=== PATIENT | female | born 1955 | race Caucasian/White ===

== ENCOUNTER 2018-02-11 04:23 | Emergency (ER) | payer OTHER ==
--- OUTSIDE RECORDS SUMMARY | 2018-02-11 04:25 | XMS REPORT ---
:1955 [facility] [address] [place] [address] Care Team Providers Name Role Phone Lopez Nicole Unavailable Unavailable Problems This patient has no known problems. Allergies, Adverse Reactions, Alerts This patient has no known allergies or adverse reactions. Medications This patient has no known medications. Results Test Description Test Time Test Comments Text Results Atomic Results Result Comments Reference Lab Testing 2018-01-10 14:16:00 Test Item Value Reference Range Comments Reference Lab Testing (test Negative Negative Performed at: [facility] code=HELIAG) [address] [id number] Director: Chu Jenkins MD, Phone: [phone] [id number] SURGICAL PATHOLOGY, LEVEL [id number] 13:33:[address] [address] Tel: Laboratory Printed : 01/10/18 1333 BKG DAEMPathology Page: 1 Patient: CORNELIO RUFFIN Birthdate: 1955 Age/Sex: 62/F Spec#: [id number]: Tyrell Patino MD Specimen Date: 01/07/18 Received Date: 01/07/18 Specimen: POLYP, COLON CLINICAL DIAGNOSIS anemia PATHOLOGIC DIAGNOSIS Cecal polyp, polypectomy: - Tubular adenoma. Comment:There is no high grade dysplasia or malignancy present. Pathologist:Crystal Brumfield MD Entered by:01/10/18 - 4856 TIMAGP PROCEDURES: [id number] GROSS DESCRIPTION A. POLYP,COLON CECUM The specimen is received in 10% formalin, and is labeled with the patient's name and "cecumcolon polyp." The specimen consists of two pink-pino soft tissue fragments measuring 1.2 x0.8 x 0.5 cm in aggregate. The largest fragment bisected. The specimen is entirelysubmitted in one cassette. Dictated by: Tina Kimball Entered by: 01/07/18 - 1318 YGP Patient: CORNELIO RUFFIN ReLoc: T4-A MR#: [id number] CONTINUED ON NEXT PAGE Dis: 01/08/18ta: DIS IN [address] [address] Laboratory Printed: 01/10/[address] [place] [address] DAEMPathology Page: 2 Patient : CORNELIO RUFFIN [id number] (Continued) GROSS DESCRIPTION (Continued) MICROSCOPIC DESCRIPTION A microscopic examination was performed to arrive at the diagnostic conclusion reported. Signed ( Electronically Signed) Crystal Brumfield MD 01/10/18 ------ ------ Patient: CORNELIO RUFFIN ReLoc: T4-A MR#: [id number] END OF REPORT Dis: 01/08/18ta: DIS FUPgwjlhedu1166-36-57 11:30:00 Test Item Value Reference Range Comments Chemistry (test 142 mmol/L 136-145 code=NA-T) Chemistry (test 3.6 mmol/L 3.5-5.1 code=K-T) Chemistry (test code=CL) 104 mmol/L 98-107 Chemistry (test 27 mmol/L 23-31 code=CO2) Chemistry (test 15 mmol/L 10-20 code=ANGP) Chemistry (test Less than 4 mg/dL 9.8-20.1 code=BUN) Chemistry (test 0.82 mg/dL 0.6-1.1 code=CREATT) Chemistry (test 71 Reference Range for code=EGFRMDRD) Estimated GFR: Greater than 90 mL/min/1.73 m2NOTE:The MDRD equation has not been validated for use with theelderly (over 70 years of age), women, patientswith serious comorbid condition or persons with extremes ofbody size, muscle mass, or nutritional status. Chemistry (test 143 mg/dL 80-115 code=GLU-T) Chemistry (test code=CA) 8.9 mg/dL 7.8-10.44 Iiertnnud1730-32-62 06:56:00 Test Item Value Reference Range Comments Chemistry (test code=MG) 1.8 mg/dL 1.6-2.6 Comment Add to AM labsComment Add to AM klokMiykzaits1786-07-00 06:56:00 Test Item Value Reference Range Comments Chemistry (test code=CHOL) 184 mg/dl < 200 Desired Chemistry (test code=TRIG) 126 mg/dL Less than 150 Chemistry (test code=HDL) 43 mg/dL >60 Neg Risk Adult HDL levels in terms of risk for Coronary Heart Disease > or Equal to 60 mg/dL Negative Risk < 40 mg/dL HIGH Risk Chemistry (test code=LDL) 116 mg/dL Levels in terms of risk for coronary heart disease: Desirable: Less than 130 mg/dL Borderline High Risk: 130 - 159 mg/dL High Risk: Greater than 160 mg/dL Chemistry (test code=CRISK) 4.3 Less than 4.5 Adult levels in terms of risk for Coronary Heart Disease: Dangerous level: Greater than 8.3 High: 5.6 - 8.3 Average: 3.7 - 5.6 Below average: 2.5 - 3.7 Protection probable: Less than 2.5 Comment Add to AM labsComment Add to AM [id number] 04:30:00 Test Item Value Reference Range Comments Hematology (test code=WBCT) 8.7 thou/uL 4.8-10.8 Hematology (test code=RBCT) 4.24 mill/uL 4.20-5.40 Hematology (test code=HGBT) 8.8 g/dL 12.0-16.0 Hematology (test code=HCTT) 29.4 % 36.0-47.0 Hematology (test code=MCV) 69.3 fl 81.0-99.0 Hematology (test code=MCH) 20.7 pg 27.0-31.0 Hematology (test code=MCHC) 29.8 g/dL 32.0-36.0 Hematology (test code=RDW) 22.6 % 11.5-14.5 Hematology (test code=PLTT) 323 thou/uL 130-400 Hematology (test code=MPV) 5.3 fL 7.4-10.4 Hematology (test code=%NEUT) 73.0 % 42.0-75.0 Hematology (test code=%LYMPH) 18.8 % 21.0-51.0 Hematology (test code=%MONO) 7.1 % 0.0-10.0 Hematology (test code=%EOS) 0.1 % 0.0-10.0 Hematology (test code=%BASO) 1.0 % 0.0-1.0 Hematology (test code=NEUT#) 6.3 thou/uL 1.40-6.50 Hematology (test code=LYMPH#) 1.6 thou/uL 1.20-3.40 Hematology (test code=MONO#) 0.6 thou/uL 0.11-0.59 Hematology (test code=EOS#) 0.0 thou/uL 0.0-0.7 Hematology (test code=BASO#) 0.1 thou/uL 0.0-0.2 [id number] 04:24:00 Test Item Value Reference Range Comments Chemistry (test PARAM.JRT@0424 Refer to Critical Value code=CCC) designated by an *L or *H Chemistry (test 142 mmol/L 136-145 code=NA-T) Chemistry (test 2.9 mmol/L 3.5-5.1 Critical Value! code=K-T) Chemistry (test code=CL) 104 mmol/L 98-107 Chemistry (test 28 mmol/L 23-31 code=CO2) Chemistry (test 13 mmol/L 10-20 code=ANGP) Chemistry (test Less than 4 mg/dL 9.8-20.1 code=BUN) Chemistry (test 0.74 mg/dL 0.6-1.1 code=CREATT) Chemistry (test 80 Reference Range for code=EGFRMDRD) Estimated GFR: Greater than 90 mL/min/1.73 m2NOTE:The MDRD equation has not been validated for use with theelderly (over 70 years of age), women, patientswith serious comorbid condition or persons with extremes ofbody size, muscle mass, or nutritional status. Chemistry (test 89 mg/dL 80-115 code=GLU-T) Chemistry (test code=CA) 8.9 mg/dL 7.8-10.44 Xfgbidlspc2967-78-66 15:26:00 Test Item Value Reference Range Comments Hematology (test code=HGBT) 8.8 g/dL 12.0-16.0 Hematology (test code=HCTT) 29.5 % 36.0-47.0 [id number] SURGICAL PATHOLOGY, LEVEL [id number] 14:22:00 [place] [address] Tel: Laboratory Printed : 01/07/18 1423 [facility] DAEMPathology Page: 1 Patient: CORNELIO RUFFIN Birthdate: 1955 Age/Sex: 62/F Spec#: [id number]: Tyrell Patino MD Specimen Date: 01/06/18 Received Date: 01/06/18 Specimen: GASTRIC BIOPSY CLINICAL DIAGNOSIS anemia PATHOLOGIC DIAGNOSIS A. Stomach, NOS, endoscopic biopsy: - Mild chronic inactive gastritis. - No Helicobacter pylori organisms identified. Comment: No Helicobacter pylori organisms are identified on Diff-Quik special stainperformed with adequate control. B. Esophagus, NOS, endoscopic biopsy: - Mild active esophagitis, consistent with gastroesophageal reflux. - No Fuchs's specialized columnar epithelium identified. - Unremarkable gastric mucosa. Comment: A PAS/Alcian Blue stain with adequate control is negative for fungal organisms andconfirms the absence of intestinal metaplasia. Pathologist: Mike Green MD Entered by:01/07/18 - 1117 LAB.YGP PROCEDURES: 81143/2,62029/2, [address]48[address] Patient: CORNELIO RUFFIN Re01/05/18Loc:T4-A MR#: [id number] CONTINUED ON NEXT PAGE Dis: Sta: ADM IN [address] [address] Tel: Laboratory [facility]ed: [facility]: 2 --------- --- Patient: AUGUSTINCORNELIO [id number] (Continued)------ ------ GROSS DESCRIPTION A. GASTRIC BIOPSY The specimen is received in 10% formalin, and is labeled with the patient's name and"gastric biopsy." The specimen consists of two pink-pino soft tissue fragments measuring 0.4cm in aggregate. The specimen is entirely submitted in cassette A. B. ESOPHAGEAL BIOPSY The specimen is received in 10 % formalin, and is labeled with the patient's name and"esophagus biopsy." The specimen consists oftwo pink-pino soft tissue fragments measuring0.6 cm in aggregate. The specimen is entirely submittedin cassette B. Dictated by: Tina Kimball Entered by: 01/06/18 - 4769 [facility].YGP MICROSCOPIC DESCRIPTION A microscopic examination was performed to arrive at the diagnostic conclusion reported. Signed (Electronically Signed) Mike Green MD 01/07/18 Patient : CORNELIO RUFFIN Re01/05/18Loc: T4- A MR#: [id number] END OF REPORT Dis: Sta: ADMINChemistry - Benji [id number] 13:00:00 Test Item Value Reference Range Comments Chemistry - Benji POSITIVE Negative Testing (test code=ANASC) Chemistry - Benji Negative Negative SYMPHONY SCREEN INCLUDES: Testing (test LONGO, SS-A/Ro, SS-B/La, code=ANASYM) U1RNP,RNP70, SCL-70, CENP, Chela-1 Chemistry - Benji 0.10 Ratio <0.7 Negative Testing (test code=ANASYMQUANT) Chemistry - Benji 120.0 IU/mL <10 Negative Testing (test code=DSDNAIGG) Chemistry - Benji dsDNA Less than Testing (test 10.0 IU/mL=Negative code=DSDNAINTERP) 10.0 - 15.0 IU/mL=Equivocal Greater than 15.0 IU/mL=POSITIVE Chemistry - Benji NEW METHOD Values obtained with Testing (test different assay methods code=ELIAANANEWMETH) CANNOT be usedINTERCHANGEABLY.If in the course of monitoring a patient, the assay methodused for determining levels is changed, a newbaseline/serial monitoring may need to be performed.SEE REFERENCE RANGES FOR NEW METHODOLOGY.Method: Enzyme Linked Fluorescent Immunoassay (Benji)References: [employer] Benji Package Inserts - Directions for, September,October 2016, [place]. Chemistry - Benji Fhukfkf4264-60-56 13:00:00 Test Item Value Reference Range Comments Chemistry - Benji Testing 0.6 U/mL <4 Negative (test code=M2T) Chemistry - Benji Testing Less than 4.0 (test qklr=WOPNJUH892) U/mL=Negative 4.0 - 6.0 U/mL=Equivocal Greater than 6.0 U/mL=POSITIVE Chemistry - Benji Testing NEW METHOD Values obtained with (test code=ELIAVASNEW) different assay methods CANNOT be usedINTERCHANGEABLY.If in the course of monitoring a patient, the assay methodused for determining levels is changed, a newbaseline/serial monitoring may need to be performed.SEE REFERENCE RANGES FOR NEW METHODOLOGY.Method: Enzyme Linked Fluorescent Immunoassay (Benji)References: [employer] Benji Package Inserts - Directions for, September,October 2016, [place]. Chemistry - Benji Testing 0.6 U/mL <4 Negative (test code=M2T) Chemistry - Benji Testing Less than 4.0 (test wncv=JIEYSMD511) U/mL=Negative 4.0 - 6.0 U/mL=Equivocal Greater than 6.0 U/mL=POSITIVE Chemistry - Benji Testing NEW METHOD Values obtained with (test code=ELIAVASNEW) different assay methods CANNOT be usedINTERCHANGEABLY.If in the course of monitoring a patient, the assay methodused for determining levels is changed, a newbaseline/serial monitoring may need to be performed.SEE REFERENCE RANGES FOR NEW METHODOLOGY.Method: Enzyme Linked Fluorescent Immunoassay (Benji)References: [employer] Benji Package Inserts - Directions forUse, September, October 2016, [place]. Chemistry - Benji [id number] 13:00:00 Test Item Value Reference Range Comments Chemistry - Benji Testing CENP, Chela-1, RNP70, (test code=ELIAANAINTERP) Scl-70, Longo, SSA/Ro, SSB/La IgGAntibodies: Less than 7.0 Benji U/mL=Negative 7.0 - 10.0 Benji U/mL=Equivocal Greater than 10.0 Benji U/mL=TIPEOXTUR9YDQ IgG: Less than 5.0 Benji U/mL=Negative 5.0 - 10.0 Benji U/mL=Equivocal Greater than 10.0 Benji U/mL=POSITIVE Chemistry - Benji [id number] 12:38:00 Test Item Value Reference Range Comments Chemistry - Benji Testing (test code=CELTTGIGA) 0.4 EliAU/mL <7 Negative Comment add onChemistry - Benji [id number] 12:38:00 Test Item Value Reference Range Comments Chemistry - Benji Testing (test code=CELTTGIGG) 0.6 EliAU/mL <7 Negative Comment add onChemistry - Benji [id number] 12:38:00 Test Item Value Reference Range Comments Chemistry - Benji Testing Less than (test zrkt=OANVDQQ934) 7.0 Benji U/mL=Negative 7.0 - 10.0 Benji U/mL=Equivocal Greater than 10.0 Benji U/mL=POSITIVE Comment add onChemistry - [id number] 12:33:00 Test Item Value Reference Range Comments Chemistry - Specials (test Non-Reactive NonReactive The panel screens for HIV-1 code=HIVT) p24 Antigen HIV-1/HIV-2Antibody. Vsjnltsxpz0664-28-55 10:27:00 Test Item Value Reference Range Comments Immunology (test code=SYPHABT) Nonreactive Nonreactive Kjmtfqggtw3523-09-15 10:25:00 Test Item Value Reference Range Comments Hematology (test code=WBCT) 8.1 thou/uL 4.8-10.8 Hematology (test code=RBCT) 4.12 mill/uL 4.20-5.40 Hematology (test code=HGBT) 8.5 g/dL 12.0-16.0 Hematology (test code=HCTT) 28.9 % 36.0-47.0 Hematology (test code=MCV) 70.1 fl 81.0-99.0 Hematology (test code=MCH) 20.6 pg 27.0-31.0 Hematology (test code=MCHC) 29.4 g/dL 32.0-36.0 Hematology (test code=RDW) 22.4 % 11.5-14.5 Hematology (test code=PLTT) 315 thou/uL 130-400 Hematology (test code=MPV) 5.7 fL 7.4-10.4 Hematology (test code=%NEUT) 66.6 % 42.0-75.0 Hematology (test code=%LYMPH) 24.7 % 21.0-51.0 Hematology (test code=%MONO) 8.1 % 0.0-10.0 Hematology (test code=%EOS) 0.4 % 0.0-10.0 Hematology (test code=%BASO) 0.2 % 0.0-1.0 Hematology (test code=NEUT#) 5.4 thou/uL 1.40-6.50 Hematology (test code=LYMPH#) 2.0 thou/uL 1.20-3.40 Hematology (test code=MONO#) 0.7 thou/uL 0.11-0.59 Hematology (test code=EOS#) 0.0 thou/uL 0.0-0.7 Hematology (test code=BASO#) 0.0 thou/uL 0.0-0.2 Hematology (test code=OH) MODERATE=15-30 cells (100X) 0-5/hpf Hematology (test code=HYPO) MODERATE=16-30 cells (100X) 0-5/hpf Hematology (test code=POLY) SLIGHT=2-3 cells (100X) 0-2/hpf Hematology (test code=OV) MODERATE=6-15 cells (100X) 0-1/hpf Hematology (test code=PCOMMENT) Appears Adequate Urhetgcxy0551-13-13 10:07:00 Test Item Value Reference Range Comments Chemistry (test code=NA-T) 141 mmol/L 136-145 Chemistry (test code=K-T) 3.2 mmol/L 3.5-5.1 Chemistry (test code=CL) 105 mmol/L 98-107 Chemistry (test code=CO2) 28 mmol/L 23-31 Chemistry (test code=ANGP) 11 mmol/L 10-20 Chemistry (test code=BUN) 4 mg/dL 9.8-20.1 Chemistry (test code=CREATT) 0.72 mg/dL 0.6-1.1 Chemistry (test 82 Reference Range for Estimated code=EGFRMDRD) GFR: Greater than 90 mL/min/1.73 m2NOTE:The MDRD equation has not been validated for use with theelderly (over 70 years of age), women, patientswith serious comorbid condition or persons with extremes ofbody size, muscle mass, or nutritional status. Chemistry (test code=GLU-T) 79 mg/dL 80-115 Chemistry (test code=CA) 8.6 mg/dL 7.8-10.44 Occult Blood, Stool SCREEN (3)2018-01-06 17:56:00 Test Item Value Reference Range Comments Occult Blood, Stool SCREEN (3) (test code=OCCSTS) IFOB Occult Blood, Stool SCREEN (3) (test code=OCCSTS1) N Comment [id number] 16:59:00 Test Item Value Reference Range Comments Hematology (test code=WBCT) 9.1 thou/uL 4.8-10.8 Hematology (test code=RBCT) 3.97 mill/uL 4.20-5.40 Hematology (test code=HGBT) 8.2 g/dL 12.0-16.0 Hematology (test code=HCTT) 27.7 % 36.0-47.0 Hematology (test code=MCV) 69.9 fl 81.0-99.0 Hematology (test code=MCH) 20.7 pg 27.0-31.0 Hematology (test code=MCHC) 29.6 g/dL 32.0-36.0 Hematology (test code=RDW) 22.3 % 11.5-14.5 Hematology (test code=PLTT) 311 thou/uL 130-400 Hematology (test code=MPV) 10.9 fL 7.4-10.4 Chemistry - Dnipabgb2483-72-60 13:59:00 Test Item Value Reference Range Comments Chemistry - Specials (test Non-Reactive NonReactive code=HBSABINT) Chemistry - Specials (test 0.37 mIU/mL REFERENCE RANGES for HBSAB code=HBSABCONC) (Hepatitis B Surface Antibody):Nonreactive: 0.0 - <8.0 Individual is considered NOT immune to HBV infectionIndeterminate: >=8.0 - <12.0 The immune status of the individual should be further assessed by follow-up testing.Reactive: >=12.0 Individual is considered immune to HBV infection. [id number] 12:26:00 Test Item Value Reference Range Comments Hematology (test code=WBCT) 8.4 thou/uL 4.8-10.8 Hematology (test code=RBCT) 4.03 mill/uL 4.20-5.40 Hematology (test code=HGBT) 8.3 g/dL 12.0-16.0 Hematology (test code=HCTT) 28.2 % 36.0-47.0 Hematology (test code=MCV) 70.0 fl 81.0-99.0 Hematology (test code=MCH) 20.7 pg 27.0-31.0 Hematology (test code=MCHC) 29.5 g/dL 32.0-36.0 Hematology (test code=RDW) 22.7 % 11.5-14.5 Hematology (test code=PLTT) 315 thou/uL 130-400 Hematology (test code=MPV) 5.3 fL 7.4-10.4 Type [id number] 11:29:00 Test Item Value Reference Range Comments Blood Type Rh (test code=BT) O POSITIVE Antibody Screen (test code=ABSC) NEGATIVE Received Blood Or Been w/in Past 90 Days? UNKNOWNReceived Blood Or Been w/in Past 90 Days? NOScheduled Surgery Date: NO SURGERYIs Surgery Date Greater than 7 days from now? NOPacked Cells - [id number] 11:29 :[id number] [facility] [id number] 05:27:00 Test Item Value Reference Range Comments Chemistry (test code=NA-T) 143 mmol/L 136-145 Chemistry (test code=K-T) 3.2 mmol/L 3.5-5.1 Chemistry (test code=CL) 107 mmol/L 98-107 Chemistry (test code=CO2) 30 mmol/L 23-31 Chemistry (test code=ANGP) 9 mmol/L 10-20 Chemistry (test code=BUN) 8 mg/dL 9.8-20.1 Chemistry (test code=CREATT) 0.76 mg/dL 0.6-1.1 Chemistry (test 77 Reference Range for Estimated code=EGFRMDRD) GFR: Greater than 90 mL/min/1.73 m2NOTE:The MDRD equation has not been validated for use with theelderly (over 70 years of age), women, patientswith serious comorbid condition or persons with extremes ofbody size, muscle mass, or nutritional status. Chemistry (test code=GLU-T) 91 mg/dL 80-115 Chemistry (test code=CA) 8.1 mg/dL 7.8-10.44 Chemistry (test code=TBILI) 1.0 mg/dL 0.2-1.2 Chemistry (test code=TP) 5.5 g/dL 6.0-8.3 Chemistry (test code=ALB) 3.2 g/dL 3.4-4.8 Chemistry (test code=GLOB) 2.3 g/dL 2.4-3.5 Chemistry (test code=AG) 1.4 g/dL 1.2-2.2 Chemistry (test code=ALP) 113 U/L 40-150 Chemistry (test code=AST) 144 U/L 5-34 Chemistry (test code=ALT) 149 U/L 8-55 Sdwekqnopc5147-97-67 05:18:00 Test Item Value Reference Range Comments Hematology (test code=WBCT) 7.5 thou/uL 4.8-10.8 Hematology (test code=RBCT) 3.33 mill/uL 4.20-5.40 Hematology (test code=HGBT) 6.4 g/dL 12.0-16.0 Hematology (test code=HCTT) 22.2 % 36.0-47.0 Hematology (test code=MCV) 66.5 fl 81.0-99.0 Hematology (test code=MCH) 19.1 pg 27.0-31.0 Hematology (test code=MCHC) 28.8 g/dL 32.0-36.0 Hematology (test code=RDW) 20.7 % 11.5-14.5 Hematology (test code=PLTT) 310 thou/uL 130-400 Hematology (test code=MPV) 10.7 fL 7.4-10.4 Hematology (test code=%NEUT) 61.4 % 42.0-75.0 Hematology (test code=%LYMPH) 31.4 % 21.0-51.0 Hematology (test code=%MONO) 7.0 % 0.0-10.0 Hematology (test code=%EOS) 0.2 % 0.0-10.0 Hematology (test code=%BASO) 0.1 % 0.0-1.0 Hematology (test code=NEUT#) 4.6 thou/uL 1.40-6.50 Hematology (test code=LYMPH#) 2.4 thou/uL 1.20-3.40 Hematology (test code=MONO#) 0.5 thou/uL 0.11-0.59 Hematology (test code=EOS#) 0.0 thou/uL 0.0-0.7 Hematology (test code=BASO#) 0.0 thou/uL 0.0-0.2 Chemistry - Wzfnmxno3544-34-00 00:59:00 Test Item Value Reference Range Comments Chemistry - Specials (test code=THEPAIGM) Non-Reactive NonReactive Chemistry - Specials (test code=THBSAG) Non-Reactive S/CO NonReactive Chemistry - Specials (test code=INTHBCM) Non-Reactive NonReactive Chemistry - Specials (test code=INTHEPC) Non-Reactive NonReactive Chemistry - BNP, HgbA1c, [id number] 19:45:00 Test Item Value Reference Range Comments Chemistry - BNP, HgbA1c, PTHi (test code=BNP) 100.4 pg/mL 0-100 Comment add wiVtruklnhk6538-67-08 19:38:00 Test Item Value Reference Range Comments Chemistry (test 1.5 ng/mL 0-6.6 code=CKMBM-T) Chemistry (test Less than 0.010 < 0.028 code=TROPI-T) ng/mL Reference Range 0.00 - 0.028 ng/mL Negative 0.029 - 0.29 ng/mL Indeterminate Greater or Equal to 0.3 ng/mL Strongly suggests OH Comment add onChemistry - Noyuidaj0226-77-92 18:21:00 Test Item Value Reference Range Comments Chemistry - Specials (test code=LINDSAY) 24.27 ng/mL 10-291 Qcezawmkex4589-87-47 18:14:00 Test Item Value Reference Range Comments Hematology (test code=WBCT) 7.0 thou/uL 4.8-10.8 Hematology (test code=RBCT) 3.73 mill/uL 4.20-5.40 Hematology (test code=HGBT) 7.1 g/dL 12.0-16.0 Hematology (test code=HCTT) 24.6 % 36.0-47.0 Hematology (test code=MCV) 66.1 fl 81.0-99.0 Hematology (test code=MCH) 19.1 pg 27.0-31.0 Hematology (test code=MCHC) 29.0 g/dL 32.0-36.0 Hematology (test code=RDW) 20.7 % 11.5-14.5 Hematology (test code=PLTT) 335 thou/uL 130-400 Hematology (test code=MPV) 5.0 fL 7.4-10.4 Hematology (test code=%NEUT) 72.6 % 42.0-75.0 Hematology (test code=%LYMPH) 20.6 % 21.0-51.0 Hematology (test code=%MONO) 6.2 % 0.0-10.0 Hematology (test code=%EOS) 0.2 % 0.0-10.0 Hematology (test code=%BASO) 0.4 % 0.0-1.0 Hematology (test code=NEUT#) 5.1 thou/uL 1.40-6.50 Hematology (test code=LYMPH#) 1.4 thou/uL 1.20-3.40 Hematology (test code=MONO#) 0.4 thou/uL 0.11-0.59 Hematology (test code=EOS#) 0.0 thou/uL 0.0-0.7 Hematology (test code=BASO#) 0.0 thou/uL 0.0-0.2 Hematology (test code=AN) MODERATE=16-30 cells (100X) 0-5/hpf Hematology (test code=PO) SLIGHT=6-15 cells (100X) 0-5/hpf Hematology (test code=OH) MODERATE=15-30 cells (100X) 0-5/hpf Hematology (test code=HYPO) SLIGHT=6-15 cells (100X) 0-5/hpf Hematology (test code=POLY) MODERATE=3-4 cells (100X) 0-2/hpf Hematology (test code=SC) SLIGHT=2-5 cells (100X) 0-1/hpf Hematology (test code=OV) SLIGHT=2-5 cells (100X) 0-1/hpf Hematology (test code=EL) SLIGHT=2-5 cells (100X) 0-1/hpf Hematology (test code=TE) SLIGHT=2-5 cells (100X) 0-1/hpf Hematology (test code=PCOMMENT) Appears Adequate Lcqpwqfrp0860-60-64 17:59:00 Test Item Value Reference Range Comments Chemistry (test code=NA-T) 142 mmol/L 136-145 Chemistry (test code=K-T) 4.1 mmol/L 3.5-5.1 Chemistry (test code=CL) 106 mmol/L 98-107 Chemistry (test code=CO2) 27 mmol/L 23-31 Chemistry (test code=ANGP) 13 mmol/L 10-20 Chemistry (test code=BUN) 13 mg/dL 9.8-20.1 Chemistry (test code=CREATT) 0.80 mg/dL 0.6-1.1 Chemistry (test 73 Reference Range for Estimated code=EGFRMDRD) GFR: Greater than 90 mL/min/1.73 m2NOTE:The MDRD equation has not been validated for use with theelderly (over 70 years of age), women, patientswith serious comorbid condition or persons with extremes ofbody size, muscle mass, or nutritional status. Chemistry (test code=GLU-T) 83 mg/dL 80-115 Chemistry (test code=CA) 8.6 mg/dL 7.8-10.44 Chemistry (test code=TBILI) 0.9 mg/dL 0.2-1.2 Chemistry (test code=TP) 6.4 g/dL 6.0-8.3 Chemistry (test code=ALB) 3.7 g/dL 3.4-4.8 Chemistry (test code=GLOB) 2.7 g/dL 2.4-3.5 Chemistry (test code=AG) 1.4 g/dL 1.2-2.2 Chemistry (test code=ALP) 132 U/L 40-150 Chemistry (test code=AST) 340 U/L 5-34 Chemistry (test code=ALT) 220 U/L 8-55 [id number] 17:59:00 Test Item Value Reference Range Comments Chemistry (test code=IRON) 15 ug/dL 50-170 [place]7577-58-65 17:59:00 Test Item Value Reference Range Comments Chemistry (test code=TIBC) 386 mcg/dL 265-497 Szajncxgjgy7996-94-01 17:50:00 Test Item Value Reference Range Comments Coagulation (test 13.3 SEC 12.0-14.7 code=PT-T) Coagulation (test 1.0 ATTENTION: READ code=INR) CAREFULLY -The recommended therapeutic ranges for oral anticoagulanttreatments are: Low Intensity: 1.5 - 2.0 Moderate Intensity: 2.0 - 3.0 High Intensity (1): 2.5 - 3.5 High Intensity (2): 3.0 - 4.0 CRITICAL: > 4.0 Anticoagulant? NONEMedical Necessity SUSPECT COAGULOPATHYAnticoagulant? NONEMedical Necessity: SUSP [id number] 17:50:00 Test Item Value Reference Range Comments Coagulation (test code=PTT) 23.4 SEC 22.9-36.1 Anticoagulant? NONEMedical Necessity SUSPECT COAGULOPATHYAnticoagulant? NONEMedical Necessity: SUSP COAG
[2018-02-11] MEDS ORDERED: DIAZEPAM 10 MG/2 ML INJ SYRINGE ONE (05:27)
--- NOTE | 2018-02-11 06:22 | ER ---
Nurse's Notes [facility] Name: Irma Cain Age: 63 yrs Sex: Female : 1955 Arrival Date: 02/11/2018 Time: 04:26 Bed 17 Private MD: Diagnosis: Acute Left Leg Pain Presentation: 02/11 04:25 Presenting complaint: EMS states: "Patient c/o left knee pain that radiates down her bs1 leg and hip, denies any trauma." Patients states pain started about an hour ago. 04:25 Transition of care: patient was not received from another setting of care. Onset of bs1 symptoms was February 11, 2018 at 03:00. Risk Assessment: Do you want to hurt yourself or someone else? Patient reports no desire to harm self or others. Initial Sepsis Screen: Does the patient meet any 2 criteria? No. Patient's initial sepsis screen is negative. Does the patient have a suspected source of infection? No. Patient's initial sepsis screen is negative. Care prior to arrival: None. 04:25 Method Of Arrival: EMS: [facility] bs1 04:25 Acuity: FELA 3 bs1 Historical: - Allergies: 04:41 Aspirin; bs1 04:41 Neosporin (tqk-ona-gzfpn); bs1 04:41 Talwin; bs1 04:41 Tylenol; bs1 04:41 NSAIDS; bs1 - Home Meds: 04:41 Adderall XR 20 mg Oral cp24 1 cap 2 times daily [Active]; Albuterol Inhl [Active]; bs1 alprazolam 1 mg Oral tab 1 tab 3 times per day [Active]; Breo Ellipta 100-25 mcg/dose inhalation dsdv [Active]; Daliresp 500 mcg Oral tab 1 tab once daily [Active]; Deplin (algal oil) Oral [Active]; Effexor XR 150 mg Oral cp24 2 cap once daily [Active]; omeprazole 40 mg Oral cpDR 1 cap once daily [Active]; prednisone 10 mg Oral tab 1 tab 2 times per day [Active]; Ventolin Rotahaler/Rotacaps Inhl [Active]; - PMHx: 04:41 Anemia; Asthma; Depression; Osteoporosis; bs1 05:06 basal cell carcinoma; bs1 - PSHx: 04:41 ; Cholecystectomy; Tubal ligation; bs1 05:06 rotator cuff sx x2 on right; basal cell carcinoma removed from left side of neck; bs1 - Immunization history:: Adult Immunizations up to date. - Social history:: Smoking status: Patient/guardian denies using tobacco. - Ebola Screening: : Patient negative for fever greater than or equal to 101.5 degrees Fahrenheit, and additional compatible Ebola Virus Disease symptoms Patient denies exposure to infectious person. - Family history:: not pertinent. - Hospitalizations: : No recent hospitalization is reported. Screenin:22 Abuse screen: Denies threats or abuse. Denies injuries from another. Nutritional bs1 screening: No deficits noted. Tuberculosis screening: No symptoms or risk factors identified. Fall Risk No fall in past 12 months (0 pts). No secondary diagnosis (0 pts). No IV (0 pts). Ambulatory Aid- None/Bed Rest/Nurse Assist (0 pts). Gait- Weak (10 pts.). Mental Status- Oriented to own ability (0 pts). Total Rogers Fall Scale indicates No Risk (0-24 pts). Assessment: 05:13 General: Appears uncomfortable, Behavior is cooperative, anxious. Pain: Complains of bs1 pain in left knee/leg Pain radiates to ankle/hip. Neuro: Level of Consciousness is awake, alert, obeys commands, Oriented to person, place, time, situation, Appropriate for age. Cardiovascular: Denies chest pain, shortness of breath, Heart tones S1 S2 present Capillary refill < 3 seconds Patient's skin is warm and dry. Respiratory: Airway is patent Trachea midline Respiratory effort is even, unlabored, Respiratory pattern is regular, symmetrical, Breath sounds are clear bilaterally. GI: No signs and/or symptoms were reported involving the gastrointestinal system. : No signs and/or symptoms were reported regarding the genitourinary system. EENT: No signs and/or symptoms were reported regarding the EENT system. Derm: Skin is intact. Musculoskeletal: Circulation, motion, and sensation intact. Capillary refill < 3 seconds, Range of motion: limited in left leg/knee Reports pain in left leg/knee. 06:20 Reassessment: Patient appears in no apparent distress at this time. Patient and/or bs1 family updated on plan of care and expected duration. Pain level reassessed. Patient is alert, oriented x 3, equal unlabored respirations, skin warm/dry/pink. Vital Signs: 04:25 BP 179 / 78; Pulse 86; Resp 16; Temp 97.8(O); Pulse Ox 97% on R/A; Weight 54.43 kg; bs1 Height 5 ft. 1 in. (154.94 cm); Pain 8/10; 05:25 BP 161 / 64; Pulse 78; Resp 16 S; Pulse Ox 95% on R/A; Pain 8/10; bs1 06:20 BP 139 / 56; Pulse 80; Resp 16 S; Pulse Ox 95% on R/A; bs1 04:25 Body Mass Index 22.67 (54.43 kg, 154.94 cm) bs1 ED Course: 04:26 Patient arrived in ED. 04:26 Chu Boucher MD is Attending Physician. africa 04:37 Leida Jasso, CANDACE is Primary Nurse. bs1 04:39 Triage completed. bs1 05:29 X-ray completed. Portable x-ray completed in exam room. Patient tolerated procedure kw well. 05:30 Patient has correct armband on for positive identification. Bed in low position. Call bs1 light in reach. Side rails up X 1. Pulse ox on. NIBP on. 05:30 Arm band placed on right wrist. bs1 06:23 Assist provider with bone marrow aspiration. Patient did not have IV access during this bs1 emergency room visit. 06:30 Knee Left 3 View XRAY In Process Unspecified. EDMS Administered Medications: 05:29 Drug: Valium 2 mg Route: IM; Site: left deltoid; bs1 06:23 Follow up: Response: No adverse reaction bs1 Outcome: 06:21 Discharge ordered by . hi 06:33 Patient left the ED. bs1 Signatures: Dispatcher [employer] EDMS Zoila Pelaez RN RN Coco Corona Chu Boucher MD MD wa Salazar, Brittany, CANDACE RN bs1
--- NOTE | 2018-02-11 06:22 | EDPHYS ---
Physician Documentation [facility] Name: Irma Cain Age: 63 yrs Sex: Female : 1955 Arrival Date: 02/11/2018 Time: 04:26 Bed 17 Private MD: ED Physician Chu Boucher HPI: 02/11 06:07 This 63 yrs old Female presents to ER via EMS with complaints of Leg Pain. wa 06:07 The patient presents with pain, that is acute. The complaints affect the left knee. wa Context: denies fall. . Onset: The symptoms/episode began/occurred today. Modifying factors: The symptoms are alleviated by nothing. the symptoms are aggravated by movement, bending knee. Associated signs and symptoms: The patient has no apparent associated signs or symptoms. Treatment prior to arrival includes: no previous treatment. Severity of symptoms: At their worst the symptoms were moderate, in the emergency department the symptoms are unchanged. The patient has not experienced similar symptoms in the past. The patient has not recently seen a physician. Historical: - Allergies: 04:41 Aspirin; bs1 04:41 Neosporin (dai-dkw-xalds); bs1 04:41 Talwin; bs1 04:41 Tylenol; bs1 04:41 NSAIDS; bs1 - Home Meds: 04:41 Adderall XR 20 mg Oral cp24 1 cap 2 times daily [Active]; Albuterol Inhl [Active]; bs1 alprazolam 1 mg Oral tab 1 tab 3 times per day [Active]; Breo Ellipta 100-25 mcg/dose inhalation dsdv [Active]; Daliresp 500 mcg Oral tab 1 tab once daily [Active]; Deplin (algal oil) Oral [Active]; Effexor XR 150 mg Oral cp24 2 cap once daily [Active]; omeprazole 40 mg Oral cpDR 1 cap once daily [Active]; prednisone 10 mg Oral tab 1 tab 2 times per day [Active]; Ventolin Rotahaler/Rotacaps Inhl [Active]; - PMHx: 04:41 Anemia; Asthma; Depression; Osteoporosis; bs1 05:06 basal cell carcinoma; bs1 - PSHx: 04:41 ; Cholecystectomy; Tubal ligation; bs1 05:06 rotator cuff sx x2 on right; basal cell carcinoma removed from left side of neck; bs1 - Immunization history:: Adult Immunizations up to date. - Social history:: Smoking status: Patient/guardian denies using tobacco. - Ebola Screening: : Patient negative for fever greater than or equal to 101.5 degrees Fahrenheit, and additional compatible Ebola Virus Disease symptoms Patient denies exposure to infectious person. - Family history:: not pertinent. - Hospitalizations: : No recent hospitalization is reported. ROS: 06:09 Constitutional: Negative for fever, chills, and weight loss, Eyes: Negative for injury, wa pain, redness, and discharge, ENT: Negative for injury, pain, and discharge, Neck: Negative for injury, pain, and swelling, Cardiovascular: Negative for chest pain, palpitations, and edema, Respiratory: Negative for shortness of breath, cough, wheezing, and pleuritic chest pain, Abdomen/GI: Negative for abdominal pain, nausea, vomiting, diarrhea, and constipation, Back: Negative for injury and pain, : Negative for injury, bleeding, discharge, and swelling, Skin: Negative for injury, rash, and discoloration, Neuro: Negative for headache, weakness, numbness, tingling, and seizure, Psych: Negative for depression, anxiety, suicide ideation, homicidal ideation, and hallucinations. 06:09 MS/extremity: Positive for pain, of the left leg. Exam: 06:10 Constitutional: This is a well developed, well nourished patient who is awake, alert, wa and in no acute distress. Head/Face: Normocephalic, atraumatic. Eyes: Pupils equal round and reactive to light, extra-ocular motions intact. Lids and lashes normal. Conjunctiva and sclera are non-icteric and not injected. Cornea within normal limits. Periorbital areas with no swelling, redness, or edema. ENT: Nares patent. No nasal discharge, no septal abnormalities noted. Tympanic membranes are normal and external auditory canals are clear. Oropharynx with no redness, swelling, or masses, exudates, or evidence of obstruction, uvula midline. Mucous membranes moist. Neck: Trachea midline, no thyromegaly or masses palpated, and no cervical lymphadenopathy. Supple, full range of motion without nuchal rigidity, or vertebral point tenderness. No Meningismus. Chest/axilla: Normal chest wall appearance and motion. Nontender with no deformity. No lesions are appreciated. Cardiovascular: Regular rate and rhythm with a normal S1 and S2. No gallops, murmurs, or rubs. Normal PMI, no JVD. No pulse deficits. Respiratory: Lungs have equal breath sounds bilaterally, clear to auscultation and percussion. No rales, rhonchi or wheezes noted. No increased work of breathing, no retractions or nasal flaring. Abdomen/GI: Soft, non-tender, with normal bowel sounds. No distension or tympany. No guarding or rebound. No evidence of tenderness throughout. Back: No spinal tenderness. No costovertebral tenderness. Full range of motion. Skin: Warm, dry with normal turgor. Normal color with no rashes, no lesions, and no evidence of cellulitis. Neuro: Awake and alert, GCS 15, oriented to person, place, time, and situation. Cranial nerves II-XII grossly intact. Motor strength 5/5 in all extremities. Sensory grossly intact. Cerebellar exam normal. Normal gait. Psych: Awake, alert, with orientation to person, place and time. Behavior, mood, and affect are within normal limits. 06:10 Musculoskeletal/extremity: Extremities: grossly normal except: noted in the left knee: pain, soft calf. non-tender. Vital Signs: 04:25 BP 179 / 78; Pulse 86; Resp 16; Temp 97.8(O); Pulse Ox 97% on R/A; Weight 54.43 kg; bs1 Height 5 ft. 1 in. (154.94 cm); Pain 8/10; 05:25 BP 161 / 64; Pulse 78; Resp 16 S; Pulse Ox 95% on R/A; Pain 8/10; bs1 06:20 BP 139 / 56; Pulse 80; Resp 16 S; Pulse Ox 95% on R/A; bs1 04:25 Body Mass Index 22.67 (54.43 kg, 154.94 cm) bs1 MDM: 04:26 Patient medically screened. pa 06:11 Differential diagnosis: spasm? will treat pain. reassess. Data reviewed: vital signs, pa nurses notes. 06:19 Response to treatment: the patient's symptoms have markedly improved after treatment. pa ED course: pain improved. states will follow up closely with her PMD. 02/11 05:09 Order name: Knee Left 3 View XRAY pa Administered Medications: 05:29 Drug: Valium 2 mg Route: IM; Site: left deltoid; bs1 06:23 Follow up: Response: No adverse reaction bs1 Disposition: 02/11/18 06:21 Discharged to Home. Impression: Acute Left Leg Pain. - Condition is Stable. - Discharge Instructions: Knee Pain, Rxlt-mh-Nfgk. - Medication Reconciliation Form, Thank You Letter, Antibiotic Education, Prescription Opioid Use form. - Follow up: Private Physician; When: 1 - 2 days; Reason: Re-evaluation by your physician. - Problem is new. - Symptoms have improved. - Notes: follow up with your doctor for further evaluation of your knee pain Signatures: Dispatcher [employer] EDMS Chu Boucher MD MD wa Salazar, Brittany RN RN bs1 Corrections: (The following items were deleted from the chart) 06:33 06:21 02/11/2018 06:21 Discharged to Home. Impression: Acute Left Leg Pain. Condition bs1 is Stable. Forms are Medication Reconciliation Form, Thank You Letter, Antibiotic Education, Prescription Opioid Use. Follow up: Private Physician; When: 1 - 2 days; Reason: Re-evaluation by your physician. Problem is new. Symptoms have improved. africa
[2018-02-11 06:37] VITALS: TEMP 97.8
[2018-02-11 06:38] VITALS: O2SAT 95
[2018-02-11 06:39] VITALS: BP 139/56
--- NOTE | 2018-02-11 09:39 | RAD REPORT ---
EXAM DESCRIPTION: RAD - Knee Left 3 View - 02/11/2018 6:30 am CLINICAL HISTORY: Left knee pain FINDINGS: No fracture or dislocation is seen. A small joint effusion is suspected. Mild joint space narrowing involves medial and lateral compartme nts. The bones are osteoporotic.
== END 2018-02-11 06:33 | disposition home or self-care (01) ==
LOC: ER 04:23
DX: M79.605 Pain in left leg (principal); J45.909 Unspecified asthma, uncomplicated; F32.9 Major depressive disorder, single episode, unspecified; Z85.828 Personal history of other malignant neoplasm of skin; Z88.6 Allergy status to analgesic agent; Z88.8 Allergy status to other drugs, medicaments and biological substances
CPT/HCPCS: 73562; 96372; 99284; J3360

== ENCOUNTER 2018-03-10 14:42 | Emergency (ER) | payer OTHER ==
--- OUTSIDE RECORDS SUMMARY | 2018-03-10 14:45 | XMS REPORT ---
:1955 Author Organization [facility] Address [address] [place] [address] [address] [place] [address] Care Team Providers Name Role Phone Lopez [...] Lab Testing (test Negative Negative Performed at: - [facility] code=HELIAG) [address] [id number] Director: Chu Jenkins MD, Phone: [phone] SURGICAL PATHOLOGY, LEVEL [id number] 13:33:[address] [address] Tel: Laboratory Printed : 01/10/18 1333 MAHAD DAEMPathology Page: 1 Patient: CORNELIO RUFFIN Birthdate: 1955 Age/Sex: 62/F Spec#: [id number]: Tyrell Patino MD Specimen Date: 01/07/18 Received Date: 01/07/18 Specimen: POLYP, COLON CLINICAL DIAGNOSIS anemia PATHOLOGIC DIAGNOSIS Cecal polyp, polypectomy: - Tubular adenoma. Comment:There is no high grade dysplasia or malignancy present. Pathologist:Crystal Brumfield MD Entered by:01/10/18 - 3566 LAB.YGP PROCEDURES: [id number] GROSS DESCRIPTION A. POLYP,COLON CECUM The specimen is received in 10% formalin, and is labeled with the patient's name and "cecumcolon polyp." The specimen consists of two pink-pino soft tissue fragments measuring 1.2 x0.8 x 0.5 cm in aggregate. The largest fragment bisected. The specimen is entirelysubmitted in one cassette. Dictated by: Tina Kimball Entered by: 01/07/18 - 1312 LAB.YGP Patient: CORNELIO RUFFIN ReLoc: T4-A MR#: [id number] CONTINUED ON NEXT PAGE Dis: 01/08/18ta: DIS IN [address] [address] Laboratory Printed: 01/10/18 [facility] DAEMPathology Page: 2 Patient : CORNELIO RUFFIN [id number] (Continued) GROSS DESCRIPTION (Continued) MICROSCOPIC DESCRIPTION A microscopic examination was performed to arrive at the diagnostic conclusion reported. Signed ( Electronically Signed) Crystal Brumfield MD 01/10/18 ------ ------ Patient: CORNELIO RUFFIN ReLoc: T4-A MR#: [id number] END OF REPORT Dis: 01/08/18ta: DIS [id number] 11:30:00 Test Item Value Reference Range Comments [...] code=GLU-T) Chemistry (test code=CA) 8.9 mg/dL 7.8-10.44 [id number] 06:56:00 Test Item Value Reference Range Comments Chemistry (test code=MG) 1.8 mg/dL 1.6-2.6 Comment Add to AM labsComment Add to AM [id number] 06:56:00 Test Item Value Reference Range Comments [...] Add to AM labsComment Add to AM [id number] 04:30:00 Test Item Value Reference Range Comments [...] 0.0-0.7 Hematology (test code=BASO#) 0.1 thou/uL 0.0-0.2 [id number] 04:24:00 Test Item Value Reference Range Comments [...] code=GLU-T) Chemistry (test code=CA) 8.9 mg/dL 7.8-10.44 [id number] 15:26:00 Test Item Value Reference Range Comments Hematology (test code=HGBT) 8.8 g/dL 12.0-16.0 Hematology (test code=HCTT) 29.5 % 36.0-47.0 [id number] SURGICAL PATHOLOGY, LEVEL [id number] 14:22:00 [place] [address] Tel: ( [phone] Laboratory Printed : 01/07/18 [facility] DAEMPathology Page: 1 Patient: CORNELIO RUFFIN Birthdate: 1955 Age/Sex: 62/F Spec#: [id number]: Tyrell Patino MD Specimen Date: [...] MD Entered by:01/07/18 - 1117 LAB.YGP PROCEDURES: 15338/2,72689/2, 09702 Patient: CORNELIO RUFFIN Re01/05/18Loc:T4-A MR#: [id number] CONTINUED ON NEXT PAGE Dis: Sta: ADM IN [address] [address] Tel: Laboratory Printed: [address] [place] [address] [facility] [place] Page: 2 --------- --- Patient: CORNELIO RUFFIN [id number] (Continued)------ ------ GROSS DESCRIPTION A. GASTRIC BIOPSY [...] by: Tina Kimball Entered by: 01/06/18 - 1639 [facility].YGP MICROSCOPIC DESCRIPTION A microscopic examination was performed to arrive at the diagnostic conclusion reported. Signed (Electronically Signed) Mike Green MD 01/07/18 Patient : CORNELIO RUFFIN Re01/05/18Loc: T4- A MR#: [id number] END OF REPORT Dis: Sta: ADMINChemistry - Benji [id number] 13:00:00 Test Item Value Reference Range Comments [...] NEW METHODOLOGY.Method: Enzyme Linked Fluorescent Immunoassay (Benji)References: [employer] Benji Package Inserts - Directions for, September,October 2016, [employer]. Chemistry - Benji [id number] 13:00:00 Test Item Value Reference Range Comments Chemistry - Benji Testing 0.6 U/mL <4 Negative (test code=M2T) Chemistry - Benji Testing Less than 4.0 (test rcuv=NYPQOYY401) U/mL=Negative 4.0 - 6.0 U/mL=Equivocal Greater than 6.0 U/mL=POSITIVE Chemistry - Benji Testing NEW METHOD Values obtained with (test code=ELIAVASNEW) different assay methods CANNOT be usedINTERCHANGEABLY.If in the course of monitoring a patient, the assay methodused for determining levels is changed, a newbaseline/serial monitoring may need to be performed.SEE REFERENCE RANGES FOR NEW METHODOLOGY.Method: Enzyme Linked Fluorescent Immunoassay (Benji)References: [employer] Benji Package Inserts - Directions forUse, September,October 2016, [employer]. Chemistry - Benji Testing 0.6 U/mL <4 Negative (test code=M2T) Chemistry - Benji Testing Less than 4.0 (test juqa=BKVKHBQ371) U/mL=Negative 4.0 - 6.0 U/mL=Equivocal Greater than 6.0 U/mL=POSITIVE Chemistry - Benji Testing NEW METHOD Values obtained with (test code=ELIAVASNEW) different assay methods CANNOT be usedINTERCHANGEABLY.If in the course of monitoring a patient, the assay methodused for determining levels is changed, a newbaseline/serial monitoring may need to be performed.SEE REFERENCE RANGES FOR NEW METHODOLOGY.Method: Enzyme Linked Fluorescent Immunoassay (Benji)References: [employer] Benji Package Inserts - Directions forUse, September,October 2016, [employer]. Chemistry - Benji [id number] 13:00:00 Test Item Value Reference Range Comments Chemistry - Benji Testing CENP, Chela-1, RNP70, (test code=ELIAANAINTERP) Scl-70, Longo, SSA/Ro, SSB/La IgGAntibodies: Less than 7.0 Benji U/mL=Negative 7.0 - 10.0 Benji U/mL=Equivocal Greater than 10.0 Benji U/mL=KKPNNOACF0GRV IgG: Less than 5.0 Benji U/mL=Negative 5.0 - 10.0 Benji U/mL=Equivocal Greater than 10.0 Benji U/mL=POSITIVE Chemistry - Benji [id number] 12:38:00 Test Item Value Reference Range Comments Chemistry - Benji Testing (test code=CELTTGIGA) 0.4 EliAU/mL <7 Negative Comment add onChemistry - Benji [id number] 12:38:00 Test Item Value Reference Range Comments Chemistry - Benji Testing (test code=CELTTGIGG) 0.6 EliAU/mL <7 Negative Comment add onChemistry - Benji [id number] 12:38:00 Test Item Value Reference Range Comments Chemistry - Benji Testing Less than (test ekyk=DBPXHRU928) 7.0 Benji U/mL=Negative 7.0 - 10.0 Benji U/mL=Equivocal Greater than 10.0 Benji U/mL=POSITIVE Comment add onChemistry - [id number] 12:33:00 Test Item Value Reference Range Comments Chemistry - Specials (test Non-Reactive NonReactive The panel screens for HIV-1 code=HIVT) p24 Antigen HIV-1/HIV-2Antibody. [id number] 10:27:00 Test Item Value Reference Range Comments Immunology (test code=SYPHABT) Nonreactive Nonreactive [id number] 10:25:00 Test Item Value Reference Range Comments [...] (test code=BASO#) 0.0 thou/uL 0.0-0.2 Hematology (test code=HI) MODERATE=15-30 cells (100X) 0-5/hpf Hematology (test code=HYPO) MODERATE=16-30 cells (100X) 0-5/hpf Hematology (test code=POLY) SLIGHT=2-3 cells (100X) 0-2/hpf Hematology (test code=OV) MODERATE=6-15 cells (100X) 0-1/hpf Hematology (test code=PCOMMENT) Appears Adequate [id number] 10:07:00 Test Item Value Reference Range Comments [...] Stool SCREEN (3) (test code=OCCSTS1) N Comment [id number] 16:59:00 Test Item Value Reference Range Comments [...] (test code=MPV) 10.9 fL 7.4-10.4 Chemistry - [id number] 13:59:00 Test Item Value Reference Range Comments [...] Individual is considered immune to HBV infection. [id number] 12:26:00 Test Item Value Reference Range Comments [...] Hematology (test code=MPV) 5.3 fL 7.4-10.4 Type [id number] 11:29:00 Test Item Value Reference Range Comments Blood Type Rh (test code=BT) O POSITIVE Antibody Screen (test code=ABSC) NEGATIVE Received Blood Or Been w/in Past 90 Days? UNKNOWNReceived Blood Or Been w/in Past 90 Days? NOScheduled Surgery Date: NO SURGERYIs Surgery Date Greater than 7 days from now? NOPacked Cells - [id number] 11:29 :[id number] OP LRPC TFUSE [id number] 05:27:00 Test Item Value Reference Range Comments [...] 5-34 Chemistry (test code=ALT) 149 U/L 8-55 [id number] 05:18:00 Test Item Value Reference Range Comments [...] (test code=BASO#) 0.0 thou/uL 0.0-0.2 Chemistry - [id number] 00:59:00 Test Item Value Reference Range Comments Chemistry - Specials (test code=THEPAIGM) Non-Reactive NonReactive Chemistry - Specials (test code=THBSAG) Non-Reactive S/CO NonReactive Chemistry - Specials (test code=INTHBCM) Non-Reactive NonReactive Chemistry - Specials (test code=INTHEPC) Non-Reactive NonReactive Chemistry - BNP, HgbA1c, [id number] 19:45:00 Test Item Value Reference Range Comments Chemistry - BNP, HgbA1c, PTHi (test code=BNP) 100.4 pg/mL 0-100 Comment add [id number] 19:38:00 Test Item Value Reference Range Comments Chemistry (test 1.5 ng/mL 0-6.6 code=CKMBM-T) Chemistry (test Less than 0.010 < 0.028 code=TROPI-T) ng/mL Reference Range 0.00 - 0.028 ng/mL Negative 0.029 - 0.29 ng/mL Indeterminate Greater or Equal to 0.3 ng/mL Strongly suggests HI Comment add onChemistry - [id number] 18:21:00 Test Item Value Reference Range Comments Chemistry - Specials (test code=LINDSAY) 24.27 ng/mL 10-291 [id number] 18:14:00 Test Item Value Reference Range Comments [...] code=PO) SLIGHT=6-15 cells (100X) 0-5/hpf Hematology (test code=HI) MODERATE=15-30 cells (100X) 0-5/hpf Hematology (test code=HYPO) SLIGHT=6-15 cells (100X) 0-5/hpf Hematology (test code=POLY) MODERATE=3-4 cells (100X) 0-2/hpf Hematology (test code=SC) SLIGHT=2-5 cells (100X) 0-1/hpf Hematology (test code=OV) SLIGHT=2-5 cells (100X) 0-1/hpf Hematology (test code=EL) SLIGHT=2-5 cells (100X) 0-1/hpf Hematology (test code=TE) SLIGHT=2-5 cells (100X) 0-1/hpf Hematology (test code=PCOMMENT) Appears Adequate [id number] 17:59:00 Test Item Value Reference Range Comments [...] 5-34 Chemistry (test code=ALT) 220 U/L 8-55 [id number] 17:59:00 Test Item Value Reference Range Comments Chemistry (test code=IRON) 15 ug/dL 50-170 [id number] 17:59:00 Test Item Value Reference Range Comments Chemistry (test code=TIBC) 386 mcg/dL 265-497 [id number] 17:50:00 Test Item Value Reference Range Comments Coagulation (test 13.3 SEC 12.0-14.7 code=PT-T) Coagulation (test 1.0 ATTENTION: READ code=INR) CAREFULLY -The recommended therapeutic ranges for oral anticoagulanttreatments are: Low Intensity: 1.5 - 2.0 Moderate Intensity: 2.0 - 3.0 High Intensity (1): 2.5 - 3.5 High Intensity (2): 3.0 - 4.0 CRITICAL: > 4.0 Anticoagulant? NONEMedical Necessity SUSPECT COAGULOPATHYAnticoagulant? NONEMedical Necessity: SUSP [id number] 17:50:00 Test Item Value Reference Range Comments Coagulation (test code=PTT) 23.4 SEC 22.9-36.1 Anticoagulant? NONEMedical Necessity SUSPECT COAGULOPATHYAnticoagulant? NONEMedical Necessity: SUSP COAG
[2018-03-10 16:18] LABS: Absolute Lymphocytes (CBC) 1.7 K/uL (0.7-4.9); Absolute Monocytes 0.3 K/uL (0.1-1.3); Basophils % 0.2 % (0-1.3); Eosinophils % 0.6 % (0-4.4); Hematocrit 29.6 % (36.0-45.0); Lymphocytes % 14.3 % (15.3-44.8); MCV 73.8 fL (80-100); MPV 8.1 fL (7.6-11.3); Monocytes % 2.6 % (3.3-12.3)
--- NOTE | 2018-03-10 16:21 | RAD REPORT ---
EXAM DESCRIPTION: RAD - Chest Single View - 03/10/2018 4:09 pm CLINICAL HISTORY: Weakness, fatigue, anemia, shortness of breath COMPARISON: July 30 TECHNIQUE: AP portable chest image was obtained 1558 hours . FINDINGS: Lungs are clear. Lung markings are similar to comparison. Heart and vasculature are normal . No measurable pleural effusion and no pneumothorax. No gross bony abnormality seen. No acute aortic finding. Moderate-size hiatal hernia is noted in stable. IMPRESSION: No acute cardiopulmonary process. No significant change from comparison.
[2018-03-10 16:22] LABS: Protime INR 0.98
[2018-03-10] MEDS ORDERED: PANTOPRAZOLE 40 MG INJ ONE (16:35)
[2018-03-10] MEDS ORDERED: NA CHLORIDE 0.9% 500 ML ONE (16:35)
[2018-03-10] MEDS ORDERED: ONDANSETRON 4 MG/2 ML VIAL ONE (16:35)
[2018-03-10 16:45] LABS: ALT/SGPT 15 U/L (12-78); AST/SGOT 13 U/L (15-37); Albumin 3.2 g/dL (3.4-5.0); Alkaline Phosphatase 82 U/L (45-117); BUN Blood Urea Nitrogen 18 mg/dL (7-18); Bicarbonate 26 mmol/L (21-32); Bilirubin Direct < 0.1 mg/dL (0-0.2); Bilirubin Total 0.6 mg/dL (0.2-1.0); CKMB Creatine Kinase MB 3.1 ng/mL (0.3-3.6); Creatine Phosphokinase 93 U/L (26-192); Glucose Level 104 mg/dL (74-106); Magnesium 2.4 mg/dL (1.8-2.4); NT PRO-BNP 276 pg/mL (<125); Potassium 3.8 mmol/L (3.5-5.1); Protein, Total 6.8 g/dL (6.4-8.2); Sodium Level 141 mmol/L (136-145)
--- NOTE | 2018-03-10 17:29 | RAD REPORT ---
EXAM DESCRIPTION: CT - Head Brain Wo Cont - 03/10/2018 5:19 pm CLINICAL HISTORY: Altered mental status, transient alteration of awareness, weakness, anemia COMPARISON: None. TECHNIQUE: Axial 5 mm thick images of the head were obtained without IV contrast. All CT scans are performed using dose optimization technique as appropriate and may include automated exposure control or mA/KV adjustment according to patient size. FINDINGS: No intracranial hemorrhage, mass, edema or shift of mid-line structures. No acute infarcti on changes seen. Mild atrophy and chronic ischemic changes are present. Ventricles are in proportion to any volume loss. Right-sided mastoid air cells are clear. Left side mastoid air cells are mostly opacified. Frontal si nuses and ethmoid air cells are mostly opacified. Circumferential wall thickening of the sphenoid sin us noted without mucosal thickening. Maxillary sinuses are only partially imaged. Both show wall thic kening changes of chronic sinusitis. Mucosal thickening noted on the right. Patient likely has polypo sis in the nasal passage which is only partially imaged. No acute bony findings. IMPRESSION: Mild atrophy and chronic ischemic change with no acute intracranial finding. Chronic sinusitis changes and possible acute or chronic left-sided mastoiditis. Paranasal sinuses are only partially imaged.
--- NOTE | 2018-03-10 18:02 | EDPHYS ---
Physician Documentation [facility] Name: Irma Cain Age: 63 yrs Sex: Female : 1955 Arrival Date: 03/10/2018 Time: 14:43 Bed 13 Private MD: CUBA CLEARY ED Physician Hong Clancy HPI: 03/10 15:30 This 63 yrs old Female presents to ER via Wheelchair with complaints of cp Anemia. 15:30 general fatigue, general weakness. Onset: The symptoms/episode began/occurred cp gradually. Severity of symptoms: in the emergency department the symptoms are unchanged despite home interventions. Patient reports history of anemia and receiving unknown number of units of blood about 3 weeks ago due to anemia. Patient reports she was referred to ED by office of DR Wan due to symptoms today and anemia is reportedly due to upper GI bleed. Patient reports taking Protonix daily. Historical: - Allergies: 14:54 Aspirin; tw2 14:54 Neosporin ([id number]); tw2 14:54 NSAIDS; tw2 14:54 Talwin; tw2 14:54 Tylenol; tw2 - PMHx: 14:54 Anemia; Asthma; basal cell carcinoma; Osteoporosis; Depression; tw2 - PSHx: 14:54 ; Cholecystectomy; Tubal ligation; rotator cuff sx x2 on right; basal cell tw2 carcinoma removed from left side of neck; - Immunization history:: Adult Immunizations up to date. - Social history:: Smoking status: Patient/guardian denies using tobacco. - Ebola Screening: : Patient denies travel to an Ebola-affected area in the 21 days before illness onset. ROS: 15:30 Eyes: Negative for injury, pain, redness, and discharge. cp 15:30 Constitutional: Positive for fatigue, malaise, Negative for body aches, chills, fever, poor PO intake, weight loss. 15:30 ENT: Negative for drainage from ear(s), ear pain, sore throat, difficulty swallowing, difficulty handling secretions. 15:30 Cardiovascular: Negative for chest pain, edema, palpitations. 15:30 Respiratory: Negative for cough, shortness of breath, wheezing. 15:30 Abdomen/GI: Negative for abdominal pain, nausea, vomiting, and diarrhea, constipation, black/tarry stool, rectal bleeding. 15:30 Back: Negative for pain at rest, pain with movement, radiated pain. 15:30 : Negative for urinary symptoms, vaginal bleeding, vaginal discharge. 15:30 Skin: Negative for cellulitis, rash. 15:30 Neuro: Positive for general weakness, Negative for altered mental status, dizziness, headache, syncope, near syncope. 15:30 All other systems are negative. Exam: 15:26 : Rectal exam: Rectal tone: normal, Stool: brown, Guaiac testing: results were cp positive for occult blood. 15:30 Constitutional: The patient appears in no acute distress, alert, awake, cp non-diaphoretic, non-toxic, well developed, well nourished. 15:30 Head/Face: Normocephalic, atraumatic. Eyes: Pupils equal round and reactive to light, cp extra-ocular motions intact. Lids and lashes normal. Conjunctiva and sclera are non-icteric and not injected. Cornea within normal limits. Periorbital areas with no swelling, redness, or edema. ENT: Nares patent. No nasal discharge, no septal abnormalities noted. Tympanic membranes are normal and external auditory canals are clear. Oropharynx with no redness, swelling, or masses, exudates, or evidence of obstruction, uvula midline. Mucous membranes moist. Chest/axilla: Normal chest wall appearance and motion. Nontender with no deformity. No lesions are appreciated. 15:30 Cardiovascular: Rate: tachycardic, Rhythm: regular, Pulses: Pulses are 2+ in right radial artery and left radial artery. Edema: is not appreciated, JVD: is not appreciated. 15:30 Respiratory: the patient does not display signs of respiratory distress, Respirations: normal, no use of accessory muscles, no retractions, no splinting, no tachypnea, Breath sounds: are clear throughout, no decreased breath sounds, no stridor, no wheezing. 15:30 Abdomen/GI: Inspection: abdomen appears normal, Bowel sounds: active, all quadrants, Palpation: abdomen is soft and non-tender, in all quadrants. 15:30 Skin: cellulitis, is not appreciated, no rash present. 15:30 Neuro: Orientation: to person, place \T\ time. Mentation: lucid, able to follow commands, Cerebellar function: is grossly normal, Motor: moves all fours, strength is normal, Sensation: no obvious gross deficits, Gait: is steady. 15:36 ECG was reviewed by the Attending Physician. Vital Signs: 14:53 BP 135 / 61; Pulse 104; Resp 17; Temp 97.2(TE); Pulse Ox 98% on R/A; Pain 4/10; tw2 16:20 BP 138 / 74; Pulse 96; Resp 16; Pulse Ox 95% on R/A; Pain 4/10; iw MDM: 15:02 Patient medically screened. cp 16:00 Differential Diagnosis anemia, GI bleed, electrolyte abnormality, cardiac arrythmia. cp 18:00 Data reviewed: vital signs, nurses notes, lab test result(s), EKG, radiologic studies, cp plain films. 18:00 Test interpretation: by ED physician or midlevel provider: ECG, plain radiologic cp studies. 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 Response to treatment: the patient's symptoms have mildly improved after treatment, VSS. H/H positive for anemia but stable. Will discharge to home for continued monitoring, and as a result, I will discharge patient. 03/10 15: Order name: Basic Metabolic Panel 03/10 15: Order name: CBC with Diff; Complete Time: 16:37 03/10 16:37 Interpretation: Normal except: WBC 12.1; HGB 9.2; HCT 29.6; MCV 73.8; MCH 23.0; MCHC cp 31.1; RDW 21.7; KAMRAN% 82.3; LYM% 14.3; MN% 2.6; NEUT A 10.0. 03/10 15: Order name: Ckmb 03/10 15: Order name: CPK; Complete Time: 17:01 03/10 15: Order name: LFT's; Complete Time: 17:01 03/10 17:01 Interpretation: Normal except: AST 13; ALB 3.2; GLOB 3.6; A/G 0.9. 03/10 15: Order name: Magnesium; Complete Time: 17:01 /16 15:17 Order name: NT PRO-BNP; Complete Time: 17:01 cp 16 17:02 Interpretation: Abnormal: NT PRO-BNP 276. /16 15:17 Order name: PT-INR; Complete Time: 16:37 cp 16 15:17 Order name: Ptt, Activated; Complete Time: 16:37 cp 16 15:17 Order name: Troponin (emerg Dept Use Only); Complete Time: 16:42 /16 16:43 Interpretation: TROPED < 0.02; Reviewed. 16 15:17 Order name: XRAY Chest (1 view); Complete Time: 16:37 /16 16:38 Interpretation: Report review. 03/10 15:17 Order name: Basic Metabolic Panel; Complete Time: 17:01 EDMS 08/16 17:03 Interpretation: Normal except: GFR 56. 16 15:17 Order name: CKMB Creatine Kinase MB; Complete Time: 17:01 EDMS 16 15:19 Order name: Type And Screen; Complete Time: 17:37 cp 16 15:17 Order name: EKG; Complete Time: 15:17 cp 08/16 15:17 Order name: Cardiac monitoring; Complete Time: 17:30 /16 15:17 Order name: EKG - Nurse/Tech; Complete Time: 17:30 /16 15:17 Order name: IV Saline Lock; Complete Time: 17:30 /16 15:17 Order name: Labs collected and sent; Complete Time: 17:30 16 15:17 Order name: O2 Per Protocol; Complete Time: 17:30 /16 15:17 Order name: O2 Sat Monitoring; Complete Time: 17:30 /16 17:02 Order name: CT Head Brain wo Cont; Complete Time: 17:37 08/16 17:38 Interpretation: Report reviewed. EC:36 Rate is 96 beats/min. Rhythm is regular. IL interval is normal. QRS interval is normal. cp QT interval is normal. T waves are Flattened in lead aVL. Interpreted by me. Reviewed by me. Administered Medications: 16:37 Drug: ProTONIX 40 mg Route: IVP; Site: left wrist; iw 17:00 Follow up: Response: No adverse reaction iw 16:37 Drug: Zofran 4 mg Route: IVP; Site: left wrist; iw 17:00 Follow up: Response: No adverse reaction iw 16:38 Drug: NS 0.9% 500 ml Route: IV; Rate: bolus; Site: left wrist; iw 17:15 Follow up: IV Status: Completed infusion iw Disposition: 03/10/18 18:01 Discharged to Home. Impression: Anemia in chronic diseases classified elsewhere, Malaise and fatigue. - Condition is Stable. - Discharge Instructions: Anemia, Nonspecific, Fatigue. - Medication Reconciliation Form, Thank You Letter, Antibiotic Education, Prescription Opioid Use form. - Follow up: Manuelito Wan MD; When: 1 - 2 days; Reason: Recheck today's complaints. Follow up: CUBA CLEARY; When: 1 - 2 days; Reason: Recheck today's complaints. - Problem is an ongoing problem. - Symptoms have improved. Addendum: 03/12/2018 15:38 Co-signature as Attending Physician, Hong Clancy MD. g s Signatures: Dispatcher [employer] Nellie Cutler RN RN Moi Rivera PA PA cp Frannie Dyer RN RN Rae Triana RN RN [facility] Hong Clancy MD MD Corrections: (The following items were deleted from the chart) 03/10 18:28 17:45 Ny ordered. cp 18:39 18:01 03/10/2018 18:01 Discharged to Home. Impression: Anemia in chronic diseases hb classified elsewhere; Malaise and fatigue. Condition is Stable. Forms are Medication Reconciliation Form, Thank You Letter, Antibiotic Education, Prescription Opioid Use. Follow up: Manuelito aWn; When: 1 - 2 days; Reason: Recheck today's complaints. Follow up: CUBA CLEARY; When: 1 - 2 days; Reason: Recheck today's complaints. Problem is an ongoing problem. Symptoms have improved. cp
--- NOTE | 2018-03-10 18:02 | ER ---
Nurse's Notes [facility] Name: Irma Cain Age: 63 yrs Sex: Female : 1955 Arrival Date: 03/10/2018 Time: 14:43 Bed 13 Private MD: CUBA CLEARY Diagnosis: Anemia in chronic diseases classified elsewhere;Malaise and fatigue Presentation: 03/10 14:52 Presenting complaint: Patient states: i feel real tired and fatigued, i have anemia, tw2 had blood transfusion 3 weeks ago. Transition of care: patient was not received from another setting of care. Onset of symptoms was March 10, 2018. Risk Assessment: Do you want to hurt yourself or someone else? Patient reports no desire to harm self or others. Initial Sepsis Screen: Does the patient meet any 2 criteria? No. Patient's initial sepsis screen is negative. Does the patient have a suspected source of infection? No. Patient's initial sepsis screen is negative. Care prior to arrival: None. 14:52 Method Of Arrival: Wheelchair tw2 14:52 Acuity: FELA 3 tw2 Historical: - Allergies: 14:54 Aspirin; tw2 14:54 Neosporin ([id number]); tw2 14:54 NSAIDS; tw2 14:54 Talwin; tw2 14:54 Tylenol; tw2 - PMHx: 14:54 Anemia; Asthma; basal cell carcinoma; Osteoporosis; Depression; tw2 - PSHx: 14:54 ; Cholecystectomy; Tubal ligation; rotator cuff sx x2 on right; basal cell tw2 carcinoma removed from left side of neck; - Immunization history:: Adult Immunizations up to date. - Social history:: Smoking status: Patient/guardian denies using tobacco. - Ebola Screening: : Patient denies travel to an Ebola-affected area in the 21 days before illness onset. Screenin:20 Abuse screen: Denies threats or abuse. Denies injuries from another. Nutritional iw screening: No deficits noted. Tuberculosis screening: No symptoms or risk factors identified. Fall Risk IV access (20 points). Assessment: 15:20 General: Appears in no apparent distress. Behavior is cooperative, anxious. General: iw Reports fatigue for 2-3 days. Pain:. Neuro: Level of Consciousness is awake, alert, obeys commands, Oriented to person, place, time, situation, Moves all extremities. Full function. Respiratory: Airway is patent Respiratory effort is even, unlabored, Respiratory pattern is regular, symmetrical. Derm: Skin is normal. Musculoskeletal: Range of motion: intact in all extremities. 15:50 Reassessment: Patient appears in no apparent distress at this time. Patient and/or iw family updated on plan of care and expected duration. Pain level reassessed. Patient is alert, oriented x 3, equal unlabored respirations, skin warm/dry/pink. warm blanket given, blood sent to lab. Vital Signs: 14:53 BP 135 / 61; Pulse 104; Resp 17; Temp 97.2(TE); Pulse Ox 98% on R/A; Pain 4/10; tw2 16:20 BP 138 / 74; Pulse 96; Resp 16; Pulse Ox 95% on R/A; Pain 4/10; iw ED Course: 14:43 Patient arrived in ED. sb2 14:44 CUBA CLEARY is Private Physician. sb2 14:53 Triage completed. tw2 14:53 Arm band placed on. tw2 14:59 Moi Rivera PA is PHCP. cp 14:59 Hong Clancy MD is Attending Physician. cp 15:35 EKG done, by electrical equipment technician. reviewed by Moi MORLEY. dt2 15:40 Patient has correct armband on for positive identification. iw 15:50 Initial lab(s) drawn, by sd, sent to lab. Inserted saline lock: 22 gauge in left wrist, iw using aseptic technique. Blood collected. 16:06 Nellie Tanner, RN is Primary Nurse. iw 16:09 XRAY Chest (1 view) In Process Unspecified. EDMS 17:[address] nj 17:19 CT Head Brain wo Cont In Process Unspecified. EDMS 17:59 Manuelito Wan MD is Referral Physician. cp 18:00 CUBA CLEARY is Referral Physician. cp 18:35 No provider procedures requiring assistance completed. iw 18:39 IV discontinued, intact, bleeding controlled, No redness/swelling at site. Pressure hb dressing applied. Administered Medications: 16:37 Drug: ProTONIX 40 mg Route: IVP; Site: left wrist; iw 17:00 Follow up: Response: No adverse reaction iw 16:37 Drug: Zofran 4 mg Route: IVP; Site: left wrist; iw 17:00 Follow up: Response: No adverse reaction iw 16:38 Drug: NS 0.9% 500 ml Route: IV; Rate: bolus; Site: left wrist; iw 17:15 Follow up: IV Status: Completed infusion iw Outcome: 18:01 Discharge ordered by . cp 18:38 Discharged to home ambulatory. hb 18:38 Condition: stable 18:38 Discharge instructions given to patient, Instructed on discharge instructions, follow up and referral plans. Demonstrated understanding of instructions, follow-up care. 18:39 Patient left the ED. hb Signatures: Dispatcher [employer] EDMS Nellie Tanner RN RN iw Moi Rivera PA PA cp Baxter, Heather, RN RN Rae Triana RN RN tw2 Calos Henry Sheri sb2 Shraddha De Oliveira dt2
--- NOTE | 2018-03-10 18:35 | EKG ---
Test Date: 2018-03-10 Test Time: 15:25:55 [employer]: [place] MEASUREMENT RESULTS: Intervals: Rate: 96 PA: 140 QRSD: 66 QT: 346 QTc: 437 Fowler: P: 63 PA: 140 QRS: 40 T: 50 INTERPRETIVE STATEMENTS: Normal sinus rhythm Normal ECG Compared to ECG 07/30/2017 21:12:24 Sinus tachycardia no longer present Electronically Signed On 03-10-18 18:35:05 CDT by Pravin Solis
[2018-03-10 18:51] VITALS: TEMP 97.2
[2018-03-10 18:53] VITALS: BP 138/74; O2SAT 95
== END 2018-03-10 18:39 | disposition home or self-care (01) ==
LOC: ER 14:42
DX: D63.8 Anemia in other chronic diseases classified elsewhere (principal); R53.81 Other malaise; R53.83 Other fatigue; Z85.828 Personal history of other malignant neoplasm of skin; Z88.6 Allergy status to analgesic agent; Z88.8 Allergy status to other drugs, medicaments and biological substances
CPT/HCPCS: 36415; 70450; 71045; 80048; 80076; 82550; 82553; 83735; 83880; 84484; 85025; 85610; 85730; 86850; 86900; 86901; 93005; C9113; J2405; 96361; 96374; 96375; 99284

== ENCOUNTER 2018-06-03 13:26 | Observation (INO) | payer OTHER ==
--- OUTSIDE RECORDS SUMMARY | 2018-06-03 13:30 | XMS REPORT ---
:1955 [facility] Address [address] [place] [address] Dr. Nichole [address] [place] [address] Care Team Providers Name Role Phone Lopez [...] Negative Negative Performed at: - [facility] code=HELIAG) [address] [id number] Director: Chu Jenkins MD, Phone: [phone] [id number] SURGICAL PATHOLOGY, LEVEL [id number] 13:33:[address] [address] Tel: Laboratory Printed : 01/10/18 1333 [facility] DAEMPathology Page: 1 Patient: CORNELIO RUFFIN Birthdate: 1955 Age/Sex: 62/F Spec#: [id number]: Tyrell Patino MD Specimen Date: 01/07/18 Received Date: 01/07/18 Specimen: POLYP, COLON CLINICAL DIAGNOSIS anemia PATHOLOGIC DIAGNOSIS Cecal polyp, polypectomy: - Tubular adenoma. Comment:There is no high grade dysplasia or malignancy present. Pathologist:Crystal Brumfield MD Entered by:01/10/18 - 1256 LAB.YGP PROCEDURES: 11673 GROSS DESCRIPTION A. POLYP,COLON CECUM The specimen is received in 10% formalin, and is labeled with the patient's name and "cecumcolon polyp." The specimen consists of two pink-pino soft tissue fragments measuring 1.2 x0.8 x 0.5 cm in aggregate. The largest fragment bisected. The specimen is entirelysubmitted in one cassette. Dictated by: Tina Kimball Entered by: 01/07/18 - 1311 LAB.YGP Patient: CORNELIO RUFFIN ReLoc: T4-A MR#: [id number] CONTINUED ON NEXT PAGE Dis: 01/08/18ta: DIS IN [address] [address] Laboratory Printed: 01/10/18 1330 [facility] DAEMPathology Page: 2 Patient : CORNELIO RUFFIN [id number] (Continued) GROSS DESCRIPTION (Continued) MICROSCOPIC DESCRIPTION A microscopic examination was performed to arrive at the diagnostic conclusion reported. Signed ( Electronically Signed) Crystal Brumfield MD 01/10/18 ------ ------ Patient: CORNLEIO RUFFIN ReLoc: T4-A MR#: [id number] END OF REPORT Dis: 01/08/18ta: DIS [id number] 11:30:00 Test Item Value Reference Range Comments [...] code=GLU-T) Chemistry (test code=CA) 8.9 mg/dL 7.8-10.44 [id number] 06:56:00 Test Item Value Reference Range Comments Chemistry (test code=MG) 1.8 mg/dL 1.6-2.6 Comment Add to AM labsComment Add to AM takzRfqtsbgxg8673-05-28 06:56:00 Test Item Value Reference Range Comments [...] Add to AM labsComment Add to AM gcbxNozbglboee6323-53-74 04:30:00 Test Item Value Reference Range Comments [...] 0.0-0.7 Hematology (test code=BASO#) 0.1 thou/uL 0.0-0.2 Rilshtdia2777-65-65 04:24:00 Test Item Value Reference Range Comments [...] code=GLU-T) Chemistry (test code=CA) 8.9 mg/dL 7.8-10.44 [id number] 15:26:00 Test Item Value Reference Range Comments Hematology (test code=HGBT) 8.8 g/dL 12.0-16.0 Hematology (test code=HCTT) 29.5 % 36.0-47.0 [id number] SURGICAL PATHOLOGY, LEVEL [id number] 14:22:00 [place] [address] Tel: Laboratory Printed : 01/07/18 1423 [facility] DAEMPathology Page: 1 Patient: CORNELIO RUFFIN Birthdate: 1955 Age/Sex: 62/F Spec#: [id number]: Tyrell Patino MD Specimen Date: [...] MD Entered by:01/07/18 - 1117 LAB.YGP PROCEDURES: 06242/2,50758/2, [address] Patient: CORNELIO RUFFIN Re01/05/18Loc:T4-A MR#: [id number] CONTINUED ON NEXT PAGE Dis: Sta: ADM IN [address] [address] Tel: Laboratory Printed: [address] [place] [address] DAEMPathology Page: 2 --------- --- Patient: CORNELIO RUFFIN [id number] (Continued)------ ------ GROSS DESCRIPTION A. GASTRIC BIOPSY [...] Tina Kimball Entered by: 01/06/18 - 1639 LAB.YGP MICROSCOPIC DESCRIPTION A microscopic examination was performed to arrive at the diagnostic conclusion reported. Signed (Electronically Signed) Mike Green MD 01/07/18 Patient : CORNELIO RUFFIN Re01/05/18Loc: T4- A MR#: [id number] END OF REPORT Dis: Sta: ADMINChemistry - Benji [id number] 13:00:00 Test Item Value Reference Range Comments [...] NEW METHODOLOGY.Method: Enzyme Linked Fluorescent Immunoassay (Benji)References: [employer] Benji Package Inserts - Directions for, September,October 2016, Zaelab. Chemistry - Benji [id number] 13:00:00 Test Item Value Reference Range Comments Chemistry - Benji Testing 0.6 U/mL <4 Negative (test code=M2T) Chemistry - Benji Testing Less than 4.0 (test cgwf=NJDXLQT000) U/mL=Negative 4.0 - 6.0 U/mL=Equivocal Greater than [...] [employer] Benji Package Inserts - Directions for, September,October 2016, Zaelab. Chemistry - Benji Testing 0.6 U/mL <4 Negative (test code=M2T) Chemistry - Benji Testing Less than 4.0 (test qxnu=ZQLEQXI217) U/mL=Negative 4.0 - 6.0 U/mL=Equivocal Greater than 6.0 U/mL=POSITIVE Chemistry - Benji Testing NEW METHOD Values obtained with (test code=ELIAVASNEW) different assay methods CANNOT be usedINTERCHANGEABLY.If in the course of monitoring a patient, the assay methodused for determining levels is changed, a newbaseline/serial monitoring may need to be performed.SEE REFERENCE RANGES FOR NEW METHODOLOGY.Method: Enzyme Linked Fluorescent Immunoassay (Benji)References: [employer] Benji Package Inserts - Directions forUse, September, October 2016, Zaelab. Chemistry - Benji [id number] 13:00:00 Test Item Value Reference Range Comments Chemistry - Benji Testing CENP, Chela-1, RNP70, (test code=ELIAANAINTERP) Scl-70, Longo, SSA/Ro, SSB/La IgGAntibodies: Less than 7.0 Benji U/mL=Negative 7.0 - 10.0 Benji U/mL=Equivocal Greater than 10.0 Benji U/mL=RNBAOTMSB4NTT IgG: Less than 5.0 Bneji U/mL=Negative 5.0 - 10.0 Benji U/mL=Equivocal Greater than 10.0 Benji U/mL=POSITIVE Chemistry - Benji Ghrbktf3563-35-31 12:38:00 Test Item Value Reference Range Comments Chemistry - Benji Testing (test code=CELTTGIGA) 0.4 EliAU/mL <7 Negative Comment add onChemistry - Benji [id number] 12:38:00 Test Item Value Reference Range Comments Chemistry - Benji Testing (test code=CELTTGIGG) 0.6 EliAU/mL <7 Negative Comment add onChemistry - Benji [id number] 12:38:00 Test Item Value Reference Range Comments Chemistry - Benji Testing Less than (test utls=NPRDRXD621) 7.0 Benji U/mL=Negative 7.0 - 10.0 Benji U/mL=Equivocal Greater than 10.0 Benji U/mL=POSITIVE Comment add onChemistry - [id number] 12:33:00 Test Item Value Reference Range Comments Chemistry - Specials (test Non-Reactive NonReactive The panel screens for HIV-1 code=HIVT) p24 Antigen HIV-1/HIV-2Antibody. [id number] 10:27:00 Test Item Value Reference Range Comments Immunology (test code=SYPHABT) Nonreactive Nonreactive Anufobiykv1643-12-90 10:25:00 Test Item Value Reference Range Comments [...] (test code=BASO#) 0.0 thou/uL 0.0-0.2 Hematology (test code=OR) MODERATE=15-30 cells (100X) 0-5/hpf Hematology (test code=HYPO) MODERATE=16-30 cells (100X) 0-5/hpf Hematology (test code=POLY) SLIGHT=2-3 cells (100X) 0-2/hpf Hematology (test code=OV) MODERATE=6-15 cells (100X) 0-1/hpf Hematology (test code=PCOMMENT) Appears Adequate [id number] 10:07:00 Test Item Value Reference Range Comments [...] Stool SCREEN (3) (test code=OCCSTS1) N Comment ylmliUivnqthldx3396-13-22 16:59:00 Test Item Value Reference Range Comments [...] (test code=MPV) 10.9 fL 7.4-10.4 Chemistry - [id number] 13:59:00 Test Item Value Reference Range Comments [...] Individual is considered immune to HBV infection. Irjjanxkls2803-47-16 12:26:00 Test Item Value Reference Range Comments [...] Hematology (test code=MPV) 5.3 fL 7.4-10.4 Type [id number] 11:29:00 Test Item Value Reference Range Comments Blood Type Rh (test code=BT) O POSITIVE Antibody Screen (test code=ABSC) NEGATIVE Received Blood Or Been w/in Past 90 Days? UNKNOWNReceived Blood Or Been w/in Past 90 Days? NOScheduled Surgery Date: NO SURGERYIs Surgery Date Greater than 7 days from now? NOPacked Cells - Cdhxabegmcrs7858-01-85 11:29 :[id number] OP [facility]PC TFUSE [id number] 05:27:00 Test Item Value Reference Range Comments [...] 5-34 Chemistry (test code=ALT) 149 U/L 8-55 Jscydhmylb3557-25-70 05:18:00 Test Item Value Reference Range Comments [...] (test code=BASO#) 0.0 thou/uL 0.0-0.2 Chemistry - Wwfrrdga2167-15-39 00:59:00 Test Item Value Reference Range Comments Chemistry - Specials (test code=THEPAIGM) Non-Reactive NonReactive Chemistry - Specials (test code=THBSAG) Non-Reactive S/CO NonReactive Chemistry - Specials (test code=INTHBCM) Non-Reactive NonReactive Chemistry - Specials (test code=INTHEPC) Non-Reactive NonReactive Chemistry - BNP, HgbA1c, [id number] 19:45:00 Test Item Value Reference Range Comments Chemistry - BNP, HgbA1c, PTHi (test code=BNP) 100.4 pg/mL 0-100 Comment add [id number] 19:38:00 Test Item Value Reference Range Comments Chemistry (test 1.5 ng/mL 0-6.6 code=CKMBM-T) Chemistry (test Less than 0.010 < 0.028 code=TROPI-T) ng/mL Reference Range 0.00 - 0.028 ng/mL Negative 0.029 - 0.29 ng/mL Indeterminate Greater or Equal to 0.3 ng/mL Strongly suggests OR Comment add onChemistry - [id number] 18:21:00 Test Item Value Reference Range Comments Chemistry - Specials (test code=LINDSAY) 24.27 ng/mL 10-291 Efnfgaxjmw8493-37-20 18:14:00 Test Item Value Reference Range Comments [...] code=PO) SLIGHT=6-15 cells (100X) 0-5/hpf Hematology (test code=OR) MODERATE=15-30 cells (100X) 0-5/hpf Hematology (test code=HYPO) SLIGHT=6-15 cells (100X) 0-5/hpf Hematology (test code=POLY) MODERATE=3-4 cells (100X) 0-2/hpf Hematology (test code=SC) SLIGHT=2-5 cells (100X) 0-1/hpf Hematology (test code=OV) SLIGHT=2-5 cells (100X) 0-1/hpf Hematology (test code=EL) SLIGHT=2-5 cells (100X) 0-1/hpf Hematology (test code=TE) SLIGHT=2-5 cells (100X) 0-1/hpf Hematology (test code=PCOMMENT) Appears Adequate [id number] 17:59:00 Test Item Value Reference Range Comments [...] 5-34 Chemistry (test code=ALT) 220 U/L 8-55 [id number] 17:59:00 Test Item Value Reference Range Comments Chemistry (test code=IRON) 15 ug/dL 50-170 [id number] 17:59:00 Test Item Value Reference Range Comments Chemistry (test code=TIBC) 386 mcg/dL 265-497 [id number] 17:50:00 Test Item Value Reference Range Comments Coagulation (test 13.3 SEC 12.0-14.7 code=PT-T) Coagulation (test 1.0 ATTENTION: READ code=INR) CAREFULLY -The recommended therapeutic ranges for oral anticoagulanttreatments are: Low Intensity: 1.5 - 2.0 Moderate Intensity: 2.0 - 3.0 High Intensity (1): 2.5 - 3.5 High Intensity (2): 3.0 - 4.0 CRITICAL: > 4.0 Anticoagulant? NONEMedical Necessity SUSPECT COAGULOPATHYAnticoagulant? NONEMedical Necessity: SUSP KZRLGdszoiqtjvc8087-26-11 17:50:00 Test Item Value Reference Range Comments Coagulation (test code=PTT) 23.4 SEC 22.9-36.1 Anticoagulant? NONEMedical Necessity SUSPECT COAGULOPATHYAnticoagulant? NONEMedical Necessity: SUSP COAG
[2018-06-03] MEDS ORDERED: IPRATROPIUM BROM 0.5MG/2.5ML ONE (14:25)
[2018-06-03] MEDS ORDERED: ALBUTEROL 2.5 MG/3 ML NEB SOL ONE ×2 (14:25→15:27)
--- NOTE | 2018-06-03 15:22 | ER ---
Nurse's Notes [facility] Name: Irma Cain Age: 63 yrs Sex: Female : 1955 Arrival Date: 06/03/2018 Time: 13:29 Bed 30 Private MD: CUBA CLEARY Diagnosis: Asthma;Fever, unspecified;Vomiting;Diarrhea, unspecified;Weakness;Congenital hiatus hernia;Elevated white blood cell count Presentation: 06/03 13:34 Presenting complaint: Patient states: Vomiting/Diarrhea since yesterday, with wheezing. aj Transition of care: patient was not received from another setting of care. Onset of symptoms was June 02, 2018. Risk Assessment: Do you want to hurt yourself or someone else? Patient reports no desire to harm self or others. Initial Sepsis Screen: Does the patient meet any 2 criteria? RR > 20 per min. HR > 90 bpm. Yes Does the patient have a suspected source of infection? No. Patient's initial sepsis screen is negative. 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 Triage Assessment: 13:38 General: Appears in no apparent distress. comfortable, Behavior is cooperative, aj anxious. Pain: Denies pain. Neuro: Level of Consciousness is awake, alert, obeys commands, Oriented to person, place, time, situation, Appropriate for age. Respiratory: Reports shortness of breath Airway is patent Respiratory effort is even, unlabored, Respiratory pattern is regular, symmetrical, Parent/caregiver reports the patient having wheezing. GI: Reports diarrhea, nausea, vomiting. Derm: Skin is intact, is healthy with good turgor, Skin is pink, warm \\T\\ dry. normal. Historical: - Allergies: 13:38 Aspirin; aj 13:38 Neosporin (bqw-gso-lurje); aj 13:38 NSAIDS; aj 13:38 Talwin; aj 13:38 Tylenol; aj 13:38 Benadryl; aj - Home Meds: 13:38 Albuterol Inhl [Active]; alprazolam 1 mg Oral tab 1 tab 3 times per day [Active]; Breo aj Ellipta 100-25 mcg/dose inhalation dsdv [Active]; Daliresp 500 mcg Oral tab 1 tab once daily [Active]; Deplin (algal oil) Oral [Active]; Effexor XR 150 mg Oral cp24 2 cap once daily [Active]; omeprazole 40 mg Oral cpDR 1 cap once daily [Active]; prednisone 10 mg Oral tab 1 tab 2 times per day [Active]; Ventolin Rotahaler/Rotacaps Inhl [Active]; - PMHx: 13:38 Anemia; Asthma; basal cell carcinoma; Depression; Osteoporosis; aj - PSHx: 13:38 ; Cholecystectomy; Tubal ligation; rotator cuff sx x2 on right; basal cell aj carcinoma removed from left side of neck; - Immunization history:: Adult Immunizations up to date. - Social history:: Smoking status: Patient/guardian denies using tobacco. - Ebola Screening: : Patient negative for fever greater than or equal to 101.5 degrees Fahrenheit, and additional compatible Ebola Virus Disease symptoms Patient denies exposure to infectious person Patient denies travel to an Ebola-affected area in the 21 days before illness onset No symptoms or risks identified at this time. - Family history:: not pertinent. Screenin:19 Abuse screen: Denies threats or abuse. Denies injuries from another. Nutritional tl3 screening: No deficits noted. Tuberculosis screening: No symptoms or risk factors identified. Fall Risk None identified. Assessment: 14:30 General: Appears in no apparent distress. uncomfortable, Behavior is calm, cooperative. tl3 14:30 Pain: Denies pain. Neuro: Level of Consciousness is awake, alert, obeys commands, tl3 Oriented to person, place, time, situation. Cardiovascular: Capillary refill < 3 seconds. Respiratory: Airway is patent Breath sounds with wheezes bilaterally. GI: Abdomen is flat. : No signs and/or symptoms were reported regarding the genitourinary system. EENT: No signs and/or symptoms were reported regarding the EENT system. Derm: Skin is intact. 15:45 Reassessment: Patient appears in no apparent distress at this time. Patient and/or rv family updated on plan of care and expected duration. Pain level reassessed. Patient is alert, oriented x 3, equal unlabored respirations, skin warm/dry/pink. 17:00 Reassessment: Patient appears in no apparent distress at this time. Patient and/or rv family updated on plan of care and expected duration. Pain level reassessed. Patient is alert, oriented x 3, equal unlabored respirations, skin warm/dry/pink. Vital Signs: 13:38 BP 139 / 74; Pulse 127; Resp 20; Temp 98.3; Pulse Ox 98% on R/A; Weight 55.34 kg; aj Height 5 ft. 1 in. (154.94 cm); 17:00 BP 160 / 57; Pulse 97 MON; Resp 21 S; Temp 99.1; Pulse Ox 97% on R/A; rv 13:38 Body Mass Index 23.05 (55.34 kg, 154.94 cm) aj ED Course: 13:29 Patient arrived in ED. mr 13:30 CUBA CLEARY is Private Physician. mr 13:36 Triage completed. aj 13:38 Arm band placed on right wrist. aj 13:40 Patient placed in waiting room, Patient notified of wait time. aj 14:22 Moi Berrios MD is Attending Physician. stefanie 15:00 Inserted saline lock: 20 gauge in left antecubital area, using aseptic technique. Blood tl3 collected. 15:20 Unruly Engel DO is Hospitalizing Provider. stefanie 15:27 XRAY Chest (1 view) In Process Unspecified. EDMS 16:19 Patient has correct armband on for positive identification. Bed in low position. Call tl3 light in reach. Side rails up X 1. personnel monitor on. Pulse ox on. NIBP on. 17:02 No provider procedures requiring assistance completed. Patient admitted, IV remains in rv place. intact. Administered Medications: 15:00 Drug: Albuterol - atroVENT (3:1) (2.5 mg - 0.5 mg) 3 ml Route: Nebulizer; tl3 16:46 Follow up: Response: No adverse reaction rv 15:30 Drug: Pepcid 20 mg Route: IVP; Site: left antecubital; tl3 16:45 Follow up: Response: No adverse reaction rv 15:30 Drug: NS 0.9% 1000 ml Route: IV; Rate: 125 ml/hr; Site: left antecubital; tl3 16:40 Follow up: IV Status: Completed infusion rv 15:30 Drug: Zofran 4 mg Route: IVP; Site: left antecubital; tl3 16:40 Follow up: Response: No adverse reaction rv 16:17 Drug: SOLU-Medrol 2 mg/kg Route: IVP; Site: left antecubital; tl3 16:46 Follow up: Response: No adverse reaction rv 16:30 Drug: levofloxacin 500 mg Volume: 100 ml; Route: IVPB; Infused Over: 60 mins; Site: rv left antecubital; 17:00 Follow up: IV Status: Infusion continued upon admission rv Outcome: 15:21 Decision to Hospitalize by Provider. stefanie 17:02 Admitted to Tele accompanied by tech, via wheelchair, room 428, with chart, Report rv called to momo null 17:02 Condition: stable 17:02 Instructed on the need for admit. 17:03 Patient left the ED. rv Signatures: Dispatcher [employer] EDAnna Junior RN RN Moi Le MD MD cha Rivera, Mary mr Mariel Ray RN RN tl3 Yoni Warner RN RN rv Corrections: (The following items were deleted from the chart) 13:37 13:34 Care prior to arrival: None. carlton vincent
--- NOTE | 2018-06-03 15:22 | EDPHYS ---
Physician Documentation [facility] Name: Irma Cain Age: 63 yrs Sex: Female : 1955 Arrival Date: 06/03/2018 Time: 13:29 Bed 30 Private MD: CUBA CLEARY ED Physician Moi Berrios HPI: 06/03 15:12 This 63 yrs old Female presents to ER via Ambulatory with complaints of stefanie Fever, Vomiting/Diarrhea, Asthma Exacerbation. 15:12 This 63 yrs old Female presents to ER via Ambulatory with complaints of stefanie Fever, Vomiting/Diarrhea, Asthma Exacerbation. 15:12 The patient reports fever. Onset: The symptoms/episode began/occurred 2 day(s) ago. stefanie Modifying factors: there are no obvious modifying factors. Associated signs and symptoms: Pertinent positives: cough, diarrhea, nausea, shortness of breath, vomiting. Severity of symptoms: At their worst the symptoms were moderate in the emergency department the symptoms are unchanged. The patient has experienced similar episodes in the past, several times. Historical: - Allergies: 13:38 Aspirin; aj 13:38 Neosporin ([id number]); aj 13:38 NSAIDS; aj 13:38 Talwin; aj 13:38 Tylenol; aj 13:38 Benadryl; aj - Home Meds: 13:38 Albuterol Inhl [Active]; alprazolam 1 mg Oral tab 1 tab 3 times per day [Active]; Breo aj Ellipta 100-25 mcg/dose inhalation dsdv [Active]; Daliresp 500 mcg Oral tab 1 tab once daily [Active]; Deplin (algal oil) Oral [Active]; Effexor XR 150 mg Oral cp24 2 cap once daily [Active]; omeprazole 40 mg Oral cpDR 1 cap once daily [Active]; prednisone 10 mg Oral tab 1 tab 2 times per day [Active]; Ventolin Rotahaler/Rotacaps Inhl [Active]; - PMHx: 13:38 Anemia; Asthma; basal cell carcinoma; Depression; Osteoporosis; aj - PSHx: 13:38 ; Cholecystectomy; Tubal ligation; rotator cuff sx x2 on right; basal cell aj carcinoma removed from left side of neck; - Immunization history:: Adult Immunizations up to date. - Social history:: Smoking status: Patient/guardian denies using tobacco. - Ebola Screening: : Patient negative for fever greater than or equal to 101.5 degrees Fahrenheit, and additional compatible Ebola Virus Disease symptoms Patient denies exposure to infectious person Patient denies travel to an Ebola-affected area in the 21 days before illness onset No symptoms or risks identified at this time. - Family history:: not pertinent. ROS: 15:12 Constitutional: Negative for fever, chills, and weight loss, Eyes: Negative for injury, stefanie pain, redness, and discharge, ENT: Negative for injury, pain, and discharge, Neck: Negative for injury, pain, and swelling, Cardiovascular: Negative for chest pain, palpitations, and edema, Back: Negative for injury and pain, : Negative for injury, bleeding, discharge, and swelling, MS/Extremity: Negative for injury and deformity, Skin: Negative for injury, rash, and discoloration, Neuro: Negative for headache, weakness, numbness, tingling, and seizure, Psych: Negative for depression, anxiety, suicide ideation, homicidal ideation, and hallucinations, Allergy/Immunology: Negative for hives, rash, and allergies, Endocrine: Negative for neck swelling, polydipsia, polyuria, polyphagia, and marked weight changes, Hematologic/Lymphatic: Negative for swollen nodes, abnormal bleeding, and unusual bruising. 15:12 Respiratory: Positive for cough, shortness of breath, wheezing, expiratory. 15:12 Abdomen/GI: Positive for nausea and vomiting, diarrhea. Exam: 15:12 Constitutional: This is a well developed, well nourished patient who is awake, alert, stefanie and in no acute distress. Head/Face: Normocephalic, atraumatic. Eyes: Pupils equal round and reactive to light, extra-ocular motions intact. Lids and lashes normal. Conjunctiva and sclera are non-icteric and not injected. Cornea within normal limits. Periorbital areas with no swelling, redness, or edema. ENT: Nares patent. No nasal discharge, no septal abnormalities noted. Tympanic membranes are normal and external auditory canals are clear. Oropharynx with no redness, swelling, or masses, exudates, or evidence of obstruction, uvula midline. Mucous membranes moist. Neck: Trachea midline, no thyromegaly or masses palpated, and no cervical lymphadenopathy. Supple, full range of motion without nuchal rigidity, or vertebral point tenderness. No Meningismus. Chest/axilla: Normal chest wall appearance and motion. Nontender with no deformity. No lesions are appreciated. Cardiovascular: Regular rate and rhythm with a normal S1 and S2. No gallops, murmurs, or rubs. Normal PMI, no JVD. No pulse deficits. Back: No spinal tenderness. No costovertebral tenderness. Full range of motion. Skin: Warm, dry with normal turgor. Normal color with no rashes, no lesions, and no evidence of cellulitis. MS/ Extremity: Pulses equal, no cyanosis. Neurovascular intact. Full, normal range of motion. Neuro: Awake and alert, GCS 15, oriented to person, place, time, and situation. Cranial nerves II-XII grossly intact. Motor strength 5/5 in all extremities. Sensory grossly intact. Cerebellar exam normal. Normal gait. Psych: Awake, alert, with orientation to person, place and time. Behavior, mood, and affect are within normal limits. 15:12 Respiratory: mild respiratory distress is noted, Respirations: labored breathing, that is mild, that is moderate, Breath sounds: decreased breath sounds, rhonchi, wheezing: inspiratory expiratory Respiratory rate: 22 Vital Signs: 13:38 BP 139 / 74; Pulse 127; Resp 20; Temp 98.3; Pulse Ox 98% on R/A; Weight 55.34 kg; aj Height 5 ft. 1 in. (154.94 cm); 17:00 BP 160 / 57; Pulse 97 MON; Resp 21 S; Temp 99.1; Pulse Ox 97% on R/A; rv 13:38 Body Mass Index 23.05 (55.34 kg, 154.94 cm) MDM: 14:22 Patient medically screened. [facility] 15:12 Data reviewed: vital signs, nurses notes, lab test result(s), EKG, radiologic studies, [facility] plain films. 06/03 15:11 Order name: Basic Metabolic Panel; Complete Time: 16:37 [facility] 06/03 15:11 Order name: CBC with Diff; Complete Time: 16:20 [facility] 06/03 15:11 Order name: LFT's; Complete Time: 16:37 [facility] 06/03 15:11 Order name: Magnesium; Complete Time: 16:37 [facility] 06/03 15:11 Order name: NT PRO-BNP; Complete Time: 16:37 [facility] 06/03 15:11 Order name: PT-INR; Complete Time: 16:20 [facility] 06/03 15:11 Order name: Troponin (emerg Dept Use Only); Complete Time: 16:37 [facility] 06/03 15:11 Order name: Blood Culture Adult (2) [facility] 06/03 15:11 Order name: Urine Culture [facility] 06/03 15:11 Order name: Lipase; Complete Time: 16:37 [facility] 06/03 15:11 Order name: Procalcitonin; Complete Time: 16:37 [facility] 06/03 15:11 Order name: Influenza Screen (a \T\ B); Complete Time: 16:37 [facility] 06/03 16:35 Order name: T4 Free; Complete Time: 16:37 [facility] 06/03 16:35 Order name: Thyroid Stimulating Hormone; Complete Time: 16:37 [facility] 06/03 15:11 Order name: XRAY Chest (1 view); Complete Time: 16:20 [facility] 06/03 15:11 Order name: EKG; Complete Time: 15:16 [facility] 06/03 15:11 Order name: Cardiac monitoring; Complete Time: 16:18 [facility] 06/03 15:11 Order name: EKG - Nurse/Tech; Complete Time: 16:18 [facility] 06/03 15:11 Order name: IV Saline Lock; Complete Time: 16:18 [facility] 06/03 15:11 Order name: Labs collected and sent; Complete Time: 16:18 [facility] 06/03 15:11 Order name: O2 Per Protocol; Complete Time: 16:18 [facility] 06/03 15:11 Order name: O2 Sat Monitoring; Complete Time: 16:18 [facility] 06/03 15:11 Order name: Urine Dipstick-Ancillary (obtain specimen) [facility] 06/03 15:28 Order name: CONS Physician Consult EDMS Administered Medications: 15:00 Drug: Albuterol - atroVENT (3:1) (2.5 mg - 0.5 mg) 3 ml Route: Nebulizer; tl3 16:46 Follow up: Response: No adverse reaction rv 15:30 Drug: Pepcid 20 mg Route: IVP; Site: left antecubital; tl3 16:45 Follow up: Response: No adverse reaction rv 15:30 Drug: NS 0.9% 1000 ml Route: IV; Rate: 125 ml/hr; Site: left antecubital; tl3 16:40 Follow up: IV Status: Completed infusion rv 15:30 Drug: Zofran 4 mg Route: IVP; Site: left antecubital; tl3 16:40 Follow up: Response: No adverse reaction rv 16:17 Drug: SOLU-Medrol 2 mg/kg Route: IVP; Site: left antecubital; tl3 16:46 Follow up: Response: No adverse reaction rv 16:30 Drug: levofloxacin 500 mg Volume: 100 ml; Route: IVPB; Infused Over: 60 mins; Site: rv left antecubital; 17:00 Follow up: IV Status: Infusion continued upon admission rv Disposition: 06/03/18 15:21 Hospitalization ordered by Unruly Engel for Observation. Preliminary diagnosis are Asthma, Fever, unspecified, Vomiting, Diarrhea, unspecified, Weakness, Congenital hiatus hernia, Elevated white blood cell count. - Bed requested for Telemetry/MedSurg (observation). - Status is Observation. rv - Condition is Fair. - Problem is new. - Symptoms have improved. UTI on Admission? No Signatures: Dispatcher [employer] Ana Maria Mcdonald RN Anna Rosario RN RN aj Anderson, Corey, MD MD cha Lowrey, Tammy, RN RN tl3 Yoni Warner RN RN rv Corrections: (The following items were deleted from the chart) 16:03 15:21 Hospitalization Ordered by Unruly Engel DO for Observation. Preliminary dw diagnosis is Asthma; Fever, unspecified; Vomiting; Diarrhea, unspecified; Weakness. Bed requested for Telemetry/MedSurg (observation). Status is Observation. Condition is Fair. Problem is new. Symptoms have improved. UTI on Admission? No. stefanie 16:21 16:03 06/03/2018 15:21 Hospitalization Ordered by Unruly Engel DO for Observation. stefanie Preliminary diagnosis is Asthma; Fever, unspecified; Vomiting; Diarrhea, unspecified; Weakness. Bed requested for Telemetry/MedSurg (observation). Status is Observation. Condition is Fair. Problem is new. Symptoms have improved. UTI on Admission? No. dw 17:02 16:21 06/03/2018 15:21 Hospitalization Ordered by Unruly Engel DO for Observation. rv Preliminary diagnosis is Asthma; Fever, unspecified; Vomiting; Diarrhea, unspecified; Weakness; Congenital hiatus hernia; Elevated white blood cell count. Bed requested for Telemetry/MedSurg (observation). Status is Observation. Condition is Fair. Problem is new. Symptoms have improved. UTI on Admission? No. stefanie
[2018-06-03] MEDS ORDERED: FAMOTIDINE 20 MG/2 ML VIAL IV ONE ×2 (15:27→15:29)
[2018-06-03] MEDS ORDERED: ONDANSETRON 4 MG/2 ML VIAL ONE (15:27)
[2018-06-03] MEDS ORDERED: NA CHLORIDE 0.9% 1,000 ML ONE (15:27)
[2018-06-03] MEDS ORDERED: METHYLPREDNISOLONE 125 MG INJ ONE (15:27)
[2018-06-03] MEDS ORDERED: IPRATROPIUM BROM 0.5MG/2.5ML NEB PRN (15:43)
[2018-06-03] MEDS ORDERED: ACETAMINOPHEN 500 MG TAB PO PRN (15:43)
[2018-06-03] MEDS ORDERED: ALBUTEROL 2.5 MG/3 ML NEB SOL NEB PRN (15:43)
[2018-06-03] MEDS ORDERED: ONDANSETRON 4 MG/2 ML VIAL IV PRN (15:43)
[2018-06-03] MEDS ORDERED: LOPERAMIDE HCL 2 MG CAPSULE PO PRN (15:43)
[2018-06-03 15:46] LABS: Absolute Lymphocytes (CBC) 1.3 K/uL (0.7-4.9); Absolute Monocytes 0.7 K/uL (0.1-1.3); Absolute Neutrophil 11.4 K/uL (1.8-8.0); Basophils % 0.2 % (0-1.3); Eosinophils % 0.1 % (0-4.4); Hematocrit 38.9 % (36.0-45.0); Lymphocytes % 9.5 % (15.3-44.8); MCH 24.7 pg (27.0-35.0); MCV 76.9 fL (80-100); MPV 8.1 fL (7.6-11.3); Monocytes % 4.9 % (3.3-12.3); RBC Red Blood Cell Count 5.06 M/uL (3.86-4.86)
[2018-06-03 15:48] LABS: Protime INR 0.99
--- NOTE | 2018-06-03 15:57 | RAD REPORT ---
EXAM DESCRIPTION: RAD - Chest Single View - 06/03/2018 3:24 pm CLINICAL HISTORY: Cough and congestion COMPARISON: March 10 TECHNIQUE: AP portable chest image was obtained 1521 hours . FINDINGS: Lungs are clear. Heart and vasculature are normal. No measurable pleural effusion and no p neumothorax. No acute bony abnormality seen. Lung markings are similar to comparison. Large hiatal he rnia present. IMPRESSION: No acute cardiopulmonary process. Above detailed findings are stable from the February.
[2018-06-03] MEDS ORDERED: NA CHLORIDE 0.9% 1,000 ML IV SCH (16:00)
--- NOTE | 2018-06-03 16:16 | P.HP ---
Certification for Inpatient Patient admitted to: Observation With expected LOS: <2 Midnights Patient will require the following post-hospital care: None Practitioner: I am a practitioner with admitting privileges, knowledge of patient current condition, hospital course, and medical plan of care. Services: Services provided to patient in accordance with Admission requirements found in Title 42 Section 412.3 of the Code of Federal Regulations Patient History Date of Service: 06/03/18 Primary Care Provider: Dr. Ledezma; Pulmonary-Dr. Li Reason for admission: Shortness of breath, fatigue History of Present Illness: 63-year-old female presented to emergency room with shortness of breath and fatigue. Patient reports increasing shortness of breath and fatigue over the last couple of days. Patient with history of asthma a steroid dependent, depression, anemia. Patient also reported some nausea and vomiting. Patient came to the ER for further evaluation. She denied any significant chest pain, cough, fever , diarrhea or constipation. In the ER patient evaluated. White count slightly elevated. BMP pending. Chest x-ray showed no significant pneumonia. It showed a large hiatal hernia. Patient evaluated in the emergency room. She was given several breathing treatments. Patient was admitted for observation When I saw the patient ER, she appeared comfortable. Patient still reported some fatigue. She does not smoke or drink alcohol Allergies aspirin Allergy (Intermediate, Verified 11/07/12 16:55) Anaphylaxis bacitracin [From Neosporin ([id number])] Allergy (Intermediate, Verified 16:55) aquino skin bacitracin zinc [From Neosporin ([id number])] Allergy (Intermediate, Verified 11/07/12 16:55) aquino skin neomycin sulfate [From Neosporin ([id number])] Allergy (Intermediate, Verified 11/07/12 16:55) aquino skin polymyxin B [From Neosporin ([id number])] Allergy (Intermediate, Verified 16:55) aquino skin diphenhydramine HCl [From Benadryl] Allergy (Unverified 06/25/15 08:50) Unknown No Allergy Information Available Allergy (Unverified 03/23/17 22:01) Unknown pentazocine lactate [From Talwin] Allergy (Unverified 03/10/18 18:43) Unknown Neosporin ([id number]) Allergy (Uncoded 07/05/14 00:21) Unknown No Allergy Allergy (Uncoded 02/02/16 11:33) Unknown NSAIDS Allergy (Uncoded 02/11/18 06:38) Unknown Home medications list reviewed: Yes Home Medications: ALPRAZolam [Xanax*] 1 mg PO DAILY PRN 02/20/14 Albuterol Sulfate [Albuterol Sulfate 0.083% Neb Soln] 2.5 mg NEB Q4HP PRN Fluticasone/Vilanterol [Breo Ellipta 100-25 Mcg INH] 1 inh IH DAILY 02/20/14 Albuterol Sulfate [Ventolin Hfa] 2 puff IH Q4HP PRN 04/15/18 Roflumilast [Daliresp] 250 mcg PO DAILY 04/15/18 predniSONE [Deltasone] 10 mg PO DAILY 04/15/18 - Past Medical/Surgical History Diabetic: No -: Asthma, steroid dependent -: Depression -: Osteoporosis -: GERD with hiatal hernia -: Obesity -: -: Tubal ligation -: cholecystectomy -: cataract surgery -: rt shoulder sx x2 -: sx on left knee Psychosocial/ Personal History: Patient is . She has 1 child. She is retired. - Family History Father -: Heart disease, Hypertension, Lung disease, Cancer, Other (see notes) Notes: asbestosis - Social History Smoking Status: Never smoker Alcohol use: No CD- Drugs: No Caffeine use: Yes Place of Residence: Home Review of Systems General: Weakness, As per HPI Eyes: Unremarkable ENT: Unremarkable Respiratory: Shortness of Breath, Wheezing, As per HPI Cardiovascular: Unremarkable Gastrointestinal: Nausea, Vomiting, As per HPI Genitourinary: Unremarkable Musculoskeletal: Unremarkable Integumentary: Unremarkable Neurological: Weakness, As per HPI Lymphatics: Unremarkable Physical Examination - Physical Exam General: Alert, In no apparent distress, Oriented x3, Cooperative HEENT: Atraumatic, Normocephalic, PERRLA, Mucous membr. moist/pink Neck: Supple, No Thyromegaly Respiratory: Expiratory wheezes (Bilateral) Cardiovascular: Normal pulses, Regular rate/rhythm Gastrointestinal: Normal bowel sounds, Soft and benign, Non-distended, No tenderness, No masses, No rebound, No guarding Musculoskeletal: No erythema, No tenderness, No warmth Integumentary: No tenderness/swelling, No erythema, No warmth, No cyanosis Neurological: Normal speech, Normal strength at 5/5 x4 extr, Normal tone, Normal affect - Studies Laboratory Data (last 24 hrs) 06/03/18 15:00: PT 11.7, INR 0.99 06/03/18 15:00: WBC 13.4 H, Hgb 12.5, Hct 38.9, Plt Count 358 Assessment and Plan - Plan Impression: Shortness of breath secondary to a mild asthma exacerbation, steroid dependent Nausea and vomiting with GERD and large hiatal hernia Depression with anxiety Mild dehydration Plan: Shortness of breath secondary to a mild asthma exacerbation, steroid dependent: Patient will be admitted for observation. Will increase steroid. Will continue with asthma medication. Pulmonology consulted to further assess. Will wean off oxygen. Anticipate discharge tomorrow. Nausea and vomiting with GERD and large hiatal hernia: Will start Protonix 40 mg daily. Will provide medication for nausea and vomiting. Patient will need follow up with GI as an outpatient to further address. Depression with anxiety: Will verify home medication. Will provide medication for anxiety. Mild dehydration: Will continue with IV fluids. Will monitor closely. Discharge Plan: Home Plan to discharge in: 24 Hours - Advance Directives Does patient have a Living Will: No Does patient have a Durable POA for Healthcare: No - Code Status/Comfort Care Code Status Assessed: Yes Time Spent Managing Pts Care (In Minutes): 55
[2018-06-03 16:25] LABS: ALT/SGPT 20 U/L (12-78); AST/SGOT 16 U/L (15-37); Albumin 3.7 g/dL (3.4-5.0); Alkaline Phosphatase 87 U/L (45-117); BUN Blood Urea Nitrogen 13 mg/dL (7-18); Bicarbonate 25 mmol/L (21-32); Bilirubin Direct 0.2 mg/dL (0-0.2); Bilirubin Total 0.9 mg/dL (0.2-1.0); Glucose Level 103 mg/dL (74-106); Lipase 220 U/L (73-393); Magnesium 2.5 mg/dL (1.8-2.4); NT PRO-BNP 854 pg/mL (<125); Protein, Total 7.3 g/dL (6.4-8.2); Sodium Level 142 mmol/L (136-145); Troponin (Emerg Dept Use Only) < 0.02 ng/mL (0.0-0.045)
[2018-06-03 16:28] LABS: Thyroid Stimulating Hormone 0.446 uIU/mL (0.360-3.740)
[2018-06-03] MEDS ORDERED: Levofloxacin500mg IV 500 MG/100 ML BAG IV ONE (16:36)
[2018-06-03] MEDS ORDERED: ENOXAPARIN 40 MG/0.4 ML SQ SCH (17:00)
[2018-06-03 17:09] VITALS: BMI 22.6
[2018-06-03] MEDS ORDERED: INFLUENZA VACCINE (for 3y+) 0.5 ML DOSE IMVAC ONE (18:00)
--- NOTE | 2018-06-03 18:46 | EKG ---
Test Date: 2018-06-03 Test Time: 15:25:01 Commutator Presser: BRANDON MEASUREMENT RESULTS: Intervals: Rate: 107 ME: 126 QRSD: 64 QT: 330 QTc: 440 Dolph: P: 69 ME: 126 QRS: 59 T: 43 INTERPRETIVE STATEMENTS: Sinus tachycardia Nonspecific T wave abnormality Abnormal ECG Compared to ECG 04/15/2018 10:30:02 T-wave abnormality now present Sinus rhythm no longer present ST (T wave) deviation no longer present Electronically Signed On 06-03-18 18:44:43 MANAGER OF [employer] by Francisco Francis
[2018-06-03] MEDS: ARFORMOTEROL TARTRATE 15 MCG/2 ML VIAL.NEB NEB SCH (20:37)
[2018-06-03] MEDS: FLUTICASONE 50MCG NASAL SPRAY NAS SCH (21:00)
[2018-06-03] MEDS: predniSONE 20 MG TAB PO SCH (21:01)
[2018-06-03] MEDS: ALPRAZOLAM 1 MG TABLET PO PRN (21:08)
[2018-06-03 23:03] LABS: Urine Appearance CLEAR; Urine Blood TRACE (NEG); Urine Color YELLOW; Urine Glucose TRACE (NEG); Urine Protein 1+ (NEG); Urine Specific Gravity 1.025 (1.005-1.030); Urine Urobilinogen 0.2 mg/dL (0.2-1.0); Urine pH 5.5 (5.0-7.0)
[2018-06-03 23:10] LABS: Urine Bilirubin NEGATIVE (NEG); Urine Microscopic Reflex ORDER UMIC
[2018-06-04] MEDS: VENLAFAXINE HCL XR 75 MG CAP PO SCH ×2 (01:19→08:23)
[2018-06-04 01:56] LABS: Urine Bacteria <20 /HPF (<20); Urine Culture Reflex Order NOT NEEDED; Urine Mucus HEAVY /HPF (NONE SEEN); Urine RBC <5 /HPF (NONE SEEN)
[2018-06-04] MEDS ORDERED: PANTOPRAZOLE 40MG TABLET PO SCH (06:30)
[2018-06-04 06:57] LABS: Absolute Lymphocytes (CBC) 1.2 K/uL (0.7-4.9); Absolute Monocytes 0.5 K/uL (0.1-1.3); Basophils % 0.1 % (0-1.3); Hematocrit 33.7 % (36.0-45.0); Lymphocytes % 13.9 % (15.3-44.8); MCH 24.7 pg (27.0-35.0); MCV 76.5 fL (80-100); MPV 7.9 fL (7.6-11.3); Monocytes % 5.8 % (3.3-12.3); RBC Red Blood Cell Count 4.41 M/uL (3.86-4.86)
[2018-06-04 07:12] LABS: Magnesium 2.6 mg/dL (1.8-2.4); Potassium 4.2 mmol/L (3.5-5.1)
[2018-06-04] MEDS: ARFORMOTEROL TARTRATE 15 MCG/2 ML VIAL.NEB NEB SCH (07:22)
[2018-06-04] MEDS: FLUTICASONE 50MCG NASAL SPRAY NAS SCH (08:23)
[2018-06-04] MEDS: predniSONE 20 MG TAB PO SCH (08:23)
[2018-06-04] MEDS: ALPRAZOLAM 1 MG TABLET PO PRN (08:38)
[2018-06-04] MEDS ORDERED: ALPRAZOLAM 1 MG TABLET PO PRN (10:18)
--- NOTE | 2018-06-04 10:26 | P.DS ---
Admission Date: 06/03/18 Discharge Date: 06/04/18 Primary Care Provider: Dr. Leedzma; Pulmonary-Dr. Li Disposition: ROUTINE DISCHARGE Discharge Condition: GOOD Reason for Admission: Shortness of breath, fatigue Consultations: None Procedures: Medical Problem list: Shortness of breath secondary to COPD exacerbation with history of steroid dependent Nausea and vomiting with GERD and large hiatal hernia Depression with anxiety Mild dehydration Anemia, mild Brief History of Present Illness: 63-year-old female presented to emergency room with shortness of breath and fatigue. Patient reports increasing shortness of breath and fatigue over the last couple of days. Patient with history of asthma a steroid dependent, depression, anemia. Patient also reported some nausea and vomiting. Patient came to the ER for further evaluation. She denied any significant chest pain, cough, fever , diarrhea or constipation. In the ER patient evaluated. White count slightly elevated. BMP pending. Chest x-ray showed no significant pneumonia. It showed a large hiatal hernia. Patient evaluated in the emergency room. She was given several breathing treatments. Patient was admitted for observation When I saw the patient ER, she appeared comfortable. Patient still reported some fatigue. She does not smoke or drink alcohol Hospital Course: Patient presented with shortness of breath. Patient found to have some wheezing. Chest x-ray unremarkable. Patient found to have COPD exacerbation. Patient is steroid dependent. Patient was admitted for treatment. Case discussed with her traveling passenger agent. At discharge patient without any significant shortness of breath. Oxygen saturations within normal range. At discharge she will continue with prednisone 20 mg daily for 5 days then she is to continue with her regular regimen of prednisone 10 mg daily. At discharge she will continue with Breo 1 puff daily, ProAir HFA 2 puffs 3 times a day as needed for shortness of breath and Daliresp 250 mcg daily. Recommendation is for the patient follow up with pulmonology within 1 week to follow up this hospitalization. Patient also had mild nausea and vomiting. Mild dehydration noted. Patient was given IV fluids with improvement. Nausea and vomiting resolved. Patient with history of GERD and large hiatal hernia. This was noted on x-ray. At discharge she will continue with Prilosec 40 mg daily. Patient is seen by GI as an outpatient. Recommendation is for the patient follow up with GI within 1- 2 weeks to follow up this hospitalization and continue her care. Patient has depression with anxiety. Patient will continue with her medication including Effexor XR 150 mg 1 pill twice daily and Xanax 1 mg daily as needed for anxiety. Patient has mild anemia. Recommendation to recheck lab-CBC in 1-2 weeks to monitor progress. This can be further addressed as an outpatient by GI. Vital Signs/Physical Exam: Temp Pulse Resp BP Pulse Ox 99.3 F 98 H 20 160/70 H 97 06/04/18 08:00 06/04/18 08:00 06/04/18 08:00 06/04/18 08:00 06/04/18 08:00 General: Alert, In no apparent distress, Oriented x3, Cooperative HEENT: Atraumatic Neck: Supple Respiratory: Clear to auscultation bilaterally, Normal air movement Cardiovascular: Normal pulses, Regular rate/rhythm Gastrointestinal: Normal bowel sounds, Soft and benign, Non-distended, No tenderness, No masses, No rebound, No guarding Musculoskeletal: No erythema, No tenderness, No warmth Integumentary: No tenderness/swelling, No erythema, No warmth, No cyanosis Neurological: Normal speech, Normal strength at 5/5 x4 extr, Normal tone, Normal affect Laboratory Data at Discharge: WBC 8.7 K/uL (4.3-10.9) D 06/04/18 06:41 Hgb 10.9 g/dL (12.0-15.0) L 06/04/18 06:41 Hct 33.7 % (36.0-45.0) L 06/04/18 06:41 Plt Count 316 K/uL (152-406) 06/04/18 06:41 PT 11.7 SECONDS (9.5-12.5) 06/03/18 15:00 INR 0.99 06/03/18 15:00 Sodium 142 mmol/L (136-145) 06/04/18 06:41 Potassium 4.2 mmol/L (3.5-5.1) 06/04/18 06:41 BUN 15 mg/dL (7-18) 06/04/18 06:41 Creatinine 1.00 mg/dL (0.55-1.3) 06/04/18 06:41 Glucose 112 mg/dL (74-106) H 06/04/18 06:41 Magnesium 2.6 mg/dL (1.8-2.4) H 06/04/18 06:41 Total Bilirubin 0.9 mg/dL (0.2-1.0) 06/03/18 15:50 AST 16 U/L (15-37) 06/03/18 15:50 ALT 20 U/L (12-78) 06/03/18 15:50 Alkaline Phosphatase 87 U/L (45-117) 06/03/18 15:50 Lipase 220 U/L (73-393) 06/03/18 15:50 Home Medications: ALPRAZolam [Xanax*] 1 mg PO DAILY PRN 02/20/14 Roflumilast [Daliresp] 250 mcg PO DAILY 04/15/18 Omeprazole [Prilosec] 40 mg PO DAILY 06/03/18 Venlafaxine HCl [Effexor XR] 150 mg PO BID 06/03/18 Albuterol Sulfate [Ventolin Hfa] 2 puff IH Q4HP PRN #1 hfa.aer.ad 06/04/18 Fluticasone/Vilanterol [Breo Ellipta 100-25 Mcg INH] 1 inh IH DAILY #1 blst.w.dev 06/04/18 predniSONE [Deltasone*] 10 mg PO DAILY #45 tab 06/04/18 New Medications: Albuterol Sulfate [Ventolin Hfa] 2 puff IH Q4HP PRN #1 hfa.aer.ad PRN Reason: Shortness Of Breath Fluticasone/Vilanterol [Breo Ellipta 100-25 Mcg INH] 1 inh IH DAILY #1 blst.w.dev predniSONE [Deltasone*] 10 mg PO DAILY #45 tab Patient Discharge Instructions: 1. Patient will need a follow up with her PCP in 1 week to follow up this hospitalization. 2. Patient presented with shortness of breath. Patient found to have some wheezing. Chest x-ray unremarkable. Patient found to have COPD exacerbation. Patient is steroid dependent. Patient was admitted for treatment. Case discussed with her traveling passenger agent. At discharge patient without any significant shortness of breath. Oxygen saturations within normal range. At discharge she will continue with prednisone 20 mg daily for 5 days then she is to continue with her regular regimen of prednisone 10 mg daily. At discharge she will continue with Breo 1 puff daily, ProAir HFA 2 puffs 3 times a day as needed for shortness of breath and Daliresp 250 mcg daily. Recommendation is for the patient follow up with pulmonology within 1 week to follow up this hospitalization. 3. Patient also had mild nausea and vomiting. Mild dehydration noted. Patient was given IV fluids with improvement. Nausea and vomiting resolved. Patient with history of GERD and large hiatal hernia. This was noted on x-ray. At discharge she will continue with Prilosec 40 mg daily. Patient is seen by GI as an outpatient. Recommendation is for the patient follow up with GI within 1-2 weeks to follow up this hospitalization and continue her care. 4. Patient has depression with anxiety. Patient will continue with her medication including Effexor XR 150 mg 1 pill twice daily and Xanax 1 mg daily as needed for anxiety. 5. Patient has mild anemia. Recommendation to recheck lab-CBC in 1-2 weeks to monitor progress. This can be further addressed as an outpatient by GI. Diet: AHA Activity: Ad ashia Time spent managing pt's care (in minutes): 55
[2018-06-04 12:48] VITALS: BP 152/64; TEMP 99.1
[2018-06-04 13:37] VITALS: O2SAT 96
[2018-06-04] MEDS ORDERED: HOME MED 1 EA UNK (Venlafaxine Hcl [Effexor Xr] 150 MG) PO SCH (21:00)
[2018-06-05] MEDS ORDERED: ROFLUMILAST 500 MCG TABLET PO SCH (09:00)
== END 2018-06-04 13:30 | disposition home or self-care (01) ==
LOC: ER 13:26 → ERHOLD 15:22 → 4TH 16:42
PROVIDERS: ADMIT Family Medicine; ATTEND Family Medicine
DX: J44.1 Chronic obstructive pulmonary disease with (acute) exacerbation (principal); F41.8 Other specified anxiety disorders; E86.0 Dehydration; D64.9 Anemia, unspecified; K21.9 Gastro-esophageal reflux disease without esophagitis; K44.9 Diaphragmatic hernia without obstruction or gangrene; J45.909 Unspecified asthma, uncomplicated; Z79.52 Long term (current) use of systemic steroids; Z88.6 Allergy status to analgesic agent; Z23 Encounter for immunization
CPT/HCPCS: 36415; 71045; 80048 ×2; 80076; 83690; 83735 ×2; 83880; 84145; 84439; 84443; 84484; 85025 ×2; 85610; 87040 ×2; 87804 ×2; 93005; 94640 ×2; 96361; 96365; 96375; 99285; G0008; G0378 ×2; J1650; J2405; J2930; J7030 ×2; J7605 ×2; Q2035; 81003; 81015; J7512

== ENCOUNTER 2018-07-02 23:57 | Emergency (ER) | payer OTHER ==
--- OUTSIDE RECORDS SUMMARY | 2018-07-03 00:01 | XMS REPORT ---
:1955 [facility] Address [address] [place] [address] Dr. [address]ole [address] [place] [address] Care Team Providers Name Role Phone Lopez [...] Negative Negative Performed at: - [facility] code=HELIAG) [address] [id number] Director: Chu Jenkins MD, Phone: [phone] [id number] SURGICAL PATHOLOGY, LEVEL [id number] 13:33:[address] [address] Tel: ( [phone] Laboratory Printed : 01/10/18 1333 [facility] DAEMPathology Page: 1 Patient: CORNELIO RUFFIN Birthdate: 1955 Age/Sex: 62/F Spec#: [id number]: Tyrell Patino MD Specimen Date: 01/07/18 Received Date: 01/07/18 Specimen: POLYP, COLON CLINICAL DIAGNOSIS anemia PATHOLOGIC DIAGNOSIS Cecal polyp, polypectomy: - Tubular adenoma. Comment:There is no high grade dysplasia or malignancy present. Pathologist:Crystal Brumfield MD Entered by:01/10/18 - 1256 LAB.YGP PROCEDURES: 13720 GROSS DESCRIPTION A. POLYP,COLON CECUM The specimen [...] LAB.YGP Patient: CORNELIO RUFFIN ReLoc: T4-A MR#: [id number] CONTINUED ON NEXT PAGE Dis: 01/08/18ta: DIS IN [address] [address] Laboratory Printed: 01/10/18 1334 [facility] DAEMPathology Page: 2 Patient : CORNELIO RUFFIN [id number] (Continued) GROSS DESCRIPTION (Continued) MICROSCOPIC DESCRIPTION A microscopic examination was performed to arrive at the diagnostic conclusion reported. Signed ( Electronically Signed) Crystal Brumfield MD 01/10/18 ------ ------ Patient: CORNELIO RUFFIN ReLoc: T4-A MR#: [id number] END OF REPORT Dis: 01/08/18ta: DIS [id number] 11:30:00 Test Item Value Reference Range Comments [...] code=GLU-T) Chemistry (test code=CA) 8.9 mg/dL 7.8-10.44 [id number] 06:56:00 Test Item Value Reference Range Comments Chemistry (test code=MG) 1.8 mg/dL 1.6-2.6 Comment Add to AM labsComment Add to AM [id number] 06:56:00 Test Item Value Reference Range Comments [...] Add to AM labsComment Add to AM jzfgIyawfxgran7395-77-17 04:30:00 Test Item Value Reference Range Comments [...] 0.0-0.7 Hematology (test code=BASO#) 0.1 thou/uL 0.0-0.2 Glqtgaakr1574-54-31 04:24:00 Test Item Value Reference Range Comments [...] code=GLU-T) Chemistry (test code=CA) 8.9 mg/dL 7.8-10.44 [id number] 15:26:00 Test Item Value Reference Range Comments Hematology (test code=HGBT) 8.8 g/dL 12.0-16.0 Hematology (test code=HCTT) 29.5 % 36.0-47.0 [id number] SURGICAL PATHOLOGY, LEVEL [id number] 14:22:00 [place] [address] Tel: ( [phone] Laboratory Printed : 01/07/18 1423 [facility] DAEMPathology Page: 1 Patient: CORNELIO RUFFIN Birthdate: 1955 Age/Sex: 62/F Spec#: [id number]: Tyrell Patino MD Specimen Date: [...] MD Entered by:01/07/18 - 1117 LAB.YGP PROCEDURES: 98868/2,05047/2, 69293 Patient: CORNELIO RUFFIN Re01/05/18Loc:T4-A MR#: [id number] CONTINUED ON NEXT PAGE Dis: Sta: ADM IN [address] [address] Tel: Laboratory Printed: [address] [place] [address] DAEMPathology Page: 2 --------- --- Patient: CORNELIO RUFFIN [id number] (Continued)------ ------ GROSS DESCRIPTION A. GASTRIC BIOPSY [...] : CORNELIO RUFFIN Re01/05/18Loc: T4- A MR#: [id number] END OF REPORT Dis: Sta: ADMINChemistry - Benji [id number] 13:00:00 Test Item Value Reference Range Comments [...] NEW METHODOLOGY.Method: Enzyme Linked Fluorescent Immunoassay (Benji)References: [employer] Benji Package Inserts - Directions for, September,October 2016, RealtimeBoard. Chemistry - Benji [id number] 13:00:00 Test Item Value Reference Range Comments Chemistry - Benji Testing 0.6 U/mL <4 Negative (test code=M2T) Chemistry - Benji Testing Less than 4.0 (test binj=WUINDQV662) U/mL=Negative 4.0 - 6.0 U/mL=Equivocal Greater than [...] Package Inserts - Directions for, September,October 2016, Realtime[employer]. Chemistry - Benji Testing 0.6 U/mL <4 Negative (test code=M2T) Chemistry - Benji Testing Less than 4.0 (test qxku=TIDRRPB850) U/mL=Negative 4.0 - 6.0 U/mL=Equivocal Greater than 6.0 U/mL=POSITIVE Chemistry - Benji Testing NEW METHOD Values obtained with (test code=ELIAVASNEW) different assay methods CANNOT be usedINTERCHANGEABLY.If in the course of monitoring a patient, the assay methodused for determining levels is changed, a newbaseline/serial monitoring may need to be performed.SEE REFERENCE RANGES FOR NEW METHODOLOGY.Method: Enzyme Linked Fluorescent Immunoassay (Benji)References: [employer] Benji Package Inserts - Directions forUse, September, October 2016, RealtimeBoard. Chemistry - Benji [id number] 13:00:00 Test Item Value Reference Range Comments Chemistry - Benji Testing CENP, Chela-1, RNP70, (test code=ELIAANAINTERP) Scl-70, Longo, SSA/Ro, SSB/La IgGAntibodies: Less than 7.0 Benji U/mL=Negative 7.0 - 10.0 Benji U/mL=Equivocal Greater than 10.0 Benji U/mL=VSDPLRMBD1PAZ IgG: Less than 5.0 Benji U/mL=Negative 5.0 - 10.0 Benji U/mL=Equivocal Greater than 10.0 Benji U/mL=POSITIVE Chemistry - Benji [id number] 12:38:00 Test Item Value Reference Range Comments Chemistry - Benji Testing (test code=CELTTGIGA) 0.4 EliAU/mL <7 Negative Comment add onChemistry - Benji [id number] 12:38:00 Test Item Value Reference Range Comments Chemistry - Benji Testing (test code=CELTTGIGG) 0.6 EliAU/mL <7 Negative Comment add onChemistry - Benji [id number] 12:38:00 Test Item Value Reference Range Comments Chemistry - Benij Testing Less than (test srhq=IPLAYTR152) 7.0 Benji U/mL=Negative 7.0 - 10.0 Benji U/mL=Equivocal Greater than 10.0 Benji U/mL=POSITIVE Comment add onChemistry - [id number] 12:33:00 Test Item Value Reference Range Comments Chemistry - Specials (test Non-Reactive NonReactive The panel screens for HIV-1 code=HIVT) p24 Antigen HIV-1/HIV-2Antibody. [id number] 10:27:00 Test Item Value Reference Range Comments Immunology (test code=SYPHABT) Nonreactive Nonreactive [id number] 10:25:00 Test Item Value Reference Range Comments [...] (test code=BASO#) 0.0 thou/uL 0.0-0.2 Hematology (test code=IN) MODERATE=15-30 cells (100X) 0-5/hpf Hematology (test code=HYPO) MODERATE=16-30 cells (100X) 0-5/hpf Hematology (test code=POLY) SLIGHT=2-3 cells (100X) 0-2/hpf Hematology (test code=OV) MODERATE=6-15 cells (100X) 0-1/hpf Hematology (test code=PCOMMENT) Appears Adequate [id number] 10:07:00 Test Item Value Reference Range Comments [...] Stool SCREEN (3) (test code=OCCSTS1) N Comment hovavVdowbhxeqo2007-60-94 16:59:00 Test Item Value Reference Range Comments [...] (test code=MPV) 10.9 fL 7.4-10.4 Chemistry - [id number] 13:59:00 Test Item Value Reference Range Comments [...] Individual is considered immune to HBV infection. [id number] 12:26:00 Test Item Value Reference Range Comments [...] Hematology (test code=MPV) 5.3 fL 7.4-10.4 Type [id number] 11:29:00 Test Item Value Reference Range Comments Blood Type Rh (test code=BT) O POSITIVE Antibody Screen (test code=ABSC) NEGATIVE Received Blood Or Been w/in Past 90 Days? UNKNOWNReceived Blood Or Been w/in Past 90 Days? NOScheduled Surgery Date: NO SURGERYIs Surgery Date Greater than 7 days from now? NOPacked Cells - Nkxlcmirqywm6714-35-68 11:29 :[id number] OP LRPC TFUSE [id number] 05:27:00 Test Item Value Reference Range Comments [...] 5-34 Chemistry (test code=ALT) 149 U/L 8-55 [id number] 05:18:00 Test Item Value Reference Range Comments [...] (test code=BASO#) 0.0 thou/uL 0.0-0.2 Chemistry - [id number] 00:59:00 Test Item Value Reference Range Comments Chemistry - Specials (test code=THEPAIGM) Non-Reactive NonReactive Chemistry - Specials (test code=THBSAG) Non-Reactive S/CO NonReactive Chemistry - Specials (test code=INTHBCM) Non-Reactive NonReactive Chemistry - Specials (test code=INTHEPC) Non-Reactive NonReactive Chemistry - BNP, HgbA1c, [id number] 19:45:00 Test Item Value Reference Range Comments Chemistry - BNP, HgbA1c, PTHi (test code=BNP) 100.4 pg/mL 0-100 Comment add [id number] 19:38:00 Test Item Value Reference Range Comments Chemistry (test 1.5 ng/mL 0-6.6 code=CKMBM-T) Chemistry (test Less than 0.010 < 0.028 code=TROPI-T) ng/mL Reference Range 0.00 - 0.028 ng/mL Negative 0.029 - 0.29 ng/mL Indeterminate Greater or Equal to 0.3 ng/mL Strongly suggests IN Comment add onChemistry - [id number] 18:21:00 Test Item Value Reference Range Comments Chemistry - Specials (test code=LINDSAY) 24.27 ng/mL 10-291 [id number] 18:14:00 Test Item Value Reference Range Comments [...] code=PO) SLIGHT=6-15 cells (100X) 0-5/hpf Hematology (test code=IN) MODERATE=15-30 cells (100X) 0-5/hpf Hematology (test code=HYPO) SLIGHT=6-15 cells (100X) 0-5/hpf Hematology (test code=POLY) MODERATE=3-4 cells (100X) 0-2/hpf Hematology (test code=SC) SLIGHT=2-5 cells (100X) 0-1/hpf Hematology (test code=OV) SLIGHT=2-5 cells (100X) 0-1/hpf Hematology (test code=EL) SLIGHT=2-5 cells (100X) 0-1/hpf Hematology (test code=TE) SLIGHT=2-5 cells (100X) 0-1/hpf Hematology (test code=PCOMMENT) Appears Adequate [id number] 17:59:00 Test Item Value Reference Range Comments [...] 5-34 Chemistry (test code=ALT) 220 U/L 8-55 [id number] 17:59:00 Test Item Value Reference Range Comments Chemistry (test code=IRON) 15 ug/dL 50-170 [id number] 17:59:00 Test Item Value Reference Range Comments Chemistry (test code=TIBC) 386 mcg/dL 265-497 [id number] 17:50:00 Test Item Value Reference Range Comments Coagulation (test 13.3 SEC 12.0-14.7 code=PT-T) Coagulation (test 1.0 ATTENTION: READ code=INR) CAREFULLY -The recommended therapeutic ranges for oral anticoagulanttreatments are: Low Intensity: 1.5 - 2.0 Moderate Intensity: 2.0 - 3.0 High Intensity (1): 2.5 - 3.5 High Intensity (2): 3.0 - 4.0 CRITICAL: > 4.0 Anticoagulant? NONEMedical Necessity SUSPECT COAGULOPATHYAnticoagulant? NONEMedical Necessity: SUSP [id number] 17:50:00 Test Item Value Reference Range Comments Coagulation (test code=PTT) 23.4 SEC 22.9-36.1 Anticoagulant? NONEMedical Necessity SUSPECT COAGULOPATHYAnticoagulant? NONEMedical Necessity: SUSP COAG
[2018-07-03] MEDS ORDERED: METHYLPREDNISOLONE 125 MG INJ ONE (01:01)
[2018-07-03] MEDS ORDERED: ONDANSETRON 4 MG/2 ML VIAL ONE (01:02)
[2018-07-03] MEDS ORDERED: NA CHLORIDE 0.9% 2,000 ML ONE (01:02)
[2018-07-03] MEDS ORDERED: MORPHINE 4 MG/ML SYR ONE (01:02)
[2018-07-03] MEDS ORDERED: ALBUTEROL 2.5 MG/3 ML NEB SOL ONE (01:32)
[2018-07-03] MEDS ORDERED: IPRATROPIUM BROM 0.5MG/2.5ML ONE (01:32)
[2018-07-03 01:48] LABS: MPV 7.8 fL (7.6-11.3)
[2018-07-03 02:00] LABS: ALT/SGPT 32 U/L (12-78); AST/SGOT 32 U/L (15-37); Albumin 3.3 g/dL (3.4-5.0); Alkaline Phosphatase 113 U/L (45-117); BUN Blood Urea Nitrogen 9 mg/dL (7-18); Bicarbonate 26 mmol/L (21-32); Bilirubin Direct < 0.1 mg/dL (0-0.2); Bilirubin Total 0.3 mg/dL (0.2-1.0); Creatine Phosphokinase 43 U/L (26-192); Glucose Level 85 mg/dL (74-106); Lipase 156 U/L (73-393); Potassium 3.7 mmol/L (3.5-5.1); Sodium Level 141 mmol/L (136-145); Troponin (Emerg Dept Use Only) < 0.02 ng/mL (0.0-0.045)
[2018-07-03 02:27] LABS: Protime INR 0.93
[2018-07-03] MEDS ORDERED: CLINDAMYCIN 600MG/D5W 600 MG/50 ML BAG IV ONE (02:33)
[2018-07-03 02:36] LABS: Hematocrit 31.9 % (36.0-45.0); MCV 77.6 fL (80-100); RBC Red Blood Cell Count 4.12 M/uL (3.86-4.86)
[2018-07-03 02:37] LABS: Absolute Lymphocytes (CBC) 3.3 K/uL (0.7-4.9); Absolute Monocytes 0.9 K/uL (0.1-1.3); Basophils % 0.3 % (0-1.3); Eosinophils % 0.9 % (0-4.4); Lymphocytes % 26.8 % (15.3-44.8)
--- NOTE | 2018-07-03 03:11 | ER ---
Nurse's Notes [facility] Name: Irma Cain Age: 63 yrs Sex: Female : 1955 Arrival Date: 07/02/2018 Time: 23:58 Bed 18 Private MD: Diagnosis: Acute frontal sinusitis;Acute pansinusitis Presentation: 07/03 00:09 Presenting complaint: Patient states: she thinks she has an infection of some sort aa1 because she is having severe pain to the R side of her face and she is beginning to swell under her R eye. States the pain is also causing her asthma to flare up. Transition of care: patient was not received from another setting of care. Onset of symptoms was July 02, 2018. Risk Assessment: Do you want to hurt yourself or someone else? Patient reports no desire to harm self or others. Initial Sepsis Screen: Does the patient meet any 2 criteria? HR > 90 bpm. Does the patient have a suspected source of infection? No. Patient's initial sepsis screen is negative. Care prior to arrival: None. 00:09 Method Of Arrival: Ambulatory aa1 00:09 Acuity: FELA 4 aa1 Triage Assessment: 00:18 General: Appears in no apparent distress. comfortable, Behavior is calm, cooperative, aa1 appropriate for age. Historical: - Allergies: 00:12 Aspirin; aa1 00:12 Neosporin (kyb-mof-mukrb); aa1 00:12 Talwin; aa1 - Home Meds: 00:18 alprazolam 1 mg Oral tab 1 tab four times a day [Active]; Daliresp 500 mcg Oral tab 1 aa1 tab once daily [Active]; Effexor XR 150 mg Oral cp24 2 cap once daily [Active]; omeprazole 40 mg Oral cpDR 1 cap once daily [Active]; prednisone 10 mg Oral tab 1 tab 2 times per day [Active]; Albuterol Inhl [Active]; - PMHx: 00:18 Anemia; Asthma; basal cell carcinoma; Depression; Osteoporosis; Anxiety; Hypertension; aa1 - PSHx: 00:18 ; Cholecystectomy; Tubal ligation; rotator cuff sx x2 on right; basal cell aa1 carcinoma removed from left side of neck; Knee surgery; - Immunization history:: Pneumococcal vaccine is up to date, Flu vaccine is up to date. - Social history:: Smoking status: Patient/guardian denies using tobacco, never smoked. - Ebola Screening: : No symptoms or risks identified at this time. Screenin:16 Abuse screen: Denies threats or abuse. Nutritional screening: No deficits noted. jd3 Tuberculosis screening: No symptoms or risk factors identified. Fall Risk Ambulatory Aid- None/Bed Rest/Nurse Assist (0 pts). Gait- Normal/Bed Rest/Wheelchair (0 pts) Mental Status- Oriented to own ability (0 pts). Total Rogers Fall Scale indicates No Risk (0-24 pts). Assessment: 00:11 General: Appears uncomfortable, Behavior is cooperative, appropriate for age, anxious, jd3 Reports knowing she has a sinus infection because of where the pain is. Pain: Complains of pain in head and face Quality of pain is described as aching, tender. Neuro: Level of Consciousness is awake, alert, obeys commands, Oriented to person, place, time, situation. Cardiovascular: Capillary refill < 3 seconds Patient's skin is warm and dry. Respiratory: Airway is patent Respiratory effort is even, unlabored, Respiratory pattern is regular, symmetrical, Breath sounds with wheezes bilaterally. GI: No signs and/or symptoms were reported involving the gastrointestinal system. : No signs and/or symptoms were reported regarding the genitourinary system. EENT: No signs and/or symptoms were reported regarding the EENT system. Derm: Skin is intact, Skin is dry, Skin is normal, Skin temperature is warm. Musculoskeletal: Circulation, motion, and sensation intact. Range of motion: intact in all extremities, Swelling present in right eye. 01:07 Reassessment: Patient appears in no apparent distress at this time. No changes from jd3 previously documented assessment. Patient and/or family updated on plan of care and expected duration. Pain level reassessed. Patient is alert, oriented x 3, equal unlabored respirations, skin warm/dry/pink. 02:11 Reassessment: Patient appears in no apparent distress at this time. Patient and/or jd3 family updated on plan of care and expected duration. Pain level reassessed. Patient is alert, oriented x 3, equal unlabored respirations, skin warm/dry/pink. Patient states feeling better. 03:11 Reassessment: Patient appears in no apparent distress at this time. Patient and/or jd3 family updated on plan of care and expected duration. Pain level reassessed. Patient is alert, oriented x 3, equal unlabored respirations, skin warm/dry/pink. Patient states feeling better. Vital Signs: 00:18 BP 195 / 94; Pulse 102; Resp 22; Temp 100.0; Pulse Ox 98% on R/A; Weight 54.43 kg; aa1 Height 5 ft. 1 in. (154.94 cm); Pain 8/10; 01:06 BP 176 / 93; Pulse 91; Resp 17 S; Pulse Ox 97% on R/A; jd3 02:11 BP 167 / 80; Pulse 93; Resp 15 S; Pulse Ox 97% on R/A; jd3 03:11 BP 178 / 80; Pulse 94; Resp 18 S; Pulse Ox 97% on R/A; jd3 00:18 Body Mass Index 22.67 (54.43 kg, 154.94 cm) aa1 ED Course: 07/02 23:58 Patient arrived in ED. ds1 07/03 00:10 Zach Prince, CANDACE is Primary Nurse. jd3 00:11 Triage completed. aa1 00:14 Roopa Pitts FNP is PHCP. nh 00:14 Titi Hahn MD is Attending Physician. nh 00:17 Patient has correct armband on for positive identification. Bed in low position. Call jd3 light in reach. Side rails up X 1. 00:17 Arm band placed on. jd3 01:07 X-ray completed. Portable x-ray completed in exam room. Patient tolerated procedure sg4 well. 01:07 Missed attempt(s): 22 gauge in left antecubital area. Bleeding controlled, band aid jd3 applied, catheter tip intact. 01:08 Chest Single View XRAY In Process Unspecified. EDMS 01:[address] via stretcher. kw1 01:41 CT Maxillofacial W/cont In Process Unspecified. EDMS 01:41 Inserted saline lock: 22 gauge in left antecubital area, using aseptic technique. Blood jd3 collected. placed by [employer]. 01:42 CT completed. Patient tolerated procedure well. Patient moved back from [place]. kw1 03:37 No provider procedures requiring assistance completed. IV discontinued, intact, jd3 bleeding controlled, No redness/swelling at site. Pressure dressing applied. 03:42 Urine Microscopic Only Sent. oe Administered Medications: 01:19 Drug: NS 0.9% (30 ml/kg) 30 ml/kg Route: IV; Rate: bolus; Site: left antecubital; jd3 03:30 Follow up: Response: No adverse reaction; IV Status: Completed infusion jd3 01:20 Drug: morphine 4 mg Route: IVP; Site: left antecubital; jd3 02:31 Follow up: Response: No adverse reaction jd3 01:20 Drug: Zofran 4 mg Route: IVP; Site: left antecubital; jd3 02:31 Follow up: Response: No adverse reaction jd3 01:21 Drug: SOLU-Medrol 125 mg Route: IVP; Site: left antecubital; jd3 02:31 Follow up: Response: No adverse reaction jd3 01:56 Drug: Albuterol - atroVENT (3:1) (2.5 mg - 0.5 mg) 3 ml Route: Nebulizer; jd3 02:31 Follow up: Response: No adverse reaction jd3 02:30 Drug: Clindamycin 300 mg Route: IVPB; Infused Over: 30 mins; Site: left antecubital; jd3 03:30 Follow up: Response: No adverse reaction; IV Status: Completed infusion jd3 Point of Care Testing: Blood Glucose: 01:06 Blood Glucose: 89 mg/dL; jd3 Ranges: Outcome: 03:10 Discharge ordered by . az 03:37 Discharged to home ambulatory, with family. jd3 03:37 Condition: stable 03:37 Discharge instructions given to patient, Instructed on discharge instructions, follow up and referral plans. medication usage, Demonstrated understanding of instructions, follow-up care, medications, Prescriptions given X 1. 03:48 Patient left the ED. jd3 Signatures: Dispatcher [employer] EDMS Nancy Jalloh RN RN aa1 Roopa Pitts, APPEALS OFFICER APPEALS OFFICER Anahi Stephenson ds1 Ramiro Grey Jonathon, RN RN jd3 Sunitha Montoya kw1 Pat Larios sg4
--- NOTE | 2018-07-03 03:11 | EDPHYS ---
Physician Documentation [facility] Name: Irma Cain Age: 63 yrs Sex: Female : 1955 Arrival Date: 07/02/2018 Time: 23:58 Bed 18 Private MD: ED Physician Titi Hahn HPI: 07/03 02:58 This 63 yrs old Female presents to ER via Ambulatory with complaints of nh Facial Swelling - Pain. 02:58 Onset: The symptoms/episode began/occurred 2 day(s) ago. Associated signs and symptoms: nh Pertinent positives: fever, headache. Modifying factors: The patient symptoms are alleviated by nothing, the patient symptoms are aggravated by nothing. The patient has not experienced similar symptoms in the past. The patient has not recently seen a physician. Patient reports right sided facial pain x 2 days. Worse today. Reports sinus pressure and pain to face. Denies vision changes. Historical: - Allergies: 00:12 Aspirin; aa1 00:12 Neosporin (zyx-mts-umzjm); aa1 00:12 Talwin; aa1 - Home Meds: 00:18 alprazolam 1 mg Oral tab 1 tab four times a day [Active]; Daliresp 500 mcg Oral tab 1 aa1 tab once daily [Active]; Effexor XR 150 mg Oral cp24 2 cap once daily [Active]; omeprazole 40 mg Oral cpDR 1 cap once daily [Active]; prednisone 10 mg Oral tab 1 tab 2 times per day [Active]; Albuterol Inhl [Active]; - PMHx: 00:18 Anemia; Asthma; basal cell carcinoma; Depression; Osteoporosis; Anxiety; Hypertension; aa1 - PSHx: 00:18 ; Cholecystectomy; Tubal ligation; rotator cuff sx x2 on right; basal cell aa1 carcinoma removed from left side of neck; Knee surgery; - Immunization history:: Pneumococcal vaccine is up to date, Flu vaccine is up to date. - Social history:: Smoking status: Patient/guardian denies using tobacco, never smoked. - Ebola Screening: : No symptoms or risks identified at this time. ROS: 02:58 Eyes: Negative for injury, pain, redness, and discharge, Neck: Negative for injury, nh pain, and swelling, Cardiovascular: Negative for chest pain, palpitations, and edema, Abdomen/GI: Negative for abdominal pain, nausea, vomiting, diarrhea, and constipation, Back: Negative for injury and pain, : Negative for injury, bleeding, discharge, and swelling, MS/Extremity: Negative for injury and deformity, Skin: Negative for injury, rash, and discoloration, Neuro: Negative for headache, weakness, numbness, tingling, and seizure, Psych: Negative for depression, anxiety, suicide ideation, homicidal ideation, and hallucinations, Allergy/Immunology: Negative for hives, rash, and allergies, Endocrine: Negative for neck swelling, polydipsia, polyuria, polyphagia, and marked weight changes, Hematologic/Lymphatic: Negative for swollen nodes, abnormal bleeding, and unusual bruising. 02:58 Constitutional: Positive for fever. 02:58 ENT: Positive for sinus congestion. 02:58 Respiratory: Positive for cough. Exam: 02:58 Constitutional: This is a well developed, well nourished patient who is awake, alert, nh and in no acute distress. Head/Face: Normocephalic, atraumatic. Eyes: Pupils equal round and reactive to light, extra-ocular motions intact. Lids and lashes normal. Conjunctiva and sclera are non-icteric and not injected. Cornea within normal limits. Periorbital areas with no swelling, redness, or edema. Neck: Trachea midline, no thyromegaly or masses palpated, and no cervical lymphadenopathy. Supple, full range of motion without nuchal rigidity, or vertebral point tenderness. No Meningismus. Chest/axilla: Normal chest wall appearance and motion. Nontender with no deformity. No lesions are appreciated. Cardiovascular: Regular rate and rhythm with a normal S1 and S2. No gallops, murmurs, or rubs. Normal PMI, no JVD. No pulse deficits. Abdomen/GI: Soft, non-tender, with normal bowel sounds. No distension or tympany. No guarding or rebound. No evidence of tenderness throughout. Back: No spinal tenderness. No costovertebral tenderness. Full range of motion. Skin: Warm, dry with normal turgor. Normal color with no rashes, no lesions, and no evidence of cellulitis. MS/ Extremity: Pulses equal, no cyanosis. Neurovascular intact. Full, normal range of motion. Neuro: Awake and alert, GCS 15, oriented to person, place, time, and situation. Cranial nerves II-XII grossly intact. Motor strength 5/5 in all extremities. Sensory grossly intact. Cerebellar exam normal. Normal gait. Psych: Awake, alert, with orientation to person, place and time. Behavior, mood, and affect are within normal limits. 02:58 ENT: External ear(s): are unremarkable, Ear canal(s): are normal, TM's: are normal, Nose: is normal, Mouth: is normal, Posterior pharynx: is normal, Dental exam: normal. 02:58 Respiratory: Breath sounds: wheezing: Vital Signs: 00:18 BP 195 / 94; Pulse 102; Resp 22; Temp 100.0; Pulse Ox 98% on R/A; Weight 54.43 kg; aa1 Height 5 ft. 1 in. (154.94 cm); Pain 8/10; 01:06 BP 176 / 93; Pulse 91; Resp 17 S; Pulse Ox 97% on R/A; jd3 02:11 BP 167 / 80; Pulse 93; Resp 15 S; Pulse Ox 97% on R/A; jd3 03:11 BP 178 / 80; Pulse 94; Resp 18 S; Pulse Ox 97% on R/A; jd3 00:18 Body Mass Index 22.67 (54.43 kg, 154.94 cm) aa1 MDM: 00:14 Patient medically screened. me 03:09 Data reviewed: vital signs, nurses notes, lab test result(s), radiologic studies, I nh have discussed the patient's presentation/case with the attending Emergency Department Physician; and as a result, I will discharge patient. Counseling: I had a detailed discussion with the patient and/or guardian regarding: the historical points, exam findings, and any diagnostic results supporting the discharge/admit diagnosis, lab results, radiology results, the need for outpatient follow up, to return to the emergency department if symptoms worsen or persist or if there are any questions or concerns that arise at home. 07/03 00:38 Order name: Basic Metabolic Panel me 07/03 00:38 Order name: Blood Culture Adult (2) me 07/03 00:38 Order name: CBC with Diff me 07/03 00:38 Order name: Ckmb me 07/03 00:38 Order name: CPK me 07/03 00:38 Order name: Lactate; Complete Time: 02:18 me 07/03 00:38 Order name: LFT's; Complete Time: 02:18 nh 07/03 00:38 Order name: Lipase; Complete Time: 02:18 me 07/03 00:38 Order name: Procalcitonin me 07/03 00:38 Order name: Protime (+inr); Complete Time: 02:57 me 07/03 00:38 Order name: Ptt, Activated; Complete Time: 02:57 me 07/03 00:38 Order name: Troponin (emerg Dept Use Only); Complete Time: 02:18 me 07/03 00:38 Order name: Urine Microscopic Only me 07/03 00:39 Order name: Basic Metabolic Panel; Complete Time: 02:18 EDMS 07/03 00:38 Order name: Chest Single View XRAY me 07/03 00:38 Order name: Accucheck; Complete Time: 01:06 me 07/03 00:38 Order name: CT Maxillofacial W/cont me 07/03 00:39 Order name: Blood Culture EDMS 07/03 00:39 Order name: CBC with Automated Diff EDMS 07/03 00:39 Order name: CKMB Creatine Kinase MB; Complete Time: 02:18 EDMS 07/03 00:39 Order name: Creatine Phosphokinase; Complete Time: 02:18 EDMS 07/03 00:50 Order name: EKG; Complete Time: 00:51 jd3 07/03 01:54 Order name: Manual Differential EDMS 07/03 03:42 Order name: Urine Dipstick--Ancillary (enter results) 07/03 00:38 Order name: Cardiac monitoring; Complete Time: 00:51 me 07/03 00:38 Order name: EKG - Nurse/Tech; Complete Time: 01:08 me 07/03 00:38 Order name: IV Saline Lock - Large Bore; Complete Time: 01:21 nh 07/03 00:38 Order name: Labs collected and sent; Complete Time: 01:02 me 07/03 00:38 Order name: O2 Per Protocol; Complete Time: 00:49 me 07/03 00:38 Order name: O2 Sat Monitoring; Complete Time: 00:50 me 07/03 00:38 Order name: Urine Dipstick-Ancillary (obtain specimen); Complete Time: 03:38 nh Administered Medications: 01:19 Drug: NS 0.9% (30 ml/kg) 30 ml/kg Route: IV; Rate: bolus; Site: left antecubital; jd3 03:30 Follow up: Response: No adverse reaction; IV Status: Completed infusion jd3 01:20 Drug: morphine 4 mg Route: IVP; Site: left antecubital; jd3 02:31 Follow up: Response: No adverse reaction jd3 01:20 Drug: Zofran 4 mg Route: IVP; Site: left antecubital; jd3 02:31 Follow up: Response: No adverse reaction jd3 01:21 Drug: SOLU-Medrol 125 mg Route: IVP; Site: left antecubital; jd3 02:31 Follow up: Response: No adverse reaction jd3 01:56 Drug: Albuterol - atroVENT (3:1) (2.5 mg - 0.5 mg) 3 ml Route: Nebulizer; jd3 02:31 Follow up: Response: No adverse reaction jd3 02:30 Drug: Clindamycin 300 mg Route: IVPB; Infused Over: 30 mins; Site: left antecubital; jd3 03:30 Follow up: Response: No adverse reaction; IV Status: Completed infusion jd3 Point of Care Testing: Blood Glucose: :06 Blood Glucose: 89 mg/dL; jd3 Ranges: Critical Glucose Levels:Adult <50 mg/dl or >400 mg/dl <40 mg/dl or >180 mg/dl Disposition: 07/03/18 03:10 Discharged to Home. Impression: Acute frontal sinusitis, Acute pansinusitis. - Condition is Stable. - Discharge Instructions: Sinusitis, Adult. - Prescriptions for Augmentin 875- 125 mg Oral Tablet - take 1 tablet by ORAL route every 12 hours for 10 days; 20 tablet. - Medication Reconciliation Form, Thank You Letter, Antibiotic Education, Prescription Opioid Use form. - Follow up: Private Physician; When: 5 - 6 days; Reason: Recheck today's complaints. - Problem is new. - Symptoms are unchanged. Addendum: 07/06/2018 21:53 Co-signature as Attending Physician, Titi Hahn MD Available for consultation at p s1 all times. . Signatures: Dispatcher Med[employer] Nancy Talley RN RN aa1 Roopa Pitts, LEAD QA ANALYST LEAD QA ANALYST Zach Cuevas RN RN jd3 Singer, Phillip, MD MD ps1 Corrections: (The following items were deleted from the chart) 07/03 03:48 03:10 07/03/2018 03:10 Discharged to Home. Impression: Acute frontal sinusitis; Acute jd3 pansinusitis. Condition is Stable. Forms are Medication Reconciliation Form, Thank You Letter, Antibiotic Education, Prescription Opioid Use. Follow up: Private Physician; When: 5 - 6 days; Reason: Recheck today's complaints. Problem is new. Symptoms are unchanged. nh
[2018-07-03 03:53] VITALS: TEMP 100
[2018-07-03 03:54] VITALS: O2SAT 97
[2018-07-03 03:57] VITALS: BP 178/80
[2018-07-03 04:49] LABS: Anisocytosis 1+; Blood Morphology Comment NOTED (NOT SEEN); Ovalocytes 2+; Platelet Estimate ADEQ
[2018-07-03 05:50] LABS: Urine Blood TRACE (NEG); Urine Glucose NEGATIVE (NEG); Urine Protein NEGATIVE (NEG); Urine pH 5.5 (5.0-7.0)
[2018-07-03 05:56] LABS: Urine Bacteria <20 /HPF (<20); Urine Culture Reflex Order NOT NEEDED; Urine RBC NONE SEEN /HPF (NONE SEEN)
--- NOTE | 2018-07-03 12:35 | RAD REPORT ---
EXAM DESCRIPTION: CT - FC CLINICAL HISTORY: FACIAL PAIN Pain and swelling. COMPARISON: [id number] dated 02/19/2014 TECHNIQUE: Axial 2 mm thick images of the face were obtained with sagittal and coronal reconstructio n images. All CT scans are performed using dose optimization technique as appropriate and may include automated exposure control or mA/KV adjustment according to patient size. FINDINGS: No acute facial bone fracture is seen.The mandible is intact. The globes and orbital contents are grossly unremarkable.No evidence of orbital cellulitis or presept al cellulitis. Mild soft tissue swelling is seen right intraorbital region. Multifocal sinusitis is present involving the frontal, ethmoid, maxillary sphenoid sinus. Fluid is al so seen in the left mastoid. IMPRESSION: Multifocal paranasal sinusitis is suspected.Mild fluid in the left mastoid. Mild infraorbital soft tissue swelling without abscess. No evidence of orbital cellulitis or presepta l cellulitis.
--- NOTE | 2018-07-03 12:37 | RAD REPORT ---
EXAM DESCRIPTION: RAD - Chest Single View - 07/03/2018 1:08 am CLINICAL HISTORY: SOB Chest pain. COMPARISON: Chest Single View dated 06/03/2018; Chest Single View dated 03/10/2018; Chest Single View dated 07/30/2017; CHEST SINGLE VIEW dated 07/05/2014 FINDINGS: Portable technique limits examination quality. The lungs are grossly clear. The heart is normal in size. No displaced fractures.Moderate axial hiata l hernia. IMPRESSION: No acute intrathoracic process suspected. Moderate axial hiatal hernia.
--- NOTE | 2018-07-04 07:13 | EKG ---
Test Date: 2018-07-03 Test Time: 01:12:19 Box Annealer: CARMENCITA MEASUREMENT RESULTS: Intervals: Rate: 99 MO: 140 QRSD: 66 QT: 324 QTc: 415 Ferris: P: 70 MO: 140 QRS: 59 T: 37 INTERPRETIVE STATEMENTS: Normal sinus rhythm Normal ECG Compared to ECG 06/03/2018 15:25:01 Sinus tachycardia no longer present T-wave abnormality no longer present Electronically Signed On 07-04-18 07:11:10 AIR CONDITIONING MANAGER by Francisco Francis
== END 2018-07-03 03:48 | disposition home or self-care (01) ==
LOC: ER 23:57
DX: J01.40 Acute pansinusitis, unspecified (principal); J01.10 Acute frontal sinusitis, unspecified; I10 Essential (primary) hypertension; F41.9 Anxiety disorder, unspecified; F32.9 Major depressive disorder, single episode, unspecified; J45.909 Unspecified asthma, uncomplicated; Z88.6 Allergy status to analgesic agent; Z88.8 Allergy status to other drugs, medicaments and biological substances; Z85.828 Personal history of other malignant neoplasm of skin
CPT/HCPCS: 36415; 70487; 71045; 80048; 80076; 82550; 82553; 82962; 83605; 83690; 84145; 84484; 85025; 85610; 85730; 87040 ×2; 93005; 94640; 96361; 96365; 96375; 99285; J2405; J2930; J7030; Q9967; 81003; 81015

== ENCOUNTER 2018-07-08 09:51 | Observation (INO) | payer OTHER ==
--- OUTSIDE RECORDS SUMMARY | 2018-07-08 09:59 | XMS REPORT ---
:1955 Author Organization [facility] Address [address] [place] [address] [address]. [address] [place] [address] Care Team Providers Name Role Phone Lopez [...] Negative Negative Performed at: - [facility] code=HELIAG) [address] [id number] Director: Chu Jenkins MD, Phone: [phone] [id number] SURGICAL PATHOLOGY, LEVEL [id number] 13:33:[address] [address] Tel: Laboratory Printed : 01/10/18 1333 MAHAD DAEMPathology Page: 1 Patient: CORNELIO RUFFIN Birthdate: 1955 Age/Sex: 62/F Spec#: [id number]: Tyrell Patino MD Specimen Date: 01/07/18 Received Date: 01/07/18 Specimen: POLYP, COLON CLINICAL DIAGNOSIS anemia PATHOLOGIC DIAGNOSIS Cecal polyp, polypectomy: - Tubular adenoma. Comment:There is no high grade dysplasia or malignancy present. Pathologist:Crystal Brumfield MD Entered by:01/10/18 - 1256 LAB.YGP PROCEDURES: 16297 GROSS DESCRIPTION A. POLYP,COLON CECUM The specimen is received in 10% formalin, and is labeled with the patient's name and "cecumcolon polyp." The specimen consists of two pink-pino soft tissue fragments measuring 1.2 x0.8 x 0.5 cm in aggregate. The largest fragment bisected. The specimen is entirelysubmitted in one cassette. Dictated by: Tina Kimball Entered by: 01/07/18 - 1311 LAB.YGP Patient: CRONELIO RFUFIN ReLoc: T4-A MR#: [id number] CONTINUED ON NEXT PAGE Dis: 01/08/18ta: DIS IN [address] [address] Laboratory Printed: 01/10/18 1339 [facility] DAEMPathology Page: 2 Patient : CORNELIO RUFFIN [id number] (Continued) GROSS DESCRIPTION (Continued) MICROSCOPIC DESCRIPTION A microscopic examination was performed to arrive at the diagnostic conclusion reported. Signed ( Electronically Signed) Crystal Brumfield MD 01/10/18 ------ ------ Patient: CORNELIO RUFFIN ReLoc: T4-A MR#: [id number] END OF REPORT Dis: 01/08/18ta: DIS [id number] 11:30:00 Test Item Value Reference Range Comments [...] code=GLU-T) Chemistry (test code=CA) 8.9 mg/dL 7.8-10.44 [id number] 06:56:00 Test Item Value Reference Range Comments Chemistry (test code=MG) 1.8 mg/dL 1.6-2.6 Comment Add to AM labsComment Add to AM [id number] 06:56:00 Test Item Value Reference Range Comments [...] Add to AM labsComment Add to AM [id number] 04:30:00 Test Item Value Reference Range Comments [...] 0.0-0.7 Hematology (test code=BASO#) 0.1 thou/uL 0.0-0.2 [id number] 04:24:00 Test Item Value Reference Range Comments [...] code=GLU-T) Chemistry (test code=CA) 8.9 mg/dL 7.8-10.44 [id number] 15:26:00 Test Item Value Reference Range Comments Hematology (test code=HGBT) 8.8 g/dL 12.0-16.0 Hematology (test code=HCTT) 29.5 % 36.0-47.0 [id number] SURGICAL PATHOLOGY, LEVEL [id number] 14:22:00 [place] [address] Tel: Laboratory Printed : 01/07/18 1423 [facility] DAEMPathology Page: 1 Patient: CORNELIO RUFFIN Birthdate: 1955 Age/Sex: 62/F Spec#: [id number]: Tyrell Patino MD Specimen Date: [...] MD Entered by:01/07/18 - 1117 LAB.YGP PROCEDURES: 37150/2,10559/2, 39086 Patient: CORNELIO RUFFIN Re01/05/18Loc:T4-A MR#: [id number] CONTINUED ON NEXT PAGE Dis: Sta: ADM IN [address] [address] Tel: Laboratory Printed: [address] [place] [address] DAEMPathology Page: 2 --------- --- Patient: CORNELIO RUFFIN [id number] (Continued)------ ------ GROSS DESCRIPTION A. GASTRIC BIOPSY [...] : CORNELIO RUFFIN Re01/05/18Loc: T4- A MR#: [id number] END OF REPORT Dis: Sta: ADMINChemistry - Benji [id number] 13:00:00 Test Item Value Reference Range Comments [...] NEW METHODOLOGY.Method: Enzyme Linked Fluorescent Immunoassay (Benji)References: [employer] Benji Package Inserts - Directions for, September,October 2016, [employer]. Chemistry - Benji [id number] 13:00:00 Test Item Value Reference Range Comments Chemistry - Benji Testing 0.6 U/mL <4 Negative (test code=M2T) Chemistry - Benji Testing Less than 4.0 (test prcn=EVFSIUG169) U/mL=Negative 4.0 - 6.0 U/mL=Equivocal Greater than [...] Package Inserts - Directions for, September,October 2016, [employer]. Chemistry - Benji Testing 0.6 U/mL <4 Negative (test code=M2T) Chemistry - Benji Testing Less than 4.0 (test jpnn=SNMARKV075) U/mL=Negative 4.0 - 6.0 U/mL=Equivocal Greater than 6.0 U/mL=POSITIVE Chemistry - Benji Testing NEW METHOD Values obtained with (test code=ELIAVASNEW) different assay methods CANNOT be usedINTERCHANGEABLY.If in the course of monitoring a patient, the assay methodused for determining levels is changed, a newbaseline/serial monitoring may need to be performed.SEE REFERENCE RANGES FOR NEW METHODOLOGY.Method: Enzyme Linked Fluorescent Immunoassay (Benji)References: [employer] Benji Package Inserts - Directions forUse, September, October 2016, [employer]. Chemistry - Benji [id number] 13:00:00 Test Item Value Reference Range Comments Chemistry - Benji Testing CENP, Chela-1, RNP70, (test code=ELIAANAINTERP) Scl-70, Longo, SSA/Ro, SSB/La IgGAntibodies: Less than 7.0 Benji U/mL=Negative 7.0 - 10.0 Benji U/mL=Equivocal Greater than 10.0 Benji U/mL=[id number] IgG: Less than 5.0 Benji U/mL=Negative 5.0 - 10.0 Benji U/mL=Equivocal Greater than 10.0 Benji U/mL=POSITIVE Chemistry - Benji [id number] 12:38:00 Test Item Value Reference Range Comments Chemistry - Benji Testing (test code=CELTTGIGA) 0.4 EliAU/mL <7 Negative Comment add onChemistry - Benji [id number] 12:38:00 Test Item Value Reference Range Comments Chemistry - Benji Testing (test code=CELTTGIGG) 0.6 EliAU/mL <7 Negative Comment add onChemistry - Benji [id number] 12:38:00 Test Item Value Reference Range Comments Chemistry - Benji Testing Less than (test hzqs=IPPEUWQ341) 7.0 Benji U/mL=Negative 7.0 - 10.0 Benji U/mL=Equivocal Greater than 10.0 Benji U/mL=POSITIVE Comment add onChemistry - [id number] 12:33:00 Test Item Value Reference Range Comments Chemistry - Specials (test Non-Reactive NonReactive The panel screens for HIV-1 code=HIVT) p24 Antigen HIV-1/HIV-2Antibody. [id number] 10:27:00 Test Item Value Reference Range Comments Immunology (test code=SYPHABT) Nonreactive Nonreactive [id number] 10:25:00 Test Item Value Reference Range Comments [...] (test code=BASO#) 0.0 thou/uL 0.0-0.2 Hematology (test code=AK) MODERATE=15-30 cells (100X) 0-5/hpf Hematology (test code=HYPO) MODERATE=16-30 cells (100X) 0-5/hpf Hematology (test code=POLY) SLIGHT=2-3 cells (100X) 0-2/hpf Hematology (test code=OV) MODERATE=6-15 cells (100X) 0-1/hpf Hematology (test code=PCOMMENT) Appears Adequate [id number] 10:07:00 Test Item Value Reference Range Comments [...] Stool SCREEN (3) (test code=OCCSTS1) N Comment [id number] 16:59:00 Test Item Value Reference Range Comments [...] (test code=MPV) 10.9 fL 7.4-10.4 Chemistry - [id number] 13:59:00 Test Item Value Reference Range Comments [...] Individual is considered immune to HBV infection. [id number] 12:26:00 Test Item Value Reference Range Comments [...] Hematology (test code=MPV) 5.3 fL 7.4-10.4 Type [id number] 11:29:00 Test Item Value Reference Range Comments Blood Type Rh (test code=BT) O POSITIVE Antibody Screen (test code=ABSC) NEGATIVE Received Blood Or Been w/in Past 90 Days? UNKNOWNReceived Blood Or Been w/in Past 90 Days? NOScheduled Surgery Date: NO SURGERYIs Surgery Date Greater than 7 days from now? NOPacked Cells - [id number] 11:29 :[id number] OP LRPC TFUSE [id number] 05:27:00 Test Item Value Reference Range Comments [...] 5-34 Chemistry (test code=ALT) 149 U/L 8-55 [id number] 05:18:00 Test Item Value Reference Range Comments [...] (test code=BASO#) 0.0 thou/uL 0.0-0.2 Chemistry - [id number] 00:59:00 Test Item Value Reference Range Comments Chemistry - Specials (test code=THEPAIGM) Non-Reactive NonReactive Chemistry - Specials (test code=THBSAG) Non-Reactive S/CO NonReactive Chemistry - Specials (test code=INTHBCM) Non-Reactive NonReactive Chemistry - Specials (test code=INTHEPC) Non-Reactive NonReactive Chemistry - BNP, HgbA1c, [id number] 19:45:00 Test Item Value Reference Range Comments Chemistry - BNP, HgbA1c, PTHi (test code=BNP) 100.4 pg/mL 0-100 Comment add [id number] 19:38:00 Test Item Value Reference Range Comments Chemistry (test 1.5 ng/mL 0-6.6 code=CKMBM-T) Chemistry (test Less than 0.010 < 0.028 code=TROPI-T) ng/mL Reference Range 0.00 - 0.028 ng/mL Negative 0.029 - 0.29 ng/mL Indeterminate Greater or Equal to 0.3 ng/mL Strongly suggests AK Comment add onChemistry - [id number] 18:21:00 Test Item Value Reference Range Comments Chemistry - Specials (test code=LINDSAY) 24.27 ng/mL 10-291 [id number] 18:14:00 Test Item Value Reference Range Comments [...] code=PO) SLIGHT=6-15 cells (100X) 0-5/hpf Hematology (test code=AK) MODERATE=15-30 cells (100X) 0-5/hpf Hematology (test code=HYPO) SLIGHT=6-15 cells (100X) 0-5/hpf Hematology (test code=POLY) MODERATE=3-4 cells (100X) 0-2/hpf Hematology (test code=SC) SLIGHT=2-5 cells (100X) 0-1/hpf Hematology (test code=OV) SLIGHT=2-5 cells (100X) 0-1/hpf Hematology (test code=EL) SLIGHT=2-5 cells (100X) 0-1/hpf Hematology (test code=TE) SLIGHT=2-5 cells (100X) 0-1/hpf Hematology (test code=PCOMMENT) Appears Adequate [id number] 17:59:00 Test Item Value Reference Range Comments [...] 5-34 Chemistry (test code=ALT) 220 U/L 8-55 [id number] 17:59:00 Test Item Value Reference Range Comments Chemistry (test code=IRON) 15 ug/dL 50-170 [id number] 17:59:00 Test Item Value Reference Range Comments Chemistry (test code=TIBC) 386 mcg/dL 265-497 [id number] 17:50:00 Test Item Value Reference Range Comments Coagulation (test 13.3 SEC 12.0-14.7 code=PT-T) Coagulation (test 1.0 ATTENTION: READ code=INR) CAREFULLY -The recommended therapeutic ranges for oral anticoagulanttreatments are: Low Intensity: 1.5 - 2.0 Moderate Intensity: 2.0 - 3.0 High Intensity (1): 2.5 - 3.5 High Intensity (2): 3.0 - 4.0 CRITICAL: > 4.0 Anticoagulant? NONEMedical Necessity SUSPECT COAGULOPATHYAnticoagulant? NONEMedical Necessity: SUSP [id number] 17:50:00 Test Item Value Reference Range Comments Coagulation (test code=PTT) 23.4 SEC 22.9-36.1 Anticoagulant? NONEMedical Necessity SUSPECT COAGULOPATHYAnticoagulant? NONEMedical Necessity: SUSP COAG
[2018-07-08] MEDS ORDERED: IPRATROPIUM BROM 0.5MG/2.5ML ONE (10:17)
[2018-07-08] MEDS ORDERED: LEVALBUTEROL 1.25 MG/3 ML NEB ONE (10:17)
[2018-07-08] MEDS ORDERED: METHYLPREDNISOLONE 125 MG INJ ONE (10:18)
[2018-07-08 10:22] LABS: Arterial Blood Carboxyhemoglob 1.3 % (0-1.5); Blood Gas Oxyhemoglobin 92.3 % (94-97)
[2018-07-08 10:39] LABS: Absolute Lymphocytes (CBC) 1.1 K/uL (0.7-4.9); Absolute Monocytes 0.5 K/uL (0.1-1.3); Absolute Neutrophil 17.1 K/uL (1.8-8.0); Basophils % 0.1 % (0-1.3); Eosinophils % 0.3 % (0-4.4); Hematocrit 35.6 % (36.0-45.0); Lymphocytes % 5.7 % (15.3-44.8); MCH 24.7 pg (27.0-35.0); MCV 77.4 fL (80-100); MPV 8.1 fL (7.6-11.3); Monocytes % 2.8 % (3.3-12.3)
[2018-07-08] MEDS ORDERED: FENTANYL CITR 100 MCG/2 ML ONE (10:41)
[2018-07-08] MEDS ORDERED: PANTOPRAZOLE 40 MG INJ ONE (10:41)
[2018-07-08] MEDS ORDERED: predniSONE 20 MG TAB ONE (10:41)
[2018-07-08] MEDS ORDERED: NA CHLORIDE 0.9% 1,000 ML ONE (10:42)
[2018-07-08] MEDS ORDERED: MAGNESIUM SULFATE 1 gm IVPB 1 GM/100 ML BAG IV ONE (10:42)
--- NOTE | 2018-07-08 10:51 | ER ---
Nurse's Notes [facility] Name: Irma Cain Age: 63 yrs Sex: Female : 1955 Arrival Date: 07/08/2018 Time: 09:52 Bed 20 Private MD: Diagnosis: Severe persistent asthma with (acute) exacerbation Presentation: 07/08 10:03 Presenting complaint: Patient states: Worsening SOB x 2 days. Transition of care: hb patient was not received from another setting of care. Onset of symptoms was July 07, 2018. Risk Assessment: Do you want to hurt yourself or someone else? Patient reports no desire to harm self or others. Care prior to arrival: None. 10:03 Method Of Arrival: Ambulatory hb 10:03 Acuity: FELA 2 hb 10:45 Initial Sepsis Screen: Does the patient meet any 2 criteria?. hb 12:19 Initial Sepsis Screen: Does the patient have a suspected source of infection? No. hb Patient's initial sepsis screen is negative. Triage Assessment: 10:07 General: Appears distressed, Behavior is cooperative, anxious. Pain: Pain currently is hb 4 out of 10 on a pain scale. EENT: No signs and/or symptoms were reported regarding the EENT system. Neuro: Level of Consciousness is awake, alert, obeys commands, Oriented to person, place, time, situation. Cardiovascular: Heart tones S1 S2 present Capillary refill < 3 seconds Patient's skin is warm and dry. Respiratory: Reports shortness of breath at rest Airway is patent Trachea midline Respiratory effort is labored, Respiratory pattern is tachypnea Breath sounds are coarse Onset: The symptoms/episode began/occurred yesterday, the patient has severe shortness of breath. GI: No signs and/or symptoms were reported involving the gastrointestinal system. : No signs and/or symptoms were reported regarding the genitourinary system. Derm: No signs and/or symptoms reported regarding the dermatologic system. Skin is intact, is healthy with good turgor. Musculoskeletal: No signs and/or symptoms reported regarding the musculoskeletal system. Historical: - Allergies: 10:06 Aspirin; hb 10:06 Benadryl; hb 10:06 Neosporin ([id number]); hb 10:06 NSAIDS; hb 10:06 Talwin; hb 10:06 Tylenol; hb - Home Meds: 10:06 Adderall XR 20 mg Oral cp24 1 cap 2 times daily [Active]; Albuterol Inhl [Active]; hb alprazolam 1 mg Oral tab 1 tab four times a day [Active]; Breo Ellipta 100-25 mcg/dose inhalation dsdv [Active]; Daliresp 500 mcg Oral tab 1 tab once daily [Active]; Deplin (algal oil) Oral [Active]; Effexor XR 150 mg Oral cp24 2 cap once daily [Active]; omeprazole 40 mg Oral cpDR 1 cap once daily [Active]; prednisone 10 mg Oral tab 1 tab 2 times per day [Active]; Ventolin Rotahaler/Rotacaps Inhl [Active]; - PMHx: 10:06 Osteoporosis; Depression; Anxiety; Asthma; Anemia; Hypertension; basal cell carcinoma; hb - PSHx: 10:06 Cholecystectomy; rotator cuff sx x2 on right; Tubal ligation; ; basal cell hb carcinoma removed from left side of neck; Knee surgery; - Immunization history:: Adult Immunizations up to date. - Social history:: Smoking status: Patient/guardian denies using tobacco. - Ebola Screening: : No symptoms or risks identified at this time. Screenin:07 Abuse screen: Denies threats or abuse. Denies injuries from another. Nutritional hb screening: No deficits noted. Tuberculosis screening: No symptoms or risk factors identified. Fall Risk None identified. Assessment: 10:08 General: see triage assessment. hb 11:07 Reassessment: HR 120s, respirations 20-24, mildly labored, improved from previous hb assessment, SpO2 >94% on RA. Awaiting lab and radiology results at this time. 12:02 Reassessment: Patient appears in no apparent distress at this time. Patient and/or hb family updated on plan of care and expected duration. Pain level reassessed. Patient is alert, oriented x 3, equal unlabored respirations, skin warm/dry/pink. 12:15 Cardiovascular: Rhythm is sinus tachycardia. hb Vital Signs: 10:04 BP 177 / 78; Pulse 128; Resp 32; Temp 98.4; Pulse Ox 93% on R/A; Pain 3/10; hb 10:52 BP 145 / 77; Pulse 129; Resp 24; Pulse Ox 94% on R/A; ca1 11:45 BP 146 / 78; Pulse 114; Resp 19; Pulse Ox 97% on R/A; Pain 4/10; hb ED Course: 09:52 Patient arrived in ED. as 10:03 Frannie Dyer, RN is Primary Nurse. hb 10:04 Triage completed. hb 10:04 Arm band placed on right wrist. hb 10:05 Patient has correct armband on for positive identification. Placed in gown. Bed in low hb position. Call light in reach. Side rails up X 1. bus driver/monitor on. Pulse ox on. NIBP on. 10:07 Laura Red FNP-C is PHCP. snw 10:08 oMi Berrios MD is Attending Physician. snw 10:20 Missed attempt(s): 24 gauge in left antecubital area. ca1 10:24 Inserted saline lock: 22 gauge in left forearm, using aseptic technique. Blood hb collected. 10:34 EKG done, by power tool repair technician. reviewed by Laura ELMORE. at1 10:45 Donald Vanegas MD is Hospitalizing Provider. snw 10:45 Chest Single View XRAY Sent. hb 10:55 X-ray completed. Portable x-ray completed in exam room. Patient tolerated procedure ls3 well. 11:03 Chest Single View XRAY In Process Unspecified. EDMS 11:32 Notified ED physician of a critical lab result(s). Lactate 2.2. ca1 12:18 No provider procedures requiring assistance completed. Patient admitted, IV remains in hb place. Administered Medications: 10:19 Drug: Xopenex (3) 1.25 mg Route: Inhalation; hb 10:44 Drug: Magnesium Sulfate 1 grams Route: IVPB; Infused Over: 1 hrs; Site: left forearm; hb 10:44 Drug: fentaNYL (PF) 25 mcg Route: IVP; Site: left forearm; hb 10:44 Drug: NS 0.9% 1000 ml Route: IV; Rate: 125 ml/hr; Site: left forearm; hb 10:44 Drug: predniSONE 60 mg Route: PO; hb 10:44 Drug: ProTONIX 40 mg Route: IVP; Site: left forearm; hb Outcome: 10:49 Decision to Hospitalize by Provider. snw 12:18 Admitted to Med/surg accompanied by tech, via wheelchair, room 213, Report called to Alfredo MARIA 12:18 Condition: stable 12:18 Instructed on the need for admit, Demonstrated understanding of instructions. 12:37 Patient left the ED. hb Signatures: Dispatcher [employer] EDMS Laura Red, TELEPHONE SOLICITOR-C TELEPHONE SOLICITOR-Csnw Mattie Bridges Amanda, display coordinator EKG Tat1 Frannie Dyer, CANDACE RN hb Alex Baxter ls3 Laura Burnett RN RN ca1 Corrections: (The following items were deleted from the chart) 10:10 10:03 Presenting complaint: Patient states: Worsening SOB x 2 days. Recently seen in ED hb for same s/s hb
--- NOTE | 2018-07-08 10:52 | EDPHYS ---
Physician Documentation [facility] Name: Irma Cain Age: 63 yrs Sex: Female : 1955 Arrival Date: 07/08/2018 Time: 09:52 Bed 20 Private MD: ED Physician Moi Berrios HPI: 07/08 10:18 This 63 yrs old Female presents to ER via Ambulatory with complaints of snw Breathing Difficulty. 10:18 The patient has shortness of breath at rest. Onset: The symptoms/episode began/occurred snw gradually, and became worse 2 day(s) ago. Duration: The symptoms are continuous. Associated signs and symptoms: Pertinent positives: This patient does not have any pertinent positive signs or symptoms associated with shortness of breath. Severity of symptoms: At their worst the symptoms were severe in the emergency department the symptoms are unchanged. The patient has experienced similar episodes in the past, chronically. The patient has been recently been admitted at [facility], was discharged last week. Historical: - Allergies: 10:06 Aspirin; hb 10:06 Benadryl; hb 10:06 Neosporin ([id number]); hb 10:06 NSAIDS; hb 10:06 Talwin; hb 10:06 Tylenol; hb - Home Meds: 10:06 Adderall XR 20 mg Oral cp24 1 cap 2 times daily [Active]; Albuterol Inhl [Active]; hb alprazolam 1 mg Oral tab 1 tab four times a day [Active]; Breo Ellipta 100-25 mcg/dose inhalation dsdv [Active]; Daliresp 500 mcg Oral tab 1 tab once daily [Active]; Deplin (algal oil) Oral [Active]; Effexor XR 150 mg Oral cp24 2 cap once daily [Active]; omeprazole 40 mg Oral cpDR 1 cap once daily [Active]; prednisone 10 mg Oral tab 1 tab 2 times per day [Active]; Ventolin Rotahaler/Rotacaps Inhl [Active]; - PMHx: 10:06 Osteoporosis; Depression; Anxiety; Asthma; Anemia; Hypertension; basal cell carcinoma; hb - PSHx: 10:06 Cholecystectomy; rotator cuff sx x2 on right; Tubal ligation; ; basal cell hb carcinoma removed from left side of neck; Knee surgery; - Immunization history:: Adult Immunizations up to date. - Social history:: Smoking status: Patient/guardian denies using tobacco. - Ebola Screening: : No symptoms or risks identified at this time. ROS: 10:16 Eyes: Negative for injury, pain, redness, and discharge, ENT: Negative for injury, snw pain, and discharge, Neck: Negative for injury, pain, and swelling, Cardiovascular: Negative for chest pain, palpitations, and edema, Abdomen/GI: Negative for abdominal pain, nausea, vomiting, diarrhea, and constipation, Back: Negative for injury and pain, : Negative for injury, bleeding, discharge, and swelling, MS/Extremity: Negative for injury and deformity, Skin: Negative for injury, rash, and discoloration, Neuro: Negative for headache, weakness, numbness, tingling, and seizure, Psych: Negative for depression, anxiety, suicide ideation, homicidal ideation, and hallucinations. 10:16 Constitutional: Positive for malaise. 10:16 Respiratory: Positive for cough, dyspnea on exertion, orthopnea, shortness of breath, wheezing. Exam: 10:15 Head/Face: Normocephalic, atraumatic. Eyes: Pupils equal round and reactive to light, snw extra-ocular motions intact. Lids and lashes normal. Conjunctiva and sclera are non-icteric and not injected. Cornea within normal limits. Periorbital areas with no swelling, redness, or edema. ENT: Nares patent. No nasal discharge, no septal abnormalities noted. Tympanic membranes are normal and external auditory canals are clear. Oropharynx with no redness, swelling, or masses, exudates, or evidence of obstruction, uvula midline. Mucous membranes moist. Neck: Trachea midline, no thyromegaly or masses palpated, and no cervical lymphadenopathy. Supple, full range of motion without nuchal rigidity, or vertebral point tenderness. No Meningismus. Chest/axilla: Normal chest wall appearance and motion. Nontender with no deformity. No lesions are appreciated. 10:15 Abdomen/GI: Soft, non-tender, with normal bowel sounds. No distension or tympany. No guarding or rebound. No evidence of tenderness throughout. Back: No spinal tenderness. No costovertebral tenderness. Full range of motion. Skin: Warm, dry with normal turgor. Normal color with no rashes, no lesions, and no evidence of cellulitis. MS/ Extremity: Pulses equal, no cyanosis. Neurovascular intact. Full, normal range of motion. Neuro: Awake and alert, GCS 15, oriented to person, place, time, and situation. Cranial nerves II-XII grossly intact. Motor strength 5/5 in all extremities. Sensory grossly intact. Cerebellar exam normal. Normal gait. 10:15 Constitutional: The patient appears alert, anxious, in obvious distress, mildly distressed, moderately distressed, restless, uncomfortable. 10:15 Cardiovascular: Rate: tachycardic, Heart sounds: normal, Edema: is not appreciated. 10:15 Respiratory: moderate respiratory distress is noted, Respirations: accessory muscle usage, intercostal retractions, shallow respirations, tachypnea, Breath sounds: wheezing: expiratory is heard diffusely. Vital Signs: 10:04 BP 177 / 78; Pulse 128; Resp 32; Temp 98.4; Pulse Ox 93% on R/A; Pain 3/10; hb 10:52 BP 145 / 77; Pulse 129; Resp 24; Pulse Ox 94% on R/A; ca1 11:45 BP 146 / 78; Pulse 114; Resp 19; Pulse Ox 97% on R/A; Pain 4/10; hb MDM: 10:08 Patient medically screened. snw 10:49 Data reviewed: vital signs, nurses notes. Data interpreted: Pulse oximetry: on room air snw is 93 %. Plan: will initiate a nebulizer treatment. Physician consultation: Donald Vanegas MD was called at 10:49, was contacted at 10:49, regarding admission, to the telemetry unit. 07/08 10:15 Order name: CBC with Diff; Complete Time: 11:16 snw 07/08 10:15 Order name: Chem 7; Complete Time: 11:16 snw 07/08 10:15 Order name: Blood Culture Adult (2) snw 07/08 10:15 Order name: Lactate; Complete Time: 11:27 snw 07/08 10:15 Order name: Procalcitonin; Complete Time: 11:20 snw 07/08 10:15 Order name: ABG snw 07/08 10:15 Order name: Chest Single View XRAY; Complete Time: 11:16 snw 07/08 10:15 Order name: TS; Complete Time: 11:27 snw 07/08 10:15 Order name: TSH; Complete Time: 11:16 snw 07/08 10:59 Order name: CBC Smear Scan; Complete Time: 11:16 EDMS Administered Medications: 10:19 Drug: Xopenex (3) 1.25 mg Route: Inhalation; hb 10:44 Drug: Magnesium Sulfate 1 grams Route: IVPB; Infused Over: 1 hrs; Site: left forearm; hb 10:44 Drug: fentaNYL (PF) 25 mcg Route: IVP; Site: left forearm; hb 10:44 Drug: NS 0.9% 1000 ml Route: IV; Rate: 125 ml/hr; Site: left forearm; hb 10:44 Drug: predniSONE 60 mg Route: PO; hb 10:44 Drug: ProTONIX 40 mg Route: IVP; Site: left forearm; hb Disposition: 16:14 Co-signature as Attending Physician, Moi Berrios MD I agree with the assessment and stefanie plan of care. Disposition: 07/08/18 10:49 Hospitalization ordered by Donald Vanegas for Observation. Preliminary diagnosis is Severe persistent asthma with (acute) exacerbation. - Bed requested for Telemetry/MedSurg (observation). - Status is Observation. hb - Condition is Stable. - Problem is an acute exacerbation. - Symptoms have worsened. UTI on Admission? No Signatures: Dispatcher [employer] EDMS Mary Sanchez Corey, MD MD cha Therrien, Shelly, TRANSCRIPTION SPECIALIST-C TRANSCRIPTION SPECIALIST-Csnw Frannie Dyer RN RN Corrections: (The following items were deleted from the chart) 11:48 10:49 Hospitalization Ordered by Donald Vanegas MD for Observation. Preliminary diagnosis bd is Severe persistent asthma with (acute) exacerbation. Bed requested for Telemetry/MedSurg (observation). Status is Observation. Condition is Stable. Problem is an acute exacerbation. Symptoms have worsened. UTI on Admission? No. snw 12:37 11:48 07/08/2018 10:49 Hospitalization Ordered by Donald Vanegas MD for Observation. hb Preliminary diagnosis is Severe persistent asthma with (acute) exacerbation. Bed requested for Telemetry/MedSurg (observation). Status is Observation. Condition is Stable. Problem is an acute exacerbation. Symptoms have worsened. UTI on Admission? No. bd
--- NOTE | 2018-07-08 11:05 | RAD REPORT ---
EXAM DESCRIPTION: RAD - Chest Single View - 07/08/2018 10:57 am CLINICAL HISTORY: Cough, shortness of breath COMPARISON: July 03, 2018 TECHNIQUE: AP portable chest image was obtained 1037 hours . FINDINGS: No mass, consolidation or failure findings in the lung parenchyma. Interstitial markings a re mildly prominent, similar to the comparison. Heart and vasculature are normal. No measurable pleur al effusion and no pneumothorax. No acute bony abnormality seen. No acute aortic finding. Slight full ness of the left hilum is unchanged. Patient has a moderately large hiatal hernia present also stable in size. IMPRESSION: No acute cardiopulmonary process. Above detailed chest findings are stable over the short interval back to July 03.
[2018-07-08 11:10] LABS: Urine White Blood Cell Casts OK
[2018-07-08 11:11] LABS: Anisocytosis 1+; Blood Morphology Comment NOTED (NOT SEEN); Elliptocytes 1+; Platelet Estimate ADEQ; Platelets, Giant FEW; Poikilocytosis 1+; Polychromasia 2+; Potassium 3.5 mmol/L (3.5-5.1); Teardrop Cell 1+; Thyroid Stimulating Hormone 0.458 uIU/mL (0.360-3.740)
[2018-07-08] MEDS ORDERED: ONDANSETRON 4 MG/2 ML VIAL IV PRN (12:06)
--- NOTE | 2018-07-08 12:48 | EKG ---
Test Date: 2018-07-08 Test Time: 10:10:15 Inspector Aligning: CATHLEEN MEASUREMENT RESULTS: Intervals: Rate: 122 ME: 116 QRSD: 64 QT: 326 QTc: 464 [place]: P: 80 ME: 116 QRS: 71 T: 39 INTERPRETIVE STATEMENTS: Sinus tachycardia Nonspecific ST and T wave abnormality Abnormal ECG Compared to ECG 07/03/2018 01:12:19 ST (T wave) deviation now present Sinus rhythm no longer present Electronically Signed On 07-08-18 12:47:48 JAIL OFFICER by Pravin Solis
[2018-07-08] MEDS: AZITHROMYCIN IV 500 MG in NA CHLORIDE 0.9% 250 ML IVPB SCH ×3 (13:00→14:18)
[2018-07-08] MEDS: IPRATROPIUM BROM 0.5MG/2.5ML NEB SCH ×2 (13:14→15:54)
[2018-07-08] MEDS: ALBUTEROL 2.5 MG/3 ML NEB SOL NEB SCH ×2 (13:14→15:54)
[2018-07-08 14:04] VITALS: BMI 23.0
[2018-07-08] MEDS: ACETAMINOPHEN 500 MG TAB PO PRN ×2 (14:20→19:27)
--- NOTE | 2018-07-08 16:37 | P.CNS ---
Date of Consult: 07/08/18 Reason for Consult: Asthma exacerbation Chief Complaint: Shortness of breath History of Present Illness: Patient is 63 years of age steroid-dependent asthmatic became worse over the last week became particularly over last night worsening shortness of breath patient I cannot afford to take any long-acting bronchodilators she does does take Dalresp patient did increase the prednisone to 30 mg recently uses nebulizers has frequent flare ups denies any fever chills cough sputum hemoptysis Allergies aspirin Allergy (Intermediate, Verified 11/07/12 16:55) Anaphylaxis bacitracin [From Neosporin ([id number])] Allergy (Intermediate, Verified 16:55) aquino skin bacitracin zinc [From Neosporin ([id number])] Allergy (Intermediate, Verified 11/07/12 16:55) aquino skin diphenhydramine HCl [From Benadryl] Allergy (Intermediate, Verified 06/03/18 18: 20) Hives neomycin sulfate [From Neosporin ([id number])] Allergy (Intermediate, Verified 11/07/12 16:55) aquino skin pentazocine lactate [From Talwin] Allergy (Intermediate, Verified 06/03/18 18:19 ) Itching polymyxin B [From Neosporin ([id number])] Allergy (Intermediate, Verified 16:55) aquino skin Neosporin ([id number]-prb-[id number]) Allergy (Uncoded 06/03/18 18:20) Itching NSAIDS Allergy (Uncoded 02/11/18 06:38) Unknown Home Medications: ALPRAZolam [Xanax*] 1 mg PO QID 02/20/14 Roflumilast [Daliresp] 500 mcg PO DAILY 04/15/18 Omeprazole [Prilosec] 40 mg PO DAILY 06/03/18 Venlafaxine HCl [Effexor XR] 150 mg PO BID 06/03/18 predniSONE [Deltasone*] 10 mg PO DAILY #45 tab 06/04/18 - Past Medical/Surgical History Diabetic: No -: Asthma, steroid dependent -: Depression -: Osteoporosis -: GERD with hiatal hernia -: Obesity -: -: Tubal ligation -: cholecystectomy -: cataract surgery -: rt shoulder sx x2 -: sx on left knee Psychosocial/ Personal History: Patient is . She has 1 child. She is retired. - Family History Mother Medical History: Heart disease, Hypertension, Diabetes Father Medical History: Heart disease, Hypertension, Lung disease, Cancer, Other (see notes) Notes: asbestosis - Social History Smoking Status: Never smoker Alcohol use: No CD- Drugs: No Caffeine use: Yes Place of Residence: Home Review of Systems General: Weakness Respiratory: Cough, Shortness of Breath Physical Examination Temp Pulse Resp BP Pulse Ox 98.7 F 120 H 18 185/58 H 96 07/08/18 12:00 07/08/18 12:00 07/08/18 12:00 07/08/18 12:00 07/08/18 12:00 General: Alert, In no apparent distress, Oriented x3 HEENT: Atraumatic Neck: Supple Respiratory: Expiratory wheezes Cardiovascular: No edema, Normal S1 S2 Laboratory Data (last 24 hrs) 07/08/18 10:25: Sodium 139, Potassium 3.5, BUN 7, Creatinine 0.80, Glucose 98 07/08/18 10:25: WBC 18.7 H D, Hgb 11.4 L, Hct 35.6 L, Plt Count 446 H - Problems (1) Asthma exacerbation Onset Date: 06/06/18 Current Visit: No Status: Acute Plan: Patient is 63 years of age admitted with asthma exacerbation she has a history of recurrent exacerbations steroid dependent non compliant cannot afford her long-acting bronchodilators Breo does help lower at this time I suggest changing over to a theophylline 200 mg once a day and will try another biological agents as an outpatient at low-dose Zithromax patient has osteoporosis I have advised her to take vitamin anti with calcium and Biphosphonate labs reviewed chest x-ray clear change to p.o. Zithromax possible discharge tomorrow I will bring her some samples of Breo
[2018-07-08] MEDS: ENOXAPARIN 40 MG/0.4 ML SQ SCH ×2 (17:00→17:31)
[2018-07-08] MEDS ORDERED: NA CHLORIDE 0.9% 1,000 ML IV ONE (17:12)
[2018-07-08] MEDS: METHYLPREDNISOLONE 40 MG INJ IV SCH (17:31)
[2018-07-08] MEDS: ALPRAZOLAM 0.5 MG TABLET PO SCH ×2 (17:31→20:28)
[2018-07-08] MEDS ORDERED: guaiFENesin 100 MG/5 ML UCUP PO PRN (17:38)
[2018-07-08 18:53] LABS: Urine Appearance CLEAR; Urine Bilirubin NEGATIVE (NEG); Urine Blood TRACE (NEG); Urine Color YELLOW; Urine Glucose 3+ (NEG); Urine Protein NEGATIVE (NEG); Urine Urobilinogen 0.2 mg/dL (0.2-1.0); Urine pH 5.5 (5.0-7.0)
[2018-07-08 19:03] LABS: Urine Microscopic Reflex ORDER UMIC
[2018-07-08 19:22] LABS: Urine Amorphous Sediment 1+ /HPF (NONE SEEN); Urine Bacteria <20 /HPF (<20); Urine Culture Reflex Order NOT NEEDED; Urine RBC <5 /HPF (NONE SEEN)
[2018-07-08] MEDS: PHENOL 1.4% ORAL SPRAY 180ML MM PRN (19:27)
[2018-07-08] MEDS: THEOPHYLLINE SR 100 MG TAB PO SCH (20:23)
[2018-07-08] MEDS: VENLAFAXINE HCL XR 75 MG CAP PO SCH (20:28)
[2018-07-09] MEDS: METHYLPREDNISOLONE 40 MG INJ IV SCH ×3 (00:15→17:10)
--- NOTE | 2018-07-09 03:03 | HP ---
Date of Admission: 07/08/2018 Code Status: Full. Chief Complaint: Shortness of breath. Primary Care Physician: Out of town. History Of Present Illness: The patient is a 63-year-old female with past medical history of asthma, osteoporosis, depression, GERD, obesity, comes in with significant shortness of breath. The patient does see pulmonology as an outpatient. She has been using her nebulizers more than usual; however, still continues to be significantly short of breath. Does report some chills. No fevers. The patie nt is chronically steroid dependent and has been compliant with her medications. The patient denies any tobacco use. No exposures. Denies any ill contacts. No nausea, vomiting, or chest pain. The p atient's symptoms are constant, moderate, progressively worsening. Therefore, she came into the ER f or further evaluation. Upon arrival, her vital signs showed a pulse rate of 128, respirations 32, bl ood pressure was elevated at 177/78. The patient was struggling for breath and was unable to complet e her sentences without becoming short of breath. She was given 1 g of magnesium in the ER. Her [place] [address], which may be related to her chronic steroid use, [place] rita is above her usual baseline of 12. ABG showed pH of 7.48, pCO2 was 36, PO2 was 74. She was hypo xemic, did have an elevated lactate level at 2.2. The patient was given breathing treatments and sup plemental oxygen, which improved her condition. Her chest x-ray did not show any acute infiltrates. The patient was then referred for admission. When seen in the ER, she was awake, alert, oriented x3 , in some moderate respiratory distress. Past Medical History: Asthma, steroid dependent, depression, osteoporosis, GERD with hiatal hernia, obesity. Past Surgical History: , tubal ligation, cholecystectomy, cataract surgery, right shoulder surgery x2, left knee surgery. Allergies: ASPIRIN, BACITRACIN, NEOMYCIN, POLYMYXIN B, DIPHENHYDRAMINE, PENTAZOCINE, NEOSPORIN, AND NSAIDS. Medications: List reviewed. Social History: The patient denies any tobacco use. No alcohol use or illicit drug use. Never smok ed in the past either. The patient lives at home and is independent in her activities of daily [facility]. Family History: Father has heart disease, hypertension, lung disease, cancer, specifically asbestosi s. Review of Systems: Ten point system reviewed, negative except as per HPI. Physical Examination: Vital Signs: Temperature 98.4, heart rate 128, blood pressure 177/78, respirations 32, O2 93% on shell m air. General: Awake, alert, oriented x3, in mild respiratory distress. Elderly female, ill-appearing. HEENT: Normocephalic, atraumatic. PERRLA. EOMI. Moist mucous membranes. Oropharynx is clear. No rmal dentition. Conjunctivae anicteric. Neck: Supple. No JVD. Trachea midline. CV: S1, S2. Sinus tachycardia. No murmurs. Peripheral pulses present bilaterally. Respiratory: Diminished breath sounds. Diffuse wheezing heard. The patient is tachypneic with use of accessory muscles. No stridor. Gastrointestinal: Abdomen is soft, nontender, nondistended. Positive bowel sounds. No guarding or rigidity. Extremities: No clubbing, cyanosis, or edema. No calf tenderness. Neuro: Cranial nerves 2 through 12 intact grossly. No focal neurological deficit. Speech is normal . Skin: No rashes. Normal skin turgor. Psych: Mood is slightly anxious. Affect is full. Insight and judgment are good. Laboratory Data: Sodium 139, potassium 3.5, chloride 104, CO2 27, BUN 7, creatinine 0.8, glucose 98, lactate 2.2, calcium 8.8. Procalcitonin, less than 0.05. TSH 0.45. ABG; pH 7.48, pCO2 36, PO2 74, bicarb 26. WBC 18.7, H and H 11.4 and 35.6, platelets 446, neutrophils 91%. Chest x-ray shows no a cute cardiopulmonary process, slight fullness of the left hilum, unchanged, moderately large hiatal h ernia present, stable in size. EKG; sinus tachycardia, rate of 122, nonspecific ST-T wave abnormalit ies. Assessment And Plan: A 63-year-old female with, 1.Acute asthma exacerbation. We will continue nebulizer treatments and add IV steroids, use supplem ental oxygen, continue Daliresp. We will consult the patient's pharmacology teacher, Dr. Li. Continu e to monitor pulse ox. 2.Major depressive disorder, in remission. Continue serotonin-norepinephrine reuptake Inhibitor. 3.Osteoporosis. 4.Gastroesophageal reflux disease with hiatal hernia. Continue proton pump inhibitor. 5.Gastrointestinal and deep venous thrombosis prophylaxis with proton pump inhibitor and Lovenox. 6.Metabolic acidosis. 7.Neutrophilic leukocytosis. Plan: Admit the patient to Med-Surg. Place in observation. We will add azithromycin for prophylaxi s due to possible underlying infection. Monitor closely. Obtain influenza screen. FRANC Voice ID: [id number]
[2018-07-09] MEDS: IPRATROPIUM BROM 0.5MG/2.5ML NEB SCH ×8 (03:05→23:32)
[2018-07-09] MEDS: ALBUTEROL 2.5 MG/3 ML NEB SOL NEB SCH ×4 (03:05→08:04)
[2018-07-09] MEDS: ALPRAZOLAM 0.5 MG TABLET PO SCH ×5 (04:14→20:43)
[2018-07-09] MEDS: PANTOPRAZOLE 40MG TABLET PO SCH (06:01)
[2018-07-09 07:08] LABS: Absolute Lymphocytes (CBC) 0.3 K/uL (0.7-4.9); Absolute Monocytes 0.2 K/uL (0.1-1.3); Absolute Neutrophil 8.7 K/uL (1.8-8.0); Basophils % 0.2 % (0-1.3); Hematocrit 47.8 % (36.0-45.0); Lymphocytes % 2.7 % (15.3-44.8); MCH 25.1 pg (27.0-35.0); MPV 8.2 fL (7.6-11.3); Monocytes % 2.5 % (3.3-12.3); RBC Red Blood Cell Count 6.12 M/uL (3.86-4.86)
[2018-07-09 07:30] LABS: Potassium 3.7 mmol/L (3.5-5.1)
[2018-07-09] MEDS: VENLAFAXINE HCL XR 75 MG CAP PO SCH ×2 (08:17→20:42)
[2018-07-09] MEDS: THEOPHYLLINE SR 100 MG TAB PO SCH ×2 (08:17→20:41)
[2018-07-09] MEDS: AZITHROMYCIN 250 MG TAB PO SCH (08:18)
[2018-07-09] MEDS ORDERED: POTASSIUM CL SA 10 MEQ TAB PO ONE (09:00)
[2018-07-09] MEDS ORDERED: ROFLUMILAST 500 MCG TABLET PO SCH (09:00)
--- NOTE | 2018-07-09 09:56 | P.PN ---
Subjective Date of Service: 07/09/18 Chief Complaint: Shortness of breath Subjective: Improving (Patient is doing somewhat better still has shortness of breath on mild exertion) Review of Systems Respiratory: Cough, Shortness of Breath Physical Examination - Vital Signs Temperature: 97.2 F Blood Pressure: 166/72 Pulse: 108 Respirations: 18 Pulse Ox (%): 95 - Physical Exam General: Alert, In no apparent distress, Oriented x3 Respiratory: Expiratory wheezes Cardiovascular: No edema, Normal S1 S2 - Studies Laboratory Data (last 24 hrs) 07/08/18 10:25: Sodium 139, Potassium 3.5, BUN 7, Creatinine 0.80, Glucose 98 07/08/18 10:25: WBC 18.7 H D, Hgb 11.4 L, Hct 35.6 L, Plt Count 446 H Assessment & Plan - Problems (Diagnosis) (1) Asthma exacerbation Onset Date: 06/06/18 Current Visit: No Status: Acute Plan: Patient is 63 years of age admitted with asthma exacerbation steadily improving possible discharge home tomorrow on Zithromax 250 mg daily for 7 days to take prednisone 10 mg twice a day, Sammy-Dur or 200 mg once a day for now I have faxed in a prescription. I have given her samples of Breo to take 1 puff daily Dc dial arrest follow up with me in 2 weeks oxygenation satisfactory
[2018-07-09] MEDS: LEVALBUTEROL 0.63 MG/3 ML NEB NEB SCH ×4 (11:22→23:32)
[2018-07-09] MEDS: ACETAMINOPHEN 500 MG TAB PO PRN (12:14)
[2018-07-09] MEDS: ENOXAPARIN 40 MG/0.4 ML SQ SCH (17:10)
--- NOTE | 2018-07-09 17:34 | PN ---
Date of Progress Note: 07/09/2018 History: The patient seen and examined. Chart reviewed and case discussed with RN and Dr. Li. The patient states she is doing better, however, still having some significant amount of wheezing. The heart rate elevated likely due to the albuterol treatments and as is her blood pressure. Medications: List reviewed. Physical Examination: Vital Signs: Temperature 97.2, heart rate 108, blood pressure 166/72, respirations 18, OS 95% on shell m air. General: Awake, alert, oriented x3. No acute distress. Ill-appearing female. CV: S1, S2. Sinus tachycardia. Peripheral pulses present. No murmurs. Respiratory: Diminished breath sounds. Wheezing heard throughout. The patient is slightly tachypne ic. No use of accessory muscles or stridor. Gastrointestinal: Abdomen is soft, nontender, nondistended. Positive bowel sounds. Extremities: No clubbing, cyanosis, or edema. Neurologic: Nonfocal. Laboratory Data: Sodium 142, potassium 3.7, chloride 108, CO2 25, BUN 15, creatinine 0.8, glucose 13 8, lactate 3.5, calcium 8.2. WBC 9.2, H and H 15.4 and 47.8, platelets 205, neutrophils 94%. Blood cultures no growth to date. Influenza screen is negative. Assessment And Plan: A 63-year-old female with: 1.Acute asthma exacerbation, moderate, persistent. The patient is unable to afford her long-acting inhalers. The patient is steroid dependent. We will continue nebulizer treatments. We will switch to Xopenex due to her tachycardia. Continue steroids. Appreciate Dr. Li's input. Her inhaler s have been adjusted. The patient now off supplemental oxygen. 2.Osteoporosis. The patient will need bisphosphonate as an outpatient. 3.Major depressive disorder, in remission. Continue serotonin-norepinephrine reuptake inhibitor. 4.Gastroesophageal reflux disease with hiatal hernia. Continue proton-pump inhibitor. 5.Neutrophilic leukocytosis, resolved, likely secondary to steroids or acute phase reactant. 6.Gastrointestinal and deep vein thrombosis prophylaxes with proton-pump inhibitor and Lovenox. Plan: Likely discharge home in a.m. as her condition continues to improve. SA/MODL Voice ID: [id number] Report ID: [id number]
[2018-07-09] MEDS: PHENOL 1.4% ORAL SPRAY 180ML MM PRN (17:58)
[2018-07-10] MEDS: METHYLPREDNISOLONE 40 MG INJ IV SCH ×2 (00:35→09:06)
[2018-07-10] MEDS: LEVALBUTEROL 0.63 MG/3 ML NEB NEB SCH ×3 (03:40→13:00)
[2018-07-10] MEDS: IPRATROPIUM BROM 0.5MG/2.5ML NEB SCH ×3 (03:40→12:00)
[2018-07-10] MEDS: PANTOPRAZOLE 40MG TABLET PO SCH (05:18)
[2018-07-10] MEDS: PHENOL 1.4% ORAL SPRAY 180ML MM PRN (05:20)
[2018-07-10 06:55] LABS: Absolute Lymphocytes (CBC) 0.7 K/uL (0.7-4.9); Absolute Monocytes 0.6 K/uL (0.1-1.3); Absolute Neutrophil 18.1 K/uL (1.8-8.0); Basophils % 0.1 % (0-1.3); Hematocrit 33.4 % (36.0-45.0); Lymphocytes % 3.8 % (15.3-44.8); MCH 24.7 pg (27.0-35.0); MCV 77.2 fL (80-100); MPV 8.3 fL (7.6-11.3); RBC Red Blood Cell Count 4.33 M/uL (3.86-4.86)
[2018-07-10 07:11] LABS: Potassium 3.7 mmol/L (3.5-5.1)
[2018-07-10 08:16] LABS: Anisocytosis 2+; Blood Morphology Comment NOTED (NOT SEEN); Platelet Estimate INCR; Urine White Blood Cell Casts OK
[2018-07-10 08:17] LABS: Ovalocytes 1+; Poikilocytosis 1+
[2018-07-10] MEDS ORDERED: POTASSIUM 25 MEQ EFFERV TAB PO ONE (09:00)
[2018-07-10] MEDS: VENLAFAXINE HCL XR 75 MG CAP PO SCH (09:06)
[2018-07-10] MEDS: THEOPHYLLINE SR 100 MG TAB PO SCH (09:07)
[2018-07-10] MEDS: AZITHROMYCIN 250 MG TAB PO SCH (09:07)
[2018-07-10] MEDS: ALPRAZOLAM 0.5 MG TABLET PO SCH ×2 (09:39→14:04)
[2018-07-10] MEDS ORDERED: POTASSIUM CL SA 10 MEQ TAB PO ONE (10:00)
[2018-07-10] MEDS ORDERED: LORazepam 2 MG/ML VIAL IV ONE (12:00)
[2018-07-10 14:26] VITALS: O2SAT 94
[2018-07-10 15:16] VITALS: BP 157/82; TEMP 98.4
[2018-07-10] MEDS ORDERED: METHYLPREDNISOLONE 40 MG INJ IV SCH (21:00)
--- NOTE | 2018-07-11 12:03 | DS ---
Date of Discharge: 07/10/2018 Consultants: Dr. Li with Pulmonology. Discharge Diagnoses: 1.Acute asthma exacerbation. 2.Major depressive disorder, in remission. 3.Osteoporosis. 4.Gastroesophageal reflux disease with hiatal hernia, on PPI. 5.Metabolic acidosis. 6.Neutrophilic leukocytosis likely steroid induced leukocytosis. Hospital Course: The patient is a 63-year-old female, who comes into the hospital for shortness of b reath. The patient has been unable to afford her nebulizers, however, has been using Daliresp. The patient comes in with elevated heart rate, tachypnea, elevated blood pressure, not able to complete h er sentences without getting short of breath. The patient was found to be in an acute asthma exacerb ation. Her ABGs did not show any acidosis, but she was hypoxemic and had an elevated lactate level. The patient was given breathing treatments. The albuterol did exacerbate her heart rate and she was switched over to Xopenex. The patient was also started on IV steroids and Dr. Li, patient's p ulmonologist was consulted. He adjusted her inhalers. He also added azithromycin. The patient did have improvement in her condition. She was able to be weaned off oxygen, did not have any further hy poxia. The patient was given samples of Breo Ellipta by Dr. Li and was added on to theophyllin e. The patient's lactate did improve and trended down. White count was elevated due to steroid gila soham leukocytosis initially had normalized. The patient was then switched to p.o. steroids. She was then cleared for discharge from a pulmonary standpoint and was doing well. She was able to ambulate without getting significantly short of breath. Her heart rate improved, however, was still slightly elevated due to breathing treatments. The patient denies any chest pain, did not appear septic, was somewhat jittery due to the steroids and breathing treatments. The patient was given anxiolytics. T he patient was stable for discharge and was sent home in a fair condition. Activity: No strenuous activity. Medications: As per medication reconciliation list. Finish off course of azithromycin for 7 days, w ill be added on Breo Ellipta and theophylline. The patient will be on a steroid higher steroid dose and then will resume her home dose of 10 mg daily. Followup: Follow up with primary care physician in 2 to 3 days. Follow up with real estate management specialist, Dr. Jamshid johnson in 2 weeks. Diet: Regular diet. Physical Examination: General: Awake, alert, oriented x3. Elderly female, somewhat anxious appearing. CV: S1, S2. Sinus tachycardia. No murmurs. Peripheral pulses present. Respiratory: Somewhat diminished breath sounds. Some minimal wheezing heard. No stridor. No tachy pnea. No use of accessory muscles. Gastrointestinal: Abdomen is soft, nontender, nondistended. Positive bowel sounds. Extremities: No clubbing, cyanosis, or edema. Neurologic: Nonfocal. SA/MODL Voice ID: [id number] Report ID: [id number]
== END 2018-07-10 14:10 | disposition home or self-care (01) ==
LOC: ER 09:51 → ERHOLD 11:15 → 2ND 12:07
PROVIDERS: ADMIT Family Medicine; ATTEND Family Medicine
DX: J45.901 Unspecified asthma with (acute) exacerbation (principal); F32.9 Major depressive disorder, single episode, unspecified; M81.0 Age-related osteoporosis without current pathological fracture; K21.9 Gastro-esophageal reflux disease without esophagitis; K44.9 Diaphragmatic hernia without obstruction or gangrene; E87.2 Acidosis; D72.828 Other elevated white blood cell count
CPT/HCPCS: 36415 ×2; 71045; 80048 ×3; 82805; 83605 ×5; 84145; 84443; 85025 ×3; 86850; 86900; 86901; 87040 ×2; 87804 ×2; 93005; 94010 ×5; 96374; 96375; 99285; C9113; G0378 ×2; J0456; J1650; J2920 ×6; J3010; J3475; J7030 ×2; 81003; 81015; J2930; J7512

== ENCOUNTER 2018-09-03 15:06 | Observation (INO) | payer OTHER ==
--- OUTSIDE RECORDS SUMMARY | 2018-09-03 15:09 | XMS REPORT ---
:1955 [facility] Address [address] [place] [address] Dr. Nichole [address] [place] [address] Care Team Providers Name Role Phone Lopez [...] Negative Negative Performed at: - [facility] code=HELIAG) [address] [id number] Director: Chu Jenkins MD, Phone: [phone] SURGICAL PATHOLOGY, LEVEL [id number] 13:33:[address] [address] Tel: Laboratory Printed : 01/10/18 1333 [facility] DAEMPathology Page: 1 Patient: CORNELIO RUFFIN Birthdate: 1955 Age/Sex: 62/F Spec#: [id number]: Tyrell Patino MD Specimen Date: 01/07/18 Received Date: 01/07/18 Specimen: POLYP, COLON CLINICAL DIAGNOSIS anemia PATHOLOGIC DIAGNOSIS Cecal polyp, polypectomy: - Tubular adenoma. Comment:There is no high grade dysplasia or malignancy present. Pathologist:Crystal Brumfield MD Entered by:01/10/18 - 1256 LAB.YGP PROCEDURES: [id number] GROSS DESCRIPTION A. POLYP,COLON CECUM The specimen [...] LAB.YGP Patient: CORNELIO RUFFIN ReLoc: T4-A MR#: [id number] CONTINUED ON NEXT PAGE Dis: 01/08/18ta: DIS IN [address] [address] Laboratory Printed: 01/10/18 1337 [facility] DAEMPathology Page: 2 Patient : CORNELIO RUFFIN [id number] (Continued) GROSS DESCRIPTION (Continued) MICROSCOPIC DESCRIPTION A microscopic examination was performed to arrive at the diagnostic conclusion reported. Signed ( Electronically Signed) Crystal Brumfield MD 01/10/18 ------ ------ Patient: CORNELIO RUFFIN ReLoc: T4-A MR#: [id number] END OF REPORT Dis: 01/08/18ta: DIS [id number] 11:30:00 Test Item Value Reference Range Comments [...] code=GLU-T) Chemistry (test code=CA) 8.9 mg/dL 7.8-10.44 [id number] 06:56:00 Test Item Value Reference Range Comments Chemistry (test code=MG) 1.8 mg/dL 1.6-2.6 Comment Add to AM labsComment Add to AM ouzsUctvklynq2561-71-48 06:56:00 Test Item Value Reference Range Comments [...] Add to AM labsComment Add to AM yxmaDialsqfjcj9421-56-56 04:30:00 Test Item Value Reference Range Comments [...] 0.0-0.7 Hematology (test code=BASO#) 0.1 thou/uL 0.0-0.2 [id number] 04:24:00 Test Item Value Reference Range Comments [...] code=GLU-T) Chemistry (test code=CA) 8.9 mg/dL 7.8-10.44 [id number] 15:26:00 Test Item Value Reference Range Comments Hematology (test code=HGBT) 8.8 g/dL 12.0-16.0 Hematology (test code=HCTT) 29.5 % 36.0-47.0 [id number] SURGICAL PATHOLOGY, LEVEL [id number] 14:22:00 [place] [address] Tel: Laboratory Printed : 01/07/18 1423 [facility] DAEMPathology Page: 1 Patient: CORNELIO RUFFIN Birthdate: 1955 Age/Sex: 62/F Spec#: [id number]: Tyrell Patino MD Specimen Date: [...] MD Entered by:01/07/18 - 1117 LAB.YGP PROCEDURES: 64930/2,89021/2, 94166 Patient: CORNELIO RUFFIN Re01/05/18Loc:T4-A MR#: [id number] CONTINUED ON NEXT PAGE Dis: Sta: ADM IN [address] [address] Tel: Laboratory Printed: [address] [place] [address] DAEMPathology Page: 2 --------- --- Patient: CORNELIO RUFFIN [id number] (Continued)------ ------ GROSS DESCRIPTION A. GASTRIC BIOPSY [...] : CORNELIO RUFFIN Re01/05/18Loc: T4- A MR#: [id number] END OF REPORT Dis: Sta: ADMINChemistry - Benji [id number] 13:00:00 Test Item Value Reference Range Comments [...] NEW METHODOLOGY.Method: Enzyme Linked Fluorescent Immunoassay (Benji)References: A-[employer] AB Benji Package Inserts - Directions for, September,October 2016, [employer]. Chemistry - Benji [id number] 13:00:00 Test Item Value Reference Range Comments Chemistry - Benji Testing 0.6 U/mL <4 Negative (test code=M2T) Chemistry - Benji Testing Less than 4.0 (test zfxr=UXZOWAH873) U/mL=Negative 4.0 - 6.0 U/mL=Equivocal Greater than [...] Package Inserts - Directions for, September,October 2016, [employer]. Chemistry - Benji Testing 0.6 U/mL <4 Negative (test code=M2T) Chemistry - Benji Testing Less than 4.0 (test iedg=DBOFHZU639) U/mL=Negative 4.0 - 6.0 U/mL=Equivocal Greater than 6.0 U/mL=POSITIVE Chemistry - Benji Testing NEW METHOD Values obtained with (test code=ELIAVASNEW) different assay methods CANNOT be usedINTERCHANGEABLY.If in the course of monitoring a patient, the assay methodused for determining levels is changed, a newbaseline/serial monitoring may need to be performed.SEE REFERENCE RANGES FOR NEW METHODOLOGY.Method: Enzyme Linked Fluorescent Immunoassay (Benji)References: [email or web address] AB Benji Package Inserts - Directions forUse, September, October 2016, [employer]. Chemistry - Benji [id number] 13:00:00 Test Item Value Reference Range Comments Chemistry - Benji Testing CENP, Chela-1, RNP70, (test code=ELIAANAINTERP) Scl-70, Longo, SSA/Ro, SSB/La IgGAntibodies: Less than 7.0 Benji U/mL=Negative 7.0 - 10.0 Benji U/mL=Equivocal Greater than 10.0 Benji U/mL=[id number] IgG: Less than 5.0 Benji U/mL=Negative 5.0 - 10.0 Benji U/mL=Equivocal Greater than 10.0 Benji U/mL=POSITIVE Chemistry - Benji [id number] 12:38:00 Test Item Value Reference Range Comments Chemistry - Benji Testing (test code=CELTTGIGA) 0.4 EliAU/mL <7 Negative Comment add onChemistry - Benji [id number] 12:38:00 Test Item Value Reference Range Comments Chemistry - Benji Testing (test code=CELTTGIGG) 0.6 EliAU/mL <7 Negative Comment add onChemistry - Benji [id number] 12:38:00 Test Item Value Reference Range Comments Chemistry - Benji Testing Less than (test lyaz=LPVKNCX225) 7.0 Benji U/mL=Negative 7.0 - 10.0 Benji U/mL=Equivocal Greater than 10.0 Benji U/mL=POSITIVE Comment add onChemistry - [id number] 12:33:00 Test Item Value Reference Range Comments Chemistry - Specials (test Non-Reactive NonReactive The panel screens for HIV-1 code=HIVT) p24 Antigen HIV-1/HIV-2Antibody. [id number] 10:27:00 Test Item Value Reference Range Comments Immunology (test code=SYPHABT) Nonreactive Nonreactive [id number] 10:25:00 Test Item Value Reference Range Comments [...] (test code=BASO#) 0.0 thou/uL 0.0-0.2 Hematology (test code=KY) MODERATE=15-30 cells (100X) 0-5/hpf Hematology (test code=HYPO) MODERATE=16-30 cells (100X) 0-5/hpf Hematology (test code=POLY) SLIGHT=2-3 cells (100X) 0-2/hpf Hematology (test code=OV) MODERATE=6-15 cells (100X) 0-1/hpf Hematology (test code=PCOMMENT) Appears Adequate [id number] 10:07:00 Test Item Value Reference Range Comments [...] Stool SCREEN (3) (test code=OCCSTS1) N Comment [id number] 16:59:00 Test Item Value Reference Range Comments [...] (test code=MPV) 10.9 fL 7.4-10.4 Chemistry - [id number] 13:59:00 Test Item Value Reference Range Comments [...] Individual is considered immune to HBV infection. [id number] 12:26:00 Test Item Value Reference Range Comments [...] Hematology (test code=MPV) 5.3 fL 7.4-10.4 Type [id number] 11:29:00 Test Item Value Reference Range Comments Blood Type Rh (test code=BT) O POSITIVE Antibody Screen (test code=ABSC) NEGATIVE Received Blood Or Been w/in Past 90 Days? UNKNOWNReceived Blood Or Been w/in Past 90 Days? NOScheduled Surgery Date: NO SURGERYIs Surgery Date Greater than 7 days from now? NOPacked Cells - Cprmvshanrpn6783-05-11 11:29 :[id number] OP LRPC TFUSE [id number] 05:27:00 Test Item Value Reference Range Comments [...] 5-34 Chemistry (test code=ALT) 149 U/L 8-55 Vbumhigpfj3835-07-78 05:18:00 Test Item Value Reference Range Comments [...] (test code=BASO#) 0.0 thou/uL 0.0-0.2 Chemistry - [id number] 00:59:00 Test Item Value Reference Range Comments Chemistry - Specials (test code=THEPAIGM) Non-Reactive NonReactive Chemistry - Specials (test code=THBSAG) Non-Reactive S/CO NonReactive Chemistry - Specials (test code=INTHBCM) Non-Reactive NonReactive Chemistry - Specials (test code=INTHEPC) Non-Reactive NonReactive Chemistry - BNP, HgbA1c, [id number] 19:45:00 Test Item Value Reference Range Comments Chemistry - BNP, HgbA1c, PTHi (test code=BNP) 100.4 pg/mL 0-100 Comment add [id number] 19:38:00 Test Item Value Reference Range Comments Chemistry (test 1.5 ng/mL 0-6.6 code=CKMBM-T) Chemistry (test Less than 0.010 < 0.028 code=TROPI-T) ng/mL Reference Range 0.00 - 0.028 ng/mL Negative 0.029 - 0.29 ng/mL Indeterminate Greater or Equal to 0.3 ng/mL Strongly suggests [place] Comment add onChemistry - [id number] 18:21:00 Test Item Value Reference Range Comments Chemistry - Specials (test code=LINDSAY) 24.27 ng/mL 10-291 [id number] 18:14:00 Test Item Value Reference Range Comments [...] code=PO) SLIGHT=6-15 cells (100X) 0-5/hpf Hematology (test code=KY) MODERATE=15-30 cells (100X) 0-5/hpf Hematology (test code=HYPO) SLIGHT=6-15 cells (100X) 0-5/hpf Hematology (test code=POLY) MODERATE=3-4 cells (100X) 0-2/hpf Hematology (test code=SC) SLIGHT=2-5 cells (100X) 0-1/hpf Hematology (test code=OV) SLIGHT=2-5 cells (100X) 0-1/hpf Hematology (test code=EL) SLIGHT=2-5 cells (100X) 0-1/hpf Hematology (test code=TE) SLIGHT=2-5 cells (100X) 0-1/hpf Hematology (test code=PCOMMENT) Appears Adequate [id number] 17:59:00 Test Item Value Reference Range Comments [...] 5-34 Chemistry (test code=ALT) 220 U/L 8-55 [id number] 17:59:00 Test Item Value Reference Range Comments Chemistry (test code=IRON) 15 ug/dL 50-170 [id number] 17:59:00 Test Item Value Reference Range Comments Chemistry (test code=TIBC) 386 mcg/dL 265-497 [id number] 17:50:00 Test Item Value Reference Range Comments Coagulation (test 13.3 SEC 12.0-14.7 code=PT-T) Coagulation (test 1.0 ATTENTION: READ code=INR) CAREFULLY -The recommended therapeutic ranges for oral anticoagulanttreatments are: Low Intensity: 1.5 - 2.0 Moderate Intensity: 2.0 - 3.0 High Intensity (1): 2.5 - 3.5 High Intensity (2): 3.0 - 4.0 CRITICAL: > 4.0 Anticoagulant? NONEMedical Necessity SUSPECT COAGULOPATHYAnticoagulant? NONEMedical Necessity: SUSP [id number] 17:50:00 Test Item Value Reference Range Comments Coagulation (test code=PTT) 23.4 SEC 22.9-36.1 Anticoagulant? NONEMedical Necessity SUSPECT COAGULOPATHYAnticoagulant? NONEMedical Necessity: SUSP COAG
[2018-09-03] MEDS ORDERED: NA CHLORIDE 0.9% 1,000 ML ONE (15:44)
[2018-09-03 15:56] LABS: Absolute Lymphocytes (CBC) 1.2 K/uL (0.7-4.9); Absolute Monocytes 0.5 K/uL (0.1-1.3); Absolute Neutrophil 11.4 K/uL (1.8-8.0); Basophils % 0.2 % (0-1.3); Hematocrit 31.4 % (36.0-45.0); MPV 8.1 fL (7.6-11.3); RBC Red Blood Cell Count 4.27 M/uL (3.86-4.86)
[2018-09-03 16:05] LABS: Potassium 3.8 mmol/L (3.5-5.1); Thyroid Stimulating Hormone 0.691 uIU/mL (0.360-3.740)
--- NOTE | 2018-09-03 16:19 | RAD REPORT ---
EXAM DESCRIPTION: CT - Head Brain Wo Cont - 09/03/2018 3:55 pm CLINICAL HISTORY: Alteration of awareness/confusion COMPARISON: February 2018 TECHNIQUE: Computed axial tomography of the head was obtained. IV contrast was not requested. All CT scans are performed using dose optimization technique as appropriate and may include automated exposure control or mA/KV adjustment according to patient size. FINDINGS: An intracranial bleed is not seen . The ventricles are normal in caliber. No extra-axial fluid collection is noted. Mild low-density areas within periventricular, deep and sub cortical white matter likely represent ischemic changes secondary to small vessel disease. Chronic opacification of the sinuses and left mastoid is noted IMPRESSION: No acute intracranial abnormality is seen. If patient's symptoms persist MRI of the bra in would be recommended.
[2018-09-03 17:05] LABS: Urine Blood NEGATIVE (NEG); Urine Glucose NEGATIVE (NEG); Urine Protein NEGATIVE (NEG); Urine pH 6.5 (5.0-7.0)
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
[2018-09-03 17:12] LABS: Urine Bacteria <20 /HPF (<20); Urine Culture Reflex Order NOT NEEDED; Urine RBC NONE SEEN /HPF (NONE SEEN)
[2018-09-03 17:27] LABS: Barbiturates NEGATIVE (NEGATIVE); Benzodiazepines POSITIVE (NEGATIVE); Cocaine NEGATIVE (NEGATIVE); METHAMPHETAM POSITIVE (NEGATIVE); Methadone NEGATIVE (NEGATIVE); Opiates NEGATIVE (NEGATIVE); Phencyclidine NEGATIVE (NEGATIVE); THC Cannibis NEGATIVE (NEGATIVE)
[2018-09-03 17:30] LABS: Anisocytosis 2+; Blood Morphology Comment NOTED (NOT SEEN); Platelet Estimate INCR; Urine White Blood Cell Casts OK
[2018-09-03 17:31] LABS: Hypochromasia 1+; Polychromasia SLIGHT
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
--- NOTE | 2018-09-03 17:41 | RAD REPORT ---
EXAM DESCRIPTION: Loc Single View09/03/2018 5:33 pm CLINICAL HISTORY: Chest pain COMPARISON: none FINDINGS: The lungs appear clear of acute infiltrate. The heart is normal size A moderate to large hiatal hernia IMPRESSION: No acute abnormalities displayed
[2018-09-03] MEDS ORDERED: NA CHLORIDE 0.9% 1,000 ML IV SCH (18:06)
[2018-09-03] MEDS ORDERED: HYDRALAZINE HCL 20 MG/ML VIAL IV PRN (18:06)
[2018-09-03] MEDS ORDERED: IPRATROPIUM BROM 0.5MG/2.5ML NEB PRN (18:06)
[2018-09-03] MEDS ORDERED: ALBUTEROL 2.5 MG/3 ML NEB SOL NEB PRN (18:06)
[2018-09-03] MEDS ORDERED: ACETAMINOPHEN 500 MG TAB PO PRN (18:06)
[2018-09-03] MEDS ORDERED: ONDANSETRON 4 MG/2 ML VIAL IV PRN (18:06)
[2018-09-03 18:53] LABS: Ferritin 8.4 ng/mL (8-388)
[2018-09-03] MEDS: ALPRAZOLAM 0.5 MG TABLET PO PRN (20:39)
[2018-09-03 20:44] LABS: CKMB Creatine Kinase MB 1.7 ng/mL (0.3-3.6); Troponin I 0.02 ng/mL (0.0-0.045)
[2018-09-03] MEDS ORDERED: ATORVASTATIN 40 MG TAB PO SCH (21:00)
[2018-09-03 22:54] VITALS: BMI 23.9
[2018-09-04 05:03] LABS: Absolute Monocytes 0.9 K/uL (0.1-1.3); Absolute Neutrophil 6.6 K/uL (1.8-8.0); Basophils % 0.3 % (0-1.3); Eosinophils % 1.4 % (0-4.4); Hematocrit 27.7 % (36.0-45.0); Lymphocytes % 28.1 % (15.3-44.8); MPV 8.3 fL (7.6-11.3); Monocytes % 8.4 % (3.3-12.3); RBC Red Blood Cell Count 3.78 M/uL (3.86-4.86)
[2018-09-04] MEDS: ALPRAZOLAM 0.5 MG TABLET PO PRN (07:57)
--- NOTE | 2018-09-04 07:57 | RAD REPORT ---
EXAM DESCRIPTION: US - CP - 09/03/2018 10:51 pm CLINICAL HISTORY: Syncope COMPARISON: None. TECHNIQUE: Real-time sonographic evaluation of both carotid systems was performed. Valderrama scale and Do ppler interrogation were performed with waveform tracing bilaterally. FINDINGS: Normal high resistance waveforms are noted in both external carotid arteries. The common c arotid arteries and internal carotid arteries show normal low resistance waveforms. No significant plaque formation is seen. Peak systolic and end diastolic velocity values and the ICA/ CCA ratios are in the non-hemodynamically significant range. The asymmetry in common carotid artery velocity does not have an abnormality on imaging to explain the differential. Differential is not lik deejay significant. Antegrade flow seen in both vertebral arteries. Velocity values and ratios were recorded and are retained in the patient's imaging records. IMPRESSION: No significant atherosclerotic changes noted. No evidence of a hemodynamically significant stenosis.
[2018-09-04] MEDS ORDERED: CYANOCOBALAMIN 1000MCG/ML INJ IM ONE (09:00)
[2018-09-04] MEDS ORDERED: VENLAFAXINE HCL PO SCH (09:00)
[2018-09-04] MEDS ORDERED: predniSONE 10 MG TAB PO SCH (09:00)
[2018-09-04] MEDS ORDERED: CYANOCOBALAMIN 1,000 MCG TAB PO SCH (09:00)
[2018-09-04] MEDS ORDERED: VENLAFAXINE HCL XR 75 MG CAP PO SCH (09:00)
[2018-09-04] MEDS ORDERED: PANTOPRAZOLE 40MG TABLET PO SCH (09:00)
[2018-09-04] MEDS ORDERED: ENOXAPARIN 40 MG/0.4 ML SQ SCH (09:00)
[2018-09-04] MEDS ORDERED: CARVEDILOL 3.125 MG TAB PO SCH (09:00)
[2018-09-04 09:20] LABS: Albumin 3.3 g/dL (3.4-5.0); Bilirubin Total 0.8 mg/dL (0.2-1.0); CKMB Creatine Kinase MB 1.9 ng/mL (0.3-3.6); Magnesium 2.5 mg/dL (1.8-2.4); Potassium 3.4 mmol/L (3.5-5.1); Protein, Total 6.4 g/dL (6.4-8.2); Troponin I 0.02 ng/mL (0.0-0.045)
[2018-09-04 09:23] LABS: Hematocrit 27.3 % (36.0-45.0)
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
--- NOTE | 2018-09-04 10:54 | EKG ---
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
[2018-09-04] MEDS ORDERED: SOD FERRIC GLUC COMPLX/SUCROSE 125 MG in NA CHLORIDE 0.9% 100 ML IV SCH (11:00)
[2018-09-04 13:01] VITALS: O2SAT 99
[2018-09-04 13:20] VITALS: BP 149/67; TEMP 97
== END 2018-09-04 13:48 | disposition home or self-care (01) ==
LOC: ER 15:06 → ERHOLD 17:32 → 2ND 18:04
PROVIDERS: ADMIT Family Medicine; ATTEND Family Medicine
DX: R41.0 Disorientation, unspecified (principal); R41.82 Altered mental status, unspecified; J45.909 Unspecified asthma, uncomplicated; I10 Essential (primary) hypertension; D64.9 Anemia, unspecified; N28.9 Disorder of kidney and ureter, unspecified; F98.8 Other specified behavioral and emotional disorders with onset usually occurring in childhood and adolescence; D51.9 Vitamin B12 deficiency anemia, unspecified; K21.9 Gastro-esophageal reflux disease without esophagitis; K44.9 Diaphragmatic hernia without obstruction or gangrene; Z88.6 Allergy status to analgesic agent; Z79.52 Long term (current) use of systemic steroids; F41.8 Other specified anxiety disorders
CPT/HCPCS: 36415; 70450; 71045; 80048; 80053; 80061; 80307 ×8; 82550 ×2; 82553 ×2; 82607; 82728; 82962; 83540; 83735; 84439; 84443; 84466; 84484 ×2; 85014; 85018; 85025 ×2; 86850; 86900; 86901; 93005; 93880; 94640; 96360; 99285; G0378 ×2; J0360; J1650; J2916; J3420; J7030 ×2; 81003; 81015; J7512

== ENCOUNTER 2019-01-15 17:32 | Emergency (ER) | payer OTHER ==
--- OUTSIDE RECORDS SUMMARY | 2019-01-15 17:36 | XMS REPORT ---
:1955 [facility] Address [address] [place] [address] Dr. Nichole [address] [place] [address] Care Team Providers Name Role Phone Lopez [...] Negative Negative Performed at: - [facility] code=HELIAG) [address] [id number] Director: Chu Jenkins MD, Phone: [phone] SURGICAL PATHOLOGY, LEVEL [id number] 13:33:[address] [address] Tel: Laboratory Printed : 01/10/18 1333 MAHAD DAEMPathology Page: 1 Patient: CORNELIO RUFFIN Birthdate: 1955 Age/Sex: 62/F Spec#: [id number]: Tyrell Patino MD Specimen Date: 01/07/18 Received Date: 01/07/18 Specimen: POLYP, COLON CLINICAL DIAGNOSIS anemia PATHOLOGIC DIAGNOSIS Cecal polyp, polypectomy: - Tubular adenoma. Comment:There is no high grade dysplasia or malignancy present. Pathologist:Crystal Brumfield MD Entered by:01/10/18 - 1256 LAB.YGP PROCEDURES: [id number] GROSS DESCRIPTION A. POLYP,COLON CECUM The specimen [...] LAB.YGP Patient: CORNELIO RUFFIN ReLoc: T4-A MR#: [id number] CONTINUED ON NEXT PAGE Dis: 01/08/18ta: DIS IN [address] [address] Laboratory Printed: 01/10/18 133 [facility] DAEMPathology Page: 2 Patient : CORNELIO RUFFIN [id number] (Continued) GROSS DESCRIPTION (Continued) MICROSCOPIC DESCRIPTION A microscopic examination was performed to arrive at the diagnostic conclusion reported. Signed ( Electronically Signed) Crystal Brumfield MD 01/10/18 ------ ------ Patient: CORNELIO RUFFIN ReLoc: T4-A MR#: [id number] END OF REPORT Dis: 01/08/18ta: DIS [id number] 11:30:00 Test Item Value Reference Range Comments [...] code=GLU-T) Chemistry (test code=CA) 8.9 mg/dL 7.8-10.44 [id number] 06:56:00 Test Item Value Reference Range Comments Chemistry (test code=MG) 1.8 mg/dL 1.6-2.6 Comment Add to AM labsComment Add to AM [id number] 06:56:00 Test Item Value Reference Range Comments [...] Add to AM labsComment Add to AM [id number] 04:30:00 Test Item Value Reference Range Comments [...] 0.0-0.7 Hematology (test code=BASO#) 0.1 thou/uL 0.0-0.2 [id number] 04:24:00 Test Item Value Reference Range Comments [...] code=GLU-T) Chemistry (test code=CA) 8.9 mg/dL 7.8-10.44 [id number] 15:26:00 Test Item Value Reference Range Comments Hematology (test code=HGBT) 8.8 g/dL 12.0-16.0 Hematology (test code=HCTT) 29.5 % 36.0-47.0 [id number] SURGICAL PATHOLOGY, LEVEL [id number] 14:22:00 [place] [address] Tel: Laboratory Printed : 01/07/18 1423 [facility] DAEMPathology Page: 1 Patient: CORNELIO RUFFIN Birthdate: 1955 Age/Sex: 62/F Spec#: [id number]: Tyrell Patino MD Specimen Date: [...] MD Entered by:01/07/18 - 1117 LAB.YGP PROCEDURES: 12427/2,17630/2, 23685 Patient: CORNELIO RUFFIN Re01/05/18Loc:T4-A MR#: [id number] CONTINUED ON NEXT PAGE Dis: Sta: ADM IN [address] [address] Tel: Laboratory Printed: [address] [place] [address] DAEMPathology Page: 2 --------- --- Patient: CORNELIO RUFFIN [id number] (Continued)------ ------ GROSS DESCRIPTION A. GASTRIC BIOPSY [...] : CORNELIO RUFFIN Re01/05/18Loc: T4- A MR#: [id number] END OF REPORT Dis: Sta: ADMINChemistry - Benji [id number] 13:00:00 Test Item Value Reference Range Comments [...] NEW METHODOLOGY.Method: Enzyme Linked Fluorescent Immunoassay (Benji)References: [employer] Benji Package Inserts - Directions for, September,October 2016, [place]. Chemistry - Benji [id number] 13:00:00 Test Item Value Reference Range Comments Chemistry - Benji Testing 0.6 U/mL <4 Negative (test code=M2T) Chemistry - Benji Testing Less than 4.0 (test fgns=OAHNETG383) U/mL=Negative 4.0 - 6.0 U/mL=Equivocal Greater than [...] Package Inserts - Directions for, September,October 2016, [place]. Chemistry - Benji Testing 0.6 U/mL <4 Negative (test code=M2T) Chemistry - Benji Testing Less than 4.0 (test yxdd=WTWQLNY447) U/mL=Negative 4.0 - 6.0 U/mL=Equivocal Greater than 6.0 U/mL=POSITIVE Chemistry - Benji Testing NEW METHOD Values obtained with (test code=ELIAVASNEW) different assay methods CANNOT be usedINTERCHANGEABLY.If in the course of monitoring a patient, the assay methodused for determining levels is changed, a newbaseline/serial monitoring may need to be performed.SEE REFERENCE RANGES FOR NEW METHODOLOGY.Method: Enzyme Linked Fluorescent Immunoassay (Benji)References: [employer] Benji Package Inserts - Directions forUse, September, October 2016, [place]. Chemistry - Benji [id number] 13:00:00 Test Item Value Reference Range Comments Chemistry - Benji Testing CENP, Chela-1, RNP70, (test code=ELIAANAINTERP) Scl-70, Longo, SSA/Ro, SSB/La IgGAntibodies: Less than 7.0 Benji U/mL=Negative 7.0 - 10.0 Benji U/mL=Equivocal Greater than 10.0 Benji U/mL=[id number] IgG: Less than 5.0 Benji U/mL=Negative 5.0 - 10.0 Benji U/mL=Equivocal Greater than 10.0 Benji U/mL=POSITIVE Chemistry - Benji [id number] 12:38:00 Test Item Value Reference Range Comments Chemistry - Benji Testing (test code=CELTTGIGA) 0.4 EliAU/mL <7 Negative Comment add onChemistry - Benji [id number] 12:38:00 Test Item Value Reference Range Comments Chemistry - Benji Testing (test code=CELTTGIGG) 0.6 EliAU/mL <7 Negative Comment add onChemistry - Benji [id number] 12:38:00 Test Item Value Reference Range Comments Chemistry - Benji Testing Less than (test jmye=DOLUDFZ258) 7.0 Benji U/mL=Negative 7.0 - 10.0 Benji U/mL=Equivocal Greater than 10.0 Benji U/mL=POSITIVE Comment add onChemistry - Fmkgnzvk1984-30-00 12:33:00 Test Item Value Reference Range Comments Chemistry - Specials (test Non-Reactive NonReactive The panel screens for HIV-1 code=HIVT) p24 Antigen HIV-1/HIV-2Antibody. Kxrozuokno0019-02-19 10:27:00 Test Item Value Reference Range Comments Immunology (test code=SYPHABT) Nonreactive Nonreactive [id number] 10:25:00 Test Item Value Reference Range Comments [...] (test code=BASO#) 0.0 thou/uL 0.0-0.2 Hematology (test code=NE) MODERATE=15-30 cells (100X) 0-5/hpf Hematology (test code=HYPO) MODERATE=16-30 cells (100X) 0-5/hpf Hematology (test code=POLY) SLIGHT=2-3 cells (100X) 0-2/hpf Hematology (test code=OV) MODERATE=6-15 cells (100X) 0-1/hpf Hematology (test code=PCOMMENT) Appears Adequate [id number] 10:07:00 Test Item Value Reference Range Comments [...] Stool SCREEN (3) (test code=OCCSTS1) N Comment [id number] 16:59:00 Test Item Value Reference Range Comments [...] (test code=MPV) 10.9 fL 7.4-10.4 Chemistry - [id number] 13:59:00 Test Item Value Reference Range Comments [...] Individual is considered immune to HBV infection. [id number] 12:26:00 Test Item Value Reference Range Comments [...] Hematology (test code=MPV) 5.3 fL 7.4-10.4 Type [id number] 11:29:00 Test Item Value Reference Range Comments Blood Type Rh (test code=BT) O POSITIVE Antibody Screen (test code=ABSC) NEGATIVE Received Blood Or Been w/in Past 90 Days? UNKNOWNReceived Blood Or Been w/in Past 90 Days? NOScheduled Surgery Date: NO SURGERYIs Surgery Date Greater than 7 days from now? NOPacked Cells - Knqsspypzizm4426-61-40 11:29 :[id number] OP LRPC TFUSE [id number] 05:27:00 Test Item Value Reference Range Comments [...] 5-34 Chemistry (test code=ALT) 149 U/L 8-55 [id number] 05:18:00 Test Item Value Reference Range Comments [...] (test code=BASO#) 0.0 thou/uL 0.0-0.2 Chemistry - [id number] 00:59:00 Test Item Value Reference Range Comments Chemistry - Specials (test code=THEPAIGM) Non-Reactive NonReactive Chemistry - Specials (test code=THBSAG) Non-Reactive S/CO NonReactive Chemistry - Specials (test code=INTHBCM) Non-Reactive NonReactive Chemistry - Specials (test code=INTHEPC) Non-Reactive NonReactive Chemistry - BNP, HgbA1c, [id number] 19:45:00 Test Item Value Reference Range Comments Chemistry - BNP, HgbA1c, PTHi (test code=BNP) 100.4 pg/mL 0-100 Comment add [id number] 19:38:00 Test Item Value Reference Range Comments Chemistry (test 1.5 ng/mL 0-6.6 code=CKMBM-T) Chemistry (test Less than 0.010 < 0.028 code=TROPI-T) ng/mL Reference Range 0.00 - 0.028 ng/mL Negative 0.029 - 0.29 ng/mL Indeterminate Greater or Equal to 0.3 ng/mL Strongly suggests NE Comment add onChemistry - [id number] 18:21:00 Test Item Value Reference Range Comments Chemistry - Specials (test code=LINDSAY) 24.27 ng/mL 10-291 [id number] 18:14:00 Test Item Value Reference Range Comments [...] code=PO) SLIGHT=6-15 cells (100X) 0-5/hpf Hematology (test code=NE) MODERATE=15-30 cells (100X) 0-5/hpf Hematology (test code=HYPO) SLIGHT=6-15 cells (100X) 0-5/hpf Hematology (test code=POLY) MODERATE=3-4 cells (100X) 0-2/hpf Hematology (test code=SC) SLIGHT=2-5 cells (100X) 0-1/hpf Hematology (test code=OV) SLIGHT=2-5 cells (100X) 0-1/hpf Hematology (test code=EL) SLIGHT=2-5 cells (100X) 0-1/hpf Hematology (test code=TE) SLIGHT=2-5 cells (100X) 0-1/hpf Hematology (test code=PCOMMENT) Appears Adequate [id number] 17:59:00 Test Item Value Reference Range Comments [...] 5-34 Chemistry (test code=ALT) 220 U/L 8-55 [id number] 17:59:00 Test Item Value Reference Range Comments Chemistry (test code=IRON) 15 ug/dL 50-170 [id number] 17:59:00 Test Item Value Reference Range Comments Chemistry (test code=TIBC) 386 mcg/dL 265-497 [id number] 17:50:00 Test Item Value Reference Range Comments Coagulation (test 13.3 SEC 12.0-14.7 code=PT-T) Coagulation (test 1.0 ATTENTION: READ code=INR) CAREFULLY -The recommended therapeutic ranges for oral anticoagulanttreatments are: Low Intensity: 1.5 - 2.0 Moderate Intensity: 2.0 - 3.0 High Intensity (1): 2.5 - 3.5 High Intensity (2): 3.0 - 4.0 CRITICAL: > 4.0 Anticoagulant? NONEMedical Necessity SUSPECT COAGULOPATHYAnticoagulant? NONEMedical Necessity: SUSP [id number] 17:50:00 Test Item Value Reference Range Comments Coagulation (test code=PTT) 23.4 SEC 22.9-36.1 Anticoagulant? NONEMedical Necessity SUSPECT COAGULOPATHYAnticoagulant? NONEMedical Necessity: SUSP COAG
[2019-01-15 19:33] LABS: Absolute Lymphocytes (CBC) 2.3 K/uL (0.7-4.9); Basophils % 0.8 % (0-1.3); Eosinophils % 0.1 % (0-4.4); Hematocrit 20.9 % (36.0-45.0); Lymphocytes % 18.7 % (15.3-44.8); MPV 8.5 fL (7.6-11.3); RBC Red Blood Cell Count 2.99 M/uL (3.86-4.86)
[2019-01-15 19:34] LABS: Protime INR 0.96
[2019-01-15] MEDS ORDERED: MAGNE/ALUM HYDROXD 30 ML UCUP ONE (19:34)
[2019-01-15] MEDS ORDERED: LIDOCAINE VISCOUS 2% SOLN 15 ML UDC ONE (19:34)
[2019-01-15 19:45] LABS: ALT/SGPT 19 U/L (12-78); AST/SGOT 25 U/L (15-37); Alkaline Phosphatase 75 U/L (45-117); BUN Blood Urea Nitrogen 20 mg/dL (7-18); Bicarbonate 24 mmol/L (21-32); Bilirubin Direct 0.1 mg/dL (0-0.2); Bilirubin Total 0.5 mg/dL (0.2-1.0); Glucose Level 85 mg/dL (74-106); Magnesium 2.5 mg/dL (1.8-2.4); NT PRO-BNP 447 pg/mL (<125); Protein, Total 6.3 g/dL (6.4-8.2); Troponin (Emerg Dept Use Only) < 0.02 ng/mL (0.0-0.045)
[2019-01-15 20:19] LABS: Potassium 4.1 mmol/L (3.5-5.1); Sodium Level 142 mmol/L (136-145)
[2019-01-15 20:29] LABS: Anisocytosis 1+; Blood Morphology Comment NOTED (NOT SEEN); Hypochromasia 2+; Ovalocytes 1+; Platelet Estimate ADEQ; Polychromasia 1+; Urine White Blood Cell Casts OK
[2019-01-15] MEDS ORDERED: PANTOPRAZOLE 40 MG INJ ONE ×2 (20:29→21:19)
[2019-01-15] MEDS ORDERED: IPRATROPIUM BROM 0.5MG/2.5ML ONE (21:01)
[2019-01-15] MEDS ORDERED: LEVALBUTEROL 1.25 MG/3 ML NEB ONE (21:01)
--- NOTE | 2019-01-15 21:04 | RAD REPORT ---
EXAM DESCRIPTION: RAD - Chest Single View - 01/15/2019 7:05 pm CLINICAL HISTORY: Palpitations, shortness of breath COMPARISON: August 2018 TECHNIQUE: AP portable chest image was obtained 1900 hours . FINDINGS: No focal lung parenchymal process. Lung markings are similar to comparison. Moderately lar ge hiatal hernia is present. Heart and vasculature are normal. No measurable pleural effusion and no pneumothorax. No acute bony abnormality seen. No acute aortic findings suspected. IMPRESSION: No acute cardiopulmonary process. No significant interval change.
[2019-01-15] MEDS ORDERED: NA CHLORIDE 0.9% 250 ML ONE (21:20)
[2019-01-15 23:24] LABS: Urine Bacteria <20 /HPF (<20); Urine Culture Reflex Order NOT NEEDED; Urine RBC <5 /HPF (NONE SEEN)
--- NOTE | 2019-01-16 00:44 | EDPHYS ---
Physician Documentation [facility] Name: Irma Cain Age: 63 yrs Sex: Female : 1955 Arrival Date: 01/15/2019 Time: 17:33 Bed 13 Private MD: ED Physician Moi Berrios HPI: 01/15 18:30 This 63 yrs old Female presents to ER via Wheelchair with complaints of cp Palpitations, Weakness. 18:30 The patient presents with a history of irregular heart beat, heart racing. cp 18:30 Context: The symptoms occur with light activity. Onset: The symptoms/episode cp began/occurred 3 week(s) ago. Duration: The patient or guardian reports multiple episodes, that wax and wane. Modifying factors: The symptoms are aggravated by light activity. Associated signs and symptoms: Pertinent positives: SOB, fatigue, Pertinent negatives: fever, vomiting. Severity of symptoms: in the emergency department the symptoms are unchanged despite home interventions. Historical: - Allergies: 17:37 Aspirin; la1 17:37 Talwin; la1 17:37 Benadryl; la1 17:37 Demerol; la1 17:37 Neosporin ([id number]); la1 17:37 NSAIDS; la1 17:37 Tylenol; la1 - Home Meds: 17:47 Adderall XR 20 mg Oral cp24 1 cap 2 times daily [Active]; Albuterol Inhl [Active]; hj alprazolam 1 mg Oral tab 1 tab four times a day [Active]; Breo Ellipta 100-25 mcg/dose inhalation dsdv [Active]; Daliresp 500 mcg Oral tab 1 tab once daily [Active]; Deplin (algal oil) Oral [Active]; Effexor XR 150 mg Oral cp24 2 cap once daily [Active]; omeprazole 40 mg Oral cpDR 1 cap once daily [Active]; prednisone 10 mg Oral tab 1 tab 2 times per day [Active]; Ventolin Rotahaler/Rotacaps Inhl [Active]; - PMHx: 17:37 Anemia; Anxiety; Asthma; basal cell carcinoma; Depression; Hypertension; Osteoporosis; la1 - Immunization history:: Adult Immunizations up to date. - Social history:: Smoking status: Patient/guardian denies using tobacco. - Ebola Screening: : No symptoms or risks identified at this time. ROS: 18:35 Constitutional: Positive for fatigue, Negative for body aches, chills, fever, poor PO cp intake. 18:35 Eyes: Negative for injury, pain, redness, and discharge. cp 18:35 Neck: Negative for pain with movement, pain at rest, stiffness, tenderness. cp 18:35 Cardiovascular: Positive for palpitations, chest tightness, Negative for edema. 18:35 Respiratory: Positive for shortness of breath, on exertion. Negative for cough, wheezing. 18:35 Abdomen/GI: Positive for black/tarry stool, Negative for abdominal pain, vomiting, cp diarrhea, constipation. 18:35 Back: Negative for pain at rest, pain with movement. 18:35 : Negative for urinary symptoms, vaginal bleeding, vaginal discharge. 18:35 Skin: Negative for rash. 18:35 Neuro: Positive for weakness, Negative for altered mental status, headache, syncope. 18:35 All other systems are negative. Exam: 17:55 ECG was reviewed by the Attending Physician. cp 18:40 Constitutional: The patient appears in no acute distress, alert, awake, cp non-diaphoretic, non-toxic, well developed, well nourished. 18:40 Head/Face: Normocephalic, atraumatic. Eyes: Pupils equal round and reactive to light, cp extra-ocular motions intact. Lids and lashes normal. Conjunctiva and sclera are non-icteric and not injected. Cornea within normal limits. Periorbital areas with no swelling, redness, or edema. ENT: Nares patent. No nasal discharge, no septal abnormalities noted. Tympanic membranes are normal and external auditory canals are clear. Oropharynx with no redness, swelling, or masses, exudates, or evidence of obstruction, uvula midline. Mucous membranes moist. Chest/axilla: Normal chest wall appearance and motion. Nontender with no deformity. No lesions are appreciated. 18:40 Cardiovascular: Rate: normal, Rhythm: regular, Pulses: Pulses are 2+ in right radial artery and left radial artery. Edema: is not appreciated, JVD: is not appreciated. 18:40 Respiratory: the patient does not display signs of respiratory distress, Respirations: normal, no use of accessory muscles, no retractions, no splinting, no tachypnea, labored breathing, is not present, Breath sounds: decreased breath sounds, are not appreciated, wheezing: that is mild, is heard diffusely. 18:40 Abdomen/GI: Inspection: abdomen appears normal, Bowel sounds: active, all quadrants, Palpation: abdomen is soft and non-tender, in all quadrants. 18:40 Back: pain, is absent, ROM is normal. 18:40 Skin: no rash present. 18:40 Neuro: Orientation: to person, place \T\ time. Mentation: is normal, Cerebellar function: is grossly normal, Motor: moves all fours, strength is normal, Sensation: is normal. 19:00 : Rectal exam: Stool: dark colored, Guaiac testing: results were positive for occult cp blood. Vital Signs: 17:37 BP 146 / 79; Pulse 110; Resp 16; Temp 97.2; Pulse Ox 98% on R/A; Weight 55.79 kg; la1 Height 5 ft. 1 in. (154.94 cm); 18:05 BP 137 / 53; Pulse 98; Resp 18; Pulse Ox 100% on R/A; hj 19:26 BP 136 / 52; Pulse 92; Resp 20; Temp 98.1; Pulse Ox 100% on R/A; ak1 21:00 BP 139 / 63; Pulse 96; Resp 20; Temp 98.2; Pulse Ox 100% on Nebulizer Mask; Pain 0/10; ak1 17:37 Body Mass Index 23.24 (55.79 kg, 154.94 cm) la1 MDM: 17:56 Patient medically screened. 21:25 Data reviewed: vital signs, nurses notes, lab test result(s), EKG, radiologic studies, cp plain films. 21:25 Data interpreted: monitoring specialist: rate is 96 beats/min, rhythm is normal sinus rhythm, cp Pulse oximetry: on room air is 100 %. Plan:. Test interpretation: by ED physician or midlevel provider: ECG. 21:35 Physician consultation: DR Lewis, ICU physician \T\[facility], will cp accept patient as transfer. 01/15 18:28 Order name: Basic Metabolic Panel cp 01/15 18:28 Order name: CBC with Diff cp 01/15 18:28 Order name: LFT's cp 01/15 18:28 Order name: Magnesium cp 01/15 18:28 Order name: NT PRO-BNP; Complete Time: 20:30 cp 01/15 18:28 Order name: PT-INR; Complete Time: 20:30 01/15 18:28 Order name: Troponin (emerg Dept Use Only); Complete Time: 20:30 01/15 18:28 Order name: Urine Microscopic Only 01/15 18:30 Order name: Basic Metabolic Panel; Complete Time: 20:30 EDMS 01/15 21:20 Interpretation: Normal except: BUN 20; GFR 71; CA 8.0; CL 108. cp 01/15 18:30 Order name: CBC with Automated Diff; Complete Time: 20:30 EDMS 01/15 21:18 Interpretation: Abnormal: WBC 12.5; RBC 2.99; HGB 5.9; HCT 20.9; MCV 69.9; MCH 19.7; cp MCHC 28.2; RDW 21.4; KAMRAN% 74.4. 01/15 18:30 Order name: Liver (Hepatic) Function; Complete Time: 20:30 EDMS 01/15 18:30 Order name: Magnesium; Complete Time: 20:30 EDMS 01/15 19:39 Order name: CBC Smear Scan; Complete Time: 20:30 EDMS 01/15 19:57 Order name: Type And Screen; Complete Time: 21:03 01/15 18:28 Order name: XRAY Chest (1 view); Complete Time: 21:15 01/15 18:28 Order name: EKG; Complete Time: 18:31 01/15 18:28 Order name: Cardiac monitoring; Complete Time: 18:56 01/15 18:28 Order name: EKG - Nurse/Tech; Complete Time: 18:56 01/15 18:28 Order name: IV Saline Lock; Complete Time: 20:39 01/15 18:28 Order name: Labs collected and sent; Complete Time: 18:59 01/15 18:28 Order name: O2 Per Protocol; Complete Time: 18:56 01/15 18:28 Order name: O2 Sat Monitoring; Complete Time: 18:56 01/15 18:28 Order name: Urine Dipstick-Ancillary (obtain specimen); Complete Time: 23:11 01/15 18:30 Order name: CT Head Brain wo Cont 01/15 23:10 Order name: Urine Dipstick--Ancillary (enter results) cm6 EC:55 Rate is 102 beats/min. Rhythm is regular. GA interval is normal. QRS interval is cp normal. QT interval is normal. Interpreted by me. Reviewed by me. Administered Medications: 19:25 Drug: GI Cocktail without - (Maalox Suspension 30 ml, Lidocaine Liquid 2 % 15 ak1 ml) Route: PO; 19:37 Follow up: Response: No adverse reaction ak1 21:00 Follow up: Response: No adverse reaction; Pain is decreased ak1 20:53 Drug: Xopenex (3) 1.25 mg Route: Inhalation; ak1 20:54 Drug: ProTONIX 40 mg Route: IVP; Site: left forearm; ak1 21:00 Follow up: Response: No adverse reaction ak1 21:13 Drug: ProTONIX 8 mg/hr Route: IV; Rate: 25 ml/hr; Site: left forearm; ak1 21:54 Follow up: IV Status: Infusion continued upon transfer ak1 Point of Care Testing: Guaiac: 19:53 Stool Guaiac: Positive; Stool Hemoccult Control: Pass; ak1 Disposition: 01/16 09:59 Co-signature as Attending Physician, Moi Berrios MD I agree with the assessment and stefanie plan of care. Disposition: 01/15/19 21:45 Transfer ordered to [facility]. Diagnosis are Anemia in other chronic diseases classified elsewhere, Gastrointestinal hemorrhage, unspecified. - Reason for transfer: Higher level of care. - Accepting physician is Dr. Constance Lewis. - Condition is Stable. - Problem is new. - Symptoms have improved. Signatures: Dispatcher [employer] EDSD Moi Berrios MD MD cha Attema, Lee RN RN la1 Belkis Michael RN RN ak1 Donal Sam RN RN hj Page, Corey, PA PA cp Corrections: (The following items were deleted from the chart) 01/15 21: 21:18 Normal except: BUN 20; GFR 71; CA 8.0. cp cp :29 01/14 18:35 Constitutional: Negative for body aches, chills, fever, poor PO intake, cp cp 01/15 21:29 01/14 18:35 Eyes: Negative for injury, pain, redness, and discharge, cp cp 01/15 21:01/14 18:35 ENT: Negative for drainage from ear(s), ear pain, sore throat, difficulty cp swallowing, difficulty handling secretions, cp 01/15 21:01/14 18:35 Respiratory: Positive for shortness of breath, on exertion. wheezing, cp Negative for cough, cp 01/15 21:01/14 18:35 Abdomen/GI: Negative for abdominal pain, nausea, vomiting, and diarrhea, cp cp 01/15 21:01/14 18:35 Cardiovascular: Positive for palpitations, chest tightness, Negative for cp edema, cp 01/15 21:01/14 18:35 Skin: Negative for rash, cp cp 01/15 21:01/14 18:35 Neuro: Negative for altered mental status, dizziness, headache, syncope, cp weakness, cp 01/15 21:01/14 18:35 All other systems are negative, cp cp 01/15 22:01/14 18:40 Constitutional: The patient appears in no acute distress, alert, awake, cp non-diaphoretic, non-toxic, well developed, well nourished, cp 01/15 22:01/14 18:40 Head/Face: Normocephalic, atraumatic. Eyes: Pupils equal round and reactive cp to light, extra-ocular motions intact. Lids and lashes normal. Conjunctiva and sclera are non-icteric and not injected. Cornea within normal limits. Periorbital areas with no swelling, redness, or edema. ENT: Nares patent. No nasal discharge, no septal abnormalities noted. Tympanic membranes are normal and external auditory canals are clear. Oropharynx with no redness, swelling, or masses, exudates, or evidence of obstruction, uvula midline. Mucous membranes moist. Chest/axilla: Normal chest wall appearance and motion. Nontender with no deformity. No lesions are appreciated. cp 01/15 22:01/14 18:40 Cardiovascular: Rate: normal, Rhythm: regular, Pulses: Pulses are 2+ in cp right radial artery and left radial artery. Heart sounds: murmur, not appreciated, Edema: is not appreciated, JVD: is not appreciated, cp 01/15 22:01/14 18:40 Respiratory: the patient does not display signs of respiratory distress, cp Respirations: normal, no use of accessory muscles, no retractions, no splinting, no tachypnea, labored breathing, is not present, Breath sounds: decreased breath sounds, are not appreciated, stridor, is not appreciated, wheezing: that is mild, is heard diffusely, cp 01/15 22:17 01/14 18:40 Abdomen/GI: Inspection: abdomen appears normal, Bowel sounds: active, all cp quadrants, Palpation: abdomen is soft and non-tender, in all quadrants, cp 01/15 22:01/14 18:40 Back: pain, is absent, ROM is normal, cp cp 01/15 22:01/14 18:40 Skin: no rash present. cp cp 01/15 22:01/14 18:40 Neuro: Orientation: to person, place \T\ time. Mentation: is normal, cp Cerebellar function: is grossly normal, Motor: moves all fours, strength is normal, Sensation: is normal, cp 01/15 23:12 21:45 01/15/2019 21:45 Transfer ordered to [facility]. Diagnosis is ak1 Anemia in other chronic diseases classified elsewhere; Gastrointestinal hemorrhage, unspecified. Reason for transfer: Higher level of care. Accepting physician is Dr. Constance Lewis. Condition is Stable. Problem is new. Symptoms have improved. cp
--- NOTE | 2019-01-16 00:44 | ER ---
Nurse's Notes [facility] Name: Irma Cain Age: 63 yrs Sex: Female : 1955 Arrival Date: 01/15/2019 Time: 17:33 Bed 13 Private MD: Diagnosis: Anemia in other chronic diseases classified elsewhere;Gastrointestinal hemorrhage, unspecified Presentation: 01/15 17:35 Presenting complaint: Patient states: I have been feeling weak and having palpitations la1 for the last 3 weeks and has been getting worse. I also have a dental infection and just finished my abx. (amoxicillin). Presenting complaint: Patient states: I have also noticed swelling in my ankles and SOB when I stand and walk too much. Transition of care: patient was not received from another setting of care. Onset of symptoms was January 15, 2019. Risk Assessment: Do you want to hurt yourself or someone else? Patient reports no desire to harm self or others. Initial Sepsis Screen: Does the patient meet any 2 criteria? No. Patient's initial sepsis screen is negative. Does the patient have a suspected source of infection? No. Patient's initial sepsis screen is negative. Care prior to arrival: None. 17:35 Method Of Arrival: Wheelchair la1 17:35 Acuity: FELA 3 la1 Triage Assessment: 17:42 General: Appears in no apparent distress. uncomfortable, Behavior is calm, cooperative, hj appropriate for age. Pain: Denies pain. Historical: - Allergies: 17:37 Aspirin; la1 17:37 Talwin; la1 17:37 Benadryl; la1 17:37 Demerol; la1 17:37 Neosporin ([id number]); la1 17:37 NSAIDS; la1 17:37 Tylenol; la1 - Home Meds: 17:47 Adderall XR 20 mg Oral cp24 1 cap 2 times daily [Active]; Albuterol Inhl [Active]; hj alprazolam 1 mg Oral tab 1 tab four times a day [Active]; Breo Ellipta 100-25 mcg/dose inhalation dsdv [Active]; Daliresp 500 mcg Oral tab 1 tab once daily [Active]; Deplin (algal oil) Oral [Active]; Effexor XR 150 mg Oral cp24 2 cap once daily [Active]; omeprazole 40 mg Oral cpDR 1 cap once daily [Active]; prednisone 10 mg Oral tab 1 tab 2 times per day [Active]; Ventolin Rotahaler/Rotacaps Inhl [Active]; - PMHx: 17:37 Anemia; Anxiety; Asthma; basal cell carcinoma; Depression; Hypertension; Osteoporosis; la1 - Immunization history:: Adult Immunizations up to date. - Social history:: Smoking status: Patient/guardian denies using tobacco. - Ebola Screening: : No symptoms or risks identified at this time. Screenin:41 Abuse screen: Denies threats or abuse. Denies injuries from another. Nutritional hj screening: No deficits noted. Tuberculosis screening: No symptoms or risk factors identified. Fall Risk None identified. Assessment: 17:47 General: Appears in no apparent distress. uncomfortable, Behavior is cooperative, hj appropriate for age, crying. Pain: Denies pain. Neuro: Level of Consciousness is awake, alert, obeys commands, Oriented to person, place, time, situation, Appropriate for age. Cardiovascular: Capillary refill < 3 seconds Patient's skin is warm and dry. Respiratory: Airway is patent Respiratory effort is even, unlabored, Respiratory pattern is regular, symmetrical. GI: No signs and/or symptoms were reported involving the gastrointestinal system. : No signs and/or symptoms were reported regarding the genitourinary system. EENT: No signs and/or symptoms were reported regarding the EENT system. Derm: No signs and/or symptoms reported regarding the dermatologic system. Musculoskeletal: No signs and/or symptoms reported regarding the musculoskeletal system. 19:07 Reassessment: lab contacted to re-collect. ak1 21:01 Reassessment: Patient appears in no apparent distress at this time. Patient and/or ak1 family updated on plan of care and expected duration. Pain level reassessed. Patient is alert, oriented x 3, equal unlabored respirations, skin warm/dry/pink. Patient denies pain at this time. GI: Abdomen is round non-distended, Bowel sounds present X 4 quads. Abd is soft and non tender X 4 quads. Reports bloody stool. 21:02 Reassessment: pt informed of need for transfer and transfusion. ak1 23:11 Reassessment: Patient appears in no apparent distress at this time. No changes from ak1 previously documented assessment. Patient and/or family updated on plan of care and expected duration. Pain level reassessed. Patient is alert, oriented x 3, equal unlabored respirations, skin warm/dry/pink. report give to Jonnie with [facility] Patient denies pain at this time. Vital Signs: 17:37 BP 146 / 79; Pulse 110; Resp 16; Temp 97.2; Pulse Ox 98% on R/A; Weight 55.79 kg; la1 Height 5 ft. 1 in. (154.94 cm); 18:05 BP 137 / 53; Pulse 98; Resp 18; Pulse Ox 100% on R/A; hj 19:26 BP 136 / 52; Pulse 92; Resp 20; Temp 98.1; Pulse Ox 100% on R/A; ak1 21:00 BP 139 / 63; Pulse 96; Resp 20; Temp 98.2; Pulse Ox 100% on Nebulizer Mask; Pain 0/10; ak1 17:37 Body Mass Index 23.24 (55.79 kg, 154.94 cm) la1 ED Course: 17:33 Patient arrived in ED. rg4 17:37 Triage completed. la1 17:37 Arm band placed on right wrist. la1 17:41 Donal Sam RN is Primary Nurse. hj 17:42 Moi Rivera PA is PHCP. cp 17:42 Moi Berrios MD is Attending Physician. cp 17:42 Patient has correct armband on for positive identification. Placed in gown. Bed in low hj position. Call light in reach. Side rails up X 1. 17:56 EKG done, by ED staff, reviewed by Moi MORLEY. jb1 19:06 XRAY Chest (1 view) In Process Unspecified. EDMS 19:06 CT completed. Patient tolerated procedure well. Patient moved back from CT. mw3 19:06 CT Head Brain wo Cont In Process Unspecified. 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 ak1 20:54 Inserted saline lock: 22 gauge in left forearm, using aseptic technique. ,using aseptic ak1 technique. placed by Anna Conner RN Blood collected. 21:58 Patient transferred, IV remains in place. ak1 Administered Medications: 19:25 Drug: GI Cocktail without - (Maalox Suspension 30 ml, Lidocaine Liquid 2 % 15 ak1 ml) Route: PO; 19:37 Follow up: Response: No adverse reaction ak1 21:00 Follow up: Response: No adverse reaction; Pain is decreased ak1 20:53 Drug: Xopenex (3) 1.25 mg Route: Inhalation; ak1 20:54 Drug: ProTONIX 40 mg Route: IVP; Site: left forearm; ak1 21:00 Follow up: Response: No adverse reaction ak1 21:13 Drug: ProTONIX 8 mg/hr Route: IV; Rate: 25 ml/hr; Site: left forearm; ak1 21:54 Follow up: IV Status: Infusion continued upon transfer ak1 Point of Care Testing: Guaiac: 19:53 Stool Guaiac: Positive; Stool Hemoccult Control: Pass; ak1 Outcome: 21:45 ER care complete, transfer ordered by . cp 21:55 Transferred by ground EMS to [facility], Transfer form completed. ak1 X-rays sent w/ patient. Note: Report given to Vero MARIA for Bed 10 in [facility] ICU [address] [address]. 21:55 Condition: stable 21:55 Instructed on the need for transfer, Demonstrated understanding of 23:12 Patient left the ED. ak1 Signatures: Dispatcher [employer] EDMS Duglas Austin jb1 Alek Esparza RN RN Belkis Espinoza RN RN ak1 Donal Sam RN RN hj Page, Corey, PA PA cp Garcia, Rubi rg4 Eugenia Thompson mw3
[2019-01-16 01:07] LABS: Urine Blood NEGATIVE (NEG); Urine Glucose NEGATIVE (NEG); Urine pH 5.5 (5.0-7.0)
[2019-01-16 01:08] LABS: Urine Protein NEGATIVE (NEG)
[2019-01-16 03:04] VITALS: O2SAT 100
[2019-01-16 03:09] VITALS: BP 139/63; TEMP 98.2
--- NOTE | 2019-01-16 07:53 | EKG ---
Test Date: 2019-01-15 Test Time: 17:48:48 Door Person: RODRIGO MEASUREMENT RESULTS: Intervals: Rate: 102 CO: 134 QRSD: 60 QT: 338 QTc: 440 Bend: P: 75 CO: 134 QRS: 62 T: 28 INTERPRETIVE STATEMENTS: Sinus tachycardia Otherwise normal ECG Compared to ECG 09/03/2018 15:19:35 T-wave abnormality no longer present Electronically Signed On 01-16-19 07:53:10 CDT by Pravin Solis
--- NOTE | 2019-01-16 11:28 | RAD REPORT ---
EXAM DESCRIPTION: CT - Head Brain Wo Cont - 01/15/2019 7:44 pm CLINICAL HISTORY: General weakness. COMPARISON: None. TECHNIQUE: CT scan of the brain without IV contrast. This exam was performed according to our depa rtmental dose-optimization program, which includes automated exposure control, adjustment of the mA a nd/or kV according to patient size and/or use of iterative reconstruction technique. FINDINGS: Diffuse involutional changes are present. There are scattered areas of hypoattenuation wit hin the periventricular white matter, which likely represent chronic microvascular ischemia. No evide nce of acute infarction, intracranial hemorrhage, extra-axial fluid collection, or midline shift. The re is sinus disease involving the right frontal, bilateral ethmoid, right sphenoid, and bilateral max illary sinuses. There is also opacification of multiple left-sided mastoid air cells. No depressed sk ull fracture. IMPRESSION: 1. No acute intracranial findings. 2. Sinus mucosal inflammatory disease. 3. Left-sided mastoiditis which may be chronic. Electronically signed by: Zac Valdivia MD 01/15/2019 7:23 PM CDT Due to temporary technical issues with the PACS/Fluency reporting system, reports are being signed by the in house radiologist as a courtesy to ensure prompt reporting. The interpreting radiologist is f ully responsible for the content of the report.
== END 2019-01-15 23:12 | disposition short-term general hospital (02) ==
LOC: ER 17:32
DX: D64.9 Anemia, unspecified (principal); K92.2 Gastrointestinal hemorrhage, unspecified; I10 Essential (primary) hypertension; F32.9 Major depressive disorder, single episode, unspecified; F41.9 Anxiety disorder, unspecified; J45.909 Unspecified asthma, uncomplicated; Z85.9 Personal history of malignant neoplasm, unspecified; Z88.3 Allergy status to other anti-infective agents; Z88.5 Allergy status to narcotic agent; Z88.6 Allergy status to analgesic agent; Z88.8 Allergy status to other drugs, medicaments and biological substances
CPT/HCPCS: 93005; 85025; 80048; 36415; 86900; 83735; 86850; 85610; 86901; 80076; 84484; 83880; 70450; 71045; C9113 ×2; 81003; 81015; 96365; 99285

== ENCOUNTER 2019-03-04 13:42 | Emergency (ER) | payer OTHER ==
--- OUTSIDE RECORDS SUMMARY | 2019-03-04 13:45 | XMS REPORT | Clinical Summary ---
:1955 Author Organization [facility] Address [address] [place] [address] Care Team Providers Name Role Phone Shannan Norwood MD Primary Care Provider Allergies Active Allergy Reactions Severity Noted Date Comments Aspirin Anaphylaxis High 01/16/2019 Diphenhydramine Hcl Anaphylaxis, Other (See High 01/16/2019 Comments) Ukdmyxht-Cunfnlcjic-Ycfxsmvqu Other (See Comments) 01/16/2019 Arshad skin Pentazocine-Aspirin Nausea And Vomiting 01/16/2019 Medications Medication Sig Dispensed Refills Start Date End Date Status venlafaxine Take 75 mg by 0 Active (EFFEXOR) 75 MG mouth 2 (two) tabletIndications: times daily. major depressive disorder ALPRAZolam (XANAX) Take 1 mg by 0 Active 1 MG tablet mouth 3 (three) times daily as needed for Anxiety. predniSONE Take 10 mg by 0 Active (DELTASONE) 10 MG mouth daily. tabletIndications: asthma roflumilast Take 500 mcg by 0 Active (DALIRESP) 500 mcg mouth daily. Tab tablet fluticasone Inhale 1 puff by 0 Active furoate-vilanterol mouth via inhaler (BREO ELLIPTA) daily. 100-25 mcg/dose DsDv albuterol HFA Inhale 1 puff by 0 Active (VENTOLIN HFA) 90 mouth via inhaler mcg/actuation every 6 (six) inhaler hours as needed for Wheezing. dextroamphetamine- Take 20 mg by 0 Active amphetamine mouth 2 (two) (ADDERALL) 20 mg times daily. Tab tablet pantoprazole Take 2 tablets 60 tablet 11 01/19/2019 Active (PROTONIX) 20 MG (40 mg total) by 0 tablet mouth daily. omeprazole Take 40 mg by 0 Discontinued (PRILOSEC) 40 MG mouth daily. 9 capsule sulfamethoxazole-t Take 1 tablet (80 30 tablet 1 01/20/2019 rimethoprim mg of 9 (BACTRIM,SEPTRA) trimethoprim 400-80 mg per total) by mouth 3 tablet (three) times a week for 10 days. Active Problems Problem Noted Date Acute GI bleeding 01/16/2019 Encounters Date Type Specialty Care Team Description 01/18/2019 Anesthesia Event Gastroenterology Jami Rebollar, [employer] EXECUTIVE 01/18/2019 Surgery Gastroenterology Criss Monroe MD COLONOSCOPY,POLYPEC TERESA 01/18/2019 Outside Orders Radiology Marcelle Geiger 01/16/2019 - Hospital Encounter Cardiology Debbie Norman, Acute GI bleeding; 01/19/2019 MD Cj Symptomatic anemia; Kole Huff Severe persistent chronic asthma without complication; MD Paula Acute blood loss anemia Leydi Perera MD 01/16/2019 Travel after 03/03/2018 Social History Tobacco Use Types Packs/Day Years Used Date Never Smoker Smokeless Tobacco: Never Used Alcohol Use Drinks/Week oz/Week Comments No Alcohol Habits Answer Date Recorded How often do you have a drink containing alcohol? Never 01/18/2019 How many drinks containing alcohol do you have on a typical Not asked day when you are drinking? How often do you have six or more drinks on one occasion? Not asked Sex Assigned at Date Recorded Not on file Job Start Date Occupation Industry Not on file Not on file Not on file Travel History Travel Start Travel End No recent travel history available. Last Filed Vital Signs Vital Sign Reading Time Taken Blood Pressure 141/65 01/19/2019 4:00 PM CDT Pulse 98 01/19/2019 4:00 PM CDT Temperature 36.4 C (97.6 F) 01/19/2019 4:00 PM CDT Respiratory Rate 20 01/19/2019 4:00 PM CDT Oxygen Saturation 97% 01/19/2019 4:00 PM CDT Inhaled Oxygen Concentration - - Weight 55.8 kg (123 lb) 01/19/2019 7:04 AM CDT Height 154.9 cm (5' 1") 01/16/2019 8:30 AM CDT Body Mass Index 23.24 01/19/2019 7:04 AM CDT Plan of Treatment Not on file Procedures Procedure Name Priority Date/Time Associated Comments Diagnosis RHYTHM STRIP - SCAN 02/14/2019 10:51 AM CDT REPORT OF PROCEDURE - 01/20/2019 11:03 ENDOSCOPY SCAN AM CDT RHYTHM STRIP - SCAN 01/20/2019 11:03 AM CDT FL UPPER GI Routine 01/19/2019 11:50 Results for this AM CDT procedure are in the results section. CBC (HEMOGRAM ONLY) Routine 01/19/2019 8:00 Results for this AM CDT procedure are in the results section. BASIC METABOLIC PANEL Routine 01/19/2019 8:00 Results for this (7) AM CDT procedure are in the results section. TRANSFUSION SERVICE 01/18/2019 5:51 REPORT - SCAN PM CDT REPORT OF PROCEDURE - 01/18/2019 2:59 ENDOSCOPY URL PM CDT REPORT OF PROCEDURE - 01/18/2019 9:40 ENDOSCOPY URL AM CDT TISSUE EXAM AP Routine 01/18/2019 9:30 Results for this AM CDT procedure are in the results section. UPPER ENDOSCOPY 01/18/2019 9:00 Other iron AM CDT deficiency anemia COLONOSCOPY,POLYPECTOM 01/18/2019 9:00 Other iron Y AM CDT deficiency anemia VITAMIN B12 AND FOLATE Routine 01/18/2019 4:26 Results for this AM CDT procedure are in the results section. IRON, TIBC, % SAT. Routine 01/18/2019 4:26 Results for this (WITHOUT FERRITIN) AM CDT procedure are in the results section. CBC (HEMOGRAM ONLY) Routine 01/18/2019 4:26 Results for this AM CDT procedure are in the results section. BASIC METABOLIC PANEL Routine 01/18/2019 4:26 Results for this (7) AM CDT procedure are in the results section. PREPARE LEUKO-REDUCED Routine 01/17/2019 11:54 Results for this RBC PM CDT procedure are in the results section. TRANSFUSION SERVICE 01/17/2019 5:50 REPORT - SCAN PM CDT CBC W/PLT COUNT & AUTO Routine 01/17/2019 4:39 Results for this DIFFERENTIAL AM CDT procedure are in the results section. CBC W/PLT COUNT & AUTO Routine 01/17/2019 4:39 Results for this DIFFERENTIAL AM CDT procedure are in the results section. BASIC METABOLIC PANEL Routine 01/17/2019 4:39 Results for this (7) AM CDT procedure are in the results section. CBC W/PLT COUNT & AUTO Routine 01/16/2019 10:11 Results for this DIFFERENTIAL PM CDT procedure are in the results section. CBC W/PLT COUNT & AUTO Routine 01/16/2019 10:11 Results for this DIFFERENTIAL PM CDT procedure are in the results section. CBC W/PLT COUNT & AUTO Routine 01/16/2019 12:06 Results for this DIFFERENTIAL PM CDT procedure are in the results section. CBC W/PLT COUNT & AUTO Routine 01/16/2019 12:06 Results for this DIFFERENTIAL PM CDT procedure are in the results section. PROTHROMBIN TIME/INR STAT 01/16/2019 8:48 Results for this AM CDT procedure are in the results section. TRANSFUSE Routine 01/16/2019 8:35 LEUKO-REDUCED RED AM CDT BLOOD CELLS CBC W/PLT COUNT & AUTO Routine 01/16/2019 6:17 Results for this DIFFERENTIAL AM CDT procedure are in the results section. COMPREHENSIVE Routine 01/16/2019 6:17 Results for this METABOLIC PANEL AM CDT procedure are in the results section. CBC W/PLT COUNT & AUTO Routine 01/16/2019 6:17 Results for this DIFFERENTIAL AM CDT procedure are in the results section. TRANSFUSE Routine 01/16/2019 5:41 LEUKO-REDUCED RED AM CDT BLOOD CELLS ABORH, MANUAL STAT 01/16/2019 2:14 Results for this AM CDT procedure are in the results section. CBC W/PLT COUNT & AUTO Routine 01/16/2019 1:25 Results for this DIFFERENTIAL AM CDT procedure are in the results section. TYPE AND SCREEN, Routine 01/16/2019 1:25 Results for this AUTOMATED AM CDT procedure are in the results section. BASIC METABOLIC PANEL Routine 01/16/2019 1:25 Results for this (7) AM CDT procedure are in the results section. CBC W/PLT COUNT & AUTO Routine 01/16/2019 1:25 Results for this DIFFERENTIAL AM CDT procedure are in the results section. after 03/03/2018 Results RHYTHM STRIP - SCAN (02/14/2019 10:51 AM CDT)Only the most recent of2 resultswithin the time period is included. Narrative Performed At EKG-SCANNED (01/20/2019 11:03 AM CDT) Narrative Performed At [place] upper GI (01/19/2019 11:50 AM CDT) Specimen Narrative Performed At FINAL REPORT [facility] Upper GI examination History: Suggestion of large hiatal hernia on EGD - better define anatomy and evaluate for paraesophageal hernia. Technique: Upper GI examination was performed using thin barium Findings: The esophageal motility and caliber appears normal. Surgical clips are noted in the distal esophagus. 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 No extravasation of contrast. There is a large sliding hiatal hernia containing at least 50% of the stomach. Mild gastroesophageal reflux is identified. Esophageal and gastric mucosa is not optimally evaluated on this exam. Total fluoroscopy time: One minute Total number of films: 10 Impression: Large sliding hiatal hernia. Signed: Gordon Orellana MD Report Verified Date/Time:01/19/2019 13:45:41 Reading Location: [address] Ortho Consult Reading Room Procedure Note Interface, External Ris In - 01/19/2019 1:47 PM CDT FINAL REPORT Upper GI examination History: Suggestion of large hiatal hernia on EGD - better define anatomy and evaluate for paraesophageal hernia. Technique: Upper GI examination was performed using thin barium Findings: The esophageal motility and caliber appears normal. Surgical clips are noted in the distal esophagus. 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 No extravasation of contrast. There is a large sliding hiatal hernia containing at least 50% of the stomach. Mild gastroesophageal reflux is identified. Esophageal and gastric mucosa is not optimally evaluated on this exam. Total fluoroscopy time: One minute Total number of films: 10 Impression: Large sliding hiatal hernia. Signed: Gordon Orellana MD Report Verified Date/Time: 01/19/2019 13:45:41 Reading Location: [facility] C0[facility] Ortho Consult Reading Room Performing Organization Address City/State/Zipcode Phone Number [facility] CBC (Hemogram only) (01/19/2019 8:00 AM CDT)Only the most recent of2 resultswithin the time period is included. WBC 6.9 3.5 - 10.5 K/L [facility] RBC 3.99 3.93 - 5.22 M/L [facility] Hemoglobin 9.5 (L) 11.2 - 15.7 GM/DL [facility] Hematocrit 33.3 (L) 34.1 - 44.9 % [facility] MCV 83.5 79.4 - 94.8 fL [facility] MCH 23.8 (L) 25.6 - 32.2 pg [facility] MCHC 28.5 (L) 32.2 - 35.5 GM/DL [facility] RDW 20.6 (H) 11.7 - 14.4 % [facility] Platelets 351 150 - 450 K/CU MM [facility] MPV 9.6 9.4 - 12.3 fL [facility] nRBC 0 0 - 0 /100 WBC [facility] Specimen Blood Performing Organization Address City/State/Zipcode Phone Number [facility] [address] [place] [address] [phone] CENTER Basic Metabolic Panel (01/19/2019 8:00 AM CDT)Only the most recent of4 resultswithin the time period is included. Sodium 142 136 - 145 meq/L [facility] Potassium 3.9 3.5 - 5.1 meq/L [facility] Chloride 110 (H) 98 - 107 meq/L [facility] CO2 27 22 - 29 meq/L [facility] BUN 5 (L) 7 - 21 mg/dL [facility] Creatinine 0.78 0.57 - 1.25 mg/dL [facility] Glucose 95 70 - 105 mg/dL [facility] Calcium 8.6 8.4 - 10.2 mg/dL [facility] EGFR 75Comment: ESTIMATED GFR IS mL/min/1.73 sq m [facility] NOT ACCURATE [facility] CLEARANCE IN PREDICTING GLOMERULAR FILTRATION RATE. ESTIMATED GFR IS NOT APPLICABLE FOR DIALYSIS PATIENTS. Specimen Blood Performing Organization Address City/State/Zipcode Phone Number [facility] [address] [place] [address] [phone] CENTER TRANSFUSION SERVICE REPORT - SCAN (01/18/2019 5:51 PM CDT)Only the most recent of2 resultswithin the time period is included. Narrative Performed At REPORT OF PROCEDURE - ENDOSCOPY URL (01/18/2019 2:59 PM CDT) Narrative Performed At REPORT OF PROCEDURE - ENDOSCOPY URL (01/18/2019 9:40 AM CDT) Narrative Performed At Tissue Exam (01/18/2019 9:30 AM CDT) Case Report Surgical Pathology Report Case: [id number] [facility] Authorizing Provider:Criss Monroe MDCollected: 01/18/2019 0930 [facility] Ordering Location: [address] Received: 01/18/2019 1359 Service Pathologist: Sola Kingston MD Specimen:Polyp, Colon - Sigmoid DIAGNOSIS COLON, SIGMOID POLYP, POLYPECTOMY [facility] - TUBULAR ADENOMA [facility] DYSPLASIA NOT SEEN Signing Pathologist Direct Phone Line: [phone] CPT Code(s) 41535 [facility] CLINICAL HISTORY [facility] Preoperative and postoperative diagnosis: Other iron deficiency anemia [facility] SPECIMEN SOURCE Received in one part. [facility] Polyp, colon-sigmoid [facility] GROSS DESCRIPTION Received in formalin labeled [facility] with the patient's name, [facility] accession number and "polyp, colon-sigmoid" is a 0.4-cm pino polyp which is submitted in toto in A1. CG/bc MICROSCOPIC DESCRIPTION Performed. [facility] Specimen Tissue - Polyp, Colon - Sigmoid Performing Organization Address City/State/Zipcode Phone Number [facility] [address] [address] CENTER Vitamin B12 and Folate (01/18/2019 4:26 AM CDT) Vitamin B12 323 213 - 816 pg/mL [facility] Folate 11.0 >=7.0 ng/mL [facility] Specimen Blood Performing Organization Address City/[facility] Phone Number [address] [address] [phone] CENTER Iron, TIBC, % sat. (without ferritin) (01/18/2019 4:26 AM CDT) Iron 19.0 (L) 40.0 - 160.0 ug/dL [facility] TIBC 329 250 - 450 ug/dL [facility] Iron % Saturation 6 (L) 20 - 55 % [facility] Specimen Blood Performing Organization Address [facility] Phone Number [address] [address] CENTER Prepare Leuko-Red RBC (01/17/2019 11:54 PM CDT) CROSSMATCH COMPATIBLE SAFETRACE TX Unit ABO O Pos SAFETRACE TX UNIT NUMBER [id number] SAFETRACE TX Status TX_TIMEINCHART SAFETRACE TX Blood Bank Product RED BLOOD CELLS SAFETRACE TX PRODUCT CODE [id number] SAFETRACE TX CROSSMATCH COMPATIBLE SAFETRACE TX Unit ABO O Pos SAFETRACE TX UNIT NUMBER [id number] SAFETRACE TX Status TX_TIMEINCHART SAFETRACE TX Blood Bank Product RED BLOOD CELLS SAFETRACE TX PRODUCT CODE [id number] SAFETRACE TX Specimen Other Performing Organization Address [facility] Phone Number [facility] [place] CBC with platelet count + automated diff (01/17/2019 4:39 AM CDT)Only the most recent of5 resultswithin the time period is included. WBC 8.1 3.5 - 10.5 K/L [facility] RBC 4.69 3.93 - 5.22 M/L [facility] Hemoglobin 11.1 (L) 11.2 - 15.7 GM/DL [facility] Hematocrit 38.7 34.1 - 44.9 % [facility] MCV 82.5 79.4 - 94.8 fL [facility] MCH 23.7 (L) 25.6 - 32.2 pg [facility] MCHC 28.7 (L) 32.2 - 35.5 GM/DL [facility] RDW 20.1 (H) 11.7 - 14.4 % [facility] Platelets 388 150 - 450 K/CU MM [facility] MPV 10.0 9.4 - 12.3 fL [facility] nRBC 0 0 - 0 /100 WBC [facility] % Neutros 65 % [facility] % Lymphs 25 % [facility] % Monos 7 % [facility] % Eos 2 % [facility] % Baso 0 % [facility] # Neutros 5.27 1.56 - 6.13 K/L [facility] # Lymphs 2.06 1.18 - 3.74 K/L [facility] # Monos 0.54 (H) 0.24 - 0.36 K/L [facility] # Eos 0.15 0.04 - 0.36 K/L [facility] # Baso 0.03 0.01 - 0.08 K/L [facility] Immature Granulocytes-Relative 1 0 - 1 % [facility] Specimen Blood Performing Organization Address City/State/Zipcode Phone Number [address] [address] CENTER Prothrombin time/INR (01/16/2019 8:48 AM CDT) Protime 13.5 11.9 - 14.2 seconds [facility] INR 1.1 <=5.9 [facility] Specimen Blood Narrative Performed At Effective 12/21/2018: PT Reference Range [facility] Change New: 11.9-14.2Previous: 11.7-14.7 RECOMMENDED COUMADIN/WARFARIN INR THERAPY RANGES STANDARD DOSE: 2.0-3.0Includes: PROPHYLAXIS for venous thrombosis, systemic embolization; TREATMENT for venous thrombosis and/or pulmonary embolus. HIGH RISK: Target INR is 2.5-3.5 for patients wiht mechanical heart valves. Performing Organization Address City/State/Zipcode Phone Number [address] [address] [place] Transfuse Leuko-Red RBC (01/16/2019 8:35 AM CDT)Only the most recent of2 resultswithin the time period is included.Comprehensive metabolic panel (2018 6:17 AM CDT) Protein, Total 5.2 (L) 6.0 - 8.3 gm/dL [facility] Albumin 3.1 (L) 3.5 - 5.0 g/dL [facility] Alkaline Phosphatase 62 40 - 150 U/L [facility] Total Bilirubin 0.8 0.2 - 1.2 mg/dL [facility] Sodium 142 136 - 145 meq/L [facility] Potassium 3.8 3.5 - 5.1 meq/L [facility] Chloride 111 (H) 98 - 107 meq/L [facility] CO2 26 22 - 29 meq/L [facility] BUN 15 7 - 21 mg/dL [facility] Creatinine 0.81 0.57 - 1.25 mg/dL [facility] Glucose 86 70 - 105 mg/dL [facility] Calcium 7.9 (L) 8.4 - 10.2 mg/dL [facility] AST 12 5 - 34 U/L [facility] ALT 9 6 - 55 U/L [facility] EGFR 72Comment: ESTIMATED GFR mL/min/1.73 sq m [facility] IS NOT ACCURATE [facility] CREATININE CLEARANCE IN PREDICTING GLOMERULAR FILTRATION RATE. ESTIMATED GFR IS NOT APPLICABLE FOR DIALYSIS PATIENTS. Specimen Blood Performing Organization Address City/[facility] Cent[facility]ode Phone Number [address] [address] CENTER ABORH, manual (01/16/2019 2:14 AM CDT) ABO Grouping O [facility] Rh Factor POS [facility] Specimen Blood Performing Organization Address [facility] Centercode Phone Number [address] [address] Type and screen, automated (01/16/2019 1:25 AM CDT) ABO/RH AUTOMATED (BEAKER) O POSITIVE [facility] Ab Scrn NEGATIVE [facility] Specimen Blood Performing Organization Address [facility] Cent[facility]ode Phone Number [address] [address] after 03/03/2018 Insurance Payer Benefit Plan / Group Subscriber ID Type Phone Address [employer] - MEDICARE MGD [employer] MEDICARE ADV xxxxxxxxx Maps Contracted CARE Advance Directives For more information, please contact:[facility] Cain[place]ises[place], [place] [phone] Code Status Date Activated Date Inactivated Comments Full Code 01/16/2019 4:03 AM 01/19/2019 7:41 PM This code status was determined by: Patient
--- OUTSIDE RECORDS SUMMARY | 2019-03-04 13:47 | XMS REPORT ---
:1955 [facility] Address [address] [place] [address] [address]. Nichole [address] [place] [address] Care Team Providers Name Role Phone ARISTEO DAVIDSON Unavailable Unavailable Lopez Nicole Unavailable Unavailable Problems This patient has no known problems. Allergies, Adverse Reactions, Alerts This patient has no known allergies or adverse reactions. Medications This patient has no known medications. Results Test Description Test Time Test Comments Text Results Atomic Results Result Comments TISSUE EXAM 2019-01-19 Surgical Pathology Report 15:28:00 Case: [id number] Authorizing Provider: Criss Monroe MD Collected: 01/18/2019 0930 Ordering Location: [address] Received: 01/18/2019 0549 Service Pathologist: Sola Kingston MD Specimen: Polyp, Colon - Sigmoid COLON, SIGMOID POLYP, POLYPECTOMY- TUBULAR ADENOMA- HIGH GRADE DYSPLASIA NOT SEEN Signing Pathologist Direct Phone Line: [phone] signed by Sola Kingston MD on 01/19/2019 at 3:28 [id number] and postoperative diagnosis: Other iron deficiency anemiaReceived in one part. Polyp, colon-sigmoidReceived in formalin labeled with the patient's name, accession number and "polyp, colon-sigmoid" is a 0.4-cm pino polyp which is submitted in toto in A1. CG/bc Performed. FL, UGI, 2019-01-19 Reason for FINAL REPORT PATIENT ID: WITHOUT KUB 13:45:00 exam:->Suggestion of [id number] Upper GI examination large hiatal hernia History: Suggestion of large on EGD - better hiatal hernia on EGD - better define anatomy and define anatomy and evaluate for evaluate for paraesophageal hernia. paraesophageal Technique: Upper GI examination hernia. was performed using thin barium Findings: The [...] Large sliding hiatal hernia. Signed: Gordon Orellana MDReport Verified Date/Time: 01/19/2019 13:45:41 Reading Location: [facility] [id number] Ortho Consult Reading Room C METABOLIC PANEL 2019-01-19 08:32:00 Test Item Value Reference Range Comments SODIUM (BEAKER) (test 142 meq/L 136-145 zjuc=684) POTASSIUM (BEAKER) (test 3.9 meq/L 3.5-5.1 szhj=080) CHLORIDE (BEAKER) (test 110 meq/L 98-107 hfge=061) CO2 (BEAKER) (test ezwl=056) 27 meq/L 22-29 BLOOD UREA NITROGEN (BEAKER) 5 mg/dL 7-21 (test fqhm=026) CREATININE (BEAKER) (test 0.78 mg/dL 0.57-1.25 axit=292) GLUCOSE RANDOM (BEAKER) 95 mg/dL 70-105 (test ywos=040) CALCIUM (BEAKER) (test 8.6 mg/dL 8.4-10.2 htck=453) EGFR (BEAKER) (test 75 mL/min/1.73 sq m ESTIMATED GFR IS NOT lzle=0651) ACCURATE CREATININE CLEARANCE IN PREDICTING GLOMERULAR FILTRATION RATE. ESTIMATED GFR IS NOT APPLICABLE FOR DIALYSIS PATIENTS. CBC (HEMOGRAM ONLY)2019-01-19 08:24:00 Test Item Value Reference Range Comments WHITE BLOOD CELL COUNT (BEAKER) (test gnai=163) 6.9 K/ L 3.5-10.5 RED BLOOD CELL COUNT (BEAKER) (test neof=295) 3.99 M/ L 3.93-5.22 HEMOGLOBIN (BEAKER) (test inzy=491) 9.5 GM/DL 11.2-15.7 HEMATOCRIT (BEAKER) (test iwvw=524) 33.3 % 34.1-44.9 MEAN CORPUSCULAR VOLUME (BEAKER) (test nkvw=480) 83.5 fL 79.4-94.8 MEAN CORPUSCULAR HEMOGLOBIN (BEAKER) (test 23.8 pg 25.6-32.2 zqmx=456) MEAN CORPUSCULAR HEMOGLOBIN CONC (BEAKER) (test 28.5 GM/DL 32.2-35.5 gopm=162) RED CELL DISTRIBUTION WIDTH (BEAKER) (test 20.6 % 11.7-14.4 ffqx=823) PLATELET COUNT (BEAKER) (test guxe=624) 351 K/CU MM 150-450 MEAN PLATELET VOLUME (BEAKER) (test elxh=782) 9.6 fL 9.4-12.3 NUCLEATED RED BLOOD CELLS (BEAKER) (test 0 /100 WBC 0-0 zosh=421) VITAMIN B12 AND [id number] 05:50:00 Test Item Value Reference Range Comments VITAMIN B12 (BEAKER) (test ikan=670) 323 pg/mL 213-816 FOLATE (BEAKER) (test llsq=954) 11.0 ng/mL >=7.0 BASIC METABOLIC [id number] 05:46:00 Test Item Value Reference Range Comments SODIUM (BEAKER) (test 142 meq/L 136-145 umsz=782) POTASSIUM (BEAKER) (test 3.8 meq/L 3.5-5.1 kfgx=631) CHLORIDE (BEAKER) (test 112 meq/L 98-107 xudv=729) CO2 (BEAKER) (test 22 meq/L 22-29 aihj=048) BLOOD UREA NITROGEN 3 mg/dL 7-21 (BEAKER) (test njhx=112) CREATININE (BEAKER) (test 0.77 mg/dL 0.57-1.25 xuye=700) GLUCOSE RANDOM (BEAKER) 85 mg/dL 70-105 (test xkpn=655) CALCIUM (BEAKER) (test 8.1 mg/dL 8.4-10.2 ibuq=115) EGFR (BEAKER) (test 76 mL/min/1.73 sq m ESTIMATED GFR IS NOT donb=9182) ACCURATE CREATININE CLEARANCE IN PREDICTING GLOMERULAR FILTRATION RATE. ESTIMATED GFR IS NOT APPLICABLE FOR DIALYSIS PATIENTS. IRON, TIBC, % SAT. (WITHOUT FERRITIN)2019-01-18 05:04:00 Test Item Value Reference Range Comments IRON (BEAKER) (test tvfd=620) 19.0 ug/dL 40.0-160.0 TOTAL IRON BINDING CAPACITY (BEAKER) (test 329 ug/dL 250-450 bxek=860) IRON % SATURATION (2) (BEAKER) (test psby=5417) 6 % 20-55 CBC (HEMOGRAM ONLY)2019-01-18 04:44:00 Test Item Value Reference Range Comments WHITE BLOOD CELL COUNT (BEAKER) (test pmsr=490) 6.1 K/ L 3.5-10.5 RED BLOOD CELL COUNT (BEAKER) (test zytj=185) 4.14 M/ L 3.93-5.22 HEMOGLOBIN (BEAKER) (test bscr=824) 10.1 GM/DL 11.2-15.7 HEMATOCRIT (BEAKER) (test utyt=836) 34.2 % 34.1-44.9 MEAN CORPUSCULAR VOLUME (BEAKER) (test opaj=429) 82.6 fL 79.4-94.8 MEAN CORPUSCULAR HEMOGLOBIN (BEAKER) (test 24.4 pg 25.6-32.2 cjhw=566) MEAN CORPUSCULAR HEMOGLOBIN CONC (BEAKER) (test 29.5 GM/DL 32.2-35.5 ipvt=270) RED CELL DISTRIBUTION WIDTH (BEAKER) (test 20.8 % 11.7-14.4 qmya=166) PLATELET COUNT (BEAKER) (test mkis=645) 342 K/CU MM 150-450 MEAN PLATELET VOLUME (BEAKER) (test ragj=365) 9.9 fL 9.4-12.3 NUCLEATED RED BLOOD CELLS (BEAKER) (test 0 /100 WBC 0-0 hgul=387) BASIC METABOLIC [id number] 06:19:00 Test Item Value Reference Range Comments SODIUM (BEAKER) (test 144 meq/L 136-145 qifg=096) POTASSIUM (BEAKER) (test 3.6 meq/L 3.5-5.1 dfbl=224) CHLORIDE (BEAKER) (test 108 meq/L 98-107 hboy=291) CO2 (BEAKER) (test 26 meq/L 22-29 eapt=276) BLOOD UREA NITROGEN 6 mg/dL 7-21 (BEAKER) (test uptu=572) CREATININE (BEAKER) (test 0.83 mg/dL 0.57-1.25 qgfk=930) GLUCOSE RANDOM (BEAKER) 71 mg/dL 70-105 (test qlot=592) CALCIUM (BEAKER) (test 9.3 mg/dL 8.4-10.2 ahad=208) EGFR (BEAKER) (test 70 mL/min/1.73 sq m ESTIMATED GFR IS NOT nofx=5671) ACCURATE CREATININE CLEARANCE IN PREDICTING GLOMERULAR FILTRATION RATE. ESTIMATED GFR IS NOT APPLICABLE FOR DIALYSIS PATIENTS. Specimen slightly ictericCBC W/PLT COUNT & AUTO [id number] 05:36 :00 Test Item Value Reference Range Comments WHITE BLOOD CELL COUNT (BEAKER) (test pcxp=219) 8.1 K/ L 3.5-10.5 RED BLOOD CELL COUNT (BEAKER) (test mxgv=476) 4.69 M/ L 3.93-5.22 HEMOGLOBIN (BEAKER) (test oubo=545) 11.1 GM/DL 11.2-15.7 HEMATOCRIT (BEAKER) (test jsef=447) 38.7 % 34.1-44.9 MEAN CORPUSCULAR VOLUME (BEAKER) (test prol=807) 82.5 fL 79.4-94.8 MEAN CORPUSCULAR HEMOGLOBIN (BEAKER) (test 23.7 pg 25.6-32.2 wkfi=831) MEAN CORPUSCULAR HEMOGLOBIN CONC (BEAKER) (test 28.7 GM/DL 32.2-35.5 sjts=934) RED CELL DISTRIBUTION WIDTH (BEAKER) (test 20.1 % 11.7-14.4 jtfw=262) PLATELET COUNT (BEAKER) (test hoxb=098) 388 K/CU MM 150-450 MEAN PLATELET VOLUME (BEAKER) (test pdsb=619) 10.0 fL 9.4-12.3 NUCLEATED RED BLOOD CELLS (BEAKER) (test 0 /100 WBC 0-0 kmtn=499) NEUTROPHILS RELATIVE PERCENT (BEAKER) (test 65 % zcpe=576) LYMPHOCYTES RELATIVE PERCENT (BEAKER) (test 25 % lfpz=171) MONOCYTES RELATIVE PERCENT (BEAKER) (test 7 % jblz=834) EOSINOPHILS RELATIVE PERCENT (BEAKER) (test 2 % ytua=331) BASOPHILS RELATIVE PERCENT (BEAKER) (test 0 % hmsn=560) NEUTROPHILS ABSOLUTE COUNT (BEAKER) (test 5.27 K/ L 1.56-6.13 jvco=985) LYMPHOCYTES ABSOLUTE COUNT (BEAKER) (test 2.06 K/ L 1.18-3.74 vaxq=599) MONOCYTES ABSOLUTE COUNT (BEAKER) (test 0.54 K/ L 0.24-0.36 jzwu=023) EOSINOPHILS ABSOLUTE COUNT (BEAKER) (test 0.15 K/ L 0.04-0.36 flld=856) BASOPHILS ABSOLUTE COUNT (BEAKER) (test 0.03 K/ L 0.01-0.08 oyqm=885) IMMATURE GRANULOCYTES-RELATIVE PERCENT (BEAKER) 1 % 0-1 (test fghh=8860) CBC W/PLT COUNT & AUTO [id number] 22:19:00 Test Item Value Reference Range Comments WHITE BLOOD CELL COUNT (BEAKER) (test xwdv=111) 8.8 K/ L 3.5-10.5 RED BLOOD CELL COUNT (BEAKER) (test trjm=669) 3.59 M/ L 3.93-5.22 HEMOGLOBIN (BEAKER) (test lact=090) 8.6 GM/DL 11.2-15.7 HEMATOCRIT (BEAKER) (test zuha=410) 28.7 % 34.1-44.9 MEAN CORPUSCULAR VOLUME (BEAKER) (test pbkc=975) 79.9 fL 79.4-94.8 MEAN CORPUSCULAR HEMOGLOBIN (BEAKER) (test 24.0 pg 25.6-32.2 vebr=528) MEAN CORPUSCULAR HEMOGLOBIN CONC (BEAKER) (test 30.0 GM/DL 32.2-35.5 dctg=169) RED CELL DISTRIBUTION WIDTH (BEAKER) (test 19.3 % 11.7-14.4 numq=106) PLATELET COUNT (BEAKER) (test epzc=144) 310 K/CU MM 150-450 MEAN PLATELET VOLUME (BEAKER) (test kspy=765) 10.2 fL 9.4-12.3 NUCLEATED RED BLOOD CELLS (BEAKER) (test 1 /100 WBC 0-0 glbk=556) NEUTROPHILS RELATIVE PERCENT (BEAKER) (test 73 % qcfh=630) LYMPHOCYTES RELATIVE PERCENT (BEAKER) (test 18 % kwij=653) MONOCYTES RELATIVE PERCENT (BEAKER) (test 8 % ajuk=523) EOSINOPHILS RELATIVE PERCENT (BEAKER) (test 1 % tpcj=428) BASOPHILS RELATIVE PERCENT (BEAKER) (test 0 % dufv=001) NEUTROPHILS ABSOLUTE COUNT (BEAKER) (test 6.46 K/ L 1.56-6.13 fxfa=022) LYMPHOCYTES ABSOLUTE COUNT (BEAKER) (test 1.60 K/ L 1.18-3.74 slls=996) MONOCYTES ABSOLUTE COUNT (BEAKER) (test 0.66 K/ L 0.24-0.36 bsfv=000) EOSINOPHILS ABSOLUTE COUNT (BEAKER) (test 0.04 K/ L 0.04-0.36 mnbj=679) BASOPHILS ABSOLUTE COUNT (BEAKER) (test 0.01 K/ L 0.01-0.08 rtod=664) IMMATURE GRANULOCYTES-RELATIVE PERCENT (BEAKER) 1 % 0-1 (test sdsm=2045) CBC W/PLT COUNT & AUTO [id number] 13:07:00 Test Item Value Reference Range Comments WHITE BLOOD CELL COUNT (BEAKER) (test kxqz=638) 11.5 K/ L 3.5-10.5 RED BLOOD CELL COUNT (BEAKER) (test dwoy=369) 4.05 M/ L 3.93-5.22 HEMOGLOBIN (BEAKER) (test fayx=768) 9.8 GM/DL 11.2-15.7 HEMATOCRIT (BEAKER) (test nylp=739) 33.1 % 34.1-44.9 MEAN CORPUSCULAR VOLUME (BEAKER) (test hkie=481) 81.7 fL 79.4-94.8 MEAN CORPUSCULAR HEMOGLOBIN (BEAKER) (test 24.2 pg 25.6-32.2 hgci=542) MEAN CORPUSCULAR HEMOGLOBIN CONC (BEAKER) (test 29.6 GM/DL 32.2-35.5 nlog=966) RED CELL DISTRIBUTION WIDTH (BEAKER) (test 19.3 % 11.7-14.4 qfqx=364) PLATELET COUNT (BEAKER) (test ibij=979) 354 K/CU MM 150-450 MEAN PLATELET VOLUME (BEAKER) (test imej=996) 10.3 fL 9.4-12.3 NUCLEATED RED BLOOD CELLS (BEAKER) (test 1 /100 WBC 0-0 fbar=215) NEUTROPHILS RELATIVE PERCENT (BEAKER) (test 86 % msog=505) LYMPHOCYTES RELATIVE PERCENT (BEAKER) (test 9 % wdip=413) MONOCYTES RELATIVE PERCENT (BEAKER) (test 3 % dibt=174) EOSINOPHILS RELATIVE PERCENT (BEAKER) (test 1 % itrm=327) BASOPHILS RELATIVE PERCENT (BEAKER) (test 0 % tieq=584) NEUTROPHILS ABSOLUTE COUNT (BEAKER) (test 9.84 K/ L 1.56-6.13 leej=841) LYMPHOCYTES ABSOLUTE COUNT (BEAKER) (test 1.00 K/ L 1.18-3.74 maqy=101) MONOCYTES ABSOLUTE COUNT (BEAKER) (test 0.37 K/ L 0.24-0.36 ivbh=316) EOSINOPHILS ABSOLUTE COUNT (BEAKER) (test 0.07 K/ L 0.04-0.36 cttn=053) BASOPHILS ABSOLUTE COUNT (BEAKER) (test 0.03 K/ L 0.01-0.08 qxas=020) IMMATURE GRANULOCYTES-RELATIVE PERCENT (BEAKER) 1 % 0-1 (test hikc=5799) PROTHROMBIN TIME/[id number] 09:14:00 Test Item Value Reference Range Comments PROTIME (BEAKER) (test wwzz=150) 13.5 seconds 11.9-14.2 INR (BEAKER) (test kvns=170) 1.1 <=5.9 Effective 12/21/2018: PT Reference Range ChangeNew: 11.9-14.2 Previous: 11.7- 14.7RECOMMENDED COUMADIN/WARFARIN INR THERAPY RANGESSTANDARD DOSE: 2.0-3.0 Includes: PROPHYLAXIS for venous thrombosis, systemic embolization; TREATMENT for venous thrombosis and/or pulmonary embolus.HIGH RISK: Target INR is2.5-3.5 for patients wiht mechanical heart valves.COMPREHENSIVE METABOLIC [id number] 07:17:00 Test Item Value Reference Range Comments TOTAL PROTEIN (BEAKER) 5.2 gm/dL 6.0-8.3 (test hipc=810) ALBUMIN (BEAKER) (test 3.1 g/dL 3.5-5.0 yhls=7515) ALKALINE PHOSPHATASE 62 U/L 40-150 (BEAKER) (test yfdm=089) BILIRUBIN TOTAL (BEAKER) 0.8 mg/dL 0.2-1.2 (test cmyg=277) SODIUM (BEAKER) (test 142 meq/L 136-145 rynt=834) POTASSIUM (BEAKER) (test 3.8 meq/L 3.5-5.1 xbvu=296) CHLORIDE (BEAKER) (test 111 meq/L 98-107 oazs=869) CO2 (BEAKER) (test 26 meq/L 22-29 pkji=222) BLOOD UREA NITROGEN 15 mg/dL 7-21 (BEAKER) (test zoop=934) CREATININE (BEAKER) (test 0.81 mg/dL 0.57-1.25 asua=526) GLUCOSE RANDOM (BEAKER) 86 mg/dL 70-105 (test mtnf=922) CALCIUM (BEAKER) (test 7.9 mg/dL 8.4-10.2 bvau=997) AST (SGOT) (BEAKER) (test 12 U/L 5-34 stug=144) ALT (SGPT) (BEAKER) (test 9 U/L 6-55 avqj=115) EGFR (BEAKER) (test 72 mL/min/1.73 sq m ESTIMATED GFR IS NOT wplq=3177) ACCURATE CREATININE CLEARANCE IN PREDICTING GLOMERULAR FILTRATION RATE. ESTIMATED GFR IS NOT APPLICABLE FOR DIALYSIS PATIENTS. CBC W/PLT COUNT & AUTO [id number] 07:07:00 Test Item Value Reference Range Comments WHITE BLOOD CELL COUNT (BEAKER) (test erwb=798) 9.1 K/ L 3.5-10.5 RED BLOOD CELL COUNT (BEAKER) (test trbt=173) 3.13 M/ L 3.93-5.22 HEMOGLOBIN (BEAKER) (test yjpi=633) 7.0 GM/DL 11.2-15.7 HEMATOCRIT (BEAKER) (test rkeg=333) 25.0 % 34.1-44.9 MEAN CORPUSCULAR VOLUME (BEAKER) (test amhf=273) 79.9 fL 79.4-94.8 MEAN CORPUSCULAR HEMOGLOBIN (BEAKER) (test 22.4 pg 25.6-32.2 gjpl=545) MEAN CORPUSCULAR HEMOGLOBIN CONC (BEAKER) (test 28.0 GM/DL 32.2-35.5 huul=190) RED CELL DISTRIBUTION WIDTH (BEAKER) (test 20.0 % 11.7-14.4 hknk=007) PLATELET COUNT (BEAKER) (test qbat=440) 343 K/CU MM 150-450 MEAN PLATELET VOLUME (BEAKER) (test olhe=274) 10.3 fL 9.4-12.3 NUCLEATED RED BLOOD CELLS (BEAKER) (test 1 /100 WBC 0-0 vbyu=192) NEUTROPHILS RELATIVE PERCENT (BEAKER) (test 63 % bfyq=880) LYMPHOCYTES RELATIVE PERCENT (BEAKER) (test 29 % wsxp=242) MONOCYTES RELATIVE PERCENT (BEAKER) (test 7 % kdbp=937) EOSINOPHILS RELATIVE PERCENT (BEAKER) (test 1 % cfwi=513) BASOPHILS RELATIVE PERCENT (BEAKER) (test 0 % yvqz=146) NEUTROPHILS ABSOLUTE COUNT (BEAKER) (test 5.75 K/ L 1.56-6.13 eqgi=628) LYMPHOCYTES ABSOLUTE COUNT (BEAKER) (test 2.61 K/ L 1.18-3.74 fxwy=652) MONOCYTES ABSOLUTE COUNT (BEAKER) (test 0.63 K/ L 0.24-0.36 vtfi=319) EOSINOPHILS ABSOLUTE COUNT (BEAKER) (test 0.07 K/ L 0.04-0.36 dqif=206) BASOPHILS ABSOLUTE COUNT (BEAKER) (test 0.01 K/ L 0.01-0.08 pdmb=602) IMMATURE GRANULOCYTES-RELATIVE PERCENT (BEAKER) 1 % 0-1 (test yoqd=9076) BASIC METABOLIC [id number] 01:47:00 Test Item Value Reference Range Comments SODIUM (BEAKER) (test 140 meq/L 136-145 goxc=786) POTASSIUM (BEAKER) (test 3.4 meq/L 3.5-5.1 qnbf=755) CHLORIDE (BEAKER) (test 108 meq/L 98-107 fydl=328) CO2 (BEAKER) (test 25 meq/L 22-29 wrmp=645) BLOOD UREA NITROGEN 17 mg/dL 7-21 (BEAKER) (test hcfr=588) CREATININE (BEAKER) (test 0.81 mg/dL 0.57-1.25 uabk=720) GLUCOSE RANDOM (BEAKER) 103 mg/dL 70-105 (test febn=191) CALCIUM (BEAKER) (test 7.9 mg/dL 8.4-10.2 zudm=719) EGFR (BEAKER) (test 72 mL/min/1.73 sq m ESTIMATED GFR IS NOT gljr=1321) ACCURATE CREATININE CLEARANCE IN PREDICTING GLOMERULAR FILTRATION RATE. ESTIMATED GFR IS NOT APPLICABLE FOR DIALYSIS PATIENTS. CBC W/PLT COUNT & AUTO [id number] 01:42:00 Test Item Value Reference Range Comments WHITE BLOOD CELL COUNT (BEAKER) (test pzfd=125) 11.3 K/ L 3.5-10.5 RED BLOOD CELL COUNT (BEAKER) (test qsrn=839) 2.34 M/ L 3.93-5.22 HEMOGLOBIN (BEAKER) (test hxgt=670) 4.7 GM/DL 11.2-15.7 HEMATOCRIT (BEAKER) (test ikaw=718) 17.5 % 34.1-44.9 MEAN CORPUSCULAR VOLUME (BEAKER) (test clnx=719) 74.8 fL 79.4-94.8 MEAN CORPUSCULAR HEMOGLOBIN (BEAKER) (test 20.1 pg 25.6-32.2 cyde=988) MEAN CORPUSCULAR HEMOGLOBIN CONC (BEAKER) (test 26.9 GM/DL 32.2-35.5 qrzq=996) RED CELL DISTRIBUTION WIDTH (BEAKER) (test 19.9 % 11.7-14.4 rcmp=034) PLATELET COUNT (BEAKER) (test kdjj=475) 374 K/CU MM 150-450 MEAN PLATELET VOLUME (BEAKER) (test gxvp=880) 10.4 fL 9.4-12.3 NUCLEATED RED BLOOD CELLS (BEAKER) (test 0 /100 WBC 0-0 giiw=741) NEUTROPHILS RELATIVE PERCENT (BEAKER) (test 70 % jqmk=877) LYMPHOCYTES RELATIVE PERCENT (BEAKER) (test 21 % ewnt=180) MONOCYTES RELATIVE PERCENT (BEAKER) (test 7 % pznu=739) EOSINOPHILS RELATIVE PERCENT (BEAKER) (test 0 % gwiw=426) BASOPHILS RELATIVE PERCENT (BEAKER) (test 0 % qnus=349) NEUTROPHILS ABSOLUTE COUNT (BEAKER) (test 7.91 K/ L 1.56-6.13 ddgv=637) LYMPHOCYTES ABSOLUTE COUNT (BEAKER) (test 2.39 K/ L 1.18-3.74 pigy=141) MONOCYTES ABSOLUTE COUNT (BEAKER) (test 0.83 K/ L 0.24-0.36 wugh=778) EOSINOPHILS ABSOLUTE COUNT (BEAKER) (test 0.03 K/ L 0.04-0.36 hkra=060) BASOPHILS ABSOLUTE COUNT (BEAKER) (test 0.01 K/ L 0.01-0.08 shin=845) IMMATURE GRANULOCYTES-RELATIVE PERCENT (BEAKER) 1 % 0-1 (test rmed=2413) Reference Lab [id number] 14:16:00 Test Item Value Reference Range Comments Reference Lab Testing (test Negative Negative Performed at: - [facility] code=HELIAG) [address] [id number] Director: Chu Jenkins MD, Phone: [phone] [id number] SURGICAL PATHOLOGY, LEVEL [id number] 13:33:[address] [address] Tel: Laboratory Printed : 01/10/18 1336 [facility] DAEMPathology Page: 1 Patient: CORNELIO RUFFIN Birthdate: 1955 Age/Sex: 62/F Spec#: [id number]: Tyrell Patino MD Specimen Date: 01/07/18 Received Date: 01/07/18 Specimen: POLYP, COLON CLINICAL DIAGNOSIS anemia PATHOLOGIC DIAGNOSIS Cecal polyp, polypectomy: - Tubular adenoma. Comment:There is no high grade dysplasia or malignancy present. Pathologist:Crystal Brumfield MD Entered by:01/10/18 - 1256 [email or web address].YGP PROCEDURES: [id number] GROSS DESCRIPTION A. POLYP,COLON CECUM The specimen is received in 10% formalin, and is labeled with the patient's name and "cecumcolon polyp." The specimen consists of two pink-pino soft tissue fragments measuring 1.2 x0.8 x 0.5 cm in aggregate. The largest fragment bisected. The specimen is entirelysubmitted in one cassette. Dictated by: Tina Kimball Entered by: 01/07/18 - 1311 [email or web address] Patient: CORNELIO RUFFIN ReLoc: T4-A MR#: [id number] CONTINUED ON NEXT PAGE Dis: 01/08/18ta: DIS IN [address] [address] Laboratory Printed: 01/10/[address] [place] [address] [facility] Patient : CORNELIO RUFFIN [id number] (Continued) GROSS DESCRIPTION (Continued) MICROSCOPIC DESCRIPTION A microscopic examination was performed to arrive at the diagnostic conclusion reported. Signed ( Electronically Signed) Crystal Brumfield MD 01/10/18 ------ ------ Patient: CORNELIO RUFFIN ReLoc: T4-A MR#: [id number] END OF REPORT Dis: 01/08/18ta: DIS [id number] 11:30:00 Test Item Value Reference Range Comments [...] code=GLU-T) Chemistry (test code=CA) 8.9 mg/dL 7.8-10.44 [id number] 06:56:00 Test Item Value Reference Range Comments Chemistry (test code=MG) 1.8 mg/dL 1.6-2.6 Comment Add to AM labsComment Add to AM [id number] 06:56:00 Test Item Value Reference Range Comments [...] Add to AM labsComment Add to AM [id number] 04:30:00 Test Item Value Reference Range Comments [...] 0.0-0.7 Hematology (test code=BASO#) 0.1 thou/uL 0.0-0.2 [id number] 04:24:00 Test Item Value Reference Range Comments [...] code=GLU-T) Chemistry (test code=CA) 8.9 mg/dL 7.8-10.44 [id number] 15:26:00 Test Item Value Reference Range Comments Hematology (test code=HGBT) 8.8 g/dL 12.0-16.0 Hematology (test code=HCTT) 29.5 % 36.0-47.0 [id number] SURGICAL PATHOLOGY, LEVEL [id number] 14:22:[address] [address] Tel: ( [phone] Laboratory Printed : 01/07/18 1423 [facility] [place] DAEMPathology Page: 1 Patient: CORNELIO RUFFIN Birthdate: 1955 Age/Sex: 62/F Spec#: [id number] [facility] [address]: Tyrell Patino MD Specimen Date: 01/06/18 [...] MD Entered by:01/07/18 - 1117 LAB.YGP PROCEDURES: 99515/2,52482/2, 08686 Patient: CORNELIO RUFFIN Re01/05/18Loc:T4-A MR#: [id number] CONTINUED ON NEXT PAGE Dis: Sta: ADM IN [address] [address] Tel: Laboratory Printed: 142[facility] Page: 2 --------- --- Patient: CORNELIO RUFFIN [id number] (Continued)------ ------ GROSS DESCRIPTION A. GASTRIC BIOPSY [...] by: Tina Kimball Entered by: 01/06/18 - 9019 [facility].YGP MICROSCOPIC DESCRIPTION A microscopic examination was performed to arrive at the diagnostic conclusion reported. Signed (Electronically Signed) Mike Green MD 01/07/18 Patient : CORNELIO RUFFIN Re01/05/18Loc: T4- A MR#: [id number] END OF REPORT Dis: Sta: ADMINChemistry - Benji [id number] 13:00:00 Test Item Value Reference Range Comments [...] NEW METHODOLOGY.Method: Enzyme Linked Fluorescent Immunoassay (Benji)References: [employer] Benji Package Inserts - Directions forSeptember,October 2016, Meet[email or web address]. Chemistry - Benji Tkcnzgu9224-89-56 13:00:00 Test Item Value Reference Range Comments Chemistry - Benji Testing 0.6 U/mL <4 Negative (test code=M2T) Chemistry - Benji Testing Less than 4.0 (test emzj=[id number]) U/mL=Negative 4.0 - 6.0 U/mL=Equivocal Greater than 6.0 U/mL=POSITIVE Chemistry - Benji Testing NEW METHOD Values obtained with (test code=ELIAVASNEW) different assay methods CANNOT be usedINTERCHANGEABLY.If in the course of monitoring a patient, the assay methodused for determining levels is changed, a newbaseline/serial monitoring may need to be performed.SEE REFERENCE RANGES FOR NEW METHODOLOGY.Method: Enzyme Linked Fluorescent Immunoassay (Benji)References: [employer] Benji Package Inserts - Directions , September,October 2016, [email or web address]. Chemistry - Benji Testing 0.6 U/mL <4 Negative (test code=M2T) Chemistry - Benji Testing Less than 4.0 (test rqgx=[id number]) U/mL=Negative 4.0 - 6.0 U/mL=Equivocal Greater than 6.0 U/mL=POSITIVE Chemistry - Benji Testing NEW METHOD Values obtained with (test code=ELIAVASNEW) different assay methods CANNOT be usedINTERCHANGEABLY.If in the course of monitoring a patient, the assay methodused for determining levels is changed, a newbaseline/serial monitoring may need to be performed.SEE REFERENCE RANGES FOR NEW METHODOLOGY.Method: Enzyme Linked Fluorescent Immunoassay (Benji)References: [employer] Benji Package Inserts - Directions september,October 2016, [employer]. Chemistry - Benji Ylzypqm5935-02-69 13:00:00 Test Item Value Reference Range Comments Chemistry - Benji Testing CENP, Chela-1, RNP70, (test code=ELIAANAINTERP) Scl-70, Longo, SSA/Ro, SSB/La IgGAntibodies: Less than 7.0 Benji U/mL=Negative 7.0 - 10.0 Benji U/mL=Equivocal Greater than 10.0 Benji U/mL=[id number] IgG: Less than 5.0 Benji U/mL=Negative 5.0 - 10.0 Benji U/mL=Equivocal Greater than 10.0 Benji U/mL=POSITIVE Chemistry - Benji [id number] 12:38:00 Test Item Value Reference Range Comments Chemistry - Benji Testing (test code=CELTTGIGA) 0.4 EliAU/mL <7 Negative Comment add onChemistry - Benji [id number] 12:38:00 Test Item Value Reference Range Comments Chemistry - Benji Testing (test code=CELTTGIGG) 0.6 EliAU/mL <7 Negative Comment add onChemistry - Benji [id number] 12:38:00 Test Item Value Reference Range Comments Chemistry - Benji Testing Less than (test aint=VLYWEFS469) 7.0 Benji U/mL=Negative 7.0 - 10.0 Benji U/mL=Equivocal Greater than 10.0 Benji U/mL=POSITIVE Comment add onChemistry - [id number] 12:33:00 Test Item Value Reference Range Comments Chemistry - Specials (test Non-Reactive NonReactive The panel screens for HIV-1 code=HIVT) p24 Antigen HIV-1/HIV-2Antibody. Tnltmfhyhh0348-63-71 10:27:00 Test Item Value Reference Range Comments Immunology (test code=SYPHABT) Nonreactive Nonreactive Mbrrcadbke6136-11-62 10:25:00 Test Item Value Reference Range Comments [...] (test code=BASO#) 0.0 thou/uL 0.0-0.2 Hematology (test code=UT) MODERATE=15-30 cells (100X) 0-5/hpf Hematology (test code=HYPO) MODERATE=16-30 cells (100X) 0-5/hpf Hematology (test code=POLY) SLIGHT=2-3 cells (100X) 0-2/hpf Hematology (test code=OV) MODERATE=6-15 cells (100X) 0-1/hpf Hematology (test code=PCOMMENT) Appears Adequate [id number] 10:07:00 Test Item Value Reference Range Comments [...] Stool SCREEN (3) (test code=OCCSTS1) N Comment wvbnrSiwczknuck0930-06-11 16:59:00 Test Item Value Reference Range Comments [...] (test code=MPV) 10.9 fL 7.4-10.4 Chemistry - Wnjvwscr6652-97-11 13:59:00 Test Item Value Reference Range Comments [...] Individual is considered immune to HBV infection. Ibyumzidnt8216-40-77 12:26:00 Test Item Value Reference Range Comments [...] Hematology (test code=MPV) 5.3 fL 7.4-10.4 Type Vjqvuf0453-50-83 11:29:00 Test Item Value Reference Range Comments Blood Type Rh (test code=BT) O POSITIVE Antibody Screen (test code=ABSC) NEGATIVE Received Blood Or Been w/in Past 90 Days? UNKNOWNReceived Blood Or Been w/in Past 90 Days? NOScheduled Surgery Date: NO SURGERYIs Surgery Date Greater than 7 days from now? NOPacked Cells - [id number] 11:29 :[id number] OP [facility] TFUSE [id number] 05:27:00 Test Item Value Reference Range Comments [...] 5-34 Chemistry (test code=ALT) 149 U/L 8-55 [id number] 05:18:00 Test Item Value Reference Range Comments [...] (test code=BASO#) 0.0 thou/uL 0.0-0.2 Chemistry - [id number] 00:59:00 Test Item Value Reference Range Comments Chemistry - Specials (test code=THEPAIGM) Non-Reactive NonReactive Chemistry - Specials (test code=THBSAG) Non-Reactive S/CO NonReactive Chemistry - Specials (test code=INTHBCM) Non-Reactive NonReactive Chemistry - Specials (test code=INTHEPC) Non-Reactive NonReactive Chemistry - BNP, HgbA1c, [id number] 19:45:00 Test Item Value Reference Range Comments Chemistry - BNP, HgbA1c, PTHi (test code=BNP) 100.4 pg/mL 0-100 Comment add [id number] 19:38:00 Test Item Value Reference Range Comments Chemistry (test 1.5 ng/mL 0-6.6 code=CKMBM-T) Chemistry (test Less than 0.010 < 0.028 code=TROPI-T) ng/mL Reference Range 0.00 - 0.028 ng/mL Negative 0.029 - 0.29 ng/mL Indeterminate Greater or Equal to 0.3 ng/mL Strongly suggests [place] Comment add onChemistry - [id number] 18:21:00 Test Item Value Reference Range Comments Chemistry - Specials (test code=LINDSAY) 24.27 ng/mL 10-291 [id number] 18:14:00 Test Item Value Reference Range Comments [...] code=PO) SLIGHT=6-15 cells (100X) 0-5/hpf Hematology (test code=UT) MODERATE=15-30 cells (100X) 0-5/hpf Hematology (test code=HYPO) SLIGHT=6-15 cells (100X) 0-5/hpf Hematology (test code=POLY) MODERATE=3-4 cells (100X) 0-2/hpf Hematology (test code=SC) SLIGHT=2-5 cells (100X) 0-1/hpf Hematology (test code=OV) SLIGHT=2-5 cells (100X) 0-1/hpf Hematology (test code=EL) SLIGHT=2-5 cells (100X) 0-1/hpf Hematology (test code=TE) SLIGHT=2-5 cells (100X) 0-1/hpf Hematology (test code=PCOMMENT) Appears Adequate [id number] 17:59:00 Test Item Value Reference Range Comments [...] 5-34 Chemistry (test code=ALT) 220 U/L 8-55 [id number] 17:59:00 Test Item Value Reference Range Comments Chemistry (test code=IRON) 15 ug/dL 50-170 [id number] 17:59:00 Test Item Value Reference Range Comments Chemistry (test code=TIBC) 386 mcg/dL 265-497 [id number] 17:50:00 Test Item Value Reference Range Comments Coagulation (test 13.3 SEC 12.0-14.7 code=PT-T) Coagulation (test 1.0 ATTENTION: READ code=INR) CAREFULLY -The recommended therapeutic ranges for oral anticoagulanttreatments are: Low Intensity: 1.5 - 2.0 Moderate Intensity: 2.0 - 3.0 High Intensity (1): 2.5 - 3.5 High Intensity (2): 3.0 - 4.0 CRITICAL: > 4.0 Anticoagulant? NONEMedical Necessity SUSPECT COAGULOPATHYAnticoagulant? NONEMedical Necessity: SUSP [id number] 17:50:00 Test Item Value Reference Range Comments Coagulation (test code=PTT) 23.4 SEC 22.9-36.1 Anticoagulant? NONEMedical Necessity SUSPECT COAGULOPATHYAnticoagulant? NONEMedical Necessity: SUSP COAG
[2019-03-04 14:40] LABS: Absolute Lymphocytes (CBC) 0.6 K/uL (0.7-4.9); Basophils % 0.2 % (0-1.3); Lymphocytes % 4.6 % (15.3-44.8); MPV 8.1 fL (7.6-11.3); RBC Red Blood Cell Count 3.43 M/uL (3.86-4.86)
[2019-03-04 15:04] LABS: ALT/SGPT 55 U/L (12-78); AST/SGOT 15 U/L (15-37); Albumin 3.5 g/dL (3.4-5.0); Alkaline Phosphatase 118 U/L (45-117); BUN Blood Urea Nitrogen 15 mg/dL (7-18); Bicarbonate 27 mmol/L (21-32); Bilirubin Direct 0.2 mg/dL (0-0.2); Bilirubin Total 0.8 mg/dL (0.2-1.0); Glucose Level 108 mg/dL (74-106); Magnesium 2.4 mg/dL (1.8-2.4); NT PRO-BNP 396 pg/mL (<125); Potassium 4.2 mmol/L (3.5-5.1); Protein, Total 6.9 g/dL (6.4-8.2); Sodium Level 139 mmol/L (136-145); Troponin (Emerg Dept Use Only) < 0.02 ng/mL (0.0-0.045)
--- NOTE | 2019-03-04 15:23 | RAD REPORT ---
EXAM DESCRIPTION: RAD - Chest Single View - 03/04/2019 2:50 pm CLINICAL HISTORY: weakness Chest pain. COMPARISON: <Comparisons> FINDINGS: Portable technique limits examination quality. The lungs are grossly clear. The heart is normal in size. No displaced fractures.Moderate hiatal dianna ia. IMPRESSION: No acute intrathoracic process suspected.
[2019-03-04 15:29] LABS: Protime INR 0.96
[2019-03-04 15:38] LABS: Platelet Estimate ADEQ; Urine White Blood Cell Casts OK
[2019-03-04 15:39] LABS: Anisocytosis 2+; Blood Morphology Comment NOTED (NOT SEEN)
[2019-03-04] MEDS ORDERED: NA CHLORIDE 0.9% 1,000 ML ONE (16:13)
[2019-03-04 16:31] LABS: RBC Red Blood Cell Count 3.22 M/uL (3.86-4.86)
[2019-03-04 16:51] LABS: Ferritin 4.8 ng/mL (8-388)
--- NOTE | 2019-03-04 17:06 | ER ---
Nurse's Notes [facility] Name: Irma Cain Age: 64 yrs Sex: Female : 1955 Arrival Date: 03/04/2019 Time: 13:43 Bed 6 Private MD: Diagnosis: Anemia;Tachycardia Presentation: 03/04 13:51 Presenting complaint: Patient states: I have been feeling progressively weaker over the la1 course of the last week. In the past I have been very anemic. Transition of care: patient was not received from another setting of care. Onset of symptoms was March 04, 2019. Risk Assessment: Do you want to hurt yourself or someone else? Patient reports no desire to harm self or others. Initial Sepsis Screen: Does the patient meet any 2 criteria? HR > 90 bpm. Does the patient have a suspected source of infection? No. Patient's initial sepsis screen is negative. Care prior to arrival: None. 13:51 Method Of Arrival: Wheelchair la1 13:51 Acuity: FELA 3 la1 Historical: - Allergies: 13:53 Aspirin; la1 13:53 Benadryl; la1 13:53 Neosporin (tmy-iaz-bsniq); la1 13:53 NSAIDS; la1 13:53 Talwin; la1 - PMHx: 13:53 Anemia; Anxiety; Asthma; basal cell carcinoma; Depression; Hypertension; Osteoporosis; la1 - Immunization history:: Adult Immunizations up to date. - Social history:: Smoking status: Patient/guardian denies using tobacco. - Ebola Screening: : No symptoms or risks identified at this time. Screenin:30 Abuse screen: Denies threats or abuse. Nutritional screening: No deficits noted. aa5 Tuberculosis screening: No symptoms or risk factors identified. Fall Risk IV access (20 points). Total Rogers Fall Scale indicates No Risk (0-24 pts). Assessment: 14:15 General: Appears comfortable, Behavior is calm, cooperative. Pain: Denies pain. 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 Speech is normal, Facial symmetry appears normal, Pupils are PERRLA, Reports generalized weakness x 1 week . Cardiovascular: Heart tones S1 S2 present Rhythm is regular. Respiratory: Reports shortness of breath on exertion Airway is patent Respiratory effort is even, unlabored, Respiratory pattern is regular, symmetrical, Breath sounds are clear bilaterally. GI: Abdomen is round non-distended, Bowel sounds present X 4 quads. Abd is soft and non tender X 4 quads. Patient currently denies abdominal pain, bloody stool, diarrhea, nausea, vomiting. : No signs and/or symptoms were reported regarding the genitourinary system. EENT: No signs and/or symptoms were reported regarding the EENT system. Derm: Skin is dry, Skin is pale, Skin temperature is warm. Musculoskeletal: Range of motion: intact in all extremities. 14:15 Reassessment: Pt states "I just had a bleeding ulcer about a month and a half ago and aa5 they cauterized it at [facility]". 15:00 Reassessment: Pt resting in bed with eyes closed, equal unlabored respirations. . aa5 16:20 Reassessment: Pt lying down in bed. Pt awakens easy to verbal stimuli, pt is A\\T\\O x 4, aa5 equal unlabored, skin is pale/warm/dry. Add-on blood drawn and sent to lab. . 16:55 Reassessment: Pt resting in bed with eyes closed, equal unlabored respirations. . aa5 18:05 Reassessment: Report given to [facility] . aa5 18:10 Reassessment: Pt assisted to restroom via wheelchair, pt voided once . aa5 18:10 Reassessment: Awaiting EMS for transfer, pt notified of wait time. . Neuro: Level of aa5 Consciousness is awake, alert, obeys commands, Oriented to person, place, time, situation. Respiratory: Airway is patent Respiratory effort is even, unlabored, Respiratory pattern is regular, symmetrical. Derm: Skin is dry, Skin is pale, Skin temperature is warm. 18:45 Neuro: Level of Consciousness is awake, alert, obeys commands, Oriented to person, aa5 place, time, situation. Respiratory: Airway is patent Respiratory effort is even, unlabored, Respiratory pattern is regular, symmetrical. Derm: Skin is dry, Skin is pale, Skin temperature is warm. 18:45 Cardiovascular: Rhythm is sinus tachycardia. aa5 Vital Signs: 13:51 BP 150 / 56; Pulse 113; Resp 16; Temp 97.4; Pulse Ox 98% on R/A; la1 14:20 Pulse 108; Resp 16 S; Pulse Ox 98% on R/A; aa5 15:00 BP 134 / 41; Pulse 105; Resp 16 S; Pulse Ox 99% ; aa5 16:20 BP 141 / 57; Pulse 108; Resp 16 S; Pulse Ox 99% on R/A; aa5 16:49 BP 135 / 52 Supine; Pulse 92; jb1 16:49 BP 134 / 51 Sitting; Pulse 102; jb1 16:49 BP 141 / 60 Standing; Pulse 101; jb1 17:15 BP 140 / 61; Pulse 105; Resp 18 S; Pulse Ox 98% on R/A; Pain 0/10; aa5 18:15 BP 140 / 64; Pulse 100; Resp 18 S; Temp 97.8(O); Pulse Ox 97% on R/A; Pain 0/10; aa5 ED Course: 13:43 Patient arrived in ED. as 13:51 Arm band placed on left wrist. la1 13:52 Triage completed. la1 13:55 Miroslava Augustin, RN is Primary Nurse. aa5 13:57 Mike Bautista PA is PHCP. jmm 13:57 Moi Berrios MD is Attending Physician. jmm 14:15 Patient has correct armband on for positive identification. Placed in gown. Bed in low aa5 position. Call light in reach. Side rails up X2. clinical laboratory medical director on. Pulse ox on. NIBP on. 14:22 Initial lab(s) drawn, by md, sent to lab. Inserted saline lock: 20 gauge in right aa5 forearm, using aseptic technique. Blood collected. 14:50 XRAY Chest (1 view) In Process Unspecified. EDMS 15:10 EKG done, by ED staff, reviewed by Mike MORLEY. jb1 16:11 Urine collected: clean catch specimen, clear, evita colored. jb1 18:45 No provider procedures requiring assistance completed. Patient transferred, IV remains aa5 in place. Administered Medications: 16:20 Drug: NS 0.9% 1000 ml Route: IV; Rate: 1 bolus; Site: right forearm; aa5 17:20 Follow up: IV Status: Completed infusion; IV Intake: 1000ml aa5 Intake: 17:20 IV: 1000ml; Total: 1000ml. aa5 Outcome: 17:04 ER care complete, transfer ordered by . valarie 18:45 Transferred by ground EMS to [facility], Transfer form completed. aa5 X-rays sent w/ patient. Note: Report given to [facility] 18:45 Condition: stable 18:45 Instructed on the need for transfer, Demonstrated understanding of instructions. 18:50 Patient left the ED. aa5 Signatures: Dispatcher [employer] EDMS Duglas Austin jb1 Mike Bautista PA PA Mattie Palmer Audri, RN RN aa5 Alek Esparza, RN RN la1 Corrections: (The following items were deleted from the chart) 17:00 14:15 Respiratory: Reports shortness of breath on exertion Airway is patent Respiratory aa5 effort is even, unlabored, Respiratory pattern is regular, symmetrical, aa5 19:13 18:58 Patient left the ED. aa5 aa5
--- NOTE | 2019-03-04 17:06 | EDPHYS ---
Physician Documentation [facility] [place], [place] Name: Irma Cain Age: 64 yrs Sex: Female : 1955 Arrival Date: 03/04/2019 Time: 13:43 Bed 6 Private MD: ED Physician Moi Berrios HPI: 03/04 14:05 This 64 yrs old Female presents to ER via Wheelchair with complaints of jmm General Weakness. 14:05 weakness. Onset: The symptoms/episode began/occurred gradually, 1 week(s) ago. The jmm patient has experienced similar episodes in the past. This is a 64 year old female with a history of anxiety, asthma, depression, that presents to the ED with complaints of generalized weakness for the past week. Patient has a history of bleeding ulcer and anemia but currently denies dark stools. Denies chest pain, denies shortness of breath. . Historical: - Allergies: 13:53 Aspirin; la1 13:53 Benadryl; la1 13:53 Neosporin (pav-rmr-mewkw); la1 13:53 NSAIDS; la1 13:53 Talwin; la1 - PMHx: 13:53 Anemia; Anxiety; Asthma; basal cell carcinoma; Depression; Hypertension; Osteoporosis; la1 - Immunization history:: Adult Immunizations up to date. - Social history:: Smoking status: Patient/guardian denies using tobacco. - Ebola Screening: : No symptoms or risks identified at this time. ROS: 14:05 Cardiovascular: Negative for chest pain, palpitations, and edema, Respiratory: Negative jm for shortness of breath, cough, wheezing, and pleuritic chest pain. 14:05 Constitutional: Positive for fatigue. 14:05 Neuro: Positive for weakness. 14:05 All other systems are negative. Exam: 14:05 Constitutional: This is a well developed, well nourished patient who is awake, alert, jmm and in no acute distress. Head/Face: atraumatic. Eyes: EOMI, no conjunctival erythema appreciated ENT: Moist Mucus Membranes Neck: Trachea midline, Supple Chest/axilla: Normal chest wall appearance and motion. 14:05 Respiratory: Normal respirations, no respiratory distress appreciated Abdomen/GI: Non distended, soft Back: Normal ROM Skin: General appearance color normal MS/ Extremity: Moves all extremities, no obvious deformities appreciated, no edema noted to the lower extremities Neuro: Awake and alert, normal gait Psych: Behavior is normal, Mood is normal, Patient is cooperative and pleasant 14:05 Cardiovascular: Rate: normal, Rhythm: regular, Pulses: no pulse deficits are appreciated. 14:53 ECG was reviewed by the Attending Physician. [facility] Vital Signs: 13:51 BP 150 / 56; Pulse 113; Resp 16; Temp 97.4; Pulse Ox 98% on R/A; la1 14:20 Pulse 108; Resp 16 S; Pulse Ox 98% on R/A; aa5 15:00 BP 134 / 41; Pulse 105; Resp 16 S; Pulse Ox 99% ; aa5 16:20 BP 141 / 57; Pulse 108; Resp 16 S; Pulse Ox 99% on R/A; aa5 16:49 BP 135 / 52 Supine; Pulse 92; jb1 16:49 BP 134 / 51 Sitting; Pulse 102; jb1 16:49 BP 141 / 60 Standing; Pulse 101; jb1 17:15 BP 140 / 61; Pulse 105; Resp 18 S; Pulse Ox 98% on R/A; Pain 0/10; aa5 18:15 BP 140 / 64; Pulse 100; Resp 18 S; Temp 97.8(O); Pulse Ox 97% on R/A; Pain 0/10; aa5 MDM: 14:05 Patient medically screened. [facility] 16:53 Data reviewed: vital signs, nurses notes. ED course: I discussed the patient with TONIE sheppard whom accepted. . 17:03 Counseling: I had a detailed discussion with the patient and/or guardian regarding: the [facility] historical points, exam findings, and any diagnostic results supporting the discharge/admit diagnosis, lab results, radiology results, the need to transfer to another facility. ED course: I discussed the patient with Dr. Denis whom accepted admission. . 03/04 14:08 Order name: Basic Metabolic Panel [facility] 03/04 14:08 Order name: CBC with Diff [facility] 03/04 14:08 Order name: LFT's [facility] 03/04 14:08 Order name: Magnesium [facility] 03/04 14:08 Order name: NT PRO-BNP; Complete Time: 15:17 [facility] 03/04 14:08 Order name: PT-INR; Complete Time: 15:32 [facility] 03/04 14:08 Order name: Troponin (emerg Dept Use Only); Complete Time: 15:17 jmm 03/04 14:08 Order name: Type And Screen; Complete Time: 15:35 jmm 03/04 14:11 Order name: Basic Metabolic Panel; Complete Time: 15:17 EDMS 03/04 14:11 Order name: CBC with Automated Diff; Complete Time: 15:51 EDMS 03/04 14:11 Order name: Liver (Hepatic) Function; Complete Time: 15:17 EDMS 03/04 14:11 Order name: Magnesium; Complete Time: 15:17 EDMS 03/04 14:29 Order name: Guiac em1 03/04 15:07 Order name: CBC Smear Scan; Complete Time: 15:51 EDMS 03/04 14:08 Order name: XRAY Chest (1 view); Complete Time: 15:25 jmm 03/04 14:08 Order name: EKG; Complete Time: 14:12 jmm 03/04 14:08 Order name: Cardiac monitoring; Complete Time: 14:30 jmm 03/04 14:08 Order name: EKG - Nurse/Tech; Complete Time: 14:45 jmm 03/04 14:08 Order name: IV Saline Lock; Complete Time: 14:30 jmm 03/04 14:08 Order name: Labs collected and sent; Complete Time: 14:30 jmm 03/04 14:08 Order name: O2 Per Protocol; Complete Time: 14:30 jmm 03/04 14:08 Order name: O2 Sat Monitoring; Complete Time: 14:30 jmm 03/04 14:08 Order name: Urine Dipstick-Ancillary (obtain specimen); Complete Time: 16:06 jmm 03/04 16:10 Order name: Retic Count; Complete Time: 16:50 jmm 03/04 16:10 Order name: TIBC; Complete Time: 16:56 jmm 03/04 16:10 Order name: Ferritin; Complete Time: 16:56 jmm 03/04 16:10 Order name: Urine Dipstick--Ancillary (enter results) em1 03/04 16:34 Order name: Orthostatics; Complete Time: 16:50 jmm EC:53 Rate is 101 beats/min. Rhythm is regular. QRS [place] is Normal. NV interval is normal. jmm QRS interval is normal. QT interval is normal. No Q waves. T waves are Normal. No ST changes noted. Reviewed by me. Administered Medications: 16:20 Drug: NS 0.9% 1000 ml Route: IV; Rate: 1 bolus; Site: right forearm; aa5 17:20 Follow up: IV Status: Completed infusion; IV Intake: 1000ml aa5 Disposition: 03/04/19 17:04 Transfer ordered to [facility]. Diagnosis are Anemia, Tachycardia. - Reason for transfer: Higher level of care. - Accepting physician is Adeel. - Condition is Stable. - Problem is new. - Symptoms are unchanged. Addendum: 03/06/2019 10:00 Co-signature as Attending Physician, Moi Berrios MD I agree with the assessment and c pemberton plan of care. Signatures: Dispatcher [employer] EDMoi Boggs MD MD cha Mickail, Joel, PA PA jmm Calderon, Audri, RN RN aa5 Alek Esparza RN RN la1 Corrections: (The following items were deleted from the chart) 03/04 18:58 17:04 03/04/2019 17:04 Transfer ordered to [facility]. Diagnosis is aa5 Anemia; Tachycardia. Reason for transfer: Higher level of care. Accepting physician is Adeel. Condition is Stable. Problem is new. Symptoms are unchanged. valarie
[2019-03-04 19:34] VITALS: BP 140/64; TEMP 97.8; O2SAT 97
[2019-03-04 20:27] LABS: Urine Blood NEGATIVE (NEG); Urine Glucose NEGATIVE (NEG); Urine Protein NEGATIVE (NEG)
--- NOTE | 2019-03-05 10:24 | EKG ---
Test Date: 2019-03-04 Test Time: 14:52:51 Steel Wheel Engraver: RODRIGO MEASUREMENT RESULTS: Intervals: Rate: 101 TN: 130 QRSD: 62 QT: 330 QTc: 427 [place]: P: 79 TN: 130 QRS: 68 T: 60 INTERPRETIVE STATEMENTS: Sinus tachycardia Otherwise normal ECG Compared to ECG 01/15/2019 17:48:48 No significant changes Electronically Signed On 03-05-19 10:23:07 CDT by Pravin Solis
== END 2019-03-04 18:58 | disposition short-term general hospital (02) ==
LOC: ER 13:42
DX: D64.9 Anemia, unspecified (principal); R00.0 Tachycardia, unspecified; F41.9 Anxiety disorder, unspecified; J45.909 Unspecified asthma, uncomplicated; F32.9 Major depressive disorder, single episode, unspecified; Z88.6 Allergy status to analgesic agent; Z88.8 Allergy status to other drugs, medicaments and biological substances
CPT/HCPCS: 93005; 85025; 80048; 36415; 86900; 83735; 86850; 85610; 85044; 86901; 80076; 81003; 84484; 82728; 83540; 83880; 84466; 71045; 96360; 99285; J7030

== ENCOUNTER 2019-05-04 05:02 | Emergency (ER) | payer OTHER ==
[2019-05-04] MEDS ORDERED: IPRATROPIUM BROM 0.5MG/2.5ML ONE (05:05)
[2019-05-04] MEDS ORDERED: LEVALBUTEROL 1.25 MG/3 ML NEB ONE (05:05)
[2019-05-04] MEDS ORDERED: METHYLPREDNISOLONE 125 MG INJ ONE (05:05)
[2019-05-04 05:51] LABS: Basophils % 0.3 % (0-1.3); Hematocrit 29.8 % (36.0-45.0); Lymphocytes % 32.2 % (15.3-44.8); MPV 7.9 fL (7.6-11.3); RBC Red Blood Cell Count 3.95 M/uL (3.86-4.86)
[2019-05-04 05:53] LABS: ALT/SGPT 17 U/L (12-78); AST/SGOT 17 U/L (15-37); Albumin 3.6 g/dL (3.4-5.0); Alkaline Phosphatase 87 U/L (45-117); BUN Blood Urea Nitrogen 13 mg/dL (7-18); Bicarbonate 27 mmol/L (21-32); Bilirubin Total 0.4 mg/dL (0.2-1.0); Glucose Level 103 mg/dL (74-106); NT PRO-BNP 601 pg/mL (<125); Potassium 3.1 mmol/L (3.5-5.1); Protein, Total 6.8 g/dL (6.4-8.2); Sodium Level 143 mmol/L (136-145); Troponin (Emerg Dept Use Only) < 0.02 ng/mL (0.0-0.045)
--- NOTE | 2019-05-04 06:08 | ER ---
Nurse's Notes [facility] Name: Irma Cain Age: 64 yrs Sex: Female : 1955 Arrival Date: 05/04/2019 Time: 05:03 Bed 7 Private MD: Diagnosis: Moderate persistent asthma with (acute) exacerbation Presentation: 05/04 05:06 Presenting complaint: Patient states: she ran out of her prednisone 2 days ago and aa1 began having an asthma flare up this evening. Upon EMS arrival pt RA O2 sat of 84"s with HR 130"s and RR 40's. After A\\T\\A tx x 1 pt reports significant improvement in symptoms. Transition of care: patient was not received from another setting of care. Onset of symptoms was May 04, 2019. Risk Assessment: Do you want to hurt yourself or someone else? Patient reports no desire to harm self or others. Initial Sepsis Screen: Does the patient meet any 2 criteria? RR > 20 per min. HR > 90 bpm. Yes Does the patient have a suspected source of infection? No. Patient's initial sepsis screen is negative. Care prior to arrival: Medication(s) given: Albuterol Neb x 1, Atrovent Neb x 1, Med neb given. Oxygen administered. via a nebulizer mask. 05:06 Method Of Arrival: EMS: [facility] aa1 05:06 Acuity: FELA 2 aa1 Triage Assessment: 05:09 General: Appears in no apparent distress. comfortable, Behavior is calm, cooperative, aa1 appropriate for age. Pain: Denies pain. Historical: - Allergies: 05:09 Aspirin; aa1 05:09 Benadryl; aa1 05:09 Neosporin (ouu-ogv-kkkwe); aa1 05:09 NSAIDS; aa1 05:09 Talwin; aa1 - Home Meds: 05:09 Adderall XR 20 mg Oral cp24 1 cap 2 times daily [Active]; Albuterol Inhl [Active]; aa1 alprazolam 1 mg Oral tab 1 tab four times a day [Active]; Breo Ellipta 100-25 mcg/dose inhalation dsdv [Active]; Daliresp 500 mcg Oral tab 1 tab once daily [Active]; Deplin (algal oil) Oral [Active]; Effexor XR 150 mg Oral cp24 2 cap once daily [Active]; omeprazole 40 mg Oral cpDR 1 cap once daily [Active]; prednisone 10 mg Oral tab 1 tab 2 times per day [Active]; Ventolin Rotahaler/Rotacaps Inhl [Active]; - PMHx: 05:09 Anemia; Anxiety; Asthma; basal cell carcinoma; Depression; Hypertension; Osteoporosis; aa1 - Immunization history:: Flu vaccine is up to date. - Social history:: Smoking status: Patient/guardian denies using tobacco. - Ebola Screening: : Patient denies exposure to infectious person Patient denies travel to an Ebola-affected area in the 21 days before illness onset. Screenin:19 Abuse screen: Denies threats or abuse. Denies injuries from another. Nutritional ak1 screening: No deficits noted. Tuberculosis screening: No symptoms or risk factors identified. Fall Risk None identified. Assessment: 05:17 General: Appears uncomfortable, Behavior is calm, cooperative. Pain: Denies pain. ak1 Neuro: Level of Consciousness is awake, alert, obeys commands, Oriented to person, place, time, situation, Moves all extremities. Gait is steady. Cardiovascular: No deficits noted. Respiratory: Airway is patent Respiratory effort is labored, with nasal flaring, using tripod position, Breath sounds with wheezes bilaterally. Onset: The symptoms/episode began/occurred just prior to arrival. GI: No signs and/or symptoms were reported involving the gastrointestinal system. : No signs and/or symptoms were reported regarding the genitourinary system. EENT: No signs and/or symptoms were reported regarding the EENT system. Derm: No signs and/or symptoms reported regarding the dermatologic system. Musculoskeletal: No signs and/or symptoms reported regarding the musculoskeletal system. 05:22 Reassessment: Patient appears in no apparent distress at this time. Patient and/or ak1 family updated on plan of care and expected duration. Pain level reassessed. pt given a fan as request for comfort. Patient states feeling better. Patient states symptoms have improved. 05:51 Reassessment: pt more comfortable at this time. pt resting. ak1 06:14 Reassessment: pt ride unavailable until 30. pt will remain in ER7 until ride comes, ak1 resting. 07:10 Reassessment: Pt ambulatory to restroom, pt tolerated well. . aa5 07:20 Reassessment: Patient is alert, oriented x 3, equal unlabored respirations, skin aa5 warm/dry/pink. Patient states feeling better. Vital Signs: 05:09 BP 199 / 77; Pulse 127; Resp 26; Temp 98.3; Pulse Ox 95% on R/A; Weight 53.52 kg; aa1 Height 5 ft. 0 in. (152.40 cm); Pain 0/10; 05:18 Pulse 97; Resp 21; Pulse Ox 100% on 100% Nebulizer Mask; ak1 05:22 BP 175 / 75; Pulse 93; Resp 17; Pulse Ox 100% on 100% Nebulizer Mask; ak1 06:01 BP 172 / 64; Pulse 94; Resp 15; Temp 98.2; Pulse Ox 97% on R/A; Pain 0/10; ak1 07:20 BP 170 / 71; Pulse 92; Resp 18 S; Temp 98.0(TE); Pulse Ox 97% on R/A; Pain 0/10; aa5 05:09 Body Mass Index 23.05 (53.52 kg, 152.40 cm) aa1 ED Course: 05:03 Patient arrived in ED. ds1 05:08 Triage completed. aa1 05:09 Arm band placed on right wrist. Patient placed in an exam room, on a stretcher. aa1 05:16 Belkis Michael, RN is Primary Nurse. ak1 05:16 Titi Hahn MD is Attending Physician. ps1 05:17 Inserted saline lock: 24 gauge in right hand, using aseptic technique. Blood collected. ak1 05:19 Patient has correct armband on for positive identification. Placed in gown. Bed in low ak1 position. Call light in reach. Side rails up X 1. monitoring tech on. Pulse ox on. NIBP on. 05:23 Initial lab(s) drawn, by me, sent to lab. ak1 05:38 CXR XRAY In Process Unspecified. EDMS 07:29 No provider procedures requiring assistance completed. IV discontinued, intact, aa5 bleeding controlled, No redness/swelling at site. Pressure dressing applied. Administered Medications: 05:16 Drug: Xopenex (3) 1.25 mg Route: Inhalation; ak1 05:52 Follow up: Response: No adverse reaction; Wheezing diminished jb4 05:16 Drug: AtroVENT Aerosol 0.5 mg Route: Inhalation; ak1 05:52 Follow up: Response: No adverse reaction; Wheezing diminished jb4 05:17 Drug: SOLU-Medrol 125 mg Route: IVP; Site: right hand; ak1 05:23 Follow up: Response: No adverse reaction ak1 Outcome: 06:07 Discharge ordered by . ps1 06:15 Condition: improved ak1 07:30 Discharged to home via wheelchair, with friend. aa5 07:30 Condition: improved 07:30 Discharge instructions given to patient, Instructed on discharge instructions, follow up and referral plans. Demonstrated understanding of instructions, follow-up care. 07:31 Patient left the ED. aa5 Signatures: Dispatcher [employer] EDMS Nancy Brito RN RN aa1 Anahi Arreola ds1 Miroslava Augustin RN RN aa5 Belkis Michael RN RN ak1 Nayan Bustillos RN RN jb4 Titi Hahn MD MD ps1
--- NOTE | 2019-05-04 06:08 | EDPHYS ---
Physician Documentation [facility] Name: Irma Cain Age: 64 yrs Sex: Female : 1955 Arrival Date: 05/04/2019 Time: 05:03 Bed 7 Private MD: ED Physician Titi Hahn HPI: 05/04 05:19 This 64 yrs old Female presents to ER via EMS with complaints of Asthma ps1 exacerbation. 05:19 Patient BIBEMS 2/2 respiratory distress. Patient has history of severe asthma. Out of ps1 prednisone for last 2 days. Has taken it for 20 years. Uses nebulizers at home. Worse since temperature change with weather. Additionally has a history of anemia requiring blood transfusions. Symptoms improved after treatment by EMS. . Historical: - Allergies: 05:09 Aspirin; aa1 05:09 Benadryl; aa1 05:09 Neosporin ([id number]); aa1 05:09 NSAIDS; aa1 05:09 Talwin; aa1 - Home Meds: 05:09 Adderall XR 20 mg Oral cp24 1 cap 2 times daily [Active]; Albuterol Inhl [Active]; aa1 alprazolam 1 mg Oral tab 1 tab four times a day [Active]; Breo Ellipta 100-25 mcg/dose inhalation dsdv [Active]; Daliresp 500 mcg Oral tab 1 tab once daily [Active]; Deplin (algal oil) Oral [Active]; Effexor XR 150 mg Oral cp24 2 cap once daily [Active]; omeprazole 40 mg Oral cpDR 1 cap once daily [Active]; prednisone 10 mg Oral tab 1 tab 2 times per day [Active]; Ventolin Rotahaler/Rotacaps Inhl [Active]; - PMHx: 05:09 Anemia; Anxiety; Asthma; basal cell carcinoma; Depression; Hypertension; Osteoporosis; aa1 - Immunization history:: Flu vaccine is up to date. - Social history:: Smoking status: Patient/guardian denies using tobacco. - Ebola Screening: : Patient denies exposure to infectious person Patient denies travel to an Ebola-affected area in the 21 days before illness onset. ROS: 05:19 Constitutional: Negative for fever, chills, and weight loss, Eyes: Negative for injury, ps1 pain, redness, and discharge, ENT: Negative for injury, pain, and discharge, Cardiovascular: Negative for chest pain, palpitations, and edema, Abdomen/GI: Negative for abdominal pain, nausea, vomiting, diarrhea, and constipation, MS/Extremity: Negative for injury and deformity, Skin: Negative for injury, rash, and discoloration, Neuro: Negative for headache, weakness, numbness, tingling, and seizure. 05:19 Respiratory: Positive for shortness of breath, wheezing, expiratory. Exam: 05:19 Constitutional: This is a well developed, well nourished patient who is awake, alert, ps1 and in no acute distress. Head/Face: Normocephalic, atraumatic. Eyes: Pupils equal round and reactive to light, extra-ocular motions intact. Lids and lashes normal. Conjunctiva and sclera are non-icteric and not injected. ENT: Nares patent. No nasal discharge, no septal abnormalities noted. Tympanic membranes are normal and external auditory canals are clear. Oropharynx with no redness, swelling, or masses, exudates, or evidence of obstruction, uvula midline. Mucous membranes moist. Abdomen/GI: Soft, non-tender, with normal bowel sounds. No distension or tympany. No guarding or rebound. No evidence of tenderness throughout. 05:19 Cardiovascular: Rate: tachycardic, Rhythm: regular, Pulses: no pulse deficits are appreciated. 05:19 Respiratory: mild respiratory distress is noted, Respirations: intercostal retractions, are absent, Breath sounds: decreased breath sounds, wheezing: Vital Signs: 05:09 BP 199 / 77; Pulse 127; Resp 26; Temp 98.3; Pulse Ox 95% on R/A; Weight 53.52 kg; aa1 Height 5 ft. 0 in. (152.40 cm); Pain 0/10; 05:18 Pulse 97; Resp 21; Pulse Ox 100% on 100% Nebulizer Mask; ak1 05:22 BP 175 / 75; Pulse 93; Resp 17; Pulse Ox 100% on 100% Nebulizer Mask; ak1 06:01 BP 172 / 64; Pulse 94; Resp 15; Temp 98.2; Pulse Ox 97% on R/A; Pain 0/10; ak1 07:20 BP 170 / 71; Pulse 92; Resp 18 S; Temp 98.0(TE); Pulse Ox 97% on R/A; Pain 0/10; aa5 05:09 Body Mass Index 23.05 (53.52 kg, 152.40 cm) aa1 MDM: 05:32 Patient medically screened. ps1 06:03 Data reviewed: vital signs, nurses notes, lab test result(s), radiologic studies, and ps1 as a result, I will discharge patient. Counseling: I had a detailed discussion with the patient and/or guardian regarding: the historical points, exam findings, and any diagnostic results supporting the discharge/admit diagnosis, lab results, radiology results, the need for outpatient follow up, to return to the emergency department if symptoms worsen or persist or if there are any questions or concerns that arise at home. ED course: patient is markedly improved. No wheezing. Sleeping in bed. At baseline. Good air movement. Stable for discharge and vitals improving. . 05/04 05:18 Order name: CBC with Diff ps1 05/04 05:18 Order name: CMP; Complete Time: 05:54 ps1 05/04 05:18 Order name: CXR XRAY ps1 05/04 05:18 Order name: Troponin (emerg Dept Use Only); Complete Time: 05:54 ps1 05/04 05:18 Order name: BNP; Complete Time: 05:54 ps1 Administered Medications: 05:16 Drug: Xopenex (3) 1.25 mg Route: Inhalation; ak1 05:52 Follow up: Response: No adverse reaction; Wheezing diminished jb4 05:16 Drug: AtroVENT Aerosol 0.5 mg Route: Inhalation; ak1 05:52 Follow up: Response: No adverse reaction; Wheezing diminished jb4 05:17 Drug: SOLU-Medrol 125 mg Route: IVP; Site: right hand; ak1 05:23 Follow up: Response: No adverse reaction ak1 Disposition: 05/04/19 06:07 Discharged to Home. Impression: Moderate persistent asthma with (acute) exacerbation. - Condition is Stable. - Discharge Instructions: Asthma, Acute Bronchospasm. - Medication Reconciliation Form, Thank You Letter, Antibiotic Education, Prescription Opioid Use form. - Follow up: Emergency Department; When: As needed; Reason: Fever > 102 F, Trouble breathing, Worsening of condition. Follow up: Private Physician; When: Tomorrow; Reason: Further diagnostic work-up, Recheck today's complaints, Continuance of care, Re-evaluation by your physician. - Problem is an acute exacerbation. - Symptoms are resolved. Signatures: Dispatcher [employer] EDMS Nancy Brito RN RN aa1 Miroslava Augustin RN RN aa5 Belkis Michael RN RN ak1 Titi Hahn MD MD ps1 Nayan Bustillos RN jb4 Corrections: (The following items were deleted from the chart) 07:31 06:07 05/04/2019 06:07 Discharged to Home. Impression: Moderate persistent asthma with aa5 (acute) exacerbation. Condition is Stable. Forms are Medication Reconciliation Form, Thank You Letter, Antibiotic Education, Prescription Opioid Use. Follow up: Emergency Department; When: As needed; Reason: Fever > 102 F, Trouble breathing, Worsening of condition. Follow up: Private Physician; When: Tomorrow; Reason: Further diagnostic work-up, Recheck today's complaints, Continuance of care, Re-evaluation by your physician. Problem is an acute exacerbation. Symptoms are resolved. ps1
[2019-05-04 07:49] VITALS: O2SAT 97
[2019-05-04 07:50] VITALS: BP 170/71; TEMP 98
--- NOTE | 2019-05-04 08:25 | RAD REPORT ---
EXAM DESCRIPTION: RAD - Chest Single View - 05/04/2019 5:38 am CLINICAL HISTORY: COUGH Chest pain. COMPARISON: Chest Single View dated 03/04/2019; Chest Single View dated 01/15/2019; Chest Single View dated 09/03/2018; Chest Single View dated 07/08/2018 FINDINGS: Portable technique limits examination quality. The lungs are grossly clear. The heart is normal in size. No displaced fractures.Moderate axial hiata l hernia. IMPRESSION: Moderate axial hiatal hernia.
[2019-05-04 11:47] LABS: Anisocytosis 1+; Blood Morphology Comment NOTED (NOT SEEN); Platelet Estimate ADEQ; Urine White Blood Cell Casts OK
[2019-05-04 11:48] LABS: Hypochromasia 1+; Ovalocytes 1+; Poikilocytosis 1+; Stomatocytes 1+
== END 2019-05-04 07:31 | disposition home or self-care (01) ==
LOC: ER 05:02
DX: J45.41 Moderate persistent asthma with (acute) exacerbation (principal); I10 Essential (primary) hypertension; F32.9 Major depressive disorder, single episode, unspecified; F41.9 Anxiety disorder, unspecified; Z88.3 Allergy status to other anti-infective agents; Z88.6 Allergy status to analgesic agent; Z88.8 Allergy status to other drugs, medicaments and biological substances
CPT/HCPCS: 85025; 36415; 84484; 80053; 83880; 71045; 96374; 99285; J2930

== ENCOUNTER 2020-08-26 03:32 | Emergency (ER) | payer OTHER ==
--- OUTSIDE RECORDS SUMMARY | 2020-08-26 03:35 | XMS REPORT | Clinical Summary ---
:1955 Author Organization [facility] Address [address] [place] [address] Care Team Providers Name Role Phone Jamshid Norwood MD Primary Care Provider Unavailable Allergies Active Allergy Reactions Severity Noted Date Comments Aspirin Anaphylaxis High 01/16/2019 Diphenhydramine Hcl Anaphylaxis, Other (See High 01/16/2019 Comments) Suzwvooy-Rnwxmfimoc-Oqgoqqqst Other (See Comments) Arshad skin Pentazocine-Aspirin Nausea And Vomiting 01/16/2019 Medications Medication Sig Dispensed Refills Start Date End Date Status venlafaxine (EFFEXOR) Take 75 mg by 0 Active 75 MG mouth 2 (two) tabletIndications: times daily. major depressive disorder ALPRAZolam (XANAX) 1 Take 1 mg by 0 Active MG tablet mouth 3 (three) times daily as needed for Anxiety. predniSONE Take 10 mg by 0 Activ e (DELTASONE) 10 MG mouth daily. tabletIndications: asthma roflumilast Take 500 mcg by 0 Ac tive (DALIRESP) 500 mcg mouth daily. Tab tablet albuterol HFA Inhale 1 puff 0 Ac tive (VENTOLIN HFA) 90 by mouth via mcg/actuation inhaler inhaler every 6 (six) hours as needed for Wheezing. dextroamphetamine-amp Take 20 mg by 0 Active hetamine (ADDERALL) mouth 2 (two) 20 mg Tab tablet times daily. pantoprazole Take 1 tablet 180 tablet 3 03/06/2019 03/05/2020 (PROTONIX) 40 MG (40 mg total) tablet by mouth 2 (two) times daily. Active Problems Problem Noted Date Acute GI bleeding 01/16/2019 Social History Tobacco Use Types Packs/Day Years [...] six or more drinks on one occasion? No t asked Sex Assigned at Date Recorded Not on file Last Filed Vital Signs Not on file Plan of Treatment Health Maintenance Due Date Last Done Comments BREAST CANCER SCREENING 1955 CERVICAL CANCER SCREENING PAP ONLY (Age 21-65) 02/08/1977 LIPID PANEL 02/08/2001 MEDICARE ANNUAL WELLNESS (YEAR 2 or FIRST YEAR if no 07/27/2019 IPPE) INFLUENZA VACCINE (#1) 2020 COLON CANCER SCREENING COLONOSCOPY 01/18/2029 01/18/2019 Results Not on fileafter 08/26/2019 Insurance Payer Benefit Plan / Subscriber ID Effective Phone Address T ype Group Dates HUMANA - HUMANA [id number] 2018-[employer] Contracted [place] [id number] Advance Directives For more information, please contact: [phone] Code Status Date Activated Date Inactivated Comments Full Code 01/16/2019 4:03 AM 01/19/2019 7:41 PM This code status was determined by: Patient
--- OUTSIDE RECORDS SUMMARY | 2020-08-26 03:36 | XMS REPORT | Continuity of Care Document ---
:1955 Author Organization [facility] t Address [address] [place] [address] Care Team Providers Name Role Phone Enma SOLIS, A Primary Care Physician Unavailable Phillip Bhatia Attending Clinician Wero MARIA, A Attending Clinician Unavailable Singer AU Attending Clinician Tavo SOLIS Attending Clinician Enma SOLIS, Jamshid Attending Clinician MARIANA RANGEL Attending Clinician Unavailable JORGE LUIS OCASIO Attending Clinician Unavailable Jamshid Nicole Attending Clinician Unavailable Tavo SOLIS Admitting Clinician MARIANA RANGEL Admitting Clinician Unavailable JORGE LUIS OCASIO Admitting Clinician Unavailable Jamshid Nicole Admitting Clinician Unavailable Problems Condition Condition Condition Status Onset Resolution Last Treating Co mments Source Name Details Category Date Date Treatment Clinician Date Acute GI Acute GI Disease [facility] Allergies, Adverse Reactions, Alerts Allergy Allergy Status Severity Reaction(s) Onset Inactive Treating Comm ents Source Name Type Date Date Clinician Aspirin Drug Active Anaphylaxis 2018- [facility] 00 [place] Diphenhy Drug Active Anaphylaxis, [facility] dramine Allergy Other (See 01-16 [facility] - Hcl Comments) 00:00: Medical 00 Center Neomycin Drug Active Other (See Arshad [facility] -Bacitra Intolera Comments) 6-24 skin Dg es - kane-Poly nce 00:00: Medical myxin 00 Center Pentazoc Drug Active Nausea And [facility] in[facility]-Aspi Intolera Vomiting 6-24 [facility] - rin nce 00:00: Medical 00 Center Social History Social Habit Start Date Stop Date Quantity Comments Source History [facility] Alcohol Std Drinks Medica l Center History [facility] - Alcohol Binge Medical Radha ter Sex Assigned At [facility] [place] Tobacco use and 2019-03-06 2019-03-06 Never used [facility] - exposure 00:00:00 00:00:00 [facility] Alcohol intake 2019-03-06 2019-03-[address] [facility] - 00:00:00 00:00:00 non-drinker of Medical Ce nter alcohol (finding) History SDOH 2019-01-18 2019-01-[address] [facility] - Alcohol Frequency 00:00:00 00:00:00 [facility] Smoking Status Start Date Stop Date Source Never smoker [facility] Medications Ordered Filled Start Stop Current Ordering Indication Dosage Frequency Signature Comments Components Source Medication Medication Date Date Medication? Clinician (SIG) Name Name venlafaxine Yes major 75mg Q.5D Take [address] (EFFEXOR) 8-12 depressive by mouth 2 [facility] - 75 MG 14:49: disorder (two) Medical tablet 19 times Center daily. ALPRAZolam Yes 1mg Take [address] (XANAX) 1 8-12 by mouth 3 [facility] - MG tablet 14:49: (three) Medic al 19 times Center daily as needed for Anxiety. predniSONE Yes asthma 10mg QD Take [address] (DELTASONE) 8-12 by mouth [facility] - 10 MG 14:49: daily. Medical tablet 19 Center roflumilast Yes 500ug QD Take [address] (DALIRESP) 8-12 mcg by [facility] - 500 mcg Tab 14:49: mouth Medic al tablet 19 daily. [place] albuterol Yes 1{puff} Inhale [address] HFA 8-12 puff by [facility] - (VENTOLIN 14:49: mouth via Med ical HFA) 90 19 inhaler Center mcg/actuati every 6 on inhaler (six) hours as needed for Wheezing. dextroamphe Yes 20mg Q.5D Take [address] tamine-amph 8-12 by mouth 2 [facility]ka kes - etamine 14:49: (two) Medical (ADDERALL) 19 times Center 20 mg Tab daily. tablet pantoprazol 2019- No 40mg Q.5D Take [address] e 8-12 08-11 tablet (40 [facility] - (PROTONIX) 00:00: 23:59 mg total) M edical 40 MG 00 :00 by mouth 2 Center tablet (two) times daily. Procedures This patient has no known procedures. Plan of Care Planned Activity Planned Date Details Comments Source Future Scheduled 2029-01-[address] [facility] - Test 00:00:00 malignant neoplasm Medical C enter of colon (procedure) [code = 541899973] Future Scheduled 2020-03-[address] [facility] - Test 00:00:00 (#1) [code = [facility] INFLUENZA VACCINE (#1)] Future Scheduled 2019-07-[address] [facility] - Test 00:00:00 WELLNESS (YEAR 2 or Medical Center FIRST YEAR if no IPPE) [code = MEDICARE ANNUAL WELLNESS (YEAR 2 or FIRST YEAR if no IPPE)] Future Scheduled 2001-02-[address] [facility] - Test 00:00:00 (procedure) [code = [facility] 36591750] Future Scheduled 1977-02-[address] [facility] - Test 00:00:00 malignant neoplasm Medical C enter of cervix (procedure) [code = 801932013] Future Scheduled [address] [facility] - Test 00:00:00 malignant neoplasm Medical C enter of breast (procedure) [code = 266904015] Encounters Start End Encounter Admission Attending Care Care Encounter Source Date/Time Date/Time Type Type Clinicians Facility Department ID 2020-03-28 2020-03-29 Emergency [facility] [id number] 20:48:00 00:17:00 Maribell Pena [id number] [place] [id number] [place] [id number] 2020-02-23 2020-02-23 Transition Abelino Conteh [id number] 00:00:00 00:00:00 of Care Demetrio Galeas [id number] Stephen [id number] 2020-02-21 2020-02-22 Emergency Titi Hahn [facility] [id number] 09:30:54 20:01:00 TavoPrashanth Jean [id number] [place] [id number] [place] [id number] 2020-02-21 2020-02-21 Telemedici Enma [facility] [id number] 07:44:24 10:48:34 ne Visit Shannan Pena [id number] [place] [id number] [facility] [id number] nal 044 Building Results Test Description Test Time Test Comments Results Result [facility] e Comments TISSUE EXAM 2019-03-07 Surgical Pathology Report 19:32:00 Case: [id number] Authorizing Provider: Leanna Perez MD Collected: 03/06/2019 0850 Ordering Location: [address] Received: 03/06/2019 1421 Service Pathologist: Radha Fuentes MD Specimens: A) - Duodenum, random bx B) - Stomach, random bx A. DUODENUM, ENDOSCOPIC BIOPSY:- DUODENAL MUCOSA WITH NO PATHOLOGIC ALTERATION- NO FEATURES OF PEPTIC DUODENITIS OR CELIAC DISEASE SEEN- NO GRANULOMAS, DYSPLASIA OR MALIGNANCY NOTEDB. STOMACH, RANDOM, ENDOSCOPIC BIOPSY:- ANTRAL TYPE GASTRIC MUCOSA WITH MILD REACTIVE CHANGES- NO HELICOBACTER PYLORI-LIKE ORGANISMS SEEN ON WARTHIN-STARRY STAIN- NO INTESTINAL METAPLASIA,DYSPLASIA OR MALIGNANCY NOTED Signing Pathologist Direct Phone Line: [phone] y signed by Radha Fuentes MD on 03/07/2019 at 7:32 [id number] 2; [id number] and postop diagnosis: anemia A. Duodenum random biopsy; B. Stomach random biopsyA. Received in formalin labeled with the patient's name, accession number and "duodenum" are three irregular pino soft tissue fragments ranging 0.3-0.5 cm which are submitted in toto in A1. B. Received in formalin labeled with the patient's name, accession number and "stomach" are two irregular pino soft tissue fragments measuring 0.5 cm and 0.3 cm which are submitted in toto in B1. CG/pl PERFORMEDThe interpretation of this case included the use of immunohistochemistry or special stains.WARTHIN-STARSteven rol Slides Examined: In-house known positive controls were evaluated along with the test tissue. These control slides run alongside of the patients sample show appropriate staining. Internal positive and negative controls when available are evaluated Immunohistochemistry technical testing was performed at [facility], Pathology Laboratory where it was developed and its performance characteristics were determined. It has not been cleared or approved by the U.S. Food and Drug Administration. The FDA has determined that such clearance or approval is not necessary. The test is used for clinical purposes. It should not be regarded as investigational or for research. This laboratory is certified under the Clinical Laboratory Improvement Amendments of 1988 (CLIA-88) as qualified to perform high complexity clinical laboratory testing. COMPREHENSIVE METABOLIC PANEL 2019-03-06 07:33:00 Test Item Value Reference Range Interpretation Comme nts TOTAL PROTEIN (BEAKER) 6.3 gm/dL 6.0-8.3 (test code = 770) ALBUMIN (BEAKER) (test code 3.7 g/dL 3.5-5.0 = 1145) ALKALINE PHOSPHATASE 99 U/L 40-150 (BEAKER) (test code = 346) BILIRUBIN TOTAL (BEAKER) 1.1 mg/dL 0.2-1.2 (test code = 377) SODIUM (BEAKER) (test code 143 meq/L 136-145 = 381) POTASSIUM (BEAKER) (test 3.7 meq/L 3.5-5.1 code = 379) CHLORIDE (BEAKER) (test 110 meq/L 98-107 H code = 382) CO2 (BEAKER) (test code = 26 meq/L 22-29 355) BLOOD UREA NITROGEN 13 mg/dL 7-21 (BEAKER) (test code = 354) CREATININE (BEAKER) (test 0.85 mg/dL 0.57-1.25 code = 358) GLUCOSE RANDOM (BEAKER) 85 mg/dL 70-105 (test code = 652) CALCIUM (BEAKER) (test code 8.8 mg/dL 8.4-10.2 = 697) AST (SGOT) (BEAKER) (test 15 U/L 5-34 code = 353) ALT (SGPT) (BEAKER) (test 29 U/L 6-55 code = 347) EGFR (BEAKER) (test code = 68 mL/min/1.73 sq m ESTIMATED GFR IS NOT 1092) ACCURATE CRE ATININE CLEARANCE IN WI EDICTING GLOMERULAR FILT RATION RATE. ESTIMATED GFR IS NOT APPLICABLE FOR DIALYSIS PATIENTS. PROTHROMBIN TIME/[id number] 07:23:00 Test Item Value Reference Range Interpretation Comments PROTIME (BEAKER) (test code = 12.7 seconds 11.9-14.2 759) INR (BEAKER) (test code = 370) 1.0 <=5.9 Effective 12/21/2018: PT Reference Range ChangeNew: 11.9-14.2 Previous: 11.7- 14.7RECOMMENDED COUMADIN/WARFARIN INR THERAPY RANGESSTANDARD DOSE: 2.0-3.0 Includes: PROPHYLAXIS for venous thrombosis, systemic embolization; TREATMENT for venous thrombosis and/or pulmonary embolus.HIGH RISK: Target INR is2.5-3.5 for patients wiht mechanical heart valves.CBC W/PLT COUNT & AUTO [id number] 07:16:00 Test Item Value Reference Range Interpretation Comments WHITE BLOOD CELL COUNT (BEAKER) 8.9 K/ L 3.5-10.5 (test code = 775) RED BLOOD CELL COUNT (BEAKER) 3.85 M/ L 3.93-5.22 L (test code = 761) HEMOGLOBIN (BEAKER) (test code = 8.5 GM/DL 11.2-15.7 L 410) HEMATOCRIT (BEAKER) (test code = 30.0 % 34.1-44.9 L 411) MEAN CORPUSCULAR VOLUME (BEAKER) 77.9 fL 79.4-94.8 L (test code = 753) MEAN CORPUSCULAR HEMOGLOBIN 22.1 pg 25.6-32.2 L (BEAKER) (test code = 751) MEAN CORPUSCULAR HEMOGLOBIN CONC 28.3 GM/DL 32.2-35.5 L (BEAKER) (test code = 752) RED CELL DISTRIBUTION WIDTH 19.0 % 11.7-14.4 H (BEAKER) (test code = 412) PLATELET COUNT (BEAKER) (test 373 K/CU MM 150-450 code = 756) MEAN PLATELET VOLUME (BEAKER) 9.9 fL 9.4-12.3 (test code = 754) NUCLEATED RED BLOOD CELLS 1 /100 WBC 0-0 H (BEAKER) (test code = 413) NEUTROPHILS RELATIVE PERCENT 58 % (BEAKER) (test code = 429) LYMPHOCYTES RELATIVE PERCENT 31 % (BEAKER) (test code = 430) MONOCYTES RELATIVE PERCENT 8 % (BEAKER) (test code = 431) EOSINOPHILS RELATIVE PERCENT 2 % (BEAKER) (test code = 432) BASOPHILS RELATIVE PERCENT 0 % (BEAKER) (test code = 437) NEUTROPHILS ABSOLUTE COUNT 5.14 K/ L 1.56-6.13 (BEAKER) (test code = 670) LYMPHOCYTES ABSOLUTE COUNT 2.73 K/ L 1.18-3.74 (BEAKER) (test code = 414) MONOCYTES ABSOLUTE COUNT (BEAKER) 0.75 K/ L 0.24-0.36 H (test code = 415) EOSINOPHILS ABSOLUTE COUNT 0.14 K/ L 0.04-0.36 (BEAKER) (test code = 416) BASOPHILS ABSOLUTE COUNT (BEAKER) 0.02 K/ L 0.01-0.08 (test code = 417) IMMATURE GRANULOCYTES-RELATIVE 2 % 0-1 H PERCENT (BEAKER) (test code = 2801) HEMOGLOBIN AND [id number] 22:37:00 Test Item Value Reference Range Interpretation Comments HEMOGLOBIN (BEAKER) (test code = 7.5 GM/DL 11.2-15.7 L 410) HEMATOCRIT (BEAKER) (test code = 26.8 % 34.1-44.9 L 411) HEMOGLOBIN AND [id number] 10:01:00 Test Item Value Reference Range Interpretation Comments HEMOGLOBIN (BEAKER) (test code = 8.1 GM/DL 11.2-15.7 L 410) HEMATOCRIT (BEAKER) (test code = 28.9 % 34.1-44.9 L 411) VITAMIN D, [id number] 09:22:00 Test Item Value Reference Range Interpretation Comments VITAMIN D 25-OH (BEAKER) (test code 5.7 ng/mL 6.6-49.9 L = 2764) Effective 05/05/2017: Reference Range ChangeNew: 6.6-49.9 ng/mL Previous: 13.0-47.8 ng/mLRecommended Vitamin D Target Range: 30.0-40.0 ng/mLCOMPREHENSIVE METABOLIC [id number] 08:49:00 Test Item Value Reference Range Interpretation Comments TOTAL PROTEIN 6.0 gm/dL 6.0-8.3 (BEAKER) (test code = 770) ALBUMIN (BEAKER) 3.6 g/dL 3.5-5.0 (test code = 1145) ALKALINE PHOSPHATASE 95 U/L 40-150 (BEAKER) (test code = 346) BILIRUBIN TOTAL 1.0 mg/dL 0.2-1.2 (BEAKER) (test code = 377) SODIUM (BEAKER) (test 142 meq/L 136-145 code = 381) POTASSIUM (BEAKER) 3.6 meq/L 3.5-5.1 (test code = 379) CHLORIDE (BEAKER) 108 meq/L 98-107 H (test code = 382) CO2 (BEAKER) (test 26 meq/L 22-29 code = 355) BLOOD UREA NITROGEN 13 mg/dL 7-21 (BEAKER) (test code = 354) CREATININE (BEAKER) 0.88 mg/dL 0.57-1.25 (test code = 358) GLUCOSE RANDOM 82 mg/dL 70-105 (BEAKER) (test code = 652) CALCIUM (BEAKER) 8.7 mg/dL 8.4-10.2 (test code = 697) AST (SGOT) (BEAKER) 16 U/L 5-34 (test code = 353) ALT (SGPT) (BEAKER) 34 U/L 6-55 (test code = 347) EGFR (BEAKER) (test 65 mL/min/1.73 ESTIMA REMIGIO GFR IS code = 1092) sq m NOT ACCURATE CREATININE CLEARANCE IN PREDICTING GLOMERULAR FILTRATION RATE . ESTIMATED GFR I S NOT APPLICABLE FOR DIALYSIS PATIEN TS. IRON, TIBC, % SAT. (WITHOUT FERRITIN)2019-03-05 08:05:00 Test Item Value Reference Range Interpretation Comments IRON (BEAKER) (test code = 547) 13.0 ug/dL 40.0-160.0 L TOTAL IRON BINDING CAPACITY 351 ug/dL 250-450 (BEAKER) (test code = 769) IRON % SATURATION (2) (BEAKER) 4 % 20-55 L (test code = 2590) TSH/FREE T4 IF [id number] 06:46:00 Test Item Value Reference Range Interpretation Comments THYROID STIMULATING HORMONE 0.90 uIU/mL 0.35-4.94 (BEAKER) (test code = 772) VITAMIN B12 AND [id number] 06:46:00 Test Item Value Reference Range Interpretation Comments VITAMIN B12 (BEAKER) (test code = 317 pg/mL 213-816 774) FOLATE (BEAKER) (test code = 362) 9.5 ng/mL >=7.0 CBC (HEMOGRAM ONLY)2019-03-05 06:20:00 Test Item Value Reference Range Interpretation Comments WHITE BLOOD CELL COUNT (BEAKER) 9.0 K/ L 3.5-10.5 (test code = 775) RED BLOOD CELL COUNT (BEAKER) 3.53 M/ L 3.93-5.22 L (test code = 761) HEMOGLOBIN (BEAKER) (test code = 7.8 GM/DL 11.2-15.7 L 410) HEMATOCRIT (BEAKER) (test code = 27.3 % 34.1-44.9 L 411) MEAN CORPUSCULAR VOLUME (BEAKER) 77.3 fL 79.4-94.8 L (test code = 753) MEAN CORPUSCULAR HEMOGLOBIN 22.1 pg 25.6-32.2 L (BEAKER) (test code = 751) MEAN CORPUSCULAR HEMOGLOBIN CONC 28.6 GM/DL 32.2-35.5 L (BEAKER) (test code = 752) RED CELL DISTRIBUTION WIDTH 18.4 % 11.7-14.4 H (BEAKER) (test code = 412) PLATELET COUNT (BEAKER) (test 410 K/CU MM 150-450 code = 756) MEAN PLATELET VOLUME (BEAKER) 9.9 fL 9.4-12.3 (test code = 754) NUCLEATED RED BLOOD CELLS 0 /100 WBC 0-0 (BEAKER) (test code = 413) HEMOGLOBIN AND [id number] 23:36:00 Test Item Value Reference Range Interpretation Comments HEMOGLOBIN (BEAKER) (test code = 6.0 GM/DL 11.2-15.7 LL 410) HEMATOCRIT (LILLY) (test code = 22.6 % 34.1-44.9 L 411) TISSUE [id number] 15:28:00Surgical Pathology Report Case: [id number] Authorizing Provider: Criss Monroe MD Collected: 01/18/2019 0930 Ordering Location: [address] Received: 01/18/2019 1359 Service Pathologist: Sola Kingston MD Specimen: Polyp, Colon - Sigmoid COLON, SIGMOID POLYP, POLYPECTOMY- TUBULAR ADENOMA- HIGH GRADE DYSPLASIA NOT SEEN Signing Pathologist Direct Phone Line: [phone] signed by Sola Kingston MD on 01/19/2019 at 3:28 [id number] and postoperative diagnosis: Other iron deficiency anemiaReceived in one part. Polyp, colon-sigmoidReceived in formalin labeled with the patient's name, accession number and "polyp, colon-sigmoid" is a 0.4-cm pino polyp which is submitted in toto in A1. CG/bc Performed.FL, UGI, WITHOUT [id number] 13:45:00Reason for exam:->Suggestion of large hiatal hernia on EGD - better define anatomy and evaluate for paraesophageal hernia.FINAL REPORT Upper GI examination History: Suggestion of large hiatal hernia on EGD - better define anatomy and evaluate for paraesophageal hernia. Technique: Upper GI examination was performed using thin barium Findings: The esophageal motility and caliber appears normal. Surgical clips are noted in the distal esophagus. 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 No extravasation of co ntrast. There is a large sliding hiatal hernia containing at least 50% of the stomach. Mild gastroesophageal reflux is identified. Esophageal and gastric mucosa is not optimally evaluated on this exam. Total fluoroscopy time: One minute Total number of films: 10 Impression: Large sliding hiatal hernia. Signed: Gordon Orellanaort Verified Date/Time: 01/19/2019 13:45:41 Reading Location: [address] Consult Reading Room [facility] METABOLIC [id number] 08:32:00 Test Item Value Reference Range Interpretation Comments SODIUM (BEAKER) 142 meq/L 136-145 (test code = 381) POTASSIUM (BEAKER) 3.9 meq/L 3.5-5.1 (test code = 379) CHLORIDE (BEAKER) 110 meq/L 98-107 H (test code = 382) CO2 (BEAKER) (test 27 meq/L 22-29 code = 355) BLOOD UREA NITROGEN 5 mg/dL 7-21 L (BEAKER) (test code = 354) CREATININE (BEAKER) 0.78 mg/dL 0.57-1.25 (test code = 358) GLUCOSE RANDOM 95 mg/dL 70-105 (BEAKER) (test code = 652) CALCIUM (BEAKER) 8.6 mg/dL 8.4-10.2 (test code = 697) EGFR (BEAKER) (test 75 mL/min/1.73 ESTIMA REMIGIO GFR IS code = 1092) sq m NOT ACCURATE CREATININE CLEARANCE IN PREDICTING GLOMERULAR FILTRATION RATE . ESTIMATED GFR I S NOT APPLICABLE FOR DIALYSIS PATIEN TS. CBC (HEMOGRAM ONLY)2019-01-19 08:24:00 Test Item Value Reference Range Interpretation Comments WHITE BLOOD CELL COUNT (BEAKER) 6.9 K/ L 3.5-10.5 (test code = 775) RED BLOOD CELL COUNT (BEAKER) 3.99 M/ L 3.93-5.22 (test code = 761) HEMOGLOBIN (BEAKER) (test code = 9.5 GM/DL 11.2-15.7 L 410) HEMATOCRIT (BEAKER) (test code = 33.3 % 34.1-44.9 L 411) MEAN CORPUSCULAR VOLUME (BEAKER) 83.5 fL 79.4-94.8 (test code = 753) MEAN CORPUSCULAR HEMOGLOBIN 23.8 pg 25.6-32.2 L (BEAKER) (test code = 751) MEAN CORPUSCULAR HEMOGLOBIN CONC 28.5 GM/DL 32.2-35.5 L (BEAKER) (test code = 752) RED CELL DISTRIBUTION WIDTH 20.6 % 11.7-14.4 H (BEAKER) (test code = 412) PLATELET COUNT (BEAKER) (test 351 K/CU MM 150-450 code = 756) MEAN PLATELET VOLUME (BEAKER) 9.6 fL 9.4-12.3 (test code = 754) NUCLEATED RED BLOOD CELLS 0 /100 WBC 0-0 (BEAKER) (test code = 413) VITAMIN B12 AND [id number] 05:50:00 Test Item Value Reference Range Interpretation Comments VITAMIN B12 (BEAKER) (test code = 323 pg/mL 213-816 774) FOLATE (BEAKER) (test code = 362) 11.0 ng/mL >=7.0 BASIC METABOLIC [id number] 05:46:00 Test Item Value Reference Range Interpretation Comments SODIUM (BEAKER) 142 meq/L 136-145 (test code = 381) POTASSIUM (BEAKER) 3.8 meq/L 3.5-5.1 (test code = 379) CHLORIDE (BEAKER) 112 meq/L 98-107 H (test code = 382) CO2 (BEAKER) (test 22 meq/L 22-29 code = 355) BLOOD UREA NITROGEN 3 mg/dL 7-21 L (BEAKER) (test code = 354) CREATININE (BEAKER) 0.77 mg/dL 0.57-1.25 (test code = 358) GLUCOSE RANDOM 85 mg/dL 70-105 (BEAKER) (test code = 652) CALCIUM (BEAKER) 8.1 mg/dL 8.4-10.2 L (test code = 697) EGFR (BEAKER) (test 76 mL/min/1.73 ESTIMA REMIGIO GFR IS code = 1092) sq m NOT ACCURATE CREATININE CLEARANCE IN PREDICTING GLOMERULAR FILTRATION RATE . ESTIMATED GFR I S NOT APPLICABLE FOR DIALYSIS PATIEN TS. IRON, TIBC, % SAT. (WITHOUT FERRITIN)2019-01-18 05:04:00 Test Item Value Reference Range Interpretation Comments IRON (BEAKER) (test code = 547) 19.0 ug/dL 40.0-160.0 L TOTAL IRON BINDING CAPACITY 329 ug/dL 250-450 (BEAKER) (test code = 769) IRON % SATURATION (2) (BEAKER) 6 % 20-55 L (test code = 2590) CBC (HEMOGRAM ONLY)2019-01-18 04:44:00 Test Item Value Reference Range Interpretation Comments WHITE BLOOD CELL COUNT (BEAKER) 6.1 K/ L 3.5-10.5 (test code = 775) RED BLOOD CELL COUNT (BEAKER) 4.14 M/ L 3.93-5.22 (test code = 761) HEMOGLOBIN (BEAKER) (test code = 10.1 GM/DL 11.2-15.7 L 410) HEMATOCRIT (BEAKER) (test code = 34.2 % 34.1-44.9 411) MEAN CORPUSCULAR VOLUME (BEAKER) 82.6 fL 79.4-94.8 (test code = 753) MEAN CORPUSCULAR HEMOGLOBIN 24.4 pg 25.6-32.2 L (BEAKER) (test code = 751) MEAN CORPUSCULAR HEMOGLOBIN CONC 29.5 GM/DL 32.2-35.5 L (BEAKER) (test code = 752) RED CELL DISTRIBUTION WIDTH 20.8 % 11.7-14.4 H (BEAKER) (test code = 412) PLATELET COUNT (BEAKER) (test 342 K/CU MM 150-450 code = 756) MEAN PLATELET VOLUME (BEAKER) 9.9 fL 9.4-12.3 (test code = 754) NUCLEATED RED BLOOD CELLS 0 /100 WBC 0-0 (BEAKER) (test code = 413) BASIC METABOLIC [id number] 06:19:00 Test Item Value Reference Range Interpretation Comments SODIUM (BEAKER) 144 meq/L 136-145 (test code = 381) POTASSIUM (BEAKER) 3.6 meq/L 3.5-5.1 (test code = 379) CHLORIDE (BEAKER) 108 meq/L 98-107 H (test code = 382) CO2 (BEAKER) (test 26 meq/L 22-29 code = 355) BLOOD UREA NITROGEN 6 mg/dL 7-21 L (BEAKER) (test code = 354) CREATININE (BEAKER) 0.83 mg/dL 0.57-1.25 (test code = 358) GLUCOSE RANDOM 71 mg/dL 70-105 (BEAKER) (test code = 652) CALCIUM (BEAKER) 9.3 mg/dL 8.4-10.2 (test code = 697) EGFR (BEAKER) (test 70 mL/min/1.73 ESTIMA REMIGIO GFR IS code = 1092) sq m NOT ACCURATE CREATININE CLEARANCE IN PREDICTING GLOMERULAR FILTRATION RATE . ESTIMATED GFR I S NOT APPLICABLE FOR DIALYSIS PATIEN TS. Specimen slightly ictericCBC W/PLT COUNT & AUTO [id number] 05:36:00 Test Item Value Reference Range Interpretation Comments WHITE BLOOD CELL COUNT (BEAKER) 8.1 K/ L 3.5-10.5 (test code = 775) RED BLOOD CELL COUNT (BEAKER) 4.69 M/ L 3.93-5.22 (test code = 761) HEMOGLOBIN (BEAKER) (test code = 11.1 GM/DL 11.2-15.7 L 410) HEMATOCRIT (BEAKER) (test code = 38.7 % 34.1-44.9 411) MEAN CORPUSCULAR VOLUME (BEAKER) 82.5 fL 79.4-94.8 (test code = 753) MEAN CORPUSCULAR HEMOGLOBIN 23.7 pg 25.6-32.2 L (BEAKER) (test code = 751) MEAN CORPUSCULAR HEMOGLOBIN CONC 28.7 GM/DL 32.2-35.5 L (BEAKER) (test code = 752) RED CELL DISTRIBUTION WIDTH 20.1 % 11.7-14.4 H (BEAKER) (test code = 412) PLATELET COUNT (BEAKER) (test 388 K/CU MM 150-450 code = 756) MEAN PLATELET VOLUME (BEAKER) 10.0 fL 9.4-12.3 (test code = 754) NUCLEATED RED BLOOD CELLS 0 /100 WBC 0-0 (BEAKER) (test code = 413) NEUTROPHILS RELATIVE PERCENT 65 % (BEAKER) (test code = 429) LYMPHOCYTES RELATIVE PERCENT 25 % (BEAKER) (test code = 430) MONOCYTES RELATIVE PERCENT 7 % (BEAKER) (test code = 431) EOSINOPHILS RELATIVE PERCENT 2 % (BEAKER) (test code = 432) BASOPHILS RELATIVE PERCENT 0 % (BEAKER) (test code = 437) NEUTROPHILS ABSOLUTE COUNT 5.27 K/ L 1.56-6.13 (BEAKER) (test code = 670) LYMPHOCYTES ABSOLUTE COUNT 2.06 K/ L 1.18-3.74 (BEAKER) (test code = 414) MONOCYTES ABSOLUTE COUNT (BEAKER) 0.54 K/ L 0.24-0.36 H (test code = 415) EOSINOPHILS ABSOLUTE COUNT 0.15 K/ L 0.04-0.36 (BEAKER) (test code = 416) BASOPHILS ABSOLUTE COUNT (BEAKER) 0.03 K/ L 0.01-0.08 (test code = 417) IMMATURE GRANULOCYTES-RELATIVE 1 % 0-1 PERCENT (BEAKER) (test code = 2801) CBC W/PLT COUNT & AUTO [id number] 22:19:00 Test Item Value Reference Range Interpretation Comments WHITE BLOOD CELL COUNT (BEAKER) 8.8 K/ L 3.5-10.5 (test code = 775) RED BLOOD CELL COUNT (BEAKER) 3.59 M/ L 3.93-5.22 L (test code = 761) HEMOGLOBIN (BEAKER) (test code = 8.6 GM/DL 11.2-15.7 L 410) HEMATOCRIT (BEAKER) (test code = 28.7 % 34.1-44.9 L 411) MEAN CORPUSCULAR VOLUME (BEAKER) 79.9 fL 79.4-94.8 (test code = 753) MEAN CORPUSCULAR HEMOGLOBIN 24.0 pg 25.6-32.2 L (BEAKER) (test code = 751) MEAN CORPUSCULAR HEMOGLOBIN CONC 30.0 GM/DL 32.2-35.5 L (BEAKER) (test code = 752) RED CELL DISTRIBUTION WIDTH 19.3 % 11.7-14.4 H (BEAKER) (test code = 412) PLATELET COUNT (BEAKER) (test 310 K/CU MM 150-450 code = 756) MEAN PLATELET VOLUME (BEAKER) 10.2 fL 9.4-12.3 (test code = 754) NUCLEATED RED BLOOD CELLS 1 /100 WBC 0-0 H (BEAKER) (test code = 413) NEUTROPHILS RELATIVE PERCENT 73 % (BEAKER) (test code = 429) LYMPHOCYTES RELATIVE PERCENT 18 % (BEAKER) (test code = 430) MONOCYTES RELATIVE PERCENT 8 % (BEAKER) (test code = 431) EOSINOPHILS RELATIVE PERCENT 1 % (BEAKER) (test code = 432) BASOPHILS RELATIVE PERCENT 0 % (BEAKER) (test code = 437) NEUTROPHILS ABSOLUTE COUNT 6.46 K/ L 1.56-6.13 H (BEAKER) (test code = 670) LYMPHOCYTES ABSOLUTE COUNT 1.60 K/ L 1.18-3.74 (BEAKER) (test code = 414) MONOCYTES ABSOLUTE COUNT (BEAKER) 0.66 K/ L 0.24-0.36 H (test code = 415) EOSINOPHILS ABSOLUTE COUNT 0.04 K/ L 0.04-0.36 (BEAKER) (test code = 416) BASOPHILS ABSOLUTE COUNT (BEAKER) 0.01 K/ L 0.01-0.08 (test code = 417) IMMATURE GRANULOCYTES-RELATIVE 1 % 0-1 PERCENT (BEAKER) (test code = 2801) CBC W/PLT COUNT & AUTO [id number] 13:07:00 Test Item Value Reference Range Interpretation Comments WHITE BLOOD CELL COUNT (BEAKER) 11.5 K/ L 3.5-10.5 H (test code = 775) RED BLOOD CELL COUNT (BEAKER) 4.05 M/ L 3.93-5.22 (test code = 761) HEMOGLOBIN (BEAKER) (test code = 9.8 GM/DL 11.2-15.7 L 410) HEMATOCRIT (BEAKER) (test code = 33.1 % 34.1-44.9 L 411) MEAN CORPUSCULAR VOLUME (BEAKER) 81.7 fL 79.4-94.8 (test code = 753) MEAN CORPUSCULAR HEMOGLOBIN 24.2 pg 25.6-32.2 L (BEAKER) (test code = 751) MEAN CORPUSCULAR HEMOGLOBIN CONC 29.6 GM/DL 32.2-35.5 L (BEAKER) (test code = 752) RED CELL DISTRIBUTION WIDTH 19.3 % 11.7-14.4 H (BEAKER) (test code = 412) PLATELET COUNT (BEAKER) (test 354 K/CU MM 150-450 code = 756) MEAN PLATELET VOLUME (BEAKER) 10.3 fL 9.4-12.3 (test code = 754) NUCLEATED RED BLOOD CELLS 1 /100 WBC 0-0 H (BEAKER) (test code = 413) NEUTROPHILS RELATIVE PERCENT 86 % (BEAKER) (test code = 429) LYMPHOCYTES RELATIVE PERCENT 9 % (BEAKER) (test code = 430) MONOCYTES RELATIVE PERCENT 3 % (BEAKER) (test code = 431) EOSINOPHILS RELATIVE PERCENT 1 % (BEAKER) (test code = 432) BASOPHILS RELATIVE PERCENT 0 % (BEAKER) (test code = 437) NEUTROPHILS ABSOLUTE COUNT 9.84 K/ L 1.56-6.13 H (BEAKER) (test code = 670) LYMPHOCYTES ABSOLUTE COUNT 1.00 K/ L 1.18-3.74 L (BEAKER) (test code = 414) MONOCYTES ABSOLUTE COUNT (BEAKER) 0.37 K/ L 0.24-0.36 H (test code = 415) EOSINOPHILS ABSOLUTE COUNT 0.07 K/ L 0.04-0.36 (BEAKER) (test code = 416) BASOPHILS ABSOLUTE COUNT (BEAKER) 0.03 K/ L 0.01-0.08 (test code = 417) IMMATURE GRANULOCYTES-RELATIVE 1 % 0-1 PERCENT (BEAKER) (test code = 2801) PROTHROMBIN TIME/[id number] 09:14:00 Test Item Value Reference Range Interpretation Comments PROTIME (BEAKER) (test code = 13.5 seconds 11.9-14.2 759) INR (BEAKER) (test code = 370) 1.1 <=5.9 Effective 12/21/2018: PT Reference Range ChangeNew: 11.9-14.2 Previous: 11.7- 14.7RECOMMENDED COUMADIN/WARFARIN INR THERAPY RANGESSTANDARD DOSE: 2.0-3.0 Includes: PROPHYLAXIS for venous thrombosis, systemic embolization; TREATMENT for venous thrombosis and/or pulmonary embolus.HIGH RISK: Target INR is2.5-3.5 for patients wiht mechanical heart valves.COMPREHENSIVE METABOLIC PANEL 2019-01-16 07:17:00 Test Item Value Reference Range Interpretation Comments TOTAL PROTEIN 5.2 gm/dL 6.0-8.3 L (BEAKER) (test code = 770) ALBUMIN (BEAKER) 3.1 g/dL 3.5-5.0 L (test code = 1145) ALKALINE PHOSPHATASE 62 U/L 40-150 (BEAKER) (test code = 346) BILIRUBIN TOTAL 0.8 mg/dL 0.2-1.2 (BEAKER) (test code = 377) SODIUM (BEAKER) (test 142 meq/L 136-145 code = 381) POTASSIUM (BEAKER) 3.8 meq/L 3.5-5.1 (test code = 379) CHLORIDE (BEAKER) 111 meq/L 98-107 H (test code = 382) CO2 (BEAKER) (test 26 meq/L 22-29 code = 355) BLOOD UREA NITROGEN 15 mg/dL 7-21 (BEAKER) (test code = 354) CREATININE (BEAKER) 0.81 mg/dL 0.57-1.25 (test code = 358) GLUCOSE RANDOM 86 mg/dL 70-105 (BEAKER) (test code = 652) CALCIUM (BEAKER) 7.9 mg/dL 8.4-10.2 L (test code = 697) AST (SGOT) (BEAKER) 12 U/L 5-34 (test code = 353) ALT (SGPT) (BEAKER) 9 U/L 6-55 (test code = 347) EGFR (BEAKER) (test 72 mL/min/1.73 ESTIMA REMIGIO GFR IS code = 1092) sq m NOT ACCURATE CREATININE CLEARANCE IN PREDICTING GLOMERULAR FILTRATION RATE . ESTIMATED GFR I S NOT APPLICABLE FOR DIALYSIS PATIEN TS. CBC W/PLT COUNT & AUTO [id number] 07:07:00 Test Item Value Reference Range Interpretation Comments WHITE BLOOD CELL COUNT (BEAKER) 9.1 K/ L 3.5-10.5 (test code = 775) RED BLOOD CELL COUNT (BEAKER) 3.13 M/ L 3.93-5.22 L (test code = 761) HEMOGLOBIN (BEAKER) (test code = 7.0 GM/DL 11.2-15.7 L 410) HEMATOCRIT (BEAKER) (test code = 25.0 % 34.1-44.9 L 411) MEAN CORPUSCULAR VOLUME (BEAKER) 79.9 fL 79.4-94.8 (test code = 753) MEAN CORPUSCULAR HEMOGLOBIN 22.4 pg 25.6-32.2 L (BEAKER) (test code = 751) MEAN CORPUSCULAR HEMOGLOBIN CONC 28.0 GM/DL 32.2-35.5 L (BEAKER) (test code = 752) RED CELL DISTRIBUTION WIDTH 20.0 % 11.7-14.4 H (BEAKER) (test code = 412) PLATELET COUNT (BEAKER) (test 343 K/CU MM 150-450 code = 756) MEAN PLATELET VOLUME (BEAKER) 10.3 fL 9.4-12.3 (test code = 754) NUCLEATED RED BLOOD CELLS 1 /100 WBC 0-0 H (BEAKER) (test code = 413) NEUTROPHILS RELATIVE PERCENT 63 % (BEAKER) (test code = 429) LYMPHOCYTES RELATIVE PERCENT 29 % (BEAKER) (test code = 430) MONOCYTES RELATIVE PERCENT 7 % (BEAKER) (test code = 431) EOSINOPHILS RELATIVE PERCENT 1 % (BEAKER) (test code = 432) BASOPHILS RELATIVE PERCENT 0 % (BEAKER) (test code = 437) NEUTROPHILS ABSOLUTE COUNT 5.75 K/ L 1.56-6.13 (BEAKER) (test code = 670) LYMPHOCYTES ABSOLUTE COUNT 2.61 K/ L 1.18-3.74 (BEAKER) (test code = 414) MONOCYTES ABSOLUTE COUNT (BEAKER) 0.63 K/ L 0.24-0.36 H (test code = 415) EOSINOPHILS ABSOLUTE COUNT 0.07 K/ L 0.04-0.36 (BEAKER) (test code = 416) BASOPHILS ABSOLUTE COUNT (BEAKER) 0.01 K/ L 0.01-0.08 (test code = 417) IMMATURE GRANULOCYTES-RELATIVE 1 % 0-1 PERCENT (BEAKER) (test code = 2801) BASIC METABOLIC [id number] 01:47:00 Test Item Value Reference Range Interpretation Comments SODIUM (BEAKER) 140 meq/L 136-145 (test code = 381) POTASSIUM (BEAKER) 3.4 meq/L 3.5-5.1 L (test code = 379) CHLORIDE (BEAKER) 108 meq/L 98-107 H (test code = 382) CO2 (BEAKER) (test 25 meq/L 22-29 code = 355) BLOOD UREA NITROGEN 17 mg/dL 7-21 (BEAKER) (test code = 354) CREATININE (BEAKER) 0.81 mg/dL 0.57-1.25 (test code = 358) GLUCOSE RANDOM 103 mg/dL 70-105 (BEAKER) (test code = 652) CALCIUM (BEAKER) 7.9 mg/dL 8.4-10.2 L (test code = 697) EGFR (BEAKER) (test 72 mL/min/1.73 ESTIMA REMIGIO GFR IS code = 1092) sq m NOT ACCURATE CREATININE CLEARANCE IN PREDICTING GLOMERULAR FILTRATION RATE . ESTIMATED GFR I S NOT APPLICABLE FOR DIALYSIS PATIEN TS. CBC W/PLT COUNT & AUTO [id number] 01:42:00 Test Item Value Reference Range Interpretation Comments WHITE BLOOD CELL COUNT (BEAKER) 11.3 K/ L 3.5-10.5 H (test code = 775) RED BLOOD CELL COUNT (BEAKER) 2.34 M/ L 3.93-5.22 L (test code = 761) HEMOGLOBIN (BEAKER) (test code = 4.7 GM/DL 11.2-15.7 LL 410) HEMATOCRIT (BEAKER) (test code = 17.5 % 34.1-44.9 L 411) MEAN CORPUSCULAR VOLUME (BEAKER) 74.8 fL 79.4-94.8 L (test code = 753) MEAN CORPUSCULAR HEMOGLOBIN 20.1 pg 25.6-32.2 L (BEAKER) (test code = 751) MEAN CORPUSCULAR HEMOGLOBIN CONC 26.9 GM/DL 32.2-35.5 L (BEAKER) (test code = 752) RED CELL DISTRIBUTION WIDTH 19.9 % 11.7-14.4 H (BEAKER) (test code = 412) PLATELET COUNT (BEAKER) (test 374 K/CU MM 150-450 code = 756) MEAN PLATELET VOLUME (BEAKER) 10.4 fL 9.4-12.3 (test code = 754) NUCLEATED RED BLOOD CELLS 0 /100 WBC 0-0 (BEAKER) (test code = 413) NEUTROPHILS RELATIVE PERCENT 70 % (BEAKER) (test code = 429) LYMPHOCYTES RELATIVE PERCENT 21 % (BEAKER) (test code = 430) MONOCYTES RELATIVE PERCENT 7 % (BEAKER) (test code = 431) EOSINOPHILS RELATIVE PERCENT 0 % (BEAKER) (test code = 432) BASOPHILS RELATIVE PERCENT 0 % (BEAKER) (test code = 437) NEUTROPHILS ABSOLUTE COUNT 7.91 K/ L 1.56-6.13 H (BEAKER) (test code = 670) LYMPHOCYTES ABSOLUTE COUNT 2.39 K/ L 1.18-3.74 (BEAKER) (test code = 414) MONOCYTES ABSOLUTE COUNT (BEAKER) 0.83 K/ L 0.24-0.36 H (test code = 415) EOSINOPHILS ABSOLUTE COUNT 0.03 K/ L 0.04-0.36 L (BEAKER) (test code = 416) BASOPHILS ABSOLUTE COUNT (BEAKER) 0.01 K/ L 0.01-0.08 (test code = 417) IMMATURE GRANULOCYTES-RELATIVE 1 % 0-1 PERCENT (BEAKER) (test code = 2801) Reference Lab [id number] 14:16:00 Test Item Value Reference Range Interpretation Comments Reference Lab Testing Negative Negative Perfor med at: BN - (test code = HELIAG) [facility] [address] [place], [place] [id number] b Director: Dioni Jenkins MD, Radha ne: [phone] [id number] SURGICAL PATHOLOGY, LEVEL [id number] 13:33:[address] [address] Laboratory Printed: 01/10/18 1333 [facility] DAEMPathology Page: 1 Patient: CORNELIO RUFFIN Birthdate: 1955 Age/Sex: 62/F Spec#: [id number]: Tyrell Patino MD Specimen Date: 01/07/18 Received Date: 01/07/18 Specimen: POLYP, COLON CLINICAL DIAGNOSIS anemia PATHOLOGIC DIAGNOSIS Cecal polyp, polypectomy: - Tubular adenoma. Comment:There is no high grade dysplasia or malignancy present. Pathologist:Crystal Brumfield MD Entered by:01/10/18 - 1256 LAB.YGP PROCEDURES: [id number] GROSS DESCRIPTION A. POLYP,COLON CECUM The specimen is received in 10% formalin, and is labeled with the patient's name and "cecumcolon polyp." The specimen consists of two pink-pino soft tissue fragments measuring 1.2 x0.8 x 0.5 cm in aggregate. The largest fragment bisected. The specimen is entirelysubmitted in one cassette. Dictated by: Tina Kimball Entered by: 01/07/18 - 1311 LAB.YGP Patient: CORNELIO RUFFIN Re01/05/18Loc: T4-A MR#: [id number] CONTINUED ON NEXT PAGE Dis: 01/08/18ta: DIS IN --- --------- [place] [address] Laboratory Printed: 01/10/[address] [place] [address] [facility] Page: 2 Patient: CORNELIO RUFFIN [id number] (Continued) GROSS DESCRIPTION (Continued) MICROSCOPIC DESCRIPTION A microscopic examination was performed to arrive at the diagnostic conclusion reported. Signed (Electronically Signed) Crystal Brumfield MD 01/10/18 --------- --- Patient: CORNELIO RUFFIN Re01/05/18Loc: T4-A MR#: [id number] END OF REPORT Dis: 01/08/18ta: DIS [id number] 11:30:00 Test Item Value Reference Range Interpretation Comments Chemistry (test 142 mmol/L 136-145 N code = NA-T) Chemistry (test 3.6 mmol/L 3.5-5.1 N code = K-T) Chemistry (test 104 mmol/L 98-107 N code = CL) Chemistry (test 27 mmol/L 23-31 N code = CO2) Chemistry (test 15 mmol/L 10-20 N code = ANGP) Chemistry (test Less than 4 9.8-20.1 L code = BUN) mg/dL Chemistry (test 0.82 mg/dL 0.6-1.1 N code = CREATT) Chemistry (test 71 Reference Ra nge for code = EGFRMDRD) Estimated G FR: Gre ater than 90 mL/min/ 1.73 m2NOTE:The MDRD equation has no t been validated for use with theeld erly (over 70 years of age), women, patients with serious comorbi d condition or pe rsons with extremes o fbody size, muscle ma ss, or nutritional status. Chemistry (test 143 mg/dL 80-115 H code = GLU-T) Chemistry (test 8.9 mg/dL 7.8-10.44 N code = CA) [id number] 06:56:00 Test Item Value Reference Range Interpretation Comments Chemistry (test code = MG) 1.8 mg/dL 1.6-2.6 N Comment Add to AM labsComment Add to AM [id number] 06:56:00 Test Item Value Reference Range Interpretation Comments Chemistry (test code = 184 mg/dl < 200 Desired CHOL) Chemistry (test code = 126 mg/dL Less than 150 TRIG) Chemistry (test code = 43 mg/dL >60 Neg Risk Adult HDL levels in HDL) terms of risk f or Coronary Heart Disease > or Equal to 60 mg/dL N egative Risk < 40 mg/dL HIGH Risk Chemistry (test code = 116 mg/dL Level s in terms of LDL) risk for chen ry heart disease: Desirable: Less than 130 m g/dL Borderline H igh Risk: 130 - 15 9 mg/dL High Risk : Greater t denney 160 mg/dL Chemistry (test code = 4.3 Less than 4.5 Adul t levels in terms CRISK) of risk for Cor onary Heart Disease: Dangerous level : Greater than 8. 3 High: 5.6 - 8.3 Average: 3.7 - 5.6 Below average: 2.5 - 3.7 Prot ection probable: Less than 2.5 Comment Add to AM labsComment Add to AM [id number] 04:30:00 Test Item Value Reference Range Interpretation Comments Hematology (test code = WBCT) 8.7 thou/uL 4.8-10.8 N Hematology (test code = RBCT) 4.24 mill/uL 4.20-5.40 N Hematology (test code = HGBT) 8.8 g/dL 12.0-16.0 L Hematology (test code = HCTT) 29.4 % 36.0-47.0 L Hematology (test code = MCV) 69.3 fl 81.0-99.0 L Hematology (test code = MCH) 20.7 pg 27.0-31.0 L Hematology (test code = MCHC) 29.8 g/dL 32.0-36.0 L Hematology (test code = RDW) 22.6 % 11.5-14.5 H Hematology (test code = PLTT) 323 thou/uL 130-400 N Hematology (test code = MPV) 5.3 fL 7.4-10.4 L Hematology (test code = %NEUT) 73.0 % 42.0-75.0 N Hematology (test code = %LYMPH) 18.8 % 21.0-51.0 L Hematology (test code = %MONO) 7.1 % 0.0-10.0 N Hematology (test code = %EOS) 0.1 % 0.0-10.0 N Hematology (test code = %BASO) 1.0 % 0.0-1.0 N Hematology (test code = NEUT#) 6.3 thou/uL 1.40-6.50 N Hematology (test code = LYMPH#) 1.6 thou/uL 1.20-3.40 N Hematology (test code = MONO#) 0.6 thou/uL 0.11-0.59 H Hematology (test code = EOS#) 0.0 thou/uL 0.0-0.7 N Hematology (test code = BASO#) 0.1 thou/uL 0.0-0.2 N [id number] 04:24:00 Test Item Value Reference Range Interpretation Comments Chemistry (test PARAM.JRT@0424 Refer to Cri tical code = CCC) Value designate d by an *L or *H Chemistry (test 142 mmol/L 136-145 N code = NA-T) Chemistry (test 2.9 mmol/L 3.5-5.1 LL Critical Zoe ue! code = K-T) Chemistry (test 104 mmol/L 98-107 N code = CL) Chemistry (test 28 mmol/L 23-31 N code = CO2) Chemistry (test 13 mmol/L 10-20 N code = ANGP) Chemistry (test Less than 4 9.8-20.1 L code = BUN) mg/dL Chemistry (test 0.74 mg/dL 0.6-1.1 N code = CREATT) Chemistry (test 80 Reference Ra nge for code = EGFRMDRD) Estimated G FR: Gre ater than 90 mL/min/ 1.73 m2NOTE:The MDRD equation has no t been validated for use with theeld erly (over 70 years of age), women, patients with serious comorbi d condition or pe rsons with extremes o fbody size, muscle ma ss, or nutritional status. Chemistry (test 89 mg/dL 80-115 N code = GLU-T) Chemistry (test 8.9 mg/dL 7.8-10.44 N code = CA) [id number] 15:26:00 Test Item Value Reference Range Interpretation Comments Hematology (test code = HGBT) 8.8 g/dL 12.0-16.0 L Hematology (test code = HCTT) 29.5 % 36.0-47.0 L [id number] SURGICAL PATHOLOGY, LEVEL [id number] 14:22:[address] [address] Laboratory Printed: 01/07/[address] [place] [address] DAEMPathology Page: 1 Patient: CORNELIO RUFFIN Birthdate: 1955 Age/Sex: 62/F Spec#: [id number]: Tyrell Patino MD Specimen Date: [...] esophagitis, consistent with gastroesophageal reflux. - No Bar rett's specialized columnar epithelium identified. - Unremarkable gastric mucosa. Comment: A PAS/Alcian Blue stain with adequate control is negative for fungal organisms andconfirms the absence of intestinal metaplasia. Pathologist:Mike Green MD Entered by:01/07/18 - 1117 LAB.YGP PROCEDURES: [id number]/2,33546/2, 88488 Patient: CORNELIO RUFFIN Re01/05/18Loc:T4-A MR#: [id number] CONTINUED ON NEXT PAGE Dis: Sta: ADM IN - [address] [address] Laboratory Printed: 01/07/[address] [place] [address] [facility] Page: 2 Patient: CORNELIO RUFFIN [id number] (Continued) GROSS DESCRIPTION A. GASTRIC BIOPSY The specimen is received in 10% formalin, and is labeled with the patient's name and"gastric biopsy." The specimen consists of two pink-pino soft tissue fragments measuring 0.4cm in aggregate. The specimen is entirely submitted in cassette A. B. ESOPHAGEAL BIOPSY The specimen is received in 10% formalin, and is labeled with the patient's name and"esophagus biopsy." The specimen consists oftwo pink-pino soft tissue fragments measuring0.6 cm in aggregate. The specimen is entirely submittedin cassette B. Dictated by: Tina Kimball Entered by: 01/06/18 - 2489 [facility].YGP MICROSCOPIC DESCRIPTION A microscopic examination was performed to arrive at the diagnostic conclusion reported. Signed (Electronically Signed) Mike Green MD 01/07/18 Patient: CORNELIO RUFFIN Re01/05/18Loc: T4-A MR#: [id number] END OF REPORT Dis: Sta: ADMINChemistry - Benji [id number] 13:00:00 Test Item Value Reference Range Interpretation Comments Chemistry - Benji POSITIVE Negative A Testing (test code = ANASC) Chemistry - Benji Negative Negative SYMPHONY SC REEN Testing (test code INCLUDES: PRAVEEN, = ANASYM) SS-A/Ro, SS-B/L a, U1RNP,RNP70, SCL-70, CENP, J o-1 Chemistry - Benji 0.10 Ratio <0.7 Negative Testing (test code = ANASYMQUANT) Chemistry - Benji 120.0 IU/mL <10 Negative H Testing (test code = DSDNAIGG) Chemistry - Benji dsDNA Less Testing (test code than 10.0 IU/mL = = DSDNAINTERP) Negative 10.0 - 15.0 IU /mL = Equivocal Greater than 15.0 IU/mL = POSITIV E Chemistry - Benji NEW METHOD Values o btained Testing (test code with diff erent = ELIAANANEWMETH) assay meth ods CANNOT be usedINTERCHANGE ABLY .If in the cour se of monitoring a patient, the as say methodused for determining lev els is changed, a newbaseline/ser ial monitoring may need to be performed .SEE REFERENCE RANGE S FOR NEW METHODOLOGY.Met hod: Enzyme Linked Fluorescent Immunoassay (Benji)Reference s: [employer] Benji Package Inserts - Directions [facility] centerSeptember,November 12, Ratify ic. Chemistry - Benji [id number] 13:00:00 Test Item Value Reference Range Interpretation Comments Chemistry - Benji 0.6 U/mL <4 Negative Testing (test code = M2T) Chemistry - Benji Less Testing (test code than 4.0 U/mL = = [id number]) Negative 4.0 - 6.0 U/mL = Equivocal Greater than 6. 0 U/mL = POSITIVE Chemistry - Benji NEW METHOD Values o btained with Testing (test code different assay = ELIAVASNEW) methods CANNOT be usedINTERCHANGE ABLY. If in the cours e of monitoring a patient, the as say methodused for determining lev els is changed, a newbaseline/ser ial monitoring may need to be performed .SEE REFERENCE RANGE S FOR NEW METHODOLOGY.Met hod: Enzyme Linked Fluorescent Immunoassay (Benji)Reference s: [employer] Benji Package Inserts - Directions september,November 12, Ratify ic. Chemistry - Benji 0.6 U/mL <4 Negative Testing (test code = M2T) Chemistry - Benji Less Testing (test code than 4.0 U/mL = = [id number]) Negative 4.0 - 6.0 U/mL = Equivocal Greater than 6. 0 U/mL = POSITIVE Chemistry - Benji NEW METHOD Values o btained with Testing (test code different assay = ELIAVASNEW) methods CANNOT be usedINTERCHANGE ABLY. If in the cours e of monitoring a patient, the as say methodused for determining lev els is changed, a newbaseline/ser ial monitoring may need to be performed .SEE REFERENCE RANGE S FOR NEW METHODOLOGY.Met hod: Enzyme Linked Fluorescent Immunoassay (Benji)Reference s: [employer] Benji Package Inserts - Directions Maru negron, September,November 12, [employer]. Chemistry - Benji [id number] 13:00:00 Test Item Value Reference Range Interpretation Comments Chemistry - Benji CENP, Chela -1, RNP70, Testing (test code = Scl-70, [place]o, ELIAANAINTERP) SSA/Ro, SSB/L a IgGAntibodies: Less t denney 7.0 Benji U/mL = Negative 7.0 - 10.0 Benji U/mL = Equivoca l Greate r than 10.0 Benji U/mL = [id number] IgG: Less t denney 5.0 Benji U/mL = Negative 5.0 - 10.0 Benji U/mL = Equivoca l Greater than 10.0 Benji U/mL = POSITIVE Chemistry - Benji [id number] 12:38:00 Test Item Value Reference Range Interpretation Comments Chemistry - Benji Testing (test 0.4 EliAU/mL <7 Negative code = CELTTGIGA) Comment add onChemistry - Benji [id number] 12:38:00 Test Item Value Reference Range Interpretation Comments Chemistry - Benji Testing (test 0.6 EliAU/mL <7 Negative code = CELTTGIGG) Comment add onChemistry - Benji [id number] 12:38:00 Test Item Value Reference Range Interpretation Comments Chemistry - Benji Less Testing (test code = than 7. 0 Benji U/mL [id number]) = Negative 7.0 - 10.0 E Jeannette U/mL = Equivoca l Greater than 10.0 Benji U/mL = POSITIVE Comment add onChemistry - [id number] 12:33:00 Test Item Value Reference Range Interpretation Comments Chemistry - Specials Non-Reactive NonReactive The ames el screens (test code = HIVT) for HIV-1 p24 Antigen HIV-1/HIV-2Anti body. [id number] 10:27:00 Test Item Value Reference Range Interpretation Comments Immunology (test code = SYPHABT) Nonreactive Nonreactive [id number] 10:25:00 Test Item Value Reference Range Interpretation Comments Hematology (test code = 8.1 thou/uL 4.8-10.8 N WBCT) Hematology (test code = 4.12 mill/uL 4.20-5.40 L RBCT) Hematology (test code = 8.5 g/dL 12.0-16.0 L HGBT) Hematology (test code = 28.9 % 36.0-47.0 L HCTT) Hematology (test code = 70.1 fl 81.0-99.0 L MCV) Hematology (test code = 20.6 pg 27.0-31.0 L MCH) Hematology (test code = 29.4 g/dL 32.0-36.0 L MCHC) Hematology (test code = 22.4 % 11.5-14.5 H RDW) Hematology (test code = 315 thou/uL 130-400 N PLTT) Hematology (test code = 5.7 fL 7.4-10.4 L MPV) Hematology (test code = 66.6 % 42.0-75.0 N %NEUT) Hematology (test code = 24.7 % 21.0-51.0 N %LYMPH) Hematology (test code = 8.1 % 0.0-10.0 N %MONO) Hematology (test code = 0.4 % 0.0-10.0 N %EOS) Hematology (test code = 0.2 % 0.0-1.0 N %BASO) Hematology (test code = 5.4 thou/uL 1.40-6.50 N NEUT#) Hematology (test code = 2.0 thou/uL 1.20-3.40 N LYMPH#) Hematology (test code = 0.7 thou/uL 0.11-0.59 H MONO#) Hematology (test code = 0.0 thou/uL 0.0-0.7 N EOS#) Hematology (test code = 0.0 thou/uL 0.0-0.2 N BASO#) Hematology (test code = MODERATE=15-30 cells 0-5/hpf SC) (100X) Hematology (test code = MODERATE=16-30 cells 0-5/hpf HYPO) (100X) Hematology (test code = SLIGHT = 2-3 cells 0-2/hpf POLY) (100X) Hematology (test code = MODERATE= 6-15 cells 0-1/hpf OV) (100X) Hematology (test code = Appears Adequate PCOMMENT) [id number] 10:07:00 Test Item Value Reference Range Interpretation Comments Chemistry (test code 141 mmol/L 136-145 N = NA-T) Chemistry (test code 3.2 mmol/L 3.5-5.1 L = K-T) Chemistry (test code 105 mmol/L 98-107 N = CL) Chemistry (test code 28 mmol/L 23-31 N = CO2) Chemistry (test code 11 mmol/L 10-20 N = ANGP) Chemistry (test code 4 mg/dL 9.8-20.1 L = BUN) Chemistry (test code 0.72 mg/dL 0.6-1.1 N = CREATT) Chemistry (test code 82 Referen ce Range for = EGFRMDRD) Estimated GFR: Great er than 90 mL/min/1.73 m2NOTE:The MDRD equation has no t been validated for u se with theelderly (ove r 70 years of age), women, patientswith se rious comorbid condit ion or persons with ex tremes ofbody size, mu scle mass, or nutrit ional status. Chemistry (test code 79 mg/dL 80-115 L = GLU-T) Chemistry (test code 8.6 mg/dL 7.8-10.44 N = CA) Occult Blood, Stool SCREEN (3)2018-01-06 17:56:00 Test Item Value Reference Range Interpretation Comments Occult Blood, Stool SCREEN (3) (test IFOB code = OCCSTS) Occult Blood, Stool SCREEN (3) (test N code = OCCSTS1) Comment [id number] 16:59:00 Test Item Value Reference Range Interpretation Comments Hematology (test code = WBCT) 9.1 thou/uL 4.8-10.8 N Hematology (test code = RBCT) 3.97 mill/uL 4.20-5.40 L Hematology (test code = HGBT) 8.2 g/dL 12.0-16.0 L Hematology (test code = HCTT) 27.7 % 36.0-47.0 L Hematology (test code = MCV) 69.9 fl 81.0-99.0 L Hematology (test code = MCH) 20.7 pg 27.0-31.0 L Hematology (test code = MCHC) 29.6 g/dL 32.0-36.0 L Hematology (test code = RDW) 22.3 % 11.5-14.5 H Hematology (test code = PLTT) 311 thou/uL 130-400 N Hematology (test code = MPV) 10.9 fL 7.4-10.4 H Chemistry - [id number] 13:59:00 Test Item Value Reference Range Interpretation Comments Chemistry - Specials Non-Reactive NonReactive (test code = HBSABINT) Chemistry - Specials 0.37 mIU/mL REFEREN CE RANGES for (test code = HBSAB (Hepatiti s B HBSABCONC) Surface Antibody):Nonre active : 0.0 - <8.0 Individual is considered NOT immune to HBV infectionIndete rminat e: >= 8.0 - <12.0 The immu ne status of the individual should be further assess ed by fol low-up testing.Reactiv e: >= 12.0 Individual is considered immune to HBV infection. [id number] 12:26:00 Test Item Value Reference Range Interpretation Comments Hematology (test code = WBCT) 8.4 thou/uL 4.8-10.8 N Hematology (test code = RBCT) 4.03 mill/uL 4.20-5.40 L Hematology (test code = HGBT) 8.3 g/dL 12.0-16.0 L Hematology (test code = HCTT) 28.2 % 36.0-47.0 L Hematology (test code = MCV) 70.0 fl 81.0-99.0 L Hematology (test code = MCH) 20.7 pg 27.0-31.0 L Hematology (test code = MCHC) 29.5 g/dL 32.0-36.0 L Hematology (test code = RDW) 22.7 % 11.5-14.5 H Hematology (test code = PLTT) 315 thou/uL 130-400 N Hematology (test code = MPV) 5.3 fL 7.4-10.4 L Type [id number] 11:29:00 Test Item Value Reference Range Interpretation Comments Blood Type Rh (test code = BT) O POSITIVE Antibody Screen (test code = ABSC) NEGATIVE Received Blood Or Been w/in Past 90 Days? UNKNOWNReceived Blood Or Been w/in Past 90 Days? NOScheduled Surgery Date: NO SURGERYIs Surgery Date Greater than 7 days from now? NOPacked Cells - [id number] 11:29:00 [id number] OP LRPC TFUSE 01/06/18 [id number] 05:27:00 Test Item Value Reference Range Interpretation Comments Chemistry (test code 143 mmol/L 136-145 N = NA-T) Chemistry (test code 3.2 mmol/L 3.5-5.1 L = K-T) Chemistry (test code 107 mmol/L 98-107 N = CL) Chemistry (test code 30 mmol/L 23-31 N = CO2) Chemistry (test code 9 mmol/L 10-20 L = ANGP) Chemistry (test code 8 mg/dL 9.8-20.1 L = BUN) Chemistry (test code 0.76 mg/dL 0.6-1.1 N = CREATT) Chemistry (test code 77 Referen ce Range for = EGFRMDRD) Estimated GFR: Great er than 90 mL/min/1.73 m2NOTE:The MDRD equation has no t been validated for u se with theelderly (ove r 70 years of age), women, patientswith se rious comorbid condit ion or persons with ex tremes ofbody size, mu scle mass, or nutrit ional status. Chemistry (test code 91 mg/dL 80-115 N = GLU-T) Chemistry (test code 8.1 mg/dL 7.8-10.44 N = CA) Chemistry (test code 1.0 mg/dL 0.2-1.2 N = TBILI) Chemistry (test code 5.5 g/dL 6.0-8.3 L = TP) Chemistry (test code 3.2 g/dL 3.4-4.8 L = ALB) Chemistry (test code 2.3 g/dL 2.4-3.5 L = GLOB) Chemistry (test code 1.4 g/dL 1.2-2.2 N = AG) Chemistry (test code 113 U/L 40-150 N = ALP) Chemistry (test code 144 U/L 5-34 H = AST) Chemistry (test code 149 U/L 8-55 H = ALT) [id number] 05:18:00 Test Item Value Reference Range Interpretation Comments Hematology (test code = WBCT) 7.5 thou/uL 4.8-10.8 N Hematology (test code = RBCT) 3.33 mill/uL 4.20-5.40 L Hematology (test code = HGBT) 6.4 g/dL 12.0-16.0 L Hematology (test code = HCTT) 22.2 % 36.0-47.0 L Hematology (test code = MCV) 66.5 fl 81.0-99.0 L Hematology (test code = MCH) 19.1 pg 27.0-31.0 L Hematology (test code = MCHC) 28.8 g/dL 32.0-36.0 L Hematology (test code = RDW) 20.7 % 11.5-14.5 H Hematology (test code = PLTT) 310 thou/uL 130-400 N Hematology (test code = MPV) 10.7 fL 7.4-10.4 H Hematology (test code = %NEUT) 61.4 % 42.0-75.0 N Hematology (test code = %LYMPH) 31.4 % 21.0-51.0 N Hematology (test code = %MONO) 7.0 % 0.0-10.0 N Hematology (test code = %EOS) 0.2 % 0.0-10.0 N Hematology (test code = %BASO) 0.1 % 0.0-1.0 N Hematology (test code = NEUT#) 4.6 thou/uL 1.40-6.50 N Hematology (test code = LYMPH#) 2.4 thou/uL 1.20-3.40 N Hematology (test code = MONO#) 0.5 thou/uL 0.11-0.59 N Hematology (test code = EOS#) 0.0 thou/uL 0.0-0.7 N Hematology (test code = BASO#) 0.0 thou/uL 0.0-0.2 N Chemistry - [id number] 00:59:00 Test Item Value Reference Range Interpretation Comments Chemistry - Specials (test Non-Reactive NonReactive code = THEPAIGM) Chemistry - Specials (test Non-Reactive S/CO NonReactive code = THBSAG) Chemistry - Specials (test Non-Reactive NonReactive code = INTHBCM) Chemistry - Specials (test Non-Reactive NonReactive code = INTHEPC) Chemistry - BNP, HgbA1c, [id number] 19:45:00 Test Item Value Reference Range Interpretation Comments Chemistry - BNP, HgbA1c, PTHi 100.4 pg/mL 0-100 H (test code = BNP) Comment add [id number] 19:38:00 Test Item Value Reference Range Interpretation Comments Chemistry (test 1.5 ng/mL 0-6.6 N code = CKMBM-T) Chemistry (test Less than < 0.028 code = TROPI-T) 0.010 ng/mL Reference Ra nge 0. 00 - 0.028 ng/mL Negative 0.029 - 0.29 n g/mL Indeterminate Greater or Equa l to 0.3 ng/mL St rongly suggests SC Comment add onChemistry - [id number] 18:21:00 Test Item Value Reference Range Interpretation Comments Chemistry - Specials (test code = 24.27 ng/mL 10-291 N LINDSAY) [id number] 18:14:00 Test Item Value Reference Range Interpretation Comments Hematology (test code = 7.0 thou/uL 4.8-10.8 N WBCT) Hematology (test code = 3.73 mill/uL 4.20-5.40 L RBCT) Hematology (test code = 7.1 g/dL 12.0-16.0 L HGBT) Hematology (test code = 24.6 % 36.0-47.0 L HCTT) Hematology (test code = 66.1 fl 81.0-99.0 L MCV) Hematology (test code = 19.1 pg 27.0-31.0 L MCH) Hematology (test code = 29.0 g/dL 32.0-36.0 L MCHC) Hematology (test code = 20.7 % 11.5-14.5 H RDW) Hematology (test code = 335 thou/uL 130-400 N PLTT) Hematology (test code = 5.0 fL 7.4-10.4 L MPV) Hematology (test code = 72.6 % 42.0-75.0 N %NEUT) Hematology (test code = 20.6 % 21.0-51.0 L %LYMPH) Hematology (test code = 6.2 % 0.0-10.0 N %MONO) Hematology (test code = 0.2 % 0.0-10.0 N %EOS) Hematology (test code = 0.4 % 0.0-1.0 N %BASO) Hematology (test code = 5.1 thou/uL 1.40-6.50 N NEUT#) Hematology (test code = 1.4 thou/uL 1.20-3.40 N LYMPH#) Hematology (test code = 0.4 thou/uL 0.11-0.59 N MONO#) Hematology (test code = 0.0 thou/uL 0.0-0.7 N EOS#) Hematology (test code = 0.0 thou/uL 0.0-0.2 N BASO#) Hematology (test code = MODERATE=16-30 cells 0-5/hpf AN) (100X) Hematology (test code = SLIGHT = 6-15 cells 0-5/hpf PO) (100X) Hematology (test code = MODERATE=15-30 cells 0-5/hpf SC) (100X) Hematology (test code = SLIGHT = 6-15 cells 0-5/hpf HYPO) (100X) Hematology (test code = MODERATE = 3-4 cells 0-2/hpf POLY) (100X) Hematology (test code = SLIGHT = 2-5 cells 0-1/hpf SC) (100X) Hematology (test code = SLIGHT = 2-5 cells 0-1/hpf OV) (100X) Hematology (test code = SLIGHT = 2-5 cells 0-1/hpf EL) (100X) Hematology (test code = SLIGHT = 2-5 cells 0-1/hpf TE) (100X) Hematology (test code = Appears Adequate PCOMMENT) [id number] 17:59:00 Test Item Value Reference Range Interpretation Comments Chemistry (test code 142 mmol/L 136-145 N = NA-T) Chemistry (test code 4.1 mmol/L 3.5-5.1 N = K-T) Chemistry (test code 106 mmol/L 98-107 N = CL) Chemistry (test code 27 mmol/L 23-31 N = CO2) Chemistry (test code 13 mmol/L 10-20 N = ANGP) Chemistry (test code 13 mg/dL 9.8-20.1 N = BUN) Chemistry (test code 0.80 mg/dL 0.6-1.1 N = CREATT) Chemistry (test code 73 Referen ce Range for = EGFRMDRD) Estimated GFR: Great er than 90 mL/min/1.73 m2NOTE:The MDRD equation has no t been validated for u se with theelderly (ove r 70 years of age), women, patientswith se rious comorbid condit ion or persons with ex tremes ofbody size, mu scle mass, or nutrit ional status. Chemistry (test code 83 mg/dL 80-115 N = GLU-T) Chemistry (test code 8.6 mg/dL 7.8-10.44 N = CA) Chemistry (test code 0.9 mg/dL 0.2-1.2 N = TBILI) Chemistry (test code 6.4 g/dL 6.0-8.3 N = TP) Chemistry (test code 3.7 g/dL 3.4-4.8 N = ALB) Chemistry (test code 2.7 g/dL 2.4-3.5 N = GLOB) Chemistry (test code 1.4 g/dL 1.2-2.2 N = AG) Chemistry (test code 132 U/L 40-150 N = ALP) Chemistry (test code 340 U/L 5-34 H = AST) Chemistry (test code 220 U/L 8-55 H = ALT) [id number] 17:59:00 Test Item Value Reference Range Interpretation Comments Chemistry (test code = IRON) 15 ug/dL 50-170 L [id number] 17:59:00 Test Item Value Reference Range Interpretation Comments Chemistry (test code = TIBC) 386 mcg/dL 265-497 N [id number] 17:50:00 Test Item Value Reference Range Interpretation Comments Coagulation (test 13.3 SEC 12.0-14.7 N code = PT-T) Coagulation (test 1.0 ATTENTION: code = INR) READ CAREFULLY-- The recommended the rapeutic ranges for oral anticoagulanttr eatments are: ------ Low Intensity: 1.5 - 2.0 Moderate In tensity: 2.0 - 3.0 High Intensity (1): 2.5 - 3.5 High In tensity (2): 3.0 - 4. 0 CRITICAL: > 4.0 Anticoagulant? NONEMedical Necessity SUSPECT COAGULOPATHYAnticoagulant? NONEMedical Necessity: SUSP [id number] 17:50:00 Test Item Value Reference Range Interpretation Comments Coagulation (test code = PTT) 23.4 SEC 22.9-36.1 N Anticoagulant? NONEMedical Necessity SUSPECT COAGULOPATHYAnticoagulant? NONEMedical Necessity: SUSP COAG
[2020-08-26] MEDS ORDERED: IPRATROPIUM BROM 0.5MG/2.5ML ONE (04:07)
[2020-08-26] MEDS ORDERED: METHYLPREDNISOLONE 125 MG INJ ONE (04:07)
[2020-08-26] MEDS ORDERED: ALBUTEROL 2.5 MG/3 ML NEB SOL ONE (04:07)
[2020-08-26 04:23] LABS: Absolute Lymphocytes (CBC) 3.6 K/uL (0.7-4.9); Basophils % 0.4 % (0-1.3); Lymphocytes % 33.1 % (15.3-44.8); MPV 8.1 fL (7.6-11.3); RBC Red Blood Cell Count 4.91 M/uL (3.86-4.86)
[2020-08-26 04:25] LABS: Protime INR 0.86
[2020-08-26 04:35] LABS: ALT/SGPT 25 U/L (12-78); AST/SGOT 21 U/L (15-37); Albumin 3.4 g/dL (3.4-5.0); Alkaline Phosphatase 101 U/L (45-117); BUN Blood Urea Nitrogen 15 mg/dL (7-18); Bicarbonate 30 mmol/L (21-32); Bilirubin Direct 0.2 mg/dL (0-0.2); Bilirubin Total 0.6 mg/dL (0.2-1.0); Glucose Level 77 mg/dL (74-106); Magnesium 2.4 mg/dL (1.8-2.4); NT PRO-BNP 1207 pg/mL (<125); Potassium 3.3 mmol/L (3.5-5.1); Sodium Level 143 mmol/L (136-145); Troponin (Emerg Dept Use Only) < 0.02 ng/mL (0.0-0.045)
--- NOTE | 2020-08-26 05:30 | EDPHYS ---
Physician Documentation [facility] Name: Irma Cain Age: 65 yrs Sex: Female : 1955 Arrival Date: 08/26/2020 Time: 03:34 Bed 7 Private MD: ED Physician Marco Castellanos HPI: 08/26 03:46 This 65 yrs old Female presents to ER via EMS with complaints of Shortness Of mh7 Breath. 03:46 The patient has shortness of breath at rest. mh7 03:46 Onset: The symptoms/episode began/occurred last night. Duration: The symptoms are mh7 continuous, but are markedly better than the original presentation. The patient's shortness of breath is aggravated by nothing, is alleviated by nothing. Associated signs and symptoms: Pertinent negatives: chest pain, non-productive cough, productive cough, diaphoresis, dizziness, fever, hemoptysis, loss of consciousness, nausea, numbness in extremities, visual changes, vomiting. Severity of symptoms: At their worst the symptoms were moderate today, in the emergency department the symptoms have improved markedly. Historical: - Allergies: 03:39 Aspirin; em 03:39 Benadryl; em 03:39 Neosporin ([id number]-rih-lkkyu); em 03:39 NSAIDS; em 03:39 Talwin; em - PMHx: 03:39 Anemia; Anxiety; Asthma; basal cell carcinoma; Depression; Hypertension; Osteoporosis; em - Immunization history:: Adult Immunizations up to date. - Social history:: Smoking status: Patient denies any tobacco usage or history of. ROS: 03:46 Constitutional: Negative for fever, chills, and weight loss, Eyes: Negative for injury, mh7 pain, redness, and discharge, ENT: Negative for injury, pain, and discharge, Neck: Negative for injury, pain, and swelling, Cardiovascular: Negative for chest pain, palpitations, and edema, Abdomen/GI: Negative for abdominal pain, nausea, vomiting, diarrhea, and constipation, Back: Negative for injury and pain, : Negative for injury, bleeding, discharge, and swelling, MS/Extremity: Negative for injury and deformity, Skin: Negative for injury, rash, and discoloration, Neuro: Negative for headache, weakness, numbness, tingling, and seizure, Psych: Negative for depression, anxiety, suicide ideation, homicidal ideation, and hallucinations, Allergy/Immunology: Negative for hives, rash, and allergies, Endocrine: Negative for neck swelling, polydipsia, polyuria, polyphagia, and marked weight changes, Hematologic/Lymphatic: Negative for swollen nodes, abnormal bleeding, and unusual bruising. Exam: 03:46 Constitutional: This is a well developed, well nourished patient who is awake, alert, mh7 and in no acute distress. Head/Face: Normocephalic, atraumatic. Eyes: Pupils equal round and reactive to light, extra-ocular motions intact. Lids and lashes normal. Conjunctiva and sclera are non-icteric and not injected. Cornea within normal limits. Periorbital areas with no swelling, redness, or edema. Neck: Trachea midline, no thyromegaly or masses palpated, and no cervical lymphadenopathy. Supple, full range of motion without nuchal rigidity, or vertebral point tenderness. No Meningismus. Chest/axilla: Normal chest wall appearance and motion. Nontender with no deformity. No lesions are appreciated. Cardiovascular: Regular rate and rhythm with a normal S1 and S2. No gallops, murmurs, or rubs. Normal PMI, no JVD. No pulse deficits. 03:46 Abdomen/GI: Soft, non-tender, with normal bowel sounds. No distension or tympany. No guarding or rebound. No evidence of tenderness throughout. Back: No spinal tenderness. No costovertebral tenderness. Full range of motion. Skin: Warm, dry with normal turgor. Normal color with no rashes, no lesions, and no evidence of cellulitis. MS/ Extremity: Pulses equal, no cyanosis. Neurovascular intact. Full, normal range of motion. Neuro: Awake and alert, GCS 15, oriented to person, place, time, and situation. Cranial nerves II-XII grossly intact. Motor strength 5/5 in all extremities. Sensory grossly intact. Cerebellar exam normal. Normal gait. Psych: Awake, alert, with orientation to person, place and time. Behavior, mood, and affect are within normal limits. 03:46 Respiratory: the patient does not display signs of respiratory distress, Respirations: prolonged exhalation, that is mild, Breath sounds: wheezing: expiratory that is mild, is heard diffusely, Respiratory rate: 22 Vital Signs: 03:34 BP 187 / 82; Pulse 91; Resp 22; Temp 98.0(O); Pulse Ox 98% on R/A; Weight 52.16 kg; em Height 5 ft. 0 in. (152.40 cm); Pain 0/10; 05:41 BP 154 / 58; Pulse 88; Resp 20; Temp 98; Pulse Ox 100% ; ea 03:34 Body Mass Index 22.46 (52.16 kg, 152.40 cm) em MDM: 05:28 Differential diagnosis: Anemia Anxiety Reaction asthma, Bronchitis CHF exacerbation, mh7 Chronic Obstructive Pulmonary Disease Myocardial Infarction pneumonia, Pneumothorax Psychogenic pulmonary edema, reactive airway disease. Data reviewed: vital signs, nurses notes, old medical records, lab test result(s), cardiac enzymes, CBC, electrolytes, urinalysis, EKG, radiologic studies, plain films. Data interpreted: Pulse oximetry: on room air is 98 %. Interpretation: normal. Counseling: I had a detailed discussion with the patient and/or guardian regarding: the historical points, exam findings, and any diagnostic results supporting the discharge/admit diagnosis, the presence of at least one elevated blood pressure reading (>120/80) during this emergency department visit, lab results, radiology results, the need for outpatient follow up, to return to the emergency department if symptoms worsen or persist or if there are any questions or concerns that arise at home. Response to treatment: the patient's symptoms have resolved after treatment, the patient's blood pressure is in an acceptable range, mental status has returned to baseline, the patient no longer shows bradycardia, the patient is not short of breath, the patient is not tachycardic, the patient's pain is gone, the patient's temperature has normalized. 05:30 Patient medically screened. 08/26 03:46 Order name: Basic Metabolic Panel; Complete Time: 04:56 08/26 03:46 Order name: CBC with Diff; Complete Time: 04:56 08/26 03:46 Order name: LFT's; Complete Time: 04:56 08/26 03:46 Order name: Magnesium; Complete Time: 04:56 08/26 03:46 Order name: NT PRO-BNP; Complete Time: 04:56 08/26 03:46 Order name: PT-INR; Complete Time: 04:56 08/26 03:46 Order name: Troponin (emerg Dept Use Only); Complete Time: 04:56 [facility] 08/26 03:46 Order name: XRAY Chest (1 view) [facility] 08/26 03:46 Order name: EKG; Complete Time: 03:47 [facility] 08/26 03:46 Order name: Cardiac monitoring; Complete Time: 04:04 [facility] 08/26 03:46 Order name: EKG - Nurse/Tech; Complete Time: 04:04 [facility] 08/26 03:46 Order name: IV Saline Lock; Complete Time: 04:04 [facility] 08/26 03:46 Order name: Labs collected and sent; Complete Time: 04:04 [facility] 08/26 03:46 Order name: O2 Per Protocol; Complete Time: 04:04 [facility] 08/26 03:46 Order name: O2 Sat Monitoring; Complete Time: 04:04 [facility] Administered Medications: 04:04 Drug: SOLU-Medrol 125 mg Route: IVP; Site: right antecubital; ea 05:42 Follow up: Response: No adverse reaction ea 04:09 Drug: Albuterol - atroVENT (3:1) (2.5 mg - 0.5 mg) 3 ml Route: Nebulizer; ea 05:42 Follow up: Response: No adverse reaction ea Disposition: 08/26/20 05:30 Discharged to Home. Impression: Asthma Exacerbation. - Condition is Stable. - Discharge Instructions: Asthma, Adult, [id number]. - Prescriptions for Albuterol Sulfate 2.5 mg /3 mL (0.083 %) Inhalation Solution for Nebulization - inhale 1 unit by NEBULIZATION route every 8 hours As needed; 1 box. Prednisone 20 mg Oral Tablet - take 2 tablet by ORAL route once daily for 5 days; 10 tablet. - Medication Reconciliation Form, Thank You Letter, Antibiotic Education, Prescription Opioid Use form. - Follow up: Private Physician; When: 1 - 2 days; Reason: Worsening of condition, Recheck today's complaints, Continuance of care, Re-evaluation by your physician. - Problem is an acute exacerbation. - Symptoms have improved. Signatures: Dispatcher [employer] Miguel Kelly RN RN em Antunez, Elena, RN RN ea Holmes, Maurice, MD MD 7 Corrections: (The following items were deleted from the chart) 05:42 05:30 08/26/2020 05:30 Discharged to Home. Impression: Asthma Exacerbation. Condition ea is Stable. Forms are Medication Reconciliation Form, Thank You Letter, Antibiotic Education, Prescription Opioid Use. Follow up: Private Physician; When: 1 - 2 days; Reason: Worsening of condition, Recheck today's complaints, Continuance of care, Re-evaluation by your physician. Problem is an acute exacerbation. Symptoms have improved. mh7
--- NOTE | 2020-08-26 05:30 | ER ---
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 Coronavirus screen: shortness of breath, Client presents with at least one sign or symptom that may indicate coronavirus-19. Standard/surgical mask placed on the client. Provider contacted for isolation considerations. Ebola Screen: Patient negative for fever greater than or equal to 101.5 degrees Fahrenheit, and additional compatible Ebola Virus Disease symptoms Patient denies exposure to infectious person. Initial Sepsis Screen: Does the patient meet any 2 criteria? HR > 90 bpm. No. Patient's initial sepsis screen is negative. Does the patient have a suspected source of infection? No. Patient's initial sepsis screen is negative. Risk Assessment: Do you want to hurt yourself or someone else? Patient reports no desire to harm self or others. Onset of symptoms was August 26, 2020. 03:34 Method Of Arrival: EMS: [facility] em 03:34 Acuity: FELA 3 em Historical: - Allergies: 03:39 Aspirin; em 03:39 Benadryl; em 03:39 Neosporin (ybh-oap-lomkb); em 03:39 NSAIDS; em 03:39 Talwin; em - PMHx: 03:39 Anemia; Anxiety; Asthma; basal cell carcinoma; Depression; Hypertension; Osteoporosis; em - Immunization history:: Adult Immunizations up to date. - Social history:: Smoking status: Patient denies any tobacco usage or history of. Screenin:40 Abuse screen: Denies threats or abuse. Nutritional screening: No deficits noted. ea Tuberculosis screening: No symptoms or risk factors identified. 03:40 Fall Risk IV access (20 points). ea Assessment: 03:40 General: Appears uncomfortable, Behavior is appropriate for age. Pain: Denies pain. ea Neuro: Level of Consciousness is awake, alert, obeys commands, Oriented to person, place, time, situation. Cardiovascular: Patient's skin is warm and dry. Respiratory: Airway is patent Respiratory effort is labored, Respiratory pattern is tachypnea Breath sounds with wheezes. Derm: Skin is pink, warm \T\ dry. 05:40 Reassessment: Patient and/or family updated on plan of care and expected duration. Pain ea level reassessed. Patient is alert, oriented x 3, equal unlabored respirations, skin warm/dry/pink. Discharge instruction given to patient verbalized the understanding of instruction. Pt left ED ambulatory tolerating well. Pt left ED ambulatory tolerating well. Vital Signs: 03:34 BP 187 / 82; Pulse 91; Resp 22; Temp 98.0(O); Pulse Ox 98% on R/A; Weight 52.16 kg; em Height 5 ft. 0 in. (152.40 cm); Pain 0/10; 05:41 BP 154 / 58; Pulse 88; Resp 20; Temp 98; Pulse Ox 100% ; ea 03:34 Body Mass Index 22.46 (52.16 kg, 152.40 cm) em ED Course: 03:34 Patient arrived in ED. em 03:37 Triage completed. em 03:38 Marco Castellanos MD is Attending Physician. [facility] 03:39 Arm band placed on. em 03:40 Patient has correct armband on for positive identification. Bed in low position. Call ea light in reach. Side rails up X 1. 03:40 Inserted saline lock: 22 gauge in right antecubital area, using aseptic technique. ea Blood collected. 03:47 Kenyatta Schuster, CANDACE is Primary Nurse. ea 04:28 XRAY Chest (1 view) In Process Unspecified. EDMS 05:41 No provider procedures requiring assistance completed. IV discontinued, intact, ea bleeding controlled, No redness/swelling at site. Pressure dressing applied. Administered Medications: 04:04 Drug: SOLU-Medrol 125 mg Route: IVP; Site: right antecubital; ea 05:42 Follow up: Response: No adverse reaction ea 04:09 Drug: Albuterol - atroVENT (3:1) (2.5 mg - 0.5 mg) 3 ml Route: Nebulizer; ea 05:42 Follow up: Response: No adverse reaction ea Outcome: 05:30 Discharge ordered by . 7 05:41 Discharged to home ambulatory, with family. ea 05:41 Condition: stable 05:41 Discharge instructions given to patient, Instructed on discharge instructions, follow up and referral plans. medication usage, Demonstrated understanding of instructions, follow-up care, medications, Prescriptions given X 2. 05:42 Patient left the ED. ea Signatures: Dispatcher [employer] EDMiguel Perez RN RN em Antunez, Elena, RN RN ea Holmes, Maurice, MD MD mh7
[2020-08-26 05:48] VITALS: BP 154/58; TEMP 98; O2SAT 100
--- NOTE | 2020-08-26 08:18 | EKG ---
Test Date: 2020-08-26 Test Time: 03:55:52 Cad Draftsman: HIRAM MEASUREMENT RESULTS: Intervals: Rate: 87 NM: 146 QRSD: 64 QT: 404 QTc: 486 Chauvin: P: 75 NM: 146 QRS: 69 T: 57 INTERPRETIVE STATEMENTS: Normal sinus rhythm ST & T wave abnormality, consider lateral ischemia Prolonged QT Abnormal ECG Compared to ECG 03/04/2019 14:52:51 ST (T wave) deviation now present Possible ischemia now present Prolonged QT interval now present Sinus tachycardia no longer present Electronically Signed On 08-26-20 08:17:32 REGULATORY COMPLIANCE DIRECTOR by Francisco Francis
--- NOTE | 2020-08-26 11:37 | RAD REPORT ---
EXAM DESCRIPTION: RAD - Chest Single View - 08/26/2020 4:29 am CLINICAL HISTORY: SOB TECHNIQUE: Single frontal view of the chest is submitted. COMPARISON: None available for comparison FINDINGS: Lungs: No focal consolidation. Pleura: No appreciable effusion. No pneumothorax. Heart: The cardiothoracic silhouette is within normal limits. Mediastinum: Unremarkable Bones: Intact Upper abdomen: Unremarkable IMPRESSION: No acute disease. Electronically signed by: Javier Richardson MD 08/26/2020 4:34 AM INSURANCE EXAMINING CLERK Due to temporary technical issues with the PACS/Fluency reporting system, reports are being signed by the in house radiologist without review as a courtesy to ensure prompt reporting. The interpreting r adiologist is fully responsible for the content of the report.
== END 2020-08-26 05:42 | disposition home or self-care (01) ==
LOC: ER 03:32
DX: J45.901 Unspecified asthma with (acute) exacerbation (principal); Z88.6 Allergy status to analgesic agent
CPT/HCPCS: 93005; 85025; 80048; 36415; 83735; 85610; 80076; 84484; 83880; 71045; 96374; 99284; J2930

== ENCOUNTER 2020-11-14 09:08 | Emergency (ER) | payer OTHER ==
--- OUTSIDE RECORDS SUMMARY | 2020-11-14 09:13 | XMS REPORT | Continuity of Care Document ---
:1955 Author Organization [facility] t Address [address] [place] [address] Care Team Providers Name Role Phone Enma [...] Allergy 01-16 [facility] Diphenhy Drug Active Anaphylaxis, CH I St [...] Date Stop Date Quantity Comments Source History [facility] Std Drinks Medica l Center History [facility] - Alcohol Binge Medical Radha ter Sex Assigned At [facility] - Medical [place] Tobacco use and 2019-03-06 2019-03-06 Never used [facility] exposure 00:00:00 00:00:00 [facility] Alcohol intake 2019-03-06 2019-03-[address] - 00:00:00 00:00:00 non-drinker of Medical Ce nter alcohol (finding) History SDOH 2019-01-18 2019-01-[address] [facility] - Alcohol Frequency 00:00:00 00:00:00 [facility] Smoking Status Start Date Stop Date Source Never smoker [facility] edical [facility] Medications [...] 14:49: mouth Medic al tablet 19 daily. [place] albuterol Yes 1{puff} Inhale 1 C HI [...] C enter of colon (procedure) [code = 560178787] Future Scheduled 2020-03-[address] [facility] Test 00:00:00 (#1) [code = [facility] INFLUENZA VACCINE (#1)] Future Scheduled 2019-07-[address] [facility] - Test 00:00:00 WELLNESS (YEAR 2 or Medical Center FIRST YEAR if no IPPE) [code = MEDICARE ANNUAL WELLNESS (YEAR 2 or FIRST YEAR if no IPPE)] Future Scheduled 2001-02-[address] [facility] Test 00:00:00 (procedure) [code = [facility] 46020839] Future Scheduled 1977-02-[address] [facility] - Test 00:00:00 malignant neoplasm Medical C enter of cervix (procedure) [code = 467432978] Future Scheduled [address] [facility] - Test 00:00:00 malignant neoplasm Medical C enter of breast (procedure) [code = 823603697] Encounters Start End Encounter Admission Attending Care Care Encounter Source Date/Time Date/Time Type Type Clinicians Facility Department ID 2020-03-28 2020-03-[address] [facility] [id number] 20:48:00 00:17:00 Maribell Pena [id number] [place] 4.2.7.2.686 [place] [id number] 2020-02-23 2020-02-23 Transition Abelino Conteh [id number] 00:00:00 00:00:00 of Care Demetrio Galeas 350.1.13.10 [place] 4.2.7.2.686 [id number] 2020-02-21 2020-02-22 Emergency Titi Hahn [facility] [id number] 09:30:54 20:01:00 TavoPrashanth Jean 350.1.13.10 [place] 4.2.7.2.686 [place] [id number] 2020-02-21 2020-02-21 Telemedici Enma [facility] 1.2.840.114 [id number] 07:44:24 10:48:34 ne Visit Shannan Pena 350.1.13.10 [place] 4.2.7.2.686 [id number] [facility]44 Building Results Test Description Test Time Test Comments Results Result [facility] e Comments TISSUE EXAM 2019-03-07 Surgical Pathology Report 19:32:00 Case: [id number] Authorizing Provider: Leanna Perez MD Collected: 03/06/2019 0850 Ordering Location: [address] Received: 03/06/2019 1421 Service Pathologist: Radha [...] MALIGNANCY NOTED Signing Pathologist Direct Phone Line: [phone] y signed by Radha Fuentes MD on 03/07/2019 at 7:32 [id number] X 2; [id number] and postop diagnosis: anemia A. Duodenum random [...] evaluated Immunohistochemistry technical testing was performed at [facility], Pathology Laboratory where it was developed [...] IS NOT APPLICABLE FOR DIALYSIS PATIENTS. PROTHROMBIN TIME/[id number] 07:23:00 Test Item Value Reference Range Interpretation [...] mechanical heart valves.CBC W/PLT COUNT & AUTO [id number] 07:16:00 Test Item Value Reference Range Interpretation [...] (BEAKER) (test code = 2801) HEMOGLOBIN AND [id number] 22:37:00 Test Item Value Reference Range Interpretation Comments HEMOGLOBIN (BEAKER) (test code = 7.5 GM/DL 11.2-15.7 L 410) HEMATOCRIT (BEAKER) (test code = 26.8 % 34.1-44.9 L 411) HEMOGLOBIN AND [id number] 10:01:00 Test Item Value Reference Range Interpretation Comments HEMOGLOBIN (BEAKER) (test code = 8.1 GM/DL 11.2-15.7 L 410) HEMATOCRIT (BEAKER) (test code = 28.9 % 34.1-44.9 L 411) VITAMIN D, 22-[id number] 09:22:00 Test Item Value Reference Range Interpretation Comments VITAMIN D 25-OH (BEAKER) (test code 5.7 ng/mL 6.6-49.9 L = 2764) Effective 05/05/2017: Reference Range ChangeNew: 6.6-49.9 ng/mL Previous: 13.0-47.8 ng/mLRecommended Vitamin D Target Range: 30.0-40.0 ng/mLCOMPREHENSIVE METABOLIC [id number] 08:49:00 Test Item Value Reference Range Interpretation [...] (test code = 2590) TSH/FREE T4 IF [id number] 06:46:00 Test Item Value Reference Range Interpretation Comments THYROID STIMULATING HORMONE 0.90 uIU/mL 0.35-4.94 (BEAKER) (test code = 772) VITAMIN B12 AND [id number] 06:46:00 Test Item Value Reference Range Interpretation [...] (BEAKER) (test code = 413) HEMOGLOBIN AND [id number] 23:36:00 Test Item Value Reference Range Interpretation Comments HEMOGLOBIN (BEAKER) (test code = 6.0 GM/DL 11.2-15.7 LL 410) HEMATOCRIT (LILLY) (test code = 22.6 % 34.1-44.9 L 411) TISSUE [id number] 15:28:00Surgical Pathology Report Case: [id number] Authorizing Provider: Criss Monroe MD Collected: 01/18/2019 0930 Ordering Location: [address] Received: 01/18/2019 1359 Service Pathologist: Sola Kingston MD Specimen: Polyp, Colon - Sigmoid COLON, SIGMOID POLYP, POLYPECTOMY- TUBULAR ADENOMA- HIGH GRADE DYSPLASIA NOT SEEN Signing Pathologist Direct Phone Line: [phone] signed by Sola Kingston MD on 01/19/2019 at 3:28 [id number] and postoperative diagnosis: Other iron deficiency anemiaReceived in one part. Polyp, colon-sigmoidReceived in formalin labeled with the patient's name, accession number and "polyp, colon-sigmoid" is a 0.4-cm pino polyp which is submitted in toto in A1. CG/bc Performed.FL, UGI, WITHOUT [id number] 13:45:00Reason for exam:->Suggestion of large hiatal hernia [...] Orellanaort Verified Date/Time: 01/19/2019 13:45:41 Reading Location: [address] Consult Reading Room [facility] METABOLIC [id number] 08:32:00 Test Item Value Reference Range Interpretation [...] (test code = 413) VITAMIN B12 AND [id number] 05:50:00 Test Item Value Reference Range Interpretation Comments VITAMIN B12 (BEAKER) (test code = 323 pg/mL 213-816 774) FOLATE (BEAKER) (test code = 362) 11.0 ng/mL >=7.0 BASIC METABOLIC [id number] 05:46:00 Test Item Value Reference Range Interpretation [...] (BEAKER) (test code = 413) BASIC METABOLIC [id number] 06:19:00 Test Item Value Reference Range Interpretation [...] Specimen slightly ictericCBC W/PLT COUNT & AUTO [id number] 05:36:00 Test Item Value Reference Range Interpretation [...] = 2801) CBC W/PLT COUNT & AUTO [id number] 22:19:00 Test Item Value Reference Range Interpretation [...] = 2801) CBC W/PLT COUNT & AUTO [id number] 13:07:00 Test Item Value Reference Range Interpretation [...] PERCENT (BEAKER) (test code = 2801) PROTHROMBIN TIME/[id number] 09:14:00 Test Item Value Reference Range Interpretation [...] PATIEN TS. CBC W/PLT COUNT & AUTO [id number] 07:07:00 Test Item Value Reference Range Interpretation [...] (BEAKER) (test code = 2801) BASIC METABOLIC [id number] 01:47:00 Test Item Value Reference Range Interpretation [...] PATIEN TS. CBC W/PLT COUNT & AUTO [id number] 01:42:00 Test Item Value Reference Range Interpretation [...] (BEAKER) (test code = 2801) Reference Lab [id number] 14:16:00 Test Item Value Reference Range Interpretation Comments Reference Lab Testing Negative Negative Perfor med at: BN - (test code = HELIAG) [facility] [address] [place], [place] [address]Pn b Director: Dioni Jenkins MD, Radha ne: [phone] SURGICAL PATHOLOGY, LEVEL [id number] 13:33:[address] [address] Laboratory Printed: 01/10/18 1333 [facility] DAEMPathology Page: 1 Patient: CORNELIO RUFFIN Birthdate: 1955 Age/Sex: 62/F Spec#: [id number]: Tyrell Patino MD Specimen Date: 01/07/18 Received Date: 01/07/18 Specimen: POLYP, COLON CLINICAL DIAGNOSIS anemia PATHOLOGIC DIAGNOSIS Cecal polyp, polypectomy: - Tubular adenoma. Comment:There is no high grade dysplasia or malignancy present. Pathologist:Crystal Brumfield MD Entered by:01/10/18 - 1256 LAB.YGP PROCEDURES: 88268 GROSS DESCRIPTION A. POLYP,COLON CECUM The specimen [...] LAB.YGP Patient: CORNELIO RUFFIN Re01/05/18Loc: T4-A MR#: [id number] CONTINUED ON NEXT PAGE Dis: 01/08/18ta: DIS IN --- --------- [place] [address] Laboratory Printed: 01/10/[address] [place] [address] [facility] Page: 2 Patient: CORNELIO RUFFIN [id number] (Continued) GROSS DESCRIPTION (Continued) MICROSCOPIC DESCRIPTION A microscopic examination was performed to arrive at the diagnostic conclusion reported. Signed (Electronically Signed) Crystal Brumfield MD 01/10/18 --------- --- Patient: CORNELIO RUFFIN Re01/05/18Loc: T4-A MR#: [id number] END OF REPORT Dis: 01/08/18ta: DIS [id number] 11:30:00 Test Item Value Reference Range Interpretation [...] 8.9 mg/dL 7.8-10.44 N code = CA) [id number] 06:56:00 Test Item Value Reference Range Interpretation Comments Chemistry (test code = MG) 1.8 mg/dL 1.6-2.6 N Comment Add to AM labsComment Add to AM [id number] 06:56:00 Test Item Value Reference Range Interpretation [...] s in terms of LDL) risk for hcen ry heart disease: Desirable: Less than 130 [...] Add to AM labsComment Add to AM [id number] 04:30:00 Test Item Value Reference Range Interpretation [...] code = BASO#) 0.1 thou/uL 0.0-0.2 N [id number] 04:24:00 Test Item Value Reference Range Interpretation [...] 8.9 mg/dL 7.8-10.44 N code = CA) [id number] 15:26:00 Test Item Value Reference Range Interpretation Comments Hematology (test code = HGBT) 8.8 g/dL 12.0-16.0 L Hematology (test code = HCTT) 29.5 % 36.0-47.0 L [address] SURGICAL PATHOLOGY, LEVEL [id number] 14:22:[address] [address] Laboratory Printed: 01/07/[address] [place] [address] DAEMPathology Page: 1 Patient: CORNELIO RUFFIN Birthdate: 1955 Age/Sex: 62/F Spec#: [id number]: Tyrell Patino MD Specimen Date: [...] MD Entered by:01/07/18 - 1117 LAB.YGP PROCEDURES: 85833/2,95005/2, 79628 Patient: CORNELIO RUFFIN Re01/05/18Loc:T4-A MR#: [id number] CONTINUED ON NEXT PAGE Dis: Sta: ADM IN - [address] [address] Laboratory Printed: 01/07/[address] [place] [address] [facility] Page: 2 Patient: CORNELIO RUFFIN [id number] (Continued) GROSS DESCRIPTION A. GASTRIC BIOPSY The [...] by: Tina Kimball Entered by: 01/06/18 - 8369 [facility].YGP MICROSCOPIC DESCRIPTION A microscopic examination was performed to arrive at the diagnostic conclusion reported. Signed (Electronically Signed) Mike Green MD 01/07/18 Patient: CORNELIO RUFFIN Re01/05/18Loc: T4-A MR#: [id number] END OF REPORT Dis: Sta: ADMINChemistry - Benji [id number] 13:00:00 Test Item Value Reference Range Interpretation [...] [employer] Benji Package Inserts - Directions [facility]November 12, [employer] ic. Chemistry - Benji [id number] 13:00:00 Test Item Value Reference Range Interpretation Comments Chemistry - Benji 0.6 U/mL <4 Negative Testing (test code = M2T) Chemistry - Benji Less Testing (test code than 4.0 U/mL = = SESUNGF030) Negative 4.0 - 6.0 U/mL = Equivocal [...] Benji Package Inserts - Directions september,November 12, [employer] ic. Chemistry - Benji 0.6 U/mL <4 Negative Testing (test code = M2T) Chemistry - Benji Less Testing (test code than 4.0 U/mL = = NRJNVBR978) Negative 4.0 - 6.0 U/mL = Equivocal [...] Inserts - Directions Maru negron, September,November 12, [employer] ic. Chemistry - Benji [id number] 13:00:00 Test Item Value Reference Range Interpretation Comments Chemistry - Benji CENP, Chela -1, RNP70, Testing (test code = Scl-70, Longo, ELIAANAINTERP) SSA/Ro, SSB/L a IgGAntibodies: Less t denney 7.0 Benji U/mL = Negative 7.0 - 10.0 Benji U/mL = Equivoca l Greate r than 10.0 Benji U/mL = OBRWMVQZU8NDI IgG: Less t denney 5.0 Benji U/mL = Negative 5.0 - 10.0 Benji U/mL = Equivoca l Greater than 10.0 Benji U/mL = POSITIVE Chemistry - Benji [id number] 12:38:00 Test Item Value Reference Range Interpretation Comments Chemistry - Benji Testing (test 0.4 EliAU/mL <7 Negative code = CELTTGIGA) Comment add onChemistry - Benji [id number] 12:38:00 Test Item Value Reference Range Interpretation Comments Chemistry - Benji Testing (test 0.6 EliAU/mL <7 Negative code = CELTTGIGG) Comment add onChemistry - Benji [id number] 12:38:00 Test Item Value Reference Range Interpretation Comments Chemistry - Benji Less Testing (test code = than 7. 0 Benji U/mL HVRFHDP436) = Negative 7.0 - 10.0 E Jeannette U/mL = Equivoca l Greater than 10.0 Benji U/mL = POSITIVE Comment add onChemistry - [id number] 12:33:00 Test Item Value Reference Range Interpretation Comments Chemistry - Specials Non-Reactive NonReactive The ames el screens (test code = HIVT) for HIV-1 p24 Antigen HIV-1/HIV-2Anti body. [id number] 10:27:00 Test Item Value Reference Range Interpretation Comments Immunology (test code = SYPHABT) Nonreactive Nonreactive [id number] 10:25:00 Test Item Value Reference Range Interpretation [...] Hematology (test code = MODERATE=15-30 cells 0-5/hpf RI) (100X) Hematology (test code = MODERATE=16-30 cells 0-5/hpf HYPO) (100X) Hematology (test code = SLIGHT = 2-3 cells 0-2/hpf POLY) (100X) Hematology (test code = MODERATE= 6-15 cells 0-1/hpf OV) (100X) Hematology (test code = Appears Adequate PCOMMENT) [id number] 10:07:00 Test Item Value Reference Range Interpretation [...] (3) (test N code = OCCSTS1) Comment ukaiwKqegtvdadp1047-17-79 16:59:00 Test Item Value Reference Range Interpretation [...] MPV) 10.9 fL 7.4-10.4 H Chemistry - [id number] 13:59:00 Test Item Value Reference Range Interpretation [...] Individual is considered immune to HBV infection. [id number] 12:26:00 Test Item Value Reference Range Interpretation [...] = MPV) 5.3 fL 7.4-10.4 L Type [id number] 11:29:00 Test Item Value Reference Range Interpretation Comments Blood Type Rh (test code = BT) O POSITIVE Antibody Screen (test code = ABSC) NEGATIVE Received Blood Or Been w/in Past 90 Days? UNKNOWNReceived Blood Or Been w/in Past 90 Days? NOScheduled Surgery Date: NO SURGERYIs Surgery Date Greater than 7 days from now? NOPacked Cells - [id number] 11:29:00 [id number] OP LRPC TFUSE 01/06/18 [id number] 05:27:00 Test Item Value Reference Range Interpretation [...] code 149 U/L 8-55 H = ALT) [id number] 05:18:00 Test Item Value Reference Range Interpretation [...] BASO#) 0.0 thou/uL 0.0-0.2 N Chemistry - Tzypcqnf9999-25-28 00:59:00 Test Item Value Reference Range Interpretation Comments Chemistry - Specials (test Non-Reactive NonReactive code = THEPAIGM) Chemistry - Specials (test Non-Reactive S/CO NonReactive code = THBSAG) Chemistry - Specials (test Non-Reactive NonReactive code = INTHBCM) Chemistry - Specials (test Non-Reactive NonReactive code = INTHEPC) Chemistry - BNP, HgbA1c, [id number] 19:45:00 Test Item Value Reference Range Interpretation Comments Chemistry - BNP, HgbA1c, PTHi 100.4 pg/mL 0-100 H (test code = BNP) Comment add [id number] 19:38:00 Test Item Value Reference Range Interpretation Comments Chemistry (test 1.5 ng/mL 0-6.6 N code = CKMBM-T) Chemistry (test Less than < 0.028 code = TROPI-T) 0.010 ng/mL Reference Ra nge 0. 00 - 0.028 ng/mL Negative 0.029 - 0.29 n g/mL Indeterminate Greater or Equa l to 0.3 ng/mL St rongly suggests RI Comment add onChemistry - [id number] 18:21:00 Test Item Value Reference Range Interpretation Comments Chemistry - Specials (test code = 24.27 ng/mL 10-291 N LINDSAY) [id number] 18:14:00 Test Item Value Reference Range Interpretation [...] Hematology (test code = MODERATE=15-30 cells 0-5/hpf RI) (100X) Hematology (test code = SLIGHT = [...] Hematology (test code = Appears Adequate PCOMMENT) [id number] 17:59:00 Test Item Value Reference Range Interpretation [...] code 220 U/L 8-55 H = ALT) [id number] 17:59:00 Test Item Value Reference Range Interpretation Comments Chemistry (test code = IRON) 15 ug/dL 50-170 L [id number] 17:59:00 Test Item Value Reference Range Interpretation Comments Chemistry (test code = TIBC) 386 mcg/dL 265-497 N [id number] 17:50:00 Test Item Value Reference Range Interpretation [...] NONEMedical Necessity SUSPECT COAGULOPATHYAnticoagulant? NONEMedical Necessity: SUSP [id number] 17:50:00 Test Item Value Reference Range Interpretation Comments Coagulation (test code = PTT) 23.4 SEC 22.9-36.1 N Anticoagulant? NONEMedical Necessity SUSPECT COAGULOPATHYAnticoagulant? NONEMedical Necessity: SUSP COAG
--- NOTE | 2020-11-14 10:13 | RAD REPORT ---
EXAM DESCRIPTION: RAD - Chest Single View - 11/14/2020 9:45 am CLINICAL HISTORY: hypertension COMPARISON: August 26, 2020 TECHNIQUE: AP portable chest image was obtained 11/14/2020 9:45 am . FINDINGS: No focal lung parenchymal process. Interstitial pattern matches comparison. Hilar regions are unchanged. Left hemidiaphragm elevation noted. Heart and vasculature are normal. No measurable pl eural effusion and no pneumothorax. No acute bony abnormality seen. No acute aortic findings suspecte d. IMPRESSION: No acute cardiopulmonary process. No significant change from comparison study.
[2020-11-14 10:41] LABS: Absolute Lymphocytes (CBC) 2.8 K/uL (0.7-4.9); Basophils % 0.4 % (0-1.3); Hematocrit 42.3 % (36.0-45.0); Lymphocytes % 24.6 % (15.3-44.8); MPV 8.4 fL (7.6-11.3); RBC Red Blood Cell Count 4.72 M/uL (3.86-4.86)
[2020-11-14 10:55] LABS: BUN Blood Urea Nitrogen 12 mg/dL (7-18); Bicarbonate 28 mmol/L (21-32); Glucose Level 97 mg/dL (74-106); Potassium 4.3 mmol/L (3.5-5.1); Sodium Level 140 mmol/L (136-145); Troponin (Emerg Dept Use Only) < 0.02 ng/mL (0.0-0.045)
--- NOTE | 2020-11-14 11:35 | RAD REPORT ---
EXAM DESCRIPTION: CT - Angio Aorta For Dissection - 11/14/2020 11:11 am CLINICAL HISTORY: HTN, left flank pain x 3 days COMPARISON: None. TECHNIQUE: Dynamically enhanced 3 mm thick images of the chest, abdomen, and upper pelvis were obtai slick during administration of approximately 150mL Isovue 370 IV contrast. Sagittal and coronal reconst ruction images were generated using MIP and reviewed. Exam utilizes a protocol to evaluate entire cou rse of the aorta. All CT scans are performed using dose optimization technique as appropriate and may include automated exposure control or mA/KV adjustment according to patient size. FINDINGS: Aorta is normal in diameter with no dissection or other aneurysm. Infrarenal abdominal aor ta shows irregular mural plaquing resulting in approximately 20-25% luminal narrowing. Inferior mesen teric artery is patent. Reconstruction images show no significant findings. Pulmonary arteries are normal as well. No cardiomegaly, pericardial thickening or pericardial effusio n. No dense mass or consolidation identified. Minimal reticulonodular opacification present in the later al aspect of the right lower lobe. Scarring changes are seen in the lateral gutter. A 7 millimeter pu lmonary nodule abuts the diaphragmatic pleura on the right. This is unchanged from 2018. No pleural t hickening, pleural effusion or pneumothorax. No abnormal mediastinal or hilar mass or lymphadenopathy seen. No chest wall mass or abnormal axillar y lymphadenopathy. Celiac, SMA and renal arteries show no suspicious findings. Solid abdominal viscera and bowel show no emergent findings. Moderate stool volume is present in the colon with distention of the rectum. Dive rticulosis is present. Atrophic uterus and ovaries show no suspicious findings. No free air, free flu id or inflammatory stranding. No urinary bladder abnormality. There has been repair of a large hiata l hernia since the 2018 CT imaging. There is only minimal remnant hiatal hernia present. Disc and bone degenerative changes are present. No acute or destructive bone process seen. IMPRESSION: Negative CT scan of the aorta for aneurysm, dissection or acute finding. Irregular ather osclerotic plaquing changes in the infrarenal abdominal aorta results in 20-25% luminal narrowing. Very minimal reticulonodular opacification lateral right lower lobe could be a very minimal focus of pneumonitis. The remainder the examination, as detailed above, is without significant or emergent finding. No other significant findings on chest, abdomen and upper pelvis examination.
--- NOTE | 2020-11-14 11:51 | EDPHYS ---
Physician Documentation [facility] Name: Irma Cain Age: 65 yrs Sex: Female : 1955 Arrival Date: 11/14/2020 Time: 09:10 Bed 24 Private MD: ED Physician Oswaldo Hansen HPI: 11/14 10:39 This 65 yrs old Female presents to ER via Ambulatory with complaints of High rn Blood Pressure. 10:39 The patient has elevated blood pressure and discovered this at a physician's office. rn Onset: The symptoms/episode began/occurred at an unknown time. Modifying factors:. Associated signs and symptoms: Pertinent positives: anxiety, Pertinent negatives: chest pain, dizziness, dyspnea, headache, visual changes, vomiting, weakness. Severity of symptoms: At its worst the blood pressure was moderate, in the emergency department the blood pressure is unchanged. The patient has not experienced similar symptoms in the past. The patient has been recently seen by a physician:. Sent from Psychiatry office, was there for anxiety, reports daily anxiety, BP was 200/90, sent here for eval. Otherwise feels fine. No chest pain/sob/abd pain/vomiting/diarrhea. . Historical: - Immunization history:: Client reports receiving the 1st dose of the Covid vaccine, Flu vaccine is up to date. - Social history:: Smoking status: Patient denies any tobacco usage or history of. Patient/guardian denies using tobacco products. - Family history:: not pertinent. - Hospitalizations: : No recent hospitalization is reported. ROS: 10:39 Constitutional: Negative for fever, chills, and weight loss, Eyes: Negative for injury, rn pain, redness, and discharge, Neck: Negative for injury, pain, and swelling, Cardiovascular: Negative for chest pain, palpitations, and edema, Respiratory: Negative for shortness of breath, cough, wheezing, and pleuritic chest pain, Abdomen/GI: Negative for abdominal pain, nausea, vomiting, diarrhea, and constipation, Back: Negative for injury and pain, : Negative for injury, bleeding, discharge, and swelling, MS/Extremity: Negative for injury and deformity, Skin: Negative for injury, rash, and discoloration, Neuro: Negative for headache, weakness, numbness, tingling, and seizure. Exam: 10:39 Constitutional: This is a well developed, well nourished patient who is awake, alert, rn and in no acute distress. Seems anxious. Head/Face: Normocephalic, atraumatic. Eyes: Pupils equal round and reactive to light, extra-ocular motions intact. Lids and lashes normal. Conjunctiva and sclera are non-icteric and not injected. Cornea within normal limits. Periorbital areas with no swelling, redness, or edema. Cardiovascular: Regular rate and rhythm. No pulse deficits. Respiratory: Mild tachypnea, clear bilateral breath sounds, no wheezing, no retractions, able to calm down with coaching, states "always this way when anxious". Abdomen/GI: Soft, non-tender, with normal bowel sounds. No distension or tympany. No guarding or rebound. No evidence of tenderness throughout. Skin: Warm, dry with normal turgor. Normal color with no rashes, no lesions, and no evidence of cellulitis. MS/ Extremity: Pulses equal, no cyanosis. Neurovascular intact. Full, normal range of motion. Equal circumference. Neuro: Awake and alert, GCS 15, oriented to person, place, time, and situation. Cranial nerves II-XII grossly intact. Motor strength 5/5 in all extremities. Sensory grossly intact. Cerebellar exam normal. Normal gait. Vital Signs: 09:38 BP 218 / 92; Pulse 84; Resp 22; Temp 97.7; Pulse Ox 100% on R/A; Pain 0/10; kg 10:15 BP 164 / 65; Pulse 76; Resp 20; Pulse Ox 96% on R/A; kg 12:00 BP 180 / 87; Pulse 95; Resp 20; Pulse Ox 97% on R/A; Pain 0/10; kg Jorge Coma Score: 10:34 Eye Response: spontaneous(4). Verbal Response: oriented(5). Motor Response: obeys kg commands(6). Total: 15. MDM: 09:19 Patient medically screened. rn 11:48 Differential diagnosis: Malignant HTN, asymptomatic HTN. Data reviewed: vital signs, rn nurses notes, lab test result(s), EKG, radiologic studies, CT scan, plain films, and as a result, I will discharge patient. Counseling: I had a detailed discussion with the patient and/or guardian regarding: the historical points, exam findings, and any diagnostic results supporting the discharge/admit diagnosis, lab results, radiology results, the need for outpatient follow up, to return to the emergency department if symptoms worsen or persist or if there are any questions or concerns that arise at home. Response to treatment: the patient's symptoms have mildly improved after treatment, and as a result, I will discharge patient. Special discussion: I discussed with the patient/guardian in detail that at this point there is no indication for admission to the hospital. It is understood, however, that if the symptoms persist or worsen the patient needs to return immediately for re-evaluation. Based on the history and exam findings, there is no indication for further emergent testing or inpatient evaluation. I discussed with the patient/guardian the need to see the primary care provider for further evaluation of the symptoms. ED course: Labs unremarkable, CT aorta no acute findings, normal neuro exam, will dc home with pcp f/u for BP management, BP has improved without intervention, and states normal BPs in 150s.Currently 164/65. . 11:51 Counseling: I had a detailed discussion with the patient and/or guardian regarding: the rn presence of at least one elevated blood pressure reading (>120/80) during this emergency department visit. Special discussion: I have referred the patient to see his PCP for further evaluation of high blood pressure. 11/14 09:28 Order name: Basic Metabolic Panel; Complete Time: 10:58 rn 11/14 09:28 Order name: CBC with Diff; Complete Time: :58 11/14:28 Order name: Troponin (emerg Dept Use Only); Complete Time: :58 11/14 09:28 Order name: XRAY Chest (1 view); Complete Time: 10:38 11/14 09:28 Order name: EKG; Complete Time: :28 11/14 09:28 Order name: CT Aorta for Dissection; Complete Time: 11:44 11/14 09:28 Order name: Cardiac monitoring; Complete Time: 09:57 11/14 09:28 Order name: EKG - Nurse/Tech; Complete Time: 10:30 11/14 09:28 Order name: IV Saline Lock; Complete Time: 10:30 11/14 09:28 Order name: Labs collected and sent; Complete Time: 10:30 11/14 09:28 Order name: O2 Per Protocol; Complete Time: 09:58 11/14 09:28 Order name: O2 Sat Monitoring; Complete Time: 09:58 rn Administered Medications: No medications were administered Disposition: 11/14/20 11:51 Discharged to Home. Impression: Hypertension, Anxiety disorder, unspecified. - Condition is Stable. - Discharge Instructions: Hypertension, Generalized Anxiety Disorder. - Medication Reconciliation Form, Thank You Letter, Antibiotic Education, Prescription Opioid Use form. - Follow up: Private Physician; When: As needed; Reason: Recheck today's complaints, Re-evaluation by your physician. - Problem is new. - Symptoms have improved. Signatures: Dispatcher [employer] EDMS Oswaldo Hansen MD MD rn Kalpana Tyson kg Corrections: (The following items were deleted from the chart) 11:51 11:51 11/14/2020 11:51 Discharged to Home. Impression: Hypertension. Condition is rn Stable. Forms are Medication Reconciliation Form, Thank You Letter, Antibiotic Education, Prescription Opioid Use. Follow up: Private Physician; When: As needed; Reason: Recheck today's complaints, Re-evaluation by your physician. Problem is new. Symptoms have improved. rn 12:36 11:51 11/14/2020 11:51 Discharged to Home. Impression: Hypertension; Anxiety disorder, kg unspecified. Condition is Stable. Forms are Medication Reconciliation Form, Thank You Letter, Antibiotic Education, Prescription Opioid Use. Follow up: Private Physician; When: As needed; Reason: Recheck today's complaints, Re-evaluation by your physician. Problem is new. Symptoms have improved. rn
--- NOTE | 2020-11-14 11:51 | ER ---
Nurse's Notes [facility] Name: Irma Cain Age: 65 yrs Sex: Female : 1955 Arrival Date: 11/14/2020 Time: 09:10 Bed 24 Private MD: Diagnosis: Hypertension;Anxiety disorder, unspecified Presentation: 11/14 09:38 Chief complaint: Patient states: Pt presents to ER via POV sent to ER per her kg psychiatrist Dr. Hughes. She stated that her B/P was 220/94 at office. Coronavirus screen: Client denies travel out of the [place] in the last 14 days. At this time, the client does not indicate any symptoms associated with coronavirus-19. Pt stated she has received her first COVID vaccine. Ebola Screen: Patient negative for fever greater than or equal to 101.5 degrees Fahrenheit, and additional compatible Ebola Virus Disease symptoms. 09:38 Method Of Arrival: Ambulatory kg 09:40 Acuity: FELA 3 kg 09:40 Initial Sepsis Screen: Does the patient meet any 2 criteria? No. Patient's initial kg sepsis screen is negative. Risk Assessment: Do you want to hurt yourself or someone else? Patient reports no desire to harm self or others. Onset of symptoms was November 14, 2020 at 08:30. 09:40 Initial Sepsis Screen: Does the patient meet any 2 criteria? Does the patient have a kg suspected source of infection? No. Patient's initial sepsis screen is negative. Triage Assessment: 09:40 Pain: Denies pain. EENT: No deficits noted. Neuro: No deficits noted. Cardiovascular: kg No deficits noted. Heart tones S1 S2 Capillary refill < 3 seconds. Respiratory: No deficits noted. Breath sounds are clear. GI: No deficits noted. : No deficits noted. Derm: No deficits noted. Musculoskeletal: No deficits noted. Historical: - Immunization history:: Client reports receiving the 1st dose of the Covid vaccine, Flu vaccine is up to date. - Social history:: Smoking status: Patient denies any tobacco usage or history of. Patient/guardian denies using tobacco products. - Family history:: not pertinent. - Hospitalizations: : No recent hospitalization is reported. Screenin:34 Abuse screen: Denies threats or abuse. Nutritional screening: No deficits noted. kg Tuberculosis screening: No symptoms or risk factors identified. Fall Risk None identified. Assessment: 09:40 Musculoskeletal: No deficits noted. kg 10:31 General: Appears in no apparent distress. Behavior is anxious. Pain: Denies pain. kg Neuro: No deficits noted. Level of Consciousness is awake, alert, obeys commands, Oriented to person, place, time, situation. Cardiovascular: No deficits noted. Heart tones S1 S2 present Capillary refill < 3 seconds Rhythm is regular. Respiratory: Airway is patent Breath sounds are clear bilaterally. GI: No deficits noted. : No deficits noted. EENT: No deficits noted. Derm: No deficits noted. Musculoskeletal: No deficits noted. Vital Signs: 09:38 BP 218 / 92; Pulse 84; Resp 22; Temp 97.7; Pulse Ox 100% on R/A; Pain 0/10; kg 10:15 BP 164 / 65; Pulse 76; Resp 20; Pulse Ox 96% on R/A; kg 12:00 BP 180 / 87; Pulse 95; Resp 20; Pulse Ox 97% on R/A; Pain 0/10; kg Vitals: 10:15 Cardiac Rhythm Assessment Regular. kg Jorge Coma Score: 10:34 Eye Response: spontaneous(4). Verbal Response: oriented(5). Motor Response: obeys kg commands(6). Total: 15. ED Course: 09:10 Patient arrived in ED. am2 09:19 Oswaldo Hansen MD is Attending Physician. rn 09:38 Kalpana Tyson is Primary Nurse. kg 09:45 XRAY Chest (1 view) In Process Unspecified. EDMS 10:20 Inserted saline lock: 20 gauge in left antecubital area, using aseptic technique. kg 10:29 Basic Metabolic Panel Sent. kg 10:29 CBC with Diff Sent. kg 10:29 Troponin (emerg Dept Use Only) Sent. kg 10:34 Patient has correct armband on for positive identification. Allergy band placed. Bed in kg low position. Call light in reach. Side rails up X2. 10:37 Triage completed. kg 10:37 Arm band placed on right wrist. Patient placed in the treatment room. kg 11:11 CT Aorta for Dissection In Process Unspecified. EDMS 12:35 No provider procedures requiring assistance completed. IV discontinued, intact, kg bleeding controlled, No redness/swelling at site. Administered Medications: No medications were administered Outcome: 11:51 Discharge ordered by . chaka 12:35 Discharged to home ambulatory. kg 12:35 Condition: improved 12:35 Discharge instructions given to patient, Demonstrated understanding of instructions, follow-up care. 12:36 Patient left the ED. kg Signatures: Dispatcher [employer] Oswaldo Borrego MD MD rn Moreno, Amanda am2 Graham, Kristen kg
[2020-11-14 12:42] VITALS: TEMP 97.7
[2020-11-14 12:45] VITALS: BP 180/87; O2SAT 97
--- NOTE | 2020-11-16 08:01 | EKG ---
Test Date: 2020-11-14 Test Time: 10:05:43 [employer] Assistant: GERRY Fisher MEASUREMENT RESULTS: Intervals: Rate: 79 DC: 142 QRSD: 64 QT: 372 QTc: 426 [place]: P: 52 DC: 142 QRS: 26 T: 48 INTERPRETIVE STATEMENTS: Sinus rhythm with occasional premature ventricular complexes Possible Left atrial enlargement Nonspecific T wave abnormality Abnormal ECG Compared to ECG 08/26/2020 03:55:52 Ventricular premature complex(es) now present T-wave abnormality now present ST (T wave) deviation no longer present Possible ischemia no longer present Prolonged QT interval no longer present Electronically Signed On 11-16-20 07:58:27 CDT by Francisco Francis
== END 2020-11-14 12:36 | disposition home or self-care (01) ==
LOC: ER 09:08
DX: I10 Essential (primary) hypertension (principal)
CPT/HCPCS: 93005; 85025; 80048; 36415; 84484; 71275; 74175; 71045; 99283; Q9967

== ENCOUNTER 2022-06-30 12:02 | Emergency (ER) | payer OTHER ==
--- OUTSIDE RECORDS SUMMARY | 2022-06-30 12:16 | XMS REPORT | Continuity of Care Document ---
:1955 Author Organization [facility] t Address [address] [place] [address] Care Team Providers Name Role Phone CUBA GARDINER Primary Care Physician Unavailable BOBBY SIMS Attending Clinician Unavailable CANDIDA BURGESS Attending Clinician Unavailable CUBA GARDINER Attending Clinician Unavailable Doctor Unassigned, [place] Attending Clinician Unavailable Sharla Ashraf Attending Clinician SHARLA TYLER Attending Clinician Unavailable Cuba Gardiner MD Attending Clinician Maribell Bhatia Attending Clinician Demetrio Conteh RN Attending Clinician Unavailable Titi Hahn DO Attending Clinician Prashanth Vo MD Attending Clinician Rachelle Rodriguez Attending Clinician Provider, [facility] Attending Clinician Unavailable 2, [facility] Attending Clinician Unavailable Zo Easley RN Attending Clinician Unavailable Pob[facility], [facility] Attending Clinician Unavailable Lor Kelly Attending Clinician SB CANELA Attending Clinician Unavailable Sb Canela MD Attending Clinician Bobby Sims MD Attending Clinician Only, [facility] Test Attending Clinician Unavailable Kalyn Hernandez Attending Clinician Ping Harrison MD Attending Clinician Lab, Adc Fam Pob I Attending Clinician Unavailable ROYCE RANGEL Attending Clinician Unavailable ARISTEO DAVIDSON Attending Clinician Unavailable Lopez Nicole Attending Clinician Unavailable BOBBY SIMS Admitting Clinician Unavailable Prashanth Vo MD Admitting Clinician SB CANELA Admitting Clinician Unavailable Bobby Sims MD Admitting Clinician ROYCE RANGEL Admitting Clinician Unavailable ARISTEO DAVIDSON Admitting Clinician Unavailable Lopez Nicole Admitting Clinician Unavailable Payers Payer Name Policy Type Policy Number Effective Date Expiration Date S supa HUMA[employer] CHOICE [id number] 2014 00:00:00 Problems Condition Condition Condition Status Onset Resolution Last Treating Co mments Source Name Details Category Date Date Treatment Clinician Date Troponin I Troponin I Disease Active 2020-0 U nivers above above 7-30 [place] range 00 [place] Fatigue Fatigue Disease Active 2020-0 Univers 7-30 ity of 00:00: [place] 00 Medical Branch Diarrhea Diarrhea Disease Active 2020-0 Unive rs 7-30 ity of 00:00: [place] 00 Medical Branch Near Near Disease Active 2020-0 Univers syncope syncope 7-29 ity of 00:00: [place] 00 Medical Branch Elevated Elevated Disease Active 2020-0 Unive rs pancreatic pancreatic 7-22 it y of enzyme enzyme 00:00: [place] 00 Medical Branch Dehydratio Dehydratio Disease Active 2020-0 U nivers n n 5-14 ity of 00:00: [place] 00 Medical Branch Hiatal Hiatal Disease Active 2020-0 Univers hernia hernia 5-12 ity of with GERD with GERD 00[place]00: [place] and 00 Medical esophagiti esophagiti Br anch s s Gastroesop Gastroesop Disease Active 2020-0 Overview : Univers hageal hageal 4-28 Added ity of reflux reflux 00:00: automatic [place] disease, disease, 00 ally from Med ica esophagiti esophagiti request B lali s presence s presence for not not surgery specified specified [id number] Hiatal Hiatal Disease Active 2020-0 Overview: Univer s hernia hernia 3-02 Added ity of 00:00: automatic [place] 00 ally from Medical request Branch for surgery [id number] Anxiety Anxiety Disease Active Univers 8-22 ity of 00:00: [place] 00 Medical Branch Acute GI Acute [facility] Disease [facility] 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 7-20 ity of 00:00: [place] 00 Medical Branch Essential Essential Disease Active Uni vers hypertensi hypertensi 7-20 it y of on on 00:00: [place] 00 Medical Branch History of History of Disease Active 2015-07 U nivers staphyloco staphyloco 0-04 it y of ccal ccal 00:00: [place] infection infection 00 [facility] ER RACHEL RACHEL Disease Active 2015-07 Univers (obstructi (obstructi 0-04 it y of ve sleep ve sleep 00:00: [place] apnea) apnea) 00 Medical Branch GERD GERD Disease Active 2015-07 Univers (gastroeso (gastroeso 0-04 it y of phageal phageal 00:00: [place] reflux reflux 00 Medical disease) disease) Branch Severe Severe Disease Active 2015-07 Univers asthma asthma 0-04 ity of 00:00: [place] 00 Medical Branch Osteoporos Osteoporos Disease Active 2015-07 U jocelyners is is 0-04 ity of 00:00: [place] 00 Medical Branch Depression Depression Disease Active 2015-07 U nivers 0-04 ity of 00:00: [place] 00 Medical Branch PTSD PTSD Disease Active 2015-07 Univers (post-trau (post-trau 0-04 it y of matic matic 00:00: [place] stress stress 00 Medical disorder) disorder) Bran ch OCD OCD Disease Active 2015-07 Univers (obsessive (obsessive 0-04 it y of compulsive 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) 00 [facility] ER Iron Iron Disease Active 2015-07 Univers deficiency deficiency 0-04 it y of anemia anemia 00:00: [place] 00 Medical Branch Changing Changing Disease Active 2015-07 Unive rs skin skin 0-04 ity of lesion lesion 00:00: [place] 00 Medical Branch Ankle Ankle Disease Active Univers pain, left pain, left 4-06 it y of 00:00: [place] 00 Medical Branch Allergies, Adverse Reactions, Alerts Allergy Allergy Status Severity Reaction(s) Onset Inactive Treating Comm ents Source Name Type Date Date Clinician Neomycin Propensi Active Other - See 2019-0 Aquino U nivers -Bacitra ty to comments 6-24 skin ity of kane-Poly adverse 00:00: [place] myxin reaction 00 Medical s Branch DIPHENHY DRUG Active High Anaphylaxis 2019-0 Uni vers DRAMINE INGREDI 6-24 ity of HCL 00:00: [place] 00 Medical [place] NEOMYCIN DRUG Active Other-Cmnt 2019-0 Univ ers -BACITRA 6-24 ity of KANE-POLY 00:00: [place] MYXIN 00 Medical [place] PENTAZOC DRUG Active N/V 2019-0 Univers INE-ASPI 6-24 ity of RIN 00:00: [place] 00 Medical Branch Diphenhy Propensi Active Anaphylaxis 2019-0 U nivers dramine ty to 6-24 ity of Hcl adverse 00:00: [place] reaction 00 Medical s [place] Neomycin Propensi Active Other - See 2019-0 Aquino U nivers -Bacitra ty to comments 6-24 skin ity of kane-Poly adverse 00:00: [place] myxin reaction 00 [facility] Branch Pentazoc Propensi Active Nausea 2019-0 Univer s ine-Aspi ty to and/or 6-24 ity of rin adverse Vomiting 00:00: [place] reaction 00 [facility] Branch Aspirin Drug Active Anaphylaxis 2019-[address] [facility] All[facility] 6[facility] Center Diphenhy Drug Active Anaphylaxis, 2019-[address] dramine Allergy Other (See 6-24 [facility] s Hcl Comments) 00:00: Medical 00 Center Neomycin Drug Active Other (See 2019-[address] -Bacitra Intolera Comments) 6-24 skin Dg es kane-Poly nce 00:00: Medical myxin 00 Center Pentazoc Drug Active Nausea And 2019-[address] ine-Aspi Intolera Vomiting 6-24 Luke s rin nce 00:00: Medical 00 Center ACETAMIN DRUG Active Unknown-Cmnt 2018-0 Un bogdan OPHEN INGREDI 7-20 ity of 00:00: [place] 00 Medical Branch Acetamin Propensi Active Unknown - 2018-0 Uni vers ophen ty to See comments 7-20 ity of adverse 00:00: [place] reaction 00 Medical s Branch ASPIRIN DRUG Active Anaphylaxis 2016-0 Univ ers INGREDI 4-06 ity of 00:00: [place] 00 Medical Branch BENZALKO DRUG Active Other-Cmnt Univ ers NIUM INGREDI -06 ity of CHLORIDE 00:00: [place] 00 Medical Branch TALWIN DRUG Active Dizziness Univers COMPOUND 10-29 ity of 00:00: [place] 00 Medical Branch Aspirin Propensi Active Anaphylaxis Un bogdan ty to 10-29 ity of adverse 00:00: [place] reaction 00 Medical s Branch Benzalko Propensi Active Other - See blisters Univers nium ty to comments 10-29 ity of Chloride adverse 00:00: [place] reaction 00 Medical s Branch Talwin Propensi Active Dizziness vomitting Un bogdan Compound ty to 10-29 ity of adverse 00:00: [place] reaction 00 Medical s Branch Social History Social Habit Start Date Stop Date Quantity Comments Source History SDOH [facility] Alcohol Std [facility] Drinks History SDOH [facility] Alcohol Binge Medical Radha ter History SDOH [facility] Alcohol Comment Medical C enter Exposure to Not sure [facility] SARS-CoV-2 [place] Medical (event) Branch Alcohol intake 2019-03-06 2019-03-[address] [facility] [facility] es 00:00:00 00:00:00 non-drinker of Medical Ce nter alcohol (finding) History SDOH 2019-01-18 2019-01-[address] [facility] Alcohol Frequency 00:00:00 00:00:00 [facility] Tobacco use and 2019-01-16 2019-01-[address] [facility] [address] [facility] k[facility] exposure 00:00:00 00:00:00 [facility] Sex Assigned At [address] 00:00:00 00:[facility]:00 [facility] Center Smoking Status Start Date Stop Date Source Never smoker [facility] Medical Branch Medications Ordered Filled Start Stop Current Ordering Indication Dosage Frequency Signature Comments Components Source Medication Medication Date Date Medication? Clinician (SIG) Name Name albuterol Yes 2{puff} Inhale 2 U nivers (VENTOLIN) 4-28 Puffs ity of 90 16:30: every 6 [place] mcg/actuati 55 (six) Medical on inhaler hours as Branc h needed for Wheezing or Shortness of Breath. albuterol Yes 2{puff} Inhale 2 U nivers (VENTOLIN) 4-28 Puffs ity of 90 16:30: every 6 [place] mcg/actuati 55 (six) Medical on inhaler hours as Branc h needed for Wheezing or Shortness of Breath. albuterol Yes 2{puff} Inhale 2 U nivers (VENTOLIN) 4-28 Puffs ity of 90 16:30: every 6 [place] mcg/actuati 55 (six) Medical on inhaler hours as Branc h needed for Wheezing or Shortness of Breath. albuterol Yes 2{puff} Inhale 2 U nivers (VENTOLIN) 4-28 Puffs ity of 90 16:30: every 6 [place] mcg/actuati 55 (six) Medical on inhaler hours as Branc h needed for Wheezing or Shortness of Breath. losartan 50 Yes [id number] 50mg Take 1 Univers mg tablet 4-28 tablet by ity o f 00:00: mouth [place] 00 daily. Medical Branch losartan 50 0 Yes [id number] 50mg Take 1 Univers mg tablet 4-28 tablet by ity o f 00:00: mouth [place] 00 daily. Medical Branch losartan 50 0 Yes [id number] 50mg Take 1 Univers mg tablet 4-28 tablet by ity o f 00:00: mouth [place] 00 daily. Medical Branch losartan 50 0 Yes [id number] 50mg Take 1 Univers mg tablet 4-28 tablet by ity o f 00:00: mouth [place] 00 daily. Medical Branch ALPRAZolam 0 2020- No Univer s 2 mg tablet 11-15 ity of 00:00: 00:00 [place] 00 :00 Medical Branch ALPRAZolam 2020-0 2020- No Univer s 2 mg tablet 11-1528 ity of 00:00: 00:00 [place] 00 :00 Medical Branch venlafaxine 2020-0 Yes 75mg Take 75 mg Univers XR 75 mg 24 4-14 by mouth 2 it y of hr capsule 00:00: (two) [place] 00 times Medical daily. Branch venlafaxine 2020-0 Yes 75mg Take 75 mg Univers XR 75 mg 24 4-14 by mouth 2 it y of hr capsule 00:00: (two) [place] 00 times Medical daily. Branch venlafaxine 2020-0 Yes 75mg Take 75 mg Univers XR 75 mg 24 4-14 by mouth 2 it y of hr capsule 00:00: (two) [place] 00 times Medical daily. Branch venlafaxine 2020-0 Yes 75mg Take 75 mg Univers XR 75 mg 24 4-14 by mouth 2 it y of hr capsule 00:00: (two) [place] 00 times Medical daily. Branch zolpidem 10 2020-0 Yes 10mg Take 10 mg Univers mg tablet 4-08 by mouth ity of 00:00: at [place] bedtime. Medical Branch zolpidem 10 2020-0 Yes 10mg Take 10 mg Univers mg tablet 4-08 by mouth ity of 00:00: at [place] bedtime. Medical Branch zolpidem 10 2020-0 Yes 10mg Take 10 mg Univers mg tablet 4-08 by mouth ity of 00:00: at [place] [address] bedtime. Medical Branch zolpidem 10 2020-0 Yes 10mg Take 10 mg Univers mg tablet 4-08 by mouth ity of 00:00: at [place] [address] bedtime. Medical Branch ALPRAZolam 2020-0 2021- No .5mg Take 0.5 Un bogdan 0.5 mg 4-08 04-28 mg by ity of tablet 00:00: 00:00 mouth 2 [place] 00 :00 (two) Medical [facility] daily. ALPRAZolam 2020-0 2021- No .5mg Take 0.5 Un bogdan 0.5 mg 4-08 04-28 mg by ity of tablet 00:00: 00:00 mouth 2 [place] 00 :00 (two) Medical times [place] daily. atomoxetine 2020-0 Yes 40mg Take 40 mg Univers 40 mg 3-25 by mouth 2 ity of capsule 00:00: (two) [place] times Medical daily. Branch temazepam 2020-0 Yes 30mg Take 30 mg Un bogdan 30 mg 3-25 by mouth ity of capsule 00:00: at [place] [address] bedtime. Medical Branch atomoxetine 1-0 Yes 40mg Take 40 mg Univers 40 mg 3-25 by mouth 2 ity of capsule 00:00: (two) [place] times Medical daily. Branch temazepam 1-0 Yes 30mg Take 30 mg Un bogdan 30 mg 3-25 by mouth ity of capsule 00:00: at [place] [address] bedtime. Medical Branch atomoxetine Yes 40mg Take 40 mg Univers 40 mg 3-25 by mouth 2 ity of capsule 00:00: (two) [place] 00 times Medical daily. Branch temazepam Yes 30mg Take 30 mg Un bogdan 30 mg 3-25 by mouth ity of capsule 00:00: at [place] [address] bedtime. Medical Branch atomoxetine Yes 40mg Take 40 mg Univers 40 mg 3-25 by mouth 2 ity of capsule 00:00: (two) [place] 00 times Medical daily. Branch temazepam Yes 30mg Take 30 mg Un bogdan 30 mg 3-25 by mouth ity of capsule 00:00: at [place] [address] bedtime. Medical Branch ARIPiprazol Yes TAKE 1 TO U nivers e 2 mg 3-11 2 TABLETS ity of tablet 00:00: BY MOUTH [place] EVERY Medical NIGHT AT [facility] ARIPiprazol Yes TAKE 1 TO U nivers e 2 mg 3-11 2 TABLETS ity of tablet 00:00: BY MOUTH [place] [address] EVERY Medical NIGHT AT [facility] ARIPiprazol 2020-0 Yes TAKE 1 TO U nivers e 2 mg 3-11 2 TABLETS ity of tablet 00:00: BY MOUTH [place] [address] EVERY Medical NIGHT AT [facility] ARIPiprazol 2020-0 Yes TAKE 1 TO U nivers e 2 mg 3-11 2 TABLETS ity of tablet 00:00: BY MOUTH [place] [address] EVERY Medical NIGHT AT [facility] DALIRESP 2020-0 202- No 1{tbl} Take 1 Univ ers 250 mcg Tab 3-11 -28 tablet by it y of 00:00: 00:00 mouth [place] 00 :00 daily. Medical Branch DALIRESP 2020-0 2020- No 1{tbl} Take 1 Univ ers 250 mcg Tab 3-11 04-28 tablet by it y of 00:00: 00:00 mouth [place] 00 :00 daily. Medical Branch SERTraline 0 Yes 100mg Take 100 Un bogdan 100 mg 2-04 mg by ity of tablet 00:00: mouth at [place] [address] bedtime. Medical Branch SERTraline 2020-0 Yes 100mg Take 100 Un bogdan 100 mg 2-04 mg by ity of tablet 00:00: mouth at [place] 00 bedtime. Medical Branch SERTraline 2020-0 Yes 100mg Take 100 Un bogdan 100 mg 2-04 mg by ity of tablet 00:00: mouth at [place] 00 bedtime. Medical Branch SERTraline 2020-0 Yes 100mg Take 100 Un bogdan 100 mg 2-04 mg by ity of tablet 00:00: mouth at [place] 00 bedtime. Medical Branch ergocalcife 2020-0 2020- No [id number] Take [facility], 02-28 50,000 ity of vitamin d2, 00:00: 04:59 Units by [place] 2,500 unit 00 :00 mouth Medical Cap weekly for Branch 6 doses. ergocalcife 2020-0 2020- No [id number] Take Univers rol, 02-28 50,000 ity of vitamin d2, 00:00: 04:59 Units by [place] 2,500 unit 00 :00 mouth Medical Cap weekly for Branch 6 doses. ergocalcife 2019-0 2020- No [id number] Take [facility], 02-28 50,000 ity of vitamin d2, 00:00: 04:59 Units by [place] 2,500 unit 00 :00 mouth Medical Cap weekly for Branch 6 doses. albuterol 2020-0 Yes 2{puff} Inhale 2 U nivers (VENTOLIN) 7-31 Puffs ity of 90 01:02: every 6 [place] mcg/actuati 13 (six) Medical on inhaler hours as Branc h needed for Wheezing or Shortness of Breath. omeprazole 2020-0 Yes 40mg Take 40 mg U nivers 40 mg 7-31 by mouth ity of capsule 01:02: daily. [place] [address] Medical Branch fluticasone 2020-0 Yes Inhale. Uni vers /umeclidin/ 7-31 ity of vilanter 01:02: [place] ([facility] 13 Medical [facility] Branch INHALE) albuterol 2020-0 Yes 2{puff} Inhale 2 U nivers (VENTOLIN) 7-31 Puffs ity of 90 01:02: every 6 [place] mcg/actuati 13 (six) Medical on inhaler hours as Branc h needed for Wheezing or Shortness of Breath. omeprazole 2020-0 Yes 40mg Take 40 mg U nivers 40 mg 7-31 by mouth ity of capsule 01:02: daily. [place] [address] Medical Branch fluticasone 2020-0 Yes Inhale. Uni vers /umeclidin/ 7-31 ity of vilanter 01:02: [place] ([place] [address] Medical ELLIPTA Branch INHALE) albuterol 2020-0 Yes 2{puff} Inhale 2 U nivers (VENTOLIN) 7-31 Puffs ity of 90 01:02: every 6 [place] mcg/actuati 13 (six) Medical on inhaler hours as Branc h needed for Wheezing or Shortness of Breath. omeprazole 2020-0 Yes 40mg Take 40 mg U nivers 40 mg 7-31 by mouth ity of capsule 01:02: daily. [address] Branch fluticasone 2020-0 Yes Inhale. Uni vers /umeclidin/ 7-31 ity of vilanter 01:02: [place] ([address] ELLIPTA Branch INHALE) albuterol 2020-0 Yes 2{puff} Inhale 2 U nivers (VENTOLIN) 7-31 Puffs ity of 90 01:02: every 6 [place] mcg/actuati (six) Medical on inhaler hours as Branc h needed for Wheezing or Shortness of Breath. omeprazole 2020-0 Yes 40mg Take 40 mg U nivers 40 mg 7-31 by mouth ity of capsule 01:02: daily. [address] Branch fluticasone 2020-0 Yes Inhale. Uni vers /umeclidin/ 7-31 ity of vilanter 01:02: [place] ([address]) omeprazole 2020-0 Yes 40mg Take 40 mg U nivers 40 mg 7-31 by mouth ity of capsule 01:02: daily. [address] Branch fluticasone 2020-0 Yes Inhale. Uni vers /umeclidin/ 7-31 ity of vilanter 01:02: [place] ([address] INH[address]) omeprazole 2020-0 Yes 40mg Take 40 mg U nivers 40 mg 7-31 by mouth ity of capsule 01:02: daily. [address] Branch fluticasone 2020-0 Yes Inhale. Uni vers /umeclidin/ 7-31 ity of vilanter 01:02: [place] ([address] INH[address]) omeprazole 2020-0 Yes 40mg Take 40 mg U nivers 40 mg 7-31 by mouth ity of capsule 01:02: daily. [address] Branch fluticasone 2020-0 Yes Inhale. Uni vers /umeclidin/ 7- ity of vilanter 01:02: [place] ([address] Branch INHALE) omeprazole 2020-0 Yes 40mg Take 40 mg U nivers 40 mg 7-31 by mouth ity of capsule 01:02: daily. [address] fluticasone 2020-0 Yes Inhale. Uni vers /umeclidin/ - ity of vilanter 01:02: [place] ([address] INH[address]) carvediloL 2020-0 2020- No [id number] 12.5mg Take 1 Univers 12.5 mg 7- 08-31 tablet by ity of tablet 00:00: 04:59 mouth 2 [place] 00 :00 (two) Medical times [place] daily with meals for 30 days. carvediloL 2020-0 2020- No [id number] 12.5mg Take 1 Univers 12.5 mg - 08- tablet by ity of tablet 00:00: 04:59 mouth 2 [place] 00 :00 (two) Medical times [place] daily with meals for 30 days. predniSONE 2020-0 Yes 10mg 10 mg, Unive rs (DELTASONE) 7-30 Oral, ity of tablet 10 22:45: DAILY, [place] mg 00 First dose Medical on [facility] Branch 02/22/20 at 1745, Until Discontinu ed, Routine ipratropium 2020-0 Yes 3mL 3 mL, Unive rs -albuterol 7-30 Inhalation ity of (DUONEB) 21:00: , QID, [place] 0.5 mg-3 00 First dose Medic al mg(2.5 mg on [facility] Branch base)/3 mL 02/22/20 at nebulizer 1600, solution 3 Until mL Discontinu ed, Routine ergocalcife 2020-0 Yes [id number] 50,000 Un bogdan rol 7-30 Units, ity of (vitamin 19:30: Oral, [place] d2) 00 QWEEKLY, Medical (CALCIFEROL First dose Br anch ) capsule on Maranda 50,000 02/22/20 at Units 1430, Until Discontinu ed, Routine loperamide 2020-0 Yes 2mg 2 mg, Univer s (IMODIUM 7- Oral, ity of A-D) 19:04: Q4HPRN, [place] capsule 2 12 Starting Medica l mg [facility] Branch 02/22/20 at 1404, Until Discontinu ed, Routine, Diarrhea venlafaxine 2020-0 Yes 75mg 75 mg, Univ ers XR (EFFEXOR 7-30 Oral, BID, it y of XR) 24 hr 13:00: First dose [place] capsule 75 00 on [place] Medical mg 02/22/20 at Branch 0800, Until Discontinu ed, Routine pantoprazol 2019-0 Yes 40mg 40 mg, IV U nivers e 02-21 Piggyback, ity of (PROTONIX) 13:00: Q12H, [place] 40 mg in 00 First dose Medic al NaCl 0.9% on [facility] Branch (NS) 100 mL 02/22/20 at MINI-BAG 0800, Until Discontinu ed, 100 mL carvediloL 2020-0 Yes 12.5mg 12.5 mg, U nivers (COREG) 02-21 Oral, BID ity of tablet 12.5 04:15: MEALS, [place] mg 00 First dose Medical on Wed Branch 02/21/20 at 2315, Until Discontinu ed, Routine fluticasone 2020-0 Yes 1{puff} 1 Puff, Univers propion-sean 02-21 Inhalation it y of meterol 04:15: , Q12H, [place] (ADVAIR) 00 First dose Medic al 250-50 on Wed Branch mcg/dose 02/21/20 at inhalation 2315, disk 1 Puff Until Discontinu ed, Routine
Use approved by (Faculty and pager): ADC PROVIDER ALPRAZolam 2020-0 Yes .5mg 0.5 mg, Univ ers (XANAX) 02-21 Oral, ity of tablet 0.5 04:00: BIDPRN, [place] mg 00 Starting Medical [facility] 02/21/20 at 2300, Until Discontinu ed, Routine, anxiety venlafaxine 2019-0 2020- No 75mg 75 mg, Uni vers XR (EFFEXOR 7-30 07-30 Oral, TID, i ty of XR) 24 hr 03:45: 03:54 First dose [place] capsule 75 00 :51 on Wed Medical mg 02/21/20 at Branch 2245, Until Discontinu ed, Routine ipratropium 2019-2019- No 3mL 3 mL, Univ ers -albuterol 02-2130 Inhalation it y of (DUONEB) 01:37: 20:38 , QIDPRN, [place] as 0.5 mg-3 11 :04 Starting Medical mg(2.5 mg Wed Branch base)/3 mL 02/21/20 at nebulizer 2036, solution 3 Until Maranda mL 02/22/20 at 1538, Routine, Wheezing, Shortness of Breath dextroamphe 2019- 2020- No 30mg Take 30 mg Univers tamine/amph 02-21 by mouth 2 i ty of etamine 00:41: 00:00 (two) [place] (ADDERALL 50 :00 times Medical ORAL) daily. Branch Being prescribed by Psychiatry but the patient has been counseled not to take it due the cardiovasc ular risks ALPRAZolam 2019- No 1mg 1 mg, Unive rs (XANAX) 02-21 Oral, ity of tablet 1 mg 00:38: 03:54 TIDPRN, [place] 33 :27 Starting Medical [facility] Branch 02/21/20 at 1938, Until 02/21/20 at 2254, Routine, anxiety loperamide 2019- 2020- No [id number] 2mg Take 1 Univers 2 mg - 08-10 capsule by ity of capsule 00:00: 04:59 mouth [place] 00 :00 every 4 Medical (four) Branch hours as needed for Diarrhea for up to 10 days. loperamide 2019-0 2020- No [id number] 2mg Take 1 Univers 2 mg - 08-10 capsule by ity of capsule 00:00: 04:59 mouth [place] 00 :00 every 4 Medical (four) Branch hours as needed for Diarrhea for up to 10 days. ALPRAZolam 2020-0 2020- No [id number] .5mg Take 1 Univers 0.5 mg 02-21 08-05 tablet by ity of tablet 00:00: 04:59 mouth 3 [place] 00 :00 (three) Medical times [place] daily as needed (anxiety) for up to 5 days. ALPRAZolam 2020-0 2020- No [id number] .5mg Take 1 Univers 0.5 mg 02-21 0805 tablet by ity of tablet 00:00: 04:59 mouth 3 [place] 00 :00 (three) Medical times Branch daily as needed (anxiety) for up to 5 days. ondansetron 2019- Yes 4mg 4 mg, Slow Univers (ZOFRAN 02-20 IV Push, ity of (PF)) 23:23: Q6HPRN, [place] injection 4 08 Starting Medi feliciano mg Wed Branch 02/21/20 at 1823, Until Discontinu ed, Routine, Nausea and Vomiting (N/V) HYDROcodone 2019- No 1{tbl} 1 tablet, Univers -acetaminop 02-20 Oral, ity of hen (NORCO 23:23: 23:22 Q6HPRN, [place] as 5) 5-325 mg 00 :00 Starting Medi feliciano tablet 1 Wed Branch tablet 02/21/20 at 1823, Until Wed02/23/20 at 1822, Routine, Pain (scale 4-6) acetaminoph 2019- Yes 650mg 650 mg, Un bogdan en 02-20 Oral, ity of (TYLENOL) 23:22: Q6HPRN, [place] tablet 650 56 Starting Medic al mg Wed Branch 02/21/20 at 1822, Until Discontinu ed, Routine, Pain (scale 1-3) cefTRIAXone 2019- No 1000mg 1,000 mg, Univers (ROCEPHIN) 02-20 IV ity of 1,000 mg in 16:00: 03:51 Piggyback, [place] NaCl 0.9% 00 :59 Q12H ABX, Medic al (NS) 50 mL First dose [facility] MINI-BAG on Wed02/21/20 at 1100, Until Discontinu ed, 50 mL
R dee for Anti-Infec tive: Empiric Therapy for Suspected Infection< br>Empiric Therapy Site: Respirator y
Durat ion of therapy: 72 hours NaCl 0.9% 2020- No 1000mL at 999 Uni vers (NS) bolus 02-20 mL/hr, ity of infusion 16:00: 16:00 1,000 mL, [place] as 1,000 mL 00 :00 [facility] dose, 02/21/20 at 1100, STAT doxycycline 2020-0 2020- No 100mg 100 mg, U nivers hyclate 02-14 Oral, ity of (Vibramycin 01:45: 00:41 ONCE, 1 [place] capsule 00 :00 dose, Wed Medic al 100 mg 02/14/20 at [place] 204, SHANE
Re ason for Anti-Infec tive: Documented Infection< br>Documen leann Infection Site: Respirator y
Durat ion of Therapy: 7 days ondansetron 2019-0 2020- No 4mg 4 mg, Slow Univers (ZOFRAN 02-14 IV Push, ity of (PF)) 00:45: 23:43 ONCE, 1 [place] injection 4 00 :00 dose, Wed Med ical mg 02/14/20 at [place] 1945, SHANE acetaminoph 2019- 2020- No 650mg 650 mg, U nivers en 02-14 Oral, ity of (TYLENOL) 00:45: 23:43 ONCE, 1 [place] tablet 650 00 :00 dose, Wed Medi feliciano mg 02/14/20 at Branch 194, SHANE contrast 2019-0 2020- No Intravenou Un bogdan previously 02-14 s, ONCE, 1 it y of administere 00:00: 23:30 dose, Wed [place] d 0 mL 00 :00 02/14/[address] [facility] 1900, [place] Routine iohexol 2019-0 2020- No 120mL 120 mL, Unive rs (OMNIPAQUE 02-13 Intravenou it y of 350 23:45: 23:30 s, ONCE, 1 [place] BULK-150 00 :00 dose, Wed Medica l mL) 02/14/20 at [place] injection 1845, 120 mL Routine NaCl 0.9% 2020-0 2020- No 500mL at 999 Univ ers (NS) bolus 02-13- mL/hr, 500 it y of infusion 23:15: 23:22 mL, IV [place] 500 mL 00 :00 Infusion, Medical ONCE, 1 Branch dose, 02/14/20 at 1815, STAT NaCl 0.9% 2020-0 2020- No 500mL at 999 Univ ers (NS) bolus 7-22 07-22 mL/hr, 500 it y of infusion 22:15: 21:44 mL, IV [place] 500 mL 00 :00 Infusion, Medical ONCE, 1 Branch dose, Wed02/14/20 at 1715, STAT omeprazole 2020-0 Yes 40mg Take 40 mg U nivers 40 mg 7-22 by mouth ity of capsule 19:27: daily. [place] [address] Medical Branch fluticasone 2020-0 Yes Inhale. Uni vers /umeclidin/ 02-13 ity of vilanter 19:27: [place] ([place] [address] Medical ELLIPTA Branch INHALE) omeprazole 2020-0 Yes 40mg Take 40 mg U nivers 40 mg -22 by mouth ity of capsule 19:27: daily. [address] Branch fluticasone 2020-0 Yes Inhale. Uni vers /umeclidin/ 02-13 ity of vilanter 19:27: [place] ([place] [address] Medical ELLIPTA Branch INHALE) omeprazole 2020-0 Yes 40mg Take 40 mg U nivers 40 mg 7-22 by mouth ity of capsule 19:27: daily. [address] Branch fluticasone 2020-0 Yes Inhale. Uni vers /umeclidin/ 02-13 ity of vilanter 19:27: [place] ([place] [address] Medical ELLIPTA Branch INHALE) omeprazole 2020-0 Yes 40mg Take 40 mg U nivers 40 mg 7-22 by mouth ity of capsule 19:27: daily. [address] Branch fluticasone 2020-0 Yes Inhale. Uni vers /umeclidin/ 02-13 ity of vilanter 19:27: [place] ([address] ELLIPTA Branch INHALE) omeprazole 2020-0 Yes 40mg Take 40 mg U nivers 40 mg 7-22 by mouth ity of capsule 19:27: daily. [address] Branch fluticasone 2020-0 Yes Inhale. Uni vers /umeclidin/ 02-13 ity of vilanter 19:27: [place] ([place] [address] Medical ELLIPTA Branch INHALE) omeprazole 2020-0 Yes 40mg Take 40 mg U nivers 40 mg 7-22 by mouth ity of capsule 19:27: daily. [address] Branch fluticasone 2020-0 Yes Inhale. Uni vers /umeclidin/ 02-13 ity of vilanter 19:27: [place] ([address] INHALE) omeprazole 2020-0 Yes 40mg Take 40 mg U nivers 40 mg 02-13 by mouth ity of capsule 19:27: daily. [address] fluticasone 2020-0 Yes Inhale. Uni vers /umeclidin/ 02-13 ity of vilanter 19:27: [place] ([address] INHALE) doxycycline 2019-0 2020- No [id number] 100mg Take 1 Univers hyclate 100 02-13 07-30 capsule by i ty of mg capsule 00:00: 04:59 mouth 2 [place] as 00 :00 (two) Medical times Branch daily for 7 days. doxycycline 2020-0 2020- No [id number] 100mg Take 1 Univers hyclate 100 - 07-30 capsule by i ty of mg capsule 00:00: 04:59 mouth 2 [place] as 00 :00 (two) Medical times Branch daily for 7 days. doxycycline 2020-0 2020- No [id number] 100mg Take 1 [facility] hyclate 100 - 07-30 capsule by i ty of mg capsule 00:00: 04:59 mouth 2 [place] as 00 :00 (two) Medical times Branch daily for 7 days. doxycycline 2020-0 2020- No [id number] 100mg Take 1 Univers hyclate 100 - 07-30 capsule by i ty of mg capsule 00:00: 04:59 mouth 2 [place] as 00 :00 (two) Medical times Branch daily for 7 days. doxycycline 2020-0 2020- No [id number] 100mg Take 1 Univers hyclate 100 02-13 07-29 capsule by i ty of mg capsule 00:00: 00:00 mouth 2 [place] as 00 :00 (two) Medical times Branch daily for 7 days. morpHINE 2019- 2020- No 4mg 4 mg, Slow Un bogdan injection 4 01-02-10 IV Push, ity of mg 20:45: 19:33 ONCE, 1 [place] 00 :00 dose, Wed Medical 01/03/20 at Branch 1545, STAT ondansetron 2019- 2020- No 4mg 4 mg, Slow Univers (ZOFRAN 01-02-10 IV Push, ity of (PF)) 20:45: 19:33 ONCE, 1 [place] injection 4 00 :00 dose, Wed Med ical mg 01/03/20 at Branch 1545, SHANE iohexol 2020-0 2020- No 100mL 100 mL, Unive rs (OMNIPAQUE 601-02 Intravenou it y of 350 19:00: 18:55 s, ONCE, 1 [place] BULK-100 00 :00 dose, Wed Medica l mL) 01/03/20 at Branch injection 1400, 100 mL Routine morpHINE 2020-0 2020- No 4mg 4 mg, Slow Un bogdan injection 4 01-02 IV Push, ity of mg 18:15: 18:11 ONCE, 1 [place] 00 :00 dose, Wed Medical 01/03/20 at Branch 1315, STAT ondansetron 2020-0 2020- No 4mg 4 mg, Slow Univers (ZOFRAN 01-02 IV Push, ity of (PF)) 18:15: 18:06 ONCE, 1 [place] injection 4 00 :00 dose, Wed Med ical mg 01/03/20 at Branch 1315, SHANE ondansetron 2020-0 Yes [id number] 4mg Take 1 Univers 4 mg 6-10 tablet by ity of disintegrat 00:00: mouth [place] ing tablet 00 every 4 Medica l (four) Branch hours as needed for Nausea and Vomiting (N/V). ondansetron 2020-0 Yes [id number] 4mg Take 1 Univers 4 mg 6-10 tablet by ity of disintegrat 00:00: mouth [place] ing tablet 00 every 4 Medica l (four) Branch hours as needed for Nausea and Vomiting (N/V). ondansetron 2020-0 Yes [id number] 4mg Take 1 Univers 4 mg 6-10 tablet by ity of disintegrat 00:00: mouth [place] ing tablet 00 every 4 Medica l (four) Branch hours as needed for Nausea and Vomiting (N/V). ondansetron 2020-0 Yes [id number] 4mg Take 1 Univers 4 mg 6-10 tablet by ity of disintegrat 00:00: mouth [place] ing tablet 00 every 4 Medica l (four) Branch hours as needed for Nausea and Vomiting (N/V). ondansetron 2020-0 Yes [id number] 4mg Take 1 Univers 4 mg 6-10 tablet by ity of disintegrat 00:00: mouth [place] ing tablet 00 every 4 Medica l (four) Branch hours as needed for Nausea and Vomiting (N/V). ondansetron 2020-0 Yes [id number] 4mg Take 1 Univers 4 mg 6-10 tablet by ity of disintegrat 00:00: mouth [place] ing tablet 00 every 4 Medica l (four) Branch hours as needed for Nausea and Vomiting (N/V). ondansetron 2020-0 Yes [id number] 4mg Take 1 Univers 4 mg 6-10 tablet by ity of disintegrat 00:00: mouth [place] ing tablet 00 every 4 Medica l (four) Branch hours as needed for Nausea and Vomiting (N/V). ondansetron 2020-0 Yes [id number] 4mg Take 1 Univers 4 mg 6-10 tablet by ity of disintegrat 00:00: mouth [place] ing tablet 00 every 4 Medica l (four) Branch hours as needed for Nausea and Vomiting (N/V). ondansetron 2020-0 Yes [id number] 4mg Take 1 Univers 4 mg 6-10 tablet by ity of disintegrat 00:00: mouth [place] ing tablet 00 every 4 Medica l (four) Branch hours as needed for Nausea and Vomiting (N/V). ondansetron 2020-0 Yes [id number] 4mg Take 1 Univers 4 mg 6-10 tablet by ity of disintegrat 00:00: mouth [place] ing tablet 00 every 4 Medica l (four) Branch hours as needed for Nausea and Vomiting (N/V). ondansetron 2020-0 Yes [id number] 4mg Take 1 Univers 4 mg 6-10 tablet by ity of disintegrat 00:00: mouth [place] ing tablet 00 every 4 Medica l (four) Branch hours as needed for Nausea and Vomiting (N/V). ondansetron 2020-0 Yes [id number] 4mg Take 1 Univers 4 mg 6-10 tablet by ity of disintegrat 00:00: mouth [place] ing tablet 00 every 4 Medica l (four) Branch hours as needed for Nausea and Vomiting (N/V). ondansetron 2020-0 Yes [id number] 4mg Take 1 Univers 4 mg 6-10 tablet by ity of disintegrat 00:00: mouth [place] ing tablet 00 every 4 Medica l (four) Branch hours as needed for Nausea and Vomiting (N/V). ondansetron 2020-0 Yes [id number] 4mg Take 1 Univers 4 mg 6-10 tablet by ity of disintegrat 00:00: mouth [place] ing tablet 00 every 4 Medica l (four) Branch hours as needed for Nausea and Vomiting (N/V). ondansetron 2020-0 Yes [id number] 4mg Take 1 Univers 4 mg 6-10 tablet by ity of disintegrat 00:00: mouth [place] ing tablet 00 every 4 Medica l (four) Branch hours as needed for Nausea and Vomiting (N/V). ondansetron 2020-0 Yes [id number] 4mg Take 1 Univers 4 mg 6-10 tablet by ity of disintegrat 00:00: mouth [place] ing tablet 00 every 4 Medica l (four) Branch hours as needed for Nausea and Vomiting (N/V). ondansetron 2020-0 Yes [id number] 4mg Take 1 Univers 4 mg 6-10 tablet by ity of disintegrat 00:00: mouth [place] ing tablet 00 every 4 Medica l (four) Branch hours as needed for Nausea and Vomiting (N/V). ondansetron 2020-0 Yes [id number] 4mg Take 1 Univers 4 mg 6-10 tablet by ity of disintegrat 00:00: mouth [place] ing tablet 00 every 4 Medica l (four) Branch hours as needed for Nausea and Vomiting (N/V). ondansetron 2020-0 Yes [id number] 4mg Take 1 Univers 4 mg 6-10 tablet by ity of disintegrat 00:00: mouth [place] ing tablet 00 every 4 Medica l (four) Branch hours as needed for Nausea and Vomiting (N/V). albuterol 2020-0 Yes 2{puff} Inhale 2 U nivers (VENTOLIN) 5-15 Puffs ity of 90 20:24: every 6 [place] mcg/actuati 14 (six) Medical on inhaler hours as Branc h needed for Wheezing or Shortness of Breath. dextroamphe 2020-0 Yes 30mg Take 30 mg Univers tamine/amph 5-15 by mouth 2 it y of etamine 20:24: (two) [place] (ADDERALL 14 times Medical ORAL) daily. Branch Being prescribed by Psychiatry but the patient has been counseled not to take it due the cardiovasc ular risks albuterol 2020-0 Yes 2{puff} Inhale 2 U nivers (VENTOLIN) 5-15 Puffs ity of 90 20:24: every 6 [place] mcg/actuati 14 (six) Medical on inhaler hours as Branc h needed for Wheezing or Shortness of Breath. dextroamphe 2020-0 Yes 30mg Take 30 mg Univers tamine/amph 5-15 by mouth 2 it y of etamine 20:24: (two) [place] (ADDERALL 14 times Medical ORAL) daily. Branch Being prescribed by Psychiatry but the patient has been counseled not to take it due the cardiovasc ular risks omeprazole 2020-0 Yes 40mg Take 40 mg U nivers 40 mg 5-15 by mouth ity of capsule 20:24: daily. [address] fluticasone 2020-0 Yes Inhale. Uni vers /umeclidin/ 5-15 ity of vilanter 20:24: [place] ([address] ELLIPTA Branch INHALE) albuterol 2020-0 Yes 2{puff} Inhale 2 U nivers (VENTOLIN) 5-15 Puffs ity of 90 20:24: every 6 [place] mcg/actuati 14 (six) Medical on inhaler hours as Branc h needed for Wheezing or Shortness of Breath. dextroamphe 2020-0 Yes 30mg Take 30 mg Univers tamine/amph 5-15 by mouth 2 it y of etamine 20:24: (two) [place] (ADDERALL 14 times Medical ORAL) daily. Branch Being prescribed by Psychiatry but the patient has been counseled not to take it due the cardiovasc ular risks omeprazole 2020-0 Yes 40mg Take 40 mg U nivers 40 mg 5-15 by mouth ity of capsule 20:24: daily. [address] fluticasone 2020-0 Yes Inhale. Uni vers /umeclidin/ 5-15 ity of vilanter 20:24: [place] ([facility] 14 [facility] ELLIPTA Branch INHALE) albuterol 2020-0 Yes 2{puff} Inhale 2 U nivers (VENTOLIN) 5-15 Puffs ity of 90 20:24: every 6 [place] mcg/actuati 14 (six) Medical on inhaler hours as Branc h needed for Wheezing or Shortness of Breath. dextroamphe 2020-0 Yes 30mg Take 30 mg Univers tamine/amph 5-15 by mouth 2 it y of etamine 20:24: (two) [place] (ADDERALL 14 times Medical ORAL) daily. Branch Being prescribed by Psychiatry but the patient has been counseled not to take it due the cardiovasc ular risks omeprazole 2020-0 Yes 40mg Take 40 mg U nivers 40 mg 5-15 by mouth ity of capsule 20:24: daily. [address] fluticasone 2020-0 Yes Inhale. Uni vers /umeclidin/ 5-15 ity of vilanter 20:24: [place] ([address] ELLIPTA Branch INHALE) albuterol 2020-0 Yes 2{puff} Inhale 2 U nivers (VENTOLIN) 5-15 Puffs ity of 90 20:24: every 6 [place] mcg/actuati 14 (six) Medical on inhaler hours as Branc h needed for Wheezing or Shortness of Breath. dextroamphe 2020-0 Yes 30mg Take 30 mg Univers tamine/amph 5-15 by mouth 2 it y of etamine 20:24: (two) [place] (ADDERALL 14 times Medical ORAL) daily. Branch Being prescribed by Psychiatry but the patient has been counseled not to take it due the cardiovasc ular risks omeprazole 2020-0 Yes 40mg Take 40 mg U nivers 40 mg 5-15 by mouth ity of capsule 20:24: daily. [address] fluticasone 2020-0 Yes Inhale. Uni vers /umeclidin/ 5-15 ity of vilanter 20:24: [place] ([address]) albuterol 2020-0 Yes 2{puff} Inhale 2 U nivers (VENTOLIN) 5-15 Puffs ity of 90 20:24: every 6 [place] mcg/actuati 14 (six) Medical on inhaler hours as Branc h needed for Wheezing or Shortness of Breath. dextroamphe 2020-0 Yes 30mg Take 30 mg Univers tamine/amph 5-15 by mouth 2 it y of etamine 20:24: (two) [place] (ADDERALL 14 times Medical ORAL) daily. Branch Being prescribed by Psychiatry but the patient has been counseled not to take it due the cardiovasc ular risks omeprazole 2020-0 Yes 40mg Take 40 mg U nivers 40 mg 5-15 by mouth ity of capsule 20:24: daily. [address] Branch fluticasone 2020-0 Yes Inhale. Uni vers /umeclidin/ 5-15 ity of vilanter 20:24: [place] ([address] ELLIPTA Branch INHALE) albuterol 2020-0 Yes 2{puff} Inhale 2 U nivers (VENTOLIN) 5-15 Puffs ity of 90 20:24: every 6 [place] mcg/actuati 14 (six) Medical on inhaler hours as Branc h needed for Wheezing or Shortness of Breath. dextroamphe 2020-0 Yes 30mg Take 30 mg Univers tamine/amph 5-15 by mouth 2 it y of etamine 20:24: (two) [place] (ADDERALL 14 times Medical ORAL) daily. Branch Being prescribed by Psychiatry but the patient has been counseled not to take it due the cardiovasc ular risks omeprazole 2020-0 Yes 40mg Take 40 mg U nivers 40 mg 5-15 by mouth ity of capsule 20:24: daily. [address] fluticasone 2020-0 Yes Inhale. Uni vers /umeclidin/ 5-15 ity of vilanter 20:24: [place] ([address]) albuterol 2020-0 Yes 2{puff} Inhale 2 U nivers (VENTOLIN) 5-15 Puffs ity of 90 20:24: every 6 [place] mcg/actuati 14 (six) Medical on inhaler hours as Branc h needed for Wheezing or Shortness of Breath. dextroamphe 2020-0 Yes 30mg Take 30 mg Univers tamine/amph 5-15 by mouth 2 it y of etamine 20:24: (two) [place] (ADDERALL 14 times Medical ORAL) daily. Branch Being prescribed by Psychiatry but the patient has been counseled not to take it due the cardiovasc ular risks omeprazole 2020-0 Yes 40mg Take 40 mg U nivers 40 mg 5-15 by mouth ity of capsule 20:24: daily. [address] fluticasone 2020-0 Yes Inhale. Uni vers /umeclidin/ 5-15 ity of vilanter 20:24: [place] ([address] ELLIPTA Branch INHALE) albuterol 2020-0 Yes 2{puff} Inhale 2 U nivers (VENTOLIN) 5-15 Puffs ity of 90 20:24: every 6 [place] mcg/actuati 14 (six) Medical on inhaler hours as Branc h needed for Wheezing or Shortness of Breath. dextroamphe 2020-0 Yes 30mg Take 30 mg Univers tamine/amph 5-15 by mouth 2 it y of etamine 20:24: (two) [place] (ADDERALL 14 times Medical ORAL) daily. Branch Being prescribed by Psychiatry but the patient has been counseled not to take it due the cardiovasc ular risks omeprazole 2020-0 Yes 40mg Take 40 mg U nivers 40 mg 5-15 by mouth ity of capsule 20:24: daily. [address] fluticasone 2020-0 Yes Inhale. Uni vers /umeclidin/ 5-15 ity of vilanter 20:24: [place] ([address] Branch INHALE) albuterol 2020-0 Yes 2{puff} Inhale 2 U nivers (VENTOLIN) 5-15 Puffs ity of 90 20:24: every 6 [place] mcg/actuati 14 (six) Medical on inhaler hours as Branc h needed for Wheezing or Shortness of Breath. dextroamphe 2020-0 Yes 30mg Take 30 mg Univers tamine/amph 5-15 by mouth 2 it y of etamine 20:24: (two) [place] (ADDERALL 14 times Medical ORAL) daily. Branch Being prescribed by Psychiatry but the patient has been counseled not to take it due the cardiovasc ular risks omeprazole 2020-0 Yes 40mg Take 40 mg U nivers 40 mg 5-15 by mouth ity of capsule 20:24: daily. [address] fluticasone 2020-0 Yes Inhale. Uni vers /umeclidin/ 5-15 ity of vilanter 20:24: [place] ([facility] [address] [facility] ELLIPTA Branch INHALE) albuterol 2020-0 Yes 2{puff} Inhale 2 U nivers (VENTOLIN) 5-15 Puffs ity of 90 20:24: every 6 [place] mcg/actuati 14 (six) Medical on inhaler hours as Branc h needed for Wheezing or Shortness of Breath. dextroamphe 2020-0 Yes 30mg Take 30 mg Univers tamine/amph 5-15 by mouth 2 it y of etamine 20:24: (two) [place] (ADDERALL 14 times Medical ORAL) daily. Branch Being prescribed by Psychiatry but the patient has been counseled not to take it due the cardiovasc ular risks omeprazole 2020-0 Yes 40mg Take 40 mg U nivers 40 mg 5-15 by mouth ity of capsule 20:24: daily. [place] 14 Medical Branch fluticasone 2020-0 Yes Inhale. Uni vers /umeclidin/ 5-15 ity of vilanter 20:24: [place] ([facility] 14 Medical ELLIPTA Branch INHALE) albuterol 2020-0 Yes 2{puff} Inhale 2 U nivers (VENTOLIN) 5-15 Puffs ity of 90 20:24: every 6 [place] mcg/actuati 14 (six) Medical on inhaler hours as Branc h needed for Wheezing or Shortness of Breath. dextroamphe 2020-0 Yes 30mg Take 30 mg Univers tamine/amph 5-15 by mouth 2 it y of etamine 20:24: (two) [place] (ADDERALL 14 times Medical ORAL) daily. Branch Being prescribed by Psychiatry but the patient has been counseled not to take it due the cardiovasc ular risks albuterol 2020-0 Yes 2{puff} Inhale 2 U nivers (VENTOLIN) 5-15 Puffs ity of 90 20:24: every 6 [place] mcg/actuati 14 (six) Medical on inhaler hours as Branc h needed for Wheezing or Shortness of Breath. dextroamphe 2020-0 Yes 30mg Take 30 mg Univers tamine/amph 5-15 by mouth 2 it y of etamine 20:24: (two) [place] (ADDERALL 14 times Medical ORAL) daily. Branch Being prescribed by Psychiatry but the patient has been counseled not to take it due the cardiovasc ular risks albuterol 2020-0 Yes 2{puff} Inhale 2 U nivers (VENTOLIN) 5-15 Puffs ity of 90 20:24: every 6 [place] mcg/actuati 14 (six) Medical on inhaler hours as Branc h needed for Wheezing or Shortness of Breath. dextroamphe 2020-0 Yes 30mg Take 30 mg Univers tamine/amph 5-15 by mouth 2 it y of etamine 20:24: (two) [place] (ADDERALL 14 times Medical ORAL) daily. Branch Being prescribed by Psychiatry but the patient has been counseled not to take it due the cardiovasc ular risks albuterol 2020-0 Yes 2{puff} Inhale 2 U nivers (VENTOLIN) 5-15 Puffs ity of 90 20:24: every 6 [place] mcg/actuati 14 (six) Medical on inhaler hours as Branc h needed for Wheezing or Shortness of Breath. dextroamphe 2020-0 Yes 30mg Take 30 mg Univers tamine/amph 5-15 by mouth 2 it y of etamine 20:24: (two) [place] (ADDERALL 14 times Medical ORAL) daily. Branch Being prescribed by Psychiatry but the patient has been counseled not to take it due the cardiovasc ular risks albuterol 2020-0 Yes 2{puff} Inhale 2 U nivers (VENTOLIN) 5-15 Puffs ity of 90 20:24: every 6 [place] mcg/actuati 14 (six) Medical on inhaler hours as Branc h needed for Wheezing or Shortness of Breath. dextroamphe 2020-0 Yes 30mg Take 30 mg Univers tamine/amph 5-15 by mouth 2 it y of etamine 20:24: (two) [place] (ADDERALL 14 times Medical ORAL) daily. Branch Being prescribed by Psychiatry but the patient has been counseled not to take it due the cardiovasc ular risks albuterol 2020-0 Yes 2{puff} Inhale 2 U nivers (VENTOLIN) 5-15 Puffs ity of 90 20:24: every 6 [place] mcg/actuati 14 (six) Medical on inhaler hours as Branc h needed for Wheezing or Shortness of Breath. dextroamphe 2020-0 Yes 30mg Take 30 mg Univers tamine/amph 5-15 by mouth 2 it y of etamine 20:24: (two) [place] (ADDERALL 14 times Medical ORAL) daily. Branch Being prescribed by Psychiatry but the patient has been counseled not to take it due the cardiovasc ular risks dexamethaso 2020-0 2020- No 10mg 10 mg, IV Univers ne 5-15 05-15 Piggyback, ity of (DECADRON) 12:36: 14:26 ONCE, 1 [place] as 10 mg in 00 :00 dose, Fri Medica l NaCl 0.9% 12/08/19 at Bran ch (NS) 0745, 50 piggyback mL HYDROcodone 2020-0 Yes [id number] 7.5mg Take 15 mL Univers -acetaminop 5-15 by mouth ity of hen 7.5-325 00:00: every 4 [place] as mg/15 mL 00 (four) Medical solution hours as Branch needed for Pain (scale 4-6) or Pain (scale 7-10). proMETHazin 2020-0 Yes [id number] 12.5mg Take 1 Univers e 12.5 mg 5-15 tablet by ity o f tablet 00:00: mouth [place] 00 every 6 Medical (six) Branch hours as needed for Nausea and Vomiting (N/V) or N/V alternatin g with Ondansetro n. simethicone 2020-0 Yes [id number] 80mg Take 1 Univers 80 mg 5-15 tablet by ity of chewable 00:00: mouth [place] tablet 00 after Medical meals and Branch at bedtime. HYDROcodone 2020-0 Yes [id number] 7.5mg Take 15 mL Univers -acetaminop 5-15 by mouth ity of hen 7.5-325 00:00: every 4 [place] as mg/15 mL 00 (four) Medical solution hours as Branch needed for Pain (scale 4-6) or Pain (scale 7-10). proMETHazin 2020-0 Yes [id number] 12.5mg Take 1 Univers e 12.5 mg 5-15 tablet by ity o f tablet 00:00: mouth [place] 00 every 6 Medical (six) Branch hours as needed for Nausea and Vomiting (N/V) or N/V alternatin g with Ondansetro n. simethicone 2020-0 Yes [id number] 80mg Take 1 Univers 80 mg 5-15 tablet by ity of chewable 00:00: mouth [place] tablet 00 after Medical meals and Branch at bedtime. HYDROcodone 2020-0 Yes [id number] 7.5mg Take 15 mL Univers -acetaminop 5-15 by mouth ity of hen 7.5-325 00:00: every 4 [place] as mg/15 mL 00 (four) Medical solution hours as Branch needed for Pain (scale 4-6) or Pain (scale 7-10). proMETHazin 2020-0 Yes [id number] 12.5mg Take 1 Univers e 12.5 mg 5-15 tablet by ity o f tablet 00:00: mouth [place] 00 every 6 Medical (six) Branch hours as needed for Nausea and Vomiting (N/V) or N/V alternatin g with Ondansetro n. simethicone 2020-0 Yes [id number] 80mg Take 1 Univers 80 mg 5-15 tablet by ity of chewable 00:00: mouth [place] tablet 00 after Medical meals and Branch at bedtime. HYDROcodone 2020-0 Yes [id number] 7.5mg Take 15 mL Univers -acetaminop 5-15 by mouth ity of hen 7.5-325 00:00: every 4 [place] as mg/15 mL 00 (four) Medical solution hours as Branch needed for Pain (scale 4-6) or Pain (scale 7-10). proMETHazin 2020-0 Yes [id number] 12.5mg Take 1 Univers e 12.5 mg 5-15 tablet by ity o f tablet 00:00: mouth [place] 00 every 6 Medical (six) Branch hours as needed for Nausea and Vomiting (N/V) or N/V alternatin g with Ondansetro n. simethicone 2020-0 Yes [id number] 80mg Take 1 Univers 80 mg 5-15 tablet by ity of chewable 00:00: mouth [place] tablet 00 after Medical meals and Branch at bedtime. HYDROcodone 2020-0 Yes [id number] 7.5mg Take 15 mL Univers -acetaminop 5-15 by mouth ity of hen 7.5-325 00:00: every 4 [place] as mg/15 mL 00 (four) Medical solution hours as Branch needed for Pain (scale 4-6) or Pain (scale 7-10). proMETHazin 2020-0 Yes [id number] 12.5mg Take 1 Univers e 12.5 mg 5-15 tablet by ity o f tablet 00:00: mouth [place] 00 every 6 Medical (six) Branch hours as needed for Nausea and Vomiting (N/V) or N/V alternatin g with Ondansetro n. simethicone 2020-0 Yes [id number] 80mg Take 1 Univers 80 mg 5-15 tablet by ity of chewable 00:00: mouth [place] tablet 00 after Medical meals and Branch at bedtime. HYDROcodone 2020-0 Yes [id number] 7.5mg Take 15 mL Univers -acetaminop 5-15 by mouth ity of hen 7.5-325 00:00: every 4 [place] [facility] mg/15 mL 00 (four) Medical solution hours as Branch needed for Pain (scale 4-6) or Pain (scale 7-10). proMETHazin 2020-0 Yes [id number] 12.5mg Take 1 Univers e 12.5 mg 5-15 tablet by ity o f tablet 00:00: mouth [place] 00 every 6 Medical (six) Branch hours as needed for Nausea and Vomiting (N/V) or N/V alternatin g with Ondansetro n. simethicone 2020-0 Yes [id number] 80mg Take 1 Univers 80 mg 5-15 tablet by ity of chewable 00:00: mouth [place] tablet 00 after Medical meals and Branch at bedtime. HYDROcodone 2020-0 Yes [id number] 7.5mg Take 15 mL Univers -acetaminop 5-15 by mouth ity of hen 7.5-325 00:00: every 4 [place] as mg/15 mL 00 (four) Medical solution hours as Branch needed for Pain (scale 4-6) or Pain (scale 7-10). proMETHazin 2020-0 Yes [id number] 12.5mg Take 1 Univers e 12.5 mg 5-15 tablet by ity o f tablet 00:00: mouth [place] 00 every 6 Medical (six) Branch hours as needed for Nausea and Vomiting (N/V) or N/V alternatin g with Ondansetro n. simethicone 2020-0 Yes [id number] 80mg Take 1 [facility] 80 mg 5-15 tablet by ity of chewable 00:00: mouth [place] tablet 00 after Medical meals and Branch at bedtime. HYDROcodone 2020-0 Yes [id number] 7.5mg Take 15 mL Univers -acetaminop 5-15 by mouth ity of hen 7.5-325 00:00: every 4 [place] mg/15 mL 00 (four) Medical solution hours as Branch needed for Pain (scale 4-6) or Pain (scale 7-10). proMETHazin 2020-0 Yes [id number] 12.5mg Take 1 Univers e 12.5 mg 5-15 tablet by ity o f tablet 00:00: mouth [place] 00 every 6 Medical (six) Branch hours as needed for Nausea and Vomiting (N/V) or N/V alternatin g with Ondansetro n. simethicone 2020-0 Yes [id number] 80mg Take 1 Univers 80 mg 5-15 tablet by ity of chewable 00:00: mouth [place] tablet 00 after Medical meals and Branch at bedtime. HYDROcodone 2020-0 Yes [id number] 7.5mg Take 15 mL [facility] -acetaminop 5-15 by mouth ity of hen 7.5-325 00:00: every 4 [place] as mg/15 mL 00 (four) Medical solution hours as Branch needed for Pain (scale 4-6) or Pain (scale 7-10). proMETHazin 2020-0 Yes [id number] 12.5mg Take 1 [facility] e 12.5 mg 5-15 tablet by ity o f tablet 00:00: mouth [place] 00 every 6 Medical (six) Branch hours as needed for Nausea and Vomiting (N/V) or N/V alternatin g with Ondansetro n. simethicone 2020-0 Yes [id number] 80mg Take 1 [facility] 80 mg 5-15 tablet by ity of chewable 00:00: mouth [place] tablet 00 after Medical meals and Branch at bedtime. HYDROcodone 2020-0 Yes [id number] 7.5mg Take 15 mL [facility] -acetaminop 5-15 by mouth ity of hen 7.5-325 00:00: every 4 [place] mg/15 mL 00 (four) Medical solution hours as Branch needed for Pain (scale 4-6) or Pain (scale 7-10). proMETHazin 2020-0 Yes [id number] 12.5mg Take 1 [facility] e 12.5 mg 5-15 tablet by ity o f tablet 00:00: mouth [place] 00 every 6 Medical (six) Branch hours as needed for Nausea and Vomiting (N/V) or N/V alternatin g with Ondansetro n. simethicone 2020-0 Yes [id number] 80mg Take 1 [facility] 80 mg 5-15 tablet by ity of chewable 00:00: mouth [place] tablet 00 after Medical meals and Branch at bedtime. HYDROcodone 2020-0 Yes [id number] 7.5mg Take 15 mL [facility] -acetaminop 5-15 by mouth ity of hen 7.5-325 00:00: every 4 [place] mg/15 mL 00 (four) Medical solution hours as Branch needed for Pain (scale 4-6) or Pain (scale 7-10). proMETHazin 2020-0 Yes [id number] 12.5mg Take 1 [facility] e 12.5 mg 5-15 tablet by ity o f tablet 00:00: mouth [place] 00 every 6 Medical (six) Branch hours as needed for Nausea and Vomiting (N/V) or N/V alternatin g with Ondansetro n. simethicone 2020-0 Yes [id number] 80mg Take 1 [facility] 80 mg 5-15 tablet by ity of chewable 00:00: mouth [place] tablet 00 after Medical meals and Branch at bedtime. HYDROcodone 2020-0 Yes [id number] 7.5mg Take 15 mL [facility] -acetaminop 5-15 by mouth ity of hen 7.5-325 00:00: every 4 [place] mg/15 mL 00 (four) Medical solution hours as Branch needed for Pain (scale 4-6) or Pain (scale 7-10). proMETHazin 2020-0 Yes [id number] 12.5mg Take 1 [facility] e 12.5 mg 5-15 tablet by ity o f tablet 00:00: mouth [place] 00 every 6 Medical (six) Branch hours as needed for Nausea and Vomiting (N/V) or N/V alternatin g with Ondansetro n. simethicone 2020-0 Yes [id number] 80mg Take 1 [facility] 80 mg 5-15 tablet by ity of chewable 00:00: mouth [place] tablet 00 after Medical meals and Branch at bedtime. HYDROcodone 2020-0 Yes [id number] 7.5mg Take 15 mL [facility] -acetaminop 5-15 by mouth ity of hen 7.5-325 00:00: every 4 [place] mg/15 mL 00 (four) Medical solution hours as Branch needed for Pain (scale 4-6) or Pain (scale 7-10). proMETHazin 2020-0 Yes [id number] 12.5mg Take 1 [facility] e 12.5 mg 5-15 tablet by ity o f tablet 00:00: mouth [place] 00 every 6 Medical (six) Branch hours as needed for Nausea and Vomiting (N/V) or N/V alternatin g with Ondansetro n. simethicone 2020-0 Yes [id number] 80mg Take 1 [facility] 80 mg 5-15 tablet by ity of chewable 00:00: mouth [place] tablet 00 after Medical meals and Branch at bedtime. HYDROcodone 2020-0 Yes [id number] 7.5mg Take 15 mL [facility] -acetaminop 5-15 by mouth ity of hen 7.5-325 00:00: every 4 [place] mg/15 mL 00 (four) Medical solution hours as Branch needed for Pain (scale 4-6) or Pain (scale 7-10). proMETHazin 2020-0 Yes [id number] 12.5mg Take 1 [facility] e 12.5 mg 5-15 tablet by ity o f tablet 00:00: mouth [place] 00 every 6 Medical (six) Branch hours as needed for Nausea and Vomiting (N/V) or N/V alternatin g with Ondansetro n. simethicone 2020-0 Yes [id number] 80mg Take 1 [facility] 80 mg 5-15 tablet by ity of chewable 00:00: mouth [place] tablet 00 after Medical meals and Branch at bedtime. HYDROcodone 2020-0 Yes [id number] 7.5mg Take 15 mL [facility] -acetaminop 5-15 by mouth ity of hen 7.5-325 00:00: every 4 [place] mg/15 mL 00 (four) Medical solution hours as Branch needed for Pain (scale 4-6) or Pain (scale 7-10). proMETHazin 2020-0 Yes [id number] 12.5mg Take 1 [facility] e 12.5 mg 5-15 tablet by ity o f tablet 00:00: mouth [place] 00 every 6 Medical (six) Branch hours as needed for Nausea and Vomiting (N/V) or N/V alternatin g with Ondansetro n. simethicone 2020-0 Yes [id number] 80mg Take 1 [facility] 80 mg 5-15 tablet by ity of chewable 00:00: mouth [place] tablet 00 after Medical meals and Branch at bedtime. HYDROcodone 2020-0 Yes [id number] 7.5mg Take 15 mL [facility] -acetaminop 5-15 by mouth ity of hen 7.5-325 00:00: every 4 [place] mg/15 mL 00 (four) Medical solution hours as Branch needed for Pain (scale 4-6) or Pain (scale 7-10). proMETHazin 2020-0 Yes [id number] 12.5mg Take 1 [facility] e 12.5 mg 5-15 tablet by ity o f tablet 00:00: mouth [place] 00 every 6 Medical (six) Branch hours as needed for Nausea and Vomiting (N/V) or N/V alternatin g with Ondansetro n. simethicone 2020-0 Yes [id number] 80mg Take 1 [facility] 80 mg 5-15 tablet by ity of chewable 00:00: mouth [place] tablet 00 after Medical meals and Branch at bedtime. HYDROcodone 2020-0 Yes [id number] 7.5mg Take 15 mL [facility] -acetaminop 5-15 by mouth ity of hen 7.5-325 00:00: every 4 [place] mg/15 mL 00 (four) Medical solution hours as Branch needed for Pain (scale 4-6) or Pain (scale 7-10). proMETHazin 2020-0 Yes [id number] 12.5mg Take 1 [facility] e 12.5 mg 5-15 tablet by ity o f tablet 00:00: mouth [place] 00 every 6 Medical (six) Branch hours as needed for Nausea and Vomiting (N/V) or N/V alternatin g with Ondansetro n. simethicone 2020-0 Yes [id number] 80mg Take 1 [facility] 80 mg 5-15 tablet by ity of chewable 00:00: mouth [place] tablet 00 after Medical meals and Branch at bedtime. HYDROcodone 2020-0 Yes [id number] 7.5mg Take 15 mL [facility] -acetaminop 5-15 by mouth ity of hen 7.5-325 00:00: every 4 [place] mg/15 mL 00 (four) Medical solution hours as Branch needed for Pain (scale 4-6) or Pain (scale 7-10). proMETHazin 2020-0 Yes [id number] 12.5mg Take 1 [facility] e 12.5 mg 5-15 tablet by ity o f tablet 00:00: mouth [place] 00 every 6 Medical (six) Branch hours as needed for Nausea and Vomiting (N/V) or N/V alternatin g with Ondansetro n. simethicone 2020-0 Yes [id number] 80mg Take 1 [facility] 80 mg 5-15 tablet by ity of chewable 00:00: mouth [place] tablet 00 after Medical meals and Branch at bedtime. HYDROcodone 2020-0 Yes [id number] 7.5mg Take 15 mL [facility] -acetaminop 5-15 by mouth ity of hen 7.5-325 00:00: every 4 [place] as mg/15 mL 00 (four) Medical solution hours as Branch needed for Pain (scale 4-6) or Pain (scale 7-10). proMETHazin 2020-0 Yes [id number] 12.5mg Take 1 [facility] e 12.5 mg 5-15 tablet by ity o f tablet 00:00: mouth [place] 00 every 6 Medical (six) Branch hours as needed for Nausea and Vomiting (N/V) or N/V alternatin g with Ondansetro n. simethicone 2020-0 Yes [id number] 80mg Take 1 [facility] 80 mg 5-15 tablet by ity of chewable 00:00: mouth [place] tablet 00 after Medical meals and Branch at bedtime. HYDROcodone 2020-0 Yes [id number] 7.5mg Take 15 mL [facility] -acetaminop 5-15 by mouth ity of hen 7.5-325 00:00: every 4 [place] mg/15 mL 00 (four) Medical solution hours as Branch needed for Pain (scale 4-6) or Pain (scale 7-10). proMETHazin 2020-0 Yes [id number] 12.5mg Take 1 [facility] e 12.5 mg 5-15 tablet by ity o f tablet 00:00: mouth [place] 00 every 6 Medical (six) Branch hours as needed for Nausea and Vomiting (N/V) or N/V alternatin g with Ondansetro n. simethicone 2020-0 Yes [id number] 80mg Take 1 [facility] 80 mg 5-15 tablet by ity of chewable 00:00: mouth [place] tablet 00 after Medical meals and Branch at bedtime. HYDROcodone 2020-0 Yes [id number] 7.5mg Take 15 mL [facility] -acetaminop 5-15 by mouth ity of hen 7.5-325 00:00: every 4 [place] as mg/15 mL 00 (four) Medical solution hours as Branch needed for Pain (scale 4-6) or Pain (scale 7-10). proMETHazin 2020-0 Yes [id number] 12.5mg Take 1 [facility] e 12.5 mg 5-15 tablet by ity o f tablet 00:00: mouth [place] 00 every 6 Medical (six) Branch hours as needed for Nausea and Vomiting (N/V) or N/V alternatin g with Ondansetro n. simethicone 2020-0 Yes [id number] 80mg Take 1 [facility] 80 mg 5-15 tablet by ity of chewable 00:00: mouth [place] tablet 00 after Medical meals and Branch at bedtime. HYDROcodone 2020-0 Yes [id number] 7.5mg Take 15 mL [facility] -acetaminop 5-15 by mouth ity of hen 7.5-325 00:00: every 4 [place] as mg/15 mL 00 (four) Medical solution hours as Branch needed for Pain (scale 4-6) or Pain (scale 7-10). proMETHazin 2020-0 Yes [id number] 12.5mg Take 1 [facility] e 12.5 mg 5-15 tablet by ity o f tablet 00:00: mouth [place] 00 every 6 Medical (six) Branch hours as needed for Nausea and Vomiting (N/V) or N/V alternatin g with Ondansetro n. simethicone 2020-0 Yes [id number] 80mg Take 1 [facility] 80 mg 5-15 tablet by ity of chewable 00:00: mouth [place] tablet 00 after Medical meals and Branch at bedtime. HYDROcodone 2020-0 Yes [id number] 7.5mg Take 15 mL [facility] -acetaminop 5-15 by mouth ity of hen 7.5-325 00:00: every 4 [place] as mg/15 mL 00 (four) Medical solution hours as Branch needed for Pain (scale 4-6) or Pain (scale 7-10). proMETHazin 2020-0 Yes [id number] 12.5mg Take 1 [facility] e 12.5 mg 5-15 tablet by ity o f tablet 00:00: mouth [place] 00 every 6 Medical (six) Branch hours as needed for Nausea and Vomiting (N/V) or N/V alternatin g with Ondansetro n. simethicone 2020-0 Yes [id number] 80mg Take 1 [facility] 80 mg 5-15 tablet by ity of chewable 00:00: mouth [place] tablet 00 after Medical meals and Branch at bedtime. HYDROcodone 2020-0 Yes [id number] 7.5mg Take 15 mL [facility] -acetaminop 5-15 by mouth ity of hen 7.5-325 00:00: every 4 [place] as mg/15 mL 00 (four) Medical solution hours as Branch needed for Pain (scale 4-6) or Pain (scale 7-10). proMETHazin 2020-0 Yes [id number] 12.5mg Take 1 [facility] e 12.5 mg 5-15 tablet by ity o f tablet 00:00: mouth [place] 00 every 6 Medical (six) Branch hours as needed for Nausea and Vomiting (N/V) or N/V alternatin g with Ondansetro n. simethicone 2020-0 Yes [id number] 80mg Take 1 [facility] 80 mg 5-15 tablet by ity of chewable 00:00: mouth [place] tablet 00 after Medical meals and Branch at bedtime. HYDROcodone 2020-0 Yes [id number] 7.5mg Take 15 mL [facility] -acetaminop 5-15 by mouth ity of hen 7.5-325 00:00: every 4 [place] as mg/15 mL 00 (four) Medical solution hours as Branch needed for Pain (scale 4-6) or Pain (scale 7-10). proMETHazin 2020-0 Yes [id number] 12.5mg Take 1 [facility] e 12.5 mg 5-15 tablet by ity o f tablet 00:00: mouth [place] 00 every 6 Medical (six) Branch hours as needed for Nausea and Vomiting (N/V) or N/V alternatin g with Ondansetro n. simethicone 2020-0 Yes [id number] 80mg Take 1 [facility] 80 mg 5-15 tablet by ity of chewable 00:00: mouth [place] tablet 00 after Medical meals and Branch at bedtime. ipratropium 2020-0 Yes .5mg 0.5 mg, Uni vers (ATROVENT) 5-14 Inhalation ity of 0.02 % 15:10: , Q4HPRN, [place] nebulizer 00 Starting Medica l solution Maranda Branch 0.5 mg 5/14/20 at 1010, Until Discontinu ed, Routine, Wheezing, Shortness of Breath proMETHazin 2020-0 Yes 12.5mg 12.5 mg, [facility] e 14 Oral, ity of (PHENERGAN) 12:44: Q4HPRN, [place] as tablet 12.5 01 Starting Medi feliciano mg [facility] 12/07/19 at 0744, Until Discontinu ed, Routine, Nausea and Vomiting (N/V), N/V alternatin g with Ondansetro n albuterol 2020-0 Yes 2.5mg 2.5 mg, [facility] ers (PROVENTIL) 12-05 Inhalation it y of 2.5 mg /3 22:45: , Q4HPRN, [place] as mL (0.083 00 Starting Medica l %) [facility] nebulizer 12/06/19 at solution 1745, 2.5 mg Until Discontinu ed, Routine, Shortness of Breath, Wheezing ALPRAZolam 2019-0 Yes .5mg 0.5 mg, [facility] ers (XANAX) 12-05 Oral, ity of tablet 0.5 19:33: BIDPRN, [place] mg 05 Starting Medical [facility] 12/06/19 at 1433, Until Discontinu ed, Routine, anxiety acetaminoph 2020-0 Yes 650mg 650 mg, Un bogdan en 12-05 Oral, ity of (TYLENOL) 19:25: Q4HPRN, [place] 160 mg/5 mL 38 Starting Medi feliciano liquid 650 [facility] 12/06/19 at 1425, Until Discontinu ed, Routine, Pain (scale 1-3) venlafaxine 2019-0 Yes 75mg 75 mg, [facility] ers (EFFEXOR) 12-05 Oral, TID, ity of tablet 75 01:00: First dose [place] mg 00 on Wed Medical 12/05/19 at Branch 1999, Until Discontinu ed famotidine 2019-0 2020- No 20mg 20 mg, [facility] ers (PEPCID 12-05 05-15 Slow IV ity of (PF)) 01:00: 13:22 Push, [place] injection 00 :00 Q12H, 6 Medical 20 mg doses, Branch First dose on Wed12/05/19 at 2000, Last dose on Wed12/08/19 at 0800, Routine
Indicatio n for use: None of the above simethicone 2020-0 Yes 80mg 80 mg, Univ ers (GAS RELIEF 5-12 Oral, ity of (SIMETHICON 23:00: PC+HS, [place] E)) 00 First dose Medical chewable on Tue Branch tablet 80 12/05/19 at mg 1800, Until Discontinu ed, Routine dexamethaso 2019-0 2020- No 10mg 10 mg, IV Univers ne 12-04 Piggyback, ity of (DECADRON) 22:30: 08:10 ONCE, 1 [place] as 10 mg in 00 :00 dose, Tue Medica l NaCl 0.9% 12/05/19 at Bran ch (NS) 1730, 50 piggyback mL albuterol 2019-0 2020- No 2.5mg 2.5 mg, Uni vers (PROVENTIL) 12-04 Inhalation i ty of 2.5 mg /3 21:46: 22:34 , Q6HPRN, [place] mL (0.083 30 :18 Starting Medica l %) Tue Branch nebulizer 12/05/19 at solution 1646, 2.5 mg Until 12/06/19 at 1734, Routine, Shortness of Breath, Wheezing morpHINE 2020-0 Yes 4mg 4 mg, Slow Uni vers injection 4 5-12 IV Push, ity of mg 21:29: Q4HPRN, [place] 52 Starting Medical Tue Branch 12/05/19 at 1629, Until Discontinu ed, Routine, pain not covered by PO meds HYDROcodone 2020-0 Yes 15mg 15 mg, Univ ers -acetaminop 5-12 Oral, ity of hen (HYCET) 21:28: Q4HPRN, [place] as 7.5-325 49 Starting Medical mg/15 mL Tue Branch solution 15 12/05/19 at mg 1628, Until Discontinu ed, Routine, Pain (scale 7-10) HYDROcodone 2020-0 Yes 7.5mg 7.5 mg, Un bogdan -acetaminop 5-12 Oral, ity of hen (HYCET) 21:28: Q4HPRN, [place] as 7.5-325 32 Starting Medical mg/15 mL Tue Branch solution 12/05/19 at 7.5 mg 1628, Until Discontinu ed, Routine, Pain (scale 4-6) phenol 2020-0 Yes 1{spray 1 [place], Univ ers (SORE -12 } Oral, PRN, ity of THROAT 21:07: Starting [place] (PHENOL)) 21 Tue Medical 1.4 % spray 12/05/19 at Br anch bottle 1 1607, [place] Until Discontinu ed, Routine, Sore throat barium 2020-0 2020- No 700mg 700 mg, Univer s sulfate 12-04 Oral, ity of (E-Z DISK) 20:00: 19:17 ONCE, 1 [place] as tablet 700 00 :00 dose, Tue Medi feliciano mg 12/05/19 at Branch 1500, Routine iohexol 2020-0 2020- No 30mL 30 mL, Univers (OMNIPAQUE 12-04 Oral, ity of 300-50 mL)) 19:30: 19:20 ONCE, 1 [place] injection 00 :00 dose, Tue Medic al 30 mL 12/05/19 at Branch 1430, Routine heparin 2019-0 Yes 5000U 5,000 Univers (porcine) 12-04 Units, ity of injection 19:00: Subcutaneo [place] 5,000 Units 00 us, Q8H, Medi feliciano First dose Branch on Wed12/05/19 at 1400, Until Discontinu ed, Routine hydralAZINE 2020-0 Yes 10mg 10 mg, Univ ers (APRESOLINE -12 Intravenou it y of ) injection 17:06: s, Q4HPRN, [place] 10 mg 16 Starting Medical Tue Branch 12/05/19 at 1206, Until Discontinu ed, Routine, SBP >160 acetaminoph 2019-0 2020- No 1000mg 1,000 mg, Univers en ADULT 12-04 IV ity of (OFIRMEV) 17:00: 16:59 Infusion, [place] injection 00 :00 Administer Medi feliciano 1,000 mg over 15 Branch Minutes, Q6H, 4 doses, First dose on Wed12/05/19 at 1200, Last dose on Wed12/06/19 at 0600, Routine
Indicatio n: Non-periop erative Patient
Approved by: Per Policy (NPO Status) hydralAZINE 2020-0 2020- No 5mg 5 mg, Univ ers (APRESOLINE 12-04 Intravenou i ty of ) injection 15:15: 16:25 s, PRN, [place] 5 mg 28 :41 Starting Medical [facility] Branch 12/05/19 at 1015, Until e 12/05/19 at 1125, Routine, Hypertensi on, prn once for systolic bp >185, PACU D5W 0.45% 2020-0 Yes IV Univers NaCl 5-12 Infusion, ity of (1/2NS) 1 L 15:15: at 100 [place] + KCL 20 00 mL/hr, Medical mEq CONTINUOUS Branch , Starting Wed12/05/19 at 1015, Until Discontinu ed, Routine HYDROmorpho 2020-0 2020- No .2mg 0.2 mg, Un bogdan ne 12-04-12 Slow IV ity of (DILAUDID) 15:10: 16:25 Push, [place] injection 21 :41 Q5MIN PRN, Medi feliciano 0.2 mg 10 doses, Branch Starting [facility] 12/05/19 at 1010, Until Wed12/05/19 at 1125, Routine, Pain (scale 7-10), PACU
Us e approved by (Faculty): PACU USE -ANESTHESI A SERVICE-HY DROMORPHON E INJECTIONS FENTanyl PF 2019-0 2020- No 25ug 25 mcg, Un bogdan (SUBLIMAZE 12-04- Slow IV ity o f (PF)) 15:10: 16:25 Push, [place] injection 21 :41 Q5MIN PRN, Medi feliciano 25 mcg 4 doses, Branch Starting [facility] 12/05/19 at 1010, Until Wed12/05/19 at 1125, Routine, Pain (scale 4-6), PACU morpHINE 2020-0 2020- No 4mg 4 mg, Slow Un bogdan injection 4 12-04 05-12 IV Push, ity of mg 14:59: 21:30 Q4HPRN, [place] 25 :16 Starting Medical [facility] Branch 12/05/19 at 0959, Until e 12/05/19 at 1630, Routine, Pain (scale 7-10) ondansetron 2020-0 Yes 4mg 4 mg, Slow Univers (ZOFRAN 512 IV Push, ity of (PF)) 14:55: Q6HPRN, [place] injection 4 50 Starting Medi feliciano mg Tue Branch 12/05/19 at 0955, Until Discontinu ed, Routine, Nausea and Vomiting (N/V) dextroamphe 2020-0 Yes 30mg Take 30 mg [facility] tamine/amph 5-11 by mouth 2 it y of etamine 17:34: (two) [place] (ADDERALL 50 times Medical ORAL) daily. Branch Being prescribed by Psychiatry but the patient has been counseled not to take it due the cardiovasc ular risks omeprazole 2020-0 Yes 40mg Take 40 mg U nivers 40 mg 4-28 by mouth ity of capsule 20:55: daily. [address] omeprazole 2020-0 Yes 40mg Take 40 mg U nivers 40 mg 4-28 by mouth ity of capsule 20:55: daily. [address] omeprazole 2020-0 Yes 40mg Take 40 mg U nivers 40 mg 4-28 by mouth ity of capsule 20:55: daily. [address] omeprazole 2020-0 Yes 40mg Take 40 mg U nivers 40 mg 4-28 by mouth ity of capsule 20:55: daily. [address] cefdinir 2020-0 2020- No 300mg Take 300 Uni vers 300 mg 4-28 04-28 mg by ity of capsule 20:52: 00:00 mouth [place] 58 :00 every 24 Medical (twenty-fo Branch ur) hours. carvedilol 2020-0 Yes 3.125mg Take 3.125 Univers 3.125 mg 3-04 mg by ity of tablet 18:12: mouth 2 [place] [id number] (two) Medical times [place] daily with meals. dextroamphe 2020-0 Yes 30mg Take 30 mg Univers tamine/amph 3-04 by mouth 2 it y of etamine 18:12: (two) [place] (ADDERALL 47 times Medical ORAL) daily. Branch Being prescribed by Psychiatry but the patient has been counseled not to take it due the cardiovasc ular risks cefdinir 2020-0 Yes 300mg Take 300 Univ ers 300 mg 3-04 mg by ity of capsule 18:12: mouth [place] 47 every 24 Medical (twenty-fo Branch ur) hours. carvedilol 2020-0 Yes 3.125mg Take 3.125 Univers 3.125 mg 3-04 mg by ity of tablet 18:12: mouth 2 [place] 47 (two) Medical times Branch daily with meals. dextroamphe 2020-0 Yes 30mg Take 30 mg [facility] tamine/amph 3-04 by mouth 2 it y of etamine 18:12: (two) [place] (ADDERALL 47 times Medical ORAL) daily. Branch Being prescribed by Psychiatry but the patient has been counseled not to take it due the cardiovasc ular risks cefdinir 2020-0 Yes 300mg Take 300 Univ ers 300 mg 3-04 mg by ity of capsule 18:12: mouth [place] 47 every 24 Medical (twenty-fo Branch ur) hours. carvedilol 2020-0 Yes 3.125mg Take 3.125 Univers 3.125 mg 3-04 mg by ity of tablet 18:12: mouth 2 [place] 47 (two) Medical times Branch daily with meals. dextroamphe 2020-0 Yes 30mg Take 30 mg [facility] tamine/amph 3-04 by mouth 2 it y of etamine 18:12: (two) [place] (ADDERALL 47 times Medical ORAL) daily. Branch Being prescribed by Psychiatry but the patient has been counseled not to take it due the cardiovasc ular risks cefdinir 2020-0 Yes 300mg Take 300 Univ ers 300 mg 3-04 mg by ity of capsule 18:12: mouth [place] 47 every 24 Medical (twenty-fo Branch ur) hours. carvedilol 2020-0 Yes 3.125mg Take 3.125 Univers 3.125 mg 3-04 mg by ity of tablet 18:12: mouth 2 [place] 47 (two) Medical times Branch daily with meals. dextroamphe 2020-0 Yes 30mg Take 30 mg [facility] tamine/amph 3-04 by mouth 2 it y of etamine 18:12: (two) [place] (ADDERALL 47 times Medical ORAL) daily. Branch Being prescribed by Psychiatry but the patient has been counseled not to take it due the cardiovasc ular risks cefdinir 2020-0 Yes 300mg Take 300 Univ ers 300 mg 3-04 mg by ity of capsule 18:12: mouth [place] 47 every 24 Medical (twenty-fo Branch ur) hours. dextroamphe 2020-0 Yes 30mg Take 30 mg [facility] tamine/amph 3-04 by mouth 2 it y of etamine 18:12: (two) [place] (ADDERALL 47 times Medical ORAL) daily. Branch Being prescribed by Psychiatry but the patient has been counseled not to take it due the cardiovasc ular risks dextroamphe 2020-0 Yes 30mg Take 30 mg [facility] tamine/amph 3-04 by mouth 2 it y of etamine 18:12: (two) [place] (ADDERALL 47 times Medical ORAL) daily. Branch Being prescribed by Psychiatry but the patient has been counseled not to take it due the cardiovasc ular risks dextroamphe 2020-0 Yes 30mg Take 30 mg Univers tamine/amph 3-04 by mouth 2 it y of etamine 18:12: (two) [place] (ADDERALL 47 times Medical ORAL) daily. Branch Being prescribed by Psychiatry but the patient has been counseled not to take it due the cardiovasc ular risks albuterol 2020-0 Yes 2{puff} Inhale 2 U nivers (VENTOLIN) 2-26 Puffs ity of 90 20:33: every 6 [place] mcg/actuati 11 (six) Medical on inhaler hours as Branc h needed for Wheezing or Shortness of Breath. fluticasone 2020-0 Yes Inhale. Uni vers /umeclidin/ 2-26 ity of vilanter 20:33: [place] (TRELEGY 11 Medical ELLIPTA Branch INHALE) cefdinir 2020-0 Yes 300mg Take 300 Univ ers 300 mg 2-26 mg by ity of capsule 20:33: mouth [place] 11 every 24 Medical (twenty-fo Branch ur) hours. albuterol 2020-0 Yes 2{puff} Inhale 2 U nivers (VENTOLIN) 2-26 Puffs ity of 90 20:33: every 6 [place] mcg/actuati 11 (six) Medical on inhaler hours as Branc h needed for Wheezing or Shortness of Breath. fluticasone 2020-0 Yes Inhale. Uni vers /umeclidin/ 2-26 ity of vilanter 20:33: [place] (TRELEGY 11 Medical ELLIPTA Branch INHALE) cefdinir 2020-0 Yes 300mg Take 300 Univ ers 300 mg 2-26 mg by ity of capsule 20:33: mouth [place] 11 every 24 Medical (twenty-fo Branch ur) hours. albuterol 2020-0 Yes 2{puff} Inhale 2 U nivers (VENTOLIN) 2-26 Puffs ity of 90 20:33: every 6 [place] mcg/actuati 11 (six) Medical on inhaler hours as Branc h needed for Wheezing or Shortness of Breath. fluticasone 2020-0 Yes Inhale. Uni vers /umeclidin/ 2-26 ity of vilanter 20:33: [place] (TRELEGY 11 Medical ELLIPTA Branch INHALE) cefdinir 2020-0 Yes 300mg Take 300 Univ ers 300 mg 2-26 mg by ity of capsule 20:33: mouth [place] 11 every 24 Medical (twenty-fo Branch ur) hours. albuterol 2020-0 Yes 2{puff} Inhale 2 U nivers (VENTOLIN) 2-26 Puffs ity of 90 20:33: every 6 [place] mcg/actuati 11 (six) Medical on inhaler hours as Branc h needed for Wheezing or Shortness of Breath. fluticasone 2020-0 Yes Inhale. Uni vers /umeclidin/ 2-26 ity of vilanter 20:33: [place] ([place] [address] Medical ELLIPTA Branch INHALE) albuterol 2020-0 Yes 2{puff} Inhale 2 U nivers (VENTOLIN) 2-26 Puffs ity of 90 20:33: every 6 [place] mcg/actuati 11 (six) Medical on inhaler hours as Branc h needed for Wheezing or Shortness of Breath. fluticasone 2020-0 Yes Inhale. Uni vers /umeclidin/ 2-26 ity of vilanter 20:33: [place] ([place] [address] Medical ELLIPTA Branch INHALE) albuterol 2020-0 Yes 2{puff} Inhale 2 U nivers (VENTOLIN) 2-26 Puffs ity of 90 20:33: every 6 [place] mcg/actuati 11 (six) Medical on inhaler hours as Branc h needed for Wheezing or Shortness of Breath. fluticasone 2020-0 Yes Inhale. Uni vers /umeclidin/ 2-26 ity of vilanter 20:33: [place] [facility] Medical ELLIPTA Branch INHALE) albuterol 2020-0 Yes 2{puff} Inhale 2 U nivers (VENTOLIN) 2-26 Puffs ity of 90 20:33: every 6 [place] mcg/actuati 11 (six) Medical on inhaler hours as Branc h needed for Wheezing or Shortness of Breath. fluticasone 2020-0 Yes Inhale. Uni vers /umeclidin/ 2-26 ity of vilanter 20:33: [place] [facility] ELLIPTA Branch INHALE) albuterol 2020-0 Yes 2{puff} Inhale 2 U nivers (VENTOLIN) 2-26 Puffs ity of 90 20:33: every 6 [place] mcg/actuati 11 (six) Medical on inhaler hours as Branc h needed for Wheezing or Shortness of Breath. fluticasone 2020-0 Yes Inhale. Uni vers /umeclidin/ 2-26 ity of vilanter 20:33: [place] ([facility] 11 Medical ELLIPTA Branch INHALE) albuterol 2020-0 Yes 2{puff} Inhale 2 U nivers (VENTOLIN) 2-26 Puffs ity of 90 20:33: every 6 [place] mcg/actuati 11 (six) Medical on inhaler hours as Branc h needed for Wheezing or Shortness of Breath. fluticasone 2020-0 Yes Inhale. Uni vers /umeclidin/ 2-26 ity of vilanter 20:33: [place] ([place] [address] Medical ELLIPTA Branch INHALE) albuterol 2020-0 Yes 2{puff} Inhale 2 U nivers (VENTOLIN) 2-26 Puffs ity of 90 20:33: every 6 [place] mcg/actuati 11 (six) Medical on inhaler hours as Branc h needed for Wheezing or Shortness of Breath. fluticasone 2020-0 Yes Inhale. Uni vers /umeclidin/ 2-26 ity of vilanter 20:33: [place] ([place] [address] Medical ELLIPTA Branch INHALE) albuterol 2020-0 Yes 2{puff} Inhale 2 U nivers (VENTOLIN) 2-26 Puffs ity of 90 20:33: every 6 [place] mcg/actuati 11 (six) Medical on inhaler hours as Branc h needed for Wheezing or Shortness of Breath. fluticasone 2020-0 Yes Inhale. Uni vers /umeclidin/ 2-26 ity of vilanter 20:33: [place] ([facility] Medical ELLIPTA Branch INHALE) albuterol 2020-0 Yes 2{puff} Inhale 2 U nivers (VENTOLIN) 2-26 Puffs ity of 90 20:33: every 6 [place] mcg/actuati 11 (six) Medical on inhaler hours as Branc h needed for Wheezing or Shortness of Breath. fluticasone 2020-0 Yes Inhale. Uni vers /umeclidin/ 2- ity of vilanter 20:33: [place] ([facility] 11 Medical ELLIPTA Branch INHALE) fluticasone 2020-0 Yes Inhale. Uni vers /umeclidin/ 07-27 ity of vilanter 19:44: [place] ([facility] 39 Medical ELLIPTA Branch INHALE) fluticasone 2020-0 Yes Inhale. Uni vers /umeclidin/ 07-27 ity of vilanter 19:44: [place] ([facility] 39 Medical ELLIPTA Branch INHALE) fluticasone 2020-0 Yes Inhale. Uni vers /umeclidin/ 07-27 ity of vilanter 19:44: [place] ([facility] 39 Medical ELLIPTA Branch INHALE) fluticasone 2020-0 Yes Inhale. Uni vers /umeclidin/ 07-27 ity of vilanter 19:44: [place] ([facility] 39 Medical ELLIPTA Branch INHALE) fluticasone 2020-0 Yes Inhale. Uni vers /umeclidin/ 07-27 ity of vilanter 19:44: [place] ([facility] 39 Medical ELLIPTA Branch INHALE) predniSONE 2018-07 Yes [id number] 10mg Take 1 Univers 10 mg 0-11 tablet by ity of tablet 00:00: mouth [place] 00 daily. Medical Take with Branch food. predniSONE 2018-07 Yes [id number] 10mg Take 1 Univers 10 mg 0-11 tablet by ity of tablet 00:00: mouth [place] 00 daily. Medical Take with Branch food. predniSONE 2018-07 Yes [id number] 10mg Take 1 Univers 10 mg 0-11 tablet by ity of tablet 00:00: mouth [place] 00 daily. Medical Take with Branch food. predniSONE 2018-07 Yes [id number] 10mg Take 1 [facility] 10 mg 0-11 tablet by ity of tablet 00:00: mouth [place] 00 daily. Medical Take with Branch food. predniSONE 2018-07 Yes [id number] 10mg Take 1 [facility] 10 mg 0-11 tablet by ity of tablet 00:00: mouth [place] 00 daily. Medical Take with Branch food. predniSONE 2018- Yes [id number] 10mg Take 1 [facility] 10 mg 0-11 tablet by ity of tablet 00:00: mouth [place] 00 daily. Medical Take with Branch food. predniSONE 2018- Yes [id number] 10mg Take 1 [facility] 10 mg 0-11 tablet by ity of tablet 00:00: mouth [place] 00 daily. Medical Take with Branch food. predniSONE 2018- Yes [id number] 10mg Take 1 [facility] 10 mg 0-11 tablet by ity of tablet 00:00: mouth [place] 00 daily. Medical Take with Branch food. predniSONE 2018- Yes [id number] 10mg Take 1 [facility] 10 mg 0-11 tablet by ity of tablet 00:00: mouth [place] 00 daily. Medical Take with Branch food. predniSONE 2018- Yes [id number] 10mg Take 1 Univers 10 mg 0-11 tablet by ity of tablet 00:00: mouth [place] 00 daily. Medical Take with Branch food. predniSONE 2018- Yes [id number] 10mg Take 1 Univers 10 mg 0-11 tablet by ity of tablet 00:00: mouth [place] 00 daily. Medical Take with Branch food. predniSONE 2018-07 Yes [id number] 10mg Take 1 Univers 10 mg 0-11 tablet by ity of tablet 00:00: mouth [place] 00 daily. Medical Take with Branch food. predniSONE 2018- Yes [id number] 10mg Take 1 Univers 10 mg 0-11 tablet by ity of tablet 00:00: mouth [place] 00 daily. Medical Take with Branch food. predniSONE 2018- Yes [id number] 10mg Take 1 [facility] 10 mg 0-11 tablet by ity of tablet 00:00: mouth [place] 00 daily. Medical Take with Branch food. predniSONE 2018- Yes [id number] 10mg Take 1 [facility] 10 mg 0-11 tablet by ity of tablet 00:00: mouth [place] 00 daily. Medical Take with Branch food. predniSONE 2019- Yes [id number] 10mg Take 1 [facility] 10 mg 0-11 tablet by ity of tablet 00:00: mouth [place] 00 daily. Medical Take with Branch food. predniSONE 2018- Yes [id number] 10mg Take 1 [facility] 10 mg 0-11 tablet by ity of tablet 00:00: mouth [place] 00 daily. Medical Take with Branch food. predniSONE 2018- Yes [id number] 10mg Take 1 [facility] 10 mg 0-11 tablet by ity of tablet 00:00: mouth [place] 00 daily. Medical Take with Branch food. predniSONE 2018- Yes [id number] 10mg Take 1 Univers 10 mg 0-11 tablet by ity of tablet 00:00: mouth [place] 00 daily. Medical Take with Branch food. predniSONE 2018- Yes [id number] 10mg Take 1 Univers 10 mg 0-11 tablet by ity of tablet 00:00: mouth [place] 00 daily. Medical Take with Branch food. predniSONE 2018- Yes [id number] 10mg Take 1 Univers 10 mg 0-11 tablet by ity of tablet 00:00: mouth [place] 00 daily. Medical Take with Branch food. predniSONE 2018- Yes [id number] 10mg Take 1 Univers 10 mg 0-11 tablet by ity of tablet 00:00: mouth [place] 00 daily. Medical Take with Branch food. predniSONE 2018- Yes [id number] 10mg Take 1 Univers 10 mg 0-11 tablet by ity of tablet 00:00: mouth [place] 00 daily. Medical Take with Branch food. predniSONE 2018- Yes [id number] 10mg Take 1 Univers 10 mg 0-11 tablet by ity of tablet 00:00: mouth [place] 00 daily. Medical Take with Branch food. predniSONE 2018- Yes [id number] 10mg Take 1 Univers 10 mg 0-11 tablet by ity of tablet 00:00: mouth [place] 00 daily. Medical Take with Branch food. predniSONE 2018- Yes [id number] 10mg Take 1 Univers 10 mg 0-11 tablet by ity of tablet 00:00: mouth [place] 00 daily. Medical Take with Branch food. predniSONE 2018- Yes [id number] 10mg Take 1 [facility] 10 mg 0-11 tablet by ity of tablet 00:00: mouth [place] 00 daily. Medical Take with Branch food. predniSONE 2019- Yes [id number] 10mg Take 1 Univers 10 mg 0-11 tablet by ity of tablet 00:00: mouth [place] 00 daily. Medical Take with Branch food. predniSONE 2018- Yes [id number] 10mg Take 1 Univers 10 mg 0-11 tablet by ity of tablet 00:00: mouth [place] 00 daily. Medical Take with Branch food. predniSONE 2018- Yes [id number] 10mg Take 1 Univers 10 mg 0-11 tablet by ity of tablet 00:00: mouth [place] 00 daily. Medical Take with Branch food. predniSONE 2018- Yes [id number] 10mg Take 1 Univers 10 mg 0-11 tablet by ity of tablet 00:00: mouth [place] 00 daily. Medical Take with Branch food. predniSONE 2018- Yes [id number] 10mg Take 1 [facility] 10 mg 0-11 tablet by ity of tablet 00:00: mouth [place] 00 daily. Medical Take with Branch food. predniSONE 2018- Yes [id number] 10mg Take 1 [facility] 10 mg 0-11 tablet by ity of tablet 00:00: mouth [place] 00 daily. Medical Take with Branch food. predniSONE 2018- Yes [id number] 10mg Take 1 [facility] 10 mg 0-11 tablet by ity of tablet 00:00: mouth [place] 00 daily. Medical Take with Branch food. predniSONE 2018- Yes [id number] 10mg Take 1 [facility] 10 mg 0-11 tablet by ity of tablet 00:00: mouth [place] 00 daily. Medical Take with Branch food. predniSONE 2018- Yes [id number] 10mg Take 1 Univers 10 mg 0-11 tablet by ity of tablet 00:00: mouth [place] 00 daily. Medical Take with Branch food. predniSONE 2018-07 Yes [id number] 10mg Take 1 Univers 10 mg 0-11 tablet by ity of tablet 00:00: mouth [place] 00 daily. Medical Take with Branch food. predniSONE 2018- Yes [id number] 10mg Take 1 Univers 10 mg 0-11 tablet by ity of tablet 00:00: mouth [place] 00 daily. Medical Take with Branch food. predniSONE 2018- Yes [id number] 10mg Take 1 [facility] 10 mg 0-11 tablet by ity of tablet 00:00: mouth [place] 00 daily. Medical Take with Branch food. predniSONE 2018- Yes [id number] 10mg Take 1 [facility] 10 mg 0-11 tablet by ity of tablet 00:00: mouth [place] 00 daily. Medical Take with Branch food. predniSONE 2019- Yes [id number] 10mg Take 1 Univers 10 mg 0-11 tablet by ity of tablet 00:00: mouth [place] 00 daily. Medical Take with Branch food. predniSONE 2018- Yes [id number] 10mg Take 1 Univers 10 mg 0-11 tablet by ity of tablet 00:00: mouth [place] 00 daily. Medical Take with Branch food. predniSONE 2018- Yes [id number] 10mg Take 1 Univers 10 mg 0-11 tablet by ity of tablet 00:00: mouth daily. Medical Take with Branch food. predniSONE 2019- Yes [id number] 10mg Take 1 Univers 10 mg 0-11 tablet by ity of tablet 00:00: mouth daily. Medical Take with Branch food. predniSONE 2018- Yes [id number] 10mg Take 1 Univers 10 mg 0-11 tablet by ity of tablet 00:00: mouth daily. Medical Take with Branch food. omeprazole 2019-0 Yes 40mg Take 40 mg U nivers 40 mg 8-22 by mouth ity of capsule 21:10: daily. [facility] omeprazole 2018-0 Yes 40mg Take 40 mg U nivers 40 mg 8-22 by mouth ity of capsule 21:10: daily. [facility] omeprazole 2019-0 Yes 40mg Take 40 mg U nivers 40 mg 8-22 by mouth ity of capsule 21:10: daily. [facility] omeprazole 2018-0 Yes 40mg Take 40 mg U nivers 40 mg 8-22 by mouth ity of capsule 21:10: daily. [facility] omeprazole 2019-0 Yes 40mg Take 40 mg U nivers 40 mg 8-22 by mouth ity of capsule 21:10: daily. [facility] omeprazole 2019-0 Yes 40mg Take 40 mg U nivers 40 mg 8-22 by mouth ity of capsule 21:10: daily. [facility] omeprazole 2019-0 Yes 40mg Take 40 mg U nivers 40 mg 8-22 by mouth ity of capsule 21:10: daily. [facility] omeprazole 2019-0 Yes 40mg Take 40 mg U nivers 40 mg 8-22 by mouth ity of capsule 21:10: daily. [facility] omeprazole 2019-0 Yes 40mg Take 40 mg U nivers 40 mg 8-22 by mouth ity of capsule 21:10: daily. [facility] omeprazole 2019-0 Yes 40mg Take 40 mg U nivers 40 mg 8-22 by mouth ity of capsule 21:10: daily. [facility] omeprazole 2019-0 Yes 40mg Take 40 mg U nivers 40 mg 8-22 by mouth ity of capsule 21:10: daily. [facility] omeprazole 2019-0 Yes 40mg Take 40 mg U nivers 40 mg 8-22 by mouth ity of capsule 21:10: daily. [address] omeprazole 2019-0 Yes 40mg Take 40 mg U nivers 40 mg 8-22 by mouth ity of capsule 21:10: daily. [address] omeprazole 2019-0 Yes 40mg Take 40 mg U nivers 40 mg 8-22 by mouth ity of capsule 21:10: daily. [address] omeprazole 2018-0 Yes 40mg Take 40 mg U nivers 40 mg 8-22 by mouth ity of capsule 21:10: daily. [address] omeprazole 0 Yes 40mg Take 40 mg U nivers 40 mg 8-22 by mouth ity of capsule 21:10: daily. [address] omeprazole 0 Yes 40mg Take 40 mg U nivers 40 mg 8-22 by mouth ity of capsule 21:10: daily. [address] omeprazole 2018-0 Yes 40mg Take 40 mg U nivers 40 mg 8-22 by mouth ity of capsule 21:10: daily. [address] omeprazole 0 Yes 40mg Take 40 mg U nivers 40 mg 8-22 by mouth ity of capsule 21:10: daily. [address] omeprazole 2018-0 Yes 40mg Take 40 mg U nivers 40 mg 8-22 by mouth ity of capsule 21:10: daily. [address] omeprazole 2018-0 Yes 40mg Take 40 mg U nivers 40 mg 8-22 by mouth ity of capsule 21:10: daily. [address] omeprazole 2019-0 Yes 40mg Take 40 mg U nivers 40 mg 8-22 by mouth ity of capsule 21:10: daily. [address] omeprazole 2019-0 Yes 40mg Take 40 mg U nivers 40 mg 8-22 by mouth ity of capsule 21:10: daily. [address] omeprazole 2019-0 Yes 40mg Take 40 mg U nivers 40 mg 8-22 by mouth ity of capsule 21:10: daily. [address] omeprazole 2018-0 Yes 40mg Take 40 mg U nivers 40 mg 8-22 by mouth ity of capsule 21:10: daily. [address] omeprazole 2018-0 Yes 40mg Take 40 mg U nivers 40 mg 8-22 by mouth ity of capsule 21:10: daily. [place] [facility] omeprazole Yes 40mg Take 40 mg U nivers 40 mg 8-22 by mouth ity of capsule 21:10: daily. [place] [address] Medical Branch omeprazole Yes 40mg Take 40 mg U nivers 40 mg 8-22 by mouth ity of capsule 21:10: daily. [place] [address] Medical Branch venlafaxine Yes major 75mg Q.5D Take [address] [facility] (EFFEXOR) 8-12 depressive by mouth [facility] MG 14:49: disorder (two) Medical tablet 19 times Center daily. ALPRAZolam Yes 1mg Take [address] [facility] (XANAX) 1 8-12 by mouth [facility] tablet 14:49: (three) Medic al 19 times Center daily as needed for Anxiety. predniSONE Yes asthma 10mg QD Take [address] [facility] (DELTASONE) 8-12 by mouth [facility] 10 MG 14:49: daily. Medical tablet 19 Center roflumilast Yes 500ug QD Take [address] (DALIRESP) 8-12 mcg by [facility] 500 [facility]cg Tab 14:49: mouth Medic al tablet 19 daily. Center albuterol Yes 1{puff} Inhale [address] HFA 8-12 puff by [facility] (VENTOLIN 14:49: mouth via Med ical HFA) 90 19 inhaler Center mcg/actuati every 6 on inhaler (six) hours as needed for Wheezing. dextroamphe Yes 20mg Q.5D Take [address] [facility] tamine-amph 8-12 by mouth 2 Niurka kes etamine 14:49: (two) Medical (ADDERALL) 19 times Center 20 mg Tab daily. tablet pantoprazol 2019- No 40mg Take 40 mg Univers e 40 mg EC 03-06 0812 by mouth. ity of tablet 00:00: 04:59 [place] 00 : Medical Branch pantoprazol 2020- No 40mg Take 40 mg Univers e 40 mg EC 812 0812 by mouth. ity of tablet 00:00: 04:59 [place] 00 : Medical Branch pantoprazol 2020- No 40mg Take 40 mg Univers e 40 mg EC 8-12 08-12 by mouth. ity of tablet 00:00: 04:59 [place] 00 :00 Medical Branch pantoprazol 2019-0 2020- No 40mg Take 40 mg Univers e 40 mg EC 03-06 08-12 by mouth. ity of tablet 00:00: 04:59 [place] 00 :00 Medical Branch pantoprazol 2019-0 2020- No 40mg Take 40 mg Univers e 40 mg EC 03-06 08-12 by mouth. ity of tablet 00:00: 04:59 [place] 00 :00 Medical Branch pantoprazol 2019-0 2020- No 40mg Take 40 mg Univers e 40 mg EC 8 08-12 by mouth. ity of tablet 00:00: 04:59 [place] 00 :00 Medical Branch pantoprazol 2019-0 2020- No 40mg Take 40 mg Univers e 40 mg EC 03-06 08-12 by mouth. ity of tablet 00:00: 04:59 [place] 00 :00 Medical Branch pantoprazol 2019-0 2020- No 40mg Take 40 mg Univers e 40 mg EC 03-06 08-12 by mouth. ity of tablet 00:00: 04:59 [place] 00 :00 Medical Branch pantoprazol 2019-0 2020- No 40mg Take 40 mg Univers e 40 mg EC 8 08-12 by mouth. ity of tablet 00:00: 04:59 [place] 00 :00 Medical Branch pantoprazol 2019-0 2020- No 40mg Take 40 mg Univers e 40 mg EC 03-06 08-12 by mouth. ity of tablet 00:00: 04:59 [place] 00 :00 Medical Branch pantoprazol 2019-0 2020- No 40mg Take 40 mg Univers e 40 mg EC 03-06 08-12 by mouth. ity of tablet 00:00: 04:59 [place] 00 :00 Medical Branch pantoprazol 2019-0 2020- No 40mg Take 40 mg Univers e 40 mg EC 03-06 08-12 by mouth. ity of tablet 00:00: 04:59 [place] 00 :00 Medical Branch pantoprazol 2019-0 2020- No 40mg Take 40 mg Univers e 40 mg EC 03-06 08-12 by mouth. ity of tablet 00:00: 04:59 [place] 00 :00 Medical Branch pantoprazol 2019-0 2020- No 40mg Take 40 mg Univers e 40 mg EC 8-12 08-12 by mouth. ity of tablet 00:00: 04:59 [place] 00 :00 Medical Branch pantoprazol 2019-0 2020- No 40mg Take 40 mg Univers e 40 mg EC 03-06 by mouth. ity of tablet 00:00: 04:59 [place] 00 :00 Medical Branch pantoprazol 2019-0 2020- No 40mg Take 40 mg Univers e 40 mg EC 03-06 by mouth. ity of tablet 00:00: 04:59 [place] 00 :00 Medical Branch pantoprazol 2019-0 2020- No 40mg Take 40 mg Univers e 40 mg EC 03-06 by mouth. ity of tablet 00:00: 04:59 [place] 00 :00 Medical Branch pantoprazol 2019-0 2020- No 40mg Take 40 mg Univers e 40 mg EC 03-06 by mouth. ity of tablet 00:00: 04:59 [place] 00 :00 Medical Branch pantoprazol 2019-0 2020- No 40mg Take 40 mg Univers e 40 mg EC 03-06 by mouth. ity of tablet 00:00: 04:59 [place] 00 :00 Medical Branch pantoprazol 2019-0 2020- No 40mg Take 40 mg Univers e 40 mg EC 03-06 by mouth. ity of tablet 00:00: 04:59 [place] 00 :00 Medical Branch pantoprazol 2019-0 2020- No 40mg Take 40 mg Univers e 40 mg EC 03-06 by mouth. ity of tablet 00:00: 04:59 [place] 00 :00 Medical Branch dextroamphe 2019-0 Yes Take by Uni vers tamine/amph 3-11 mouth. ity of etamine 00:05: Being [place] (ADDERALL 21 prescribed Medi feliciano ORAL) by Branch Psychiatry but the patient has been counseled not to take it due the cardiovasc ular risks dextroamphe 2019-0 Yes Take by Uni vers tamine/amph 3-11 mouth. ity of etamine 00:05: Being [place] (ADDERALL 21 prescribed Medi feliciano ORAL) by Branch Psychiatry but the patient has been counseled not to take it due the cardiovasc ular risks dextroamphe 2019-0 Yes Take by Uni vers tamine/amph 3-11 mouth. ity of etamine 00:05: Being [place] (ADDERALL 21 prescribed Medi feliciano ORAL) by [facility] but the patient has been counseled not to take it due the cardiovasc ular risks dextroamphe 2019-0 Yes Take by Uni vers tamine/amph 3-11 mouth. ity of etamine 00:05: Being [place] (ADDERALL 21 prescribed Medi feliciano ORAL) by [facility] but the patient has been counseled not to take it due the cardiovasc ular risks dextroamphe 2019-0 Yes Take by Uni vers tamine/amph 3-11 mouth. ity of etamine 00:05: Being [place] (ADDERALL 21 prescribed Medi feliciano ORAL) by [facility] but the patient has been counseled not to take it due the cardiovasc ular risks dextroamphe 2019-0 Yes Take by Uni vers tamine/amph 3-11 mouth. ity of etamine 00:05: Being [place] (ADDERALL 21 prescribed Medi feliciano ORAL) by [facility] but the patient has been counseled not to take it due the cardiovasc ular risks dextroamphe 2019-0 Yes Take by Uni vers tamine/amph 3-11 mouth. ity of etamine 00:05: Being [place] (ADDERALL 21 prescribed Medi feliciano ORAL) by [facility] but the patient has been counseled not to take it due the cardiovasc ular risks dextroamphe 2019-0 Yes Take by Uni vers tamine/amph 3-11 mouth. ity of etamine 00:05: Being [place] (ADDERALL 21 prescribed Medi feliciano ORAL) by [facility] but the patient has been counseled not to take it due the cardiovasc ular risks dextroamphe 2019-0 Yes Take by Uni vers tamine/amph 3-11 mouth. ity of etamine 00:05: Being [place] (ADDERALL 21 prescribed Medi feliciano ORAL) by [facility] but the patient has been counseled not to take it due the cardiovasc ular risks dextroamphe 2019-0 Yes Take by Uni vers tamine/amph 3-11 mouth. ity of etamine 00:05: Being [place] (ADDERALL 21 prescribed Medi feliciano ORAL) by [facility] but the patient has been counseled not to take it due the cardiovasc ular risks dextroamphe 2019-0 Yes Take by Uni vers tamine/amph 3-11 mouth. ity of etamine 00:05: Being [place] (ADDERALL 21 prescribed Medi feliciano ORAL) by Branch Psychiatry but the patient has been counseled not to take it due the cardiovasc ular risks dextroamphe 2019-0 Yes Take by Uni vers tamine/amph 3-11 mouth. ity of etamine 00:05: Being [place] (ADDERALL 21 prescribed Medi feliciano ORAL) by Branch Psychiatry but the patient has been counseled not to take it due the cardiovasc ular risks dextroamphe 2019-0 Yes Take by Uni vers tamine/amph 3-11 mouth. ity of etamine 00:05: Being [place] (ADDERALL 21 prescribed Medi feliciano ORAL) by Branch Psychiatry but the patient has been counseled not to take it due the cardiovasc ular risks dextroamphe 2019-0 Yes Take by Uni vers tamine/amph 3-11 mouth. ity of etamine 00:05: Being [place] (ADDERALL 21 prescribed Medi feliciano ORAL) by Branch Psychiatry but the patient has been counseled not to take it due the cardiovasc ular risks dextroamphe 2019-0 Yes Take by Uni vers tamine/amph 3-11 mouth. ity of etamine 00:05: Being [place] (ADDERALL 21 prescribed Medi feliciano ORAL) by Branch Psychiatry but the patient has been counseled not to take it due the cardiovasc ular risks dextroamphe 2019-0 Yes Take by Uni vers tamine/amph 3-11 mouth. ity of etamine 00:05: Being [place] (ADDERALL 21 prescribed Medi feliciano ORAL) by Branch Psychiatry but the patient has been counseled not to take it due the cardiovasc ular risks dextroamphe 2019-0 Yes Take by Uni vers tamine/amph 3-11 mouth. ity of etamine 00:05: Being [place] (ADDERALL 21 prescribed Medi feliciano ORAL) by Branch Psychiatry but the patient has been counseled not to take it due the cardiovasc ular risks dextroamphe 2019-0 Yes Take by Uni vers tamine/amph 3-11 mouth. ity of etamine 00:05: Being [place] (ADDERALL 21 prescribed Medi feliciano ORAL) by Branch Psychiatry but the patient has been counseled not to take it due the cardiovasc ular risks dextroamphe 2019-0 Yes Take by Uni vers tamine/amph 3-11 mouth. ity of etamine 00:05: Being [place] (ADDERALL 21 prescribed Medi feliciano ORAL) by Branch Psychiatry but the patient has been counseled not to take it due the cardiovasc ular risks dextroamphe 2019-0 Yes Take by Uni vers tamine/amph 3-11 mouth. ity of etamine 00:05: Being [place] (ADDERALL 21 prescribed Medi feliciano ORAL) by Branch Psychiatry but the patient has been counseled not to take it due the cardiovasc ular risks dextroamphe 2019-0 Yes Take by Uni vers tamine/amph 3-11 mouth. ity of etamine 00:05: Being [place] (ADDERALL 21 prescribed Medi feliciano ORAL) by Branch Psychiatry but the patient has been counseled not to take it due the cardiovasc ular risks dextroamphe 2019-0 Yes Take by Uni vers tamine/amph 3-11 mouth. ity of etamine 00:05: Being [place] (ADDERALL 21 prescribed Medi feliciano ORAL) by Branch Psychiatry but the patient has been counseled not to take it due the cardiovasc ular risks dextroamphe 2019-0 Yes Take by Uni vers tamine/amph 3-11 mouth. ity of etamine 00:05: Being [place] (ADDERALL 21 prescribed Medi feliciano ORAL) by Branch Psychiatry but the patient has been counseled not to take it due the cardiovasc ular risks dextroamphe 2019-0 Yes Take by Uni vers tamine/amph 3-11 mouth. ity of etamine 00:05: Being [place] (ADDERALL 21 prescribed Medi feliciano ORAL) by Branch Psychiatry but the patient has been counseled not to take it due the cardiovasc ular risks dextroamphe 2019-0 Yes Take by Un bogdan tamine/amph 3-11 mouth. ity of etamine 00:05: Being [place] (ADDERALL 21 prescribed Medi feliciano ORAL) by Branch Psychiatry but the patient has been counseled not to take it due the cardiovasc ular risks dextroamphe 2019-0 Yes Take by Uni vers tamine/amph 3-11 mouth. ity of etamine 00:05: Being [place] (ADDERALL 21 prescribed Medi feliciano ORAL) by Branch Psychiatry but the patient has been counseled not to take it due the cardiovasc ular risks dextroamphe 2019- Yes Take by Uni vers tamine/amph 3-11 mouth. ity of etamine 00:05: Being [place] (ADDERALL 21 prescribed Medi feliciano ORAL) by Branch Psychiatry but the patient has been counseled not to take it due the cardiovasc ular risks carvedilol 2018- Yes 3.125mg Take 3.125 Univers 3.125 mg 3-07 mg by ity of tablet 20:27: mouth 2 [place] [id number] (two) Medical times Branch daily with meals. carvedilol 2018- Yes 3.125mg Take 3.125 Univers 3.125 mg 3-07 mg by ity of tablet 20:27: mouth 2 [place] [id number] (two) Medical times Branch daily with meals. carvedilol 2018- Yes 3.125mg Take 3.125 Univers 3.125 mg 3-07 mg by ity of tablet 20:27: mouth 2 [place] [id number] (two) Medical times Branch daily with meals. carvedilol 2018- Yes 3.125mg Take 3.125 Univers 3.125 mg 3-07 mg by ity of tablet 20:27: mouth 2 [place] [id number] (two) Medical times Branch daily with meals. carvedilol 2018- Yes 3.125mg Take 3.125 Univers 3.125 mg 3-07 mg by ity of tablet 20:27: mouth 2 [place] [id number] (two) Medical times Branch daily with meals. carvedilol 2018- Yes 3.125mg Take 3.125 Univers 3.125 mg 3-07 mg by ity of tablet 20:27: mouth 2 [place] [id number] (two) Medical times Branch daily with meals. carvedilol 2018-0 Yes 3.125mg Take 3.125 Univers 3.125 mg 3-07 mg by ity of tablet 20:27: mouth 2 [place] [id number] (two) Medical times Branch daily with meals. carvedilol 2018-0 Yes 3.125mg Take 3.125 Univers 3.125 mg 3-07 mg by ity of tablet 20:27: mouth 2 [place] [id number] (two) Medical times Branch daily with meals. carvedilol 2018-0 Yes 3.125mg Take 3.125 Univers 3.125 mg 3-07 mg by ity of tablet 20:27: mouth 2 [place] [id number] (two) Medical times Branch daily with meals. carvedilol 2019-0 Yes 3.125mg Take 3.125 [facility] 3.125 mg 3-07 mg by ity of tablet 20:27: mouth 2 [place] [address] (two) Medical times Branch daily with meals. carvedilol 2019-0 Yes 3.125mg Take 3.125 [facility] 3.125 mg 3-07 mg by ity of tablet 20:27: mouth 2 [place] 22 (two) Medical times Branch daily with meals. carvedilol 2019-0 Yes 3.125mg Take 3.125 [facility] 3.125 mg 3-07 mg by ity of tablet 20:27: mouth 2 [place] [address] (two) Medical times Branch daily with meals. carvedilol 2019-0 Yes 3.125mg Take 3.125 [facility] 3.125 mg 3-07 mg by ity of tablet 20:27: mouth 2 [place] [address] (two) Medical times Branch daily with meals. carvedilol 2018-0 Yes 3.125mg Take 3.125 [facility] 3.125 mg 3-07 mg by ity of tablet 20:27: mouth 2 [place] [address] (two) Medical times Branch daily with meals. carvedilol 2018-0 Yes 3.125mg Take 3.125 [facility] 3.125 mg 3-07 mg by ity of tablet 20:27: mouth 2 [place] [address] (two) Medical times Branch daily with meals. carvedilol 2018-0 Yes 3.125mg Take 3.125 [facility] 3.125 mg 3-07 mg by ity of tablet 20:27: mouth 2 [place] [address] (two) Medical times Branch daily with meals. carvedilol 2018-0 Yes 3.125mg Take 3.125 [facility] 3.125 mg 3-07 mg by ity of tablet 20:27: mouth 2 [place] [address] (two) Medical times Branch daily with meals. carvedilol 2019-0 Yes 3.125mg Take 3.125 [facility] 3.125 mg 3-07 mg by ity of tablet 20:27: mouth 2 [place] [address] (two) Medical times Branch daily with meals. carvedilol 2019-0 Yes 3.125mg Take 3.125 [facility] 3.125 mg 3-07 mg by ity of tablet 20:27: mouth 2 [place] [address] (two) Medical times Branch daily with meals. carvedilol 2019-0 Yes 3.125mg Take 3.125 [facility] 3.125 mg 3-07 mg by ity of tablet 20:27: mouth 2 [place] [address] (two) Medical times Branch daily with meals. carvedilol 2019-0 Yes 3.125mg Take 3.125 [facility] 3.125 mg 3-07 mg by ity of tablet 20:27: mouth 2 [place] [address] (two) Medical times Branch daily with meals. carvedilol 2019-0 Yes 3.125mg Take 3.125 [facility] 3.125 mg 3-07 mg by ity of tablet 20:27: mouth 2 [place] [address] (two) Medical times Branch daily with meals. carvedilol 2019-0 Yes 3.125mg Take 3.125 [facility] 3.125 mg 3-07 mg by ity of tablet 20:27: mouth 2 [place] [address] (two) Medical times Branch daily with meals. carvedilol 2019-0 Yes 3.125mg Take 3.125 [facility] 3.125 mg 3-07 mg by ity of tablet 20:27: mouth 2 [place] [address] (two) Medical times Branch daily with meals. carvedilol 2019-0 Yes 3.125mg Take 3.125 [facility] 3.125 mg 3-07 mg by ity of tablet 20:27: mouth 2 [place] [address] (two) Medical times Branch daily with meals. carvedilol 2019-0 Yes 3.125mg Take 3.125 [facility] 3.125 mg 3-07 mg by ity of tablet 20:27: mouth 2 [place] [address] (two) Medical times Branch daily with meals. carvedilol 2019-0 Yes 3.125mg Take 3.125 [facility] 3.125 mg 3-07 mg by ity of tablet 20:27: mouth 2 [place] [address] (two) Medical times Branch daily with meals. Venlafaxine 2019-0 Yes [id number] 75mg Take 1 [facility] 75 mg 3-07 tablet by ity of tablet 00:00: mouth [address] [place] [address] (two) Medical times Branch daily. Additional refills per psychiatry Venlafaxine 2019-0 Yes [id number] 75mg Take 1 [facility] 75 mg 3-07 tablet by ity of tablet 00:00: mouth [address] [place] [address] (two) Medical times Branch daily. Additional refills per psychiatry Venlafaxine 2019-0 Yes [id number] 75mg Take 1 [facility] 75 mg 3-07 tablet by ity of tablet 00:00: mouth 2 [place] (two) Medical times Branch daily. Additional refills per psychiatry Venlafaxine 2019-0 Yes [id number] 75mg Take 1 [facility] 75 mg 3-07 tablet by ity of tablet 00:00: mouth (two) Medical times Branch daily. Additional refills per psychiatry Venlafaxine 2019-0 Yes [id number] 75mg Take 1 [facility] 75 mg 3-07 tablet by ity of tablet 00:00: mouth 2 (two) Medical times Branch daily. Additional refills per psychiatry Venlafaxine 2019-0 Yes [id number] 75mg Take 1 [facility] 75 mg 3-07 tablet by ity of tablet 00:00: mouth (two) Medical times Branch daily. Additional refills per psychiatry Venlafaxine 2019-0 Yes [id number] 75mg Take 1 [facility] 75 mg 3-07 tablet by ity of tablet 00:00: mouth (two) Medical times Branch daily. Additional refills per psychiatry Venlafaxine 2018-0 Yes [id number] 75mg Take 1 [facility] 75 mg 3-07 tablet by it[facility] of tablet 00:00: mouth (two) Medical times Branch daily. Additional refills per psychiatry Venlafaxine 2018-0 Yes [id number] 75mg Take 1 [facility] 75 mg 3-07 tablet by ity of tablet 00:00: mouth (two) Medical times Branch daily. Additional refills per psychiatry Venlafaxine 2018-0 Yes [id number] 75mg Take 1 [facility] 75 mg 3-07 tablet by ity of tablet 00:00: mouth (two) Medical times Branch daily. Additional refills per psychiatry Venlafaxine 2018-0 Yes [id number] 75mg Take 1 [facility] 75 mg 3-07 tablet by ity of tablet 00:00: mouth (two) Medical times Branch daily. Additional refills per psychiatry Venlafaxine 2019-0 Yes [id number] 75mg Take 1 [facility] 75 mg 3-07 tablet by ity of tablet 00:00: mouth (two) Medical times Branch daily. Additional refills per psychiatry Venlafaxine 2019-0 Yes [id number] 75mg Take 1 [facility] 75 mg 3-07 tablet by ity of tablet 00:00: mouth 2 (two) Medical times Branch daily. Additional refills per psychiatry Venlafaxine 2019-0 Yes [id number] 75mg Take 1 [facility] 75 mg 3-07 tablet by ity of tablet 00:00: mouth 2 (two) Medical times Branch daily. Additional refills per psychiatry Venlafaxine 2019-0 Yes [id number] 75mg Take 1 [facility] 75 mg 3-07 tablet by ity of tablet 00:00: mouth (two) Medical times Branch daily. Additional refills per psychiatry Venlafaxine 2019-0 Yes [id number] 75mg Take 1 [facility] 75 mg 3-07 tablet by ity of tablet 00:00: mouth (two) Medical times Branch daily. Additional refills per psychiatry Venlafaxine 2018-0 Yes [id number] 75mg Take 1 [facility] 75 mg 3-07 tablet by ity of tablet 00:00: mouth (two) Medical times Branch daily. Additional refills per psychiatry Venlafaxine 2018-0 Yes [id number] 75mg Take 1 [facility] 75 mg 3-07 tablet by it[facility] of tablet 00:00: mouth (two) Medical times Branch daily. Additional refills per psychiatry Venlafaxine 2018-0 Yes [id number] 75mg Take 1 [facility] 75 mg 3-07 tablet by ity of tablet 00:00: mouth (two) Medical times Branch daily. Additional refills per psychiatry Venlafaxine 2018-0 Yes [id number] 75mg Take 1 [facility] 75 mg 3-07 tablet by ity of tablet 00:00: mouth (two) Medical times Branch daily. Additional refills per psychiatry Venlafaxine 2018-0 Yes [id number] 75mg Take 1 [facility] 75 mg 3-07 tablet by ity of tablet 00:00: mouth (two) Medical times Branch daily. Additional refills per psychiatry Venlafaxine 2018-0 Yes [id number] 75mg Take 1 [facility] 75 mg 3-07 tablet by ity of tablet 00:00: mouth (two) Medical times Branch daily. Additional refills per psychiatry Venlafaxine 2019-0 Yes [id number] 75mg Take 1 [facility] 75 mg 3-07 tablet by ity of tablet 00:00: mouth 2 (two) Medical times Branch daily. Additional refills per psychiatry Venlafaxine 2018-0 Yes [id number] 75mg Take 1 [facility] 75 mg 3-07 tablet by it[facility] of tablet 00:00: mouth (two) Medical times Branch daily. Additional refills per psychiatry Venlafaxine 2019-0 Yes [id number] 75mg Take 1 [facility] 75 mg 3-07 tablet by ity of tablet 00:00: mouth (two) Medical times Branch daily. Additional refills per psychiatry Venlafaxine 2019-0 Yes [id number] 75mg Take 1 [facility] 75 mg 3-07 tablet by ity of tablet 00:00: mouth (two) Medical times Branch daily. Additional refills per psychiatry Venlafaxine 2019-0 Yes [id number] 75mg Take 1 [facility] 75 mg 3-07 tablet by ity of tablet 00:00: mouth (two) Medical times Branch daily. Additional refills per psychiatry Venlafaxine 2019-0 Yes [id number] 75mg Take 1 [facility] 75 mg 3-07 tablet by ity of tablet 00:00: mouth (two) Medical times Branch daily. Additional refills per psychiatry Venlafaxine 2019-0 Yes [id number] 75mg Take 1 [facility] 75 mg 3-07 tablet by ity of tablet 00:00: mouth (two) Medical times Branch daily. Additional refills per psychiatry Venlafaxine 2019-0 Yes [id number] 75mg Take 1 [facility] 75 mg 3-07 tablet by it[facility] of tablet 00:00: mouth (two) Medical times Branch daily. Additional refills per psychiatry Venlafaxine 2019-0 Yes [id number] 75mg Take 1 [facility] 75 mg 3-07 tablet by it[facility] of tablet 00:00: mouth (two) Medical times Branch daily. Additional refills per psychiatry Venlafaxine 2019-0 Yes [id number] 75mg Take 1 [facility] 75 mg 3-07 tablet by [facility] of tablet 00:00: mouth (two) Medical times Branch daily. Additional refills per psychiatry Venlafaxine 2019-0 Yes [id number] 75mg Take 1 [facility] 75 mg 3-07 tablet by [facility] of tablet 00:00: mouth (two) Medical times Branch daily. Additional refills per psychiatry Venlafaxine 2019-0 Yes [id number] 75mg Take 1 [facility] 75 mg 3-07 tablet by it[facility] of tablet 00:00: mouth (two) Medical times Branch daily. Additional refills per psychiatry Venlafaxine 2019-0 Yes [id number] 75mg Take 1 [facility] 75 mg 3-07 tablet by ity of tablet 00:00: mouth 2 (two) Medical times Branch daily. Additional refills per psychiatry Venlafaxine 2018-0 Yes [id number] 75mg Take 1 [facility] 75 mg 3-07 tablet by ity of tablet 00:00: mouth 2 (two) Medical times Branch daily. Additional refills per psychiatry Venlafaxine 2018-0 Yes [id number] 75mg Take 1 [facility] 75 mg 3-07 tablet by ity of tablet 00:00: mouth 2 (two) Medical times Branch daily. Additional refills per psychiatry Venlafaxine 2018-0 Yes [id number] 75mg Take 1 [facility] 75 mg 3-07 tablet by ity of tablet 00:00: mouth (two) Medical times Branch daily. Additional refills per psychiatry Venlafaxine 2018-0 Yes [id number] 75mg Take 1 [facility] 75 mg 3-07 tablet by ity of tablet 00:00: mouth (two) Medical times Branch daily. Additional refills per psychiatry Venlafaxine 2018-0 Yes [id number] 75mg Take 1 [facility] 75 mg 3-07 tablet by ity of tablet 00:00: mouth (two) Medical times Branch daily. Additional refills per psychiatry Venlafaxine 2018-0 Yes [id number] 75mg Take 1 [facility] 75 mg 3-07 tablet by ity of tablet 00:00: mouth (two) Medical times Branch daily. Additional refills per psychiatry Venlafaxine 2018-0 Yes [id number] 75mg Take 1 [facility] 75 mg 3-07 tablet by it[facility] of tablet 00:00: mouth (two) Medical times Branch daily. Additional refills per psychiatry Venlafaxine 2018-0 Yes [id number] 75mg Take 1 [facility] 75 mg 3-07 tablet by ity of tablet 00:00: mouth 2 (two) Medical times Branch daily. Additional refills per psychiatry Venlafaxine 2019-0 Yes [id number] 75mg Take 1 [facility] 75 mg 3-07 tablet by ity of tablet 00:00: mouth 2 (two) Medical times Branch daily. Additional refills per psychiatry Venlafaxine 2018-0 Yes [id number] 75mg Take 1 [facility] 75 mg 3-07 tablet by ity of tablet 00:00: mouth 2 [place] 00 (two) Medical times Branch daily. Additional refills per psychiatry Venlafaxine 2019-0 Yes [id number] 75mg Take 1 [facility] 75 mg 3-07 tablet by ity of tablet 00:00: mouth (two) Medical times Branch daily. Additional refills per psychiatry Venlafaxine 2019-0 Yes [id number] 75mg Take 1 [facility] 75 mg 3-07 tablet by ity of tablet 00:00: mouth (two) Medical times Branch daily. Additional refills per psychiatry Venlafaxine 2019-0 Yes [id number] 75mg Take 1 [facility] 75 mg 3-07 tablet by ity of tablet 00:00: mouth (two) Medical times Branch daily. Additional refills per psychiatry Venlafaxine 2019-0 Yes [id number] 75mg Take 1 [facility] 75 mg 3-07 tablet by ity of tablet 00:00: mouth (two) Medical times Branch daily. Additional refills per psychiatry Venlafaxine 2018-0 Yes [id number] 75mg Take 1 [facility] 75 mg 3-07 tablet by ity of tablet 00:00: mouth (two) Medical times Branch daily. Additional refills per psychiatry Venlafaxine 2018-0 Yes [id number] 75mg Take 1 [facility] 75 mg 3-07 tablet by ity of tablet 00:00: mouth () Medical times Branch daily. Additional refills per psychiatry Venlafaxine 2018-0 Yes [id number] 75mg Take 1 [facility] 75 mg 3-07 tablet by ity of tablet 00:00: mouth (two) Medical times Branch daily. Additional refills per psychiatry Venlafaxine 2019-0 Yes [id number] 75mg Take 1 [facility] 75 mg 3-07 tablet by ity of tablet 00:00: mouth (two) Medical times Branch daily. Additional refills per psychiatry Venlafaxine 2019-0 Yes [id number] 75mg Take 1 [facility] 75 mg 3-07 tablet by ity of tablet 00:00: mouth (two) Medical times Branch daily. Additional refills per psychiatry Venlafaxine 2019-0 Yes [id number] 75mg Take 1 [facility] 75 mg 3-07 tablet by ity of tablet 00:00: mouth (two) Medical times Branch daily. Additional refills per psychiatry Venlafaxine 2019- Yes [id number] 75mg Take 1 [facility] 75 mg 3-07 tablet by ity of tablet 00:00: mouth 2 [place] 00 (two) Medical times Branch daily. Additional refills per psychiatry Venlafaxine Yes [id number] 75mg Take 1 [facility] 75 mg 3-07 tablet by ity of tablet 00:00: mouth 2 [place] 00 (two) Medical times Branch daily. Additional refills per psychiatry Venlafaxine Yes [id number] 75mg Take 1 [facility] 75 mg 3-07 tablet by ity of tablet 00:00: mouth 2 [place] 00 (two) Medical times Branch daily. Additional refills per psychiatry Venlafaxine Yes [id number] 75mg Take 1 [facility] 75 mg 3-07 tablet by ity of tablet 00:00: mouth 2 [place] 00 (two) Medical times Branch daily. Additional refills per psychiatry Venlafaxine Yes [id number] 75mg Take 1 [facility] 75 mg 3-07 tablet by ity of tablet 00:00: mouth 2 [place] 00 (two) Medical times Branch daily. Additional refills per psychiatry albuterol Yes 2{puff} Inhale 2 [facility] (VENTOLIN) 7-20 Puffs ity of 90 19:40: every 6 [place] mcg/actuati 58 (six) Medical on inhaler hours as Branc h needed for Wheezing or Shortness of Breath. albuterol Yes 2{puff} Inhale 2 [facility] (VENTOLIN) 7-20 Puffs ity of 90 19:40: every 6 [place] mcg/actuati 58 (six) Medical on inhaler hours as Branc h needed for Wheezing or Shortness of Breath. albuterol Yes 2{puff} Inhale 2 [facility] (VENTOLIN) 7-20 Puffs ity of 90 19:40: every 6 [place] mcg/actuati 58 (six) Medical on inhaler hours as Branc h needed for Wheezing or Shortness of Breath. albuterol Yes 2{puff} Inhale 2 [facility] (VENTOLIN) 7-20 Puffs ity of 90 19:40: every 6 [place] mcg/actuati 58 (six) Medical on inhaler hours as Branc h needed for Wheezing or Shortness of Breath. albuterol 2018-0 Yes 2{puff} Inhale 2 [facility] (VENTOLIN) 7-20 Puffs ity of 90 19:40: every 6 [place] mcg/actuati 58 (six) Medical on inhaler hours as Branc h needed for Wheezing or Shortness of Breath. albuterol 2018-0 Yes 2{puff} Inhale 2 [facility] (VENTOLIN) 7-20 Puffs ity of 90 19:40: every 6 [place] mcg/actuati 58 (six) Medical on inhaler hours as Branc h needed for Wheezing or Shortness of Breath. albuterol 2018-0 Yes 2{puff} Inhale 2 [facility] (VENTOLIN) 7-20 Puffs ity of 90 19:40: every 6 [place] mcg/actuati 58 (six) Medical on inhaler hours as Branc h needed for Wheezing or Shortness of Breath. albuterol 2018-0 Yes 2{puff} Inhale 2 [facility] (VENTOLIN) 7-20 Puffs ity of 90 19:40: every 6 [place] mcg/actuati 58 (six) Medical on inhaler hours as Branc h needed for Wheezing or Shortness of Breath. albuterol 2018-0 Yes 2{puff} Inhale 2 [facility] (VENTOLIN) 7-20 Puffs ity of 90 19:40: every 6 [place] mcg/actuati 58 (six) Medical on inhaler hours as Branc h needed for Wheezing or Shortness of Breath. albuterol 2018-0 Yes 2{puff} Inhale 2 [facility] (VENTOLIN) 7-20 Puffs ity of 90 19:40: every 6 [place] mcg/actuati 58 (six) Medical on inhaler hours as Branc h needed for Wheezing or Shortness of Breath. albuterol 2018-0 Yes 2{puff} Inhale 2 [facility] (VENTOLIN) 7-20 Puffs ity of 90 19:40: every 6 [place] mcg/actuati 58 (six) Medical on inhaler hours as Branc h needed for Wheezing or Shortness of Breath. albuterol 2018-0 Yes 2{puff} Inhale 2 [facility] (VENTOLIN) 7-20 Puffs ity of 90 19:40: every 6 [place] mcg/actuati 58 (six) Medical on inhaler hours as Branc h needed for Wheezing or Shortness of Breath. albuterol 2018-0 Yes 2{puff} Inhale 2 [facility] (VENTOLIN) 7-20 Puffs ity of 90 19:40: every 6 [place] mcg/actuati 58 (six) Medical on inhaler hours as Branc h needed for Wheezing or Shortness of Breath. albuterol 2018-0 Yes 2{puff} Inhale 2 [facility] (VENTOLIN) 7-20 Puffs ity of 90 19:40: every 6 [place] mcg/actuati 58 (six) Medical on inhaler hours as Branc h needed for Wheezing or Shortness of Breath. albuterol 2018-0 Yes 2{puff} Inhale 2 [facility] (VENTOLIN) 7-20 Puffs ity of 90 19:40: every 6 [place] mcg/actuati 58 (six) Medical on inhaler hours as Branc h needed for Wheezing or Shortness of Breath. albuterol 2018-0 Yes 2{puff} Inhale 2 [facility] (VENTOLIN) 7-20 Puffs ity of 90 19:40: every 6 [place] mcg/actuati 58 (six) Medical on inhaler hours as Branc h needed for Wheezing or Shortness of Breath. albuterol 2018-0 Yes 2{puff} Inhale 2 [facility] (VENTOLIN) 7-20 Puffs ity of 90 19:40: every 6 [place] mcg/actuati 58 (six) Medical on inhaler hours as Branc h needed for Wheezing or Shortness of Breath. albuterol 2018-0 Yes 2{puff} Inhale 2 [facility] (VENTOLIN) 7-20 Puffs ity of 90 19:40: every 6 [place] mcg/actuati 58 (six) Medical on inhaler hours as Branc h needed for Wheezing or Shortness of Breath. albuterol 2018-0 Yes 2{puff} Inhale 2 [facility] (VENTOLIN) 7-20 Puffs ity of 90 19:40: every 6 [place] mcg/actuati 58 (six) Medical on inhaler hours as Branc h needed for Wheezing or Shortness of Breath. albuterol 2018-0 Yes 2{puff} Inhale 2 [facility] (VENTOLIN) 7-20 Puffs ity of 90 19:40: every 6 [place] mcg/actuati 58 (six) Medical on inhaler hours as Branc h needed for Wheezing or Shortness of Breath. albuterol 2017-0 Yes 2{puff} Inhale 2 [facility] (VENTOLIN) 7-20 Puffs ity of 90 19:40: every 6 [place] mcg/actuati 58 (six) Medical on inhaler hours as Branc h needed for Wheezing or Shortness of Breath. albuterol 2017-0 Yes 2{puff} Inhale 2 [facility] (VENTOLIN) 7-20 Puffs ity of 90 19:40: every 6 [place] mcg/actuati 58 (six) Medical on inhaler hours as Branc h needed for Wheezing or Shortness of Breath. albuterol 2017-0 Yes 2{puff} Inhale 2 [facility] (VENTOLIN) 7-20 Puffs ity of 90 19:40: every 6 [place] mcg/actuati 58 (six) Medical on inhaler hours as Branc h needed for Wheezing or Shortness of Breath. ALPRAZolam 2016-0 Yes 1mg Take 1 mg [facility] (XANAX) 1 4-05 by mouth 3 ity of mg tablet 00:00: (three) [place] 00 times Medical daily. Branch ALPRAZolam 2015-0 Yes 1mg Take 1 mg [facility] (XANAX) 1 4-05 by mouth 4 ity of mg tablet 00:00: (four) [place] 00 times Medical daily. Branch ALPRAZolam 2015-0 Yes 1mg Take 1 mg [facility] (XANAX) 1 4-05 by mouth 4 ity of mg tablet 00:00: (four) [place] 00 times Medical daily. Branch ALPRAZolam 2016-0 Yes 1mg Take 1 mg [facility] (XANAX) 1 4-05 by mouth 4 ity of mg tablet 00:00: (four) [place] 00 times Medical daily. Branch ALPRAZolam 2016-0 Yes 1mg Take 1 mg [facility] (XANAX) 1 4-05 by mouth 4 ity of mg tablet 00:00: (four) [place] 00 times Medical daily. Branch ALPRAZolam 2016-0 Yes 1mg Take 1 mg [facility] (XANAX) 1 4-05 by mouth 4 ity of mg tablet 00:00: (four) [place] 00 times Medical daily. Branch ALPRAZolam 2016-0 Yes 1mg Take 1 mg [facility] (XANAX) 1 4-05 by mouth 4 ity of mg tablet 00:00: (four) [place] 00 times Medical daily. Branch ALPRAZolam 2016-0 Yes 1mg Take 1 mg [facility] (XANAX) 1 4-05 by mouth 4 ity of mg tablet 00:00: (four) [place] 00 times Medical daily. Branch ALPRAZolam 2016-0 Yes 1mg Take 1 mg [facility] (XANAX) 1 4-05 by mouth 4 ity of mg tablet 00:00: (four) [place] 00 times Medical daily. Branch ALPRAZolam 2016-0 Yes 1mg Take 1 mg [facility] (XANAX) 1 4-05 by mouth 4 ity of mg tablet 00:00: (four) [place] 00 times Medical daily. Branch ALPRAZolam 2016-0 Yes 1mg Take 1 mg [facility] (XANAX) 1 4-05 by mouth 4 ity of mg tablet 00:00: (four) [place] 00 times Medical daily. Branch ALPRAZolam 2016-0 Yes 1mg Take 1 mg [facility] (XANAX) 1 4-05 by mouth 4 ity of mg tablet 00:00: (four) [place] 00 times Medical daily. Branch ALPRAZolam 2016-0 Yes 1mg Take 1 mg [facility] (XANAX) 1 4-05 by mouth 4 ity of mg tablet 00:00: (four) [place] 00 times Medical daily. Branch ALPRAZolam 2016-0 Yes 1mg Take 1 mg [facility] (XANAX) 1 4-05 by mouth 4 ity of mg tablet 00:00: (four) [place] 00 times Medical daily. Branch ALPRAZolam 2016-0 Yes 1mg Take 1 mg [facility] (XANAX) 1 4-05 by mouth 4 ity of mg tablet 00:00: (four) [place] 00 times Medical daily. Branch ALPRAZolam 2016-0 Yes 1mg Take 1 mg [facility] (XANAX) 1 4-05 by mouth 4 ity of mg tablet 00:00: (four) [place] 00 times Medical daily. Branch ALPRAZolam 2016-0 Yes 1mg Take 1 mg [facility] (XANAX) 1 4-05 by mouth 4 ity of mg tablet 00:00: (four) [place] 00 times Medical daily. Branch ALPRAZolam 2016-0 Yes 1mg Take 1 mg [facility] (XANAX) 1 4-05 by mouth 4 ity of mg tablet 00:00: (four) [place] 00 times Medical daily. Branch ALPRAZolam 2016-0 Yes 1mg Take 1 mg [facility] (XANAX) 1 4-05 by mouth 4 ity of mg tablet 00:00: (four) [place] 00 times Medical daily. Branch ALPRAZolam 2016-0 Yes 1mg Take 1 mg [facility] (XANAX) 1 4-05 by mouth 4 ity of mg tablet 00:00: (four) [place] 00 times Medical daily. Branch ALPRAZolam 2016-0 Yes 1mg Take 1 mg [facility] (XANAX) 1 4-05 by mouth 4 ity of mg tablet 00:00: (four) [place] 00 times Medical daily. Branch ALPRAZolam 2016-0 Yes 1mg Take 1 mg [facility] (XANAX) 1 4-05 by mouth 4 ity of mg tablet 00:00: (four) [place] 00 times Medical daily. Branch ALPRAZolam 2016-0 Yes 1mg Take 1 mg [facility] (XANAX) 1 4-05 by mouth 4 ity of mg tablet 00:00: (four) [place] 00 times Medical daily. Branch ALPRAZolam 2016-0 Yes 1mg Take 1 mg [facility] (XANAX) 1 4-05 by mouth 4 ity of mg tablet 00:00: (four) [place] 00 times Medical daily. Branch ALPRAZolam 2016-0 Yes 1mg Take 1 mg [facility] (XANAX) 1 4-05 by mouth 3 ity of mg tablet 00:00: (three) [place] 00 times Medical daily. Branch ALPRAZolam 2016-0 Yes 1mg Take 1 mg [facility] (XANAX) 1 4-05 by mouth 3 ity of mg tablet 00:00: (three) [place] 00 times Medical daily. Branch ALPRAZolam 2016-0 Yes 1mg Take 1 mg [facility] (XANAX) 1 4-05 by mouth 3 ity of mg tablet 00:00: (three) [place] 00 times Medical daily. Branch ALPRAZolam 2016-0 Yes 1mg Take 1 mg [facility] (XANAX) 1 4-05 by mouth 3 ity of mg tablet 00:00: (three) [place] 00 times Medical daily. Branch ALPRAZolam 2016-0 Yes 1mg Take 1 mg [facility] (XANAX) 1 4-05 by mouth 4 ity of mg tablet 00:00: (four) [place] 00 times Medical daily. Branch ALPRAZolam 2016-0 Yes 1mg Take 1 mg [facility] (XANAX) 1 4-05 by mouth 3 ity of mg tablet 00:00: (three) [place] 00 times Medical daily. Branch ALPRAZolam 2016-0 Yes 1mg Take 1 mg [facility] (XANAX) 1 4-05 by mouth 3 ity of mg tablet 00:00: (three) [place] 00 times Medical daily. Branch ALPRAZolam 2016-0 Yes 1mg Take 1 mg [facility] (XANAX) 1 4-05 by mouth 3 ity of mg tablet 00:00: (three) [place] 00 times Medical daily. Branch ALPRAZolam 2016-0 Yes 1mg Take 1 mg [facility] (XANAX) 1 4-05 by mouth 3 ity of mg tablet 00:00: (three) [place] 00 times Medical daily. Branch ALPRAZolam 2016-0 Yes 1mg Take 1 mg [facility] (XANAX) 1 4-05 by mouth 3 ity of mg tablet 00:00: (three) [place] 00 times Medical daily. Branch ALPRAZolam 2016-0 Yes 1mg Take 1 mg [facility] (XANAX) 1 4-05 by mouth 3 ity of mg tablet 00:00: (three) [place] 00 times Medical daily. Branch ALPRAZolam 2016-0 Yes 1mg Take 1 mg [facility] (XANAX) 1 4-05 by mouth 3 ity of mg tablet 00:00: (three) [place] 00 times Medical daily. Branch ALPRAZolam 2016-0 Yes 1mg Take 1 mg [facility] (XANAX) 1 4-05 by mouth 3 ity of mg tablet 00:00: (three) [place] 00 times Medical daily. Branch ALPRAZolam 2016-0 Yes 1mg Take 1 mg [facility] (XANAX) 1 4-05 by mouth 3 ity of mg tablet 00:00: (three) [place] 00 times Medical daily. Branch ALPRAZolam 2016-0 Yes 1mg Take 1 mg [facility] (XANAX) 1 4-05 by mouth 3 ity of mg tablet 00:00: (three) [place] 00 times Medical daily. Branch ALPRAZolam 2016-0 Yes 1mg Take 1 mg [facility] (XANAX) 1 4-05 by mouth 4 ity of mg tablet 00:00: (four) [place] 00 times Medical daily. Branch ALPRAZolam 2016-0 Yes 1mg Take 1 mg [facility] (XANAX) 1 4-05 by mouth 3 ity of mg tablet 00:00: (three) [place] 00 times Medical daily. Branch ALPRAZolam 2016-0 Yes 1mg Take 1 mg [facility] (XANAX) 1 4-05 by mouth 3 ity of mg tablet 00:00: (three) [place] 00 times Medical daily. Branch ALPRAZolam 2016-0 Yes 1mg Take 1 mg [facility] (XANAX) 1 4-05 by mouth 3 ity of mg tablet 00:00: (three) [place] 00 times Medical daily. Branch ALPRAZolam 2016-0 Yes 1mg Take 1 mg [facility] (XANAX) 1 4-05 by mouth 3 ity of mg tablet 00:00: (three) [place] 00 times Medical daily. Branch ALPRAZolam 2016-0 Yes 1mg Take 1 mg [facility] (XANAX) 1 4-05 by mouth 4 ity of mg tablet 00:00: (four) [place] 00 times Medical daily. Branch ALPRAZolam 2016-0 Yes 1mg Take 1 mg [facility] (XANAX) 1 4-05 by mouth 3 ity of mg tablet 00:00: (three) [place] 00 times Medical daily. Branch ALPRAZolam 2016-0 Yes 1mg Take 1 mg [facility] (XANAX) 1 4-05 by mouth 3 ity of mg tablet 00:00: (three) [place] 00 times Medical daily. Branch ALPRAZolam 2016-0 Yes 1mg Take 1 mg [facility] (XANAX) 1 4-05 by mouth 3 ity of mg tablet 00:00: (three) [place] 00 times Medical daily. Branch ALPRAZolam 2016-0 Yes 1mg Take 1 mg [facility] (XANAX) 1 4-05 by mouth 4 ity of mg tablet 00:00: (four) [place] 00 times Medical daily. Branch ALPRAZolam 2016-0 Yes 1mg Take 1 mg [facility] (XANAX) 1 4-05 by mouth 3 ity of mg tablet 00:00: (three) [place] 00 times Medical daily. Branch ALPRAZolam 2016-0 Yes 1mg Take 1 mg [facility] (XANAX) 1 4-05 by mouth 3 ity of mg tablet 00:00: (three) [place] 00 times Medical daily. Branch ALPRAZolam 2016-0 Yes 1mg Take 1 mg [facility] (XANAX) 1 4-05 by mouth 3 ity of mg tablet 00:00: (three) [place] 00 times Medical daily. Branch ALPRAZolam 2016-0 2020- No 1mg Take 1 mg [facility] (XANAX) 1 4-05 07-30 by mouth 3 ity [facility] mg tablet 00:00: [place]three[place] daily. [place] predniSONE 2016-0 Yes 10mg Take 10 mg [facility] (DELTASONE) 3-22 by mouth ity of 10 mg 00:00: daily. [place] tablet 00 [facility] predniSONE 2016-0 Yes 10mg Take 10 mg [facility] (DELTASONE) 3-22 by mouth ity of 10 mg 00:00: daily. [place] tablet 00 [facility] predniSONE 2016-0 Yes 10mg Take 10 mg [facility] (DELTASONE) 3-22 by mouth ity of 10 mg 00:00: daily. [place] tablet 00 [facility] predniSONE 2016-0 Yes 10mg Take 10 mg [facility] (DELTASONE) 3-22 by mouth ity of 10 mg 00:00: daily. [place] tablet 00 [facility] predniSONE 2016-0 Yes 10mg Take 10 mg [facility] (DELTASONE) 3-22 by mouth ity of 10 mg 00:00: daily. [place] tablet 00 [facility] predniSONE 2016-0 Yes 10mg Take 10 mg [facility] (DELTASONE) 3-22 by mouth ity of 10 mg 00:00: daily. [place] tablet 00 [facility] predniSONE 2016-0 Yes 10mg Take 10 mg [facility] (DELTASONE) 3-22 by mouth ity of 10 mg 00:00: daily. [place] tablet 00 [facility] predniSONE 2016-0 Yes 10mg Take 10 mg [facility] (DELTASONE) 3-22 by mouth ity of 10 mg 00:00: daily. [place] tablet 00 [facility] predniSONE 2016-0 Yes 10mg Take 10 mg [facility] (DELTASONE) 3-22 by mouth ity of 10 mg 00:00: daily. [place] tablet 00 [facility] predniSONE 2016-0 Yes 10mg Take 10 mg [facility] (DELTASONE) 3-22 by mouth ity of 10 mg 00:00: daily. [place] tablet 00 [facility] predniSONE 2016-0 Yes 10mg Take 10 mg [facility] (DELTASONE) 3-22 by mouth ity of 10 mg 00:00: daily. [place] tablet 00 [facility] predniSONE 0 Yes 10mg Take 10 mg [facility] (DELTASONE) 3-22 by mouth ity of 10 mg 00:00: daily. [place] tablet 00 [facility] predniSONE Yes 10mg Take 10 mg [facility] (DELTASONE) 3-22 by mouth ity of 10 mg 00:00: daily. [place] tablet 00 [facility] predniSONE 2016-0 Yes 10mg Take 10 mg [facility] (DELTASONE) 3-22 by mouth ity of 10 mg 00:00: daily. [place] tablet 00 [facility] predniSONE 2015-0 Yes 10mg Take 10 mg [facility] (DELTASONE) 3-22 by mouth ity of 10 mg 00:00: daily. [place] tablet 00 [facility] omeprazole Yes 40mg Take 40 mg U nivers (PRILOSEC) 3-08 by mouth ity o f 40 mg 00:00: daily. [place] capsule 00 [facility] omeprazole 2019- No 40mg Take 40 mg Univers (PRILOSEC) 3-08 08-22 by mouth ity of 40 mg 00:00: 00:00 daily. [place] capsule 00 :00 [facility] omeprazole 2019- No 40mg Take 40 mg [facility] (PRILOSEC) 3-08 08-22 by mouth ity of 40 mg 00:00: 00:00 daily. [place] capsule 00 :00 [facility] DALIRESP Yes 250ug Take 250 Univ ers 500 mcg 3-07 mcg by ity of tablet 00:00: mouth [place] 00 daily. Medical [place] DALIRESP Yes 250ug Take 250 Univ ers 500 mcg 3-07 mcg by ity of tablet 00:00: mouth [place] 00 daily. [facility] 2015-0 Yes 1{tbl} Take 1 Unive rs 500 mcg 3-07 tablet by ity of tablet 00:00: mouth [place] 00 daily. [facility] 2016-0 Yes 250ug Take 250 Univ ers 500 mcg 3-07 mcg by ity of tablet 00:00: mouth [place] 00 daily. [facility] 2015-0 Yes 250ug Take 250 Univ ers 500 mcg 3-07 mcg by ity of tablet 00:00: mouth [place] 00 daily. [facility] 2015-0 Yes 250ug Take 250 Univ ers 500 mcg 3-07 mcg by ity of tablet 00:00: mouth [place] 00 daily. [facility] 0 Yes 1{tbl} Take 1 Unive rs 500 mcg 3-07 tablet by ity of tablet 00:00: mouth [place] 00 daily. [facility] 0 Yes 250ug Take 250 Univ ers 500 mcg 3-07 mcg by ity of tablet 00:00: mouth [place] 00 daily. [facility] 0 Yes 250ug Take 250 Univ ers 500 mcg 3-07 mcg by ity of tablet 00:00: mouth [place] 00 daily. [facility] 0 Yes 250ug Take 250 Univ ers 500 mcg 3-07 mcg by ity of tablet 00:00: mouth [place] 00 daily. [facility] 0 Yes 250ug Take 250 Univ ers 500 mcg 3-07 mcg by ity of tablet 00:00: mouth [place] 00 daily. [facility] 2015-0 Yes 1{tbl} Take 1 Unive rs 500 mcg 3-07 tablet by ity of tablet 00:00: mouth [place] 00 daily. [facility] 0 Yes 1{tbl} Take 1 Unive rs 500 mcg 3-07 tablet by ity of tablet 00:00: mouth [place] 00 daily. [facility] 2015-0 Yes 1{tbl} Take 1 Unive rs 500 mcg 3-07 tablet by ity of tablet 00:00: mouth [place] 00 daily. [facility] 2015-0 Yes 1{tbl} Take 1 Unive rs 500 mcg 3-07 tablet by ity of tablet 00:00: mouth [place] 00 daily. [facility] 2016-0 Yes 1{tbl} Take 1 Unive rs 500 mcg 3-07 tablet by ity of tablet 00:00: mouth [place] 00 daily. [facility] Yes 1{tbl} Take 1 Unive rs 500 mcg 3-07 tablet by ity of tablet 00:00: mouth [place] 00 daily. [facility] Yes 1{tbl} Take 1 Unive rs 500 mcg 3-07 tablet by ity of tablet 00:00: mouth [place] 00 daily. [facility] Yes 1{tbl} Take 1 Unive rs 500 mcg 3-07 tablet by ity of tablet 00:00: mouth [place] 00 daily. [facility] Yes 1{tbl} Take 1 Unive rs 500 mcg 3-07 tablet by ity of tablet 00:00: mouth [place] 00 daily. [facility] Yes 1{tbl} Take 1 Unive rs 500 mcg 3-07 tablet by ity of tablet 00:00: mouth [place] 00 daily. [facility] Yes 1{tbl} Take 1 Unive rs 500 mcg 3-07 tablet by ity of tablet 00:00: mouth [place] 00 daily. [facility] Yes 1{tbl} Take 1 Un[facility] rs 500 mcg 3-07 tablet by ity of tablet 00:00: mouth [place] 00 daily. [facility] 0 Yes 1{tbl} Take 1 Unive rs 500 mcg 3-07 tablet by ity of tablet 00:00: mouth [place] 00 daily. [facility] Yes 1{tbl} Take 1 Unive rs 500 mcg 3-07 tablet by ity of tablet 00:00: mouth [place] 00 daily. [facility] Yes 1{tbl} Take 1 Unive rs 500 mcg 3-07 tablet by ity of tablet 00:00: mouth [place] 00 daily. [facility] 0 Yes 1{tbl} Take 1 Unive rs 500 mcg 3-07 tablet by ity of tablet 00:00: mouth [place] 00 daily. [facility] Yes 1{tbl} Take 1 Unive rs 500 mcg 3-07 tablet by ity of tablet 00:00: mouth [place] 00 daily. [facility] 2016-0 Yes 1{tbl} Take 1 Unive rs 500 mcg 3-07 tablet by ity of tablet 00:00: mouth [place] 00 daily. [facility] 2015-0 Yes 1{tbl} Take 1 Un[facility] rs 500 mcg 3-07 tablet by ity of tablet 00:00: mouth [place] 00 daily. [facility] 2015-0 Yes 1{tbl} Take 1 Unive rs 500 mcg 3-07 tablet by ity of tablet 00:00: mouth [place] 00 daily. [facility] 2015-0 Yes 1{tbl} Take 1 Un[facility] rs 500 mcg 3-07 tablet by ity of tablet 00:00: mouth [place] 00 daily. [facility] 2015-0 Yes 250ug Take 250 Univ ers 500 mcg 3-07 mcg by ity of tablet 00:00: mouth [place] 00 daily. [facility] 0 Yes 250ug Take 250 Univ ers 500 mcg 3-07 mcg by ity of tablet 00:00: mouth [place] 00 daily. [facility] 0 Yes 250ug Take 250 Univ ers 500 mcg 3-07 mcg by ity of tablet 00:00: mouth [place] 00 daily. [facility] 0 Yes 250ug Take 250 Univ ers 500 mcg 3-07 mcg by ity of tablet 00:00: mouth [place] 00 daily. [facility] 0 Yes 250ug Take 250 Univ ers 500 mcg 3-07 mcg by ity of tablet 00:00: mouth [place] 00 daily. [facility] 2015-0 Yes 250ug Take 250 Univ ers 500 mcg 3-07 mcg by ity of tablet 00:00: mouth [place] 00 daily. [facility] 2015-0 Yes 1{tbl} Take 1 Unive rs 500 mcg 3-07 tablet by ity of tablet 00:00: mouth [place] 00 daily. [facility] 2015-0 Yes 250ug Take 250 Univ ers 500 mcg 3-07 mcg by ity of tablet 00:00: mouth [place] 00 daily. [facility] 2015-0 Yes 250ug Take 250 Univ ers 500 mcg 3-07 mcg by ity of tablet 00:00: mouth [place] 00 daily. [facility] 2015-0 Yes 250ug Take 250 Univ ers 500 mcg 3-07 mcg by ity of tablet 00:00: mouth [place] 00 daily. [facility] 2016-0 Yes 250ug Take 250 Univ ers 500 mcg 3-07 mcg by ity of tablet 00:00: mouth [place] 00 daily. [facility] 2016-0 Yes 250ug Take 250 Univ ers 500 mcg 3-07 mcg by ity of tablet 00:00: mouth [place] 00 daily. [facility] 2015-0 Yes 250ug Take 250 Univ ers 500 mcg 3-07 mcg by ity of tablet 00:00: mouth [place] 00 daily. [facility] 2015-0 Yes 250ug Take 250 Univ ers 500 mcg 3-07 mcg by ity of tablet 00:00: mouth [place] 00 daily. [facility] 2015-0 Yes 250ug Take 250 Univ ers 500 mcg 3-07 mcg by ity of tablet 00:00: mouth [place] 00 daily. [facility] 2015-0 Yes 250ug Take 250 Univ ers 500 mcg 3-07 mcg by ity of tablet 00:00: mouth [place] 00 daily. [facility] 2015-0 Yes 1{tbl} Take 1 Unive rs 500 mcg 3-07 tablet by ity of tablet 00:00: mouth [place] 00 daily. [facility] 2015-0 Yes 250ug Take 250 Univ ers 500 mcg 3-07 mcg by ity of tablet 00:00: mouth [place] 00 daily. [facility] 2015-0 Yes 250ug Take 250 Univ ers 500 mcg 3-07 mcg by ity of tablet 00:00: mouth [place] 00 daily. [facility] 2015-0 Yes 250ug Take 250 Univ ers 500 mcg 3-07 mcg by ity of tablet 00:00: mouth [place] 00 daily. [facility] 2015-0 Yes 250ug Take 250 Univ ers 500 mcg 3-07 mcg by ity of tablet 00:00: mouth [place] 00 daily. [facility] 2016-0 Yes 1{tbl} Take 1 Unive rs 500 mcg 3-07 tablet by ity of tablet 00:00: mouth [place] 00 daily. [facility] 2015-0 Yes 250ug Take 250 Univ ers 500 mcg 3-07 mcg by ity of tablet 00:00: mouth [place] 00 daily. [facility] 2015-0 Yes 250ug Take 250 Univ ers 500 mcg 3-07 mcg by ity of tablet 00:00: mouth [place] 00 daily. [facility] Yes 250ug Take 250 Univ ers 500 mcg 3-07 mcg by ity of tablet 00:00: mouth [place] 00 daily. [facility] Yes 1{tbl} Take 1 Unive rs 500 mcg 3-07 tablet by ity of tablet 00:00: mouth [place] 00 daily. [facility] 2015-0 Yes 250ug Take 250 Univ ers 500 mcg 3-07 mcg by ity of tablet 00:00: mouth [place] 00 daily. [facility] Yes 250ug Take 250 Univ ers 500 mcg 3-07 mcg by ity of tablet 00:00: mouth [place] 00 daily. [facility] Yes 1{puff} Inhale 1 Univer s ELLIPTA 2-02 Puff ity of 100-25 00:00: daily. [place] mcg/dose 00 [facility] Yes 1{puff} Inhale 1 Univer s ELLIPTA 2-02 Puff ity of 100-25 00:00: daily. [place] mcg/dose 00 [facility] Yes 1{puff} Inhale 1 Univer s ELLIPTA 2-02 Puff ity of 100-25 00:00: daily. [place] mcg/dose 00 [facility] Yes 1{puff} Inhale 1 Univer s ELLIPTA 2-02 Puff ity of 100-25 00:00: daily. [place] mcg/dose 00 [facility] Yes 1{puff} Inhale 1 Univer s ELLIPTA 2-02 Puff ity of 100-25 00:00: daily. [place] mcg/dose 00 [facility] Yes 1{puff} Inhale 1 Univer s ELLIPTA 2-02 Puff ity of 100-25 00:00: daily. [place] mcg/dose 00 [facility] Yes 1{puff} Inhale 1 Univer s ELLIPTA 2-02 Puff ity of 100-25 00:00: daily. [place] mcg/dose 00 [facility] Yes 1{puff} Inhale 1 Univer s ELLIPTA 2-02 Puff ity of 100-25 00:00: daily. [place] mcg/dose 00 [facility] BREO Yes 1{puff} Inhale 1 Univer s ELLIPTA 2-02 Puff ity of 100-25 00:00: daily. [place] mcg/dose 00 [facility] DsD[facility] BREO Yes 1{puff} Inhale 1 Univer s ELLIPTA 2-02 Puff ity of 100-25 00:00: daily. [place] mcg/dose 00 [facility] BREO Yes 1{puff} Inhale 1 Univer s ELLIPTA 2-02 Puff ity of 100-25 00:00: daily. [place] mcg/dose 00 [facility] BREO Yes 1{puff} Inhale 1 Univer s ELLIPTA 2-02 Puff ity of 100-25 00:00: daily. [place] mcg/dose 00 [facility] BREO Yes 1{puff} Inhale 1 Univer s ELLIPTA 2-02 Puff ity of 100-25 00:00: daily. [place] mcg/dose 00 [facility] BREO Yes 1{puff} Inhale 1 Univer s ELLIPTA 2-02 Puff ity of 100-25 00:00: daily. [place] mcg/dose 00 [facility] BREO Yes 1{puff} Inhale 1 Univer s ELLIPTA 2-02 Puff ity of 100-25 00:00: daily. [place] mcg/dose 00 [facility] albuterol Yes [facility] (PROVENTIL) 2-01 ity of 2.5 mg /3 00:00: [place] mL (0.083 00 Medical %) Branch nebulizer solution albuterol Yes [facility] (PROVENTIL) 2-01 ity of 2.5 mg /3 00:00: [place] mL (0.083 00 Medical %) Branch nebulizer solution albuterol Yes [facility] (PROVENTIL) 2-01 ity of 2.5 mg /3 00:00: [place] mL (0.083 00 Medical %) Branch nebulizer solution albuterol Yes [facility] (PROVENTIL) 2-01 ity of 2.5 mg /3 00:00: [place] mL (0.083 00 Medical %) Branch nebulizer solution albuterol 2016-0 Yes [facility] (PROVENTIL) 2-01 ity of 2.5 mg /3 00:00: [place] mL (0.083 00 Medical %) Branch nebulizer solution albuterol 2015-0 Yes [facility] (PROVENTIL) 2-01 ity of 2.5 mg /3 00:00: [place] mL (0.083 00 Medical %) Branch nebulizer solution albuterol 0 Yes [facility] (PROVENTIL) 2- ity of 2.5 mg /3 00:00: [place] mL (0.083 00 Medical %) Branch nebulizer solution albuterol 0 Yes [facility] (PROVENTIL) 2- ity of 2.5 mg /3 00:00: [place] mL (0.083 00 Medical %) Branch nebulizer solution albuterol 2015-0 Yes [facility] (PROVENTIL) 2- ity of 2.5 mg /3 00:00: [place] mL (0.083 00 Medical %) Branch nebulizer solution albuterol 0 Yes [facility] (PROVENTIL) 2- ity of 2.5 mg /3 00:00: [place] mL (0.083 00 Medical %) Branch nebulizer solution albuterol 0 Yes [facility] (PROVENTIL) 2- ity of 2.5 mg /3 00:00: [place] mL (0.083 00 Medical %) Branch nebulizer solution albuterol 0 Yes [facility] (PROVENTIL) 2- ity of 2.5 mg /3 00:00: [place] mL (0.083 00 Medical %) Branch nebulizer solution albuterol 0 Yes [facility] (PROVENTIL) 2- ity of 2.5 mg /3 00:00: [place] mL (0.083 00 Medical %) Branch nebulizer solution albuterol 2015-0 Yes [facility] (PROVENTIL) 2- ity of 2.5 mg /3 00:00: [place] mL (0.083 00 Medical %) Branch nebulizer solution albuterol 2015-0 Yes [facility] (PROVENTIL) 2- ity of 2.5 mg /3 00:00: [place] mL (0.083 00 Medical %) Branch nebulizer solution albuterol 2015-0 Yes [facility] (PROVENTIL) 2- ity of 2.5 mg /3 00:00: [place] mL (0.083 00 Medical %) Branch nebulizer solution albuterol Yes [facility] (PROVENTIL) 2-01 ity of 2.5 mg /3 00:00: [place] mL (0.083 00 Medical %) Branch nebulizer solution albuterol 0 Yes [facility] (PROVENTIL) 2-01 ity of 2.5 mg /3 00:00: [place] mL (0.083 00 Medical %) Branch nebulizer solution albuterol Yes [facility] (PROVENTIL) 2- ity of 2.5 mg /3 00:00: [place] mL (0.083 00 Medical %) Branch nebulizer solution albuterol 0 Yes [facility] (PROVENTIL) 2- ity of 2.5 mg /3 00:00: [place] mL (0.083 00 Medical %) Branch nebulizer solution albuterol Yes [facility] (PROVENTIL) 2- ity of 2.5 mg /3 00:00: [place] mL (0.083 00 Medical %) Branch nebulizer solution albuterol Yes [facility] (PROVENTIL) 2- ity of 2.5 mg /3 00:00: [place] mL (0.083 00 Medical %) Branch nebulizer solution albuterol 0 Yes [facility] (PROVENTIL) 2- ity of 2.5 mg /3 00:00: [place] mL (0.083 00 Medical %) Branch nebulizer solution albuterol 0 Yes [facility] (PROVENTIL) 2- ity of 2.5 mg /3 00:00: [place] mL (0.083 00 Medical %) Branch nebulizer solution albuterol 0 Yes [facility] (PROVENTIL) 2- ity of 2.5 mg /3 00:00: [place] mL (0.083 00 Medical %) Branch nebulizer solution albuterol 0 Yes [facility] (PROVENTIL) 2- ity of 2.5 mg /3 00:00: [place] mL (0.083 00 Medical %) Branch nebulizer solution albuterol 0 Yes [facility] (PROVENTIL) 2- ity of 2.5 mg /3 00:00: [place] mL (0.083 00 Medical %) Branch nebulizer solution albuterol 0 Yes [facility] (PROVENTIL) 2-01 ity of 2.5 mg /3 00:00: [place] mL (0.083 00 Medical %) Branch nebulizer solution albuterol 2015-0 Yes [facility] (PROVENTIL) 2-01 ity of 2.5 mg /3 00:00: [place] mL (0.083 00 Medical %) Branch nebulizer solution albuterol Yes [facility] (PROVENTIL) 2-01 ity of 2.5 mg /3 00:00: [place] mL (0.083 00 Medical %) Branch nebulizer solution albuterol 0 Yes [facility] (PROVENTIL) 2-01 ity of 2.5 mg /3 00:00: [place] mL (0.083 00 Medical %) Branch nebulizer solution albuterol 0 Yes [facility] (PROVENTIL) 2- ity of 2.5 mg /3 00:00: [place] mL (0.083 00 Medical %) Branch nebulizer solution albuterol Yes [facility] (PROVENTIL) 2- ity of 2.5 mg /3 00:00: [place] mL (0.083 00 Medical %) Branch nebulizer solution albuterol Yes [facility] (PROVENTIL) 2-01 ity of 2.5 mg /3 00:00: [place] mL (0.083 00 Medical %) Branch nebulizer solution albuterol 0 Yes [facility] (PROVENTIL) 2-01 ity of 2.5 mg /3 00:00: [place] mL (0.083 00 Medical %) Branch nebulizer solution albuterol Yes [facility] (PROVENTIL) 2-01 ity of 2.5 mg /3 00:00: [place] mL (0.083 00 Medical %) Branch nebulizer solution albuterol 0 Yes [facility] (PROVENTIL) 2-01 ity of 2.5 mg /3 00:00: [place] mL (0.083 00 Medical %) Branch nebulizer solution albuterol 2015-0 Yes [facility] (PROVENTIL) 2-01 ity of 2.5 mg /3 00:00: [place] mL (0.083 00 Medical %) Branch nebulizer solution albuterol Yes [facility] (PROVENTIL) 2- ity of 2.5 mg /3 00:00: [place] mL (0.083 00 Medical %) Branch nebulizer solution albuterol Yes [facility] (PROVENTIL) 2-01 ity of 2.5 mg /3 00:00: [place] mL (0.083 00 Medical %) Branch nebulizer solution albuterol 0 Yes [facility] (PROVENTIL) 2-01 ity of 2.5 mg /3 00:00: [place] mL (0.083 00 Medical %) Branch nebulizer solution albuterol 0 Yes [facility] (PROVENTIL) 2-01 ity of 2.5 mg /3 00:00: [place] mL (0.083 00 Medical %) Branch nebulizer solution albuterol 0 Yes [facility] (PROVENTIL) 2- ity of 2.5 mg /3 00:00: [place] mL (0.083 00 Medical %) Branch nebulizer solution albuterol 0 Yes [facility] (PROVENTIL) 2- ity of 2.5 mg /3 00:00: [place] mL (0.083 00 Medical %) Branch nebulizer solution albuterol Yes [facility] (PROVENTIL) 2- ity of 2.5 mg /3 00:00: [place] mL (0.083 00 Medical %) Branch nebulizer solution albuterol Yes [facility] (PROVENTIL) 2- ity of 2.5 mg /3 00:00: [place] mL (0.083 00 Medical %) Branch nebulizer solution albuterol 0 Yes [facility] (PROVENTIL) 2- ity of 2.5 mg /3 00:00: [place] mL (0.083 00 Medical %) Branch nebulizer solution albuterol 0 Yes [facility] (PROVENTIL) 2-01 ity of 2.5 mg /3 00:00: [place] mL (0.083 00 Medical %) Branch nebulizer solution albuterol 0 Yes [facility] (PROVENTIL) 2-01 ity of 2.5 mg /3 00:00: [place] mL (0.083 00 Medical %) Branch nebulizer solution albuterol 0 Yes [facility] (PROVENTIL) 2-01 ity of 2.5 mg /3 00:00: [place] mL (0.083 00 Medical %) Branch nebulizer solution albuterol 0 Yes [facility] (PROVENTIL) 2-01 ity of 2.5 mg /3 00:00: [place] mL (0.083 00 Medical %) Branch nebulizer solution albuterol Yes [facility] (PROVENTIL) 2-01 ity of 2.5 mg /3 00:00: [place] mL (0.083 00 Medical %) Branch nebulizer solution albuterol 0 Yes [facility] (PROVENTIL) 2-01 ity of 2.5 mg /3 00:00: [place] mL (0.083 00 Medical %) Branch nebulizer solution albuterol Yes [facility] (PROVENTIL) 2-01 ity of 2.5 mg /3 00:00: [place] mL (0.083 00 Medical %) Branch nebulizer solution albuterol Yes [facility] (PROVENTIL) 2-01 ity of 2.5 mg /3 00:00: [place] mL (0.083 00 Medical %) Branch nebulizer solution albuterol Yes [facility] (PROVENTIL) 2-01 ity of 2.5 mg /3 00:00: [place] mL (0.083 00 Medical %) Branch nebulizer solution albuterol Yes [facility] (PROVENTIL) 2-01 ity of 2.5 mg /3 00:00: [place] mL (0.083 00 Medical %) Branch nebulizer solution albuterol 0 Yes [facility] (PROVENTIL) 2-01 ity of 2.5 mg /3 00:00: [place] mL (0.083 00 Medical %) Branch nebulizer solution albuterol 0 Yes [facility] (PROVENTIL) 2-01 ity of 2.5 mg /3 00:00: [place] mL (0.083 00 Medical %) Branch nebulizer solution albuterol 0 Yes [facility] (PROVENTIL) 2-01 ity of 2.5 mg /3 00:00: [place] mL (0.083 00 Medical %) Branch nebulizer solution Immunizations Ordered Filled Immunization Date Status Comments [facility] e Immunization Name Name Influenza Virus 2019-04-07 Completed [facility] of Vaccine 00:00:00 [facility] Influenza Virus 2019-04-07 Completed [facility] y of Vaccine 00:00:00 [facility] Influenza Virus 2019-04-07 Completed [facility] y of Vaccine 00:00:00 [facility] Influenza Virus 2019-04-07 Completed [facility] y of Vaccine 00:00:00 [facility] Influenza Virus 2019-04-07 Completed [facility] y of Vaccine 00:00:00 [facility] Influenza Virus 2019-04-07 Completed [facility] y of Vaccine 00:00:00 [facility] Influenza Virus 2019-04-07 Completed [facility] y of Vaccine 00:00:00 [facility] Influenza Virus 2019-04-07 Completed [facility] y of Vaccine 00:00:00 [facility] Influenza Virus 2019-04-07 Completed [facility] y of Vaccine 00:00:00 [facility] Influenza Virus 2019-04-07 Completed [facility] y of Vaccine 00:00:00 [facility] Influenza Virus 2019-04-07 Completed [facility] y of Vaccine 00:00:00 [facility] Influenza Virus 2019-04-07 Completed [facility] y of Vaccine 00:00:00 [facility] Influenza Virus 2019-04-07 Completed [facility] y of Vaccine 00:00:00 [facility] Influenza Virus 2019-04-07 Completed [facility] y of Vaccine 00:00:00 [facility] Influenza Virus 2019-04-07 Completed [facility] y of Vaccine 00:00:00 [facility] Influenza Virus 2019-04-07 Completed [facility] y of Vaccine 00:00:00 [facility] Influenza Virus 2019-04-07 Completed [facility] y of Vaccine 00:00:00 [facility] Influenza Virus 2019-04-07 Completed [facility] y of Vaccine 00:00:00 [facility] Influenza Virus 2019-04-07 Completed [facility] y of Vaccine 00:00:00 [facility] Influenza Virus 2019-04-07 Completed [facility] y of Vaccine 00:00:00 [facility] Influenza Virus 2019-04-07 Completed [facility] y of Vaccine 00:00:00 [facility] Influenza Virus 2019-04-07 Completed [facility] y of Vaccine 00:00:00 [facility] Influenza Virus 2019-04-07 Completed [facility] y of Vaccine 00:00:00 [facility] Influenza Virus 2019-04-07 Completed [facility] y of Vaccine 00:00:00 [facility] Influenza Virus 2019-04-07 Completed [facility] y of Vaccine 00:00:00 [facility] Influenza Virus 2019-04-07 Completed [facility] y of Vaccine 00:00:00 [facility] Influenza Virus 2019-04-07 Completed [facility] y of Vaccine 00:00:00 [facility] Influenza Virus 2019-04-07 Completed [facility] y of Vaccine 00:00:00 [facility] Influenza Virus 2019-04-07 Completed [facility] y of Vaccine 00:00:00 [facility] Influenza Virus 2019-04-07 Completed Universit y of Vaccine 00:00:00 [facility] Influenza Virus 2019-04-07 Completed Universit y of Vaccine 00:00:00 [facility] Influenza Virus 2019-04-07 Completed Universit y of Vaccine 00:00:00 [facility] Influenza Virus 2019-04-07 Completed Universit y of Vaccine 00:00:00 [facility] Influenza Virus 2019-04-07 Completed Universit y of Vaccine 00:00:00 [facility] Influenza Virus 2019-04-07 Completed Universit y of Vaccine 00:00:00 [facility] Influenza Virus 2019-04-07 Completed Universit y of Vaccine 00:00:00 [facility] Influenza Virus 2019-04-07 Completed Universit y of Vaccine 00:00:00 [facility] Influenza Virus 2019-04-07 Completed Universit y of Vaccine 00:00:00 [facility] Influenza Virus 2019-04-07 Completed Universit y of Vaccine 00:00:00 [facility] Influenza Virus 2019-04-07 Completed Universit y of Vaccine 00:00:00 [facility] Influenza Virus 2019-04-07 Completed Universit y of Vaccine 00:00:00 [facility] Influenza Virus 2019-04-07 Completed Universit y of Vaccine 00:00:00 [facility] Influenza Virus 2019-04-07 Completed Universit y of Vaccine 00:00:00 [facility] Influenza Virus 2019-04-07 Completed Universit y of Vaccine 00:00:00 [facility] Influenza Virus 2019-04-07 Completed Universit y of Vaccine 00:00:00 [facility] Vital Signs Vital Name Observation Time Observation Value Comments Source Systolic blood 2020-11-20 16:07:00 143 mm[Hg] Univer sity of pressure [facility] Diastolic blood 2020-11-20 16:07:00 77 mm[Hg] Unive rsity of pressure [facility] Heart rate 2020-11-20 16:07:00 114 /min General acute hospital Body temperature 2020-11-20 16:07:00 36.39 Geovanna Univ ersity of [facility] Body height 2020-11-20 16:07:00 152.4 cm General acute hospital Body weight 2020-11-20 16:07:00 52.844 kg [facility] BMI 2020-11-20 16:07:00 22.75 kg/m2 [facility] Oxygen saturation in 2020-11-20 16:07:00 96 /min University of Arterial blood by [facility] feliciano Pulse oximetry Branch Systolic blood 2020-03-29 05:00:00 165 mm[Hg] Univer sity of pressure [facility] Diastolic blood 2020-03-29 05:00:00 88 mm[Hg] Unive rsity of [facility] Heart rate 2020-03-29 05:00:00 82 /min [facility] Respiratory rate 2020-03-29 05:00:00 20 /min [facility] Oxygen saturation in 2020-03-29 05:00:00 96 /min [facility] of Arterial blood by [facility] feliciano Pulse oximetry Branch Body temperature 2020-03-29 01:46:00 37.56 Geovanna [facility] Body weight 2020-03-29 01:46:00 51.71 kg [facility] BMI 2020-03-29 01:46:00 22.26 kg/m2 [facility] Systolic blood 2020-03-29 05:00:00 165 mm[Hg] Univer sity of [facility] Diastolic blood 2020-03-29 05:00:00 88 mm[Hg] Unive rsity of [facility] Heart rate 2020-03-29 05:00:00 82 /min [facility] Respiratory rate 2020-03-29 05:00:00 20 /min [facility] Oxygen saturation in 2020-03-29 05:00:00 96 /min [facility] of Arterial blood by [facility] feliciano Pulse oximetry Branch Body temperature 2020-03-29 01:46:00 37.56 Geovanna [facility] Body weight 2020-03-29 01:46:00 51.71 kg [facility] BMI 2020-03-29 01:46:00 22.26 kg/m2 [facility] Systolic blood 2020-02-23 00:25:00 99 mm[Hg] Univer sity of [facility] Diastolic blood 2020-02-23 00:25:00 50 mm[Hg] Unive rsity of [facility] Heart rate 2020-02-23 00:25:00 77 /min [facility] Body temperature 2020-02-23 00:25:00 36.61 Geovanna [facility] Respiratory rate 2020-02-23 00:25:00 18 /min [facility] Oxygen saturation in 2020-02-23 00:25:00 96 /min [facility] [place] [facility] fel[place] Pulse oxim[facility] Branch Body weight 2020-02-22 08:18:00 53.479 kg [facility] BMI 2020-02-22 08:18:00 23.03 kg/m2 [facility] Systolic blood 2020-02-23 00:25:00 99 mm[Hg] [facility]iver [facility]ity [facility] Diastolic blood 2020-02-23 00:25:00 50 mm[Hg] Unive rsity of [facility] Heart rate 2020-02-23 00:25:00 77 /min [facility] Body temperature 2020-02-23 00:25:00 36.61 Geovanna [facility] Respiratory rate 2020-02-23 00:25:00 18 /min [facility] Oxygen saturation in 2020-02-23 00:25:00 96 /min [facility] Arterial blood by [facility] Pulse oximetry Branch Body weight 2020-02-22 08:18:00 53.479 kg [facility] BMI 2020-02-22 08:18:00 23.03 kg/m2 [facility] Systolic blood 2020-02-15 00:00:00 153 mm[Hg] Univer sity of [facility] Diastolic blood 2020-02-15 00:00:00 69 mm[Hg] Unive rsity of [facility] Heart rate 2020-02-15 00:00:00 96 /min [facility] Respiratory rate 2020-02-15 00:00:00 14 /min [facility] Oxygen saturation in 2020-02-15 00:00:00 95 /min [facility] by [place] [facility] [place] Pulse oxim[facility] Body temperature 2020-02-14 20:13:00 37.39 Geovanna [facility] Body weight 2020-02-14 20:13:00 52.164 kg [facility] BMI 2020-02-14 20:13:00 22.46 kg/m2 [facility] Systolic blood 2020-02-14 19:24:00 153 mm[Hg] Univer [facility]ity of [facility] Diastolic blood 2020-02-14 19:24:00 90 mm[Hg] Unive rsity of [facility] Heart rate 2020-02-14 19:24:00 120 /min [facility] Body temperature 2020-02-14 19:22:00 36.83 Geovanna [facility] Respiratory rate 2020-02-14 19:22:00 21 /min [facility] Body height 2020-02-14 19:22:00 152.4 cm [facility] Body weight 2020-02-14 19:22:00 52.164 kg [facility] BMI 2020-02-14 19:22:00 22.46 kg/m2 [facility] Oxygen saturation in 2020-02-14 19:22:00 95 /min [facility] blood by [place] [facility] Pulse oxim[facility] Branch Systolic blood 2020-01-29 16:22:00 171 mm[Hg] Univer sity of [facility] Diastolic blood 2020-01-29 16:22:00 79 mm[Hg] Unive rsity of [facility] Heart rate 2020-01-29 16:21:00 100 /min [facility] Body temperature 2020-01-29 16:21:00 36.5 Geovanna [facility] Respiratory rate 2020-01-29 16:21:00 16 /min [facility] Body height 2020-01-29 16:21:00 152.4 cm [facility] Body weight 2020-01-29 16:21:00 53.071 kg [facility] BMI 2020-01-29 16:21:00 22.85 kg/m2 [facility] Oxygen saturation in 2020-01-29 16:21:00 100 /min University of Arterial blood by [employer] feliciano Pulse oximetry Branch Systolic blood 2020-01-03 21:00:00 166 mm[Hg] Univer sity of [facility] Diastolic blood 2020-01-03 21:00:00 76 mm[Hg] Unive rsity of pressure [facility] Heart rate 2020-01-03 21:00:00 100 /min [facility] Respiratory rate 2020-01-03 21:00:00 17 /min [facility] Oxygen saturation in 2020-01-03 21:00:00 94 /min [facility] Arterial blood by [facility] feliciano Pulse oximetry Branch Body temperature 2020-01-03 16:45:00 36.72 Geovanna [facility] Body weight 2020-01-03 16:45:00 53.071 kg [facility] BMI 2020-01-03 16:45:00 22.11 kg/m2 [facility] Heart rate 2019-12-08 13:35:00 111 /min [facility] Respiratory rate 2019-12-08 13:35:00 20 /min [facility] Oxygen saturation in 2019-12-08 13:35:00 94 /min [facility] Arterial blood by [facility] Pulse oximetry Branch Systolic blood 2019-12-08 12:42:00 169 mm[Hg] Univer sity of [facility] Diastolic blood 2019-12-08 12:42:00 76 mm[Hg] Unive rsity of pressure [facility] Body temperature 2019-12-08 12:42:00 36.78 Geovanna [facility] Body height 2019-12-05 16:38:00 154.9 cm [facility] Body weight 2019-12-05 16:38:00 54.885 kg [facility] BMI 2019-12-05 16:38:00 22.86 kg/m2 [facility] Systolic blood 2019-09-20 20:34:00 164 mm[Hg] Univer [facility]ity of [facility] Diastolic blood 2019-09-20 20:34:00 76 mm[Hg] Unive rsity of [facility] Heart rate 2019-09-20 20:34:00 80 /min [facility] Body temperature 2019-09-20 20:29:00 36.67 Geovanna [facility] Respiratory rate 2019-09-20 20:29:00 20 /min [facility] [place] [facility] [place] Body height 2019-09-20 20:29:00 157.5 cm [facility] Body weight 2019-09-20 20:29:00 52.345 kg [facility] BMI 2019-09-20 20:29:00 21.11 kg/m2 Universi ty of [facility] Oxygen saturation in 2019-09-20 20:29:00 98 /min [facility] of Arterial blood by [facility] Pulse oximetry Branch Systolic blood 2019-08-31 22:02:00 159 mm[Hg] Univer [facility]ity of [facility] [place] Diastolic blood 2019-08-31 22:02:00 79 mm[Hg] Unive rsity of pressure [facility] Heart rate 2019-08-31 22:02:00 101 /min Universi ty of [facility] Body temperature 2019-08-31 22:02:00 36.56 Geovanna Univ ersity of [facility] Body height 2019-08-31 22:02:00 153.7 cm [facility] [place] Body weight 2019-08-31 22:02:00 52.617 kg [facility] BMI 2019-08-31 22:02:00 22.28 kg/m2 [facility] Systolic blood 2019-03-29 19:16:00 157 mm[Hg] Univer [facility]ity of [facility] Diastolic blood 2019-03-29 19:16:00 71 mm[Hg] Unive rsity of pressure [facility] Heart rate 2019-03-29 19:16:00 114 /min Universi ty of [facility] Body temperature 2019-03-29 19:16:00 36.17 Geovanna Univ ersity of [facility] Respiratory rate 2019-03-29 19:16:00 22 /min Univ ersity of [facility] Body weight 2019-03-29 19:16:00 52.98 kg [facility] BMI 2019-03-29 19:16:00 18.85 kg/m2 Universi ty of [facility] Systolic blood 2019-03-23 19:02:00 141 mm[Hg] Univer sity of pressure [facility] Diastolic blood 2019-03-23 19:02:00 69 mm[Hg] Unive rsity of pressure [facility] Heart rate 2019-03-23 19:02:00 80 /min Universi ty of [facility] Body temperature 2019-03-23 19:02:00 36.83 Geovanna [facility] ersity of [facility] Respiratory rate 2019-03-23 19:02:00 18 /min [facility] ersity of [facility] Body height 2019-03-23 19:02:00 167.6 cm Universi ty of [facility] Body weight 2019-03-23 19:02:00 52.527 kg Universi ty of [facility] BMI 2019-03-23 19:02:00 18.69 kg/m2 Universi ty of [facility] Systolic blood 2019-03-16 21:40:00 141 mm[Hg] Univer sity of pressure [facility] Diastolic blood 2019-03-16 21:40:00 70 mm[Hg] Unive rsity of pressure [facility] Heart rate 2019-03-16 21:40:00 110 /min Universi ty of [facility] Body temperature 2019-03-16 20:57:00 37.22 Geovanna [facility] ersity of [facility] Body height 2019-03-16 20:57:00 154.9 cm [facility] [place] Body weight 2019-03-16 20:57:00 54.432 kg Universi ty of [facility] BMI 2019-03-16 20:57:00 22.67 kg/m2 Universi ty of [facility] Procedures Procedure Date / Time Performing Source Performed Clinician EXTERNAL PROVIDER RECORDS 2020-12-05 Doctor Marian westfall of 05:01:00 Unassigned, No [facility] AUTHORIZATION TO RELEASE PHI TO 2020-11-20 Doctor [facility] 05:01:00 Unassigned, No [facility] URINALYSIS 2020-03-29 Maribell Foster [place] of 03:09:00 [facility] THYROID STIMULATING HORMONE 2020-03-29 Maribell Foster Univ ersity of 03:04:00 [facility] COMP. METABOLIC PANEL ([id number]) 2020-03-29 Maribell Foster iversity of 03:04:00 [facility] CBC WITH DIFF 2020-03-29 Maribell Foster [place] of 03:04:00 [facility] GLYCOSYLATED HEMOGLOBIN (A1C) 2020-03-29 Maribell Foster Un iversity of 03:04:00 [facility] ECHO ROUTINE W/DOPPLER COLOR 2020-02-22 Pepe [facility] versity of 20:06:52 [facility] TROPONIN I 2020-02-22 Pepe [facility] of 12:39:00 [facility] TROPONIN I 2020-02-22 Pepe [facility] of 05:09:00 [facility] IRON PANEL 2020-02-22 Pepe [facility] of 05:09:00 [facility] GLYCOSYLATED HEMOGLOBIN (A1C) 2020-02-22 Pepe [facility] iversity of 05:09:00 [facility] TROPONIN I 2020-02-22 Pepe, [facility] of 05:08:00 [facility] BASIC METABOLIC PANEL (NA, K, CL, 2020-02-22 Pepe [facility] of CO2, GLUCOSE, BUN, CREATININE, CA) 05:08:00 [facility] LIPID PANEL ([id number])(TOTAL 2020-02-22 [facility] sity of CHOLESTEROL, TRIGLYCERIDES, HDL) 05:08:00 [facility] CBC WITH DIFF 2020-02-22 Pepe [facility] of 05:08:00 [facility] VITAMIN B12, LEVEL 2020-02-22 [facility] of 05:05:00 [facility] VITAMIN D, 25-OH 2020-02-22 [facility] of 05:05:00 [facility] PROCALCITONIN 2020-02-22 [facility] of 05:05:00 [facility] FECAL LEUKOCYTES 2020-02-22 Jessie [facility] of 04:46:00 [facility] URINALYSIS 2020-02-22 Pepe [facility] of 04:34:00 [facility] LEGIONELLA URINARY ANTIGEN TST 2020-02-22 Pepe [facility] U niversity of 04:34:00 [facility] PNEUMOCOCCAL ANTIGEN 2020-02-22 Pepe [facility] of 04:33:00 [facility] CLOSTRIDIUM DIFFICILE TOXIN 2020-02-22 Pepe [facility] ersity of 03:15:00 [facility] XR ABDOMEN 2 VW 2020-02-22 Pepe [facility] of 01:50:00 [facility] EKG-12 LEAD 2020-02-21 Doctor University of 18:10:08 Unassigned, No [facility] EKG-12 LEAD 2020-02-21 Singer [facility] of 18:02:02 [facility] LACTIC ACID WHOLE BLOOD 2020-02-21 [facility] 17:01:00 [facility] PHOSPHORUS 2020-02-21 Jessie [facility] of 17:00:00 [facility] LIPASE 2020-02-21 Singer [facility] of 17:00:00 [facility] MAGNESIUM 2020-02-21 Jessie [facility] of 17:00:00 [facility] FERRITIN SERUM 2020-02-21 Pepe [facility] of 17:00:00 [facility] TROPONIN I 2020-02-21 Singer [facility] of 17:00:00 [facility] COMP. METABOLIC PANEL ([id number]) 2020-02-21 Titi Hahn iversity of 17:00:00 [facility] LIPID PANEL ([id number])(TOTAL 2020-02-21 Rebecca Cantu [facility] sity of CHOLESTEROL, TRIGLYCERIDES, HDL) 17:00:00 [facility] XR CHEST 1 VW 2020-02-21 Singer [facility] of 15:31:44 [facility] COVID-19 (ID NOW RAPID TESTING) 2020-02-21 Singer [facility] of 15:23:00 [facility] CBC WITH DIFF 2020-02-21 Hahn, [facility] of 15:19:00 [facility] CONSENT/REFUSAL FOR DIAGNOSIS AND 2020-02-21 [facility] of TREATMENT 14:24:00 Unassigned, No [facility] XR CHEST 1 VW 2020-02-14 Rachelle Ramos [place] of 22:30:31 [facility] LACTIC ACID WHOLE BLOOD 2020-02-14 Rachelle Ramos [facility] ty of 22:23:00 [facility] URINALYSIS 2020-02-14 Rachelle Ramos of 21:49:00 [facility] UNILATERAL VENOUS DUPLEX LOWER 2020-02-14 Rachelle Ramos niversity of EXTREMITY BY VASCULAR LAB 21:23:18 [facility] LIPASE 2020-02-14 Titi Hahn [place] of 20:45:00 [facility] TROPONIN I 2020-02-14 Singer [facility] of 20:45:00 [facility] THYROID STIMULATING HORMONE 2020-02-14 [facility] ersity of 20:45:00 [facility] COMP. METABOLIC PANEL ([id number]) 2020-02-14 Titi Hahn Un iversity of 20:45:00 [facility] CBC WITH DIFF 2020-02-14 [facility] 20:45:00 [facility] PROTHROMBIN TIME / INR 2020-02-14 [facility] 20:45:00 [facility] D-DIMER 2020-02-14 [facility] of 20:45:00 [facility] ACTIVATED PARTIAL THRMPLAS NAVDEEP 2020-02-14 Titi Hahn U niversity of 20:45:00 [facility] EKG-12 LEAD 2020-02-14 Hahn, [facility] of 20:43:52 [facility] EKG-12 LEAD 2020-02-14 Hahn, [facility] of 20:13:40 [facility] CT ABDOMEN PELVIS W CONTRAST 2020-01-03 Sb Canela Uni versity of 18:56:39 [facility] LIPASE 2020-01-03 Sb Can[place] of 17:28:00 [facility] HEPATIC FUNCTION PANEL ([id number]) 2020-01-03 Sb Canela niversity of (ALB,T.PRO,BILI 17:28:00 [facility],BU/BC,ALT,AST,ALK PHOS) Branch BASIC METABOLIC PANEL (NA, K, CL, 2020-01-03 Merritt Canela [place] of CO2, GLUCOSE, BUN, CREATININE, CA) 17:28:00 [facility] CBC WITH DIFFERENTIAL 2020-01-03 Sb Can[place] of 17:28:00 [facility] PROTHROMBIN TIME / INR 2020-01-03 Sb Canela y of 17:28:00 [facility] ACTIVATED PARTIAL THRMPLAS NAVDEEP 2020-01-03 Sb Canela niversity of 17:28:00 [facility] URINALYSIS 2020-01-03 Sb Canela of 17:28:00 [facility] LACTIC ACID WHOLE BLOOD 2020-01-03 Sb Canela ty of 17:28:00 [facility] NOTICE OF PRIVACY PRACTICES 2020-01-03 [facility] ersity of 16:34:44 Unassigned, No [facility] Branch CONSENT/REFUSAL FOR DIAGNOSIS AND 2020-01-03 [facility] 16:34:21 Unassigned, No [facility] BASIC METABOLIC PANEL (NA, K, CL, 2019-12-06 Navid De Los Santos [facility] CO2, GLUCOSE, BUN, CREATININE, CA) 07:28:00 [facility] CBC WITH DIFFERENTIAL 2019-12-06 [facility] of 07:28:00 [facility] FL BARIUM SWALLOW ESOPHAGUS 2019-12-05 [facility] ersity of 20:07:00 [facility] PHOSPHORUS 2019-12-05 [facility] of 15:42:00 [facility] MAGNESIUM 2019-12-05 [facility] 15:42:00 [facility] BASIC METABOLIC PANEL (NA, K, CL, 2019-12-05 Navid De Los Santos [facility] CO2, GLUCOSE, BUN, CREATININE, CA) 15:42:00 [facility] CBC WITH DIFFERENTIAL 2019-12-05 [facility] of 15:42:00 [facility] LAPAROSCOPIC GLORY FUNDOPLICATION 2019-12-05 Jerald Sims [facility] 11:50:00 [facility] ESOPHAGOGASTRODUODENOSCOPY 2019-12-05 Bobby Sims [facility] 11:50:00 [facility] CONSENT/REFUSAL FOR DIAGNOSIS AND 2019-12-05 [facility] 10:43:31 Unassigned, No [facility] ASSIGNMENT OF BENEFITS 2019-12-05 [facility] of 10:42:54 Unassigned, No [facility] HOME HEALTH - OTHER 2019-09-01 [facility] o f 06:01:00 Unassigned, No [facility] HOME HEALTH - OTHER 2019-08-24 [facility] o f 06:01:00 Unassigned, No [facility] HOME HEALTH - OTHER 2019-08-11 [facility] o f 06:01:00 Unassigned, No [facility] HOME HEALTH - OTHER 2019-08-03 [facility] o f 06:01:00 Unassigned, No [facility] HOME HEALTH - OTHER 2019-07-18 [facility] o f 06:01:00 Unassigned, No [facility] HOME HEALTH 485 2019-07-12 [facility] of 06:01:00 Unassigned, No [facility] Branch HOME HEALTH - OTHER 2019-07-03 [facility] o f 06:01:00 Unassigned, No [facility] EXTERNAL PROVIDER RECORDS 2019-04-02 Doctor Marian herediay of 05:01:00 Unassigned, No [facility] ASSIGNMENT OF BENEFITS 2019-03-16 Doctor Universit y of 20:47:08 Unassigned, No [facility] INSURANCE CORRESPONDENCE 2019-03-08 Doctor James ity of 05:01:00 Unassigned, No [facility] Encounters Start End Encounter Admission Attending Care Care Encounter Source Date/Time Date/Time Type Type Clinicians Facility Department ID 2021-05-23 Emergency [facility] [id number] Univers 15:52:43 ity of [facility] 2021-05-23 Emergency [facility] [id number] Univers 09:29:50 ity of [facility] 2021-05-23 Emergency [facility] [id number] Univers 08:14:23 ity of [facility] 2021-05-22 [facility] [id number] Univers 13:04:05 BOBBY ity [facility] 2022-06-09 2022-06-09 Outpatient R ADITYA [facility] [id number] Univers 15:00:00 15:00:00 CANDIDA ity [facility] 2020-12-30 2020-12-30 [facility] [id number] Univers 15:45:00 15:45:00 WONDIFUL ity o f [facility] 2020-12-05 2020-12-05 Orders Doctor YIP 1.2.840.114 [id number] Univers 00:00:00 00:00:00 Only Unassigned, MICHA 350.1.13.10 ity of [place] [facility] 4.2.7.2.686 Varinder as [phone] [address] 2020-11-20 2020-11-20 Office [facility] 1.2.840.114 [id number] Univers 10:48:51 11:42:30 Visit Sharla Pena 350.1.13.10 it[place] of [place] [phone] Dc dical nal 044 [address] Building 2020-11-20 2020-11-20 Outpatient R FAITH [facility] [id number] Univers 10:30:00 10:30:00 SHARLA ity o f [facility] 2020-11-20 2020-11-20 Orders Doctor PHI 1.2.840.114 [id number] Univers 00:00:00 00:00:00 Only Unassigned, MICHA 350.1.13.10 ity of [place] [facility] 4.2.7.2.686 Varinder as [phone] [facility] 009 Branch 2020-11-19 2020-11-19 Telephone [facility] 1.2.840.114 [id number] Univers 00:00:00 00:00:00 Wondiful A [facility] 350.1.13.10 ity of [place] 4.2.7.2.686 Varinder as Jennifer [phone] [address] Office Building One 2020-05-30 2020-05-30 Outpatient [facility] [id number] Univers 14:00:00 14:00:00 WONDIFUL ity o f [facility] 2020-04-26 2020-04-26 Out[facility] [id number] Univers 11:00:00 11:00:00 WONDIFUL ity o f [facility] 2020-03-28 2020-03-[address] [facility] 1.2.015.514 [id number] 20:48:00 00:17:00 Maribell Fisher [place] 350.1.13.10 [place] 4.2.7.2.686 [place] [phone] [facility] 2020-03-28 2020-03-[address] [facility] 1.2.442.982 [id number] Univers 20:48:00 00:17:00 Maribell Fisher [place] 350.1.13.10 i ty of [place] 4.2.7.2.686 [facility] [phone] [place] 634504 Branch 2020-02-23 2020-02-23 Transition Abelino Conteh 1.2.840.114 [id number] 00:00:00 00:00:00 of Care Demetrio Galeas 350.1.13.10 [place] 4.2.7.2.686 [id number] [id number] 2020-02-23 2020-02-23 Transition Abelino Conteh 1.2.840.114 [id number] Univers 00:00:00 00:00:00 of Care Demetrio Maiery 350.1.13.10 it[place] of [place] [phone] [facility] [address] 2020-02-21 2020-02-22 Emergency Titi Hahn [facility] 1.2.840. 114 [id number] 09:30:54 20:01:00 Prashanth Vo 350.1.13.10 [place] 4.2.7.2.686 [place] [phone] [facility] 2020-02-21 2020-02-22 Emergency Hahn Titi [facility] 1.2.840. 114 [id number] [facility] 09:30:54 20:01:00 Prashanth Vo 350.1.13.10 ity of [place] [phone] [facility] [address] 2020-02-21 2020-02-21 Telemedicmya Gardiner [facility] 1.2.840.114 [id number] [facility] 07:44:24 10:48:34 ne Visit Wonmalu Pena 350.1.13.10 [place] [phone] Dc dical [address] 2020-02-21 2020-02-21 Telemedici Zuleyka [facility] 1.2.840.114 [id number] 07:44:24 10:48:34 ne Visit Wonnoriful Jamshid Pena 350.1.13.10 [place] 4.2.7.2.686 Professio [phone] [address] 2020-02-21 2020-02-21 Outpatient R ZULEYKA [facility] [id number] [facility] 08:00:00 08:00:00 WONDIFUL ity o f [facility] 2020-02-14 2020-02-14 [facility] Richard [facility] 1.2.607.122 [id number] [facility] 15:20:24 19:50:00 Rachelle Pena 350.1.13.10 i ty of [place] [phone] [facility] [address] 2020-02-14 2020-02-14 Urgent Provider, Ar Urgent Care [facility] 1.2.840.114 [id number] Univers 14:13:11 15:38:31 Care [facility] 350.1.13.1 0 ity of [place] 4.2.7.2.686 Varinder as Professio [phone] Dc dical nal [address] One 2020-02-14 2020-02-14 Glass Technician/Installer 2, Adc Lab [facility] 1.2.840.114 [id number] Univers 13:39:57 13:54:57 Visit [place] Gardiner 350.1.13. 10 [place] [phone] Dc dical nal 353 [facility] 2020-02-14 2020-02-14 Outpatient R [facility] [id number] Univers 13:30:00 13:30:00 ity of [facility] 2020-02-14 2020-02-14 Case [facility] 1.2.840.114 [id number] Univers 00:00:00 00:00:00 Management [place] Pena 350.1.13.10 [place] [phone] Dc dical nal 044 [facility] 2020-02-08 2020-02-08 Telemedici [facility] 1.2.840.114 [id number] Univers 08:02:08 10:54:58 ne Visit [place] Pena 350.1.13.10 ity of [place] [phone] Dc dical nal 044 [facility] 2020-02-08 2020-02-08 Outpatient [facility] [id number] Univers 10:15:00 10:15:00 WONDIFUL ity o f [facility] 2020-02-04 2020-02-04 Telephone Zo Easley 1.2.840.114 [id number] Univers 00:00:00 00:00:00 MICHA 350.1.13.10 it y of HOSPITAL 4.2.7.2.686 Varinder as [phone] [facility] 019 Branch 2020-01-30 2020-01-30 Outpatient [facility] [id number] Univers 16:15:00 16:15:00 WONDIFUL ity o f [facility] 2020-01-29 2020-01-29 Urgent Pob1, Acute Care Clinic [facility] 1. 2.840.114 [id number] Univers 11:01:47 11:21:47 Care [facility] 350.1.13.10 ity of [place] 4.2.7.2.686 Varinder as Professio [phone] [facility] [address] Office Building One 2020-01-29 2020-01-29 Outpatient R [facility] [id number] Univers 11:20:00 11:20:00 ity of [facility] 2020-01-03 2020-01-03 Emergency X [facility] ERT [id number] Univers 11:46:19 16:35:00 SB ity of [facility] 2020-01-03 2020-01-03 Emergency [facility] 1.2.726.212 [id number] Univers 11:46:19 16:35:00 Sb [place] 350.1.13.10 i ty [place] [phone] [facility] 084 Branch 2020-01-03 2020-01-03 Orders Doctor PHI 1.2.840.114 [id number] Univers 00:00:00 00:00:00 Only Unassigned, MICHA 350.1.13.10 ity of [place] [facility] 4.2.7.2.686 Varinder as [phone] [facility] 009 Branch 2019-12-25 2019-12-25 Outpatient [facility] [id number] Univers 13:00:00 13:00:00 WONDIFUL ity o f [facility] 2019-12-22 2019-12-22 Outpatient [facility] [id number] Univers 13:45:00 13:45:00 BOBBY ity of [facility] 2019-12-14 2019-12-14 Telephone Zuleyka [facility] 1.2.840.114 [id number] Univers 00:00:00 00:00:00 Wondiful A Health 350.1.13.10 ity of [place] 4.2.7.2.686 Varinder as Professio [phone] [facility] [address] Office Building One 2019-12-12 2019-12-12 Telephone Zuleyka [facility] 1.2.840.114 [id number] Univers 00:00:00 00:00:00 Wondiful A [place] 350.1.13.10 ity of [place] [phone] [facility] 044 [facility] 2019-12-11 2019-12-11 Transition Abelino Conteh 1.2.840.114 [id number] Univers 00:00:00 00:00:00 of Care Demetrio A Galeas 350.1.13.10 ity of [place] [phone] [facility] [address] 2019-12-05 2019-12-08 Inpatient R BETHANY [facility] [id number] Univers 05:41:49 15:24:00 BOBBY ity [facility] 2019-12-05 2019-12-08 [facility] Britta Sims 1.2.483.991 [id number] Univers 05:41:49 15:24:00 Encounter Bobby Rodarte Micha 350.1.13.10 ity of [facility] 4.2.7.2.686 Varinder as [phone] [facility] [address] 2019-12-04 2019-12-04 Laboratory Only, Adc Test [facility] 1.2.840. 114 [id number] Univers 13:54:20 14:00:22 Only Bobby Sims [place] 350.1.13.10 it[place] of [place] [phone] [facility] 353 [facility] 2019-12-04 2019-12-04 Outpatient R BETHANY [facility] [id number] Univers 13:45:00 13:45:00 BOBBY ity of [facility] 2019-11-27 2019-11-27 Telephone [facility] 1.2.840.114 [id number] Univers 00:00:00 00:00:00 Wondiful A Health 350.1.13.10 ity of [place] 4.2.7.2.686 Varinder as Professio [phone] [address] Office [facility] 2019-11-21 2019-11-21 Prep For Hung, [facility]ERS[facility] 1.2.840.114 [id number] Univers 00:00:00 00:00:00 Surgery Kalyn Y HEALTH 350.1.13.10 i ty of [place] [phone] [address] 2019-11-21 2019-11-21 Case Hung, [facility] 1.2.840.114 [id number] Univers 00:00:00 00:00:00 Management Kalyn Y HEALTH 350.1.13.10 ity of CL[place] [phone] [address] 2019-11-21 2019-11-21 Case Hung, [facility] 1.2.840.114 [id number] Univers 00:00:00 00:00:00 Management Kalyn Y HEALTH 350.1.13.10 ity of CL[place] [phone] [address] 2019-11-13 2019-11-13 Telephone [facility] 1.2.840.114 [id number] Univers 00:00:00 00:00:00 Wondiful A Health 350.1.13.10 ity of [place] 4.2.7.2.686 Varinder as Professio [phone] [address] 2019-10-05 2019-10-05 Telephone JAMES PersaudIT 1.2.840.114 [id number] Univers 00:00:00 00:00:00 Kalyn Y HEALTH 350.1.13.10 i ty of CL[place] [phone] [address] 2019-09-27 2019-09-27 Case Hung [facility] 1.2.840.114 [id number] Univers 00:00:00 00:00:00 Management Kalyn Y HEALTH 350.1.13.10 ity of [place] [phone] [address] 2019-09-22 2019-09-22 Prep For JAMES PersaudIT 1.2.840.114 [id number] Univers 00:00:00 00:00:00 Surgery Kalyn Y HEALTH 350.1.13.10 i ty of CL[place] [phone] [address] 2019-09-20 2019-09-20 Office Bethany [facility] 1.2.840.114 [id number] Univers 14:19:19 14:46:30 Visit Bobby Pena 350.1.13.10 ity of [place] [phone] Dc flor [facility] 185 [facility] 2019-09-20 2019-09-20 Outpatient R BETHANY [facility] [id number] Univers 14:15:00 14:15:00 BOBBY ity of [facility] 2019-09-01 2019-09-01 Orders Doctor YIP 1.2.840.114 [id number] Univers 00:00:00 00:00:00 Only Unassigned, MICHA 350.1.13.10 ity of [place] [facility] 4.2.7.2.686 Varinder as [phone] [address] 2019-08-31 2019-08-31 Office Zuleyka [facility] 1.2.840.114 [id number] Univers 15:53:30 16:20:15 Visit Wonnoriful A Health 350.1.13.10 ity of [place] 4.2.7.2.686 Varinder as Professio [phone] Dc flor erwin [address] One 2019-08-24 2019-08-24 Orders Doctor YIP 1.2.840.114 [id number] Univers 00:00:00 00:00:00 Only Unassigned, MICHA 350.1.13.10 ity of [place] [facility] 4.2.7.2.686 Varinder as [phone] [address] 2019-08-11 2019-08-11 Orders Doctor PHI 1.2.840.114 [id number] Univers 00:00:00 00:00:00 Only Unassigned, MICHA 350.1.13.10 ity of [place] [facility] 4.2.7.2.686 Varinder as [phone] [address] 2019-08-03 2019-08-03 Orders Doctor PHI 1.2.840.114 [id number] Univers 00:00:00 00:00:00 Only Unassigned, MICHA 350.1.13.10 ity of [place] [facility] 4.2.7.2.686 Varinder as [phone] [address] 2019-07-18 2019-07-18 Orders Doctor PHI 1.2.840.114 [id number] Univers 00:00:00 00:00:00 Only Unassigned, MICHA 350.1.13.10 ity of [place] [facility] 4.2.7.2.686 Varinder as [phone] [address] 2019-07-14 2019-07-14 Outpatient R ZULEYKA [facility] [id number] Univers 15:23:29 19:14:00 WONDIFUL ity o f [facility] 2019-07-12 2019-07-12 Orders Doctor PHI 1.2.840.114 [id number] Univers 00:00:00 00:00:00 Only Unassigned, MICHA 350.1.13.10 ity of [place] [facility] 4.2.7.2.686 Varinder as [phone] [address] 2019-07-03 2019-07-03 Orders Doctor YIP 1.2.840.114 [id number] Univers 00:00:00 00:00:00 Only Unassigned, MICHA 350.1.13.10 ity of [place] [facility] 4.2.7.2.686 Varinder as [phone] [address] 2019-04-03 2019-04-03 Telephone Zuleyka [facility] 1.2.840.114 [id number] Univers 00:00:00 00:00:00 Wondiful A Health 350.1.13.10 ity of [place] 4.2.7.2.686 Varinder as Professio [phone] [facility] 044 [facility] 2019-04-02 2019-04-02 Orders Doctor PHI 1.2.840.114 [id number] Univers 00:00:00 00:00:00 Only Unassigned, MICHA 350.1.13.10 ity of [place] [facility] 4.2.7.2.686 Varinder as [phone] [facility] [address] 2019-03-29 2019-03-29 Office Bethany [facility] 1.2.840.114 [id number] Univers 14:03:52 14:50:17 Visit Bobby Pena 350.1.13.10 ity of [place] [phone] [facility] 185 [facility] 2019-03-24 2019-03-24 Telephone Zuleyka [facility] 1.2.840.114 [id number] Univers 00:00:00 00:00:00 Jeffrynoriful A Health 350.1.13.10 ity of [place] 4.2.7.2.686 Varinder as Professio [phone] [facility] 044 [facility] 2019-03-23 2019-03-23 Office Hunter [facility] 1.2.211.211 [id number] Univers 13:49:44 15:19:34 Visit Ping Jean 350.1.13.10 i ty of [place] [phone] [facility] 377 [facility] 2019-03-23 2019-03-23 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 840.114 [id number] Univers 13:25:06 13:41:58 Visit [place] [facility] 350.1.13.1 0 ity of [place] 4.2.7.2.686 Varinder as Professio [phone] [facility] 044 [facility] 2019-03-16 2019-03-16 Office Zuleyka [facility] 1.2.840.114 [id number] Univers 15:47:43 16:37:58 Visit Phuongful Jamshid [facility] 350.1.13.10 ity of [place] 4.2.7.2.686 Varinder as Professio [phone] [address] Office Building One 2019-03-16 2019-03-16 Orders Doctor PHI 1.2.840.114 [id number] Univers 00:00:00 00:00:00 Only Unassigned, MICHA 350.1.13.10 ity of [place] [facility] 4.2.7.2.686 Varinder as [phone] [address] 2019-03-15 2019-03-15 Telephone [facility] 1.2.840.114 [id number] Univers 00:00:00 00:00:00 Wonnoriful Jamsh[facility] 350.1.13.10 ity of [place] 4.2.7.2.686 Varinder as Professio [phone] [address] [facility] One 2019-03-08 2019-03-08 Orders Doctor PHI 1.2.840.114 [id number] Univers 00:00:00 00:00:00 Only Unassigned, MICHA 350.1.13.10 ity of [place] [facility] 4.2.7.2.686 Varinder as [phone] [address] Results Test Description Test Time Test Comments Results Result Comments Source GLYCOSYLATED HEMOGLOBIN (A1C) 2020-03-29 04:32:00 Test Item Value Reference Range Interpretation Comme nts HGB A1C (test code = 4548-4) 5.4 % 4-6 KIM (test code = KIM) %A1C (NGSP) Interpretation (ADA)4.8-5.6 ? ? Normal or (Non-Diabetic Range)5.7-6.4 ? ? Increased Risk (Pre-Diabetic)>6.5 ?Diabetes Indicated Lab Interpretation (test code = Normal 20006-2) [facility] [id number] 04:04:00 Test Item Value Reference Range Interpretation Comments TSH (test code = See_Comment [Automated message] 5385658705) The system [employer] generated this result transmitted ref erence range: 0.45 - 4 .70 mIU/L. The refe rence range was not u sed to interpret this result as normal/abnor mal. Lab Interpretation (test Normal code = 06599-6) [facility] 03:38:00 Test Item Value Reference Range Interpretation Comments APPEARANCE (test code = Clear Clear 1482465450) COLOR (test code = Yellow Yellow 5549241044) PH (test code = 4.8-8.0 0642976754) SP GRAVITY (test code = 1.003-1.030 0370256274) GLU U QUAL (test code = 50 mg/dL Normal A 6472701512) BLOOD (test code = 1+ Negative A 5809628948) KETONES (test code = Negative Negative 8186680641) PROTEIN (test code = Negative Negative 2887-8) UROBILIN (test code = Normal Normal 0146339081) BILIRUBIN (test code = Negative Negative 0822735264) NITRITE (test code = Negative Negative 0965424061) LEUK NASRIN (test code = Negative Negative 7205897844) RBC/HPF (test code = See_Comment [Autom ated message] 6605243119) The system [employer] generated this result transmitted ref erence range: 0 - 3 HP F. The reference range was not used to int erpret this result as normal/abnormal . WBC/HPF (test code = See_Comment [Autom ated message] 0925240662) The system [employer] generated this result transmitted ref erence range: 0 - 5 HP F. The reference range was not used to int erpret this result as normal/abnormal . BACTERIA (test code = Few Negative A 5939868775) MUCOUS (test code = Slight Negative LPF A 5716922180) SQ EPITH (test code = HPF 8225414322) HYAL CAST (test code = See_Comment H [Aut omated message] 5907885174) The system [employer] generated this result transmitted ref erence range: <=2 LPF. The reference range was not used to int erpret this result as normal/abnormal . Lab Interpretation (test Abnormal code = 51591-3) [facility] PAN[facility] (28311)2020-03-29 03:34:00 Test Item Value Reference Range Interpretation Comments NA (test code = 141 mmol/L 135-145 0755781769) K (test code = 3.9 mmol/L 3.5-5 2744569303) CL (test code = 111 mmol/L 98-108 H 8394097538) CO2 TOTAL (test code = 21 mmol/L 23-31 L 5654822134) AGAP (test code = 2-16 2021141718) BUN (test code = 18 mg/dL 7-23 9978615581) GLUCOSE (test code = 209 mg/dL 70-110 H 1021366529) CREATININE (test code = 1.03 mg/dL 0.5-1.04 4034734900) TOTAL BILI (test code = 0.7 mg/dL 0.1-1.8 1021958708) CALCIUM (test code = 9.1 mg/dL 8.6-10.6 6328712049) T PROTEIN (test code = 6.6 g/dL 6.3-8.2 8316358598) ALBUMIN (test code = 4.0 g/dL 3.5-5 5617641137) ALK PHOS (test code = 111 U/L 34-122 2577291750) ALTv (test code = 15 U/L 5-35 1742-6) AST(SGOT) (test code = 27 U/L 13-40 1619120255) eGFR Calculation mL/min/1.73m2 (Non-) (test code = 4914856337) eGFR Calculation mL/min/1.73m2 () (test code = 9132567151) KIM (test code = KIM) Association of Glomerular Filtration Rate (GFR) and Staging of Kidney Disease* + --+ --+ ------+| GFR (mL/min/1.73 m2) ?| With Kidney Damage ?| ?Without Kidney Damage+ --------+ --------+ +| ?>90 ?| ?Stage one ?| ? Normal ?+ ---+ ---+ -------+| ?60-89 ?| ?Stage two ?| ? Decreased GFR ? + --+ --+ ------+| ?30-59 ?| ?Stage three ?| ? Stage three ? + --+ --+ ------+| ?15-29 ?| ?Stage four ? | ? Stage four ?+ ---+ ---+ -------+| ?<15 (or dialysis) ? ?| ?Stage five ? | ? Stage five ?+ ---+ ---+ -------+ *Each stage assumes the associated GFR level has been in effect for at least three months. ?Stages 1 to 5, with or without kidney disease, indicate chronic kidney disease. Notes: Determination of stages one and two (with eGFR >59mL/min/1.73 m2) requires estimation of kidney damage for at least three months as defined by structural or functional abnormalities of the kidney, manifested by either:Pathological abnormalities or Markers of kidney damage (including abnormalities in the composition of the blood or urine or abnormalities in imaging tests). Lab Interpretation Abnormal (test code = 00579-6) [facility] WITH [id number] 03:19:00 Test Item Value Reference Range Interpretation Comments WBC (test code = See_Comment H [Automated 1226-2) message] The sy stem which generated this result transmitted reference range : 4.30 - 11.10 10*3/?L. The reference range was not used to interpret this result as normal/abnormal . RBC (test code = See_Comment [Automated 080-8) message] The sy stem which generated this result transmitted reference range : 3.93 - 5.25 10*6/?L. The reference range was not used to interpret this result as normal/abnormal . HGB (test code = 14.7 g/dL 11.6-15 718-7) HCT (test code = 44.3 % 35.7-45.2 4544-3) MCV (test code = 93.3 fL 80.6-95.5 787-2) MCH (test code = 30.9 pg 25.9-32.8 785-6) MCHC (test code = 33.2 g/dL 31.6-35.1 786-4) RDW-SD (test code = 45.0 fL 39-49.9 10443-4) RDW-CV (test code = 13.1 % 12-15.5 788-0) PLT (test code = See_Comment [Automated 777-3) message] The sy stem which generated this result transmitted reference range : 166 - 358 10*3/ ?L. The reference r lucas was not used to interpret this result as normal/abnormal . MPV (test code = 10.0 fL 9.5-12.9 18926-0) NRBC/100 WBC (test See_Comment [Automat ed code = 6188202257) message] The system which generated this result transmitted reference range : 0.0 - 10.0 /100 WBCs. The refer ence range was not u sed to interpret th is result as normal/abnormal . NRBC x10^3 (test code <0.01 See_Comment [Auto mated = [id number]) message] The s ystem which generated this result transmitted reference range : 10*3/?L. The reference range was not used to interpret this result as normal/abnormal . GRAN MAT (NEUT) % 80.1 % (test code = 770-8) IMM GRAN % (test code 0.40 % = [id number]) LYMPH % (test code = 13.8 % 736-9) MONO % (test code = 5.2 % 5905-5) EOS % (test code = 0.2 % 713-8) BASO % (test code = 0.3 % 706-2) GRAN MAT x10^3(ANC) 9.51 10*3/uL 1.88-7.09 H (test code = [id number]) IMM GRAN x10^3 (test 0.05 10*3/uL 0-0.06 code = [id number]) LYMPH x10^3 (test code 1.64 10*3/uL 1.32-3.29 = 731-0) MONO x10^3 (test code 0.62 10*3/uL 0.33-0.92 = 742-7) EOS x10^3 (test code = <0.03 0.03-0.39 L 711-2) BASO x10^3 (test code 0.04 10*3/uL 0.01-0.07 = 704-7) Lab Interpretation Abnormal (test code = 62985-7) [id number] 18:02:00 Test Item Value Reference Range Interpretation Comments S. pneumoniae antigen (test code = Negative Negative 8240954020) Lab Interpretation (test code = Normal 07352-2) [facility]:00 Test Item Value Reference Range Interpretation Comments Procalcitonin (test 0.04 ng/mL <0.07 code = 2195995338) KIM (test code = KIM) INTERPRETATION OF PROCALCITONIN RESULTS IN ADULTS >= 18 YEARS OF AGE Initiation and discontinuation of antibiotics on patients with suspected or confirmed Lower Respiratory Tract Infection in Adults >= 18 years of age. + +-------- --------+ + -----+|Procalcitonin |Interpretation ?|Antibiotic ? ? |Considerations ? |ng/mL ? | ?|recommendation | ? + +-------- --------+ + -----+| <0.1 ? | Bacterial ? ? ?| Strongly ? ? ?| ? | ?| infection very | discouraged ? | Overruling: ? | ?| unlikely ? ? ? | ? | ? Clinically unstable ? ? ? + +-------- --------+ + ? High risk for adverse ? ? | <0.25 ?| Bacterial ? ? ?| Discouraged ? | ? outcome ? | ?| infection ? ? ?| ? | ? SEE IMPORTANT NOTE ?| ?| unlikely ? ? ? | ? | ? + +-------- --------+ + -----+| >=0.25 ? ? ? | Bacterial ? ? ?| Encouraged ? ?| ? | ?| infection ? ? ?| ? | ? | ?| likely ? | ? | Consider treatment failure ?+ +------- ---------+ -+ if levels does not decrease | >0.5 ? | Bacterial ? ? ?| Strongly ? ? ?| appropriately ? | ?| infection very | encouraged ? ?| ? | ?| likely ? | ? | ? + +-------- --------+ + -----+ Discontinuation of antibiotics in high-acuity patients with suspected or confirmed sepsis in Adults >= 18 years of age. + +-------- --------+ + -----+|Procalcitonin |Interpretation ?|Antibiotic ? ? |Considerations ? |ng/mL ? | ?|recommendation | ? + +-------- --------+ + -----+| <0.25 ?| Bacterial ? ? ?| Strongly ? ? ?| ? | ?| infection very | discouraged ? | Overruling: ? | ?| unlikely ? ? ? | ? | ? Clinically unstable ? ? ? + +-------- --------+ + ? High risk for adverse ? ? | <0.5 or drop | Bacterial ? ? ?| Discouraged ? | ? outcome ? | >80% from ? ?| infection ? ? ?| ? | ? SEE IMPORTANT NOTE ?| highest PCT ?| unlikely ? ? ? | ? | ? | level ?| ?| ? | ? + +-------- --------+ + -----+| >=0.5 ?| Bacterial ? ? ?| Encouraged ? ?| ? | ?| infection ? ? ?| ? | ? | ?| likely ? | ? | Consider treatment failure ?+ +------- ---------+ -+ if levels does not decrease | >1.0 ? | Bacterial ? ? ?| Strongly ? ? ?| appropriately ? | ?| infection very | encouraged ? ?| ? | ?| likely ? | ? | ? + +-------- --------+ + -----+ Percentage of drop of Procalcitonin calculation for Discontinuation of antibiotics in high-acuity patients with suspected or confirmed sepsis in Adults >= 18 years of age. ? Procalcitonin highest{}-Procalcitonin current{}Delta Procalcitonin = x100% ? Procalcitonin current {} IMPORTANT NOTE: Procalcitonin may be elevated without bacterial infection by physiologic stress related to trauma, aquino, chronic dialysis, metastatic cancer, surgery in the past seven days, malaria, some fungal infections, and some forms of vasculitis. The interpretation algorithm may not apply to patients with immunosuppression (equivalent of >10 mg of prednisone daily), HIV with CD4 cell count < 350 cells/mm3, active malignancy on systemic chemotherapy, solid organ transplant or hematopoietic stem cell transplantation, or hospital acquired pneumonia. Additionally, some clinical trials of procalcitonin have excluded patients with shock requiring vasopressor use, acute respiratory failure requiring mechanical ventilation, or those with known lung abscess/empyema. For further information please refer to:[email or web address] Lab Interpretation Normal (test code = 55558-2) [facility] HospitalFECAL [id number] 16:39:00 Test Item Value Reference Range Interpretation Comments Fecal Leukocytes (test code = Negative Negative 5976588716) Lab Interpretation (test code = Normal 44183-3) [facility] HospitalVITAMIN B12, [id number] 16:37:00 Test Item Value Reference Range Interpretation Comments VIT B12 (test code = 247 pg/mL 240-930 9218370905) KIM (test code = KIM) Biotin has been reported to cause a positive bias, interpret results relative to patient's use of biotin. Lab Interpretation (test Normal code = 11105-5) [facility] HospitalVIT[facility]IN D, [id number] 16:15:00 Test Item Value Reference Range Interpretation Comments VIT D 25OH (test code = <13 25-80 L 24678-5) KIM (test code = KIM) Deficiency: <20 ng/mLInsufficiency: 20-24 ng/mLOptimal: 25-80 ng/mL Lab Interpretation (test Abnormal code = 36103-5) [facility] HospitalLEGIONELLA URINARY ANTIGEN [id number] 15:57:00 Test Item Value Reference Range Interpretation Comments Legionella Urinary Negative Negative Antigen (test code = 4730517224) KIM (test code = KIM) Negative for L. pneumophilia serogroup I antigen in urine suggesting no recent or current infection. Infection due to Legionella cannot be ruled out since other serogroups and species may cause disease. Furthermore, antigens may not be present in urine during early stage of infection, or the level of antigen present in urine may be below the detection limit of the test. Lab Interpretation (test Normal code = 72943-8) [facility] HospitalTroponin [id number] 14:53:00 Test Item Value Reference Range Interpretation Comments TROPONIN I (test 0.029 ng/mL See_Comment [Automated code = 1202232183) message] The system which generated this result transmitted reference range : <=0.034. The reference range was not used to interpret this result as normal/abnormal . KIM (test code = Equal or Less than KIM) 0.034 ng/ml---Normal ?Note: Cardiac troponin begins to rise 3-4 hours after the onset of ischemia. Repeat in 4-6 hours if the sample was drawn within 3-4 hours of the onset of the symptom and found normal. Between 0.035 and 0.120 ng/mL--- Borderline. Questionable myocardial injury or necrosis ? ?Note: Serial measurement may be necessary to confirm or exclude the diagnosis of myocardial injury or necrosis; Clinical correlation (symptoms, EKGs, imaging studies, and others) required; Repeat in 4-6 hours if clinically indicated. ? Equal or Higher than 0.121 ng/mL---Abnormal. Myocardial Injury or Necrosis Likely ? Biotin has been reported to cause a negative bias, interpret results relative to patient's use of biotin. ? Lab Interpretation Normal (test code = 41842-3) [facility] HospitalXR ABDOMEN 2 [id number] 12:54:39HISTORY: Abdominal pain. FINDINGS: AP supine and upright views of the abdomen showed unremarkableintestinal gas pattern. Small amount of air and fecal material notedthroughout the large bowel. Cholecystectomy clips are seen in the rightupper abdomen. Upright view showed no free air.A short radiopaque catheter type device noted projected over the lateralleft mid abdomen. No organomegaly. No aggressivebone lesions. CONCLUSIONS: No acute findings.. [facility], Radiant Results Inft User - 02/22/2020 7:55 AM CDTHISTORY: Abdominal pain.FINDINGS: AP supine and upright views of the abdomen showed unremarkableintestinal gas pattern. Small amount of air and fecal material notedthroughout the large bowel. Cholecystectomy clips are seen in the rightupper abdomen. Upright view showed no free air.A short radiopaquecatheter type device noted projected over the lateralleft mid abdomen. No organomegaly. No aggressive bone lesions.CONCLUSIONS: No acute findings..[facility] Glycosylated Hemoglobin (A1C)2020-02-22 07:44:00 Test Item Value Reference Range Interpretation Comments HGB A1C (test code = 5.4 % 4-6 4548-4) KIM (test code = KIM) %A1C (NGSP) Interpretation (ADA)4.8-5.6 ? ? Normal or (Non-Diabetic Range)5.7-6.4 ? ? Increased Risk (Pre-Diabetic)>6.5 ?Diabetes Indicated Lab Interpretation Normal (test code = 67493-7) [facility] HospitalLIPID PANEL (37482)(TOTAL CHOLESTEROL, TRIGLYCERIDES, HDL)2020-02-22 07:39:00 Test Item Value Reference Range Interpretation Comments CHOL (test code = 196 mg/dL 120-200 0427691876) HDL (test code = 49 mg/dL >50 L 3372270188) HDLC RATIO (test code = See_Comment [Au tomated message] 2279037405) The system Amerist[employer] generated this result transmit leann reference range : <=4.5. The refe rence range was not u sed to interpret th is result as normal/abnormal . TRIG (test code = 121 mg/dL 30-170 1156648971) LDL CHOL (test code = 123 mg/dL See_Comment [Auto mated message] 68761-7) The system [employer] generated this result transmit leann reference range : <=160. The refe rence range was not u sed to interpret th is result as normal/abnormal . VLDL (test code = 24 mg/dL 5-60 6525158528) Lab Interpretation (test Abnormal code = 10959-7) [facility] HospitalIRON [id number] 07:37:00 Test Item Value Reference Range Interpretation Comments IRON (test code = 0644197447) 50 ug/dL 50-160 TIBC (test code = 4222479564) 243 ug/dL 250-410 L % FE SAT (test code = 5070659126) 21 % 20-50 Lab Interpretation (test code = Abnormal 08432-6) [facility] HospitalCLOSTRIDIUM DIFFICILE [id number] 06:39:00 Test Item Value Reference Range Interpretation Comments Clostridioides (Clostridium) Negative Negative difficile (test code = 21820-0) Lab Interpretation (test code = Normal 01088-3) [facility] HospitalBasi Metabolic Panel (NA, K, CL, CO2, GLUCOSE, BUN, CREATININE, CA)2020-02-22 06:26:00 Test Item Value Reference Range Interpretation Comments NA (test code = 135 mmol/L 135-145 0878596832) K (test code = 4.4 mmol/L 3.5-5 7267349410) CL (test code = 106 mmol/L 98-108 9404006231) CO2 TOTAL (test code = 24 mmol/L 23-31 8413391840) AGAP (test code = 2-16 0924946013) BUN (test code = 23 mg/dL 7-23 2321714387) GLUCOSE (test code = 119 mg/dL 70-110 H 3943289071) CREATININE (test code = 0.90 mg/dL 0.5-1.04 3110941572) CALCIUM (test code = 8.7 mg/dL 8.6-10.6 8057982169) eGFR Calculation mL/min/1.73m2 (Non-) (test code = 0916318738) eGFR Calculation mL/min/1.73m2 () (test code = 0496253375) KIM (test code = KIM) Association of Glomerular Filtration Rate (GFR) and Staging of Kidney Disease* + --+ --+ ------+| GFR (mL/min/1.73 m2) ?| With Kidney Damage ?| ?Without Kidney Damage+ --------+ --------+ +| ?>90 ?| ?Stage one ?| ? Normal ?+ ---+ ---+ -------+| ?60-89 ?| ?Stage two ?| ? Decreased GFR ? + --+ --+ ------+| ?30-59 ?| ?Stage three ?| ? Stage three ? + --+ --+ ------+| ?15-29 ?| ?Stage four ? | ? Stage four ?+ ---+ ---+ -------+| ?<15 (or dialysis) ? ?| ?Stage five ? | ? Stage five ?+ ---+ ---+ -------+ *Each stage assumes the associated GFR level has been in effect for at least three months. ?Stages 1 to 5, with or without kidney disease, indicate chronic kidney disease. Notes: Determination of stages one and two (with eGFR >59mL/min/1.73 m2) requires estimation of kidney damage for at least three months as defined by structural or functional abnormalities of the kidney, manifested by either:Pathological abnormalities or Markers of kidney damage (including abnormalities in the composition of the blood or urine or abnormalities in imaging tests). Lab Interpretation Abnormal (test code = 69467-1) [facility] [id number] 06:24:00 Test Item Value Reference Range Interpretation Comments TROPONIN I (test 0.033 ng/mL See_Comment [Automated code = 9235713517) message] The system which generated this result transmitted reference range : <=0.034. The reference range was not used to interpret this result as normal/abnormal . KIM (test code = Equal or Less than KIM) 0.034 ng/ml---Normal ?Note: Cardiac troponin begins to rise 3-4 hours after the onset of ischemia. Repeat in 4-6 hours if the sample was drawn within 3-4 hours of the onset of the symptom and found normal. Between 0.035 and 0.120 ng/mL--- Borderline. Questionable myocardial injury or necrosis ? ?Note: Serial measurement may be necessary to confirm or exclude the diagnosis of myocardial injury or necrosis; Clinical correlation (symptoms, EKGs, imaging studies, and others) required; Repeat in 4-6 hours if clinically indicated. ? Equal or Higher than 0.121 ng/mL---Abnormal. Myocardial Injury or Necrosis Likely ? Biotin has been reported to cause a negative bias, interpret results relative to patient's use of biotin. ? Lab Interpretation Normal (test code = 03307-2) [facility] [id number] 06:23:00 Test Item Value Reference Range Interpretation Comments TROPONIN I (test 0.032 ng/mL See_Comment [Automated code = 5750491072) message] The system which generated this result transmitted reference range : <=0.034. The reference range was not used to interpret this result as normal/abnormal . KIM (test code = Equal or Less than KIM) 0.034 ng/ml---Normal ?Note: Cardiac troponin begins to rise 3-4 hours after the onset of ischemia. Repeat in 4-6 hours if the sample was drawn within 3-4 hours of the onset of the symptom and found normal. Between 0.035 and 0.120 ng/mL--- Borderline. Questionable myocardial injury or necrosis ? ?Note: Serial measurement may be necessary to confirm or exclude the diagnosis of myocardial injury or necrosis; Clinical correlation (symptoms, EKGs, imaging studies, and others) required; Repeat in 4-6 hours if clinically indicated. ? Equal or Higher than 0.121 ng/mL---Abnormal. Myocardial Injury or Necrosis Likely ? Biotin has been reported to cause a negative bias, interpret results relative to patient's use of biotin. ? Lab Interpretation Normal (test code = 64580-1) [facility]URINALYSIS2020-07-30 05:49:00 Test Item Value Reference Range Interpretation Comments APPEARANCE (test code = Clear Clear 6921454395) COLOR (test code = Straw Yellow A 4008153315) PH (test code = 4.8-8.0 2904152229) SP GRAVITY (test code = 1.003-1.030 6271195200) GLU U QUAL (test code = Normal Normal 5237402859) BLOOD (test code = 1+ Negative A 8985862039) KETONES (test code = Negative Negative 3123320373) PROTEIN (test code = Negative Negative 2887-8) UROBILIN (test code = Normal Normal 7747001759) BILIRUBIN (test code = Negative Negative 2007092460) NITRITE (test code = Negative Negative 2079519116) LEUK NASRIN (test code = Negative Negative 1088189765) RBC/HPF (test code = See_Comment [Autom ated message] 5555651791) The system [employer] generated this result transmitted ref erence range: 0 - 3 HP F. The reference range was not used to int erpret this result as normal/abnormal . WBC/HPF (test code = <1 See_Comment [Autom ated message] 0445691855) The system [employer] generated this result transmitted ref erence range: 0 - 5 HP F. The reference range was not used to int erpret this result as normal/abnormal . BACTERIA (test code = Negative Negative 8333580456) MUCOUS (test code = Slight Negative LPF A 6395697196) SQ EPITH (test code = <1 HPF 8031853511) Lab Interpretation (test Abnormal code = 20025-7) [facility] with [id number] 05:33:00 Test Item Value Reference Range Interpretation Comments WBC (test code = See_Comment H [Automated 6690-2) message] The sy stem which generated this result transmitted reference range : 4.30 - 11.10 10*3/?L. The reference range was not used to interpret this result as normal/abnormal . RBC (test code = See_Comment [Automated 789-8) message] The sy stem which generated this result transmitted reference range : 3.93 - 5.25 10*6/?L. The reference range was not used to interpret this result as normal/abnormal . HGB (test code = 12.9 g/dL 11.6-15 718-7) HCT (test code = 40.6 % 35.7-45.2 4544-3) MCV (test code = 95.5 fL 80.6-95.5 787-2) MCH (test code = 30.4 pg 25.9-32.8 785-6) MCHC (test code = 31.8 g/dL 31.6-35.1 786-4) RDW-SD (test code = 48.6 fL 39-49.9 20222-3) RDW-CV (test code = 13.9 % 12-15.5 788-0) PLT (test code = See_Comment [Automated 777-3) message] The sy stem which generated this result transmitted reference range : 166 - 358 10*3/ ?L. The reference r lucas was not used to interpret this result as normal/abnormal . MPV (test code = 10.2 fL 9.5-12.9 63553-6) NRBC/100 WBC (test See_Comment [Automat ed code = 8418661941) message] The system which generated this result transmitted reference range : 0.0 - 10.0 /100 WBCs. The refer ence range was not u sed to interpret th is result as normal/abnormal . NRBC x10^3 (test code <0.01 See_Comment [Auto mated = 0528333349) message] The s ystem which generated this result transmitted reference range : 10*3/?L. The reference range was not used to interpret this result as normal/abnormal . GRAN MAT (NEUT) % 58.2 % (test code = 770-8) IMM GRAN % (test code 0.70 % = 4880262648) LYMPH % (test code = 32.2 % 736-9) MONO % (test code = 7.3 % 5905-5) EOS % (test code = 1.2 % 713-8) BASO % (test code = 0.4 % 706-2) GRAN MAT x10^3(ANC) 6.62 10*3/uL 1.88-7.09 (test code = 4808337612) IMM GRAN x10^3 (test 0.08 10*3/uL 0-0.06 H code = 3145695963) LYMPH x10^3 (test code 3.66 10*3/uL 1.32-3.29 H = 731-0) MONO x10^3 (test code 0.83 10*3/uL 0.33-0.92 = 742-7) EOS x10^3 (test code = 0.14 10*3/uL 0.03-0.39 711-2) BASO x10^3 (test code 0.04 10*3/uL 0.01-0.07 = 704-7) Lab Interpretation Abnormal (test code = 82794-9) [facility] Test Item Value Reference Range Interpretation Comments MAGNESIUM (test code = 2305182018) 2.1 mg/dL 1.7-2.4 Lab Interpretation (test code = Normal 17822-1) [facility]PHOSPHORUS2020-07-30 04:08:00 Test Item Value Reference Range Interpretation Comments PHOSPHORUS (test code = 2329873781) 3.6 mg/dL 2.5-5 Lab Interpretation (test code = Normal 57928-6) [facility] HospitalFERRITIN [id number] 01:37:00 Test Item Value Reference Range Interpretation Comments FERRITIN (test code = 36.4 ng/mL 11-264 2184668182) KIM (test code = KIM) Biotin has been reported to cause a negative bias, interpret results relative to patient's use of biotin. Lab Interpretation (test Normal code = 44730-3) [facility] HospitalLipid Panel (Total Cholesterol, Triglycerides, HDL)2020-02-21 23:53:00 Test Item Value Reference Range Interpretation Comments CHOL (test code = 200 mg/dL 120-200 9312341609) HDL (test code = 48 mg/dL >50 L 5348669292) HDLC RATIO (test code = See_Comment [Au tomated message] 7646049450) The system [employer] generated this result transmit leann reference range : <=4.5. The refe rence range was not u sed to interpret th is result as normal/abnormal . TRIG (test code = 101 mg/dL 30-170 5368966045) LDL CHOL (test code = 132 mg/dL See_Comment [Auto mated message] 95470-6) The system [employer] generated this result transmit leann reference range : <=160. The refe rence range was not u sed to interpret th is result as normal/abnormal . VLDL (test code = 20 mg/dL 5-60 9378456944) Lab Interpretation (test Abnormal code = 36336-1) [facility] HospitalTROPONIN [id number] 17:31:00 Test Item Value Reference Range Interpretation Comments TROPONIN I (test 0.035 ng/mL See_Comment H [Automated code = 3696568390) message] The system which generated this result transmitted reference range : <=0.034. The reference range was not used to interpret this result as normal/abnormal . KIM (test code = Equal or Less than KIM) 0.034 ng/ml---Normal ?Note: Cardiac troponin begins to rise 3-4 hours after the onset of ischemia. Repeat in 4-6 hours if the sample was drawn within 3-4 hours of the onset of the symptom and found normal. Between 0.035 and 0.120 ng/mL--- Borderline. Questionable myocardial injury or necrosis ? ?Note: Serial measurement may be necessary to confirm or exclude the diagnosis of myocardial injury or necrosis; Clinical correlation (symptoms, EKGs, imaging studies, and others) required; Repeat in 4-6 hours if clinically indicated. ? Equal or Higher than 0.121 ng/mL---Abnormal. Myocardial Injury or Necrosis Likely ? Biotin has been reported to cause a negative bias, interpret results relative to patient's use of biotin. ? Lab Interpretation Abnormal (test code = 09845-3) [facility] HospitalCOMP. METABOLIC PANEL (35568)2020-02-21 17:21:00 Test Item Value Reference Range Interpretation Comments NA (test code = 137 mmol/L 135-145 6024289246) K (test code = 4.6 mmol/L 3.5-5 3510081429) CL (test code = 111 mmol/L 98-108 H 0936908273) CO2 TOTAL (test code = 22 mmol/L 23-31 L 2190447023) AGAP (test code = 2-16 4187039907) BUN (test code = 25 mg/dL 7-23 H 9967104589) GLUCOSE (test code = 124 mg/dL 70-110 H 8853625589) CREATININE (test code = 0.86 mg/dL 0.5-1.04 9933118024) TOTAL BILI (test code = 0.6 mg/dL 0.1-1.8 6851277473) CALCIUM (test code = 8.1 mg/dL 8.6-10.6 L 6268691397) T PROTEIN (test code = 5.8 g/dL 6.3-8.2 L 6425991548) ALBUMIN (test code = 3.2 g/dL 3.5-5 L 3402810682) ALK PHOS (test code = 103 U/L 34-122 5804099997) ALTv (test code = 33 U/L 5-35 1742-6) AST(SGOT) (test code = 27 U/L 13-40 6717234759) eGFR Calculation mL/min/1.73m2 (Non-) (test code = 6358674121) eGFR Calculation mL/min/1.73m2 () (test code = 8856623994) KIM (test code = KIM) Association of Glomerular Filtration Rate (GFR) and Staging of Kidney Disease* + --+ --+ ------+| GFR (mL/min/1.73 m2) ?| With Kidney Damage ?| ?Without Kidney Damage+ --------+ --------+ +| ?>90 ?| ?Stage one ?| ? Normal ?+ ---+ ---+ -------+| ?60-89 ?| ?Stage two ?| ? Decreased GFR ? + --+ --+ ------+| ?30-59 ?| ?Stage three ?| ? Stage three ? + --+ --+ ------+| ?15-29 ?| ?Stage four ? | ? Stage four ?+ ---+ ---+ -------+| ?<15 (or dialysis) ? ?| ?Stage five ? | ? Stage five ?+ ---+ ---+ -------+ *Each stage assumes the associated GFR level has been in effect for at least three months. ?Stages 1 to 5, with or without kidney disease, indicate chronic kidney disease. Notes: Determination of stages one and two (with eGFR >59mL/min/1.73 m2) requires estimation of kidney damage for at least three months as defined by structural or functional abnormalities of the kidney, manifested by either:Pathological abnormalities or Markers of kidney damage (including abnormalities in the composition of the blood or urine or abnormalities in imaging tests). Lab Interpretation Abnormal (test code = 18911-0) [facility] [id number] 17:20:00 Test Item Value Reference Range Interpretation Comments LIPASE (test code = 8395347992) 190 U/L 0-220 Lab Interpretation (test code = Normal 28340-8) [facility] HospitalLactic Acid Whole [id number] 17:06:00 Test Item Value Reference Range Interpretation Comments LACTIC ACID (test code = 1.18 mmol/L 0.3-2.6 8423358168) Lab Interpretation (test code = Normal 40583-1) [facility] HospitalCOVID-19 (ID NOW RAPID TESTING)2020-02-21 16:01:00 Test Item Value Reference Range Interpretation Comments SARS-CoV-2 Rapid ID NOW Not Detected Not Detected (test code = 43899-2) KIM (test code = KIM) ID NOW COVID-19 Assay is an isothermal nucleic acid amplification test intended for the qualitative detection of nucleic acid from SARS-CoV-2 viral RNA in nasopharyngeal (DIRECTOR OF [employer]OCATIONAL TRAINING) specimens. It is used under Emergency Use Authorization (EUA) by FDA. The limit of detection (LOD) of the assay is 125 Genome Equivalents/mL. A positive result is indicative of the presence of SARS-CoV-2 RNA. ?Clinical correlation with patient history and other diagnostic information is necessary to determine patient infection status. A negative (Not Detected) result does not preclude SARS-CoV-2 infection. In patients with clinical symptoms and other tests that are consistent with SARS-CoV-2 infection, negative results should be treated as presumptive negative and a new specimen should be tested with alternative PCR molecular test. Invalid: Please collect a new specimen for repeat patient testing if clinically indicated. Lab Interpretation Normal (test code = 29706-1) [facility] HospitalXR CHEST 1 [id number] 15:51:41HISTORY: Shortness of breath. TECHNIQUE: Portable AP erect view of the chest is obtained. Comparisonmadewith 02/14/2020 study. FINDINGS: No acute pneumonia. No pneumothorax or pleural effusion orpulmonary congestion detected. Cardiac size is within normal limits. Mildthoracolumbar scoliosis is noted. Possible metallic titanium anchors in theleft upper abdomen and cholecystectomy clips in the right upper abdomen. CONCLUSIONS: No signs of acute cardiopulmonary disease.[facility], Radiant Results Inft User -02/21/2020 11:01 AM CDTHISTORY: Shortness of breath.TECHNIQUE: Portable AP erect view of the chest is obtained. Comparison madewith 02/14/2020 study.FINDINGS: No acute pneumonia. No pneumothorax or pleur al effusion orpulmonary congestion detected. Cardiac size is within normal limits. Mildthoracolumbarscoliosis is noted. Possible metallic titanium anchors in theleft upper abdomen and cholecystectomy clips in the right upper abdomen.CONCLUSIONS: No signs of acute cardiopulmonary disease.[facility] WITH [id number] 15:41:00 Test Item Value Reference Range Interpretation Comments WBC (test code = See_Comment H [Automated 6690-2) message] The sy stem which generated this result transmitted reference range : 4.30 - 11.10 10*3/?L. The reference range was not used to interpret this result as normal/abnormal . RBC (test code = See_Comment [Automated 789-8) message] The sy stem which generated this result transmitted reference range : 3.93 - 5.25 10*6/?L. The reference range was not used to interpret this result as normal/abnormal . HGB (test code = 15.5 g/dL 11.6-15 H 718-7) HCT (test code = 47.7 % 35.7-45.2 H 4544-3) MCV (test code = 93.3 fL 80.6-95.5 787-2) MCH (test code = 30.3 pg 25.9-32.8 785-6) MCHC (test code = 32.5 g/dL 31.6-35.1 786-4) RDW-SD (test code = 47.2 fL 39-49.9 31814-1) RDW-CV (test code = 14.1 % 12-15.5 788-0) PLT (test code = See_Comment [Automated 777-3) message] The sy stem which generated this result transmitted reference range : 166 - 358 10*3/ ?L. The reference r lucas was not used to interpret this result as normal/abnormal . MPV (test code = 10.7 fL 9.5-12.9 36437-9) NRBC/100 WBC (test See_Comment [Automat ed code = 0224652584) message] The system which generated this result transmitted reference range : 0.0 - 10.0 /100 WBCs. The refer ence range was not u sed to interpret th is result as normal/abnormal . NRBC x10^3 (test code <0.01 See_Comment [Auto mated = 6974745850) message] The s ystem which generated this result transmitted reference range : 10*3/?L. The reference range was not used to interpret this result as normal/abnormal . GRAN MAT (NEUT) % 65.3 % (test code = 770-8) IMM GRAN % (test code 1.20 % = 8290449900) LYMPH % (test code = 23.9 % 736-9) MONO % (test code = 7.3 % 5905-5) EOS % (test code = 1.8 % 713-8) BASO % (test code = 0.5 % 706-2) GRAN MAT x10^3(ANC) 7.63 10*3/uL 1.88-7.09 H (test code = 8582055603) IMM GRAN x10^3 (test 0.14 10*3/uL 0-0.06 H code = 9005080562) LYMPH x10^3 (test code 2.79 10*3/uL 1.32-3.29 = 731-0) MONO x10^3 (test code 0.85 10*3/uL 0.33-0.92 = 742-7) EOS x10^3 (test code = 0.21 10*3/uL 0.03-0.39 711-2) BASO x10^3 (test code 0.06 10*3/uL 0.01-0.07 = 704-7) Lab Interpretation Abnormal (test code = 23285-2) [facility]THY[facility]ULATING [id number] 23:07:00 Test Item Value Reference Range Interpretation Comments TSH (test code = See_Comment [Automated message] 4008936767) The system [employer] generated this result transmitted ref erence range: 0.45 - 4 .70 mIU/L. The refe rence range was not u sed to interpret this result as normal/abnor mal. Lab Interpretation (test Normal code = 50537-7) [facility] HospitalXR CHEST 1 [id number] 22:32:37CHEST ONE VIEW HISTORY: ?Chest pain TECHNIQUE: ?AP view of the chest is obtained. COMPARISON: 07/14/2019 FINDINGS: Elevation of the left hemidiaphragm is seen. The lungs are clear. No focal consolidation is seen. Heart size is normal. No pleural effusion or pneumothorax is identified. A hiatal hernia is noted. Scoliosis of the thoracic spine is seen with convexity to the right. CONCLUSIONS: No acute c ardiopulmonary disease. [facility], Radiant Results Inft User - 02/14/2020 5:33 PM CDTCHEST ONE VIEWHISTORY: Chest painTECHNIQUE: AP view of the chest is obtained.COMPARISON: 07/14/2019FINDINGS:Elevation of the left hemidiaphragm is seen.The lungs are clear. No focal consolidation is seen.Heart size is normal. No pleural effusion or pneumothorax is identified.A hiatal hernia is noted.Scoliosis of the thoracic spine is seen with convexity to the right.CONCLUSIONS: No acute cardiopulmonary disease.[facility] HospitalLactic Acid Whole [id number] 22:30:00 Test Item Value Reference Range Interpretation Comments LACTIC ACID (test code = 1.38 mmol/L 7799412797) [facility] HospitalURINALYSIS2020-07-22 22:04:00 Test Item Value Reference Range Interpretation Comments APPEARANCE (test code = Clear Clear 0064047366) COLOR (test code = Yellow Yellow 1715707449) PH (test code = 4.8-8.0 4064081866) SP GRAVITY (test code = 1.003-1.030 7532134754) GLU U QUAL (test code = Normal Normal 9669440223) BLOOD (test code = 1+ Negative A 0962617971) KETONES (test code = 5 mg/dL Negative A 6859447565) PROTEIN (test code = Negative Negative 2887-8) UROBILIN (test code = Normal Normal 5747461773) BILIRUBIN (test code = Negative Negative 8418165534) NITRITE (test code = Negative Negative 3787200212) LEUK NASRIN (test code = Negative Negative 1966676058) RBC/HPF (test code = See_Comment [Autom ated message] 5939014345) The system [employer] generated this result transmitted ref erence range: 0 - 3 HP F. The reference range was not used to int erpret this result as normal/abnormal . WBC/HPF (test code = <1 See_Comment [Autom ated message] 7158283472) The system [employer] generated this result transmitted ref erence range: 0 - 5 HP F. The reference range was not used to int erpret this result as normal/abnormal . BACTERIA (test code = Negative Negative 6526482325) MUCOUS (test code = Slight Negative LPF A 9016948512) SQ EPITH (test code = HPF 3453601264) HYAL CAST (test code = See_Comment H [Aut omated message] 0033063797) The system [employer] generated this result transmitted ref erence range: <=2 LPF. The reference range was not used to int erpret this result as normal/abnormal . Lab Interpretation (test Abnormal code = 68562-7) [facility] HospitalD-[id number] 21:43:00 Test Item Value Reference Interpretation Comments Range D-DIMER (test code = See_Comment H [Autom ated 2817496525) message] The system which generated this result transmitted reference range : <0.41 ?g/mL (FEU). The reference range was not used to interpret this result as normal/abnormal . KIM (test code = This test may be KIM) used in conjunction with a clinical pretest probability (PTP) assessment model to exclude venous thromboembolism (VTE) in patients suspected of deep venous thrombosis (DVT) and pulmonary embolism (PE) A D-Dimer value less than 0.50 ?g/ml (FEU) has a negative predicative value of 96 to 100% (95% CI)and 97 to 100% (95% CI) as an aid in the diagnosis of deep vein thrombosis (DVT) and pulmonary embolism when there is low or moderate pretest probability of PE or DVT. D-Dimer values are expressed in initial fibrinogen equivalent units (FEU)" The assay results should be used with other information, including the clinical context, in forming a diagnosis. Lab Interpretation Abnormal (test code = 51632-3) [facility] HospitalTROPONIN [id number] 21:31:00 Test Item Value Reference Range Interpretation Comments TROPONIN I (test 0.034 ng/mL See_Comment [Automated code = 7029951518) message] The system which generated this result transmitted reference range : <=0.034. The reference range was not used to interpret this result as normal/abnormal . KIM (test code = Equal or Less than KIM) 0.034 ng/ml---Normal ?Note: Cardiac troponin begins to rise 3-4 hours after the onset of ischemia. Repeat in 4-6 hours if the sample was drawn within 3-4 hours of the onset of the symptom and found normal. Between 0.035 and 0.120 ng/mL--- Borderline. Questionable myocardial injury or necrosis ? ?Note: Serial measurement may be necessary to confirm or exclude the diagnosis of myocardial injury or necrosis; Clinical correlation (symptoms, EKGs, imaging studies, and others) required; Repeat in 4-6 hours if clinically indicated. ? Equal or Higher than 0.121 ng/mL---Abnormal. Myocardial Injury or Necrosis Likely ? Biotin has been reported to cause a negative bias, interpret results relative to patient's use of biotin. ? Lab Interpretation Normal (test code = 80748-6) [facility]. METABOLIC PANEL (70743)2020-02-14 21:19:00 Test Item Value Reference Range Interpretation Comments NA (test code = 138 mmol/L 135-145 7206989279) K (test code = 4.8 mmol/L 3.5-5 6335367365) CL (test code = 105 mmol/L 98-108 0693770094) CO2 TOTAL (test code = 22 mmol/L 23-31 L 0953680373) AGAP (test code = 2-16 1567644979) BUN (test code = 25 mg/dL 7-23 H 9084310049) GLUCOSE (test code = 125 mg/dL 70-110 H 0147225939) CREATININE (test code = 0.90 mg/dL 0.5-1.04 0189366630) TOTAL BILI (test code = 0.9 mg/dL 0.1-1.5 7784102640) CALCIUM (test code = 9.9 mg/dL 8.6-10.6 9084691885) T PROTEIN (test code = 8.0 g/dL 6.3-8.2 7158173907) ALBUMIN (test code = 4.5 g/dL 3.5-5 9506722897) ALK PHOS (test code = 109 U/L 34-122 0374356357) ALTv (test code = 37 U/L 5-35 H 1742-6) AST(SGOT) (test code = 40 U/L 13 3226111706) eGFR Calculation mL/min/1.73m2 (Non-) (test code = 4680442430) eGFR Calculation mL/min/1.73m2 () (test code = 1787797270) KIM (test code = KIM) Association of Glomerular Filtration Rate (GFR) and Staging of Kidney Disease* + --+ --+ ------+| GFR (mL/min/1.73 m2) ?| With Kidney Damage ?| ?Without Kidney Damage+ --------+ --------+ +| ?>90 ?| ?Stage one ?| ? Normal ?+ ---+ ---+ -------+| ?60-89 ?| ?Stage two ?| ? Decreased GFR ? + --+ --+ ------+| ?30-59 ?| ?Stage three ?| ? Stage three ? + --+ --+ ------+| ?15-29 ?| ?Stage four ? | ? Stage four ?+ ---+ ---+ -------+| ?<15 (or dialysis) ? ?| ?Stage five ? | ? Stage five ?+ ---+ ---+ -------+ *Each stage assumes the associated GFR level has been in effect for at least three months. ?Stages 1 to 5, with or without kidney disease, indicate chronic kidney disease. Notes: Determination of stages one and two (with eGFR >59mL/min/1.73 m2) requires estimation of kidney damage for at least three months as defined by structural or functional abnormalities of the kidney, manifested by either:Pathological abnormalities or Markers of kidney damage (including abnormalities in the composition of the blood or urine or abnormalities in imaging tests). Lab Interpretation Abnormal (test code = 68172-8) [facility] HospitalLIPASE, [id number] 21:19:00 Test Item Value Reference Range Interpretation Comments LIPASE (test code = 3832400068) 269 U/L 0-220 H Lab Interpretation (test code = Abnormal 72527-5) [facility] HospitalaPTT2020-07-22 21:15:00 Test Item Value Reference Range Interpretation Comments APTT Patient (test See_Comment L [Automat ed code = 3173-2) message] The system which generated this result transmitted reference range : 23 - 38 Seconds . The reference range was not used to interpr et this result as normal/abnormal . KIM (test code = KIM) The [facility] patient population mean normal value for aPTT is 30 seconds. Lab Interpretation Abnormal (test code = 94575-5) [facility] HospitalPROTHROMBIN TIME / [id number] 21:13:00 Test Item Value Reference Range Interpretation Comments PROTIME PATIENT (test See_Comment L [Auto mated message] code = 5964-2) The system wh ich generated this result transmitted ref erence range: 12.0 - 1 4.7 Seconds. The reference range was not used to int erpret this result as normal/abnormal . INR (test code = 6301-6) Nor mal INR <1.1; Warfarin Therap eutic range 2.0 to 3. 0 or 2.5 to 3.5, dep ending upon the indica tions. Lab Interpretation (test Abnormal code = 01348-9) [facility] HospitalCBC WITH [id number] 21:11:00 Test Item Value Reference Range Interpretation Comments WBC (test code = See_Comment H [Automated 6690-2) message] The system which generated this result transmit leann reference range : 4.30 - 11.10 10*3/?L. The reference range was not used to interpret this result as normal/abnormal . RBC (test code = See_Comment H [Automated 789-8) message] The system which generated this result transmit leann reference range : 3.93 - 5.25 10*6/?L. The reference range was not used to interpret this result as normal/abnormal . HGB (test code = 16.3 g/dL 11.6-15 H 718-7) HCT (test code = 49.2 % 35.7-45.2 H 4544-3) MCV (test code = 91.8 fL 80.6-95.5 787-2) MCH (test code = 30.4 pg 25.9-32.8 785-6) MCHC (test code = 33.1 g/dL 31.6-35.1 786-4) RDW-SD (test code = 45.9 fL 39-49.9 40503-1) RDW-CV (test code = 13.6 % 12-15.5 788-0) PLT (test code = See_Comment [Automated 777-3) message] The system which generated this result transmit leann reference range : 166 - 358 10*3/ ?L. The reference range was not u sed to interpret th is result as normal/abnormal . MPV (test code = 10.1 fL 9.5-12.9 16375-0) NRBC/100 WBC (test See_Comment [Automat ed code = 0979707558) message] The system which generated this result transmit leann reference range : 0.0 - 10.0 /100 WBCs. The reference range was not used to interpret this result as normal/abnormal . NRBC x10^3 (test code <0.01 See_Comment [Auto mated = 2627242439) message] The system which generated this result transmit leann reference range : 10*3/?L. The reference range was not used to interpret this result as normal/abnormal . GRAN MAT (NEUT) % 85.0 % (test code = 770-8) IMM GRAN % (test code 1.40 % = 2064096697) LYMPH % (test code = 10.1 % 736-9) MONO % (test code = 2.9 % 5905-5) EOS % (test code = 0.3 % 713-8) BASO % (test code = 0.3 % 706-2) GRAN MAT x10^3(ANC) 14.85 10*3/uL 1.88-7.09 H (test code = 3957589743) IMM GRAN x10^3 (test 0.24 10*3/uL 0-0.06 H code = 7159710330) LYMPH x10^3 (test code 1.77 10*3/uL 1.32-3.29 = 731-0) MONO x10^3 (test code 0.51 10*3/uL 0.33-0.92 = 742-7) EOS x10^3 (test code = 0.06 10*3/uL 0.03-0.39 711-2) BASO x10^3 (test code 0.06 10*3/uL 0.01-0.07 = 704-7) Lab Interpretation Abnormal (test code = 96885-7) [facility] HospitalCT ABDOMEN PELVIS W [id number] 20:16:21Impression: 1. ?Findings concerning for cystitis. 2. ?Diverticulosis with no evidence of diverticulitis. Prominentintrahepatic and extra hepatic bile ducts, likely secondary tocholecystectomy. 3. ?Two sites of scarring seen in the anterior abdominal wall, likely fromprior laparoscopic surgery. Postsurgical changes are seen at the GEjunction. Exam: CT ABDOMEN PELVIS W CONTRAST Clinical History: Abd infection (incl peritonitis) Comparison: None Findings: The visualized lung bases show minimal linear atelectasis. There is noevidence of pleural or pericardial effusion. No focal lesions are seen in the liver. Prominent intrahepatic and extrahepatic biliary ductal dilatation, likely secondary to priorcholecystectomy. Spleen is normal in size and shows a hypodensity measuringapproximately 0.9 cm (2:20),likely a cyst. The pancreas, adrenals, and thekidneys appear normal. No evidence of free fluid, air,or lymphadenopathy is seen in the abdomenand pelvis. No evidence of dilated bowel loops. Sigmoid diverticulosis with no evidenceof diverticulitis. A normal appendix is seen in the right lower quadrant.Postsurgical changes are seen at the GE junction. Minimal mural thickening of the urinary bladder. Nofocal lesions are seenin the uterus. No evidence of adnexal masses. A mural prominence seenbilaterally involving the lower ureters is concerning for infection.(2:102). Scattered atherosclerotic calcifications and noncalcified plaques are seenin the abdominal aorta and its branches. No suspicious bone lesions are seen. 2 sites of nonspecific fat strandingare seen in the anterior abdominal wall likely from a prior laparoscopicsurgery (2:52 and 66). [facility], Radiant Results Inft User - 01/03/2020 3:17 PM CDTExam: CT ABDOMEN PELVIS W CONTRASTClinical History: Abd infection (incl peritonitis) Comparison: NoneFindings: The visualized lung bases show minimal linear atelectasis. There is noevidence of pleural or pericardial effusion.No focal lesions are seen in the liver. Prominent intrahepatic and extrahepatic biliary ductal dilatation, likely secondary to priorcholecystectomy. Spleen is normal in size and shows a hypodensity measuringapproximately 0.9 cm (2:20), likely a cyst. The pancreas, adrenals, and thekidneys appear normal.No evidence of free fluid, air, or lymphadenopathy is seen in the abdomenand pelvis.No evidence of dilated bowel loops. Sigmoid diverticulosis with no evidenceof diverticulitis. A normal appendix is seen in the right lower quadrant.Postsurgical changes are seen at the GE junction. Minimal mural thickening of the urinary bladder. No focal lesions are seenin the uterus. No evidence of adnexal masses. A mural prominence seenbilaterally involving the lower ureters is concerningfor infection.(2:102).Scattered atherosclerotic calcifications and noncalcified plaques are seenin the abdominal aorta and its branches. No suspicious bone lesions are seen. 2 sites of nonspecific fat strandingare seen in the anterior abdominal wall likely from a prior laparoscopicsurgery (2:52 and 66).IMPRESSIONImpression: 1. Findings concerning for cystitis.2. Diverticulosis with no evidence of diverticulitis. Prominentintrahepatic and extra hepatic bile ducts, likely secondary tocholecystectomy.3. Two sites of scarring seen in the anterior abdominal wall, likely fromprior laparoscopic surgery. Postsurgical changes are seen at the GEjunction.[facility] HospitalUrinalysis2020-06-10 18:27:00 Test Item Value Reference Range Interpretation Comments APPEARANCE (test code = Clear Clear 6870493076) COLOR (test code = Belkis Yellow A 1585393869) PH (test code = 4.8-8.0 5914450282) SP GRAVITY (test code = 1.003-1.030 8723005732) GLU U QUAL (test code = Normal Normal 8034157644) BLOOD (test code = 1+ Negative A 0047592984) KETONES (test code = Negative Negative 0642278023) PROTEIN (test code = Negative Negative 2887-8) UROBILIN (test code = Normal Normal 6383196630) BILIRUBIN (test code = Negative Negative 5484383837) NITRITE (test code = Negative Negative 9959600165) LEUK NASRIN (test code = Negative Negative 8912924183) RBC/HPF (test code = See_Comment [Autom ated message] 6484000537) The system [employer] generated this result transmitted ref erence range: 0 - 3 HP F. The reference range was not used to int erpret this result as normal/abnormal . WBC/HPF (test code = <1 See_Comment [Autom ated message] 0327228225) The system [employer] generated this result transmitted ref erence range: 0 - 5 HP F. The reference range was not used to int erpret this result as normal/abnormal . BACTERIA (test code = Few Negative A 1546705591) MUCOUS (test code = Moderate Negative LPF A 1019300354) SQ EPITH (test code = HPF 2401733557) HYAL CAST (test code = See_Comment H [Aut omated message] 2390698640) The system FST21 h generated this result transmitted ref erence range: <=2 LPF. The reference range was not used to int erpret this result as normal/abnormal . Lab Interpretation (test Abnormal code = 22720-6) [facility] HospitalProthrombin Time (PT) / [id number] 18:21:00 Test Item Value Reference Range Interpretation Comments PROTIME PATIENT (test See_Comment [Auto mated message] code = 5964-2) The system ich generated this result transmitted ref erence range: 12.0 - 1 4.7 Seconds. The re ference range was not u sed to interpret this result as normal/abnor mal. INR (test code = 6301-6) Nor mal INR <1.1; Warfarin Therap eutic range 2.0 to 3. 0 or 2.5 to 3.5, dep ending upon the indica tions. Lab Interpretation (test Normal code = 05793-3) [facility] HospitalaPTT2020-06-10 18:20:00 Test Item Value Reference Range Interpretation Comments APTT Patient (test See_Comment L [Automat ed code = 3173-2) message] The system which generated this result transmitted reference range : 23 - 38 Seconds . The reference range was not used to interpr et this result as normal/abnormal . KIM (test code = KIM) The [facility] patient population mean normal value for aPTT is 30 seconds. Lab Interpretation Abnormal (test code = 18091-1) [facility] HospitalBasi Metabolic Panel (NA, K, CL, CO2, GLUCOSE, BUN, CREATININE, CA)2020-01-03 18:17:00 Test Item Value Reference Range Interpretation Comments NA (test code = 138 mmol/L 135-145 2109221217) K (test code = 3.9 mmol/L 3.5-5 3867046165) CL (test code = 110 mmol/L 98-108 H 2143779771) CO2 TOTAL (test code = 24 mmol/L 23-31 8165805997) AGAP (test code = 2-16 4008377159) BUN (test code = 12 mg/dL 7-23 0566080362) GLUCOSE (test code = 111 mg/dL 70-110 H 5936977979) CREATININE (test code = 0.72 mg/dL 0.5-1.04 3700934527) CALCIUM (test code = 8.9 mg/dL 8.6-10.6 2854435105) eGFR Calculation mL/min/1.73m2 (Non-) (test code = 0980401114) eGFR Calculation mL/min/1.73m2 () (test code = 4967520777) KIM (test code = KIM) Association of Glomerular Filtration Rate (GFR) and Staging of Kidney Disease* + --+ --+ ------+| GFR (mL/min/1.73 m2) ?| With Kidney Damage ?| ?Without Kidney Damage+ --------+ --------+ +| ?>90 ?| ?Stage one ?| ? Normal ?+ ---+ ---+ -------+| ?60-89 ?| ?Stage two ?| ? Decreased GFR ? + --+ --+ ------+| ?30-59 ?| ?Stage three ?| ? Stage three ? + --+ --+ ------+| ?15-29 ?| ?Stage four ? | ? Stage four ?+ ---+ ---+ -------+| ?<15 (or dialysis) ? ?| ?Stage five ? | ? Stage five ?+ ---+ ---+ -------+ *Each stage assumes the associated GFR level has been in effect for at least three months. ?Stages 1 to 5, with or without kidney disease, indicate chronic kidney disease. Notes: Determination of stages one and two (with eGFR >59mL/min/1.73 m2) requires estimation of kidney damage for at least three months as defined by structural or functional abnormalities of the kidney, manifested by either:Pathological abnormalities or Markers of kidney damage (including abnormalities in the composition of the blood or urine or abnormalities in imaging tests). Lab Interpretation Abnormal (test code = 82343-8) [facility] HospitalHepatic Function Panel (ALB, T.PRO, BILI T, BU/BC, ALT, AST, ALK PHOS)2020-01-03 18:17:00 Test Item Value Reference Range Interpretation Comments TOTAL BILI (test code = 0368861981) 1.1 mg/dL 0.1-1.1 BILI UNCON (test code = 5464057895) 1.2 mg/dL 0.1-1.1 H BILI CONJ (test code = 2125691447) 0.0 mg/dL 0-0.3 T PROTEIN (test code = 7026990587) 6.7 g/dL 6.3-8.2 ALBUMIN (test code = 1449652478) 3.9 g/dL 3.5-5 ALK PHOS (test code = 6870757477) 88 U/L 34-122 ALTv (test code = 1742-6) 26 U/L 5-35 AST(SGOT) (test code = 0176798684) 28 U/L 13-40 Lab Interpretation (test code = Abnormal 36262-1) [facility] HospitalLipase [id number] 18:17:00 Test Item Value Reference Range Interpretation Comments LIPASE (test code = 9029780636) 166 U/L 0-220 Lab Interpretation (test code = Normal 71537-5) [facility] HospitalCBC WITH [id number] 18:07:00 Test Item Value Reference Range Interpretation Comments WBC (test code = See_Comment H [Automated 2748-2) message] The sy stem which generated this result transmitted reference range : 4.30 - 11.10 10*3/?L. The reference range was not used to interpret this result as normal/abnormal . RBC (test code = See_Comment [Automated 340-8) message] The sy stem which generated this result transmitted reference range : 3.93 - 5.25 10*6/?L. The reference range was not used to interpret this result as normal/abnormal . HGB (test code = 13.5 g/dL 11.6-15 718-7) HCT (test code = 41.2 % 35.7-45.2 4544-3) MCV (test code = 91.8 fL 80.6-95.5 787-2) MCH (test code = 30.1 pg 25.9-32.8 785-6) MCHC (test code = 32.8 g/dL 31.6-35.1 786-4) RDW-SD (test code = 46.4 fL 39-49.9 60928-2) RDW-CV (test code = 13.7 % 12-15.5 788-0) PLT (test code = See_Comment [Automated 777-3) message] The sy stem which generated this result transmitted reference range : 166 - 358 10*3/ ?L. The reference r lucas was not used to interpret this result as normal/abnormal . MPV (test code = 9.9 fL 9.5-12.9 61601-7) NRBC/100 WBC (test See_Comment [Automat ed code = 5654974562) message] The system which generated this result transmitted reference range : 0.0 - 10.0 /100 WBCs. The refer ence range was not u sed to interpret th is result as normal/abnormal . NRBC x10^3 (test code <0.01 See_Comment [Auto mated = 9301045169) message] The s ystem which generated this result transmitted reference range : 10*3/?L. The reference range was not used to interpret this result as normal/abnormal . GRAN MAT (NEUT) % 83.1 % (test code = 770-8) IMM GRAN % (test code 0.70 % = 7526947324) LYMPH % (test code = 11.2 % 736-9) MONO % (test code = 3.6 % 5905-5) EOS % (test code = 1.1 % 713-8) BASO % (test code = 0.3 % 706-2) GRAN MAT x10^3(ANC) 9.43 10*3/uL 1.88-7.09 H (test code = 6024503755) IMM GRAN x10^3 (test 0.08 10*3/uL 0-0.06 H code = 0872279923) LYMPH x10^3 (test code 1.27 10*3/uL 1.32-3.29 L = 731-0) MONO x10^3 (test code 0.41 10*3/uL 0.33-0.92 = 742-7) EOS x10^3 (test code = 0.12 10*3/uL 0.03-0.39 711-2) BASO x10^3 (test code 0.03 10*3/uL 0.01-0.07 = 704-7) Lab Interpretation Abnormal (test code = 74345-5) [facility] [id number] 17:34:00 Test Item Value Reference Range Interpretation Comments LACTIC ACID (test code = 1.77 mmol/L 0.3-2.6 0200493571) Lab Interpretation (test code = Normal 39812-1) [facility] (NA, K, CL, CO2, GLUCOSE, BUN, CREATININE, CA)2019-12-06 08:20:00 Test Item Value Reference Range Interpretation Comments NA (test code = 132 mmol/L 135-145 L 1515484748) K (test code = 4.1 mmol/L 3.5-5 8365468412) CL (test code = 102 mmol/L 98-108 1117983291) CO2 TOTAL (test code = 25 mmol/L 23-31 8913787060) AGAP (test code = 2-16 9261580454) BUN (test code = 15 mg/dL 7-23 2377527476) GLUCOSE (test code = 85 mg/dL 70-110 2917339491) CREATININE (test code = 0.84 mg/dL 0.5-1.04 6009383496) CALCIUM (test code = 8.6 mg/dL 8.6-10.6 0689676736) eGFR Calculation mL/min/1.73m2 (Non-) (test code = 9549135051) eGFR Calculation mL/min/1.73m2 () (test code = 4186311945) KIM (test code = KIM) Association of Glomerular Filtration Rate (GFR) and Staging of Kidney Disease* + --+ --+ ------+| GFR (mL/min/1.73 m2) ?| With Kidney Damage ?| ?Without Kidney Damage+ --------+ --------+ +| ?>90 ?| ?Stage one ?| ? Normal ?+ ---+ ---+ -------+| ?60-89 ?| ?Stage two ?| ? Decreased GFR ? + --+ --+ ------+| ?30-59 ?| ?Stage three ?| ? Stage three ? + --+ --+ ------+| ?15-29 ?| ?Stage four ? | ? Stage four ?+ ---+ ---+ -------+| ?<15 (or dialysis) ? ?| ?Stage five ? | ? Stage five ?+ ---+ ---+ -------+ *Each stage assumes the associated GFR level has been in effect for at least three months. ?Stages 1 to 5, with or without kidney disease, indicate chronic kidney disease. Notes: Determination of stages one and two (with eGFR >59mL/min/1.73 m2) requires estimation of kidney damage for at least three months as defined by structural or functional abnormalities of the kidney, manifested by either:Pathological abnormalities or Markers of kidney damage (including abnormalities in the composition of the blood or urine or abnormalities in imaging tests). Lab Interpretation Abnormal (test code = 91661-6) [facility] WITH [id number] 07:56:00 Test Item Value Reference Range Interpretation Comments WBC (test code = See_Comment H [Automated 7782-2) message] The system which generated this result transmit leann reference range : 4.30 - 11.10 10*3/?L. The reference range was not used to interpret this result as normal/abnormal . RBC (test code = See_Comment [Automated 266-8) message] The system which generated this result transmit leann reference range : 3.93 - 5.25 10*6/?L. The reference range was not used to interpret this result as normal/abnormal . HGB (test code = 13.0 g/dL 11.6-15 718-7) HCT (test code = 41.3 % 35.7-45.2 4544-3) MCV (test code = 94.5 fL 80.6-95.5 787-2) MCH (test code = 29.7 pg 25.9-32.8 785-6) MCHC (test code = 31.5 g/dL 31.6-35.1 L 786-4) RDW-SD (test code = 47.1 fL 39-49.9 64164-2) RDW-CV (test code = 13.5 % 12-15.5 788-0) PLT (test code = See_Comment [Automated 777-3) message] The system which generated this result transmit leann reference range : 166 - 358 10*3/ ?L. The reference range was not u sed to interpret th is result as normal/abnormal . MPV (test code = 9.8 fL 9.5-12.9 79012-9) NRBC/100 WBC (test See_Comment [Automat ed code = 4515733511) message] The system which generated this result transmit leann reference range : 0.0 - 10.0 /100 WBCs. The reference range was not used to interpret this result as normal/abnormal . NRBC x10^3 (test code <0.01 See_Comment [Auto mated = 3378286433) message] The system which generated this result transmit leann reference range : 10*3/?L. The reference range was not used to interpret this result as normal/abnormal . GRAN MAT (NEUT) % 77.4 % (test code = 770-8) IMM GRAN % (test code 0.60 % = 2514373889) LYMPH % (test code = 15.0 % 736-9) MONO % (test code = 6.7 % 5905-5) EOS % (test code = 0.2 % 713-8) BASO % (test code = 0.1 % 706-2) GRAN MAT x10^3(ANC) 12.65 10*3/uL 1.88-7.09 H (test code = 8565098930) IMM GRAN x10^3 (test 0.10 10*3/uL 0-0.06 H code = 9589795055) LYMPH x10^3 (test code 2.45 10*3/uL 1.32-3.29 = 731-0) MONO x10^3 (test code 1.10 10*3/uL 0.33-0.92 H = 742-7) EOS x10^3 (test code = 0.04 10*3/uL 0.03-0.39 711-2) BASO x10^3 (test code <0.03 0.01-0.07 = 704-7) Lab Interpretation Abnormal (test code = 17642-0) [facility] Barium Swallow [id number] 23:38:49 Postsurgical changes status post hiatal hernia repair. Distal esophagus at the GE junction opens up to 6 mm in greatest dimensionwith small amount of oral contrast pooling in the distal esophagus. Oralcontrast material slowly clears from distal esophagus into the stomach withtime. However, the 12.5 mm barium pill did not pass into the stomach. Thesemay be related to postoperative edema. Consider repeating the study in afew days to further evaluate. No evidence of extraluminal oral contrast extravasation. Preliminary Report Dictated by Resident: Aristeo Valencia MD., have reviewed this study and agree with theabove report.BARIUM SWALLOW HISTORY: 64-year-old female status post hiatal hernia repair for evaluationof epigastric stricture or contrast leakage TECHNIQUE AND FINDINGS: Limited evaluation because of patient's inability to stand. Hair Blender images demonstrate surgical changesstatus post hiatal hernia repair. The patient was given 30 mL Omnipaque 350 by mouth. ?Fluoroscopy and filmsof the esophagus, and stomach in the AP view and left anterior oblique viewdemonstrate propagation of contrast material through the esophagus withsubsequent pooling of the contrast in the distalesophagus. Contrast in distal esophagus slowly clears over time. Gastroesophagealjunction measures 6mm in greatest diameter. Thin barium was then given to the patient with a similar result aswater-soluble contrast. The 12.5 mm barium tablet was finally administeredto the patient but did not pass intothe stomach despite multiple sips ofwater. No evidence of contrast material extravasation. [facility], Radiant Results Inft User - 12/05/2019 6:39 PM CDTBARIUM SWALLOW HISTORY: 64-year-old female status post hiatal hernia repair for evaluationof epigastric stricture or contrast leakage TECHNIQUE AND FINDINGS: Limited evaluation because of patient's inability to stand.Hair Blender images demonstrate surgical changes status post hiatal hernia repair. The patient was given 30 mL Omnipaque 350 by mouth. Fluoroscopy and filmsof the esophagus, and stomach in the AP view and left anterior oblique viewdemonstrate propagation of contrast material through the esophagus withsubsequent pooling of the contrast in the distal esophagus. Contrast in distal esophagus slowly clears over time. Gastroesophagealjunction measures6 mm in greatest diameter. Thin barium was then given to the patient with a similar result aswater-soluble contrast. The 12.5 mm barium tablet was finally administeredto the patient but did not pass into the stomach despite multiple sips ofwater. No evidence of contrast material extravasation.IMPRESSIO NPostsurgical changes status post hiatal hernia repair. Distal esophagus at the GE junction opens upto 6 mm in greatest dimensionwith small amount of oral contrast pooling in the distal esophagus. Oralcontrast material slowly clears from distal esophagus into the stomach withtime. However, the 12.5 mm barium pill did not pass into the stomach. Thesemay be related to postoperative edema. Consider repeating the study in afew days to further evaluate.No evidence of extraluminal oral contrast extravasation.Preliminary Report Dictated by Resident: Aristeo Ruth MD., have reviewed this study and agree with theabove report.[facility] WITH [id number] 17:22:00 Test Item Value Reference Range Interpretation Comments WBC (test code = See_Comment H [Automated 1790-2) message] The system which generated this result transmit leann reference range : 4.30 - 11.10 10*3/?L. The reference range was not used to interpret this result as normal/abnormal . RBC (test code = See_Comment [Automated 419-8) message] The system which generated this result transmit leann reference range : 3.93 - 5.25 10*6/?L. The reference range was not used to interpret this result as normal/abnormal . HGB (test code = 13.3 g/dL 11.6-15 718-7) HCT (test code = 41.4 % 35.7-45.2 4544-3) MCV (test code = 93.0 fL 80.6-95.5 787-2) MCH (test code = 29.9 pg 25.9-32.8 785-6) MCHC (test code = 32.1 g/dL 31.6-35.1 786-4) RDW-SD (test code = 44.9 fL 39-49.9 13410-1) RDW-CV (test code = 13.2 % 12-15.5 788-0) PLT (test code = See_Comment [Automated 777-3) message] The system which generated this result transmit leann reference range : 166 - 358 10*3/ ?L. The reference range was not u sed to interpret th is result as normal/abnormal . MPV (test code = 9.7 fL 9.5-12.9 71986-4) NRBC/100 WBC (test See_Comment [Automat ed code = 8128499297) message] The system which generated this result transmit leann reference range : 0.0 - 10.0 /100 WBCs. The reference range was not used to interpret this result as normal/abnormal . NRBC x10^3 (test code <0.01 See_Comment [Auto mated = 9580612319) message] The system which generated this result transmit leann reference range : 10*3/?L. The reference range was not used to interpret this result as normal/abnormal . GRAN MAT (NEUT) % 93.0 % (test code = 770-8) IMM GRAN % (test code 1.30 % = 8018913019) LYMPH % (test code = 3.2 % 736-9) MONO % (test code = 2.4 % 5905-5) EOS % (test code = 0.0 % 713-8) BASO % (test code = 0.1 % 706-2) GRAN MAT x10^3(ANC) 19.11 10*3/uL 1.88-7.09 H (test code = 6706435784) IMM GRAN x10^3 (test 0.27 10*3/uL 0-0.06 H code = 2744433642) LYMPH x10^3 (test code 0.65 10*3/uL 1.32-3.29 L = 731-0) MONO x10^3 (test code 0.49 10*3/uL 0.33-0.92 = 742-7) EOS x10^3 (test code = <0.03 0.03-0.39 L 711-2) BASO x10^3 (test code 0.03 10*3/uL 0.01-0.07 = 704-7) Lab Interpretation Abnormal (test code = 88424-9) [facility] Metabolic Panel (NA, K, CL, CO2, GLUCOSE, BUN, CREATININE, CA)2019-12-05 16:11:00 Test Item Value Reference Range Interpretation Comments NA (test code = 135 mmol/L 135-145 2428051319) K (test code = 5.3 mmol/L 3.5-5 H 6616294797) CL (test code = 105 mmol/L 98-108 5904533868) CO2 TOTAL (test code = 24 mmol/L 23-31 3325068464) AGAP (test code = 2-16 0599643745) BUN (test code = 23 mg/dL 7-23 7087154954) GLUCOSE (test code = 204 mg/dL 70-110 H 0697467921) CREATININE (test code = 0.74 mg/dL 0.5-1.04 0125291739) CALCIUM (test code = 8.5 mg/dL 8.6-10.6 L 8374039537) eGFR Calculation mL/min/1.73m2 (Non-) (test code = 6102636812) eGFR Calculation mL/min/1.73m2 () (test code = 3372812125) KIM (test code = KIM) Association of Glomerular Filtration Rate (GFR) and Staging of Kidney Disease* + --+ --+ ------+| GFR (mL/min/1.73 m2) ?| With Kidney Damage ?| ?Without Kidney Damage+ --------+ --------+ +| ?>90 ?| ?Stage one ?| ? Normal ?+ ---+ ---+ -------+| ?60-89 ?| ?Stage two ?| ? Decreased GFR ? + --+ --+ ------+| ?30-59 ?| ?Stage three ?| ? Stage three ? + --+ --+ ------+| ?15-29 ?| ?Stage four ? | ? Stage four ?+ ---+ ---+ -------+| ?<15 (or dialysis) ? ?| ?Stage five ? | ? Stage five ?+ ---+ ---+ -------+ *Each stage assumes the associated GFR level has been in effect for at least three months. ?Stages 1 to 5, with or without kidney disease, indicate chronic kidney disease. Notes: Determination of stages one and two (with eGFR >59mL/min/1.73 m2) requires estimation of kidney damage for at least three months as defined by structural or functional abnormalities of the kidney, manifested by either:Pathological abnormalities or Markers of kidney damage (including abnormalities in the composition of the blood or urine or abnormalities in imaging tests). Lab Interpretation Abnormal (test code = 23483-5) [facility] 16:11:00 Test Item Value Reference Range Interpretation Comments MAGNESIUM (test code = 1353208578) 2.0 mg/dL 1.7-2.4 Lab Interpretation (test code = Normal 94819-1) [facility]osph[facility]2020-05-12 16:11:00 Test Item Value Reference Range Interpretation Comments PHOSPHORUS (test code = 3771516992) 3.2 mg/dL 2.5-5 Lab Interpretation (test code = Normal 69779-9) [facility] HospitalTISSUE [id number] 19:32:00Surgical Pathology Report Case: [id number] Authorizing Provider: Leanna Perez MD Collected: 03/06/2019 0850 Ordering Location: [address] Received: 03/06/2019 1421 Service Pathologist: Radha Fuentes MD Specimens: A) - Duodenum, random bx B) - Stomach, random bx A. DUODENUM, ENDOSCOPIC BIOPSY:- DUODENAL MUCOSA WITH NO PATHOLOGIC ALTERATION- NO FEATURES OF PEPTIC DUODENITIS OR CELIAC DISEASE SEEN- NO GRANULOMAS, DYSPLASIA OR MALIGNANCY NOTEDB. STOMACH, RANDOM, ENDOSCOPIC BIOPSY:- ANTRAL TYPE GASTRIC MUCOSA WITH MILD REACTIVE CHANGES- NO HELICOBACTER PYLORI-LIKE ORGANISMS SEEN ON WARTHIN- STARRY STAIN- NO INTESTINAL METAPLASIA,DYSPLASIA OR MALIGNANCY NOTED Signing Pathologist Direct Phone Line: [phone] signed by Radha Fuentes MD on 03/07/2019 at 7:32 [id number] X 2; [id number] and postop diagnosis: anemia A. Duodenum random biopsy; B. Stomachrandom biopsyA. Received in formalin labeled with the patient's name, accession number and "duodenum" are three irregular pino soft tissue fragments ranging 0.3-0.5 cm which are submitted in toto in A1.B. Received in formalin labeled with the patient's name, accession number and "stomach" are two irregular pino soft tissue fragments measuring 0.5 cm and 0.3 cm which are submitted in toto in B1. CG/pl PERFORMEDThe interpretation of this case included the use of immunohistochemistry or special stains.WARTHIN-STARRYControl Slides Examined: In-house known positive controls were evaluated along with the test tissue. These control slides run alongside of the patients sample show appropriate staining. Internal positive and negative controls when available are evaluated Immunohistochemistry technical testing was performed at [facility], Pathology Laboratory where it was developed and its performance characteristics were determined. It has not been cleared or approved by the U.S. Food and Drug Administration. The FDA has determined that such clearance or approval is not necessary. The test is used for clinical purposes. It should not be regarded as investigational or for research.This laboratory is certified under the Clinical Laboratory Improvement Amendments of 1988 (CLIA-88) as qualified to perform high complexity clinical laboratory testing.COMPREHENSIVE METABOLIC [id number] 07:33:00 Test Item Value Reference Range Interpretation Comments TOTAL PROTEIN 6.3 gm/dL 6.0-8.3 (BEAKER) (test code = 770) ALBUMIN (BEAKER) 3.7 g/dL 3.5-5.0 (test code = 1145) ALKALINE PHOSPHATASE 99 U/L 40-150 (BEAKER) (test code = 346) BILIRUBIN TOTAL 1.1 mg/dL 0.2-1.2 (BEAKER) (test code = 377) SODIUM (BEAKER) (test 143 meq/L 136-145 code = 381) POTASSIUM (BEAKER) 3.7 meq/L 3.5-5.1 (test code = 379) CHLORIDE (BEAKER) 110 meq/L 98-107 H (test code = 382) CO2 (BEAKER) (test 26 meq/L 22-29 code = 355) BLOOD UREA NITROGEN 13 mg/dL 7-21 (BEAKER) (test code = 354) CREATININE (BEAKER) 0.85 mg/dL 0.57-1.25 (test code = 358) GLUCOSE RANDOM 85 mg/dL 70-105 (BEAKER) (test code = 652) CALCIUM (BEAKER) 8.8 mg/dL 8.4-10.2 (test code = 697) AST (SGOT) (BEAKER) 15 U/L 5-34 (test code = 353) ALT (SGPT) (BEAKER) 29 U/L 6-55 (test code = 347) EGFR (BEAKER) (test 68 mL/min/1.73 ESTIMA LEANN GFR IS code = 1092) sq m NOT ACCURATE CREATININE CLEARANCE IN PREDICTING GLOMERULAR FILTRATION RATE . ESTIMATED GFR I S NOT APPLICABLE FOR DIALYSIS PATIEN TS. PROTHROMBIN [id number] 07:23:00 Test Item Value Reference Range Interpretation Comments PROTIME (BEAKER) (test code = 12.7 seconds 11.9-14.2 759) INR (BEAKER) (test code = 370) 1.0 <=5.9 Effective 12/21/2018: PT Reference Range ChangeNew: 11.9-14.2 Previous: 11.7- 14.7RECOMMENDED COUMADIN/WARFARIN INR THERAPY RANGESSTANDARD DOSE: 2.0-3.0 Includes: PROPHYLAXIS for venous thrombosis, systemic embolization; TREATMENT for venous thrombosis and/or pulmonary embolus.HIGH RISK: Target INR is 2.5-3.5 for patients wiht mechanical heart valves.CBC W/PLT COUNT & AUTO [id number] 07:16:00 Test Item Value Reference Range Interpretation [...] (BEAKER) (test code = 2801) HEMOGLOBIN AND [id number] 22:37:00 Test Item Value Reference Range Interpretation Comments HEMOGLOBIN (BEAKER) (test code = 7.5 GM/DL 11.2-15.7 L 410) HEMATOCRIT (BEAKER) (test code = 26.8 % 34.1-44.9 L 411) HEMOGLOBIN AND [id number] 10:01:00 Test Item Value Reference Range Interpretation Comments HEMOGLOBIN (BEAKER) (test code = 8.1 GM/DL 11.2-15.7 L 410) HEMATOCRIT (BEAKER) (test code = 28.9 % 34.1-44.9 L 411) VITAMIN D, [id number] 09:22:00 Test Item Value Reference Range Interpretation Comments VITAMIN D 25-OH (BEAKER) (test code 5.7 ng/mL 6.6-49.9 L = 2764) Effective 05/05/2017: Reference Range ChangeNew: 6.6-49.9 ng/mL Previous: 13.0- 47.8 ng/mLRecommendedVitamin D Target Range: 30.0-40.0 ng/mLCOMPREHENSIVE METABOLIC [id number] 08:49:00 Test Item Value Reference Range Interpretation [...] 347) EGFR (BEAKER) (test 65 mL/min/1.73 ESTIMA LEANN GFR IS code = 1092) sq m [...] 4 % 20-55 L (test code = 8920) TSH/FREE T4 IF [id number] 06:46:00 Test Item Value Reference Range Interpretation Comments THYROID STIMULATING HORMONE 0.90 uIU/mL 0.35-4.94 (BEAKER) (test code = 772) VITAMIN B12 AND [id number] 06:46:00 Test Item Value Reference Range Interpretation [...] (BEAKER) (test code = 413) HEMOGLOBIN AND [id number] 23:36:00 Test Item Value Reference Range Interpretation Comments HEMOGLOBIN (BEAKER) (test code = 6.0 GM/DL 11.2-15.7 LL 410) HEMATOCRIT (BEAKER) (test code = 22.6 % 34.1-44.9 L 411) TISSUE [id number] 15:28:00Surgical Pathology Report Case: [id number] Authorizing Provider: Criss Monroe MD Collected: 01/18/2019 0930 Ordering Location: [address] Received: 01/18/2019 1359 Service Pathologist: Sola Kingston MD Specimen: Polyp, Colon - Sigmoid COLON, SIGMOID POLYP, POLYPECTOMY- TUBULAR ADENOMA-HIGH GRADE DYSPLASIA NOT SEEN Signing Pathologist Direct Phone Line: [phone] signed by Sola Kingston MD on 01/19/2019 at 3:28 [id number] and postoperative diagnosis: Other iron deficiency anemiaReceived in one part. Polyp, colon-sigmoidReceived in formalin labeled with the patient's name, accession number and "polyp, colon-sigmoid" is a 0.4-cm pino polyp which is submitted in toto in A1. CG/bc Performed.FL, UGI, WITHOUT [id number] 13:45:00Reason for exam:->Suggestion of large hiatal hernia on EGD - better define anatomy and evaluate for paraesophageal hernia. FINAL REPORT Upper GI examination History: Suggestion of large hiatal hernia onEGD - better define anatomy and evaluate for [...] Large sliding hiatal hernia. Signed: Gordon Orellana Verified Date/Time: 01/19/2019 13:45:41 Reading Location: [facility] C0X OrthoConsult Reading Room [facility] METABOLIC [id number] 08:32:00 Test Item Value Reference Range Interpretation [...] 697) EGFR (BEAKER) (test 75 mL/min/1.73 ESTIMA LEANN GFR IS code = 1092) sq m [...] (test code = 413) VITAMIN B12 AND [id number] 05:50:00 Test Item Value Reference Range Interpretation Comments VITAMIN B12 (BEAKER) (test code = 323 pg/mL 213-816 774) FOLATE (BEAKER) (test code = 362) 11.0 ng/mL >=7.0 BASIC METABOLIC [id number] 05:46:00 Test Item Value Reference Range Interpretation [...] 697) EGFR (BEAKER) (test 76 mL/min/1.73 ESTIMA LEANN GFR IS code = 1092) sq m [...] (BEAKER) (test code = 413) BASIC METABOLIC [id number] 06:19:00 Test Item Value Reference Range Interpretation [...] 697) EGFR (BEAKER) (test 70 mL/min/1.73 ESTIMA LEANN GFR IS code = 1092) sq m NOT ACCURATE CREATININE CLEARANCE IN PREDICTING GLOMERULAR FILTRATION RATE . ESTIMATED GFR I S NOT APPLICABLE FOR DIALYSIS PATIEN TS. Specimen slightly ictericCBC W/PLT COUNT & AUTO [id number] 05:36:00 Test Item Value Reference Range Interpretation [...] = 2801) CBC W/PLT COUNT & AUTO [id number] 22:19:00 Test Item Value Reference Range Interpretation [...] = 2801) CBC W/PLT COUNT & AUTO [id number] 13:07:00 Test Item Value Reference Range Interpretation [...] PERCENT (BEAKER) (test code = 2801) PROTHROMBIN TIME/[id number] 09:14:00 Test Item Value Reference Range Interpretation Comments PROTIME (BEAKER) (test code = 13.5 seconds 11.9-14.2 759) INR (BEAKER) (test code = 370) 1.1 <=5.9 Effective 12/21/2018: PT Reference Range ChangeNew: 11.9-14.2 Previous: 11.7- 14.7RECOMMENDED COUMADIN/WARFARIN INR THERAPY RANGESSTANDARD DOSE: 2.0-3.0 Includes: PROPHYLAXIS for venous thrombosis, systemic embolization; TREATMENT for venous thrombosis and/or pulmonary embolus.HIGH RISK: Target INR is 2.5-3.5 for patients wiht mechanical heart valves.COMPREHENSIVE METABOLIC [...] 347) EGFR (BEAKER) (test 72 mL/min/1.73 ESTIMA LEANN GFR IS code = 1092) sq m NOT ACCURATE CREATININE CLEARANCE IN PREDICTING GLOMERULAR FILTRATION RATE . ESTIMATED GFR I S NOT APPLICABLE FOR DIALYSIS PATIEN TS. CBC W/PLT COUNT & AUTO [id number] 07:07:00 Test Item Value Reference Range Interpretation [...] (BEAKER) (test code = 2801) BASIC METABOLIC [id number] 01:47:00 Test Item Value Reference Range Interpretation [...] 697) EGFR (BEAKER) (test 72 mL/min/1.73 ESTIMA LEANN GFR IS code = 1092) sq m NOT ACCURATE CREATININE CLEARANCE IN PREDICTING GLOMERULAR FILTRATION RATE . ESTIMATED GFR I S NOT APPLICABLE FOR DIALYSIS PATIEN TS. CBC W/PLT COUNT & AUTO [id number] 01:42:00 Test Item Value Reference Range Interpretation [...] (BEAKER) (test code = 2801) Reference Lab [id number] 14:16:00 Test Item Value Reference Range Interpretation Comments Reference Lab Testing Negative Negative Perfor med at: BN - (test code = HELIAG) [facility] [address], [place], [place] [address] b Director: Dioni Jenkins MD, [facility] ne: [phone] SURGICAL PATHOLOGY, LEVEL [id number] 13:33:[address] [address] Laboratory Printed: 01/10/18 8210 [facility] DAEMPathology Page: 1 Patient: CORNELIO RUFFIN Birthdate: 1955 Age/Sex: 62/F Spec#: [id number]: Tyrell Patino MD Specimen Date: 01/07/18 Received Date: 01/07/18 Specimen: POLYP, COLON CLINICAL DIAGNOSIS anemia PATHOLOGIC DIAGNOSIS Cecal polyp, polypectomy: - Tubular adenoma. Comment: There is no high grade dysplasia or malignancy present. Pathologist:Crystal Brumfield MD Entered by:01/10/18 - 1256 LAB.YGP PROCEDURES: [id number] GROSS DESCRIPTION A. POLYP, COLON CECUM The specimen is received in 10% formalin, and is labeled with the patient's nameand "cecumcolon polyp." The specimen consists of two pink-pino soft tissue fragments measuring 1.2 x0.8 x 0.5 cm in aggregate. The largest fragment bisected. The specimen is entirelysubmitted in one cassette. Dictated by: Tina Kimball Entered by: 01/07/18 - 1311 YGP Patient: CORNELIO RUFFIN Re01/05/18Loc: T4-A MR#: [id number] CONTINUED ON NEXT PAGE Dis: 01/08/18ta: DISIN [address] [address] Laboratory Printed: 01/10/[address] [place] [address] DAEMPathology Page: 2 Patient: CORNELIO RUFFIN [id number] (Continued) GROSS DESCRIPTION (Continued) MICROSCOPIC DESCRIPTION A microscopic examination was performed to arrive at the diagnostic conclusion reported. Signed (Electronically Signed) Crystal Brumfield MD 01/10/18 Patient: CORNELIO RUFFIN Re01/05/18Loc: T4-A MR#: [id number] END OF REPORT Dis: 01/08/18ta: DIS [id number] 11:30:00 Test Item Value Reference Range Interpretation [...] for code = EGFRMDRD) Estimated G FR: Greater than 90 mL/min/1.73 m2NOTE:The MDRD equation has no t been validated for u se with theelderly (over 70 years of age ), women, patientswith se rious comorbid condit ion or persons with ex tremes ofbody size, mu scle mass, or nutrit ional status. Chemistry (test 143 mg/dL 80-115 H code = GLU-T) Chemistry (test 8.9 mg/dL 7.8-10.44 N code = CA) [id number] 06:56:00 Test Item Value Reference Range Interpretation Comments Chemistry (test code = MG) 1.8 mg/dL 1.6-2.6 N Comment Add to AM labsComment Add to AM [id number] 06:56:00 Test Item Value Reference Range Interpretation Comments Chemistry (test code = 184 mg/dl < 200 Desired CHOL) Chemistry (test code = 126 mg/dL Less than 150 TRIG) Chemistry (test code = 43 mg/dL >60 Neg Risk Adult HDL levels in HDL) terms of risk f or Coronary Heart Disease > or Equal to 60 mg/dL Negative Risk < 40 mg/dL HIGH R isk Chemistry (test code = 116 mg/dL Level s in terms of LDL) risk for chen ry heart disease: Desirable: Less than 130 mg/dL Borde rline High Risk: 130 - 159 mg/dL High Risk : Greater than 16 0 mg/dL Chemistry (test code = 4.3 Less than 4.5 Adul t levels in terms CRISK) of risk for Cor onary Heart Disease: Dangerous level : Greater than 8. 3 High: 5.6 - 8.3 [place] ge: 3.7 - 5.[address] rage: 2.5 - 3.7 Prote ction probable: Less than 2.5 Comment Add to AM labsComment Add to AM [id number] 04:30:00 Test Item Value Reference Range Interpretation [...] code = BASO#) 0.1 thou/uL 0.0-0.2 N [id number] 04:24:00 Test Item Value Reference Range Interpretation [...] for code = EGFRMDRD) Estimated G FR: Greater than 90 mL/min/1.73 m2NOTE:The MDRD equation has no t been validated for u se with theelderly (over 70 years of age ), women, patientswith se rious comorbid condit ion or persons with ex tremes ofbody size, mu scle mass, or nutrit ional status. Chemistry (test 89 mg/dL 80-115 N code = GLU-T) Chemistry (test 8.9 mg/dL 7.8-10.44 N code = CA) [id number] 15:26:00 Test Item Value Reference Range Interpretation Comments Hematology (test code = HGBT) 8.8 g/dL 12.0-16.0 L Hematology (test code = HCTT) 29.5 % 36.0-47.0 L [address] SURGICAL PATHOLOGY, LEVEL [id number] 14:22:[address] [address] Laboratory Printed: 01/07/18 1423 [facility] DAEMPathology Page: 1 Patient: CORNELIO RUFFIN Birthdate: 1955 Age/Sex: 62/F Spec#: [id number]: Tyrell Patino MD Specimen Date: 01/06/18 Received Date: 01/06/18 Specimen: GASTRIC BIOPSY CLINICAL DIAGNOSIS anemia PATHOLOGIC DIAGNOSISA. Stomach, NOS, endoscopic biopsy: - Mild chronic inactive gastritis. - No Helicobacter pylori organisms identified. Comment: No Helicobacter pylori organisms are identified on Diff- Quik special stainperformed with adequate control. B. Esophagus, NOS, endoscopic biopsy: - Mild active esophagitis, consistent with gastroesophageal reflux. - No Fuchs's specialized columnar epithelium identified. - Unremarkable gastric mucosa. Comment: A PAS/Alcian Blue stain with adequate control is negative for fungal organisms andconfirms the absence of intestinal metaplasia. Pathologist:Mike Green MD Entered by:01/07/18 - 1117 LAB.YGP PROCEDURES: 64461/2, 11468/2, 58390 Patient: CORNELIO RUFFIN Re01/05/18Loc: T4-A MR#: [id number] CONTINUED ON NEXT PAGE Dis: Sta: ADM IN [address] [address] Laboratory Printed: 01/07/[address] [place] [address] [facility] Page: 2 Patient: CORNELIO RUFFIN [id number] (Continued) GROSS DESCRIPTION A.GASTRIC BIOPSY The specimen is received in 10% formalin, and is labeled with the patient's name and"gastric biopsy." The specimen consists of two pink-pino soft tissue fragments measuring 0.4cm in aggregate. The specimen is entirely submitted in cassette A. B. ESOPHAGEAL BIOPSY The specimen is received in 10% formalin, and is labeled with the patient's name and"esophagus biopsy." The specimen consistsof two pink-pino soft tissue fragments measuring0.6 cm in aggregate. The specimen is entirely submitted in cassette B. Dictated by: Tina Kimball Entered by: 01/06/18 - 1639 LAB.YGP MICROSCOPIC DESCRIPTION A microscopic examination was performed to arrive at the diagnostic conclusion reported. Signed (Electronically Signed) Mike Green MD 01/07/18 Patient: CORNELIO RUFFIN Re01/05/18Loc:T4-A MR#: [id number] END OF REPORT Dis: Sta: ADM INChemistry - Benji [id number] 13:00:00 Test Item Value Reference Range Interpretation [...] = DSDNAIGG) Chemistry - Benji dsDNA Less than Testing (test code 10.0 IU/m L = = DSDNAINTERP) Negative 10.0 - 15.0 IU/mL = Equivocal Great er than 15.0 IU/mL = POSITIVE Chemistry - Benji NEW METHOD [...] hod: Enzyme Linked Fluorescent Immunoassay (Benji)Reference s: [employer] Benji Package Inserts - Directions september,November 12, [employer]. Chemistry - Benji [id number] 13:00:00 Test Item Value Reference Range Interpretation Comments Chemistry - Benji 0.6 U/mL <4 Negative Testing (test code = M2T) Chemistry - Benji Less th an 4.0 U/mL Testing (test code = Negativ e 4.0 - 6.0 = [id number]) U/mL = Equivoc al Greater than 6. 0 U/mL = POSITIVE [...] hod: Enzyme Linked Fluorescent Immunoassay (Benji)Reference s: [employer] Benji Package Inserts - Directions september,November 12, [employer]. Chemistry - Benji 0.6 U/mL <4 Negative Testing (test code = M2T) Chemistry - Benji Less th an 4.0 U/mL Testing (test code = Negativ e 4.0 - 6.0 = [id number]) U/mL = Equivoc al Greater than 6. 0 U/mL = POSITIVE [...] [employer] Benji Package Inserts - Directions forU se, September,November 12, [employer]. Chemistry - Benji [id number] 13:00:00 Test Item Value Reference Range Interpretation Comments Chemistry - Benji CENP, Chela -1, RNP70, Testing (test code = Scl-70, Longo, ELIAANAINTERP) SSA/Ro, SSB/L a IgGAntibodies: Less than 7.0 Benji U /mL = Negative 7.0 - 10.0 Benji U/mL = Equivocal Great er than 10.0 Benji U/mL = [id number] IgG: Less than 5.0 Benji U/mL = Negative 5.0 - 10.0 Benji U/mL = Equivocal Great er than 10.0 Benji U/mL = POSITIVE Chemistry - Benji [id number] 12:38:00 Test Item Value Reference Range Interpretation Comments Chemistry - Benji Testing (test 0.4 EliAU/mL <7 Negative code = CELTTGIGA) Comment add onChemistry - Benji [id number] 12:38:00 Test Item Value Reference Range Interpretation Comments Chemistry - Benji Testing (test 0.6 EliAU/mL <7 Negative code = CELTTGIGG) Comment add onChemistry - Benji [id number] 12:38:00 Test Item Value Reference Range Interpretation Comments Chemistry - Benji Less th an 7.0 Benji Testing (test code = U/mL = Negative 7.0 [id number]) - 10.0 Benji U/m L = Equivocal Great er than 10.0 Benji U/mL = POSITIVE Comment add onChemistry - [id number] 12:33:00 Test Item Value Reference Range Interpretation Comments Chemistry - Specials Non-Reactive NonReactive The ames el screens (test code = HIVT) for HIV-1 p24 Antigen HIV-1/HIV-2Anti body. [id number] 10:27:00 Test Item Value Reference Range Interpretation Comments Immunology (test code = SYPHABT) Nonreactive Nonreactive [id number] 10:25:00 Test Item Value Reference Range Interpretation [...] Hematology (test code = MODERATE=15-30 cells 0-5/hpf AR) (100X) Hematology (test code = MODERATE=16-30 cells 0-5/hpf HYPO) (100X) Hematology (test code = SLIGHT = 2-3 cells 0-2/hpf POLY) (100X) Hematology (test code = MODERATE= 6-15 cells 0-1/hpf OV) (100X) Hematology (test code = Appears Adequate PCOMMENT) [id number] 10:07:00 Test Item Value Reference Range Interpretation [...] ce Range for = EGFRMDRD) Estimated GFR: Greater than 90 mL/min/ 1.73 m2NOTE:The MDRD equation has no t been validated for u se with theelderly (ove r 70 years of age), women, patients with serious comorbi d condition or pe rsons with extremes o fbody size, muscle ma ss, or nutritional sta tus. Chemistry (test code 79 mg/dL 80-115 L = GLU-T) Chemistry (test code 8.6 mg/dL 7.8-10.44 N = CA) Occult Blood, Stool SCREEN (3)2018-01-06 17:56:00 Test Item Value Reference Range Interpretation Comments Occult Blood, Stool SCREEN (3) (test IFOB code = OCCSTS) Occult Blood, Stool SCREEN (3) (test N code = OCCSTS1) Comment [id number] 16:59:00 Test Item Value Reference Range Interpretation [...] MPV) 10.9 fL 7.4-10.4 H Chemistry - [id number] 13:59:00 Test Item Value Reference Range Interpretation Comments Chemistry - Specials Non-Reactive NonReactive (test code = HBSABINT) Chemistry - Specials 0.37 mIU/mL REFEREN CE RANGES for (test code = HBSAB (Hepatiti s B HBSABCONC) Surface Antibody):Nonre active : 0.0 - <8.0 Individual is considered NOT immune to HBV infectionIndete rminat e: >= 8.0 - <12 .0 The immune status o f the individual shou ld be further assesse d by follow-up testing.Reactiv e: >= 12.0 Individual is considered immu ne to HBV infection. [id number] 12:26:00 Test Item Value Reference Range Interpretation [...] = MPV) 5.3 fL 7.4-10.4 L Type [id number] 11:29:00 Test Item Value Reference Range Interpretation Comments Blood Type Rh (test code = BT) O POSITIVE Antibody Screen (test code = ABSC) NEGATIVE Received Blood Or Been w/in Past 90 Days? UNKNOWNReceived Blood Or Been w/in Past 90 Days? NOScheduled Surgery Date: NO SURGERYIs Surgery Date Greater than 7 days from now? NOPacked Cells - [id number] 11:29:00 [id number] OP LRPC TFUSE 01/06/18 [id number] 05:27:00 Test Item Value Reference Range Interpretation [...] ce Range for = EGFRMDRD) Estimated GFR: Greater than 90 mL/min/ 1.73 m2NOTE:The MDRD equation has no t been validated for u se with theporter medical centererly (ove r 70 years of age), women, patients with serious comorbi d condition or pe rsons with extremes o fbody size, muscle ma ss, or nutritional sta tus. Chemistry (test code 91 mg/dL 80-115 N [...] code 149 U/L 8-55 H = ALT) [id number] 05:18:00 Test Item Value Reference Range Interpretation [...] BASO#) 0.0 thou/uL 0.0-0.2 N Chemistry - [id number] 00:59:00 Test Item Value Reference Range Interpretation Comments Chemistry - Specials (test Non-Reactive NonReactive code = THEPAIGM) Chemistry - Specials (test Non-Reactive S/CO NonReactive code = THBSAG) Chemistry - Specials (test Non-Reactive NonReactive code = INTHBCM) Chemistry - Specials (test Non-Reactive NonReactive code = INTHEPC) Chemistry - BNP, HgbA1c, [id number] 19:45:00 Test Item Value Reference Range Interpretation Comments Chemistry - BNP, HgbA1c, PTHi 100.4 pg/mL 0-100 H (test code = BNP) Comment add [id number] 19:38:00 Test Item Value Reference Range Interpretation Comments Chemistry (test 1.5 ng/mL 0-6.6 N code = CKMBM-T) Chemistry (test Less than < 0.028 code = TROPI-T) 0.010 ng/mL Reference Ra nge 0.00 - 0.028 ng /mL Negative 0.029 - 0.29 ng/mL Indetermi willie Greater or Equa l to 0.3 ng/mL Stron gly suggests AR Comment add onChemistry - [id number] 18:21:00 Test Item Value Reference Range Interpretation Comments Chemistry - Specials (test code = 24.27 ng/mL 10-291 N LINDSAY) [id number] 18:14:00 Test Item Value Reference Range Interpretation [...] Hematology (test code = MODERATE=15-30 cells 0-5/hpf AR) (100X) Hematology (test code = SLIGHT = [...] Hematology (test code = Appears Adequate PCOMMENT) [id number] 17:59:00 Test Item Value Reference Range Interpretation [...] ce Range for = EGFRMDRD) Estimated GFR: Greater than 90 mL/min/ 1.73 m2NOTE:The MDRD equation has no t been validated for u se with theelderly (ove r 70 years of age), women, patients with serious comorbi d condition or pe rsons with extremes o fbody size, muscle ma ss, or nutritional sta tus. Chemistry (test code 83 mg/dL 80-115 N [...] code 220 U/L 8-55 H = ALT) [id number] 17:59:00 Test Item Value Reference Range Interpretation Comments Chemistry (test code = IRON) 15 ug/dL 50-170 L [id number] 17:59:00 Test Item Value Reference Range Interpretation Comments Chemistry (test code = TIBC) 386 mcg/dL 265-497 N [id number] 17:50:00 Test Item Value Reference Range Interpretation Comments Coagulation (test 13.3 SEC 12.0-14.7 N code = PT-T) Coagulation (test 1.0 ATTE NTION: READ code = INR) CAREFULLY-- The recommended the rapeutic ranges for oral anticoagulanttr eatments are: ------ Low Inte nsity: 1.5 - 2.0 Moderate In tensity: 2.0 - 3.0 High Inte nsity (1): 2.5 - 3.5 High Inte nsity (2): 3.0 - 4.0 CRITICAL: > 4.0 Anticoagulant? NONEMedical Necessity SUSPECT COAGULOPATHYAnticoagulant? NONEMedical Necessity: SUSP [id number] 17:50:00 Test Item Value Reference Range Interpretation Comments Coagulation (test code = PTT) 23.4 SEC 22.9-36.1 N Anticoagulant? NONEMedical Necessity SUSPECT COAGULOPATHYAnticoagulant? NONEMedical Necessity: SUSP COAG
[2022-06-30] MEDS ORDERED: lisinopriL 20 MG TAB ONE (12:55)
[2022-06-30] MEDS ORDERED: ALPRAZOLAM 1 MG TABLET ONE (12:55)
[2022-06-30 13:03] LABS: Absolute Lymphocytes (CBC) 1.4 K/uL (0.7-4.9); Hematocrit 44.5 % (36.0-45.0); Lymphocytes % 10.5 % (15.3-44.8); MCV 92.3 fL (80-100); MPV 8.1 fL (7.6-11.3); RBC Red Blood Cell Count 4.82 M/uL (3.86-4.86)
[2022-06-30 13:21] LABS: Troponin High Sensitivity 22.6 pg/mL (<58.9)
--- NOTE | 2022-06-30 14:18 | RAD REPORT ---
EXAM DESCRIPTION: Loc Single View06/30/2022 1:48 pm CLINICAL HISTORY: Chest pain COMPARISON: 2020 FINDINGS: The lungs appear clear of acute infiltrate. The heart is normal size IMPRESSION: No acute abnormalities displayed
--- NOTE | 2022-06-30 14:41 | ER ---
Nurse's Notes [facility] Name: Irma Cain Age: 67 yrs Sex: Female : 1955 Arrival Date: 06/30/2022 Time: 12:05 Bed 7 Private MD: Diagnosis: Hypertensive heart disease without heart failure Presentation: 06/30 12:20 Chief complaint: Patient states: high blood pressure lately and very many falls. jh5 Several within the last month. denies having chest pain or sob prior to these falls. just off balance. Coronavirus screen: Vaccine status: Patient reports receiving the 2nd dose of the covid vaccine. Client denies travel out of the [place] in the last 14 days. Ebola Screen: Patient negative for fever greater than or equal to 101.5 degrees Fahrenheit, and additional compatible Ebola Virus Disease symptoms Patient denies exposure to infectious person. Patient denies travel to an Ebola-affected area in the 21 days before illness onset. Initial Sepsis Screen: Does the patient meet any 2 criteria? No. Patient's initial sepsis screen is negative. Does the patient have a suspected source of infection? No. Patient's initial sepsis screen is negative. Risk Assessment: Do you want to hurt yourself or someone else? Patient reports no desire to harm self or others. 12:20 Method Of Arrival: Ambulatory [facility] 12:20 Acuity: FELA 3 5 12:53 Onset of symptoms is unknown. ap3 Triage Assessment: 12:23 General: Appears in no apparent distress. uncomfortable, slender, well groomed, well jh5 developed, Behavior is calm, cooperative, appropriate for age. Pain: Denies pain. Historical: - Allergies: 12:23 Aspirin; 5 12:23 Talwin; 5 12:23 Neosporin (mwe-lil-xpcnm); 5 12:23 NSAIDS; [facility] - PMHx: 12:23 Asthma; Hypertensive disorder; UNMEDICATED; 5 - Immunization history:: Adult Immunizations up to date. - Social history:: Smoking status: Patient denies any tobacco usage or history of. Screenin:53 Abuse screen: Denies threats or abuse. Nutritional screening: No deficits noted. ap3 Tuberculosis screening: No symptoms or risk factors identified. Fall Risk Fall in past 12 months (25 points). Secondary diagnosis (15 points) impaired mobility, IV access (20 points). Ambulatory Aid- None/Bed Rest/Nurse Assist (0 pts). Gait- Normal/Bed Rest/Wheelchair (0 pts) Mental Status- Oriented to own ability (0 pts). Total Rogers Fall Scale indicates High Risk Score (45 or more points). Fall prevention measures have been instituted. Side Rails Up X 2 Placed Close to Nursing Station Frequent Obs/Assessments Occuring As available patient and family educated on Fall Prevention Program and Strategies. Assessment: 12:52 General: Appears uncomfortable, Behavior is cooperative, anxious. Neuro: Level of ap3 Consciousness is awake, alert, obeys commands, Oriented to person, place, time, situation, Speech is normal. Cardiovascular: Patient's skin is warm and dry. Respiratory: Airway is patent Respiratory effort is even, unlabored, Respiratory pattern is regular, symmetrical. 13:40 Reassessment: Patient and/or family updated on plan of care and expected duration. Pain ap3 level reassessed. Patient is alert, oriented x 3, equal unlabored respirations, skin warm/dry/pink. Vital Signs: 12:20 BP 186 / 103; Pulse 119; Resp 26; Temp 98.8; Pulse Ox 96% on R/A; Weight 49.9 kg; [facility] Height 5 ft. 0 in. (152.40 cm); Pain 0/10; 13:39 BP 151 / 84; Pulse 95; Pulse Ox 95% on R/A; ap3 14:11 BP 150 / 86; Pulse 89; Pulse Ox 95% on R/A; ap3 12:20 Body Mass Index 21.48 (49.90 kg, 152.40 cm) [facility] ED Course: 12:05 Patient arrived in ED. as 12:08 Adelso Jay MD is Attending Physician. kdr 12:20 Anna Pedroza, CANDACE is Primary Nurse. ap3 12:23 Triage completed. 5 12:23 Arm band placed on right wrist. 5 12:52 Inserted saline lock: 22 gauge in left wrist, using aseptic technique. Blood collected. ap3 12:53 Patient has correct armband on for positive identification. Bed in low position. Call ap3 light in reach. Side rails up X2. hospital monitor on. Pulse ox on. NIBP on. Door closed. Noise minimized. 13:50 XRAY Chest (1 view) In Process Unspecified. EDMS 14:51 No provider procedures requiring assistance completed. IV discontinued, intact, bp bleeding controlled, No redness/swelling at site. Pressure dressing applied. Administered Medications: 13:09 Drug: XANax (alprazolam) Tablet 1 mg Route: PO; ap3 14:43 Follow up: Response: No adverse reaction bp 13:09 Drug: Lisinopril 10 mg Route: PO; ap3 14:43 Follow up: Response: No adverse reaction bp Medication: 12:54 VIS not applicable for this client. ap3 Outcome: 14:41 Discharge ordered by . kdr 14:51 Discharged to home ambulatory. bp 14:51 Condition: stable 14:51 Discharge instructions given to patient, Instructed on discharge instructions, follow up and referral plans. medication usage, Demonstrated understanding of instructions, follow-up care, medications, Prescriptions given X 1. 15:04 Patient left the ED. ap3 Signatures: Dispatcher [employer] EDMS Adelso Jay MD MD kdr Mattie Bridges Brian, RN RN bp Anna Pedroza RN RN ap3 Terrie Burgess RN RN jh5
--- NOTE | 2022-06-30 14:41 | EDPHYS ---
Physician Documentation [facility] Name: Irma Cain Age: 67 yrs Sex: Female : 1955 Arrival Date: 06/30/2022 Time: 12:05 Bed 7 Private MD: ED Physician Adelso Jay HPI: 06/30 17:23 This 67 yrs old Female presents to ER via Ambulatory with complaints of High Blood kdr Pressure, repeated falls. 17:23 Patient states that she has not been taking her blood pressure medicine for many months kdr if not years. Recently she is felt that her blood pressure was elevated and has felt off balance and has had some falls. She is also has some mild shortness of breath. Patient presents today not in any acute distress but feeling that her blood pressure is elevated. She has not had chest pain, shortness of breath. She is also just been off balance and falling but denies any injury or other issue with the falls.. Onset: The symptoms/episode began/occurred at an unknown time. Severity of symptoms: At their worst the symptoms were mild in the emergency department the symptoms are unchanged. The patient has experienced similar episodes in the past, chronically. The patient has not recently seen a physician. Historical: - Allergies: 12:23 Aspirin; 5 12:23 Talwin; [facility] 12:23 Neosporin ([id number]); [facility] 12:23 NSAIDS; 5 - PMHx: 12:23 Asthma; Hypertensive disorder; UNMEDICATED; jh5 - Immunization history:: Adult Immunizations up to date. - Social history:: Smoking status: Patient denies any tobacco usage or history of. ROS: 17:23 Constitutional: Negative for fever, chills, and weight loss, Eyes: Negative for injury, kdr pain, redness, and discharge, ENT: Negative for injury, pain, and discharge, Neck: Negative for injury, pain, and swelling, Cardiovascular: Negative for chest pain, palpitations, and edema, Respiratory: Negative for shortness of breath, cough, wheezing, and pleuritic chest pain, Abdomen/GI: Negative for abdominal pain, nausea, vomiting, diarrhea, and constipation, Back: Negative for injury and pain, : Negative for injury, bleeding, discharge, and swelling, MS/Extremity: Negative for injury and deformity, Skin: Negative for injury, rash, and discoloration, Psych: Negative for depression, anxiety, suicide ideation, homicidal ideation, and hallucinations, Allergy/Immunology: Negative for hives, rash, and allergies, Endocrine: Negative for neck swelling, polydipsia, polyuria, polyphagia, and marked weight changes, Hematologic/Lymphatic: Negative for swollen nodes, abnormal bleeding, and unusual bruising. 17:23 Neuro: Positive for dizziness, weakness. Exam: 17:23 Constitutional: This is a well developed, well nourished patient who is awake, alert, kdr and in no acute distress. Head/Face: Normocephalic, atraumatic. Eyes: Pupils equal round and reactive to light, extra-ocular motions intact. Lids and lashes normal. Conjunctiva and sclera are non-icteric and not injected. Cornea within normal limits. Periorbital areas with no swelling, redness, or edema. Neck: Trachea midline, no thyromegaly or masses palpated, and no cervical lymphadenopathy. Supple, full range of motion without nuchal rigidity, or vertebral point tenderness. No Meningismus. Chest/axilla: Normal chest wall appearance and motion. Nontender with no deformity. No lesions are appreciated. Cardiovascular: Regular rate and rhythm with a normal S1 and S2. No gallops, murmurs, or rubs. Normal PMI, no JVD. No pulse deficits. Respiratory: Lungs have equal breath sounds bilaterally, clear to auscultation and percussion. No rales, rhonchi or wheezes noted. No increased work of breathing, no retractions or nasal flaring. Abdomen/GI: Soft, non-tender, with normal bowel sounds. No distension or tympany. No guarding or rebound. No evidence of tenderness throughout. Back: No spinal tenderness. No costovertebral tenderness. Full range of motion. Skin: Warm, dry with normal turgor. Normal color with no rashes, no lesions, and no evidence of cellulitis. MS/ Extremity: Pulses equal, no cyanosis. Neurovascular intact. Full, normal range of motion. Neuro: Awake and alert, GCS 15, oriented to person, place, time, and situation. Cranial nerves II-XII grossly intact. Motor strength 5/5 in all extremities. Sensory grossly intact. Cerebellar exam normal. Normal gait. Psych: Awake, alert, with orientation to person, place and time. Behavior, mood, and affect are within normal limits. Vital Signs: 12:20 BP 186 / 103; Pulse 119; Resp 26; Temp 98.8; Pulse Ox 96% on R/A; Weight 49.9 kg; 5 Height 5 ft. 0 in. (152.40 cm); Pain 0/10; 13:39 BP 151 / 84; Pulse 95; Pulse Ox 95% on R/A; ap3 14:11 BP 150 / 86; Pulse 89; Pulse Ox 95% on R/A; ap3 12:20 Body Mass Index 21.48 (49.90 kg, 152.40 cm) [facility] MDM: 14:41 Patient medically screened. kdr 17:23 Data reviewed: vital signs, nurses notes, lab test result(s), radiologic studies. kdr Counseling: I had a detailed discussion with the patient and/or guardian regarding: the historical points, exam findings, and any diagnostic results supporting the discharge/admit diagnosis, lab results, radiology results, the need for outpatient follow up. 12 12:51 Order name: Basic Metabolic Panel; Complete Time: 13:55 kdr 06/30 12:51 Order name: CBC with Diff; Complete Time: 13:55 kdr 06/30 12:51 Order name: NT PRO-BNP; Complete Time: 13:55 kdr 06/30 12:51 Order name: Troponin HS; Complete Time: 13:55 kdr 06/30 12:51 Order name: XRAY Chest (1 view); Complete Time: 14:36 kdr 06/30 12:51 Order name: EKG; Complete Time: 12:53 kdr 06/30 12:51 Order name: Cardiac monitoring; Complete Time: 13:05 kdr 06/30 12:51 Order name: EKG - Nurse/Tech; Complete Time: 13:05 kdr 06/30 12:51 Order name: IV Saline Lock; Complete Time: 12:52 kdr 06/30 12:51 Order name: Labs collected and sent; Complete Time: 13:05 kdr 06/30 12:51 Order name: O2 Per Protocol; Complete Time: 12:52 kdr 06/30 12:51 Order name: O2 Sat Monitoring; Complete Time: 12:52 kdr Administered Medications: 13:09 Drug: XANax (alprazolam) Tablet 1 mg Route: PO; ap3 14:43 Follow up: Response: No adverse reaction bp 13:09 Drug: Lisinopril 10 mg Route: PO; ap3 14:43 Follow up: Response: No adverse reaction bp Disposition Summary: 06/30/22 14:41 Discharge Ordered Location: Home kdr Problem: new kdr Symptoms: have improved kdr Condition: Stable kdr Diagnosis - Hypertensive heart disease without heart failure kdr Followup: kdr - With: Private Physician - When: 2 - 3 days - Reason: If symptoms return, Further diagnostic work-up, Recheck today's complaints, Continuance of care, Re-evaluation by your physician Discharge Instructions: - Discharge Summary Sheet kdr - Hypertension, Adult, [id number] kdr Forms: - Medication Reconciliation Form kdr - Thank You Letter kdr Prescriptions: - Lisinopril 20 mg Oral Tablet - take 1 tablet by ORAL route once daily; 30 tablet; Refills: 0, Product kdr Selection Permitted Signatures: Dispatcher [employer] Adelso Mcmahan MD MD kdr Anna Pedroza RN RN ap3 Terrie Burgess RN RN jh5 Walt Gabriel RN bp
[2022-06-30 17:10] VITALS: TEMP 98.8
[2022-06-30 17:15] VITALS: O2SAT 95
[2022-06-30 17:16] VITALS: BP 150/86
== END 2022-06-30 15:04 | disposition home or self-care (01) ==
LOC: ER 12:02
DX: I11.9 Hypertensive heart disease without heart failure (principal); I10 Essential (primary) hypertension; Z88.3 Allergy status to other anti-infective agents; Z88.6 Allergy status to analgesic agent; Z88.8 Allergy status to other drugs, medicaments and biological substances
CPT/HCPCS: 36415; 71045; 80048; 83880; 84484; 85025; 93005; 99284

== ENCOUNTER 2022-07-16 19:45 | Observation (INO) | payer OTHER ==
--- OUTSIDE RECORDS SUMMARY | 2022-07-16 20:00 | XMS REPORT | Continuity of Care Document ---
:1955 Author Organization [facility] t Address [address] [place] [address] Care Team Providers Name Role Phone Cuba Gardiner MD Primary Care Physician Unavailable BOBBY SIMS Attending Clinician Unavailable CANDIDA BURGESS Attending Clinician Unavailable CUBA GARDINER Attending Clinician Unavailable Doctor Unassigned, Turner Attending Clinician Unavailable Sharla Ashraf Attending Clinician [...] Date Expiration Date S supa HUMANA CHOICE [id number] 2014 00:00:00 Problems Condition Condition Condition Status [...] presence for not not surgery specified specified [id number] Hiatal Hiatal Disease Active 2020-0 Overview: Univer s hernia hernia 3-02 Added ity of 00:00: automatic [place] 00 ally from Medical request Branch for surgery [id number] Anxiety Anxiety Disease Active Univers 8-22 ity [...] 00:00: [place] infection infection 00 [facility] RACHEL RACHEL Disease Active 2015-07 Univers (obstructi [...] [place] disorder) disorder) 00 [facility] Iron Iron Disease Active 2015-07 Univers deficiency [...] Date Date Clinician Aspirin Drug Active Anaphylaxis 2019-[address] [facility] [...] s rin nce 00:00: Medical 00 Center Neomycin Propensi Active Other - See 2019-0 Aquino U nivers -Bacitra ty to comments 6-24 skin ity of kane-Poly adverse 00:00: [place] myxin reaction 00 Medical s Branch DIPHENHY DRUG Active High Anaphylaxis 2019-0 Uni vers DRAMINE INGREDI 6-24 ity of HCL 00:00: [place] 00 Medical Branch NEOMYCIN DRUG Active Other-Cmnt 2019-0 Univ ers -BACITRA 6-24 ity of KANE-POLY 00:00: [place] MYXIN 00 Medical Branch PENTAZOC DRUG Active N/V 2019-0 Univers INE-ASPI 6-24 ity of RIN 00:00: [place] 00 Medical Branch Diphenhy Propensi Active Anaphylaxis 2019-0 U nivers dramine ty to 6-24 ity of Hcl adverse 00:00: [place] reaction 00 Medical s Branch Neomycin Propensi Active Other - See 2019-0 Aquino U nivers -Bacitra ty to comments 6-24 skin ity of kane-Poly adverse 00:00: [place] myxin reaction 00 Medical s Branch Pentazoc Propensi Active Nausea 2019-0 Univer s ine-Aspi ty to and/or 6-24 ity of rin adverse Vomiting 00:00: [place] reaction 00 Medical s Branch ACETAMIN DRUG Active Unknown-Cmnt 2018-0 Un bogdan [...] Branch TALWIN DRUG Active Dizziness Univers COMPOUND -06 ity of 00:00: [place] 00 Medical Branch [...] Start Date Stop Date Quantity Comments Source Exposure to Not sure [facility]-CoV-2 [place] Medical (event) Branch History SDOH [facility] Std Medical Cent[facility] r Drinks History SDOH [facility] Alcohol Binge Medical Radha ter History SDOH [facility] Alcohol Comment Medical C enter Alcohol intake 2019-03-06 2019-03-[address] 00:00:00 non-drinker of Medical Ce nter alcohol (finding) History SDOH 2019-01-18 2019-01-[address] [facility] Alcohol Frequency 00:00:00 00:00:00 [facility] Tobacco use and 2019-01-16 2019-01-[address] [facility] exposure 00:00:00 00:00:00 [facility] Sex Assigned At [address] [facility] 00:00:00 00:[facility]:00 [facility] Smoking Status Start Date Stop Date Source Never smoker [facility] Medical Branch Medications Ordered Filled [...] or Shortness of Breath. losartan 50 Yes [id number] 50mg Take 1 Univers mg tablet 4-28 tablet by ity o f 00:00: mouth [place] 00 daily. Medical Branch losartan 50 0 Yes [id number] 50mg Take 1 Univers mg tablet 4-28 tablet by ity o f 00:00: mouth [place] 00 daily. Medical Branch losartan 50 0 Yes [id number] 50mg Take 1 Univers mg tablet 4-28 tablet by ity o f 00:00: mouth [place] 00 daily. Medical Branch losartan 50 0 Yes [id number] 50mg Take 1 Univers mg tablet 4-28 tablet by ity o f 00:00: mouth [place] 00 daily. Medical Branch ALPRAZolam 2020- No Univer s 2 mg tablet 11-15 ity of 00:00: 00:00 [place] 00 :00 Medical Branch ALPRAZolam 2020-0 2020- No Univer s 2 mg tablet 11-15-28 ity of 00:00: 00:00 [place] 00 :00 [...] [place] 00 times Medical daily. Branch venlafaxine 2021-0 Yes 75mg Take 75 mg Univers XR 75 mg 24 4-14 by mouth 2 it y of hr capsule 00:00: (two) 00 times Medical daily. Branch venlafaxine 2020-0 Yes 75mg Take 75 mg Univers XR 75 mg 24 4-14 by mouth 2 it y of hr capsule 00:00: (two) [place] 00 times Medical daily. Branch zolpidem 10 2020-0 Yes 10mg Take 10 mg Univers mg tablet 4-08 by mouth ity of 00:00: at [place] bedtime. Medical Branch zolpidem 10 2020-0 Yes 10mg Take 10 mg Univers mg tablet 4-08 by mouth ity of 00:00: at [place] bedtime. Medical Branch zolpidem 10 2020-0 Yes 10mg Take 10 mg Univers mg tablet 4-08 by mouth ity of 00:00: at [place] [address] bedtime. Medical Branch zolpidem 10 2020-0 Yes 10mg Take 10 mg Univers mg tablet 4-08 by mouth ity of 00:00: at [place] [address] bedtime. Medical Branch ALPRAZolam 2020-0 2021- No .5mg Take 0.5 Un bogdan 0.5 mg 4-08 04-28 mg by ity of tablet 00:00: 00:00 mouth 2 [place] 00 :00 (two) Medical times [place] daily. ALPRAZolam 2020-0 2021- No .5mg Take 0.5 Un bogdan 0.5 mg 4-08 04-28 mg by ity of tablet 00:00: 00:00 mouth 2 [place] 00 :00 (two) Medical times [place] daily. atomoxetine 2020-0 Yes 40mg Take 40 mg Univers 40 mg 3-25 by mouth 2 ity of capsule 00:00: (two) [place] times Medical daily. Branch temazepam 2020-0 Yes 30mg Take 30 mg Un bogdan 30 mg 3-25 by mouth ity of capsule 00:00: at [place] [address] bedtime. Medical Branch atomoxetine 1-0 Yes 40mg Take 40 mg Univers 40 mg 3-25 by mouth 2 ity of capsule 00:00: (two) [place] times Medical daily. Branch temazepam 2020-0 Yes 30mg Take 30 mg Un bogdan 30 mg 3-25 by mouth ity of capsule 00:00: at [place] [address] bedtime. Medical Branch atomoxetine Yes 40mg Take 40 mg Univers 40 mg 3-25 by mouth 2 ity of capsule 00:00: (two) [place] 00 times Medical daily. Branch temazepam Yes 30mg Take 30 mg Un bogdan 30 mg 3-25 by mouth ity of capsule 00:00: at [place] [address] bedtime. Medical Branch atomoxetine Yes 40mg Take 40 mg Univers 40 mg 3-25 by mouth 2 ity of capsule 00:00: (two) [place] 00 times Medical daily. Branch temazepam Yes 30mg Take 30 mg Un bogdan 30 mg 3-25 by mouth ity of capsule 00:00: at [place] [address] bedtime. Medical Branch ARIPiprazol Yes TAKE 1 TO U nivers e 2 mg 3-11 2 TABLETS ity of tablet 00:00: BY MOUTH [place] EVERY Medical NIGHT AT [facility] ARIPiprazol 2020- Yes TAKE 1 TO U nivers e 2 mg 3-11 2 TABLETS ity of tablet 00:00: BY MOUTH [place] EVERY Medical NIGHT AT [facility] ARIPiprazol 2020-0 Yes TAKE 1 TO U nivers e 2 mg 3-11 2 TABLETS ity of tablet 00:00: BY MOUTH [place] [address] EVERY Medical NIGHT AT [facility] ARIPiprazol 2020-0 Yes TAKE 1 TO U nivers e 2 mg 3-11 2 TABLETS ity of tablet 00:00: BY [place] [address] EVERY Medical NIGHT AT [facility] DALIRESP 2020-0 2021- No 1{tbl} Take 1 Univ ers 250 mcg Tab 3-11 04-28 tablet by it y of 00:00: 00:00 mouth [place] 00 :00 daily. Medical Branch DALIRESP 2020-0 2020- No 1{tbl} Take 1 Univ ers 250 mcg Tab 3-11 04-28 tablet by it y of 00:00: 00:00 mouth [place] 00 :00 daily. Medical Branch SERTraline 0 Yes 100mg Take 100 Un bogdan 100 mg 2-04 mg by ity of tablet 00:00: mouth at [place] [address] bedtime. Medical Branch SERTraline 2020-0 Yes 100mg Take 100 Un bogdan 100 mg 2-04 mg by ity of tablet 00:00: mouth at [place] 00 bedtime. Medical Branch SERTraline 2020-0 Yes 100mg Take 100 Un bogdan 100 mg 2-04 mg by ity of tablet 00:00: mouth at [place] 00 bedtime. Medical Branch SERTraline 2020-0 Yes 100mg Take 100 Un bogdan 100 mg 2-04 mg by ity of tablet 00:00: mouth at [place] 00 bedtime. Medical Branch ergocalcife 2020-0 2020- No [id number] Take Univers rol, 02-28 50,000 ity of vitamin d2, 00:00: 04:59 Units by [place] 2,500 unit 00 :00 mouth Medical Cap weekly for Branch 6 doses. ergocalcife 2020-0 2020- No [id number] Take Univers rol, 02-28 50,000 ity of vitamin d2, 00:00: 04:59 Units by [place] 2,500 unit 00 :00 mouth Medical Cap weekly for Branch 6 doses. ergocalcife 2019-0 2020- No [id number] Take [facility], 02-28 50,000 ity of vitamin [...] by mouth ity of capsule 01:02: daily. [place] [address] Medical Branch fluticasone 2020-0 Yes Inhale. Uni vers /umeclidin/ 7-31 ity of vilanter 01:02: [place] ([facility] 13 Medical [facility] Branch INHALE) albuterol 2020-0 Yes 2{puff} Inhale 2 U nivers (VENTOLIN) 7-31 Puffs ity of 90 01:02: every 6 [place] mcg/actuati 13 (six) Medical on inhaler hours as Branc h needed for Wheezing or Shortness of Breath. omeprazole 2020-0 Yes 40mg Take 40 mg U nivers 40 mg 7-31 by mouth ity of capsule 01:02: daily. [address] Branch fluticasone 2020-0 Yes Inhale. Uni vers /umeclidin/ 7-31 ity of vilanter 01:02: [place] ([place] [address] Medical ELLIPTA Branch INHALE) albuterol 2020-0 Yes 2{puff} Inhale 2 U nivers (VENTOLIN) 7-31 Puffs ity of 90 01:02: every 6 [place] mcg/actuati 13 (six) Medical on inhaler hours as Branc h needed for Wheezing or Shortness of Breath. omeprazole 2020-0 Yes 40mg Take 40 mg U nivers 40 mg 7-31 by mouth ity of capsule 01:02: daily. [address] Branch fluticasone 2020-0 Yes Inhale. Uni vers /umeclidin/ 7-31 ity of vilanter 01:02: [place] ([address]) albuterol 2020-0 Yes 2{puff} Inhale 2 U nivers (VENTOLIN) 7-31 Puffs ity of 90 01:02: every 6 [place] mcg/actuati (six) Medical on inhaler hours as Branc h needed for Wheezing or Shortness of Breath. omeprazole 2020-0 Yes 40mg Take 40 mg U nivers 40 mg 7-31 by mouth ity of capsule 01:02: daily. [address] Branch fluticasone 2020-0 Yes Inhale. Uni vers /umeclidin/ 7-31 ity of vilanter 01:02: [place] ([address]) omeprazole 2020-0 Yes 40mg Take 40 mg U nivers 40 mg 7-31 by mouth ity of capsule 01:02: daily. [address] Branch fluticasone 2020-0 Yes Inhale. Uni vers /umeclidin/ 7-31 ity of vilanter 01:02: [place] ([address]) omeprazole 2020-0 Yes 40mg Take 40 mg U nivers 40 mg 7-31 by mouth ity of capsule 01:02: daily. [address] Branch fluticasone 2020-0 Yes Inhale. Uni vers /umeclidin/ 7-31 ity of vilanter 01:02: [place] ([address]) omeprazole 2020-0 Yes 40mg Take 40 mg U nivers 40 mg 7-31 by mouth ity of capsule 01:02: daily. [address] fluticasone 2020-0 Yes Inhale. Uni vers /umeclidin/ 7- ity of vilanter 01:02: [place] ([address] Branch INHALE) omeprazole 2020-0 Yes 40mg Take 40 mg U nivers 40 mg 7-31 by mouth ity of capsule 01:02: daily. [address] fluticasone 2020-0 Yes Inhale. Uni vers /umeclidin/ - ity of vilanter 01:02: [place] ([address]) carvediloL 2020-0 2020- No [id number] 12.5mg Take 1 Univers 12.5 mg 7- 08-31 tablet by ity of tablet 00:00: 04:59 mouth 2 [place] 00 :00 (two) [facility] times [place] daily with meals for 30 days. carvediloL 2020-0 2020- No [id number] 12.5mg Take 1 Univers 12.5 mg 7- 08-31 tablet by ity of tablet 00:00: 04:59 mouth 2 [place] 00 :00 (two) Medical times [place] daily with meals for 30 days. predniSONE 2020-0 Yes 10mg 10 mg, Unive rs (DELTASONE) 7-30 Oral, ity of tablet 10 22:45: DAILY, [place] mg 00 First dose Medical on [facility] Branch 02/22/20 at 1745, Until Discontinu ed, Routine ipratropium 2020-0 Yes 3mL 3 mL, Unive rs -albuterol 7-30 Inhalation ity of (DUONEB) 21:00: , QID, [place] 0.5 mg-3 00 First dose Medic al mg(2.5 mg on [facility])/3 mL 02/22/20 at nebulizer 1600, solution 3 Until mL Discontinu ed, Routine ergocalcife 2020-0 Yes [id number] 50,000 Un bogdan rol 7-30 Units, ity of (vitamin 19:30: Oral, [place] d2) 00 QWEEKLY, Medical (CALCIFEROL First dose Br anch ) capsule on Maranda 50,000 02/22/20 at Units 1430, Until Discontinu ed, Routine loperamide 2020-0 Yes 2mg 2 mg, Univer s (IMODIUM 7-30 Oral, ity of A-D) 19:04: Q4HPRN, [place] capsule 2 12 Starting Medica l mg [facility] Branch 02/22/20 at 1404, Until Discontinu ed, [...] First dose Medic al NaCl 0.9% on [facility] Branch (NS) 100 mL 02/22/20 at MINI-BAG 0800, Until Discontinu ed, 100 mL carvediloL 2019-0 Yes 12.5mg 12.5 mg, U nivers (COREG) 02-21 Oral, BID ity of tablet 12.5 04:15: MEALS, [place] mg 00 First dose Medical on Wed Branch 02/21/20 at 2315, Until Discontinu ed, Routine fluticasone 2020-0 Yes 1{puff} 1 Puff, Univers propion-sean 02-21 Inhalation it y of meterol 04:15: , Q12H, [place] (ADVAIR) 00 First dose Medic al 250-50 on Wed Branch mcg/dose 02/21/20 at inhalation 2315, disk 1 Puff Until Discontinu ed, Routine
Use approved by (Faculty and pager): ADC PROVIDER ALPRAZolam 2020-0 Yes .5mg 0.5 mg, Univ ers (XANAX) 02-21 Oral, ity of tablet 0.5 04:00: BIDPRN, [place] mg 00 Starting Medical [employer] Branch 02/21/20 at 2300, Until Discontinu ed, Routine, anxiety venlafaxine 2019-0 2020- No 75mg 75 mg, Uni vers XR (EFFEXOR 7-30 07-30 Oral, TID, i ty of XR) 24 hr 03:45: 03:54 First dose [place] capsule 75 00 :51 on Wed Medical mg 02/21/20 at Branch 2245, Until Discontinu ed, Routine ipratropium 2019- No 3mL 3 mL, Univ ers -albuterol [...] TIDPRN, [place] 33 :27 Starting Medical [employer] Branch 02/21/20 at 1938, Until Wed02/21/20 at 2254, Routine, anxiety loperamide 2019- 2020- No [id number] 2mg Take 1 Univers 2 mg - 08-10 capsule by ity of capsule 00:00: 04:59 mouth [place] 00 :00 every 4 Medical (four) Branch hours as needed for Diarrhea for up to 10 days. loperamide 2019-0 2020- No [id number] 2mg Take 1 Univers 2 mg -30 08-10 capsule by ity of capsule 00:00: 04:59 mouth [place] 00 :00 every 4 Medical (four) Branch hours as needed for Diarrhea for up to 10 days. ALPRAZolam 2019-0 2020- No [id number] .5mg Take 1 Univers 0.5 mg - 08-05 tablet by ity of tablet 00:00: 04:59 mouth 3 [place] 00 :00 (three) Medical times Branch daily as needed (anxiety) for up to 5 days. ALPRAZolam 2020- No [id number] .5mg Take 1 Univers 0.5 mg 02-21 0805 tablet by ity of tablet 00:00: 04:59 mouth 3 [place] 00 :00 (three) Medical times [place] daily as needed (anxiety) for up to 5 days. ondansetron 2019- Yes 4mg 4 mg, Slow Univers (ZOFRAN 02-20 IV Push, ity of (PF)) 23:23: Q6HPRN, [place] injection 4 08 Starting Medi feliciano mg Wed Branch 02/21/20 at 1823, Until Discontinu ed, Routine, Nausea and Vomiting (N/V) HYDROcodone 2019- No 1{tbl} 1 tablet, Univers -acetaminop 02-20 Oral, ity of hen (NORCO 23:23: 23:22 Q6HPRN, [place] as 5) 5-325 mg 00 :00 Starting Medi feliciano tablet 1 Wed tablet 02/21/20 at 1823, Until Wed02/23/20 at 1822, Routine, Pain (scale 4-6) acetaminoph 2019- Yes 650mg 650 mg, Un bogdan en 02-20 Oral, ity of (TYLENOL) 23:22: Q6HPRN, [place] tablet 650 56 Starting Medic al mg Wed02/21/20 at 1822, Until Discontinu ed, Routine, Pain (scale 1-3) cefTRIAXone 2019- No 1000mg 1,000 mg, Univers (ROCEPHIN) 02-20 IV ity of 1,000 mg in 16:00: 03:51 [place], [place] NaCl 0.9% 00 :59 Q12H ABX, Medic al (NS) 50 mL [facility] dose [facility] MINI-BAG on Wed02/21/20 at 1100, Until Discontinu ed, 50 mL
R dee for Anti-Infec tive: Empiric Therapy for Suspected Infection< br>Empiric Therapy Site: Respirator y
Durat ion of therapy: 72 hours NaCl 0.9% 2020- No 1000mL at 999 Uni vers (NS) bolus 02-20 mL/hr, ity of infusion 16:00: 16:00 1,000 mL, [place] 1,000 mL 00 :00 IV Medical Piggyback, [place] ONCE, 1 dose, 02/21/20 at 1100, STAT doxycycline 2020-0 2020- No 100mg 100 mg, U nivers hyclate 02-14 Oral, ity of (Vibramycin 01:45: 00:41 ONCE, 1 [place] ) capsule 00 :00 dose, Wed Medic al 100 mg 02/14/20 at [place] 204, SHANE
Re ason for Anti-Infec tive: Documented Infection< br>Documen leann Infection Site: Respirator y
Durat ion of Therapy: 7 days ondansetron 2019-0 2020- No 4mg 4 mg, Slow Univers (ZOFRAN 02-14 IV Push, ity of (PF)) 00:45: 23:43 ONCE, 1 [place] injection 4 00 :00 dose, Wed Med ical mg 02/14/20 at [place] 194, SHANE acetaminoph 2019- 2020- No 650mg 650 [...] d 0 mL 00 :00 02/14/20 at [facility] 1900, [place] Routine iohexol 2019-0 2020- No 120mL 120 mL, Unive rs (OMNIPAQUE 02-13 Intravenou it y of 350 23:45: 23:30 s, ONCE, 1 [place] BULK-150 00 :00 dose, Wed Medica l mL) 02/14/20 at [place] injection 1845, 120 mL Routine NaCl 0.9% 2020-0 2020- No 500mL at 999 Univ ers (NS) bolus 02-13- mL/hr, 500 it y of infusion 23:15: 23:22 mL, IV [place] 500 mL 00 :00 Infusion, Medical ONCE, 1 Branch dose, 02/14/20 at 1815, STAT NaCl 0.9% 2020-0 2020- No 500mL at 999 Univ ers (NS) bolus 02-13 07-22 mL/hr, 500 it y of infusion 22:15: 21:44 mL, IV [place] 500 mL 00 :00 Infusion, Medical ONCE, 1 Branch dose, Wed02/14/20 at 1715, STAT omeprazole 2020-0 Yes 40mg Take 40 mg U nivers 40 mg 7-22 by mouth ity of capsule 19:27: daily. [place] [address] Medical Branch fluticasone 2020-0 Yes Inhale. Uni vers /umeclidin/ 02-13 ity of vilanter 19:27: [place] ([place] [address] Medical ELLIPTA Branch INHALE) omeprazole 2020-0 Yes 40mg Take 40 mg U nivers 40 mg 7-22 by mouth ity of capsule 19:27: daily. [address] Branch fluticasone 2020-0 Yes Inhale. Uni vers /umeclidin/ 02-13 ity of vilanter 19:27: [place] ([place] [address] Medical ELLIPTA Branch INHALE) omeprazole 2020-0 Yes 40mg Take 40 mg U nivers 40 mg 7-22 by mouth ity of capsule 19:27: daily. [address] Branch fluticasone 2020-0 Yes Inhale. Uni vers /umeclidin/ 02-13 ity of vilanter 19:27: [place] ([place] [address] Medical ELLIPTA Branch INHALE) omeprazole 2020-0 Yes 40mg Take 40 mg U nivers 40 mg 7-22 by mouth ity of capsule 19:27: daily. [address] Branch fluticasone 2020-0 Yes Inhale. Uni vers /umeclidin/ 02-13 ity of vilanter 19:27: [place] ([place] [address] Medical ELLIPTA Branch INHALE) omeprazole 2020-0 Yes 40mg Take 40 mg U nivers 40 mg 7-22 by mouth ity of capsule 19:27: daily. [address] Branch fluticasone 2020-0 Yes Inhale. Uni vers /umeclidin/ 02-13 ity of vilanter 19:27: [place] ([place] [address] Medical ELLIPTA Branch INHALE) omeprazole 2020-0 Yes 40mg Take 40 mg U nivers 40 mg 7-22 by mouth ity of capsule 19:27: daily. [address] Branch fluticasone 2020-0 Yes Inhale. Uni vers /umeclidin/ 7-22 ity of vilanter 19:27: [place] ([address] INHALE) omeprazole 2020-0 Yes 40mg Take 40 mg U nivers 40 mg - by mouth ity of capsule 19:27: daily. [address] fluticasone 2020-0 Yes Inhale. Uni vers /umeclidin/ 02-13 ity of vilanter 19:27: [place] ([address] INHALE) doxycycline 2019-0 2020- No [id number] 100mg Take 1 Univers hyclate 100 7- 07-30 capsule by i ty of mg capsule 00:00: 04:59 mouth 2 [place] 00 :00 (two) Medical times Branch daily for 7 days. doxycycline 2020-0 2020- No [id number] 100mg Take 1 Univers hyclate 100 7- 07-30 capsule by i ty of mg capsule 00:00: 04:59 mouth 2 [place] 00 :00 (two) Medical times Branch daily for 7 days. doxycycline 2020-0 2020- No [id number] 100mg Take 1 Univers hyclate 100 - 07-30 capsule by i ty of mg capsule 00:00: 04:59 mouth 2 [place] 00 :00 (two) Medical times Branch daily for 7 days. doxycycline 2020-0 2020- No [id number] 100mg Take 1 Univers hyclate 100 - 07-30 capsule by i ty of mg capsule 00:00: 04:59 mouth 2 [place] 00 :00 (two) Medical times Branch daily for 7 days. doxycycline 2020-0 2020- No [id number] 100mg Take 1 Univers hyclate 100 02-13 07-29 capsule by i ty of mg capsule 00:00: 00:00 mouth 2 [place] 00 :00 (two) Medical times Branch daily for 7 days. morpHINE 2019-0 2020- No 4mg 4 mg, Slow Un bogdan injection 4 01-02-10 IV Push, ity of mg 20:45: 19:33 ONCE, 1 [place] 00 :00 dose, Wed Medical 01/03/20 at Branch 1545, STAT ondansetron 2019- 2020- No 4mg 4 mg, Slow Univers (ZOFRAN 01-02-10 IV Push, ity of (PF)) 20:45: 19:33 ONCE, 1 [place] injection 4 00 :00 dose, Wed Med ical mg 01/03/20 at Branch 1545, SHANE iohexol 2020-0 2020- No 100mL 100 mL, Unive rs (OMNIPAQUE 01-02 Intravenou it y of 350 19:00: 18:55 [...] at Branch 1315, SHANE ondansetron 2020-0 Yes [id number] 4mg Take 1 Univers 4 mg 6-10 tablet by ity of disintegrat 00:00: mouth [place] ing tablet 00 every 4 Medica l (four) Branch hours as needed for Nausea and Vomiting (N/V). ondansetron 2020-0 Yes [id number] 4mg Take 1 Univers 4 mg 6-10 tablet by ity of disintegrat 00:00: mouth [place] ing tablet 00 every 4 Medica l (four) Branch hours as needed for Nausea and Vomiting (N/V). ondansetron 2020-0 Yes [id number] 4mg Take 1 Univers 4 mg 6-10 tablet by ity of disintegrat 00:00: mouth [place] ing tablet 00 every 4 Medica l (four) Branch hours as needed for Nausea and Vomiting (N/V). ondansetron 2020-0 Yes [id number] 4mg Take 1 Univers 4 mg 6-10 tablet by ity of disintegrat 00:00: mouth [place] ing tablet 00 every 4 Medica l (four) Branch hours as needed for Nausea and Vomiting (N/V). ondansetron 2020-0 Yes [id number] 4mg Take 1 Univers 4 mg 6-10 tablet by ity of disintegrat 00:00: mouth [place] ing tablet 00 every 4 Medica l (four) Branch hours as needed for Nausea and Vomiting (N/V). ondansetron 2020-0 Yes [id number] 4mg Take 1 Univers 4 mg 6-10 tablet by ity of disintegrat 00:00: mouth [place] ing tablet 00 every 4 Medica l (four) Branch hours as needed for Nausea and Vomiting (N/V). ondansetron 2020-0 Yes [id number] 4mg Take 1 Univers 4 mg 6-10 tablet by ity of disintegrat 00:00: mouth [place] ing tablet 00 every 4 Medica l (four) Branch hours as needed for Nausea and Vomiting (N/V). ondansetron 2020-0 Yes [id number] 4mg Take 1 Univers 4 mg 6-10 tablet by ity of disintegrat 00:00: mouth [place] ing tablet 00 every 4 Medica l (four) Branch hours as needed for Nausea and Vomiting (N/V). ondansetron 2020-0 Yes [id number] 4mg Take 1 Univers 4 mg 6-10 tablet by ity of disintegrat 00:00: mouth [place] ing tablet 00 every 4 Medica l (four) Branch hours as needed for Nausea and Vomiting (N/V). ondansetron 2020-0 Yes [id number] 4mg Take 1 Univers 4 mg 6-10 tablet by ity of disintegrat 00:00: mouth [place] ing tablet 00 every 4 Medica l (four) Branch hours as needed for Nausea and Vomiting (N/V). ondansetron 2020-0 Yes [id number] 4mg Take 1 Univers 4 mg 6-10 tablet by ity of disintegrat 00:00: mouth [place] ing tablet 00 every 4 Medica l (four) Branch hours as needed for Nausea and Vomiting (N/V). ondansetron 2020-0 Yes [id number] 4mg Take 1 Univers 4 mg 6-10 tablet by ity of disintegrat 00:00: mouth [place] ing tablet 00 every 4 Medica l (four) Branch hours as needed for Nausea and Vomiting (N/V). ondansetron 2020-0 Yes [id number] 4mg Take 1 Univers 4 mg 6-10 tablet by ity of disintegrat 00:00: mouth [place] ing tablet 00 every 4 Medica l (four) Branch hours as needed for Nausea and Vomiting (N/V). ondansetron 2020-0 Yes [id number] 4mg Take 1 Univers 4 mg 6-10 tablet by ity of disintegrat 00:00: mouth [place] ing tablet 00 every 4 Medica l (four) Branch hours as needed for Nausea and Vomiting (N/V). ondansetron 2020-0 Yes [id number] 4mg Take 1 Univers 4 mg 6-10 tablet by ity of disintegrat 00:00: mouth [place] ing tablet 00 every 4 Medica l (four) Branch hours as needed for Nausea and Vomiting (N/V). ondansetron 2020-0 Yes [id number] 4mg Take 1 Univers 4 mg 6-10 tablet by ity of disintegrat 00:00: mouth [place] ing tablet 00 every 4 Medica l (four) Branch hours as needed for Nausea and Vomiting (N/V). ondansetron 2020-0 Yes [id number] 4mg Take 1 Univers 4 mg 6-10 tablet by ity of disintegrat 00:00: mouth [place] ing tablet 00 every 4 Medica l (four) Branch hours as needed for Nausea and Vomiting (N/V). ondansetron 2020-0 Yes [id number] 4mg Take 1 Univers 4 mg 6-10 tablet by ity of disintegrat 00:00: mouth [place] ing tablet 00 every 4 Medica l (four) Branch hours as needed for Nausea and Vomiting (N/V). ondansetron 2020-0 Yes [id number] 4mg Take 1 Univers 4 mg 6-10 [...] by mouth ity of capsule 20:24: daily. [address] fluticasone 2020-0 Yes Inhale. Uni vers /umeclidin/ 5-15 ity of vilanter 20:24: [place] ([address] ELLIPTA Branch INHALE) albuterol 2020-0 Yes [...] by mouth ity of capsule 20:24: daily. [address] fluticasone 2020-0 Yes Inhale. Uni vers /umeclidin/ 5-15 ity of vilanter 20:24: [place] ([facility] ELLIPTA Branch INHALE) albuterol 2020-0 Yes 2{puff} [...] by mouth ity of capsule 20:24: daily. [address] fluticasone 2020-0 Yes Inhale. Uni vers /umeclidin/ 5-15 ity of vilanter 20:24: [place] ([address] ELLIPTA Branch INHALE) albuterol 2020-0 Yes [...] by mouth ity of capsule 20:24: daily. [address] fluticasone 2020-0 Yes Inhale. Uni vers /umeclidin/ 5-15 ity of vilanter 20:24: [place] ([address]ALE) albuterol 2020-0 Yes 2{puff} [...] by mouth ity of capsule 20:24: daily. [address] Branch fluticasone 2020-0 Yes Inhale. Uni vers /umeclidin/ 5-15 ity of vilanter 20:24: [place] ([facility] 14 Medical ELLIPTA Branch INHALE) albuterol 2020-0 [...] by mouth ity of capsule 20:24: daily. [address] fluticasone 2020-0 Yes Inhale. Uni vers /umeclidin/ 5-15 ity of vilanter 20:24: [place] ([address]) albuterol 2020-0 Yes 2{puff} [...] by mouth ity of capsule 20:24: daily. [address] fluticasone 2020-0 Yes Inhale. Uni vers /umeclidin/ 5-15 ity of vilanter 20:24: [place] ([address] ELLIPTA Branch INHALE) albuterol 2020-0 Yes [...] by mouth ity of capsule 20:24: daily. [address] fluticasone 2020-0 Yes Inhale. Uni vers /umeclidin/ 5-15 ity of vilanter 20:24: [place] ([address] Branch INHALE) albuterol 2020-0 Yes 2{puff} [...] by mouth ity of capsule 20:24: daily. [address] fluticasone 2020-0 Yes Inhale. Uni vers /umeclidin/ 5-15 ity of vilanter 20:24: [place] ([address] Branch INHALE) albuterol 2020-0 Yes 2{puff} [...] by mouth ity of capsule 20:24: daily. [place] 14 Medical Branch fluticasone 2020-0 Yes Inhale. Uni vers /umeclidin/ 5-15 ity of vilanter 20:24: [place] ([facility] 14 Medical ELLIPTA Branch INHALE) albuterol [...] Bran ch (NS) 0745, 50 piggyback mL simethicone 2020-0 Yes [id number] 80mg Take 1 Univers 80 mg 5-15 tablet by ity of chewable 00:00: mouth [place] tablet 00 after Medical meals and Branch at bedtime. HYDROcodone 2020-0 Yes [id number] 7.5mg Take 15 mL Univers -acetaminop 5-15 by mouth ity of hen 7.5-325 00:00: every 4 [place] mg/15 mL 00 (four) Medical solution hours as Branch needed for Pain (scale 4-6) or Pain (scale 7-10). proMETHazin 2020-0 Yes [id number] 12.5mg Take 1 Univers e 12.5 mg 5-15 tablet by ity o f tablet 00:00: mouth [place] 00 every 6 Medical (six) Branch hours as needed for Nausea and Vomiting (N/V) or N/V alternatin g with Ondansetro n. simethicone 2020-0 Yes [id number] 80mg Take 1 Univers 80 mg 5-15 tablet by ity of chewable 00:00: mouth [place] tablet 00 after Medical meals and Branch at bedtime. HYDROcodone 2020-0 Yes [id number] 7.5mg Take 15 mL Univers -acetaminop 5-15 by mouth ity of hen 7.5-325 00:00: every 4 [place] mg/15 mL 00 (four) Medical solution hours as Branch needed for Pain (scale 4-6) or Pain (scale 7-10). proMETHazin 2020-0 Yes [id number] 12.5mg Take 1 Univers e 12.5 mg 5-15 tablet by ity o f tablet 00:00: mouth [place] 00 every 6 Medical (six) Branch hours as needed for Nausea and Vomiting (N/V) or N/V alternatin g with Ondansetro n. simethicone 2020-0 Yes [id number] 80mg Take 1 Univers 80 mg 5-15 tablet by ity of chewable 00:00: mouth [place] tablet 00 after Medical meals and Branch at bedtime. HYDROcodone 2020-0 Yes [id number] 7.5mg Take 15 mL Univers -acetaminop 5-15 by mouth ity of hen 7.5-325 00:00: every 4 [place] mg/15 mL 00 (four) Medical solution hours as Branch needed for Pain (scale 4-6) or Pain (scale 7-10). proMETHazin 2020-0 Yes [id number] 12.5mg Take 1 Univers e 12.5 mg 5-15 tablet by ity o f tablet 00:00: mouth [place] 00 every 6 Medical (six) Branch hours as needed for Nausea and Vomiting (N/V) or N/V alternatin g with Ondansetro n. simethicone 2020-0 Yes [id number] 80mg Take 1 Univers 80 mg 5-15 tablet by ity of chewable 00:00: mouth [place] tablet 00 after Medical meals and Branch at bedtime. HYDROcodone 2020-0 Yes [id number] 7.5mg Take 15 mL Univers -acetaminop 5-15 by mouth ity of hen 7.5-325 00:00: every 4 [place] mg/15 mL 00 (four) Medical solution hours as Branch needed for Pain (scale 4-6) or Pain (scale 7-10). proMETHazin 2020-0 Yes [id number] 12.5mg Take 1 Univers e 12.5 mg 5-15 tablet by ity o f tablet 00:00: mouth [place] 00 every 6 Medical (six) Branch hours as needed for Nausea and Vomiting (N/V) or N/V alternatin g with Ondansetro n. simethicone 2020-0 Yes [id number] 80mg Take 1 Univers 80 mg 5-15 tablet by ity of chewable 00:00: mouth [place] tablet 00 after Medical meals and Branch at bedtime. HYDROcodone 2020-0 Yes [id number] 7.5mg Take 15 mL Univers -acetaminop 5-15 by mouth ity of hen 7.5-325 00:00: every 4 [place] mg/15 mL 00 (four) Medical solution hours as Branch needed for Pain (scale 4-6) or Pain (scale 7-10). proMETHazin 2020-0 Yes [id number] 12.5mg Take 1 Univers e 12.5 mg 5-15 tablet by ity o f tablet 00:00: mouth [place] 00 every 6 Medical (six) Branch hours as needed for Nausea and Vomiting (N/V) or N/V alternatin g with Ondansetro n. simethicone 2020-0 Yes [id number] 80mg Take 1 Univers 80 mg 5-15 tablet by ity of chewable 00:00: mouth [place] tablet 00 after Medical meals and Branch at bedtime. HYDROcodone 2020-0 Yes [id number] 7.5mg Take 15 mL Univers -acetaminop 5-15 by mouth ity of hen 7.5-325 00:00: every 4 [place] mg/15 mL 00 (four) Medical solution hours as Branch needed for Pain (scale 4-6) or Pain (scale 7-10). proMETHazin 2020-0 Yes [id number] 12.5mg Take 1 Univers e 12.5 mg 5-15 tablet by ity o f tablet 00:00: mouth [place] 00 every 6 Medical (six) Branch hours as needed for Nausea and Vomiting (N/V) or N/V alternatin g with Ondansetro n. simethicone 2020-0 Yes [id number] 80mg Take 1 Univers 80 mg 5-15 tablet by ity of chewable 00:00: mouth [place] tablet 00 after Medical meals and Branch at bedtime. HYDROcodone 2020-0 Yes [id number] 7.5mg Take 15 mL Univers -acetaminop 5-15 by mouth ity of hen 7.5-325 00:00: every 4 [place] mg/15 mL 00 (four) Medical solution hours as Branch needed for Pain (scale 4-6) or Pain (scale 7-10). proMETHazin 2020-0 Yes [id number] 12.5mg Take 1 Univers e 12.5 mg 5-15 tablet by ity o f tablet 00:00: mouth [place] 00 every 6 Medical (six) Branch hours as needed for Nausea and Vomiting (N/V) or N/V alternatin g with Ondansetro n. simethicone 2020-0 Yes [id number] 80mg Take 1 Univers 80 mg 5-15 tablet by ity of chewable 00:00: mouth [place] tablet 00 after Medical meals and Branch at bedtime. HYDROcodone 2020-0 Yes [id number] 7.5mg Take 15 mL Univers -acetaminop 5-15 by mouth ity of hen 7.5-325 00:00: every 4 [place] mg/15 mL 00 (four) Medical solution hours as Branch needed for Pain (scale 4-6) or Pain (scale 7-10). proMETHazin 2020-0 Yes [id number] 12.5mg Take 1 Univers e 12.5 mg 5-15 tablet by ity o f tablet 00:00: mouth [place] 00 every 6 Medical (six) Branch hours as needed for Nausea and Vomiting (N/V) or N/V alternatin g with Ondansetro n. simethicone 2020-0 Yes [id number] 80mg Take 1 Univers 80 mg 5-15 tablet by ity of chewable 00:00: mouth [place] tablet 00 after Medical meals and Branch at bedtime. HYDROcodone 2020-0 Yes [id number] 7.5mg Take 15 mL Univers -acetaminop 5-15 by mouth ity of hen 7.5-325 00:00: every 4 [place] mg/15 mL 00 (four) Medical solution hours as Branch needed for Pain (scale 4-6) or Pain (scale 7-10). proMETHazin 2020-0 Yes [id number] 12.5mg Take 1 Univers e 12.5 mg 5-15 tablet by ity o f tablet 00:00: mouth [place] 00 every 6 Medical (six) Branch hours as needed for Nausea and Vomiting (N/V) or N/V alternatin g with Ondansetro n. simethicone 2020-0 Yes [id number] 80mg Take 1 Univers 80 mg 5-15 tablet by ity of chewable 00:00: mouth [place] tablet 00 after Medical meals and Branch at bedtime. HYDROcodone 2020-0 Yes [id number] 7.5mg Take 15 mL Univers -acetaminop 5-15 by mouth ity of hen 7.5-325 00:00: every 4 [place] mg/15 mL 00 (four) Medical solution hours as Branch needed for Pain (scale 4-6) or Pain (scale 7-10). proMETHazin 2020-0 Yes [id number] 12.5mg Take 1 Univers e 12.5 mg 5-15 tablet by ity o f tablet 00:00: mouth [place] 00 every 6 Medical (six) Branch hours as needed for Nausea and Vomiting (N/V) or N/V alternatin g with Ondansetro n. simethicone 2020-0 Yes [id number] 80mg Take 1 Univers 80 mg 5-15 tablet by ity of chewable 00:00: mouth [place] tablet 00 after Medical meals and Branch at bedtime. HYDROcodone 2020-0 Yes [id number] 7.5mg Take 15 mL Univers -acetaminop 5-15 by mouth ity of hen 7.5-325 00:00: every 4 [place] mg/15 mL 00 (four) Medical solution hours as Branch needed for Pain (scale 4-6) or Pain (scale 7-10). proMETHazin 2020-0 Yes [id number] 12.5mg Take 1 Univers e 12.5 mg 5-15 tablet by ity o f tablet 00:00: mouth [place] 00 every 6 Medical (six) Branch hours as needed for Nausea and Vomiting (N/V) or N/V alternatin g with Ondansetro n. simethicone 2020-0 Yes [id number] 80mg Take 1 Univers 80 mg 5-15 tablet by ity of chewable 00:00: mouth [place] tablet 00 after Medical meals and Branch at bedtime. HYDROcodone 2020-0 Yes [id number] 7.5mg Take 15 mL Univers -acetaminop 5-15 by mouth ity of hen 7.5-325 00:00: every 4 [place] mg/15 mL 00 (four) Medical solution hours as Branch needed for Pain (scale 4-6) or Pain (scale 7-10). proMETHazin 2020-0 Yes [id number] 12.5mg Take 1 Univers e 12.5 mg 5-15 tablet by ity o f tablet 00:00: mouth [place] 00 every 6 Medical (six) Branch hours as needed for Nausea and Vomiting (N/V) or N/V alternatin g with Ondansetro n. simethicone 2020-0 Yes [id number] 80mg Take 1 Univers 80 mg 5-15 tablet by ity of chewable 00:00: mouth [place] tablet 00 after Medical meals and Branch at bedtime. HYDROcodone 2020-0 Yes [id number] 7.5mg Take 15 mL Univers -acetaminop 5-15 by mouth ity of hen 7.5-325 00:00: every 4 [place] as mg/15 mL 00 (four) Medical solution hours as Branch needed for Pain (scale 4-6) or Pain (scale 7-10). proMETHazin 2020-0 Yes [id number] 12.5mg Take 1 Univers e 12.5 mg 5-15 tablet by ity o f tablet 00:00: mouth [place] 00 every 6 Medical (six) Branch hours as needed for Nausea and Vomiting (N/V) or N/V alternatin g with Ondansetro n. simethicone 2020-0 Yes [id number] 80mg Take 1 Univers 80 mg 5-15 tablet by ity of chewable 00:00: mouth [place] tablet 00 after Medical meals and Branch at bedtime. HYDROcodone 2020-0 Yes [id number] 7.5mg Take 15 mL Univers -acetaminop 5-15 by mouth ity of hen 7.5-325 00:00: every 4 [place] mg/15 mL 00 (four) Medical solution hours as Branch needed for Pain (scale 4-6) or Pain (scale 7-10). proMETHazin 2020-0 Yes [id number] 12.5mg Take 1 Univers e 12.5 mg 5-15 tablet by ity o f tablet 00:00: mouth [place] 00 every 6 Medical (six) Branch hours as needed for Nausea and Vomiting (N/V) or N/V alternatin g with Ondansetro n. simethicone 2020-0 Yes [id number] 80mg Take 1 Univers 80 mg 5-15 tablet by ity of chewable 00:00: mouth [place] tablet 00 after Medical meals and Branch at bedtime. HYDROcodone 2020-0 Yes [id number] 7.5mg Take 15 mL Univers -acetaminop 5-15 by mouth ity of hen 7.5-325 00:00: every 4 [place] as mg/15 mL 00 (four) Medical solution hours as Branch needed for Pain (scale 4-6) or Pain (scale 7-10). proMETHazin 2020-0 Yes [id number] 12.5mg Take 1 Univers e 12.5 mg 5-15 tablet by ity o f tablet 00:00: mouth [place] 00 every 6 Medical (six) Branch hours as needed for Nausea and Vomiting (N/V) or N/V alternatin g with Ondansetro n. simethicone 2020-0 Yes [id number] 80mg Take 1 Univers 80 mg 5-15 tablet by ity of chewable 00:00: mouth [place] tablet 00 after Medical meals and Branch at bedtime. HYDROcodone 2020-0 Yes [id number] 7.5mg Take 15 mL Univers -acetaminop 5-15 by mouth ity of hen 7.5-325 00:00: every 4 [place] mg/15 mL 00 (four) Medical solution hours as Branch needed for Pain (scale 4-6) or Pain (scale 7-10). proMETHazin 2020-0 Yes [id number] 12.5mg Take 1 Univers e 12.5 mg 5-15 tablet by ity o f tablet 00:00: mouth [place] 00 every 6 Medical (six) Branch hours as needed for Nausea and Vomiting (N/V) or N/V alternatin g with Ondansetro n. simethicone 2020-0 Yes [id number] 80mg Take 1 Univers 80 mg 5-15 tablet by ity of chewable 00:00: mouth [place] tablet 00 after Medical meals and Branch at bedtime. HYDROcodone 2020-0 Yes [id number] 7.5mg Take 15 mL Univers -acetaminop 5-15 by mouth ity of hen 7.5-325 00:00: every 4 [place] as mg/15 mL 00 (four) Medical solution hours as Branch needed for Pain (scale 4-6) or Pain (scale 7-10). proMETHazin 2020-0 Yes [id number] 12.5mg Take 1 Univers e 12.5 mg 5-15 tablet by ity o f tablet 00:00: mouth [place] 00 every 6 Medical (six) Branch hours as needed for Nausea and Vomiting (N/V) or N/V alternatin g with Ondansetro n. simethicone 2020-0 Yes [id number] 80mg Take 1 Univers 80 mg 5-15 tablet by ity of chewable 00:00: mouth [place] tablet 00 after Medical meals and Branch at bedtime. HYDROcodone 2020-0 Yes [id number] 7.5mg Take 15 mL Univers -acetaminop 5-15 by mouth ity of hen 7.5-325 00:00: every 4 [place] mg/15 mL 00 (four) Medical solution hours as Branch needed for Pain (scale 4-6) or Pain (scale 7-10). proMETHazin 2020-0 Yes [id number] 12.5mg Take 1 Univers e 12.5 mg 5-15 tablet by ity o f tablet 00:00: mouth [place] 00 every 6 Medical (six) Branch hours as needed for Nausea and Vomiting (N/V) or N/V alternatin g with Ondansetro n. simethicone 2020-0 Yes [id number] 80mg Take 1 Univers 80 mg 5-15 tablet by ity of chewable 00:00: mouth [place] tablet 00 after Medical meals and Branch at bedtime. HYDROcodone 2020-0 Yes [id number] 7.5mg Take 15 mL Univers -acetaminop 5-15 by mouth ity of hen 7.5-325 00:00: every 4 [place] as mg/15 mL 00 (four) Medical solution hours as Branch needed for Pain (scale 4-6) or Pain (scale 7-10). proMETHazin 2020-0 Yes [id number] 12.5mg Take 1 Univers e 12.5 mg 5-15 tablet by ity o f tablet 00:00: mouth [place] 00 every 6 Medical (six) Branch hours as needed for Nausea and Vomiting (N/V) or N/V alternatin g with Ondansetro n. simethicone 2020-0 Yes [id number] 80mg Take 1 Univers 80 mg 5-15 tablet by ity of chewable 00:00: mouth [place] tablet 00 after Medical meals and Branch at bedtime. HYDROcodone 2020-0 Yes [id number] 7.5mg Take 15 mL Univers -acetaminop 5-15 by mouth ity of hen 7.5-325 00:00: every 4 [place] as mg/15 mL 00 (four) Medical solution hours as Branch needed for Pain (scale 4-6) or Pain (scale 7-10). proMETHazin 2020-0 Yes [id number] 12.5mg Take 1 Univers e 12.5 mg 5-15 tablet by ity o f tablet 00:00: mouth [place] 00 every 6 Medical (six) Branch hours as needed for Nausea and Vomiting (N/V) or N/V alternatin g with Ondansetro n. simethicone 2020-0 Yes [id number] 80mg Take 1 Univers 80 mg 5-15 tablet by ity of chewable 00:00: mouth [place] tablet 00 after Medical meals and Branch at bedtime. HYDROcodone 2020-0 Yes [id number] 7.5mg Take 15 mL Univers -acetaminop 5-15 by mouth ity of hen 7.5-325 00:00: every 4 [place] as mg/15 mL 00 (four) Medical solution hours as Branch needed for Pain (scale 4-6) or Pain (scale 7-10). proMETHazin 2020-0 Yes [id number] 12.5mg Take 1 Univers e 12.5 mg 5-15 tablet by ity o f tablet 00:00: mouth [place] 00 every 6 Medical (six) Branch hours as needed for Nausea and Vomiting (N/V) or N/V alternatin g with Ondansetro n. simethicone 2020-0 Yes [id number] 80mg Take 1 Univers 80 mg 5-15 tablet by ity of chewable 00:00: mouth [place] tablet 00 after Medical meals and Branch at bedtime. HYDROcodone 2020-0 Yes [id number] 7.5mg Take 15 mL Univers -acetaminop 5-15 by mouth ity of hen 7.5-325 00:00: every 4 [place] as mg/15 mL 00 (four) Medical solution hours as Branch needed for Pain (scale 4-6) or Pain (scale 7-10). proMETHazin 2020-0 Yes [id number] 12.5mg Take 1 Univers e 12.5 mg 5-15 tablet by ity o f tablet 00:00: mouth [place] 00 every 6 Medical (six) Branch hours as needed for Nausea and Vomiting (N/V) or N/V alternatin g with Ondansetro n. simethicone 2020-0 Yes [id number] 80mg Take 1 Univers 80 mg 5-15 tablet by ity of chewable 00:00: mouth [place] tablet 00 after Medical meals and Branch at bedtime. HYDROcodone 2020-0 Yes [id number] 7.5mg Take 15 mL Univers -acetaminop 5-15 by mouth ity of hen 7.5-325 00:00: every 4 [place] as mg/15 mL 00 (four) Medical solution hours as Branch needed for Pain (scale 4-6) or Pain (scale 7-10). proMETHazin 2020-0 Yes [id number] 12.5mg Take 1 Univers e 12.5 mg 5-15 tablet by ity o f tablet 00:00: mouth [place] 00 every 6 Medical (six) Branch hours as needed for Nausea and Vomiting (N/V) or N/V alternatin g with Ondansetro n. simethicone 2020-0 Yes [id number] 80mg Take 1 Univers 80 mg 5-15 tablet by ity of chewable 00:00: mouth [place] tablet 00 after Medical meals and Branch at bedtime. HYDROcodone 2020-0 Yes [id number] 7.5mg Take 15 mL Univers -acetaminop 5-15 by mouth ity of hen 7.5-325 00:00: every 4 [place] as mg/15 mL 00 (four) Medical solution hours as Branch needed for Pain (scale 4-6) or Pain (scale 7-10). proMETHazin 2020-0 Yes [id number] 12.5mg Take 1 Univers e 12.5 mg 5-15 tablet by ity o f tablet 00:00: mouth [place] 00 every 6 Medical (six) Branch hours as needed for Nausea and Vomiting (N/V) or N/V alternatin g with Ondansetro n. simethicone 2020-0 Yes [id number] 80mg Take 1 Univers 80 mg 5-15 tablet by ity of chewable 00:00: mouth [place] tablet 00 after Medical meals and Branch at bedtime. HYDROcodone 2020-0 Yes [id number] 7.5mg Take 15 mL Univers -acetaminop 5-15 by mouth ity of hen 7.5-325 00:00: every 4 [place] as mg/15 mL 00 (four) Medical solution hours as Branch needed for Pain (scale 4-6) or Pain (scale 7-10). proMETHazin 2020-0 Yes [id number] 12.5mg Take 1 Univers e 12.5 mg 5-15 tablet by ity o f tablet 00:00: mouth [place] 00 every 6 Medical (six) Branch hours as needed for Nausea and Vomiting (N/V) or N/V alternatin g with Ondansetro n. ipratropium 2020-0 Yes .5mg 0.5 mg, Uni vers (ATROVENT) 5-14 Inhalation ity of 0.02 % 15:10: , Q4HPRN, [place] nebulizer 00 Starting Medica l solution [place] Branch 0.5 mg 5/14/20 at 1010, Until Discontinu ed, Routine, Wheezing, Shortness of Breath proMETHazin 2020-0 Yes 12.5mg 12.5 mg, [facility] e 12-06 Oral, ity of (PHENERGAN) 12:44: Q4HPRN, [place] as tablet 12.5 01 Starting Medi feliciano mg [facility] [place] 12/07/19 at 0744, Until Discontinu ed, Routine, Nausea and Vomiting (N/V), N/V alternatin g with Ondansetro n albuterol 2020-0 Yes 2.5mg 2.5 mg, Univ ers (PROVENTIL) 12-05 Inhalation it y of 2.5 mg /3 22:45: , Q4HPRN, [place] as mL (0.083 00 Starting Medica l %) [facility] nebulizer 12/06/19 at solution 1745, 2.5 mg Until Discontinu ed, Routine, Shortness of Breath, Wheezing ALPRAZolam 2019-0 Yes .5mg 0.5 mg, [facility] ers (XANAX) 12-05 Oral, ity of tablet 0.5 19:33: BIDPRN, [place] mg [address] [facility] 12/06/19 at 1433, Until Discontinu ed, Routine, anxiety acetaminoph 2019-0 Yes 650mg 650 mg, Un bogdan en 12-05 Oral, ity of (TYLENOL) 19:25: Q4HPRN, [place] 160 mg/5 mL 38 Starting Medi feliciano liquid 650 [facility] 12/06/19 at 1425, Until Discontinu ed, Routine, Pain (scale 1-3) venlafaxine 2019-0 Yes 75mg 75 mg, Univ ers (EFFEXOR) 12-05 Oral, TID, ity of tablet 75 01:00: First dose [place] mg 00 on Wed Medical 12/05/19 at Branch 1999, Until Discontinu ed famotidine 2019-0 2020- No 20mg 20 mg, Univ ers (PEPCID 12-05 05-15 Slow IV ity [...] 5-12 IV Push, ity of mg 21:29: [place], [place] 52 Starting Medical Tue Branch 12/05/19 at [...] (scale 4-6) phenol 2020-0 Yes 1{spray 1 [place], Univ ers (SORE -12 } Oral, PRN, ity of THROAT 21:07: Starting [place] (PHENOL)) 21 Tue Medical 1.4 % spray 12/05/19 at Br anch bottle 1 1607, [place] Until Discontinu ed, Routine, Sore throat barium [...] mL 12/05/19 at Branch 1430, Routine heparin 2020-0 Yes 5000U 5,000 Univers (porcine) 12-04 Units, ity of injection 19:00: Subcutaneo [place] 5,000 Units 00 us, Q8H, Medi feliciano First dose Branch on Wed12/05/19 at 1400, Until Discontinu ed, Routine hydralAZINE 2020-0 Yes 10mg 10 mg, Univ ers (APRESOLINE 12 Intravenou it y of ) injection 17:06: [...] No 5mg 5 mg, Univ ers (APRESOLINE 5-12 05-12 Intravenou i ty of ) injection 15:15: 16:25 s, PRN, [place] 5 mg 28 :41 Starting Medical Tue Branch 12/05/19 at 1015, Until e 12/05/19 at 1125, Routine, Hypertensi on, prn once for systolic bp >185, PACU D5W 0.45% 2020-0 Yes IV Univers NaCl 5-12 Infusion, ity of (1/2NS) 1 L 15:15: at 100 [place] + KCL 20 00 mL/hr, Medical mEq CONTINUOUS Branch , Starting Wed12/05/19 at 1015, Until Discontinu ed, Routine HYDROmorpho 2019-0 2020- No .2mg 0.2 mg, Un bogdan ne 12-04 05-12 Slow IV ity of (DILAUDID) 15:10: 16:25 Push, [place] injection 21 :41 Q5MIN PRN, Medi feliciano 0.2 mg 10 doses, Branch Starting [facility] 12/05/19 at 1010, Until Wed12/05/19 at 1125, Routine, Pain (scale 7-10), PACU
Us e approved by (Faculty): PACU USE -ANESTHESI A SERVICE-HY DROMORPHON E INJECTIONS FENTanyl PF 2019-0 2020- No 25ug 25 mcg, Un bogdan (SUBLIMAZE 12-04-12 Slow IV ity o f (PF)) 15:10: 16:25 Push, [place] injection 21 :41 Q5MIN PRN, Medi feliciano 25 mcg 4 doses, Branch Starting [facility] 12/05/19 at 1010, Until Wed12/05/19 at 1125, Routine, Pain (scale 4-6), PACU morpHINE 2019-0 2020- No 4mg 4 mg, Slow Un bogdan injection 4 12-04 05-12 IV Push, ity of mg 14:59: 21:30 Q4HPRN, [place] 25 :16 Starting Medical e Branch 12/05/19 at 0959, Until e 12/05/19 at 1630, Routine, Pain (scale 7-10) ondansetron 2019-0 Yes 4mg 4 mg, Slow Univers (ZOFRAN [...] by mouth ity of capsule 20:55: daily. [address] omeprazole 2020-0 Yes 40mg Take 40 mg U nivers 40 mg 4-28 by mouth ity of capsule 20:55: daily. [address] omeprazole 2020-0 Yes 40mg Take 40 mg U nivers 40 mg 4-28 by mouth ity of capsule 20:55: daily. [address] omeprazole 2020-0 Yes 40mg Take 40 mg U nivers 40 mg 4-28 by mouth ity of capsule 20:55: daily. [address] cefdinir 2020-0 2020- No 300mg Take 300 Uni vers 300 mg 4-28 04-28 mg by ity of capsule 20:52: 00:00 mouth [place] 58 :00 every 24 Medical (twenty-fo Branch ur) hours. carvedilol 2020-0 Yes 3.125mg Take 3.125 Univers 3.125 mg 3-04 mg by ity of tablet 18:12: mouth 2 [place] [id number] ([facility]) Medical times [place] daily with meals. dextroamphe 2020-0 Yes 30mg [...] mg by ity of capsule 18:12: mouth [place] 47 every 24 Medical (twenty-fo Branch ur) hours. carvedilol 2020-0 Yes 3.125mg Take 3.125 Univers 3.125 mg 3-04 mg by ity of tablet 18:12: mouth 2 [place] 47 (two) Medical times Branch daily with [...] by ity of tablet 18:12: mouth 2 [place] 47 (two) Medical times Branch daily with [...] by ity of tablet 18:12: mouth 2 [place] 47 (two) Medical times Branch daily with [...] /umeclidin/ 2-26 ity of vilanter 20:33: [place] [facility] ELLIP[facility] Branch INHALE) cefdinir 2020-0 [...] vers /umeclidin/ 2-26 ity of vilanter 20:33: [place] [facility] ELLIPTA Branch INHALE) cefdinir 2020-0 [...] vers /umeclidin/ 2-26 ity of vilanter 20:33: [place] ([place] [address] Medical ELLIPTA Branch INHALE) albuterol 2020-0 Yes 2{puff} Inhale 2 U nivers (VENTOLIN) 2-26 Puffs ity of 90 20:33: every 6 [place] mcg/actuati 11 (six) Medical on inhaler hours as Branc h needed for Wheezing or Shortness of Breath. fluticasone 2020-0 Yes Inhale. Uni vers /umeclidin/ 2-26 ity of vilanter 20:33: [place] ([place] [address] Medical ELLIPTA Branch INHALE) albuterol 2020-0 Yes 2{puff} Inhale 2 U nivers (VENTOLIN) 2-26 Puffs ity of 90 20:33: every 6 [place] mcg/actuati 11 (six) Medical on inhaler hours as Branc h needed for Wheezing or Shortness of Breath. fluticasone 2020-0 Yes Inhale. Uni vers /umeclidin/ 2-26 ity of vilanter 20:33: [place] ([place] [address] Medical ELLIPTA Branch INHALE) albuterol 2020-0 Yes 2{puff} Inhale 2 U nivers (VENTOLIN) 2-26 Puffs ity of 90 20:33: every 6 [place] mcg/actuati 11 (six) Medical on inhaler hours as Branc h needed for Wheezing or Shortness of Breath. fluticasone 2020-0 Yes Inhale. Uni vers /umeclidin/ 2-26 ity of vilanter 20:33: [place] [facility] ELLIPTA Branch INHALE) albuterol 2020-0 Yes 2{puff} Inhale 2 U nivers (VENTOLIN) 2-26 Puffs ity of 90 20:33: every 6 [place] mcg/actuati 11 (six) Medical on inhaler hours as Branc h needed for Wheezing or Shortness of Breath. fluticasone 2020-0 Yes Inhale. Uni vers /umeclidin/ 2-26 ity of vilanter 20:33: [place] ([facility] 11 Medical ELLIP[facility] Branch INHALE) albuterol 2020-0 Yes 2{puff} Inhale 2 U nivers (VENTOLIN) 2-26 Puffs ity of 90 20:33: every 6 [place] mcg/actuati 11 (six) Medical on inhaler hours as Branc h needed for Wheezing or Shortness of Breath. fluticasone 2020-0 Yes Inhale. Uni vers /umeclidin/ 2-26 ity of vilanter 20:33: [place] ([place] [id number] Medical E[place]IP[place] Branch INHALE) albuterol 2020-0 Yes 2{puff} Inhale 2 U nivers (VENTOLIN) 2-26 Puffs ity of 90 20:33: every 6 [place] mcg/actuati 11 (six) Medical on inhaler hours as Branc h needed for Wheezing or Shortness of Breath. fluticasone 2020-0 Yes Inhale. Uni vers /umeclidin/ 2-26 ity of vilanter 20:33: [place] ([facility] 11 Medical ELLIPTA Branch INHALE) albuterol 2020-0 Yes 2{puff} Inhale 2 U nivers (VENTOLIN) 2-26 Puffs ity of 90 20:33: every 6 [place] mcg/actuati 11 (six) Medical on inhaler hours as Branc h needed for Wheezing or Shortness of Breath. fluticasone 2020-0 Yes Inhale. Uni vers /umeclidin/ 2-26 ity of vilanter 20:33: [place] ([facility] INH[facility]) albuterol 2020-0 Yes 2{puff} Inhale 2 U nivers (VENTOLIN) 2-26 Puffs ity of 90 20:33: every 6 [place] mcg/actuati 11 (six) Medical on inhaler hours as Branc h needed for Wheezing or Shortness of Breath. fluticasone 2020-0 Yes Inhale. Uni vers /umeclidin/ 2- ity of vilanter 20:33: [place] ([facility] 11 Medical E[facility] Branch INHALE) fluticasone 2020-0 Yes Inhale. Uni vers /umeclidin/ 07-27 ity of vilanter 19:44: [place] ([facility] 39 Medical E[facility] Branch INHALE) fluticasone 2020-0 Yes Inhale. Uni vers /umeclidin/ 07-27 ity of vilanter 19:44: [place] ([facility] 39 Medical E[facility] Branch INHALE) fluticasone 2020-0 Yes Inhale. Uni vers /umeclidin/ 07-27 ity of vilanter 19:44: [place] ([facility] 39 Medical E[facility] Branch INHALE) fluticasone 2020-0 Yes Inhale. Uni vers /umeclidin/ 07-27 ity of vilanter 19:44: [place] ([facility] 39 Medical E[facility] Branch INHALE) fluticasone 2020-0 Yes Inhale. Uni vers /umeclidin/ 07-27 ity of vilanter 19:44: [place] ([facility] 39 Medical ELLIP[facility] Branch INHALE) predniSONE 2018-07 Yes [id number] 10mg Take 1 Univers 10 mg 0-11 tablet by ity of tablet 00:00: mouth [place] 00 daily. Medical Take with Branch food. predniSONE 2018-07 Yes [id number] 10mg Take 1 Univers 10 mg 0-11 tablet by ity of tablet 00:00: mouth [place] 00 daily. Medical Take with Branch food. predniSONE 2018-07 Yes [id number] 10mg Take 1 [facility] 10 mg 0-11 tablet by ity of tablet 00:00: mouth [place] 00 daily. Medical Take with Branch food. predniSONE 2018-07 Yes [id number] 10mg Take 1 [facility] 10 mg 0-11 tablet by ity of tablet 00:00: mouth [place] 00 daily. Medical Take with Branch food. predniSONE 2018-07 Yes [id number] 10mg Take 1 [facility] 10 mg 0-11 tablet by ity of tablet 00:00: mouth [place] 00 daily. Medical Take with Branch food. predniSONE 2018- Yes [id number] 10mg Take 1 [facility] 10 mg 0-11 tablet by ity of tablet 00:00: mouth [place] 00 daily. Medical Take with Branch food. predniSONE 2018- Yes [id number] 10mg Take 1 [facility] 10 mg 0-11 tablet by ity of tablet 00:00: mouth [place] 00 daily. Medical Take with Branch food. predniSONE 2018- Yes [id number] 10mg Take 1 [facility] 10 mg 0-11 tablet by ity of tablet 00:00: mouth [place] 00 daily. Medical Take with Branch food. predniSONE 2018- Yes [id number] 10mg Take 1 [facility] 10 mg 0-11 tablet by ity of tablet 00:00: mouth [place] 00 daily. Medical Take with Branch food. predniSONE 2018- Yes [id number] 10mg Take 1 [facility] 10 mg 0-11 tablet by ity of tablet 00:00: mouth [place] 00 daily. Medical Take with Branch food. predniSONE 2018- Yes [id number] 10mg Take 1 Univers 10 mg 0-11 tablet by ity of tablet 00:00: mouth [place] 00 daily. Medical Take with Branch food. predniSONE 2018- Yes [id number] 10mg Take 1 [facility] 10 mg 0-11 tablet by ity of tablet 00:00: mouth [place] 00 daily. Medical Take with Branch food. predniSONE 2018- Yes [id number] 10mg Take 1 [facility] 10 mg 0-11 tablet by ity of tablet 00:00: mouth [place] 00 daily. Medical Take with Branch food. predniSONE 2018- Yes [id number] 10mg Take 1 [facility] 10 mg 0-11 tablet by ity of tablet 00:00: mouth [place] 00 daily. Medical Take with Branch food. predniSONE 2018- Yes [id number] 10mg Take 1 [facility] 10 mg 0-11 tablet by ity of tablet 00:00: mouth [place] 00 daily. Medical Take with Branch food. predniSONE 2018- Yes [id number] 10mg Take 1 [facility] 10 mg 0-11 tablet by ity of tablet 00:00: mouth [place] 00 daily. Medical Take with Branch food. predniSONE 2018- Yes [id number] 10mg Take 1 [facility] 10 mg 0-11 tablet by ity of tablet 00:00: mouth [place] 00 daily. Medical Take with Branch food. predniSONE 2018- Yes [id number] 10mg Take 1 [facility] 10 mg 0-11 tablet by ity of tablet 00:00: mouth [place] 00 daily. Medical Take with Branch food. predniSONE 2018- Yes [id number] 10mg Take 1 [facility] 10 mg 0-11 tablet by ity of tablet 00:00: mouth [place] 00 daily. Medical Take with Branch food. predniSONE 2018- Yes [id number] 10mg Take 1 [facility] 10 mg 0-11 tablet by ity of tablet 00:00: mouth [place] 00 daily. Medical Take with Branch food. predniSONE 2018- Yes [id number] 10mg Take 1 [facility] 10 mg 0-11 tablet by ity of tablet 00:00: mouth [place] 00 daily. Medical Take with Branch food. predniSONE 2018- Yes [id number] 10mg Take 1 [facility] 10 mg 0-11 tablet by ity of tablet 00:00: mouth [place] 00 daily. Medical Take with Branch food. predniSONE 2018- Yes [id number] 10mg Take 1 [facility] 10 mg 0-11 tablet by ity of tablet 00:00: mouth [place] 00 daily. Medical Take with Branch food. predniSONE 2018- Yes [id number] 10mg Take 1 [facility] 10 mg 0-11 tablet by ity of tablet 00:00: mouth [place] 00 daily. Medical Take with Branch food. predniSONE 2018- Yes [id number] 10mg Take 1 [facility] 10 mg 0-11 tablet by ity of tablet 00:00: mouth [place] 00 daily. Medical Take with Branch food. predniSONE 2018- Yes [id number] 10mg Take 1 [facility] 10 mg 0-11 tablet by ity of tablet 00:00: mouth [place] 00 daily. Medical Take with Branch food. predniSONE 2018- Yes [id number] 10mg Take 1 [facility] 10 mg 0-11 tablet by ity of tablet 00:00: mouth [place] 00 daily. Medical Take with Branch food. predniSONE 2019- Yes [id number] 10mg Take 1 [facility] 10 mg 0-11 tablet by ity of tablet 00:00: mouth [place] 00 daily. Medical Take with Branch food. predniSONE 2018- Yes [id number] 10mg Take 1 [facility] 10 mg 0-11 tablet by ity of tablet 00:00: mouth [place] 00 daily. Medical Take with Branch food. predniSONE 2018- Yes [id number] 10mg Take 1 [facility] 10 mg 0-11 tablet by ity of tablet 00:00: mouth [place] 00 daily. Medical Take with Branch food. predniSONE 2018- Yes [id number] 10mg Take 1 [facility] 10 mg 0-11 tablet by ity of tablet 00:00: mouth [place] 00 daily. Medical Take with Branch food. predniSONE 2018- Yes [id number] 10mg Take 1 [facility] 10 mg 0-11 tablet by ity of tablet 00:00: mouth [place] 00 daily. Medical Take with Branch food. predniSONE 2018- Yes [id number] 10mg Take 1 [facility] 10 mg 0-11 tablet by ity of tablet 00:00: mouth [place] 00 daily. Medical Take with Branch food. predniSONE 2018- Yes [id number] 10mg Take 1 [facility] 10 mg 0-11 tablet by ity of tablet 00:00: mouth [place] 00 daily. Medical Take with Branch food. predniSONE 2018- Yes [id number] 10mg Take 1 [facility] 10 mg 0-11 tablet by ity of tablet 00:00: mouth [place] 00 daily. Medical Take with Branch food. predniSONE 2018- Yes [id number] 10mg Take 1 [facility] 10 mg 0-11 tablet by ity of tablet 00:00: mouth [place] 00 daily. Medical Take with Branch food. predniSONE 2018- Yes [id number] 10mg Take 1 [facility] 10 mg 0-11 tablet by ity of tablet 00:00: mouth [place] 00 daily. Medical Take with Branch food. predniSONE 2018- Yes [id number] 10mg Take 1 [facility] 10 mg 0-11 tablet by ity of tablet 00:00: mouth [place] 00 daily. Medical Take with Branch food. predniSONE 2018- Yes [id number] 10mg Take 1 [facility] 10 mg 0-11 tablet by ity of tablet 00:00: mouth [place] 00 daily. Medical Take with Branch food. predniSONE 2018- Yes [id number] 10mg Take 1 [facility] 10 mg 0-11 tablet by ity of tablet 00:00: mouth [place] 00 daily. Medical Take with Branch food. predniSONE 2018- Yes [id number] 10mg Take 1 [facility] 10 mg 0-11 tablet by ity of tablet 00:00: mouth [place] 00 daily. Medical Take with Branch food. predniSONE 2018- Yes [id number] 10mg Take 1 [facility] 10 mg 0-11 tablet by ity of tablet 00:00: mouth [place] 00 daily. Medical Take with Branch food. predniSONE 2018- Yes [id number] 10mg Take 1 [facility] 10 mg 0-11 tablet by ity of tablet 00:00: mouth daily. Medical Take with Branch food. predniSONE 2019- Yes [id number] 10mg Take 1 [facility] 10 mg 0-11 tablet by ity of tablet 00:00: mouth daily. Medical Take with Branch food. predniSONE 2018- Yes [id number] 10mg Take 1 [facility] 10 mg 0-11 tablet by ity of tablet 00:00: mouth daily. Medical Take with Branch food. omeprazole 2019-0 Yes 40mg Take 40 mg U nivers 40 mg 8-22 by mouth ity [facility] capsule 21:10: [facility]0 Yes 40mg Take 40 mg U nivers 40 mg 8-22 by mouth ity of capsule 21:10: daily. [facility]ole 2019-0 Yes 40mg Take 40 mg U nivers 40 mg 8-22 by mouth ity of capsule 21:10: daily. [facility] omeprazole 2019-0 Yes 40mg Take 40 mg U nivers 40 mg 8-22 by mouth ity of capsule 21:10: daily. [facility] omeprazole 2019-0 Yes 40mg Take 40 mg U nivers 40 mg 8-22 by mouth ity of capsule 21:10: daily. [facility] omeprazole 2019-0 Yes 40mg Take 40 mg U nivers 40 mg 8-22 by mouth ity of capsule 21:10: daily. [facility] omeprazole 2019-0 Yes 40mg Take 40 mg U nivers 40 mg 8-22 by mouth ity of capsule 21:10: daily. [facility] omeprazole 2019-0 Yes 40mg Take 40 mg U nivers 40 mg 8-22 by mouth ity of capsule 21:10: daily. [facility] omeprazole 2019-0 Yes 40mg Take 40 mg U nivers 40 mg 8-22 by mouth ity of capsule 21:10: daily. [facility] omeprazole 2019-0 Yes 40mg Take 40 mg U nivers 40 mg 8-22 by mouth ity of capsule 21:10: daily. [facility] omeprazole 2019-0 Yes 40mg Take 40 mg U nivers 40 mg 8-22 by mouth ity of capsule 21:10: daily. [facility] omeprazole 2019-0 Yes 40mg Take 40 mg U nivers 40 mg 8-22 by mouth ity of capsule 21:10: daily. [place] [facility] omeprazole 2019-0 Yes 40mg Take 40 mg U nivers 40 mg 8-22 by mouth ity of capsule 21:10: daily. [facility] omeprazole 2019-0 Yes 40mg Take 40 mg U nivers 40 mg 8-22 by mouth ity of capsule 21:10: daily. [address] omeprazole 2019-0 Yes 40mg Take 40 mg U nivers 40 mg 8-22 by mouth ity of capsule 21:10: daily. [place] [facility] omeprazole 2019-0 Yes 40mg Take 40 mg U nivers 40 mg 8-22 by mouth ity of capsule 21:10: daily. [address] omeprazole 2019-0 Yes 40mg Take 40 mg U nivers 40 mg 8-22 by mouth ity of capsule 21:10: daily. [address] omeprazole 2019-0 Yes 40mg Take 40 mg U nivers 40 mg 8-22 by mouth ity of capsule 21:10: daily. [address] omeprazole 2019-0 Yes 40mg Take 40 mg U nivers 40 mg 8-22 by mouth ity of capsule 21:10: daily. [address] omeprazole 2019-0 Yes 40mg Take 40 mg U nivers 40 mg 8-22 by mouth ity of capsule 21:10: daily. [address] omeprazole 2019-0 Yes 40mg Take 40 mg U nivers 40 mg 8-22 by mouth ity of capsule 21:10: daily. [address] omeprazole 2019-0 Yes 40mg Take 40 mg U nivers 40 mg 8-22 by mouth ity of capsule 21:10: daily. [address] omeprazole 2019-0 Yes 40mg Take 40 mg U nivers 40 mg 8-22 by mouth ity of capsule 21:10: daily. [address] omeprazole 2019-0 Yes 40mg Take 40 mg U nivers 40 mg 8-22 by mouth ity of capsule 21:10: daily. [address] omeprazole 2019-0 Yes 40mg Take 40 mg U nivers 40 mg 8-22 by mouth ity of capsule 21:10: daily. [address] omeprazole 2019-0 Yes 40mg Take 40 mg U nivers 40 mg 8-22 by mouth ity of capsule 21:10: daily. [address] Branch omeprazole 2019- Yes 40mg Take 40 mg U nivers 40 mg 8-22 by mouth ity of capsule 21:10: daily. [address] Branch omeprazole 2019-0 Yes 40mg Take 40 mg U nivers 40 mg 8-22 by mouth ity of capsule 21:10: daily. [address] Branch venlafaxine Yes major 75mg Q.5D Take [...] times Center 20 mg Tab daily. tablet venlafaxine Yes major 75mg Q.5D Take [address] [facility] (EFFEXOR) 8-12 depressive by mouth [facility] 75 MG 14:49: disorder (two) Medical tablet 19 times Center daily. ALPRAZolam Yes 1mg Take [address] [facility] (XANAX[facility] 1 8-12 by mouth [facility] tablet 14:49: (three) Medic al 19 times Center daily as needed for Anxiety. predniSONE 2019-0 Yes asthma 10mg QD Take 10 mg [...] Center 20 mg Tab daily. tablet pantoprazol 2020- No 40mg Take 40 mg [facility] e 40 mg EC 03-06 0812 by mouth. ity of tablet 00:00: 04:59 [place] 00 :00 [facility] pantop[facility]ol 2018-0 2020- No 40mg Take 40 mg Univers e 40 mg EC 03-06 0812 by mouth. ity of tablet 00:00: 04:59 [place] 00 :00 [facility] pantoprazol 2019-0 2020- No 40mg Take 40 mg Univers e 40 mg EC 03-06 08-12 by mouth. ity of tablet 00:00: 04:59 [place] 00 :00 [facility] pantoprazol 2019-0 2020- No 40mg Take 40 mg Univers e 40 mg EC 03-06 0812 by mouth. ity of tablet 00:00: 04:59 [place] 00 :00 [facility] pantoprazol 2019-0 2020- No 40mg Take 40 mg Univers e 40 mg EC 03-06 08-12 by mouth. ity of tablet 00:00: 04:59 [place] 00 :00 [facility] pantoprazol 2019-0 2020- No 40mg Take 40 mg Univers e 40 mg EC 03-06 08-12 by mouth. ity of tablet 00:00: 04:59 [place] 00 :00 [facility] pantoprazol 2019-0 2020- No 40mg Take 40 mg Univers e 40 mg EC 03-0612 by mouth. ity of tablet 00:00: 04:59 [place] 00 :00 Medical Branch pantoprazol 2019-0 2020- No 40mg Take 40 mg Univers e 40 mg EC 03-06 0812 by mouth. ity of tablet 00:00: 04:59 [place] 00 :00 Medical Branch pantoprazol 2019-0 2020- No 40mg Take 40 mg Univers e 40 mg EC 03-06 0812 by mouth. ity of tablet 00:00: 04:59 [place] 00 :00 Medical Branch pantoprazol 2019-0 2020- No 40mg Take 40 mg Univers e 40 mg EC 03-06 0812 by mouth. ity of tablet 00:00: 04:59 [place] 00 :00 Medical Branch pantoprazol 2019-0 2020- No 40mg Take 40 mg Univers e 40 mg EC 03-06 0812 by mouth. ity of tablet 00:00: 04:59 [place] 00 :00 Medical Branch pantoprazol 2019-0 2020- No 40mg Take 40 mg [facility] e 40 mg EC 03-06 08-12 by mouth. ity of tablet 00:00: 04:59 [place] 00 :00 [facility] pantoprazol 2019-0 2020- No 40mg Take 40 mg [facility] e 40 mg EC 03-06 0812 by mouth. ity of tablet 00:00: 04:59 [place] 00 :00 Medical Branch pantoprazol 2019-0 2020- No 40mg Take 40 mg [facility] e 40 mg EC 03-06 08-12 by mouth. ity of tablet 00:00: 04:59 [place] 00 :00 Medical Branch pantoprazol 2019-0 2020- No 40mg Take 40 mg [facility] e 40 mg EC 03-06 0812 by mouth. ity of tablet 00:00: 04:59 [place] 00 :00 Medical [facility] pantoprazol 2019-0 2020- No 40mg Take 40 mg [facility] e 40 mg EC 03-06 08-12 by mouth. ity of tablet 00:00: 04:59 [place] 00 :00 Medical Branch pantoprazol 2019-0 2020- No 40mg Take 40 mg [facility] e 40 mg EC 8 08-12 by mouth. ity of tablet 00:00: 04:59 [place] 00 :00 Medical Branch pantoprazol 2019-0 2020- No 40mg Take 40 mg [facility] e 40 mg EC 03-06 08-12 by mouth. ity of tablet 00:00: 04:59 [place] 00 :00 Medical Branch pantoprazol 2019-0 2020- No 40mg Take 40 mg [facility] e 40 mg EC 03-06 by mouth. ity of tablet 00:00: 04:59 [place] 00 :00 [facility] pantop[facility]ol 2019-0 2020- No 40mg Take 40 mg Univers e 40 mg EC 03-06 by mouth. ity of tablet 00:00: 04:59 [place] 00 :00 [facility] pantoprazol 2019-0 2020- No 40mg Take 40 mg Univers e 40 mg EC 03-06 by mouth. ity of tablet 00:00: 04:59 [place] 00 :00 [facility] dextroamphe 2019-0 Yes Take by Uni vers tamine/amph 3-11 mouth. ity of etamine 00:05: Being [place] (ADDERALL 21 prescribed Medi feliciano ORAL) by [facility] but the patient has been counseled not to take it due the cardiovasc ular risks dextroamphe 2019-0 Yes Take by Uni vers tamine/amph 3-11 mouth. ity of etamine 00:05: Being [place] (ADDERALL 21 prescribed Medi feliciano ORAL) by [facility] but the patient has been counseled not to take it due the cardiovasc ular risks dextroamphe 2019-0 Yes Take by Uni vers tamine/amph 3-11 mouth. ity of etamine 00:05: Being [place] (ADDERALL 21 prescribed Medi feliciano ORAL) by [facility] but the patient has been counseled not to take it due the cardiovasc ular risks dextroamphe 2019-0 Yes Take by Uni vers tamine/amph 3-11 mouth. ity of etamine 00:05: Being [place] (ADDERALL 21 prescribed Medi feliciano ORAL) by [facility] but the patient has been counseled not to take it due the cardiovasc ular risks dextroamphe 2019-0 Yes Take by Uni vers tamine/amph 3-11 mouth. ity of etamine 00:05: Being [place] (ADDERALL 21 prescribed Medi feliciano ORAL) by [facility] but the patient has been counseled not to take it due the cardiovasc ular risks dextroamphe 2019-0 Yes Take by Uni vers tamine/amph 3-11 mouth. ity of etamine 00:05: Being [place] (ADDERALL 21 prescribed Medi feliciano ORAL) by [facility] but the patient has been counseled not to take it due the cardiovasc ular risks dextroamphe 2019-0 Yes Take by Uni vers tamine/amph 3-11 mouth. ity of etamine 00:05: Being [place] (ADDERALL 21 prescribed Medi feliciano ORAL) by [facility] but the patient has been counseled not to take it due the cardiovasc ular risks dextroamphe 2019-0 Yes Take by Uni vers tamine/amph 3-11 mouth. ity of etamine 00:05: Being [place] (ADDERALL 21 prescribed Medi feliciano ORAL) by [facility] but the patient has been counseled not to take it due the cardiovasc ular risks dextroamphe 2019-0 Yes Take by Uni vers tamine/amph 3-11 mouth. ity of etamine 00:05: Being [place] (ADDERALL 21 prescribed Medi feliciano ORAL) by [facility] but the patient has been counseled not to take it due the cardiovasc ular risks dextroamphe 2019-0 Yes Take by Uni vers tamine/amph 3-11 mouth. ity of etamine 00:05: Being [place] (ADDERALL 21 prescribed Medi feliciano ORAL) by [facility] but the patient has been counseled not to take it due the cardiovasc ular risks dextroamphe 2019-0 Yes Take by Uni vers tamine/amph 3-11 mouth. ity of etamine 00:05: Being [place] (ADDERALL 21 prescribed Medi feliciano ORAL) by [facility] but the patient has been counseled not to take it due the cardiovasc ular risks dextroamphe 2019-0 Yes Take by Uni vers tamine/amph 3-11 mouth. ity of etamine 00:05: Being [place] (ADDERALL 21 prescribed Medi feliciano ORAL) by [facility] but the patient has been counseled not to take it due the cardiovasc ular risks dextroamphe 2019-0 Yes Take by Uni vers tamine/amph 3-11 mouth. ity of etamine 00:05: Being [place] (ADDERALL 21 prescribed Medi feliciano ORAL) by [facility] but the patient has been counseled [...] (ADDERALL 21 prescribed Medi feliciano ORAL) by [facility] but the patient has been counseled not to take it due the cardiovasc ular risks dextroamphe 2019-0 Yes Take by Uni vers tamine/amph 3-11 mouth. ity of etamine 00:05: Being [place] (ADDERALL 21 prescribed Medi feliciano ORAL) by [facility] but the patient has been counseled not to take it due the cardiovasc ular risks dextroamphe 2019-0 Yes Take by Uni vers tamine/amph 3-11 mouth. ity of etamine 00:05: Being [place] (ADDERALL 21 prescribed Medi feliciano ORAL) by [facility] but the patient has been counseled not to take it due the cardiovasc ular risks dextroamphe 2019-0 Yes Take by Uni vers tamine/amph 3-11 mouth. ity of etamine 00:05: Being [place] (ADDERALL 21 prescribed Medi feliciano ORAL) by [facility] but the patient has been counseled not to take it due the cardiovasc ular risks dextroamphe 2019-0 Yes Take by Uni vers tamine/amph 3-11 mouth. ity of etamine 00:05: Being [place] (ADDERALL 21 prescribed Medi feliciano ORAL) by [facility] but the patient has been counseled not to take it due the cardiovasc ular risks dextroamphe 2019-0 Yes Take by Uni vers tamine/amph 3-11 mouth. ity of etamine 00:05: Being [place] (ADDERALL 21 prescribed Medi feliciano ORAL) by [facility] but the patient has been counseled not to take it due the cardiovasc ular risks carvedilol 2019-0 Yes 3.125mg Take 3.125 Univers 3.125 mg 3-07 mg by ity of tablet 20:27: mouth [address] [place] [address] (two) Medical times [place] daily with meals. carvedilol 2019-0 Yes 3.125mg Take 3.125 Univers 3.125 mg 3-07 mg by ity of tablet 20:27: mouth 2 [place] [address] (two) Medical times [place] daily with meals. carvedilol 2019-0 Yes 3.125mg Take 3.125 Univers 3.125 mg 3-07 mg by ity of tablet 20:27: mouth 2 [place] 22 (two) Medical times Branch daily with meals. carvedilol 2019-0 Yes 3.125mg Take 3.125 Univers 3.125 mg 3-07 mg by ity of tablet 20:27: mouth 2 [place] 22 (two) Medical times Branch daily with meals. carvedilol 2019-0 Yes 3.125mg Take 3.125 Univers 3.125 mg 3-07 mg by ity of tablet 20:27: mouth 2 [place] 22 (two) Medical times Branch daily with meals. carvedilol 2019-0 Yes 3.125mg Take 3.125 Univers 3.125 mg 3-07 mg by ity of tablet 20:27: mouth 2 [place] 22 (two) Medical times Branch daily with meals. carvedilol 2019-0 Yes 3.125mg Take 3.125 Univers 3.125 mg 3-07 mg by ity of tablet 20:27: mouth 2 [place] [address] (two) Medical times Branch daily with meals. carvedilol 2019-0 Yes 3.125mg Take 3.125 Univers 3.125 mg 3-07 mg by ity of tablet 20:27: mouth 2 [place] [address] (two) Medical times Branch daily with meals. carvedilol 2019-0 Yes 3.125mg Take 3.125 Univers 3.125 mg 3-07 mg by ity of tablet 20:27: mouth 2 [place] [address] (two) Medical times Branch daily with meals. carvedilol 2019-0 Yes 3.125mg Take 3.125 Univers 3.125 mg 3-07 mg by ity of tablet 20:27: mouth 2 [place] [address] (two) Medical times Branch daily with meals. carvedilol 2019-0 Yes 3.125mg Take 3.125 Univers 3.125 mg 3-07 mg by ity of tablet 20:27: mouth 2 [place] 22 (two) Medical times Branch daily with meals. carvedilol 2019-0 Yes 3.125mg Take 3.125 Univers 3.125 mg 3-07 mg by ity of tablet 20:27: mouth 2 [place] 22 (two) Medical times Branch daily with meals. carvedilol 2019-0 Yes 3.125mg Take 3.125 Univers 3.125 mg 3-07 mg by ity of tablet 20:27: mouth 2 [place] 22 (two) Medical times Branch daily with meals. carvedilol 2019-0 Yes 3.125mg Take 3.125 Univers 3.125 mg 3-07 mg by ity of tablet 20:27: mouth 2 [place] [address] (two) Medical times Branch daily with meals. carvedilol 2019-0 Yes 3.125mg Take 3.125 Univers 3.125 mg 3-07 mg by ity of tablet 20:27: mouth 2 [place] 22 (two) Medical times Branch daily with meals. carvedilol 2019-0 Yes 3.125mg Take 3.125 Univers 3.125 mg 3-07 mg by ity of tablet 20:27: mouth 2 [place] [address] (two) Medical times Branch daily with meals. carvedilol 2019-0 Yes 3.125mg Take 3.125 Univers 3.125 mg 3-07 mg by ity of tablet 20:27: mouth 2 [place] [address] (two) Medical times Branch daily with meals. carvedilol 2019-0 Yes 3.125mg Take 3.125 Univers 3.125 mg 3-07 mg by ity of tablet 20:27: mouth 2 [place] [address] (two) Medical times Branch daily with meals. carvedilol 2019-0 Yes 3.125mg Take 3.125 Univers 3.125 mg 3-07 mg by ity of tablet 20:27: mouth 2 [place] [address] (two) Medical times Branch daily with meals. carvedilol 2019-0 Yes 3.125mg Take 3.125 Univers 3.125 mg 3-07 mg by ity of tablet 20:27: mouth 2 [place] [address] (two) Medical times Branch daily with meals. carvedilol 2019-0 Yes 3.125mg Take 3.125 Univers 3.125 mg 3-07 mg by ity of tablet 20:27: mouth 2 [place] [address] (two) Medical times Branch daily with meals. carvedilol 2019-0 Yes 3.125mg Take 3.125 Univers 3.125 mg 3-07 mg by ity of tablet 20:27: mouth 2 [place] 22 (two) Medical times Branch daily with meals. carvedilol 2019-0 Yes 3.125mg Take 3.125 Univers 3.125 mg 3-07 mg by ity of tablet 20:27: mouth 2 [place] [address] (two) Medical times Branch daily with meals. carvedilol 2019-0 Yes 3.125mg Take 3.125 Univers 3.125 mg 3-07 mg by ity of tablet 20:27: mouth 2 [place] (two) Medical times Branch daily with meals. carvedilol 2019-0 Yes 3.125mg Take 3.125 [facility] 3.125 mg 3-07 mg by ity of tablet 20:27: mouth 2 [place] (two) Medical times Branch daily with meals. carvedilol 2019-0 Yes 3.125mg Take 3.125 [facility] 3.125 mg 3-07 mg by ity of tablet 20:27: mouth 2 [place] (two) Medical times Branch daily with meals. carvedilol 2019-0 Yes 3.125mg Take 3.125 [facility] 3.125 mg 3-07 mg by ity of tablet 20:27: mouth 2 [place] (two) Medical times Branch daily with meals. Venlafaxine 2019-0 Yes [id number] 75mg Take 1 [facility] 75 mg 3-07 tablet by ity of tablet 00:00: mouth [place] (two) Medical times Branch daily. Additional refills per psychiatry Venlafaxine 2019-0 Yes [id number] 75mg Take 1 [facility] 75 mg 3-07 tablet by ity of tablet 00:00: mouth [place] ([facility]) Medical times Branch daily. Additional refills per psychiatry Venlafaxine 2019-0 Yes [id number] 75mg Take 1 [facility] 75 mg 3-07 tablet by ity of tablet 00:00: mouth [place] ([facility]) Medical times Branch daily. Additional refills per psychiatry Venlafaxine 2019-0 Yes [id number] 75mg Take 1 [facility] 75 mg 3-07 tablet by ity of tablet 00:00: mouth [place] ([facility]) Medical times Branch daily. Additional refills per psychiatry Venlafaxine 2019-0 Yes [id number] 75mg Take 1 [facility] 75 mg 3-07 tablet by ity of tablet 00:00: mouth [place] (two) Medical times Branch daily. Additional refills per psychiatry Venlafaxine 2019-0 Yes [id number] 75mg Take 1 [facility] 75 mg 3-07 tablet by ity of tablet 00:00: mouth 2 [place] (two) Medical times Branch daily. Additional refills per psychiatry Venlafaxine 2019-0 Yes [id number] 75mg Take 1 [facility] 75 mg 3-07 tablet by ity of tablet 00:00: mouth 2 [place] (two) Medical times Branch daily. Additional refills per psychiatry Venlafaxine 2019-0 Yes [id number] 75mg Take 1 [facility] 75 mg 3-07 tablet by ity of tablet 00:00: mouth (two) Medical times Branch daily. Additional refills per psychiatry Venlafaxine 2019-0 Yes [id number] 75mg Take 1 [facility] 75 mg 3-07 tablet by ity of tablet 00:00: mouth 2 (two) Medical times Branch daily. Additional refills per psychiatry Venlafaxine 2018-0 Yes [id number] 75mg Take 1 [facility] 75 mg 3-07 tablet by ity of tablet 00:00: mouth (two) Medical times Branch daily. Additional refills per psychiatry Venlafaxine 2018-0 Yes [id number] 75mg Take 1 [facility] 75 mg 3-07 tablet by ity of tablet 00:00: mouth (two) Medical times Branch daily. Additional refills per psychiatry Venlafaxine 2018-0 Yes [id number] 75mg Take 1 [facility] 75 mg 3-07 tablet by ity of tablet 00:00: mouth (two) Medical times Branch daily. Additional refills per psychiatry Venlafaxine 2018-0 Yes [id number] 75mg Take 1 [facility] 75 mg 3-07 tablet by ity of tablet 00:00: mouth (two) Medical times Branch daily. Additional refills per psychiatry Venlafaxine 2018-0 Yes [id number] 75mg Take 1 [facility] 75 mg 3-07 tablet by ity of tablet 00:00: mouth (two) Medical times Branch daily. Additional refills per psychiatry Venlafaxine 2018-0 Yes [id number] 75mg Take 1 [facility] 75 mg 3-07 tablet by ity of tablet 00:00: mouth (two) Medical times Branch daily. Additional refills per psychiatry Venlafaxine 2018-0 Yes [id number] 75mg Take 1 [facility] 75 mg 3-07 tablet by ity of tablet 00:00: mouth (two) Medical times Branch daily. Additional refills per psychiatry Venlafaxine 2019-0 Yes [id number] 75mg Take 1 [facility] 75 mg 3-07 tablet by ity of tablet 00:00: mouth 2 (two) Medical times Branch daily. Additional refills per psychiatry Venlafaxine 2018-0 Yes [id number] 75mg Take 1 [facility] 75 mg 3-07 tablet by ity of tablet 00:00: mouth (two) Medical times Branch daily. Additional refills per psychiatry Venlafaxine 2019-0 Yes [id number] 75mg Take 1 [facility] 75 mg 3-07 tablet by ity of tablet 00:00: mouth (two) Medical times Branch daily. Additional refills per psychiatry Venlafaxine 2019-0 Yes [id number] 75mg Take 1 [facility] 75 mg 3-07 tablet by ity of tablet 00:00: mouth (two) Medical times Branch daily. Additional refills per psychiatry Venlafaxine 2018-0 Yes [id number] 75mg Take 1 [facility] 75 mg 3-07 tablet by ity of tablet 00:00: mouth (two) Medical times Branch daily. Additional refills per psychiatry Venlafaxine 2018-0 Yes [id number] 75mg Take 1 [facility] 75 mg 3-07 tablet by ity of tablet 00:00: mouth (two) Medical times Branch daily. Additional refills per psychiatry Venlafaxine 2018-0 Yes [id number] 75mg Take 1 [facility] 75 mg 3-07 tablet by ity of tablet 00:00: mouth (two) Medical times Branch daily. Additional refills per psychiatry Venlafaxine 2018-0 Yes [id number] 75mg Take 1 [facility] 75 mg 3-07 tablet by ity of tablet 00:00: mouth (two) Medical times Branch daily. Additional refills per psychiatry Venlafaxine 2018-0 Yes [id number] 75mg Take 1 [facility] 75 mg 3-07 tablet by ity of tablet 00:00: mouth (two) Medical times Branch daily. Additional refills per psychiatry Venlafaxine 2018-0 Yes [id number] 75mg Take 1 [facility] 75 mg 3-07 tablet by ity of tablet 00:00: mouth (two) Medical times Branch daily. Additional refills per psychiatry Venlafaxine 2019-0 Yes [id number] 75mg Take 1 [facility] 75 mg 3-07 tablet by ity of tablet 00:00: mouth 2 (two) Medical times Branch daily. Additional refills per psychiatry Venlafaxine 2019-0 Yes [id number] 75mg Take 1 [facility] 75 mg 3-07 tablet by ity of tablet 00:00: mouth (two) Medical times Branch daily. Additional refills per psychiatry Venlafaxine 2019-0 Yes [id number] 75mg Take 1 [facility] 75 mg 3-07 tablet by ity of tablet 00:00: mouth (two) Medical times Branch daily. Additional refills per psychiatry Venlafaxine 2019-0 Yes [id number] 75mg Take 1 [facility] 75 mg 3-07 tablet by ity of tablet 00:00: mouth (two) Medical times Branch daily. Additional refills per psychiatry Venlafaxine 2019-0 Yes [id number] 75mg Take 1 [facility] 75 mg 3-07 tablet by ity of tablet 00:00: mouth (two) Medical times Branch daily. Additional refills per psychiatry Venlafaxine 2019-0 Yes [id number] 75mg Take 1 [facility] 75 mg 3-07 tablet by ity of tablet 00:00: mouth (two) Medical times Branch daily. Additional refills per psychiatry Venlafaxine 2018-0 Yes [id number] 75mg Take 1 [facility] 75 mg 3-07 tablet by ity of tablet 00:00: mouth (two) Medical times Branch daily. Additional refills per psychiatry Venlafaxine 2018-0 Yes [id number] 75mg Take 1 [facility] 75 mg 3-07 tablet by ity of tablet 00:00: mouth (two) Medical times Branch daily. Additional refills per psychiatry Venlafaxine 2019-0 Yes [id number] 75mg Take 1 [facility] 75 mg 3-07 tablet by ity of tablet 00:00: mouth (two) Medical times Branch daily. Additional refills per psychiatry Venlafaxine 2019-0 Yes [id number] 75mg Take 1 [facility] 75 mg 3-07 tablet by ity of tablet 00:00: mouth (two) Medical times Branch daily. Additional refills per psychiatry Venlafaxine 2019-0 Yes [id number] 75mg Take 1 [facility] 75 mg 3-07 tablet by ity of tablet 00:00: mouth (two) Medical times Branch daily. Additional refills per psychiatry Venlafaxine 2019-0 Yes [id number] 75mg Take 1 [facility] 75 mg 3-07 tablet by ity of tablet 00:00: mouth 2 (two) Medical times Branch daily. Additional refills per psychiatry Venlafaxine 2019-0 Yes [id number] 75mg Take 1 [facility] 75 mg 3-07 tablet by ity of tablet 00:00: mouth (two) Medical times Branch daily. Additional refills per psychiatry Venlafaxine 2019-0 Yes [id number] 75mg Take 1 [facility] 75 mg 3-07 tablet by ity of tablet 00:00: mouth (two) Medical times Branch daily. Additional refills per psychiatry Venlafaxine 2019-0 Yes [id number] 75mg Take 1 [facility] 75 mg 3-07 tablet by ity of tablet 00:00: mouth (two) Medical times Branch daily. Additional refills per psychiatry Venlafaxine 2019-0 Yes [id number] 75mg Take 1 [facility] 75 mg 3-07 tablet by ity of tablet 00:00: mouth (two) Medical times Branch daily. Additional refills per psychiatry Venlafaxine 2018-0 Yes [id number] 75mg Take 1 [facility] 75 mg 3-07 tablet by ity of tablet 00:00: mouth (two) Medical times Branch daily. Additional refills per psychiatry Venlafaxine 2018-0 Yes [id number] 75mg Take 1 [facility] 75 mg 3-07 tablet by ity of tablet 00:00: mouth (two) Medical times Branch daily. Additional refills per psychiatry Venlafaxine 2018-0 Yes [id number] 75mg Take 1 [facility] 75 mg 3-07 tablet by ity of tablet 00:00: mouth (two) Medical times Branch daily. Additional refills per psychiatry Venlafaxine 2019-0 Yes [id number] 75mg Take 1 [facility] 75 mg 3-07 tablet by ity of tablet 00:00: mouth (two) Medical times Branch daily. Additional refills per psychiatry Venlafaxine 2018-0 Yes [id number] 75mg Take 1 [facility] 75 mg 3-07 tablet by ity of tablet 00:00: mouth (two) Medical times Branch daily. Additional refills per psychiatry Venlafaxine 2019-0 Yes [id number] 75mg Take 1 [facility] 75 mg 3-07 tablet by ity of tablet 00:00: mouth 2 (two) Medical times Branch daily. Additional refills per psychiatry Venlafaxine 2019-0 Yes [id number] 75mg Take 1 [facility] 75 mg 3-07 tablet by ity of tablet 00:00: mouth 2 (two) Medical times Branch daily. Additional refills per psychiatry Venlafaxine 2019-0 Yes [id number] 75mg Take 1 [facility] 75 mg 3-07 tablet by ity of tablet 00:00: mouth (two) Medical times Branch daily. Additional refills per psychiatry Venlafaxine 2019-0 Yes [id number] 75mg Take 1 [facility] 75 mg 3-07 tablet by ity of tablet 00:00: mouth (two) Medical times Branch daily. Additional refills per psychiatry Venlafaxine 2019-0 Yes [id number] 75mg Take 1 [facility] 75 mg 3-07 tablet by ity of tablet 00:00: mouth (two) Medical times Branch daily. Additional refills per psychiatry Venlafaxine 2019-0 Yes [id number] 75mg Take 1 [facility] 75 mg 3-07 tablet by ity of tablet 00:00: mouth (two) Medical times Branch daily. Additional refills per psychiatry Venlafaxine 2018-0 Yes [id number] 75mg Take 1 [facility] 75 mg 3-07 tablet by ity of tablet 00:00: mouth (two) Medical times Branch daily. Additional refills per psychiatry Venlafaxine 2018-0 Yes [id number] 75mg Take 1 [facility] 75 mg 3-07 tablet by ity of tablet 00:00: mouth (two) Medical times Branch daily. Additional refills per psychiatry Venlafaxine 2019-0 Yes [id number] 75mg Take 1 [facility] 75 mg 3-07 tablet by ity of tablet 00:00: mouth (two) Medical times Branch daily. Additional refills per psychiatry Venlafaxine 2019-0 Yes [id number] 75mg Take 1 [facility] 75 mg 3-07 tablet by ity of tablet 00:00: mouth (two) Medical times Branch daily. Additional refills per psychiatry Venlafaxine 2019-0 Yes [id number] 75mg Take 1 [facility] 75 mg 3-07 tablet by ity of tablet 00:00: mouth (two) Medical times Branch daily. Additional refills per psychiatry Venlafaxine 2019-0 Yes [id number] 75mg Take 1 [facility] 75 mg 3-07 tablet by ity of tablet 00:00: mouth (two) Medical times Branch daily. Additional refills per psychiatry Venlafaxine 2019-0 Yes [id number] 75mg Take 1 [facility] 75 mg 3-07 [...] for Wheezing or Shortness of Breath. albuterol 0 Yes 2{puff} Inhale 2 [facility] (VENTOLIN) [...] [place] [facility] daily. [facility] predniSONE 2016-0 Yes 10mg Take 10 mg U nivers (DELTASONE) 3-22 by mouth ity of 10 mg 00:00: daily. [place] tablet [facility]E 2016-0 Yes 10mg Take 10 mg U nivers (DELTASONE) 3-22 by mouth ity of 10 mg 00:00: daily. [place] tablet 00 [facility] predniSONE 2016-0 Yes 10mg Take 10 mg U nivers (DELTASONE) 3-22 by mouth ity of 10 mg 00:00: daily. [place] tablet 00 [facility] predniSONE 2016-0 Yes 10mg Take 10 mg U nivers (DELTASONE) 3-22 by mouth ity of 10 mg 00:00: daily. [place] tablet 00 [facility] predniSONE 2016-0 Yes 10mg Take 10 mg U nivers (DELTASONE) 3-22 by mouth ity of 10 mg 00:00: daily. [place] tablet 00 [facility] predniSONE 2016-0 Yes 10mg Take 10 mg U nivers (DELTASONE) 3-22 by mouth ity of 10 mg 00:00: daily. [place] tablet 00 [facility] predniSONE 2016-0 Yes 10mg Take 10 mg U nivers (DELTASONE) 3-22 by mouth ity of 10 mg 00:00: daily. [place] tablet 00 [facility] predniSONE 2016-0 Yes 10mg Take 10 mg U nivers (DELTASONE) 3-22 by mouth ity of 10 mg 00:00: daily. [place] tablet 00 [facility] predniSONE 2016-0 Yes 10mg Take 10 mg U nivers (DELTASONE) 3-22 by mouth ity of 10 mg 00:00: daily. [place] tablet 00 [facility] predniSONE 2016-0 Yes 10mg Take 10 mg U nivers (DELTASONE) 3-22 by mouth ity of 10 mg 00:00: daily. [place] tablet 00 [facility] predniSONE 2016-0 Yes 10mg Take 10 mg U nivers (DELTASONE) 3-22 by mouth ity of 10 mg 00:00: daily. [place] tablet 00 [facility] predniSONE 2016-0 Yes 10mg Take 10 mg U nivers (DELTASONE) 3-22 by mouth ity of 10 mg 00:00: daily. [place] tablet 00 [facility] predniSONE 2016-0 Yes 10mg Take 10 mg U nivers (DELTASONE) 3-22 by mouth ity of 10 mg 00:00: daily. [place] tablet 00 [facility] predniSONE Yes 10mg Take 10 mg U nivers (DELTASONE) 3-22 by mouth ity of 10 mg 00:00: daily. [place] tablet 00 [facility] predniSONE Yes 10mg Take 10 mg U nivers (DELTASONE) 3-22 by mouth ity of 10 mg 00:00: daily. [place] tablet 00 [facility] omeprazole Yes 40mg Take 40 mg U nivers (PRILOSEC) 3-08 by mouth ity o f 40 mg 00:00: daily. [place] capsule 00 [facility] omeprazole 2019- No 40mg Take 40 mg [facility] (PRILOSEC) 09-30- by mouth ity of 40 mg 00:00: 00:00 daily. [place] capsule 00 :00 [facility] omep[facility]ole 2019- No 40mg Take 40 mg [facility] (PRILOSEC) 09-30- by mouth ity of 40 mg 00:00: 00:00 daily. [place] capsule 00 :00 [facility] Yes 250ug Take 250 Univ ers 500 mcg 3-07 mcg by ity of tablet 00:00: mouth 00 daily. [facility] Yes 250ug Take 250 Univ ers 500 mcg 3-07 mcg by ity of tablet 00:00: mouth [place] 00 daily. [facility] Yes 1{tbl} Take 1 Unive rs 500 mcg 3-07 tablet by ity of tablet 00:00: mouth [place] 00 daily. [facility] Yes 250ug Take 250 Univ ers 500 mcg 3-07 mcg by ity of tablet 00:00: mouth [place] 00 daily. [facility] Yes 250ug Take 250 Univ ers 500 mcg 3-07 mcg by ity of tablet 00:00: mouth [place] 00 daily. [facility] Yes 250ug Take 250 Univ ers 500 mcg 3-07 mcg by ity of tablet 00:00: mouth [place] 00 daily. [facility] Yes 1{tbl} Take 1 Unive rs 500 mcg 3-07 tablet by ity of tablet 00:00: mouth [place] 00 daily. [facility] Yes 250ug Take 250 Univ ers 500 mcg 3-07 mcg by ity of tablet 00:00: mouth [place] 00 daily. [facility] Yes 250ug Take 250 Univ ers 500 mcg 3-07 mcg by ity of tablet 00:00: mouth [place] 00 daily. [facility] Yes 250ug Take 250 Univ ers 500 mcg 3-07 mcg by ity of tablet 00:00: mouth [place] 00 daily. [facility] Yes 250ug Take 250 Univ ers 500 mcg 3-07 mcg by ity of tablet 00:00: mouth [place] 00 daily. [facility] Yes 1{tbl} Take 1 Unive rs 500 mcg 3-07 tablet by ity of tablet 00:00: mouth [place] 00 daily. [facility] Yes 1{tbl} Take 1 Unive rs 500 mcg 3-07 tablet by ity of tablet 00:00: mouth [place] 00 daily. [facility] Yes 1{tbl} Take 1 Unive rs 500 mcg 3-07 tablet by ity of tablet 00:00: mouth [place] 00 daily. [facility] Yes 1{tbl} Take 1 Unive rs 500 mcg 3-07 tablet by ity of tablet 00:00: mouth [place] 00 daily. [facility] 0 Yes 1{tbl} Take 1 Unive rs 500 mcg 3-07 tablet by ity of tablet 00:00: mouth [place] 00 daily. [facility] 0 Yes 1{tbl} Take 1 Unive rs 500 mcg 3-07 tablet by ity of tablet 00:00: mouth [place] 00 daily. [facility] Yes 1{tbl} Take 1 Unive rs 500 mcg 3-07 tablet by ity of tablet 00:00: mouth [place] 00 daily. [facility] 0 Yes 1{tbl} Take 1 Unive rs 500 mcg 3-07 tablet by ity of tablet 00:00: mouth [place] 00 daily. [facility] Yes 1{tbl} Take 1 Unive rs 500 mcg 3-07 tablet by ity of tablet 00:00: mouth [place] 00 daily. [facility] 0 Yes 1{tbl} Take 1 Unive rs 500 mcg 3-07 tablet by ity of tablet 00:00: mouth [place] 00 daily. [facility] Yes 1{tbl} Take 1 Unive rs 500 mcg 3-07 tablet by ity of tablet 00:00: mouth [place] 00 daily. [facility] 0 Yes 1{tbl} Take 1 Unive rs 500 mcg 3-07 tablet by ity of tablet 00:00: mouth [place] 00 daily. [facility] Yes 1{tbl} Take 1 Unive rs 500 mcg 3-07 tablet by ity of tablet 00:00: mouth [place] 00 daily. [facility] Yes 1{tbl} Take 1 Unive rs 500 mcg 3-07 tablet by ity of tablet 00:00: mouth [place] 00 daily. [facility] Yes 1{tbl} Take 1 Unive rs 500 mcg 3-07 tablet by ity of tablet 00:00: mouth [place] 00 daily. [facility] Yes 1{tbl} Take 1 Unive rs 500 mcg 3-07 tablet by ity of tablet 00:00: mouth [place] 00 daily. [facility] Yes 1{tbl} Take 1 Unive rs 500 mcg 3-07 tablet by ity of tablet 00:00: mouth [place] 00 daily. [facility] 0 Yes 1{tbl} Take 1 Unive rs 500 mcg 3-07 tablet by ity of tablet 00:00: mouth [place] 00 daily. [facility] 0 Yes 1{tbl} Take 1 Unive rs 500 mcg 3-07 tablet by ity of tablet 00:00: mouth [place] 00 daily. [facility] 0 Yes 1{tbl} Take 1 Unive rs 500 mcg 3-07 tablet by ity of tablet 00:00: mouth [place] 00 daily. [facility] 0 Yes 1{tbl} Take 1 Unive rs 500 mcg 3-07 tablet by ity of tablet 00:00: mouth [place] 00 daily. [facility] Yes 250ug Take 250 Univ ers 500 mcg 3-07 mcg by ity of tablet 00:00: mouth [place] 00 daily. [facility] 0 Yes 250ug Take 250 Univ ers 500 mcg 3-07 mcg by ity of tablet 00:00: mouth [place] 00 daily. [facility] 2015-0 Yes 250ug Take 250 Univ ers 500 mcg 3-07 mcg by ity of tablet 00:00: mouth [place] 00 daily. [facility] 2015-0 Yes 250ug Take 250 Univ ers 500 mcg 3-07 mcg by ity of tablet 00:00: mouth [place] 00 daily. [facility] 2015-0 Yes 250ug Take 250 Univ ers 500 mcg 3-07 mcg by ity of tablet 00:00: mouth [place] 00 daily. [facility] 0 Yes 250ug Take 250 Univ ers 500 mcg 3-07 mcg by ity of tablet 00:00: mouth [place] 00 daily. [facility] 2015-0 Yes 1{tbl} Take 1 Unive rs 500 mcg 3-07 tablet by ity of tablet 00:00: mouth [place] 00 daily. [facility] 2015-0 Yes 250ug Take 250 Univ ers 500 mcg 3-07 mcg by ity of tablet 00:00: mouth [place] 00 daily. [facility] 0 Yes 250ug Take 250 Univ ers 500 mcg 3-07 mcg by ity of tablet 00:00: mouth [place] 00 daily. [facility] 2015-0 Yes 250ug Take 250 Univ ers 500 mcg 3-07 mcg by ity of tablet 00:00: mouth [place] 00 daily. [facility] 2015-0 Yes 250ug Take 250 Univ ers 500 mcg 3-07 mcg by ity of tablet 00:00: mouth [place] 00 daily. [facility] 2015-0 Yes 250ug Take 250 Univ ers 500 mcg 3-07 mcg by ity of tablet 00:00: mouth [place] 00 daily. [facility] 2015-0 Yes 250ug Take 250 Univ ers 500 mcg 3-07 mcg by ity of tablet 00:00: mouth [place] 00 daily. [facility] 2015-0 Yes 250ug Take 250 Univ ers 500 mcg 3-07 mcg by ity of tablet 00:00: mouth [place] 00 daily. [facility] 2015-0 Yes 250ug Take 250 Univ ers 500 mcg 3-07 mcg by ity of tablet 00:00: mouth [place] 00 daily. [facility] 2015-0 Yes 250ug Take 250 Univ ers 500 mcg 3-07 mcg by ity of tablet 00:00: mouth [place] 00 daily. [facility] 2016-0 Yes 1{tbl} Take 1 Unive rs 500 mcg 3-07 tablet by ity of tablet 00:00: mouth [place] 00 daily. [facility] 2016-0 Yes 250ug Take 250 Univ ers 500 mcg 3-07 mcg by ity of tablet 00:00: mouth [place] 00 daily. [facility] 2015-0 Yes 250ug Take 250 Univ ers 500 mcg 3-07 mcg by ity of tablet 00:00: mouth [place] 00 daily. [facility] 2015-0 Yes 250ug Take 250 Univ ers 500 mcg 3-07 mcg by ity of tablet 00:00: mouth [place] 00 daily. [facility] 2015-0 Yes 250ug Take 250 Univ ers 500 mcg 3-07 mcg by ity of tablet 00:00: mouth [place] 00 daily. [facility] 2015-0 Yes 1{tbl} Take 1 Unive rs 500 mcg 3-07 tablet by ity of tablet 00:00: mouth [place] 00 daily. [facility] 2015-0 Yes 250ug Take 250 Univ ers 500 mcg 3-07 mcg by ity of tablet 00:00: mouth [place] 00 daily. [facility] 2015-0 Yes 250ug Take 250 Univ ers 500 mcg 3-07 mcg by ity of tablet 00:00: mouth [place] 00 daily. [facility] 2015-0 Yes 250ug Take 250 Univ ers 500 mcg 3-07 mcg by ity of tablet 00:00: mouth [place] 00 daily. [facility] 2015-0 Yes 1{tbl} Take 1 Unive rs 500 mcg 3-07 tablet by ity of tablet 00:00: mouth [place] 00 daily. [facility] 2015-0 Yes 250ug Take 250 Univ ers 500 mcg 3-07 mcg by ity of tablet 00:00: mouth [place] 00 daily. [facility] 2015-0 Yes 250ug Take 250 Univ ers 500 mcg 3-07 mcg by ity of tablet 00:00: mouth [place] 00 daily. [facility] 2015-0 Yes 1{puff} Inhale 1 Univer s ELLIPTA 2-02 Puff ity of 100-25 00:00: daily. [place] mcg/dose 00 Medical [facility] 2016-0 Yes 1{puff} Inhale 1 Univer s ELLIPTA 2-02 Puff ity of 100-25 00:00: daily. [place] mcg/dose 00 Medical [facility] Yes 1{puff} Inhale 1 Univer s ELLIPTA 2-02 Puff ity of 100-25 00:00: daily. [place] mcg/dose 00 Medical [facility] Yes 1{puff} Inhale 1 Univer s ELLIPTA 2-02 Puff ity of 100-25 00:00: daily. [place] mcg/dose 00 Medical [facility] Yes 1{puff} Inhale 1 Univer s ELLIPTA 2-02 Puff ity of 100-25 00:00: daily. [place] mcg/dose 00 Medical [facility] Yes 1{puff} Inhale 1 Univer s ELLIPTA 2-02 Puff ity of 100-25 00:00: daily. [place] mcg/dose 00 Medical [facility] Yes 1{puff} Inhale 1 Univer s ELLIPTA 2-02 Puff ity of 100-25 00:00: daily. [place] mcg/dose 00 Medical [facility] Yes 1{puff} Inhale 1 Univer s ELLIPTA 2-02 Puff ity of 100-25 00:00: daily. [place] mcg/dose 00 Medical [facility] Yes 1{puff} Inhale 1 Univer s ELLIPTA 2-02 Puff ity of 100-25 00:00: daily. [place] mcg/dose 00 Medical [facility] Yes 1{puff} Inhale 1 Univer s ELLIPTA 2-02 Puff ity of 100-25 00:00: daily. [place] mcg/dose 00 Medical [facility] Yes 1{puff} Inhale 1 Univer s ELLIPTA 2-02 Puff ity of 100-25 00:00: daily. [place] mcg/dose 00 Medical [facility] Yes 1{puff} Inhale 1 Univer s ELLIPTA 2-02 Puff ity of 100-25 00:00: daily. [place] mcg/dose 00 Medical [facility] Yes 1{puff} Inhale 1 Univer s ELLIPTA 2-02 Puff ity of 100-25 00:00: daily. [place] mcg/dose 00 [facility] 2015-0 Yes 1{puff} Inhale 1 Univer s ELLIPTA 2-02 Puff ity of 100-25 00:00: daily. [place] mcg/dose 00 [facility] 2015-0 Yes 1{puff} Inhale 1 Univer s ELLIPTA [...] Immunizations Ordered Filled Immunization Date Status Comments [facility] e Immunization Name Name Influenza Virus 2019-04-07 Completed [facility] Vaccine 00:00:00 [facility] Influenza Virus 2019-04-07 Completed [facility] y of Vaccine 00:00:00 [facility] Influenza Virus 2019-04-07 Completed [facility] y of Vaccine 00:00:00 [facility] Influenza Virus 2019-04-07 Completed [facility] y of Vaccine 00:00:00 [facility] Influenza Virus 2019-04-07 Completed [facility] y of Vaccine 00:00:00 [facility] Influenza Virus 2019-04-07 Completed [facility] y of Vaccine 00:00:00 [facility] Influenza Virus 2019-04-07 Completed [facility] y of Vaccine 00:00:00 [facility] Influenza Virus 2019-04-07 Completed [facility] y of Vaccine 00:00:00 [facility] Influenza Virus 2019-04-07 Completed [facility] y of Vaccine 00:00:00 [facility] Influenza Virus 2019-04-07 Completed [facility] y of Vaccine 00:00:00 [facility] Influenza Virus 2019-04-07 Completed [facility] y of Vaccine 00:00:00 [facility] Influenza Virus 2019-04-07 Completed [facility] y of Vaccine 00:00:00 [facility] Influenza Virus 2019-04-07 Completed Universit y of Vaccine 00:00:00 [facility] Influenza Virus 2019-04-07 Completed Universit y of Vaccine 00:00:00 [facility] Influenza Virus 2019-04-07 Completed Universit y of Vaccine 00:00:00 [facility] Influenza Virus 2019-04-07 Completed Universit y of Vaccine 00:00:00 [facility] Influenza Virus 2019-04-07 Completed Universit y of Vaccine 00:00:00 [facility] Influenza Virus 2019-04-07 Completed Universit y of Vaccine 00:00:00 [facility] Influenza Virus 2019-04-07 Completed Universit y of Vaccine 00:00:00 [facility] Influenza Virus 2019-04-07 Completed Universit y of Vaccine 00:00:00 [facility] Influenza Virus 2019-04-07 Completed Universit y of Vaccine 00:00:00 [facility] Influenza Virus 2019-04-07 Completed Universit y of Vaccine 00:00:00 [facility] Influenza Virus 2019-04-07 Completed Universit y of Vaccine 00:00:00 [facility] Influenza Virus 2019-04-07 Completed Universit y of Vaccine 00:00:00 [facility] Influenza Virus 2019-04-07 Completed Universit y of Vaccine 00:00:00 [facility] Influenza Virus 2019-04-07 Completed Universit y of Vaccine 00:00:00 [facility] Influenza Virus 2019-04-07 Completed Universit y of Vaccine 00:00:00 [facility] Influenza Virus 2019-04-07 Completed Universit y of Vaccine 00:00:00 [facility] Influenza Virus 2019-04-07 Completed Universit y of Vaccine 00:00:00 [facility] Influenza Virus 2019-04-07 Completed Universit y of Vaccine 00:00:00 [facility] Influenza Virus 2019-04-07 Completed Universit y of Vaccine 00:00:00 [facility] Influenza Virus 2019-04-07 Completed Universit y of Vaccine 00:00:00 [facility] Influenza Virus 2019-04-07 Completed Universit y of Vaccine 00:00:00 [facility] Influenza Virus 2019-04-07 Completed Universit y of Vaccine 00:00:00 [facility] Influenza Virus 2019-04-07 Completed Universit y of Vaccine 00:00:00 [facility] Influenza Virus 2019-04-07 Completed Universit y of Vaccine 00:00:00 [facility] Influenza Virus 2019-04-07 Completed Universit y of Vaccine 00:00:00 [facility] Influenza Virus 2019-04-07 Completed Universit y of Vaccine 00:00:00 [facility] Influenza Virus 2019-04-07 Completed Universit y of Vaccine 00:00:00 [facility] Influenza Virus 2019-04-07 Completed [facility]it y of Vaccine 00:00:00 [facility] Influenza Virus 2019-04-07 Completed Universit y of Vaccine 00:00:00 [facility] Influenza Virus 2019-04-07 Completed Universit y of Vaccine 00:00:00 [facility] Influenza Virus 2019-04-07 Completed Universit y of Vaccine 00:00:00 [facility] Influenza Virus 2019-04-07 Completed Universit y of Vaccine 00:00:00 [facility] Influenza Virus 2019-04-07 Completed Universit y of Vaccine 00:00:00 [facility] Vital Signs Vital Name Observation Time Observation Value Comments Source Systolic blood 2020-11-20 16:07:00 143 mm[Hg] Univer sity of pressure [facility] Diastolic blood 2020-11-20 16:07:00 77 mm[Hg] Unive rsity of [facility] Heart rate 2020-11-20 16:07:00 114 /min [facility] Body temperature 2020-11-20 16:07:00 [facility].39 [facility] 2020-11-20 16:07:00 152.4 cm [facility] Body weight 2020-11-20 16:07:00 52.844 kg [facility] BMI 2020-11-20 16:07:00 22.75 kg/m2 [facility] Oxygen saturation in 2020-11-20 16:07:00 96 /min University of Arterial blood by [facility] Pulse oximetry Branch Systolic blood 2020-03-29 05:00:00 165 mm[Hg] Univer sity of pressure [facility] Diastolic blood 2020-03-29 05:00:00 88 mm[Hg] Unive rsity of pressure [facility] Heart rate 2020-03-29 05:00:00 82 /min Universi ty [facility] Respiratory rate 2020-03-29 05:00:00 20 [facility] in 2020-03-29 05:00:00 96 /min University of Arterial blood by [facility] Pulse oximetry Branch Body temperature 2020-03-29 01:46:00 37.56 Geovanna Univ ersity of [facility] Body weight 2020-03-29 01:46:00 51.71 kg [facility] BMI 2020-03-29 01:46:00 22.26 kg/m2 [facility] Systolic blood 2020-03-29 05:00:00 165 mm[Hg] Univer sity of pressure [facility] Diastolic blood 2020-03-29 05:00:00 88 mm[Hg] Unive rsity of pressure [facility] Heart rate 2020-03-29 05:00:00 82 /min [facility] Respiratory rate 2020-03-29 05:00:00 20 /min Univ ersity of [facility] Oxygen saturation in 2020-03-29 05:00:00 96 /min University of Arterial blood by [facility] Pulse oxim[facility] Branch Body temperature 2020-03-29 01:46:00 37.56 Geovanna Univ ersity of [facility] Body weight 2020-03-29 01:46:00 51.71 kg [facility] BMI 2020-03-29 01:46:00 22.26 kg/m2 [facility] Systolic blood 2020-02-23 00:25:00 99 mm[Hg] Univer sity of pressure [facility] Diastolic blood 2020-02-23 00:25:00 50 mm[Hg] Unive rsity of pressure [facility] Heart rate 2020-02-23 00:25:00 77 /min [facility] Body temperature 2020-02-23 00:25:00 36.61 Geovanna Univ ers[facility] Respiratory rate 2020-02-23 00:25:00 18 /min Univ ersity of [facility] Oxygen saturation in 2020-02-23 00:25:00 96 /min [facility] of Arterial blood by [facility] P[facility] oxim[facility] Branch Body weight 2020-02-22 08:18:00 53.479 kg [facility] BMI 2020-02-22 08:18:00 23.03 kg/m2 [facility] Systolic blood 2020-02-23 00:25:00 99 mm[Hg] Univer sity of pressure [facility] Diastolic blood 2020-02-23 00:25:00 50 mm[Hg] Unive rsity of pressure [facility] Heart rate 2020-02-23 00:25:00 77 /min [facility] Body temperature 2020-02-23 00:25:00 36.61 Geovanna Univ ersity of [facility] Respiratory rate 2020-02-23 00:25:00 18 /min Univ ersity of [facility] Oxygen saturation in 2020-02-23 00:25:00 96 /min [facility] blood by [place] [employer] [facility] P[facility] Body weight 2020-02-22 08:18:00 53.479 kg [facility] BMI 2020-02-22 08:18:00 23.03 kg/m2 [facility] Systolic blood 2020-02-15 00:00:00 153 mm[Hg] Univer sity of pressure [facility] Diastolic blood 2020-02-15 00:00:00 69 mm[Hg] Unive rsity of pressure [facility] Heart rate 2020-02-15 00:00:00 96 /min [facility] Respiratory rate 2020-02-15 00:00:00 14 /min Univ ersity of [facility] Oxygen saturation in 2020-02-15 00:00:00 95 /min [facility] blood by [place] [employer] [facility] Body temperature 2020-02-14 20:13:00 37.39 Geovanna Univ ers[facility] Body weight 2020-02-14 20:13:00 52.164 kg [facility] BMI 2020-02-14 20:13:00 22.46 kg/m2 [facility] Systolic blood 2020-02-14 19:24:00 153 mm[Hg] Univer sity of pressure [facility] Diastolic blood 2020-02-14 19:24:00 90 mm[Hg] Unive rsity of pressure [facility] Heart rate 2020-02-14 19:24:00 120 /min [facility] Body temperature 2020-02-14 19:22:00 36.83 Geovanna Univ ers[facility] Respiratory rate 2020-02-14 19:22:00 21 /min Univ ersity [facility] Body height 2020-02-14 19:22:00 152.4 cm [facility] Body weight 2020-02-14 19:22:00 52.164 kg [facility] BMI 2020-02-14 19:22:00 22.46 kg/m2 [facility] Oxygen saturation in 2020-02-14 19:22:00 95 /min [facility] Arterial blood by [facility] Pulse oximetry Branch Systolic blood 2020-01-29 16:22:00 171 mm[Hg] Univer sity of pressure [facility] Diastolic blood 2020-01-29 16:22:00 79 mm[Hg] Unive rsity of pressure [facility] Heart rate 2020-01-29 16:21:00 100 /min [facility] Body temperature 2020-01-29 16:21:00 36.5 Geovanna Univ ers[facility] Respiratory rate 2020-01-29 16:21:00 16 /min Univ ersity [facility] Body height 2020-01-29 16:21:00 152.4 cm [facility] Body weight 2020-01-29 16:21:00 53.071 kg [facility] BMI 2020-01-29 16:21:00 22.85 kg/m2 [facility] Oxygen saturation in 2020-01-29 16:21:00 100 /min [facility] Arterial blood by [facility] Pulse oximetry Branch Systolic blood 2020-01-03 21:00:00 166 mm[Hg] Univer sity of pressure [facility] Diastolic blood 2020-01-03 21:00:00 76 mm[Hg] Unive rsity of pressure [facility] Heart rate 2020-01-03 21:00:00 100 /min [facility] Respiratory rate 2020-01-03 21:00:00 17 /min Univ ersity of [facility] Oxygen saturation in 2020-01-03 21:00:00 94 /min [facility] Arterial blood by [facility] Pulse oximetry Branch Body temperature 2020-01-03 16:45:00 36.72 Geovanna Univ ersity [facility] Body weight 2020-01-03 16:45:00 53.071 kg [facility] BMI 2020-01-03 16:45:00 22.11 kg/m2 [facility] Heart rate 2019-12-08 13:35:00 111 /min [facility] Respiratory rate 2019-12-08 13:35:00 20 /min Univ ersity of [facility] Oxygen saturation in 2019-12-08 13:35:00 94 /min [facility] Arterial blood by [facility] Pulse oximetry Branch Systolic blood 2019-12-08 12:42:00 169 mm[Hg] Univer sity of pressure [facility] Diastolic blood 2019-12-08 12:42:00 76 mm[Hg] Unive rsity of pressure [facility] Body temperature 2019-12-08 12:42:00 36.78 Geovanna Univ ersity [facility] Body height 2019-12-05 16:38:00 154.9 cm [facility] Body weight 2019-12-05 16:38:00 54.885 kg [facility] BMI 2019-12-05 16:38:00 22.86 kg/m2 [facility] Systolic blood 2019-09-20 20:34:00 164 mm[Hg] Univer sity of pressure [facility] Diastolic blood 2019-09-20 20:34:00 76 mm[Hg] Unive rsity of pressure [facility] Heart rate 2019-09-20 20:34:00 80 /min [facility] Body temperature 2019-09-20 20:29:00 36.67 Geovanna Univ ers[facility] Respiratory rate 2019-09-20 20:29:00 20 /min Univ ersity [facility] Body height 2019-09-20 20:29:00 157.5 cm [facility] Body weight 2019-09-20 20:29:00 52.345 kg [facility] BMI 2019-09-20 20:29:00 21.11 kg/m2 [facility] Oxygen saturation in 2019-09-20 20:29:00 98 /min [facility] Arterial blood by [facility] Pulse oximetry Branch Systolic blood 2019-08-31 22:02:00 159 mm[Hg] Univer sity of pressure [facility] Diastolic blood 2019-08-31 22:02:00 79 mm[Hg] Unive rsity of pressure [facility] Heart rate 2019-08-31 22:02:00 101 /min [facility] Body temperature 2019-08-31 22:02:00 36.56 Geovanna Univ [facility] Body height 2019-08-31 22:02:00 153.7 cm [facility] Body weight 2019-08-31 22:02:00 52.617 kg [facility] BMI 2019-08-31 22:02:00 22.28 kg/m2 [facility] Systolic blood 2019-03-29 19:16:00 157 mm[Hg] Univer sity of pressure [facility] Diastolic blood 2019-03-29 19:16:00 71 mm[Hg] Unive rsity of pressure [facility] Heart rate 2019-03-29 19:16:00 114 /min [facility] Body temperature 2019-03-29 19:16:00 36.17 Geovanna Univ ersity [facility] Respiratory rate 2019-03-29 19:16:00 22 /min Univ ersity [facility] Body weight 2019-03-29 19:16:00 52.98 kg [facility] BMI 2019-03-29 19:16:00 18.85 kg/m2 [facility] Systolic blood 2019-03-23 19:02:00 141 mm[Hg] Univer sity of pressure [facility] Diastolic blood 2019-03-23 19:02:00 69 mm[Hg] Unive rsity of pressure [facility] Heart rate 2019-03-23 19:02:00 80 /min [facility] Body temperature 2019-03-23 19:02:00 36.83 Geovanna Univ ers[facility] Respiratory rate 2019-03-23 19:02:00 18 /min Univ ersity [facility] Body height 2019-03-23 19:02:00 167.6 cm [facility] ty [facility] Body weight 2019-03-23 19:02:00 52.527 kg [facility] BMI 2019-03-23 19:02:00 18.69 kg/m2 [facility] Systolic blood 2019-03-16 21:40:00 141 mm[Hg] Univer sity of pressure [facility] Diastolic blood 2019-03-16 21:40:00 70 mm[Hg] Unive rsity of pressure [facility] Heart rate 2019-03-16 21:40:00 110 /min [facility] Body temperature 2019-03-16 20:57:00 37.22 Geovanna Univ ersity [facility] Body height 2019-03-16 20:57:00 154.9 cm [facility] Body weight 2019-03-16 20:57:00 54.432 kg [facility] BMI 2019-03-16 20:57:00 22.67 kg/m2 [facility] Procedures Procedure Date / Time Performing Source Performed Clinician EXTERNAL PROVIDER RECORDS 2020-12-05 [facility] sity of 05:01:00 Unassigned, No [facility] AUTHORIZATION TO RELEASE PHI TO 2020-11-20 [facility] 05:01:00 Unassigned, No [facility] URINALYSIS 2020-03-29 Maribell Foster [place] of 03:09:00 [facility] THYROID STIMULATING HORMONE 2020-03-29 Maribell Foster [facility] ersity of 03:04:00 [facility] COMP. METABOLIC PANEL (70067) 2020-03-29 Maribell Foster iversity of 03:04:00 [facility] CBC WITH DIFF 2020-03-29 Maribell Foster [place] of 03:04:00 [facility] GLYCOSYLATED HEMOGLOBIN (A1C) 2020-03-29 Maribell Foster iversity of 03:04:00 [facility] ECHO ROUTINE W/DOPPLER COLOR 2020-02-22 Rebecca Cantu [facility] versity of 20:06:52 [facility] TROPONIN I 2020-02-22 Rebecca Cantu [place] of 12:39:00 [facility] TROPONIN I 2020-02-22 [facility] 05:09[facility] IRON PANEL 2020-02-22 [facility] 05:09:00 [facility] GLYCOSYLATED HEMOGLOBIN (A1C) 2020-02-22 Rebecca Cantu Un iversity of 05:09:00 [facility] TROPONIN I 2020-02-22 Pepe [facility] of 05:08:00 [facility] BASIC METABOLIC PANEL (NA, K, CL, 2020-02-22 Rebecca Cantu of CO2, GLUCOSE, BUN, CREATININE, CA) 05:08:00 [facility] LIPID PANEL (40311)(TOTAL 2020-02-22 [facility] sity of CHOLESTEROL, TRIGLYCERIDES, HDL) 05:08:00 [facility] CBC WITH DIFF 2020-02-22 Pepe [facility] of 05:08:00 [facility] VITAMIN B12, LEVEL 2020-02-22 [facility] of 05:05:00 [facility] VITAMIN D, 25-OH 2020-02-22 [facility], [facility] of 05:05:00 [facility] PROCALCITONIN 2020-02-22 [facility], [facility] of 05:05:00 [facility] FECAL LEUKOCYTES 2020-02-22 [facility], [facility] of 04:46:00 [facility] URINALYSIS 2020-02-22 Pepe [facility] of 04:34:00 [facility] LEGIONELLA URINARY ANTIGEN TST 2020-02-22 Pepe [facility] niversity of 04:34:00 [facility] PNEUMOCOCCAL ANTIGEN 2020-02-22 Pepe [facility] of 04:33:00 [facility] CLOSTRIDIUM DIFFICILE TOXIN 2020-02-22 Pepe [facility] ersity of 03:15:00 [facility] XR ABDOMEN 2 VW 2020-02-22 Pepe [facility] of 01:50:00 [facility] EKG-12 LEAD 2020-02-21 [facility] of 18:10:08 Unassigned, No [facility] EKG-12 LEAD 2020-02-21 Titi Hahn of 18:02:02 [facility] LACTIC ACID WHOLE BLOOD 2020-02-21 Titi Hahn [facility] ty of 17:01:00 [facility]OS[facility]ORUS 2020-02-21 [facility] LIPASE 2020-02-21 Titi Hahn [place] of 17:00:00 [facility] MAGNESIUM 2020-02-21 Jessie [facility] of 17:00:00 [facility] FERRITIN SERUM 2020-02-21 Pepe [facility] of 17:00:00 [facility] TROPONIN I 2020-02-21 Titi Hahn of 17:00:00 [facility] COMP. METABOLIC PANEL (77926) 2020-02-21 Titi Hahn iversity of 17:00:00 [facility] LIPID PANEL (70123)(TOTAL 2020-02-21 Rebecca Cantu [employer] of CHOLESTEROL, TRIGLYCERIDES, HDL) 17:00:00 Thania [facility] XR CHEST 1 VW 2020-02-21 Titi Hahn of 15:31:44 [facility] COVID-19 (ID NOW RAPID TESTING) 2020-02-21 Titi Hahn [place] of 15:23:00 [facility] CBC WITH DIFF 2020-02-21 [facility] 15:19:00 [facility] CONSENT/REFUSAL FOR DIAGNOSIS AND 2020-02-21 [facility] 14:24:00 Unassigned, No [facility] XR CHEST 1 VW 2020-02-14 Rcihard Rachelle [place] of 22:30:31 [facility] LACTIC ACID WHOLE BLOOD 2020-02-14 Richard Rachelle [facility] ty of 22:23:00 [facility] URINALYSIS 2020-02-14 Richard [facility] of 21:49:00 [facility] UNILATERAL VENOUS DUPLEX LOWER 2020-02-14 Rachelle Ramos niversity of EXTREMITY BY VASCULAR LAB 21:23:18 [facility] LIPASE 2020-02-14 Titi Hahn [place] of 20:45:00 [facility] TROPONIN I 2020-02-14 Titi Hahn [place] of 20:45:00 [facility] THYROID STIMULATING HORMONE 2020-02-14 Richard [facility] ersity of 20:45:00 [facility] COMP. METABOLIC PANEL (87913) 2020-02-14 Titi Hahn iversity of 20:45:00 [facility] CBC WITH DIFF 2020-02-14 Titi Hahn [place] of 20:45:00 [facility] PROTHROMBIN TIME / INR 2020-02-14 Titi Hahnit y of 20:45:00 [facility] D-DIMER 2020-02-14 Richard [facility] of 20:45:00 [facility] ACTIVATED PARTIAL THRMPLAS NAVDEEP 2020-02-14 Titi Hahn niversity of 20:45:00 [facility] EKG-12 LEAD 2020-02-14 Singer [facility] of 20:43:52 [facility] EKG-12 LEAD 2020-02-14 Singer [facility] of 20:13:40 [facility] CT ABDOMEN PELVIS W CONTRAST 2020-01-03 Sb Canela Uni versity of 18:56:39 [facility] LIPASE 2020-01-03 Sb Canela [place] of 17:28:00 [facility] HEPATIC FUNCTION PANEL (15820) 2020-01-03 Sb Canela niversity of (ALB,T.PRO,BILI 17:28:00 [facility],BU/BC,ALT,AST,ALK PHOS) [place] BASIC METABOLIC PANEL (NA, K, CL, 2020-01-03 Merritt Canela [place] of CO2, GLUCOSE, BUN, CREATININE, CA) 17:28:00 [facility] CBC WITH DIFFERENTIAL 2020-01-03 Sb Canela of 17:28:00 [facility] PROTHROMBIN TIME / INR 2020-01-03 Sb Canela y of 17:28: [facility] ACTIVATED PARTIAL THRMPLAS NAVDEEP 2020-01-03 Sb Canela niversity of 17:28:00 [facility] URINALYSIS 2020-01-03 Sb Canela of 17:28:00 [facility] LACTIC ACID WHOLE BLOOD 2020-01-03 Sb Canela [facility] ty of 17:28:00 [facility] NOTICE OF PRIVACY PRACTICES 2020-01-03 [facility] ersity of 16:34:44 Unassigned, No [facility] CONSENT/REFUSAL FOR DIAGNOSIS AND 2020-01-03 [facility] of TREATMENT 16:34:21 Unassigned, No [facility] BASIC METABOLIC PANEL (NA, K, CL, 2019-12-06 Navid De Los Santos [place] of CO2, GLUCOSE, BUN, CREATININE, CA) 07:28:00 [facility] CBC WITH DIFFERENTIAL 2019-12-06 Emily De Los Santos [place] of 07:28:00 [facility] FL BARIUM SWALLOW ESOPHAGUS 2019-12-05 Emily De Los Santos [facility] ersity of 20:07:00 [facility] PHOSPHORUS 2019-12-05 Emily De Los Santos [place] of 15:42:00 [facility] MAGNESIUM 2019-12-05 [facility] of 15:42:00 [facility] BASIC METABOLIC PANEL (NA, K, CL, 2019-12-05 Navid De Los Santos [place] of CO2, GLUCOSE, BUN, CREATININE, CA) 15:42:00 [facility] CBC WITH DIFFERENTIAL 2019-12-05 Magali, Emily University of 15:42:00 [facility] LAPAROSCOPIC GLORY FUNDOPLICATION 2019-12-05 Jerald Sims [place] of 11:50:00 [facility] ESOPHAGOGASTRODUODENOSCOPY 2019-12-05 Bobby Sims [facility] of 11:50:00 [facility] CONSENT/REFUSAL FOR DIAGNOSIS AND 2019-12-05 Doctor [place] of TREATMENT 10:43:31 Unassigned, No [facility] ASSIGNMENT OF BENEFITS 2019-12-05 Doctor Universit y of 10:42:54 Unassigned, No [facility] HOME HEALTH - OTHER 2019-09-01 [facility] o f 06:01:00 Unassigned, No [facility] HOME HEALTH - OTHER 2019-08-24 [facility] o f 06:01:00 Unassigned, No [facility] - OTHER 2019-08-11 [facility] o f 06:01:00 Unassigned, No [facility] HOME HEALTH - OTHER 2019-08-03 [facility] o f 06:01:00 Unassigned, No [facility] HOME HEALTH - OTHER 2019-07-18 [facility] o f 06:01:00 Unassigned, No [facility] HOME HEALTH 485 2019-07-12 [facility] of 06:01:00 Unassigned, No [facility] HOME HEALTH - OTHER 2019-07-03 [facility] o f 06:01:00 Unassigned, No [facility] EXTERNAL PROVIDER RECORDS 2019-04-02 Doctor Marian sity of 05:01:00 Unassigned, No [facility] ASSIGNMENT OF BENEFITS 2019-03-16 Doctor Universit y of 20:47:08 Unassigned, No [facility] INSURANCE CORRESPONDENCE 2019-03-08 Doctor [facility] ity of 05:01:00 Unassigned, No [facility] Encounters Start End Encounter Admission Attending Care Care Encounter Source Date/Time Date/Time Type Type Clinicians Facility Department ID 2021-05-23 Emergency [facility] [id number] Univers 15:52:43 it[facility] of [facility] 2021-05-23 Emergency [facility] [id number] Univers 09:29:50 [facility] 2021-05-23 Emergency [facility] [id number] Univers 08:14:23 ity of [facility] 2021-05-22 Inpatient R BETAHNY [facility] AYLIN [id number] Univers 13:04:05 BOBBY ity of [facility] 2022-06-09 2022-06-09 Outpatient R ADITYA [facility] [id number] Univers 15:00:00 15:00:00 CANDIDA ity of [facility] 2020-12-30 2020-12-30 Outpatient R ZULEYKA [facility] [id number] Univers 15:45:00 15:45:00 WONDIFUL ity o f [facility] 2020-12-05 2020-12-05 Orders Doctor PHI 1.2.840.114 [id number] Univers 00:00:00 00:00:00 Only Unassigned, EVELYNE 350.1.13.10 ity of [facility] 4.2.7.2.686 Varinder as [phone] [address] 2020-11-20 2020-11-20 [facility] 1.2.840.114 [id number] [facility] Univers 10:48:51 11:42:30 Visit Sharla Pena 350.1.13.10 [place] [phone] Ct [address] Building 2020-11-20 2020-11-20 Outpatient R FAITH [facility] [id number] Univers 10:30:00 10:30:00 SHARLA ity o f [facility] 2020-11-20 2020-11-20 Orders Doctor YIP 1.2.840.114 [id number] Univers 00:00:00 00:00:00 Only Unassigned, EVELYNE 350.1.13.10 ity of [facility] 4.2.7.2.686 Varinder as [phone] [address] 2020-11-19 2020-11-19 Telephone [facility] 1.2.840.114 [id number] Univers 00:00:00 00:00:00 Wondiful A Health 350.1.13.10 ity of [place] 4.2.7.2.686 Varinder as Professio [phone] Ct dical nal 044 [place] Office Building One 2020-05-30 2020-05-30 Outpatient Phillip GARDINER [facility] [id number] Univers 14:00:00 14:00:00 WONDIFUL ity o f [facility] 2020-04-26 2020-04-26 Outpatient Phillip GARDINER [facility] [id number] Univers 11:00:00 11:00:00 WONDIFUL ity o f [facility] 2020-03-28 2020-03-29 Emergency [facility] 1.2.324.825 [id number] 20:48:00 00:17:00 Maribell Fisher [place] 350.1.13.10 [place] 4.2.7.2.686 [place] [phone] [facility] 2020-03-28 2020-03-29 Emergency [facility] 1.2.891.972 [id number] Univers 20:48:00 00:17:00 Maribell Garciaton 350.1.13.10 i [place] [phone] [place] 088744 [place] 2020-02-23 2020-02-23 Transition Wero, Shearn 1.2.840.114 [id number] 00:00:00 00:00:00 of Care Demetrio Breen [place] 350.1.13.10 [place] 4.2.7.2.686 [phone] [facility] 2020-02-23 2020-02-23 Transition Wero, Shearn 1.2.840.114 [id number] [facility] 00:00:00 00:00:00 of Care Demetrio Maiery 350.1.13.10 it[place] [phone] [address] 2020-02-21 2020-02-22 Emergency Titi Hahn [facility] 1.2.840. 114 [id number] 09:30:54 20:01:00 Prashanth Vo 350.1.13.10 [place] 4.2.7.2.686 [place] [phone] [facility] 2020-02-21 2020-02-22 Emergency Titi Hahn [facility] 1.2.840. 114 [id number] [facility] 09:30:54 20:01:00 VoPrashanth Jean 350.1.13.10 [place] [phone] [address] 2020-02-21 2020-02-21 [facility]medici [facility] [facility] 1.2.840.114 [id number] Univers 07:44:24 10:48:34 ne Visit [place] Breen Jean 350.1.13.10 [place] [phone] Ct dicmt nal [address] [place] [address] 2020-02-21 2020-02-21 Telemedici [facility] 1.2.840.114 [id number] 07:44:24 10:48:34 ne Visit [place] Breen [place] 350.1.13.10 [place] 4.2.7.2.686 Professio [phone] [address] 2020-02-21 2020-02-21 Outpatient R ZULEYKA [facility] [id number] Univers 08:00:00 08:00:00 WONDIFUL ity o f [facility] 2020-02-14 2020-02-14 Emergency Richard, [facility] 1.2.353.755 [id number] [facility] 15:20:24 19:50:00 Rachelle Jean 350.1.13.10 i [place] [phone] [address] 2020-02-14 2020-02-14 Urgent Provider, [facility] 1.2.840.114 [id number] Univers 14:13:11 15:38:31 Care [place], [place] [facility] 350.1.13.1 0 ity of [place] 4.2.7.2.686 Varinder as Professio [phone] Ct dicmt nal [address] [place] [address] Office Building One 2020-02-14 2020-02-14 Director [employer] 2, Adc Lab [facility] 1.2.840.114 [id number] Univers 13:39:57 13:54:57 Visit [place] Gardiner 350.1.13. 10 [place] [phone] Ct dical nal 353 [facility] 2020-02-14 2020-02-14 Outpatient R [facility] [id number] Univers 13:30:00 13:30:00 ity of [facility] 2020-02-14 2020-02-14 Case Zuleyka [facility] 1.2.840.114 [id number] Univers 00:00:00 00:00:00 Management Wondiful A [place] 350.1.13.10 [place] [phone] [facility] 044 [facility] 2020-02-08 2020-02-08 Telemedici Zuleyka [facility] 1.2.840.114 [id number] Univers 08:02:08 10:54:58 ne Visit Wondiful A [place] 350.1.13.10 [place] [phone] [facility] 044 [facility] 2020-02-08 2020-02-08 [facility] [id number] Univers 10:15:00 10:15:00 WONDIFUL ity o f [facility] 2020-02-04 2020-02-04 Telephone Zo Easley 1.2.840.114 [id number] Univers 00:00:00 00:00:00 EVELYNE 350.1.13.10 it y of HOSPITAL 4.2.7.2.686 Var[place] as [phone] [address] 2020-01-30 2020-01-30 Outpatient [facility] [id number] Univers 16:15:00 16:15:00 WONDIFUL ity o f [facility] 2020-01-29 2020-01-29 Urgent Pob1, Acute Care Clinic [facility] 1. 2.840.114 [id number] Univers 11:01:47 11:21:47 Care [facility] 350.1.13.10 ity of [place] 4.2.7.2.686 Varinder as Professio [phone] [facility] 044 [facility] Building One 2020-01-29 2020-01-29 Outpatient R [facility] [id number] Univers 11:20:00 11:20:00 ity of [facility] 2020-01-03 2020-01-03 Emergency X HILTON [facility] ERT [id number] Univers 11:46:19 16:35:00 SB ity of [facility] 2020-01-03 2020-01-03 Emergency [facility] 1.2.375.032 [id number] Univers 11:46:19 16:35:00 Sb [place] 350.1.13.10 i [place] [phone] [facility] 084 [place] 2020-01-03 2020-01-03 Orders Doctor PHI 1.2.840.114 [id number] Univers 00:00:00 00:00:00 Only Unassigned, EVELYNE 350.1.13.[address] [facility] 4.2.7.2.686 Varinder as [phone] [facility] 009 Branch 2019-12-25 2019-12-25 Outpatient [facility] [id number] Univers 13:00:00 13:00:00 WONDIFUL ity o f [facility] 2019-12-22 2019-12-22 Outpatient R BETHANY [facility] [id number] Univers 13:45:00 13:45:00 BOBBY ity of [facility] 2019-12-14 2019-12-14 Telephone [facility] 1.2.840.114 [id number] Univers 00:00:00 00:00:00 Wondiful A Health 350.1.13.10 ity of [place] 4.2.7.2.686 Varinder as Professio [phone] Ct dical nal 044 [place] Office Building One 2019-12-12 2019-12-12 Telephone [facility] 1.2.840.114 [id number] Univers 00:00:00 00:00:00 Wondiful A [place] 350.1.13.10 [place] [phone] Ct dical nal 044 Branch Building 2019-12-11 2019-12-11 Transition Abelino Conteh 1.2.840.114 [id number] Univers 00:00:00 00:00:00 of Care Demetrio Breen [place] 350.1.13.10 ity of [place] [phone] [facility] 403 Branch 2019-12-05 2019-12-08 Inpatient R BETHANY [facility] SCT [id number] Univers 05:41:49 15:24:00 BOBBY ity [facility] 2019-12-05 2019-12-08 Hospital Britta Sims 1.2.281.015 [id number] Univers 05:41:49 15:24:00 Encounter Bobby Rodarte [place] 350.1.13.10 ity of [facility] 4.2.7.2.686 Varinder as [phone] [facility] 091 Branch 2019-12-04 2019-12-04 Laboratory Only, Adc Test [facility] 1.2.840. 114 [id number] Univers 13:54:20 14:00:22 Only Bobby Sims [place] 350.1.13.10 [place] [phone] Ct dical nal 353 Branch Building 2019-12-04 2019-12-04 Outpatient R BETHANY [facility] [id number] Univers 13:45:00 13:45:00 BOBBY ity [facility] 2019-11-27 2019-11-27 Telephone [facility] 1.2.840.114 [id number] Univers 00:00:00 00:00:00 Wondiful A Health 350.1.13.10 ity of [place] 4.2.7.2.686 Varinder as Professio [phone] Ct dical nal 044 Branch Office Building One 2019-11-21 2019-11-21 Prep For LUIS A Persaud[facility] 1.2.840.114 [id number] Univers 00:00:00 00:00:00 Surgery Kalyn Y HEALTH 350.1.13.10 i ty of [place] [phone] [facility] 185 Branch 2019-11-21 2019-11-21 Case LUIS A Pers[facility] 1.2.840.114 [id number] Univers 00:00:00 00:00:00 Management Kalyn Y HEALTH 350.1.13.10 [place] [phone] [address] 2019-11-21 2019-11-21 Case Hung, [facility]ERS[facility] 1.2.840.114 [id number] Univers 00:00:00 00:00:00 Management Kalyn Y HEALTH 350.1.13.10 ity of [place] [phone] [address] 2019-11-13 2019-11-13 Telephone Zuleyka [facility] 1.2.840.114 [id number] Univers 00:00:00 00:00:00 Wondiful A Health 350.1.13.10 ity of [place] 4.2.7.2.686 Varinder as Professio [phone] Ct dical nal 044 [place] Office [facility] One 2019-10-05 2019-10-05 Telephone Hung, LUIS AIT 1.2.840.114 [id number] Univers 00:00:00 00:00:00 Kalyn Y HEALTH 350.1.13.10 i ty of [place] [phone] [address] 2019-09-27 2019-09-27 Case Hung, [facility] 1.2.840.114 [id number] Univers 00:00:00 00:00:00 Management Kalyn Y HEALTH 350.1.13.10 it[place] of [place] [phone] [address] 2019-09-22 2019-09-22 Prep For Hung, UNIVERSIT 1.2.840.114 [id number] Univers 00:00:00 00:00:00 Surgery Kalyn Y HEALTH 350.1.13.10 i ty of [place] [phone] [address] 2019-09-20 2019-09-20 Office Bethany [facility] 1.2.840.114 [id number] Univers 14:19:19 14:46:30 Visit Bobbyjessica Pena 350.1.13.10 it[place] of [place] [phone] [facility] 185 [address] Building 2019-09-20 2019-09-20 Outpatient R BETHANY [facility] [id number] Univers 14:15:00 14:15:00 BOBBY ity of [facility] 2019-09-01 2019-09-01 Orders Doctor YIP 1.2.840.114 [id number] Univers 00:00:00 00:00:00 Only Unassigned, EVELYNE 350.1.13.10 ity of [facility] 4.2.7.2.686 Varinder as [phone] [address] 2019-08-31 2019-08-31 Office Zuleyka [facility] 1.2.840.114 [id number] Univers 15:53:30 16:20:15 Visit [place] Breen [employer] 350.1.13.10 ity of [place] 4.2.7.2.686 Varinder as Professio [phone] [facility] 044 [place] Office Building One 2019-08-24 2019-08-24 Orders Doctor YIP 1.2.840.114 [id number] Univers 00:00:00 00:00:00 Only Unassigned, EVELYNE 350.1.13.10 it[facility] of [facility] 4.2.7.2.686 Varinder as [phone] [address] 2019-08-11 2019-08-11 Orders Doctor YIP 1.2.840.114 [id number] Univers 00:00:00 00:00:00 Only Unassigned, EVELYNE 350.1.13.10 ity of [facility] 4.2.7.2.686 Varinder as [phone] [address] 2019-08-03 2019-08-03 Orders Doctor PHI Deluna.2.840.114 [id number] Univers 00:00:00 00:00:00 Only Unassigned, EVELYNE 350.1.13.10 ity of [facility] 4.2.7.2.686 Varinder as [phone] [address] 2019-07-18 2019-07-18 Orders Doctor PHI 1.2.840.114 [id number] Univers 00:00:00 00:00:00 Only Unassigned, EVELYNE 350.1.13.10 ity of [facility] 4.2.7.2.686 Varinder as [phone] [address] 2019-07-14 2019-07-14 Outpatient R ZULEYKA [facility] [id number] Univers 15:23:29 19:14:00 WONDIFUL ity o f [facility] 2019-07-12 2019-07-12 Orders Doctor PHI 1.2.840.114 [id number] Univers 00:00:00 00:00:00 Only Unassigned, EVELYNE 350.1.13.10 [facility] of [facility] 4.2.7.2.686 Varinder as [phone] [address] 2019-07-03 2019-07-03 Orders Doctor YIP 1.2.840.114 [id number] Univers 00:00:00 00:00:00 Only Unassigned, EVELYNE 350.1.13.10 [facility] of [facility] 4.2.7.2.686 Varinder as [phone] [address] 2019-04-03 2019-04-03 Telephone [facility] 1.2.840.114 [id number] Univers 00:00:00 00:00:00 Wondiful A Health 350.1.13.10 ity of [place] 4.2.7.2.686 Varinder as Professio [phone] [address] Office [facility] One 2019-04-02 2019-04-02 Orders Doctor YIP 1.2.840.114 [id number] Univers 00:00:00 00:00:00 Only Unassigned, EVELYNE 350.1.13.10 it[facility] of [facility] 4.2.7.2.686 Varinder as [phone] [address] 2019-03-29 2019-03-29 Office Bethany [facility] 1.2.840.114 [id number] Univers 14:03:52 14:50:17 Visit Bobby Rodarte [place] 350.1.13.10 [place] of [place] [phone] Ct flor erwin 185 [facility] 2019-03-24 2019-03-24 Telephone Zuleyka [facility] 1.2.840.114 [id number] Univers 00:00:00 00:00:00 Wondiful A Health 350.1.13.10 ity of [place] 4.2.7.2.686 Varinder as Professio [phone] [facility] 044 [facility] 2019-03-23 2019-03-23 Office Hunter [facility] 1.2.567.966 [id number] Univers 13:49:44 15:19:34 Visit Ping Pena 350.1.13.10 i ty of [place] [phone] [facility] 377 [facility] 2019-03-23 2019-03-23 Director [employer] Lab, Adc Fam Pob I [facility] 1.2. 840.114 [id number] Univers 13:25:06 13:41:58 Visit Cuba Gardiner [facility] 350.1.13.1 0 ity of [place] 4.2.7.2.686 Varinder as Professio [phone] [facility] 044 [facility] 2019-03-16 2019-03-16 Office Zuleyka [facility] 1.2.840.114 [id number] Univers 15:47:43 16:37:58 Visit Wondiful A Health 350.1.13.10 ity of [place] 4.2.7.2.686 Varinder as Professio [phone] [address] 2019-03-16 2019-03-16 Orders Doctor PHI 1.2.840.114 [id number] Univers 00:00:00 00:00:00 Only Unassigned, EVELYNE 350.1.13.10 [facility] of [facility] 4.2.7.2.686 Varinder as [phone] [facility] 009 [place] 2019-03-15 2019-03-15 Telephone Zuleyka [facility] 1.2.840.114 [id number] Univers 00:00:00 00:00:00 Wondiful A Health 350.1.13.10 ity of [place] 4.2.7.2.686 Varinder as Jennifer [phone] Ct dical nal 044 Branch Office Building One 2019-03-08 2019-03-08 Orders Doctor PHI 1.2.840.114 [id number] 00:00:00 00:00:00 Only Unassigned, EVELYNE 350.1.13.10 it[facility] of [facility] 4.2.7.2.686 Varinder as [phone] [facility] 009 [place] Results Test Description Test Time Test Comments Results Result Comments Source GLYCOSYLATED HEMOGLOBIN (A1C) 2020-03-29 04:32:00 Test Item Value Reference Range Interpretation Comme nts HGB A1C (test code = 4548-4) 5.4 % 4-6 KIM (test code = KIM) %A1C (NGSP) Interpretation (ADA)4.8-5.6 ? ? Normal or (Non-Diabetic Range)5.7-6.4 ? ? Increased Risk (Pre-Diabetic)>6.5 ?Diabetes Indicated Lab Interpretation (test code = Normal 25660-2) [facility] [id number] 04:04:00 Test Item Value Reference Range Interpretation Comments TSH (test code = See_Comment [Automated message] 7373089853) The system [employer] generated this result transmitted ref erence range: 0.45 - 4 .70 mIU/L. The refe rence range was not u sed to interpret this result as normal/abnor mal. Lab Interpretation (test Normal code = 11680-6) [facility]2020-09-04 03:38:00 Test Item Value Reference Range Interpretation Comments APPEARANCE (test code = Clear Clear 2819116561) COLOR (test code = Yellow Yellow 5729524612) PH (test code = 4.8-8.0 7764275365) SP GRAVITY (test code = 1.003-1.030 2983733896) GLU U QUAL (test code = 50 mg/dL Normal A 0338584431) BLOOD (test code = 1+ Negative A 2672145108) KETONES (test code = Negative Negative 6158374159) PROTEIN (test code = Negative Negative 2887-8) UROBILIN (test code = Normal Normal 1369129377) BILIRUBIN (test code = Negative Negative 0874913785) NITRITE (test code = Negative Negative 5796269469) LEUK NASRIN (test code = Negative Negative 1568334834) RBC/HPF (test code = See_Comment [Autom ated message] 8649214754) The system [employer] generated this result transmitted ref erence range: 0 - 3 HP F. The reference range was not used to int erpret this result as normal/abnormal . WBC/HPF (test code = See_Comment [Autom ated message] 2357041286) The system [employer] generated this result transmitted ref erence range: 0 - 5 HP F. The reference range was not used to int erpret this result as normal/abnormal . BACTERIA (test code = Few Negative A 0437494512) MUCOUS (test code = Slight Negative LPF A 4383697324) SQ EPITH (test code = HPF 3549242984) HYAL CAST (test code = See_Comment H [Aut omated message] 7333845529) The system [employer] generated this result transmitted ref erence range: <=2 LPF. The reference range was not used to int erpret this result as normal/abnormal . Lab Interpretation (test Abnormal code = 68570-9) [facility]. METABOLIC PANEL (18227)2020-03-29 03:34:00 Test Item Value Reference Range Interpretation Comments NA (test code = 141 mmol/L 135-145 0751694398) K (test code = 3.9 mmol/L 3.5-5 2670219115) CL (test code = 111 mmol/L 98-108 H 6541102392) CO2 TOTAL (test code = 21 mmol/L 23-31 L 4896622467) AGAP (test code = 2-16 2578823858) BUN (test code = 18 mg/dL 7-23 8815613954) GLUCOSE (test code = 209 mg/dL 70-110 H 4185320952) CREATININE (test code = 1.03 mg/dL 0.5-1.04 7649995992) TOTAL BILI (test code = 0.7 mg/dL 0.1-1.0 5520475049) CALCIUM (test code = 9.1 mg/dL 8.6-10.6 7989242341) T PROTEIN (test code = 6.6 g/dL 6.3-8.2 7677262289) ALBUMIN (test code = 4.0 g/dL 3.5-5 2045055999) ALK PHOS (test code = 111 U/L 34-122 9195030738) ALTv (test code = 15 U/L 5-35 1742-6) AST(SGOT) (test code = 27 U/L 13-40 1662921944) eGFR Calculation mL/min/1.73m2 (Non-) (test code = 5565646449) eGFR Calculation mL/min/1.73m2 () (test code = 8333188666) KIM (test code = KIM) Association of [...] tests). Lab Interpretation Abnormal (test code = 51339-2) [facility] WITH [id number] 03:19:00 Test Item Value Reference Range Interpretation [...] RDW-SD (test code = 45.0 fL 39-49.9 92360-6) RDW-CV (test code = 13.1 % 12-15.5 788-0) PLT (test code = See_Comment [Automated 777-3) message] The sy stem which generated this result transmitted reference range : 166 - 358 10*3/ ?L. The reference r lucas was not used to interpret this result as normal/abnormal . MPV (test code = 10.0 fL 9.5-12.9 04508-7) NRBC/100 WBC (test See_Comment [Automat ed code = 2495210092) message] The system which generated this result transmitted reference range : 0.0 - 10.0 /100 WBCs. The refer ence range was not u sed to interpret th is result as normal/abnormal . NRBC x10^3 (test code <0.01 See_Comment [Auto mated = 3204760546) message] The s ystem which generated this result transmitted reference range : 10*3/?L. The reference range was not used to interpret this result as normal/abnormal . GRAN MAT (NEUT) % 80.1 % (test code = 770-8) IMM GRAN % (test code 0.40 % = 7236834250) LYMPH % (test code = 13.8 % 736-9) MONO % (test code = 5.2 % 5905-5) EOS % (test code = 0.2 % 713-8) BASO % (test code = 0.3 % 706-2) GRAN MAT x10^3(ANC) 9.51 10*3/uL 1.88-7.09 H (test code = 5967863836) IMM GRAN x10^3 (test 0.05 10*3/uL 0-0.06 code = 3934521628) LYMPH x10^3 (test code 1.64 10*3/uL 1.32-3.29 = 731-0) MONO x10^3 (test code 0.62 10*3/uL 0.33-0.92 = 742-7) EOS x10^3 (test code = <0.03 0.03-0.39 L 711-2) BASO x10^3 (test code 0.04 10*3/uL 0.01-0.07 = 704-7) Lab Interpretation Abnormal (test code = 65301-9) [facility]PNEUMOCOCCAL [id number] 18:02:00 Test Item Value Reference Range Interpretation Comments S. pneumoniae antigen (test code = Negative Negative 8031033480) Lab Interpretation (test code = Normal 97024-9) [facility]ress[facility]calcitonin2020-07-30 17:00:00 Test Item Value Reference Range Interpretation Comments Procalcitonin (test 0.04 ng/mL <0.07 code = 1257261186) KIM (test code = KIM) INTERPRETATION OF [...] lung abscess/empyema. For further information please refer to:[email or web address] Lab Interpretation Normal (test code = 75738-1) [facility] CypressFECAL [id number] 16:39:00 Test Item Value Reference Range Interpretation Comments Fecal Leukocytes (test code = Negative Negative [id number]) Lab Interpretation (test code = Normal 93595-3) [facility]12, [id number] 16:37:00 Test Item Value Reference Range Interpretation Comments VIT B12 (test code = 247 pg/mL 240-930 [id number]) KIM (test code = KIM) Biotin has been reported to cause a positive bias, interpret results relative to patient's use of biotin. Lab Interpretation (test Normal code = 08959-0) [facility], [id number] 16:15:00 Test Item Value Reference Range Interpretation Comments VIT D 25OH (test code = <13 25-80 L 68540-6) KIM (test code = KIM) Deficiency: <20 ng/mLInsufficiency: 20-24 ng/mLOptimal: 25-80 ng/mL Lab Interpretation (test Abnormal code = 52033-6) [facility]ION[facility] URINARY ANTIGEN [id number] 15:57:00 Test Item Value Reference Range Interpretation Comments Legionella Urinary Negative Negative Antigen (test code = 6906348802) KIM (test code = KIM) Negative for [...] test. Lab Interpretation (test Normal code = 33035-3) [facility]ressTroponin [id number] 14:53:00 Test Item Value Reference Range Interpretation Comments TROPONIN I (test 0.029 ng/mL See_Comment [Automated code = 6835726216) message] The system which generated this result [...] ? Lab Interpretation Normal (test code = 92659-8) [facility]XR ABDOMEN 2 [id number] 12:54:39HISTORY: Abdominal pain. FINDINGS: AP supine and [...] No acute findings.. [facility], Radiant Results Inft 02/22/2020 7:55 AM CDTHISTORY: Abdominal pain.FINDINGS: AP supine and upright views of the abdomen showed unremarkableintestinal gas pattern. Small amount of air and fecal material notedthroughout the large bowel. Cholecystectomy clips are seen in the rightupper abdomen. Upright view showed no free air.A short radiopaquecatheter type device noted projected over the lateralleft mid abdomen. No organomegaly. No aggressive bone lesions.CONCLUSIONS: No acute findings..[facility] Glycosylated Hemoglobin (A1C)2020-02-22 07:44:00 Test Item Value Reference Range Interpretation Comments HGB A1C (test code = 5.4 % 4-6 4548-4) KIM (test code = KIM) %A1C (NGSP) Interpretation (ADA)4.8-5.6 ? ? Normal or (Non-Diabetic Range)5.7-6.4 ? ? Increased Risk (Pre-Diabetic)>6.5 ?Diabetes Indicated Lab Interpretation Normal (test code = 79489-4) [facility]ressLIPID PANEL (07942)(TOTAL CHOLESTEROL, TRIGLYCERIDES, HDL)2020-02-22 07:39:00 Test Item Value Reference Range Interpretation Comments CHOL (test code = 196 mg/dL 120-200 7118922691) HDL (test code = 49 mg/dL >50 L 6100656089) HDLC RATIO (test code = See_Comment [Au tomated message] 0362674711) The system [employer] generated this result transmit leann reference range : <=4.5. The refe rence range was not u sed to interpret th is result as normal/abnormal . TRIG (test code = 121 mg/dL 30-170 5331542255) LDL CHOL (test code = 123 mg/dL See_Comment [Auto mated message] 66797-4) The system [employer] generated this result transmit leann reference range : <=160. The refe rence range was not u sed to interpret th is result as normal/abnormal . VLDL (test code = 24 mg/dL 5-60 0366846399) Lab Interpretation (test Abnormal code = 46509-8) [facility]ressIRON [id number] 07:37:00 Test Item Value Reference Range Interpretation Comments IRON (test code = 9187239892) 50 ug/dL 50-160 TIBC (test code = 7245681501) 243 ug/dL 250-410 L % FE SAT (test code = 1733369599) 21 % 20-50 Lab Interpretation (test code = Abnormal 20578-6) [facility]ressCLOSTRIDIUM DIFFICILE [id number] 06:39:00 Test Item Value Reference Range Interpretation Comments Clostridioides (Clostridium) Negative Negative difficile (test code = 12918-1) Lab Interpretation (test code = Normal 12530-0) [facility]ressBasic Metabolic Panel (NA, K, CL, CO2, GLUCOSE, BUN, CREATININE, CA)2020-02-22 06:26:00 Test Item Value Reference Range Interpretation Comments NA (test code = 135 mmol/L 135-145 1807289555) K (test code = 4.4 mmol/L 3.5-5 5247627935) CL (test code = 106 mmol/L 98-108 3497465328) CO2 TOTAL (test code = 24 mmol/L 23-31 4889010070) AGAP (test code = 2-16 0020138312) BUN (test code = 23 mg/dL 7-23 9100055074) GLUCOSE (test code = 119 mg/dL 70-110 H 4535150082) CREATININE (test code = 0.90 mg/dL 0.5-1.04 8476361278) CALCIUM (test code = 8.7 mg/dL 8.6-10.6 4421435493) eGFR Calculation mL/min/1.73m2 (Non-) (test code = 4309493849) eGFR Calculation mL/min/1.73m2 () (test code = 9001402786) KIM (test code = KIM) Association of [...] tests). Lab Interpretation Abnormal (test code = 65087-1) [facility]ressElisha [id number] 06:24:00 Test Item Value Reference Range Interpretation Comments TROPONIN I (test 0.033 ng/mL See_Comment [Automated code = 8445948620) message] The system which generated this result [...] ? Lab Interpretation Normal (test code = 97236-4) [facility] CypressWillphilip [id number] 06:23:00 Test Item Value Reference Range Interpretation Comments TROPONIN I (test 0.032 ng/mL See_Comment [Automated code = 7905079009) message] The system which generated this result [...] ? Lab Interpretation Normal (test code = 49080-9) [facility]ressURINALYSIS2020-07-30 05:49:00 Test Item Value Reference Range Interpretation Comments APPEARANCE (test code = Clear Clear 4816939335) COLOR (test code = Straw Yellow A 0894396354) PH (test code = 4.8-8.0 9526574889) SP GRAVITY (test code = 1.003-1.030 5662731952) GLU U QUAL (test code = Normal Normal 9323298363) BLOOD (test code = 1+ Negative A 0153450403) KETONES (test code = Negative Negative 8366175735) PROTEIN (test code = Negative Negative 2887-8) UROBILIN (test code = Normal Normal 4445935273) BILIRUBIN (test code = Negative Negative 3927419014) NITRITE (test code = Negative Negative 7640987827) LEUK NASRIN (test code = Negative Negative 0419338302) RBC/HPF (test code = See_Comment [Autom ated message] 3362515843) The system [employer] generated this result transmitted ref erence range: 0 - 3 HP F. The reference range was not used to int erpret this result as normal/abnormal . WBC/HPF (test code = <1 See_Comment [Autom ated message] 5539526309) The system [employer] generated this result transmitted ref erence range: 0 - 5 HP F. The reference range was not used to int erpret this result as normal/abnormal . BACTERIA (test code = Negative Negative 8188109124) MUCOUS (test code = Slight Negative LPF A 3840130946) SQ EPITH (test code = <1 HPF 7233368745) Lab Interpretation (test Abnormal code = 45435-8) [facility]ressCB with [id number] 05:33:00 Test Item Value Reference Range Interpretation [...] RDW-SD (test code = 48.6 fL 39-49.9 60222-1) RDW-CV (test code = 13.9 % 12-15.5 788-0) PLT (test code = See_Comment [Automated 777-3) message] The sy stem which generated this result transmitted reference range : 166 - 358 10*3/ ?L. The reference r lucas was not used to interpret this result as normal/abnormal . MPV (test code = 10.2 fL 9.5-12.9 87622-9) NRBC/100 WBC (test See_Comment [Automat ed code = 5643518077) message] The system which generated this result transmitted reference range : 0.0 - 10.0 /100 WBCs. The refer ence range was not u sed to interpret th is result as normal/abnormal . NRBC x10^3 (test code <0.01 See_Comment [Auto mated = 3219432534) message] The s ystem which generated this result transmitted reference range : 10*3/?L. The reference range was not used to interpret this result as normal/abnormal . GRAN MAT (NEUT) % 58.2 % (test code = 770-8) IMM GRAN % (test code 0.70 % = 0425420234) LYMPH % (test code = 32.2 % 736-9) MONO % (test code = 7.3 % 5905-5) EOS % (test code = 1.2 % 713-8) BASO % (test code = 0.4 % 706-2) GRAN MAT x10^3(ANC) 6.62 10*3/uL 1.88-7.09 (test code = 4040379153) IMM GRAN x10^3 (test 0.08 10*3/uL 0-0.06 H code = 2452643281) LYMPH x10^3 (test code 3.66 10*3/uL 1.32-3.29 H = 731-0) MONO x10^3 (test code 0.83 10*3/uL 0.33-0.92 = 742-7) EOS x10^3 (test code = 0.14 10*3/uL 0.03-0.39 711-2) BASO x10^3 (test code 0.04 10*3/uL 0.01-0.07 = 704-7) Lab Interpretation Abnormal (test code = 69597-2) [facility]ressMAGNESIUM2020-07-30 04:09:00 Test Item Value Reference Range Interpretation Comments MAGNESIUM (test code = 2971417162) 2.1 mg/dL 1.7-2.4 Lab Interpretation (test code = Normal 65785-2) [facility] CypressPHOSPHORUS2020-07-30 04:08:00 Test Item Value Reference Range Interpretation Comments PHOSPHORUS (test code = 3987734601) 3.6 mg/dL 2.5-5 Lab Interpretation (test code = Normal 67768-6) [facility] CypressFERRITIN [id number] 01:37:00 Test Item Value Reference Range Interpretation Comments FERRITIN (test code = 36.4 ng/mL 11-264 0176072817) KIM (test code = KIM) Biotin has been reported to cause a negative bias, interpret results relative to patient's use of biotin. Lab Interpretation (test Normal code = 01875-3) [facility] CypressLipid Panel (Total Cholesterol, Triglycerides, HDL)2020-02-21 23:53:00 Test Item Value Reference Range Interpretation Comments CHOL (test code = 200 mg/dL 120-200 5594770524) HDL (test code = 48 mg/dL >50 L 9559014395) HDLC RATIO (test code = See_Comment [Au tomated message] 3253100169) The system [employer] generated this result transmit leann reference range : <=4.5. The refe rence range was not u sed to interpret th is result as normal/abnormal . TRIG (test code = 101 mg/dL 30-170 4135791883) LDL CHOL (test code = 132 mg/dL See_Comment [Auto mated message] 03754-4) The system [employer] generated this result transmit leann reference range : <=160. The refe rence range was not u sed to interpret th is result as normal/abnormal . VLDL (test code = 20 mg/dL 5-60 3828135477) Lab Interpretation (test Abnormal code = 16229-5) [id number] 17:31:00 Test Item Value Reference Range Interpretation Comments TROPONIN I (test 0.035 ng/mL See_Comment H [Automated code = 9198959409) message] The system which generated this result [...] ? Lab Interpretation Abnormal (test code = 33222-9) [facility]ressCOM. METABOLIC PANEL (13985)2020-02-21 17:21:00 Test Item Value Reference Range Interpretation Comments NA (test code = 137 mmol/L 135-145 3618728291) K (test code = 4.6 mmol/L 3.5-5 2531872494) CL (test code = 111 mmol/L 98-108 H 4470935198) CO2 TOTAL (test code = 22 mmol/L 23-31 L 0488632561) AGAP (test code = 2-16 7637904073) BUN (test code = 25 mg/dL 7-23 H 5299948379) GLUCOSE (test code = 124 mg/dL 70-110 H 9840482853) CREATININE (test code = 0.86 mg/dL 0.5-1.04 9455466688) TOTAL BILI (test code = 0.6 mg/dL 0.1-1.0 2285018582) CALCIUM (test code = 8.1 mg/dL 8.6-10.6 L 5348946586) T PROTEIN (test code = 5.8 g/dL 6.3-8.2 L 0709278160) ALBUMIN (test code = 3.2 g/dL 3.5-5 L 5389399848) ALK PHOS (test code = 103 U/L 34-122 3955688219) ALTv (test code = 33 U/L 5-35 1742-6) AST(SGOT) (test code = 27 U/L 13-40 2961172470) eGFR Calculation mL/min/1.73m2 (Non-) (test code = 5962633440) eGFR Calculation mL/min/1.73m2 () (test code = 5739539967) KIM (test code = KIM) Association of [...] tests). Lab Interpretation Abnormal (test code = 47921-7) [facility]ressLIPASE2020-07-29 17:20:00 Test Item Value Reference Range Interpretation Comments LIPASE (test code = 8456109991) 190 U/L 0-220 Lab Interpretation (test code = Normal 07369-5) [facility] CypressLactic Acid Whole [id number] 17:06:00 Test Item Value Reference Range Interpretation Comments LACTIC ACID (test code = 1.18 mmol/L 0.3-2.6 9431108022) Lab Interpretation (test code = Normal 72986-2) [facility]ressCOVID-19 (ID NOW RAPID TESTING)2020-02-21 16:01:00 Test Item Value Reference Range Interpretation Comments SARS-CoV-2 Rapid ID NOW Not Detected Not Detected (test code = 50740-0) KIM (test code = KIM) ID NOW COVID-19 Assay is an isothermal nucleic acid amplification test intended for the qualitative detection of nucleic acid from SARS-CoV-2 viral RNA in nasopharyngeal ([employer]) specimens. It is used under Emergency Use [...] indicated. Lab Interpretation Normal (test code = 14223-7) [facility]ressXR CHEST 1 [id number] 15:51:41HISTORY: Shortness of breath. TECHNIQUE: Portable AP [...] upper abdomen.CONCLUSIONS: No signs of acute cardiopulmonary disease.[facility] CypressCBC WITH [id number] 15:41:00 Test Item Value Reference Range Interpretation Comments WBC (test code = See_Comment H [Automated 5190-2) message] The sy stem which generated this result transmitted reference range : 4.30 - 11.10 10*3/?L. The reference range was not used to interpret this result as normal/abnormal . RBC (test code = See_Comment [Automated 919-8) message] The sy stem which generated this [...] RDW-SD (test code = 47.2 fL 39-49.9 67441-9) RDW-CV (test code = 14.1 % 12-15.5 788-0) PLT (test code = See_Comment [Automated 777-3) message] The sy stem which generated this result transmitted reference range : 166 - 358 10*3/ ?L. The reference r lucas was not used to interpret this result as normal/abnormal . MPV (test code = 10.7 fL 9.5-12.9 27100-3) NRBC/100 WBC (test See_Comment [Automat ed code = 3244936817) message] The system which generated this result transmitted reference range : 0.0 - 10.0 /100 WBCs. The refer ence range was not u sed to interpret th is result as normal/abnormal . NRBC x10^3 (test code <0.01 See_Comment [Auto mated = 9932243065) message] The s ystem which generated this result transmitted reference range : 10*3/?L. The reference range was not used to interpret this result as normal/abnormal . GRAN MAT (NEUT) % 65.3 % (test code = 770-8) IMM GRAN % (test code 1.20 % = 2467105114) LYMPH % (test code = 23.9 % 736-9) MONO % (test code = 7.3 % 5905-5) EOS % (test code = 1.8 % 713-8) BASO % (test code = 0.5 % 706-2) GRAN MAT x10^3(ANC) 7.63 10*3/uL 1.88-7.09 H (test code = 9171622078) IMM GRAN x10^3 (test 0.14 10*3/uL 0-0.06 H code = 0674213425) LYMPH x10^3 (test code 2.79 10*3/uL 1.32-3.29 = 731-0) MONO x10^3 (test code 0.85 10*3/uL 0.33-0.92 = 742-7) EOS x10^3 (test code = 0.21 10*3/uL 0.03-0.39 711-2) BASO x10^3 (test code 0.06 10*3/uL 0.01-0.07 = 704-7) Lab Interpretation Abnormal (test code = 64513-4) [facility] CypressTHYROID STIMULATING [id number] 23:07:00 Test Item Value Reference Range Interpretation Comments TSH (test code = See_Comment [Automated message] 4164253776) The system [employer] generated this result transmitted ref erence range: 0.45 - 4 .70 mIU/L. The refe rence range was not u sed to interpret this result as normal/abnor mal. Lab Interpretation (test Normal code = 72465-2) [facility]XR CHEST 1 [id number] 22:32:37CHEST ONE VIEW HISTORY: ?Chest pain TECHNIQUE: [...] right. CONCLUSIONS: No acute c ardiopulmonary disease. [facility], Radiant Results Inft User - 02/14/2020 5:33 PM CDTCHEST ONE VIEWHISTORY: Chest painTECHNIQUE: AP view of the chest is obtained.COMPARISON: 07/14/2019FINDINGS:Elevation of the left hemidiaphragm is seen.The lungs are clear. No focal consolidation is seen.Heart size is normal. No pleural effusion or pneumothorax is identified.A hiatal hernia is noted.Scoliosis of the thoracic spine is seen with convexity to the right.CONCLUSIONS: No acute cardiopulmonary disease.[facility] CypressLactic Acid Whole [id number] 22:30:00 Test Item Value Reference Range Interpretation Comments LACTIC ACID (test code = 1.38 mmol/L 1605465831) [facility] CypressURINALYSIS2020-07-22 22:04:00 Test Item Value Reference Range Interpretation Comments APPEARANCE (test code = Clear Clear 8640078515) COLOR (test code = Yellow Yellow 0289790129) PH (test code = 4.8-8.0 0201525135) SP GRAVITY (test code = 1.003-1.030 3361322824) GLU U QUAL (test code = Normal Normal 5201312374) BLOOD (test code = 1+ Negative A 3839871970) KETONES (test code = 5 mg/dL Negative A 8579623249) PROTEIN (test code = Negative Negative 2887-8) UROBILIN (test code = Normal Normal 5957562448) BILIRUBIN (test code = Negative Negative 0099041083) NITRITE (test code = Negative Negative 1421488754) LEUK NASRIN (test code = Negative Negative 3140754468) RBC/HPF (test code = See_Comment [Autom ated message] 7276111603) The system [employer] generated this result transmitted ref erence range: 0 - 3 HP F. The reference range was not used to int erpret this result as normal/abnormal . WBC/HPF (test code = <1 See_Comment [Autom ated message] 2395803216) The system [employer] generated this result transmitted ref erence range: 0 - 5 HP F. The reference range was not used to int erpret this result as normal/abnormal . BACTERIA (test code = Negative Negative 3046688022) MUCOUS (test code = Slight Negative LPF A 0702038474) SQ EPITH (test code = HPF 1537443407) HYAL CAST (test code = See_Comment H [Aut omated message] 4645515211) The system [employer] generated this result transmitted ref erence range: <=2 LPF. The reference range was not used to int erpret this result as normal/abnormal . Lab Interpretation (test Abnormal code = 05221-9) [facility] CypressD-[id number] 21:43:00 Test Item Value Reference Interpretation Comments Range D-DIMER (test code = See_Comment H [Autom ated 6090480262) message] The system which generated this result [...] diagnosis. Lab Interpretation Abnormal (test code = 14437-7) [facility] CypressELISHA [id number] 21:31:00 Test Item Value Reference Range Interpretation Comments TROPONIN I (test 0.034 ng/mL See_Comment [Automated code = 9437127346) message] The system which generated this result [...] ? Lab Interpretation Normal (test code = 10496-4) [facility] CypressCOM. METABOLIC PANEL (80529)2020-02-14 21:19:00 Test Item Value Reference Range Interpretation Comments NA (test code = 138 mmol/L 135-145 0205176182) K (test code = 4.8 mmol/L 3.5-5 1178108446) CL (test code = 105 mmol/L 98-108 7244032975) CO2 TOTAL (test code = 22 mmol/L 23-31 L 7445252633) AGAP (test code = 2-16 4827301837) BUN (test code = 25 mg/dL 7-23 H 5370402435) GLUCOSE (test code = 125 mg/dL 70-110 H 6855420225) CREATININE (test code = 0.90 mg/dL 0.5-1.04 7623934013) TOTAL BILI (test code = 0.9 mg/dL 0.1-1.2 0948658443) CALCIUM (test code = 9.9 mg/dL 8.6-10.6 3014891144) T PROTEIN (test code = 8.0 g/dL 6.3-8.2 1647933684) ALBUMIN (test code = 4.5 g/dL 3.5-5 2742761526) ALK PHOS (test code = 109 U/L 34-122 7353565694) ALTv (test code = 37 U/L 5-35 H 1742-6) AST(SGOT) (test code = 40 U/L 13-40 1615607404) eGFR Calculation mL/min/1.73m2 (Non-) (test code = 3078252889) eGFR Calculation mL/min/1.73m2 () (test code = 6658095771) KIM (test code = KIM) Association of [...] tests). Lab Interpretation Abnormal (test code = 78610-8) [facility] CypressLIPASE, [id number] 21:19:00 Test Item Value Reference Range Interpretation Comments LIPASE (test code = 9683841314) 269 U/L 0-220 H Lab Interpretation (test code = Abnormal 19321-9) [facility] CypressaPTT2020-07-22 21:15:00 Test Item Value Reference Range Interpretation Comments APTT Patient (test See_Comment L [Automat ed code = 3173-2) message] The system which generated this result transmitted reference range : 23 - 38 Seconds . The reference range was not used to interpr et this result as normal/abnormal . KIM (test code = KIM) The [facility] patient population mean normal value for aPTT is 30 seconds. Lab Interpretation Abnormal (test code = 99796-0) [facility] CypressPROTHROMBIN TIME / [id number] 21:13:00 Test Item Value Reference Range Interpretation [...] tions. Lab Interpretation (test Abnormal code = 65810-0) [facility] WITH [id number] 21:11:00 Test Item Value Reference Range Interpretation [...] RDW-SD (test code = 45.9 fL 39-49.9 74709-8) RDW-CV (test code = 13.6 % 12-15.5 788-0) PLT (test code = See_Comment [Automated 777-3) message] The system which generated this result transmit leann reference range : 166 - 358 10*3/ ?L. The reference range was not u sed to interpret th is result as normal/abnormal . MPV (test code = 10.1 fL 9.5-12.9 68689-0) NRBC/100 WBC (test See_Comment [Automat ed code = 3371566183) message] The system which generated this result transmit leann reference range : 0.0 - 10.0 /100 WBCs. The reference range was not used to interpret this result as normal/abnormal . NRBC x10^3 (test code <0.01 See_Comment [Auto mated = 9715697069) message] The system which generated this result transmit leann reference range : 10*3/?L. The reference range was not used to interpret this result as normal/abnormal . GRAN MAT (NEUT) % 85.0 % (test code = 770-8) IMM GRAN % (test code 1.40 % = 8324832502) LYMPH % (test code = 10.1 % 736-9) MONO % (test code = 2.9 % 5905-5) EOS % (test code = 0.3 % 713-8) BASO % (test code = 0.3 % 706-2) GRAN MAT x10^3(ANC) 14.85 10*3/uL 1.88-7.09 H (test code = 9693341716) IMM GRAN x10^3 (test 0.24 10*3/uL 0-0.06 H code = 7310796248) LYMPH x10^3 (test code 1.77 10*3/uL 1.32-3.29 = 731-0) MONO x10^3 (test code 0.51 10*3/uL 0.33-0.92 = 742-7) EOS x10^3 (test code = 0.06 10*3/uL 0.03-0.39 711-2) BASO x10^3 (test code 0.06 10*3/uL 0.01-0.07 = 704-7) Lab Interpretation Abnormal (test code = 03825-4) [facility] CypressCT ABDOMEN PELVIS W [id number] 20:16:21Impression: 1. ?Findings concerning for cystitis. 2. [...] from a prior laparoscopicsurgery (2:52 and 66). [facility], Radiant Results Inft User - 01/03/2020 3:17 [...] surgery. Postsurgical changes are seen at the GEjunction.[facility] CypressUrinalysis2020-06-10 18:27:00 Test Item Value Reference Range Interpretation Comments APPEARANCE (test code = Clear Clear 9840944434) COLOR (test code = Belkis Yellow A 1328916728) PH (test code = 4.8-8.0 1671253950) SP GRAVITY (test code = 1.003-1.030 6074688991) GLU U QUAL (test code = Normal Normal 3362979812) BLOOD (test code = 1+ Negative A 3290034155) KETONES (test code = Negative Negative 9243948333) PROTEIN (test code = Negative Negative 2887-8) UROBILIN (test code = Normal Normal 5316394326) BILIRUBIN (test code = Negative Negative 1547015001) NITRITE (test code = Negative Negative 2085798026) LEUK NASRIN (test code = Negative Negative 7296174361) RBC/HPF (test code = See_Comment [Autom ated message] 0066296149) The system [employer] generated this result transmitted ref erence range: 0 - 3 HP F. The reference range was not used to int erpret this result as normal/abnormal . WBC/HPF (test code = <1 See_Comment [Autom ated message] 8500663931) The system [employer] generated this result transmitted ref erence range: 0 - 5 HP F. The reference range was not used to int erpret this result as normal/abnormal . BACTERIA (test code = Few Negative A 5708377059) MUCOUS (test code = Moderate Negative LPF A 7140691416) SQ EPITH (test code = HPF 2824372892) HYAL CAST (test code = See_Comment H [Aut omated message] 0981729174) The system [employer] generated this result transmitted ref erence range: <=2 LPF. The reference range was not used to int erpret this result as normal/abnormal . Lab Interpretation (test Abnormal code = 29146-9) [facility] CypressProthrombin Time (PT) / [id number] 18:21:00 Test Item Value Reference Range Interpretation [...] tions. Lab Interpretation (test Normal code = 91137-0) [facility] CypressaPTT2020-06-10 18:20:00 Test Item Value Reference Range Interpretation Comments APTT Patient (test See_Comment L [Automat ed code = 3173-2) message] The system which generated this result transmitted reference range : 23 - 38 Seconds . The reference range was not used to interpr et this result as normal/abnormal . KIM (test code = KIM) The [facility] patient population mean normal value for aPTT is 30 seconds. Lab Interpretation Abnormal (test code = 87141-3) [facility] CypressBasi Metabolic Panel (NA, K, CL, CO2, GLUCOSE, BUN, CREATININE, CA)2020-01-03 18:17:00 Test Item Value Reference Range Interpretation Comments NA (test code = 138 mmol/L 135-145 1718672333) K (test code = 3.9 mmol/L 3.5-5 9631773685) CL (test code = 110 mmol/L 98-108 H 7931972060) CO2 TOTAL (test code = 24 mmol/L 23-31 0820139621) AGAP (test code = 2-16 9246360847) BUN (test code = 12 mg/dL 7-23 7292800157) GLUCOSE (test code = 111 mg/dL 70-110 H 4091937035) CREATININE (test code = 0.72 mg/dL 0.5-1.04 1028382212) CALCIUM (test code = 8.9 mg/dL 8.6-10.6 9101465836) eGFR Calculation mL/min/1.73m2 (Non-) (test code = 0695808425) eGFR Calculation mL/min/1.73m2 () (test code = 9932433409) KIM (test code = KIM) Association of [...] tests). Lab Interpretation Abnormal (test code = 75325-9) [facility] CypressHepatic Function Panel (ALB, T.PRO, BILI T, BU/BC, ALT, AST, ALK PHOS)2020-01-03 18:17:00 Test Item Value Reference Range Interpretation Comments TOTAL BILI (test code = 1439051486) 1.1 mg/dL 0.1-1.1 BILI UNCON (test code = 8495121447) 1.2 mg/dL 0.1-1.1 H BILI CONJ (test code = 6171211609) 0.0 mg/dL 0-0.3 T PROTEIN (test code = 4200785857) 6.7 g/dL 6.3-8.2 ALBUMIN (test code = 2522331749) 3.9 g/dL 3.5-5 ALK PHOS (test code = 4424453139) 88 U/L 34-122 ALTv (test code = 1742-6) 26 U/L 5-35 AST(SGOT) (test code = 6619091231) 28 U/L 13-40 Lab Interpretation (test code = Abnormal 95069-3) [facility] Eyeou0911-74-59 18:17:00 Test Item Value Reference Range Interpretation Comments LIPASE (test code = 0877030930) 166 U/L 0-220 Lab Interpretation (test code = Normal 10509-4) [facility]ressCBC WITH [id number] 18:07:00 Test Item Value Reference Range Interpretation Comments WBC (test code = See_Comment H [Automated 0490-2) message] The sy stem which generated this [...] RDW-SD (test code = 46.4 fL 39-49.9 46022-0) RDW-CV (test code = 13.7 % 12-15.5 788-0) PLT (test code = See_Comment [Automated 777-3) message] The sy stem which generated this result transmitted reference range : 166 - 358 10*3/ ?L. The reference r lucas was not used to interpret this result as normal/abnormal . MPV (test code = 9.9 fL 9.5-12.9 76513-3) NRBC/100 WBC (test See_Comment [Automat ed code = 2828373353) message] The system which generated this result transmitted reference range : 0.0 - 10.0 /100 WBCs. The refer ence range was not u sed to interpret th is result as normal/abnormal . NRBC x10^3 (test code <0.01 See_Comment [Auto mated = 9621623361) message] The s ystem which generated this result transmitted reference range : 10*3/?L. The reference range was not used to interpret this result as normal/abnormal . GRAN MAT (NEUT) % 83.1 % (test code = 770-8) IMM GRAN % (test code 0.70 % = 9560013864) LYMPH % (test code = 11.2 % 736-9) MONO % (test code = 3.6 % 5905-5) EOS % (test code = 1.1 % 713-8) BASO % (test code = 0.3 % 706-2) GRAN MAT x10^3(ANC) 9.43 10*3/uL 1.88-7.09 H (test code = 9025149064) IMM GRAN x10^3 (test 0.08 10*3/uL 0-0.06 H code = 3772421316) LYMPH x10^3 (test code 1.27 10*3/uL 1.32-3.29 L = 731-0) MONO x10^3 (test code 0.41 10*3/uL 0.33-0.92 = 742-7) EOS x10^3 (test code = 0.12 10*3/uL 0.03-0.39 711-2) BASO x10^3 (test code 0.03 10*3/uL 0.01-0.07 = 704-7) Lab Interpretation Abnormal (test code = 81716-1) [facility]ressLactic Acid Whole Hdcdy8906-03-15 17:34:00 Test Item Value Reference Range Interpretation Comments LACTIC ACID (test code = 1.77 mmol/L 0.3-2.6 2029021524) Lab Interpretation (test code = Normal 78088-6) [facility] Metabolic Panel (NA, K, CL, CO2, GLUCOSE, BUN, CREATININE, CA)2019-12-06 08:20:00 Test Item Value Reference Range Interpretation Comments NA (test code = 132 mmol/L 135-145 L 1808288760) K (test code = 4.1 mmol/L 3.5-5 1202307003) CL (test code = 102 mmol/L 98-108 6307361355) CO2 TOTAL (test code = 25 mmol/L 23-31 5241138309) AGAP (test code = 2-16 9260539706) BUN (test code = 15 mg/dL 7-23 3707417222) GLUCOSE (test code = 85 mg/dL 70-110 4921807216) CREATININE (test code = 0.84 mg/dL 0.5-1.04 3975243712) CALCIUM (test code = 8.6 mg/dL 8.6-10.6 6448096922) eGFR Calculation mL/min/1.73m2 (Non-) (test code = 6220957049) eGFR Calculation mL/min/1.73m2 () (test code = 5053223265) KIM (test code = KIM) Association of [...] tests). Lab Interpretation Abnormal (test code = 40987-2) [facility] WITH YEPJWESLOBBF8522-97-58 07:56:00 Test Item Value Reference Range Interpretation Comments WBC (test code = See_Comment H [Automated 6690-2) message] The system which generated this result transmit leann reference range : 4.30 - 11.10 10*3/?L. The reference range was not used to interpret this result as normal/abnormal . RBC (test code = See_Comment [Automated 789-8) message] The system which generated [...] RDW-SD (test code = 47.1 fL 39-49.9 75174-2) RDW-CV (test code = 13.5 % 12-15.5 788-0) PLT (test code = See_Comment [Automated 777-3) message] The system which generated this result transmit leann reference range : 166 - 358 10*3/ ?L. The reference range was not u sed to interpret th is result as normal/abnormal . MPV (test code = 9.8 fL 9.5-12.9 69612-1) NRBC/100 WBC (test See_Comment [Automat ed code = 1344956129) message] The system which generated this result transmit leann reference range : 0.0 - 10.0 /100 WBCs. The reference range was not used to interpret this result as normal/abnormal . NRBC x10^3 (test code <0.01 See_Comment [Auto mated = 1492596069) message] The system which generated this result transmit leann reference range : 10*3/?L. The reference range was not used to interpret this result as normal/abnormal . GRAN MAT (NEUT) % 77.4 % (test code = 770-8) IMM GRAN % (test code 0.60 % = 6903089299) LYMPH % (test code = 15.0 % 736-9) MONO % (test code = 6.7 % 5905-5) EOS % (test code = 0.2 % 713-8) BASO % (test code = 0.1 % 706-2) GRAN MAT x10^3(ANC) 12.65 10*3/uL 1.88-7.09 H (test code = 5290889467) IMM GRAN x10^3 (test 0.10 10*3/uL 0-0.06 H code = 9851581001) LYMPH x10^3 (test code 2.45 10*3/uL 1.32-3.29 = 731-0) MONO x10^3 (test code 1.10 10*3/uL 0.33-0.92 H = 742-7) EOS x10^3 (test code = 0.04 10*3/uL 0.03-0.39 711-2) BASO x10^3 (test code <0.03 0.01-0.07 = 704-7) Lab Interpretation Abnormal (test code = 03298-4) [facility] Barium Swallow Pkvzgqizy9912-65-36 23:38:49 Postsurgical changes status post hiatal hernia [...] Dictated by Resident: Aristeo Valencia MD., have reviewedthis study and agree with theabove report.BARIUM SWALLOW HISTORY: 64-year-old female status post hiatal hernia repair for evaluationof epigastric stricture or contrast leakage TECHNIQUE AND FINDINGS: Limited evaluation because of patient's inability to stand. Bench Mover images demonstrate surgical changes status post hiatal hernia repair. The patient was given 30 mL Omnipaque 350 by mouth. ?Fluoroscopy and filmsof the esophagus, and stomach in the AP view and left anterior oblique viewdemonstrate propagation of contrast material through the esophagus withsubsequent pooling of the contrast in the distal esophagus. Contrast in distal esophagus slowly clears over time. Gastroesophagealjunction measures 6 mm in greatest diameter. Thin barium was then given to the patient with a similar result aswater-soluble contrast. The 12.5 mm barium tablet was finally administeredto the patient but did not pass into the stomach despite multiple sips ofwater. No evidence of contrast material extravasation. [facility], Radiant Results Inft User - 12/05/2019 6:39 PM CDTBARIUM SWALLOW HISTORY: 64-year-old female status post hiatal hernia repair for evaluationof epigastric stricture or contrast leakage TECHNIQUE AND FINDINGS: Limited evaluation because of patient's inability to stand.Bench Mover images demonstrate surgical changes status post hiatal [...] sips ofwater. No evidence of contrast material extravasation.IMPRESSIONP ostsurgical changes status post hiatal hernia repair. Distal [...] oral contrast extravasation.Preliminary Report Dictated by Resident: Sushil Lopes, Aristeo Fortune MD., have reviewed this study and agree with theabove report.[facility] WITH TORVMQTRUMCX9755-70-35 17:22:00 Test Item Value Reference Range Interpretation Comments WBC (test code = See_Comment H [Automated 6690-2) message] The system which generated this result transmit leann reference range : 4.30 - 11.10 10*3/?L. The reference range was not used to interpret this result as normal/abnormal . RBC (test code = See_Comment [Automated 789-8) message] The system which generated [...] RDW-SD (test code = 44.9 fL 39-49.9 70220-3) RDW-CV (test code = 13.2 % 12-15.5 788-0) PLT (test code = See_Comment [Automated 777-3) message] The system which generated this result transmit leann reference range : 166 - 358 10*3/ ?L. The reference range was not u sed to interpret th is result as normal/abnormal . MPV (test code = 9.7 fL 9.5-12.9 58317-6) NRBC/100 WBC (test See_Comment [Automat ed code = 1554566172) message] The system which generated this result transmit leann reference range : 0.0 - 10.0 /100 WBCs. The reference range was not used to interpret this result as normal/abnormal . NRBC x10^3 (test code <0.01 See_Comment [Auto mated = 1209112321) message] The system which generated this result transmit leann reference range : 10*3/?L. The reference range was not used to interpret this result as normal/abnormal . GRAN MAT (NEUT) % 93.0 % (test code = 770-8) IMM GRAN % (test code 1.30 % = 1109641955) LYMPH % (test code = 3.2 % 736-9) MONO % (test code = 2.4 % 5905-5) EOS % (test code = 0.0 % 713-8) BASO % (test code = 0.1 % 706-2) GRAN MAT x10^3(ANC) 19.11 10*3/uL 1.88-7.09 H (test code = 2147232547) IMM GRAN x10^3 (test 0.27 10*3/uL 0-0.06 H code = 5849300816) LYMPH x10^3 (test code 0.65 10*3/uL 1.32-3.29 L = 731-0) MONO x10^3 (test code 0.49 10*3/uL 0.33-0.92 = 742-7) EOS x10^3 (test code = <0.03 0.03-0.39 L 711-2) BASO x10^3 (test code 0.03 10*3/uL 0.01-0.07 = 704-7) Lab Interpretation Abnormal (test code = 32239-9) [facility] Metabolic Panel (NA, K, CL, CO2, GLUCOSE, BUN, CREATININE, CA)2019-12-05 16:11:00 Test Item Value Reference Range Interpretation Comments NA (test code = 135 mmol/L 135-145 8781377312) K (test code = 5.3 mmol/L 3.5-5 H 2846448416) CL (test code = 105 mmol/L 98-108 5563557241) CO2 TOTAL (test code = 24 mmol/L 23-31 1994309967) AGAP (test code = 2-16 0521065938) BUN (test code = 23 mg/dL 7-23 5958211997) GLUCOSE (test code = 204 mg/dL 70-110 H 6623952992) CREATININE (test code = 0.74 mg/dL 0.5-1.04 3226012683) CALCIUM (test code = 8.5 mg/dL 8.6-10.6 L 3120049325) eGFR Calculation mL/min/1.73m2 (Non-) (test code = 3158584595) eGFR Calculation mL/min/1.73m2 () (test code = 4384763625) KIM (test code = KIM) Association of [...] tests). Lab Interpretation Abnormal (test code = 89016-9) [facility]2020-05-[facility] 16:11:00 Test Item Value Reference Range Interpretation Comments MAGNESIUM (test code = 0179334357) 2.0 mg/dL 1.7-2.4 Lab Interpretation (test code = Normal 36879-3) [facility]osphorus2020-05-12 16:11:00 Test Item Value Reference Range Interpretation Comments PHOSPHORUS (test code = 6637982304) 3.2 mg/dL 2.5-5 Lab Interpretation (test code = Normal 21159-2) [facility] SRVK8831-68-67 19:32:00Surgical Pathology Report Case: [id number] Authorizing Provider: Leanna Perez MD Collected: 03/06/2019 0850 Ordering Location: [address] Received: 03/06/2019 1421 Service Pathologist: Radha [...] MALIGNANCY NOTED Signing Pathologist Direct Phone Line: [phone] signed by Radha Fuentes MD on 03/07/2019 at 7:32 [id number] X 2; [id number] and postop diagnosis: anemia A. Duodenum random [...] included the use of immunohistochemistry or special stains.WARTHIN- STARRYControl Slides Examined: In-house known positive controls were evaluated along with the test tissue. These control slides run alongside of the patients sample show appropriate staining. Internal positive and negative controls when available are evaluated Immunohistochemistry technical testing was performed at [facility], Pathology Laboratory where it was developed an d its performance characteristics were determined. It has not been cleared or approved by the U.S. Food and Drug Administration. The FDA has determined that such clearance or approval is not necessary.The test is used for clinical purposes. It should not be regarded as investigational or for research. This laboratory is certified under the Clinical Laboratory Improvement Amendments of 1988 (CLIA-88)as qualified to perform high complexity clinical laboratory testing.COMPREHENSIVE METABOLIC EQIZQ8244-11-01 07:33:00 Test Item Value Reference Range Interpretation [...] NOT APPLICABLE FOR DIALYSIS PATIEN TS. PROTHROMBIN TIME/EKQ1734-12-33 07:23:00 Test Item Value Reference Range Interpretation [...] mechanical heart valves.CBC W/PLT COUNT & AUTO IWWAWMXNTWEV3432-76-24 07:16:00 Test Item Value Reference Range Interpretation [...] (BEAKER) (test code = 2801) HEMOGLOBIN AND ZXRJRLKUBP7920-48-72 22:37:00 Test Item Value Reference Range Interpretation Comments HEMOGLOBIN (BEAKER) (test code = 7.5 GM/DL 11.2-15.7 L 410) HEMATOCRIT (BEAKER) (test code = 26.8 % 34.1-44.9 L 411) HEMOGLOBIN AND [id number] 10:01:00 Test Item Value Reference Range Interpretation Comments HEMOGLOBIN (BEAKER) (test code = 8.1 GM/DL 11.2-15.7 L 410) HEMATOCRIT (BEAKER) (test code = 28.9 % 34.1-44.9 L 411) VITAMIN D, 33-NHDVTNJ9223-31-11 09:22:00 Test Item Value Reference Range Interpretation Comments VITAMIN D 25-OH (BEAKER) (test code 5.7 ng/mL 6.6-49.9 L = 2764) Effective 05/05/2017: Reference Range ChangeNew: 6.6-49.9 ng/mL Previous: 13.0- 47.8 ng/mLRecommendedVitamin D Target Range: 30.0-40.0 ng/mLCOMPREHENSIVE METABOLIC [id number] 08:49:00 Test Item Value Reference Range Interpretation [...] (test code = 2590) TSH/FREE T4 IF [id number] 06:46:00 Test Item Value Reference Range Interpretation Comments THYROID STIMULATING HORMONE 0.90 uIU/mL 0.35-4.94 (BEAKER) (test code = 772) VITAMIN B12 AND [id number] 06:46:00 Test Item Value Reference Range Interpretation [...] (BEAKER) (test code = 413) HEMOGLOBIN AND [id number] 23:36:00 Test Item Value Reference Range Interpretation Comments HEMOGLOBIN (BEAKER) (test code = 6.0 GM/DL 11.2-15.7 LL 410) HEMATOCRIT (BEAKER) (test code = 22.6 % 34.1-44.9 L 411) TISSUE [id number] 15:28:00Surgical Pathology Report Case: [id number] Authorizing Provider: Criss Monroe MD Collected: 01/18/2019 0930 Ordering Location: [address] Received: 01/18/2019 1359 Service Pathologist: Sola Kingston MD Specimen: Polyp, Colon - Sigmoid COLON, SIGMOID POLYP, POLYPECTOMY- 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 Polyp, colon-sigmoidReceived in formalin labeled with the patient's name, accession number and "polyp, colon-sigmoid" is a 0.4-cm pino polyp which is submitted in toto in A1. CG/bc Performed.FL, UGI, WITHOUT [id number] 13:45:00Reason for exam:->Suggestion of large hiatal hernia [...] MDReport Verified Date/Time: 01/19/2019 13:45:41 Reading Location: [address] OrthoConsult Reading [facility] METABOLIC [id number] 08:32:00 Test Item Value Reference Range Interpretation [...] (test code = 413) VITAMIN B12 AND [id number] 05:50:00 Test Item Value Reference Range Interpretation Comments VITAMIN B12 (BEAKER) (test code = 323 pg/mL 213-816 774) FOLATE (BEAKER) (test code = 362) 11.0 ng/mL >=7.0 BASIC METABOLIC [id number] 05:46:00 Test Item Value Reference Range Interpretation [...] (BEAKER) (test code = 413) BASIC METABOLIC [id number] 06:19:00 Test Item Value Reference Range Interpretation [...] Specimen slightly ictericCBC W/PLT COUNT & AUTO [id number] 05:36:00 Test Item Value Reference Range Interpretation [...] = 2801) CBC W/PLT COUNT & AUTO [id number] 22:19:00 Test Item Value Reference Range Interpretation [...] = 2801) CBC W/PLT COUNT & AUTO IFVONKTTYUME9741-51-56 13:07:00 Test Item Value Reference Range Interpretation [...] PERCENT (BEAKER) (test code = 2801) PROTHROMBIN TIME/[id number] 09:14:00 Test Item Value Reference Range Interpretation [...] PATIEN TS. CBC W/PLT COUNT & AUTO [id number] 07:07:00 Test Item Value Reference Range Interpretation [...] (BEAKER) (test code = 2801) BASIC METABOLIC [id number] 01:47:00 Test Item Value Reference Range Interpretation [...] PATIEN TS. CBC W/PLT COUNT & AUTO [id number] 01:42:00 Test Item Value Reference Range Interpretation [...] (BEAKER) (test code = 2801) Reference Lab Tkmkear1219-12-03 14:16:00 Test Item Value Reference Range Interpretation Comments Reference Lab Testing Negative Negative Perfor med at: BN - (test code = HELIAG) [facility] [address] [place], [place] [id number] Director: Dioni Jenkins MD, [facility] ne: [phone] SURGICAL PATHOLOGY, LEVEL [id number] 13:33:[address] [address] Laboratory Printed: 01/10/[address] [place] [address] DAEMPathology Page: 1 Patient: CORNELIO RUFFIN Birthdate: 1955 Age/Sex: 62/F Spec#: [id number]: Tyrell Patino MD Specimen Date: 01/07/18 Received Date: 01/07/18 Specimen: POLYP, COLON CLINICAL DIAGNOSIS anemia PATHOLOGIC DIAGNOSIS Cecal polyp, polypectomy: - Tubular adenoma. Comment: There is no high grade dysplasia or malignancy present. Pathologist:Crystal Brumfield MD Entered by:01/10/18 - 1256 LAB.YGP PROCEDURES: 50317 GROSS DESCRIPTION A. POLYP, COLON CECUM The [...] LAB.YGP Patient: CORNELIO RUFFIN Re01/05/18Loc: T4-A MR#: [id number] CONTINUED ON NEXT PAGE Dis: 01/08/18ta: DIS IN [address] [address] Laboratory Printed: 01/10/18 1333 [facility] Page: 2 Patient: CORNELIO RUFFIN [id number] ( Continued) GROSS DESCRIPTION (Continued) MICROSCOPIC DESCRIPTION A microscopic examination was performed to arrive at the diagnostic conclusion reported. Signed (Electronically Signed) Crystal Brumfield MD 01/10/18 Patient: CORNELIO RUFFIN Re01/05/18Loc: T4-A MR#: [id number] END OF REPORT Dis: 01/08/18ta: DIS VADyvstlahs5149-02-60 11:30:00 Test Item Value Reference Range Interpretation [...] 8.9 mg/dL 7.8-10.44 N code = CA) Pgvqocwzx5637-30-77 06:56:00 Test Item Value Reference Range Interpretation Comments Chemistry (test code = MG) 1.8 mg/dL 1.6-2.6 N Comment Add to AM labsComment Add to AM uncrVwtmxpbks3731-04-44 06:56:00 Test Item Value Reference Range Interpretation Comments Chemistry (test code = 184 mg/dl < 200 Desired CHOL) Chemistry (test code = 126 mg/dL Less than 150 TRIG) Chemistry (test code = 43 mg/dL >60 Neg Risk Adult HDL levels in HDL) terms of risk f or Coronary Heart Disease > or Equal to 6 0 mg/dL Negative Risk < 40 mg/dL HIGH [...] than 8. 3 High: 5.6 - 8.3 Garber ge: 3.7 - 5.6 Below average: 2.5 - 3.7 Protection prob able: Less than 2.5 Comment Add to AM labsComment Add to AM gocjSmhwsxfkgs9093-94-72 04:30:00 Test Item Value Reference Range Interpretation [...] code = BASO#) 0.1 thou/uL 0.0-0.2 N Kqblyjfnr4488-48-56 04:24:00 Test Item Value Reference Range Interpretation [...] 8.9 mg/dL 7.8-10.44 N code = CA) Anhrdacpuh5315-67-90 15:26:00 Test Item Value Reference Range Interpretation Comments Hematology (test code = HGBT) 8.8 g/dL 12.0-16.0 L Hematology (test code = HCTT) 29.5 % 36.0-47.0 L [address] SURGICAL PATHOLOGY, LEVEL [id number] 14:22:[address] [address] Laboratory Printed: 01/07/[address] [place] [address] DAEMPathology Page: 1 Patient: CORNELIO RUFFIN Birthdate: 1955 Age/Sex: 62/F Spec#: [id number] [facility] [address]: Tyrell Patino MD Specimen Date: 01/06/18 [...] absence of intestinal metaplasia. Pathologist:Mike Green MD Enteredby:01/07/18 - 1117 LAB.YGP PROCEDURES: 34104/2, 94475/2, 67058 Patient: CORNELIO RUFFIN Re01/05/18Loc: T4-AAcct#: [id number] MR#: [id number] CONTINUED ON NEXT PAGE Dis: Sta: ADM IN [address] [address] Laboratory Printed: 01/07/18 1423 [facility] DAEMPathology Page: 2 Patient: CORNELIO RUFFIN [id number] (Continued) GROSS DESCRIPTION A. GASTRIC BIOPSY The [...] patient's name and"esophagus biopsy." The specimen consists of two pink-pino soft tissue fragments measuring0.6 cm in aggregate. The specimen is entirely submitted in cassette B. Dictated by: Tina Kimball Entered by: 01/06/18 - 2902 [facility].YGP MICROSCOPIC DESCRIPTION A microscopic examination was performed to arrive at the diagnostic conclusion reported. Signed (Electronically Signed) Mike Green MD 01/07/18 Patient: CORNELIO RUFFIN Re01/05/18Loc:T4-A MR#: [id number] END OF REPORT Dis: Sta: ADM INChemistry - Benji Wahwyfe9528-42-55 13:00:00 Test Item Value Reference Range Interpretation Comments Chemistry - Benji POSITIVE Negative A Testing (test code = ANASC) Chemistry - Benji Negative Negative SYMPHONY SC REEN Testing (test code INCLUDES: LONGO, = ANASYM) SS-A/Ro, SS-B/L a, U1RNP,RNP70, SCL-70, [...] Package Inserts - Directions forU se, September,November 12 17, [employer] ic. Chemistry - Benji Ddvecpv4367-51-74 13:00:00 Test Item Value Reference Range Interpretation Comments Chemistry - Benji 0.6 U/mL <4 Negative Testing (test code = M2T) Chemistry - Benji Less th an 4.0 U/mL Testing (test code = Negativ e 4.0 - 6.0 = XONUVCV174) U/mL = Equivoc al Greater than 6. [...] Phadia AB Benji Package Inserts - Directions [facility], September,November 12, [employer] ic. Chemistry - Benji 0.6 U/mL <4 Negative Testing (test code = M2T) Chemistry - Benji Less th an 4.0 U/mL Testing (test code = Negativ e 4.0 - 6.0 = PALQKJZ201) U/mL = Equivoc al Greater than 6. [...] [employer] Benji Package Inserts - [facility] [employer] ic. Chemistry - Benji Jfllpmi9673-84-47 13:00:00 Test Item Value Reference Range Interpretation Comments Chemistry - Benji CENP, Chela -1, RNP70, Testing (test code = Scl-70, SHUBHAM Longo) SSA/Ro, SSB/L a IgGAntibodies: Less than 7.0 Benji U /mL = Negative 7.0 - 10.0 Benji U/mL = Equivocal Grea ter than 10.0 Benji U/mL = ZDSERDTAU5XWJ IgG: Less than 5.0 Benji U/mL = Negative 5.0 - 10.0 Benji U/mL = Equivocal Great er than 10.0 Benji U/mL = POSITIVE Chemistry - Benji Zudsqxw1573-94-33 12:38:00 Test Item Value Reference Range Interpretation Comments Chemistry - Benji Testing (test 0.4 EliAU/mL <7 Negative code = CELTTGIGA) Comment add onChemistry - Benji Wcyijsp0505-73-79 12:38:00 Test Item Value Reference Range Interpretation Comments Chemistry - Benji Testing (test 0.6 EliAU/mL <7 Negative code = CELTTGIGG) Comment add onChemistry - Benji Zcbnhqb3706-92-84 12:38:00 Test Item Value Reference Range Interpretation Comments Chemistry - Benji Less th an 7.0 Benji Testing (test code = U/mL = Negative 7.0 GKGMPCS934) - 10.0 Benji U/m L = Equivocal Great er than 10.0 Benji U/mL = POSITIVE Comment add onChemistry - Aysskojx9996-02-26 12:33:00 Test Item Value Reference Range Interpretation Comments Chemistry - Specials Non-Reactive NonReactive The ames el screens (test code = HIVT) for HIV-1 p24 Antigen HIV-1/HIV-2Anti body. Ohvcgtwwem0804-10-07 10:27:00 Test Item Value Reference Range Interpretation Comments Immunology (test code = SYPHABT) Nonreactive Nonreactive Sayqlfdkzj3779-33-98 10:25:00 Test Item Value Reference Range Interpretation [...] Hematology (test code = MODERATE=15-30 cells 0-5/hpf UT) (100X) Hematology (test code = MODERATE=16-30 cells 0-5/hpf HYPO) (100X) Hematology (test code = SLIGHT = 2-3 cells 0-2/hpf POLY) (100X) Hematology (test code = MODERATE= 6-15 cells 0-1/hpf OV) (100X) Hematology (test code = Appears Adequate PCOMMENT) Zxpjcpyby6936-65-52 10:07:00 Test Item Value Reference Range Interpretation [...] (3) (test N code = OCCSTS1) Comment fpocdFokxwvflqc6846-55-26 16:59:00 Test Item Value Reference Range Interpretation [...] MPV) 10.9 fL 7.4-10.4 H Chemistry - Lwqjjcez3718-05-34 13:59:00 Test Item Value Reference Range Interpretation [...] is considered immu ne to HBV infection. Bljgfuwjzv4935-01-43 12:26:00 Test Item Value Reference Range Interpretation [...] = MPV) 5.3 fL 7.4-10.4 L Type Cphdvb2941-10-51 11:29:00 Test Item Value Reference Range Interpretation Comments Blood Type Rh (test code = BT) O POSITIVE Antibody Screen (test code = ABSC) NEGATIVE Received Blood Or Been w/in Past 90 Days? UNKNOWNReceived Blood Or Been w/in Past 90 Days? NOScheduled Surgery Date: NO SURGERYIs Surgery Date Greater than 7 days from now? NOPacked Cells - Sqvithmjibzu1020-75-06 11:29:[id number] [facility] TFUSE 01/06/18 [id number] 05:27:00 Test Item Value Reference Range Interpretation [...] code 149 U/L 8-55 H = ALT) [id number] 05:18:00 Test Item Value Reference Range Interpretation [...] BASO#) 0.0 thou/uL 0.0-0.2 N Chemistry - [id number] 00:59:00 Test Item Value Reference Range Interpretation Comments Chemistry - Specials (test Non-Reactive NonReactive code = THEPAIGM) Chemistry - Specials (test Non-Reactive S/CO NonReactive code = THBSAG) Chemistry - Specials (test Non-Reactive NonReactive code = INTHBCM) Chemistry - Specials (test Non-Reactive NonReactive code = INTHEPC) Chemistry - BNP, HgbA1c, [id number] 19:45:00 Test Item Value Reference Range Interpretation Comments Chemistry - BNP, HgbA1c, PTHi 100.4 pg/mL 0-100 H (test code = BNP) Comment add [id number] 19:38:00 Test Item Value Reference Range Interpretation Comments Chemistry (test 1.5 ng/mL 0-6.6 N code = CKMBM-T) Chemistry (test Less than < 0.028 code = TROPI-T) 0.010 ng/mL Reference Ra nge 0.00 - 0.028 ng /mL Negative 0.029 - 0.29 ng/mL Indetermi willie Greater or Equa l to 0.3 ng/mL Stron gly suggests [place] Comment add onChemistry - [id number] 18:21:00 Test Item Value Reference Range Interpretation Comments Chemistry - Specials (test code = 24.27 ng/mL 10-291 N LINDSAY) [id number] 18:14:00 Test Item Value Reference Range Interpretation [...] Hematology (test code = MODERATE=15-30 cells 0-5/hpf UT) (100X) Hematology (test code = SLIGHT = [...] Hematology (test code = Appears Adequate PCOMMENT) [id number] 17:59:00 Test Item Value Reference Range Interpretation [...] code 220 U/L 8-55 H = ALT) [id number] 17:59:00 Test Item Value Reference Range Interpretation Comments Chemistry (test code = IRON) 15 ug/dL 50-170 L [id number] 17:59:00 Test Item Value Reference Range Interpretation Comments Chemistry (test code = TIBC) 386 mcg/dL 265-497 N [id number] 17:50:00 Test Item Value Reference Range Interpretation Comments Coagulation (test 13.3 SEC 12.0-14.7 N code = PT-T) Coagulation (test 1.0 ATTE NTION: READ code = INR) CAREFULLY-- The recommended the rapeutic ranges for oral anticoagulanttr eatments are: ------ Low Int ensity: 1.5 - 2.0 Moderate In tensity: 2.0 - 3.0 High Intens ity (1): 2.5 - 3.5 High Intens ity (2): 3.0 - 4.0 CRITICAL: > 4.0 Anticoagulant? NONEMedical Necessity SUSPECT COAGULOPATHYAnticoagulant? NONEMedical Necessity: SUSP [id number] 17:50:00 Test Item Value Reference Range Interpretation Comments Coagulation (test code = PTT) 23.4 SEC 22.9-36.1 N Anticoagulant? NONEMedical Necessity SUSPECT COAGULOPATHYAnticoagulant? NONEMedical Necessity: SUSP COAG
[2022-07-16] MEDS ORDERED: ONDANSETRON 4 MG/2 ML VIAL ONE (20:59)
[2022-07-16] MEDS ORDERED: MORPHINE 2 MG/ML SYR ONE ×2 (20:59→23:34)
[2022-07-16] MEDS ORDERED: NA CHLORIDE 0.9% 500 ML ONE ×3 (20:59→23:34)
[2022-07-16 21:37] LABS: Absolute Lymphocytes (CBC) 1.9 K/uL (0.7-4.9); Hematocrit 40.7 % (36.0-45.0); MCV 93.5 fL (80-100); MPV 7.4 fL (7.6-11.3); RBC Red Blood Cell Count 4.35 M/uL (3.86-4.86)
[2022-07-16 21:48] LABS: Protime INR 1.08
[2022-07-16 22:01] LABS: Potassium 4.3 mmol/L (3.5-5.1)
--- NOTE | 2022-07-16 22:26 | RAD REPORT ---
EXAM DESCRIPTION: CT - CTHCSPWOC - 07/16/2022 10:18 pm CLINICAL HISTORY: Trauma, head and neck injury. fall down stairs COMPARISON: Head Brain Wo Cont dated 01/15/2019 TECHNIQUE: Axial 5 mm thick images of the head were obtained. Axial 2 mm thick images of the cervical spine were obtained with sagittal and coronal reconstruction images generated and reviewed. All CT scans are performed using dose optimization technique as appropriate and may include automated exposure control or mA/KV adjustment according to patient size. FINDINGS: CT HEAD WITHOUT CONTRAST: No acute hemorrhage, hydrocephalus or extra-axial collection is identified.No areas of brain edema or midline shift. Mild chronic small vessel ischemic changes Mucoperiosteal thickening within the maxillary sinuses and ethmoid air cells which are opacified. The sphenoid sinuses are shrunken and opacified as are the frontal sinuses.Left mastoid fluid.The calvar ium is intact. CT CERVICAL SPINE WITHOUT CONTRAST: No fracture or subluxation.No prevertebral soft tissues swelling is identified. Sclerotic focus at C2 is likely a bone island. No other lesions identified. IMPRESSION: No acute intracranial or cervical spine findings. Chronic sinusitis with or without sinonasal polyposis.
--- NOTE | 2022-07-16 22:27 | RAD REPORT ---
EXAM DESCRIPTION: CT - CTFB CLINICAL HISTORY: fall down stairs COMPARISON: Head C Spine Mpr Wo Con dated 07/16/2022 TECHNIQUE: Axial 2 mm thick images of the face were obtained with sagittal and coronal reconstructio n images. All CT scans are performed using dose optimization technique as appropriate and may include automated exposure control or mA/KV adjustment according to patient size. FINDINGS: No acute facial bone fracture is seen.The mandible is intact. The globes and orbital contents are grossly unremarkable.Chronic mucoperiosteal thickening within the maxillary sinuses, sphenoid sinuses, and ethmoid air cells. Frontal sinus opacification. Polypoid th ickening within the nasal passages. Left mastoid effusion. IMPRESSION: Negative for facial bone fracture. 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
[2022-07-16] MEDS ORDERED: ACETAMINOPHEN 325 MG TABLET ONE (23:33)
[2022-07-17 00:12] LABS: SARS-COV-2 RT PCR NEGATIVE (NEGATIVE)
--- NOTE | 2022-07-17 00:51 | EDPHYS ---
Physician Documentation [facility] Name: Irma Cain Age: 67 yrs Sex: Female : 1955 Arrival Date: 07/16/2022 Time: 19:46 Bed 16 Private MD: ED Physician Danette Guillen HPI: 07/16 20:05 This 67 yrs old Female presents to ER via Ambulatory with complaints of Fall Injury. cp 20:05 The patient or guardian reports injury, a laceration, clean, swelling, tenderness. cp 20:05 The complaints affect the left cheek. Context of injury: resulted from a fall, down 2 [address] stairs. Onset: The symptoms/episode began/occurred just prior to arrival. Associated signs and symptoms: Loss of consciousness: This patient did not experience any loss of consciousness. Pertinent positives: neck pain, Pertinent negatives: incontinence, seizure, vomiting. Historical: - Allergies: 19:58 Aspirin; hb 19:58 Neosporin (evu-[id number]); hb 19:58 NSAIDS; hb 19:58 Talwin; hb - PMHx: 19:58 Asthma; Hypertensive disorder; UNMEDICATED; hb - Immunization history:: Adult Immunizations up to date. - Social history:: Smoking status: Patient denies any tobacco usage or history of. - Immunization history: Last tetanus immunization: unknown. ROS: 20:10 Constitutional: Negative for fever, poor PO intake. cp 20:10 Eyes: Negative for injury, pain, redness, and discharge. cp 20:10 ENT: Negative for drainage from ear(s), ear pain, difficulty swallowing, difficulty handling secretions. 20:10 Neck: Positive for bony tenderness. 20:10 Cardiovascular: Negative for chest pain, edema, palpitations. 20:10 Respiratory: Positive for cough. 20:10 Abdomen/GI: Negative for abdominal pain, nausea, vomiting, and diarrhea. 20:10 Back: Positive for pain at rest. 20:10 MS/extremity: Positive for pain, tenderness, of the left upper leg, Negative for decreased range of motion, deformity. 20:10 Skin: Negative for cellulitis, rash. 20:10 Neuro: Negative for altered mental status, loss of consciousness, syncope, weakness. 20:10 All other systems are negative. Exam: 20:15 Constitutional: The patient appears in no acute distress, alert, awake, cp non-diaphoretic, non-toxic, well developed, well nourished. 20:15 Head/face: Noted is ecchymosis, that is mild, of the left cheek, a laceration(s), that cp is superficial, of the left cheek, swelling, that is moderate, of the left cheek. 20:15 Eyes: Pupils: equal, round, and reactive to light and accomodation, Extraocular movements: intact throughout, Conjunctiva: normal, no exudate, no injection, Sclera: no appreciated abnormality, Lids and lashes: appear normal, bilaterally. 20:15 ENT: External ear(s): are unremarkable, Nose: is normal, Mouth: Lips: moist, Oral mucosa: pink and intact, moist, Posterior pharynx: Airway: no evidence of obstruction, patent, swelling, is not appreciated, erythema, is not appreciated, exudate, is not appreciated. 20:15 Neck: C-spine: C-collar placed in ED, vertebral tenderness, that is mild, appreciated at C6 and C7, crepitus, is not appreciated. 20:15 Chest/axilla: Inspection: normal, Palpation: crepitus, is not appreciated, tenderness, that is mild, of the left lateral posterior chest and left lateral anterior chest. 20:15 Cardiovascular: Rate: tachycardic, Rhythm: regular, Edema: is not appreciated, JVD: is not appreciated. 20:15 Respiratory: the patient does not display signs of respiratory distress, Respirations: normal, no use of accessory muscles, no retractions, labored breathing, is not present, Breath sounds: are clear throughout, no decreased breath sounds, no stridor, no wheezing. 20:15 Abdomen/GI: Inspection: abdomen appears normal, Bowel sounds: active, all quadrants, Palpation: abdomen is soft and non-tender, in all quadrants. 20:15 Back: pain, that is mild, of the low back area and mid back area. 20:15 Musculoskeletal/extremity: Extremities: noted in the left upper leg: pain, tenderness, There is no evidence of decreased ROM, deformity. 20:15 Neuro: Orientation: to person, place \T\ time. Mentation: is normal, Motor: moves all fours, strength is normal, Sensation: is normal. 07/17 00:17 ECG was reviewed by the Attending Physician. cp Vital Signs: 07/16 19:55 BP 183 / 80; Pulse 103; Resp 16; Temp 98.6(O); Pulse Ox 96% on R/A; Weight 49.9 kg; hb Height 5 ft. (152.40 cm); Pain 6/10; 21:00 BP 148 / 68; Pulse 103; Resp 20; Pulse Ox 96% on R/A; Pain 6/10; pf1 22:00 BP 138 / 72; Pulse 98; Resp 20; Pulse Ox 94% on R/A; Pain 5/10; pf1 23:12 BP 143 / 64; Pulse 111; Resp 20; Temp 101.7(O); Pulse Ox 95% ; Pain 6/10; pf1 07/17 00:00 BP 141 / 68; Pulse 108; Resp 22; Temp 99.7; Pulse Ox 94% on R/A; Pain 5/10; pf1 01:00 BP 137 / 69; Pulse 99; Resp 19; Temp 99.7; Pulse Ox 96% on R/A; Pain 5/10; pf1 07/16 19:55 Body Mass Index 21.48 (49.90 kg, 152.40 cm) hb [place] Coma Score: 07/16 19:58 Eye Response: spontaneous(4). Verbal Response: oriented(5). Motor Response: obeys hb commands(6). Total: 15. 20:05 Eye Response: spontaneous(4). Verbal Response: oriented(5). Motor Response: obeys cp commands(6). Total: 15. 07/17 00:50 Eye Response: spontaneous(4). Verbal Response: oriented(5). Motor Response: obeys cp commands(6). Total: 15. Trauma Score (Adult): 07/16 19:58 Eye Response: spontaneous(1); Verbal Response: oriented(1); Motor Response: obeys hb commands(2); Systolic BP: > 89 mm Hg(4); Respiratory Rate: 10 to 29 per min(4); Jorge Score: 15; Trauma Score: 12 MDM: 19:57 Patient medically screened. 07/17 00:50 Data reviewed: vital signs, nurses notes, lab test result(s), EKG, radiologic studies, cp CT scan. 00:50 Test interpretation: by ED physician or midlevel provider: ECG. Physician consultation: suki Gaston Isaias RAMÍREZ was contacted at 00:48, regarding admission, to the telemetry unit. patient's condition, and will see patient in ED, shortly. 07/16 20:29 Order name: Basic Metabolic Panel; Complete Time: 22:37 07/16 22:37 Interpretation: Normal except: CRE 1.10; GFR 55. 07/16 20:29 Order name: CBC with Diff; Complete Time: 21:49 07/16 21:49 Interpretation: Normal except: WBC 20.90; MPV 7.4; KAMRAN% 82.2; LYM% 9.0; NEUT A 17.2. 07/16 20:29 Order name: Type And Screen; Complete Time: 00:36 07/17 00:43 Interpretation: Reviewed. 07/16 20:29 Order name: PT-INR; Complete Time: 21:49 07/17 00:43 Interpretation: Reviewed. 07/16 20:29 Order name: Ptt, Activated; Complete Time: 21:49 07/16 21:50 Order name: Urine Microscopic Only; Complete Time: 01:36 07/16 23:14 Order name: COVID-19/FLU A+B; Complete Time: 00:36 07/16 23:18 Order name: Lactate w/ 2H reflex if indic.; Complete Time: 01:36 07/17 05:02 Interpretation: Reviewed. 07/16 23:18 Order name: Procalcitonin; Complete Time: 05:01 07/17 05:01 Interpretation: Reviewed. 07/16 23:18 Order name: Blood Culture Adult (2) 07/17 00:18 Order name: CREATININE WHOLE BLOOD; Complete Time: 00:36 EDND 07/17 00:44 Interpretation: Within normal limits. 07/17 01:34 Order name: Urine Dipstick-Ancillary; Complete Time: 05:01 EDND 07/17 05:02 Interpretation: Normal except: UKET Trace; UBLD Trace-intact. 07/17 04:50 Order name: CBC with Automated Diff; Complete Time: 05:01 EDND 07/17 05:50 Order name: Comprehensive Metabolic Panel EDND 07/16 20:36 Order name: CT Facial Bones W/O Con; Complete Time: 22:37 07/17 00:47 Interpretation: Report reviewed. cp 07/16 22:18 Order name: Chest Abdomen Pelvis W Cont EDMS 07/16 22:19 Order name: Head C Spine Mpr Wo Con; Complete Time: 22:37 EDMS 07/17 01:14 Order name: XRAY Femur LEFT cp 07/17 05:50 Order name: T4 Free EDMS 07/17 05:50 Order name: Thyroid Stimulating Hormone EDMS 07/16 20:29 Order name: Labs collected and sent; Complete Time: 01:29 cp 07/16 21:50 Order name: Urine Dipstick-Ancillary (obtain specimen); Complete Time: 04:13 cp 07/16 23:18 Order name: EKG; Complete Time: 23:19 cp 07/16 23:18 Order name: EKG - Nurse/Tech; Complete Time: 00:33 cp EC:17 Rate is 104 beats/min. Rhythm is regular. [place] interval is normal. QRS interval is cp normal. QT interval is normal. T waves are Inverted in lead aVR. Interpreted by me. Reviewed by me. Administered Medications: 00:51 Discontinued: NS 0.9% 500 ml IV at 100 ml/hr continuous cp 07/16 21:25 Drug: NS 0.9% 500 ml Route: IV; Rate: bolus; Site: right antecubital; pf1 22:00 Follow up: IV Status: Completed infusion; IV Intake: 500ml pf1 :25 Drug: morphine 2 mg Route: IVP; Infused Over: 4 mins; Site: right antecubital; pf1 07/17 04:36 Follow up: Response: No adverse reaction as6 07/16 21:25 Drug: Zofran (Ondansetron) 4 mg Route: IVP; Site: right antecubital; pf1 22:25 Follow up: Response: Nausea is decreased pf1 22:35 Drug: NS 0.9% 500 ml Route: IV; Rate: bolus; Site: left antecubital; pf1 07/17 04:36 Follow up: Response: No adverse reaction; IV Status: Completed infusion; IV Intake: as6 500ml 07/16 23:00 Drug: morphine 2 mg Route: IVP; Infused Over: 4 mins; Site: left wrist; pf1 07/17 00:00 Follow up: Response: No adverse reaction; Marked relief of symptoms; Pain is decreased; pf1 RASS: Alert and Calm (0) 07/16 23:50 Drug: NS 0.9% 500 ml Route: IV; Rate: 100 ml/hr; Site: left antecubital; pf1 07/17 00:55 Follow up: IV Status: Order to discontinue infusion; IV Intake: 100ml pf1 07/16 23:59 Drug: Tylenol 650 mg Route: PO; pf1 07/17 04:36 Follow up: Response: No adverse reaction as6 00:55 Drug: NS 0.9% 500 ml Route: IV; Rate: bolus; Site: right wrist; pf1 01:30 Follow up: IV Status: Completed infusion; IV Intake: 500ml pf1 01:00 Drug: NS 0.9% 500 ml Route: IV; Rate: 100 ml/hr; Site: right wrist; pf1 01:30 Follow up: IV Status: Completed infusion; IV Intake: 500ml pf1 01:30 Drug: NS 0.9% 1000 ml Route: IV; Rate: 100 ml/hr; Site: right wrist; pf1 03:00 Follow up: IV Status: Completed infusion; IV Intake: 200ml pf1 04:37 Follow up: Response: No adverse reaction; IV Status: Infusion continued upon admission; as6 IV Intake: 300ml 01:32 Drug: Xopenex (levalbuterol) (3) 1.25 mg Route: Inhalation; pf1 04:37 Follow up: Response: No adverse reaction as6 01:32 Drug: AtroVENT (ipratropium) Aerosol 0.5 mg Route: Inhalation; pf1 02:14 Follow up: Response: Marked relief of symptoms pf1 01:45 Drug: Rocephin - (cefTRIAXone) 1 grams Route: IVPB; Infused Over: 30 mins; Site: left pf1 wrist; 02:15 Follow up: IV Status: Completed infusion; IV Intake: 50ml pf1 01:45 Drug: Zithromax (azithromycin) 500 mg Route: IVPB; Infused Over: 1 hrs; Site: right pf1 wrist; 02:45 Follow up: Response: No adverse reaction pf1 04:36 Follow up: Response: No adverse reaction; IV Status: Completed infusion; IV Intake: as6 250ml 04:14 Not Given (Duplicate Order): morphine 2 mg IVP once over 4 mins as6 Disposition Summary: 07/17/22 00:50 Hospitalization Ordered Hospitalization Status: Inpatient Admission cp Provider: Lopez Ribera cp Condition: Stable cp Problem: new cp Symptoms: have improved cp Bed/Room Type: Standard cp Location: Telemetry/MedSurg (Inpatient)(07/17/22 07:12) ja1 Room Assignment: 216(07/17/22 07:12) [facility] Diagnosis - Pneumonia in diseases classified elsewhere cp - Chronic sinusitis, unspecified cp - Fall (on) (from) other stairs and steps cp - Contusion of unspecified part of head, initial encounter cp Forms: - Medication Reconciliation Form cp - SBAR form cp Addendum: 07/18/2022 19:03 STAFF ATTESTATION STATEMENT: I was immediately available onsite in the emergency s d2 department for consultation in the care of this patient. I did not see or examine this patient. Danette Guillen MD. Signatures: Dispatcher [employer] EDND Alek Esparza, WARPING MILL OPERATOR-C WARPING MILL OPERATOR-Cla1 Moi Rivera PA PA cp Cass Larios, RN RN cg Frannie Dyer, RN RN Shaka Madrid RN RN ja1 Danette Guillen MD MD sd2 Marlen perez RN RN pf1 Carlos Olguin RN as6 Corrections: (The following items were deleted from the chart) 07/16 22:19 20:40 Head C Spine CAP W Con+CT.RAD.BRZ ordered. EDND EDND 07/17 01:40 00:50 Telemetry/MedSurg (Inpatient) cp cg 01:40 00:50 cp cg 07:12 01:40 [facility] ER HOLD cg ja1 07:12 01:40 ERHOLD- cg ja1
--- NOTE | 2022-07-17 00:51 | ER ---
Nurse's Notes [facility] Name: Irma Cain Age: 67 yrs Sex: Female : 1955 Arrival Date: 07/16/2022 Time: 19:46 Bed 16 Private MD: Diagnosis: Pneumonia in diseases classified elsewhere;Chronic sinusitis, unspecified;Fall (on) (from) other stairs and steps;Contusion of unspecified part of head, initial encounter Presentation: 07/16 19:55 Chief complaint: Left cheek laceration after mechanical fall from standing approx 2 hb hours ago. Pt reports fall from second step and landed on left side on concrete. Negative LOC, not on blood thinner. Coronavirus screen: At this time, the client does not indicate any symptoms associated with coronavirus-19. Ebola Screen: No symptoms or risks identified at this time. Initial Sepsis Screen: Does the patient meet any 2 criteria? No. Patient's initial sepsis screen is negative. Does the patient have a suspected source of infection? No. Patient's initial sepsis screen is negative. Risk Assessment: Do you want to hurt yourself or someone else? Patient reports no desire to harm self or others. Onset of symptoms was July 16, 2022. 19:55 Method Of Arrival: Ambulatory hb 19:55 Acuity: FELA 3 hb 19:57 Care prior to arrival: None. Mechanism of Injury: Fall down 2 steps. Trauma event hb details: Injury occurred in the [facility], Injury occurred: at home. Injury occurred: July 16, 2022. Trauma Activation: Not Applicable Physician: ED Physician; Name: ; Notified At: ; Arrived At: Physician: General Surgeon; Name: ; Notified At: ; Arrived At: Physician: Radiology; Name: ; Notified At: ; Arrived At: Physician: Respiratory; Name: ; Notified At: ; Arrived At: Physician: Lab; Name: ; Notified At: ; Arrived At: Historical: - Allergies: 19:58 Aspirin; hb 19:58 Neosporin ([id number]); hb 19:58 NSAIDS; hb 19:58 Talwin; hb - PMHx: 19:58 Asthma; Hypertensive disorder; UNMEDICATED; hb - Immunization history:: Adult Immunizations up to date. - Social history:: Smoking status: Patient denies any tobacco usage or history of. - Immunization history: Last tetanus immunization: unknown. Screenin:58 Abuse screen: Denies threats or abuse. Denies injuries from another. Tuberculosis hb screening: No symptoms or risk factors identified. 20:15 [facility] ED Fall Risk Assessment (Adult) History of falling in the last 3 months, hb including since admission Yes- single mechanical fall (1 pt) Confusion or Disorientation No (0 pts) Intoxicated or Sedated No (0 pts) Impaired Gait No (0 pts) Mobility Assist Device Used No (0 pt) Altered Elimination No (0 pt) Score/Fall Risk Level 0 - 2 = Low Risk Oriented to surroundings, Maintained a safe environment. Nutritional screening: No deficits noted. Primary Survey: 19:57 NO uncontrolled hemorrhage observed. A: The client is awake and alert. The airway is hb patent. Breathing/Chest: Spontaneous respiratory effort, equal unlabored respirations, breath sounds clear bilaterally, regular pattern, symmetrical chest rise and fall. Circulation: No external hemorrhage present. Regular and strong central pulse, skin warm/dry/normal color. Disability Pupils are equal, round, reactive to light and accommodation. Client is alert. Exposure/Environment: All clothing and personal items were removed. Forensic evidence collection is not deemed to be indicated at this time. Items placed in patient belonging bag. There is no evidence of uncontrolled external bleeding. Obvious injury(ies) are noted at this time: laceration noted to left cheek, bleeding controlled A warming method has been applied: A warm blanket has been provided to the patient. 07/17 00:00 Reassessment Alertness and Airway: Awake and alert. The airway is patent. Airway Patent pf1 Breathing: Spontaneous respiratory effort, equal unlabored respirations, breath sounds clear bilaterally, regular pattern with symmetrical chest rise and fall. Respiratory effort Spontaneous Unlabored. Secondary Survey: 07/16 19:58 HEENT: Face Other laceration noted to left cheek. Gastrointestinal: No deficits noted. hb : No deficits noted. No signs and/or symptoms were reported regarding the genitourinary system. Musculoskeletal: Reports pain "all over". Assessment: 20:05 General: Appears in no apparent distress. Behavior is calm, cooperative. Pain: Pain hb currently is 6 out of 10 on a pain scale. Neuro: Level of Consciousness is awake, alert, obeys commands, Oriented to person, place, time, situation. EENT: No deficits noted. No signs and/or symptoms were reported regarding the EENT system. Cardiovascular: Patient's skin is warm and dry. Respiratory: Respiratory effort is even, unlabored, Respiratory pattern is regular, symmetrical. GI: No deficits noted. No signs and/or symptoms were reported involving the gastrointestinal system. : No deficits noted. No signs and/or symptoms were reported regarding the genitourinary system. Derm: Skin is pink, warm \\T\\ dry. Musculoskeletal: Reports pain all over, left sided facial pain. Injury Description: Laceration sustained to left cheek is clean, 2.6 to 7.5 cm long, not bleeding, was sustained 2-4 hours ago. 21:00 Reassessment: Patient appears in no apparent distress at this time. Patient is alert, pf1 oriented x 3, equal unlabored respirations, skin warm/dry/pink. 21:00 General: Appears in no apparent distress. comfortable, well groomed, well developed, pf1 Behavior is calm, cooperative, appropriate for age, quiet. Pain: Complains of pain in face and left cheek Pain currently is 6 out of 10 on a pain scale. Quality of pain is described as aching. Neuro: Level of Consciousness is awake, alert, obeys commands, Oriented to person, place, time, situation. Cardiovascular: No deficits noted. Heart tones S1 S2 Capillary refill < 3 seconds. Respiratory: Airway is patent Respiratory effort is even, unlabored, Respiratory pattern is regular, symmetrical, Breath sounds with wheezes bilaterally. GI: No deficits noted. No signs and/or symptoms were reported involving the gastrointestinal system. Abdomen is round non-distended, Bowel sounds present X 4 quads. Abd is soft and non tender X 4 quads. : No deficits noted. No signs and/or symptoms were reported regarding the genitourinary system. EENT: No deficits noted. No signs and/or symptoms were reported regarding the EENT system. Derm: Skin is pink, warm \\T\\ dry. Wound noted 3 cm superificial laceration to left cheek and abrasion with contusion to right knee. Musculoskeletal: Reports pain in left upper leg pain of 6. Injury Description: Abrasion Laceration sustained to left cheek and right knee is 2.6 to 7.5 cm long, was sustained 2-4 hours ago. 21:45 General: [facility] pf1 22:00 Reassessment: Patient appears in no apparent distress at this time. Patient is alert, pf1 oriented x 3, equal unlabored respirations, skin warm/dry/pink. Patient states symptoms have improved. 23:00 Reassessment: Patient appears in no apparent distress at this time. Patient is alert, pf1 oriented x 3, equal unlabored respirations, skin warm/dry/pink. Patient states symptoms have improved. Cleansed patient left cheek and right knee and applied steri-strips to left cheek. 23:35 General: Patient taken to [facility] again. pf1 07/17 00:00 Reassessment: Patient appears in no apparent distress at this time. Patient is alert, pf1 oriented x 3, equal unlabored respirations, skin warm/dry/pink. Patient states symptoms have improved. Vital Signs: 07/16 19:55 BP 183 / 80; Pulse 103; Resp 16; Temp 98.6(O); Pulse Ox 96% on R/A; Weight 49.9 kg; hb Height 5 ft. (152.40 cm); Pain 6/10; 21:00 BP 148 / 68; Pulse 103; Resp 20; Pulse Ox 96% on R/A; Pain 6/10; pf1 22:00 BP 138 / 72; Pulse 98; Resp 20; Pulse Ox 94% on R/A; Pain 5/10; pf1 23:12 BP 143 / 64; Pulse 111; Resp 20; Temp 101.7(O); Pulse Ox 95% ; Pain 6/10; pf1 07/17 00:00 BP 141 / 68; Pulse 108; Resp 22; Temp 99.7; Pulse Ox 94% on R/A; Pain 5/10; pf1 01:00 BP 137 / 69; Pulse 99; Resp 19; Temp 99.7; Pulse Ox 96% on R/A; Pain 5/10; pf1 07/16 19:55 Body Mass Index 21.48 (49.90 kg, 152.40 cm) hb Jorge Coma Score: 07/16 19:58 Eye Response: spontaneous(4). Verbal Response: oriented(5). Motor Response: obeys hb commands(6). Total: 15. 20:05 Eye Response: spontaneous(4). Verbal Response: oriented(5). Motor Response: obeys cp commands(6). Total: 15. 07/17 00:50 Eye Response: spontaneous(4). Verbal Response: oriented(5). Motor Response: obeys cp commands(6). Total: 15. Trauma Score (Adult): 07/16 19:58 Eye Response: spontaneous(1); Verbal Response: oriented(1); Motor Response: obeys hb commands(2); Systolic BP: > 89 mm Hg(4); Respiratory Rate: 10 to 29 per min(4); Jorge Score: 15; Trauma Score: 12 ED Course: 19:46 Patient arrived in ED. [id number] 19:53 Moi Rivera PA is PHCP. cp 19:53 Danette Guillen MD is Attending Physician. cp 19:57 Triage completed. hb 19:58 Patient has correct armband on for positive identification. hb 19:58 Patient maintains SpO2 saturation greater than 95% on room air. hb 19:59 Arm band placed on right wrist. hb 20:02 Thermoregulation: warm blanket given to patient. hb 20:19 Marlen perez, RN is Primary Nurse. pf1 20:30 Missed attempt(s): 20 gauge in left antecubital area. pf1 21:20 Initial lab(s) drawn, by me, sent to lab. Inserted saline lock: 20 gauge in right bb antecubital area, using aseptic technique. Blood collected. 22:19 CT Facial Bones W/O Con In Process Unspecified. EDMS 22:19 Head C Spine Mpr Wo Con In Process Unspecified. EDMS 23:05 Inserted saline lock: 20 gauge in left antecubital area, using aseptic technique. bb 23:41 COVID-19/FLU A+B Sent. pf1 23:45 Chest Abdomen Pelvis W Cont In Process Unspecified. EDMS 07/17 00:40 Inserted saline lock: 22 gauge in right wrist, using aseptic technique. Blood collected.pf1 00:47 Lopez Ribera MD is Hospitalizing Provider. cp 00:48 Procalcitonin Sent. pf1 00:49 Lactate w/ 2H reflex if indic. Sent. pf1 00:50 Patient admitted, IV remains in place. pf1 01:40 Inserted saline lock: 22 gauge in left wrist, using aseptic technique. Blood collected. pf1 01:43 No provider procedures requiring assistance completed. pf1 Administered Medications: 00:51 Discontinued: NS 0.9% 500 ml IV at 100 ml/hr continuous cp 07/16 21:25 Drug: NS 0.9% 500 ml Route: IV; Rate: bolus; Site: right antecubital; pf1 22:00 Follow up: IV Status: Completed infusion; IV Intake: 500ml pf1 21:25 Drug: morphine 2 mg Route: IVP; Infused Over: 4 mins; Site: right antecubital; pf1 07/17 04:36 Follow up: Response: No adverse reaction as6 07/16 21:25 Drug: Zofran (Ondansetron) 4 mg Route: IVP; Site: right antecubital; pf1 22:25 Follow up: Response: Nausea is decreased pf1 22:35 Drug: NS 0.9% 500 ml Route: IV; Rate: bolus; Site: left antecubital; pf1 07/17 04:36 Follow up: Response: No adverse reaction; IV Status: Completed infusion; IV Intake: as6 500ml 07/16 23:00 Drug: morphine 2 mg Route: IVP; Infused Over: 4 mins; Site: left wrist; pf1 07/17 00:00 Follow up: Response: No adverse reaction; Marked relief of symptoms; Pain is decreased; pf1 RASS: Alert and Calm (0) 07/16 23:50 Drug: NS 0.9% 500 ml Route: IV; Rate: 100 ml/hr; Site: left antecubital; pf1 07/17 00:55 Follow up: IV Status: Order to discontinue infusion; IV Intake: 100ml pf1 07/16 23:59 Drug: Tylenol 650 mg Route: PO; pf1 07/17 04:36 Follow up: Response: No adverse reaction as6 00:55 Drug: NS 0.9% 500 ml Route: IV; Rate: bolus; Site: right wrist; pf1 01:30 Follow up: IV Status: Completed infusion; IV Intake: 500ml pf1 01:00 Drug: NS 0.9% 500 ml Route: IV; Rate: 100 ml/hr; Site: right wrist; pf1 01:30 Follow up: IV Status: Completed infusion; IV Intake: 500ml pf1 01:30 Drug: NS 0.9% 1000 ml Route: IV; Rate: 100 ml/hr; Site: right wrist; pf1 03:00 Follow up: IV Status: Completed infusion; IV Intake: 200ml pf1 04:37 Follow up: Response: No adverse reaction; IV Status: Infusion continued upon admission; as6 IV Intake: 300ml 01:32 Drug: Xopenex (levalbuterol) (3) 1.25 mg Route: Inhalation; pf1 04:37 Follow up: Response: No adverse reaction as6 01:32 Drug: AtroVENT (ipratropium) Aerosol 0.5 mg Route: Inhalation; pf1 02:14 Follow up: Response: Marked relief of symptoms pf1 01:45 Drug: Rocephin - (cefTRIAXone) 1 grams Route: IVPB; Infused Over: 30 mins; Site: left pf1 wrist; 02:15 Follow up: IV Status: Completed infusion; IV Intake: 50ml pf1 01:45 Drug: Zithromax (azithromycin) 500 mg Route: IVPB; Infused Over: 1 hrs; Site: right pf1 wrist; 02:45 Follow up: Response: No adverse reaction pf1 04:36 Follow up: Response: No adverse reaction; IV Status: Completed infusion; IV Intake: as6 250ml 04:14 Not Given (Duplicate Order): morphine 2 mg IVP once over 4 mins as6 Medication: 00:50 VIS not applicable for this client. pf1 Intake: 07/16 22:00 IV: 500ml; Total: 500ml. pf1 07/17 00:00 PO: 360ml (Water); IV: 1550ml (IV Fluid); Total: 2410ml. pf1 00:55 IV: 100ml; Total: 2510ml. pf1 01:30 IV: 500ml; Total: 3010ml. pf1 01:30 IV: 500ml; Total: 3510ml. pf1 02:15 IV: 50ml; Total: 3560ml. pf1 03:00 IV: 200ml; Total: 3760ml. pf1 04:36 IV: 500ml; Total: 4260ml. as6 04:36 IV: 250ml; Total: 4510ml. as6 04:37 IV: 300ml; Total: 4810ml. as6 Output: 00:00 Urine: 1ml; Total: 1ml. pf1 Outcome: 07/16 00:00 Patient's length of stay in the Emergency Department was greater than 2 hours. Patient pf1 being being admitted for pneumoniaPatient's length of stay extended due to 07/17 00:50 Decision to Hospitalize by Provider. cp 00:50 Admitted to ER Hold. Please see [facility] for further documentation. pf1 00:50 Condition: stable pf1 00:50 Instructed on the need for admit, Demonstrated understanding of instructions. 07:44 Patient left the ED. db Signatures: Dispatcher [employer] EDSmiley Green, RN RN bb Moi Rivera PA PA cp Frannie Dyer, CANDACE RN Anyi Santamaria [id number] Carlos Olguin RN RN as6 Shraddha Laureano RN RN db Marlen perez RN RN pf1 Corrections: (The following items were deleted from the chart) 07/16 19:59 19:59 VIS not applicable for this client. hb hb 21:44 21:44 Missed attempt(s): 20 gauge in left antecubital area. pf1 pf1 07/17 04:17 04:10 General: Appears in no apparent distress. pf1 pf1
[2022-07-17] MEDS ORDERED: CEFTRIAXONE 1000 MG/VIAL ONE (01:17)
[2022-07-17 01:18] LABS: Urine Bacteria None Seen /HPF (<20); Urine RBC <5 /HPF (None Seen)
[2022-07-17] MEDS ORDERED: AZITHROMYCIN 500 MG INJ IVPB ONE (01:18)
[2022-07-17] MEDS ORDERED: IPRATROPIUM BROM 0.5MG/2.5ML ONE (01:18)
[2022-07-17] MEDS ORDERED: LEVALBUTEROL 1.25 MG/3 ML NEB ONE (01:18)
[2022-07-17] MEDS ORDERED: NA CHLORIDE 0.9% 50 ML IV ONE (01:19)
[2022-07-17] MEDS ORDERED: NA CHLORIDE 0.9% 0 ML ONE (01:19)
[2022-07-17 01:34] LABS: Urine Blood Trace-intact (Negative); Urine Glucose Negative (Negative); Urine Protein Negative (Negative); Urine Specific Gravity 1.015 (1.005-1.030)
[2022-07-17] MEDS ORDERED: NA CHLORIDE 0.9% 1,000 ML ONE (01:56)
--- NOTE | 2022-07-17 02:09 | P.HP ---
Certification for Inpatient Patient admitted to: Inpatient With expected LOS: >2 Midnights Patient will require the following post-hospital care: None Practitioner: I am a practitioner with admitting privileges, knowledge of patient current condition, hospital course, and medical plan of care. Services: Services provided to patient in accordance with Admission requirements found in Title 42 Section 412.3 of the Code of Federal Regulations <Alek Esparza - Last Filed: 07/17/22 02:04> Patient History Date of Service: 07/17/22 Reason for admission: Sepsis, pneumonia, fall History of Present Illness: 67-year-old female with history of asthma, hypertension presents the emergency department for mechanical fall. 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 Cough is nonproductive. She was evaluated here in the emergency department her labs were significant for leukocytosis white blood cell count of 20.9 negative for flu/COVID head/C-spine CT negative for acute intracranial or cervical spine findings. Chronic sinusitis with or without sinonasal polyposis, CT facial bones negative for facial bone fracture, probable sinonasal polyposis. CT chest abdomen pelvis revealed focal area of consolidation lateral aspect right middle lobe, findings correspond to infection/inflammation or pneumonia, diffuse nodular tree-in-bud distribution within the right apical segment upper lobe, lateral segment right lower lobe, lateral aspect posterior segment left lower lobe, findings are suspicious for infectious or inflammatory process. SIRS criteria were met including leukocytosis, tachycardia, fever. Lactate less than 2 no hypotension noted or endorgan damage. Will admit for further valuation and management of sepsis secondary to bilateral pneumonia. - Past Medical/Surgical History Diabetic: No -: Asthma -: Depression -: Osteoporosis -: GERD with hiatal hernia -: Obesity -: Hypertension -: -: Tubal ligation -: cholecystectomy -: cataract surgery -: rt shoulder sx x2 -: sx on left knee Psychosocial/ Personal History: Patient is . She has 1 child. She is retired. - Family History Mother -: Heart disease, Hypertension, Diabetes Father -: Heart disease, Hypertension, Lung disease, Cancer, Other (see notes) Notes: asbestosis - Social History Smoking Status: Never smoker Alcohol use: No CD- Drugs: No Caffeine use: Yes Place of Residence: Home <Alek Esparza - Last Filed: 07/17/22 02:04> Date of Service: 07/17/22 <Lopez Ribera - Last Filed: 07/17/22 16:15> Allergies aspirin Allergy (Intermediate, Verified 11/07/12 16:55) Anaphylaxis bacitracin [From Neosporin ([id number])] Allergy (Intermediate, Verified 11/07/12 16:55) aquino skin bacitracin zinc [From Neosporin ([id number])] Allergy (Intermediate, Verified 11/07/12 16:55) aquino skin diphenhydramine HCl [From Benadryl] Allergy (Intermediate, Verified 06/03/18 18:20) Hives neomycin sulfate [From Neosporin ([id number])] Allergy (Intermediate, Verified 11/07/12 16:55) aquino skin pentazocine lactate [From Talwin] Allergy (Intermediate, Verified 06/03/18 18:19) Itching polymyxin B [From Neosporin ([id number])] Allergy (Intermediate, Verified 11/07/12 16:55) aquino skin Neosporin ([id number]) Allergy (Uncoded 06/03/18 18:20) Itching NSAIDS Allergy (Uncoded 02/11/18 06:38) Unknown Home Medications: RX: Albuterol Inhaler [Ventolin Inhaler*] 2 puff IN Q4H PRN 09/03/18 RX: Albuterol Sulfate [Ventolin Hfa] 2 puff IN Q4H PRN 09/03/18 RX: Venlafaxine HCl [Effexor XR] 1 tab PO DAILY 09/03/18 RX: predniSONE [Deltasone*] 1 tab PO DAILY 09/03/18 RX: Pantoprazole [Protonix Tab*] 40 mg PO ACB #30 tab 09/04/18 Alprazolam [Xanax] 2 mg PO DAILY 07/17/22 Dextroamphetamine/Amphetamine [Adderall 10 mg Tablet] 1 tab PO DAILY 07/17/22 Fluticasone/Umeclidin/Vilanter [Trelegy Ellipta 100-62.5-25] 1 puff PO BEDTIME 07/17/22 Lisinopril [Zestril] 20 mg PO DAILY 07/17/22 Venlafaxine HCl [Effexor XR] 1 tab PO DAILY 07/17/22 Review of Systems 10-point ROS is otherwise unremarkable General: Fever, Chills, Malaise Respiratory: Cough, Shortness of Breath, Wheezing <Alek Esparza - Last Filed: 07/17/22 02:04> Physical Examination - Physical Exam General: Alert, In no apparent distress, Oriented x3 HEENT: Atraumatic, PERRLA, Mucous membr. moist/pink, EOMI, Sclerae nonicteric Neck: Supple, 2+ carotid pulse no bruit, No LAD, Without JVD or thyroid abnormality Respiratory: Diminished, Expiratory wheezes Cardiovascular: Regular rate/rhythm, Normal S1 S2 Capillary refill: <2 Seconds Gastrointestinal: Normal bowel sounds, No tenderness Musculoskeletal: No tenderness Integumentary: No rashes Neurological: Normal speech, Normal strength at 5/5 x4 extr, Normal tone, Normal affect - Studies Laboratory Data (last 24 hrs) 07/16/22 21:20: PT 11.9, INR 1.08, APTT 25.5 07/16/22 21:20: WBC 20.90 H*, Hgb 13.2, Hct 40.7, Plt Count 270 07/16/22 21:20: Sodium 137, Potassium 4.3, BUN 18, Creatinine 1.10 H, Glucose 104 <Alek Esparza - Last Filed: 07/17/22 02:04> - Studies Laboratory Data (last 24 hrs) 07/16/22 21:20: PT 11.9, INR 1.08, APTT 25.5 07/16/22 21:20: WBC 20.90 H*, Hgb 13.2, Hct 40.7, Plt Count 270 07/16/22 21:20: Sodium 137, Potassium 4.3, BUN 18, Creatinine 1.10 H, Glucose 104 <Lopez Ribera - Last Filed: 07/17/22 16:15> Assessment and Plan - Plan Assessment: Sepsis secondary to bilateral community-acquired pneumonia Asthma with exacerbationon chronic steroids Depression/anxiety Mechanical fall Plan: Sepsis secondary to bilateral community-acquired pneumonia: Blood cultures obtai slick in ED, lactate less than 2, no endorgan damage. Continue antibiotics Rocephin/Zithromax. Pulmonology consult in place. Asthma with exacerbationon chronic steroids: Patient takes prednisone 10 mg daily will increase to 20 mg twice daily for the time being, pulmonology consult in place. Patient currently saturating well on room air. Depression/anxiety: Continue home medications Mechanical fall: Patient mechanical fall going down the stairs, PT consult in place. DVT PPX: Lovenox Code status: Full Discharge Plan: Home Plan to discharge in: 72 Hours - Advance Directives Does patient have a Living Will: No Does patient have a Durable POA for Healthcare: No - Code Status/Comfort Care Code Status Assessed: Yes (Full code) Critical Care: No Time Spent Managing Pts Care (In Minutes): 55 <Alek Esparza - Last Filed: 07/17/22 02:04> Physician Review: Patient Assessed, Agree with Above Assessment and Plan <Lopez Ribera - Last Filed: 07/17/22 16:15>
[2022-07-17] MEDS ORDERED: ONDANSETRON 4 MG/2 ML VIAL IV PRN (03:13)
[2022-07-17] MEDS ORDERED: Ringers Lactate 1,000 ML IV SCH (03:13)
[2022-07-17] MEDS ORDERED: IPRATROPIUM BROM 0.5MG/2.5ML NEB PRN (03:13)
[2022-07-17] MEDS ORDERED: ALBUTEROL 2.5 MG/3 ML NEB SOL NEB PRN (03:13)
[2022-07-17] MEDS ORDERED: ACETAMINOPHEN 500 MG TAB PO PRN (03:13)
[2022-07-17] MEDS ORDERED: Ringers Lactate 1,000 ML IV ONE (03:54)
[2022-07-17 04:50] LABS: Absolute Lymphocytes (CBC) 2.1 K/uL (0.7-4.9); Lymphocytes % 12.7 % (15.3-44.8); MCV 93.6 fL (80-100); MPV 7.7 fL (7.6-11.3); RBC Red Blood Cell Count 3.63 M/uL (3.86-4.86)
[2022-07-17 05:45] LABS: Albumin 2.2 g/dL (3.4-5.0); Bilirubin Total 1.1 mg/dL (0.2-1.0); Protein, Total 5.7 g/dL (6.4-8.2); Thyroid Stimulating Hormone 1.12 uIU/mL (0.358-3.740)
[2022-07-17 05:50] LABS: Potassium 4.2 mmol/L (3.5-5.1)
[2022-07-17] MEDS ORDERED: AZITHROMYCIN IV 500 MG in NA CHLORIDE 0.9% 250 ML IVPB SCH (09:00)
--- NOTE | 2022-07-17 09:50 | RAD REPORT ---
EXAM DESCRIPTION: RAD - Femur Left - 07/17/2022 1:40 am CLINICAL HISTORY: 67 years, Female, fall COMPARISON: None. FINDINGS: 2 X-ray views of the left femur (Frontal, lateral and oblique views) were performed. No acute bony injuries were demonstrated. There are no gross intraosseous lesions. No periosteal re action were seen. There are vascular ossifications of the femoral vessels. Incidentally is noted pr esence of contrast within the urinary bladder related to previous iodine study. There are very minima l degenerative changes left knee joint. IMPRESSION: No acute bony injuries were demonstrated. Electronically signed by: Duglas Potts MD 07/17/2022 1:50 AM GREENHOUSE WORKER Due to temporary technical issues with the PACS/Fluency reporting system, reports are being signed by the in house radiologists without review as a courtesy to insure prompt reporting. The interpreting radiologist is fully responsible for the content of the report.
[2022-07-17] MEDS: predniSONE 20 MG TAB PO SCH ×2 (10:46→16:48)
[2022-07-17] MEDS: CEFTRIAXONE 1,000 MG in NA CHLORIDE 0.9% 50 ML IVPB SCH ×3 (10:47→11:18)
[2022-07-17] MEDS: ENOXAPARIN 40 MG/0.4 ML SQ SCH (10:48)
--- NOTE | 2022-07-17 11:30 | RAD REPORT ---
EXAM DESCRIPTION: CT - Chest Abdomen Pelvis W Cont - 07/17/2022 6:32 am CLINICAL HISTORY: 67 years, Female, FALL DOWN STAIRS COMPARISON: 11/14/2020 TECHNIQUE: Contrast-enhanced images of the chest, abdomen and pelvis were performed utilizing 5 mm s lice thickness at 5 mm interval reconstruction from the lung apices to the ischial tuberosities after the administration of IV contrast. In addition multiplanar reformats in the coronal and sagittal plane were obtained and reviewed. This exam was performed according to our departmental dose-optimization protocol, which includes auto mated exposure control, adjustment of the mA and/or kV according to patient size and/or use of iterat collin reconstruction technique. FINDINGS: Chest: The lungs parenchyma demonstrate presence of nodular tree-in-bud distribution along the right apical segment upper lobe on image 11-16, also generated by nodularities identified within the lateral segment right lower lobe on axial image 27/79, lateral aspect posterior segment left low er lobe on axial image 24-30. Focal area of consolidation lateral aspect right middle lobe, findings correspond to infection/information/or pneumonia.. masses and/or nodules are identified. The trachea mainstem bronchus demonstrate to be normal. There is no significant pleural and/or perica rdial effusions. The thoracic aorta demonstrate to be within normal limits. The heart is not enlarged. There are no si gnificant coronary artery calcifications. The central pulmonary arteries demonstrate to be normal wit h no significant major filling defects that will suggest pulmonary embolus. There is no significant mediastinal and/or hilar lymphadenopathy. The axillary regions demonstrate to be clear. The bone windows demonstrate mild bony osteopenia. Visualized portions of the clavicle, scapula demon strate to be within normal limits with no evidence for acute bony injuries. Degenerative changes righ t glenohumeral joint. The thoracic spine demonstrate mild diffuse bony osteopenia. No significant com pression deformities. Spinous processes demonstrate to be unremarkable. Bilateral ribs demonstrate to unremarkable. No evidence for significant displace fractures. The sternum is normal. There is a status post metallic spring coils within the hiatal region suggesting most likely hernia r epair. Minimal residual aneurysm is demonstrated Abdomen and pelvis: The liver demonstrate decreased attenuation corresponding to fatty infiltration. There is status post cholecystectomy. The pancreas, spleen and adrenal glands demonstrate to be unrem arkable, no focal lesions are noted. There is no evidence for solid organ injury. The kidneys demonstrate normal uptake and excretion of contrast media. No evidence for nephrolithiasi s and/or hydronephrosis. There are upper mid lower pole bilateral simple renal cysts. No follow-up is recommended There is no evidence for extravasation of contrast. Grossly the unopacified stomach, small bowel and large bowel demonstrate to be within normal limits. There is no evidence for bowel dilatation/or free air. Minimal fluid-filled right site colon could correspond to a prominent area.. The appendix was not visualized. The urinary bladder demonstrate normal accumulation of contrast media. The uterus is unremarkable. There are no adnexal masses. The aorta demonstrate minimal atherosclerotic disease extending into t he aortic bifurcation. There is no retroperitoneal lymphadenopathy. There is no evidence for ascite s/or retroperitoneal hemorrhage. The lumbar spine demonstrate no evidence for compression deformities of the vertebral bodies. The tra nsverse processes, spinous processes, sacrum, sacroiliac joint demonstrate to be within normal limits . The superior and inferior pubic rami demonstrate to be intact. Bilateral hip joints and proximal po rtions of the femurs demonstrate to be unremarkable. IMPRESSION: Focal area of consolidation lateral aspect right middle lobe, findings correspond to inf ection/information/or pneumonia. Diffuse nodular tree-in-bud distribution within the right apical segment upper lobe, lateral segment right lower lobe, lateral aspect posterior segment left lower lobe, findings are suspicious for an in fectious or inflammatory process. Status post metallic spring coils within the hiatal region suggesting most likely hernia repair. Mini mal residual aneurysm is demonstrated. Fatty infiltration of the liver. Status post cholecystectomy. Bilateral simple renal cysts. No evidence for acute traumatic injury to the chest, abdomen, or pelvis. Electronically signed by: Duglas Potts MD 07/17/2022 12:14 AM PATENT CHEMIST Due to temporary technical issues with the PACS/Fluency reporting system, reports are being signed by the in house radiologists without review as a courtesy to insure prompt reporting. The interpreting radiologist is fully responsible for the content of the report.
--- NOTE | 2022-07-17 11:58 | P.CNS ---
Date of Consult: 07/17/22 Reason for Consult: Pneumonia Chief Complaint: Pneumonia fall and swelling of the right arm History of Present Illness: Patient is 67 years of age with asthma hypertension depression and she felt she had a bruise over the left also complaining of cough fever and chills for the past 4 days patient is compliant with her medication at home you have significant depression started complaining of swelling of her right arm Admitted with bilateral pneumonia Allergies aspirin Allergy (Intermediate, Verified 11/07/12 16:55) Anaphylaxis bacitracin [From Neosporin ([id number])] Allergy (Intermediate, Verified 11/07/12 16:55) aquino skin bacitracin zinc [From Neosporin ([id number])] Allergy (Intermediate, Verified 11/07/12 16:55) aquino skin diphenhydramine HCl [From Benadryl] Allergy (Intermediate, Verified 06/03/18 18:20) Hives neomycin sulfate [From Neosporin ([id number])] Allergy (Intermediate, Verified 11/07/12 16:55) aquino skin pentazocine lactate [From Talwin] Allergy (Intermediate, Verified 06/03/18 18:19) Itching polymyxin B [From Neosporin ([id number])] Allergy (Intermediate, Verified 11/07/12 16:55) aquino skin Neosporin ([id number]) Allergy (Uncoded 06/03/18 18:20) Itching NSAIDS Allergy (Uncoded 02/11/18 06:38) Unknown Home Medications: Albuterol Inhaler [Ventolin Inhaler*] 2 puff IN Q4H PRN 09/03/18 Albuterol Sulfate [Ventolin Hfa] 2 puff IN Q4H PRN 09/03/18 Venlafaxine HCl [Effexor XR] 1 tab PO DAILY 09/03/18 predniSONE [Deltasone*] 1 tab PO DAILY 09/03/18 Pantoprazole [Protonix Tab*] 40 mg PO ACB #30 tab 09/04/18 Alprazolam [Xanax] 2 mg PO DAILY 07/17/22 Dextroamphetamine/Amphetamine [Adderall 10 mg Tablet] 1 tab PO DAILY 07/17/22 Fluticasone/Umeclidin/Vilanter [Trelegy Ellipta 100-62.5-25] 1 puff PO BEDTIME 07/17/22 Lisinopril [Zestril] 20 mg PO DAILY 07/17/22 Venlafaxine HCl [Effexor XR] 1 tab PO DAILY 07/17/22 - Past Medical/Surgical History Diabetic: No -: Asthma -: Depression -: Osteoporosis -: GERD with hiatal hernia -: Obesity -: Hypertension -: ADHD -: -: Tubal ligation -: cholecystectomy -: cataract surgery -: rt shoulder sx x2 -: sx on left knee Psychosocial/ Personal History: Patient is . She has 1 child. She is retired. - Family History Mother Medical History: Heart disease, Hypertension, Diabetes Father Medical History: Heart disease, Hypertension, Lung disease, Cancer, Other (see notes) Notes: asbestosis - Social History Smoking Status: Never smoker Alcohol use: No CD- Drugs: No Caffeine use: Yes Place of Residence: Home Review of Systems General: Weakness Respiratory: Cough, Shortness of Breath Musculoskeletal: Other (Acute swelling of her right) Physical Examination Temp Pulse Resp BP Pulse Ox 100.5 F 102 H 18 125/58 L 94 07/17/22 08:00 07/17/22 08:00 07/17/22 08:00 07/17/22 08:00 07/17/22 08:00 General: Alert, In no apparent distress, Oriented x3 HEENT: Atraumatic Neck: Supple Respiratory: Clear to auscultation bilaterally, Diminished, Friction rub Cardiovascular: Normal pulses, Normal S1 S2 Gastrointestinal: Normal bowel sounds, Soft and benign Musculoskeletal: Other (Right arm is swollen) Integumentary: No breakdown, No significant lesion Neurological: Normal speech, Normal strength at 5/5 x4 extr Laboratory Data (last 24 hrs) 07/16/22 21:20: PT 11.9, INR 1.08, APTT 25.5 07/16/22 21:20: WBC 20.90 H*, Hgb 13.2, Hct 40.7, Plt Count 270 07/16/22 21:20: Sodium 137, Potassium 4.3, BUN 18, Creatinine 1.10 H, Glucose 104 - Problems (1) Pneumonia Current Visit: Yes Status: Acute Plan: Patient is 67 years of age with a history of asthma depression admitted with pneumonia is have a right middle lobe consolidation with some changes on the left side elevated white count hemodynamically stable also given some fever elevated white 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
[2022-07-17 12:35] LABS: Urine Bacteria None Seen /HPF (<20); Urine Bilirubin NEGATIVE (Negative); Urine Blood Trace (Negative); Urine Clarity Clear (Clear); Urine Color Light-Yellow (Yellow); Urine Glucose NEGATIVE (Negative); Urine Protein TRACE (Negative); Urine RBC <5 /HPF (None Seen); Urine Urobilinogen 1+ (Normal)
[2022-07-17] MEDS: levoFLOXacin 750 MG TAB PO SCH (12:55)
[2022-07-17] MEDS: VENLAFAXINE HCL XR 75 MG CAP PO SCH (13:38)
[2022-07-17] MEDS: ALPRAZOLAM 1 MG TABLET PO SCH (13:39)
[2022-07-17] MEDS: VENLAFAXINE HCL XR 37.5MG CAP PO SCH (13:39)
--- NOTE | 2022-07-17 13:51 | RAD REPORT ---
EXAM DESCRIPTION: US - UPPER EXTREMITY VENOUS UNILATE - 07/17/2022 1:29 pm CLINICAL HISTORY: Right arm pain and swelling COMPARISON: None. TECHNIQUE: Real-time sonographic evaluation of the right upper extremity deep venous systems was per formed. FINDINGS: Normal compressibility, flow augmentation, phasic flow and spontaneous flow are identified in the right upper extremity deep venous system. No intraluminal filling defects seen. Internal jugu lar and subclavian veins are normal as well. IMPRESSION: No DVT in the right upper extremity.
[2022-07-17] MEDS: Fluticasone/Umeclidin/Vilanter [Trelegy Ellipta 100-62.5-25] Blst.W.Dev PO SCH (21:00)
[2022-07-17] MEDS: HYDROCODONE/APAP 5/325 MG TAB PO PRN (22:14)
[2022-07-18 04:28] LABS: Hematocrit 35.3 % (36.0-45.0); Lymphocytes % 6.7 % (15.3-44.8); MCV 93.2 fL (80-100); MPV 7.8 fL (7.6-11.3); RBC Red Blood Cell Count 3.79 M/uL (3.86-4.86)
[2022-07-18 04:49] LABS: Albumin 2.3 g/dL (3.4-5.0); Bilirubin Total 0.5 mg/dL (0.2-1.0); Potassium 4.7 mmol/L (3.5-5.1); Protein, Total 6.4 g/dL (6.4-8.2)
[2022-07-18] MEDS: VENLAFAXINE HCL XR 75 MG CAP PO SCH (08:42)
[2022-07-18] MEDS: PANTOPRAZOLE 40MG TABLET PO SCH (08:42)
[2022-07-18] MEDS: predniSONE 20 MG TAB PO SCH ×2 (08:42→16:34)
[2022-07-18] MEDS: levoFLOXacin 750 MG TAB PO SCH (08:42)
[2022-07-18] MEDS: ALPRAZOLAM 1 MG TABLET PO SCH (08:43)
[2022-07-18] MEDS: ENOXAPARIN 40 MG/0.4 ML SQ SCH (08:43)
[2022-07-18] MEDS: VENLAFAXINE HCL XR 37.5MG CAP PO SCH (08:44)
[2022-07-18] MEDS ORDERED: AMPHETAMINE PO SCH (09:00)
[2022-07-18] MEDS ORDERED: DEXTROAMPHETAMINE PO SCH (09:00)
--- NOTE | 2022-07-18 11:03 | P.PN ---
Subjective Date of Service: 07/18/22 Chief Complaint: Pneumonia fall and swelling of the right arm Subjective: Improving (Patient is improving feeling weak shortness of breath has improved) Review of Systems General: Weakness Respiratory: Cough, Shortness of Breath Physical Examination - Vital Signs Temperature: 97.2 F Blood Pressure: 145/64 Pulse: 87 Respirations: 16 Pulse Ox (%): 96 - Physical Exam General: Alert, In no apparent distress, Oriented x3 Respiratory: Clear to auscultation bilaterally, Diminished Cardiovascular: No edema, Regular rate/rhythm Assessment And Plan - Current Problems (Diagnosis) (1) Pneumonia Current Visit: Yes Status: Acute Plan: Patient admitted with admitted with pneumonia is improving labs chemistries reviewed white count declining evidence of DVT in the right arm patient feeling weak ambulate does not take any long-acting bronchodilators at home trilogy bothers her throat we will try some breast rehab and provided with a sample oxygenation satisfactory ambulate possible discharge Qualifiers: Pneumonia type: due to unspecified organism Laterality: bilateral (2) Swelling of right upper extremity Current Visit: Yes Status: Acute Plan: Acute onset of swelling in the right arm with pitting edema rule out DVT Physician Review: Patient Assessed, Agree with Above Assessment and Plan
--- NOTE | 2022-07-18 14:22 | P.PN ---
Subjective Date of Service: 07/18/22 Chief Complaint: Pneumonia fall and swelling of the right arm No acute events overnight. She did well with PT. She reports shortness of breath is persistent, but improving. She denies any chest pain, palpitations, or orthopnea. Review of Systems 10-point ROS is otherwise unremarkable Respiratory: Cough, Shortness of Breath Physical Examination - Vital Signs Temperature: 97.7 F Blood Pressure: 118/58 Pulse: 87 Respirations: 16 Pulse Ox (%): 95 - Physical Exam General: Alert, In no apparent distress, Oriented x3 HEENT: Atraumatic, Mucous membr. moist/pink, EOMI, Sclerae nonicteric Neck: JVD not distended Respiratory: Diminished, Rhonchi/gurgles (scattered) Cardiovascular: No edema, Regular rate/rhythm, Normal S1 S2, No gallops, No rubs, No murmurs Gastrointestinal: Normal bowel sounds, Soft and benign, Non-distended, No tenderness, No rebound, No guarding Musculoskeletal: No clubbing Integumentary: No rashes Neurological: Normal speech, Cranial nerves 3-12 intact, Normal affect Assessment And Plan - Plan # Sepsis likely secondary to Multifocal Pneumonia She met sepsis criteria based on temperature > 100.9 F, HR > 90 bpm, RR > 20 breaths/min, and WBC > 12,000, and the suspected source is pneumonia. - Sepsis order set was initiated - Initial Lactate was 1.0 - Blood cultures drawn before antibiotics were given - Broad spectrum antibiotics started: Ceftriaxone + Azithromycin -> Levofloxacin - In regards to fluids: - 30 mL/kg of IV fluids was not administered given SBP > 90, MAP > 65, lactic acid < 4 # Acute Asthma Exacerbation - Pulmonary Medicine consulted and spoke with Dr. Li - recommendations appreciated - Steroids and bronchodilators per Pulm - Consulted Respiratory Therapy - Supplemental oxygen to maintain SpO2 > 92% - Assess inhaler technique one improved from asthma exacerbation # Traumatic Mechanical Ground-Level Fall complicated by Facial Contusion # Osteoporosis She states that she fell down the stairs when she missed a step walking out of the [place]. - CT head/cervical spine = "no acute intracranial or cervical spine findings." - CT chest/abdomen/pelvis = "focal area of consolidation lateral aspect right middle lobe, findings correspond to infection/information/or pneumonia. Diffuse nodular tree-in-bud distribution within the right apical segment upper lobe, lateral segment right lower lobe, lateral aspect posterior segment left lower lobe, findings are suspicious for an infectious or inflammatory process. Status post metallic spring coils within the hiatal region suggesting most likely hernia repair. Minimal residual aneurysm is demonstrated. Fatty infiltration of the liver. Status post cholecystectomy. Bilateral simple renal cysts. No evidence for acute traumatic injury to the chest, abdomen, or pelvis." - CT maxillofacial = "negative for facial bone fracture." - Consult PT - recommendations appreciated - Pain control # Hiatal Hernia complicated by Gastroesophageal Reflux Disease - Continue home pantoprazole # Anxiety # ADHD # Depression - Continue home venlafaxine, alprazolam, and dextroamphetamine # Hypertension - Home meds on hold given concern for sepsis # Fatty Liver # Bilateral Simple Renal Cysts - Noted on imaging, follow-up with PCP Lopez Ribera M.D.
[2022-07-18 14:34] VITALS: BMI 21.2
--- NOTE | 2022-07-18 17:26 | EKG ---
Test Date: 2022-07-17 Test Time: 00:10:41 Viticulture Teacher: YEHUDA MEASUREMENT RESULTS: Intervals: Rate: 104 NV: 140 QRSD: 68 QT: 336 QTc: 441 [place]: P: 76 NV: 140 QRS: 67 T: 37 INTERPRETIVE STATEMENTS: Sinus tachycardia Possible Left atrial enlargement Nonspecific T wave abnormality Abnormal ECG Compared to ECG 11/14/2020 10:05:43 Sinus rhythm no longer present Ventricular premature complex(es) no longer present T-wave abnormality still present Electronically Signed On 07-18-22 17:24:26 NETWORK SECURITY OFFICER by Khang Caldwell
[2022-07-18] MEDS: Fluticasone/Umeclidin/Vilanter [Trelegy Ellipta 100-62.5-25] Blst.W.Dev PO SCH (21:00)
[2022-07-18] MEDS: HYDROCODONE/APAP 5/325 MG TAB PO PRN (21:19)
[2022-07-18] MEDS: BENZONATATE 100 MG CAP PO PRN (21:19)
[2022-07-18] MEDS ORDERED: ALPRAZOLAM 1 MG TABLET PO ONE (21:21)
[2022-07-18] MEDS ORDERED: MELATONIN 5 MG TABLET PO PRN (23:43)
[2022-07-19] MEDS: BENZONATATE 100 MG CAP PO PRN (03:06)
[2022-07-19] MEDS: HYDROCODONE/APAP 5/325 MG TAB PO PRN (03:06)
[2022-07-19 04:27] LABS: Absolute Lymphocytes (CBC) 1.5 K/uL (0.7-4.9); Hematocrit 32.9 % (36.0-45.0); Lymphocytes % 10.6 % (15.3-44.8); MCV 93.3 fL (80-100); MPV 8.1 fL (7.6-11.3); RBC Red Blood Cell Count 3.53 M/uL (3.86-4.86)
[2022-07-19 04:45] LABS: Albumin 2.2 g/dL (3.4-5.0); Bilirubin Total 0.3 mg/dL (0.2-1.0); Potassium 4.4 mmol/L (3.5-5.1)
[2022-07-19] MEDS: predniSONE 20 MG TAB PO SCH (08:48)
[2022-07-19] MEDS: ALPRAZOLAM 1 MG TABLET PO SCH (08:48)
[2022-07-19] MEDS: PANTOPRAZOLE 40MG TABLET PO SCH (08:48)
[2022-07-19] MEDS: ENOXAPARIN 40 MG/0.4 ML SQ SCH (08:48)
[2022-07-19] MEDS: levoFLOXacin 750 MG TAB PO SCH (08:48)
[2022-07-19] MEDS: VENLAFAXINE HCL XR 75 MG CAP PO SCH (08:49)
[2022-07-19] MEDS ORDERED: VENLAFAXINE HCL XR 37.5MG CAP PO SCH (09:00)
--- NOTE | 2022-07-19 09:45 | P.PN ---
Subjective Date of Service: 07/19/22 Chief Complaint: COPD exacerbation Subjective: Improving (Patient is improving doing well feeling a little weak pain and swelling is decreased in the right) Review of Systems General: Weakness Respiratory: Shortness of Breath Physical Examination - Vital Signs Temperature: 97.7 F Blood Pressure: 134/61 Pulse: 82 Respirations: 16 Pulse Ox (%): 92 - Physical Exam General: Alert, Oriented x3 Respiratory: Clear to auscultation bilaterally, Diminished Cardiovascular: No edema, Regular rate/rhythm Assessment And Plan - Current Problems (Diagnosis) (1) Pneumonia Current Visit: Yes Status: Acute Plan: Doing better improving White count declining Qualifiers: Pneumonia type: due to unspecified organism Laterality: bilateral (2) Swelling of right upper extremity Current Visit: Yes Status: Acute Plan: Venous Doppler of upper arm negative for DVT (3) Asthma exacerbation Onset Date: 06/06/18 Current Visit: No Status: Acute Plan: Asthma exacerbation patient is improving I left her a sample of Breztri 2 puffs twice a day he is on prednisone 20 mg twice a day plan for discharge tomorrow on prednisone 10 mg twice a day in addition to Breztri vital signs are stable Qualifiers: Asthma severity: moderate Physician Review: Patient Assessed, Agree with Above Assessment and Plan
[2022-07-19 10:59] VITALS: O2SAT 95
[2022-07-19 11:41] VITALS: BP 146/66; TEMP 97.5
--- NOTE | 2022-07-19 12:02 | P.PN ---
Subjective Date of Service: 07/19/22 Chief Complaint: COPD exacerbation Physical Examination - Vital Signs Temperature: 97.5 F Blood Pressure: 146/66 Pulse: 81 Respirations: 16 Pulse Ox (%): 93
--- NOTE | 2022-07-19 12:41 | P.DS ---
Admission Date: 07/17/22 Discharge Date: 07/19/22 Discharge Condition: GOOD Reason for Admission: COPD exacerbation Consultations: 1. Pulmonary Medicine Hospital Course: DIAGNOSES: # Sepsis likely secondary to Multifocal Pneumonia # Acute Asthma Exacerbation # Traumatic Mechanical Ground-Level Fall complicated by Facial Contusion # Osteoporosis # Hiatal Hernia complicated by Gastroesophageal Reflux Disease # Anxiety # ADHD # Depression # Hypertension # Fatty Liver # Bilateral Simple Renal Cysts HOSPITAL COURSE: Ms. Irma Cain is a 67 year old female with a past medical history significant for asthma, anxiety, depression, hypertension, ADHD, and gastroesophageal reflux disease who was admitted to the [facility] on 07/17/2022 for shortness of breath and a mechanical ground-level fall. She was admitted to the Medicine service. Upon further evaluation, she was found to have sepsis secondary to multifocal pneumonia as well as an acute asthma exacerbation. She was started on IV antibiotics, prednisone, and bronchodilators. Pulmonary Medicine was consulted and she was evaluated by Dr. Li, who weaned her to PO medications. Over the course of her hospitalization, her symptoms improved significantly. Dr. Li has cleared her for discharge home with levofloxacin, prednisone, and outpatient follow-up. She was advised to have a repeat chest x-ray in 3-4 weeks to ensure resolution of her pneumonia. On 07/19/2022, she was seen on morning rounds and deemed medically stable for discharge. She was discharged with instructions to schedule follow-up appointments with her PCP (Dr. Norwood) and with Pulmonology (Dr. Li). She was provided prescriptions for levofloxacin, benzonatate, and prednisone. She was given the opportunity to ask questions and reported no further questions. Furthermore, all questions were answered to the best of my ability. A copy of this discharge summary will be sent to the above providers to facili lance continuity of care. Today, I personally spent 25 minutes on her case, of which greater than 50% of the time was spent in patient education, counseling, and coordination of care as described above. - Physical Exam General: Alert, In no apparent distress, Oriented x3 HEENT: Atraumatic, Sclerae nonicteric Neck: JVD not distended Respiratory: Diminished with faint rhonchi, No wheezes, No rales Cardiovascular: No edema, Regular rate/rhythm, Normal S1 S2, No gallops, No rubs, No murmurs Gastrointestinal: Normal bowel sounds, Soft and benign, Non-distended, No tenderness, No rebound, No guarding Musculoskeletal: No clubbing Integumentary: No rashes Neurological: Normal speech, Normal affect Vital Signs/Physical Exam: Temp Pulse Resp BP Pulse Ox 97.5 F 81 16 146/66 H 93 07/19/22 12:06 07/19/22 12:06 07/19/22 12:06 07/19/22 12:06 07/19/22 12:06 Laboratory Data at Discharge: WBC 13.70 K/uL (4.3-10.9) H 07/19/22 04:01 Hgb 10.9 g/dL (12.0-15.0) L 07/19/22 04:01 Hct 32.9 % (36.0-45.0) L 07/19/22 04:01 Plt Count 270 K/uL (152-406) 07/19/22 04:01 PT 11.9 SECONDS (9.5-12.5) 07/16/22 21:20 INR 1.08 07/16/22 21:20 APTT 25.5 SECONDS (24.3-36.9) 07/16/22 21:20 Sodium 140 mmol/L (136-145) 07/19/22 04:01 Potassium 4.4 mmol/L (3.5-5.1) 07/19/22 04:01 BUN 20 mg/dL (7-18) H 07/19/22 04:01 Creatinine 1.05 mg/dL (0.55-1.02) H 07/19/22 04:01 Glucose 122 mg/dL (74-106) H 07/19/22 04:01 Total Bilirubin 0.3 mg/dL (0.2-1.0) 07/19/22 04:01 AST 19 U/L (15-37) 07/19/22 04:01 ALT 51 U/L (13-56) 07/19/22 04:01 Alkaline Phosphatase 135 U/L (45-117) H 07/19/22 04:01 Home Medications: Albuterol Inhaler [Ventolin Inhaler*] 2 puff IN Q4H PRN 09/03/18 Albuterol Sulfate [Ventolin Hfa] 2 puff IN Q4H PRN 09/03/18 Venlafaxine HCl [Effexor XR] 1 tab PO DAILY 09/03/18 Pantoprazole [Protonix Tab*] 40 mg PO ACB #30 tab 09/04/18 Alprazolam [Xanax] 2 mg PO DAILY 07/17/22 Dextroamphetamine/Amphetamine [Adderall 10 mg Tablet] 1 tab PO DAILY 07/17/22 Fluticasone/Umeclidin/Vilanter [Trelegy Ellipta 100-62.5-25] 1 puff PO BEDTIME 07/17/22 Lisinopril [Zestril] 20 mg PO DAILY 07/17/22 Venlafaxine HCl [Effexor XR] 1 tab PO DAILY 07/17/22 Benzonatate [Tessalon Perle*] 100 mg PO TID PRN 7 Days #20 cap 07/19/22 levoFLOXacin [Levaquin*] 750 mg PO DAILY 7 Days #7 tab 07/19/22 predniSONE [Deltasone*] 10 mg PO BIDWM 10 Days #20 tab 07/19/22 New Medications: predniSONE [Deltasone*] 10 mg PO BIDWM 10 Days #20 tab levoFLOXacin [Levaquin*] 750 mg PO DAILY 7 Days #7 tab Benzonatate [Tessalon Perle*] 100 mg PO TID PRN 7 Days #20 cap PRN Reason: Cough Physician Discharge Instructions: 1. Please call and schedule a follow-up appointment with your PCP (Dr. Norwood) in 3-5 days - Please discuss the cyst noted on your kidneys to see if any additional tests are needed 2. Please call and schedule a follow-up appointment with your [facility] Molder (Dr. Li) in 3-5 days - Please schedule a follow-up chest x-ray in 3-4 weeks to make sure your pneumonia has fully healed Diet: Regular Activity: Ad ashia Followup: Quinten Li MD [ACTIVE - CAN ADMIT] - Shannan Norwood MD [OUTSIDE PHYSICIAN] - Time spent managing pt's care (in minutes): 25
[2022-07-19] MEDS ORDERED: predniSONE 10 MG TAB PO SCH (17:00)
== END 2022-07-19 13:32 | disposition home health service (06) ==
LOC: ER 19:45 → ERHOLD 07-17 01:30 → INTOOBSV 07-17 01:30 → ERHOLD 07-17 02:04 → 2ND 07-17 07:37 → 4TH 07-18 19:58
PROVIDERS: ADMIT Internal Medicine; ATTEND Internal Medicine
DX: A41.9 Sepsis, unspecified organism (principal); J18.9 Pneumonia, unspecified organism; J45.901 Unspecified asthma with (acute) exacerbation; S00.93XA Contusion of unspecified part of head, initial encounter; W10.9XXA Fall (on) (from) unspecified stairs and steps, initial encounter; Y93.9 Activity, unspecified; Y92.009 Unspecified place in unspecified non-institutional (private) residence as the place of occurrence of the external cause; M81.0 Age-related osteoporosis without current pathological fracture; K44.9 Diaphragmatic hernia without obstruction or gangrene; F41.9 Anxiety disorder, unspecified; F32.A Depression, unspecified; K76.0 Fatty (change of) liver, not elsewhere classified; F90.9 Attention-deficit hyperactivity disorder, unspecified type; N28.1 Cyst of kidney, acquired; R22.31 Localized swelling, mass and lump, right upper limb; Z20.822 Contact with and (suspected) exposure to COVID-19
CPT/HCPCS: 93005; 87040 ×2; 85025 ×4; 81001; 80048; 36415 ×2; 86900; 86850; 85610; 82565; 86901; 83605; 85730; 84443; 84439; 80053 ×3; 84145; 0240U; 70450; 72125; 71260; 70486; 76377; 74177; 73552; 93971; 97161; 99285; Q9967; J7614; J7512 ×5; J7644; J0456; J1650 ×3; J2270 ×2; J7120; J7050; J7040 ×3; J7030; J2405; G0378 ×4; 81003; 81015

== ENCOUNTER 2022-07-21 20:54 | Emergency (ER) | payer OTHER ==
--- OUTSIDE RECORDS SUMMARY | 2022-07-21 21:09 | XMS REPORT | Continuity of Care Document ---
:1955 Author Organization [facility] t Address [address] [place] [address] Care Team Providers Name Role Phone Cuba Gardiner MD Primary Care Physician Unavailable BOBBY SIMS Attending Clinician Unavailable CANDIDA BURGESS Attending Clinician Unavailable CUBA GARDINER Attending Clinician Unavailable Doctor Unassigned, [place] Attending Clinician Unavailable Sharla Asrhaf Attending Clinician SHARLA TYLER Attending Clinician Unavailable [...] Date Expiration Date S supa HUMANA CHOICE [id number] 2014 00:00:00 Problems Condition Condition Condition Status [...] presence for not not surgery specified specified [id number] Hiatal Hiatal Disease Active 2020-0 Overview: Univer s hernia hernia 3-02 Added ity of 00:00: automatic [place] 00 ally from Medical request Branch for surgery [id number] Anxiety Anxiety Disease Active Univers 8-22 ity [...] ccal ccal 00:00: [place] infection infection [address] 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 Iron Iron Disease Active 2015-07 Univers [...] Branch TALWIN DRUG Active Dizziness Univers COMPOUND - ity of 00:00: [place] 00 Medical Branch [...] Medical C enter Exposure to Not sure [facility] SARS-CoV-2 [place] Medical (event) Branch Alcohol intake 2019-03-06 2019-03-[address] [facility]:00:00 non-drinker of Medical Ce nter alcohol (finding) History SDOH 2019-01-18 2019-01-[address] [facility] Alcohol Frequency 00:00:00 00:00:00 [facility] Tobacco use and 2019-01-16 2019-01-[address] [facility] exposure 00:00:00 00:00:00 [facility] Sex Assigned At [address] [facility] 00:00:00 00:[facility]:00 [facility] Smoking Status Start Date Stop Date Source Never smoker [facility] Medical Branch Medications Ordered Filled Start Stop [...] or Shortness of Breath. losartan 50 Yes [id number] 50mg Take 1 Univers mg tablet 4-28 tablet by ity o f 00:00: mouth [place] 00 daily. Medical Branch losartan 50 0 Yes [id number] 50mg Take 1 Univers mg tablet 4-28 tablet by ity o f 00:00: mouth [place] 00 daily. Medical Branch losartan 50 0 Yes [id number] 50mg Take 1 Univers mg tablet 4-28 tablet by ity o f 00:00: mouth [place] 00 daily. Medical Branch losartan 50 0 Yes [id number] 50mg Take 1 Univers mg tablet 4-28 [...] it y of hr capsule 00:00: (two) [place] 00 times Medical daily. Branch zolpidem 10 2020-0 Yes 10mg Take 10 mg Univers mg tablet 4-08 by mouth ity of 00:00: at [place] bedtime. Medical Branch zolpidem 10 2020-0 Yes 10mg Take 10 mg Univers mg tablet 4-08 by mouth ity of 00:00: at [place] bedtime. Medical Branch zolpidem 10 2020-0 Yes 10mg Take 10 mg Univers mg tablet 4-08 by mouth ity of 00:00: at [place] [address] bedtime. Medical Branch zolpidem 10 2020-0 Yes 10mg Take 10 mg Univers mg tablet 4-08 by mouth ity of 00:00: at [place] [address] bedtime. Medical Branch ALPRAZolam 2020-0 2021- No .5mg Take 0.5 Un bogdan 0.5 mg 4-08 04-28 mg by ity of tablet 00:00: 00:00 mouth 2 [place] 00 :00 (two) Medical times [place] daily. ALPRAZolam 2020-0 2021- No .5mg Take 0.5 Un bogdan 0.5 mg 4-08 04-28 mg by ity of tablet 00:00: 00:00 mouth 2 [place] 00 :00 (two) Medical times [place] daily. atomoxetine 2020-0 Yes 40mg Take 40 mg Univers 40 mg 3-25 by mouth 2 ity of capsule 00:00: (two) [place] times Medical daily. Branch temazepam 2020-0 Yes 30mg Take 30 mg Un bogdan 30 mg 3-25 by mouth ity of capsule 00:00: at [place] [address] bedtime. Medical Branch atomoxetine 1-0 Yes 40mg Take 40 mg Univers 40 mg 3-25 by mouth 2 ity of capsule 00:00: (two) [place] times Medical daily. Branch temazepam 2020-0 Yes 30mg Take 30 mg Un bogdan 30 mg 3-25 by mouth ity of capsule 00:00: at [place] [address] bedtime. Medical Branch atomoxetine Yes 40mg Take 40 mg Univers 40 mg 3-25 by mouth 2 ity of capsule 00:00: (two) [place] 00 times Medical daily. Branch temazepam Yes 30mg Take 30 mg Un bogdan 30 mg 3-25 by mouth ity of capsule 00:00: at [place] [address] bedtime. Medical Branch atomoxetine Yes 40mg Take 40 mg Univers 40 mg 3-25 by mouth 2 ity of capsule 00:00: (two) [place] 00 times Medical daily. Branch temazepam Yes 30mg Take 30 mg Un bogdan 30 mg 3-25 by mouth ity of capsule 00:00: at [place] [address] bedtime. Medical Branch ARIPiprazol Yes TAKE 1 TO U nivers e 2 mg 3-11 2 TABLETS ity of tablet 00:00: BY MOUTH [place] EVERY Medical NIGHT AT [facility] ARIPiprazol 2020- Yes TAKE 1 TO U nivers e 2 mg 3-11 2 TABLETS ity of tablet 00:00: BY MOUTH [place] EVERY Medical NIGHT AT [facility] ARIPiprazol 2020-0 Yes TAKE 1 TO U nivers e 2 mg 3-11 2 TABLETS ity of tablet 00:00: BY MOUTH [place] [address] EVERY Medical NIGHT AT [facility] ARIPiprazol 2020-0 Yes TAKE 1 TO U nivers e 2 mg 3-11 2 TABLETS ity of tablet 00:00: BY [place] [id number] EVERY Medical NIGHT AT [facility] DALIRESP 2020-0 2021- No 1{tbl} Take 1 Univ ers 250 mcg Tab 3-11 04-28 tablet by it y of 00:00: 00:00 mouth [place] 00 :00 daily. Medical Branch DALIRESP 2020-0 2020- No 1{tbl} Take 1 Univ ers 250 mcg Tab 3-11 04-28 tablet by it y of 00:00: 00:00 mouth [place] 00 :00 daily. Medical Branch SERTraline 0 Yes 100mg Take 100 Un bogdan 100 mg 2-04 mg by ity of tablet 00:00: mouth at [place] [address] bedtime. Medical Branch SERTraline 2020-0 Yes 100mg Take 100 Un bogdan 100 mg 2-04 mg by ity of tablet 00:00: mouth at [place] 00 bedtime. Medical Branch SERTraline 2020-0 Yes 100mg Take 100 Un bogdan 100 mg 2-04 mg by ity of tablet 00:00: mouth at [place] 00 bedtime. Medical Branch SERTraline 2020-0 Yes 100mg Take 100 Un bogdan 100 mg 2-04 mg by ity of tablet 00:00: mouth at [place] 00 bedtime. Medical Branch ergocalcife 2020-0 2020- No [id number] Take Univers rol, 02-28 50,000 ity of vitamin d2, 00:00: 04:59 Units by [place] 2,500 unit 00 :00 mouth Medical Cap weekly for Branch 6 doses. ergocalcife 2020-0 2020- No [id number] Take Univers rol, 02-28 50,000 ity of vitamin d2, 00:00: 04:59 Units by [place] 2,500 unit 00 :00 mouth Medical Cap weekly for Branch 6 doses. ergocalcife 2019-0 2020- No [id number] Take [facility], 02-28 50,000 ity of vitamin [...] by mouth ity of capsule 01:02: daily. [place] [address] Medical Branch fluticasone 2020-0 Yes Inhale. Uni vers /umeclidin/ 7-31 ity of vilanter 01:02: [place] ([facility] Medical [facility] Branch INHALE) albuterol 2020-0 Yes 2{puff} Inhale 2 U nivers (VENTOLIN) 7-31 Puffs ity of 90 01:02: every 6 [place] mcg/actuati 13 (six) Medical on inhaler hours as Branc h needed for Wheezing or Shortness of Breath. omeprazole 2020-0 Yes 40mg Take 40 mg U nivers 40 mg 7-31 by mouth ity of capsule 01:02: daily. [address] Branch fluticasone 2020-0 Yes Inhale. Uni vers /umeclidin/ 7-31 ity of vilanter 01:02: [place] ([place] [address] Medical ELLIPTA Branch INHALE) albuterol 2020-0 Yes 2{puff} Inhale 2 U nivers (VENTOLIN) 7-31 Puffs ity of 90 01:02: every 6 [place] mcg/actuati 13 (six) Medical on inhaler hours as Branc h needed for Wheezing or Shortness of Breath. omeprazole 2020-0 Yes 40mg Take 40 mg U nivers 40 mg 7-31 by mouth ity of capsule 01:02: daily. [address] Branch fluticasone 2020-0 Yes Inhale. Uni vers /umeclidin/ 7-31 ity of vilanter 01:02: [place] ([address] Branch [address]) albuterol 2020-0 Yes 2{puff} Inhale 2 U nivers (VENTOLIN) 7-31 Puffs ity of 90 01:02: every 6 [place] mcg/actuati (six) Medical on inhaler hours as Branc h needed for Wheezing or Shortness of Breath. omeprazole 2020-0 Yes 40mg Take 40 mg U nivers 40 mg 7-31 by mouth ity of capsule 01:02: daily. [address] Branch fluticasone 2020-0 Yes Inhale. Uni vers /umeclidin/ 7-31 ity of vilanter 01:02: [place] ([address] Branch [address]) omeprazole 2020-0 Yes 40mg Take 40 mg U nivers 40 mg 7-31 by mouth ity of capsule 01:02: daily. [address] Branch fluticasone 2020-0 Yes Inhale. Uni vers /umeclidin/ 7-31 ity of vilanter 01:02: [place] ([address] Branch INH[address]) omeprazole 2020-0 Yes 40mg Take 40 mg U nivers 40 mg 7-31 by mouth ity of capsule 01:02: daily. [address] Branch fluticasone 2020-0 Yes Inhale. Uni vers /umeclidin/ 7-31 ity of vilanter 01:02: [place] ([address] Branch INH[address]) omeprazole 2020-0 Yes 40mg Take 40 mg U nivers 40 mg 7-31 by mouth ity of capsule 01:02: daily. [address] fluticasone 2020-0 Yes Inhale. Uni vers /umeclidin/ 7- ity of vilanter 01:02: [place] ([address] Branch INHALE) omeprazole 2020-0 Yes 40mg Take 40 mg U nivers 40 mg 7-31 by mouth ity of capsule 01:02: daily. [address] fluticasone 2020-0 Yes Inhale. Uni vers /umeclidin/ - ity of vilanter 01:02: [place] ([address] Branch INH[address]) carvediloL 2020-0 2020- No [id number] 12.5mg Take 1 Univers 12.5 mg 7- 08-31 tablet by ity of tablet 00:00: 04:59 mouth 2 [place] 00 :00 (two) [facility] times [place] daily with meals for 30 days. carvediloL 2020-0 2020- No [id number] 12.5mg Take 1 Univers 12.5 mg 7- 08-31 tablet by ity of tablet 00:00: 04:59 mouth 2 [place] 00 :00 (two) Medical times [place] daily with meals for 30 days. predniSONE 2020-0 Yes 10mg 10 mg, Unive rs (DELTASONE) 7-30 Oral, ity of tablet 10 22:45: DAILY, [place] mg 00 First dose Medical on [facility] Branch 02/22/20 at 1745, Until Discontinu ed, Routine ipratropium 2020-0 Yes 3mL 3 mL, Unive rs -albuterol 7-30 Inhalation ity of (DUONEB) 21:00: , QID, [place] 0.5 mg-3 00 First dose Medic al mg(2.5 mg on [facility] base)/3 mL 02/22/20 at nebulizer 1600, solution 3 Until mL Discontinu ed, Routine ergocalcife 2020-0 Yes [id number] 50,000 Un bogdan rol 7-30 Units, ity of (vitamin 19:30: Oral, [place] d2) 00 QWEEKLY, Medical (CALCIFEROL First dose Br anch ) capsule on Maranda 50,000 02/22/20 at Units 1430, Until Discontinu ed, Routine loperamide 2020-0 Yes 2mg 2 mg, Univer s (IMODIUM 7-30 Oral, ity of A-D) 19:04: Q4HPRN, [place] capsule 2 12 Starting Medica l mg [facility] Branch 02/22/20 at 1404, Until Discontinu [...] First dose Medic al NaCl 0.9% on [facility] Branch (NS) 100 mL 02/22/20 at [...] it y of meterol 04:15: , Q12H, [place] (ADVAIR) 00 First dose Medic al 250-50 on Wed Branch mcg/dose 02/21/20 at inhalation 2315, disk 1 Puff Until Discontinu ed, Routine
Use approved by (Faculty and pager): ADC PROVIDER ALPRAZolam 2020-0 Yes .5mg 0.5 mg, Univ ers (XANAX) 02-21 Oral, ity of tablet 0.5 04:00: BIDPRN, [place] mg 00 Starting Medical [facility] Branch 02/21/20 at 2300, Until Discontinu ed, [...] TIDPRN, [place] 33 :27 Starting Medical [facility] Branch 02/21/20 at 1938, Until Wed02/21/20 at 2254, Routine, anxiety loperamide 2019- 2020- No [id number] 2mg Take 1 Univers 2 mg - 08-10 capsule by ity of capsule 00:00: 04:59 mouth [place] 00 :00 every 4 Medical (four) Branch hours as needed for Diarrhea for up to 10 days. loperamide 2019-0 2020- No [id number] 2mg Take 1 Univers 2 mg -30 08-10 capsule by ity of capsule 00:00: 04:59 mouth [place] 00 :00 every 4 Medical (four) Branch hours as needed for Diarrhea for up to 10 days. ALPRAZolam 2019-0 2020- No [id number] .5mg Take 1 Univers 0.5 mg - 08-05 tablet by ity of tablet 00:00: 04:59 mouth 3 [place] 00 :00 (three) Medical times Branch daily as needed (anxiety) for up to 5 days. ALPRAZolam 2020- No [id number] .5mg Take 1 Univers 0.5 mg 02-21 0805 tablet by ity of tablet 00:00: 04:59 mouth 3 [place] 00 :00 (three) Medical times [place] daily as needed (anxiety) for up to 5 days. ondansetron 2019- Yes 4mg 4 mg, Slow Univers (ZOFRAN 02-20 IV Push, ity of (PF)) 23:23: Q6HPRN, [place] injection 4 08 Starting Medi feliciano mg [...] 02-20 Oral, ity of (TYLENOL) 23:22: Q6HPRN, [place] tablet 650 56 Starting Medic al mg Wed02/21/20 at 1822, Until Discontinu ed, Routine, Pain (scale 1-3) cefTRIAXone 2019- No 1000mg 1,000 mg, Univers (ROCEPHIN) 02-20 IV ity of 1,000 mg in 16:00: 03:51 [place], [place] NaCl 0.9% 00 :59 Q12H ABX, Medic al (NS) 50 mL First dose Bra [facility] MINI-BAG on Wed02/21/20 at 1100, Until Discontinu ed, 50 mL
R dee for Anti-Infec tive: Empiric Therapy for Suspected Infection< br>Empiric Therapy Site: Respirator y
Durat ion of therapy: 72 hours NaCl 0.9% 2020- No 1000mL at 999 Uni vers (NS) bolus 02-20 mL/hr, ity of infusion 16:00: 16:00 1,000 mL, [place] 1,000 mL 00 :00 IV Medical Piggyback, [place] ONCE, 1 dose, 02/21/20 at 1100, STAT doxycycline 2020-0 2020- No 100mg 100 mg, U nivers hyclate 02-14 Oral, ity of (Vibramycin 01:45: 00:41 ONCE, 1 [place] ) capsule 00 :00 dose, Wed Medic al 100 mg 02/14/20 at [place] 204, SHANE
Re ason for Anti-Infec tive: Documented Infection< br>Documen leann Infection Site: Respirator y
Durat ion of Therapy: 7 days ondansetron 2019-0 2020- No 4mg 4 mg, Slow Univers (ZOFRAN 02-14 IV Push, ity of (PF)) 00:45: 23:43 ONCE, 1 [place] injection 4 00 :00 dose, Wed Med ical mg 02/14/20 at [place] 194, SHANE acetaminoph 2019- 2020- No 650mg [...] d 0 mL 00 :00 02/14/20 at [facility] 1900, [place] Routine iohexol 2019-0 2020- No 120mL 120 mL, Unive rs (OMNIPAQUE 02-13 Intravenou it y of 350 23:45: 23:30 s, ONCE, 1 [place] BULK-150 00 :00 dose, Wed Medica l mL) 02/14/20 at [place] injection 1845, 120 mL Routine NaCl 0.9% [...] by mouth ity of capsule 19:27: daily. [place] [address] Medical Branch fluticasone 2020-0 Yes Inhale. Uni vers /umeclidin/ 02-13 ity of vilanter 19:27: [place] ([place] [address] Medical ELLIPTA Branch INHALE) omeprazole 2020-0 Yes 40mg Take 40 mg U nivers 40 mg 7-22 by mouth ity of capsule 19:27: daily. [address] Branch fluticasone 2020-0 Yes Inhale. Uni vers /umeclidin/ 02-13 ity of vilanter 19:27: [place] ([place] [address] Medical ELLIPTA Branch INHALE) omeprazole 2020-0 Yes 40mg Take 40 mg U nivers 40 mg 7-22 by mouth ity of capsule 19:27: daily. [address] Branch fluticasone 2020-0 Yes Inhale. Uni vers /umeclidin/ 02-13 ity of vilanter 19:27: [place] ([place] [address] Medical ELLIPTA Branch INHALE) omeprazole 2020-0 Yes 40mg Take 40 mg U nivers 40 mg 7-22 by mouth ity of capsule 19:27: daily. [address] Branch fluticasone 2020-0 Yes Inhale. Uni vers /umeclidin/ 02-13 ity of vilanter 19:27: [place] ([place] [address] Medical ELLIPTA Branch INHALE) omeprazole 2020-0 Yes 40mg Take 40 mg U nivers 40 mg 7-22 by mouth ity of capsule 19:27: daily. [address] Branch fluticasone 2020-0 Yes Inhale. Uni vers /umeclidin/ 02-13 ity of vilanter 19:27: [place] ([place] [address] Medical ELLIPTA Branch INHALE) omeprazole 2020-0 Yes 40mg Take 40 mg U nivers 40 mg 7-22 by mouth ity of capsule 19:27: daily. [address] Branch fluticasone 2020-0 Yes Inhale. Uni vers /umeclidin/ 7-22 ity of vilanter 19:27: [place] ([address] INHALE) omeprazole 2020-0 Yes 40mg Take 40 mg U nivers 40 mg - by mouth ity of capsule 19:27: daily. [address] fluticasone 2020-0 Yes Inhale. Uni vers /umeclidin/ 02-13 ity of vilanter 19:27: [place] ([address] INHALE) doxycycline 2019-0 2020- No [id number] 100mg Take 1 Univers hyclate 100 7- 07-30 capsule by i ty of mg capsule 00:00: 04:59 mouth 2 [place] 00 :00 (two) Medical times Branch daily for 7 days. doxycycline 2020-0 2020- No [id number] 100mg Take 1 Univers hyclate 100 7- 07-30 capsule by i ty of mg capsule 00:00: 04:59 mouth 2 [place] 00 :00 (two) Medical times Branch daily for 7 days. doxycycline 2020-0 2020- No [id number] 100mg Take 1 Univers hyclate 100 - 07-30 capsule by i ty of mg capsule 00:00: 04:59 mouth 2 [place] 00 :00 (two) Medical times Branch daily for 7 days. doxycycline 2020-0 2020- No [id number] 100mg Take 1 Univers hyclate 100 - 07-30 capsule by i ty of mg capsule 00:00: 04:59 mouth 2 [place] 00 :00 (two) Medical times Branch daily for 7 days. doxycycline 2020-0 2020- No [id number] 100mg Take 1 Univers hyclate 100 02-13 07-29 capsule by i ty of mg capsule 00:00: 00:00 mouth 2 [place] 00 :00 (two) Medical times Branch daily for 7 days. morpHINE 2019-0 2020- No 4mg 4 mg, Slow Un bogdan injection 4 01-02-10 IV Push, ity of mg 20:45: 19:33 ONCE, 1 [place] 00 :00 dose, Wed Medical 01/03/20 at [...] at Branch 1315, SHANE ondansetron 2020-0 Yes [id number] 4mg Take 1 Univers 4 mg 6-10 tablet by ity of disintegrat 00:00: mouth [place] ing tablet 00 every 4 Medica l (four) Branch hours as needed for Nausea and Vomiting (N/V). ondansetron 2020-0 Yes [id number] 4mg Take 1 Univers 4 mg 6-10 tablet by ity of disintegrat 00:00: mouth [place] ing tablet 00 every 4 Medica l (four) Branch hours as needed for Nausea and Vomiting (N/V). ondansetron 2020-0 Yes [id number] 4mg Take 1 Univers 4 mg 6-10 tablet by ity of disintegrat 00:00: mouth [place] ing tablet 00 every 4 Medica l (four) Branch hours as needed for Nausea and Vomiting (N/V). ondansetron 2020-0 Yes [id number] 4mg Take 1 Univers 4 mg 6-10 tablet by ity of disintegrat 00:00: mouth [place] ing tablet 00 every 4 Medica l (four) Branch hours as needed for Nausea and Vomiting (N/V). ondansetron 2020-0 Yes [id number] 4mg Take 1 Univers 4 mg 6-10 tablet by ity of disintegrat 00:00: mouth [place] ing tablet 00 every 4 Medica l (four) Branch hours as needed for Nausea and Vomiting (N/V). ondansetron 2020-0 Yes [id number] 4mg Take 1 Univers 4 mg 6-10 tablet by ity of disintegrat 00:00: mouth [place] ing tablet 00 every 4 Medica l (four) Branch hours as needed for Nausea and Vomiting (N/V). ondansetron 2020-0 Yes [id number] 4mg Take 1 Univers 4 mg 6-10 tablet by ity of disintegrat 00:00: mouth [place] ing tablet 00 every 4 Medica l (four) Branch hours as needed for Nausea and Vomiting (N/V). ondansetron 2020-0 Yes [id number] 4mg Take 1 Univers 4 mg 6-10 tablet by ity of disintegrat 00:00: mouth [place] ing tablet 00 every 4 Medica l (four) Branch hours as needed for Nausea and Vomiting (N/V). ondansetron 2020-0 Yes [id number] 4mg Take 1 Univers 4 mg 6-10 tablet by ity of disintegrat 00:00: mouth [place] ing tablet 00 every 4 Medica l (four) Branch hours as needed for Nausea and Vomiting (N/V). ondansetron 2020-0 Yes [id number] 4mg Take 1 Univers 4 mg 6-10 tablet by ity of disintegrat 00:00: mouth [place] ing tablet 00 every 4 Medica l (four) Branch hours as needed for Nausea and Vomiting (N/V). ondansetron 2020-0 Yes [id number] 4mg Take 1 Univers 4 mg 6-10 tablet by ity of disintegrat 00:00: mouth [place] ing tablet 00 every 4 Medica l (four) Branch hours as needed for Nausea and Vomiting (N/V). ondansetron 2020-0 Yes [id number] 4mg Take 1 Univers 4 mg 6-10 tablet by ity of disintegrat 00:00: mouth [place] ing tablet 00 every 4 Medica l (four) Branch hours as needed for Nausea and Vomiting (N/V). ondansetron 2020-0 Yes [id number] 4mg Take 1 Univers 4 mg 6-10 tablet by ity of disintegrat 00:00: mouth [place] ing tablet 00 every 4 Medica l (four) Branch hours as needed for Nausea and Vomiting (N/V). ondansetron 2020-0 Yes [id number] 4mg Take 1 Univers 4 mg 6-10 tablet by ity of disintegrat 00:00: mouth [place] ing tablet 00 every 4 Medica l (four) Branch hours as needed for Nausea and Vomiting (N/V). ondansetron 2020-0 Yes [id number] 4mg Take 1 Univers 4 mg 6-10 tablet by ity of disintegrat 00:00: mouth [place] ing tablet 00 every 4 Medica l (four) Branch hours as needed for Nausea and Vomiting (N/V). ondansetron 2020-0 Yes [id number] 4mg Take 1 Univers 4 mg 6-10 tablet by ity of disintegrat 00:00: mouth [place] ing tablet 00 every 4 Medica l (four) Branch hours as needed for Nausea and Vomiting (N/V). ondansetron 2020-0 Yes [id number] 4mg Take 1 Univers 4 mg 6-10 tablet by ity of disintegrat 00:00: mouth [place] ing tablet 00 every 4 Medica l (four) Branch hours as needed for Nausea and Vomiting (N/V). ondansetron 2020-0 Yes [id number] 4mg Take 1 Univers 4 mg 6-10 tablet by ity of disintegrat 00:00: mouth [place] ing tablet 00 every 4 Medica l (four) Branch hours as needed for Nausea and Vomiting (N/V). ondansetron 2020-0 Yes [id number] 4mg Take 1 Univers 4 mg 6-10 [...] by mouth ity of capsule 20:24: daily. [address] fluticasone 2020-0 Yes Inhale. Uni vers /umeclidin/ 5-15 ity of vilanter 20:24: [place] ([address] ELLIPTA Branch INHALE) albuterol 2020-0 Yes [...] by mouth ity of capsule 20:24: daily. [address] fluticasone 2020-0 Yes Inhale. Uni vers /umeclidin/ 5-15 ity of vilanter 20:24: [place] ([facility] 14 [facility] ELLIPTA Branch INHALE) albuterol 2020-0 Yes 2{puff} [...] by mouth ity of capsule 20:24: daily. [address] fluticasone 2020-0 Yes Inhale. Uni vers /umeclidin/ 5-15 ity of vilanter 20:24: [place] ([address] ELLIPTA Branch INHALE) albuterol 2020-0 Yes [...] by mouth ity of capsule 20:24: daily. [address] fluticasone 2020-0 Yes Inhale. Uni vers /umeclidin/ 5-15 ity of vilanter 20:24: [place] ([address] Branch INHALE) albuterol 2020-0 Yes 2{puff} [...] mouth ity of capsule 20:24: daily. [address] Branch fluticasone 2020-0 Yes Inhale. Uni vers /umeclidin/ 5-15 ity of vilanter 20:24: [place] ([facility] 14 Medical ELLIPTA Branch INHALE) albuterol 2020-0 [...] by mouth ity of capsule 20:24: daily. [address] fluticasone 2020-0 Yes Inhale. Uni vers /umeclidin/ 5-15 ity of vilanter 20:24: [place] ([address] Branch INHALE) albuterol 2020-0 Yes 2{puff} [...] by mouth ity of capsule 20:24: daily. [address] fluticasone 2020-0 Yes Inhale. Uni vers /umeclidin/ 5-15 ity of vilanter 20:24: [place] ([address] ELLIPTA Branch INHALE) albuterol 2020-0 Yes [...] by mouth ity of capsule 20:24: daily. [address] fluticasone 2020-0 Yes Inhale. Uni vers /umeclidin/ 5-15 ity of vilanter 20:24: [place] ([address] Branch INHALE) albuterol 2020-0 Yes 2{puff} [...] by mouth ity of capsule 20:24: daily. [address] fluticasone 2020-0 Yes Inhale. Uni vers /umeclidin/ 5-15 ity of vilanter 20:24: [place] ([address] Branch INHALE) albuterol 2020-0 Yes 2{puff} [...] by mouth ity of capsule 20:24: daily. [place] 14 Medical Branch fluticasone 2020-0 Yes Inhale. Uni vers /umeclidin/ 5-15 ity of vilanter 20:24: [place] (TRELE[address] 14 Medical ELLIPTA Branch INHALE) albuterol [...] 0745, 50 piggyback mL simethicone 2020-0 Yes [id number] 80mg Take 1 Univers 80 mg 5-15 tablet by ity of chewable 00:00: mouth [place] tablet 00 after Medical meals and Branch at bedtime. HYDROcodone 2020-0 Yes [id number] 7.5mg Take 15 mL Univers -acetaminop 5-15 by mouth ity of hen 7.5-325 00:00: every 4 [place] mg/15 mL 00 (four) Medical solution hours as Branch needed for Pain (scale 4-6) or Pain (scale 7-10). proMETHazin 2020-0 Yes [id number] 12.5mg Take 1 Univers e 12.5 mg 5-15 tablet by ity o f tablet 00:00: mouth [place] 00 every 6 Medical (six) Branch hours as needed for Nausea and Vomiting (N/V) or N/V alternatin g with Ondansetro n. simethicone 2020-0 Yes [id number] 80mg Take 1 Univers 80 mg 5-15 tablet by ity of chewable 00:00: mouth [place] tablet 00 after Medical meals and Branch at bedtime. HYDROcodone 2020-0 Yes [id number] 7.5mg Take 15 mL Univers -acetaminop 5-15 by mouth ity of hen 7.5-325 00:00: every 4 [place] mg/15 mL 00 (four) Medical solution hours as Branch needed for Pain (scale 4-6) or Pain (scale 7-10). proMETHazin 2020-0 Yes [id number] 12.5mg Take 1 Univers e 12.5 mg 5-15 tablet by ity o f tablet 00:00: mouth [place] 00 every 6 Medical (six) Branch hours as needed for Nausea and Vomiting (N/V) or N/V alternatin g with Ondansetro n. simethicone 2020-0 Yes [id number] 80mg Take 1 Univers 80 mg 5-15 tablet by ity of chewable 00:00: mouth [place] tablet 00 after Medical meals and Branch at bedtime. HYDROcodone 2020-0 Yes [id number] 7.5mg Take 15 mL Univers -acetaminop 5-15 by mouth ity of hen 7.5-325 00:00: every 4 [place] as mg/15 mL 00 (four) Medical solution hours as Branch needed for Pain (scale 4-6) or Pain (scale 7-10). proMETHazin 2020-0 Yes [id number] 12.5mg Take 1 [facility] e 12.5 mg 5-15 tablet by ity o f tablet 00:00: mouth [place] 00 every 6 Medical (six) Branch hours as needed for Nausea and Vomiting (N/V) or N/V alternatin g with Ondansetro n. simethicone 2020-0 Yes [id number] 80mg Take 1 [facility] 80 mg 5-15 tablet by ity of chewable 00:00: mouth [place] tablet 00 after Medical meals and Branch at bedtime. HYDROcodone 2020-0 Yes [id number] 7.5mg Take 15 mL [facility] -acetaminop 5-15 by mouth ity of hen 7.5-325 00:00: every 4 [place] as mg/15 mL 00 (four) Medical solution hours as Branch needed for Pain (scale 4-6) or Pain (scale 7-10). proMETHazin 2020-0 Yes [id number] 12.5mg Take 1 [facility] e 12.5 mg 5-15 tablet by ity o f tablet 00:00: mouth [place] 00 every 6 Medical (six) Branch hours as needed for Nausea and Vomiting (N/V) or N/V alternatin g with Ondansetro n. simethicone 2020-0 Yes [id number] 80mg Take 1 [facility] 80 mg 5-15 tablet by ity of chewable 00:00: mouth [place] tablet 00 after Medical meals and Branch at bedtime. HYDROcodone 2020-0 Yes [id number] 7.5mg Take 15 mL [facility] -acetaminop 5-15 by mouth ity of hen 7.5-325 00:00: every 4 [place] as mg/15 mL 00 (four) Medical solution hours as Branch needed for Pain (scale 4-6) or Pain (scale 7-10). proMETHazin 2020-0 Yes [id number] 12.5mg Take 1 [facility] e 12.5 mg 5-15 tablet by ity o f tablet 00:00: mouth [place] 00 every 6 Medical (six) Branch hours as needed for Nausea and Vomiting (N/V) or N/V alternatin g with Ondansetro n. simethicone 2020-0 Yes [id number] 80mg Take 1 [facility] 80 mg 5-15 tablet by ity of chewable 00:00: mouth [place] tablet 00 after Medical meals and Branch at bedtime. HYDROcodone 2020-0 Yes [id number] 7.5mg Take 15 mL [facility] -acetaminop 5-15 by mouth ity of hen 7.5-325 00:00: every 4 [place] as mg/15 mL 00 (four) Medical solution hours as Branch needed for Pain (scale 4-6) or Pain (scale 7-10). proMETHazin 2020-0 Yes [id number] 12.5mg Take 1 [facility] e 12.5 mg 5-15 tablet by ity o f tablet 00:00: mouth [place] 00 every 6 Medical (six) Branch hours as needed for Nausea and Vomiting (N/V) or N/V alternatin g with Ondansetro n. simethicone 2020-0 Yes [id number] 80mg Take 1 [facility] 80 mg 5-15 tablet by ity of chewable 00:00: mouth [place] tablet 00 after Medical meals and Branch at bedtime. HYDROcodone 2020-0 Yes [id number] 7.5mg Take 15 mL [facility] -acetaminop 5-15 by mouth ity of hen 7.5-325 00:00: every 4 [place] as mg/15 mL 00 (four) Medical solution hours as Branch needed for Pain (scale 4-6) or Pain (scale 7-10). proMETHazin 2020-0 Yes [id number] 12.5mg Take 1 [facility] e 12.5 mg 5-15 tablet by ity o f tablet 00:00: mouth [place] 00 every 6 Medical (six) Branch hours as needed for Nausea and Vomiting (N/V) or N/V alternatin g with Ondansetro n. simethicone 2020-0 Yes [id number] 80mg Take 1 [facility] 80 mg 5-15 tablet by ity of chewable 00:00: mouth [place] tablet 00 after Medical meals and Branch at bedtime. HYDROcodone 2020-0 Yes [id number] 7.5mg Take 15 mL [facility] -acetaminop 5-15 by mouth ity of hen 7.5-325 00:00: every 4 [place] as mg/15 mL 00 (four) Medical solution hours as Branch needed for Pain (scale 4-6) or Pain (scale 7-10). proMETHazin 2020-0 Yes [id number] 12.5mg Take 1 [facility] e 12.5 mg 5-15 tablet by ity o f tablet 00:00: mouth [place] 00 every 6 Medical (six) Branch hours as needed for Nausea and Vomiting (N/V) or N/V alternatin g with Ondansetro n. simethicone 2020-0 Yes [id number] 80mg Take 1 [facility] 80 mg 5-15 tablet by ity of chewable 00:00: mouth [place] tablet 00 after Medical meals and Branch at bedtime. HYDROcodone 2020-0 Yes [id number] 7.5mg Take 15 mL [facility] -acetaminop 5-15 by mouth ity of hen 7.5-325 00:00: every 4 [place] as mg/15 mL 00 (four) Medical solution hours as Branch needed for Pain (scale 4-6) or Pain (scale 7-10). proMETHazin 2020-0 Yes [id number] 12.5mg Take 1 [facility] e 12.5 mg 5-15 tablet by ity o f tablet 00:00: mouth [place] 00 every 6 Medical (six) Branch hours as needed for Nausea and Vomiting (N/V) or N/V alternatin g with Ondansetro n. simethicone 2020-0 Yes [id number] 80mg Take 1 [facility] 80 mg 5-15 tablet by ity of chewable 00:00: mouth [place] tablet 00 after Medical meals and Branch at bedtime. HYDROcodone 2020-0 Yes [id number] 7.5mg Take 15 mL [facility] -acetaminop 5-15 by mouth ity of hen 7.5-325 00:00: every 4 [place] [facility] mg/15 mL 00 (four) Medical solution hours as Branch needed for Pain (scale 4-6) or Pain (scale 7-10). proMETHazin 2020-0 Yes [id number] 12.5mg Take 1 [facility] e 12.5 mg 5-15 tablet by ity o f tablet 00:00: mouth [place] 00 every 6 Medical (six) Branch hours as needed for Nausea and Vomiting (N/V) or N/V alternatin g with Ondansetro n. simethicone 2020-0 Yes [id number] 80mg Take 1 [facility] 80 mg 5-15 tablet by ity of chewable 00:00: mouth [place] tablet 00 after Medical meals and Branch at bedtime. HYDROcodone 2020-0 Yes [id number] 7.5mg Take 15 mL [facility] -acetaminop 5-15 by mouth ity of hen 7.5-325 00:00: every 4 [place] as mg/15 mL 00 (four) Medical solution hours as Branch needed for Pain (scale 4-6) or Pain (scale 7-10). proMETHazin 2020-0 Yes [id number] 12.5mg Take 1 [facility] e 12.5 mg 5-15 tablet by ity o f tablet 00:00: mouth [place] 00 every 6 Medical (six) Branch hours as needed for Nausea and Vomiting (N/V) or N/V alternatin g with Ondansetro n. simethicone 2020-0 Yes [id number] 80mg Take 1 [facility] 80 mg 5-15 tablet by ity of chewable 00:00: mouth [place] tablet 00 after Medical meals and Branch at bedtime. HYDROcodone 2020-0 Yes [id number] 7.5mg Take 15 mL [facility] -acetaminop 5-15 by mouth ity of hen 7.5-325 00:00: every 4 [place] as mg/15 mL 00 (four) Medical solution hours as Branch needed for Pain (scale 4-6) or Pain (scale 7-10). proMETHazin 2020-0 Yes [id number] 12.5mg Take 1 [facility] e 12.5 mg 5-15 tablet by ity o f tablet 00:00: mouth [place] 00 every 6 Medical (six) Branch hours as needed for Nausea and Vomiting (N/V) or N/V alternatin g with Ondansetro n. simethicone 2020-0 Yes [id number] 80mg Take 1 [facility] 80 mg 5-15 tablet by ity of chewable 00:00: mouth [place] tablet 00 after Medical meals and Branch at bedtime. HYDROcodone 2020-0 Yes [id number] 7.5mg Take 15 mL [facility] -acetaminop 5-15 by mouth ity of hen 7.5-325 00:00: every 4 [place] as mg/15 mL 00 (four) Medical solution hours as Branch needed for Pain (scale 4-6) or Pain (scale 7-10). proMETHazin 2020-0 Yes [id number] 12.5mg Take 1 [facility] e 12.5 mg 5-15 tablet by ity o f tablet 00:00: mouth [place] 00 every 6 Medical (six) Branch hours as needed for Nausea and Vomiting (N/V) or N/V alternatin g with Ondansetro n. simethicone 2020-0 Yes [id number] 80mg Take 1 [facility] 80 mg 5-15 tablet by ity of chewable 00:00: mouth [place] tablet 00 after Medical meals and Branch at bedtime. HYDROcodone 2020-0 Yes [id number] 7.5mg Take 15 mL [facility] -acetaminop 5-15 by mouth ity of hen 7.5-325 00:00: every 4 [place] as mg/15 mL 00 (four) Medical solution hours as Branch needed for Pain (scale 4-6) or Pain (scale 7-10). proMETHazin 2020-0 Yes [id number] 12.5mg Take 1 [facility] e 12.5 mg 5-15 tablet by ity o f tablet 00:00: mouth [place] 00 every 6 Medical (six) Branch hours as needed for Nausea and Vomiting (N/V) or N/V alternatin g with Ondansetro n. simethicone 2020-0 Yes [id number] 80mg Take 1 [facility] 80 mg 5-15 tablet by ity of chewable 00:00: mouth [place] tablet 00 after Medical meals and Branch at bedtime. HYDROcodone 2020-0 Yes [id number] 7.5mg Take 15 mL [facility] -acetaminop 5-15 by mouth ity of hen 7.5-325 00:00: every 4 [place] as mg/15 mL 00 (four) Medical solution hours as Branch needed for Pain (scale 4-6) or Pain (scale 7-10). proMETHazin 2020-0 Yes [id number] 12.5mg Take 1 [facility] e 12.5 mg 5-15 tablet by ity o f tablet 00:00: mouth [place] 00 every 6 Medical (six) Branch hours as needed for Nausea and Vomiting (N/V) or N/V alternatin g with Ondansetro n. simethicone 2020-0 Yes [id number] 80mg Take 1 [facility] 80 mg 5-15 tablet by ity of chewable 00:00: mouth [place] tablet 00 after Medical meals and Branch at bedtime. HYDROcodone 2020-0 Yes [id number] 7.5mg Take 15 mL [facility] -acetaminop 5-15 by mouth ity of hen 7.5-325 00:00: every 4 [place] as mg/15 mL 00 (four) Medical solution hours as Branch needed for Pain (scale 4-6) or Pain (scale 7-10). proMETHazin 2020-0 Yes [id number] 12.5mg Take 1 [facility] e 12.5 mg 5-15 tablet by ity o f tablet 00:00: mouth [place] 00 every 6 Medical (six) Branch hours as needed for Nausea and Vomiting (N/V) or N/V alternatin g with Ondansetro n. simethicone 2020-0 Yes [id number] 80mg Take 1 [facility] 80 mg 5-15 tablet by ity of chewable 00:00: mouth [place] tablet 00 after Medical meals and Branch at bedtime. HYDROcodone 2020-0 Yes [id number] 7.5mg Take 15 mL [facility] -acetaminop 5-15 by mouth ity of hen 7.5-325 00:00: every 4 [place] as mg/15 mL 00 (four) Medical solution hours as Branch needed for Pain (scale 4-6) or Pain (scale 7-10). proMETHazin 2020-0 Yes [id number] 12.5mg Take 1 [facility] e 12.5 mg 5-15 tablet by ity o f tablet 00:00: mouth [place] 00 every 6 Medical (six) Branch hours as needed for Nausea and Vomiting (N/V) or N/V alternatin g with Ondansetro n. simethicone 2020-0 Yes [id number] 80mg Take 1 [facility] 80 mg 5-15 tablet by ity of chewable 00:00: mouth [place] tablet 00 after Medical meals and Branch at bedtime. HYDROcodone 2020-0 Yes [id number] 7.5mg Take 15 mL [facility] -acetaminop 5-15 by mouth ity of hen 7.5-325 00:00: every 4 [place] as mg/15 mL 00 (four) Medical solution hours as Branch needed for Pain (scale 4-6) or Pain (scale 7-10). proMETHazin 2020-0 Yes [id number] 12.5mg Take 1 [facility] e 12.5 mg 5-15 tablet by ity o f tablet 00:00: mouth [place] 00 every 6 Medical (six) Branch hours as needed for Nausea and Vomiting (N/V) or N/V alternatin g with Ondansetro n. simethicone 2020-0 Yes [id number] 80mg Take 1 [facility] 80 mg 5-15 tablet by ity of chewable 00:00: mouth [place] tablet 00 after Medical meals and Branch at bedtime. HYDROcodone 2020-0 Yes [id number] 7.5mg Take 15 mL [facility] -acetaminop 5-15 by mouth ity of hen 7.5-325 00:00: every 4 [place] as mg/15 mL 00 (four) Medical solution hours as Branch needed for Pain (scale 4-6) or Pain (scale 7-10). proMETHazin 2020-0 Yes [id number] 12.5mg Take 1 [facility] e 12.5 mg 5-15 tablet by ity o f tablet 00:00: mouth [place] 00 every 6 Medical (six) Branch hours as needed for Nausea and Vomiting (N/V) or N/V alternatin g with Ondansetro n. simethicone 2020-0 Yes [id number] 80mg Take 1 [facility] 80 mg 5-15 tablet by ity of chewable 00:00: mouth [place] tablet 00 after Medical meals and Branch at bedtime. HYDROcodone 2020-0 Yes [id number] 7.5mg Take 15 mL [facility] -acetaminop 5-15 by mouth ity of hen 7.5-325 00:00: every 4 [place] as mg/15 mL 00 (four) Medical solution hours as Branch needed for Pain (scale 4-6) or Pain (scale 7-10). proMETHazin 2020-0 Yes [id number] 12.5mg Take 1 [facility] e 12.5 mg 5-15 tablet by ity o f tablet 00:00: mouth [place] 00 every 6 Medical (six) Branch hours as needed for Nausea and Vomiting (N/V) or N/V alternatin g with Ondansetro n. simethicone 2020-0 Yes [id number] 80mg Take 1 [facility] 80 mg 5-15 tablet by ity of chewable 00:00: mouth [place] tablet 00 after Medical meals and Branch at bedtime. HYDROcodone 2020-0 Yes [id number] 7.5mg Take 15 mL [facility] -acetaminop 5-15 by mouth ity of hen 7.5-325 00:00: every 4 [place] as mg/15 mL 00 (four) Medical solution hours as Branch needed for Pain (scale 4-6) or Pain (scale 7-10). proMETHazin 2020-0 Yes [id number] 12.5mg Take 1 [facility] e 12.5 mg 5-15 tablet by ity o f tablet 00:00: mouth [place] 00 every 6 Medical (six) Branch hours as needed for Nausea and Vomiting (N/V) or N/V alternatin g with Ondansetro n. simethicone 2020-0 Yes [id number] 80mg Take 1 [facility] 80 mg 5-15 tablet by ity of chewable 00:00: mouth [place] tablet 00 after Medical meals and Branch at bedtime. HYDROcodone 2020-0 Yes [id number] 7.5mg Take 15 mL [facility] -acetaminop 5-15 by mouth ity of hen 7.5-325 00:00: every 4 [place] as mg/15 mL 00 (four) Medical solution hours as Branch needed for Pain (scale 4-6) or Pain (scale 7-10). proMETHazin 2020-0 Yes [id number] 12.5mg Take 1 [facility] e 12.5 mg 5-15 tablet by ity o f tablet 00:00: mouth [place] 00 every 6 Medical (six) Branch hours as needed for Nausea and Vomiting (N/V) or N/V alternatin g with Ondansetro n. simethicone 2020-0 Yes [id number] 80mg Take 1 [facility] 80 mg 5-15 tablet by ity of chewable 00:00: mouth [place] tablet 00 after Medical meals and Branch at bedtime. HYDROcodone 2020-0 Yes [id number] 7.5mg Take 15 mL [facility] -acetaminop 5-15 by mouth ity of hen 7.5-325 00:00: every 4 [place] as mg/15 mL 00 (four) Medical solution hours as Branch needed for Pain (scale 4-6) or Pain (scale 7-10). proMETHazin 2020-0 Yes [id number] 12.5mg Take 1 [facility] e 12.5 mg 5-15 tablet by ity o f tablet 00:00: mouth [place] 00 every 6 Medical (six) Branch hours as needed for Nausea and Vomiting (N/V) or N/V alternatin g with Ondansetro n. simethicone 2020-0 Yes [id number] 80mg Take 1 [facility] 80 mg 5-15 tablet by ity of chewable 00:00: mouth [place] tablet 00 after Medical meals and Branch at bedtime. HYDROcodone 2020-0 Yes [id number] 7.5mg Take 15 mL [facility] -acetaminop 5-15 by mouth ity of hen 7.5-325 00:00: every 4 [place] as mg/15 mL 00 (four) Medical solution hours as Branch needed for Pain (scale 4-6) or Pain (scale 7-10). proMETHazin 2020-0 Yes [id number] 12.5mg Take 1 [facility] e 12.5 mg 5-15 tablet by ity o f tablet 00:00: mouth [place] 00 every 6 Medical (six) Branch hours as needed for Nausea and Vomiting (N/V) or N/V alternatin g with Ondansetro n. simethicone 2020-0 Yes [id number] 80mg Take 1 [facility] 80 mg 5-15 tablet by ity of chewable 00:00: mouth [place] tablet 00 after Medical meals and Branch at bedtime. HYDROcodone 2020-0 Yes [id number] 7.5mg Take 15 mL [facility] -acetaminop 5-15 by mouth ity of hen 7.5-325 00:00: every 4 [place] as mg/15 mL 00 (four) Medical solution hours as Branch needed for Pain (scale 4-6) or Pain (scale 7-10). proMETHazin 2020-0 Yes [id number] 12.5mg Take 1 [facility] e 12.5 mg [...] Breath proMETHazin 2020-0 Yes 12.5mg 12.5 mg, [facility] e 12-06 Oral, ity of (PHENERGAN) 12:44: Q4HPRN, [place] as tablet 12.5 01 Starting Medi feliciano mg [facility] 12/07/19 at 0744, Until Discontinu ed, Routine, Nausea and Vomiting (N/V), N/V alternatin g with Ondansetro n albuterol 2020-0 Yes 2.5mg 2.5 mg, Univ ers (PROVENTIL) 12-05 Inhalation it y of 2.5 mg /3 22:45: , Q4HPRN, [place] as mL (0.083 00 Starting Medica l %) [facility] nebulizer 12/06/19 at solution 1745, 2.5 mg Until Discontinu ed, Routine, Shortness of Breath, Wheezing ALPRAZolam 2019-0 Yes .5mg 0.5 mg, [facility] ers (XANAX) 12-05 Oral, ity of tablet 0.5 19:33: BIDPRN, [place] mg 05 Starting Medical [facility] 12/06/19 at 1433, Until Discontinu ed, Routine, anxiety acetaminoph 2019-0 Yes 650mg 650 mg, Un bogdan en 12-05 Oral, ity of (TYLENOL) 19:25: Q4HPRN, [place] 160 mg/5 mL 38 Starting Medi feliciano liquid 650 [facility] 12/06/19 at 1425, Until Discontinu ed, Routine, [...] 5-12 IV Push, ity of mg 21:29: Q4HPRNClimax, [place] 52 Starting Medical Tue Branch 12/05/19 [...] (scale 4-6) phenol 2020-0 Yes 1{spray 1 [place], Univ ers (SORE -12 } Oral, PRN, ity of THROAT 21:07: Starting [place] (PHENOL)) 21 Tue Medical 1.4 % spray 12/05/19 at Br anch bottle 1 1607, [place] Until Discontinu ed, Routine, Sore throat barium [...] 2019-0 2020- No .2mg 0.2 mg, Un bodgan ne 12-04 05-12 Slow IV ity of (DILAUDID) 15:10: 16:25 Push, [place] injection 21 :41 Q5MIN PRN, Medi feliciano 0.2 mg 10 doses, Branch Starting [facility] 12/05/19 at 1010, Until Wed12/05/19 at 1125, Routine, Pain (scale 7-10), PACU
Us e approved by (Faculty): PACU USE -ANESTHESI A SERVICE-HY DROMORPHON E INJECTIONS FENTanyl PF 2019-0 2020- No 25ug 25 mcg, Un bogdan (SUBLIMAZE 12-04-12 Slow IV ity o f (PF)) 15:10: 16:25 Push, [place] injection 21 :41 Q5MIN PRN, Medi feliciano 25 mcg 4 doses, Branch Starting [facility] 12/05/19 at 1010, Until Wed12/05/19 at 1125, [...] by mouth ity of capsule 20:55: daily. [address] omeprazole 2020-0 Yes 40mg Take 40 mg U nivers 40 mg 4-28 by mouth ity of capsule 20:55: daily. [address] omeprazole 2020-0 Yes 40mg Take 40 mg U nivers 40 mg 4-28 by mouth ity of capsule 20:55: daily. [address] omeprazole 2020-0 Yes 40mg Take 40 mg U nivers 40 mg 4-28 by mouth ity of capsule 20:55: daily. [address] cefdinir 2020-0 2020- No 300mg Take 300 Uni vers 300 mg 4-28 04-28 mg by ity of capsule 20:52: 00:00 mouth [place] 58 :00 every 24 Medical (twenty-fo Branch ur) hours. carvedilol 2020-0 Yes 3.125mg Take 3.125 Univers 3.125 mg 3-04 mg by ity of tablet 18:12: mouth 2 [place] [address] ([facility]) Medical times [place] daily with meals. dextroamphe 2020-0 Yes 30mg [...] mg by ity of capsule 18:12: mouth [place] 47 every 24 Medical (twenty-fo Branch ur) hours. carvedilol 2020-0 Yes 3.125mg Take 3.125 Univers 3.125 mg 3-04 mg by ity of tablet 18:12: mouth 2 [place] 47 (two) Medical times Branch daily with [...] by ity of tablet 18:12: mouth 2 [place] 47 (two) Medical times Branch daily with [...] by ity of tablet 18:12: mouth 2 [place] 47 (two) Medical times Branch daily with [...] /umeclidin/ 2-26 ity of vilanter 20:33: [place] [facility] ELLIPTA Branch INHALE) [...] vers /umeclidin/ 2-26 ity of vilanter 20:33: [place] ([facility] Medical ELLIPTA Branch INHALE) [...] vers /umeclidin/ 2-26 ity of vilanter 20:33: [place] ([place] [address] Medical ELLIPTA Branch INHALE) albuterol 2020-0 Yes 2{puff} Inhale 2 U nivers (VENTOLIN) 2-26 Puffs ity of 90 20:33: every 6 [place] mcg/actuati 11 (six) Medical on inhaler hours as Branc h needed for Wheezing or Shortness of Breath. fluticasone 2020-0 Yes Inhale. Uni vers /umeclidin/ 2-26 ity of vilanter 20:33: [place] ([place] [address] Medical ELLIPTA Branch INHALE) albuterol 2020-0 Yes 2{puff} Inhale 2 U nivers (VENTOLIN) 2-26 Puffs ity of 90 20:33: every 6 [place] mcg/actuati 11 (six) Medical on inhaler hours as Branc h needed for Wheezing or Shortness of Breath. fluticasone 2020-0 Yes Inhale. Uni vers /umeclidin/ 2-26 ity of vilanter 20:33: [place] ([place] [address] Medical ELLIPTA Branch INHALE) albuterol 2020-0 Yes 2{puff} Inhale 2 U nivers (VENTOLIN) 2-26 Puffs ity of 90 20:33: every 6 [place] mcg/actuati 11 (six) Medical on inhaler hours as Branc h needed for Wheezing or Shortness of Breath. fluticasone 2020-0 Yes Inhale. Uni vers /umeclidin/ 2-26 ity of vilanter 20:33: [place] ([facility] Medical ELLIPTA Branch INHALE) albuterol 2020-0 Yes 2{puff} Inhale 2 U nivers (VENTOLIN) 2-26 Puffs ity of 90 20:33: every 6 [place] mcg/actuati 11 (six) Medical on inhaler hours as Branc h needed for Wheezing or Shortness of Breath. fluticasone 2020-0 Yes Inhale. Uni vers /umeclidin/ 2-26 ity of vilanter 20:33: [place] [facility] albuterol 2020-0 Yes 2{puff} Inhale 2 U nivers (VENTOLIN) 2-26 Puffs ity of 90 20:33: every 6 [place] mcg/actuati 11 (six) Medical on inhaler hours as Branc h needed for Wheezing or Shortness of Breath. fluticasone 2020-0 Yes Inhale. Uni vers /umeclidin/ 2-26 ity of vilanter 20:33: [place] ([place] [address] Medical ELLIPTA Branch INHALE) albuterol 2020-0 Yes 2{puff} Inhale 2 U nivers (VENTOLIN) 2-26 Puffs ity of 90 20:33: every 6 [place] mcg/actuati 11 (six) Medical on inhaler hours as Branc h needed for Wheezing or Shortness of Breath. fluticasone 2020-0 Yes Inhale. Uni vers /umeclidin/ 2-26 ity of vilanter 20:33: [place] ([facility] 11 Medical ELLIPTA Branch INHALE) albuterol 2020-0 Yes 2{puff} Inhale 2 U nivers (VENTOLIN) 2-26 Puffs ity of 90 20:33: every 6 [place] mcg/actuati 11 (six) Medical on inhaler hours as Branc h needed for Wheezing or Shortness of Breath. fluticasone 2020-0 Yes Inhale. Uni vers /umeclidin/ 2-26 ity of vilanter 20:33: [place] ([facility] Medical ELLIPTA Branch INHALE) albuterol 2020-0 Yes 2{puff} Inhale 2 U nivers (VENTOLIN) 2-26 Puffs ity of 90 20:33: every 6 [place] mcg/actuati 11 (six) Medical on inhaler hours as Branc h needed for Wheezing or Shortness of Breath. fluticasone 2020-0 Yes Inhale. Uni vers /umeclidin/ 2- ity of vilanter 20:33: [place] ([facility] 11 Medical ELLIPTA Branch INHALE) fluticasone 2020-0 Yes Inhale. Uni vers /umeclidin/ 07-27 ity of vilanter 19:44: [place] ([facility] 39 Medical ELLIPTA Branch INHALE) fluticasone 2020-0 Yes Inhale. Uni vers /umeclidin/ 07-27 ity of vilanter 19:44: [place] ([facility] 39 Medical ELLIPTA Branch INHALE) fluticasone 2020-0 Yes Inhale. Uni vers /umeclidin/ 07-27 ity of vilanter 19:44: [place] ([facility] 39 Medical ELLIPTA Branch INHALE) fluticasone 2020-0 Yes Inhale. Uni vers /umeclidin/ 07-27 ity of vilanter 19:44: [place] ([facility] 39 Medical ELLIPTA Branch INHALE) fluticasone 2020-0 Yes Inhale. Uni vers /umeclidin/ 07-27 ity of vilanter 19:44: [place] ([facility] 39 Medical ELLIPTA Branch INHALE) predniSONE 2018-07 Yes [id number] 10mg Take 1 Univers 10 mg 0-11 tablet by ity of tablet 00:00: mouth [place] 00 daily. Medical Take with Branch food. predniSONE 2018-07 Yes [id number] 10mg Take 1 Univers 10 mg 0-11 tablet by ity of tablet 00:00: mouth [place] 00 daily. Medical Take with Branch food. predniSONE 2018-07 Yes [id number] 10mg Take 1 Univers 10 mg 0-11 tablet by ity of tablet 00:00: mouth [place] 00 daily. Medical Take with Branch food. predniSONE 2018-07 Yes [id number] 10mg Take 1 Univers 10 mg 0-11 tablet by ity of tablet 00:00: mouth [place] 00 daily. Medical Take with Branch food. predniSONE 2018-07 Yes [id number] 10mg Take 1 Univers 10 mg 0-11 tablet by ity of tablet 00:00: mouth [place] 00 daily. Medical Take with Branch food. predniSONE 2018- Yes [id number] 10mg Take 1 [facility] 10 mg 0-11 tablet by ity of tablet 00:00: mouth [place] 00 daily. Medical Take with Branch food. predniSONE 2018- Yes [id number] 10mg Take 1 Univers 10 mg 0-11 tablet by ity of tablet 00:00: mouth [place] 00 daily. Medical Take with Branch food. predniSONE 2018- Yes [id number] 10mg Take 1 [facility] 10 mg 0-11 tablet by ity of tablet 00:00: mouth [place] 00 daily. Medical Take with Branch food. predniSONE 2018- Yes [id number] 10mg Take 1 [facility] 10 mg 0-11 tablet by ity of tablet 00:00: mouth [place] 00 daily. Medical Take with Branch food. predniSONE 2018- Yes [id number] 10mg Take 1 [facility] 10 mg 0-11 tablet by ity of tablet 00:00: mouth [place] 00 daily. Medical Take with Branch food. predniSONE 2018- Yes [id number] 10mg Take 1 [facility] 10 mg 0-11 tablet by ity of tablet 00:00: mouth [place] 00 daily. Medical Take with Branch food. predniSONE 2018- Yes [id number] 10mg Take 1 [facility] 10 mg 0-11 tablet by ity of tablet 00:00: mouth [place] 00 daily. Medical Take with Branch food. predniSONE 2018- Yes [id number] 10mg Take 1 [facility] 10 mg 0-11 tablet by ity of tablet 00:00: mouth [place] 00 daily. Medical Take with Branch food. predniSONE 2018- Yes [id number] 10mg Take 1 [facility] 10 mg 0-11 tablet by ity of tablet 00:00: mouth [place] 00 daily. Medical Take with Branch food. predniSONE 2018- Yes [id number] 10mg Take 1 [facility] 10 mg 0-11 tablet by ity of tablet 00:00: mouth [place] 00 daily. Medical Take with Branch food. predniSONE 2018- Yes [id number] 10mg Take 1 [facility] 10 mg 0-11 tablet by ity of tablet 00:00: mouth [place] 00 daily. Medical Take with Branch food. predniSONE 2018- Yes [id number] 10mg Take 1 [facility] 10 mg 0-11 tablet by ity of tablet 00:00: mouth [place] 00 daily. Medical Take with Branch food. predniSONE 2018- Yes [id number] 10mg Take 1 [facility] 10 mg 0-11 tablet by ity of tablet 00:00: mouth [place] 00 daily. Medical Take with Branch food. predniSONE 2018- Yes [id number] 10mg Take 1 [facility] 10 mg 0-11 tablet by ity of tablet 00:00: mouth [place] 00 daily. Medical Take with Branch food. predniSONE 2018- Yes [id number] 10mg Take 1 Univers 10 mg 0-11 tablet by ity of tablet 00:00: mouth [place] 00 daily. Medical Take with Branch food. predniSONE 2018- Yes [id number] 10mg Take 1 [facility] 10 [facility]-11 tablet by ity of tablet 00:00: mouth [place] 00 daily. Medical Take with Branch food. predniSONE 2018- Yes [id number] 10mg Take 1 [facility] 10 mg 0-11 tablet by ity of tablet 00:00: mouth [place] 00 daily. Medical Take with Branch food. predniSONE 2018- Yes [id number] 10mg Take 1 [facility] 10 mg 0-11 tablet by ity of tablet 00:00: mouth [place] 00 daily. Medical Take with Branch food. predniSONE 2018- Yes [id number] 10mg Take 1 [facility] 10 mg 0-11 tablet by ity of tablet 00:00: mouth [place] 00 daily. Medical Take with Branch food. predniSONE 2018- Yes [id number] 10mg Take 1 [facility] 10 mg 0-11 tablet by ity of tablet 00:00: mouth [place] 00 daily. Medical Take with Branch food. predniSONE 2018- Yes [id number] 10mg Take 1 [facility] 10 mg 0-11 tablet by ity of tablet 00:00: mouth [place] 00 daily. Medical Take with Branch food. predniSONE 2018- Yes [id number] 10mg Take 1 [facility] 10 mg 0-11 tablet by ity of tablet 00:00: mouth [place] 00 daily. Medical Take with Branch food. predniSONE 2019- Yes [id number] 10mg Take 1 [facility] 10 mg 0-11 tablet by ity of tablet 00:00: mouth [place] 00 daily. Medical Take with Branch food. predniSONE 2018- Yes [id number] 10mg Take 1 [facility] 10 mg 0-11 tablet by ity of tablet 00:00: mouth [place] 00 daily. Medical Take with Branch food. predniSONE 2018- Yes [id number] 10mg Take 1 [facility] 10 mg 0-11 tablet by ity of tablet 00:00: mouth [place] 00 daily. Medical Take with Branch food. predniSONE 2018- Yes [id number] 10mg Take 1 [facility] 10 mg 0-11 tablet by ity of tablet 00:00: mouth [place] 00 daily. Medical Take with Branch food. predniSONE 2018- Yes [id number] 10mg Take 1 [facility] 10 mg 0-11 tablet by ity of tablet 00:00: mouth [place] 00 daily. Medical Take with Branch food. predniSONE 2018- Yes [id number] 10mg Take 1 [facility] 10 mg 0-11 tablet by ity of tablet 00:00: mouth [place] 00 daily. Medical Take with Branch food. predniSONE 2018- Yes [id number] 10mg Take 1 [facility] 10 mg 0-11 tablet by ity of tablet 00:00: mouth [place] 00 daily. Medical Take with Branch food. predniSONE 2018- Yes [id number] 10mg Take 1 [facility] 10 mg 0-11 tablet by ity of tablet 00:00: mouth [place] 00 daily. Medical Take with Branch food. predniSONE 2018- Yes [id number] 10mg Take 1 [facility] 10 mg 0-11 tablet by ity of tablet 00:00: mouth [place] 00 daily. Medical Take with Branch food. predniSONE 2018- Yes [id number] 10mg Take 1 [facility] 10 mg 0-11 tablet by ity of tablet 00:00: mouth [place] 00 daily. Medical Take with Branch food. predniSONE 2018- Yes [id number] 10mg Take 1 [facility] 10 mg 0-11 tablet by ity of tablet 00:00: mouth [place] 00 daily. Medical Take with Branch food. predniSONE 2018- Yes [id number] 10mg Take 1 [facility] 10 mg 0-11 tablet by ity of tablet 00:00: mouth [place] 00 daily. Medical Take with Branch food. predniSONE 2018- Yes [id number] 10mg Take 1 [facility] 10 mg 0-11 tablet by ity of tablet 00:00: mouth [place] 00 daily. Medical Take with Branch food. predniSONE 2018- Yes [id number] 10mg Take 1 [facility] 10 mg 0-11 tablet by ity of tablet 00:00: mouth [place] 00 daily. Medical Take with Branch food. predniSONE 2018- Yes [id number] 10mg Take 1 [facility] 10 mg 0-11 tablet by ity of tablet 00:00: mouth [place] 00 daily. Medical Take with Branch food. predniSONE 2018- Yes [id number] 10mg Take 1 [facility] 10 mg 0-11 tablet by ity of tablet 00:00: mouth daily. Medical Take with Branch food. predniSONE 2019- Yes [id number] 10mg Take 1 [facility] 10 mg 0-11 tablet by ity of tablet 00:00: mouth daily. Medical Take with Branch food. predniSONE 2018- Yes [id number] 10mg Take 1 [facility] 10 mg 0-11 tablet by ity of tablet 00:00: mouth daily. Medical Take with Branch food. omeprazole 2019-0 Yes 40mg Take 40 mg [facility] 40 mg 8-22 by mouth ity of capsule 21:10: daily. [facility] omeprazole 2019-0 Yes 40mg Take 40 mg [facility] n[facility] 40 mg 8-22 by mouth ity of capsule 21:10: daily. [facility] omeprazole 2019-0 Yes 40mg Take 40 mg [facility] 40 mg 8-22 by mouth ity of capsule 21:10: daily. [facility] omeprazole 2019-0 Yes 40mg Take 40 mg [facility] 40 mg 8-22 by mouth ity of capsule 21:10: daily. [facility] omeprazole 2019-0 Yes 40mg Take 40 mg U n[facility] 40 mg 8-22 by mouth ity of capsule 21:10: daily. [facility] omeprazole 2019-0 Yes 40mg Take 40 mg U nivers 40 mg 8-22 by mouth ity of capsule 21:10: daily. [facility] omeprazole 2019-0 Yes 40mg Take 40 mg U n[facility] 40 mg 8-22 by mouth ity of capsule 21:10: daily. [facility] omeprazole 2019-0 Yes 40mg Take 40 mg [facility] 40 mg 8-22 by mouth ity of capsule 21:10: daily. [facility] omeprazole 2019-0 Yes 40mg Take 40 mg [facility] 40 mg 8-22 by mouth ity of capsule 21:10: daily. [facility] omeprazole 2019-0 Yes 40mg Take 40 mg U nivers 40 mg 8-22 by mouth ity of capsule 21:10: daily. [facility] omeprazole 2019-0 Yes 40mg Take 40 mg U [facility] 40 mg 8-22 by mouth ity of capsule 21:10: daily. [facility] omeprazole 2019-0 Yes 40mg Take 40 mg U nivers 40 mg 8-22 by mouth ity of capsule 21:10: daily. [place] [facility] omeprazole 2019-0 Yes 40mg Take 40 mg U nivers 40 mg 8-22 by mouth ity of capsule 21:10: daily. [facility] omeprazole 2019-0 Yes 40mg Take 40 mg U nivers 40 mg 8-22 by mouth ity of capsule 21:10: daily. [address] omeprazole 2019-0 Yes 40mg Take 40 mg [facility] 40 mg 8-22 by mouth ity of capsule 21:10: daily. [place] [facility] omeprazole 2019-0 Yes 40mg Take 40 mg U nivers 40 mg 8-22 by mouth ity of capsule 21:10: daily. [address] omeprazole 2019-0 Yes 40mg Take 40 mg [facility] 40 mg 8-22 by mouth ity of capsule 21:10: daily. [address] omeprazole 2019-0 Yes 40mg Take 40 mg [facility] 40 mg 8-22 by mouth ity of capsule 21:10: daily. [address] omeprazole 2019-0 Yes 40mg Take 40 mg [facility] 40 mg 8-22 by mouth ity of capsule 21:10: daily. [address] omeprazole 2019-0 Yes 40mg Take 40 mg [facility] 40 mg 8-22 by mouth ity of capsule 21:10: daily. [address] omeprazole 2019-0 Yes 40mg Take 40 mg [facility] 40 mg 8-22 by mouth ity of capsule 21:10: daily. [address] omeprazole 2019-0 Yes 40mg Take 40 mg [facility] 40 mg 8-22 by mouth ity of capsule 21:10: daily. [address] omeprazole 2019-0 Yes 40mg Take 40 mg [facility] 40 mg 8-22 by mouth ity of capsule 21:10: daily. [address] omeprazole 2019-0 Yes 40mg Take 40 mg [facility] 40 mg 8-22 by mouth ity of capsule 21:10: daily. [address] omeprazole 2019-0 Yes 40mg Take 40 mg [facility] 40 mg 8-22 by mouth ity of capsule 21:10: daily. [address] omeprazole 2019-0 Yes 40mg Take 40 mg [facility] nivers 40 mg 8-22 by mouth ity of capsule 21:10: daily. [address] Branch omeprazole 2019- Yes 40mg Take 40 mg U nivers 40 mg 8-22 by mouth ity of capsule 21:10: daily. [address] Branch omeprazole 2019-0 Yes 40mg Take 40 mg U nivers 40 mg 8-22 by mouth ity of capsule 21:10: daily. [address] Branch venlafaxine Yes major 75mg Q.5D [...] 10 MG 14:49: daily. Medical tablet 19 [place] roflumilast 0 Yes 500ug QD Take [address] (DALIRESP) 8-12 [facility]cg [facility] Tab 14:49: mouth Medic al tablet 19 daily. Center albuterol 0 Yes 1{puff} Inhale [address] HFA 8-12 puff [facility] (VENTOLIN 14:49: mouth via Med ical HFA) 90 19 inhaler Center mcg/actuati every 6 on inhaler (six) hours as needed for Wheezing. dextroamphe 0 Yes 20mg Q.5D Take 20 mg [facility] [...] 14:49: daily. Medical tablet 19 [facility] roflumilast 0 Yes 500ug QD Take [address] (DALIRESP) 8-12 [facility]cg [facility] mcg Tab 14:49: mouth Medic al tablet 19 daily. Center albuterol 0 Yes 1{puff} Inhale [address] HFA 8-12 puff [facility] (VENTOLIN 14:49: mouth via Med ical HFA) 90 19 inhaler Center mcg/actuati every 6 on inhaler (six) hours as needed for Wheezing. dextroamphe 0 Yes 20mg Q.5D Take [address] [facility] tamine-amph 8-12 by mouth 2 Niurka kes etamine 14:49: (two) Medical (ADDERALL) 19 times Center 20 mg Tab daily. tablet pantoprazol 2018-0 2020- No 40mg Take 40 mg [facility] 40 mg EC 8 08-12 by mouth. ity of tablet 00:00: 04:59 [place] 00 :00 Medical Branch pantoprazol 2019-0 2020- No 40mg Take 40 mg [facility] e 40 mg EC 03-06 08-12 by mouth. ity of tablet 00:00: 04:59 [place] 00 :00 Medical Branch pantoprazol 2019-0 2020- No 40mg Take 40 mg [facility] e 40 mg EC 03-06 08-12 by mouth. ity of tablet 00:00: 04:59 [place] 00 :00 Medical Branch pantoprazol 2019-0 2020- No 40mg Take 40 mg [facility] e 40 mg EC 03-06 08-12 by mouth. ity of tablet 00:00: 04:59 [place] 00 :00 Medical Branch pantoprazol 2019-0 2020- No 40mg Take 40 mg [facility] e 40 mg EC 8 08-12 by mouth. ity of tablet 00:00: 04:59 [place] 00 :00 Medical Branch pantoprazol 2019-0 2020- No 40mg Take 40 mg [facility] e 40 mg EC 8 08-12 by mouth. ity of tablet 00:00: 04:59 [place] 00 :00 Medical Branch pantoprazol 2019-0 2020- No 40mg Take 40 mg [facility] e 40 mg EC 8 08-12 by mouth. ity of tablet 00:00: 04:59 [place] 00 :00 Medical Branch pantoprazol 2019-0 2020- No 40mg Take 40 mg [facility] e 40 mg EC 8 08-12 by mouth. ity of tablet 00:00: 04:59 [place] 00 :00 Medical Branch pantoprazol 2019-0 2020- No 40mg Take 40 mg [facility] e 40 mg EC 03-06 08-12 by mouth. ity of tablet 00:00: 04:59 [place] 00 :00 Medical Branch pantoprazol 2019-0 2020- No 40mg Take 40 mg [facility] e 40 mg EC 03-06 08-12 by mouth. ity of tablet 00:00: 04:59 [place] 00 :00 Medical Branch pantoprazol 2019-0 2020- No 40mg Take 40 mg [facility] e 40 mg EC 03-06 08-12 by mouth. ity of tablet 00:00: 04:59 [place] 00 :00 Medical Branch pantoprazol 2019-0 2020- No 40mg Take 40 mg [facility] e 40 mg EC 03-0612 by mouth. ity of tablet 00:00: 04:59 [place] 00 :00 Medical Branch pantoprazol 2019-0 2020- No 40mg Take 40 mg [facility] e 40 mg EC 03-06 by mouth. ity of tablet 00:00: 04:59 [place] 00 :00 Medical Branch pantoprazol 2019-0 2020- No 40mg Take 40 mg [facility] e 40 mg EC 03-06 by mouth. ity of tablet 00:00: 04:59 [place] 00 :00 Medical Branch pantoprazol 2019-0 2020- No 40mg Take 40 mg [facility] e 40 mg EC 03-06 by mouth. ity of tablet 00:00: 04:59 [place] 00 :00 [facility] pantoprazol 2019-0 2020- No 40mg Take 40 mg [facility] e 40 mg EC 03-06 by mouth. ity of tablet 00:00: 04:59 [place] 00 :00 [facility] pantoprazol 2019-0 2020- No 40mg Take 40 mg [facility] e 40 mg EC 03-06 by mouth. ity of tablet 00:00: 04:59 [place] 00 :00 [facility] pantoprazol 2019-0 2020- No 40mg Take 40 mg [facility] e 40 mg EC 03-06 by mouth. ity of tablet 00:00: 04:59 [place] 00 :00 [facility] pantoprazol 2019-0 2020- No 40mg Take 40 mg [facility] e 40 mg EC 03-0612 by mouth. ity of tablet 00:00: 04:59 [place] 00 :00 Medical Branch pantoprazol 2019-0 2020- No 40mg Take 40 mg [facility] e 40 mg EC 03-0612 by mouth. ity of tablet 00:00: 04:59 [place] 00 :00 Medical Branch pantoprazol 2019-0 2020- No 40mg Take 40 mg [facility] e 40 mg EC 03-06 by mouth. ity of tablet 00:00: 04:59 [place] 00 :00 [facility] Branch dextroamphe 2019-0 Yes Take by Uni [...] (ADDERALL 21 prescribed Medi feliciano ORAL) by [facility] but the patient has been counseled [...] (ADDERALL 21 prescribed Medi feliciano ORAL) by [facility] but the patient has been counseled [...] (ADDERALL 21 prescribed Medi feliciano ORAL) by [facility] but the patient has been counseled [...] (ADDERALL 21 prescribed Medi feliciano ORAL) by [facility] but the patient has been counseled not to take it due the cardiovasc ular risks dextroamphe 2019-0 Yes Take by Uni vers tamine/amph 3-11 mouth. ity of etamine 00:05: Being [place] (ADDERALL 21 prescribed Medi feliciano ORAL) by [facility] but the patient has been counseled not to take it due the cardiovasc ular risks dextroamphe 2019-0 Yes Take by Uni vers tamine/amph 3-11 mouth. ity of etamine 00:05: Being [place] (ADDERALL 21 prescribed Medi feliciano ORAL) by [facility] but the patient has been counseled not to take it due the cardiovasc ular risks dextroamphe 2019-0 Yes Take by Uni vers tamine/amph 3-11 mouth. ity of etamine 00:05: Being [place] (ADDERALL 21 prescribed Medi feliciano ORAL) by [facility] but the patient has been counseled not to take it due the cardiovasc ular risks dextroamphe 2019-0 Yes Take by Uni vers tamine/amph 3-11 mouth. ity of etamine 00:05: Being [place] (ADDERALL 21 prescribed Medi feliciano ORAL) by [facility] but the patient has been counseled not to take it due the cardiovasc ular risks dextroamphe 2019-0 Yes Take by Uni vers tamine/amph 3-11 mouth. ity of etamine 00:05: Being [place] (ADDERALL 21 prescribed Medi feliciano ORAL) by [facility] but the patient has been counseled not to take it due the cardiovasc ular risks dextroamphe 2019-0 Yes Take by Uni vers tamine/amph 3-11 mouth. ity of etamine 00:05: Being [place] (ADDERALL 21 prescribed Medi feliciano ORAL) by [facility] but the patient has been counseled not to take it due the cardiovasc ular risks dextroamphe 2019-0 Yes Take by Uni vers tamine/amph 3-11 mouth. ity of etamine 00:05: Being [place] (ADDERALL 21 prescribed Medi feliciano ORAL) by [facility] but the patient has been counseled not to take it due the cardiovasc ular risks dextroamphe 2019-0 Yes Take by Uni vers tamine/amph 3-11 mouth. ity of etamine 00:05: Being [place] (ADDERALL 21 prescribed Medi feliciano ORAL) by [facility] but the patient has been counseled not to take it due the cardiovasc ular risks dextroamphe 2019-0 Yes Take by Uni vers tamine/amph 3-11 mouth. ity of etamine 00:05: Being [place] (ADDERALL 21 prescribed Medi feliciano ORAL) by [facility] but the patient has been counseled not to take it due the cardiovasc ular risks dextroamphe 2019-0 Yes Take by Uni vers tamine/amph 3-11 mouth. ity of etamine 00:05: Being [place] (ADDERALL 21 prescribed Medi feliciano ORAL) by [facility] but the patient has been counseled [...] (ADDERALL 21 prescribed Medi feliciano ORAL) by [facility] but the patient has been counseled [...] (ADDERALL 21 prescribed Medi feliciano ORAL) by [facility] but the patient has been counseled [...] (ADDERALL 21 prescribed Medi feliciano ORAL) by [facility] but the patient has been counseled not to take it due the cardiovasc ular risks dextroamphe 2019-0 Yes Take by Uni vers tamine/amph 3-11 mouth. ity of etamine 00:05: Being [place] (ADDERALL 21 prescribed Medi feliciano ORAL) by [facility] but the patient has been counseled not to take it due the cardiovasc ular risks dextroamphe 2019-0 Yes Take by Uni vers tamine/amph 3-11 mouth. ity of etamine 00:05: Being [place] (ADDERALL 21 prescribed Medi feliciano ORAL) by [facility] but the patient has been counseled not to take it due the cardiovasc ular risks dextroamphe 2019-0 Yes Take by Uni vers tamine/amph 3-11 mouth. ity of etamine 00:05: Being [place] (ADDERALL 21 prescribed Medi feliciano ORAL) by [facility] but the patient has been counseled not to take it due the cardiovasc ular risks carvedilol 2019-0 Yes 3.125mg Take 3.125 [facility] 3.125 mg 3-07 mg by ity of tablet 20:27: mouth 2 [place] [address] (two) Medical times Branch daily with meals. carvedilol 2019-0 Yes 3.125mg Take 3.125 [facility] 3.125 mg 3-07 mg by ity of tablet 20:27: mouth 2 [place] [address] (two) Medical times Branch daily with meals. carvedilol 2019-0 Yes 3.125mg Take 3.125 [facility] 3.125 mg 3-07 mg by ity of tablet 20:27: mouth 2 [place] [address] (two) Medical times Branch daily with meals. carvedilol 2019-0 Yes 3.125mg Take 3.125 [facility] 3.125 mg 3-07 mg by ity of tablet 20:27: mouth 2 [place] [address] (two) Medical times Branch daily with meals. carvedilol 2019-0 Yes 3.125mg Take 3.125 [facility] 3.125 mg 3-07 mg by ity of tablet 20:27: mouth 2 [place] [address] (two) Medical times Branch daily with meals. carvedilol 2019-0 Yes 3.125mg Take 3.125 [facility] 3.125 mg 3-07 mg by ity of tablet 20:27: mouth 2 [place] [address] (two) Medical times Branch daily with meals. carvedilol 2019-0 Yes 3.125mg Take 3.125 [facility] 3.125 mg 3-07 mg by ity of tablet 20:27: mouth 2 [place] 22 (two) Medical times Branch daily with meals. carvedilol 2019-0 Yes 3.125mg Take 3.125 [facility] 3.125 mg 3-07 mg by ity of tablet 20:27: mouth 2 [place] 22 (two) Medical times Branch daily with meals. carvedilol 2019-0 Yes 3.125mg Take 3.125 [facility] 3.125 mg 3-07 mg by ity of tablet 20:27: mouth 2 [place] 22 (two) Medical times Branch daily with meals. carvedilol 2019-0 Yes 3.125mg Take 3.125 [facility] 3.125 mg 3-07 mg by ity of tablet 20:27: mouth 2 [place] [address] (two) Medical times Branch daily with meals. carvedilol 2019-0 Yes 3.125mg Take 3.125 [facility] 3.125 mg 3-07 mg by ity of tablet 20:27: mouth 2 [place] [address] (two) Medical times Branch daily with meals. carvedilol 2019-0 Yes 3.125mg Take 3.125 [facility] 3.125 mg 3-07 mg by ity of tablet 20:27: mouth 2 [place] [address] (two) Medical times Branch daily with meals. carvedilol 2019-0 Yes 3.125mg Take 3.125 [facility] 3.125 mg 3-07 mg by ity of tablet 20:27: mouth 2 [place] [address] (two) Medical times Branch daily with meals. carvedilol 2019-0 Yes 3.125mg Take 3.125 [facility] 3.125 mg 3-07 mg by ity of tablet 20:27: mouth 2 [place] [address] (two) Medical times Branch daily with meals. carvedilol 2019-0 Yes 3.125mg Take 3.125 [facility] 3.125 mg 3-07 mg by ity of tablet 20:27: mouth 2 [place] [address] (two) Medical times Branch daily with meals. carvedilol 2019-0 Yes 3.125mg Take 3.125 [facility] 3.125 mg 3-07 mg by ity of tablet 20:27: mouth 2 [place] 22 (two) Medical times Branch daily with meals. carvedilol 2019-0 Yes 3.125mg Take 3.125 [facility] 3.125 mg 3-07 mg by ity of tablet 20:27: mouth 2 [place] [address] (two) Medical times Branch daily with meals. carvedilol 2019-0 Yes 3.125mg Take 3.125 [facility] 3.125 mg 3-07 mg by ity of tablet 20:27: mouth 2 [place] [address] (two) Medical times Branch daily with meals. carvedilol 2019-0 Yes 3.125mg Take 3.125 [facility] 3.125 mg 3-07 mg by ity of tablet 20:27: mouth 2 [place] 22 (two) Medical times Branch daily with meals. carvedilol 2019-0 Yes 3.125mg Take 3.125 [facility] 3.125 mg 3-07 mg by ity of tablet 20:27: mouth 2 [place] [address] (two) Medical times Branch daily with meals. carvedilol 2019-0 Yes 3.125mg Take 3.125 [facility] 3.125 mg 3-07 mg by ity of tablet 20:27: mouth 2 [place] [address] (two) Medical times Branch daily with meals. carvedilol 2019-0 Yes 3.125mg Take 3.125 [facility] 3.125 mg 3-07 mg by ity of tablet 20:27: mouth 2 [place] [address] (two) Medical times Branch daily with meals. carvedilol 2019-0 Yes 3.125mg Take 3.125 [facility] 3.125 mg 3-07 mg by ity of tablet 20:27: mouth 2 [place] [address] (two) Medical times Branch daily with meals. carvedilol 2019-0 Yes 3.125mg Take 3.125 [facility] 3.125 mg 3-07 mg by ity of tablet 20:27: mouth 2 [place] [address] (two) Medical times Branch daily with meals. carvedilol 2019-0 Yes 3.125mg Take 3.125 [facility] 3.125 mg 3-07 mg by ity of tablet 20:27: mouth 2 [place] [address] (two) Medical times Branch daily with meals. carvedilol 2019-0 Yes 3.125mg Take 3.125 [facility] 3.125 mg 3-07 mg by ity of tablet 20:27: mouth 2 [place] [address] (two) Medical times Branch daily with meals. carvedilol 2019-0 Yes 3.125mg Take 3.125 [facility] 3.125 mg 3-07 mg by ity of tablet 20:27: mouth 2 [place] 22 (two) Medical times Branch daily with meals. Venlafaxine 2019-0 Yes [id number] 75mg Take 1 [facility] 75 mg 3-07 tablet by ity of tablet 00:00: mouth 2 [place] 00 (two) Medical times Branch daily. Additional refills per psychiatry Venlafaxine 2019-0 Yes [id number] 75mg Take 1 [facility] 75 mg 3-07 tablet by ity of tablet 00:00: mouth (two) Medical times Branch daily. Additional refills per psychiatry Venlafaxine 2019-0 Yes [id number] 75mg Take 1 [facility] 75 mg 3-07 tablet by ity of tablet 00:00: mouth (two) Medical times Branch daily. Additional refills per psychiatry Venlafaxine 2019-0 Yes [id number] 75mg Take 1 [facility] 75 mg 3-07 tablet by ity of tablet 00:00: mouth (two) Medical times Branch daily. Additional refills per psychiatry Venlafaxine 2019-0 Yes [id number] 75mg Take 1 [facility] 75 mg 3-07 tablet by ity of tablet 00:00: mouth (two) Medical times Branch daily. Additional refills per psychiatry Venlafaxine 2019-0 Yes [id number] 75mg Take 1 [facility] 75 mg 3-07 tablet by ity of tablet 00:00: mouth (two) Medical times Branch daily. Additional refills per psychiatry Venlafaxine 2019-0 Yes [id number] 75mg Take 1 [facility] 75 mg 3-07 tablet by ity of tablet 00:00: mouth () Medical times Branch daily. Additional refills per psychiatry Venlafaxine 2019-0 Yes [id number] 75mg Take 1 [facility] 75 mg 3-07 tablet by ity of tablet 00:00: mouth (two) Medical times Branch daily. Additional refills per psychiatry Venlafaxine 2019-0 Yes [id number] 75mg Take 1 [facility] 75 mg 3-07 tablet by ity of tablet 00:00: mouth (two) Medical times Branch daily. Additional refills per psychiatry Venlafaxine 2019-0 Yes [id number] 75mg Take 1 [facility] 75 mg 3-07 tablet by ity of tablet 00:00: mouth (two) Medical times Branch daily. Additional refills per psychiatry Venlafaxine 2019-0 Yes [id number] 75mg Take 1 [facility] 75 mg 3-07 tablet by ity of tablet 00:00: mouth (two) Medical times Branch daily. Additional refills per psychiatry Venlafaxine 2019-0 Yes [id number] 75mg Take 1 [facility] 75 mg 3-07 tablet by ity of tablet 00:00: mouth (two) Medical times Branch daily. Additional refills per psychiatry Venlafaxine 2018-0 Yes [id number] 75mg Take 1 [facility] 75 mg 3-07 tablet by ity of tablet 00:00: mouth 2 (two) Medical times Branch daily. Additional refills per psychiatry Venlafaxine 2018-0 Yes [id number] 75mg Take 1 [facility] 75 mg 3-07 tablet by ity of tablet 00:00: mouth 2 (two) Medical times Branch daily. Additional refills per psychiatry Venlafaxine 2018-0 Yes [id number] 75mg Take 1 [facility] 75 mg 3-07 tablet by ity of tablet 00:00: mouth (two) Medical times Branch daily. Additional refills per psychiatry Venlafaxine 2018-0 Yes [id number] 75mg Take 1 [facility] 75 mg 3-07 tablet by ity of tablet 00:00: mouth (two) Medical times Branch daily. Additional refills per psychiatry Venlafaxine 2018-0 Yes [id number] 75mg Take 1 [facility] 75 mg 3-07 tablet by ity of tablet 00:00: mouth (two) Medical times Branch daily. Additional refills per psychiatry Venlafaxine 2018-0 Yes [id number] 75mg Take 1 [facility] 75 mg 3-07 tablet by ity of tablet 00:00: mouth (two) Medical times Branch daily. Additional refills per psychiatry Venlafaxine 2018-0 Yes [id number] 75mg Take 1 [facility] 75 mg 3-07 tablet by ity of tablet 00:00: mouth (two) Medical times Branch daily. Additional refills per psychiatry Venlafaxine 2018-0 Yes [id number] 75mg Take 1 [facility] 75 mg 3-07 tablet by ity of tablet 00:00: mouth (two) Medical times Branch daily. Additional refills per psychiatry Venlafaxine 2019-0 Yes [id number] 75mg Take 1 [facility] 75 mg 3-07 tablet by ity of tablet 00:00: mouth 2 (two) Medical times Branch daily. Additional refills per psychiatry Venlafaxine 2018-0 Yes [id number] 75mg Take 1 [facility] 75 mg 3-07 tablet by ity of tablet 00:00: mouth (two) Medical times Branch daily. Additional refills per psychiatry Venlafaxine 2019-0 Yes [id number] 75mg Take 1 [facility] 75 mg 3-07 tablet by ity of tablet 00:00: mouth (two) Medical times Branch daily. Additional refills per psychiatry Venlafaxine 2019-0 Yes [id number] 75mg Take 1 [facility] 75 mg 3-07 tablet by ity of tablet 00:00: mouth (two) Medical times Branch daily. Additional refills per psychiatry Venlafaxine 2019-0 Yes [id number] 75mg Take 1 [facility] 75 mg 3-07 tablet by ity of tablet 00:00: mouth (two) Medical times Branch daily. Additional refills per psychiatry Venlafaxine 2019-0 Yes [id number] 75mg Take 1 [facility] 75 mg 3-07 tablet by ity of tablet 00:00: mouth (two) Medical times Branch daily. Additional refills per psychiatry Venlafaxine 2018-0 Yes [id number] 75mg Take 1 [facility] 75 mg 3-07 tablet by ity of tablet 00:00: mouth (two) Medical times Branch daily. Additional refills per psychiatry Venlafaxine 2018-0 Yes [id number] 75mg Take 1 [facility] 75 mg 3-07 tablet by ity of tablet 00:00: mouth (two) Medical times Branch daily. Additional refills per psychiatry Venlafaxine 2019-0 Yes [id number] 75mg Take 1 [facility] 75 mg 3-07 tablet by ity of tablet 00:00: mouth (two) Medical times Branch daily. Additional refills per psychiatry Venlafaxine 2019-0 Yes [id number] 75mg Take 1 [facility] 75 mg 3-07 tablet by ity of tablet 00:00: mouth (two) Medical times Branch daily. Additional refills per psychiatry Venlafaxine 2019-0 Yes [id number] 75mg Take 1 [facility] 75 mg 3-07 tablet by ity of tablet 00:00: mouth (two) Medical times Branch daily. Additional refills per psychiatry Venlafaxine 2019-0 Yes [id number] 75mg Take 1 [facility] 75 mg 3-07 tablet by ity of tablet 00:00: mouth (two) Medical times Branch daily. Additional refills per psychiatry Venlafaxine 2019-0 Yes [id number] 75mg Take 1 [facility] 75 mg 3-07 tablet by ity of tablet 00:00: mouth (two) Medical times Branch daily. Additional refills per psychiatry Venlafaxine 2019-0 Yes [id number] 75mg Take 1 [facility] 75 mg 3-07 tablet by ity of tablet 00:00: mouth 2 (two) Medical times Branch daily. Additional refills per psychiatry Venlafaxine 2019-0 Yes [id number] 75mg Take 1 [facility] 75 mg 3-07 tablet by ity of tablet 00:00: mouth (two) Medical times Branch daily. Additional refills per psychiatry Venlafaxine 2019-0 Yes [id number] 75mg Take 1 [facility] 75 mg 3-07 tablet by ity of tablet 00:00: mouth (two) Medical times Branch daily. Additional refills per psychiatry Venlafaxine 2019-0 Yes [id number] 75mg Take 1 [facility] 75 mg 3-07 tablet by ity of tablet 00:00: mouth (two) Medical times Branch daily. Additional refills per psychiatry Venlafaxine 2018-0 Yes [id number] 75mg Take 1 [facility] 75 mg 3-07 tablet by ity of tablet 00:00: mouth (two) Medical times Branch daily. Additional refills per psychiatry Venlafaxine 2019-0 Yes [id number] 75mg Take 1 [facility] 75 mg 3-07 tablet by ity of tablet 00:00: mouth (two) Medical times Branch daily. Additional refills per psychiatry Venlafaxine 2019-0 Yes [id number] 75mg Take 1 [facility] 75 mg 3-07 tablet by ity of tablet 00:00: mouth (two) Medical times Branch daily. Additional refills per psychiatry Venlafaxine 2019-0 Yes [id number] 75mg Take 1 [facility] 75 mg 3-07 tablet by ity of tablet 00:00: mouth (two) Medical times Branch daily. Additional refills per psychiatry Venlafaxine 2019-0 Yes [id number] 75mg Take 1 [facility] 75 mg 3-07 tablet by ity of tablet 00:00: mouth 2 (two) Medical times Branch daily. Additional refills per psychiatry Venlafaxine 2019-0 Yes [id number] 75mg Take 1 [facility] 75 mg 3-07 tablet by ity of tablet 00:00: mouth (two) Medical times Branch daily. Additional refills per psychiatry Venlafaxine 2019-0 Yes [id number] 75mg Take 1 [facility] 75 mg 3-07 tablet by ity of tablet 00:00: mouth 2 (two) Medical times Branch daily. Additional refills per psychiatry Venlafaxine 2019-0 Yes [id number] 75mg Take 1 [facility] 75 mg 3-07 tablet by ity of tablet 00:00: mouth (two) Medical times Branch daily. Additional refills per psychiatry Venlafaxine 2019-0 Yes [id number] 75mg Take 1 [facility] 75 mg 3-07 tablet by ity of tablet 00:00: mouth (two) Medical times Branch daily. Additional refills per psychiatry Venlafaxine 2018-0 Yes [id number] 75mg Take 1 [facility] 75 mg 3-07 tablet by ity of tablet 00:00: mouth (two) Medical times Branch daily. Additional refills per psychiatry Venlafaxine 2018-0 Yes [id number] 75mg Take 1 [facility] 75 mg 3-07 tablet by ity of tablet 00:00: mouth (two) Medical times Branch daily. Additional refills per psychiatry Venlafaxine 2018-0 Yes [id number] 75mg Take 1 [facility] 75 mg 3-07 tablet by ity of tablet 00:00: mouth (two) Medical times Branch daily. Additional refills per psychiatry Venlafaxine 2019-0 Yes [id number] 75mg Take 1 [facility] 75 mg 3-07 tablet by ity of tablet 00:00: mouth (two) Medical times Branch daily. Additional refills per psychiatry Venlafaxine 2018-0 Yes [id number] 75mg Take 1 [facility] 75 mg 3-07 tablet by ity of tablet 00:00: mouth (two) Medical times Branch daily. Additional refills per psychiatry Venlafaxine 2019-0 Yes [id number] 75mg Take 1 [facility] 75 mg 3-07 tablet by ity of tablet 00:00: mouth 2 (two) Medical times Branch daily. Additional refills per psychiatry Venlafaxine 2019-0 Yes [id number] 75mg Take 1 [facility] 75 mg 3-07 tablet by ity of tablet 00:00: mouth (two) Medical times Branch daily. Additional refills per psychiatry Venlafaxine 2019-0 Yes [id number] 75mg Take 1 [facility] 75 mg 3-07 tablet by ity of tablet 00:00: mouth 2 (two) Medical times Branch daily. Additional refills per psychiatry Venlafaxine 2018-0 Yes [id number] 75mg Take 1 [facility] 75 mg 3-07 tablet by ity of tablet 00:00: mouth 2 (two) Medical times Branch daily. Additional refills per psychiatry Venlafaxine 2019-0 Yes [id number] 75mg Take 1 [facility] 75 mg 3-07 tablet by ity of tablet 00:00: mouth 2 (two) Medical times Branch daily. Additional refills per psychiatry Venlafaxine 2018-0 Yes [id number] 75mg Take 1 [facility] 75 mg 3-07 tablet by ity of tablet 00:00: mouth 2 (two) Medical times Branch daily. Additional refills per psychiatry Venlafaxine 2018-0 Yes [id number] 75mg Take 1 [facility] 75 mg 3-07 tablet by ity of tablet 00:00: mouth (two) Medical times Branch daily. Additional refills per psychiatry Venlafaxine 2018- Yes [id number] 75mg Take 1 [facility] 75 mg 3-07 tablet by ity of tablet 00:00: mouth 2 (two) Medical times Branch daily. Additional refills per psychiatry Venlafaxine 2018-0 Yes [id number] 75mg Take 1 [facility] 75 mg 3-07 [...] for Wheezing or Shortness of Breath. ALPRAZolam Yes 1mg Take 1 mg Un bogdan (XANAX) 1 4-05 by mouth 3 ity of mg tablet 00:00: (three) [place] 00 times Medical daily. Branch ALPRAZolam 0 Yes 1mg Take 1 mg Un bogdan (XANAX) 1 4-05 by mouth 4 ity of mg tablet 00:00: (four) [place] 00 times Medical daily. Branch ALPRAZolam 2016-0 Yes 1mg Take 1 mg Un bogdan (XANAX) 1 4-05 by mouth 4 ity of mg tablet 00:00: (four) [place] 00 times Medical daily. Branch ALPRAZolam 0 Yes 1mg Take 1 mg [place] [...] [place] [facility] daily. [place] predniSONE 2016-0 Yes 10mg Take 10 mg U nivers (DELTASONE) 3-22 by mouth ity of 10 mg 00:00: daily. [place] tablet 00 [facility] predniSONE 2016-0 Yes 10mg Take 10 mg U nivers (DELTASONE) 3-22 by mouth ity of 10 mg 00:00: daily. [place] tablet 00 [facility] predniSONE 2016-0 Yes 10mg Take 10 mg U nivers (DELTASONE) 3-22 by mouth ity of 10 mg 00:00: daily. [place] tablet 00 [facility] predniSONE 2016-0 Yes 10mg Take 10 mg U nivers (DELTASONE) 3-22 by mouth ity of 10 mg 00:00: daily. [place] tablet 00 [facility] predniSONE 2016-0 Yes 10mg Take 10 mg U nivers (DELTASONE) 3-22 by mouth ity of 10 mg 00:00: daily. [place] tablet 00 Medical [facility] predniSONE 2016-0 Yes 10mg Take 10 mg U nivers (DELTASONE) 3-22 by mouth ity of 10 mg 00:00: daily. [place] tablet 00 Medical Branch predniSONE 2016-0 Yes 10mg Take 10 mg U nivers (DELTASONE) 3-22 by mouth ity of 10 mg 00:00: daily. [place] tablet 00 Medical Branch predniSONE 2016-0 Yes 10mg Take 10 mg U nivers (DELTASONE) 3-22 by mouth ity of 10 mg 00:00: daily. [place] tablet 00 Medical Branch predniSONE 2016-0 Yes 10mg Take 10 mg U nivers (DELTASONE) 3-22 by mouth ity of 10 mg 00:00: daily. [place] tablet 00 Medical [place] predniSONE 2016-0 Yes 10mg Take 10 mg U nivers (DELTASONE) 3-22 by mouth ity of 10 mg 00:00: daily. [place] tablet 00 Medical [place] predniSONE 2016-0 Yes 10mg Take 10 mg U nivers (DELTASONE) 3-22 by mouth ity of 10 mg 00:00: daily. [place] tablet 00 Medical Branch predniSONE 2016-0 Yes 10mg Take 10 mg U nivers (DELTASONE) 3-22 by mouth ity of 10 mg 00:00: daily. [place] tablet 00 Medical Branch predniSONE 2016-0 Yes 10mg Take 10 mg U nivers (DELTASONE) 3-22 by mouth ity of 10 mg 00:00: daily. [place] tablet 00 Medical [place] predniSONE 2016-0 Yes 10mg Take 10 mg U nivers (DELTASONE) 3-22 by mouth ity of 10 mg 00:00: daily. [place] tablet 00 Medical [place] predniSONE 2016-0 Yes 10mg Take 10 mg U nivers (DELTASONE) 3-22 by mouth ity of 10 mg 00:00: daily. [place] tablet 00 [facility] omeprazole 2016-0 Yes 40mg Take 40 mg U nivers (PRILOSEC) 3-08 by mouth ity o f 40 mg 00:00: daily. [place] capsule 00 [facility] omeprazole 2016-0 2019- No 40mg Take 40 mg Univers (PRILOSEC) 3-08 08-22 by mouth ity of 40 mg 00:00: 00:00 daily. [place] capsule 00 :00 [facility] omeprazole 2016-0 2019- No 40mg Take 40 mg Univers (PRILOSEC) 3 08-22 by mouth ity of 40 mg 00:00: 00:00 daily. [place] capsule 00 :00 [facility] 2015-0 Yes 250ug Take 250 Univ ers 500 mcg 3-07 mcg by ity of tablet 00:00: mouth [place] 00 daily. [facility] 2015-0 Yes 250ug Take 250 Univ ers 500 mcg 3-07 mcg by ity of tablet 00:00: mouth [place] 00 daily. [facility] 2015-0 Yes 1{tbl} Take 1 Unive rs 500 mcg 3-07 tablet by ity of tablet 00:00: mouth 00 daily. [facility] 2015-0 Yes 250ug Take 250 Univ ers 500 mcg 3-07 mcg by ity of tablet 00:00: mouth 00 daily. [facility] 2015- Yes 250ug Take 250 Univ ers 500 mcg 3-07 mcg by ity of tablet 00:00: mouth 00 daily. [facility] 2015- Yes 250ug Take 250 Univ ers 500 mcg 3-07 mcg by ity of tablet 00:00: mouth [place] 00 daily. [facility] 2015-0 Yes 1{tbl} Take 1 Unive rs 500 mcg 3-07 tablet by ity of tablet 00:00: mouth 00 daily. [facility] 2015-0 Yes 250ug Take 250 Univ ers 500 mcg 3-07 mcg by ity of tablet 00:00: mouth [place] 00 daily. [facility] 2015-0 Yes 250ug Take 250 Univ ers 500 mcg 3-07 mcg by ity of tablet 00:00: mouth [place] 00 daily. [facility] 2015-0 Yes 250ug Take 250 Univ ers 500 mcg 3-07 mcg by ity of tablet 00:00: mouth [place] 00 daily. [facility] 2015-0 Yes 250ug Take 250 Univ ers 500 mcg 3-07 mcg by ity of tablet 00:00: mouth [place] 00 daily. [facility] 2015-0 Yes 1{tbl} Take 1 Unive rs 500 mcg 3-07 tablet by ity of tablet 00:00: mouth [place] 00 daily. [facility] 2015-0 Yes 1{tbl} Take 1 Unive rs 500 mcg 3-07 tablet by ity of tablet 00:00: mouth [place] 00 daily. [facility] 0 Yes 1{tbl} Take 1 Unive rs 500 mcg 3-07 tablet by ity of tablet 00:00: mouth [place] 00 daily. [facility] 0 Yes 1{tbl} Take 1 Unive rs 500 mcg 3-07 tablet by ity of tablet 00:00: mouth [place] 00 daily. [facility] 0 Yes 1{tbl} Take 1 Unive rs 500 mcg 3-07 tablet by ity of tablet 00:00: mouth [place] 00 daily. [facility] 0 Yes 1{tbl} Take 1 Unive rs 500 mcg 3-07 tablet by ity of tablet 00:00: mouth [place] 00 daily. [facility] 0 Yes 1{tbl} Take 1 Unive rs 500 mcg 3-07 tablet by ity of tablet 00:00: mouth [place] 00 daily. [facility] 0 Yes 1{tbl} Take 1 Unive rs 500 mcg 3-07 tablet by ity of tablet 00:00: mouth [place] 00 daily. [facility] Yes 1{tbl} Take 1 Unive rs 500 mcg 3-07 tablet by ity of tablet 00:00: mouth [place] 00 daily. [facility] 0 Yes 1{tbl} Take 1 Unive rs 500 mcg 3-07 tablet by ity of tablet 00:00: mouth [place] 00 daily. [facility] 0 Yes 1{tbl} Take 1 Unive rs 500 mcg 3-07 tablet by ity of tablet 00:00: mouth [place] 00 daily. [facility] 0 Yes 1{tbl} Take 1 Unive rs 500 mcg 3-07 tablet by ity of tablet 00:00: mouth [place] 00 daily. [facility] 0 Yes 1{tbl} Take 1 Unive rs 500 mcg 3-07 tablet by ity of tablet 00:00: mouth [place] 00 daily. [facility] 0 Yes 1{tbl} Take 1 Unive rs 500 mcg 3-07 tablet by ity of tablet 00:00: mouth [place] 00 daily. [facility] 0 Yes 1{tbl} Take 1 Unive rs 500 mcg 3-07 tablet by ity of tablet 00:00: mouth [place] 00 daily. [facility] 2016-0 Yes 1{tbl} Take 1 Unive rs 500 mcg 3-07 tablet by ity of tablet 00:00: mouth [place] 00 daily. [facility] 2016-0 Yes 1{tbl} Take 1 Unive rs 500 mcg 3-07 tablet by ity of tablet 00:00: mouth [place] 00 daily. [facility] 2015-0 Yes 1{tbl} Take 1 Unive rs 500 mcg 3-07 tablet by ity of tablet 00:00: mouth [place] 00 daily. [facility] 2015-0 Yes 1{tbl} Take 1 Unive rs 500 mcg 3-07 tablet by ity of tablet 00:00: mouth [place] 00 daily. [facility] 2015-0 Yes 1{tbl} Take 1 Unive rs 500 mcg 3-07 tablet by ity of tablet 00:00: mouth [place] 00 daily. [facility] 2015-0 Yes 1{tbl} Take 1 Unive rs 500 mcg 3-07 tablet by ity of tablet 00:00: mouth [place] 00 daily. [facility] 2015-0 Yes 250ug Take 250 Univ ers 500 mcg 3-07 mcg by ity of tablet 00:00: mouth [place] 00 daily. [facility] 2015-0 Yes 250ug Take 250 Univ ers 500 mcg 3-07 mcg by ity of tablet 00:00: mouth [place] 00 daily. [facility] 2015-0 Yes 250ug Take 250 Univ ers 500 mcg 3-07 mcg by ity of tablet 00:00: mouth [place] 00 daily. [facility] 2015-0 Yes 250ug Take 250 Univ ers 500 mcg 3-07 mcg by ity of tablet 00:00: mouth [place] 00 daily. [facility] 2015-0 Yes 250ug Take 250 Univ ers 500 mcg 3-07 mcg by ity of tablet 00:00: mouth [place] 00 daily. [facility] 2015-0 Yes 250ug Take 250 Univ ers 500 mcg 3-07 mcg by ity of tablet 00:00: mouth [place] 00 daily. [facility] 2015-0 Yes 1{tbl} Take 1 Unive rs 500 mcg 3-07 tablet by ity of tablet 00:00: mouth [place] 00 daily. [facility] 2016-0 Yes 250ug Take 250 Univ ers 500 mcg 3-07 mcg by ity of tablet 00:00: mouth [place] 00 daily. [facility] 2016-0 Yes 250ug Take 250 Univ ers 500 mcg 3-07 mcg by ity of tablet 00:00: mouth [place] 00 daily. [facility] 2016-0 Yes 250ug Take 250 Univ ers 500 mcg 3-07 mcg by ity of tablet 00:00: mouth [place] 00 daily. [facility] 2016-0 Yes 250ug Take 250 Univ ers 500 mcg 3-07 mcg by ity of tablet 00:00: mouth [place] 00 daily. [facility] 2016-0 Yes 250ug Take 250 Univ ers 500 mcg 3-07 mcg by ity of tablet 00:00: mouth [place] 00 daily. [facility] 2015-0 Yes 250ug Take 250 Univ ers 500 mcg 3-07 mcg by ity of tablet 00:00: mouth [place] 00 daily. [facility] 2016-0 Yes 250ug Take 250 Univ ers 500 mcg 3-07 mcg by ity of tablet 00:00: mouth [place] 00 daily. [facility] 2015-0 Yes 250ug Take 250 Univ ers 500 mcg 3-07 mcg by ity of tablet 00:00: mouth [place] 00 daily. [facility] 2016-0 Yes 250ug Take 250 Univ ers 500 mcg 3-07 mcg by ity of tablet 00:00: mouth [place] 00 daily. [facility] 2016-0 Yes 1{tbl} Take 1 Unive rs 500 mcg 3-07 tablet by ity of tablet 00:00: mouth [place] 00 daily. [facility] 2016-0 Yes 250ug Take 250 Univ ers 500 mcg 3-07 mcg by ity of tablet 00:00: mouth [place] 00 daily. [facility] 2016-0 Yes 250ug Take 250 Univ ers 500 mcg 3-07 mcg by ity of tablet 00:00: mouth [place] 00 daily. [facility] 2016-0 Yes 250ug Take 250 Univ ers 500 mcg 3-07 mcg by ity of tablet 00:00: mouth [place] 00 daily. [facility] 2016-0 Yes 250ug Take 250 Univ ers 500 mcg 3-07 mcg by ity of tablet 00:00: mouth [place] 00 daily. [facility] Yes 1{tbl} Take 1 Unive rs 500 mcg 3-07 tablet by ity of tablet 00:00: mouth [place] 00 daily. [facility] 0 Yes 250ug Take 250 Univ ers 500 mcg 3-07 mcg by ity of tablet 00:00: mouth [place] 00 daily. [facility] 0 Yes 250ug Take 250 Univ ers 500 mcg 3-07 mcg by ity of tablet 00:00: mouth [place] 00 daily. [facility] 0 Yes 250ug Take 250 Univ ers 500 mcg 3-07 mcg by ity of tablet 00:00: mouth [place] 00 daily. [facility] Yes 1{tbl} Take 1 Unive rs 500 mcg 3-07 tablet by ity of tablet 00:00: mouth [place] 00 daily. [facility] Yes 250ug Take 250 Univ ers 500 mcg 3-07 mcg by ity of tablet 00:00: mouth [place] 00 daily. [facility] Yes 250ug Take 250 Univ ers 500 mcg 3-07 mcg by ity of tablet 00:00: mouth [place] 00 daily. [facility] Yes 1{puff} Inhale 1 Univer s ELLIPTA 2-02 Puff ity of 100-25 00:00: daily. [place] mcg/dose 00 [facility] Yes 1{puff} Inhale 1 Univer s ELLIPTA 2-02 Puff ity of 100-25 00:00: daily. [place] mcg/dose 00 [facility] Yes 1{puff} Inhale 1 Univer s ELLIPTA 2-02 Puff ity of 100-25 00:00: daily. [place] mcg/dose 00 [facility] Yes 1{puff} Inhale 1 Univer s ELLIPTA 2-02 Puff ity of 100-25 00:00: daily. [place] mcg/dose 00 [facility] 0 Yes 1{puff} Inhale 1 Univer s ELLIPTA 2-02 Puff ity of 100-25 00:00: daily. [place] mcg/dose 00 [facility] Yes 1{puff} Inhale 1 Univer s ELLIPTA [...] /3 00:00: [place] mL (0.083 00 Medical ) Branch nebulizer solution Immunizations Ordered Filled Immunization Date Status Comments [facility] Immunization Name Name Influenza Virus 2019-04-07 Completed Universit y of Vaccine 00:00:00 [facility] Influenza Virus 2019-04-07 Completed Universit y of Vaccine 00:00:00 [facility] Influenza Virus 2019-04-07 Completed Universit y of Vaccine 00:00:00 [facility] Influenza Virus 2019-04-07 Completed Universit y of Vaccine 00:00:00 [facility] Influenza Virus 2019-04-07 Completed Universit y of Vaccine 00:00:00 [facility] Influenza Virus 2019-04-07 Completed Universit y of Vaccine 00:00:00 [facility] Influenza Virus 2019-04-07 Completed Universit y of Vaccine 00:00:00 [facility] Influenza Virus 2019-04-07 Completed Universit y of Vaccine 00:00:00 [facility] Influenza Virus 2019-04-07 Completed Universit y of Vaccine 00:00:00 [facility] Influenza Virus 2019-04-07 Completed Universit y of Vaccine 00:00:00 [facility] Influenza Virus 2019-04-07 Completed Universit y of Vaccine 00:00:00 [facility] Influenza Virus 2019-04-07 Completed Universit y of Vaccine 00:00:00 [facility] Influenza Virus 2019-04-07 Completed Universit y of Vaccine 00:00:00 [facility] Influenza Virus 2019-04-07 Completed Universit y of Vaccine 00:00:00 [facility] Influenza Virus 2019-04-07 Completed Universit y of Vaccine 00:00:00 [facility] Influenza Virus 2019-04-07 Completed Universit y of Vaccine 00:00:00 [facility] Influenza Virus 2019-04-07 Completed Universit y of Vaccine 00:00:00 [facility] Influenza Virus 2019-04-07 Completed Universit y of Vaccine 00:00:00 [facility] Influenza Virus 2019-04-07 Completed Universit y of Vaccine 00:00:00 [facility] Influenza Virus 2019-04-07 Completed Universit y of Vaccine 00:00:00 [facility] Influenza Virus 2019-04-07 Completed Universit y of Vaccine 00:00:00 [facility] Influenza Virus 2019-04-07 Completed Universit y of Vaccine 00:00:00 [facility] Influenza Virus 2019-04-07 Completed Universit y of Vaccine 00:00:00 [facility] Influenza Virus 2019-04-07 Completed Universit y of Vaccine 00:00:00 [facility] Influenza Virus 2019-04-07 Completed Universit y of Vaccine 00:00:00 [facility] Influenza Virus 2019-04-07 Completed Universit y of Vaccine 00:00:00 [facility] Influenza Virus 2019-04-07 Completed Universit y of Vaccine 00:00:00 [facility] Influenza Virus 2019-04-07 Completed Universit y of Vaccine 00:00:00 [facility] Influenza Virus 2019-04-07 Completed Universit y of Vaccine 00:00:00 [facility] Influenza Virus 2019-04-07 Completed Universit y of Vaccine 00:00:00 [facility] Influenza Virus 2019-04-07 Completed Universit y of Vaccine 00:00:00 [facility] Influenza Virus 2019-04-07 Completed Universit y of Vaccine 00:00:00 [facility] Influenza Virus 2019-04-07 Completed Universit y of Vaccine 00:00:00 [facility] Influenza Virus 2019-04-07 Completed Universit y of Vaccine 00:00:00 [facility] Influenza Virus 2019-04-07 Completed Universit y of Vaccine 00:00:00 [facility] Influenza Virus 2019-04-07 Completed Universit y of Vaccine 00:00:00 [facility] Influenza Virus 2019-04-07 Completed Universit y of Vaccine 00:00:00 [facility] Influenza Virus 2019-04-07 Completed Universit y of Vaccine 00:00:00 [facility] Influenza Virus 2019-04-07 Completed Universit y of Vaccine 00:00:00 [facility] Influenza Virus 2019-04-07 Completed Universit y of Vaccine 00:00:00 [facility] Influenza Virus 2019-04-07 Completed Universit y of Vaccine 00:00:00 [facility] Influenza Virus 2019-04-07 Completed Universit y of Vaccine 00:00:00 [facility] Influenza Virus 2019-04-07 Completed Universit y of Vaccine 00:00:00 [facility] Influenza Virus 2019-04-07 Completed Universit y of Vaccine 00:00:00 [facility] Influenza Virus 2019-04-07 Completed Universit y of Vaccine 00:00:00 [facility] Vital Signs Vital Name Observation Time Observation Value Comments Source Systolic blood 2020-11-20 16:07:00 143 mm[Hg] [facility] sity [facility] [place] [facility] Diastolic blood 2020-11-20 16:07:00 77 mm[Hg] Unive rsity of pressure [place] [facility] Heart rate 2020-11-20 16:07:00 114 /min [facility] [place] [facility] Body temperature 2020-11-20 16:07:00 36.39 Ge[place]anna [facility] ers[facility] [place] [facility] Body height 2020-11-20 16:07:00 152.4 cm [facility] [place] [facility] Body weight 2020-11-20 16:07:00 52.844 kg [facility] [place] [facility] BMI 2020-11-20 16:07:00 22.75 kg/m2 [facility] [place] [facility] Oxygen saturation in 2020-11-20 16:07:00 96 /min University of Arterial blood by [facility] Pulse oximetry Branch Systolic blood 2020-03-29 05:00:00 165 mm[Hg] Univer sity of pressure [place] [facility] Diastolic blood 2020-03-29 05:00:00 88 mm[Hg] Unive rsity of pressure [place] [facility] Heart rate 2020-03-29 05:00:00 82 /min [facility] [place] [facility] Respiratory rate 2020-03-29 05:00:00 20 /min [facility] [place] [facility] Oxygen saturation in 2020-03-29 05:00:00 96 /min [facility] of Arterial blood by [place] [employer] [facility] Pulse oximetry [place] Body temperature 2020-03-29 01:46:00 37.56 Geovanna [facility] [place] [facility] Body weight 2020-03-29 01:46:00 51.71 kg [facility] [place] [facility] BMI 2020-03-29 01:46:00 22.26 kg/m2 [facility] [place] [facility] Systolic blood 2020-03-29 05:00:00 165 mm[Hg] Univer sity of pressure [place] [facility] Diastolic blood 2020-03-29 05:00:00 88 mm[Hg] Unive rsity of pressure [place] [facility] Heart rate 2020-03-29 05:00:00 82 /min [facility] [place] [facility] Respiratory rate 2020-03-29 05:00:00 20 /min [facility] [place] [facility] Oxygen saturation in 2020-03-29 05:00:00 96 /min [facility] of Arterial blood by [facility] Pulse oximetry Branch Body temperature 2020-03-29 01:46:00 37.56 [place] [facility] [place] [facility] Body weight 2020-03-29 01:46:00 51.71 kg [facility] [place] [facility] BMI 2020-03-29 01:46:00 22.26 kg/m2 [facility] [place] [facility] Systolic blood 2020-02-23 00:25:00 99 mm[Hg] Univer sity of pressure [place] [facility] Diastolic blood 2020-02-23 00:25:00 50 mm[Hg] Unive rsity of pressure [place] [facility] Heart rate 2020-02-23 00:25:00 77 /min [facility] [place] [facility] Body temperature 2020-02-23 00:25:00 36.61 [place] [facility] [place] [facility] Respiratory rate 2020-02-23 00:25:00 18 /min [facility] [place] [facility] Oxygen saturation in 2020-02-23 00:25:00 96 /min University of Arterial blood by [facility] Pulse [facility]xim[facility] Body weight 2020-02-22 08:18:00 53.479 kg [facility] BMI 2020-02-22 08:18:00 23.03 kg/m2 [facility] Systolic blood 2020-02-23 00:25:00 99 mm[Hg] [facility] Diastolic blood 2020-02-23 00:25:00 50 mm[Hg] [facility] Heart rate 2020-02-23 00:25:00 77 /min [facility] Body temperature 2020-02-23 00:25:00 36.61 Geovanna [facility] Respiratory rate 2020-02-23 00:25:00 18 /min [facility] Oxygen saturation in 2020-02-23 00:25:00 96 /min [facility] Arterial blood by [facility] Pulse oximetry [facility] Body weight 2020-02-22 08:18:00 53.479 kg [facility] BMI 2020-02-22 08:18:00 23.03 kg/m2 [facility] Systolic blood 2020-02-15 00:00:00 153 mm[Hg] [facility] Diastolic blood 2020-02-15 00:00:00 69 mm[Hg] [facility] Heart rate 2020-02-15 00:00:00 96 /min [facility] Respiratory rate 2020-02-15 00:00:00 14 /min [facility] Oxygen saturation in 2020-02-15 00:00:00 95 /min [facility] Arterial blood by [facility] Pulse [facility] Body temperature 2020-02-14 20:13:00 37.39 Geovanna [facility] Body weight 2020-02-14 20:13:00 52.164 kg [facility] BMI 2020-02-14 20:13:00 22.46 kg/m2 [facility] Systolic blood 2020-02-14 19:24:00 153 mm[Hg] [facility] Diastolic blood 2020-02-14 19:24:00 90 mm[Hg] [facility] Heart rate 2020-02-14 19:24:00 120 /min [facility] Body temperature 2020-02-14 19:22:00 36.83 Geovanna [facility] Respiratory rate 2020-02-14 19:22:00 21 /min [facility] Body height 2020-02-14 19:22:00 152.4 cm [facility] Body weight 2020-02-14 19:22:00 52.164 kg [facility] BMI 2020-02-14 19:22:00 22.46 kg/m2 [facility] Oxygen saturation in 2020-02-14 19:22:00 95 /min [facility] Arterial blood by [facility] Pulse [facility] Systolic blood 2020-01-29 16:22:00 171 mm[Hg] [facility] Diastolic blood 2020-01-29 16:22:00 79 mm[Hg] [facility] Heart rate 2020-01-29 16:21:00 100 /min [facility] Body temperature 2020-01-29 16:21:00 36.5 Geovanna [facility] Respiratory rate 2020-01-29 16:21:00 16 /min [facility] Body height 2020-01-29 16:21:00 152.4 cm [facility] Body weight 2020-01-29 16:21:00 53.071 kg [facility] BMI 2020-01-29 16:21:00 22.85 kg/m2 [facility] Oxygen saturation in 2020-01-29 16:21:00 100 /min [facility] [place] [facility] Systolic blood 2020-01-03 21:00:00 166 mm[Hg] [facility] Diastolic blood 2020-01-03 21:00:00 76 mm[Hg] [facility] Heart rate 2020-01-03 21:00:00 100 /min [facility] Respiratory rate 2020-01-03 21:00:00 17 /min [facility] Oxygen saturation in 2020-01-03 21:00:00 94 /min [facility] blood by [place] [employer] fel[facility] Pulse [facility]xim[facility] Body temperature 2020-01-03 16:45:00 36.72 Geovanna [facility] Body weight 2020-01-03 16:45:00 53.071 kg [facility] BMI 2020-01-03 16:45:00 22.11 kg/m2 [facility] Heart rate 2019-12-08 13:35:00 111 /min [facility] Respiratory rate 2019-12-08 13:35:00 20 /min [facility] Oxygen saturation in 2019-12-08 13:35:00 94 /min [facility] Arterial blood by [facility] feliciano Pulse oximetry Branch Systolic blood 2019-12-08 12:42:00 169 mm[Hg] [facility] Diastolic blood 2019-12-08 12:42:00 76 mm[Hg] [facility] Body temperature 2019-12-08 12:42:00 36.78 Geovanna [facility] Body height 2019-12-05 16:38:00 154.9 cm [facility] Body weight 2019-12-05 16:38:00 54.885 kg [facility] BMI 2019-12-05 16:38:00 22.86 kg/m2 [facility] Systolic blood 2019-09-20 20:34:00 164 mm[Hg] [facility] Diastolic blood 2019-09-20 20:34:00 76 mm[Hg] [facility] Heart rate 2019-09-20 20:34:00 80 /min Universi ty of [facility] Body temperature 2019-09-20 20:29:00 36.67 Geovanna Univ ersity of [facility] Branch Respiratory rate 2019-09-20 20:29:00 20 /min [facility] Body height 2019-09-20 20:29:00 157.5 cm [facility] [place] [facility] [place] Body weight 2019-09-20 20:29:00 52.345 kg [facility] BMI 2019-09-20 20:29:00 21.11 kg/m2 Universi [facility] of [facility] Oxygen saturation in 2019-09-20 20:29:00 98 /min [facility] Arterial blood by [facility] Pulse oximetry Branch Systolic blood 2019-08-31 22:02:00 159 mm[Hg] [facility] Diastolic blood 2019-08-31 22:02:00 79 mm[Hg] Unive rsity of pressure [facility] Heart rate 2019-08-31 22:02:00 101 /min Universi ty of [facility] Body temperature 2019-08-31 22:02:00 36.56 Geovanna Univ ersity of [facility] Body height 2019-08-31 22:02:00 153.7 cm [facility] [place] [facility] [place] Body weight 2019-08-31 22:02:00 52.617 kg [facility] BMI 2019-08-31 22:02:00 22.28 kg/m2 [facility] of [facility] Systolic blood 2019-03-29 19:16:00 157 mm[Hg] Univer sity of pressure [facility] Diastolic blood 2019-03-29 19:16:00 71 mm[Hg] Unive rsity of pressure [facility] Heart rate 2019-03-29 19:16:00 114 /min Universi ty of [facility] Body temperature 2019-03-29 19:16:00 36.17 Geovanna Univ ersity of [facility] Respiratory rate 2019-03-29 19:16:00 22 /min [facility] Body weight 2019-03-29 19:16:00 52.98 kg [facility] BMI 2019-03-29 19:16:00 18.85 kg/m2 [facility] Systolic blood 2019-03-23 19:02:00 141 mm[Hg] [facility] Diastolic blood 2019-03-23 19:02:00 69 mm[Hg] [facility] Heart rate 2019-03-23 19:02:00 80 /min [facility] Body temperature 2019-03-23 19:02:00 36.83 Geovanna [facility] Respiratory rate 2019-03-23 19:02:00 18 /min [facility] Body height 2019-03-23 19:02:00 167.6 cm [facility] Body weight 2019-03-23 19:02:00 52.527 kg [facility] BMI 2019-03-23 19:02:00 18.69 kg/m2 [facility] Systolic blood 2019-03-16 21:40:00 141 mm[Hg] [facility] Diastolic blood 2019-03-16 21:40:00 70 mm[Hg] [facility] Heart rate 2019-03-16 21:40:00 110 /min [facility] Body temperature 2019-03-16 20:57:00 37.22 Geovanna [facility] Body height 2019-03-16 20:57:00 154.9 cm [facility] Body weight 2019-03-16 20:57:00 54.432 kg [facility] BMI 2019-03-16 20:57:00 22.67 kg/m2 [facility] Procedures Procedure Date / Time Performing Source Performed Clinician EXTERNAL PROVIDER RECORDS 2020-12-05 Doctor Marian westfall of 05:01:00 Unassigned, No [facility] AUTHORIZATION TO RELEASE PHI TO 2020-11-20 [facility] 05:01:00 Unassigned, No [facility] Branch URINALYSIS 2020-03-29 Maribell Foster [facility] of 03:09:00 [facility] THYROID STIMULATING HORMONE 2020-03-29 Maribell Foster [facility] ersity of 03:04:00 [facility] COMP. METABOLIC PANEL (85291) 2020-03-29 Maribell Foster Un iversity of 03:04:00 [facility] CBC WITH DIFF 2020-03-29 Maribell Foster [place] of 03:04:00 [facility] GLYCOSYLATED HEMOGLOBIN (A1C) 2020-03-29 Maribell Foster Un iversity of 03:04:00 [facility] ECHO ROUTINE W/DOPPLER COLOR 2020-02-22 Pepe [facility] versity of 20:06:52 [facility] TROPONIN I 2020-02-22 [facility] of 12:39:00 [facility] TROPONIN I 2020-02-22 [facility] of 05:09:00 [facility] IRON PANEL 2020-02-22 [facility] of 05:09:00 [facility] GLYCOSYLATED HEMOGLOBIN (A1C) 2020-02-22 Pepe [facility] iversity of 05:09:00 [facility] TROPONIN I 2020-02-22 [facility] of 05:08:00 [facility] BASIC METABOLIC PANEL (NA, K, CL, 2020-02-22 [facility] of CO2, GLUCOSE, BUN, CREATININE, CA) 05:08:00 [facility] LIPID PANEL (42327)(TOTAL 2020-02-22 JessieMatilde matos [facility] sit of CHOLESTEROL, TRIGLYCERIDES, HDL) 05:08:00 [facility] CBC WITH DIFF 2020-02-22 [facility] of 05:08:00 [facility] VITAMIN B12, LEVEL 2020-02-22 [facility] 05:05:00 [facility] VITAMIN D, 25-OH 2020-02-22 Matilde Roman [place] of 05:05:00 [facility] PROCALCITONIN 2020-02-22 Matilde Roman [place] of 05:05:00 [facility] FECAL LEUKOCYTES 2020-02-22 [facility] 04:46:00 [facility] URINALYSIS 2020-02-22 Pe[facility] of 04:34:00 [facility] LEGIONELLA URINARY ANTIGEN TST 2020-02-22 PepeRebecca niversity of 04:34:00 [facility] PNEUMOCOCCAL ANTIGEN 2020-02-22 [facility] of 04:33:00 [facility] CLOSTRIDIUM DIFFICILE TOXIN 2020-02-22 PepeLeftyya [facility] ersity of 03:15:00 [facility] XR ABDOMEN 2 VW 2020-02-22 [facility] of 01:50:00 [facility] EKG-12 LEAD 2020-02-21 [facility] of 18:10:08 Unassigned, No [facility] EKG-12 LEAD 2020-02-21 Hahn, [facility] of 18:02:02 [facility] LACTIC ACID WHOLE BLOOD 2020-02-21 Singer [facility] ty of 17:01:00 [facility] PHOSPHORUS 2020-02-21 Jessie [facility] of 17:00:00 [facility] LIPASE 2020-02-21 Singer [facility] of 17:00:00 [facility] MAGNESIUM 2020-02-21 Jessie [facility] of 17:00:00 [facility] FERRITIN SERUM 2020-02-21 Pe[facility] of 17:00:00 [facility] TROPONIN I 2020-02-21 Hahn, [facility] of 17:00:00 [facility] COMP. METABOLIC PANEL (29433) 2020-02-21 Titi Hahn iversity of 17:00:00 [facility] LIPID PANEL ([id number])(TOTAL 2020-02-21 Pepe Rebecca [facility] sity of CHOLESTEROL, TRIGLYCERIDES, HDL) 17:00:00 [facility] XR CHEST 1 VW 2020-02-21 Singer [facility] of 15:31:44 [facility] COVID-19 (ID NOW RAPID TESTING) 2020-02-21 Hahn, [facility] of 15:23:00 [facility] CBC WITH DIFF 2020-02-21 Hahn, [facility] of 15:19:00 [facility] CONSENT/REFUSAL FOR DIAGNOSIS AND 2020-02-21 [facility] of TREATMENT 14:24:00 Unassigned, No [facility] XR CHEST 1 VW 2020-02-14 [facility] of 22:30:31 [facility] LACTIC ACID WHOLE BLOOD 2020-02-14 Richard [facility] ty of 22:23:00 [facility] URINALYSIS 2020-02-14 [facility] of 21:49:00 [facility] UNILATERAL VENOUS DUPLEX LOWER 2020-02-14 Rachelle Ramos niversity of EXTREMITY BY VASCULAR LAB 21:23:18 [facility] LIPASE 2020-02-14 Hahn, [facility] of 20:45:00 [facility] TROPONIN I 2020-02-14 Hahn, [facility] of 20:45:00 [facility] THYROID STIMULATING HORMONE 2020-02-14 Richard [facility] ersity of 20:45:00 [facility] COMP. METABOLIC PANEL ([id number]) 2020-02-14 [facility] i[facility] of 20:45:00 [facility] CBC WITH DIFF 2020-02-14 Hahn, [facility] of 20:45:00 [facility] PROTHROMBIN TIME / INR 2020-02-14 Singer [facility] y of 20:45:00 [facility] D-DIMER 2020-02-14 [facility] of 20:45:00 [facility] ACTIVATED PARTIAL THRMPLAS NAVDEEP 2020-02-14 Hahn, [facility] niversity of 20:45:00 [facility] EKG-12 LEAD 2020-02-14 [facility] of 20:43:52 [facility] EKG-12 LEAD 2020-02-14 Hahn, [facility] of 20:13:[address] [facility] [address] ABDOMEN PELVIS W CONTRAST 2020-01-03 Sb Canela Uni versity of 18:56:39 [facility] LIPASE 2020-01-03 Sb Canlea of 17:28:00 [facility] HEPATIC FUNCTION PANEL ([id number]) 2020-01-03 Sb Canela niversity of (ALB,T.PRO,BILI 17:28:00 [facility],BU/BC,ALT,AST,ALK PHOS) Branch BASIC METABOLIC PANEL (NA, K, CL, 2020-01-03 Merritt Canela [place] of CO2, GLUCOSE, BUN, CREATININE, CA) 17:28:00 [facility] CBC WITH DIFFERENTIAL 2020-01-03 Sb Canela of 17:28:00 [facility] PROTHROMBIN TIME / INR 2020-01-03 Sb Canelait y of 17:28:00 [facility] ACTIVATED PARTIAL THRMPLAS NAVDEEP 2020-01-03 Sb Canela niversity of 17:28:00 [facility] URINALYSIS 2020-01-03 Sb Canela [place] of 17:28:00 [facility] LACTIC ACID WHOLE BLOOD 2020-01-03 [facility] 17:28:00 [facility] NOTICE OF PRIVACY PRACTICES 2020-01-03 [facility] ersity of 16:34:44 Unassigned, No [facility] CONSENT/REFUSAL FOR DIAGNOSIS AND 2020-01-03 [facility] TREATMENT 16:34:21 Unassigned, No [facility] BASIC METABOLIC PANEL (NA, K, CL, 2019-12-06 Navid De Los Santos [facility] CO2, GLUCOSE, BUN, CREATININE, CA) 07:28:00 [facility] CBC WITH DIFFERENTIAL 2019-12-06 [facility] of 07:28:00 [facility] FL BARIUM SWALLOW ESOPHAGUS 2019-12-05 [facility] ersity of 20:07:00 [facility] PHOSPHORUS 2019-12-05 [facility] of 15:42:00 [facility] MAGNESIUM 2019-12-05 [facility] of 15:42:00 [facility] BASIC METABOLIC PANEL (NA, K, CL, 2019-12-05 [facility] CO2, GLUCOSE, BUN, CREATININE, CA) 15:42:00 [facility] CBC WITH DIFFERENTIAL 2019-12-05 [facility] of 15:42:00 [facility] LAPAROSCOPIC GLORY FUNDOPLICATION 2019-12-05 Jerald Sims [facility] of 11:50:00 [facility] ESOPHAGOGASTRODUODENOSCOPY 2019-12-05 Bobby Sims [facility] versity of 11:50:00 [facility] CONSENT/REFUSAL FOR DIAGNOSIS AND 2019-12-05 [facility] 10:43:31 Unassigned, No [facility] ASSIGNMENT OF BENEFITS 2019-12-05 Doctor [facility] y of 10:42:54 Unassigned, No [facility] HOME HEALTH - OTHER 2019-09-01 [facility] o f 06:01:00 Unassigned, No [facility] HOME HEALTH - OTHER 2019-08-24 Doctor [place] o f 06:01:00 Unassigned, No [facility] HOME HEALTH - OTHER 2019-08-11 [facility] o f 06:01:00 Unassigned, No [facility] - OTHER 2019-08-03 [facility] o f 06:01:00 Unassigned, No [facility] HOME HEALTH - OTHER 2019-07-18 [facility] o f 06:01:00 Unassigned, No [facility] HOME HEALTH [id number] 2019-07-12 [facility] of 06:01:00 Unassigned, No [facility] HOME [facility]ALTH - OTHER 2019-07-03 [facility] o f 06:01:00 Unassigned, No [facility] [place] EXTERNAL PROVIDER RECORDS 2019-04-02 Doctor Marian sity of 05:01:00 Unassigned, No [facility] ASSIGNMENT OF BENEFITS 2019-03-16 Doctor Universit y of 20:47:08 Unassigned, No [facility] [place] INSURANCE CORRESPONDENCE 2019-03-08 Doctor Ramirez ity of 05:01:00 Unassigned, No [facility] [place] Encounters Start End Encounter Admission Attending Care Care Encounter Source Date/Time Date/Time Type Type Clinicians Facility Department ID 2021-05-23 Emergency [facility] [id number] Univers 15:52:43 ity of [facility] 2021-05-23 Emergency [facility] [id number] Univers 09:29:50 ity of [facility] 2021-05-23 Emergency [facility] [id number] Univers 08:14:23 ity of [facility] 2021-05-22 Inpatient R BETHANY [facility] AYLIN [id number] Univers 13:04:05 BOBBY ity of [facility] 2022-06-09 2022-06-09 Outpatient R ADITYA [facility] [id number] Univers 15:00:00 15:00:00 CANDIDA ity of [facility] 2020-12-30 2020-12-30 Outpatient R ZULEYKA [facility] [id number] Univers 15:45:00 15:45:00 WONDIFUL ity o f [facility] 2020-12-05 2020-12-05 Orders Doctor YIP [id number] Univers 00:00:00 00:00:00 Only Unassigned, EVELYNE [id number] ity of [place] [facility] [id number] Varinder as [phone] [address] 2020-11-20 2020-11-20 [facility] [id number] Univers 10:48:51 11:42:30 Visit Sharla Pena [id number] ity [id number] [phone] [address] 2020-11-20 2020-11-20 [facility] [id number] Univers 10:30:00 10:30:00 SHARLA ity o f [facility] 2020-11-20 2020-11-20 Orders Doctor PHI [id number] Univers 00:00:00 00:00:00 Only Unassigned, EVELYNE [id number] ity of [place] [facility] [id number] Varinder as [phone] [address] 2020-11-19 2020-11-19 Telephone [facility] [id number] Univers 00:00:00 00:00:00 Wondiful [facility] [id number] ity of [place] [id number] Varinder as Professio [phone] [address] Office Building One 2020-05-30 2020-05-30 [facility] [id number] Univers 14:00:00 14:00:00 WONDIFUL ity o f [facility] 2020-04-26 2020-04-26 [facility] [id number] Univers 11:00:00 11:00:00 WONDIFUL ity o f [facility] 2020-03-28 2020-03-29 Emergency [facility] [id number] 20:48:00 00:17:00 [place]ibell [place] [id number] [place] [id number] [place] [id number] [id number] 2020-03-28 2020-03-29 Emergency [facility] [id number] Univers 20:48:00 00:17:00 Maribell Pena [id number] i ty [id number] [phone] [place] [id number] [place] 2020-02-23 2020-02-23 Transition Abelino Conteh [id number] 00:00:00 00:00:00 of Care Demetrio Maiery [id number] [place] [id number] [facility] 2020-02-23 2020-02-23 Transition Abelino Conteh [id number] [facility] 00:00:00 00:00:00 of Care Demetrio Breen Galeas [id number] ity of [id number] [phone] [facility] 403 [place] 2020-02-21 2020-02-22 Emergency Titi Hahn [facility] 1.2.840. [id number] 09:30:54 20:01:00 Prashanth Vo [id number] [place] [id number] [place] [phone] [facility] 2020-02-21 2020-02-22 Emergency Titi Hahn [facility] 1.2.840. [id number] [facility] 09:30:54 20:01:00 Prashanth Vo [id number] [id number] [phone] [place] [id number] [place] 2020-02-21 2020-02-21 Telemdanny Gardiner [facility] [id number] [facility] 07:44:24 10:48:34 ne Visit [place] Pena [id number] [id number] [facility] [phone] [facility] 2020-02-21 2020-02-21 Telemlorrainei Zuleyka [facility] [id number] 07:44:24 10:48:34 ne Visit [place] Pena [id number] [place] [id number] Professio [phone] nal 044 [facility] 2020-02-21 2020-02-21 Outpatient R ZULEYKA [facility] [id number] Univers 08:00:00 08:00:00 WONDIFUL ity o f [facility] 2020-02-14 2020-02-14 Emergency Richard, [facility] [id number] Univers 15:20:24 19:50:00 Rachelle [place] [id number] i ty [id number] [phone] [address] 2020-02-14 2020-02-14 Urgent Provider, rA Urgent Care [facility] [id number] Univers 14:13:11 15:38:31 Care Jeffry Gardinermalu [facility] [id number] 0 ity of [place] [id number] Varinder as Professio [phone] [address] Office [address] One 2020-02-14 2020-02-14 Surgical Instrument Technician 2, Adc Lab [facility] 1.2.840.114 [id number] Univers 13:39:57 13:54:57 Visit [place], [place] Jamshid [place] [id number]. 10 [id number] [phone] [facility] 2020-02-14 2020-02-14 Outpatient R [facility] [id number] Univers 13:30:00 13:30:00 ity of [facility] 2020-02-14 2020-02-14 Case Zuleyka [facility] [id number] Univers 00:00:00 00:00:00 Management Jeffrymalu Jamshid [place] [id number] ity of [id number] [phone] [facility] 044 [facility] 2020-02-08 2020-02-08 Telemedici Zuleyka [facility] [id number] Univers 08:02:08 10:54:58 ne Visit Jeffrydiful A [place] [id number] [place] [phone] Ak dical nal 044 [facility] 2020-02-08 2020-02-08 Outpatient R ZULEYKA [facility] [id number] Univers 10:15:00 10:15:00 WONDIFUL ity o f [facility] 2020-02-04 2020-02-04 Telephone Zo Easley 1.2.840.114 [id number] Univers 00:00:00 00:00:00 EVELYNE 350.1.13.10 it y of [facility] 4.2.7.2.686 Varinder as [phone] [facility] [address] [place] 2020-01-30 2020-01-30 [facility] [id number] Univers 16:15:00 16:15:00 WONDIFUL ity o f [facility] 2020-01-29 2020-01-29 Urgent Pob1, Acute Care Clinic [facility] 1. 2.840.114 [id number] Univers 11:01:47 11:21:47 Care [facility] 350.1.13.10 ity of [place] 4.2.7.2.686 Varinder as Professio [phone] [address] Office Building One 2020-01-29 2020-01-29 Outpatient R [facility] [id number] Univers 11:20:00 11:20:00 ity of [facility] 2020-01-03 2020-01-03 Emergency X [facility] ERT [id number] Univers 11:46:19 16:35:00 SB ity of [facility] 2020-01-03 2020-01-03 [facility] 1.2.116.716 [id number] Univers 11:46:19 16:35:00 Sb Pena 350.1.13.10 i [place] [phone] [facility] [address] [place] 2020-01-03 2020-01-03 Orders Doctor YIP 1.2.840.114 [id number] Univers 00:00:00 00:00:00 Only Unassigned, EVELYNE 350.1.13.10 ity of [place] [facility] 4.2.7.2.686 Varinder as [phone] [facility] [address] 2019-12-25 2019-12-25 Outpatient R ZULEYKA [facility] [id number] Univers 13:00:00 13:00:00 WONDIFUL ity o f [facility] 2019-12-22 2019-12-22 Outpatient R BETHANY [facility] [id number] Univers 13:45:00 13:45:00 BOBBY ity of [facility] 2019-12-14 2019-12-14 [facility] 1.2.840.114 [id number] Univers 00:00:00 00:00:00 Wondiful A Health 350.1.13.10 ity of [place] 4.2.7.2.686 Varinder [place] Professio [phone] [address] One 2019-12-12 2019-12-12 [facility] 1.2.840.114 [id number] Univers 00:00:00 00:00:00 Wondiful A [place] 350.1.13.10 [place] [phone] [facility] 044 [facility] 2019-12-11 2019-12-11 Transition Alfredo Contehsocorro 1.2.840.114 [id number] Univers 00:00:00 00:00:00 of Care Demetrio A Galeas 350.1.13.10 it[place] of [place] [phone] [facility] [address] 2019-12-05 2019-12-08 Inpatient R BETHANY [facility] SCT [id number] Univers 05:41:49 15:24:00 BOBBY ity of [facility] 2019-12-05 2019-12-08 [facility] Britta Sims 1.2.934.804 [id number] Univers 05:41:49 15:24:00 Encounter Bobby C [place] 350.1.13.10 ity of [facility] 4.2.7.2.686 Varinder as [phone] [facility] [address] 2019-12-04 2019-12-04 Laboratory Only, Adc Test [facility] 1.2.840. 114 [id number] Univers 13:54:20 14:00:22 Only Bobby Sims [place] 350.1.13.10 [place] [phone] Ak dical nal 353 [facility] 2019-12-04 2019-12-04 Outpatient R BETHANY [facility] [id number] Univers 13:45:00 13:45:00 BOBBY ity of [facility] 2019-11-27 2019-11-27 [facility] 1.2.840.114 [id number] Univers 00:00:00 00:00:00 Wondiful A Health 350.1.13.10 ity of [place] 4.2.7.2.686 Varinder as Professio [phone] Ak dical nal [address] [place] Office [facility] One 2019-11-21 2019-11-21 Prep For Catrenettat, UNIVERSIT 1.2.840.114 [id number] Univers 00:00:00 00:00:00 Surgery Kalyn Y HEALTH 350.1.13.10 i ty [place] [phone] [address] 2019-11-21 2019-11-21 Case Catrett, UNIVERSIT 1.2.840.114 [id number] Univers 00:00:00 00:00:00 Management Kalyn Y HEALTH 350.1.13.10 ity [place] [phone] [address] 2019-11-21 2019-11-21 Case Catrett, UNIVERSIT 1.2.840.114 [id number] Univers 00:00:00 00:00:00 Management Kalyn Y HEALTH 350.1.13.10 ity [place] [phone] [address] 2019-11-13 2019-11-13 [facility] 1.2.840.114 [id number] Univers 00:00:00 00:00:00 Wondiful A Health 350.1.13.10 ity of [place] 4.2.7.2.686 Varinder as Professio [phone] Ak flor erwin [address] [place] [address] One 2019-10-05 2019-10-05 Telephone LUIS A PersaudIT 1.2.840.114 [id number] Univers 00:00:00 00:00:00 Kalyn Y HEALTH 350.1.13.10 i ty [place] [phone] [address] 2019-09-27 2019-09-27 Case LUIS A PersaudIT 1.2.840.114 [id number] Univers 00:00:00 00:00:00 Management Kalyn Y HEALTH 350.1.13.10 ity [place] [phone] [address] 2019-09-22 2019-09-22 Prep For LUIS A PersaudIT 1.2.840.114 [id number] Univers 00:00:00 00:00:00 Surgery Kalyn Y HEALTH 350.1.13.10 i ty of [place] [phone] [address] 2019-09-20 2019-09-20 Office MADAI Sims 1.2.840.114 [id number] Univers 14:19:19 14:46:30 Visit Bobby Pena 350.1.13.10 [place] [phone] Ak [place] 185 [facility] 2019-09-20 2019-09-20 Outpatient R BETHANY MEMOSES [facility] [id number] Univers 14:15:00 14:15:00 BOBBY ity of [facility] 2019-09-01 2019-09-01 Orders Doctor YIP 1.2.840.114 [id number] Univers 00:00:00 00:00:00 Only Unassigned, EVELYNE 350.1.13.10 ity of [place] [facility] 4.2.7.2.686 Varinder as [phone] [address] 2019-08-31 2019-08-31 Office Zuleyka MEMOSES 1.2.840.114 [id number] Univers 15:53:30 16:20:15 Visit Wondiful A Health 350.1.13.10 ity of [place] 4.2.7.2.686 Varinder as Jennifer [phone] [address] Office Building One 2019-08-24 2019-08-24 Orders Doctor PHI 1.2.840.114 [id number] Univers 00:00:00 00:00:00 Only Unassigned, EVELYNE 350.1.13.10 ity of [place] [facility] 4.2.7.2.686 Varinder as [phone] [address] 2019-08-11 2019-08-11 Orders Doctor PHI 1.2.840.114 [id number] Univers 00:00:00 00:00:00 Only Unassigned, EVELYNE 350.1.13.10 ity of [place] [facility] 4.2.7.2.686 Varinder as [phone] [address] 2019-08-03 2019-08-03 Orders Doctor PHI Deluna.2.840.114 [id number] Univers 00:00:00 00:00:00 Only Unassigned, EVELYNE 350.1.13.10 ity of [place] [facility] 4.2.7.2.686 Varinder as [phone] [address] 2019-07-18 2019-07-18 Orders Doctor PHI Deluna.2.840.114 [id number] Univers 00:00:00 00:00:00 Only Unassigned, EVELYNE 350.1.13.10 ity of [place] [facility] 4.2.7.2.686 Varinder as [phone] [address] 2019-07-14 2019-07-14 Outpatient R ZULEYKA, [facility] [id number] Univers 15:23:29 19:14:00 WONDIFUL ity o f [facility] 2019-07-12 2019-07-12 Orders Doctor PHI Deluna.2.840.114 [id number] Univers 00:00:00 00:00:00 Only Unassigned, EVELYNE 350.1.13.10 ity of [place] [facility] 4.2.7.2.686 Varinder as [phone] [address] 2019-07-03 2019-07-03 Orders Doctor PHI 1.2.840.114 [id number] Univers 00:00:00 00:00:00 Only Unassigned, EVELYNE 350.1.13.10 ity of [place] [facility] 4.2.7.2.686 Varinder as [phone] [address] 2019-04-03 2019-04-03 Telephone [facility] 1.2.840.114 [id number] Univers 00:00:00 00:00:00 Wondiful A Health 350.1.13.10 ity of [place] 4.2.7.2.686 Varinder as Professio [phone] [facility] 044 [facility] 2019-04-02 2019-04-02 Orders Doctor PHI 1.2.840.114 [id number] Univers 00:00:00 00:00:00 Only Unassigned, EVELYNE 350.1.13.10 ity of [place] [facility] 4.2.7.2.686 Varinder as [phone] [address] 2019-03-29 2019-03-29 [facility] 1.2.840.114 [id number] [facility] 14:03:52 14:50:17 Visit Bobby Pena 350.1.13.10 [place] [phone] [facility] 185 [facility] 2019-03-24 2019-03-24 Telephone [facility] 1.2.840.114 [id number] Univers 00:00:00 00:00:00 Wondiful A Health 350.1.13.10 ity of [place] 4.2.7.2.686 Varinder as Professio [phone] [facility] 044 [facility] 2019-03-23 2019-03-23 Office Hunter [facility] 1.2.760.835 [id number] Univers 13:49:44 15:19:34 Visit Ping Pena 350.1.13.10 i [place] [phone] [facility] 377 [facility] 2019-03-23 2019-03-23 Surgical Instrument Technician Lab, Adc Fam Pob I [place] 1.2. 840.114 [id number] [facility] 13:25:06 13:41:58 Visit [facility] 350.1.13.1 0 ity of [place] 4.2.7.2.686 Varinder as Professio [phone] [address] Office [facility] One 2019-03-16 2019-03-16 Office Zuleyka [facility] 1.2.840.114 [id number] [facility] 15:47:43 16:37:58 Visit [facility] 350.1.13.10 ity of [place] 4.2.7.2.686 Varinder as Professio [phone] [address] Office [facility] One 2019-03-16 2019-03-16 Orders Doctor PHI 1.2.840.114 [id number] Univers 00:00:00 00:00:00 Only Unassigned, EVELYNE 350.1.13.10 ity of [place] [facility] 4.2.7.2.686 Varinder as [phone] [facility] feliciano [address] [place] [address] 2019-03-15 2019-03-15 Telephone Zuleyka [facility] 1.2.840.114 [id number] Univers 00:00:00 00:00:00 Phuongful [facility] 350.1.13.10 ity of [place] 4.2.7.2.686 Varinder as Professio [phone] [address] One 2019-03-08 2019-03-08 Orders Doctor PHI 1.2.840.114 [id number] Univers 00:00:00 00:00:00 Only Unassigned, EVELYNE 350.1.13.10 ity of [place] [facility] 4.2.7.2.686 Varinder as [phone] [address] Results Test Description Test Time Test Comments Results Result Comments Source GLYCOSYLATED HEMOGLOBIN (A1C) 2020-03-29 04:32:00 Test Item Value Reference Range Interpretation Comme nts HGB A1C (test code = 4548-4) 5.4 % 4-6 KIM (test code = KIM) %A1C (NGSP) Interpretation (ADA)4.8-5.6 ? ? Normal or (Non-Diabetic Range)5.7-6.4 ? ? Increased Risk (Pre-Diabetic)>6.5 ?Diabetes Indicated Lab Interpretation (test code = Normal 27683-7) [facility] [id number] 04:04:00 Test Item Value Reference Range Interpretation Comments TSH (test code = See_Comment [Automated message] 5510762276) The system Krush generated this result transmitted ref erence range: 0.45 - 4 .70 mIU/L. The refe rence range was not u sed to interpret this result as normal/abnor mal. Lab Interpretation (test Normal code = 79255-0) [facility]2020-[facility]-04 03:38:00 Test Item Value Reference Range Interpretation Comments APPEARANCE (test code = Clear Clear 2180925055) COLOR (test code = Yellow Yellow 3498014240) PH (test code = 4.8-8.0 0801977632) SP GRAVITY (test code = 1.003-1.030 4650011903) GLU U QUAL (test code = 50 mg/dL Normal A 2531611241) BLOOD (test code = 1+ Negative A 3410696630) KETONES (test code = Negative Negative 0813295952) PROTEIN (test code = Negative Negative 2887-8) UROBILIN (test code = Normal Normal 6939984770) BILIRUBIN (test code = Negative Negative 4352771507) NITRITE (test code = Negative Negative 2199405238) LEUK NASRIN (test code = Negative Negative 8375843950) RBC/HPF (test code = See_Comment [Autom ated message] 1717202405) The system Krush generated this result transmitted ref erence range: 0 - 3 HP F. The reference range was not used to int erpret this result as normal/abnormal . WBC/HPF (test code = See_Comment [Autom ated message] 7961762003) The system Krush generated this result transmitted ref erence range: 0 - 5 HP F. The reference range was not used to int erpret this result as normal/abnormal . BACTERIA (test code = Few Negative A 8480896557) MUCOUS (test code = Slight Negative LPF A 4939783548) SQ EPITH (test code = HPF 8129895166) HYAL CAST (test code = See_Comment H [Aut omated message] 1000944820) The system Krush generated this result transmitted ref erence range: <=2 LPF. The reference range was not used to int erpret this result as normal/abnormal . Lab Interpretation (test Abnormal code = 00685-7) [facility]OLIC PANEL (65864)2020-03-29 03:34:00 Test Item Value Reference Range Interpretation Comments NA (test code = 141 mmol/L 135-145 6155473861) K (test code = 3.9 mmol/L 3.5-5 9747829657) CL (test code = 111 mmol/L 98-108 H 9582367282) CO2 TOTAL (test code = 21 mmol/L 23-31 L 6970653270) AGAP (test code = 2-16 0430317829) BUN (test code = 18 mg/dL 7-23 6208245717) GLUCOSE (test code = 209 mg/dL 70-110 H 7010834075) CREATININE (test code = 1.03 mg/dL 0.5-1.04 6809092982) TOTAL BILI (test code = 0.7 mg/dL 0.1-1.4 1335381625) CALCIUM (test code = 9.1 mg/dL 8.6-10.6 6406899783) T PROTEIN (test code = 6.6 g/dL 6.3-8.2 8735939935) ALBUMIN (test code = 4.0 g/dL 3.5-5 9482104817) ALK PHOS (test code = 111 U/L 34-122 6852313123) ALTv (test code = 15 U/L 5-35 1742-6) AST(SGOT) (test code = 27 U/L 13-40 2088705432) eGFR Calculation mL/min/1.73m2 (Non-) (test code = 6331353128) eGFR Calculation mL/min/1.73m2 () (test code = 9239409155) KIM (test code = KIM) Association of [...] tests). Lab Interpretation Abnormal (test code = 53076-9) [facility] WITH [id number] 03:19:00 Test Item Value Reference Range Interpretation Comments WBC (test code = See_Comment H [Automated 1180-2) message] The sy stem which generated this result transmitted reference range : 4.30 - 11.10 10*3/?L. The reference range was not used to interpret this result as normal/abnormal . RBC (test code = See_Comment [Automated 486-8) message] The sy stem which generated this [...] RDW-SD (test code = 45.0 fL 39-49.9 75699-5) RDW-CV (test code = 13.1 % 12-15.5 788-0) PLT (test code = See_Comment [Automated 777-3) message] The sy stem which generated this result transmitted reference range : 166 - 358 10*3/ ?L. The reference r lucas was not used to interpret this result as normal/abnormal . MPV (test code = 10.0 fL 9.5-12.9 42974-4) NRBC/100 WBC (test See_Comment [Automat ed code = 4943993597) message] The system which generated this result transmitted reference range : 0.0 - 10.0 /100 WBCs. The refer ence range was not u sed to interpret th is result as normal/abnormal . NRBC x10^3 (test code <0.01 See_Comment [Auto mated = 1566888677) message] The s ystem which generated this result transmitted reference range : 10*3/?L. The reference range was not used to interpret this result as normal/abnormal . GRAN MAT (NEUT) % 80.1 % (test code = 770-8) IMM GRAN % (test code 0.40 % = 6454442529) LYMPH % (test code = 13.8 % 736-9) MONO % (test code = 5.2 % 5905-5) EOS % (test code = 0.2 % 713-8) BASO % (test code = 0.3 % 706-2) GRAN MAT x10^3(ANC) 9.51 10*3/uL 1.88-7.09 H (test code = 0866846982) IMM GRAN x10^3 (test 0.05 10*3/uL 0-0.06 code = 6782017295) LYMPH x10^3 (test code 1.64 10*3/uL 1.32-3.29 = 731-0) MONO x10^3 (test code 0.62 10*3/uL 0.33-0.92 = 742-7) EOS x10^3 (test code = <0.03 0.03-0.39 L 711-2) BASO x10^3 (test code 0.04 10*3/uL 0.01-0.07 = 704-7) Lab Interpretation Abnormal (test code = 93347-5) [facility]NEUMOCOCCAL [id number] 18:02:00 Test Item Value Reference Range Interpretation Comments S. pneumoniae antigen (test code = Negative Negative 4877773851) Lab Interpretation (test code = Normal 32833-3) [facility] HospitalProcalcitonin2020-07-30 17:00:00 Test Item Value Reference Range Interpretation Comments Procalcitonin (test 0.04 ng/mL <0.07 code = 5443458247) KIM (test code = KIM) INTERPRETATION OF [...] lung abscess/empyema. For further information please refer to:[email or web address] Lab Interpretation Normal (test code = 92031-2) [facility] HospitalFECAL [id number] 16:39:00 Test Item Value Reference Range Interpretation Comments Fecal Leukocytes (test code = Negative Negative 0496298439) Lab Interpretation (test code = Normal 62287-5) [facility] HospitalVITAMIN B12, [id number] 16:37:00 Test Item Value Reference Range Interpretation Comments VIT B12 (test code = 247 pg/mL 240-930 8414985894) KIM (test code = KIM) Biotin has been reported to cause a positive bias, interpret results relative to patient's use of biotin. Lab Interpretation (test Normal code = 21758-3) [facility] D, [id number] 16:15:00 Test Item Value Reference Range Interpretation Comments VIT D 25OH (test code = <13 25-80 L 83867-9) KIM (test code = KIM) Deficiency: <20 ng/mLInsufficiency: 20-24 ng/mLOptimal: 25-80 ng/mL Lab Interpretation (test Abnormal code = 20737-4) [facility] HospitalLEGIONELLA URINARY ANTIGEN [id number] 15:57:00 Test Item Value Reference Range Interpretation Comments Legionella Urinary Negative Negative Antigen (test code = 9437215717) KIM (test code = KIM) Negative for [...] test. Lab Interpretation (test Normal code = 11907-5) [facility] HospitalTroponin [id number] 14:53:00 Test Item Value Reference Range Interpretation Comments TROPONIN I (test 0.029 ng/mL See_Comment [Automated code = 4256025714) message] The system which generated this result [...] ? Lab Interpretation Normal (test code = 70236-9) [facility] HospitalXR ABDOMEN 2 [id number] 12:54:39HISTORY: Abdominal pain. FINDINGS: AP supine and [...] organomegaly. No aggressive bone lesions.CONCLUSIONS: No acute findings..[facility] Glycosylated Hemoglobin (A1C)2020-02-22 07:44:00 Test Item Value Reference Range Interpretation Comments HGB A1C (test code = 5.4 % 4-6 4548-4) KIM (test code = KIM) %A1C (NGSP) Interpretation (ADA)4.8-5.6 ? ? Normal or (Non-Diabetic Range)5.7-6.4 ? ? Increased Risk (Pre-Diabetic)>6.5 ?Diabetes Indicated Lab Interpretation Normal (test code = 36114-3) [facility] HospitalLIPID PANEL (60311)(TOTAL CHOLESTEROL, TRIGLYCERIDES, HDL)2020-02-22 07:39:00 Test Item Value Reference Range Interpretation Comments CHOL (test code = 196 mg/dL 120-200 5058192316) HDL (test code = 49 mg/dL >50 L 4276502216) HDLC RATIO (test code = See_Comment [Au tomated message] 4074994287) The system Krush generated this result transmit leann reference range : <=4.5. The refe rence range was not u sed to interpret th is result as normal/abnormal . TRIG (test code = 121 mg/dL 30-170 7894939758) LDL CHOL (test code = 123 mg/dL See_Comment [Auto mated message] 14225-9) The system Krush generated this result transmit leann reference range : <=160. The refe rence range was not u sed to interpret th is result as normal/abnormal . VLDL (test code = 24 mg/dL 5-60 7054350537) Lab Interpretation (test Abnormal code = 88806-0) [facility] HospitalIRON [id number] 07:37:00 Test Item Value Reference Range Interpretation Comments IRON (test code = 2969209567) 50 ug/dL 50-160 TIBC (test code = 3887544694) 243 ug/dL 250-410 L % FE SAT (test code = 4499162417) 21 % 20-50 Lab Interpretation (test code = Abnormal 84979-9) [facility] HospitalCLOSTRIDIUM DIFFICILE [id number] 06:39:00 Test Item Value Reference Range Interpretation Comments Clostridioides (Clostridium) Negative Negative difficile (test code = 49461-7) Lab Interpretation (test code = Normal 30243-1) [facility] Metabolic Panel (NA, K, CL, CO2, GLUCOSE, BUN, CREATININE, CA)2020-02-22 06:26:00 Test Item Value Reference Range Interpretation Comments NA (test code = 135 mmol/L 135-145 6227848060) K (test code = 4.4 mmol/L 3.5-5 5633258578) CL (test code = 106 mmol/L 98-108 0356810429) CO2 TOTAL (test code = 24 mmol/L 23-31 1130136697) AGAP (test code = 2-16 0678210386) BUN (test code = 23 mg/dL 7-23 3440323415) GLUCOSE (test code = 119 mg/dL 70-110 H 2427262027) CREATININE (test code = 0.90 mg/dL 0.5-1.04 3299698779) CALCIUM (test code = 8.7 mg/dL 8.6-10.6 7109865473) eGFR Calculation mL/min/1.73m2 (Non-) (test code = 6941511645) eGFR Calculation mL/min/1.73m2 () (test code = 9702040647) KIM (test code = KIM) Association of [...] tests). Lab Interpretation Abnormal (test code = 43636-8) [facility] [id number] 06:24:00 Test Item Value Reference Range Interpretation Comments TROPONIN I (test 0.033 ng/mL See_Comment [Automated code = 0249775749) message] The system which generated this result [...] ? Lab Interpretation Normal (test code = 70948-0) [facility] HospitalTroponin [id number] 06:23:00 Test Item Value Reference Range Interpretation Comments TROPONIN I (test 0.032 ng/mL See_Comment [Automated code = 1050869084) message] The system which generated this result [...] ? Lab Interpretation Normal (test code = 89569-6) [facility]IS2020-07-30 05:49:00 Test Item Value Reference Range Interpretation Comments APPEARANCE (test code = Clear Clear 4666742836) COLOR (test code = Straw Yellow A 3954822039) PH (test code = 4.8-8.0 5281361179) SP GRAVITY (test code = 1.003-1.030 7478596287) GLU U QUAL (test code = Normal Normal 7982594340) BLOOD (test code = 1+ Negative A 8079107229) KETONES (test code = Negative Negative 1143354328) PROTEIN (test code = Negative Negative 2887-8) UROBILIN (test code = Normal Normal 3705603153) BILIRUBIN (test code = Negative Negative 3499174403) NITRITE (test code = Negative Negative 0719144517) LEUK NASRIN (test code = Negative Negative 3293848271) RBC/HPF (test code = See_Comment [Autom ated message] 9506287291) The system Krush generated this result transmitted ref erence range: 0 - 3 HP F. The reference range was not used to int erpret this result as normal/abnormal . WBC/HPF (test code = <1 See_Comment [Autom ated message] 2024040497) The system Krush generated this result transmitted ref erence range: 0 - 5 HP F. The reference range was not used to int erpret this result as normal/abnormal . BACTERIA (test code = Negative Negative 6339879082) MUCOUS (test code = Slight Negative LPF A 5473110474) SQ EPITH (test code = <1 HPF 1884988345) Lab Interpretation (test Abnormal code = 28255-7) [facility] with [id number] 05:33:00 Test Item Value Reference Range Interpretation Comments WBC (test code = See_Comment H [Automated 90-2) message] The sy stem which generated this result transmitted reference range : 4.30 - 11.10 10*3/?L. The reference range was not used to interpret this result as normal/abnormal . RBC (test code = See_Comment [Automated 962-8) message] The sy stem which generated this [...] RDW-SD (test code = 48.6 fL 39-49.9 28571-7) RDW-CV (test code = 13.9 % 12-15.5 788-0) PLT (test code = See_Comment [Automated 777-3) message] The sy stem which generated this result transmitted reference range : 166 - 358 10*3/ ?L. The reference r lucas was not used to interpret this result as normal/abnormal . MPV (test code = 10.2 fL 9.5-12.9 70745-3) NRBC/100 WBC (test See_Comment [Automat ed code = 1848293952) message] The system which generated this result transmitted reference range : 0.0 - 10.0 /100 WBCs. The refer ence range was not u sed to interpret th is result as normal/abnormal . NRBC x10^3 (test code <0.01 See_Comment [Auto mated = 6340241248) message] The s ystem which generated this result transmitted reference range : 10*3/?L. The reference range was not used to interpret this result as normal/abnormal . GRAN MAT (NEUT) % 58.2 % (test code = 770-8) IMM GRAN % (test code 0.70 % = [id number]) LYMPH % (test code = 32.2 % 736-9) MONO % (test code = 7.3 % 5905-5) EOS % (test code = 1.2 % 713-8) BASO % (test code = 0.4 % 706-2) GRAN MAT x10^3(ANC) 6.62 10*3/uL 1.88-7.09 (test code = [id number]) IMM GRAN x10^3 (test 0.08 10*3/uL 0-0.06 H code = [id number]) LYMPH x10^3 (test code 3.66 10*3/uL 1.32-3.29 H = 731-0) MONO x10^3 (test code 0.83 10*3/uL 0.33-0.92 = 742-7) EOS x10^3 (test code = 0.14 10*3/uL 0.03-0.39 711-2) BASO x10^3 (test code 0.04 10*3/uL 0.01-0.07 = 704-7) Lab Interpretation Abnormal (test code = 68167-8) [facility] 04[facility]09:00 Test Item Value Reference Range Interpretation Comments MAGNESIUM (test code = 6134543997) 2.1 mg/dL 1.7-2.4 Lab Interpretation (test code = Normal 03275-9) [facility]OS[facility]US2020-07-30 04:08:00 Test Item Value Reference Range Interpretation Comments PHOSPHORUS (test code = 8450788684) 3.6 mg/dL 2.5-5 Lab Interpretation (test code = Normal 05163-3) [facility] HospitalFERRITIN [id number] 01:37:00 Test Item Value Reference Range Interpretation Comments FERRITIN (test code = 36.4 ng/mL 11-264 7059203803) KIM (test code = KIM) Biotin has been reported to cause a negative bias, interpret results relative to patient's use of biotin. Lab Interpretation (test Normal code = 37292-0) [facility] HospitalLipid Panel (Total Cholesterol, Triglycerides, HDL)2020-02-21 23:53:00 Test Item Value Reference Range Interpretation Comments CHOL (test code = 200 mg/dL 120-200 3245190784) HDL (test code = 48 mg/dL >50 L 2598487923) HDLC RATIO (test code = See_Comment [Au tomated message] 8408038210) The system Krush generated this result transmit leann reference range : <=4.5. The refe rence range was not u sed to interpret th is result as normal/abnormal . TRIG (test code = 101 mg/dL 30-170 1652302491) LDL CHOL (test code = 132 mg/dL See_Comment [Auto mated message] 07543-6) The system Krush generated this result transmit leann reference range : <=160. The refe rence range was not u sed to interpret th is result as normal/abnormal . VLDL (test code = 20 mg/dL 5-60 8307049134) Lab Interpretation (test Abnormal code = 29289-0) [facility]TROP[facility] [id number] 17:31:00 Test Item Value Reference Range Interpretation Comments TROPONIN I (test 0.035 ng/mL See_Comment H [Automated code = 9160648930) message] The system which generated this result [...] ? Lab Interpretation Abnormal (test code = 87938-4) [facility] HospitalCOMP. METABOLIC PANEL (59193)2020-02-21 17:21:00 Test Item Value Reference Range Interpretation Comments NA (test code = 137 mmol/L 135-145 2179037134) K (test code = 4.6 mmol/L 3.5-5 4151296083) CL (test code = 111 mmol/L 98-108 H 4343077284) CO2 TOTAL (test code = 22 mmol/L 23-31 L 9088506556) AGAP (test code = 2-16 5159432466) BUN (test code = 25 mg/dL 7-23 H 7737056777) GLUCOSE (test code = 124 mg/dL 70-110 H 5865358755) CREATININE (test code = 0.86 mg/dL 0.5-1.04 5120134497) TOTAL BILI (test code = 0.6 mg/dL 0.1-1.9 2952998811) CALCIUM (test code = 8.1 mg/dL 8.6-10.6 L 3967289301) T PROTEIN (test code = 5.8 g/dL 6.3-8.2 L 3214774795) ALBUMIN (test code = 3.2 g/dL 3.5-5 L 9789594355) ALK PHOS (test code = 103 U/L 34-122 7768315107) ALTv (test code = 33 U/L 5-35 1742-6) AST(SGOT) (test code = 27 U/L 13-40 3471698229) eGFR Calculation mL/min/1.73m2 (Non-) (test code = 0959894659) eGFR Calculation mL/min/1.73m2 () (test code = 9269807723) KIM (test code = KIM) Association of [...] tests). Lab Interpretation Abnormal (test code = 83731-3) [facility]LIP[facility]2020-07-[facility] 17:20:00 Test Item Value Reference Range Interpretation Comments LIPASE (test code = 8807348661) 190 U/L 0-220 Lab Interpretation (test code = Normal 58037-0) [facility] HospitalLactic Acid Whole [id number] 17:06:00 Test Item Value Reference Range Interpretation Comments LACTIC ACID (test code = 1.18 mmol/L 0.3-2.6 8532561361) Lab Interpretation (test code = Normal 32330-6) [facility] HospitalCOVID-19 (ID NOW RAPID TESTING)2020-02-21 16:01:00 Test Item Value Reference Range Interpretation Comments SARS-CoV-2 Rapid ID NOW Not Detected Not Detected (test code = 03119-0) KIM (test code = KIM) ID NOW COVID-19 Assay is an isothermal nucleic acid amplification test intended for the qualitative detection of nucleic acid from SARS-CoV-2 viral RNA in nasopharyngeal (SPECIAL EDUCATION CASE MANAGER) specimens. It is used under Emergency Use [...] indicated. Lab Interpretation Normal (test code = 23919-8) [facility] HospitalXR CHEST 1 [id number] 15:51:41HISTORY: Shortness of breath. TECHNIQUE: Portable AP [...] upper abdomen.CONCLUSIONS: No signs of acute cardiopulmonary disease.[facility] WITH [id number] 15:41:00 Test Item Value Reference Range Interpretation Comments WBC (test code = See_Comment H [Automated 1390-2) message] The sy stem which generated this result transmitted reference range : 4.30 - 11.10 10*3/?L. The reference range was not used to interpret this result as normal/abnormal . RBC (test code = See_Comment [Automated 859-8) message] The sy stem which generated this [...] RDW-SD (test code = 47.2 fL 39-49.9 08281-7) RDW-CV (test code = 14.1 % 12-15.5 788-0) PLT (test code = See_Comment [Automated 777-3) message] The sy stem which generated this result transmitted reference range : 166 - 358 10*3/ ?L. The reference r lucas was not used to interpret this result as normal/abnormal . MPV (test code = 10.7 fL 9.5-12.9 91915-3) NRBC/100 WBC (test See_Comment [Automat ed code = 7048174382) message] The system which generated this result transmitted reference range : 0.0 - 10.0 /100 WBCs. The refer ence range was not u sed to interpret th is result as normal/abnormal . NRBC x10^3 (test code <0.01 See_Comment [Auto mated = 7773465787) message] The s ystem which generated this result transmitted reference range : 10*3/?L. The reference range was not used to interpret this result as normal/abnormal . GRAN MAT (NEUT) % 65.3 % (test code = 770-8) IMM GRAN % (test code 1.20 % = 4788384936) LYMPH % (test code = 23.9 % 736-9) MONO % (test code = 7.3 % 5905-5) EOS % (test code = 1.8 % 713-8) BASO % (test code = 0.5 % 706-2) GRAN MAT x10^3(ANC) 7.63 10*3/uL 1.88-7.09 H (test code = 5781014592) IMM GRAN x10^3 (test 0.14 10*3/uL 0-0.06 H code = 4183075077) LYMPH x10^3 (test code 2.79 10*3/uL 1.32-3.29 = 731-0) MONO x10^3 (test code 0.85 10*3/uL 0.33-0.92 = 742-7) EOS x10^3 (test code = 0.21 10*3/uL 0.03-0.39 711-2) BASO x10^3 (test code 0.06 10*3/uL 0.01-0.07 = 704-7) Lab Interpretation Abnormal (test code = 09080-1) [facility] HospitalTHYROID STIMULATING [id number] 23:07:00 Test Item Value Reference Range Interpretation Comments TSH (test code = See_Comment [Automated message] 5820305402) The system whic h generated this result transmitted ref erence range: 0.45 - 4 .70 mIU/L. The refe rence range was not u sed to interpret this result as normal/abnor mal. Lab Interpretation (test Normal code = 29261-0) [facility] HospitalXR CHEST 1 [id number] 22:32:37CHEST ONE VIEW HISTORY: ?Chest pain TECHNIQUE: [...] right. CONCLUSIONS: No acute c ardiopulmonary disease. [facility], Radiant Results Inft User - 02/14/2020 5:33 PM CDTCHEST ONE VIEWHISTORY: Chest painTECHNIQUE: AP view of the chest is obtained.COMPARISON: 07/14/2019FINDINGS:Elevation of the left hemidiaphragm is seen.The lungs are clear. No focal consolidation is seen.Heart size is normal. No pleural effusion or pneumothorax is identified.A hiatal hernia is noted.Scoliosis of the thoracic spine is seen with convexity to the right.CONCLUSIONS: No acute cardiopulmonary disease.[facility] HospitalLactic Acid Whole [id number] 22:30:00 Test Item Value Reference Range Interpretation Comments LACTIC ACID (test code = 1.38 mmol/L 2996445822) [facility] HospitalURINALYSIS2020-07-22 22:04:00 Test Item Value Reference Range Interpretation Comments APPEARANCE (test code = Clear Clear 3570478518) COLOR (test code = Yellow Yellow 5291206200) PH (test code = 4.8-8.0 3214851961) SP GRAVITY (test code = 1.003-1.030 1364674262) GLU U QUAL (test code = Normal Normal 8208719819) BLOOD (test code = 1+ Negative A 9409850904) KETONES (test code = 5 mg/dL Negative A 9346548672) PROTEIN (test code = Negative Negative 2887-8) UROBILIN (test code = Normal Normal 5820863177) BILIRUBIN (test code = Negative Negative 6134587747) NITRITE (test code = Negative Negative 1847219511) LEUK NASRIN (test code = Negative Negative 0188295969) RBC/HPF (test code = See_Comment [Autom ated message] 8254853424) The system Krush generated this result transmitted ref erence range: 0 - 3 HP F. The reference range was not used to int erpret this result as normal/abnormal . WBC/HPF (test code = <1 See_Comment [Autom ated message] 9237094252) The system Krush generated this result transmitted ref erence range: 0 - 5 HP F. The reference range was not used to int erpret this result as normal/abnormal . BACTERIA (test code = Negative Negative 0385611047) MUCOUS (test code = Slight Negative LPF A 8639990540) SQ EPITH (test code = HPF 7017597654) HYAL CAST (test code = See_Comment H [Aut omated message] 1474733070) The system Krush generated this result transmitted ref erence range: <=2 LPF. The reference range was not used to int erpret this result as normal/abnormal . Lab Interpretation (test Abnormal code = 69439-3) [facility] HospitalD-[id number] 21:43:00 Test Item Value Reference Interpretation Comments Range D-DIMER (test code = See_Comment H [Autom ated 5069130636) message] The system which generated this result [...] diagnosis. Lab Interpretation Abnormal (test code = 90257-5) [facility] HospitalTROPONIN [id number] 21:31:00 Test Item Value Reference Range Interpretation Comments TROPONIN I (test 0.034 ng/mL See_Comment [Automated code = 0819893947) message] The system which generated this result [...] ? Lab Interpretation Normal (test code = 22200-9) [facility]605[facility]2020-02-14 21:19:00 Test Item Value Reference Range Interpretation Comments NA (test code = 138 mmol/L 135-145 2687561348) K (test code = 4.8 mmol/L 3.5-5 3410763480) CL (test code = 105 mmol/L 98-108 2937910150) CO2 TOTAL (test code = 22 mmol/L 23-31 L 7821735180) AGAP (test code = 2-16 5231653258) BUN (test code = 25 mg/dL 7-23 H 4753669579) GLUCOSE (test code = 125 mg/dL 70-110 H 5541282680) CREATININE (test code = 0.90 mg/dL 0.5-1.04 7695591960) TOTAL BILI (test code = 0.9 mg/dL 0.1-1.0 9511218863) CALCIUM (test code = 9.9 mg/dL 8.6-10.6 1310139472) T PROTEIN (test code = 8.0 g/dL 6.3-8.2 7996243107) ALBUMIN (test code = 4.5 g/dL 3.5-5 7815089549) ALK PHOS (test code = 109 U/L 34-122 2909882566) ALTv (test code = 37 U/L 5-35 H 1742-6) AST(SGOT) (test code = 40 U/L 13-40 9180386481) eGFR Calculation mL/min/1.73m2 (Non-) (test code = 3947623958) eGFR Calculation mL/min/1.73m2 () (test code = 1548554070) KIM (test code = KIM) Association of [...] tests). Lab Interpretation Abnormal (test code = 41147-7) [facility] HospitalLIPASE, [id number] 21:19:00 Test Item Value Reference Range Interpretation Comments LIPASE (test code = 2523438757) 269 U/L 0-220 H Lab Interpretation (test code = Abnormal 94434-6) [facility] HospitalaPTT2020-07-22 21:15:00 Test Item Value Reference Range Interpretation Comments APTT Patient (test See_Comment L [Automat ed code = 3173-2) message] The system which generated this result transmitted reference range : 23 - 38 Seconds . The reference range was not used to interpr et this result as normal/abnormal . KIM (test code = KIM) The [facility] patient population mean normal value for aPTT is 30 seconds. Lab Interpretation Abnormal (test code = 81709-1) [facility] HospitalPROTHROMBIN TIME / [id number] 21:13:00 Test Item Value Reference Range Interpretation [...] tions. Lab Interpretation (test Abnormal code = 23640-8) [facility] HospitalCBC WITH [id number] 21:11:00 Test Item Value Reference Range Interpretation Comments WBC (test code = See_Comment H [Automated 5890-2) message] The system which generated this result transmit leann reference range : 4.30 - 11.10 10*3/?L. The reference range was not used to interpret this result as normal/abnormal . RBC (test code = See_Comment H [Automated 709-8) message] The system which generated this result [...] RDW-SD (test code = 45.9 fL 39-49.9 12995-5) RDW-CV (test code = 13.6 % 12-15.5 788-0) PLT (test code = See_Comment [Automated 777-3) message] The system which generated this result transmit leann reference range : 166 - 358 10*3/ ?L. The reference range was not u sed to interpret th is result as normal/abnormal . MPV (test code = 10.1 fL 9.5-12.9 34758-2) NRBC/100 WBC (test See_Comment [Automat ed code = 1285252111) message] The system which generated this result transmit leann reference range : 0.0 - 10.0 /100 WBCs. The reference range was not used to interpret this result as normal/abnormal . NRBC x10^3 (test code <0.01 See_Comment [Auto mated = 1529205546) message] The system which generated this result transmit leann reference range : 10*3/?L. The reference range was not used to interpret this result as normal/abnormal . GRAN MAT (NEUT) % 85.0 % (test code = 770-8) IMM GRAN % (test code 1.40 % = 8508572888) LYMPH % (test code = 10.1 % 736-9) MONO % (test code = 2.9 % 5905-5) EOS % (test code = 0.3 % 713-8) BASO % (test code = 0.3 % 706-2) GRAN MAT x10^3(ANC) 14.85 10*3/uL 1.88-7.09 H (test code = 1181199423) IMM GRAN x10^3 (test 0.24 10*3/uL 0-0.06 H code = 2784178845) LYMPH x10^3 (test code 1.77 10*3/uL 1.32-3.29 = 731-0) MONO x10^3 (test code 0.51 10*3/uL 0.33-0.92 = 742-7) EOS x10^3 (test code = 0.06 10*3/uL 0.03-0.39 711-2) BASO x10^3 (test code 0.06 10*3/uL 0.01-0.07 = 704-7) Lab Interpretation Abnormal (test code = 11710-4) [facility] HospitalCT ABDOMEN PELVIS W [id number] 20:16:21Impression: 1. ?Findings concerning for cystitis. 2. [...] from a prior laparoscopicsurgery (2:52 and 66). [facility], Radiant Results Inft User - 01/03/2020 3:17 [...] surgery. Postsurgical changes are seen at the GEjunction.[facility] HospitalUrinalysis2020-06-10 18:27:00 Test Item Value Reference Range Interpretation Comments APPEARANCE (test code = Clear Clear 9409622192) COLOR (test code = Belkis Yellow A 3651837549) PH (test code = 4.8-8.0 1010605394) SP GRAVITY (test code = 1.003-1.030 0177008626) GLU U QUAL (test code = Normal Normal 6620841659) BLOOD (test code = 1+ Negative A 7515239548) KETONES (test code = Negative Negative 6092852388) PROTEIN (test code = Negative Negative 2887-8) UROBILIN (test code = Normal Normal 3893796324) BILIRUBIN (test code = Negative Negative 6803673465) NITRITE (test code = Negative Negative 0682147498) LEUK NASRIN (test code = Negative Negative 9309530163) RBC/HPF (test code = See_Comment [Autom ated message] 4483493275) The system Krush generated this result transmitted ref erence range: 0 - 3 HP F. The reference range was not used to int erpret this result as normal/abnormal . WBC/HPF (test code = <1 See_Comment [Autom ated message] 1975911959) The system Krush generated this result transmitted ref erence range: 0 - 5 HP F. The reference range was not used to int erpret this result as normal/abnormal . BACTERIA (test code = Few Negative A 1857996371) MUCOUS (test code = Moderate Negative LPF A 4529451857) SQ EPITH (test code = HPF 2193694582) HYAL CAST (test code = See_Comment H [Aut omated message] 8336817826) The system Krush generated this result transmitted ref erence range: <=2 LPF. The reference range was not used to int erpret this result as normal/abnormal . Lab Interpretation (test Abnormal code = 35821-5) [facility] HospitalProthrombin Time (PT) / [id number] 18:21:00 Test Item Value Reference Range Interpretation Comments PROTIME PATIENT (test See_Comment [Auto mated message] code = 5964-2) The system [facility] generated this result transmitted ref erence range: 12.0 - 1 4.7 Seconds. The re ference range was not u sed to interpret this result as normal/abnor mal. INR (test code = 6301-6) Nor mal INR <1.1; Warfarin Therap eutic range 2.0 to 3. 0 or 2.5 to 3.5, dep ending upon the indica tions. Lab Interpretation (test Normal code = 40687-6) [facility] HospitalaPTT2020-06-10 18:20:00 Test Item Value Reference Range Interpretation Comments APTT Patient (test See_Comment L [Automat ed code = 3173-2) message] The system which generated this result transmitted reference range : 23 - 38 Seconds . The reference range was not used to interpr et this result as normal/abnormal . KIM (test code = KIM) The [facility] patient population mean normal value for aPTT is 30 seconds. Lab Interpretation Abnormal (test code = 85658-4) [facility] Metabolic Panel (NA, K, CL, CO2, GLUCOSE, BUN, CREATININE, CA)2020-01-03 18:17:00 Test Item Value Reference Range Interpretation Comments NA (test code = 138 mmol/L 135-145 8307177468) K (test code = 3.9 mmol/L 3.5-5 9333584667) CL (test code = 110 mmol/L 98-108 H 3767989201) CO2 TOTAL (test code = 24 mmol/L 23-31 3008857860) AGAP (test code = 2-16 3778981520) BUN (test code = 12 mg/dL 7-23 3614524090) GLUCOSE (test code = 111 mg/dL 70-110 H 2141046257) CREATININE (test code = 0.72 mg/dL 0.5-1.04 3473898600) CALCIUM (test code = 8.9 mg/dL 8.6-10.6 7273304602) eGFR Calculation mL/min/1.73m2 (Non-) (test code = 5954555917) eGFR Calculation mL/min/1.73m2 () (test code = 9384972408) KIM (test code = KIM) Association of [...] tests). Lab Interpretation Abnormal (test code = 63620-8) [facility] HospitalHepatic Function Panel (ALB, T.PRO, BILI T, BU/BC, ALT, AST, ALK PHOS)2020-01-03 18:17:00 Test Item Value Reference Range Interpretation Comments TOTAL BILI (test code = 1292455063) 1.1 mg/dL 0.1-1.1 BILI UNCON (test code = 2712237233) 1.2 mg/dL 0.1-1.1 H BILI CONJ (test code = 3420133023) 0.0 mg/dL 0-0.3 T PROTEIN (test code = 1355421451) 6.7 g/dL 6.3-8.2 ALBUMIN (test code = 0786397393) 3.9 g/dL 3.5-5 ALK PHOS (test code = 3447995298) 88 U/L 34-122 ALTv (test code = 1742-6) 26 U/L 5-35 AST(SGOT) (test code = 9219434091) 28 U/L 13-40 Lab Interpretation (test code = Abnormal 62826-1) [facility] HospitalLipase [id number] 18:17:00 Test Item Value Reference Range Interpretation Comments LIPASE (test code = 2570291000) 166 U/L 0-220 Lab Interpretation (test code = Normal 44831-0) [facility] HospitalCBC WITH [id number] 18:07:00 Test Item Value Reference Range Interpretation [...] RDW-SD (test code = 46.4 fL 39-49.9 50429-0) RDW-CV (test code = 13.7 % 12-15.5 788-0) PLT (test code = See_Comment [Automated 777-3) message] The sy stem which generated this result transmitted reference range : 166 - 358 10*3/ ?L. The reference r lucas was not used to interpret this result as normal/abnormal . MPV (test code = 9.9 fL 9.5-12.9 30846-4) NRBC/100 WBC (test See_Comment [Automat ed code = 0223511235) message] The system which generated this result transmitted reference range : 0.0 - 10.0 /100 WBCs. The refer ence range was not u sed to interpret th is result as normal/abnormal . NRBC x10^3 (test code <0.01 See_Comment [Auto mated = 8737153711) message] The s ystem which generated this result transmitted reference range : 10*3/?L. The reference range was not used to interpret this result as normal/abnormal . GRAN MAT (NEUT) % 83.1 % (test code = 770-8) IMM GRAN % (test code 0.70 % = 0724552063) LYMPH % (test code = 11.2 % 736-9) MONO % (test code = 3.6 % 5905-5) EOS % (test code = 1.1 % 713-8) BASO % (test code = 0.3 % 706-2) GRAN MAT x10^3(ANC) 9.43 10*3/uL 1.88-7.09 H (test code = 1184838918) IMM GRAN x10^3 (test 0.08 10*3/uL 0-0.06 H code = 8007340650) LYMPH x10^3 (test code 1.27 10*3/uL 1.32-3.29 L = 731-0) MONO x10^3 (test code 0.41 10*3/uL 0.33-0.92 = 742-7) EOS x10^3 (test code = 0.12 10*3/uL 0.03-0.39 711-2) BASO x10^3 (test code 0.03 10*3/uL 0.01-0.07 = 704-7) Lab Interpretation Abnormal (test code = 88561-8) [facility] HospitalLactic Acid Whole [id number] 17:34:00 Test Item Value Reference Range Interpretation Comments LACTIC ACID (test code = 1.77 mmol/L 0.3-2.6 3461676455) Lab Interpretation (test code = Normal 40706-9) [facility] (NA, K, CL, CO2, GLUCOSE, BUN, CREATININE, CA)2019-12-06 08:20:00 Test Item Value Reference Range Interpretation Comments NA (test code = 132 mmol/L 135-145 L 5022579558) K (test code = 4.1 mmol/L 3.5-5 8910965368) CL (test code = 102 mmol/L 98-108 3629126004) CO2 TOTAL (test code = 25 mmol/L 23-31 7538153371) AGAP (test code = 2-16 4689812281) BUN (test code = 15 mg/dL 7-23 4469593214) GLUCOSE (test code = 85 mg/dL 70-110 8956841973) CREATININE (test code = 0.84 mg/dL 0.5-1.04 2812763963) CALCIUM (test code = 8.6 mg/dL 8.6-10.6 3607075584) eGFR Calculation mL/min/1.73m2 (Non-) (test code = 1046355124) eGFR Calculation mL/min/1.73m2 () (test code = 6328145346) KIM (test code = KIM) Association of [...] tests). Lab Interpretation Abnormal (test code = 42437-1) [facility] WITH [id number] 07:56:00 Test Item Value Reference Range Interpretation Comments WBC (test code = See_Comment H [Automated 8462-2) message] The system which generated this result transmit leann reference range : 4.30 - 11.10 10*3/?L. The reference range was not used to interpret this result as normal/abnormal . RBC (test code = See_Comment [Automated 768-8) message] The system which generated this result [...] RDW-SD (test code = 47.1 fL 39-49.9 73466-5) RDW-CV (test code = 13.5 % 12-15.5 788-0) PLT (test code = See_Comment [Automated 777-3) message] The system which generated this result transmit leann reference range : 166 - 358 10*3/ ?L. The reference range was not u sed to interpret th is result as normal/abnormal . MPV (test code = 9.8 fL 9.5-12.9 28679-8) NRBC/100 WBC (test See_Comment [Automat ed code = 3523326152) message] The system which generated this result transmit leann reference range : 0.0 - 10.0 /100 WBCs. The reference range was not used to interpret this result as normal/abnormal . NRBC x10^3 (test code <0.01 See_Comment [Auto mated = 4315857481) message] The system which generated this result transmit leann reference range : 10*3/?L. The reference range was not used to interpret this result as normal/abnormal . GRAN MAT (NEUT) % 77.4 % (test code = 770-8) IMM GRAN % (test code 0.60 % = 2187675224) LYMPH % (test code = 15.0 % 736-9) MONO % (test code = 6.7 % 5905-5) EOS % (test code = 0.2 % 713-8) BASO % (test code = 0.1 % 706-2) GRAN MAT x10^3(ANC) 12.65 10*3/uL 1.88-7.09 H (test code = 0888696541) IMM GRAN x10^3 (test 0.10 10*3/uL 0-0.06 H code = 9422296869) LYMPH x10^3 (test code 2.45 10*3/uL 1.32-3.29 = 731-0) MONO x10^3 (test code 1.10 10*3/uL 0.33-0.92 H = 742-7) EOS x10^3 (test code = 0.04 10*3/uL 0.03-0.39 711-2) BASO x10^3 (test code <0.03 0.01-0.07 = 704-7) Lab Interpretation Abnormal (test code = 71427-0) [facility] Barium Swallow [id number] 23:38:49 Postsurgical changes status post hiatal hernia [...] evaluation because of patient's inability to stand. [place] images demonstrate surgical changes status post hiatal [...] ofwater. No evidence of contrast material extravasation. [facility], Radiant Results Inft User - 12/05/2019 6:39 PM CDTBARIUM SWALLOW HISTORY: 64-year-old female status post hiatal hernia repair for evaluationof epigastric stricture or contrast leakage TECHNIQUE AND FINDINGS: Limited evaluation because of patient's inability to stand.[place] images demonstrate surgical changes status post hiatal [...] reviewed this study and agree with theabove report.[facility] WITH [id number] 17:22:00 Test Item Value Reference Range Interpretation Comments WBC (test code = See_Comment H [Automated 8940-2) message] The system which generated this result transmit leann reference range : 4.30 - 11.10 10*3/?L. The reference range was not used to interpret this result as normal/abnormal . RBC (test code = See_Comment [Automated 881-8) message] The system which generated this result [...] RDW-SD (test code = 44.9 fL 39-49.9 30825-0) RDW-CV (test code = 13.2 % 12-15.5 788-0) PLT (test code = See_Comment [Automated 777-3) message] The system which generated this result transmit leann reference range : 166 - 358 10*3/ ?L. The reference range was not u sed to interpret th is result as normal/abnormal . MPV (test code = 9.7 fL 9.5-12.9 23304-6) NRBC/100 WBC (test See_Comment [Automat ed code = 6240893729) message] The system which generated this result transmit leann reference range : 0.0 - 10.0 /100 WBCs. The reference range was not used to interpret this result as normal/abnormal . NRBC x10^3 (test code <0.01 See_Comment [Auto mated = [id number]) message] The system which generated this result transmit leann reference range : 10*3/?L. The reference range was not used to interpret this result as normal/abnormal . GRAN MAT (NEUT) % 93.0 % (test code = 770-8) IMM GRAN % (test code 1.30 % = 5412718609) LYMPH % (test code = 3.2 % 736-9) MONO % (test code = 2.4 % 5905-5) EOS % (test code = 0.0 % 713-8) BASO % (test code = 0.1 % 706-2) GRAN MAT x10^3(ANC) 19.11 10*3/uL 1.88-7.09 H (test code = 3414762566) IMM GRAN x10^3 (test 0.27 10*3/uL 0-0.06 H code = 3649058960) LYMPH x10^3 (test code 0.65 10*3/uL 1.32-3.29 L = 731-0) MONO x10^3 (test code 0.49 10*3/uL 0.33-0.92 = 742-7) EOS x10^3 (test code = <0.03 0.03-0.39 L 711-2) BASO x10^3 (test code 0.03 10*3/uL 0.01-0.07 = 704-7) Lab Interpretation Abnormal (test code = 30239-3) [facility] Metabolic Panel (NA, K, CL, CO2, GLUCOSE, BUN, CREATININE, CA)2019-12-05 16:11:00 Test Item Value Reference Range Interpretation Comments NA (test code = 135 mmol/L 135-145 1781262584) K (test code = 5.3 mmol/L 3.5-5 H 0147417145) CL (test code = 105 mmol/L 98-108 0599623930) CO2 TOTAL (test code = 24 mmol/L 23-31 9355156599) AGAP (test code = 2-16 7458126160) BUN (test code = 23 mg/dL 7-23 5573561433) GLUCOSE (test code = 204 mg/dL 70-110 H 0614034919) CREATININE (test code = 0.74 mg/dL 0.5-1.04 9050638339) CALCIUM (test code = 8.5 mg/dL 8.6-10.6 L 3809423090) eGFR Calculation mL/min/1.73m2 (Non-) (test code = 2160162524) eGFR Calculation mL/min/1.73m2 () (test code = 1954071363) KIM (test code = KIM) Association of [...] tests). Lab Interpretation Abnormal (test code = 49934-3) [facility] Test Item Value Reference Range Interpretation Comments MAGNESIUM (test code = 1518149002) 2.0 mg/dL 1.7-2.4 Lab Interpretation (test code = Normal 19166-4) [facility] 16:11:00 Test Item Value Reference Range Interpretation Comments PHOSPHORUS (test code = 4776769616) 3.2 mg/dL 2.5-5 Lab Interpretation (test code = Normal 86445-0) [facility] [id number] 19:32:00Surgical Pathology Report Case: [id number] Authorizing Provider: Leanna Perez MD Collected: 03/06/2019 0850 Ordering Location: [address] Received: 03/06/2019 1421 Service Pathologist: Radha [...] MALIGNANCY NOTED Signing Pathologist Direct Phone Line: [phone] signed by Radha Fuentes MD on 03/07/2019 at 7:32 [id number] X 2; 80714Obh and postop diagnosis: anemia A. Duodenum random biopsy; B. Stomach random biopsyA. Received in formalin labeled with the patient's name, accession number and "duodenum"are three irregular pino soft tissue fragments ranging [...] evaluated Immunohistochemistry technical testing was performed at [facility], Pathology Laboratory where it was developed andits performance characteristics were determined. It has not [...] perform high complexity clinical laboratory testing.COMPREHENSIVE METABOLIC [id number] 07:33:00 Test Item Value Reference Range Interpretation [...] NOT APPLICABLE FOR DIALYSIS PATIEN TS. PROTHROMBIN TIME/[id number] 07:23:00 Test Item Value Reference Range Interpretation [...] mechanical heart valves.CBC W/PLT COUNT & AUTO ZLSRHGJYSWFJ4804-98-39 07:16:00 Test Item Value Reference Range Interpretation [...] (BEAKER) (test code = 2801) HEMOGLOBIN AND AQNNQCRVGB7844-36-41 22:37:00 Test Item Value Reference Range Interpretation Comments HEMOGLOBIN (BEAKER) (test code = 7.5 GM/DL 11.2-15.7 L 410) HEMATOCRIT (BEAKER) (test code = 26.8 % 34.1-44.9 L 411) HEMOGLOBIN AND HWJYWPPEWR8082-00-64 10:01:00 Test Item Value Reference Range Interpretation Comments HEMOGLOBIN (BEAKER) (test code = 8.1 GM/DL 11.2-15.7 L 410) HEMATOCRIT (BEAKER) (test code = 28.9 % 34.1-44.9 L 411) VITAMIN D, 98-[id number] 09:22:00 Test Item Value Reference Range Interpretation Comments VITAMIN D 25-OH (BEAKER) (test code 5.7 ng/mL 6.6-49.9 L = 2764) Effective 05/05/2017: Reference Range ChangeNew: 6.6-49.9 ng/mL Previous: 13.0- 47.8 ng/mLRecommendedVitamin D Target Range: 30.0-40.0 ng/mLCOMPREHENSIVE METABOLIC [id number] 08:49:00 Test Item Value Reference Range Interpretation [...] (test code = 2590) TSH/FREE T4 IF [id number] 06:46:00 Test Item Value Reference Range Interpretation Comments THYROID STIMULATING HORMONE 0.90 uIU/mL 0.35-4.94 (BEAKER) (test code = 772) VITAMIN B12 AND [id number] 06:46:00 Test Item Value Reference Range Interpretation [...] (BEAKER) (test code = 413) HEMOGLOBIN AND [id number] 23:36:00 Test Item Value Reference Range Interpretation Comments HEMOGLOBIN (BEAKER) (test code = 6.0 GM/DL 11.2-15.7 LL 410) HEMATOCRIT (BEAKER) (test code = 22.6 % 34.1-44.9 L 411) TISSUE [id number] 15:28:00Surgical Pathology Report Case: [id number] Authorizing Provider: Criss Monroe MD Collected: 01/18/2019 0980 Ordering Location: [address] Received: 01/18/2019 1139 Service Pathologist: Sola Kingston MD Specimen: Polyp, Colon - Sigmoid COLON, SIGMOID POLYP, POLYPECTOMY- TUBULAR ADENOMA- HIGH GRADE DYSPLASIA NOT SEEN Signing Pathologist Direct Phone Line: [phone] signed by Sola Kingston MD on 01/19/2019 at 3:28 [id number] and postoperative diagnosis: Other iron deficiency anemiaReceived in one part. Polyp, colon-sigmoidReceived in formalin labeled with the patient's name, accession number and "polyp, colon-sigmoid" is a 0.4-cm pino polyp which is submitted in toto in A1. CG/bc Performed.FL, UGI, WITHOUT [id number] 13:45:00Reason for exam:->Suggestion of large hiatal hernia [...] 10 Impression: Large sliding hiatal hernia. Signed: Reyna, Gordon MDReport Verified Date/Time: 01/19/2019 13:45:41 Reading Location: [facility] C013X OrthoConsult Reading Room [facility] METABOLIC [id number] 08:32:00 Test Item Value Reference Range Interpretation [...] (test code = 413) VITAMIN B12 AND [id number] 05:50:00 Test Item Value Reference Range Interpretation Comments VITAMIN B12 (BEAKER) (test code = 323 pg/mL 213-816 774) FOLATE (BEAKER) (test code = 362) 11.0 ng/mL >=7.0 BASIC METABOLIC [id number] 05:46:00 Test Item Value Reference Range Interpretation [...] (BEAKER) (test code = 413) BASIC METABOLIC [id number] 06:19:00 Test Item Value Reference Range Interpretation [...] Specimen slightly ictericCBC W/PLT COUNT & AUTO [id number] 05:36:00 Test Item Value Reference Range Interpretation [...] = 2801) CBC W/PLT COUNT & AUTO [id number] 22:19:00 Test Item Value Reference Range Interpretation [...] = 2801) CBC W/PLT COUNT & AUTO [id number] 13:07:00 Test Item Value Reference Range Interpretation [...] PERCENT (BEAKER) (test code = 2801) PROTHROMBIN TIME/[id number] 09:14:00 Test Item Value Reference Range Interpretation [...] PATIEN TS. CBC W/PLT COUNT & AUTO [id number] 07:07:00 Test Item Value Reference Range Interpretation [...] (BEAKER) (test code = 2801) BASIC METABOLIC [id number] 01:47:00 Test Item Value Reference Range Interpretation [...] PATIEN TS. CBC W/PLT COUNT & AUTO [id number] 01:42:00 Test Item Value Reference Range Interpretation [...] (BEAKER) (test code = 2801) Reference Lab [id number] 14:16:00 Test Item Value Reference Range Interpretation Comments Reference Lab Testing Negative Negative Perfor med at: BN - (test code = HELIAG) [facility] [id number] Director: Dioni Jenkins MD, [facility] ne: [phone] SURGICAL PATHOLOGY, LEVEL [id number] 13:33:00 [place] [address] Laboratory Printed: 01/10/18 1333 [facility] DAEMPathology Page: 1 Patient: CORNELIO RUFFIN Birthdate: 1955 Age/Sex: 62/F Spec#: [id number]: Tyrell Patino MD Specimen Date: 01/07/18 Received Date: 01/07/18 Specimen: POLYP, COLON CLINICAL DIAGNOSIS anemia PATHOLOGIC DIAGNOSIS Cecal polyp, polypectomy: - Tubular adenoma. Comment: There is no high grade dysplasia or malignancy present. Pathologist:Crystal Brumfield MD Entered by:01/10/18 - 1256 LAB.YGP PROCEDURES: 79487 GROSS DESCRIPTION A. POLYP, COLON CECUM The [...] LAB.YGP Patient: CORNELIO RUFFIN Re01/05/18Loc: T4-A MR#: [id number] CONTINUED ON NEXT PAGE Dis: 01/08/18ta: DISIN [address] [address] Laboratory Printed: 01/10/[address] [place] [address] [facility] Page: 2 Patient: CORNELIO RUFFIN [id number] ( Continued) GROSS DESCRIPTION (Continued) MICROSCOPIC DESCRIPTION A microscopic examination was performed to arrive at the diagnostic conclusion reported. Signed (Electronically Signed) Crystal Brumfield MD 01/10/18 Patient: CORNELIO RUFFIN Re01/05/18Loc: T4-A MR#: [id number] END OF REPORT Dis: 01/08/18ta: DIS [id number] 11:30:00 Test Item Value Reference Range Interpretation [...] 8.9 mg/dL 7.8-10.44 N code = CA) [id number] 06:56:00 Test Item Value Reference Range Interpretation Comments Chemistry (test code = MG) 1.8 mg/dL 1.6-2.6 N Comment Add to AM labsComment Add to AM vhspFfcdgoktd5708-22-05 06:56:00 Test Item Value Reference Range Interpretation [...] risk for chen ry heart disease: Desirable: Les s than 130 mg/dL Borde rline High Risk: 130 - 159 mg/dL High Risk : Greater than 16 0 mg/dL Chemistry (test code = 4.3 Less than 4.5 Adul t levels in terms CRISK) of risk for Cor onary Heart Disease: Dangerous level : Greater than 8. 3 High: 5.6 - 8.3 [place] ge: 3.7 - 5.[address] rage: 2.5 - 3.7 Prote ction probable: Less than 2.5 Comment Add to AM labsComment Add to AM guxpPnswjkbsrd4319-96-82 04:30:00 Test Item Value Reference Range Interpretation [...] code = BASO#) 0.1 thou/uL 0.0-0.2 N [id number] 04:24:00 Test Item Value Reference Range Interpretation [...] 8.9 mg/dL 7.8-10.44 N code = CA) [id number] 15:26:00 Test Item Value Reference Range Interpretation Comments Hematology (test code = HGBT) 8.8 g/dL 12.0-16.0 L Hematology (test code = HCTT) 29.5 % 36.0-47.0 L [address] SURGICAL PATHOLOGY, LEVEL [id number] 14:22:00 [facility] [place] [address] Laboratory Printed: 01/07/18 1423 [facility] DAEMPathology Page: 1 Patient: CORNELIO RUFFIN Birthdate: 1955 Age/Sex: 62/F Spec#: [id number]: Tyrell Patino MD Specimen Date: [...] Green MD Enteredby:01/07/18 - 1117 LAB.YGP PROCEDURES: 26433/2, 21462/2, 72863 Patient: CORNELIO RUFFIN Re01/05/18Loc: T4-AAcct#: [id number] MR#: [id number] CONTINUED ON NEXT PAGE Dis: Sta: ADM IN [address] [address] Laboratory Printed: 01/07/18 142[facility] Page: 2 Patient: CORNELIO RUFFIN [id number] (Continued) GROSS DESCRIPTION A. GASTRIC BIOPSY The [...] by: Tina Kimball Entered by: 01/06/18 - 7949 [facility].YGP MICROSCOPIC DESCRIPTION A microscopic examination was performed to arrive at the diagnostic conclusion reported. Signed (Electronically Signed) Mike Green MD 01/07/18 Patient: CORNELIO RUFFIN Re01/05/18Loc: T4-A MR#: [id number] END OF REPORT Dis: Sta: ADM INChemistry - Benji Nylimps9412-29-41 13:00:00 Test Item Value Reference Range Interpretation [...] Phadia AB Benji Package Inserts - Directions [facility] Profitect ic. Chemistry - Benji [id number] 13:00:00 Test Item Value Reference Range Interpretation Comments Chemistry - Benji 0.6 U/mL <4 Negative Testing (test code = M2T) Chemistry - Benji Less th an 4.0 U/mL Testing (test code = Negativ e 4.0 - 6.0 = EJWNMQD201) U/mL = Equivoc al Greater than 6. [...] Benji Package Inserts - Directions september,November 12, Profitect ic. Chemistry - Benji 0.6 U/mL <4 Negative Testing (test code = M2T) Chemistry - Benji Less th an 4.0 U/mL Testing (test code = Negativ e 4.0 - 6.0 = KYGVKET430) U/mL = Equivoc al Greater than 6. [...] Inserts - Directions forU se, September,November 12, Profitect ic. Chemistry - Benji Tmmdhey3501-03-96 13:00:00 Test Item Value Reference Range Interpretation Comments Chemistry - Benji CENP, Chela -1, RNP70, Testing (test code = Scl-70, SHUBHAM Longo) SSA/Ro, SSB/L a IgGAntibodies: Less than 7.0 Benji U /mL = Negative 7.0 - 10.0 Benji U/mL = Equivocal Great er than 10.0 Benji U/mL = MGBLAYQPT7ROF IgG: Less than 5.0 Benji U/mL = Negative 5.0 - 10.0 Benji U/mL = Equivocal Great er than 10.0 Benji U/mL = POSITIVE Chemistry - Benji [id number] 12:38:00 Test Item Value Reference Range Interpretation Comments Chemistry - Benji Testing (test 0.4 EliAU/mL <7 Negative code = CELTTGIGA) Comment add onChemistry - Benji Kildvwg5655-22-02 12:38:00 Test Item Value Reference Range Interpretation Comments Chemistry - Benji Testing (test 0.6 EliAU/mL <7 Negative code = CELTTGIGG) Comment add onChemistry - Benji Bjgqarf3643-03-40 12:38:00 Test Item Value Reference Range Interpretation Comments Chemistry - Benji Less th an 7.0 Benji Testing (test code = U/mL = Negative 7.0 GLAYEWZ979) - 10.0 Benji U/m L = Equivocal Great er than 10.0 Benji U/mL = POSITIVE Comment add onChemistry - Vbxoortw9939-45-88 12:33:00 Test Item Value Reference Range Interpretation Comments Chemistry - Specials Non-Reactive NonReactive The ames el screens (test code = HIVT) for HIV-1 p24 Antigen HIV-1/HIV-2Anti body. Lzymjgqvaa1732-05-28 10:27:00 Test Item Value Reference Range Interpretation Comments Immunology (test code = SYPHABT) Nonreactive Nonreactive Enhnfghwic6285-95-75 10:25:00 Test Item Value Reference Range Interpretation [...] Hematology (test code = MODERATE=15-30 cells 0-5/hpf AZ) (100X) Hematology (test code = MODERATE=16-30 cells 0-5/hpf HYPO) (100X) Hematology (test code = SLIGHT = 2-3 cells 0-2/hpf POLY) (100X) Hematology (test code = MODERATE= 6-15 cells 0-1/hpf OV) (100X) Hematology (test code = Appears Adequate PCOMMENT) Tzyvmbjwa2203-74-69 10:07:00 Test Item Value Reference Range Interpretation [...] (3) (test N code = OCCSTS1) Comment nsoveZrmwuhntal0427-87-38 16:59:00 Test Item Value Reference Range Interpretation [...] MPV) 10.9 fL 7.4-10.4 H Chemistry - Bubbiyik3929-34-31 13:59:00 Test Item Value Reference Range Interpretation [...] testing.Reactiv e: >= 12.0 Individual is considered imm une to HBV infection. Dhisymzobc2017-40-45 12:26:00 Test Item Value Reference Range Interpretation [...] code = MPV) 5.3 fL 7.4-10.4 L Packed Cells - Fqoioqfhvcyf3080-20-53 11:29:[id number] OP [facility] TFUSE 01/06/18 0820Type Rvcnni6172-82-47 11:29:00 Test Item Value Reference Range Interpretation Comments Blood Type Rh (test code = BT) O POSITIVE Antibody Screen (test code = ABSC) NEGATIVE Received Blood Or Been w/in Past 90 Days? UNKNOWNReceived Blood Or Been w/in Past 90 Days? NOScheduled Surgery Date: NO SURGERYIs Surgery Date Greater than 7 days from now? DXRvxxniawj0889-87-25 05:27:00 Test Item Value Reference Range Interpretation [...] code 149 U/L 8-55 H = ALT) Oeibdhpjpz2240-81-03 05:18:00 Test Item Value Reference Range Interpretation [...] BASO#) 0.0 thou/uL 0.0-0.2 N Chemistry - Lvywaxfm5172-45-39 00:59:00 Test Item Value Reference Range Interpretation Comments Chemistry - Specials (test Non-Reactive NonReactive code = THEPAIGM) Chemistry - Specials (test Non-Reactive S/CO NonReactive code = THBSAG) Chemistry - Specials (test Non-Reactive NonReactive code = INTHBCM) Chemistry - Specials (test Non-Reactive NonReactive code = INTHEPC) Chemistry - BNP, HgbA1c, CRQp9582-44-68 19:45:00 Test Item Value Reference Range Interpretation Comments Chemistry - BNP, HgbA1c, PTHi 100.4 pg/mL 0-100 H (test code = BNP) Comment add mbMnmkvyfwu5459-64-84 19:38:00 Test Item Value Reference Range Interpretation Comments Chemistry (test 1.5 ng/mL 0-6.6 N code = CKMBM-T) Chemistry (test Less than < 0.028 code = TROPI-T) 0.010 ng/mL Reference Ra nge 0.00 - 0.028 ng /mL Negative 0.029 - 0.29 ng/mL Indetermi willie Greater or Equa l to 0.3 ng/mL Stron gly suggests [place] Comment add onChemistry - Gdffenmv4231-01-48 18:21:00 Test Item Value Reference Range Interpretation Comments Chemistry - Specials (test code = 24.27 ng/mL 10-291 N LINDSAY) Ybmhzenxgt4026-27-98 18:14:00 Test Item Value Reference Range Interpretation [...] Hematology (test code = MODERATE=15-30 cells 0-5/hpf AZ) (100X) Hematology (test code = SLIGHT = [...] Hematology (test code = Appears Adequate PCOMMENT) Lxkjwjvvc1613-89-92 17:59:00 Test Item Value Reference Range Interpretation [...] code 220 U/L 8-55 H = ALT) Lsjedmuzy9676-45-69 17:59:00 Test Item Value Reference Range Interpretation Comments Chemistry (test code = IRON) 15 ug/dL 50-170 L Wbqalgfqj2023-17-12 17:59:00 Test Item Value Reference Range Interpretation Comments Chemistry (test code = TIBC) 386 mcg/dL 265-497 N Lrmmvtbldai7020-67-28 17:50:00 Test Item Value Reference Range Interpretation [...] NONEMedical Necessity SUSPECT COAGULOPATHYAnticoagulant? NONEMedical Necessity: SUSP FEYKSdbzewcxblf6862-48-62 17:50:00 Test Item Value Reference Range Interpretation Comments Coagulation (test code = PTT) 23.4 SEC 22.9-36.1 N Anticoagulant? NONEMedical Necessity SUSPECT COAGULOPATHYAnticoagulant? NONEMedical Necessity: SUSP COAG
--- NOTE | 2022-07-21 21:42 | RAD REPORT ---
EXAM DESCRIPTION: RAD - Wrist Right 3 View - 07/21/2022 9:36 pm CLINICAL HISTORY: Pain COMPARISON: No comparisons FINDINGS/IMPRESSION: Displaced distal radial metadiaphyseal impaction fracture. Dorsal displacement of approximately 2/3 shaft and angulation of the distal fragment is identified. The distal ulna is in tact. Peripheral vascular calcifications.
[2022-07-21] MEDS ORDERED: MORPHINE 4 MG/ML SYR ONE (21:45)
[2022-07-21] MEDS ORDERED: ONDANSETRON 4 MG/2 ML VIAL ONE (21:46)
--- NOTE | 2022-07-21 21:46 | RAD REPORT ---
EXAM DESCRIPTION: RAD - Chest Single View - 07/21/2022 9:36 pm CLINICAL HISTORY: fall COMPARISON: Chest Single View dated 06/30/2022; Chest Single View dated 11/14/2020; Chest Single View dated 08/26/2020; Chest Single View dated 05/04/2019; Chest Abdomen Pelvis W Cont dated 07/16/2022 FINDINGS: Lines: None. Lungs: No evidence of edema or pneumonia. Pleural: No significant pleural effusions or pneumothorax. Cardiac: Mild cardiomegaly Mediastinum: Within normal limits. Bones: No acute fractures. Chronic deformity at the right greater tuberosity. Other: None IMPRESSION: No acute cardiopulmonary disease.
--- NOTE | 2022-07-21 22:14 | RAD REPORT ---
EXAM DESCRIPTION: CT - CTHCSPWOC - 07/21/2022 9:59 pm CLINICAL HISTORY: Trauma, head and neck injury. fall, head injury COMPARISON: Head C Spine Mpr Wo Con dated 07/16/2022; Chest Abdomen Pelvis W Cont dated 07/16/2022 TECHNIQUE: Axial 5 mm thick images of the head were obtained. Axial 2 mm thick images of the cervical spine were obtained with sagittal and coronal reconstruction images generated and reviewed. All CT scans are performed using dose optimization technique as appropriate and may include automated exposure control or mA/KV adjustment according to patient size. FINDINGS: CT HEAD WITHOUT CONTRAST: No acute hemorrhage, hydrocephalus or extra-axial collection is identified.No areas of brain edema or midline shift. Mild chronic small vessel ischemic changes Pansinus thickening.Left mastoid effusion.The calvarium is intact. CT CERVICAL SPINE WITHOUT CONTRAST: No fracture or subluxation.No prevertebral soft tissues swelling is identified. Right upper lobe nodu larity again noted. Mild cervical spondylosis noted with some neural foraminal narrowing. No central spinal stenosis. IMPRESSION: No acute intracranial or cervical spine findings.
[2022-07-21 23:31] LABS: Protime INR 1.07
[2022-07-21 23:38] LABS: Hematocrit 38.7 % (36.0-45.0); Lymphocytes % 13.6 % (15.3-44.8); MPV 7.6 fL (7.6-11.3); RBC Red Blood Cell Count 4.26 M/uL (3.86-4.86)
[2022-07-21 23:41] LABS: ALT/SGPT 35 U/L (13-56); AST/SGOT 16 U/L (15-37); Albumin 2.6 g/dL (3.4-5.0); Alkaline Phosphatase 116 U/L (45-117); BUN Blood Urea Nitrogen 21 mg/dL (7-18); Bicarbonate 26 mmol/L (21-32); Bilirubin Total 0.4 mg/dL (0.2-1.0); Glomerular Filtration Rate 59 ml/min (=/>90); Glucose Level 102 mg/dL (74-106); Magnesium 2.4 mg/dL (1.6-2.4); Potassium 3.9 mmol/L (3.5-5.1); Protein, Total 7.1 g/dL (6.4-8.2); Sodium Level 139 mmol/L (136-145); Troponin High Sensitivity 15.2 pg/mL (<58.9)
[2022-07-21 23:42] LABS: Bilirubin Direct < 0.1 mg/dL (0-0.2)
[2022-07-22] MEDS ORDERED: NA CHLORIDE 0.9% 1,000 ML ONE
[2022-07-22] MEDS ORDERED: propofoL 200 MG/20 ML VIAL IV ONE (00:01)
[2022-07-22] MEDS ORDERED: MORPHINE 2 MG/ML SYR ONE (00:15)
[2022-07-22] MEDS ORDERED: DERMABOND SKIN ADHESIVE TOP ONE (00:15)
--- NOTE | 2022-07-22 01:25 | ER ---
Nurse's Notes [facility] Name: Irma Cain Age: 67 yrs Sex: Female : 1955 Arrival Date: 07/21/2022 Time: 21:00 Bed 12 Private MD: Diagnosis: Fracture of shaft of radius-Acute, closed, distal, right Presentation: 07/21 21:19 Chief complaint: EMS states: "She has been falling since July 16. The wrist and tw5 head injury is new. She doesn't get light headed or dizzy she just states she gets disoriented. Before she was diagnosed with pneumonia and put on antibiotics that has been the only change in medication. ". Coronavirus screen: Vaccine status: Patient reports receiving the 2nd dose of the covid vaccine. Moderna. Ebola Screen: Patient negative for fever greater than or equal to 101.5 degrees Fahrenheit, and additional compatible Ebola Virus Disease symptoms Patient denies exposure to infectious person. Patient denies travel to an Ebola-affected area in the 21 days before illness onset. Initial Sepsis Screen: Does the patient meet any 2 criteria? HR > 90 bpm. Does the patient have a suspected source of infection? No. Patient's initial sepsis screen is negative. Risk Assessment: Do you want to hurt yourself or someone else? Patient reports no desire to harm self or others. Onset of symptoms was July 21, 2022 at 19:45. 21:19 Method Of Arrival: EMS: [facility] tw5 21:19 Acuity: FELA 3 tw5 Triage Assessment: 21:23 General: Appears uncomfortable, Behavior is calm, cooperative, appropriate for age. tw5 Pain: Complains of pain in right arm Pain currently is 8 out of 10 on a pain scale. Historical: - Allergies: 21:23 Aspirin; tw5 21:23 Neosporin ([id number]); tw5 21:23 NSAIDS; tw5 21:23 Talwin; tw5 - PMHx: 21:23 Asthma; Hypertensive disorder; UNMEDICATED; Pneumonia; tw5 - Immunization history:: Last tetanus immunization: unknown, Flu vaccine is not up to date. - Social history:: Smoking status: Patient denies any tobacco usage or history of. - Family history:: not pertinent. - Hospitalizations: : The patient was recently seen at [facility]. Screenin:23 [facility] ED Fall Risk Assessment (Adult) History of falling in the last 3 months, tw5 including since admission Yes- fall prone (multiple falls) (3 pts). Abuse screen: Denies threats or abuse. Denies injuries from another. Nutritional screening: No deficits noted. Tuberculosis screening: No symptoms or risk factors identified. Assessment: 21:23 Pain: Complains of pain in right arm Pain currently is 10 out of 10 on a pain scale. tw5 Neuro: Level of Consciousness is awake, alert, obeys commands, Oriented to person, place, time, situation. Respiratory: Airway is patent Trachea midline Respiratory effort is even, unlabored. Derm: Bruising that is dark purple, on left eye. Musculoskeletal: Bony deformity noted of right forearm. 22:38 General: Appears uncomfortable, Behavior is calm, cooperative, appropriate for age. tw5 Pain: Pain currently is 8 out of 10 on a pain scale. 22:57 General: lab paged for blood draw. Provider notified to delay. tw5 23:00 Reassessment: No changes from previously documented assessment. tw07/22 00:03 Cardiovascular: Capillary refill < 3 seconds is brisk in bilateral fingers. tw5 00:38 Reassessment: Patient states feeling better. Patient states symptoms have improved. tw5 01:09 Reassessment: Patient states feeling better. Patient states symptoms have improved. tw 01:44 Reassessment:. tw5 Vital Signs: 07/21 21:19 BP 187 / 87; Pulse 100; Resp 18; Temp 98.4; Pulse Ox 95% ; Weight 51.71 kg; Height 5 tw5 ft. 0 in. (152.40 cm); Pain 8/10; 23:00 BP 168 / 83; Pulse 92; Resp 18; Pulse Ox 95% on R/A; Pain 8/10; tw5 07/22 00:03 BP 160 / 72; Pulse 97; Resp 18; Pulse Ox 98% on R/A; tw5 00:38 tw5 00:54 BP 131 / 61; Pulse 93; Resp 18; Pulse Ox 99% on 3 lpm NC; tw5 01:44 BP 141 / 65; Pulse 90; Resp 18; Pulse Ox 100% on R/A; tw5 07/21 21:19 Body Mass Index 22.26 (51.71 kg, 152.40 cm) tw5 00:38 See moderate sedation flow sheet tw5 ED Course: 07/21 21:00 Patient arrived in ED. mw2 21:00 Oswaldo Hansen MD is Attending Physician. rn 21:18 Nuzhat Shelton is Primary Nurse. tw5 21:23 Triage completed. tw5 21:23 Arm band placed on Patient placed in an exam room. tw5 21:23 Patient has correct armband on for positive identification. Placed in gown. Bed in low tw5 position. Call light in reach. Side rails up X 1. Pulse ox on. NIBP on. Door closed. Noise minimized. Moved to private room. Warm blanket given. Verbal reassurance given. 21:38 XRAY Wrist RIGHT 3 view In Process Unspecified. EDMS 21:38 Chest Single View XRAY In Process Unspecified. EDMS 21:[address] tw5 21:53 EKG done, by ED staff, reviewed by Oswaldo Hansen MD. tw5 22:01 Head C Spine Mpr Wo Con In Process Unspecified. EDMS 22:38 Straight cath inserted, using sterile technique, 12 Fr. unsuccessful. Missed tw5 attempt(s): 22 gauge in left hand. Bleeding controlled, band aid applied, catheter tip intact. 22:49 Missed attempt(s): 24 gauge in left forearm. Bleeding controlled, band aid applied, mb4 catheter tip intact. 22:49 Inserted saline lock: 24 gauge wrist, using aseptic technique. mb4 23:06 Basic Metabolic Panel Sent. tw5 23:06 CBC with Diff Sent. tw5 23:06 Hepatic Function Sent. tw5 23:06 Magnesium Sent. tw5 23:06 Protime (+inr) Sent. tw5 23:06 Ptt, Activated Sent. tw5 23:06 Troponin High Sensitivity Sent. tw5 23:12 Side rails up X 1. Call light in reach. Noise minimized. Lights dimmed. Verbal mb4 reassurance given. cool washcloth applied to forehead for comfort. 23:43 Consent for conscious sedation explained by physician, signed by patient, Procedure tw5 consent explained by physician, signed by patient. 07/22 00:11 Assist provider with reduction of right elbow using traction, Set up for procedure. tw5 Performed by Oswaldo Hansen MD Immobilized with wrist splint, Patient tolerated well. 00:39 Assist provider with reduction of right elbow using traction, Performed by Oswaldo mascorro MD Immobilized with wrist splint, Patient tolerated well. Sling applied to right arm. 01:10 XRAY Wrist RIGHT 2 view In Process Unspecified. EDMS 01:22 Cristian Rawls MD is Referral Physician. rn 01:44 IV discontinued, intact, bleeding controlled, No redness/swelling at site. Pressure tw5 dressing applied. Administered Medications: 07/21 23:05 Drug: Zofran (Ondansetron) 4 mg Route: IVP; Site: left hand; tw5 07/22 00:39 Follow up: Response: No adverse reaction tw5 07/21 23:06 Drug: morphine 4 mg Route: IVP; Infused Over: 4 mins; Site: left antecubital; tw5 07/22 00:39 Follow up: Response: No adverse reaction tw5 00:02 Drug: NS 0.9% 1000 ml Route: IV; Rate: 1 bolus; Site: left hand; tw5 00:14 Drug: morphine 2 mg Route: IVP; Infused Over: 4 mins; Site: left hand; tw5 00:53 Follow up: Response: No adverse reaction; RASS: Alert and Calm (0) tw5 00:27 Drug: Propofol 90 mg {Note: see moderate sedation flow sheet for administration .} tw5 Route: IVP; Site: left hand; 00:53 Follow up: Response: No adverse reaction; RASS: Alert and Calm (0) tw 00:39 Not Given (Other Intervention Used): Propofol 100 mg IVP once; Document RASS score. tw5 Medication: 07/21 23:00 VIS not applicable for this client. tw5 Outcome: 07/22 01:24 Discharge ordered by . rn 01:44 Discharged to home via wheelchair, with friend. tw5 01:44 Condition: improved 01:44 Discharge instructions given to patient, Instructed on discharge instructions, follow up and referral plans. medication usage, wound care, Demonstrated understanding of instructions, follow-up care, medications, Prescriptions given X 1. 01:45 Patient left the ED. tw5 Signatures: Dispatcher [employer] EDMS Oswaldo Hansen MD MD rn [place], MyKena mw2 Ghada Dyer4 Nuzhat Shelton tw5 Corrections: (The following items were deleted from the chart) 07/21 22:50 22:49 Missed attempt(s): 22 gauge in left forearm. Bleeding controlled, band aid mb4 applied, catheter tip intact. mb4
--- NOTE | 2022-07-22 01:25 | EDPHYS ---
Physician Documentation [facility] Name: Irma Cain Age: 67 yrs Sex: Female : 1955 Arrival Date: 07/21/2022 Time: 21:00 Bed 12 Private MD: ED Physician Oswaldo Hansen HPI: 07/21 21:34 This 67 yrs old Female presents to ER via EMS with complaints of fall, wrist injury, rn head injury. 21:34 The patient or guardian reports decreased range of motion, deformity, injury, pain. The rn complaints affect the right wrist diffusely. Onset: The symptoms/episode began/occurred just prior to arrival. Modifying factors: The symptoms are alleviated by nothing, the symptoms are aggravated by movement. Associated signs and symptoms: Pertinent negatives: cyanosis distally, numbness distally, tingling distally. The patient has experienced similar episodes in the past. The patient has been recently seen at the [facility] Emergency Department, The patient has been recently been admitted at [facility]. Pt reports fall x 2 today, has had recurrent falls for > 1 year, recently admitted for fall and pneumonia prior to [place]. Denies syncope, and reports hit head on wall, without LOC, and only injured right wrist. Denies other injuries. . Historical: - Allergies: 21:23 Aspirin; tw5 21:23 Neosporin ([id number]); tw5 21:23 NSAIDS; tw5 21:23 Talwin; tw5 - PMHx: 21:23 Asthma; Hypertensive disorder; UNMEDICATED; Pneumonia; tw5 - Immunization history:: Last tetanus immunization: unknown, Flu vaccine is not up to date. - Social history:: Smoking status: Patient denies any tobacco usage or history of. - Family history:: not pertinent. - Hospitalizations: : The patient was recently seen at [facility]. ROS: 21:34 Constitutional: Negative for fever, chills, and weight loss, Eyes: Negative for injury, rn pain, redness, and discharge, Neck: Negative for injury, pain, and swelling, Cardiovascular: Negative for chest pain, palpitations, and edema, Respiratory: Negative for shortness of breath, cough, wheezing, and pleuritic chest pain, Abdomen/GI: Negative for abdominal pain, nausea, vomiting, diarrhea, and constipation, Back: Negative for injury and pain, : Negative for injury, bleeding, discharge, and swelling, MS/Extremity: + injury and pain to right wrist Skin: + bruising of face/arms Neuro: Negative for headache, numbness, tingling, and seizure. Exam: 21:34 Constitutional: This is a well developed, well nourished patient who is awake, alert, rn right arm in sling. Head/Face: Normocephalic, 1 cm superficial vertical laceration to mid forehead, no foreign body, no active bleeding. Eyes: Pupils equal round and reactive to light, extra-ocular motions intact. ENT: No oral trauma. Neck: No midline cervical tenderness Chest/axilla: Normal chest wall appearance and motion. Nontender with no deformity. No lesions are appreciated. Cardiovascular: Regular rate and rhythm. No pulse deficits. Respiratory: No increased work of breathing, no retractions or nasal flaring. Abdomen/GI: Soft, non-tender Back: No spinal tenderness. Skin: Warm, dry, old bruising to left side of face and periorbital region. Old bruising to dorsum of right hand. MS/ Extremity: Pulses equal, no cyanosis. + dinnerfork deformity to right wrist. Neuro: Awake and alert, GCS 15, oriented to person, place, time, and situation. Cranial nerves II-XII grossly intact. Motor strength 5/5 in all extremities. Sensory grossly intact. 22:30 ECG was reviewed by the Attending Physician. rn Vital Signs: 21:19 BP 187 / 87; Pulse 100; Resp 18; Temp 98.4; Pulse Ox 95% ; Weight 51.71 kg; Height 5 tw5 ft. 0 in. (152.40 cm); Pain 8/10; 23:00 BP 168 / 83; Pulse 92; Resp 18; Pulse Ox 95% on R/A; Pain 8/10; tw5 07/22 00:03 BP 160 / 72; Pulse 97; Resp 18; Pulse Ox 98% on R/A; tw5 00:38 tw5 00:54 BP 131 / 61; Pulse 93; Resp 18; Pulse Ox 99% on 3 lpm NC; tw5 01:44 BP 141 / 65; Pulse 90; Resp 18; Pulse Ox 100% on R/A; tw5 07/21 21:19 Body Mass Index 22.26 (51.71 kg, 152.40 cm) tw5 00:38 See moderate sedation flow sheet tw5 Procedures: 00:47 Splinting: Splint applied to right arm using plaster sugartong splint. applied by rn myself. post reduction film - reveals improved alignment, Examined by me, post splint application: neurovascular intact, 2+ distal pulses palpable, brisk capillary refill noted, Patient tolerated well. Reduction: of the right wrist, using traction, manipulation, Immobilized with plaster sugartong. Patient tolerated well. Post reduction film - reveals improved alignment. Moderate sedation: Pre-procedure assessment: the patient has been NPO 4 hour(s) prior to arrival, ASA physical classification: II - mild/mod systemic disease that does not interfere with daily routines, Airway assessment: able to hyperextend neck, able to maintain airway, can open mouth without difficulty, Monitoring during procedure: satellite project site monitor, continuous pulse oximetry, nurse at bedside at all times, Medications employed: morphine, 2 mg(s), propofol 90mg, Post-procedure assessment: the patient is mildly sedated, Respiratory status: even and unlabored, a reversal agent was not used. Laceration: 00:47 Wound Repair of 1cm ( 0.4in ) subcutaneous laceration to forehead. Distal rn neuro/vascular/tendon intact. Wound prep: Moderate cleansing by nurse. Skin closed with 1 thin layer Adhesive skin closure using Dermabond. Patient tolerated well. MDM: 07/21 21:00 Patient medically screened. rn 07/22 01:22 Differential diagnosis: closed fracture, contusion. Data reviewed: vital signs, nurses rn notes, lab test result(s), EKG, radiologic studies, CT scan, plain films, and as a result, I will discharge patient. Counseling: I had a detailed discussion with the patient and/or guardian regarding: the historical points, exam findings, and any diagnostic results supporting the discharge/admit diagnosis, lab results, radiology results, the need for outpatient follow up, to return to the emergency department if symptoms worsen or persist or if there are any questions or concerns that arise at home. Response to treatment: the patient's symptoms have markedly improved after treatment, and as a result, I will discharge patient. Special discussion: I discussed with the patient/guardian in detail that at this point there is no indication for admission to the hospital. It is understood, however, that if the symptoms persist or worsen the patient needs to return immediately for re-evaluation. Based on the history and exam findings, there is no indication for further emergent testing or inpatient evaluation. I discussed with the patient/guardian the need to see the orthopedic surgeon for further evaluation of the symptoms. 07/21 21:08 Order name: Basic Metabolic Panel; Complete Time: 23:43 rn 07/21 21:08 Order name: CBC with Diff; Complete Time: 23:43 rn 07/21 21:08 Order name: Hepatic Function; Complete Time: 23:43 rn 07/21 21:08 Order name: Magnesium; Complete Time: 23:43 rn 07/21 21:08 Order name: Protime (+inr); Complete Time: 23:43 rn 07/21 21:08 Order name: Ptt, Activated; Complete Time: 23:43 rn 07/21 21:08 Order name: XRAY Wrist RIGHT 3 view; Complete Time: 23:21 rn 07/21 21:08 Order name: CT Head C Spine rn 07/21 21:08 Order name: Troponin High Sensitivity; Complete Time: 23:43 rn 07/21 21:08 Order name: Chest Single View XRAY; Complete Time: 23:21 rn 07/21 21:12 Order name: Head C Spine Mpr Wo Con; Complete Time: 23:21 EDMS 07/22 00:35 Order name: XRAY Wrist RIGHT 2 view rn 07/21 21:08 Order name: EKG; Complete Time: 21:08 rn 07/21 21:08 Order name: Cardiac monitoring; Complete Time: 21:53 rn 07/21 21:08 Order name: EKG - Nurse/Tech; Complete Time: 21:53 rn 07/21 21:08 Order name: IV Saline Lock; Complete Time: 22:55 rn 07/21 21:08 Order name: Labs collected and sent; Complete Time: 22:55 rn 07/21 21:08 Order name: NPO; Complete Time: 23:00 rn 07/21 21:08 Order name: O2 Per Protocol; Complete Time: 23:00 rn 07/21 21:08 Order name: O2 Sat Monitoring; Complete Time: 23:00 rn 07/21 23:21 Order name: Moderate Sedation; Complete Time: 23:57 rn EC/27 22:30 Rate is 95 beats/min. Rhythm is regular. QRS [place] is Normal. CT interval is normal. QRS rn interval is normal. QT interval is normal. No Q waves. T waves are Normal. No ST changes noted. Clinical impression: Normal ECG. Interpreted by me. Reviewed by me. Administered Medications: 23:05 Drug: Zofran (Ondansetron) 4 mg Route: IVP; Site: left hand; tw07/22 00:39 Follow up: Response: No adverse reaction 07/21 23:06 Drug: morphine 4 mg Route: IVP; Infused Over: 4 mins; Site: left antecubital; 07/22 00:39 Follow up: Response: No adverse reaction 00:02 Drug: NS 0.9% 1000 ml Route: IV; Rate: 1 bolus; Site: left hand; 00:14 Drug: morphine 2 mg Route: IVP; Infused Over: 4 mins; Site: left hand; tw5 00:53 Follow up: Response: No adverse reaction; RASS: Alert and Calm (0) 00:27 Drug: Propofol 90 mg {Note: see moderate sedation flow sheet for administration .} tw Route: IVP; Site: left hand; 00:53 Follow up: Response: No adverse reaction; RASS: Alert and Calm (0) 00:39 Not Given (Other Intervention Used): Propofol 100 mg IVP once; Document RASS score. tw5 Disposition Summary: 07/22/22 01:24 Discharge Ordered Location: Home rn Problem: new rn Symptoms: have improved rn Condition: Stable rn Diagnosis - Fracture of shaft of radius - Acute, closed, distal, right rn Followup: rn - With: Cristian Rawls MD - When: 5 - 6 days - Reason: Recheck today's complaints, Continuance of care, Re-evaluation by your physician Discharge Instructions: - Discharge Summary Sheet rn - Tissue Adhesive internal medicine specialist - Wrist Fracture Treated With Immobilization rn - Wrist Splint, Adult rn - Fall Prevention in the Home, Adult rn Forms: - Medication Reconciliation Form rn - Thank You Letter rn - 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 Head/Face: Normocephalic, atraumatic. Eyes: Pupils equal round and reactive to light, extra-ocular motions intact. ENT: No oral trauma. Neck: No midline cervical tenderness Chest/axilla: Normal chest wall appearance and motion. Nontender with no deformity. No lesions are appreciated. Cardiovascular: Regular rate and rhythm. No pulse deficits. Respiratory: No increased work of breathing, no retractions or nasal flaring. Abdomen/GI: Soft, non-tender Back: No spinal tenderness. Skin: Warm, dry, old bruising to left side of face and periorbital region. Old bruising to dorsum of right hand. MS/ Extremity: Pulses equal, no cyanosis. + dinnerfork deformity to right wrist. Neuro: Awake and alert, GCS 15, oriented to person, place, time, and situation. Cranial nerves II-XII grossly intact. Motor strength 5/5 in all extremities. Sensory grossly intact. rn
[2022-07-22 01:54] VITALS: TEMP 98.4
[2022-07-22 01:59] VITALS: BP 141/65; O2SAT 100
--- NOTE | 2022-07-22 12:20 | RAD REPORT ---
EXAM DESCRIPTION: RAD - Wrist Right 2 View - 07/22/2022 1:08 am CLINICAL HISTORY: The patient is 67 years old and is Female; post reduction Wrist Right 2 View TECHNIQUE: Frontal and lateral views of the right wrist. COMPARISON: Radiograph July 21, 2022 FINDINGS: BONES/JOINTS: No significant change in alignment of the distal radius fracture is noted with persistent dorsal angulation of the distal fracture fragment. SOFT TISSUES: Unremarkable. No radiopaque foreign body. OTHER FINDINGS: Casting material is in place which obscures fine detail. IMPRESSION: No significant change in alignment of the distal radius fracture is noted with persisten t dorsal angulation of the distal fracture fragment. Electronically signed by: Odette Post MD 07/22/2022 2:29 AM WEB PROGRAMMER Due to temporary technical issues with the PACS/Fluency reporting system, reports are being signed by the in house radiologists without review as a courtesy to insure prompt reporting. The interpreting radiologist is fully responsible for the content of the report.
--- NOTE | 2022-07-23 17:48 | EKG ---
Test Date: 2022-07-21 Test Time: 21:50:10 Forensic Scientist: MEASUREMENT RESULTS: Intervals: Rate: 98 ND: 144 QRSD: 62 QT: 322 QTc: 411 [place]: P: 66 ND: 144 QRS: 32 T: 35 INTERPRETIVE STATEMENTS: Sinus rhythm with premature atrial complexes Otherwise normal ECG Compared to ECG 07/17/2022 00:10:41 Atrial premature complex(es) now present Sinus tachycardia no longer present T-wave abnormality no longer present Electronically Signed On 07-23-22 17:44:55 BINDERY CHIEF by Khang Caldwell
--- NOTE | 2022-07-23 17:48 | EKG ---
Test Date: 2022-07-21 Test Time: 21:50:48 Bird Tender: MEASUREMENT RESULTS: Intervals: Rate: 95 DC: 140 QRSD: 66 QT: 342 QTc: 429 [place]: P: 68 DC: 140 QRS: 36 T: 39 INTERPRETIVE STATEMENTS: Normal sinus rhythm Normal ECG Compared to ECG 07/21/2022 21:50:10 Atrial premature complex(es) no longer present Electronically Signed On 07-23-22 17:44:51 LABELING SPECIALIST by Khang Caldwell
== END 2022-07-22 01:45 | disposition home or self-care (01) ==
LOC: ER 20:54
PROC: 0JQ10ZZ Repair Face Subcutaneous Tissue and Fascia, Open Approach (ICD-10-PCS; principal; 2022-07-22)
PROC: 0PSHXZZ Reposition Right Radius, External Approach (ICD-10-PCS; 2022-07-22)
DX: S52.301A Unspecified fracture of shaft of right radius, initial encounter for closed fracture (principal); S01.81XA Laceration without foreign body of other part of head, initial encounter; I10 Essential (primary) hypertension; Z88.3 Allergy status to other anti-infective agents; Z88.6 Allergy status to analgesic agent; Z88.8 Allergy status to other drugs, medicaments and biological substances
CPT/HCPCS: 93005; 85025; 80048; 36415; 83735; 85610; 80076; 85730; 84484; 70450; 72125; 71045; 73110; 73100; 12011; 25505; J2270; J2405

== ENCOUNTER 2022-08-28 16:40 | Emergency (ER) | payer OTHER ==
--- OUTSIDE RECORDS SUMMARY | 2022-08-28 16:53 | XMS REPORT | Continuity of Care Document ---
:1955 Author Organization Formerly [facility] t Address [address] [place] [address] Care Team Providers Name Role Phone Cuba Gardiner MD Primary Care Physician Unavailable BOBBY SIMS Attending Clinician Unavailable CANDIDA BURGESS Attending Clinician Unavailable CUBA GARDINER Attending Clinician Unavailable Doctor Unassigned, [place] Attending Clinician Unavailable Sharla Ashraf Attending Clinician [...] Date Expiration Date S supa HUMANA CHOICE [id number] 2014 00:00:00 Problems Condition Condition Condition Status [...] presence for not not surgery specified specified [id number] Hiatal Hiatal Disease Active 2020-0 Overview: Univer s hernia hernia 3-02 Added ity of 00:00: automatic [place] 00 ally from Medical request Branch for surgery [id number] Anxiety Anxiety Disease Active Univers 8-22 ity [...] ccal ccal 00:00: [place] infection infection [address] 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 Iron Iron Disease Active 2015-07 Univers [...] Quantity Comments Source Exposure to Not sure [facility]-CoV-2 [place] Medical (event) Branch History SDOH [facility] Alcohol Frequency 00:00:00 00:00:00 [facility] Tobacco use and 2019-01-16 2019-01-[address] [facility] exposure 00:00:00 00:00:00 [facility] Sex Assigned At [address] [facility] 00:00:00 [facility]00 [facility] Smoking Status Start Date Stop Date Source Never smoker [facility] Medical Branch Medications Ordered Filled Start [...] or Shortness of Breath. losartan 50 Yes [id number] 50mg Take 1 Univers mg tablet 4-28 tablet by ity o f 00:00: mouth [place] 00 daily. Medical Branch losartan 50 0 Yes [id number] 50mg Take 1 Univers mg tablet 4-28 tablet by ity o f 00:00: mouth [place] 00 daily. Medical Branch losartan 50 0 Yes [id number] 50mg Take 1 Univers mg tablet 4-28 tablet by ity o f 00:00: mouth [place] 00 daily. Medical Branch losartan 50 0 Yes [id number] 50mg Take 1 Univers mg tablet 4-28 [...] it y of hr capsule 00:00: (two) [place] 00 times Medical daily. Branch zolpidem 10 2020-0 Yes 10mg Take 10 mg Univers mg tablet 4-08 by mouth ity of 00:00: at [place] bedtime. Medical Branch zolpidem 10 2020-0 Yes 10mg Take 10 mg Univers mg tablet 4-08 by mouth ity of 00:00: at [place] bedtime. Medical Branch zolpidem 10 2020-0 Yes 10mg Take 10 mg Univers mg tablet 4-08 by mouth ity of 00:00: at [place] [address] bedtime. Medical Branch zolpidem 10 2020-0 Yes 10mg Take 10 mg Univers mg tablet 4-08 by mouth ity of 00:00: at [place] [address] bedtime. Medical Branch ALPRAZolam 2020-0 2021- No .5mg Take 0.5 Un bogdan 0.5 mg 4-08 04-28 mg by ity of tablet 00:00: 00:00 mouth 2 [place] 00 :00 (two) Medical times [place] daily. ALPRAZolam 2020-0 2021- No .5mg Take 0.5 Un bogdan 0.5 mg 4-08 04-28 mg by ity of tablet 00:00: 00:00 mouth 2 [place] 00 :00 (two) Medical times [place] daily. atomoxetine 2020-0 Yes 40mg Take 40 mg Univers 40 mg 3-25 by mouth 2 ity of capsule 00:00: (two) [place] times Medical daily. Branch temazepam 2020-0 Yes 30mg Take 30 mg Un bogdan 30 mg 3-25 by mouth ity of capsule 00:00: at [place] [address] bedtime. Medical Branch atomoxetine 1-0 Yes 40mg Take 40 mg Univers 40 mg 3-25 by mouth 2 ity of capsule 00:00: (two) [place] times Medical daily. Branch temazepam 2020-0 Yes 30mg Take 30 mg Un bogdan 30 mg 3-25 by mouth ity of capsule 00:00: at [place] [address] bedtime. Medical Branch atomoxetine Yes 40mg Take 40 mg Univers 40 mg 3-25 by mouth 2 ity of capsule 00:00: (two) [place] 00 times Medical daily. Branch temazepam Yes 30mg Take 30 mg Un bogdan 30 mg 3-25 by mouth ity of capsule 00:00: at [place] [address] bedtime. Medical Branch atomoxetine Yes 40mg Take 40 mg Univers 40 mg 3-25 by mouth 2 ity of capsule 00:00: (two) [place] 00 times Medical daily. Branch temazepam Yes 30mg Take 30 mg Un bogdan 30 mg 3-25 by mouth ity of capsule 00:00: at [place] [address] bedtime. Medical Branch ARIPiprazol Yes TAKE 1 TO U nivers e 2 mg 3-11 2 TABLETS ity of tablet 00:00: BY MOUTH [place] EVERY Medical NIGHT AT [facility] ARIPiprazol 2020- Yes TAKE 1 TO U nivers e 2 mg 3-11 2 TABLETS ity of tablet 00:00: BY MOUTH [place] EVERY Medical NIGHT AT [facility] ARIPiprazol 2020-0 Yes TAKE 1 TO U nivers e 2 mg 3-11 2 TABLETS ity of tablet 00:00: BY MOUTH [place] [address] EVERY Medical NIGHT AT [facility] ARIPiprazol 2020-0 Yes TAKE 1 TO U nivers e 2 mg 3-11 2 TABLETS ity of tablet 00:00: BY [place] [address] EVERY Medical NIGHT AT [facility] DALIRESP 2020-0 2021- No 1{tbl} Take 1 Univ ers 250 mcg Tab 3-11 04-28 tablet by it y of 00:00: 00:00 mouth [place] 00 :00 daily. Medical Branch DALIRESP 2020-0 2020- No 1{tbl} Take 1 Univ ers 250 mcg Tab 3-11 04-28 tablet by it y of 00:00: 00:00 mouth [place] 00 :00 daily. Medical Branch SERTraline 0 Yes 100mg Take 100 Un bogdan 100 mg 2-04 mg by ity of tablet 00:00: mouth at [place] [address] bedtime. Medical Branch SERTraline 2020-0 Yes 100mg Take 100 Un bogdan 100 mg 2-04 mg by ity of tablet 00:00: mouth at [place] 00 bedtime. Medical Branch SERTraline 2020-0 Yes 100mg Take 100 Un bogdan 100 mg 2-04 mg by ity of tablet 00:00: mouth at [place] 00 bedtime. Medical Branch SERTraline 2020-0 Yes 100mg Take 100 Un bogdan 100 mg 2-04 mg by ity of tablet 00:00: mouth at [place] 00 bedtime. Medical Branch ergocalcife 2020-0 2020- No [id number] Take Univers rol, 02-28 50,000 ity of vitamin d2, 00:00: 04:59 Units by [place] 2,500 unit 00 :00 mouth Medical Cap weekly for Branch 6 doses. ergocalcife 2020-0 2020- No [id number] Take Univers rol, 02-28 50,000 ity of vitamin d2, 00:00: 04:59 Units by [place] 2,500 unit 00 :00 mouth Medical Cap weekly for Branch 6 doses. ergocalcife 2019-0 2020- No [id number] Take [facility], 02-28 50,000 ity of vitamin d2, 00:00: [...] by mouth ity of capsule 01:02: daily. [place] [address] Medical Branch fluticasone 2020-0 Yes Inhale. Uni vers /umeclidin/ 7-31 ity of vilanter 01:02: [place] ([facility] 13 Medical [facility] Branch INHALE) albuterol 2020-0 Yes 2{puff} Inhale 2 U nivers (VENTOLIN) 7-31 Puffs ity of 90 01:02: every 6 [place] mcg/actuati 13 (six) Medical on inhaler hours as Branc h needed for Wheezing or Shortness of Breath. omeprazole 2020-0 Yes 40mg Take 40 mg U nivers 40 mg 7-31 by mouth ity of capsule 01:02: daily. [address] Branch fluticasone 2020-0 Yes Inhale. Uni vers /umeclidin/ 7-31 ity of vilanter 01:02: [place] ([place] [address] Medical ELLIPTA Branch INHALE) albuterol 2020-0 Yes 2{puff} Inhale 2 U nivers (VENTOLIN) 7-31 Puffs ity of 90 01:02: every 6 [place] mcg/actuati 13 (six) Medical on inhaler hours as Branc h needed for Wheezing or Shortness of Breath. omeprazole 2020-0 Yes 40mg Take 40 mg U nivers 40 mg 7-31 by mouth ity of capsule 01:02: daily. [address] Branch fluticasone 2020-0 Yes Inhale. Uni vers /umeclidin/ 7-31 ity of vilanter 01:02: [place] ([address] Branch [address]) albuterol 2020-0 Yes 2{puff} Inhale 2 U nivers (VENTOLIN) 7-31 Puffs ity of 90 01:02: every 6 [place] mcg/actuati (six) Medical on inhaler hours as Branc h needed for Wheezing or Shortness of Breath. omeprazole 2020-0 Yes 40mg Take 40 mg U nivers 40 mg 7-31 by mouth ity of capsule 01:02: daily. [address] Branch fluticasone 2020-0 Yes Inhale. Uni vers /umeclidin/ 7-31 ity of vilanter 01:02: [place] ([address] Branch [address]) omeprazole 2020-0 Yes 40mg Take 40 mg U nivers 40 mg 7-31 by mouth ity of capsule 01:02: daily. [address] Branch fluticasone 2020-0 Yes Inhale. Uni vers /umeclidin/ 7-31 ity of vilanter 01:02: [place] ([address] Branch INH[address]) omeprazole 2020-0 Yes 40mg Take 40 mg U nivers 40 mg 7-31 by mouth ity of capsule 01:02: daily. [address] Branch fluticasone 2020-0 Yes Inhale. Uni vers /umeclidin/ 7-31 ity of vilanter 01:02: [place] ([address] Branch INH[address]) omeprazole 2020-0 Yes 40mg Take 40 mg U nivers 40 mg 7-31 by mouth ity of capsule 01:02: daily. [address] fluticasone 2020-0 Yes Inhale. Uni vers /umeclidin/ 7- ity of vilanter 01:02: [place] ([address] Branch INHALE) omeprazole 2020-0 Yes 40mg Take 40 mg U nivers 40 mg 7-31 by mouth ity of capsule 01:02: daily. [address] fluticasone 2020-0 Yes Inhale. Uni vers /umeclidin/ - ity of vilanter 01:02: [place] ([address] Branch [address]) carvediloL 2020-0 2020- No [id number] 12.5mg Take 1 Univers 12.5 mg 7- 08-31 tablet by ity of tablet 00:00: 04:59 mouth 2 [place] 00 :00 (two) [facility] times [place] daily with meals for 30 days. carvediloL 2020-0 2020- No [id number] 12.5mg Take 1 Univers 12.5 mg 7- 08-31 tablet by ity of tablet 00:00: 04:59 mouth 2 [place] 00 :00 (two) Medical times [place] daily with meals for 30 days. predniSONE 2020-0 Yes 10mg 10 mg, Unive rs (DELTASONE) 7-30 Oral, ity of tablet 10 22:45: DAILY, [place] mg 00 First dose Medical on [facility] Branch 02/22/20 at 1745, Until Discontinu ed, Routine ipratropium 2020-0 Yes 3mL 3 mL, Unive rs -albuterol 7-30 Inhalation ity of (DUONEB) 21:00: , QID, [place] 0.5 mg-3 00 First dose Medic al mg(2.5 mg on [facility] base)/3 mL 02/22/20 at nebulizer 1600, solution 3 Until mL Discontinu ed, Routine ergocalcife 2020-0 Yes [id number] 50,000 Un bogdan rol 7-30 Units, ity of (vitamin 19:30: Oral, [place] d2) 00 QWEEKLY, Medical (CALCIFEROL First dose Br anch ) capsule on [place] 50,000 02/22/20 at Units 1430, Until Discontinu ed, Routine loperamide 2020-0 Yes 2mg 2 mg, Univer s (IMODIUM 7-30 Oral, ity of A-D) 19:04: Q4HPRN, [place] capsule 2 12 Starting Medica l mg [facility] Branch 02/22/20 at 1404, Until Discontinu [...] First dose Medic al NaCl 0.9% on [facility] Branch (NS) 100 mL 02/22/20 at [...] it y of meterol 04:15: , Q12H, [place] (ADVAIR) 00 First dose Medic al 250-50 on Wed Branch mcg/dose 02/21/20 at inhalation 2315, disk 1 Puff Until Discontinu ed, Routine
Use approved by (Faculty and pager): ADC PROVIDER ALPRAZolam 2020-0 Yes .5mg 0.5 mg, Univ ers (XANAX) 02-21 Oral, ity of tablet 0.5 04:00: BIDPRN, [place] mg 00 Starting Medical [facility] Branch 02/21/20 at 2300, Until Discontinu ed, [...] TIDPRN, [place] 33 :27 Starting Medical [facility] Branch 02/21/20 at 1938, Until Wed02/21/20 at 2254, Routine, anxiety loperamide 2019- 2020- No [id number] 2mg Take 1 Univers 2 mg - 08-10 capsule by ity of capsule 00:00: 04:59 mouth [place] 00 :00 every 4 Medical (four) Branch hours as needed for Diarrhea for up to 10 days. loperamide 2019-0 2020- No [id number] 2mg Take 1 Univers 2 mg -30 08-10 capsule by ity of capsule 00:00: 04:59 mouth [place] 00 :00 every 4 Medical (four) Branch hours as needed for Diarrhea for up to 10 days. ALPRAZolam 2019-0 2020- No [id number] .5mg Take 1 Univers 0.5 mg - 08-05 tablet by ity of tablet 00:00: 04:59 mouth 3 [place] 00 :00 (three) Medical times Branch daily as needed (anxiety) for up to 5 days. ALPRAZolam 2020- No [id number] .5mg Take 1 Univers 0.5 mg 02-21 0805 tablet by ity of tablet 00:00: 04:59 mouth 3 [place] 00 :00 (three) Medical times [place] daily as needed (anxiety) for up to 5 days. ondansetron 2019- Yes 4mg 4 mg, Slow Univers (ZOFRAN 02-20 IV Push, ity of (PF)) 23:23: Q6HPRN, [place] injection 4 08 Starting Medi feliciano mg [...] 02-20 Oral, ity of (TYLENOL) 23:22: Q6HPRN, [place] tablet 650 56 Starting Medic al mg Wed02/21/20 at 1822, Until Discontinu ed, Routine, Pain (scale 1-3) cefTRIAXone 2019- No 1000mg 1,000 mg, Univers (ROCEPHIN) 02-20 IV ity of 1,000 mg in 16:00: 03:51 [place], [place] NaCl 0.9% 00 :59 Q12H ABX, [...] 1,000 mL 00 :00 IV Medical Piggyback, [place] ONCE, 1 dose, 02/21/20 at 1100, STAT doxycycline 2020-0 2020- No 100mg 100 mg, U nivers hyclate 02-14 Oral, ity of (Vibramycin 01:45: 00:41 ONCE, 1 [place] capsule 00 :00 dose, Wed Medic al 100 mg 02/14/20 at [place] 204, SHANE
Re ason for Anti-Infec tive: Documented Infection< br>Documen leann Infection Site: Respirator y
Durat ion of Therapy: 7 days ondansetron 2019-0 2020- No 4mg 4 mg, Slow Univers (ZOFRAN 02-14 IV Push, ity of (PF)) 00:45: 23:43 ONCE, 1 [place] injection 4 00 :00 dose, Wed Med ical mg 02/14/20 at [place] 194, SHANE acetaminoph 2019- 2020- No 650mg [...] d 0 mL 00 :00 02/14/20 at [facility] 1900, [place] Routine iohexol 2019-0 2020- No 120mL 120 mL, Unive rs (OMNIPAQUE 02-13 Intravenou it y of 350 23:45: 23:30 s, ONCE, 1 [place] BULK-150 00 :00 dose, Wed Medica l mL) 02/14/20 at [place] injection 1845, 120 mL Routine NaCl 0.9% [...] by mouth ity of capsule 19:27: daily. [place] [address] Medical Branch fluticasone 2020-0 Yes Inhale. Uni vers /umeclidin/ 02-13 ity of vilanter 19:27: [place] ([place] [address] Medical ELLIPTA Branch INHALE) omeprazole 2020-0 Yes 40mg Take 40 mg U nivers 40 mg 7-22 by mouth ity of capsule 19:27: daily. [address] Branch fluticasone 2020-0 Yes Inhale. Uni vers /umeclidin/ 02-13 ity of vilanter 19:27: [place] ([place] [address] Medical ELLIPTA Branch INHALE) omeprazole 2020-0 Yes 40mg Take 40 mg U nivers 40 mg 7-22 by mouth ity of capsule 19:27: daily. [address] Branch fluticasone 2020-0 Yes Inhale. Uni vers /umeclidin/ 02-13 ity of vilanter 19:27: [place] ([place] [address] Medical ELLIPTA Branch INHALE) omeprazole 2020-0 Yes 40mg Take 40 mg U nivers 40 mg 7-22 by mouth ity of capsule 19:27: daily. [address] Branch fluticasone 2020-0 Yes Inhale. Uni vers /umeclidin/ 02-13 ity of vilanter 19:27: [place] ([place] [address] Medical ELLIPTA Branch INHALE) omeprazole 2020-0 Yes 40mg Take 40 mg U nivers 40 mg 7-22 by mouth ity of capsule 19:27: daily. [address] Branch fluticasone 2020-0 Yes Inhale. Uni vers /umeclidin/ 02-13 ity of vilanter 19:27: [place] ([place] [address] Medical ELLIPTA Branch INHALE) omeprazole 2020-0 Yes 40mg Take 40 mg U nivers 40 mg 7-22 by mouth ity of capsule 19:27: daily. [address] Branch fluticasone 2020-0 Yes Inhale. Uni vers /umeclidin/ 7-22 ity of vilanter 19:27: [place] ([address] INHALE) omeprazole 2020-0 Yes 40mg Take 40 mg U nivers 40 mg - by mouth ity of capsule 19:27: daily. [address] fluticasone 2020-0 Yes Inhale. Uni vers /umeclidin/ 02-13 ity of vilanter 19:27: [place] ([address] INHALE) doxycycline 2019-0 2020- No [id number] 100mg Take 1 Univers hyclate 100 7- 07-30 capsule by i ty of mg capsule 00:00: 04:59 mouth 2 [place] 00 :00 (two) Medical times Branch daily for 7 days. doxycycline 2020-0 2020- No [id number] 100mg Take 1 Univers hyclate 100 7- 07-30 capsule by i ty of mg capsule 00:00: 04:59 mouth 2 [place] 00 :00 (two) Medical times Branch daily for 7 days. doxycycline 2020-0 2020- No [id number] 100mg Take 1 Univers hyclate 100 - 07-30 capsule by i ty of mg capsule 00:00: 04:59 mouth 2 [place] 00 :00 (two) Medical times Branch daily for 7 days. doxycycline 2020-0 2020- No [id number] 100mg Take 1 Univers hyclate 100 - 07-30 capsule by i ty of mg capsule 00:00: 04:59 mouth 2 [place] 00 :00 (two) Medical times Branch daily for 7 days. doxycycline 2020-0 2020- No [id number] 100mg Take 1 Univers hyclate 100 02-13 07-29 capsule by i ty of mg capsule 00:00: 00:00 mouth 2 [place] 00 :00 (two) Medical times Branch daily for 7 days. morpHINE 2019-0 2020- No 4mg 4 mg, Slow Un bogdan injection 4 01-02-10 IV Push, ity of mg 20:45: 19:33 ONCE, 1 [place] 00 :00 dose, Wed Medical 01/03/20 at [...] at Branch 1315, SHANE ondansetron 2020-0 Yes [id number] 4mg Take 1 Univers 4 mg 6-10 tablet by ity of disintegrat 00:00: mouth [place] ing tablet 00 every 4 Medica l (four) Branch hours as needed for Nausea and Vomiting (N/V). ondansetron 2020-0 Yes [id number] 4mg Take 1 Univers 4 mg 6-10 tablet by ity of disintegrat 00:00: mouth [place] ing tablet 00 every 4 Medica l (four) Branch hours as needed for Nausea and Vomiting (N/V). ondansetron 2020-0 Yes [id number] 4mg Take 1 Univers 4 mg 6-10 tablet by ity of disintegrat 00:00: mouth [place] ing tablet 00 every 4 Medica l (four) Branch hours as needed for Nausea and Vomiting (N/V). ondansetron 2020-0 Yes [id number] 4mg Take 1 Univers 4 mg 6-10 tablet by ity of disintegrat 00:00: mouth [place] ing tablet 00 every 4 Medica l (four) Branch hours as needed for Nausea and Vomiting (N/V). ondansetron 2020-0 Yes [id number] 4mg Take 1 Univers 4 mg 6-10 tablet by ity of disintegrat 00:00: mouth [place] ing tablet 00 every 4 Medica l (four) Branch hours as needed for Nausea and Vomiting (N/V). ondansetron 2020-0 Yes [id number] 4mg Take 1 Univers 4 mg 6-10 tablet by ity of disintegrat 00:00: mouth [place] ing tablet 00 every 4 Medica l (four) Branch hours as needed for Nausea and Vomiting (N/V). ondansetron 2020-0 Yes [id number] 4mg Take 1 Univers 4 mg 6-10 tablet by ity of disintegrat 00:00: mouth [place] ing tablet 00 every 4 Medica l (four) Branch hours as needed for Nausea and Vomiting (N/V). ondansetron 2020-0 Yes [id number] 4mg Take 1 Univers 4 mg 6-10 tablet by ity of disintegrat 00:00: mouth [place] ing tablet 00 every 4 Medica l (four) Branch hours as needed for Nausea and Vomiting (N/V). ondansetron 2020-0 Yes [id number] 4mg Take 1 Univers 4 mg 6-10 tablet by ity of disintegrat 00:00: mouth [place] ing tablet 00 every 4 Medica l (four) Branch hours as needed for Nausea and Vomiting (N/V). ondansetron 2020-0 Yes [id number] 4mg Take 1 Univers 4 mg 6-10 tablet by ity of disintegrat 00:00: mouth [place] ing tablet 00 every 4 Medica l (four) Branch hours as needed for Nausea and Vomiting (N/V). ondansetron 2020-0 Yes [id number] 4mg Take 1 Univers 4 mg 6-10 tablet by ity of disintegrat 00:00: mouth [place] ing tablet 00 every 4 Medica l (four) Branch hours as needed for Nausea and Vomiting (N/V). ondansetron 2020-0 Yes [id number] 4mg Take 1 Univers 4 mg 6-10 tablet by ity of disintegrat 00:00: mouth [place] ing tablet 00 every 4 Medica l (four) Branch hours as needed for Nausea and Vomiting (N/V). ondansetron 2020-0 Yes [id number] 4mg Take 1 Univers 4 mg 6-10 tablet by ity of disintegrat 00:00: mouth [place] ing tablet 00 every 4 Medica l (four) Branch hours as needed for Nausea and Vomiting (N/V). ondansetron 2020-0 Yes [id number] 4mg Take 1 Univers 4 mg 6-10 tablet by ity of disintegrat 00:00: mouth [place] ing tablet 00 every 4 Medica l (four) Branch hours as needed for Nausea and Vomiting (N/V). ondansetron 2020-0 Yes [id number] 4mg Take 1 Univers 4 mg 6-10 tablet by ity of disintegrat 00:00: mouth [place] ing tablet 00 every 4 Medica l (four) Branch hours as needed for Nausea and Vomiting (N/V). ondansetron 2020-0 Yes [id number] 4mg Take 1 Univers 4 mg 6-10 tablet by ity of disintegrat 00:00: mouth [place] ing tablet 00 every 4 Medica l (four) Branch hours as needed for Nausea and Vomiting (N/V). ondansetron 2020-0 Yes [id number] 4mg Take 1 Univers 4 mg 6-10 tablet by ity of disintegrat 00:00: mouth [place] ing tablet 00 every 4 Medica l (four) Branch hours as needed for Nausea and Vomiting (N/V). ondansetron 2020-0 Yes [id number] 4mg Take 1 Univers 4 mg 6-10 tablet by ity of disintegrat 00:00: mouth [place] ing tablet 00 every 4 Medica l (four) Branch hours as needed for Nausea and Vomiting (N/V). ondansetron 2020-0 Yes [id number] 4mg Take 1 Univers 4 mg 6-10 [...] mouth ity of capsule 20:24: daily. [address] fluticasone 2020-0 Yes Inhale. Uni vers /umeclidin/ 5-15 ity of vilanter 20:24: [place] ([address] ELLIPTA Branch INHALE) albuterol 2020-0 Yes [...] mouth ity of capsule 20:24: daily. [address] fluticasone 2020-0 Yes Inhale. Uni vers /umeclidin/ 5-15 ity of vilanter 20:24: [place] ([facility] 14 [facility] ELLIPTA Branch INHALE) albuterol 2020-0 Yes [...] mouth ity of capsule 20:24: daily. [address] fluticasone 2020-0 Yes Inhale. Uni vers /umeclidin/ 5-15 ity of vilanter 20:24: [place] ([address] ELLIPTA Branch INHALE) albuterol 2020-0 Yes [...] mouth ity of capsule 20:24: daily. [address] fluticasone 2020-0 Yes Inhale. Uni vers /umeclidin/ 5-15 ity of vilanter 20:24: [place] ([address] Branch INHALE) albuterol 2020-0 Yes 2{puff} [...] by mouth ity of capsule 20:24: daily. [address] Branch fluticasone 2020-0 Yes Inhale. Uni vers /umeclidin/ 5-15 ity of vilanter 20:24: [place] ([facility] 14 Medical ELLIPTA Branch INHALE) albuterol 2020-0 [...] mouth ity of capsule 20:24: daily. [address] fluticasone 2020-0 Yes Inhale. Uni vers /umeclidin/ 5-15 ity of vilanter 20:24: [place] ([address] Branch INHALE) albuterol 2020-0 Yes 2{puff} [...] mouth ity of capsule 20:24: daily. [address] fluticasone 2020-0 Yes Inhale. Uni vers /umeclidin/ 5-15 ity of vilanter 20:24: [place] ([address] ELLIPTA Branch INHALE) albuterol 2020-0 Yes [...] mouth ity of capsule 20:24: daily. [address] fluticasone 2020-0 Yes Inhale. Uni vers /umeclidin/ 5-15 ity of vilanter 20:24: [place] ([address] Branch INHALE) albuterol 2020-0 Yes 2{puff} [...] mouth ity of capsule 20:24: daily. [address] fluticasone 2020-0 Yes Inhale. Uni vers /umeclidin/ 5-15 ity of vilanter 20:24: [place] ([address] Branch INHALE) albuterol 2020-0 Yes 2{puff} [...] by mouth ity of capsule 20:24: daily. [place] 14 Medical Branch fluticasone 2020-0 Yes Inhale. Uni vers /umeclidin/ 5-15 ity of vilanter 20:24: [place] ([facility] 14 Medical ELLIPTA Branch INHALE) albuterol [...] 0745, 50 piggyback mL simethicone 2020-0 Yes [id number] 80mg Take 1 Univers 80 mg 5-15 tablet by ity of chewable 00:00: mouth [place] tablet 00 after Medical meals and Branch at bedtime. HYDROcodone 2020-0 Yes [id number] 7.5mg Take 15 mL Univers -acetaminop 5-15 by mouth ity of hen 7.5-325 00:00: every 4 [place] mg/15 mL 00 (four) Medical solution hours as Branch needed for Pain (scale 4-6) or Pain (scale 7-10). proMETHazin 2020-0 Yes [id number] 12.5mg Take 1 Univers e 12.5 mg 5-15 tablet by ity o f tablet 00:00: mouth [place] 00 every 6 Medical (six) Branch hours as needed for Nausea and Vomiting (N/V) or N/V alternatin g with Ondansetro n. simethicone 2020-0 Yes [id number] 80mg Take 1 Univers 80 mg 5-15 tablet by ity of chewable 00:00: mouth [place] tablet 00 after Medical meals and Branch at bedtime. HYDROcodone 2020-0 Yes [id number] 7.5mg Take 15 mL Univers -acetaminop 5-15 by mouth ity of hen 7.5-325 00:00: every 4 [place] mg/15 mL 00 (four) Medical solution hours as Branch needed for Pain (scale 4-6) or Pain (scale 7-10). proMETHazin 2020-0 Yes [id number] 12.5mg Take 1 Univers e 12.5 mg 5-15 tablet by ity o f tablet 00:00: mouth [place] 00 every 6 Medical (six) Branch hours as needed for Nausea and Vomiting (N/V) or N/V alternatin g with Ondansetro n. simethicone 2020-0 Yes [id number] 80mg Take 1 Univers 80 mg 5-15 tablet by ity of chewable 00:00: mouth [place] tablet 00 after Medical meals and Branch at bedtime. HYDROcodone 2020-0 Yes [id number] 7.5mg Take 15 mL Univers -acetaminop 5-15 by mouth ity of hen 7.5-325 00:00: every 4 [place] mg/15 mL 00 (four) Medical solution hours as Branch needed for Pain (scale 4-6) or Pain (scale 7-10). proMETHazin 2020-0 Yes [id number] 12.5mg Take 1 Univers e 12.5 mg 5-15 tablet by ity o f tablet 00:00: mouth [place] 00 every 6 Medical (six) Branch hours as needed for Nausea and Vomiting (N/V) or N/V alternatin g with Ondansetro n. simethicone 2020-0 Yes [id number] 80mg Take 1 Univers 80 mg 5-15 tablet by ity of chewable 00:00: mouth [place] tablet 00 after Medical meals and Branch at bedtime. HYDROcodone 2020-0 Yes [id number] 7.5mg Take 15 mL Univers -acetaminop 5-15 by mouth ity of hen 7.5-325 00:00: every 4 [place] mg/15 mL 00 (four) Medical solution hours as Branch needed for Pain (scale 4-6) or Pain (scale 7-10). proMETHazin 2020-0 Yes [id number] 12.5mg Take 1 [facility] e 12.5 mg 5-15 tablet by ity o f tablet 00:00: mouth [place] 00 every 6 Medical (six) Branch hours as needed for Nausea and Vomiting (N/V) or N/V alternatin g with Ondansetro n. simethicone 2020-0 Yes [id number] 80mg Take 1 [facility] 80 mg 5-15 tablet by ity of chewable 00:00: mouth [place] tablet 00 after Medical meals and Branch at bedtime. HYDROcodone 2020-0 Yes [id number] 7.5mg Take 15 mL [facility] -acetaminop 5-15 by mouth ity of hen 7.5-325 00:00: every 4 [place] mg/15 mL 00 (four) Medical solution hours as Branch needed for Pain (scale 4-6) or Pain (scale 7-10). proMETHazin 2020-0 Yes [id number] 12.5mg Take 1 [facility] e 12.5 mg 5-15 tablet by ity o f tablet 00:00: mouth [place] 00 every 6 Medical (six) Branch hours as needed for Nausea and Vomiting (N/V) or N/V alternatin g with Ondansetro n. simethicone 2020-0 Yes [id number] 80mg Take 1 [facility] 80 mg 5-15 tablet by ity of chewable 00:00: mouth [place] tablet 00 after Medical meals and Branch at bedtime. HYDROcodone 2020-0 Yes [id number] 7.5mg Take 15 mL [facility] -acetaminop 5-15 by mouth ity of hen 7.5-325 00:00: every 4 [place] mg/15 mL 00 (four) Medical solution hours as Branch needed for Pain (scale 4-6) or Pain (scale 7-10). proMETHazin 2020-0 Yes [id number] 12.5mg Take 1 [facility] e 12.5 mg 5-15 tablet by ity o f tablet 00:00: mouth [place] 00 every 6 Medical (six) Branch hours as needed for Nausea and Vomiting (N/V) or N/V alternatin g with Ondansetro n. simethicone 2020-0 Yes [id number] 80mg Take 1 [facility] 80 mg 5-15 tablet by ity of chewable 00:00: mouth [place] tablet 00 after Medical meals and Branch at bedtime. HYDROcodone 2020-0 Yes [id number] 7.5mg Take 15 mL [facility] -acetaminop 5-15 by mouth ity of hen 7.5-325 00:00: every 4 [place] mg/15 mL 00 (four) Medical solution hours as Branch needed for Pain (scale 4-6) or Pain (scale 7-10). proMETHazin 2020-0 Yes [id number] 12.5mg Take 1 [facility] e 12.5 mg 5-15 tablet by ity o f tablet 00:00: mouth [place] 00 every 6 Medical (six) Branch hours as needed for Nausea and Vomiting (N/V) or N/V alternatin g with Ondansetro n. simethicone 2020-0 Yes [id number] 80mg Take 1 [facility] 80 mg 5-15 tablet by ity of chewable 00:00: mouth [place] tablet 00 after Medical meals and Branch at bedtime. HYDROcodone 2020-0 Yes [id number] 7.5mg Take 15 mL [facility] -acetaminop 5-15 by mouth ity of hen 7.5-325 00:00: every 4 [place] mg/15 mL 00 (four) Medical solution hours as Branch needed for Pain (scale 4-6) or Pain (scale 7-10). proMETHazin 2020-0 Yes [id number] 12.5mg Take 1 [facility] e 12.5 mg 5-15 tablet by ity o f tablet 00:00: mouth [place] 00 every 6 Medical (six) Branch hours as needed for Nausea and Vomiting (N/V) or N/V alternatin g with Ondansetro n. simethicone 2020-0 Yes [id number] 80mg Take 1 [facility] 80 mg 5-15 tablet by ity of chewable 00:00: mouth [place] tablet 00 after Medical meals and Branch at bedtime. HYDROcodone 2020-0 Yes [id number] 7.5mg Take 15 mL [facility] -acetaminop 5-15 by mouth ity of hen 7.5-325 00:00: every 4 [place] [facility] mg/15 mL 00 (four) Medical solution hours as Branch needed for Pain (scale 4-6) or Pain (scale 7-10). proMETHazin 2020-0 Yes [id number] 12.5mg Take 1 [facility] e 12.5 mg 5-15 tablet by ity o f tablet 00:00: mouth [place] 00 every 6 Medical (six) Branch hours as needed for Nausea and Vomiting (N/V) or N/V alternatin g with Ondansetro n. simethicone 2020-0 Yes [id number] 80mg Take 1 [facility] 80 mg 5-15 tablet by ity of chewable 00:00: mouth [place] tablet 00 after Medical meals and Branch at bedtime. HYDROcodone 2020-0 Yes [id number] 7.5mg Take 15 mL [facility] -acetaminop 5-15 by mouth ity of hen 7.5-325 00:00: every 4 [place] mg/15 mL 00 (four) Medical solution hours as Branch needed for Pain (scale 4-6) or Pain (scale 7-10). proMETHazin 2020-0 Yes [id number] 12.5mg Take 1 [facility] e 12.5 mg 5-15 tablet by ity o f tablet 00:00: mouth [place] 00 every 6 Medical (six) Branch hours as needed for Nausea and Vomiting (N/V) or N/V alternatin g with Ondansetro n. simethicone 2020-0 Yes [id number] 80mg Take 1 [facility] 80 mg 5-15 tablet by ity of chewable 00:00: mouth [place] tablet 00 after Medical meals and Branch at bedtime. HYDROcodone 2020-0 Yes [id number] 7.5mg Take 15 mL [facility] -acetaminop 5-15 by mouth ity of hen 7.5-325 00:00: every 4 [place] mg/15 mL 00 (four) Medical solution hours as Branch needed for Pain (scale 4-6) or Pain (scale 7-10). proMETHazin 2020-0 Yes [id number] 12.5mg Take 1 [facility] e 12.5 mg 5-15 tablet by ity o f tablet 00:00: mouth [place] 00 every 6 Medical (six) Branch hours as needed for Nausea and Vomiting (N/V) or N/V alternatin g with Ondansetro n. simethicone 2020-0 Yes [id number] 80mg Take 1 [facility] 80 mg 5-15 tablet by ity of chewable 00:00: mouth [place] tablet 00 after Medical meals and Branch at bedtime. HYDROcodone 2020-0 Yes [id number] 7.5mg Take 15 mL [facility] -acetaminop 5-15 by mouth ity of hen 7.5-325 00:00: every 4 [place] mg/15 mL 00 (four) Medical solution hours as Branch needed for Pain (scale 4-6) or Pain (scale 7-10). proMETHazin 2020-0 Yes [id number] 12.5mg Take 1 [facility] e 12.5 mg 5-15 tablet by ity o f tablet 00:00: mouth [place] 00 every 6 Medical (six) Branch hours as needed for Nausea and Vomiting (N/V) or N/V alternatin g with Ondansetro n. simethicone 2020-0 Yes [id number] 80mg Take 1 [facility] 80 mg 5-15 tablet by ity of chewable 00:00: mouth [place] tablet 00 after Medical meals and Branch at bedtime. HYDROcodone 2020-0 Yes [id number] 7.5mg Take 15 mL [facility] -acetaminop 5-15 by mouth ity of hen 7.5-325 00:00: every 4 [place] mg/15 mL 00 (four) Medical solution hours as Branch needed for Pain (scale 4-6) or Pain (scale 7-10). proMETHazin 2020-0 Yes [id number] 12.5mg Take 1 [facility] e 12.5 mg 5-15 tablet by ity o f tablet 00:00: mouth [place] 00 every 6 Medical (six) Branch hours as needed for Nausea and Vomiting (N/V) or N/V alternatin g with Ondansetro n. simethicone 2020-0 Yes [id number] 80mg Take 1 [facility] 80 mg 5-15 tablet by ity of chewable 00:00: mouth [place] tablet 00 after Medical meals and Branch at bedtime. HYDROcodone 2020-0 Yes [id number] 7.5mg Take 15 mL [facility] -acetaminop 5-15 by mouth ity of hen 7.5-325 00:00: every 4 [place] mg/15 mL 00 (four) Medical solution hours as Branch needed for Pain (scale 4-6) or Pain (scale 7-10). proMETHazin 2020-0 Yes [id number] 12.5mg Take 1 [facility] e 12.5 mg 5-15 tablet by ity o f tablet 00:00: mouth [place] 00 every 6 Medical (six) Branch hours as needed for Nausea and Vomiting (N/V) or N/V alternatin g with Ondansetro n. simethicone 2020-0 Yes [id number] 80mg Take 1 [facility] 80 mg 5-15 tablet by ity of chewable 00:00: mouth [place] tablet 00 after Medical meals and Branch at bedtime. HYDROcodone 2020-0 Yes [id number] 7.5mg Take 15 mL [facility] -acetaminop 5-15 by mouth ity of hen 7.5-325 00:00: every 4 [place] mg/15 mL 00 (four) Medical solution hours as Branch needed for Pain (scale 4-6) or Pain (scale 7-10). proMETHazin 2020-0 Yes [id number] 12.5mg Take 1 [facility] e 12.5 mg 5-15 tablet by ity o f tablet 00:00: mouth [place] 00 every 6 Medical (six) Branch hours as needed for Nausea and Vomiting (N/V) or N/V alternatin g with Ondansetro n. simethicone 2020-0 Yes [id number] 80mg Take 1 [facility] 80 mg 5-15 tablet by ity of chewable 00:00: mouth [place] tablet 00 after Medical meals and Branch at bedtime. HYDROcodone 2020-0 Yes [id number] 7.5mg Take 15 mL [facility] -acetaminop 5-15 by mouth ity of hen 7.5-325 00:00: every 4 [place] mg/15 mL 00 (four) Medical solution hours as Branch needed for Pain (scale 4-6) or Pain (scale 7-10). proMETHazin 2020-0 Yes [id number] 12.5mg Take 1 [facility] e 12.5 mg 5-15 tablet by ity o f tablet 00:00: mouth [place] 00 every 6 Medical (six) Branch hours as needed for Nausea and Vomiting (N/V) or N/V alternatin g with Ondansetro n. simethicone 2020-0 Yes [id number] 80mg Take 1 [facility] 80 mg 5-15 tablet by ity of chewable 00:00: mouth [place] tablet 00 after Medical meals and Branch at bedtime. HYDROcodone 2020-0 Yes [id number] 7.5mg Take 15 mL [facility] -acetaminop 5-15 by mouth ity of hen 7.5-325 00:00: every 4 [place] [facility] mg/15 mL 00 (four) Medical solution hours as Branch needed for Pain (scale 4-6) or Pain (scale 7-10). proMETHazin 2020-0 Yes [id number] 12.5mg Take 1 [facility] e 12.5 mg 5-15 tablet by ity o f tablet 00:00: mouth [place] 00 every 6 Medical (six) Branch hours as needed for Nausea and Vomiting (N/V) or N/V alternatin g with Ondansetro n. simethicone 2020-0 Yes [id number] 80mg Take 1 [facility] 80 mg 5-15 tablet by ity of chewable 00:00: mouth [place] tablet 00 after Medical meals and Branch at bedtime. HYDROcodone 2020-0 Yes [id number] 7.5mg Take 15 mL [facility] -acetaminop 5-15 by mouth ity of hen 7.5-325 00:00: every 4 [place] [facility] mg/15 mL 00 (four) Medical solution hours as Branch needed for Pain (scale 4-6) or Pain (scale 7-10). proMETHazin 2020-0 Yes [id number] 12.5mg Take 1 [facility] e 12.5 mg 5-15 tablet by ity o f tablet 00:00: mouth [place] 00 every 6 Medical (six) Branch hours as needed for Nausea and Vomiting (N/V) or N/V alternatin g with Ondansetro n. simethicone 2020-0 Yes [id number] 80mg Take 1 [facility] 80 mg 5-15 tablet by ity of chewable 00:00: mouth [place] tablet 00 after Medical meals and Branch at bedtime. HYDROcodone 2020-0 Yes [id number] 7.5mg Take 15 mL [facility] -acetaminop 5-15 by mouth ity of hen 7.5-325 00:00: every 4 [place] mg/15 mL 00 (four) Medical solution hours as Branch needed for Pain (scale 4-6) or Pain (scale 7-10). proMETHazin 2020-0 Yes [id number] 12.5mg Take 1 [facility] e 12.5 mg 5-15 tablet by ity o f tablet 00:00: mouth [place] 00 every 6 Medical (six) Branch hours as needed for Nausea and Vomiting (N/V) or N/V alternatin g with Ondansetro n. simethicone 2020-0 Yes [id number] 80mg Take 1 [facility] 80 mg 5-15 tablet by ity of chewable 00:00: mouth [place] tablet 00 after Medical meals and Branch at bedtime. HYDROcodone 2020-0 Yes [id number] 7.5mg Take 15 mL [facility] -acetaminop 5-15 by mouth ity of hen 7.5-325 00:00: every 4 [place] mg/15 mL 00 (four) Medical solution hours as Branch needed for Pain (scale 4-6) or Pain (scale 7-10). proMETHazin 2020-0 Yes [id number] 12.5mg Take 1 [facility] e 12.5 mg 5-15 tablet by ity o f tablet 00:00: mouth [place] 00 every 6 Medical (six) Branch hours as needed for Nausea and Vomiting (N/V) or N/V alternatin g with Ondansetro n. simethicone 2020-0 Yes [id number] 80mg Take 1 [facility] 80 mg 5-15 tablet by ity of chewable 00:00: mouth [place] tablet 00 after Medical meals and Branch at bedtime. HYDROcodone 2020-0 Yes [id number] 7.5mg Take 15 mL [facility] -acetaminop 5-15 by mouth ity of hen 7.5-325 00:00: every 4 [place] mg/15 mL 00 (four) Medical solution hours as Branch needed for Pain (scale 4-6) or Pain (scale 7-10). proMETHazin 2020-0 Yes [id number] 12.5mg Take 1 [facility] e 12.5 mg 5-15 tablet by ity o f tablet 00:00: mouth [place] 00 every 6 Medical (six) Branch hours as needed for Nausea and Vomiting (N/V) or N/V alternatin g with Ondansetro n. simethicone 2020-0 Yes [id number] 80mg Take 1 [facility] 80 mg 5-15 tablet by ity of chewable 00:00: mouth [place] tablet 00 after Medical meals and Branch at bedtime. HYDROcodone 2020-0 Yes [id number] 7.5mg Take 15 mL [facility] -acetaminop 5-15 by mouth ity of hen 7.5-325 00:00: every 4 [place] mg/15 mL 00 (four) Medical solution hours as Branch needed for Pain (scale 4-6) or Pain (scale 7-10). proMETHazin 2020-0 Yes [id number] 12.5mg Take 1 [facility] e 12.5 mg 5-15 tablet by ity o f tablet 00:00: mouth [place] 00 every 6 Medical (six) Branch hours as needed for Nausea and Vomiting (N/V) or N/V alternatin g with Ondansetro n. simethicone 2020-0 Yes [id number] 80mg Take 1 [facility] 80 mg 5-15 tablet by ity of chewable 00:00: mouth [place] tablet 00 after Medical meals and Branch at bedtime. HYDROcodone 2020-0 Yes [id number] 7.5mg Take 15 mL [facility] -acetaminop 5-15 by mouth ity of hen 7.5-325 00:00: every 4 [place] mg/15 mL 00 (four) Medical solution hours as Branch needed for Pain (scale 4-6) or Pain (scale 7-10). proMETHazin 2020-0 Yes [id number] 12.5mg Take 1 [facility] e 12.5 mg 5-15 tablet by ity o f tablet 00:00: mouth [place] 00 every 6 Medical (six) Branch hours as needed for Nausea and Vomiting (N/V) or N/V alternatin g with Ondansetro n. simethicone 2020-0 Yes [id number] 80mg Take 1 [facility] 80 mg 5-15 tablet by ity of chewable 00:00: mouth [place] tablet 00 after Medical meals and Branch at bedtime. HYDROcodone 2020-0 Yes [id number] 7.5mg Take 15 mL [facility] -acetaminop 5-15 by mouth ity of hen 7.5-325 00:00: every 4 [place] mg/15 mL 00 (four) Medical solution hours as Branch needed for Pain (scale 4-6) or Pain (scale 7-10). proMETHazin 2020-0 Yes [id number] 12.5mg Take 1 [facility] e 12.5 mg 5-15 tablet by ity o f tablet 00:00: mouth [place] 00 every 6 Medical (six) Branch hours as needed for Nausea and Vomiting (N/V) or N/V alternatin g with Ondansetro n. simethicone 2020-0 Yes [id number] 80mg Take 1 [facility] 80 mg 5-15 tablet by ity of chewable 00:00: mouth [place] tablet 00 after Medical meals and Branch at bedtime. HYDROcodone 2020-0 Yes [id number] 7.5mg Take 15 mL [facility] -acetaminop 5-15 by mouth ity of hen 7.5-325 00:00: every 4 [place] mg/15 mL 00 (four) Medical solution hours as Branch needed for Pain (scale 4-6) or Pain (scale 7-10). proMETHazin 2020-0 Yes [id number] 12.5mg Take 1 [facility] e 12.5 mg [...] Breath proMETHazin 2020-0 Yes 12.5mg 12.5 mg, [facility] e 12-06 Oral, ity of (PHENERGAN) 12:44: Q4HPRN, [place] as tablet 12.5 01 Starting Medi feliciano mg [facility] 12/07/19 at 0744, Until Discontinu ed, Routine, Nausea and Vomiting (N/V), N/V alternatin g with Ondansetro n albuterol 2020-0 Yes 2.5mg 2.5 mg, Univ ers (PROVENTIL) 12-05 Inhalation it y of 2.5 mg /3 22:45: , Q4HPRN, [place] as mL (0.083 00 Starting Medica l %) [facility] nebulizer 12/06/19 at solution 1745, 2.5 mg Until Discontinu ed, Routine, Shortness of Breath, Wheezing ALPRAZolam 2019-0 Yes .5mg 0.5 mg, [facility] ers (XANAX) 12-05 Oral, ity of tablet 0.5 19:33: BIDPRN, [place] mg 05 Starting Medical [facility] 12/06/19 at 1433, Until Discontinu ed, Routine, anxiety acetaminoph 2019-0 Yes 650mg 650 mg, Un bogdan en 12-05 Oral, ity of (TYLENOL) 19:25: Q4HPRN, [place] 160 mg/5 mL 38 Starting Medi feliciano liquid 650 [facility] 12/06/19 at 1425, Until Discontinu ed, Routine, [...] 5-12 IV Push, ity of mg 21:29: [place], [place] 52 Starting Medical Tue Branch 12/05/19 [...] (scale 4-6) phenol 2020-0 Yes 1{spray 1 [place], Univ ers (SORE -12 } Oral, PRN, ity of THROAT 21:07: Starting [place] (PHENOL)) 21 Tue Medical 1.4 % spray 12/05/19 at Br anch bottle 1 1607, [place] Until Discontinu ed, Routine, Sore throat barium [...] feliciano 0.2 mg 10 doses, Branch Starting [facility] 12/05/19 at 1010, Until Wed12/05/19 at 1125, Routine, Pain (scale 7-10), PACU
Us e approved by (Faculty): PACU USE -ANESTHESI A SERVICE-HY DROMORPHON E INJECTIONS FENTanyl PF 2019-0 2020- No 25ug 25 mcg, Un bogdan (SUBLIMAZE 12-04-12 Slow IV ity o f (PF)) 15:10: 16:25 Push, [place] injection 21 :41 Q5MIN PRN, Medi feliciano 25 mcg 4 doses, Branch Starting [facility] 12/05/19 at 1010, Until Wed12/05/19 [...] by mouth ity of capsule 20:55: daily. [address] omeprazole 2020-0 Yes 40mg Take 40 mg U nivers 40 mg 4-28 by mouth ity of capsule 20:55: daily. [address] omeprazole 2020-0 Yes 40mg Take 40 mg U nivers 40 mg 4-28 by mouth ity of capsule 20:55: daily. [address] omeprazole 2020-0 Yes 40mg Take 40 mg U nivers 40 mg 4-28 by mouth ity of capsule 20:55: daily. [address] cefdinir 2020-0 2020- No 300mg Take 300 Uni vers 300 mg 4-28 04-28 mg by ity of capsule 20:52: 00:00 mouth [place] 58 :00 every 24 Medical (twenty-fo Branch ur) hours. carvedilol 2020-0 Yes 3.125mg Take 3.125 Univers 3.125 mg 3-04 mg by ity of tablet 18:12: mouth 2 [place] [id number] ([facility]) Medical times [place] daily with meals. dextroamphe 2020-0 Yes 30mg [...] mg by ity of capsule 18:12: mouth [place] 47 every 24 Medical (twenty-fo Branch ur) hours. carvedilol 2020-0 Yes 3.125mg Take 3.125 [facility] 3.125 mg 3-04 mg by ity of tablet 18:12: mouth 2 [place] 47 (two) Medical times Branch daily with [...] by ity of tablet 18:12: mouth 2 [place] 47 (two) Medical times Branch daily with [...] by ity of tablet 18:12: mouth 2 [place] 47 (two) Medical times Branch daily with [...] /umeclidin/ 2-26 ity of vilanter 20:33: [place] [facility] ELLIPTA Branch INHALE) cefdinir 2020-0 [...] vers /umeclidin/ 2-26 ity of vilanter 20:33: [place] [facility] ELLIPTA Branch INHALE) cefdinir 2020-0 [...] vers /umeclidin/ 2-26 ity of vilanter 20:33: [place] ([place] [address] Medical ELLIPTA Branch INHALE) albuterol 2020-0 Yes 2{puff} Inhale 2 U nivers (VENTOLIN) 2-26 Puffs ity of 90 20:33: every 6 [place] mcg/actuati 11 (six) Medical on inhaler hours as Branc h needed for Wheezing or Shortness of Breath. fluticasone 2020-0 Yes Inhale. Uni vers /umeclidin/ 2-26 ity of vilanter 20:33: [place] ([place] [address] Medical ELLIPTA Branch INHALE) albuterol 2020-0 Yes 2{puff} Inhale 2 U nivers (VENTOLIN) 2-26 Puffs ity of 90 20:33: every 6 [place] mcg/actuati 11 (six) Medical on inhaler hours as Branc h needed for Wheezing or Shortness of Breath. fluticasone 2020-0 Yes Inhale. Uni vers /umeclidin/ 2-26 ity of vilanter 20:33: [place] ([place] [address] Medical ELLIPTA Branch INHALE) albuterol 2020-0 Yes 2{puff} Inhale 2 U nivers (VENTOLIN) 2-26 Puffs ity of 90 20:33: every 6 [place] mcg/actuati 11 (six) Medical on inhaler hours as Branc h needed for Wheezing or Shortness of Breath. fluticasone 2020-0 Yes Inhale. Uni vers /umeclidin/ 2-26 ity of vilanter 20:33: [place] [facility] ELLIPTA Branch INHALE) albuterol 2020-0 Yes 2{puff} Inhale 2 U nivers (VENTOLIN) 2-26 Puffs ity of 90 20:33: every 6 [place] mcg/actuati 11 (six) Medical on inhaler hours as Branc h needed for Wheezing or Shortness of Breath. fluticasone 2020-0 Yes Inhale. Uni vers /umeclidin/ 2-26 ity of vilanter 20:33: [place] [facility] Branch INHALE) albuterol 2020-0 Yes 2{puff} Inhale 2 U nivers (VENTOLIN) 2-26 Puffs ity of 90 20:33: every 6 [place] mcg/actuati 11 (six) Medical on inhaler hours as Branc h needed for Wheezing or Shortness of Breath. fluticasone 2020-0 Yes Inhale. Uni vers /umeclidin/ 2-26 ity of vilanter 20:33: [place] ([place] [address] Medical ELLIPTA Branch INHALE) albuterol 2020-0 Yes 2{puff} Inhale 2 U nivers (VENTOLIN) 2-26 Puffs ity of 90 20:33: every 6 [place] mcg/actuati 11 (six) Medical on inhaler hours as Branc h needed for Wheezing or Shortness of Breath. fluticasone 2020-0 Yes Inhale. Uni vers /umeclidin/ 2-26 ity of vilanter 20:33: [place] ([facility] 11 Medical ELLIPTA Branch INHALE) albuterol 2020-0 Yes 2{puff} Inhale 2 U nivers (VENTOLIN) 2-26 Puffs ity of 90 20:33: every 6 [place] mcg/actuati 11 (six) Medical on inhaler hours as Branc h needed for Wheezing or Shortness of Breath. fluticasone 2020-0 Yes Inhale. Uni vers /umeclidin/ 2-26 ity of vilanter 20:33: [place] ([facility] Medical ELLIPTA Branch INHALE) albuterol 2020-0 Yes 2{puff} Inhale 2 U nivers (VENTOLIN) 2-26 Puffs ity of 90 20:33: every 6 [place] mcg/actuati 11 (six) Medical on inhaler hours as Branc h needed for Wheezing or Shortness of Breath. fluticasone 2020-0 Yes Inhale. Uni vers /umeclidin/ 2- ity of vilanter 20:33: [place] ([facility] 11 Medical ELLIPTA Branch INHALE) fluticasone 2020-0 Yes Inhale. Uni vers /umeclidin/ 07-27 ity of vilanter 19:44: [place] ([facility] 39 Medical ELLIPTA Branch INHALE) fluticasone 2020-0 Yes Inhale. Uni vers /umeclidin/ 07-27 ity of vilanter 19:44: [place] ([facility] 39 Medical ELLIPTA Branch INHALE) fluticasone 2020-0 Yes Inhale. Uni vers /umeclidin/ 07-27 ity of vilanter 19:44: [place] ([facility] 39 Medical ELLIPTA Branch INHALE) fluticasone 2020-0 Yes Inhale. Uni vers /umeclidin/ 07-27 ity of vilanter 19:44: [place] (T[facility] 39 Medical ELLIPTA Branch INHALE) fluticasone 2020-0 Yes Inhale. Uni vers /umeclidin/ 07-27 ity of vilanter 19:44: [place] (TRELE[facility] 39 Medical ELLIPTA Branch INHALE) predniSONE 2018-07 Yes [id number] 10mg Take 1 Univers 10 mg 0-11 tablet by ity of tablet 00:00: mouth [place] 00 daily. Medical Take with Branch food. predniSONE 2018-07 Yes [id number] 10mg Take 1 [facility] 10 mg 0-11 tablet by ity of tablet 00:00: mouth [place] 00 daily. Medical Take with Branch food. predniSONE 2018-07 Yes [id number] 10mg Take 1 [facility] 10 mg 0-11 tablet by ity of tablet 00:00: mouth [place] 00 daily. Medical Take with Branch food. predniSONE 2018-07 Yes [id number] 10mg Take 1 [facility] 10 mg 0-11 tablet by ity of tablet 00:00: mouth [place] 00 daily. Medical Take with Branch food. predniSONE 2018-07 Yes [id number] 10mg Take 1 [facility] 10 mg 0-11 tablet by ity of tablet 00:00: mouth [place] 00 daily. Medical Take with Branch food. predniSONE 2018- Yes [id number] 10mg Take 1 [facility] 10 mg 0-11 tablet by ity of tablet 00:00: mouth [place] 00 daily. Medical Take with Branch food. predniSONE 2018- Yes [id number] 10mg Take 1 [facility] 10 mg 0-11 tablet by ity of tablet 00:00: mouth [place] 00 daily. Medical Take with Branch food. predniSONE 2018- Yes [id number] 10mg Take 1 [facility] 10 mg 0-11 tablet by ity of tablet 00:00: mouth [place] 00 daily. Medical Take with Branch food. predniSONE 2018- Yes [id number] 10mg Take 1 [facility] 10 mg 0-11 tablet by ity of tablet 00:00: mouth [place] 00 daily. Medical Take with Branch food. predniSONE 2018- Yes [id number] 10mg Take 1 [facility] 10 mg 0-11 tablet by ity of tablet 00:00: mouth [place] 00 daily. Medical Take with Branch food. predniSONE 2018- Yes [id number] 10mg Take 1 [facility] 10 mg 0-11 tablet by ity of tablet 00:00: mouth [place] 00 daily. Medical Take with Branch food. predniSONE 2018- Yes [id number] 10mg Take 1 [facility] 10 mg 0-11 tablet by ity of tablet 00:00: mouth [place] 00 daily. Medical Take with Branch food. predniSONE 2018- Yes [id number] 10mg Take 1 [facility] 10 mg 0-11 tablet by ity of tablet 00:00: mouth [place] 00 daily. Medical Take with Branch food. predniSONE 2018- Yes [id number] 10mg Take 1 [facility] 10 mg 0-11 tablet by ity of tablet 00:00: mouth [place] 00 daily. Medical Take with Branch food. predniSONE 2018- Yes [id number] 10mg Take 1 [facility] 10 mg 0-11 tablet by ity of tablet 00:00: mouth [place] 00 daily. Medical Take with Branch food. predniSONE 2018- Yes [id number] 10mg Take 1 [facility] 10 mg 0-11 tablet by ity of tablet 00:00: mouth [place] 00 daily. Medical Take with Branch food. predniSONE 2018- Yes [id number] 10mg Take 1 [facility] 10 mg 0-11 tablet by ity of tablet 00:00: mouth [place] 00 daily. Medical Take with Branch food. predniSONE 2018- Yes [id number] 10mg Take 1 [facility] 10 mg 0-11 tablet by ity of tablet 00:00: mouth [place] 00 daily. Medical Take with Branch food. predniSONE 2018- Yes [id number] 10mg Take 1 [facility] 10 mg 0-11 tablet by ity of tablet 00:00: mouth [place] 00 daily. Medical Take with Branch food. predniSONE 2018- Yes [id number] 10mg Take 1 [facility] 10 mg 0-11 tablet by ity of tablet 00:00: mouth [place] 00 daily. Medical Take with Branch food. predniSONE 2018- Yes [id number] 10mg Take 1 [facility] 10 mg 0-11 tablet by ity of tablet 00:00: mouth [place] 00 daily. Medical Take with Branch food. predniSONE 2018- Yes [id number] 10mg Take 1 [facility] 10 mg 0-11 tablet by ity of tablet 00:00: mouth [place] 00 daily. Medical Take with Branch food. predniSONE 2018- Yes [id number] 10mg Take 1 [facility] 10 mg 0-11 tablet by ity of tablet 00:00: mouth [place] 00 daily. Medical Take with Branch food. predniSONE 2018- Yes [id number] 10mg Take 1 [facility] 10 mg 0-11 tablet by ity of tablet 00:00: mouth [place] 00 daily. Medical Take with Branch food. predniSONE 2018- Yes [id number] 10mg Take 1 [facility] 10 mg 0-11 tablet by ity of tablet 00:00: mouth [place] 00 daily. Medical Take with Branch food. predniSONE 2018- Yes [id number] 10mg Take 1 [facility] 10 mg 0-11 tablet by ity of tablet 00:00: mouth [place] 00 daily. Medical Take with Branch food. predniSONE 2018- Yes [id number] 10mg Take 1 [facility] 10 mg 0-11 tablet by ity of tablet 00:00: mouth [place] 00 daily. Medical Take with Branch food. predniSONE 2019- Yes [id number] 10mg Take 1 [facility] 10 mg 0-11 tablet by ity of tablet 00:00: mouth [place] 00 daily. Medical Take with Branch food. predniSONE 2018- Yes [id number] 10mg Take 1 [facility] 10 mg 0-11 tablet by ity of tablet 00:00: mouth [place] 00 daily. Medical Take with Branch food. predniSONE 2018- Yes [id number] 10mg Take 1 [facility] 10 mg 0-11 tablet by ity of tablet 00:00: mouth [place] 00 daily. Medical Take with Branch food. predniSONE 2018- Yes [id number] 10mg Take 1 [facility] 10 mg 0-11 tablet by ity of tablet 00:00: mouth [place] 00 daily. Medical Take with Branch food. predniSONE 2018- Yes [id number] 10mg Take 1 [facility] 10 mg 0-11 tablet by ity of tablet 00:00: mouth [place] 00 daily. Medical Take with Branch food. predniSONE 2018- Yes [id number] 10mg Take 1 [facility] 10 mg 0-11 tablet by ity of tablet 00:00: mouth [place] 00 daily. Medical Take with Branch food. predniSONE 2018- Yes [id number] 10mg Take 1 [facility] 10 mg 0-11 tablet by ity of tablet 00:00: mouth [place] 00 daily. Medical Take with Branch food. predniSONE 2018- Yes [id number] 10mg Take 1 [facility] 10 mg 0-11 tablet by ity of tablet 00:00: mouth [place] 00 daily. Medical Take with Branch food. predniSONE 2018- Yes [id number] 10mg Take 1 [facility] 10 mg 0-11 tablet by ity of tablet 00:00: mouth [place] 00 daily. Medical Take with Branch food. predniSONE 2018- Yes [id number] 10mg Take 1 [facility] 10 mg 0-11 tablet by ity of tablet 00:00: mouth [place] 00 daily. Medical Take with Branch food. predniSONE 2018- Yes [id number] 10mg Take 1 [facility] 10 mg 0-11 tablet by ity of tablet 00:00: mouth [place] 00 daily. Medical Take with Branch food. predniSONE 2018- Yes [id number] 10mg Take 1 [facility] 10 mg 0-11 tablet by ity of tablet 00:00: mouth [place] 00 daily. Medical Take with Branch food. predniSONE 2018- Yes [id number] 10mg Take 1 [facility] 10 mg 0-11 tablet by ity of tablet 00:00: mouth [place] 00 daily. Medical Take with Branch food. predniSONE 2018- Yes [id number] 10mg Take 1 [facility] 10 mg 0-11 tablet by ity of tablet 00:00: mouth [place] 00 daily. Medical Take with Branch food. predniSONE 2018- Yes [id number] 10mg Take 1 [facility] 10 mg 0-11 tablet by ity of tablet 00:00: mouth [place] 00 daily. Medical Take with Branch food. predniSONE 2018- Yes [id number] 10mg Take 1 [facility] 10 mg 0-11 tablet by ity of tablet 00:00: mouth daily. Medical Take with Branch food. predniSONE 2019- Yes [id number] 10mg Take 1 [facility] 10 mg 0-11 tablet by ity of tablet 00:00: mouth daily. Medical Take with Branch food. predniSONE 2018- Yes [id number] 10mg Take 1 [facility] 10 mg 0-11 tablet by ity of tablet 00:00: mouth daily. Medical Take with Branch food. omeprazole 2019-0 Yes 40mg Take 40 mg [facility] 40 mg 8-22 by mouth ity of capsule 21:10: daily. [facility] omeprazole 2019-0 Yes 40mg Take 40 mg U nivers 40 mg 8-22 by mouth ity of capsule 21:10: daily. [facility] omeprazole 2019-0 Yes 40mg Take 40 mg U nivers 40 mg 8-22 by mouth ity of capsule 21:10: daily. [facility] omeprazole 2019-0 Yes 40mg Take 40 mg U nivers 40 mg 8-22 by mouth ity of capsule 21:10: daily. [facility] omeprazole 2019-0 Yes 40mg Take 40 mg U nivers 40 mg 8-22 by mouth ity of capsule 21:10: daily. [facility] omeprazole 2019-0 Yes 40mg Take 40 mg U nivers 40 mg 8-22 by mouth ity of capsule 21:10: daily. [facility] omeprazole 2019-0 Yes 40mg Take 40 mg U nivers 40 mg 8-22 by mouth ity of capsule 21:10: daily. [facility] omeprazole 2019-0 Yes 40mg Take 40 mg U nivers 40 mg 8-22 by mouth ity of capsule 21:10: daily. [facility] omeprazole 2019-0 Yes 40mg Take 40 mg U nivers 40 mg 8-22 by mouth ity of capsule 21:10: daily. [facility] omeprazole 2019-0 Yes 40mg Take 40 mg U nivers 40 mg 8-22 by mouth ity of capsule 21:10: daily. [facility] omeprazole 2019-0 Yes 40mg Take 40 mg U nivers 40 mg 8-22 by mouth ity of capsule 21:10: daily. [facility] omeprazole 2019-0 Yes 40mg Take 40 mg U nivers 40 mg 8-22 by mouth ity of capsule 21:10: daily. [place] [facility] omeprazole 2019-0 Yes 40mg Take 40 mg U nivers 40 mg 8-22 by mouth ity of capsule 21:10: daily. [facility] omeprazole 2019-0 Yes 40mg Take 40 mg U nivers 40 mg 8-22 by mouth ity of capsule 21:10: daily. [address] omeprazole 2019-0 Yes 40mg Take 40 mg U nivers 40 mg 8-22 by mouth ity of capsule 21:10: daily. [place] [facility] omeprazole 2019-0 Yes 40mg Take 40 mg U nivers 40 mg 8-22 by mouth ity of capsule 21:10: daily. [address] omeprazole 2019-0 Yes 40mg Take 40 mg U nivers 40 mg 8-22 by mouth ity of capsule 21:10: daily. [address] omeprazole 2019-0 Yes 40mg Take 40 mg U nivers 40 mg 8-22 by mouth ity of capsule 21:10: daily. [address] omeprazole 2019-0 Yes 40mg Take 40 mg [facility] nivers 40 mg 8-22 by mouth ity of capsule 21:10: daily. [address] omeprazole 2019-0 Yes 40mg Take 40 mg [facility] nivers 40 mg 8-22 by mouth ity of capsule 21:10: daily. [address] omeprazole 2019-0 Yes 40mg Take 40 mg [facility]ivers 40 mg 8-22 by mouth ity of capsule 21:10: daily. [address] omeprazole 2019-0 Yes 40mg Take 40 mg U nivers 40 mg 8-22 by mouth ity of capsule 21:10: daily. [address] omeprazole 2019-0 Yes 40mg Take 40 mg [facility] nivers 40 mg 8-22 by mouth ity of capsule 21:10: daily. [address] omeprazole 2019-0 Yes 40mg Take 40 mg [facility] n[facility] 40 mg 8-22 by mouth ity of capsule 21:10: daily. [address] omeprazole 2019-0 Yes 40mg Take 40 mg U nivers 40 mg 8-22 by mouth ity of capsule 21:10: daily. [address] omeprazole 2019-0 Yes 40mg Take 40 mg U nivers 40 mg 8-22 by mouth ity of capsule 21:10: daily. [address] Branch omeprazole 2019- Yes 40mg Take 40 mg U nivers 40 mg 8-22 by mouth ity of capsule 21:10: daily. [address] Branch omeprazole 2019-0 Yes 40mg Take 40 mg U nivers 40 mg 8-22 by mouth ity of capsule 21:10: daily. [address] Branch venlafaxine Yes major 75mg Q.5D [...] 10 MG 14:49: daily. Medical tablet [address] [place] roflumilast 20190 Yes 500ug QD Take 500 C HI [...] Center daily as needed for Anxiety. predniSONE 0 Yes asthma 10mg QD Take 10 mg [...] by mouth. ity of tablet 00:00: 04:59 [place] 00 :00 [facility] pantoprazol 2018- 2020- No 40mg Take 40 mg [facility] e 40 mg EC 03-0612 by mouth. ity of tablet 00:00: 04:59 [place] 00 :00 [facility] pantoprazol 2018- 2020- No 40mg Take 40 mg [facility] e 40 mg EC 03-0612 by mouth. ity of tablet 00:00: 04:59 [place] 00 :00 [facility] pantoprazol 2018- 2020- No 40mg Take 40 mg [facility] e 40 mg EC 03-06 0812 by mouth. ity of tablet 00:00: 04:59 [place] 00 :00 [facility] pantoprazol 2018- 2020- No 40mg Take 40 mg [facility] e 40 mg EC 03-06 by mouth. ity of tablet 00:00: 04:59 [place] 00 :00 Medical Branch pantoprazol 2019-0 2020- No 40mg Take 40 mg [facility] e 40 mg EC 03-06 by mouth. ity of tablet 00:00: 04:59 [place] 00 :00 Medical Branch pantoprazol 2019-0 2020- No 40mg Take 40 mg [facility] e 40 mg EC 03-06 by mouth. ity of tablet 00:00: 04:59 [place] 00 :00 Medical [facility] pantoprazol 2019-0 2020- No 40mg Take 40 mg [facility] e 40 mg EC 03-06 by mouth. ity of tablet 00:00: 04:59 [place] 00 :00 Medical Branch pantoprazol 2019-0 2020- No 40mg Take 40 mg [facility] e 40 mg EC 03-06 by mouth. ity of tablet 00:00: 04:59 [place] 00 :00 Medical Branch pantoprazol 2019-0 2020- No 40mg Take 40 mg [facility] e 40 mg EC 03-06 by mouth. ity of tablet 00:00: 04:59 [place] 00 :00 Medical Branch pantoprazol 2019-0 2020- No 40mg Take 40 mg [facility] e 40 mg EC 03-06 by mouth. ity of tablet 00:00: 04:59 [place] 00 :00 [facility] pantoprazol 2019-0 2020- No 40mg Take 40 mg [facility] e 40 mg EC 03-06 by mouth. ity of tablet 00:00: 04:59 [place] 00 :00 Medical Branch pantoprazol 2019-0 2020- No 40mg Take 40 mg [facility] e 40 mg EC 03-06 by mouth. ity of tablet 00:00: 04:59 [place] 00 :00 Medical Branch pantoprazol 2019-0 2020- No 40mg Take 40 mg [facility] e 40 mg EC 03-06 by mouth. ity of tablet 00:00: 04:59 [place] 00 :00 Medical Branch pantoprazol 2019-0 2020- No 40mg Take 40 mg [facility] e 40 mg EC 03-06 by mouth. ity of tablet 00:00: 04:59 [place] 00 :00 Medical Branch pantoprazol 2019-0 2020- No 40mg Take 40 mg [facility] e 40 mg EC 03-06 by mouth. ity of tablet 00:00: 04:59 [place] 00 :00 [facility] [place] pantoprazol 2019-0 2020- No 40mg Take 40 mg [facility] e 40 mg EC 03-06 by mouth. ity of tablet 00:00: 04:59 [place] 00 :00 Medical Branch pantoprazol 2019-0 2020- No 40mg Take 40 mg [facility] e 40 mg EC 03-06 by mouth. ity of tablet 00:00: 04:59 [place] 00 :00 Medical [place] pantoprazol 2019-0 2020- No 40mg Take 40 mg [facility] e 40 mg EC 03-06 by mouth. ity of tablet 00:00: 04:59 [place] 00 :00 Medical [place] pantoprazol 2019-0 2020- No 40mg Take 40 mg [facility] e 40 mg EC 03-06 by mouth. ity of tablet 00:00: 04:59 [place] 00 :00 [facility] pantoprazol 2019-0 2020- No 40mg Take 40 mg [facility] e 40 mg EC 03-06 by mouth. ity of tablet 00:00: 04:59 [place] 00 :00 [facility] dextroamphe 2019-0 Yes Take by Uni [...] (ADDERALL 21 prescribed Medi feliciano ORAL) by [facility] but the patient has been counseled [...] (ADDERALL 21 prescribed Medi feliciano ORAL) by [facility] but the patient has been counseled [...] (ADDERALL 21 prescribed Medi feliciano ORAL) by [facility] but the patient has been counseled not to take it due the cardiovasc ular risks dextroamphe 2019-0 Yes Take by Uni vers tamine/amph 3-11 mouth. ity of etamine 00:05: Being [place] (ADDERALL 21 prescribed Medi feliciano ORAL) by [facility] but the patient has been counseled not to take it due the cardiovasc ular risks dextroamphe 2019-0 Yes Take by Uni vers tamine/amph 3-11 mouth. ity of etamine 00:05: Being [place] (ADDERALL 21 prescribed Medi feliciano ORAL) by [facility] but the patient has been counseled [...] (ADDERALL 21 prescribed Medi feliciano ORAL) by [facility] but the patient has been counseled [...] (ADDERALL 21 prescribed Medi feliciano ORAL) by [facility] but the patient has been counseled [...] (ADDERALL 21 prescribed Medi feliciano ORAL) by [facility] but the patient has been counseled not to take it due the cardiovasc ular risks dextroamphe 2019-0 Yes Take by Uni vers tamine/amph 3-11 mouth. ity of etamine 00:05: Being [place] (ADDERALL 21 prescribed Medi feliciano ORAL) by [facility] but the patient has been counseled not to take it due the cardiovasc ular risks dextroamphe 2019-0 Yes Take by Uni vers tamine/amph 3-11 mouth. ity of etamine 00:05: Being [place] (ADDERALL 21 prescribed Medi feliciano ORAL) by [facility] but the patient has been counseled not to take it due the cardiovasc ular risks dextroamphe 2019-0 Yes Take by Uni vers tamine/amph 3-11 mouth. ity of etamine 00:05: Being [place] (ADDERALL 21 prescribed Medi feliciano ORAL) by [facility] but the patient has been counseled not to take it due the cardiovasc ular risks dextroamphe 2019-0 Yes Take by Uni vers tamine/amph 3-11 mouth. ity of etamine 00:05: Being [place] (ADDERALL 21 prescribed Medi feliciano ORAL) by [facility] but the patient has been counseled [...] (ADDERALL 21 prescribed Medi feliciano ORAL) by [facility] but the patient has been counseled [...] (ADDERALL 21 prescribed Medi feliciano ORAL) by [facility] but the patient has been counseled not to take it due the cardiovasc ular risks dextroamphe 2019-0 Yes Take by Uni vers tamine/amph 3-11 mouth. ity of etamine 00:05: Being [place] (ADDERALL 21 prescribed Medi feliciano ORAL) by [facility] but the patient has been counseled not to take it due the cardiovasc ular risks dextroamphe 2019-0 Yes Take by Uni vers tamine/amph 3-11 mouth. ity of etamine 00:05: Being [place] (ADDERALL 21 prescribed Medi feliciano ORAL) by [facility] but the patient has been counseled not to take it due the cardiovasc ular risks carvedilol 2019-0 Yes 3.125mg Take 3.125 [facility] 3.125 mg 3-07 mg by ity of tablet 20:27: mouth 2 [place] 22 (two) Medical times Branch daily with meals. carvedilol 2019-0 Yes 3.125mg Take 3.125 [facility] 3.125 mg 3-07 mg by ity of tablet 20:27: mouth 2 [place] 22 (two) Medical times Branch daily with meals. carvedilol 2019-0 Yes 3.125mg Take 3.125 [facility] 3.125 mg 3-07 mg by ity of tablet 20:27: mouth 2 [place] 22 (two) Medical times Branch daily with meals. carvedilol 2019-0 Yes 3.125mg Take 3.125 [facility] 3.125 mg 3-07 mg by ity of tablet 20:27: mouth 2 [place] 22 (two) Medical times Branch daily with meals. carvedilol 2019-0 Yes 3.125mg Take 3.125 [facility] 3.125 mg 3-07 mg by ity of tablet 20:27: mouth 2 [place] [address] (two) Medical times Branch daily with meals. carvedilol 2018-0 Yes 3.125mg Take 3.125 [facility] 3.125 mg 3-07 mg by ity of tablet 20:27: mouth 2 [place] [address] (two) Medical times Branch daily with meals. carvedilol 2019-0 Yes 3.125mg Take 3.125 [facility] 3.125 mg 3-07 mg by ity of tablet 20:27: mouth 2 [place] 22 (two) Medical times Branch daily with meals. carvedilol 2019-0 Yes 3.125mg Take 3.125 [facility] 3.125 mg 3-07 mg by ity of tablet 20:27: mouth 2 [place] 22 (two) Medical times Branch daily with meals. carvedilol 2019-0 Yes 3.125mg Take 3.125 [facility] 3.125 mg 3-07 mg by ity of tablet 20:27: mouth 2 [place] 22 (two) Medical times Branch daily with meals. carvedilol 2019-0 Yes 3.125mg Take 3.125 [facility] 3.125 mg 3-07 mg by ity of tablet 20:27: mouth 2 [place] 22 (two) Medical times Branch daily with meals. carvedilol 2019-0 Yes 3.125mg Take 3.125 [facility] 3.125 mg 3-07 mg by ity of tablet 20:27: mouth 2 [place] 22 (two) Medical times Branch daily with meals. carvedilol 2019-0 Yes 3.125mg Take 3.125 [facility] 3.125 mg 3-07 mg by ity of tablet 20:27: mouth 2 [place] 22 (two) Medical times Branch daily with meals. carvedilol 2019-0 Yes 3.125mg Take 3.125 [facility] 3.125 mg 3-07 mg by ity of tablet 20:27: mouth 2 [place] 22 (two) Medical times Branch daily with meals. carvedilol 2019-0 Yes 3.125mg Take 3.125 [facility] 3.125 mg 3-07 mg by ity of tablet 20:27: mouth 2 [place] [address] (two) Medical times Branch daily with meals. carvedilol 2019-0 Yes 3.125mg Take 3.125 [facility] 3.125 mg 3-07 mg by ity of tablet 20:27: mouth 2 [place] [address] (two) Medical times Branch daily with meals. carvedilol 2019-0 Yes 3.125mg Take 3.125 [facility] 3.125 mg 3-07 mg by ity of tablet 20:27: mouth 2 [place] [address] (two) Medical times Branch daily with meals. carvedilol 2019-0 Yes 3.125mg Take 3.125 [facility] 3.125 mg 3-07 mg by ity of tablet 20:27: mouth 2 [place] [address] (two) Medical times Branch daily with meals. carvedilol 2019-0 Yes 3.125mg Take 3.125 [facility] 3.125 mg 3-07 mg by ity of tablet 20:27: mouth 2 [place] [address] (two) Medical times Branch daily with meals. carvedilol 2019-0 Yes 3.125mg Take 3.125 [facility] 3.125 mg 3-07 mg by ity of tablet 20:27: mouth 2 [place] [address] (two) Medical times Branch daily with meals. carvedilol 2019-0 Yes 3.125mg Take 3.125 [facility] 3.125 mg 3-07 mg by ity of tablet 20:27: mouth 2 [place] 22 (two) Medical times Branch daily with meals. carvedilol 2019-0 Yes 3.125mg Take 3.125 [facility] 3.125 mg 3-07 mg by ity of tablet 20:27: mouth 2 [place] [address] (two) Medical times Branch daily with meals. carvedilol 2019-0 Yes 3.125mg Take 3.125 [facility] 3.125 mg 3-07 mg by ity of tablet 20:27: mouth 2 [place] (two) Medical times Branch daily with meals. carvedilol 2019-0 Yes 3.125mg Take 3.125 [facility] 3.125 mg 3-07 mg by ity of tablet 20:27: mouth 2 [place] (two) Medical times Branch daily with meals. carvedilol 2019-0 Yes 3.125mg Take 3.125 [facility] 3.125 mg 3-07 mg by ity of tablet 20:27: mouth 2 [place] (two) Medical times Branch daily with meals. carvedilol 2019-0 Yes 3.125mg Take 3.125 [facility] 3.125 mg 3-07 mg by ity of tablet 20:27: mouth 2 [place] (two) Medical times Branch daily with meals. carvedilol 2019-0 Yes 3.125mg Take 3.125 [facility] 3.125 mg 3-07 mg by ity of tablet 20:27: mouth 2 [place] [address] (two) Medical times Branch daily with meals. carvedilol 2019-0 Yes 3.125mg Take 3.125 [facility] 3.125 mg 3-07 mg by ity of tablet 20:27: mouth 2 [place] (two) Medical times Branch daily with meals. Venlafaxine 2019-0 Yes [id number] 75mg Take 1 [facility] 75 mg 3-07 tablet by ity of tablet 00:00: mouth [place] (two) Medical times Branch daily. Additional refills per psychiatry Venlafaxine 2019-0 Yes [id number] 75mg Take 1 [facility] 75 mg 3-07 tablet by ity of tablet 00:00: mouth [place] (two) Medical times Branch daily. Additional refills per psychiatry Venlafaxine 2019-0 Yes [id number] 75mg Take 1 [facility] 75 mg 3-07 tablet by ity of tablet 00:00: mouth [place] (two) Medical times Branch daily. Additional refills per psychiatry Venlafaxine 2019-0 Yes [id number] 75mg Take 1 [facility] 75 mg 3-07 tablet by ity of tablet 00:00: mouth 2 [place] (two) Medical times Branch daily. Additional refills per psychiatry Venlafaxine 2019-0 Yes [id number] 75mg Take 1 [facility] 75 mg 3-07 tablet by ity of tablet 00:00: mouth 2 [place] (two) Medical times Branch daily. Additional refills per psychiatry Venlafaxine 2019-0 Yes [id number] 75mg Take 1 [facility] 75 mg 3-07 tablet by ity of tablet 00:00: mouth (two) Medical times Branch daily. Additional refills per psychiatry Venlafaxine 2019-0 Yes [id number] 75mg Take 1 [facility] 75 mg 3-07 tablet by ity of tablet 00:00: mouth (two) Medical times Branch daily. Additional refills per psychiatry Venlafaxine 2019-0 Yes [id number] 75mg Take 1 [facility] 75 mg 3-07 tablet by ity of tablet 00:00: mouth (two) Medical times Branch daily. Additional refills per psychiatry Venlafaxine 2019-0 Yes [id number] 75mg Take 1 [facility] 75 mg 3-07 tablet by ity of tablet 00:00: mouth (two) Medical times Branch daily. Additional refills per psychiatry Venlafaxine 2018-0 Yes [id number] 75mg Take 1 [facility] 75 mg 3-07 tablet by ity of tablet 00:00: mouth (two) Medical times Branch daily. Additional refills per psychiatry Venlafaxine 2018-0 Yes [id number] 75mg Take 1 [facility] 75 mg 3-07 tablet by ity of tablet 00:00: mouth () Medical times Branch daily. Additional refills per psychiatry Venlafaxine 2019-0 Yes [id number] 75mg Take 1 [facility] 75 mg 3-07 tablet by ity of tablet 00:00: mouth (two) Medical times Branch daily. Additional refills per psychiatry Venlafaxine 2019-0 Yes [id number] 75mg Take 1 [facility] 75 mg 3-07 tablet by ity of tablet 00:00: mouth (two) Medical times Branch daily. Additional refills per psychiatry Venlafaxine 2019-0 Yes [id number] 75mg Take 1 [facility] 75 mg 3-07 tablet by ity of tablet 00:00: mouth (two) Medical times Branch daily. Additional refills per psychiatry Venlafaxine 2019-0 Yes [id number] 75mg Take 1 [facility] 75 mg 3-07 tablet by ity of tablet 00:00: mouth (two) Medical times Branch daily. Additional refills per psychiatry Venlafaxine 2019-0 Yes [id number] 75mg Take 1 [facility] 75 mg 3-07 tablet by ity of tablet 00:00: mouth (two) Medical times Branch daily. Additional refills per psychiatry Venlafaxine 2019-0 Yes [id number] 75mg Take 1 [facility] 75 mg 3-07 tablet by ity of tablet 00:00: mouth 2 (two) Medical times Branch daily. Additional refills per psychiatry Venlafaxine 2019-0 Yes [id number] 75mg Take 1 [facility] 75 mg 3-07 tablet by ity of tablet 00:00: mouth (two) Medical times Branch daily. Additional refills per psychiatry Venlafaxine 2018-0 Yes [id number] 75mg Take 1 [facility] 75 mg 3-07 tablet by ity of tablet 00:00: mouth (two) Medical times Branch daily. Additional refills per psychiatry Venlafaxine 2018-0 Yes [id number] 75mg Take 1 [facility] 75 mg 3-07 tablet by ity of tablet 00:00: mouth (two) Medical times Branch daily. Additional refills per psychiatry Venlafaxine 2018-0 Yes [id number] 75mg Take 1 [facility] 75 mg 3-07 tablet by ity of tablet 00:00: mouth (two) Medical times Branch daily. Additional refills per psychiatry Venlafaxine 2018-0 Yes [id number] 75mg Take 1 [facility] 75 mg 3-07 tablet by ity of tablet 00:00: mouth (two) Medical times Branch daily. Additional refills per psychiatry Venlafaxine 2018-0 Yes [id number] 75mg Take 1 [facility] 75 mg 3-07 tablet by ity of tablet 00:00: mouth (two) Medical times Branch daily. Additional refills per psychiatry Venlafaxine 2019-0 Yes [id number] 75mg Take 1 [facility] 75 mg 3-07 tablet by ity of tablet 00:00: mouth (two) Medical times Branch daily. Additional refills per psychiatry Venlafaxine 2019-0 Yes [id number] 75mg Take 1 [facility] 75 mg 3-07 tablet by ity of tablet 00:00: mouth 2 (two) Medical times Branch daily. Additional refills per psychiatry Venlafaxine 2019-0 Yes [id number] 75mg Take 1 [facility] 75 mg 3-07 tablet by ity of tablet 00:00: mouth (two) Medical times Branch daily. Additional refills per psychiatry Venlafaxine 2019-0 Yes [id number] 75mg Take 1 [facility] 75 mg 3-07 tablet by ity of tablet 00:00: mouth (two) Medical times Branch daily. Additional refills per psychiatry Venlafaxine 2019-0 Yes [id number] 75mg Take 1 [facility] 75 mg 3-07 tablet by ity of tablet 00:00: mouth (two) Medical times Branch daily. Additional refills per psychiatry Venlafaxine 2019-0 Yes [id number] 75mg Take 1 [facility] 75 mg 3-07 tablet by ity of tablet 00:00: mouth (two) Medical times Branch daily. Additional refills per psychiatry Venlafaxine 2019-0 Yes [id number] 75mg Take 1 [facility] 75 mg 3-07 tablet by ity of tablet 00:00: mouth (two) Medical times Branch daily. Additional refills per psychiatry Venlafaxine 2019-0 Yes [id number] 75mg Take 1 [facility] 75 mg 3-07 tablet by ity of tablet 00:00: mouth (two) Medical times Branch daily. Additional refills per psychiatry Venlafaxine 2019-0 Yes [id number] 75mg Take 1 [facility] 75 mg 3-07 tablet by ity of tablet 00:00: mouth (two) Medical times Branch daily. Additional refills per psychiatry Venlafaxine 2019-0 Yes [id number] 75mg Take 1 [facility] 75 mg 3-07 tablet by ity of tablet 00:00: mouth (two) Medical times Branch daily. Additional refills per psychiatry Venlafaxine 2019-0 Yes [id number] 75mg Take 1 [facility] 75 mg 3-07 tablet by ity of tablet 00:00: mouth (two) Medical times Branch daily. Additional refills per psychiatry Venlafaxine 2019-0 Yes [id number] 75mg Take 1 [facility] 75 mg 3-07 tablet by ity of tablet 00:00: mouth (two) Medical times Branch daily. Additional refills per psychiatry Venlafaxine 2019-0 Yes [id number] 75mg Take 1 [facility] 75 mg 3-07 tablet by ity of tablet 00:00: mouth (two) Medical times Branch daily. Additional refills per psychiatry Venlafaxine 2019-0 Yes [id number] 75mg Take 1 [facility] 75 mg 3-07 tablet by ity of tablet 00:00: mouth (two) Medical times Branch daily. Additional refills per psychiatry Venlafaxine 2019-0 Yes [id number] 75mg Take 1 [facility] 75 mg 3-07 tablet by ity of tablet 00:00: mouth 2 (two) Medical times Branch daily. Additional refills per psychiatry Venlafaxine 2019-0 Yes [id number] 75mg Take 1 [facility] 75 mg 3-07 tablet by ity of tablet 00:00: mouth (two) Medical times Branch daily. Additional refills per psychiatry Venlafaxine 2019-0 Yes [id number] 75mg Take 1 [facility] 75 mg 3-07 tablet by ity of tablet 00:00: mouth (two) Medical times Branch daily. Additional refills per psychiatry Venlafaxine 2018-0 Yes [id number] 75mg Take 1 [facility] 75 mg 3-07 tablet by ity of tablet 00:00: mouth (two) Medical times Branch daily. Additional refills per psychiatry Venlafaxine 2018-0 Yes [id number] 75mg Take 1 [facility] 75 mg 3-07 tablet by ity of tablet 00:00: mouth (two) Medical times Branch daily. Additional refills per psychiatry Venlafaxine 2018-0 Yes [id number] 75mg Take 1 [facility] 75 mg 3-07 tablet by ity of tablet 00:00: mouth (two) Medical times Branch daily. Additional refills per psychiatry Venlafaxine 2018-0 Yes [id number] 75mg Take 1 [facility] 75 mg 3-07 tablet by ity of tablet 00:00: mouth (two) Medical times Branch daily. Additional refills per psychiatry Venlafaxine 2019-0 Yes [id number] 75mg Take 1 [facility] 75 mg 3-07 tablet by ity of tablet 00:00: mouth (two) Medical times Branch daily. Additional refills per psychiatry Venlafaxine 2019-0 Yes [id number] 75mg Take 1 Univers 75 mg 3-07 tablet by ity of tablet 00:00: mouth 2 (two) Medical times Branch daily. Additional refills per psychiatry Venlafaxine 2019-0 Yes [id number] 75mg Take 1 [facility] 75 mg 3-07 tablet by ity of tablet 00:00: mouth 2 (two) Medical times Branch daily. Additional refills per psychiatry Venlafaxine 2019-0 Yes [id number] 75mg Take 1 [facility] 75 mg 3-07 tablet by ity of tablet 00:00: mouth (two) Medical times Branch daily. Additional refills per psychiatry Venlafaxine 2019-0 Yes [id number] 75mg Take 1 [facility] 75 mg 3-07 tablet by ity of tablet 00:00: mouth (two) Medical times Branch daily. Additional refills per psychiatry Venlafaxine 2018-0 Yes [id number] 75mg Take 1 [facility] 75 mg 3-07 tablet by ity of tablet 00:00: mouth (two) Medical times Branch daily. Additional refills per psychiatry Venlafaxine 2018-0 Yes [id number] 75mg Take 1 [facility] 75 mg 3-07 tablet by ity of tablet 00:00: mouth (two) Medical times Branch daily. Additional refills per psychiatry Venlafaxine 2018-0 Yes [id number] 75mg Take 1 [facility] 75 mg 3-07 tablet by ity of tablet 00:00: mouth (two) Medical times Branch daily. Additional refills per psychiatry Venlafaxine 2018-0 Yes [id number] 75mg Take 1 [facility] 75 mg 3-07 tablet by ity of tablet 00:00: mouth (two) Medical times Branch daily. Additional refills per psychiatry Venlafaxine 2018-0 Yes [id number] 75mg Take 1 [facility] 75 mg 3-07 tablet by ity of tablet 00:00: mouth (two) Medical times Branch daily. Additional refills per psychiatry Venlafaxine 2018-0 Yes [id number] 75mg Take 1 [facility] 75 mg 3-07 tablet by ity of tablet 00:00: mouth (two) Medical times Branch daily. Additional refills per psychiatry Venlafaxine 2019-0 Yes [id number] 75mg Take 1 [facility] 75 mg 3-07 tablet by ity of tablet 00:00: mouth 2 (two) Medical times Branch daily. Additional refills per psychiatry Venlafaxine 2018-0 Yes [id number] 75mg Take 1 [facility] 75 mg 3-07 tablet by ity of tablet 00:00: mouth 2 [place] 00 (two) Medical times Branch daily. Additional refills per psychiatry Venlafaxine Yes [id number] 75mg Take 1 [facility] 75 mg 3-07 tablet by ity of tablet 00:00: mouth 2 [place] (two) Medical times Branch daily. Additional refills per psychiatry Venlafaxine Yes [id number] 75mg Take 1 [facility] 75 mg 3-07 tablet by ity of tablet 00:00: mouth 2 [place] 00 (two) Medical times Branch daily. Additional refills per psychiatry Venlafaxine Yes [id number] 75mg Take 1 [facility] 75 mg 3-07 tablet by ity of tablet 00:00: mouth 2 [place] (two) Medical times Branch daily. Additional refills [...] for Wheezing or Shortness of Breath. albuterol [id number] Yes 2{puff} Inhale 2 U nivers (VENTOLIN) [...] Puffs ity of 90 19:40: every 6 [place] mcg/actuati 58 (six) Medical on inhaler hours as Branc h needed for Wheezing or Shortness of Breath. albuterol 2017-0 Yes 2{puff} Inhale 2 U nivers (VENTOLIN) 7-20 Puffs ity of 90 19:40: every 6 [place] mcg/actuati 58 (six) Medical on inhaler hours [...] [place] Medical daily. [place] predniSONE 2016-0 Yes 10mg Take 10 mg U nivers (DELTASONE) 3-22 by mouth ity of 10 mg 00:00: daily. [place] tablet 00 [facility] predniSONE 2016-0 Yes 10mg Take 10 mg U nivers (DELTASONE) 3-22 by mouth ity of 10 mg 00:00: daily. [place] tablet 00 [facility] predniSONE 2016-0 Yes 10mg Take 10 mg U nivers (DELTASONE) 3-22 by mouth ity of 10 mg 00:00: daily. [place] tablet 00 [facility] predniSONE 2016-0 Yes 10mg Take 10 mg U nivers (DELTASONE) 3-22 by mouth ity of 10 mg 00:00: daily. [place] tablet 00 [facility] predniSONE 2016-0 Yes 10mg Take 10 mg U nivers (DELTASONE) 3-22 by mouth ity of 10 mg 00:00: daily. [place] tablet 00 [facility] predniSONE 2016-0 Yes 10mg Take 10 mg U nivers (DELTASONE) 3-22 by mouth ity of 10 mg 00:00: daily. [place] tablet 00 [facility] predniSONE 2016-0 Yes 10mg Take 10 mg U nivers (DELTASONE) 3-22 by mouth ity of 10 mg 00:00: daily. [place] tablet 00 [facility] predniSONE 2016-0 Yes 10mg Take 10 mg U nivers (DELTASONE) 3-22 by mouth ity of 10 mg 00:00: daily. [place] tablet 00 [facility] predniSONE 2016-0 Yes 10mg Take 10 mg U nivers (DELTASONE) 3-22 by mouth ity of 10 mg 00:00: daily. [place] tablet 00 [facility] predniSONE 2016-0 Yes 10mg Take 10 mg U nivers (DELTASONE) 3-22 by mouth ity of 10 mg 00:00: daily. [place] tablet 00 [facility] predniSONE Yes 10mg Take 10 mg U nivers (DELTASONE) 3-22 by mouth ity of 10 mg 00:00: daily. [place] tablet 00 [facility] predniSONE Yes 10mg Take 10 mg U nivers (DELTASONE) 3-22 by mouth ity of 10 mg 00:00: daily. [place] tablet 00 [facility] predniSONE Yes 10mg Take 10 mg U nivers (DELTASONE) 3-22 by mouth ity of 10 mg 00:00: daily. [place] tablet 00 [facility] predniSONE Yes 10mg Take 10 mg U nivers (DELTASONE) 3-22 by mouth ity of 10 mg 00:00: daily. [place] tablet 00 [facility] predniSONE Yes 10mg Take 10 mg U nivers (DELTASONE) 3-22 by mouth ity of 10 mg 00:00: daily. [place] tablet 00 [facility] omeprazole Yes 40mg Take 40 mg U nivers (PRILOSEC) 3-08 by mouth ity o f 40 mg 00:00: daily. [place] capsule 00 [facility] omeprazole 2019- No 40mg Take 40 mg Univers (PRILOSEC) 3-08 08-22 by mouth ity of 40 mg 00:00: 00:00 daily. [place] capsule 00 :00 [facility] omeprazole 2019- No 40mg Take 40 mg Univers (PRILOSEC) 3-08 08-22 by mouth ity of 40 mg 00:00: 00:00 daily. [place] capsule 00 :00 [facility] Yes 250ug Take 250 Univ ers 500 mcg 3-07 mcg by ity of tablet 00:00: mouth [place] 00 daily. [facility] Yes 250ug Take 250 Univ ers 500 mcg 3-07 mcg by ity of tablet 00:00: mouth [place] 00 daily. [facility] Yes 1{tbl} Take 1 Unive rs 500 mcg 3-07 tablet by ity of tablet 00:00: mouth [place] 00 daily. [facility] Yes 250ug Take 250 Univ ers 500 mcg 3-07 mcg by ity of tablet 00:00: mouth [place] 00 daily. [facility] 0 Yes 250ug Take 250 Univ ers 500 mcg 3-07 mcg by ity of tablet 00:00: mouth [place] 00 daily. [facility] 0 Yes 250ug Take 250 Univ ers 500 mcg 3-07 mcg by ity of tablet 00:00: mouth [place] 00 daily. [facility] 0 Yes 1{tbl} Take 1 Unive rs 500 mcg 3-07 tablet by ity of tablet 00:00: mouth [place] 00 daily. [facility] 0 Yes 250ug Take 250 Univ ers 500 mcg 3-07 mcg by ity of tablet 00:00: mouth [place] 00 daily. [facility] 0 Yes 250ug Take 250 Univ ers 500 mcg 3-07 mcg by ity of tablet 00:00: mouth [place] 00 daily. [facility] 0 Yes 250ug Take 250 Univ ers 500 mcg 3-07 mcg by ity of tablet 00:00: mouth [place] 00 daily. [facility] Yes 250ug Take 250 Univ ers 500 mcg 3-07 mcg by ity of tablet 00:00: mouth [place] 00 daily. [facility] 0 Yes 1{tbl} Take 1 Unive rs 500 mcg 3-07 tablet by ity of tablet 00:00: mouth [place] 00 daily. [facility] 0 Yes 1{tbl} Take 1 Unive rs 500 mcg 3-07 tablet by ity of tablet 00:00: mouth [place] 00 daily. [facility] 0 Yes 1{tbl} Take 1 Unive rs 500 mcg 3-07 tablet by ity of tablet 00:00: mouth [place] 00 daily. [facility] 0 Yes 1{tbl} Take 1 Unive rs 500 mcg 3-07 tablet by ity of tablet 00:00: mouth [place] 00 daily. [facility] 2015-0 Yes 1{tbl} Take 1 Unive rs 500 mcg 3-07 tablet by ity of tablet 00:00: mouth [place] 00 daily. [facility] 0 Yes 1{tbl} Take 1 Unive rs 500 mcg 3-07 tablet by ity of tablet 00:00: mouth [place] 00 daily. [facility] 0 Yes 1{tbl} Take 1 Unive rs 500 mcg 3-07 tablet by ity of tablet 00:00: mouth [place] 00 daily. [facility] 0 Yes 1{tbl} Take 1 Unive rs 500 mcg 3-07 tablet by ity of tablet 00:00: mouth [place] 00 daily. [facility] 0 Yes 1{tbl} Take 1 Unive rs 500 mcg 3-07 tablet by ity of tablet 00:00: mouth [place] 00 daily. [facility] 0 Yes 1{tbl} Take 1 Unive rs 500 mcg 3-07 tablet by ity of tablet 00:00: mouth [place] 00 daily. [facility] Yes 1{tbl} Take 1 Unive rs 500 mcg 3-07 tablet by ity of tablet 00:00: mouth [place] 00 daily. [facility] 0 Yes 1{tbl} Take 1 Unive rs 500 mcg 3-07 tablet by ity of tablet 00:00: mouth [place] 00 daily. [facility] Yes 1{tbl} Take 1 Unive rs 500 mcg 3-07 tablet by ity of tablet 00:00: mouth [place] 00 daily. [facility] Yes 1{tbl} Take 1 Unive rs 500 mcg 3-07 tablet by ity of tablet 00:00: mouth [place] 00 daily. [facility] 0 Yes 1{tbl} Take 1 Unive rs 500 mcg 3-07 tablet by ity of tablet 00:00: mouth [place] 00 daily. [facility] 0 Yes 1{tbl} Take 1 Unive rs 500 mcg 3-07 tablet by ity of tablet 00:00: mouth [place] 00 daily. [facility] 0 Yes 1{tbl} Take 1 Unive rs 500 mcg 3-07 tablet by ity of tablet 00:00: mouth [place] 00 daily. [facility] 0 Yes 1{tbl} Take 1 Unive rs 500 mcg 3-07 tablet by ity of tablet 00:00: mouth [place] 00 daily. [facility] 0 Yes 1{tbl} Take 1 Unive rs 500 mcg 3-07 tablet by ity of tablet 00:00: mouth [place] 00 daily. [facility] 0 Yes 1{tbl} Take 1 Unive rs 500 mcg 3-07 tablet by ity of tablet 00:00: mouth [place] 00 daily. [facility] 2016-0 Yes 1{tbl} Take 1 Unive rs 500 mcg 3-07 tablet by ity of tablet 00:00: mouth [place] 00 daily. [facility] 2016-0 Yes 250ug Take 250 Univ ers 500 mcg 3-07 mcg by ity of tablet 00:00: mouth [place] 00 daily. [facility] 2015-0 Yes 250ug Take 250 Univ ers 500 mcg 3-07 mcg by ity of tablet 00:00: mouth [place] 00 daily. [facility] 2015-0 Yes 250ug Take 250 Univ ers 500 mcg 3-07 mcg by ity of tablet 00:00: mouth [place] 00 daily. [facility] 2015-0 Yes 250ug Take 250 Univ ers 500 mcg 3-07 mcg by ity of tablet 00:00: mouth [place] 00 daily. [facility] 2015-0 Yes 250ug Take 250 Univ ers 500 mcg 3-07 mcg by ity of tablet 00:00: mouth [place] 00 daily. [facility] 2015-0 Yes 250ug Take 250 Univ ers 500 mcg 3-07 mcg by ity of tablet 00:00: mouth [place] 00 daily. [facility] 2015-0 Yes 1{tbl} Take 1 Unive rs 500 mcg 3-07 tablet by ity of tablet 00:00: mouth [place] 00 daily. [facility] 2015-0 Yes 250ug Take 250 Univ ers 500 mcg 3-07 mcg by ity of tablet 00:00: mouth [place] 00 daily. [facility] 2015-0 Yes 250ug Take 250 Univ ers 500 mcg 3-07 mcg by ity of tablet 00:00: mouth [place] 00 daily. [facility] 2015-0 Yes 250ug Take 250 Univ ers 500 mcg 3-07 mcg by ity of tablet 00:00: mouth [place] 00 daily. [facility] 2015-0 Yes 250ug Take 250 Univ ers 500 mcg 3-07 mcg by ity of tablet 00:00: mouth [place] 00 daily. [facility] 2015-0 Yes 250ug Take 250 Univ ers 500 mcg 3-07 mcg by ity of tablet 00:00: mouth [place] 00 daily. [facility] 2016-0 Yes 250ug Take 250 Univ ers 500 mcg 3-07 mcg by ity of tablet 00:00: mouth [place] 00 daily. [facility] 2015-0 Yes 250ug Take 250 Univ ers 500 mcg 3-07 mcg by ity of tablet 00:00: mouth [place] 00 daily. [facility] 2015-0 Yes 250ug Take 250 Univ ers 500 mcg 3-07 mcg by ity of tablet 00:00: mouth [place] 00 daily. [facility] 2015-0 Yes 250ug Take 250 Univ ers 500 mcg 3-07 mcg by ity of tablet 00:00: mouth [place] 00 daily. [facility] 2015-0 Yes 1{tbl} Take 1 Unive rs 500 mcg 3-07 tablet by ity of tablet 00:00: mouth [place] 00 daily. [facility] 0 Yes 250ug Take 250 Univ ers 500 mcg 3-07 mcg by ity of tablet 00:00: mouth [place] 00 daily. [facility] 0 Yes 250ug Take 250 Univ ers 500 mcg 3-07 mcg by ity of tablet 00:00: mouth [place] 00 daily. [facility] 0 Yes 250ug Take 250 Univ ers 500 mcg 3-07 mcg by ity of tablet 00:00: mouth [place] 00 daily. [facility] 0 Yes 250ug Take 250 Univ ers 500 mcg 3-07 mcg by ity of tablet 00:00: mouth [place] 00 daily. [facility] 2015-0 Yes 1{tbl} Take 1 Unive rs 500 mcg 3-07 tablet by ity of tablet 00:00: mouth [place] 00 daily. [facility] 2015-0 Yes 250ug Take 250 Univ ers 500 mcg 3-07 mcg by ity of tablet 00:00: mouth [place] 00 daily. [facility] 2015-0 Yes 250ug Take 250 Univ ers 500 mcg 3-07 mcg by ity of tablet 00:00: mouth [place] 00 daily. [facility] 0 Yes 250ug Take 250 Univ ers 500 mcg 3-07 mcg by ity of tablet 00:00: mouth [place] 00 daily. [facility] 2015-0 Yes 1{tbl} Take 1 Unive rs 500 mcg 3-07 tablet by ity of tablet 00:00: mouth [place] 00 daily. [facility] 2016-0 Yes 250ug Take 250 Univ ers 500 mcg 3-07 mcg by ity of tablet 00:00: mouth [place] 00 daily. Medical Branch [facility] 2015-0 Yes 250ug Take 250 Univ ers 500 mcg 3-07 mcg by ity of tablet 00:00: mouth [place] 00 daily. [facility] Branch [facility] 0 Yes 1{puff} Inhale 1 Univer s ELLIPTA 2-02 Puff ity of 100-25 00:00: daily. [place] mcg/dose 00 Medical [facility] Yes 1{puff} Inhale 1 Univer s ELLIPTA 2-02 Puff ity of 100-25 00:00: daily. [place] mcg/dose 00 Medical [facility] Yes 1{puff} Inhale 1 Univer s ELLIPTA 2-02 Puff ity of 100-25 00:00: daily. [place] mcg/dose 00 [facility] Yes 1{puff} Inhale 1 Univer s ELLIPTA 2-02 Puff ity of 100-25 00:00: daily. [place] mcg/dose 00 [facility] Yes 1{puff} Inhale 1 Univer s ELLIPTA 2-02 Puff ity of 100-25 00:00: daily. [place] mcg/dose 00 [facility] Yes 1{puff} Inhale 1 Univer s ELLIPTA 2-02 Puff ity of 100-25 00:00: daily. [place] mcg/dose 00 [facility] Yes 1{puff} Inhale 1 Univer s ELLIPTA 2-02 Puff ity of 100-25 00:00: daily. [place] mcg/dose 00 Medical [facility] Yes 1{puff} Inhale 1 Univer s ELLIPTA 2-02 Puff ity of 100-25 00:00: daily. [place] mcg/dose 00 [facility] Yes 1{puff} Inhale 1 Univer s ELLIPTA 2-02 Puff ity of 100-25 00:00: daily. [place] mcg/dose 00 [facility] Yes 1{puff} Inhale 1 Univer s ELLIPTA [...] Immunizations Ordered Filled Immunization Date Status Comments [facility] e Immunization Name Name Influenza Virus 2019-04-07 Completed Universit y of Vaccine 00:00:00 [facility] Influenza Virus 2019-04-07 Completed Universit y of Vaccine 00:00:00 [facility] Influenza Virus 2019-04-07 Completed Universit y of Vaccine 00:00:00 [facility] Influenza Virus 2019-04-07 Completed Universit y of Vaccine 00:00:00 [facility] Influenza Virus 2019-04-07 Completed Universit y of Vaccine 00:00:00 [facility] Influenza Virus 2019-04-07 Completed Universit y of Vaccine 00:00:00 [facility] Influenza Virus 2019-04-07 Completed Universit y of Vaccine 00:00:00 [facility] Influenza Virus 2019-04-07 Completed Universit y of Vaccine 00:00:00 [facility] Influenza Virus 2019-04-07 Completed Universit y of Vaccine 00:00:00 [facility] Influenza Virus 2019-04-07 Completed Universit y of Vaccine 00:00:00 [facility] Influenza Virus 2019-04-07 Completed Universit y of Vaccine 00:00:00 [facility] Influenza Virus 2019-04-07 Completed Universit y of Vaccine 00:00:00 [facility] Influenza Virus 2019-04-07 Completed Universit y of Vaccine 00:00:00 [facility] Influenza Virus 2019-04-07 Completed Universit y of Vaccine 00:00:00 [facility] Influenza Virus 2019-04-07 Completed Universit y of Vaccine 00:00:00 [facility] Influenza Virus 2019-04-07 Completed Universit y of Vaccine 00:00:00 [facility] Influenza Virus 2019-04-07 Completed Universit y of Vaccine 00:00:00 [facility] Influenza Virus 2019-04-07 Completed Universit y of Vaccine 00:00:00 [facility] Influenza Virus 2019-04-07 Completed Universit y of Vaccine 00:00:00 [facility] Influenza Virus 2019-04-07 Completed Universit y of Vaccine 00:00:00 [facility] Influenza Virus 2019-04-07 Completed Universit y of Vaccine 00:00:00 [facility] Influenza Virus 2019-04-07 Completed Universit y of Vaccine 00:00:00 [facility] Influenza Virus 2019-04-07 Completed Universit y of Vaccine 00:00:00 [facility] Influenza Virus 2019-04-07 Completed Universit y of Vaccine 00:00:00 [facility] Influenza Virus 2019-04-07 Completed Universit y of Vaccine 00:00:00 [facility] Influenza Virus 2019-04-07 Completed Universit y of Vaccine 00:00:00 [facility] Influenza Virus 2019-04-07 Completed Universit y of Vaccine 00:00:00 [facility] Influenza Virus 2019-04-07 Completed Universit y of Vaccine 00:00:00 [facility] Influenza Virus 2019-04-07 Completed Universit y of Vaccine 00:00:00 [facility] Influenza Virus 2019-04-07 Completed Universit y of Vaccine 00:00:00 [facility] Influenza Virus 2019-04-07 Completed Universit y of Vaccine 00:00:00 [facility] Influenza Virus 2019-04-07 Completed Universit y of Vaccine 00:00:00 [facility] Influenza Virus 2019-04-07 Completed Universit y of Vaccine 00:00:00 [facility] Influenza Virus 2019-04-07 Completed Universit y of Vaccine 00:00:00 [facility] Influenza Virus 2019-04-07 Completed Universit y of Vaccine 00:00:00 [facility] Influenza Virus 2019-04-07 Completed Universit y of Vaccine 00:00:00 [facility] Influenza Virus 2019-04-07 Completed Universit y of Vaccine 00:00:00 [facility] Influenza Virus 2019-04-07 Completed Universit y of Vaccine 00:00:00 [facility] Influenza Virus 2019-04-07 Completed Universit y of Vaccine 00:00:00 [facility] Influenza Virus 2019-04-07 Completed Universit y of Vaccine 00:00:00 [facility] Influenza Virus 2019-04-07 Completed Universit y of Vaccine 00:00:00 [facility] Influenza Virus 2019-04-07 Completed Universit y of Vaccine 00:00:00 [facility] Influenza Virus 2019-04-07 Completed Universit y of Vaccine 00:00:00 [facility] Influenza Virus 2019-04-07 Completed Universit y of Vaccine 00:00:00 [facility] Influenza Virus 2019-04-07 Completed Universit y of Vaccine 00:00:00 [facility] Vital Signs Vital Name Observation Time Observation Value Comments Source Systolic blood 2020-11-20 16:07:00 143 mm[Hg] Univer sity of pressure [facility] Diastolic blood 2020-11-20 16:07:00 77 mm[Hg] Unive rsity of pressure [facility] Heart rate 2020-11-20 16:07:00 114 /min [facility] Body temperature 2020-11-20 16:07:00 36.39 [place]anna Univ ersity of [facility] Body height 2020-11-20 16:07:00 152.4 cm [facility] Body weight 2020-11-20 16:07:00 52.844 kg [facility] BMI 2020-11-20 16:07:00 22.75 kg/m2 [facility] Oxygen saturation in 2020-11-20 16:07:00 96 /min [facility] Arterial blood by [facility] [place] Pulse oximetry Branch Systolic blood 2020-03-29 05:00:00 165 mm[Hg] Univer sity of pressure [place] [facility] Diastolic blood 2020-03-29 05:00:00 88 mm[Hg] Unive rsity of pressure [place] [facility] Heart rate 2020-03-29 05:00:00 82 /min [facility] [place] [facility] Respiratory rate 2020-03-29 05:00:00 20 /min Univ ersity of [place] [facility] Oxygen saturation in 2020-03-29 05:00:00 96 /min University of Arterial blood by [facility] [place] Pulse oximetry Branch Body temperature 2020-03-29 01:46:00 37.56 Geovanna Univ ersity of [place] [facility] Body weight 2020-03-29 01:46:00 51.71 kg Universi ty of [place] [facility] BMI 2020-03-29 01:46:00 22.26 kg/m2 [facility] [place] [facility] Systolic blood 2020-03-29 05:00:00 165 mm[Hg] Univer sity of pressure [place] [facility] Diastolic blood 2020-03-29 05:00:00 88 mm[Hg] Unive rsity of pressure [place] [facility] Heart rate 2020-03-29 05:00:00 82 /min [facility] [place] [facility] Respiratory rate 2020-03-29 05:00:00 20 /min Univ ersity [facility] [place] [facility] Oxygen saturation in 2020-03-29 05:00:00 96 /min University of Arterial blood by [facility] [place] Pulse oximetry Branch Body temperature 2020-03-29 01:46:00 37.56 [place]anna Univ ersity of [place] [facility] Body weight 2020-03-29 01:46:00 51.71 kg [facility]i [facility] [place] [facility] BMI 2020-03-29 01:46:00 22.26 kg/m2 [facility] [place] [facility] Systolic blood 2020-02-23 00:25:00 99 mm[Hg] Univer sity of pressure [place] [facility] Diastolic blood 2020-02-23 00:25:00 50 mm[Hg] Unive rsity of pressure [place] [facility] Heart rate 2020-02-23 00:25:00 77 /min [facility]i [facility] [place] [facility] Body temperature 2020-02-23 00:25:00 36.61 [place]anna Univ ersity of [place] [facility] Respiratory rate 2020-02-23 00:25:00 18 /min Univ ersity of [place] [facility] Oxygen saturation in 2020-02-23 00:25:00 96 /min University of Arterial blood by [place] [facility] Pulse oximetry Branch Body weight 2020-02-22 08:18:00 53.479 kg [facility]i [facility] [place] [facility] BMI 2020-02-22 08:18:00 23.03 kg/m2 [facility] [place] [facility] Systolic blood 2020-02-23 00:25:00 99 mm[Hg] Univer sity of pressure [place] [facility] Diastolic blood 2020-02-23 00:25:00 50 mm[Hg] Unive rsity of pressure [place] [facility] Heart rate 2020-02-23 00:25:00 77 /min [facility]i ty [facility] [place] [facility] Body temperature 2020-02-23 00:25:00 36.61 [place] Univ ersity of [place] [facility] Respiratory rate 2020-02-23 00:25:00 18 /min Univ ersity of [place] [facility] Oxygen saturation in 2020-02-23 00:25:00 96 /min University of Arterial blood by [facility] feliciano Pulse oximetry Branch Body weight 2020-02-22 08:18:00 53.479 kg Universi ty [facility] [place] [facility] BMI 2020-02-22 08:18:00 23.03 kg/m2 [facility] [place] [facility] Systolic blood 2020-02-15 00:00:00 153 mm[Hg] Univer sity of pressure [place] [facility] Diastolic blood 2020-02-15 00:00:00 69 mm[Hg] Unive rsity of pressure [place] [facility] Heart rate 2020-02-15 00:00:00 96 /min [facility]i ty [facility] [place] [facility] Respiratory rate 2020-02-15 00:00:00 14 /min Univ ersity of [place] [facility] Oxygen saturation in 2020-02-15 00:00:00 95 /min University of Arterial blood by [place] [facility] fel[facility] Pulse oximetry Branch Body temperature 2020-02-14 20:13:00 37.39 [place]anna [facility] ers[facility] [place] [facility] Body weight 2020-02-14 20:13:00 52.164 kg [facility] [place] [facility] BMI 2020-02-14 20:13:00 22.46 kg/m2 [facility] [place] [facility] Systolic blood 2020-02-14 19:24:00 153 mm[Hg] Univer sity of pressure [place] [facility] Diastolic blood 2020-02-14 19:24:00 90 mm[Hg] Unive rsity of pressure [place] [facility] Heart rate 2020-02-14 19:24:00 120 /min [facility] [place] [facility] Body temperature 2020-02-14 19:22:00 36.83 [place]anna [facility] [place] [facility] Respiratory rate 2020-02-14 19:22:00 21 /min [facility] [place] [facility] Body height 2020-02-14 19:22:00 152.4 cm [facility] [place] [facility] Body weight 2020-02-14 19:22:00 52.164 kg [facility] [place] [facility] BMI 2020-02-14 19:22:00 22.46 kg/m2 [facility] [place] [facility] Oxygen saturation in 2020-02-14 19:22:00 95 /min University of Arterial blood by [place] [employer] feliciano Pulse oximetry Branch Systolic blood 2020-01-29 16:22:00 171 mm[Hg] Univer sity of pressure [place] [facility] Diastolic blood 2020-01-29 16:22:00 79 mm[Hg] Unive rsity of pressure [facility] [place] [facility] Heart rate 2020-01-29 16:21:00 100 /min [facility] [place] [facility] Body temperature 2020-01-29 16:21:00 36.5 Geovanna [facility] [place] [facility] Respiratory rate 2020-01-29 16:21:00 16 /min [facility] [place] [facility] Body height 2020-01-29 16:21:00 152.4 cm [facility] [place] [facility] Body weight 2020-01-29 16:21:00 53.071 kg [facility] [place] [facility] BMI 2020-01-29 16:21:00 22.85 kg/m2 [facility] [place] [facility] Oxygen saturation in 2020-01-29 16:21:00 100 /min University of Arterial blood by [place] [employer] fel[employer]o Pulse oximetry Branch Systolic blood 2020-01-03 21:00:00 166 mm[Hg] Univer sity of pressure [facility] Diastolic blood 2020-01-03 21:00:00 76 mm[Hg] Unive rsity of pressure [facility] Heart rate 2020-01-03 21:00:00 100 /min [facility] [place] [facility] Respiratory rate 2020-01-03 21:00:00 17 /min Univ ersity [facility] [place] [facility] Oxygen saturation in 2020-01-03 21:00:00 94 /min University of Arterial blood by [facility] Pulse oximetry Branch Body temperature 2020-01-03 16:45:00 36.72 Geovanna Univ [facility] [place] [facility] Body weight 2020-01-03 16:45:00 53.071 kg [facility] [place] [facility] BMI 2020-01-03 16:45:00 22.11 kg/m2 [facility] Heart rate 2019-12-08 13:35:00 111 /min [facility] Respiratory rate 2019-12-08 13:35:00 20 /min Univ ers[facility] Oxygen saturation in 2019-12-08 13:35:00 94 /min University of Arterial blood by [facility] [place] Pulse oximetry Branch Systolic blood 2019-12-08 12:42:00 169 mm[Hg] Univer sity of pressure [facility] Diastolic blood 2019-12-08 12:42:00 76 mm[Hg] Unive rsity of pressure [facility] Body temperature 2019-12-08 12:42:00 36.78 Geovanna Univ [facility] [place] [facility] Body height 2019-12-05 16:38:00 154.9 cm [facility] [place] [facility] Body weight 2019-12-05 16:38:00 54.885 kg [facility] [place] [facility] BMI 2019-12-05 16:38:00 22.86 kg/m2 [facility] [place] [facility] Systolic blood 2019-09-20 20:34:00 164 mm[Hg] Univer sity of pressure [facility] Diastolic blood 2019-09-20 20:34:00 76 mm[Hg] Unive rsity of pressure [facility] Heart rate 2019-09-20 20:34:00 80 /min [facility] Body temperature 2019-09-20 20:29:00 36.67 Geovanna Univ [facility] [place] [facility] Respiratory rate 2019-09-20 20:29:00 20 /min Univ ersity of [facility] Body height 2019-09-20 20:29:00 157.5 cm [facility] [place] [facility] Body weight 2019-09-20 20:29:00 52.345 kg [facility] [place] [facility] BMI 2019-09-20 20:29:00 21.11 kg/m2 [facility] [place] [facility] Oxygen saturation in 2019-09-20 20:29:00 98 /min University of Arterial blood by [facility] [place] Pulse oximetry Branch Systolic blood 2019-08-31 22:02:00 159 mm[Hg] Univer sity of pressure [facility] Diastolic blood 2019-08-31 22:02:00 79 mm[Hg] Unive rsity of pressure [facility] Heart rate 2019-08-31 22:02:00 101 /min Universi ty [facility] Body temperature 2019-08-31 22:02:00 36.56 Geovanna Univ ersity [facility] [place] [facility] Body height 2019-08-31 22:02:00 153.7 cm [facility] [place] [facility] Body weight 2019-08-31 22:02:00 52.617 kg [facility]i [facility] BMI 2019-08-31 22:02:00 22.28 kg/m2 [facility] Systolic blood 2019-03-29 19:16:00 157 mm[Hg] Univer sity of pressure [facility] Diastolic blood 2019-03-29 19:16:00 71 mm[Hg] Unive rsity of pressure [facility] Heart rate 2019-03-29 19:16:00 114 /min Universi ty [facility] Body temperature 2019-03-29 19:16:00 36.17 Geovanna Univ ersity of [facility] Respiratory rate 2019-03-29 19:16:00 22 /min Univ ersity of [facility] Body weight 2019-03-29 19:16:00 52.98 kg [facility] [place] [facility] [place] BMI 2019-03-29 19:16:00 18.85 kg/m2 [facility] [place] [facility] Systolic blood 2019-03-23 19:02:00 141 mm[Hg] Univer sity of pressure [facility] Diastolic blood 2019-03-23 19:02:00 69 mm[Hg] Unive rsity of pressure [facility] Heart rate 2019-03-23 19:02:00 80 /min [facility]i [facility] [place] [facility] [place] Body temperature 2019-03-23 19:02:00 36.83 Geovanna Univ ersity [facility] [place] [facility] Respiratory rate 2019-03-23 19:02:00 18 /min Univ ersity [facility] Body height 2019-03-23 19:02:00 167.6 cm [facility]i [facility] [place] [facility] Body weight 2019-03-23 19:02:00 52.527 kg Universi ty [facility] BMI 2019-03-23 19:02:00 18.69 kg/m2 Universi ty [facility] Systolic blood 2019-03-16 21:40:00 141 mm[Hg] Univer sity of pressure [facility] Diastolic blood 2019-03-16 21:40:00 70 mm[Hg] Unive rsity of pressure [facility] Heart rate 2019-03-16 21:40:00 110 /min Universi ty [facility] Body temperature 2019-03-16 20:57:00 37.22 Geovanna Univ [facility] Body height 2019-03-16 20:57:00 154.9 cm Universi [facility] Body weight 2019-03-16 20:57:00 54.432 kg Universi [facility] BMI 2019-03-16 20:57:00 22.67 kg/m2 [facility] Procedures Procedure Date / Time Performing Source Performed Clinician EXTERNAL PROVIDER RECORDS 2020-12-05 Doctor Marian herediay of 05:01:00 Unassigned, No [facility] AUTHORIZATION TO RELEASE PHI TO 2020-11-20 [facility] 05:01:00 Unassigned, No [facility] URINALYSIS 2020-03-29 Maribell Foster [place] of 03:09:00 [facility] THYROID STIMULATING HORMONE 2020-03-29 Maribell Foster [facility] ersity of 03:04:00 [facility] COMP. METABOLIC PANEL (42969) 2020-03-29 Maribell Foster Un iversity of 03:04:00 [facility] CBC WITH DIFF 2020-03-29 Maribell Foster [place] of 03:04:00 [facility] GLYCOSYLATED HEMOGLOBIN (A1C) 2020-03-29 Maribell Foster Un iversity of 03:04:00 [facility] ECHO ROUTINE W/DOPPLER COLOR 2020-02-[address] [facility] versity of 20:06:52 [facility] TROPONIN I 2020-02-22 Rebecca Cantu [place] of 12:39:00 [facility] TROPONIN I 2020-02-22 Rebecca Cantu [place] of 05:09:00 [facility] IRON PANEL 2020-02-22 Pepe [facility] of 05:09:00 [facility] GLYCOSYLATED HEMOGLOBIN (A1C) 2020-02-22 Rebecca Cantu iversity of 05:09:00 [facility] TROPONIN I 2020-02-22 Pepe [facility] of 05:08:00 [facility] BASIC METABOLIC PANEL (NA, K, CL, 2020-02-22 Pepe [facility] of CO2, GLUCOSE, BUN, CREATININE, CA) 05:08:00 [facility] LIPID PANEL (29301)(TOTAL 2020-02-22 [facility] sity of CHOLESTEROL, TRIGLYCERIDES, HDL) 05:08:00 [facility] CBC WITH DIFF 2020-02-22 Pepe [facility] of 05:08:00 [facility] VITAMIN B12, LEVEL 2020-02-22 [facility] of 05:05:00 [facility] VITAMIN D, 25-OH 2020-02-22 [facility] of 05:05:00 [facility] PROCALCITONIN 2020-02-22 [facility] of 05:05:00 [facility] FECAL LEUKOCYTES 2020-02-22 [facility] of 04:46:00 [facility] URINALYSIS 2020-02-22 Pepe [facility] of 04:34:00 [facility] LEGIONELLA URINARY ANTIGEN TST 2020-02-22 Pepe [facility] niversity of 04:34:00 [facility] PNEUMOCOCCAL ANTIGEN 2020-02-22 Pepe [facility] of 04:33:00 [facility] CLOSTRIDIUM DIFFICILE TOXIN 2020-02-22 Pepe [facility] ersity of 03:15:00 [facility] XR ABDOMEN 2 VW 2020-02-22 Pepe [facility] of 01:50:00 [facility] EKG-12 LEAD 2020-02-21 [facility] of 18:10:08 Unassigned, No [facility] EKG-12 LEAD 2020-02-21 Titi Hahn of 18:02:02 [facility] LACTIC ACID WHOLE BLOOD 2020-02-21 Titi Hahn [facility] ty of 17:01:00 [facility] PHOSPHORUS 2020-02-21 Jessie [facility] of 17:00:00 [facility] LIPASE 2020-02-21 Titi Hahn [place] of 17:00:00 [facility] MAGNESIUM 2020-02-21 Matilde Roman [place] of 17:00:00 [facility] FERRITIN SERUM 2020-02-21 Rebecca Cantu [place] of 17:00:00 [facility] TROPONIN I 2020-02-21 Titi Hahn [place] of 17:00:00 [facility] COMP. METABOLIC PANEL (15518) 2020-02-21 Titi Hahn iversity of 17:00:00 [facility] LIPID PANEL (17759)(TOTAL 2020-02-21 Rebecca Cantu [facility] sity of CHOLESTEROL, TRIGLYCERIDES, HDL) 17:00:00 [facility] XR CHEST 1 VW 2020-02-21 Titi Hahn [place] of 15:31:44 [facility] COVID-19 (ID NOW RAPID TESTING) 2020-02-21 [facility] 15:23:00 [facility] CBC WITH DIFF 2020-02-21 Singer [facility] of 15:19:00 [facility] CONSENT/REFUSAL FOR DIAGNOSIS AND 2020-02-21 [facility] 14:24:00 Unassigned, No [facility] Branch XR CHEST 1 VW 2020-02-14 Richard Rachelle [place] of 22:30:31 [facility] LACTIC ACID WHOLE BLOOD 2020-02-14 Rachelle Ramos [facility] ty of 22:23:00 [facility] URINALYSIS 2020-02-14 Richard [facility] of 21:49:00 [facility] UNILATERAL VENOUS DUPLEX LOWER 2020-02-14 Rachelle Ramos U niversity of EXTREMITY BY VASCULAR LAB 21:23:18 [facility] LIPASE 2020-02-14 Titi Hahn [place] of 20:45:00 [facility] TROPONIN I 2020-02-14 [facility] 20:45:00 [facility] THYROID STIMULATING HORMONE 2020-02-14 Richard Rachelle [facility] ersity of 20:45:00 [facility] COMP. METABOLIC PANEL (12835) 2020-02-14 Titi Hahn iversity of 20:45:00 [facility] CBC WITH DIFF 2020-02-14 Titi Hahn [place] of 20:45:00 [facility] PROTHROMBIN TIME / INR 2020-02-14 Titi Hahn y of 20:45:00 [facility] D-DIMER 2020-02-14 [facility] of 20:45:00 [facility] ACTIVATED PARTIAL THRMPLAS NAVDEEP 2020-02-14 Titi Hahn U niversity of 20:45:00 [facility] EKG-12 LEAD 2020-02-14 [facility] of 20:43:52 [facility] EKG-12 LEAD 2020-02-14 [facility] of 20:13:[address] [facility] [address] ABDOMEN PELVIS W CONTRAST 2020-01-03 Sb Canela Uni versity of 18:56:39 [facility] LIPASE 2020-01-03 Sb Canela [place] of 17:28:00 [facility] HEPATIC FUNCTION PANEL (48034) 2020-01-03 Sb Canela niversity of (ALB,T.PRO,BILI 17:28:00 [facility],BU/BC,ALT,AST,ALK PHOS) [place] BASIC METABOLIC PANEL (NA, K, CL, 2020-01-03 Merritt Canela University of CO2, GLUCOSE, BUN, CREATININE, CA) 17:28:00 [facility] CBC WITH DIFFERENTIAL 2020-01-03 Sb Canela [place] of 17:28:00 [facility] PROTHROMBIN TIME / INR 2020-01-03 Sb Canela y of 17:28:00 [facility] ACTIVATED PARTIAL THRMPLAS NAVDEEP 2020-01-03 Sb Canela niversity of 17:28:00 [facility] URINALYSIS 2020-01-03 Sb Canela of 17:28:00 [facility] LACTIC ACID WHOLE BLOOD 2020-01-03 Sb Canela ty of 17:28:00 [facility] NOTICE OF PRIVACY PRACTICES 2020-01-03 [facility] of 16:34:44 Unassigned, No [facility] CONSENT/REFUSAL FOR DIAGNOSIS AND 2020-01-03 [facility] of TREATMENT 16:34:21 Unassigned, No [facility] BASIC METABOLIC PANEL (NA, K, CL, 2019-12-06 Navid De Los Santos University of CO2, GLUCOSE, BUN, CREATININE, CA) 07:28:00 [facility] CBC WITH DIFFERENTIAL 2019-12-06 Emily De Los Santos [place] of 07:28:00 [facility] FL BARIUM SWALLOW ESOPHAGUS 2019-12-05 [facility] ersity of 20:07:00 [facility] PHOSPHORUS 2019-12-05 [facility] of 15:42:00 [facility] MAGNESIUM 2019-12-05 [facility] of 15:42:00 [facility] BASIC METABOLIC PANEL (NA, K, CL, 2019-12-05 Navid De Los [place] [address], GLUCOSE, BUN, CREATININE, CA) 15:42:00 [facility] CBC WITH DIFFERENTIAL 2019-12-05 [facility] of 15:42:00 [facility] LAPAROSCOPIC GLORY FUNDOPLICATION 2019-12-05 Jerald Sims C [place] of 11:50:00 [facility] ESOPHAGOGASTRODUODENOSCOPY 2019-12-[address] [facility] versity of 11:50:00 [facility] CONSENT/REFUSAL FOR DIAGNOSIS AND 2019-12-05 [facility] of TREATMENT 10:43:31 Unassigned, No [facility] [place] [facility] ASSIGNMENT OF BENEFITS 2019-12-05 [facility] 10:42:54 Unassigned, No [facility] HOME HEALTH - OTHER 2019-09-01 [facility] o f 06:01:00 Unassigned, No [facility] HOME HEALTH - OTHER 2019-08-24 [facility] o f 06:01:00 Unassigned, No [place] [facility] HOME HEALTH - OTHER 2019-08-11 [facility] o f 06:01:00 Unassigned, No [facility] HOME HEALTH - OTHER 2019-08-03 [facility] o f 06:01:00 Unassigned, No [facility] HOME HEALTH - OTHER 2019-07-18 [facility] o f 06:01:00 Unassigned, No [facility] HOME HEALTH 485 2019-07-12 [facility] of 06:01:00 Unassigned, No [facility] HOME HEALTH - OTHER 2019-07-03 [facility] o f 06:01:00 Unassigned, No [facility] EXTERNAL PROVIDER RECORDS 2019-04-02 [facility] sity of 05:01:00 Unassigned, No [facility] ASSIGNMENT OF BENEFITS 2019-03-16 Doctor Universit y of 20:47:08 Unassigned, No [facility] INSURANCE CORRESPONDENCE 2019-03-08 Doctor [facility] ity of 05:01:00 Unassigned, No [facility] Encounters Start End Encounter Admission Attending Care Care Encounter Source Date/Time Date/Time Type Type Clinicians Facility Department ID 2021-05-23 Emergency [facility] [id number] Univers 15:52:43 ity of [facility] 2021-05-23 Emergency [facility] [id number] Univers 09:29:50 ity of [facility] 2021-05-23 Emergency [facility] [id number] Univers 08:14:23 ity [facility] 2021-05-22 Inpatient R BETHANY [facility] AYLIN [id number] Univers 13:04:05 BOBBY ity [facility] 2022-06-09 2022-06-09 Outpatient R ADITYA [facility] [id number] Univers 15:00:00 15:00:00 CANDIDA ity [facility] 2020-12-30 2020-12-30 Outpatient [facility] [id number] Univers 15:45:00 15:45:00 WONDIFUL ity o f [facility] 2020-12-05 2020-12-05 Orders Doctor PHI 1.2.840.114 [id number] Univers 00:00:00 00:00:00 Only Unassigned, EVELYNE [id number] ity of [place] [facility] [id number] Varinder as [phone] [address] 2020-11-20 2020-11-[address] [facility] [id number] Univers 10:48:51 11:42:30 Visit Sharla Pena [id number] ity [facility] [id number] Profess[place] [phone] Ut dical [address] Building 2020-11-20 2020-11-20 Outpatient R NAYELI [facility] [id number] Univers 10:30:00 10:30:00 SHARLA ity o f [facility] 2020-11-20 2020-11-20 Orders Doctor YIP [id number] Univers 00:00:00 00:00:00 Only Unassigned, EVELYNE [id number] ity of [place] [facility] [id number] Varinder as [phone] [place] [address] Branch 2020-11-19 2020-11-19 Telephone [facility] [id number] Univers 00:00:00 00:00:00 Wondiful A Health [id number] ity of [place] [id number] Varinder as Professio [phone] Ut dical [facility] 0[address] Branch Office Building One 2020-05-30 2020-05-30 Outpatient [facility] [id number] Univers 14:00:00 14:00:00 WONDIFUL ity o f [facility] 2020-04-26 2020-04-26 Outpatient [facility] [id number] Univers 11:00:00 11:00:00 WONDIFUL ity o f [facility] 2020-03-28 2020-03-29 Emergency [facility] [id number] 20:48:00 00:17:00 Maribell R [place] [id number] [place] [id number] [place] [phone] [facility] 2020-03-28 2020-03-29 Emergency [facility] [id number] Univers 20:48:00 00:17:00 Maribell R [place] [id number] i ty of [id number] [phone] [place] [address]3234 Branch 2020-02-23 2020-02-23 Transition Abelino Conteh 1.2.840.114 [id number] 00:00:00 00:00:00 of Care Demetrio A [place] [id number] [place] [id number] [phone] [facility] 2020-02-23 2020-02-23 Transition Abelino Conteh 1.2.840.114 [id number] Univers 00:00:00 00:00:00 of Care Demetrio A [place] [id number] ity [id number] [phone] [facility] [address] [place] 2020-02-21 2020-02-22 Emergency Titi Hahn [facility] 1.2.840. 114 [id number] 09:30:54 20:01:00 Prashanth Vo [id number] [place] [id number] [place] [phone] [facility] 2020-02-21 2020-02-22 Emergency Titi Hahn [facility] 1.2.840. 114 [id number] [facility] 09:30:54 20:01:00 Prashanth Vo [id number] ity of [place] [id number] [facility] [phone] [address] 2020-02-21 2020-02-21 Telemedici Zuleyka [facility] 1.2.840.114 [id number] [facility] 07:44:24 10:48:34 ne Visit Cuba Pena [id number] ity of [place] [id number] [facility] [phone] Ut dical [address] 2020-02-21 2020-02-21 Telemedici Zuleyka [facility] 1.2.840.114 [id number] 07:44:24 10:48:34 ne Visit [place] Pena [id number] [place] [id number] Professio [phone] [address] 2020-02-21 2020-02-21 Outpatient R ZULEYKA [facility] [id number] Univers 08:00:00 08:00:00 WONBENITOFUL ity o f [facility] 2020-02-14 2020-02-14 Emergency Victor [facility] [id number] Univers 15:20:24 19:50:00 Rachelle Pena [id number] i ty of [place] [id number] [facility] [phone] [address] 2020-02-14 2020-02-14 Urgent Provider, [facility] 1.2.840.114 [id number] Univers 14:13:11 15:38:31 Care Sedgwick, Wondiful A Health [id number] 0 ity of [place] [id number] Varinder as Professio [phone] [facility] [address] [place] Office [facility] One 2020-02-14 2020-02-14 Curriculum And Instruction Specialist 2, Adc Lab [facility] 1.2.840.114 [id number] Univers 13:39:57 13:54:57 Visit Cuba Gardiner A [place] 350.1.13. 10 ity of [place] [id number] [phone] [facility] [address] [facility] 2020-02-14 2020-02-14 Outpatient R [facility] [id number] Univers 13:30:00 13:30:00 ity of [facility] 2020-02-14 2020-02-14 Case [facility] 1.2.840.114 [id number] Univers 00:00:00 00:00:00 Management Wondiful A [place] [id number] ity of [id number] [phone] [facility] [address] [place] [facility] 2020-02-08 2020-02-08 Telemedici Zuleyka [facility] 1.2.840.114 [id number] Univers 08:02:08 10:54:58 ne Visit [place] Breen [place] [id number] ity of [place] [id number] [phone] [address] 2020-02-08 2020-02-08 Outpatient R ZULEYKA [facility] [id number] Univers 10:15:00 10:15:00 WONDIFUL ity o f [facility] 2020-02-04 2020-02-04 Telephone Zo Easley 1.2.840.114 [id number] Univers 00:00:00 00:00:00 EVELYNE [id number] it y of HOSPITAL [id number] Varinder as [phone] [address] 2020-01-30 2020-01-30 Outpatient R ZULEYKA [facility] [id number] Univers 16:15:00 16:15:00 WONDIFUL ity o f [facility] 2020-01-29 2020-01-29 Urgent Pob1, Acute Care Clinic [facility] 1. 2.840.114 [id number] Univers 11:01:47 11:21:47 Care Lor Hart [id number] ity of [place] [id number] Varinder as Professio [phone] [address] Office Building One 2020-01-29 2020-01-29 Outpatient R [facility] [id number] Univers 11:20:00 11:20:00 ity of [facility] 2020-01-03 2020-01-03 Emergency X [facility] ERT [id number] Univers 11:46:19 16:35:00 SB ity [facility] 2020-01-03 2020-01-03 Emergency [facility] [id number] Univers 11:46:19 16:35:00 Sb [place] [id number] i ty of [place] [id number] [phone] [facility] [address] [place] 2020-01-03 2020-01-03 Orders Doctor PHI 1.2.840.114 [id number] Univers 00:00:00 00:00:00 Only Unassigned, EVELYNE [id number] ity of [place] [facility] [id number] Varinder as [phone] [facility] [address] [place] 2019-12-25 2019-12-25 Outpatient R ZULEYKA [facility] [id number] Univers 13:00:00 13:00:00 WONDIFUL ity o f [facility] 2019-12-22 2019-12-22 Outpatient R BETHANY [facility] [id number] Univers 13:45:00 13:45:00 BOBBY ity [facility] 2019-12-14 2019-12-14 Telephone Zuleyka [facility] 1.2.840.114 [id number] Univers 00:00:00 00:00:00 Wondiful A Health [id number] ity of [place] [id number] Varinder as Professio [phone] [facility] [address] [place] [address] Office Building One 2019-12-12 2019-12-12 Telephone Zuleyka [facility] 1.2.840.114 [id number] Univers 00:00:00 00:00:00 Wondiful A [place] [id number] ity of [id number] [phone] [facility] [address] [facility] 2019-12-11 2019-12-11 Transition Abelino Conteh 1.2.840.114 [id number] Univers 00:00:00 00:00:00 of Care Demetrio A [place] [id number] ity [place] [id number] [phone] [facility] [address] 2019-12-05 2019-12-08 Inpatient R BETHANY [facility] [id number] Univers 05:41:49 15:24:00 BOBBY ity [facility] 2019-12-05 2019-12-08 Hospital Britta Sims [id number] Univers 05:41:49 15:24:00 Encounter Bobby Rodarte [place] 350.1.13.10 ity of [facility] 4.2.7.2.686 Varinder as [phone] [facility] [address] 2019-12-04 2019-12-04 Laboratory Only, Adc Test [facility] 1.2.840. 114 [id number] Univers 13:54:20 14:00:22 Only Bobby Sims [place] 350.1.13.10 ity [place] [phone] [facility] [address] [facility] 2019-12-04 2019-12-04 Outpatient R BETHANY [facility] [id number] Univers 13:45:00 13:45:00 BOBBY ity [facility] 2019-11-27 2019-11-27 Tele[facility] 1.2.840.114 [id number] Univers 00:00:00 00:00:00 Wondiful [facility] 350.1.13.10 ity of [place] 4.2.7.2.686 Varinder as Professio [phone] [address] Office [facility] 2019-11-21 2019-11-21 Prep For Hung, UNIVERSIT 1.2.840.114 [id number] Univers 00:00:00 00:00:00 Surgery Kalyn Y HEALTH 350.1.13.10 i ty [place] [phone] [address] 2019-11-21 2019-11-21 Case Hung, UNIVERSIT 1.2.840.114 [id number] Univers 00:00:00 00:00:00 Management Kalyn [facility] 350.1.13.10 [place] [phone] [address] 2019-11-21 2019-11-21 Case Hung, UNIVERSIT 1.2.840.114 [id number] Univers 00:00:00 00:00:00 Management Kalyn Y HE[facility] 350.1.13.10 it[place] [phone] [address] 2019-11-13 2019-11-13 [facility] 1.2.840.114 [id number] Univers 00:00:00 00:00:00 W[facility]iful [facility] 350.1.13.10 ity of [place] 4.2.7.2.686 [place] Professio [phone] [address] 2019-10-05 2019-10-05 Telephone LUIS A PersaudIT 1.2.840.114 [id number] Univers 00:00:00 00:00:00 Kalyn Y HEALTH 350.1.13.10 i ty [place] [phone] [address] 2019-09-27 2019-09-27 Case Hung, UNIVERSIT 1.2.840.114 [id number] Univers 00:00:00 00:00:00 Management Kalyn Y HEALTH 350.1.13.10 it[place] [phone] [address] 2019-09-22 2019-09-22 Prep For Hung, UNIVERSIT 1.2.840.114 [id number] Univers 00:00:00 00:00:00 Surgery Kalyn Y HEALTH 350.1.13.10 i ty of [facility] [place] [phone] [address] 2019-09-20 2019-09-20 Office Bethany [facility] 1.2.840.114 [id number] Univers 14:19:19 14:46:30 Visit Bobby Pena 350.1.13.10 ity of [place] [phone] Ut dic[address] 2019-09-20 2019-09-20 Outpatient R B[facility]ANY [facility] [id number] Univers 14:15:00 14:15:00 BOBBY ity of [facility] 2019-09-01 2019-09-01 Orders Doctor YIP 1.2.840.114 [id number] Univers 00:00:00 00:00:00 Only Unassigned, EVELYNE 350.1.13.10 ity of [place] [facility] 4.2.7.2.686 Varinder as [phone] [address] 2019-08-31 2019-08-31 Office [facility] 1.2.840.114 [id number] Univers 15:53:30 16:20:15 Visit Phuongful [facility] 350.1.13.10 ity of [place] 4.2.7.2.686 Varinder as Professio [phone] [facility] [address] [facility] 2019-08-24 2019-08-24 Orders Doctor PHI 1.2.840.114 [id number] Univers 00:00:00 00:00:00 Only Unassigned, EVELYNE 350.1.13.10 ity of [place] [facility] 4.2.7.2.686 Varinder as [phone] [address] 2019-08-11 2019-08-11 Orders Doctor YIP 1.2.840.114 [id number] Univers 00:00:00 00:00:00 Only Unassigned, EVELYNE 350.1.13.10 ity of [place] [facility] 4.2.7.2.686 Varinder as [phone] [address] 2019-08-03 2019-08-03 Orders Doctor PHI 1.2.840.114 [id number] Univers 00:00:00 00:00:00 Only Unassigned, EVELYNE 350.1.13.10 ity of [place] [facility] 4.2.7.2.686 Varinder as [phone] [address] 2019-07-18 2019-07-18 Orders Doctor PHI 1.2.840.114 [id number] Univers 00:00:00 00:00:00 Only Unassigned, EVELYNE 350.1.13.10 ity of [place] [facility] 4.2.7.2.686 Varinder as [phone] [address] 2019-07-14 2019-07-14 Outpatient R [facility]KA [facility] [id number] Univers 15:23:29 19:14:00 WONDIFUL ity o f [facility] 2019-07-12 2019-07-12 Orders Doctor YIP 1.2.840.114 [id number] Univers 00:00:00 00:00:00 Only Unassigned, EVELYNE 350.1.13.10 ity of [place] [facility] 4.2.7.2.686 Var[place] as [phone] [address] 2019-07-03 2019-07-03 Orders Doctor YIP 1.2.840.114 [id number] Univers 00:00:00 00:00:00 Only Unassigned, EVELYNE 350.1.13.10 ity of [place] [facility] 4.2.7.2.686 Varinder as [phone] [address] 2019-04-03 2019-04-03 Telephone Zuleyka [facility] 1.2.840.114 [id number] Univers 00:00:00 00:00:00 [facility] 350.1.13.10 ity of [place] 4.2.7.2.686 Varinder as Professio [phone] [place] [address] [address] [facility] 2019-04-02 2019-04-02 Orders Doctor PHI Deluna.2.840.114 [id number] Univers 00:00:00 00:00:00 Only Unassigned, EVELYNE 350.1.13.10 ity of [place] [facility] 4.2.7.2.686 Varinder as [phone] [facility] [address] 2019-03-29 2019-03-29 Office Bethany, [facility] 1.2.840.114 [id number] Univers 14:03:52 14:50:17 Visit Bobby Garciaton 350.1.13.10 [place]y [place] [phone] Ut dicak rip [address] [facility] 2019-03-24 2019-03-24 Telephone Zuleyka, [facility] 1.2.840.114 [id number] Univers 00:00:00 00:00:00 [facility] 350.1.13.10 ity of [place] 4.2.7.2.686 Varinder as Professio [phone] [facility] [address] [place] [facility] 2019-03-23 2019-03-23 Office Hunter [facility] 1.2.792.609 [id number] Univers 13:49:44 15:19:34 Visit Ping Jean 350.1.13.10 i [place] [phone] [facility] [address] [facility] 2019-03-23 2019-03-23 Curriculum And Instruction Specialist Lab, Adc Fam Pob I [facility] 1.2. 840.114 [id number] Univers 13:25:06 13:41:58 Visit [facility] 350.1.13.1 0 ity of [place] 4.2.7.2.686 Varinder as Professio [phone] [facility] [address] [place] [facility] 2019-03-16 2019-03-16 Office Zuleyka, [facility] 1.2.840.114 [id number] Univers 15:47:43 16:37:58 Visit Jeffrymalu [facility] 350.1.13.10 ity of [place] 4.2.7.2.686 Varinder as Professio [phone] [facility] [address] [place] [facility] 2019-03-16 2019-03-16 Orders Doctor YIP 1.2.840.114 [id number] Univers 00:00:00 00:00:00 Only Unassigned, EVELYNE 350.1.13.10 ity of [place] [facility] 4.2.7.2.686 Varinder as [phone] [address] 2019-03-15 2019-03-15 Telephone MADAI [facility] 1.2.840.114 [id number] Univers 00:00:00 00:00:00 [facility] 350.1.13.10 ity of [place] 4.2.7.2.686 Varinder as Professio [phone] [facility] [address] [facility] 2019-03-08 2019-03-08 Orders Doctor PHI 1.2.840.114 [id number] Univers 00:00:00 00:00:00 Only Unassigned, EVELYNE 350.1.13.10 ity of [place] [facility] 4.2.7.2.686 Varinder as [phone] [address] Results Test Description Test Time Test Comments Results Result Comments Source GLYCOSYLATED HEMOGLOBIN (A1C) 2020-03-29 04:32:00 Test Item Value Reference Range Interpretation Comme nts HGB A1C (test code = 4548-4) 5.4 % 4-6 KIM (test code = KIM) %A1C (NGSP) Interpretation (ADA)4.8-5.6 ? ? Normal or (Non-Diabetic Range)5.7-6.4 ? ? Increased Risk (Pre-Diabetic)>6.5 ?Diabetes Indicated Lab Interpretation (test code = Normal 49945-6) [facility] [id number] 04:04:00 Test Item Value Reference Range Interpretation Comments TSH (test code = See_Comment [Automated message] 0029458974) The system [employer] h generated this result transmitted ref erence range: 0.45 - 4 .70 mIU/L. The refe rence range was not u sed to interpret this result as normal/abnor mal. Lab Interpretation (test Normal code = 38780-6) [facility] 03:38:00 Test Item Value Reference Range Interpretation Comments APPEARANCE (test code = Clear Clear 6642032446) COLOR (test code = Yellow Yellow 1005598244) PH (test code = 4.8-8.0 3490413349) SP GRAVITY (test code = 1.003-1.030 0503119244) GLU U QUAL (test code = 50 mg/dL Normal A 3213695057) BLOOD (test code = 1+ Negative A 8581884804) KETONES (test code = Negative Negative 2365910851) PROTEIN (test code = Negative Negative 2887-8) UROBILIN (test code = Normal Normal 5942685310) BILIRUBIN (test code = Negative Negative 9543981051) NITRITE (test code = Negative Negative 8486228608) LEUK NASRIN (test code = Negative Negative 7225842106) RBC/HPF (test code = See_Comment [Autom ated message] 9213549526) The system [employer] generated this result transmitted ref erence range: 0 - 3 HP F. The reference range was not used to int erpret this result as normal/abnormal . WBC/HPF (test code = See_Comment [Autom ated message] 0078779184) The system [employer] generated this result transmitted ref erence range: 0 - 5 HP F. The reference range was not used to int erpret this result as normal/abnormal . BACTERIA (test code = Few Negative A 6284066220) MUCOUS (test code = Slight Negative LPF A 9317328068) SQ EPITH (test code = HPF 5897670757) HYAL CAST (test code = See_Comment H [Aut omated message] 9868214606) The system [employer] generated this result transmitted ref erence range: <=2 LPF. The reference range was not used to int erpret this result as normal/abnormal . Lab Interpretation (test Abnormal code = 22069-4) [facility]OLIC PANEL (70064)2020-03-29 03:34:00 Test Item Value Reference Range Interpretation Comments NA (test code = 141 mmol/L 135-145 4703384952) K (test code = 3.9 mmol/L 3.5-5 6250780676) CL (test code = 111 mmol/L 98-108 H 8632579455) CO2 TOTAL (test code = 21 mmol/L 23-31 L 5309482566) AGAP (test code = 2-16 1004516263) BUN (test code = 18 mg/dL 7-23 9939878975) GLUCOSE (test code = 209 mg/dL 70-110 H 6302674923) CREATININE (test code = 1.03 mg/dL 0.5-1.04 5166927695) TOTAL BILI (test code = 0.7 mg/dL 0.1-1.8 8584535082) CALCIUM (test code = 9.1 mg/dL 8.6-10.6 7298556807) T PROTEIN (test code = 6.6 g/dL 6.3-8.2 3908202073) ALBUMIN (test code = 4.0 g/dL 3.5-5 0176469955) ALK PHOS (test code = 111 U/L 34-122 3078832681) ALTv (test code = 15 U/L 5-35 2-6) AST(SGOT) (test code = 27 U/L 13-40 0272116788) eGFR Calculation mL/min/1.73m2 (Non-) (test code = 7382087411) eGFR Calculation mL/min/1.73m2 () (test code = 6502658153) KIM (test code = KIM) Association of [...] tests). Lab Interpretation Abnormal (test code = 38710-5) [facility] WITH [id number] 03:19:00 Test Item Value Reference Range Interpretation Comments WBC (test code = See_Comment H [Automated 0590-2) message] The sy stem which generated this [...] RDW-SD (test code = 45.0 fL 39-49.9 45306-1) RDW-CV (test code = 13.1 % 12-15.5 788-0) PLT (test code = See_Comment [Automated 777-3) message] The sy stem which generated this result transmitted reference range : 166 - 358 10*3/ ?L. The reference r lucas was not used to interpret this result as normal/abnormal . MPV (test code = 10.0 fL 9.5-12.9 83716-0) NRBC/100 WBC (test See_Comment [Automat ed code = 8226740608) message] The system which generated this result transmitted reference range : 0.0 - 10.0 /100 WBCs. The refer ence range was not u sed to interpret th is result as normal/abnormal . NRBC x10^3 (test code <0.01 See_Comment [Auto mated = 5082625063) message] The s ystem which generated this result transmitted reference range : 10*3/?L. The reference range was not used to interpret this result as normal/abnormal . GRAN MAT (NEUT) % 80.1 % (test code = 770-8) IMM GRAN % (test code 0.40 % = 2099868913) LYMPH % (test code = 13.8 % 736-9) MONO % (test code = 5.2 % 5905-5) EOS % (test code = 0.2 % 713-8) BASO % (test code = 0.3 % 706-2) GRAN MAT x10^3(ANC) 9.51 10*3/uL 1.88-7.09 H (test code = 6700279046) IMM GRAN x10^3 (test 0.05 10*3/uL 0-0.06 code = 9267213647) LYMPH x10^3 (test code 1.64 10*3/uL 1.32-3.29 = 731-0) MONO x10^3 (test code 0.62 10*3/uL 0.33-0.92 = 742-7) EOS x10^3 (test code = <0.03 0.03-0.39 L 711-2) BASO x10^3 (test code 0.04 10*3/uL 0.01-0.07 = 704-7) Lab Interpretation Abnormal (test code = 63321-1) [facility]NE[facility]CCAL [id number] 18:02:00 Test Item Value Reference Range Interpretation Comments S. pneumoniae antigen (test code = Negative Negative 1111842066) Lab Interpretation (test code = Normal 52310-0) [facility] CenterProcalcitonin2020-07-30 17:00:00 Test Item Value Reference Range Interpretation Comments Procalcitonin (test 0.04 ng/mL <0.07 code = 4304865481) KIM (test code = KIM) INTERPRETATION OF [...] lung abscess/empyema. For further information please refer to:[email or web address] Lab Interpretation Normal (test code = 88238-3) [facility] CenterFECAL [id number] 16:39:00 Test Item Value Reference Range Interpretation Comments Fecal Leukocytes (test code = Negative Negative 8373913840) Lab Interpretation (test code = Normal 55121-3) [facility] CenterVITAMIN B12, [id number] 16:37:00 Test Item Value Reference Range Interpretation Comments VIT B12 (test code = 247 pg/mL 240-930 5286581045) KIM (test code = KIM) Biotin has been reported to cause a positive bias, interpret results relative to patient's use of biotin. Lab Interpretation (test Normal code = 22594-1) [facility] Center[facility] D, [id number] 16:15:00 Test Item Value Reference Range Interpretation Comments VIT D 25OH (test code = <13 25-80 L 62398-1) KIM (test code = KIM) Deficiency: <20 ng/mLInsufficiency: 20-24 ng/mLOptimal: 25-80 ng/mL Lab Interpretation (test Abnormal code = 43370-3) [facility] CenterLEGIONELLA URINARY ANTIGEN [id number] 15:57:00 Test Item Value Reference Range Interpretation Comments Legionella Urinary Negative Negative Antigen (test code = 4332782723) KIM (test code = KIM) Negative for [...] test. Lab Interpretation (test Normal code = 21743-4) [facility] CenterTroponin [id number] 14:53:00 Test Item Value Reference Range Interpretation Comments TROPONIN I (test 0.029 ng/mL See_Comment [Automated code = 1492788466) message] The system which generated this result [...] ? Lab Interpretation Normal (test code = 19010-6) [facility] CenterXR ABDOMEN 2 [id number] 12:54:39HISTORY: Abdominal pain. FINDINGS: AP supine and upright views of the abdomen showed unremarkableintestinal gas pattern. Small amount of air and fecal material notedthroughout the large bowel. Cholecystectomy clips are seen in the rightupper abdomen. Upright view showed no free air.A short radiopaque catheter type device noted projected over the lateralleft mid abdomen. No organomegaly. No aggressivebone lesions. CONCLUSIONS: No acute findings.. Vtmb, Radiant Results Inft User - 02/22/2020 7:55 [...] organomegaly. No aggressive bone lesions.CONCLUSIONS: No acute findings..[facility] Glycosylated Hemoglobin (A1C)2020-02-22 07:44:00 Test Item Value Reference Range Interpretation Comments HGB A1C (test code = 5.4 % 4-6 4548-4) KIM (test code = KIM) %A1C (NGSP) Interpretation (ADA)4.8-5.6 ? ? Normal or (Non-Diabetic Range)5.7-6.4 ? ? Increased Risk (Pre-Diabetic)>6.5 ?Diabetes Indicated Lab Interpretation Normal (test code = 80991-4) [facility] CenterLIPID PANEL (48774)(TOTAL CHOLESTEROL, TRIGLYCERIDES, HDL)2020-02-22 07:39:00 Test Item Value Reference Range Interpretation Comments CHOL (test code = 196 mg/dL 120-200 8573576561) HDL (test code = 49 mg/dL >50 L 1896537418) HDLC RATIO (test code = See_Comment [Au tomated message] 2163390642) The system [employer] generated this result transmit leann reference range : <=4.5. The refe rence range was not u sed to interpret th is result as normal/abnormal . TRIG (test code = 121 mg/dL 30-170 0751238322) LDL CHOL (test code = 123 mg/dL See_Comment [Auto mated message] 36773-1) The system [employer] generated this result transmit leann reference range : <=160. The refe rence range was not u sed to interpret th is result as normal/abnormal . VLDL (test code = 24 mg/dL 5-60 9798733726) Lab Interpretation (test Abnormal code = 26511-8) [facility] CenterIRON [id number] 07:37:00 Test Item Value Reference Range Interpretation Comments IRON (test code = 8494411005) 50 ug/dL 50-160 TIBC (test code = 9426333507) 243 ug/dL 250-410 L % FE SAT (test code = 0097161757) 21 % 20-50 Lab Interpretation (test code = Abnormal 02069-1) [facility] CenterCLOSTRIDIUM DIFFICILE [id number] 06:39:00 Test Item Value Reference Range Interpretation Comments Clostridioides (Clostridium) Negative Negative difficile (test code = 33948-7) Lab Interpretation (test code = Normal 70849-0) [facility] CenterBasi Metabolic Panel (NA, K, CL, CO2, GLUCOSE, BUN, CREATININE, CA)2020-02-22 06:26:00 Test Item Value Reference Range Interpretation Comments NA (test code = 135 mmol/L 135-145 0833221092) K (test code = 4.4 mmol/L 3.5-5 7732097877) CL (test code = 106 mmol/L 98-108 0080616328) CO2 TOTAL (test code = 24 mmol/L 23-31 0639770420) AGAP (test code = 2-16 3072590785) BUN (test code = 23 mg/dL 7-23 7196101081) GLUCOSE (test code = 119 mg/dL 70-110 H 1525751460) CREATININE (test code = 0.90 mg/dL 0.5-1.04 3823914237) CALCIUM (test code = 8.7 mg/dL 8.6-10.6 2020337820) eGFR Calculation mL/min/1.73m2 (Non-) (test code = 7510864711) eGFR Calculation mL/min/1.73m2 () (test code = 8610174382) KIM (test code = KIM) Association of [...] tests). Lab Interpretation Abnormal (test code = 88958-2) [facility] [id number] 06:24:00 Test Item Value Reference Range Interpretation Comments TROPONIN I (test 0.033 ng/mL See_Comment [Automated code = 9197278338) message] The system which generated this result [...] ? Lab Interpretation Normal (test code = 80019-2) [facility] [id number] 06:23:00 Test Item Value Reference Range Interpretation Comments TROPONIN I (test 0.032 ng/mL See_Comment [Automated code = 9684749370) message] The system which generated this result [...] ? Lab Interpretation Normal (test code = 68211-1) [facility] CenterURINALYSIS2020-07-30 05:49:00 Test Item Value Reference Range Interpretation Comments APPEARANCE (test code = Clear Clear 2630619183) COLOR (test code = Straw Yellow A 5315192366) PH (test code = 4.8-8.0 6170762838) SP GRAVITY (test code = 1.003-1.030 4837793539) GLU U QUAL (test code = Normal Normal 5636983608) BLOOD (test code = 1+ Negative A 0914639582) KETONES (test code = Negative Negative 1438297386) PROTEIN (test code = Negative Negative 2887-8) UROBILIN (test code = Normal Normal 6671552481) BILIRUBIN (test code = Negative Negative 7262301028) NITRITE (test code = Negative Negative 5605369732) LEUK NASRIN (test code = Negative Negative 4782751801) RBC/HPF (test code = See_Comment [Autom ated message] 5466076371) The system [employer] generated this result transmitted ref erence range: 0 - 3 HP F. The reference range was not used to int erpret this result as normal/abnormal . WBC/HPF (test code = <1 See_Comment [Autom ated message] 0448137059) The system [employer] generated this result transmitted ref erence range: 0 - 5 HP F. The reference range was not used to int erpret this result as normal/abnormal . BACTERIA (test code = Negative Negative 5001083269) MUCOUS (test code = Slight Negative LPF A 4368120012) SQ EPITH (test code = <1 HPF 1753842475) Lab Interpretation (test Abnormal code = 28478-5) [facility] with [id number] 05:33:00 Test Item Value Reference Range Interpretation [...] RDW-SD (test code = 48.6 fL 39-49.9 76786-8) RDW-CV (test code = 13.9 % 12-15.5 788-0) PLT (test code = See_Comment [Automated 777-3) message] The sy stem which generated this result transmitted reference range : 166 - 358 10*3/ ?L. The reference r lucas was not used to interpret this result as normal/abnormal . MPV (test code = 10.2 fL 9.5-12.9 96797-7) NRBC/100 WBC (test See_Comment [Automat ed code = 6168730933) message] The system which generated this result transmitted reference range : 0.0 - 10.0 /100 WBCs. The refer ence range was not u sed to interpret th is result as normal/abnormal . NRBC x10^3 (test code <0.01 See_Comment [Auto mated = 4244756113) message] The s ystem which generated this result transmitted reference range : 10*3/?L. The reference range was not used to interpret this result as normal/abnormal . GRAN MAT (NEUT) % 58.2 % (test code = 770-8) IMM GRAN % (test code 0.70 % = 2478813603) LYMPH % (test code = 32.2 % 736-9) MONO % (test code = 7.3 % 5905-5) EOS % (test code = 1.2 % 713-8) BASO % (test code = 0.4 % 706-2) GRAN MAT x10^3(ANC) 6.62 10*3/uL 1.88-7.09 (test code = 5927390675) IMM GRAN x10^3 (test 0.08 10*3/uL 0-0.06 H code = 4095756381) LYMPH x10^3 (test code 3.66 10*3/uL 1.32-3.29 H = 731-0) MONO x10^3 (test code 0.83 10*3/uL 0.33-0.92 = 742-7) EOS x10^3 (test code = 0.14 10*3/uL 0.03-0.39 711-2) BASO x10^3 (test code 0.04 10*3/uL 0.01-0.07 = 704-7) Lab Interpretation Abnormal (test code = 06461-6) [facility] CenterMAGNESIUM2020-07-30 04:09:00 Test Item Value Reference Range Interpretation Comments MAGNESIUM (test code = 0099935881) 2.1 mg/dL 1.7-2.4 Lab Interpretation (test code = Normal 04760-3) [facility] CenterPHOSPHORUS2020-07-30 04:08:00 Test Item Value Reference Range Interpretation Comments PHOSPHORUS (test code = 4316849576) 3.6 mg/dL 2.5-5 Lab Interpretation (test code = Normal 54997-0) [facility] CenterFERRITIN [id number] 01:37:00 Test Item Value Reference Range Interpretation Comments FERRITIN (test code = 36.4 ng/mL 11-264 3287525009) KIM (test code = KIM) Biotin has been reported to cause a negative bias, interpret results relative to patient's use of biotin. Lab Interpretation (test Normal code = 99638-7) [facility] CenterLipid Panel (Total Cholesterol, Triglycerides, HDL)2020-02-21 23:53:00 Test Item Value Reference Range Interpretation Comments CHOL (test code = 200 mg/dL 120-200 1433436865) HDL (test code = 48 mg/dL >50 L 1765793202) HDLC RATIO (test code = See_Comment [Au tomated message] 9517572289) The system [employer] generated this result transmit leann reference range : <=4.5. The refe rence range was not u sed to interpret th is result as normal/abnormal . TRIG (test code = 101 mg/dL 30-170 0329829757) LDL CHOL (test code = 132 mg/dL See_Comment [Auto mated message] 92751-8) The system [employer] generated this result transmit leann reference range : <=160. The refe rence range was not u sed to interpret th is result as normal/abnormal . VLDL (test code = 20 mg/dL 5-60 3562497818) Lab Interpretation (test Abnormal code = 26752-0) [facility] CenterTROPONIN [id number] 17:31:00 Test Item Value Reference Range Interpretation Comments TROPONIN I (test 0.035 ng/mL See_Comment H [Automated code = 9365659858) message] The system which generated this result [...] ? Lab Interpretation Abnormal (test code = 29506-0) [facility]. METABOLIC PANEL (56072)2020-02-21 17:21:00 Test Item Value Reference Range Interpretation Comments NA (test code = 137 mmol/L 135-145 3109136281) K (test code = 4.6 mmol/L 3.5-5 8564724926) CL (test code = 111 mmol/L 98-108 H 5071495820) CO2 TOTAL (test code = 22 mmol/L 23-31 L 4207002776) AGAP (test code = 2-16 1198257303) BUN (test code = 25 mg/dL 7-23 H 7836194502) GLUCOSE (test code = 124 mg/dL 70-110 H 3392394274) CREATININE (test code = 0.86 mg/dL 0.5-1.04 0834754060) TOTAL BILI (test code = 0.6 mg/dL 0.1-1.9 2827183933) CALCIUM (test code = 8.1 mg/dL 8.6-10.6 L 4604038846) T PROTEIN (test code = 5.8 g/dL 6.3-8.2 L [id number]) ALBUMIN (test code = 3.2 g/dL 3.5-5 L [id number]) ALK PHOS (test code = 103 U/L 34-122 1894305834) ALTv (test code = 33 U/L 5-35 1742-6) AST(SGOT) (test code = 27 U/L 13-40 5036744515) eGFR Calculation mL/min/1.73m2 (Non-) (test code = 9306732698) eGFR Calculation mL/min/1.73m2 () (test code = 1952285573) KIM (test code = KIM) Association of [...] tests). Lab Interpretation Abnormal (test code = 79685-7) [place] [facility] 17:20:00 Test Item Value Reference Range Interpretation Comments LIPASE (test code = 6623120505) 190 U/L 0-220 Lab Interpretation (test code = Normal 82488-5) [facility] CenterL[facility] Whole [id number] 17:06:00 Test Item Value Reference Range Interpretation Comments LACTIC ACID (test code = 1.18 mmol/L 0.3-2.6 7477569504) Lab Interpretation (test code = Normal 04591-2) [facility] CenterCOVID[facility] (ID NOW RAPID TESTING)2020-02-21 16:01:00 Test Item Value Reference Range Interpretation Comments SARS-CoV-2 Rapid ID NOW Not Detected Not Detected (test code = 53406-8) KIM (test code = KIM) ID NOW COVID-19 Assay is an isothermal nucleic acid amplification test intended for the qualitative detection of nucleic acid from SARS-CoV-2 viral RNA in nasopharyngeal (IC ENGINEER) specimens. It is used under Emergency Use [...] indicated. Lab Interpretation Normal (test code = 55658-5) [facility] CenterXR CHEST 1 [id number] 15:51:41HISTORY: Shortness of breath. TECHNIQUE: Portable AP [...] upper abdomen.CONCLUSIONS: No signs of acute cardiopulmonary disease.[facility] CenterCB WITH [id number] 15:41:00 Test Item Value Reference Range Interpretation [...] RDW-SD (test code = 47.2 fL 39-49.9 22247-4) RDW-CV (test code = 14.1 % 12-15.5 788-0) PLT (test code = See_Comment [Automated 777-3) message] The sy stem which generated this result transmitted reference range : 166 - 358 10*3/ ?L. The reference r lucas was not used to interpret this result as normal/abnormal . MPV (test code = 10.7 fL 9.5-12.9 55504-9) NRBC/100 WBC (test See_Comment [Automat ed code = 5011957541) message] The system which generated this result transmitted reference range : 0.0 - 10.0 /100 WBCs. The refer ence range was not u sed to interpret th is result as normal/abnormal . NRBC x10^3 (test code <0.01 See_Comment [Auto mated = 1792200638) message] The s ystem which generated this result transmitted reference range : 10*3/?L. The reference range was not used to interpret this result as normal/abnormal . GRAN MAT (NEUT) % 65.3 % (test code = 770-8) IMM GRAN % (test code 1.20 % = 1763926578) LYMPH % (test code = 23.9 % 736-9) MONO % (test code = 7.3 % 5905-5) EOS % (test code = 1.8 % 713-8) BASO % (test code = 0.5 % 706-2) GRAN MAT x10^3(ANC) 7.63 10*3/uL 1.88-7.09 H (test code = 6168144537) IMM GRAN x10^3 (test 0.14 10*3/uL 0-0.06 H code = 4142269323) LYMPH x10^3 (test code 2.79 10*3/uL 1.32-3.29 = 731-0) MONO x10^3 (test code 0.85 10*3/uL 0.33-0.92 = 742-7) EOS x10^3 (test code = 0.21 10*3/uL 0.03-0.39 711-2) BASO x10^3 (test code 0.06 10*3/uL 0.01-0.07 = 704-7) Lab Interpretation Abnormal (test code = 62088-3) [facility] CenterTHYROID STIMULATING [id number] 23:07:00 Test Item Value Reference Range Interpretation Comments TSH (test code = See_Comment [Automated message] 6943166879) The system Cued[employer] generated this result transmitted ref erence range: 0.45 - 4 .70 mIU/L. The refe rence range was not u sed to interpret this result as normal/abnor mal. Lab Interpretation (test Normal code = 51119-0) [facility]XR CHEST 1 [id number] 22:32:37CHEST ONE VIEW HISTORY: ?Chest pain TECHNIQUE: [...] right. CONCLUSIONS: No acute c ardiopulmonary disease. [facility], Radiant Results Inft User - 02/14/2020 5:33 PM CDTCHEST ONE VIEWHISTORY: Chest painTECHNIQUE: AP view of the chest is obtained.COMPARISON: 07/14/2019FINDINGS:Elevation of the left hemidiaphragm is seen.The lungs are clear. No focal consolidation is seen.Heart size is normal. No pleural effusion or pneumothorax is identified.A hiatal hernia is noted.Scoliosis of the thoracic spine is seen with convexity to the right.CONCLUSIONS: No acute cardiopulmonary disease.[facility] CenterLactic Acid Whole [id number] 22:30:00 Test Item Value Reference Range Interpretation Comments LACTIC ACID (test code = 1.38 mmol/L 4835537607) [facility] CenterURINALYSIS2020-07-22 22:04:00 Test Item Value Reference Range Interpretation Comments APPEARANCE (test code = Clear Clear 4596700026) COLOR (test code = Yellow Yellow 3943717102) PH (test code = 4.8-8.0 3519187496) SP GRAVITY (test code = 1.003-1.030 6289737803) GLU U QUAL (test code = Normal Normal 4747513449) BLOOD (test code = 1+ Negative A 7845690225) KETONES (test code = 5 mg/dL Negative A 9288304844) PROTEIN (test code = Negative Negative 2887-8) UROBILIN (test code = Normal Normal 9097004990) BILIRUBIN (test code = Negative Negative 1394173575) NITRITE (test code = Negative Negative 5715768205) LEUK NASRIN (test code = Negative Negative 1436549862) RBC/HPF (test code = See_Comment [Autom ated message] 3706847799) The system Cued[employer] generated this result transmitted ref erence range: 0 - 3 HP F. The reference range was not used to int erpret this result as normal/abnormal . WBC/HPF (test code = <1 See_Comment [Autom ated message] 5158442588) The system [employer] generated this result transmitted ref erence range: 0 - 5 HP F. The reference range was not used to int erpret this result as normal/abnormal . BACTERIA (test code = Negative Negative 8139500056) MUCOUS (test code = Slight Negative LPF A 2341375009) SQ EPITH (test code = HPF 0339283175) HYAL CAST (test code = See_Comment H [Aut omated message] 6830590295) The system C[employer] generated this result transmitted ref erence range: <=2 LPF. The reference range was not used to int erpret this result as normal/abnormal . Lab Interpretation (test Abnormal code = 58198-7) [facility] CenterD-[id number] 21:43:00 Test Item Value Reference Interpretation Comments Range D-DIMER (test code = See_Comment H [Autom ated 4673504746) message] The system which generated this result [...] diagnosis. Lab Interpretation Abnormal (test code = 91653-3) [facility] CenterTROPONIN [id number] 21:31:00 Test Item Value Reference Range Interpretation Comments TROPONIN I (test 0.034 ng/mL See_Comment [Automated code = 3391452302) message] The system which generated this result [...] ? Lab Interpretation Normal (test code = 67827-8) [facility]. METABOLIC PANEL (14132)2020-02-14 21:19:00 Test Item Value Reference Range Interpretation Comments NA (test code = 138 mmol/L 135-145 3864801361) K (test code = 4.8 mmol/L 3.5-5 8585166546) CL (test code = 105 mmol/L 98-108 1708740558) CO2 TOTAL (test code = 22 mmol/L 23-31 L 7428831470) AGAP (test code = 2-16 6173412774) BUN (test code = 25 mg/dL 7-23 H 1707212384) GLUCOSE (test code = 125 mg/dL 70-110 H 3399078393) CREATININE (test code = 0.90 mg/dL 0.5-1.04 7264768503) TOTAL BILI (test code = 0.9 mg/dL 0.1-1.0 8962616481) CALCIUM (test code = 9.9 mg/dL 8.6-10.6 0856552278) T PROTEIN (test code = 8.0 g/dL 6.3-8.2 8631731454) ALBUMIN (test code = 4.5 g/dL 3.5-5 3003862969) ALK PHOS (test code = 109 U/L 34-122 4030940940) ALTv (test code = 37 U/L 5-35 H 1742-6) AST(SGOT) (test code = 40 U/L 13-40 4321500107) eGFR Calculation mL/min/1.73m2 (Non-) (test code = 4315125514) eGFR Calculation mL/min/1.73m2 () (test code = 6086352141) KIM (test code = KIM) Association of [...] tests). Lab Interpretation Abnormal (test code = 57412-4) [facility] CenterLIPASE, [id number] 21:19:00 Test Item Value Reference Range Interpretation Comments LIPASE (test code = 0656253950) 269 U/L 0-220 H Lab Interpretation (test code = Abnormal 03120-3) [facility] CenteraPTT2020-07-22 21:15:00 Test Item Value Reference Range Interpretation Comments APTT Patient (test See_Comment L [Automat ed code = 3173-2) message] The system which generated this result transmitted reference range : 23 - 38 Seconds . The reference range was not used to interpr et this result as normal/abnormal . KIM (test code = KIM) The [facility] patient population mean normal value for aPTT is 30 seconds. Lab Interpretation Abnormal (test code = 31124-9) [facility] CenterPROTHROMBIN TIME / [id number] 21:13:00 Test Item Value Reference Range Interpretation [...] tions. Lab Interpretation (test Abnormal code = 40579-8) [facility] WITH [id number] 21:11:00 Test Item Value Reference Range Interpretation [...] RDW-SD (test code = 45.9 fL 39-49.9 90771-5) RDW-CV (test code = 13.6 % 12-15.5 788-0) PLT (test code = See_Comment [Automated 777-3) message] The system which generated this result transmit leann reference range : 166 - 358 10*3/ ?L. The reference range was not u sed to interpret th is result as normal/abnormal . MPV (test code = 10.1 fL 9.5-12.9 96865-4) NRBC/100 WBC (test See_Comment [Automat ed code = 2540960456) message] The system which generated this result transmit leann reference range : 0.0 - 10.0 /100 WBCs. The reference range was not used to interpret this result as normal/abnormal . NRBC x10^3 (test code <0.01 See_Comment [Auto mated = 6020186049) message] The system which generated this result transmit leann reference range : 10*3/?L. The reference range was not used to interpret this result as normal/abnormal . GRAN MAT (NEUT) % 85.0 % (test code = 770-8) IMM GRAN % (test code 1.40 % = 8410768289) LYMPH % (test code = 10.1 % 736-9) MONO % (test code = 2.9 % 5905-5) EOS % (test code = 0.3 % 713-8) BASO % (test code = 0.3 % 706-2) GRAN MAT x10^3(ANC) 14.85 10*3/uL 1.88-7.09 H (test code = 6367688614) IMM GRAN x10^3 (test 0.24 10*3/uL 0-0.06 H code = 0372821202) LYMPH x10^3 (test code 1.77 10*3/uL 1.32-3.29 = 731-0) MONO x10^3 (test code 0.51 10*3/uL 0.33-0.92 = 742-7) EOS x10^3 (test code = 0.06 10*3/uL 0.03-0.39 711-2) BASO x10^3 (test code 0.06 10*3/uL 0.01-0.07 = 704-7) Lab Interpretation Abnormal (test code = 20464-7) [facility] CenterCT ABDOMEN PELVIS W [id number] 20:16:21Impression: 1. ?Findings concerning for cystitis. 2. [...] from a prior laparoscopicsurgery (2:52 and 66). [facility], Radiant Results Inft User - 01/03/2020 3:17 [...] surgery. Postsurgical changes are seen at the GEjunction.[facility] CenterUrinalysis2020-06-10 18:27:00 Test Item Value Reference Range Interpretation Comments APPEARANCE (test code = Clear Clear 1151540849) COLOR (test code = Belkis Yellow A 6533667922) PH (test code = 4.8-8.0 4869178891) SP GRAVITY (test code = 1.003-1.030 1285872964) GLU U QUAL (test code = Normal Normal 6274272597) BLOOD (test code = 1+ Negative A 4911809336) KETONES (test code = Negative Negative 9963363552) PROTEIN (test code = Negative Negative 2887-8) UROBILIN (test code = Normal Normal 8680484286) BILIRUBIN (test code = Negative Negative 0985789142) NITRITE (test code = Negative Negative 1356269933) LEUK NASRIN (test code = Negative Negative 5850493391) RBC/HPF (test code = See_Comment [Autom ated message] 4825733147) The system Cued[employer] generated this result transmitted ref erence range: 0 - 3 HP F. The reference range was not used to int erpret this result as normal/abnormal . WBC/HPF (test code = <1 See_Comment [Autom ated message] 7762706806) The system Cued[employer] generated this result transmitted ref erence range: 0 - 5 HP F. The reference range was not used to int erpret this result as normal/abnormal . BACTERIA (test code = Few Negative A 6707935033) MUCOUS (test code = Moderate Negative LPF A 0190251281) SQ EPITH (test code = HPF 9140628557) HYAL CAST (test code = See_Comment H [Aut omated message] 4484529350) The system ic h generated this result transmitted ref erence range: <=2 LPF. The reference range was not used to int erpret this result as normal/abnormal . Lab Interpretation (test Abnormal code = 26644-1) [facility] CenterProthrombin Time (PT) / [id number] 18:21:00 Test Item Value Reference Range Interpretation [...] tions. Lab Interpretation (test Normal code = 65820-8) [facility] CenteraPTT2020-06-10 18:20:00 Test Item Value Reference Range Interpretation Comments APTT Patient (test See_Comment L [Automat ed code = 3173-2) message] The system which generated this result transmitted reference range : 23 - 38 Seconds . The reference range was not used to interpr et this result as normal/abnormal . KIM (test code = KIM) The [facility] patient population mean normal value for aPTT is 30 seconds. Lab Interpretation Abnormal (test code = 81217-9) [facility] CenterBasi Metabolic Panel (NA, K, CL, CO2, GLUCOSE, BUN, CREATININE, CA)2020-01-03 18:17:00 Test Item Value Reference Range Interpretation Comments NA (test code = 138 mmol/L 135-145 2432312925) K (test code = 3.9 mmol/L 3.5-5 9143047402) CL (test code = 110 mmol/L 98-108 H 1470517134) CO2 TOTAL (test code = 24 mmol/L 23-31 9677884941) AGAP (test code = 2-16 2449866049) BUN (test code = 12 mg/dL 7-23 8287764276) GLUCOSE (test code = 111 mg/dL 70-110 H 4199115650) CREATININE (test code = 0.72 mg/dL 0.5-1.04 0405292062) CALCIUM (test code = 8.9 mg/dL 8.6-10.6 7470937033) eGFR Calculation mL/min/1.73m2 (Non-) (test code = 6964100285) eGFR Calculation mL/min/1.73m2 () (test code = 9915070843) KIM (test code = KIM) Association of [...] tests). Lab Interpretation Abnormal (test code = 00912-1) [facility] CenterHepatic Function Panel (ALB, T.PRO, BILI T, BU/BC, ALT, AST, ALK PHOS)2020-01-03 18:17:00 Test Item Value Reference Range Interpretation Comments TOTAL BILI (test code = 2729885566) 1.1 mg/dL 0.1-1.1 BILI UNCON (test code = 3614014697) 1.2 mg/dL 0.1-1.1 H BILI CONJ (test code = 7191506455) 0.0 mg/dL 0-0.3 T PROTEIN (test code = 8194790333) 6.7 g/dL 6.3-8.2 ALBUMIN (test code = 4518077648) 3.9 g/dL 3.5-5 ALK PHOS (test code = 1647108308) 88 U/L 34-122 ALTv (test code = 1742-6) 26 U/L 5-35 AST(SGOT) (test code = 8425162695) 28 U/L 13-40 Lab Interpretation (test code = Abnormal 55112-1) [facility] CenterLipase [id number] 18:17:00 Test Item Value Reference Range Interpretation Comments LIPASE (test code = 0468051435) 166 U/L 0-220 Lab Interpretation (test code = Normal 06035-5) [facility] CenterCB WITH [id number] 18:07:00 Test Item Value Reference Range Interpretation Comments WBC (test code = See_Comment H [Automated 7490-2) message] The sy stem which generated this result transmitted reference range : 4.30 - 11.10 10*3/?L. The reference range was not used to interpret this result as normal/abnormal . RBC (test code = See_Comment [Automated 238-8) message] The sy stem which generated this [...] RDW-SD (test code = 46.4 fL 39-49.9 73975-7) RDW-CV (test code = 13.7 % 12-15.5 788-0) PLT (test code = See_Comment [Automated 777-3) message] The sy stem which generated this result transmitted reference range : 166 - 358 10*3/ ?L. The reference r lucas was not used to interpret this result as normal/abnormal . MPV (test code = 9.9 fL 9.5-12.9 40872-2) NRBC/100 WBC (test See_Comment [Automat ed code = 8210410089) message] The system which generated this result transmitted reference range : 0.0 - 10.0 /100 WBCs. The refer ence range was not u sed to interpret th is result as normal/abnormal . NRBC x10^3 (test code <0.01 See_Comment [Auto mated = 8297202813) message] The s ystem which generated this result transmitted reference range : 10*3/?L. The reference range was not used to interpret this result as normal/abnormal . GRAN MAT (NEUT) % 83.1 % (test code = 770-8) IMM GRAN % (test code 0.70 % = 3874581326) LYMPH % (test code = 11.2 % 736-9) MONO % (test code = 3.6 % 5905-5) EOS % (test code = 1.1 % 713-8) BASO % (test code = 0.3 % 706-2) GRAN MAT x10^3(ANC) 9.43 10*3/uL 1.88-7.09 H (test code = 3957625134) IMM GRAN x10^3 (test 0.08 10*3/uL 0-0.06 H code = 4791264041) LYMPH x10^3 (test code 1.27 10*3/uL 1.32-3.29 L = 731-0) MONO x10^3 (test code 0.41 10*3/uL 0.33-0.92 = 742-7) EOS x10^3 (test code = 0.12 10*3/uL 0.03-0.39 711-2) BASO x10^3 (test code 0.03 10*3/uL 0.01-0.07 = 704-7) Lab Interpretation Abnormal (test code = 27105-6) [facility] CenterLactic Acid Whole [id number] 17:34:00 Test Item Value Reference Range Interpretation Comments LACTIC ACID (test code = 1.77 mmol/L 0.3-2.6 4489866742) Lab Interpretation (test code = Normal 88764-2) [facility] (NA, K, CL, CO2, GLUCOSE, BUN, CREATININE, CA)2019-12-06 08:20:00 Test Item Value Reference Range Interpretation Comments NA (test code = 132 mmol/L 135-145 L 3779080397) K (test code = 4.1 mmol/L 3.5-5 1839495561) CL (test code = 102 mmol/L 98-108 4825364954) CO2 TOTAL (test code = 25 mmol/L 23-31 0439793195) AGAP (test code = 2-16 5473894239) BUN (test code = 15 mg/dL 7-23 3175864718) GLUCOSE (test code = 85 mg/dL 70-110 5266095108) CREATININE (test code = 0.84 mg/dL 0.5-1.04 7877053679) CALCIUM (test code = 8.6 mg/dL 8.6-10.6 0548742531) eGFR Calculation mL/min/1.73m2 (Non-) (test code = 4049985977) eGFR Calculation mL/min/1.73m2 () (test code = 1980839191) KIM (test code = KIM) Association of [...] tests). Lab Interpretation Abnormal (test code = 93742-8) [facility] WITH [id number] 07:56:00 Test Item Value Reference Range Interpretation Comments WBC (test code = See_Comment H [Automated 7429-2) message] The system which generated this result transmit leann reference range : 4.30 - 11.10 10*3/?L. The reference range was not used to interpret this result as normal/abnormal . RBC (test code = See_Comment [Automated 532-8) message] The system which generated this result [...] RDW-SD (test code = 47.1 fL 39-49.9 91007-3) RDW-CV (test code = 13.5 % 12-15.5 788-0) PLT (test code = See_Comment [Automated 777-3) message] The system which generated this result transmit leann reference range : 166 - 358 10*3/ ?L. The reference range was not u sed to interpret th is result as normal/abnormal . MPV (test code = 9.8 fL 9.5-12.9 75541-5) NRBC/100 WBC (test See_Comment [Automat ed code = 2374148633) message] The system which generated this result transmit leann reference range : 0.0 - 10.0 /100 WBCs. The reference range was not used to interpret this result as normal/abnormal . NRBC x10^3 (test code <0.01 See_Comment [Auto mated = 0880904848) message] The system which generated this result transmit leann reference range : 10*3/?L. The reference range was not used to interpret this result as normal/abnormal . GRAN MAT (NEUT) % 77.4 % (test code = 770-8) IMM GRAN % (test code 0.60 % = 2895183283) LYMPH % (test code = 15.0 % 736-9) MONO % (test code = 6.7 % 5905-5) EOS % (test code = 0.2 % 713-8) BASO % (test code = 0.1 % 706-2) GRAN MAT x10^3(ANC) 12.65 10*3/uL 1.88-7.09 H (test code = 7328405472) IMM GRAN x10^3 (test 0.10 10*3/uL 0-0.06 H code = 1527239263) LYMPH x10^3 (test code 2.45 10*3/uL 1.32-3.29 = 731-0) MONO x10^3 (test code 1.10 10*3/uL 0.33-0.92 H = 742-7) EOS x10^3 (test code = 0.04 10*3/uL 0.03-0.39 711-2) BASO x10^3 (test code <0.03 0.01-0.07 = 704-7) Lab Interpretation Abnormal (test code = 53702-8) [facility] acute hospital Barium Swallow Meqaxbmef1978-36-10 23:38:49 Postsurgical changes status post hiatal hernia [...] contrast extravasation. Preliminary Report Dictated by Resident: Ariseto Valencia ?MD Devika., have reviewedthis study and agree with theabove report.BARIUM SWALLOW HISTORY: 64-year-old female status post hiatal hernia repair for evaluationof epigastric stricture or contrast leakage TECHNIQUE AND FINDINGS: Limited evaluation because of patient's inability to stand. [employer] images demonstrate surgical changes status post hiatal [...] ofwater. No evidence of contrast material extravasation. [facility], Radiant Results Inft User - 12/05/2019 6:39 PM CDTBARIUM SWALLOW HISTORY: 64-year-old female status post hiatal hernia repair for evaluationof epigastric stricture or contrast leakage TECHNIQUE AND FINDINGS: Limited evaluation because of patient's inability to stand.[employer] images demonstrate surgical changes status post hiatal [...] reviewed this study and agree with theabove report.[facility] WITH [id number] 17:22:00 Test Item Value Reference Range Interpretation Comments WBC (test code = See_Comment H [Automated 6396-2) message] The system which generated this result transmit leann reference range : 4.30 - 11.10 10*3/?L. The reference range was not used to interpret this result as normal/abnormal . RBC (test code = See_Comment [Automated 279-8) message] The system which generated this result [...] RDW-SD (test code = 44.9 fL 39-49.9 90391-8) RDW-CV (test code = 13.2 % 12-15.5 788-0) PLT (test code = See_Comment [Automated 777-3) message] The system which generated this result transmit leann reference range : 166 - 358 10*3/ ?L. The reference range was not u sed to interpret th is result as normal/abnormal . MPV (test code = 9.7 fL 9.5-12.9 82815-2) NRBC/100 WBC (test See_Comment [Automat ed code = 2930243340) message] The system which generated this result transmit leann reference range : 0.0 - 10.0 /100 WBCs. The reference range was not used to interpret this result as normal/abnormal . NRBC x10^3 (test code <0.01 See_Comment [Auto mated = 9127011285) message] The system which generated this result transmit leann reference range : 10*3/?L. The reference range was not used to interpret this result as normal/abnormal . GRAN MAT (NEUT) % 93.0 % (test code = 770-8) IMM GRAN % (test code 1.30 % = 1117497414) LYMPH % (test code = 3.2 % 736-9) MONO % (test code = 2.4 % 5905-5) EOS % (test code = 0.0 % 713-8) BASO % (test code = 0.1 % 706-2) GRAN MAT x10^3(ANC) 19.11 10*3/uL 1.88-7.09 H (test code = 4211438937) IMM GRAN x10^3 (test 0.27 10*3/uL 0-0.06 H code = 2995216777) LYMPH x10^3 (test code 0.65 10*3/uL 1.32-3.29 L = 731-0) MONO x10^3 (test code 0.49 10*3/uL 0.33-0.92 = 742-7) EOS x10^3 (test code = <0.03 0.03-0.39 L 711-2) BASO x10^3 (test code 0.03 10*3/uL 0.01-0.07 = 704-7) Lab Interpretation Abnormal (test code = 91899-5) [facility] Metabolic Panel (NA, K, CL, CO2, GLUCOSE, BUN, CREATININE, CA)2019-12-05 16:11:00 Test Item Value Reference Range Interpretation Comments NA (test code = 135 mmol/L 135-145 9154706942) K (test code = 5.3 mmol/L 3.5-5 H 0678674091) CL (test code = 105 mmol/L 98-108 9069975028) CO2 TOTAL (test code = 24 mmol/L 23-31 9723207057) AGAP (test code = 2-16 6594839476) BUN (test code = 23 mg/dL 7-23 3662365702) GLUCOSE (test code = 204 mg/dL 70-110 H 8732902374) CREATININE (test code = 0.74 mg/dL 0.5-1.04 4828651407) CALCIUM (test code = 8.5 mg/dL 8.6-10.6 L 0989081706) eGFR Calculation mL/min/1.73m2 (Non-) (test code = 1328951416) eGFR Calculation mL/min/1.73m2 () (test code = 8318569742) KIM (test code = KIM) Association of [...] tests). Lab Interpretation Abnormal (test code = 49813-3) [facility] 16:11[facility]00 Test Item Value Reference Range Interpretation Comments MAGNESIUM (test code = 3381985064) 2.0 mg/dL 1.7-2.4 Lab Interpretation (test code = Normal 75329-0) [facility] CenterPhosphorus2020-05-12 16:11:00 Test Item Value Reference Range Interpretation Comments PHOSPHORUS (test code = 8792555391) 3.2 mg/dL 2.5-5 Lab Interpretation (test code = Normal 92929-5) [facility] CenterTISSUE [id number] 19:32:00Surgical Pathology Report Case: [id number] Authorizing Provider: Leanna Perez MD Collected: 03/06/2019 0850 Ordering Location: [address] Received: 03/06/2019 1421 Service Pathologist: Radha [...] MALIGNANCY NOTED Signing Pathologist Direct Phone Line: [phone] signed by Radha Fuentes MD on 03/07/2019 at 7:32 [id number] X 2; [id number] and postop diagnosis: anemia A. Duodenum random [...] which are submitted in toto in B1. CG/plPERFORMEDThe interpretation of this case included the use of immunohistochemistry or special stains.WARTHIN-STARRYControl Slides Examined: In-house known positive controls were evaluated along with thetest tissue. These control slides run alongside of the patients sample show appropriate staining. Internal positive and negative controls when available are evaluated Immunohistochemistry technical testing was performed at [facility], Pathology Laboratory where it was developed [...] perform high complexity clinical laboratory testing.COMPREHENSIVE METABOLIC [id number] 07:33:00 Test Item Value Reference Range Interpretation [...] GFR I S NOT APPLICABLE FOR DIALYSIS SIN TS. PROTHROMBIN TIME/[id number] 07:23:00 Test Item Value Reference Range Interpretation [...] mechanical heart valves.CBC W/PLT COUNT & AUTO [id number] 07:16:00 Test Item Value Reference Range Interpretation [...] (BEAKER) (test code = 2801) HEMOGLOBIN AND [id number] 22:37:00 Test Item Value Reference Range Interpretation Comments HEMOGLOBIN (BEAKER) (test code = 7.5 GM/DL 11.2-15.7 L 410) HEMATOCRIT (BEAKER) (test code = 26.8 % 34.1-44.9 L 411) HEMOGLOBIN AND [id number] 10:01:00 Test Item Value Reference Range Interpretation Comments HEMOGLOBIN (BEAKER) (test code = 8.1 GM/DL 11.2-15.7 L 410) HEMATOCRIT (BEAKER) (test code = 28.9 % 34.1-44.9 L 411) VITAMIN D, 65-[id number] 09:22:00 Test Item Value Reference Range Interpretation Comments VITAMIN D 25-OH (BEAKER) (test code 5.7 ng/mL 6.6-49.9 L = 2764) Effective 05/05/2017: Reference Range ChangeNew: 6.6-49.9 ng/mL Previous: 13.0- 47.8 ng/mLRecommendedVitamin D Target Range: 30.0-40.0 ng/mLCOMPREHENSIVE METABOLIC [id number] 08:49:00 Test Item Value Reference Range Interpretation [...] (test code = 2590) TSH/FREE T4 IF [id number] 06:46:00 Test Item Value Reference Range Interpretation Comments THYROID STIMULATING HORMONE 0.90 uIU/mL 0.35-4.94 (BEAKER) (test code = 772) VITAMIN B12 AND [id number] 06:46:00 Test Item Value Reference Range Interpretation [...] (BEAKER) (test code = 413) HEMOGLOBIN AND [id number] 23:36:00 Test Item Value Reference Range Interpretation Comments HEMOGLOBIN (BEAKER) (test code = 6.0 GM/DL 11.2-15.7 LL 410) HEMATOCRIT (BEAKER) (test code = 22.6 % 34.1-44.9 L 411) TISSUE [id number] 15:28:00Surgical Pathology Report Case: [id number] Authorizing Provider: Criss Monroe MD Collected: 01/18/2019 0930 Ordering Location: [address] Received: 01/18/2019 1359 Service Pathologist: Sola Kingston MD Specimen: Polyp, Colon - Sigmoid COLON, SIGMOID POLYP, POLYPECTOMY- TUBULAR ADENOMA- HIGH GRADE DYSPLASIA NOT SEEN Signing Pathologist Direct Phone Line: [phone] signed by Sola Kingston MD on 01/19/2019 at 3:28 [id number] and postoperative diagnosis: Other iron deficiency anemiaReceived in one part. Polyp, colon-sigmoidReceived in formalin labeled with the patient's name, accession number and "polyp, colon-sigmoid" is a 0.4-cm pino polyp which is submitted in toto in A1. CG/bc Performed.FL, UGI, WITHOUT [id number] 13:45:00Reason for exam:->Suggestion of large hiatal hernia [...] Orellana Verified Date/Time: 01/19/2019 13:45:41 Reading Location: [address] OrthoConsult Reading Room [facility] METABOLIC [id number] 08:32:00 Test Item Value Reference Range Interpretation [...] (test code = 413) VITAMIN B12 AND [id number] 05:50:00 Test Item Value Reference Range Interpretation Comments VITAMIN B12 (BEAKER) (test code = 323 pg/mL 213-816 774) FOLATE (BEAKER) (test code = 362) 11.0 ng/mL >=7.0 BASIC METABOLIC [id number] 05:46:00 Test Item Value Reference Range Interpretation [...] (BEAKER) (test code = 413) BASIC METABOLIC [id number] 06:19:00 Test Item Value Reference Range Interpretation [...] Specimen slightly ictericCBC W/PLT COUNT & AUTO [id number] 05:36:00 Test Item Value Reference Range Interpretation [...] = 2801) CBC W/PLT COUNT & AUTO [id number] 22:19:00 Test Item Value Reference Range Interpretation [...] = 2801) CBC W/PLT COUNT & AUTO [id number] 13:07:00 Test Item Value Reference Range Interpretation [...] PERCENT (BEAKER) (test code = 2801) PROTHROMBIN TIME/[id number] 09:14:00 Test Item Value Reference Range Interpretation [...] PATIEN TS. CBC W/PLT COUNT & AUTO [id number] 07:07:00 Test Item Value Reference Range Interpretation [...] (BEAKER) (test code = 2801) BASIC METABOLIC [id number] 01:47:00 Test Item Value Reference Range Interpretation [...] PATIEN TS. CBC W/PLT COUNT & AUTO [id number] 01:42:00 Test Item Value Reference Range Interpretation [...] (BEAKER) (test code = 2801) Reference Lab [id number] 14:16:00 Test Item Value Reference Range Interpretation Comments Reference Lab Testing Negative Negative Perfor med at: BN - (test code = HELIAG) [facility] [place], [place] [id number] Director: Dioni Jenkins MD, [facility] ne: [phone] [id number] SURGICAL PATHOLOGY, LEVEL [id number] 13:33:[address] [address] Laboratory Printed: 01/10/18 812[facility] DAEMPathology Page: 1 Patient: CORNELIO RUFFIN Birthdate: 1955 Age/Sex: 62/F Spec#: [id number]: Tyrell Patino MD Specimen Date: 01/07/18 Received Date: 01/07/18 Specimen: POLYP, COLON CLINICAL DIAGNOSIS anemia PATHOLOGIC DIAGNOSIS Cecal polyp, polypectomy: - Tubular adenoma. Comment: There is no high grade dysplasia or malignancy present. Pathologist:Crystal Brumfield MD Entered by:01/10/18 - 1256 LAB.YGP PROCEDURES: 32229 GROSS DESCRIPTIONA. POLYP, COLON CECUM The specimen is received [...] LAB.YGP Patient: CORNELIO RUFFIN Re01/05/18Loc: T4-A MR#: [id number] CONTINUED ON NEXT PAGE Dis: 01/08/18ta: DIS IN [facility] [address] [facility] [place] [address] Laboratory Printed: 01/10/18 2554 [facility] DAEMPathology Page: 2 Patient: CORNELIO RUFFIN [id number] (Continued) GROSS DESCRIPTION (Continued) MICROSCOPIC DESCRIPTION A microscopic examination was performed to arrive at the diagnostic conclusion reported. Signed (Electronically Signed) Crystal Brumfield MD 01/10/18 Patient: CORNELIO RUFFIN Re01/05/18Loc: T4-A MR#: [id number] END OF REPORT Dis: 01/08/18ta: DIS [id number] 11:30:00 Test Item Value Reference Range Interpretation [...] 8.9 mg/dL 7.8-10.44 N code = CA) [id number] 06:56:00 Test Item Value Reference Range Interpretation Comments Chemistry (test code = MG) 1.8 mg/dL 1.6-2.6 N Comment Add to AM labsComment Add to AM wzmzRvhommkhz4521-20-98 06:56:00 Test Item Value Reference Range Interpretation [...] heart disease: Desirable: Less than 130 mg/dL Luz meza High Risk: 130 - 159 mg/dL High Risk : Greater than 16 0 mg/dL Chemistry (test code = 4.3 Less than 4.5 Adul t levels in terms CRISK) of risk for Cor onary Heart Disease: Dangerous level : Greater than 8. 3 High: 5.6 - 8.3 [place] ge: 3.7 - 5.[address] rage: 2.5 - 3.7 Prote ction probable: Less than 2.5 Comment Add to AM labsComment Add to AM [id number] 04:30:00 Test Item Value Reference Range Interpretation [...] code = BASO#) 0.1 thou/uL 0.0-0.2 N [id number] 04:24:00 Test Item Value Reference Range Interpretation [...] 8.9 mg/dL 7.8-10.44 N code = CA) Phmvtdnpte7664-47-07 15:26:00 Test Item Value Reference Range Interpretation Comments Hematology (test code = HGBT) 8.8 g/dL 12.0-16.0 L Hematology (test code = HCTT) 29.5 % 36.0-47.0 L [address] SURGICAL PATHOLOGY, LEVEL [id number] 14:22:[address] [address] Laboratory Printed: 01/07/[address] [place] [address] DAEMPathology Page: 1 Patient: CORNELIO RUFFIN Birthdate: 1955 Age/Sex: 62/F Spec#: [id number] [facility] [address]: Tyrell Patino MD Specimen Date: [...] MD Entered by:01/07/18 - 1117 LAB.YGP PROCEDURES: 13168/2, 66576/2, 50578 Patient: CORNELIO RUFFIN Re01/05/18Loc: T4-A MR#: [id number] CONTINUED ON NEXT PAGE Dis: Sta: ADM IN [facility] [address] [place] [address] Laboratory Printed: 01/07/[address] [place] [address] Page: 2 Patient: CORNELIO RUFFIN [id number] (Continued) GROSS DESCRIPTION A.GASTRIC BIOPSY The specimen [...] by: Tina Kimball Entered by: 01/06/18 - 7209 [facility].YGP MICROSCOPIC DESCRIPTION A microscopic examination was performed to arrive at the diagnostic conclusion reported. Signed (Electronically Signed) Mike Green MD 01/07/18 Patient: CORNELIO RUFFIN Re01/05/18Loc: T4-A MR#: [id number] END OF REPORT Dis: Sta: ADM INChemistry - Benji [id number] 13:00:00 Test Item Value Reference Range Interpretation [...] hod: Enzyme Linked Fluorescent Immunoassay (Benji)Reference s: Aircrmdia AB Benji Package Inserts - Directions forU seSeptember,November 12, VCE ic. Chemistry - Benji [id number] 13:00:00 Test Item Value Reference Range Interpretation Comments Chemistry - Benji 0.6 U/mL <4 Negative Testing (test code = M2T) Chemistry - Benji Less th an 4.0 U/mL Testing (test code = Negativ e 4.0 - 6.0 = SNEYVWX569) U/mL = Equivoc al Greater than 6. [...] Phadia AB Benji Package Inserts - Directions [facility], September,November 12, VCE ic. Chemistry - Benji 0.6 U/mL <4 Negative Testing (test code = M2T) Chemistry - Benji Less th an 4.0 U/mL Testing (test code = Negativ e 4.0 - 6.0 = NXDYHUL125) U/mL = Equivoc al Greater than 6. [...] Phadia AB Benji Package Inserts - Directions [facility], September,November 12, VCE ic. Chemistry - Benji [id number] 13:00:00 Test Item Value Reference Range Interpretation Comments Chemistry - Benji CENP, Chela -1, RNP70, Testing (test code = Scl-70, [place], ELIAANAINTERP) SSA/Ro, SSB/L a IgGAntibodies: Less than 7.0 Benji U /mL = Negative 7.0 - 10.0 Benji U/mL = Equivocal Great er than 10.0 Benji U/mL = PDATMSBGR8HVG IgG: Less than 5.0 Benji U/mL = Negative 5.0 - 10.0 Benji U/mL = Equivocal Great er than 10.0 Benji U/mL = POSITIVE Chemistry - Benji [id number] 12:38:00 Test Item Value Reference Range Interpretation Comments Chemistry - Benji Testing (test 0.4 EliAU/mL <7 Negative code = CELTTGIGA) Comment add onChemistry - Benji [id number] 12:38:00 Test Item Value Reference Range Interpretation Comments Chemistry - Benji Testing (test 0.6 EliAU/mL <7 Negative code = CELTTGIGG) Comment add onChemistry - Benji [id number] 12:38:00 Test Item Value Reference Range Interpretation Comments Chemistry - Benji Less th an 7.0 Benji Testing (test code = U/mL = Negative 7.0 TNBSLLO664) - 10.0 Benji U/m L = Equivocal Great er than 10.0 Benji U/mL = POSITIVE Comment add onChemistry - [id number] 12:33:00 Test Item Value Reference Range Interpretation Comments Chemistry - Specials Non-Reactive NonReactive The ames el screens (test code = HIVT) for HIV-1 p24 Antigen HIV-1/HIV-2Anti body. Ayvqkelpil5513-03-04 10:27:00 Test Item Value Reference Range Interpretation Comments Immunology (test code = SYPHABT) Nonreactive Nonreactive [id number] 10:25:00 Test Item Value Reference Range Interpretation [...] Hematology (test code = MODERATE=15-30 cells 0-5/hpf WA) (100X) Hematology (test code = MODERATE=16-30 cells 0-5/hpf HYPO) (100X) Hematology (test code = SLIGHT = 2-3 cells 0-2/hpf POLY) (100X) Hematology (test code = MODERATE= 6-15 cells 0-1/hpf OV) (100X) Hematology (test code = Appears Adequate PCOMMENT) [id number] 10:07:00 Test Item Value Reference Range Interpretation [...] (3) (test N code = OCCSTS1) Comment btbffHkihsguhza1497-09-91 16:59:00 Test Item Value Reference Range Interpretation [...] MPV) 10.9 fL 7.4-10.4 H Chemistry - [id number] 13:59:00 Test Item Value Reference Range Interpretation [...] is considered immu ne to HBV infection. [id number] 12:26:00 Test Item Value Reference Range Interpretation [...] = MPV) 5.3 fL 7.4-10.4 L Type [id number] 11:29:00 Test Item Value Reference Range Interpretation Comments Blood Type Rh (test code = BT) O POSITIVE Antibody Screen (test code = ABSC) NEGATIVE Received Blood Or Been w/in Past 90 Days? UNKNOWNReceived Blood Or Been w/in Past 90 Days? NOScheduled Surgery Date: NO SURGERYIs Surgery Date Greater than 7 days from now? NOPacked Cells - Beezeqpsckyc4111-28-26 11:29:00 [id number] [facility] TFUSE 01/06/18 [id number] 05:27:00 Test Item Value Reference Range Interpretation [...] code 149 U/L 8-55 H = ALT) Uluowlamlg2656-51-05 05:18:00 Test Item Value Reference Range Interpretation [...] BASO#) 0.0 thou/uL 0.0-0.2 N Chemistry - Huyhtdei4815-41-02 00:59:00 Test Item Value Reference Range Interpretation Comments Chemistry - Specials (test Non-Reactive NonReactive code = THEPAIGM) Chemistry - Specials (test Non-Reactive S/CO NonReactive code = THBSAG) Chemistry - Specials (test Non-Reactive NonReactive code = INTHBCM) Chemistry - Specials (test Non-Reactive NonReactive code = INTHEPC) Chemistry - BNP, HgbA1c, [id number] 19:45:00 Test Item Value Reference Range Interpretation Comments Chemistry - BNP, HgbA1c, PTHi 100.4 pg/mL 0-100 H (test code = BNP) Comment add [id number] 19:38:00 Test Item Value Reference Range Interpretation Comments Chemistry (test 1.5 ng/mL 0-6.6 N code = CKMBM-T) Chemistry (test Less than < 0.028 code = TROPI-T) 0.010 ng/mL Reference Ra nge 0.00 - 0.028 ng /mL Negative 0.029 - 0.29 ng/mL Indetermi willie Greater or Equa l to 0.3 ng/mL Stron gly suggests [place] Comment add onChemistry - [id number] 18:21:00 Test Item Value Reference Range Interpretation Comments Chemistry - Specials (test code = 24.27 ng/mL 10-291 N LINDSAY) [id number] 18:14:00 Test Item Value Reference Range Interpretation [...] Hematology (test code = MODERATE=15-30 cells 0-5/hpf WA) (100X) Hematology (test code = SLIGHT = [...] Hematology (test code = Appears Adequate PCOMMENT) Hwkmyjgtv7385-06-02 17:59:00 Test Item Value Reference Range Interpretation [...] code 220 U/L 8-55 H = ALT) Xlwjjwblp8570-08-16 17:59:00 Test Item Value Reference Range Interpretation Comments Chemistry (test code = IRON) 15 ug/dL 50-170 L [id number] 17:59:00 Test Item Value Reference Range Interpretation Comments Chemistry (test code = TIBC) 386 mcg/dL 265-497 N Tmxqojmvcks2651-01-12 17:50:00 Test Item Value Reference Range Interpretation [...] NONEMedical Necessity SUSPECT COAGULOPATHYAnticoagulant? NONEMedical Necessity: SUSP CZQIBiviqfsvlju1302-60-34 17:50:00 Test Item Value Reference Range Interpretation Comments Coagulation (test code = PTT) 23.4 SEC 22.9-36.1 N Anticoagulant? NONEMedical Necessity SUSPECT COAGULOPATHYAnticoagulant? NONEMedical Necessity: SUSP COAG
[2022-08-28] MEDS ORDERED: ACETAMINOPHEN 325 MG TABLET ONE (18:10)
[2022-08-28] MEDS ORDERED: HYDROCODONE/APAP 5/325 MG TAB ONE (18:11)
--- NOTE | 2022-08-28 18:20 | RAD REPORT ---
EXAM DESCRIPTION: US - UPPER EXTREMITY VENOUS UNILATE - 08/28/2022 6:09 pm CLINICAL HISTORY: Right upper extremity pain COMPARISON: None. FINDINGS: The right internal jugular, subclavian, brachial, axillary, cephalic, basilic, radial and ulnar veins demonstrate phasic signal. The veins are generally compressible. Doppler demonstrates good flow IMPRESSION: No evidence of thrombus involving the right upper extremity
--- NOTE | 2022-08-28 18:49 | RAD REPORT ---
EXAM DESCRIPTION: RAD - Wrist Right 3 View - 08/28/2022 5:39 pm CLINICAL HISTORY: Right wrist pain FINDINGS: Since the July 22, 2022 exam there has been development of callus formation about the distal radial fracture site. Impaction and moderate displacement of fracture fragments persist. Some angulation at the fracture si te is also present.
--- NOTE | 2022-08-28 18:50 | RAD REPORT ---
EXAM DESCRIPTION: RAD - Shoulder Right 2 View - 08/28/2022 5:39 pm CLINICAL HISTORY: Right shoulder pain FINDINGS: No acute fracture or dislocation is seen. Humeral head is high riding which may indicate a chronic rotator cuff tear. Multiple bony/calcific densities surrounding the proximal humerus and shoulder are unchanged. Bones a re osteoporotic
--- NOTE | 2022-08-28 19:26 | ER ---
Nurse's Notes [facility] Name: Irma Cain Age: 67 yrs Sex: Female : 1955 Arrival Date: 08/28/2022 Time: 16:41 Bed 17 Private MD: CUBA CLEARY Diagnosis: Pain in right shoulder;Pain in right wrist Presentation: 08/28 17:01 Chief complaint: Patient states: I broke my arm on 07/22. It was placed in a cast here ko1 but it went from hurting to throbbing. Dr Cody does not take my insurance. Coronavirus screen: At this time, the client does not indicate any symptoms associated with coronavirus-19. Ebola Screen: No symptoms or risks identified at this time. Initial Sepsis Screen: Does the patient meet any 2 criteria? No. Patient's initial sepsis screen is negative. Does the patient have a suspected source of infection? No. Patient's initial sepsis screen is negative. Risk Assessment: Do you want to hurt yourself or someone else? Patient reports no desire to harm self or others. Onset of symptoms was August 28, 2022. 17:01 Method Of Arrival: Ambulatory ko1 17:01 Acuity: FELA 4 ko1 Triage Assessment: 17:05 General: Appears in no apparent distress. comfortable, Behavior is calm, cooperative, ko1 appropriate for age. Pain: Complains of pain in right arm. Historical: - Allergies: 17:05 Aspirin; ko1 17:05 Neosporin (fng-jyh-uwofy); ko1 17:05 NSAIDS; ko1 17:05 Talwin; ko1 - PMHx: 17:05 Asthma; Hypertensive disorder; UNMEDICATED; Pneumonia; ko1 - Immunization history:: Adult Immunizations up to date. - Social history:: Smoking status: Patient denies any tobacco usage or history of. Screenin:56 [facility] ED Fall Risk Assessment (Adult) Score/Fall Risk Level 0 - 2 = Low Risk. Abuse eh3 screen: Denies threats or abuse. Denies injuries from another. Nutritional screening: No deficits noted. Tuberculosis screening: No symptoms or risk factors identified. Vital Signs: 17:11 BP 186 / 83; Pulse 92; Resp 18; Temp 98; Pulse Ox 96% ; ko1 ED Course: 16:41 Patient arrived in ED. am2 16:42 CUBA CLEARY is Private Physician. am2 17:04 Moi Rivera PA is PHCP. cp 17:04 Oswaldo Hansen MD is Attending Physician. cp 17:05 Triage completed. ko1 17:06 Arm band placed on left wrist. ko1 17:40 Shoulder Right 2 View In Process Unspecified. EDMS 17:41 XRAY Wrist RIGHT 3 view In Process Unspecified. EDMS 18:11 UPPER EXTREMITY VENOUS UNILATE In Process Unspecified. EDMS 19:24 Cristian Rawls MD is Referral Physician. cp 20:55 No provider procedures requiring assistance completed. Patient did not have IV access eh3 during this emergency room visit. 20:56 Patient has correct armband on for positive identification. eh3 Administered Medications: 18:11 Drug: Tylenol 650 mg Route: PO; ld1 19:30 Follow up: Response: Pain is decreased eh3 18:11 Drug: HYDROcodone-acetaminophen 5 mg-325 mg 1 tabs Route: PO; ld1 19:30 Follow up: Response: Pain is decreased eh3 Medication: 20:55 VIS not applicable for this client. eh3 Outcome: 19:25 Discharge ordered by MD. cp 20:55 Discharged to home ambulatory. eh3 20:55 Condition: stable 20:55 Discharge instructions given to patient, Instructed on discharge instructions, follow up and referral plans. Demonstrated understanding of instructions, follow-up care. 20:56 Patient left the ED. eh3 Signatures: Dispatcher [employer] EDMS Moi Rivera PA PA cp Anna Givens am2 Loraine Galvan RN RN ld1 Yudelka King RN RN 3 Sanjuanita Friedman RN RN ko1 Corrections: (The following items were deleted from the chart) 17:06 17:01 Chief complaint: Patient states: I broke my arm on 08/22. It was placed in a cast ko1 here but it went from hurting to throbbing. Dr Cody does not take my insurance. ko1
--- NOTE | 2022-08-28 19:26 | EDPHYS ---
Physician Documentation [facility] Name: Irma Cain Age: 67 yrs Sex: Female : 1955 Arrival Date: 08/28/2022 Time: 16:41 Bed 17 Private MD: CUBA CLEARY ED Physician Oswaldo Hansen HPI: 08/28 17:15 This 67 yrs old Female presents to ER via Ambulatory with complaints of Arm Pain - cp right. 17:15 The patient or guardian complains of pain. cp 17:15 The complaints affect the right forearm and right shoulder. Context: Patient reports cp sustaining right wrist fracture after fall 07-22-2022. Patient reports she was seen in this ED and splint was applied. Patient reports she has not had f/u with ortho since injury due to DR Cody not taking her insurance. Patient reports she has not contacted any other orthopedist office. Patient reports she is also having right shoulder pain and has history of rotator cuff injury. Historical: - Allergies: 17:05 Aspirin; ko1 17:05 Neosporin ([id number]); ko1 17:05 NSAIDS; ko1 17:05 [place]; ko1 - PMHx: 17:05 Asthma; Hypertensive disorder; UNMEDICATED; Pneumonia; ko1 - Immunization history:: Adult Immunizations up to date. - Social history:: Smoking status: Patient denies any tobacco usage or history of. ROS: 17:20 Constitutional: Negative for body aches, chills, fever, poor PO intake. cp 17:20 Eyes: Negative for injury, pain, redness, and discharge. cp 17:20 Neck: Negative for pain with movement, pain at rest, stiffness. 17:20 Cardiovascular: Negative for chest pain, edema, palpitations. 17:20 Respiratory: Negative for cough, shortness of breath, wheezing. 17:20 Abdomen/GI: Negative for abdominal pain, nausea, vomiting, and diarrhea. 17:20 Back: Negative for pain at rest, pain with movement. 17:20 MS/extremity: Positive for pain, swelling, tenderness, of the right shoulder and right forearm, right wrist deformity. 17:20 All other systems are negative. Exam: 17:25 Constitutional: The patient appears in no acute distress, alert, awake, non-toxic, well cp developed, well nourished, old splint to right forearm in place and removed 17:25 Head/Face: Normocephalic, atraumatic. cp 17:25 Chest/axilla: Inspection: normal. 17:25 Cardiovascular: Rate: normal, Rhythm: regular, Pulses: Pulses are 2+ in right radial artery. 17:25 Respiratory: the patient does not display signs of respiratory distress, Respirations: normal, no use of accessory muscles, no retractions, labored breathing, is not present, Breath sounds: are clear throughout, no decreased breath sounds, no stridor, no wheezing. 17:25 Musculoskeletal/extremity: Extremities: grossly normal except: noted in the right wrist: appears deformed with AROM limited, mild swelling and tender to palpation, noted in the right shoulder: tenderness, pain with AROM, no evidence of decreased ROM, deformity, the right hand and right arm Sensation intact. 17:25 Neuro: Orientation: to person, place \T\ time. Mentation: is normal. Vital Signs: 17:11 BP 186 / 83; Pulse 92; Resp 18; Temp 98; Pulse Ox 96% ; ko1 Procedures: 20:00 Splinting: Splint applied to right forearm using Orthoglass splint, applied by nurse. cp Examined by me, post splint application: neurovascular intact, Patient tolerated well. MDM: 17:17 Patient medically screened. cp 19:25 Data reviewed: vital signs, nurses notes, radiologic studies, plain films, ultrasound. cp 19:25 Differential diagnosis: non-union of fracture, DVT, cellulitis. Consideration of cp Admission/Observation Escalation of care including admission/observation considered. I considered the following discharge prescriptions or medication management in the emergency department Medications were administered in the Emergency Department. See MAR. Counseling: I had a detailed discussion with the patient and/or guardian regarding: the historical points, exam findings, and any diagnostic results supporting the discharge/admit diagnosis, radiology results, the need for outpatient follow up, a orthopedic surgeon, to return to the emergency department if symptoms worsen or persist or if there are any questions or concerns that arise at home. Response to treatment: the patient's symptoms have mildly improved after treatment. 08/28 17:11 Order name: XRAY Wrist RIGHT 3 view; Complete Time: 19:33 cp 08/28 19:34 Interpretation: Report reviewed. cp 08/28 17:40 Order name: Shoulder Right 2 View; Complete Time: 19:33 EDMS 08/28 19:34 Interpretation: Report reviewed. cp 08/28 17:48 Order name: UPPER EXTREMITY VENOUS UNILATE; Complete Time: 19:33 EDMS 08/28 19:18 Order name: Splint - Sugar Tong - Forearm; Complete Time: 20:54 cp Administered Medications: 18:11 Drug: Tylenol 650 mg Route: PO; ld1 19:30 Follow up: Response: Pain is decreased eh3 18:11 Drug: HYDROcodone-acetaminophen 5 mg-325 mg 1 tabs Route: PO; ld1 19:30 Follow up: Response: Pain is decreased eh3 Disposition Summary: 08/28/22 19:25 Discharge Ordered Location: Home cp Problem: an ongoing problem cp Symptoms: have improved cp Condition: Stable cp Diagnosis - Pain in right shoulder cp - Pain in right wrist cp Followup: cp - With: Cristian Rawls MD - When: 2 - 3 days - Reason: Recheck today's complaints Discharge Instructions: - Discharge Summary Sheet cp - Shoulder Pain cp - Wrist Pain, Adult cp - Shoulder Range of Motion Exercises cp - How to Use Cold Therapy cp - Heat Therapy cp Forms: - Medication Reconciliation Form cp - Thank You Letter cp - Antibiotic Education cp - Prescription Opioid Use cp Signatures: Dispatcher [employer] EDVT Moi Rivera PA PA cp Loraine Galvan RN RN ld1 Sanjuanita Friedman RN RN ko1 Yudelka King RN eh3 Corrections: (The following items were deleted from the chart) 17:40 17:11 Shoulder Left 2 View+RAD.RAD.BRZ ordered. EDMS EDMS 17:48 17:11 Extremity Venous Uni Ltd+US.RAD.BRZ ordered. EDMS EDMS 08/29 20:38 20:00 Splinting: Splint applied to right forearm using Orthoglass splint, applied by cp nurse. Examined by me, post splint application: neurovascular intact, Patient tolerated well, cp
[2022-08-28 21:47] VITALS: BP 186/83; TEMP 98; O2SAT 96
== END 2022-08-28 20:56 | disposition home or self-care (01) ==
LOC: ER 16:40
PROC: 2W3CX1Z Immobilization of Right Lower Arm using Splint (ICD-10-PCS; principal; 2022-08-28)
DX: M25.531 Pain in right wrist (principal); S62.101S Fracture of unspecified carpal bone, right wrist, sequela; M25.511 Pain in right shoulder; Z88.6 Allergy status to analgesic agent; Z88.3 Allergy status to other anti-infective agents
CPT/HCPCS: 93971; 99283

== ENCOUNTER 2022-09-10 18:59 | Emergency (ER) | payer OTHER ==
--- OUTSIDE RECORDS SUMMARY | 2022-09-10 19:12 | XMS REPORT | Continuity of Care Document ---
:1955 Author Organization [facility] t Address [address] [place] [address] Care Team Providers Name Role Phone Cuba Gardiner MD Primary Care Physician Unavailable BOBBY SIMS Attending Clinician Unavailable CANDIDA BURGESS Attending Clinician Unavailable CUBA GARDINER Attending Clinician Unavailable Doctor Unassigned, [place] Attending Clinician Unavailable Sharla Ashraf Attending Clinician SHARLA TYLER Attending Clinician Unavailable Cuba Gardiner MD Attending Clinician Maribell Bhatai Attending Clinician Demetrio Conteh RN Attending Clinician [...] Date Expiration Date S supa HUMANA CHOICE [id number] 2014 00:00:00 Problems Condition Condition Condition Status [...] presence for not not surgery specified specified [id number] Hiatal Hiatal Disease Active 2020-0 Overview: Univer s hernia hernia 3-02 Added ity of 00:00: automatic [place] 00 ally from Medical request Branch for surgery [id number] Anxiety Anxiety Disease Active Univers 8-22 ity [...] ccal ccal 00:00: [place] infection infection 00 [facility] 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) 00 [facility] Iron Iron Disease Active 2015-07 Univers deficiency [...] Quantity Comments Source Exposure to Not sure [facility]-CoV-2 [place] Medical (event) Branch History SDOH [facility] Alcohol Frequency 00:00:00 00:00:00 [facility] Tobacco use and 2019-01-16 2019-01-[address] [facility] exposure 00:00:00 00:00:00 [facility] Sex Assigned At [address] [facility] 00:00:00 00:[facility]00 [facility] Smoking Status Start Date Stop Date Source Never smoker [facility] Medical Branch Medications Ordered Filled Start Stop [...] or Shortness of Breath. losartan 50 Yes [id number] 50mg Take 1 Univers mg tablet 4-28 tablet by ity o f 00:00: mouth [place] 00 daily. Medical Branch losartan 50 0 Yes [id number] 50mg Take 1 Univers mg tablet 4-28 tablet by ity o f 00:00: mouth [place] 00 daily. Medical Branch losartan 50 0 Yes [id number] 50mg Take 1 Univers mg tablet 4-28 tablet by ity o f 00:00: mouth [place] 00 daily. Medical Branch losartan 50 0 Yes [id number] 50mg Take 1 Univers mg tablet 4-28 [...] 4-08 by mouth ity of 00:00: at [place] [address] bedtime. Medical Branch zolpidem 10 2020-0 Yes 10mg Take 10 mg Univers mg tablet 4-08 by mouth ity of 00:00: at [place] [address] bedtime. Medical Branch ALPRAZolam 2020-0 2021- No .5mg Take 0.5 Un bogdan 0.5 mg 4-08 04-28 mg by ity of tablet 00:00: 00:00 mouth 2 [place] 00 :00 (two) Medical times [place] daily. ALPRAZolam 2020-0 2021- No .5mg Take 0.5 Un bogdan 0.5 mg 4-08 04-28 mg by ity of tablet 00:00: 00:00 mouth 2 [place] 00 :00 (two) Medical times [place] daily. atomoxetine 2020-0 Yes 40mg Take 40 mg Univers 40 mg 3-25 by mouth 2 ity of capsule 00:00: (two) [place] times Medical daily. Branch temazepam 2020-0 Yes 30mg Take 30 mg Un bogdan 30 mg 3-25 by mouth ity of capsule 00:00: at [place] [address] bedtime. Medical Branch atomoxetine 1-0 Yes 40mg Take 40 mg Univers 40 mg 3-25 by mouth 2 ity of capsule 00:00: (two) [place] times Medical daily. Branch temazepam 2020-0 Yes 30mg Take 30 mg Un bogdan 30 mg 3-25 by mouth ity of capsule 00:00: at [place] [address] bedtime. Medical Branch atomoxetine Yes 40mg Take 40 mg Univers 40 mg 3-25 by mouth 2 ity of capsule 00:00: (two) [place] 00 times Medical daily. Branch temazepam Yes 30mg Take 30 mg Un bogdan 30 mg 3-25 by mouth ity of capsule 00:00: at [place] [address] bedtime. Medical Branch atomoxetine Yes 40mg Take 40 mg Univers 40 mg 3-25 by mouth 2 ity of capsule 00:00: (two) [place] 00 times Medical daily. Branch temazepam Yes 30mg Take 30 mg Un bogdan 30 mg 3-25 by mouth ity of capsule 00:00: at [place] [address] bedtime. Medical Branch ARIPiprazol Yes TAKE 1 TO U nivers e 2 mg 3-11 2 TABLETS ity of tablet 00:00: BY MOUTH [place] EVERY Medical NIGHT AT [facility] ARIPiprazol 2020- Yes TAKE 1 TO U nivers e 2 mg 3-11 2 TABLETS ity of tablet 00:00: BY MOUTH [place] EVERY Medical NIGHT AT [facility] ARIPiprazol 2020-0 Yes TAKE 1 TO U nivers e 2 mg 3-11 2 TABLETS ity of tablet 00:00: BY MOUTH [place] [address] EVERY Medical NIGHT AT [facility] ARIPiprazol 2020-0 Yes TAKE 1 TO U nivers e 2 mg 3-11 2 TABLETS ity of tablet 00:00: BY [place] [address] EVERY Medical NIGHT AT [facility] DALIRESP 2020-0 2021- No 1{tbl} Take [...] by ity of tablet 00:00: mouth at [place] [address] bedtime. Medical Branch SERTraline 2020-0 Yes 100mg [...] bedtime. Medical Branch ergocalcife 2020-0 2020- No [id number] Take Univers rol, 02-28 50,000 ity of vitamin d2, 00:00: 04:59 Units by [place] 2,500 unit 00 :00 mouth Medical Cap weekly for Branch 6 doses. ergocalcife 2020-0 2020- No [id number] Take Univers rol, 02-28 50,000 ity of vitamin d2, 00:00: 04:59 Units by [place] 2,500 unit 00 :00 mouth Medical Cap weekly for Branch 6 doses. ergocalcife 2019-0 2020- No [id number] Take [facility], 02-28 50,000 ity of [...] by mouth ity of capsule 01:02: daily. [place] [address] Medical Branch fluticasone 2020-0 Yes Inhale. Uni vers /umeclidin/ 7-31 ity of vilanter 01:02: [place] ([facility] 13 Medical [facility] Branch INHALE) albuterol 2020-0 Yes 2{puff} Inhale 2 U nivers (VENTOLIN) 7-31 Puffs ity of 90 01:02: every 6 [place] mcg/actuati 13 (six) Medical on inhaler hours as Branc h needed for Wheezing or Shortness of Breath. omeprazole 2020-0 Yes 40mg Take 40 mg U nivers 40 mg 7-31 by mouth ity of capsule 01:02: daily. [address] Branch fluticasone 2020-0 Yes Inhale. Uni vers /umeclidin/ 7-31 ity of vilanter 01:02: [place] ([place] [address] Medical ELLIPTA Branch INHALE) albuterol 2020-0 Yes 2{puff} Inhale 2 U nivers (VENTOLIN) 7-31 Puffs ity of 90 01:02: every 6 [place] mcg/actuati 13 (six) Medical on inhaler hours as Branc h needed for Wheezing or Shortness of Breath. omeprazole 2020-0 Yes 40mg Take 40 mg U nivers 40 mg 7-31 by mouth ity of capsule 01:02: daily. [address] Branch fluticasone 2020-0 Yes Inhale. Uni vers /umeclidin/ 7-31 ity of vilanter 01:02: [place] ([address] Branch [address]) albuterol 2020-0 Yes 2{puff} Inhale 2 U nivers (VENTOLIN) 7-31 Puffs ity of 90 01:02: every 6 [place] mcg/actuati (six) Medical on inhaler hours as Branc h needed for Wheezing or Shortness of Breath. omeprazole 2020-0 Yes 40mg Take 40 mg U nivers 40 mg 7-31 by mouth ity of capsule 01:02: daily. [address] Branch fluticasone 2020-0 Yes Inhale. Uni vers /umeclidin/ 7-31 ity of vilanter 01:02: [place] ([address] Branch [address]) omeprazole 2020-0 Yes 40mg Take 40 mg U nivers 40 mg 7-31 by mouth ity of capsule 01:02: daily. [address] Branch fluticasone 2020-0 Yes Inhale. Uni vers /umeclidin/ 7-31 ity of vilanter 01:02: [place] ([address] Branch [address]) omeprazole 2020-0 Yes 40mg Take 40 mg U nivers 40 mg 7-31 by mouth ity of capsule 01:02: daily. [address] Branch fluticasone 2020-0 Yes Inhale. Uni vers /umeclidin/ 7-31 ity of vilanter 01:02: [place] ([address] Branch [address]) omeprazole 2020-0 Yes 40mg Take 40 mg U nivers 40 mg 7-31 by mouth ity of capsule 01:02: daily. [address] fluticasone 2020-0 Yes Inhale. Uni vers /umeclidin/ 7- ity of vilanter 01:02: [place] ([address] Branch INHALE) omeprazole 2020-0 Yes 40mg Take 40 mg U nivers 40 mg 7-31 by mouth ity of capsule 01:02: daily. [address] fluticasone 2020-0 Yes Inhale. Uni vers /umeclidin/ - ity of vilanter 01:02: [place] ([address] Branch [address]) carvediloL 2020-0 2020- No [id number] 12.5mg Take 1 Univers 12.5 mg 7- 08-31 tablet by ity of tablet 00:00: 04:59 mouth 2 [place] 00 :00 (two) [facility] times [place] daily with meals for 30 days. carvediloL 2020-0 2020- No [id number] 12.5mg Take 1 Univers 12.5 mg 7- 08-31 tablet by ity of tablet 00:00: 04:59 mouth 2 [place] 00 :00 (two) Medical times [place] daily with meals for 30 days. predniSONE 2020-0 Yes 10mg 10 mg, Unive rs (DELTASONE) 7-30 Oral, ity of tablet 10 22:45: DAILY, [place] mg 00 First dose Medical on [facility] Branch 02/22/20 at 1745, Until Discontinu ed, Routine ipratropium 2020-0 Yes 3mL 3 mL, Unive rs -albuterol 7-30 Inhalation ity of (DUONEB) 21:00: , QID, [place] 0.5 mg-3 00 First dose Medic al mg(2.5 mg on [facility] base)/3 mL 02/22/20 at nebulizer 1600, solution 3 Until mL Discontinu ed, Routine ergocalcife 2020-0 Yes [id number] 50,000 Un bogdan rol 7-30 Units, ity of (vitamin 19:30: Oral, [place] d2) 00 QWEEKLY, Medical (CALCIFEROL First dose Br anch ) capsule on Mar[place] 50,000 02/22/20 at Units 1430, Until Discontinu ed, Routine loperamide 2020-0 Yes 2mg 2 mg, Univer s (IMODIUM 7-30 Oral, ity of A-D) 19:04: Q4HPRN, [place] capsule 2 12 Starting Medica l mg [facility] Branch 02/22/20 at 1404, Until Discontinu [...] First dose Medic al NaCl 0.9% on [facility] Branch (NS) 100 mL 02/22/20 at [...] BIDPRN, [place] mg 00 Starting Medical [facility] Branch 02/21/20 at 2300, Until Discontinu ed, [...] TIDPRN, [place] 33 :27 Starting Medical [facility] Branch 02/21/20 at 1938, Until Wed02/21/20 at 2254, Routine, anxiety loperamide 2019- 2020- No [id number] 2mg Take 1 Univers 2 mg - 08-10 capsule by ity of capsule 00:00: 04:59 mouth [place] 00 :00 every 4 Medical (four) Branch hours as needed for Diarrhea for up to 10 days. loperamide 2019-0 2020- No [id number] 2mg Take 1 Univers 2 mg -30 08-10 capsule by ity of capsule 00:00: 04:59 mouth [place] 00 :00 every 4 Medical (four) Branch hours as needed for Diarrhea for up to 10 days. ALPRAZolam 2019-0 2020- No [id number] .5mg Take 1 Univers 0.5 mg - 08-05 tablet by ity of tablet 00:00: 04:59 mouth 3 [place] 00 :00 (three) Medical times Branch daily as needed (anxiety) for up to 5 days. ALPRAZolam 2020- No [id number] .5mg Take 1 Univers 0.5 mg 02-21 0805 tablet by ity of tablet 00:00: 04:59 mouth 3 [place] 00 :00 (three) Medical times [place] daily as needed (anxiety) for up to [...] ity of 1,000 mg in 16:00: 03:51 [place], [place] NaCl 0.9% 00 :59 Q12H ABX, Medic al (NS) 50 mL First dose [facility] MINI-BAG on Wed02/21/20 at 1100, Until Discontinu ed, 50 mL
R dee for Anti-Infec tive: Empiric Therapy for Suspected Infection< br>Empiric Therapy Site: Respirator y
Durat ion of therapy: 72 hours NaCl 0.9% 2020- No 1000mL at 999 Uni vers (NS) bolus 02-20 mL/hr, ity of infusion 16:00: 16:00 1,000 mL, [place] 1,000 mL 00 :00 IV Medical Piggyback, [place] ONCE, 1 dose, 02/21/20 at 1100, STAT doxycycline 2020-0 2020- No 100mg 100 mg, U nivers hyclate 02-14 Oral, ity of (Vibramycin 01:45: 00:41 ONCE, 1 [place] capsule 00 :00 dose, Wed Medic al 100 mg 02/14/20 at [place] 204, SHANE
Re ason for Anti-Infec tive: Documented Infection< br>Documen leann Infection Site: Respirator y
Durat ion of Therapy: 7 days ondansetron 2019-0 2020- No 4mg 4 mg, Slow Univers (ZOFRAN 02-14 IV Push, ity of (PF)) 00:45: 23:43 ONCE, 1 [place] injection 4 00 :00 dose, Wed Med ical mg 02/14/20 at [place] 194, SAHNE acetaminoph 2019- 2020- No 650mg 650 mg, U nivers en 02-14 Oral, ity of (TYLENOL) 00:45: 23:43 ONCE, 1 [place] tablet 650 00 :00 dose, Wed Medi feliciano mg 02/14/20 at Branch 194, SHANE contrast 2019-0 2020- No Intravenou Un bogdan previously 02-14 s, ONCE, 1 it y of administere 00:00: 23:30 dose, Wed [place] d 0 mL 00 :00 02/14/20 at [facility] 1900, [place] Routine iohexol 2019-0 2020- No 120mL 120 mL, Unive rs (OMNIPAQUE 02-13 Intravenou it y of 350 23:45: 23:30 s, ONCE, 1 [place] BULK-150 00 :00 dose, Wed Medica l mL) 02/14/20 at [place] injection 1845, 120 mL Routine NaCl 0.9% [...] by mouth ity of capsule 19:27: daily. [place] [address] Medical Branch fluticasone 2020-0 Yes Inhale. Uni vers /umeclidin/ 02-13 ity of vilanter 19:27: [place] ([place] [address] Medical ELLIPTA Branch INHALE) omeprazole 2020-0 Yes 40mg Take 40 mg U nivers 40 mg 7-22 by mouth ity of capsule 19:27: daily. [address] Branch fluticasone 2020-0 Yes Inhale. Uni vers /umeclidin/ 02-13 ity of vilanter 19:27: [place] ([place] [address] Medical ELLIPTA Branch INHALE) omeprazole 2020-0 Yes 40mg Take 40 mg U nivers 40 mg 7-22 by mouth ity of capsule 19:27: daily. [address] Branch fluticasone 2020-0 Yes Inhale. Uni vers /umeclidin/ 02-13 ity of vilanter 19:27: [place] ([place] [address] Medical ELLIPTA Branch INHALE) omeprazole 2020-0 Yes 40mg Take 40 mg U nivers 40 mg 7-22 by mouth ity of capsule 19:27: daily. [address] Branch fluticasone 2020-0 Yes Inhale. Uni vers /umeclidin/ 02-13 ity of vilanter 19:27: [place] ([place] [address] Medical ELLIPTA Branch INHALE) omeprazole 2020-0 Yes 40mg Take 40 mg U nivers 40 mg 7-22 by mouth ity of capsule 19:27: daily. [address] Branch fluticasone 2020-0 Yes Inhale. Uni vers /umeclidin/ 02-13 ity of vilanter 19:27: [place] ([place] [address] Medical ELLIPTA Branch INHALE) omeprazole 2020-0 Yes 40mg Take 40 mg U nivers 40 mg 7-22 by mouth ity of capsule 19:27: daily. [address] Branch fluticasone 2020-0 Yes Inhale. Uni vers /umeclidin/ 7-22 ity of vilanter 19:27: [place] ([address] INHALE) omeprazole 2020-0 Yes 40mg Take 40 mg U nivers 40 mg - by mouth ity of capsule 19:27: daily. [address] fluticasone 2020-0 Yes Inhale. Uni vers /umeclidin/ 02-13 ity of vilanter 19:27: [place] ([address] INHALE) doxycycline 2019-0 2020- No [id number] 100mg Take 1 Univers hyclate 100 7- 07-30 capsule by i ty of mg capsule 00:00: 04:59 mouth 2 [place] 00 :00 (two) Medical times Branch daily for 7 days. doxycycline 2020-0 2020- No [id number] 100mg Take 1 Univers hyclate 100 7- 07-30 capsule by i ty of mg capsule 00:00: 04:59 mouth 2 [place] 00 :00 (two) Medical times Branch daily for 7 days. doxycycline 2020-0 2020- No [id number] 100mg Take 1 Univers hyclate 100 - 07-30 capsule by i ty of mg capsule 00:00: 04:59 mouth 2 [place] 00 :00 (two) Medical times Branch daily for 7 days. doxycycline 2020-0 2020- No [id number] 100mg Take 1 Univers hyclate 100 - 07-30 capsule by i ty of mg capsule 00:00: 04:59 mouth 2 [place] 00 :00 (two) Medical times Branch daily for 7 days. doxycycline 2020-0 2020- No [id number] 100mg Take 1 Univers hyclate 100 02-13 [...] at Branch 1315, SHANE ondansetron 2020-0 Yes [id number] 4mg Take 1 Univers 4 mg 6-10 tablet by ity of disintegrat 00:00: mouth [place] ing tablet 00 every 4 Medica l (four) Branch hours as needed for Nausea and Vomiting (N/V). ondansetron 2020-0 Yes [id number] 4mg Take 1 Univers 4 mg 6-10 tablet by ity of disintegrat 00:00: mouth [place] ing tablet 00 every 4 Medica l (four) Branch hours as needed for Nausea and Vomiting (N/V). ondansetron 2020-0 Yes [id number] 4mg Take 1 Univers 4 mg 6-10 tablet by ity of disintegrat 00:00: mouth [place] ing tablet 00 every 4 Medica l (four) Branch hours as needed for Nausea and Vomiting (N/V). ondansetron 2020-0 Yes [id number] 4mg Take 1 Univers 4 mg 6-10 tablet by ity of disintegrat 00:00: mouth [place] ing tablet 00 every 4 Medica l (four) Branch hours as needed for Nausea and Vomiting (N/V). ondansetron 2020-0 Yes [id number] 4mg Take 1 Univers 4 mg 6-10 tablet by ity of disintegrat 00:00: mouth [place] ing tablet 00 every 4 Medica l (four) Branch hours as needed for Nausea and Vomiting (N/V). ondansetron 2020-0 Yes [id number] 4mg Take 1 Univers 4 mg 6-10 tablet by ity of disintegrat 00:00: mouth [place] ing tablet 00 every 4 Medica l (four) Branch hours as needed for Nausea and Vomiting (N/V). ondansetron 2020-0 Yes [id number] 4mg Take 1 Univers 4 mg 6-10 tablet by ity of disintegrat 00:00: mouth [place] ing tablet 00 every 4 Medica l (four) Branch hours as needed for Nausea and Vomiting (N/V). ondansetron 2020-0 Yes [id number] 4mg Take 1 Univers 4 mg 6-10 tablet by ity of disintegrat 00:00: mouth [place] ing tablet 00 every 4 Medica l (four) Branch hours as needed for Nausea and Vomiting (N/V). ondansetron 2020-0 Yes [id number] 4mg Take 1 Univers 4 mg 6-10 tablet by ity of disintegrat 00:00: mouth [place] ing tablet 00 every 4 Medica l (four) Branch hours as needed for Nausea and Vomiting (N/V). ondansetron 2020-0 Yes [id number] 4mg Take 1 Univers 4 mg 6-10 tablet by ity of disintegrat 00:00: mouth [place] ing tablet 00 every 4 Medica l (four) Branch hours as needed for Nausea and Vomiting (N/V). ondansetron 2020-0 Yes [id number] 4mg Take 1 Univers 4 mg 6-10 tablet by ity of disintegrat 00:00: mouth [place] ing tablet 00 every 4 Medica l (four) Branch hours as needed for Nausea and Vomiting (N/V). ondansetron 2020-0 Yes [id number] 4mg Take 1 Univers 4 mg 6-10 tablet by ity of disintegrat 00:00: mouth [place] ing tablet 00 every 4 Medica l (four) Branch hours as needed for Nausea and Vomiting (N/V). ondansetron 2020-0 Yes [id number] 4mg Take 1 Univers 4 mg 6-10 tablet by ity of disintegrat 00:00: mouth [place] ing tablet 00 every 4 Medica l (four) Branch hours as needed for Nausea and Vomiting (N/V). ondansetron 2020-0 Yes [id number] 4mg Take 1 Univers 4 mg 6-10 tablet by ity of disintegrat 00:00: mouth [place] ing tablet 00 every 4 Medica l (four) Branch hours as needed for Nausea and Vomiting (N/V). ondansetron 2020-0 Yes [id number] 4mg Take 1 Univers 4 mg 6-10 tablet by ity of disintegrat 00:00: mouth [place] ing tablet 00 every 4 Medica l (four) Branch hours as needed for Nausea and Vomiting (N/V). ondansetron 2020-0 Yes [id number] 4mg Take 1 Univers 4 mg 6-10 tablet by ity of disintegrat 00:00: mouth [place] ing tablet 00 every 4 Medica l (four) Branch hours as needed for Nausea and Vomiting (N/V). ondansetron 2020-0 Yes [id number] 4mg Take 1 Univers 4 mg 6-10 tablet by ity of disintegrat 00:00: mouth [place] ing tablet 00 every 4 Medica l (four) Branch hours as needed for Nausea and Vomiting (N/V). ondansetron 2020-0 Yes [id number] 4mg Take 1 Univers 4 mg 6-10 tablet by ity of disintegrat 00:00: mouth [place] ing tablet 00 every 4 Medica l (four) Branch hours as needed for Nausea and Vomiting (N/V). ondansetron 2020-0 Yes [id number] 4mg Take 1 Univers 4 mg 6-10 [...] by mouth ity of capsule 20:24: daily. [address] fluticasone 2020-0 Yes Inhale. Uni vers /umeclidin/ 5-15 ity of vilanter 20:24: [place] ([address] ELLIPTA Branch INHALE) albuterol 2020-0 Yes [...] by mouth ity of capsule 20:24: daily. [address] fluticasone 2020-0 Yes Inhale. Uni vers /umeclidin/ 5-15 ity of vilanter 20:24: [place] ([facility] 14 [facility] ELLIPTA Branch INHALE) albuterol 2020-0 Yes 2{puff} [...] by mouth ity of capsule 20:24: daily. [address] fluticasone 2020-0 Yes Inhale. Uni vers /umeclidin/ 5-15 ity of vilanter 20:24: [place] ([address] ELLIPTA Branch INHALE) albuterol 2020-0 Yes [...] by mouth ity of capsule 20:24: daily. [address] fluticasone 2020-0 Yes Inhale. Uni vers /umeclidin/ 5-15 ity of vilanter 20:24: [place] ([address] Branch INHALE) albuterol 2020-0 Yes 2{puff} [...] by mouth ity of capsule 20:24: daily. [address] Branch fluticasone 2020-0 Yes Inhale. Uni vers /umeclidin/ 5-15 ity of vilanter 20:24: [place] ([facility] 14 Medical ELLIPTA Branch INHALE) albuterol 2020-0 [...] by mouth ity of capsule 20:24: daily. [address] fluticasone 2020-0 Yes Inhale. Uni vers /umeclidin/ 5-15 ity of vilanter 20:24: [place] ([address] Branch INHALE) albuterol 2020-0 Yes 2{puff} [...] by mouth ity of capsule 20:24: daily. [address] fluticasone 2020-0 Yes Inhale. Uni vers /umeclidin/ 5-15 ity of vilanter 20:24: [place] ([address] ELLIPTA Branch INHALE) albuterol 2020-0 Yes [...] by mouth ity of capsule 20:24: daily. [address] fluticasone 2020-0 Yes Inhale. Uni vers /umeclidin/ 5-15 ity of vilanter 20:24: [place] ([address] Branch INHALE) albuterol 2020-0 Yes 2{puff} [...] by mouth ity of capsule 20:24: daily. [address] fluticasone 2020-0 Yes Inhale. Uni vers /umeclidin/ 5-15 ity of vilanter 20:24: [place] ([address] Branch INHALE) albuterol 2020-0 Yes 2{puff} [...] 0745, 50 piggyback mL simethicone 2020-0 Yes [id number] 80mg Take 1 Univers 80 mg 5-15 tablet by ity of chewable 00:00: mouth [place] tablet 00 after Medical meals and Branch at bedtime. HYDROcodone 2020-0 Yes [id number] 7.5mg Take 15 mL Univers -acetaminop 5-15 by mouth ity of hen 7.5-325 00:00: every 4 [place] mg/15 mL 00 (four) Medical solution hours as Branch needed for Pain (scale 4-6) or Pain (scale 7-10). proMETHazin 2020-0 Yes [id number] 12.5mg Take 1 Univers e 12.5 mg 5-15 tablet by ity o f tablet 00:00: mouth [place] 00 every 6 Medical (six) Branch hours as needed for Nausea and Vomiting (N/V) or N/V alternatin g with Ondansetro n. simethicone 2020-0 Yes [id number] 80mg Take 1 Univers 80 mg 5-15 tablet by ity of chewable 00:00: mouth [place] tablet 00 after Medical meals and Branch at bedtime. HYDROcodone 2020-0 Yes [id number] 7.5mg Take 15 mL Univers -acetaminop 5-15 by mouth ity of hen 7.5-325 00:00: every 4 [place] mg/15 mL 00 (four) Medical solution hours as Branch needed for Pain (scale 4-6) or Pain (scale 7-10). proMETHazin 2020-0 Yes [id number] 12.5mg Take 1 Univers e 12.5 mg 5-15 tablet by ity o f tablet 00:00: mouth [place] 00 every 6 Medical (six) Branch hours as needed for Nausea and Vomiting (N/V) or N/V alternatin g with Ondansetro n. simethicone 2020-0 Yes [id number] 80mg Take 1 Univers 80 mg 5-15 tablet by ity of chewable 00:00: mouth [place] tablet 00 after Medical meals and Branch at bedtime. HYDROcodone 2020-0 Yes [id number] 7.5mg Take 15 mL Univers -acetaminop 5-15 by mouth ity of hen 7.5-325 00:00: every 4 [place] mg/15 mL 00 (four) Medical solution hours as Branch needed for Pain (scale 4-6) or Pain (scale 7-10). proMETHazin 2020-0 Yes [id number] 12.5mg Take 1 Univers e 12.5 mg 5-15 tablet by ity o f tablet 00:00: mouth [place] 00 every 6 Medical (six) Branch hours as needed for Nausea and Vomiting (N/V) or N/V alternatin g with Ondansetro n. simethicone 2020-0 Yes [id number] 80mg Take 1 Univers 80 mg 5-15 tablet by ity of chewable 00:00: mouth [place] tablet 00 after Medical meals and Branch at bedtime. HYDROcodone 2020-0 Yes [id number] 7.5mg Take 15 mL Univers -acetaminop 5-15 by mouth ity of hen 7.5-325 00:00: every 4 [place] mg/15 mL 00 (four) Medical solution hours as Branch needed for Pain (scale 4-6) or Pain (scale 7-10). proMETHazin 2020-0 Yes [id number] 12.5mg Take 1 Univers e 12.5 mg 5-15 tablet by ity o f tablet 00:00: mouth [place] 00 every 6 Medical (six) Branch hours as needed for Nausea and Vomiting (N/V) or N/V alternatin g with Ondansetro n. simethicone 2020-0 Yes [id number] 80mg Take 1 Univers 80 mg 5-15 tablet by ity of chewable 00:00: mouth [place] tablet 00 after Medical meals and Branch at bedtime. HYDROcodone 2020-0 Yes [id number] 7.5mg Take 15 mL Univers -acetaminop 5-15 by mouth ity of hen 7.5-325 00:00: every 4 [place] mg/15 mL 00 (four) Medical solution hours as Branch needed for Pain (scale 4-6) or Pain (scale 7-10). proMETHazin 2020-0 Yes [id number] 12.5mg Take 1 Univers e 12.5 mg 5-15 tablet by ity o f tablet 00:00: mouth [place] 00 every 6 Medical (six) Branch hours as needed for Nausea and Vomiting (N/V) or N/V alternatin g with Ondansetro n. simethicone 2020-0 Yes [id number] 80mg Take 1 Univers 80 mg 5-15 tablet by ity of chewable 00:00: mouth [place] tablet 00 after Medical meals and Branch at bedtime. HYDROcodone 2020-0 Yes [id number] 7.5mg Take 15 mL Univers -acetaminop 5-15 by mouth ity of hen 7.5-325 00:00: every 4 [place] mg/15 mL 00 (four) Medical solution hours as Branch needed for Pain (scale 4-6) or Pain (scale 7-10). proMETHazin 2020-0 Yes [id number] 12.5mg Take 1 Univers e 12.5 mg 5-15 tablet by ity o f tablet 00:00: mouth [place] 00 every 6 Medical (six) Branch hours as needed for Nausea and Vomiting (N/V) or N/V alternatin g with Ondansetro n. simethicone 2020-0 Yes [id number] 80mg Take 1 Univers 80 mg 5-15 tablet by ity of chewable 00:00: mouth [place] tablet 00 after Medical meals and Branch at bedtime. HYDROcodone 2020-0 Yes [id number] 7.5mg Take 15 mL [facility] -acetaminop 5-15 by mouth ity of hen 7.5-325 00:00: every 4 [place] as mg/15 mL 00 (four) Medical solution hours as Branch needed for Pain (scale 4-6) or Pain (scale 7-10). proMETHazin 2020-0 Yes [id number] 12.5mg Take 1 [facility] e 12.5 mg 5-15 tablet by ity o f tablet 00:00: mouth [place] 00 every 6 Medical (six) Branch hours as needed for Nausea and Vomiting (N/V) or N/V alternatin g with Ondansetro n. simethicone 2020-0 Yes [id number] 80mg Take 1 [facility] 80 mg 5-15 tablet by ity of chewable 00:00: mouth [place] tablet 00 after Medical meals and Branch at bedtime. HYDROcodone 2020-0 Yes [id number] 7.5mg Take 15 mL [facility] -acetaminop 5-15 by mouth ity of hen 7.5-325 00:00: every 4 [place] mg/15 mL 00 (four) Medical solution hours as Branch needed for Pain (scale 4-6) or Pain (scale 7-10). proMETHazin 2020-0 Yes [id number] 12.5mg Take 1 [facility] e 12.5 mg 5-15 tablet by ity o f tablet 00:00: mouth [place] 00 every 6 Medical (six) Branch hours as needed for Nausea and Vomiting (N/V) or N/V alternatin g with Ondansetro n. simethicone 2020-0 Yes [id number] 80mg Take 1 [facility] 80 mg 5-15 tablet by ity of chewable 00:00: mouth [place] tablet 00 after Medical meals and Branch at bedtime. HYDROcodone 2020-0 Yes [id number] 7.5mg Take 15 mL [facility] -acetaminop 5-15 by mouth ity of hen 7.5-325 00:00: every 4 [place] mg/15 mL 00 (four) Medical solution hours as Branch needed for Pain (scale 4-6) or Pain (scale 7-10). proMETHazin 2020-0 Yes [id number] 12.5mg Take 1 [facility] e 12.5 mg 5-15 tablet by ity o f tablet 00:00: mouth [place] 00 every 6 Medical (six) Branch hours as needed for Nausea and Vomiting (N/V) or N/V alternatin g with Ondansetro n. simethicone 2020-0 Yes [id number] 80mg Take 1 [facility] 80 mg 5-15 tablet by ity of chewable 00:00: mouth [place] tablet 00 after Medical meals and Branch at bedtime. HYDROcodone 2020-0 Yes [id number] 7.5mg Take 15 mL [facility] -acetaminop 5-15 by mouth ity of hen 7.5-325 00:00: every 4 [place] mg/15 mL 00 (four) Medical solution hours as Branch needed for Pain (scale 4-6) or Pain (scale 7-10). proMETHazin 2020-0 Yes [id number] 12.5mg Take 1 [facility] e 12.5 mg 5-15 tablet by ity o f tablet 00:00: mouth [place] 00 every 6 Medical (six) Branch hours as needed for Nausea and Vomiting (N/V) or N/V alternatin g with Ondansetro n. simethicone 2020-0 Yes [id number] 80mg Take 1 [facility] 80 mg 5-15 tablet by ity of chewable 00:00: mouth [place] tablet 00 after Medical meals and Branch at bedtime. HYDROcodone 2020-0 Yes [id number] 7.5mg Take 15 mL [facility] -acetaminop 5-15 by mouth ity of hen 7.5-325 00:00: every 4 [place] mg/15 mL 00 (four) Medical solution hours as Branch needed for Pain (scale 4-6) or Pain (scale 7-10). proMETHazin 2020-0 Yes [id number] 12.5mg Take 1 [facility] e 12.5 mg 5-15 tablet by ity o f tablet 00:00: mouth [place] 00 every 6 Medical (six) Branch hours as needed for Nausea and Vomiting (N/V) or N/V alternatin g with Ondansetro n. simethicone 2020-0 Yes [id number] 80mg Take 1 [facility] 80 mg 5-15 tablet by ity of chewable 00:00: mouth [place] tablet 00 after Medical meals and Branch at bedtime. HYDROcodone 2020-0 Yes [id number] 7.5mg Take 15 mL [facility] -acetaminop 5-15 by mouth ity of hen 7.5-325 00:00: every 4 [place] mg/15 mL 00 (four) Medical solution hours as Branch needed for Pain (scale 4-6) or Pain (scale 7-10). proMETHazin 2020-0 Yes [id number] 12.5mg Take 1 [facility] e 12.5 mg 5-15 tablet by ity o f tablet 00:00: mouth [place] 00 every 6 Medical (six) Branch hours as needed for Nausea and Vomiting (N/V) or N/V alternatin g with Ondansetro n. simethicone 2020-0 Yes [id number] 80mg Take 1 [facility] 80 mg 5-15 tablet by ity of chewable 00:00: mouth [place] tablet 00 after Medical meals and Branch at bedtime. HYDROcodone 2020-0 Yes [id number] 7.5mg Take 15 mL [facility] -acetaminop 5-15 by mouth ity of hen 7.5-325 00:00: every 4 [place] mg/15 mL 00 (four) Medical solution hours as Branch needed for Pain (scale 4-6) or Pain (scale 7-10). proMETHazin 2020-0 Yes [id number] 12.5mg Take 1 [facility] e 12.5 mg 5-15 tablet by ity o f tablet 00:00: mouth [place] 00 every 6 Medical (six) Branch hours as needed for Nausea and Vomiting (N/V) or N/V alternatin g with Ondansetro n. simethicone 2020-0 Yes [id number] 80mg Take 1 [facility] 80 mg 5-15 tablet by ity of chewable 00:00: mouth [place] tablet 00 after Medical meals and Branch at bedtime. HYDROcodone 2020-0 Yes [id number] 7.5mg Take 15 mL [facility] -acetaminop 5-15 by mouth ity of hen 7.5-325 00:00: every 4 [place] mg/15 mL 00 (four) Medical solution hours as Branch needed for Pain (scale 4-6) or Pain (scale 7-10). proMETHazin 2020-0 Yes [id number] 12.5mg Take 1 [facility] e 12.5 mg 5-15 tablet by ity o f tablet 00:00: mouth [place] 00 every 6 Medical (six) Branch hours as needed for Nausea and Vomiting (N/V) or N/V alternatin g with Ondansetro n. simethicone 2020-0 Yes [id number] 80mg Take 1 [facility] 80 mg 5-15 tablet by ity of chewable 00:00: mouth [place] tablet 00 after Medical meals and Branch at bedtime. HYDROcodone 2020-0 Yes [id number] 7.5mg Take 15 mL [facility] -acetaminop 5-15 by mouth ity of hen 7.5-325 00:00: every 4 [place] mg/15 mL 00 (four) Medical solution hours as Branch needed for Pain (scale 4-6) or Pain (scale 7-10). proMETHazin 2020-0 Yes [id number] 12.5mg Take 1 [facility] e 12.5 mg 5-15 tablet by ity o f tablet 00:00: mouth [place] 00 every 6 Medical (six) Branch hours as needed for Nausea and Vomiting (N/V) or N/V alternatin g with Ondansetro n. simethicone 2020-0 Yes [id number] 80mg Take 1 [facility] 80 mg 5-15 tablet by ity of chewable 00:00: mouth [place] tablet 00 after Medical meals and Branch at bedtime. HYDROcodone 2020-0 Yes [id number] 7.5mg Take 15 mL [facility] -acetaminop 5-15 by mouth ity of hen 7.5-325 00:00: every 4 [place] mg/15 mL 00 (four) Medical solution hours as Branch needed for Pain (scale 4-6) or Pain (scale 7-10). proMETHazin 2020-0 Yes [id number] 12.5mg Take 1 [facility] e 12.5 mg 5-15 tablet by ity o f tablet 00:00: mouth [place] 00 every 6 Medical (six) Branch hours as needed for Nausea and Vomiting (N/V) or N/V alternatin g with Ondansetro n. simethicone 2020-0 Yes [id number] 80mg Take 1 [facility] 80 mg 5-15 tablet by ity of chewable 00:00: mouth [place] tablet 00 after Medical meals and Branch at bedtime. HYDROcodone 2020-0 Yes [id number] 7.5mg Take 15 mL [facility] -acetaminop 5-15 by mouth ity of hen 7.5-325 00:00: every 4 [place] mg/15 mL 00 (four) Medical solution hours as Branch needed for Pain (scale 4-6) or Pain (scale 7-10). proMETHazin 2020-0 Yes [id number] 12.5mg Take 1 [facility] e 12.5 mg 5-15 tablet by ity o f tablet 00:00: mouth [place] 00 every 6 Medical (six) Branch hours as needed for Nausea and Vomiting (N/V) or N/V alternatin g with Ondansetro n. simethicone 2020-0 Yes [id number] 80mg Take 1 [facility] 80 mg 5-15 tablet by ity of chewable 00:00: mouth [place] tablet 00 after Medical meals and Branch at bedtime. HYDROcodone 2020-0 Yes [id number] 7.5mg Take 15 mL [facility] -acetaminop 5-15 by mouth ity of hen 7.5-325 00:00: every 4 [place] as mg/15 mL 00 (four) Medical solution hours as Branch needed for Pain (scale 4-6) or Pain (scale 7-10). proMETHazin 2020-0 Yes [id number] 12.5mg Take 1 [facility] e 12.5 mg 5-15 tablet by ity o f tablet 00:00: mouth [place] 00 every 6 Medical (six) Branch hours as needed for Nausea and Vomiting (N/V) or N/V alternatin g with Ondansetro n. simethicone 2020-0 Yes [id number] 80mg Take 1 [facility] 80 mg 5-15 tablet by ity of chewable 00:00: mouth [place] tablet 00 after Medical meals and Branch at bedtime. HYDROcodone 2020-0 Yes [id number] 7.5mg Take 15 mL [facility] -acetaminop 5-15 by mouth ity of hen 7.5-325 00:00: every 4 [place] as mg/15 mL 00 (four) Medical solution hours as Branch needed for Pain (scale 4-6) or Pain (scale 7-10). proMETHazin 2020-0 Yes [id number] 12.5mg Take 1 [facility] e 12.5 mg 5-15 tablet by ity o f tablet 00:00: mouth [place] 00 every 6 Medical (six) Branch hours as needed for Nausea and Vomiting (N/V) or N/V alternatin g with Ondansetro n. simethicone 2020-0 Yes [id number] 80mg Take 1 [facility] 80 mg 5-15 tablet by ity of chewable 00:00: mouth [place] tablet 00 after Medical meals and Branch at bedtime. HYDROcodone 2020-0 Yes [id number] 7.5mg Take 15 mL [facility] -acetaminop 5-15 by mouth ity of hen 7.5-325 00:00: every 4 [place] as mg/15 mL 00 (four) Medical solution hours as Branch needed for Pain (scale 4-6) or Pain (scale 7-10). proMETHazin 2020-0 Yes [id number] 12.5mg Take 1 [facility] e 12.5 mg 5-15 tablet by ity o f tablet 00:00: mouth [place] 00 every 6 Medical (six) Branch hours as needed for Nausea and Vomiting (N/V) or N/V alternatin g with Ondansetro n. simethicone 2020-0 Yes [id number] 80mg Take 1 [facility] 80 mg 5-15 tablet by ity of chewable 00:00: mouth [place] tablet 00 after Medical meals and Branch at bedtime. HYDROcodone 2020-0 Yes [id number] 7.5mg Take 15 mL [facility] -acetaminop 5-15 by mouth ity of hen 7.5-325 00:00: every 4 [place] as mg/15 mL 00 (four) Medical solution hours as Branch needed for Pain (scale 4-6) or Pain (scale 7-10). proMETHazin 2020-0 Yes [id number] 12.5mg Take 1 [facility] e 12.5 mg 5-15 tablet by ity o f tablet 00:00: mouth [place] 00 every 6 Medical (six) Branch hours as needed for Nausea and Vomiting (N/V) or N/V alternatin g with Ondansetro n. simethicone 2020-0 Yes [id number] 80mg Take 1 [facility] 80 mg 5-15 tablet by ity of chewable 00:00: mouth [place] tablet 00 after Medical meals and Branch at bedtime. HYDROcodone 2020-0 Yes [id number] 7.5mg Take 15 mL [facility] -acetaminop 5-15 by mouth ity of hen 7.5-325 00:00: every 4 [place] as mg/15 mL 00 (four) Medical solution hours as Branch needed for Pain (scale 4-6) or Pain (scale 7-10). proMETHazin 2020-0 Yes [id number] 12.5mg Take 1 [facility] e 12.5 mg 5-15 tablet by ity o f tablet 00:00: mouth [place] 00 every 6 Medical (six) Branch hours as needed for Nausea and Vomiting (N/V) or N/V alternatin g with Ondansetro n. simethicone 2020-0 Yes [id number] 80mg Take 1 [facility] 80 mg 5-15 tablet by ity of chewable 00:00: mouth [place] tablet 00 after Medical meals and Branch at bedtime. HYDROcodone 2020-0 Yes [id number] 7.5mg Take 15 mL [facility] -acetaminop 5-15 by mouth ity of hen 7.5-325 00:00: every 4 [place] as mg/15 mL 00 (four) Medical solution hours as Branch needed for Pain (scale 4-6) or Pain (scale 7-10). proMETHazin 2020-0 Yes [id number] 12.5mg Take 1 [facility] e 12.5 mg 5-15 tablet by ity o f tablet 00:00: mouth [place] 00 every 6 Medical (six) Branch hours as needed for Nausea and Vomiting (N/V) or N/V alternatin g with Ondansetro n. simethicone 2020-0 Yes [id number] 80mg Take 1 [facility] 80 mg 5-15 tablet by ity of chewable 00:00: mouth [place] tablet 00 after Medical meals and Branch at bedtime. HYDROcodone 2020-0 Yes [id number] 7.5mg Take 15 mL [facility] -acetaminop 5-15 by mouth ity of hen 7.5-325 00:00: every 4 [place] as mg/15 mL 00 (four) Medical solution hours as Branch needed for Pain (scale 4-6) or Pain (scale 7-10). proMETHazin 2020-0 Yes [id number] 12.5mg Take 1 [facility] e 12.5 mg 5-15 tablet by ity o f tablet 00:00: mouth [place] 00 every 6 Medical (six) Branch hours as needed for Nausea and Vomiting (N/V) or N/V alternatin g with Ondansetro n. simethicone 2020-0 Yes [id number] 80mg Take 1 [facility] 80 mg 5-15 tablet by ity of chewable 00:00: mouth [place] tablet 00 after Medical meals and Branch at bedtime. HYDROcodone 2020-0 Yes [id number] 7.5mg Take 15 mL [facility] -acetaminop 5-15 by mouth ity of hen 7.5-325 00:00: every 4 [place] as mg/15 mL 00 (four) Medical solution hours as Branch needed for Pain (scale 4-6) or Pain (scale 7-10). proMETHazin 2020-0 Yes [id number] 12.5mg Take 1 [facility] e 12.5 mg 5-15 tablet by ity o f tablet 00:00: mouth [place] 00 every 6 Medical (six) Branch hours as needed for Nausea and Vomiting (N/V) or N/V alternatin g with Ondansetro n. ipratropium 2020-0 Yes .5mg 0.5 mg, Uni vers (ATROVENT) 5-14 Inhalation ity of 0.02 % 15:10: , Q4HPRN, [place] nebulizer 00 Starting Medica l solution Am[place]anda Branch 0.5 mg 5/14/20 at 1010, Until Discontinu ed, Routine, Wheezing, Shortness of Breath proMETHazin 2020-0 Yes 12.5mg 12.5 mg, [facility] e 12-06 Oral, ity of (PHENERGAN) 12:44: Q4HPRN, [place] as tablet 12.5 01 Starting Medi feliciano mg [facility] 12/07/19 at 0744, Until Discontinu ed, Routine, Nausea and Vomiting (N/V), N/V alternatin g with Ondansetro n albuterol 2020-0 Yes 2.5mg 2.5 mg, Univ ers (PROVENTIL) 12-05 Inhalation it y of 2.5 mg /3 22:45: , Q4HPRN, [place] as mL (0.083 00 Starting Medica l %) [facility] nebulizer 12/06/19 at solution 1745, 2.5 mg Until Discontinu ed, Routine, Shortness of Breath, Wheezing ALPRAZolam 2019-0 Yes .5mg 0.5 mg, [facility] ers (XANAX) 12-05 Oral, ity of tablet 0.5 19:33: BIDPRN, [place] mg 05 Starting Medical [facility] 12/06/19 at 1433, Until Discontinu ed, Routine, anxiety acetaminoph 2019-0 Yes 650mg 650 mg, Un bogdan en 12-05 Oral, ity of (TYLENOL) 19:25: Q4HPRN, [place] 160 mg/5 mL 38 Starting Medi feliciano liquid 650 [facility] 12/06/19 at 1425, Until Discontinu ed, [...] 5-12 IV Push, ity of mg 21:29: Q4HPRNMorrison, [place] 52 Starting Medical Tue Branch 12/05/19 [...] (scale 4-6) phenol 2020-0 Yes 1{spray 1 [place], Univ ers (SORE -12 } Oral, PRN, ity of THROAT 21:07: Starting [place] (PHENOL)) 21 Tue Medical 1.4 % spray 12/05/19 at Br anch bottle 1 1607, [place] Until Discontinu ed, Routine, Sore throat barium [...] feliciano 0.2 mg 10 doses, Branch Starting [facility] 12/05/19 at 1010, Until Wed12/05/19 at 1125, Routine, Pain (scale 7-10), PACU
Us e approved by (Faculty): PACU USE -ANESTHESI A SERVICE-HY DROMORPHON E INJECTIONS FENTanyl PF 2019-0 2020- No 25ug 25 mcg, Un bogdan (SUBLIMAZE 12-04-12 Slow IV ity o f (PF)) 15:10: 16:25 Push, [place] injection 21 :41 Q5MIN PRN, Medi feliciano 25 mcg 4 doses, Branch Starting [facility] 12/05/19 at 1010, Until Wed12/05/19 at [...] by mouth ity of capsule 20:55: daily. [address] omeprazole 2020-0 Yes 40mg Take 40 mg U nivers 40 mg 4-28 by mouth ity of capsule 20:55: daily. [address] omeprazole 2020-0 Yes 40mg Take 40 mg U nivers 40 mg 4-28 by mouth ity of capsule 20:55: daily. [address] omeprazole 2020-0 Yes 40mg Take 40 mg U nivers 40 mg 4-28 by mouth ity of capsule 20:55: daily. [address] cefdinir 2020-0 2020- No 300mg Take 300 Uni vers 300 mg 4-28 04-28 mg by ity of capsule 20:52: 00:00 mouth [place] 58 :00 every 24 Medical (twenty-fo Branch ur) hours. carvedilol 2020-0 Yes 3.125mg Take 3.125 [facility] 3.125 mg 3-04 mg by ity of tablet 18:12: mouth 2 [place] [id number] ([facility]) Medical times [place] daily with meals. dextroamphe 2020-0 Yes 30mg [...] /umeclidin/ 2-26 ity of vilanter 20:33: [place] [facility] ELLIP[facility] Branch INHALE) cefdinir [...] /umeclidin/ 2-26 ity of vilanter 20:33: [place] [facility] ELLIPTA Branch INHALE) cefdinir [...] /umeclidin/ 2-26 ity of vilanter 20:33: [place] ([place] [address] Medical ELLIPTA Branch INHALE) albuterol 2020-0 Yes 2{puff} Inhale 2 U nivers (VENTOLIN) 2-26 Puffs ity of 90 20:33: every 6 [place] mcg/actuati 11 (six) Medical on inhaler hours as Branc h needed for Wheezing or Shortness of Breath. fluticasone 2020-0 Yes Inhale. Uni vers /umeclidin/ 2-26 ity of vilanter 20:33: [place] ([place] [address] Medical ELLIPTA Branch INHALE) albuterol 2020-0 Yes 2{puff} Inhale 2 U nivers (VENTOLIN) 2-26 Puffs ity of 90 20:33: every 6 [place] mcg/actuati 11 (six) Medical on inhaler hours as Branc h needed for Wheezing or Shortness of Breath. fluticasone 2020-0 Yes Inhale. Uni vers /umeclidin/ 2-26 ity of vilanter 20:33: [place] ([place] [address] Medical ELLIPTA Branch INHALE) albuterol 2020-0 Yes 2{puff} Inhale 2 U nivers (VENTOLIN) 2-26 Puffs ity of 90 20:33: every 6 [place] mcg/actuati 11 (six) Medical on inhaler hours as Branc h needed for Wheezing or Shortness of Breath. fluticasone 2020-0 Yes Inhale. Uni vers /umeclidin/ 2-26 ity of vilanter 20:33: [place] [facility] ELLIPTA Branch INHALE) albuterol 2020-0 Yes 2{puff} Inhale 2 U nivers (VENTOLIN) 2-26 Puffs ity of 90 20:33: every 6 [place] mcg/actuati 11 (six) Medical on inhaler hours as Branc h needed for Wheezing or Shortness of Breath. fluticasone 2020-0 Yes Inhale. Uni vers /umeclidin/ 2-26 ity of vilanter 20:33: [place] [facility] Branch [facility]HALE[facility] albuterol 2020-0 Yes 2{puff} Inhale 2 U nivers (VENTOLIN) 2-26 Puffs ity of 90 20:33: every 6 [place] mcg/actuati 11 (six) Medical on inhaler hours as Branc h needed for Wheezing or Shortness of Breath. fluticasone 2020-0 Yes Inhale. Uni vers /umeclidin/ 2-26 ity of vilanter 20:33: [place] ([place] [address] Medical ELLIPTA Branch INHALE) albuterol 2020-0 Yes 2{puff} Inhale 2 U nivers (VENTOLIN) 2-26 Puffs ity of 90 20:33: every 6 [place] mcg/actuati 11 (six) Medical on inhaler hours as Branc h needed for Wheezing or Shortness of Breath. fluticasone 2020-0 Yes Inhale. Uni vers /umeclidin/ 2-26 ity of vilanter 20:33: [place] ([facility] 11 Medical ELLIPTA Branch INHALE) albuterol 2020-0 Yes 2{puff} Inhale 2 U nivers (VENTOLIN) 2-26 Puffs ity of 90 20:33: every 6 [place] mcg/actuati 11 (six) Medical on inhaler hours as Branc h needed for Wheezing or Shortness of Breath. fluticasone 2020-0 Yes Inhale. Uni vers /umeclidin/ 2-26 ity of vilanter 20:33: [place] [facility] ELLIPTA Branch INHALE) albuterol [...] Medical ELLIPTA Branch INHALE) predniSONE 2018-07 Yes [id number] 10mg Take 1 [facility] 10 mg 0-11 tablet by ity of tablet 00:00: mouth [place] 00 daily. Medical Take with Branch food. predniSONE 2018-07 Yes [id number] 10mg Take 1 [facility] 10 mg 0-11 tablet by ity of tablet 00:00: mouth [place] 00 daily. Medical Take with Branch food. predniSONE 2018-07 Yes [id number] 10mg Take 1 [facility] 10 mg 0-11 tablet by ity of tablet 00:00: mouth [place] 00 daily. Medical Take with Branch food. predniSONE 2018-07 Yes [id number] 10mg Take 1 [facility] 10 mg 0-11 tablet by ity of tablet 00:00: mouth [place] 00 daily. Medical Take with Branch food. predniSONE 2018-07 Yes [id number] 10mg Take 1 [facility] 10 mg 0-11 tablet by ity of tablet 00:00: mouth [place] 00 daily. Medical Take with Branch food. predniSONE 2018- Yes [id number] 10mg Take 1 [facility] 10 mg 0-11 tablet by ity of tablet 00:00: mouth [place] 00 daily. Medical Take with Branch food. predniSONE 2018- Yes [id number] 10mg Take 1 [facility] 10 mg 0-11 tablet by ity of tablet 00:00: mouth [place] 00 daily. Medical Take with Branch food. predniSONE 2018- Yes [id number] 10mg Take 1 [facility] 10 mg 0-11 tablet by ity of tablet 00:00: mouth [place] 00 daily. Medical Take with Branch food. predniSONE 2018- Yes [id number] 10mg Take 1 [facility] 10 mg 0-11 tablet by ity of tablet 00:00: mouth [place] 00 daily. Medical Take with Branch food. predniSONE 2018- Yes [id number] 10mg Take 1 [facility] 10 mg 0-11 tablet by ity of tablet 00:00: mouth [place] 00 daily. Medical Take with Branch food. predniSONE 2018- Yes [id number] 10mg Take 1 [facility] 10 mg 0-11 tablet by ity of tablet 00:00: mouth [place] 00 daily. Medical Take with Branch food. predniSONE 2018- Yes [id number] 10mg Take 1 [facility] 10 mg 0-11 tablet by ity of tablet 00:00: mouth [place] 00 daily. Medical Take with Branch food. predniSONE 2018- Yes [id number] 10mg Take 1 [facility] 10 mg 0-11 tablet by ity of tablet 00:00: mouth [place] 00 daily. Medical Take with Branch food. predniSONE 2018- Yes [id number] 10mg Take 1 [facility] 10 mg 0-11 tablet by ity of tablet 00:00: mouth [place] 00 daily. Medical Take with Branch food. predniSONE 2018- Yes [id number] 10mg Take 1 [facility] 10 mg 0-11 tablet by ity of tablet 00:00: mouth [place] 00 daily. Medical Take with Branch food. predniSONE 2018- Yes [id number] 10mg Take 1 [facility] 10 mg 0-11 tablet by ity of tablet 00:00: mouth [place] 00 daily. Medical Take with Branch food. predniSONE 2018- Yes [id number] 10mg Take 1 [facility] 10 mg 0-11 tablet by ity of tablet 00:00: mouth [place] 00 daily. Medical Take with Branch food. predniSONE 2018- Yes [id number] 10mg Take 1 [facility] 10 mg 0-11 tablet by ity of tablet 00:00: mouth [place] 00 daily. Medical Take with Branch food. predniSONE 2018- Yes [id number] 10mg Take 1 [facility] 10 mg 0-11 tablet by ity of tablet 00:00: mouth [place] 00 daily. Medical Take with Branch food. predniSONE 2018- Yes [id number] 10mg Take 1 [facility] 10 mg 0-11 tablet by ity of tablet 00:00: mouth [place] 00 daily. Medical Take with Branch food. predniSONE 2018- Yes [id number] 10mg Take 1 [facility] 10 mg 0-11 tablet by ity of tablet 00:00: mouth [place] 00 daily. Medical Take with Branch food. predniSONE 2018- Yes [id number] 10mg Take 1 [facility] 10 mg 0-11 tablet by ity of tablet 00:00: mouth [place] 00 daily. Medical Take with Branch food. predniSONE 2018- Yes [id number] 10mg Take 1 [facility] 10 mg 0-11 tablet by ity of tablet 00:00: mouth [place] 00 daily. Medical Take with Branch food. predniSONE 2018- Yes [id number] 10mg Take 1 [facility] 10 mg 0-11 tablet by ity of tablet 00:00: mouth [place] 00 daily. Medical Take with Branch food. predniSONE 2018- Yes [id number] 10mg Take 1 [facility] 10 mg 0-11 tablet by ity of tablet 00:00: mouth [place] 00 daily. Medical Take with Branch food. predniSONE 2018- Yes [id number] 10mg Take 1 [facility] 10 mg 0-11 tablet by ity of tablet 00:00: mouth [place] 00 daily. Medical Take with Branch food. predniSONE 2018- Yes [id number] 10mg Take 1 [facility] 10 mg 0-11 tablet by ity of tablet 00:00: mouth [place] 00 daily. Medical Take with Branch food. predniSONE 2019- Yes [id number] 10mg Take 1 [facility] 10 mg 0-11 tablet by ity of tablet 00:00: mouth [place] 00 daily. Medical Take with Branch food. predniSONE 2018- Yes [id number] 10mg Take 1 [facility] 10 mg 0-11 tablet by ity of tablet 00:00: mouth [place] 00 daily. Medical Take with Branch food. predniSONE 2018- Yes [id number] 10mg Take 1 [facility] 10 mg 0-11 tablet by ity of tablet 00:00: mouth [place] 00 daily. Medical Take with Branch food. predniSONE 2018- Yes [id number] 10mg Take 1 [facility] 10 mg 0-11 tablet by ity of tablet 00:00: mouth [place] 00 daily. Medical Take with Branch food. predniSONE 2018- Yes [id number] 10mg Take 1 [facility] 10 mg 0-11 tablet by ity of tablet 00:00: mouth [place] 00 daily. Medical Take with Branch food. predniSONE 2018- Yes [id number] 10mg Take 1 [facility] 10 mg 0-11 tablet by ity of tablet 00:00: mouth [place] 00 daily. Medical Take with Branch food. predniSONE 2018- Yes [id number] 10mg Take 1 [facility] 10 mg 0-11 tablet by ity of tablet 00:00: mouth [place] 00 daily. Medical Take with Branch food. predniSONE 2018- Yes [id number] 10mg Take 1 [facility] 10 mg 0-11 tablet by ity of tablet 00:00: mouth [place] 00 daily. Medical Take with Branch food. predniSONE 2018- Yes [id number] 10mg Take 1 [facility] 10 mg 0-11 tablet by ity of tablet 00:00: mouth [place] 00 daily. Medical Take with Branch food. predniSONE 2018- Yes [id number] 10mg Take 1 [facility] 10 mg 0-11 tablet by ity of tablet 00:00: mouth [place] 00 daily. Medical Take with Branch food. predniSONE 2018- Yes [id number] 10mg Take 1 [facility] 10 mg 0-11 tablet by ity of tablet 00:00: mouth [place] 00 daily. Medical Take with Branch food. predniSONE 2018- Yes [id number] 10mg Take 1 [facility] 10 mg 0-11 tablet by ity of tablet 00:00: mouth [place] 00 daily. Medical Take with Branch food. predniSONE 2018- Yes [id number] 10mg Take 1 [facility] 10 mg 0-11 tablet by ity of tablet 00:00: mouth [place] 00 daily. Medical Take with Branch food. predniSONE 2018- Yes [id number] 10mg Take 1 [facility] 10 mg 0-11 tablet by ity of tablet 00:00: mouth [place] 00 daily. Medical Take with Branch food. predniSONE 2018- Yes [id number] 10mg Take 1 [facility] 10 mg 0-11 tablet by ity of tablet 00:00: mouth [place] 00 daily. Medical Take with Branch food. predniSONE 2018- Yes [id number] 10mg Take 1 [facility] 10 mg 0-11 tablet by ity of tablet 00:00: mouth daily. Medical Take with Branch food. predniSONE 2019- Yes [id number] 10mg Take 1 [facility] 10 mg 0-11 tablet by ity of tablet 00:00: mouth daily. Medical Take with Branch food. predniSONE 2018- Yes [id number] 10mg Take 1 [facility] 10 mg 0-11 tablet by ity of tablet 00:00: mouth daily. Medical Take with Branch food. omeprazole 2019-0 Yes 40mg Take 40 mg U nivers 40 mg 8-22 by mouth ity of capsule 21:10: daily. [facility] omeprazole 2019-0 Yes 40mg Take 40 mg U nivers 40 mg 8-22 by mouth ity of capsule 21:10: daily. [facility] omeprazole 2019-0 Yes 40mg Take 40 mg U nivers 40 mg 8-22 by mouth ity of capsule 21:10: daily. [facility] omeprazole 2019-0 Yes 40mg Take 40 mg U nivers 40 mg 8-22 by mouth ity of capsule 21:10: daily. [facility] omeprazole 2019-0 Yes 40mg Take 40 mg U nivers 40 mg 8-22 by mouth ity of capsule 21:10: daily. [facility] omeprazole 2019-0 Yes 40mg Take 40 mg U nivers 40 mg 8-22 by mouth ity of capsule 21:10: daily. [facility] omeprazole 2019-0 Yes 40mg Take 40 mg U nivers 40 mg 8-22 by mouth ity of capsule 21:10: daily. [facility] omeprazole 2019-0 Yes 40mg Take 40 mg U nivers 40 mg 8-22 by mouth ity of capsule 21:10: daily. [facility] omeprazole 2019-0 Yes 40mg Take 40 mg U nivers 40 mg 8-22 by mouth ity of capsule 21:10: daily. [facility] omeprazole 2019-0 Yes 40mg Take 40 mg U nivers 40 mg 8-22 by mouth ity of capsule 21:10: daily. [facility] omeprazole 2019-0 Yes 40mg Take 40 mg U nivers 40 mg 8-22 by mouth ity of capsule 21:10: daily. [facility] omeprazole 2019-0 Yes 40mg Take 40 mg U nivers 40 mg 8-22 by mouth ity of capsule 21:10: daily. [place] [facility] omeprazole 2019-0 Yes 40mg Take 40 mg U nivers 40 mg 8-22 by mouth ity of capsule 21:10: daily. [facility] omeprazole 2019-0 Yes 40mg Take 40 mg U nivers 40 mg 8-22 by mouth ity of capsule 21:10: daily. [address] omeprazole 2019-0 Yes 40mg Take 40 mg U nivers 40 mg 8-22 by mouth ity of capsule 21:10: daily. [place] [facility] omeprazole 2019-0 Yes 40mg Take 40 mg U nivers 40 mg 8-22 by mouth ity of capsule 21:10: daily. [address] omeprazole 2019-0 Yes 40mg Take 40 mg U nivers 40 mg 8-22 by mouth ity of capsule 21:10: daily. [address] omeprazole 2019-0 Yes 40mg Take 40 mg U nivers 40 mg 8-22 by mouth ity of capsule 21:10: daily. [address] omeprazole 2019-0 Yes 40mg Take 40 mg U nivers 40 mg 8-22 by mouth ity of capsule 21:10: daily. [address] omeprazole 2019-0 Yes 40mg Take 40 mg [facility] nivers 40 mg 8-22 by mouth ity of capsule 21:10: daily. [address] omeprazole 2019-0 Yes 40mg Take 40 mg U nivers 40 mg 8-22 by mouth ity of capsule 21:10: daily. [address] omeprazole 2019-0 Yes 40mg Take 40 mg U nivers 40 mg 8-22 by mouth ity of capsule 21:10: daily. [address] omeprazole 2019-0 Yes 40mg Take 40 mg U nivers 40 mg 8-22 by mouth ity of capsule 21:10: daily. [address] omeprazole 2019-0 Yes 40mg Take 40 mg U nivers 40 mg 8-22 by mouth ity of capsule 21:10: daily. [address] omeprazole 2019-0 Yes 40mg Take 40 mg U nivers 40 mg 8-22 by mouth ity of capsule 21:10: daily. [address] omeprazole 2019-0 Yes 40mg Take 40 mg U nivers 40 mg 8-22 by mouth ity of capsule 21:10: daily. [address] omeprazole 2019 Yes 40mg Take 40 mg U nivers 40 mg 8-22 by mouth ity of capsule 21:10: daily. [address] omeprazole [address] Yes 40mg Take 40 mg U nivers 40 mg 8-22 by mouth ity of capsule 21:10: daily. [address] roflumilast Yes 500ug QD Take 500 C [...] Medic al tablet 19 daily. Center albuterol 20190 Yes 1{puff} Inhale [address] HFA 8-12 puff by [facility] (VENTOLIN 14:49: mouth via Med ical HFA) 90 19 inhaler Center mcg/actuati every 6 on inhaler (six) hours as needed for Wheezing. dextroamphe 20190 Yes 20mg Q.5D Take [address] [facility] tamine-amph 8-12 by mouth 2 Niurka kes etamine 14:49: (two) Medical (ADDERALL) 19 times Center 20 mg Tab daily. tablet venlafaxine 2019-0 Yes major 75mg Q.5D Take [address] [facility] (EFFEXOR) 8-12 depressive by mouth 2 [facility] 75 MG 14:49: disorder (two) Medical tablet 19 times Center daily. ALPRAZolam 2019-0 Yes 1mg Take 1 mg [facility] [...] Center 20 mg Tab daily. tablet venlafaxine 2019-0 Yes major 75mg Q.5D Take [address] [facility] (EFFEXOR) 8-12 depressive by mouth 2 [facility] 75 MG 14:49: disorder (two) Medical tablet 19 times Center daily. ALPRAZolam 2019-0 Yes 1mg Take 1 mg [facility] [...] Center 20 mg Tab daily. tablet venlafaxine 0 Yes major 75mg Q.5D Take 75 mg [...] 10 MG 14:49: daily. Medical tablet 19 [place] roflumilast 0 Yes 500ug QD Take [address] (DALIRESP) 8-12 mcg by [facility] 500 mcg Tab 14:49: mouth Medic al tablet 19 daily. Center albuterol 0 Yes 1{puff} Inhale [address] HFA 8-12 puff by [facility] (VENTOLIN 14:49: mouth via Med ical HFA) 90 19 inhaler Center mcg/actuati every 6 on inhaler (six) hours as needed for Wheezing. dextroamphe 2019-0 Yes 20mg Q.5D Take [address] [facility] tamine-amph 8-12 by mouth 2 Niurka kes etamine 14:49: (two) Medical (ADDERALL) 19 times Center 20 mg Tab daily. tablet venlafaxine 0 Yes major 75mg Q.5D Take 75 mg [...] MG 14:49: daily. Medical tablet 19 Center pantoprazol 2018- 2020- No 40mg Take 40 mg [facility] 40 mg EC 03-06 0812 by mouth. ity of tablet 00:00: 04:59 [place] 00 :00 [facility] pantoprazol 2019-0 2020- No 40mg Take 40 mg [facility] e 40 mg EC 03-06 by mouth. ity of tablet 00:00: 04:59 [place] 00 :00 [facility] pantoprazol 2018-0 2020- No 40mg Take 40 mg [facility] e 40 mg EC 03-06 by mouth. ity of tablet 00:00: 04:59 [place] 00 :00 [facility] pantoprazol 2018-0 2020- No 40mg Take 40 mg [facility] e 40 mg EC 03-06 by mouth. ity of tablet 00:00: 04:59 [place] 00 :00 [facility] pantoprazol 2019-0 2020- No 40mg Take 40 mg [facility] e 40 mg EC 03-06 by mouth. ity of tablet 00:00: 04:59 [place] 00 :00 [facility] pantoprazol 2019-0 2020- No 40mg Take 40 mg [facility] e 40 mg EC 03-06 by mouth. ity of tablet 00:00: 04:59 [place] 00 :00 [facility] pantoprazol 2019-0 2020- No 40mg Take 40 mg [facility] e 40 mg EC 03-06 by mouth. ity of tablet 00:00: 04:59 [place] 00 :00 [facility] pantoprazol 2019-0 2020- No 40mg Take 40 mg [facility] e 40 mg EC 03-06 by mouth. ity of tablet 00:00: 04:59 [place] 00 :00 [facility] pantoprazol 2019-0 2020- No 40mg [...] mg Univers e 40 mg EC 03-06 08 by mouth. ity of tablet 00:00: 04:59 [...] of tablet 00:00: 04:59 [place] 00 :00 [facility] pantoprazol 2019-0 2020- No 40mg Take 40 mg [facility] e 40 mg EC 03-06 by mouth. ity of tablet 00:00: 04:59 [place] 00 :00 [facility] dextroamphe 2019-0 Yes [...] (ADDERALL 21 prescribed Medi feliciano ORAL) by [facility] but the patient has been counseled [...] (ADDERALL 21 prescribed Medi feliciano ORAL) by [facility] but the patient has been counseled [...] (ADDERALL 21 prescribed Medi feliciano ORAL) by [facility] but the patient has been counseled not to take it due the cardiovasc ular risks dextroamphe 2019-0 Yes Take by Uni vers tamine/amph 3-11 mouth. ity of etamine 00:05: Being [place] (ADDERALL 21 prescribed Medi feliciano ORAL) by [facility] but the patient has been counseled not to take it due the cardiovasc ular risks dextroamphe 2019-0 Yes Take by Uni vers tamine/amph 3-11 mouth. ity of etamine 00:05: Being [place] (ADDERALL 21 prescribed Medi feliciano ORAL) by [facility] but the patient has been counseled [...] (ADDERALL 21 prescribed Medi feliciano ORAL) by [facility] but the patient has been counseled not to take it due the cardiovasc ular risks dextroamphe 2019-0 Yes Take by Uni vers tamine/amph 3-11 mouth. ity of etamine 00:05: Being [place] (ADDERALL 21 prescribed Medi feliciano ORAL) by [facility] but the patient has been counseled not to take it due the cardiovasc ular risks dextroamphe 2019-0 Yes Take by Uni vers tamine/amph 3-11 mouth. ity of etamine 00:05: Being [place] (ADDERALL 21 prescribed Medi feliciano ORAL) by [facility] but the patient has been counseled not to take it due the cardiovasc ular risks dextroamphe 2019-0 Yes Take by Uni vers tamine/amph 3-11 mouth. ity of etamine 00:05: Being [place] (ADDERALL 21 prescribed Medi feliciano ORAL) by [facility] but the patient has been counseled not to take it due the cardiovasc ular risks dextroamphe 2019-0 Yes Take by Uni vers tamine/amph 3-11 mouth. ity of etamine 00:05: Being [place] (ADDERALL 21 prescribed Medi feliciano ORAL) by [facility] but the patient has been counseled not to take it due the cardiovasc ular risks dextroamphe 2019-0 Yes Take by Uni vers tamine/amph 3-11 mouth. ity of etamine 00:05: Being [place] (ADDERALL 21 prescribed Medi feliciano ORAL) by [facility] but the patient has been counseled not to take it due the cardiovasc ular risks dextroamphe 2019-0 Yes Take by Uni vers tamine/amph 3-11 mouth. ity of etamine 00:05: Being [place] (ADDERALL 21 prescribed Medi feliciano ORAL) by [facility] but the patient has been counseled not to take it due the cardiovasc ular risks dextroamphe 2019-0 Yes Take by Uni vers tamine/amph 3-11 mouth. ity of etamine 00:05: Being [place] (ADDERALL 21 prescribed Medi feliciano ORAL) by [facility] but the patient has been counseled not to take it due the cardiovasc ular risks dextroamphe 2019-0 Yes Take by Uni vers tamine/amph 3-11 mouth. ity of etamine 00:05: Being [place] (ADDERALL 21 prescribed Medi feliciano ORAL) by [facility] but the patient has been counseled not to take it due the cardiovasc ular risks dextroamphe 2019-0 Yes Take by Uni vers tamine/amph 3-11 mouth. ity of etamine 00:05: Being [place] (ADDERALL 21 prescribed Medi feliciano ORAL) by [facility] but the patient has been counseled not to take it due the cardiovasc ular risks carvedilol 2019-0 Yes 3.125mg Take 3.125 Univers 3.125 mg 3-07 mg by ity of tablet 20:27: mouth 2 [place] [address] ([facility]) Medical times [facility] daily with meals. carvedilol 2019-0 Yes 3.125mg Take 3.125 Univers 3.125 mg 3-07 mg by ity of tablet 20:27: mouth 2 [place] [address] ([facility]) Medical times [facility] daily with meals. carvedilol 2019-0 Yes 3.125mg Take 3.125 Univers 3.125 mg 3-07 mg by ity of tablet 20:27: mouth 2 [place] [address] ([facility]) Medical times [facility] daily with meals. carvedilol 2019-0 Yes 3.125mg Take 3.125 Univers 3.125 mg 3-07 mg by ity of tablet 20:27: mouth 2 [place] [address] (two) Medical times [facility] daily with meals. carvedilol 2019-0 Yes 3.125mg [...] by ity of tablet 20:27: mouth 2 [place] [address] (two) Medical times Branch daily with meals. carvedilol 2019-0 Yes 3.125mg Take 3.125 Univers 3.125 mg 3-07 mg by ity of tablet 20:27: mouth 2 [place] [address] (two) Medical times Branch daily with meals. carvedilol 2019-0 Yes 3.125mg Take 3.125 Univers 3.125 mg 3-07 mg by ity of tablet 20:27: mouth 2 [place] [address] (two) Medical times Branch daily with meals. [...] by ity of tablet 20:27: mouth 2 [place] [address] (two) Medical times Branch daily with meals. [...] by ity of tablet 20:27: mouth 2 [place] [address] (two) Medical times Branch daily with meals. carvedilol 2018-0 Yes 3.125mg Take 3.125 Univers 3.125 mg 3-07 mg by ity of tablet 20:27: mouth 2 [place] [address] (two) Medical times Branch daily with meals. [...] by ity of tablet 20:27: mouth 2 22 (two) Medical times Branch daily with meals. carvedilol 2019-0 Yes 3.125mg Take 3.125 Univers 3.125 mg 3-07 mg by ity of tablet 20:27: mouth 2 22 (two) Medical times Branch daily with meals. Venlafaxine 2018- Yes [id number] 75mg Take 1 [facility] 75 mg 3-07 tablet by ity of tablet 00:00: mouth 2 (two) Medical times Branch daily. Additional refills per psychiatry Venlafaxine 2018- Yes [id number] 75mg Take 1 [facility] 75 mg 3-07 tablet by ity of tablet 00:00: mouth (two) Medical times Branch daily. Additional refills per psychiatry Venlafaxine 2018- Yes [id number] 75mg Take 1 [facility] 75 mg 3-07 tablet by ity of tablet 00:00: mouth (two) Medical times Branch daily. Additional refills per psychiatry Venlafaxine 2018- Yes [id number] 75mg Take 1 [facility] 75 mg 3-07 tablet by ity of tablet 00:00: mouth (two) Medical times Branch daily. Additional refills per psychiatry Venlafaxine 2018-0 Yes [id number] 75mg Take 1 [facility] 75 mg 3-07 tablet by ity of tablet 00:00: mouth (two) Medical times Branch daily. Additional refills per psychiatry Venlafaxine 2018- Yes [id number] 75mg Take 1 [facility] 75 mg 3-07 tablet by ity of tablet 00:00: mouth (two) Medical times Branch daily. Additional refills per psychiatry Venlafaxine 2018-0 Yes [id number] 75mg Take 1 [facility] 75 mg 3-07 tablet by ity of tablet 00:00: mouth (two) Medical times Branch daily. Additional refills per psychiatry Venlafaxine 2018-0 Yes [id number] 75mg Take 1 [facility] 75 mg 3-07 tablet by ity of tablet 00:00: mouth 2 (two) Medical times Branch daily. Additional refills per psychiatry Venlafaxine 2018-0 Yes [id number] 75mg Take 1 [facility] 75 mg 3-07 tablet by ity of tablet 00:00: mouth 2 (two) Medical times Branch daily. Additional refills per psychiatry Venlafaxine 2019-0 Yes [id number] 75mg Take 1 [facility] 75 mg 3-07 tablet by ity of tablet 00:00: mouth (two) Medical times Branch daily. Additional refills per psychiatry Venlafaxine 2019-0 Yes [id number] 75mg Take 1 [facility] 75 mg 3-07 tablet by ity of tablet 00:00: mouth (two) Medical times Branch daily. Additional refills per psychiatry Venlafaxine 2019-0 Yes [id number] 75mg Take 1 [facility] 75 mg 3-07 tablet by ity of tablet 00:00: mouth (two) Medical times Branch daily. Additional refills per psychiatry Venlafaxine 2019-0 Yes [id number] 75mg Take 1 [facility] 75 mg 3-07 tablet by ity of tablet 00:00: mouth (two) Medical times Branch daily. Additional refills per psychiatry Venlafaxine 2019-0 Yes [id number] 75mg Take 1 [facility] 75 mg 3-07 tablet by ity of tablet 00:00: mouth (two) Medical times Branch daily. Additional refills per psychiatry Venlafaxine 2019-0 Yes [id number] 75mg Take 1 [facility] 75 mg 3-07 tablet by ity of tablet 00:00: mouth (two) Medical times Branch daily. Additional refills per psychiatry Venlafaxine 2019-0 Yes [id number] 75mg Take 1 [facility] 75 mg 3-07 tablet by ity of tablet 00:00: mouth (two) Medical times Branch daily. Additional refills per psychiatry Venlafaxine 2019-0 Yes [id number] 75mg Take 1 [facility] 75 mg 3-07 tablet by ity of tablet 00:00: mouth (two) Medical times Branch daily. Additional refills per psychiatry Venlafaxine 2019-0 Yes [id number] 75mg Take 1 [facility] 75 mg 3-07 tablet by ity of tablet 00:00: mouth (two) Medical times Branch daily. Additional refills per psychiatry Venlafaxine 2019-0 Yes [id number] 75mg Take 1 [facility] 75 mg 3-07 tablet by ity of tablet 00:00: mouth (two) Medical times Branch daily. Additional refills per psychiatry Venlafaxine 2019-0 Yes [id number] 75mg Take 1 [facility] 75 mg 3-07 tablet by ity of tablet 00:00: mouth 2 (two) Medical times Branch daily. Additional refills per psychiatry Venlafaxine 2018-0 Yes [id number] 75mg Take 1 [facility] 75 mg 3-07 tablet by ity of tablet 00:00: mouth 2 (two) Medical times Branch daily. Additional refills per psychiatry Venlafaxine 2018-0 Yes [id number] 75mg Take 1 [facility] 75 mg 3-07 tablet by ity of tablet 00:00: mouth 2 (two) Medical times Branch daily. Additional refills per psychiatry Venlafaxine 2018-0 Yes [id number] 75mg Take 1 [facility] 75 mg 3-07 tablet by ity of tablet 00:00: mouth (two) Medical times Branch daily. Additional refills per psychiatry Venlafaxine 2018-0 Yes [id number] 75mg Take 1 [facility] 75 mg 3-07 tablet by ity of tablet 00:00: mouth (two) Medical times Branch daily. Additional refills per psychiatry Venlafaxine 2018-0 Yes [id number] 75mg Take 1 [facility] 75 mg 3-07 tablet by ity of tablet 00:00: mouth (two) Medical times Branch daily. Additional refills per psychiatry Venlafaxine 2018-0 Yes [id number] 75mg Take 1 [facility] 75 mg 3-07 tablet by ity of tablet 00:00: mouth (two) Medical times Branch daily. Additional refills per psychiatry Venlafaxine 2018-0 Yes [id number] 75mg Take 1 [facility] 75 mg 3-07 tablet by ity of tablet 00:00: mouth (two) Medical times Branch daily. Additional refills per psychiatry Venlafaxine 2018-0 Yes [id number] 75mg Take 1 [facility] 75 mg 3-07 tablet by ity of tablet 00:00: mouth 2 (two) Medical times Branch daily. Additional refills per psychiatry Venlafaxine 2019-0 Yes [id number] 75mg Take 1 [facility] 75 mg 3-07 tablet by ity of tablet 00:00: mouth 2 (two) Medical times Branch daily. Additional refills per psychiatry Venlafaxine 2018-0 Yes [id number] 75mg Take 1 [facility] 75 mg 3-07 tablet by ity of tablet 00:00: mouth 2 [place] 00 (two) Medical times Branch daily. Additional refills per psychiatry Venlafaxine 2019-0 Yes [id number] 75mg Take 1 [facility] 75 mg 3-07 tablet by ity of tablet 00:00: mouth (two) Medical times Branch daily. Additional refills per psychiatry Venlafaxine 2019-0 Yes [id number] 75mg Take 1 [facility] 75 mg 3-07 tablet by ity of tablet 00:00: mouth (two) Medical times Branch daily. Additional refills per psychiatry Venlafaxine 2019-0 Yes [id number] 75mg Take 1 [facility] 75 mg 3-07 tablet by ity of tablet 00:00: mouth (two) Medical times Branch daily. Additional refills per psychiatry Venlafaxine 2019-0 Yes [id number] 75mg Take 1 [facility] 75 mg 3-07 tablet by ity of tablet 00:00: mouth (two) Medical times Branch daily. Additional refills per psychiatry Venlafaxine 2018-0 Yes [id number] 75mg Take 1 [facility] 75 mg 3-07 tablet by ity of tablet 00:00: mouth (two) Medical times Branch daily. Additional refills per psychiatry Venlafaxine 2018-0 Yes [id number] 75mg Take 1 [facility] 75 mg 3-07 tablet by ity of tablet 00:00: mouth () Medical times Branch daily. Additional refills per psychiatry Venlafaxine 2018-0 Yes [id number] 75mg Take 1 [facility] 75 mg 3-07 tablet by ity of tablet 00:00: mouth (two) Medical times Branch daily. Additional refills per psychiatry Venlafaxine 2019-0 Yes [id number] 75mg Take 1 [facility] 75 mg 3-07 tablet by ity of tablet 00:00: mouth (two) Medical times Branch daily. Additional refills per psychiatry Venlafaxine 2019-0 Yes [id number] 75mg Take 1 [facility] 75 mg 3-07 tablet by ity of tablet 00:00: mouth (two) Medical times Branch daily. Additional refills per psychiatry Venlafaxine 2019-0 Yes [id number] 75mg Take 1 [facility] 75 mg 3-07 tablet by ity of tablet 00:00: mouth (two) Medical times Branch daily. Additional refills per psychiatry Venlafaxine 2019-0 Yes [id number] 75mg Take 1 [facility] 75 mg 3-07 tablet by ity of tablet 00:00: mouth (two) Medical times Branch daily. Additional refills per psychiatry Venlafaxine 2019-0 Yes [id number] 75mg Take 1 [facility] 75 mg 3-07 tablet by ity of tablet 00:00: mouth 2 (two) Medical times Branch daily. Additional refills per psychiatry Venlafaxine 2019-0 Yes [id number] 75mg Take 1 [facility] 75 mg 3-07 tablet by ity of tablet 00:00: mouth 2 (two) Medical times Branch daily. Additional refills per psychiatry Venlafaxine 2018-0 Yes [id number] 75mg Take 1 [facility] 75 mg 3-07 tablet by ity of tablet 00:00: mouth (two) Medical times Branch daily. Additional refills per psychiatry Venlafaxine 2018-0 Yes [id number] 75mg Take 1 [facility] 75 mg 3-07 tablet by ity of tablet 00:00: mouth (two) Medical times Branch daily. Additional refills per psychiatry Venlafaxine 2018-0 Yes [id number] 75mg Take 1 [facility] 75 mg 3-07 tablet by ity of tablet 00:00: mouth (two) Medical times Branch daily. Additional refills per psychiatry Venlafaxine 2018-0 Yes [id number] 75mg Take 1 [facility] 75 mg 3-07 tablet by ity of tablet 00:00: mouth (two) Medical times Branch daily. Additional refills per psychiatry Venlafaxine 2018-0 Yes [id number] 75mg Take 1 [facility] 75 mg 3-07 tablet by ity of tablet 00:00: mouth (two) Medical times Branch daily. Additional refills per psychiatry Venlafaxine 2018-0 Yes [id number] 75mg Take 1 [facility] 75 mg 3-07 tablet by ity of tablet 00:00: mouth (two) Medical times Branch daily. Additional refills per psychiatry Venlafaxine 2019-0 Yes [id number] 75mg Take 1 [facility] 75 mg 3-07 tablet by ity of tablet 00:00: mouth 2 (two) Medical times Branch daily. Additional refills per psychiatry Venlafaxine 2019-0 Yes [id number] 75mg Take 1 [facility] 75 mg 3-07 tablet by ity of tablet 00:00: mouth 2 (two) Medical times Branch daily. Additional refills per psychiatry Venlafaxine 2018-0 Yes [id number] 75mg Take 1 [facility] 75 mg 3-07 tablet by ity of tablet 00:00: mouth 2 (two) Medical times Branch daily. Additional refills per psychiatry Venlafaxine 2018- Yes [id number] 75mg Take 1 [facility] 75 mg 3-07 tablet by ity of tablet 00:00: mouth 2 (two) Medical times Branch daily. Additional refills per psychiatry Venlafaxine 2018- Yes [id number] 75mg Take 1 [facility] 75 mg 3-07 tablet by ity of tablet 00:00: mouth 2 (two) Medical times Branch daily. Additional refills per psychiatry Venlafaxine 2018- Yes [id number] 75mg Take 1 [facility] 75 mg 3-07 tablet by ity of tablet 00:00: mouth 2 (two) Medical times Branch daily. Additional refills per psychiatry Venlafaxine 2018- Yes [id number] 75mg Take 1 [facility] 75 mg 3-07 tablet by ity of tablet 00:00: mouth (two) Medical times Branch daily. Additional refills per psychiatry Venlafaxine 2018- Yes [id number] 75mg Take 1 [facility] 75 mg 3-07 tablet by ity of tablet 00:00: mouth (two) Medical times Branch daily. Additional refills per psychiatry Venlafaxine 2018- Yes [id number] 75mg Take 1 [facility] 75 mg 3-07 tablet by ity of tablet 00:00: mouth 2 (two) Medical times Branch daily. Additional refills per psychiatry Venlafaxine 2018- Yes [id number] 75mg Take 1 [facility] 75 mg 3-07 tablet by ity of tablet 00:00: mouth 2 (two) Medical times Branch daily. Additional refills per psychiatry Venlafaxine 2018-0 Yes [id number] 75mg Take 1 [facility] 75 mg 3-07 [...] 2016-0 Yes 1mg Take 1 mg [facility] (XANAX) 1 4-05 by mouth 4 ity [...] 10 mg 00:00: daily. [place] tablet 00 [facility] predniSONE 2016-0 Yes 10mg Take 10 mg U nivers (DELTASONE) 3-22 by mouth ity of 10 mg 00:00: daily. [place] tablet 00 [facility] predniSONE 2016-0 Yes 10mg Take 10 mg U nivers (DELTASONE) 3-22 by mouth ity of 10 mg 00:00: daily. [place] tablet 00 [facility] predniSONE 2016-0 Yes 10mg Take 10 mg U nivers (DELTASONE) 3-22 by mouth ity of 10 mg 00:00: daily. [place] tablet 00 [facility] predniSONE 2016-0 Yes 10mg Take 10 mg U nivers (DELTASONE) 3-22 by mouth ity of 10 mg 00:00: daily. [place] tablet 00 [facility] predniSONE 2016-0 Yes 10mg Take 10 mg U nivers (DELTASONE) 3-22 by mouth ity of 10 mg 00:00: daily. [place] tablet 00 [facility] predniSONE 2016-0 Yes 10mg Take 10 mg U nivers (DELTASONE) 3-22 by mouth ity of 10 mg 00:00: daily. [place] tablet 00 [facility] predniSONE 2016-0 Yes 10mg Take 10 mg U nivers (DELTASONE) 3-22 by mouth ity of 10 mg 00:00: daily. [place] tablet 00 [facility] predniSONE 2016-0 Yes 10mg Take 10 mg U nivers (DELTASONE) 3-22 by mouth ity of 10 mg 00:00: daily. [place] tablet 00 [facility] predniSONE 2016-0 Yes 10mg Take 10 mg U nivers (DELTASONE) 3-22 by mouth ity of 10 mg 00:00: daily. [place] tablet 00 [facility] predniSONE 2016-0 Yes 10mg Take 10 mg U nivers (DELTASONE) 3-22 by mouth ity of 10 mg 00:00: daily. [place] tablet 00 [facility] predniSONE 2016-0 Yes 10mg Take 10 mg U nivers (DELTASONE) 3-22 by mouth ity of 10 mg 00:00: daily. [place] tablet 00 [facility] predniSONE 2016-0 Yes 10mg Take 10 mg U nivers (DELTASONE) 3-22 by mouth ity of 10 mg 00:00: daily. [place] tablet 00 [facility] predniSONE 2016-0 Yes 10mg Take 10 mg U nivers (DELTASONE) 3-22 by mouth ity of 10 mg 00:00: daily. [place] tablet 00 [facility] omeprazole Yes 40mg Take 40 mg U nivers (PRILOSEC) 3-08 by mouth ity o f 40 mg 00:00: daily. [place] capsule 00 [facility] omeprazole 2019- No 40mg Take 40 mg [facility] (PRILOSEC) 3- by mouth ity of 40 mg 00:00: 00:00 daily. [place] capsule 00 :00 [facility] omeprazole 2019- No 40mg Take 40 mg [facility] (PRILOSEC) 3- by mouth ity of 40 mg 00:00: 00:00 daily. [place] capsule 00 :00 [facility] 0 Yes 250ug Take 250 Univ ers 500 mcg 3-07 mcg by ity of tablet 00:00: mouth [place] 00 daily. [facility] 0 Yes 250ug Take 250 Univ ers 500 mcg 3-07 mcg by ity of tablet 00:00: mouth [place] 00 daily. [facility] 0 Yes 1{tbl} Take 1 Unive rs 500 mcg 3-07 tablet by ity of tablet 00:00: mouth [place] 00 daily. [facility] 0 Yes 250ug Take 250 Univ ers 500 mcg 3-07 mcg by ity of tablet 00:00: mouth [place] 00 daily. [facility] 0 Yes 250ug Take 250 Univ ers 500 mcg 3-07 mcg by ity of tablet 00:00: mouth [place] 00 daily. [facility] 2015-0 Yes 250ug Take 250 Univ ers 500 mcg 3-07 mcg by ity of tablet 00:00: mouth [place] 00 daily. [facility] 0 Yes 1{tbl} Take 1 Unive rs 500 mcg 3-07 tablet by ity of tablet 00:00: mouth [place] 00 daily. [facility] 2015-0 Yes 250ug Take 250 Univ ers 500 mcg 3-07 mcg by ity of tablet 00:00: mouth [place] 00 daily. [facility] 2015-0 Yes 250ug Take 250 Univ ers 500 mcg 3-07 mcg by ity of tablet 00:00: mouth [place] 00 daily. [facility] 2015-0 Yes 250ug Take 250 Univ ers 500 mcg 3-07 mcg by ity of tablet 00:00: mouth [place] 00 daily. [facility] Yes 250ug Take 250 Univ ers 500 mcg 3-07 mcg by ity of tablet 00:00: mouth [place] 00 daily. [facility] 0 Yes 1{tbl} Take 1 Unive rs 500 mcg 3-07 tablet by ity of tablet 00:00: mouth [place] 00 daily. [facility] 0 Yes 1{tbl} Take 1 Unive rs 500 mcg 3-07 tablet by ity of tablet 00:00: mouth [place] 00 daily. [facility] Yes 1{tbl} Take 1 Unive rs 500 mcg 3-07 tablet by ity of tablet 00:00: mouth [place] 00 daily. [facility] Yes 1{tbl} Take 1 Unive rs 500 mcg 3-07 tablet by ity of tablet 00:00: mouth [place] 00 daily. [facility] Yes 1{tbl} Take 1 Unive rs 500 mcg 3-07 tablet by ity of tablet 00:00: mouth [place] 00 daily. [facility] Yes 1{tbl} Take 1 Unive rs 500 mcg 3-07 tablet by ity of tablet 00:00: mouth [place] 00 daily. [facility] Yes 1{tbl} Take 1 Unive rs 500 mcg 3-07 tablet by ity of tablet 00:00: mouth [place] 00 daily. [facility] 0 Yes 1{tbl} Take 1 Unive rs 500 mcg 3-07 tablet by ity of tablet 00:00: mouth [place] 00 daily. [facility] Yes 1{tbl} Take 1 Unive rs 500 mcg 3-07 tablet by ity of tablet 00:00: mouth [place] 00 daily. [facility] 0 Yes 1{tbl} Take 1 Unive rs 500 mcg 3-07 tablet by ity of tablet 00:00: mouth [place] 00 daily. [facility] 0 Yes 1{tbl} Take 1 Unive rs 500 mcg 3-07 tablet by ity of tablet 00:00: mouth [place] 00 daily. [facility] Yes 1{tbl} Take 1 Unive rs 500 mcg 3-07 tablet by ity of tablet 00:00: mouth [place] 00 daily. [facility] 2016-0 Yes 1{tbl} Take 1 Unive rs 500 mcg 3-07 tablet by ity of tablet 00:00: mouth [place] 00 daily. [facility] 2016-0 Yes 1{tbl} Take 1 Unive rs 500 mcg 3-07 tablet by ity of tablet 00:00: mouth [place] 00 daily. [facility] 2015-0 Yes 1{tbl} Take 1 Unive rs 500 mcg 3-07 tablet by ity of tablet 00:00: mouth [place] 00 daily. [facility] 0 Yes 1{tbl} Take 1 Unive rs 500 mcg 3-07 tablet by ity of tablet 00:00: mouth [place] 00 daily. [facility] 0 Yes 1{tbl} Take 1 Unive rs 500 mcg 3-07 tablet by ity of tablet 00:00: mouth [place] 00 daily. [facility] 2015-0 Yes 1{tbl} Take 1 Unive rs 500 mcg 3-07 tablet by ity of tablet 00:00: mouth [place] 00 daily. [facility] 0 Yes 1{tbl} Take 1 Unive rs 500 mcg 3-07 tablet by ity of tablet 00:00: mouth [place] 00 daily. [facility] 0 Yes 1{tbl} Take 1 Unive rs 500 mcg 3-07 tablet by ity of tablet 00:00: mouth [place] 00 daily. [facility] 2015-0 Yes 1{tbl} Take 1 Unive rs 500 mcg 3-07 tablet by ity of tablet 00:00: mouth [place] 00 daily. [facility] 0 Yes 250ug Take 250 Univ ers 500 mcg 3-07 mcg by ity of tablet 00:00: mouth [place] 00 daily. [facility] 0 Yes 250ug Take 250 Univ ers 500 mcg 3-07 mcg by ity of tablet 00:00: mouth [place] 00 daily. [facility] 0 Yes 250ug Take 250 Univ ers 500 mcg 3-07 mcg by ity of tablet 00:00: mouth [place] 00 daily. [facility] 0 Yes 250ug Take 250 Univ ers 500 mcg 3-07 mcg by ity of tablet 00:00: mouth [place] 00 daily. [facility] 2016-0 Yes 250ug Take 250 Univ ers 500 mcg 3-07 mcg by ity of tablet 00:00: mouth [place] 00 daily. [facility] 2016-0 Yes 250ug Take 250 Univ ers 500 mcg 3-07 mcg by ity of tablet 00:00: mouth [place] 00 daily. [facility] 2016-0 Yes 1{tbl} Take 1 Unive rs 500 mcg 3-07 tablet by ity of tablet 00:00: mouth [place] 00 daily. [facility] 2016-0 Yes 250ug Take 250 Univ ers 500 mcg 3-07 mcg by ity of tablet 00:00: mouth [place] 00 daily. [facility] 2015-0 Yes 250ug Take 250 Univ ers 500 mcg 3-07 mcg by ity of tablet 00:00: mouth [place] 00 daily. [facility] 2016-0 Yes 250ug Take 250 Univ ers 500 mcg 3-07 mcg by ity of tablet 00:00: mouth [place] 00 daily. [facility] 2016-0 Yes 250ug Take 250 Univ ers 500 mcg 3-07 mcg by ity of tablet 00:00: mouth [place] 00 daily. [facility] 2016-0 Yes 250ug Take 250 Univ ers 500 mcg 3-07 mcg by ity of tablet 00:00: mouth [place] 00 daily. [facility] 2016-0 Yes 250ug Take 250 Univ ers 500 mcg 3-07 mcg by ity of tablet 00:00: mouth [place] 00 daily. [facility] 2016-0 Yes 250ug Take 250 Univ ers 500 mcg 3-07 mcg by ity of tablet 00:00: mouth [place] 00 daily. [facility] 2016-0 Yes 250ug Take 250 Univ ers 500 mcg 3-07 mcg by ity of tablet 00:00: mouth [place] 00 daily. [facility] 2016-0 Yes 250ug Take 250 Univ ers 500 mcg 3-07 mcg by ity of tablet 00:00: mouth [place] 00 daily. [facility] 2016-0 Yes 1{tbl} Take 1 Unive rs 500 mcg 3-07 tablet by ity of tablet 00:00: mouth [place] 00 daily. [facility] 2016-0 Yes 250ug Take 250 Univ ers 500 mcg 3-07 mcg by ity of tablet 00:00: mouth [place] 00 daily. [facility] 2015-0 Yes 250ug Take 250 Univ ers 500 mcg 3-07 mcg by ity of tablet 00:00: mouth [place] 00 daily. [facility] 2015-0 Yes 250ug Take 250 Univ ers 500 mcg 3-07 mcg by ity of tablet 00:00: mouth [place] 00 daily. [facility] 2015-0 Yes 250ug Take 250 Univ ers 500 mcg 3-07 mcg by ity of tablet 00:00: mouth [place] 00 daily. [facility] 2015-0 Yes 1{tbl} Take 1 Unive rs 500 mcg 3-07 tablet by ity of tablet 00:00: mouth [place] 00 daily. [facility] 2015-0 Yes 250ug Take 250 Univ ers 500 mcg 3-07 mcg by ity of tablet 00:00: mouth [place] 00 daily. [facility] 2015-0 Yes 250ug Take 250 Univ ers 500 mcg 3-07 mcg by ity of tablet 00:00: mouth [place] 00 daily. [facility] 2015-0 Yes 250ug Take 250 Univ ers 500 mcg 3-07 mcg by ity of tablet 00:00: mouth [place] 00 daily. [facility] 2015-0 Yes 1{tbl} Take 1 Unive rs 500 mcg 3-07 tablet by ity of tablet 00:00: mouth [place] 00 daily. [facility] 2015-0 Yes 250ug Take 250 Univ ers 500 mcg 3-07 mcg by ity of tablet 00:00: mouth [place] 00 daily. [facility] 2015-0 Yes 250ug Take 250 Univ ers 500 mcg 3-07 mcg by ity of tablet 00:00: mouth [place] [address] [facility] 2015-0 Yes 1{puff} Inhale 1 Univer s ELLIPTA 2-02 Puff ity of 100-25 00:00: daily. [place] mcg/dose 00 [facility] 2015-0 Yes 1{puff} Inhale 1 Univer s ELLIPTA 2-02 Puff ity of 100-25 00:00: daily. [place] mcg/dose 00 [facility] 2015-0 Yes 1{puff} Inhale 1 Univer s ELLIPTA 2-02 Puff ity of 100-25 00:00: daily. [place] mcg/dose 00 [facility] Yes 1{puff} Inhale 1 Univer s ELLIPTA 2-02 Puff ity of 100-25 00:00: daily. [place] mcg/dose 00 [facility] Yes 1{puff} Inhale 1 Univer s ELLIPTA 2-02 Puff ity of 100-25 00:00: daily. [place] mcg/dose 00 [facility] Yes 1{puff} Inhale 1 Univer s ELLIPTA 2-02 Puff ity of 100-25 00:00: daily. [place] mcg/dose 00 [facility] Yes 1{puff} Inhale 1 Univer s ELLIPTA 2-02 Puff ity of 100-25 00:00: daily. [place] mcg/dose 00 [facility] Yes 1{puff} Inhale 1 Univer s ELLIPTA 2-02 Puff ity of 100-25 00:00: daily. [place] mcg/dose 00 [facility] Yes 1{puff} Inhale 1 Univer s ELLIPTA 2-02 Puff ity of 100-25 00:00: daily. [place] mcg/dose 00 [facility] Yes 1{puff} Inhale 1 Univer s ELLIPTA 2-02 Puff ity of 100-25 00:00: daily. [place] mcg/dose 00 [facility] Yes 1{puff} Inhale 1 Univer s ELLIPTA 2-02 Puff ity of 100-25 00:00: daily. [place] mcg/dose 00 [facility] Yes 1{puff} Inhale 1 Univer s ELLIPTA 2-02 Puff ity of 100-25 00:00: daily. [place] mcg/dose 00 [facility] Yes 1{puff} Inhale 1 Univer s ELLIPTA 2-02 Puff ity of 100-25 00:00: daily. [place] mcg/dose 00 [facility] Yes 1{puff} Inhale 1 Univer [...] Immunizations Ordered Filled Immunization Date Status Comments [facility] e Immunization Name Name Influenza Virus 2019-04-07 Completed Universit y of Vaccine 00:00:00 [facility] [place] [facility] Influenza Virus 2019-04-07 Completed Universit y of Vaccine 00:00:00 [facility] [place] [facility] Influenza Virus 2019-04-07 Completed Universit y of Vaccine 00:00:00 [facility] [place] [facility] Influenza Virus 2019-04-07 Completed Universit y of Vaccine 00:00:00 [facility] [place] [facility] Influenza Virus 2019-04-07 Completed Universit y of Vaccine 00:00:00 [facility] [place] [facility] Influenza Virus 2019-04-07 Completed Universit y of Vaccine 00:00:00 [facility] [place] [facility] Influenza Virus 2019-04-07 Completed Universit y of Vaccine 00:00:00 [facility] [place] [facility] Influenza Virus 2019-04-07 Completed Universit y of Vaccine 00:00:00 [facility] [place] [facility] Influenza Virus 2019-04-07 Completed Universit y of Vaccine 00:00:00 [facility] [place] [facility] Influenza Virus 2019-04-07 Completed Universit y of Vaccine 00:00:00 [facility] [place] [facility] Influenza Virus 2019-04-07 Completed Universit y of Vaccine 00:00:00 [facility] [place] [facility] Influenza Virus 2019-04-07 Completed Universit y of Vaccine 00:00:00 [facility] [place] [facility] Influenza Virus 2019-04-07 Completed Universit y of Vaccine 00:00:00 [facility] [place] [facility] Influenza Virus 2019-04-07 Completed Universit y of Vaccine 00:00:00 [facility] [place] [facility] Influenza Virus 2019-04-07 Completed Universit y of Vaccine 00:00:00 [facility] [place] [facility] Influenza Virus 2019-04-07 Completed Universit y of Vaccine 00:00:00 [facility] [place] [facility] Influenza Virus 2019-04-07 Completed Universit y of Vaccine 00:00:00 [facility] [place] [facility] Influenza Virus 2019-04-07 Completed Universit y of Vaccine 00:00:00 [facility] [place] [facility] Influenza Virus 2019-04-07 Completed Universit y of Vaccine 00:00:00 [facility] [place] [facility] Influenza Virus 2019-04-07 Completed Universit y of Vaccine 00:00:00 [facility] [place] [facility] Influenza Virus 2019-04-07 Completed Universit y of Vaccine 00:00:00 [facility] [place] [facility] Influenza Virus 2019-04-07 Completed Universit y of Vaccine 00:00:00 [facility] [place] [facility] Influenza Virus 2019-04-07 Completed Universit y of Vaccine 00:00:00 [facility] [place] [facility] Influenza Virus 2019-04-07 Completed Universit y of Vaccine 00:00:00 [facility] [place] [facility] Influenza Virus 2019-04-07 Completed Universit y of Vaccine 00:00:00 [facility] [place] [facility] Influenza Virus 2019-04-07 Completed Universit y of Vaccine 00:00:00 [facility] [place] [facility] Influenza Virus 2019-04-07 Completed Universit y of Vaccine 00:00:00 [facility] [place] [facility] Influenza Virus 2019-04-07 Completed Universit y of Vaccine 00:00:00 [facility] [place] [facility] Influenza Virus 2019-04-07 Completed Universit y of Vaccine 00:00:00 [facility] [place] [facility] Influenza Virus 2019-04-07 Completed Universit y of Vaccine 00:00:00 [facility] [place] [facility] Influenza Virus 2019-04-07 Completed Universit y of Vaccine 00:00:00 [facility] [place] [facility] Influenza Virus 2019-04-07 Completed Universit y of Vaccine 00:00:00 [facility] [place] [facility] Influenza Virus 2019-04-07 Completed Universit y of Vaccine 00:00:00 [facility] [place] [facility] Influenza Virus 2019-04-07 Completed Universit y of Vaccine 00:00:00 [facility] [place] [facility] Influenza Virus 2019-04-07 Completed Universit y of Vaccine 00:00:00 [facility] [place] [facility] Influenza Virus 2019-04-07 Completed Universit y of Vaccine 00:00:00 [facility] [place] [facility] Influenza Virus 2019-04-07 Completed Universit y of Vaccine 00:00:00 [facility] [place] [facility] Influenza Virus 2019-04-07 Completed Universit y of Vaccine 00:00:00 [facility] [place] [facility] Influenza Virus 2019-04-07 Completed Universit y of Vaccine 00:00:00 [facility] [place] [facility] Influenza Virus 2019-04-07 Completed Universit y of Vaccine 00:00:00 [facility] [place] [facility] Influenza Virus 2019-04-07 Completed Universit y of Vaccine 00:00:00 [facility] [place] [facility] Influenza Virus 2019-04-07 Completed Universit y of Vaccine 00:00:00 [facility] [place] [facility] Influenza Virus 2019-04-07 Completed Universit y of Vaccine 00:00:00 [facility] [place] [facility] Influenza Virus 2019-04-07 Completed Universit y of Vaccine 00:00:00 [facility] [place] [facility] Influenza Virus 2019-04-07 Completed Universit y of Vaccine 00:00:00 [facility] [place] [facility] Vital Signs Vital Name Observation Time Observation Value Comments Source Systolic blood 2020-11-20 16:07:00 143 mm[Hg] Univer sity of pressure [facility] [place] [facility] Diastolic blood 2020-11-20 16:07:00 77 mm[Hg] Unive rsity of pressure [facility] [place] [facility] Heart rate 2020-11-20 16:07:00 114 /min Universi ty of [facility] [place] [facility] Body temperature 2020-11-20 16:07:00 36.39 Geovanna Univ ersity of [facility] [place] [facility] Body height 2020-11-20 16:07:00 152.4 cm Universi ty of [facility] [place] [facility] Body weight 2020-11-20 16:07:00 52.844 kg Universi ty of [facility] [place] [facility] BMI 2020-11-20 16:07:00 22.75 kg/m2 Universi ty of [facility] [place] [facility] Oxygen saturation in 2020-11-20 16:07:00 96 /min University of Arterial blood by [facility] [place] [facility] Pulse oximetry Branch Systolic blood 2020-03-29 05:00:00 165 mm[Hg] Univer sity of pressure [facility] [place] [facility] Diastolic blood 2020-03-29 05:00:00 88 mm[Hg] Unive rsity of pressure [facility] [place] [facility] Heart rate 2020-03-29 05:00:00 82 /min Universi ty of [facility] [place] [facility] Respiratory rate 2020-03-29 05:00:00 20 /min Univ ersity of [facility] [place] [facility] Oxygen saturation in 2020-03-29 05:00:00 96 /min University of Arterial blood by [facility] [place] [facility] Pulse oximetry Branch Body temperature 2020-03-29 01:46:00 37.56 Geovanna Univ ersity of [facility] Body weight 2020-03-29 01:46:00 51.71 kg Universi ty of [facility] [place] [facility] BMI 2020-03-29 01:46:00 22.26 kg/m2 Universi ty of [facility] Systolic blood 2020-03-29 05:00:00 165 mm[Hg] Univer sity of pressure [facility] Diastolic blood 2020-03-29 05:00:00 88 mm[Hg] Unive rsity of pressure [facility] Heart rate 2020-03-29 05:00:00 82 /min Universi ty of [place] [facility] Respiratory rate 2020-03-29 05:00:00 20 /min Univ ersity of [facility] Oxygen saturation in 2020-03-29 05:00:00 96 /min University of Arterial blood by [facility] [place] [facility] Pulse oximetry Branch Body temperature 2020-03-29 01:46:00 [...] 96 /min University of Arterial blood by [facility] [place] [facility] Pulse oximetry Branch Body weight 2020-02-22 08:18:00 [...] 96 /min University of Arterial blood by [facility] [place] [facility] Pulse oximetry Branch Body weight 2020-02-22 08:18:00 [...] 95 /min University of Arterial blood by [facility] [place] [facility] Pulse oximetry Branch Body temperature 2020-02-14 20:13:00 [...] 95 /min University of Arterial blood by [facility] [place] [facility] Pulse oximetry Branch Systolic blood 2020-01-29 16:22:00 [...] 100 /min University of Arterial blood by [place] [facility] Pulse oximetry Branch Systolic blood 2020-01-03 [...] 94 /min [facility] Arterial blood by [place] [facility] Pulse oximetry Branch Body temperature 2020-01-03 [...] 94 /min University of Arterial blood by [employer] [facility] Pulse oximetry Branch Systolic blood 2019-12-08 12:42:00 169 mm[Hg] Univer sity of pressure [facility] Diastolic blood 2019-12-08 12:42:00 76 mm[Hg] Unive rsity of pressure [facility] [place] [facility] Body temperature 2019-12-08 12:42:00 36.78 Geovanna Univ ersity of [facility] [place] [facility] Body height 2019-12-05 16:38:00 154.9 cm [facility] Body weight 2019-12-05 16:38:00 54.885 kg Universi ty of [facility] BMI 2019-12-05 16:38:00 22.86 kg/m2 Universi ty of [facility] Systolic blood 2019-09-20 20:34:00 164 mm[Hg] Univer sity of pressure [facility] Diastolic blood 2019-09-20 20:34:00 76 mm[Hg] Unive rsity of pressure [facility] [place] [facility] Heart rate 2019-09-20 20:34:00 80 /min Universi ty of [facility] [place] [facility] Body temperature 2019-09-20 20:29:00 36.67 Geovanna Univ ersity of [facility] [place] [facility] Respiratory rate 2019-09-20 20:29:00 20 /min Univ ersity of [facility] [place] [facility] Body height 2019-09-20 20:29:00 157.5 cm Universi ty of [facility] [place] [facility] Body weight 2019-09-20 20:29:00 52.345 kg Universi ty of [facility] BMI 2019-09-20 20:29:00 21.11 kg/m2 Universi ty of [facility] [place] [facility] Oxygen saturation in 2019-09-20 20:29:00 98 /min University Arterial blood by [facility] [place] [facility] Pulse oximetry Branch Systolic blood 2019-08-31 22:02:00 159 mm[Hg] Univer sity of pressure [facility] [place] [facility] Diastolic blood 2019-08-31 22:02:00 79 mm[Hg] Unive rsity of pressure [facility] [place] [facility] Heart rate 2019-08-31 22:02:00 101 /min Universi ty of [facility] [place] [facility] Body temperature 2019-08-31 22:02:00 36.56 Geovanna Univ ersity of [facility] [place] [facility] Body height 2019-08-31 22:02:00 153.7 cm Universi ty of [facility] [place] [facility] Body weight 2019-08-31 22:02:00 52.617 kg Universi ty of [facility] BMI 2019-08-31 22:02:00 22.28 kg/m2 Universi ty of [place] [facility] Systolic blood 2019-03-29 19:16:00 157 mm[Hg] Univer sity of pressure [facility] Diastolic blood 2019-03-29 19:16:00 71 mm[Hg] Unive rsity of pressure [facility] Heart rate 2019-03-29 19:16:00 114 /min Universi ty of [place] [facility] Body temperature 2019-03-29 19:16:00 36.17 Geovanna Univ ersity of [facility] Respiratory rate 2019-03-29 19:16:00 22 /min Univ ersity of [place] [facility] Body weight 2019-03-29 19:16:00 52.98 kg Universi ty of [place] [facility] BMI 2019-03-29 19:16:00 18.85 kg/m2 Universi ty of [facility] Systolic blood 2019-03-23 19:02:00 141 mm[Hg] Univer sity of pressure [facility] Diastolic blood 2019-03-23 19:02:00 69 mm[Hg] Unive rsity of pressure [facility] Heart rate 2019-03-23 19:02:00 80 /min Universi ty of [place] [facility] Body temperature 2019-03-23 19:02:00 36.83 Geovanna Univ ersity of [facility] Respiratory rate 2019-03-23 19:02:00 18 /min Univ ersity of [facility] Body height 2019-03-23 19:02:00 167.6 cm Universi ty of [place] [facility] Body weight 2019-03-23 19:02:00 52.527 kg Universi ty of [place] [facility] BMI 2019-03-23 19:02:00 18.69 kg/m2 [facility] [place] [facility] Systolic blood 2019-03-16 21:40:00 141 mm[Hg] Univer sity of pressure [facility] Diastolic blood 2019-03-16 21:40:00 70 mm[Hg] Unive rsity of pressure [facility] Heart rate 2019-03-16 21:40:00 110 /min Universi ty of [place] [facility] Body temperature 2019-03-16 20:57:00 37.22 Geovanna Univ ersity of [facility] Body height 2019-03-16 20:57:00 154.9 cm Universi ty of [place] [facility] Body weight 2019-03-16 20:57:00 54.432 kg Universi ty of [place] [facility] BMI 2019-03-16 20:57:00 22.67 kg/m2 [facility] Procedures Procedure Date / Time Performing Source Performed Clinician EXTERNAL PROVIDER RECORDS 2020-12-[address] [facility] sity of 05:01:00 Unassigned, No [facility] AUTHORIZATION TO RELEASE PHI TO 2020-11-20 [facility] 05:01:00 Unassigned, No [facility] URINALYSIS 2020-03-29 Maribell Foster [place] of 03:09:00 [facility] [place] [facility] THYROID STIMULATING HORMONE 2020-03-29 Maribell Foster [facility] ersity of 03:04:00 [facility] [place] [facility] COMP. METABOLIC PANEL ([id number]) 2020-03-29 Maribell Foster Un iversity of 03:04:00 [facility] [place] [facility] CBC WITH DIFF 2020-03-29 Maribell Foster [place] of 03:04:00 [facility] [place] [facility] GLYCOSYLATED HEMOGLOBIN (A1C) 2020-03-29 Maribell Foster Un iversity of 03:04:00 [facility] [place] [facility] ECHO ROUTINE W/DOPPLER COLOR 2020-02-22 Rebecca Cantu [facility] versity of 20:06:52 [facility] [place] TROPONIN I 2020-02-22 [facility] of 12:39:00 [facility] [place] TROPONIN I 2020-02-22 [facility] of 05:09:00 [facility] IRON PANEL 2020-02-22 [facility] of 05:09:00 [facility] [place] GLYCOSYLATED HEMOGLOBIN (A1C) 2020-02-22 Pepe Rebecca Un iversity of 05:09:00 [facility] TROPONIN I 2020-02-22 [facility] of 05:08:00 [facility] BASIC METABOLIC PANEL (NA, K, CL, 2020-02-22 [facility] of CO2, GLUCOSE, BUN, CREATININE, CA) 05:08:00 [facility] LIPID PANEL (36116)(TOTAL 2020-02-[address] [facility] sitdoug of CHOLESTEROL, TRIGLYCERIDES, HDL) 05:08:00 [facility] CBC WITH DIFF 2020-02-22 [facility] of 05:08:00 [facility] VITAMIN B12, LEVEL 2020-02-22 Matilde Roman [place] of 05:05:00 [facility] VITAMIN D, 25-OH 2020-02-22 Jessie [facility] [address] of 05:05:00 [facility] PROCALCITONIN 2020-02-22 Jessie [facility] [address] of 05:05:00 [facility] FECAL LEUKOCYTES 2020-02-22 Jessie [facility] [address] of 04:46:00 [facility] URINALYSIS 2020-02-22 Pe[facility] of 04:34:00 [facility] LEGIONELLA URINARY ANTIGEN TST 2020-02-22 Pepe [facility] niversity of 04:34:00 [facility] PNEUMOCOCCAL ANTIGEN 2020-02-22 Pe[facility] of 04:33:00 [facility] CLOSTRIDIUM DIFFICILE TOXIN 2020-02-22 [facility] ersity of 03:15:00 [facility] XR ABDOMEN 2 VW 2020-02-22 Pepe [facility] of 01:50:00 [facility] EKG-12 LEAD 2020-02-21 [facility] of 18:10:08 Unassigned, No [facility] EKG-12 LEAD 2020-02-21 Titi Hahn [place] of 18:02:02 [facility] LACTIC ACID WHOLE BLOOD 2020-02-21 Titi Hahn [facility] ty of 17:01:00 [facility] PHOSPHORUS 2020-02-21 [facility] 17:00[facility]00 [facility] LIPASE 2020-02-[address] [facility] of 17:00:00 [facility] MAGNESIUM 2020-02-21 Jessie [facility] [address] of 17:00:00 [facility] FERRITIN SERUM 2020-02-21 Pe[facility] of 17:00:00 [facility] TROPONIN I 2020-02-[address] [facility] of 17:00:00 [facility] COMP. METABOLIC PANEL (40523) 2020-02-21 Titi Hahn iversity of 17:00:00 [facility] LIPID PANEL (16200)(TOTAL 2020-02-[address] [facility] sity of CHOLESTEROL, TRIGLYCERIDES, HDL) 17:00:00 [facility] XR CHEST 1 VW 2020-02-21 Titi Hahn of 15:31:44 [facility] COVID-19 (ID NOW RAPID TESTING) 2020-02-21 [facility] 15:23:00 [facility] CBC WITH DIFF 2020-02-21 Hahn, [facility] of 15:19:00 [facility] CONSENT/REFUSAL FOR DIAGNOSIS AND 2020-02-21 [facility] 14:24:00 Unassigned, No [facility] Branch XR CHEST 1 VW 2020-02-14 Richard [facility] of 22:30:31 [facility] LACTIC ACID WHOLE BLOOD 2020-02-14 [place] [facility] ty of 22:23:00 [facility] URINALYSIS 2020-02-14 [facility] of 21:49:00 [facility] UNILATERAL VENOUS DUPLEX LOWER 2020-02-14 Richard [facility] niversity of EXTREMITY BY VASCULAR LAB 21:23:18 [facility] LIPASE 2020-02-[address] [facility] of 20:45:00 [facility] TROPONIN I 2020-02-14 Hahn, [facility] of 20:45:00 [facility] THYROID STIMULATING HORMONE 2020-02-14 Richard [facility] ersity of 20:45:00 [facility] COMP. METABOLIC PANEL (29247) 2020-02-14 Titi Hanh iversity of 20:45:00 [facility] CBC WITH DIFF 2020-02-[address] [facility] of 20:45:00 [facility] PROTHROMBIN TIME / INR 2020-02-14 [facility] of 20:45:00 [facility] D-DIMER 2020-02-14 [facility] of 20:45:00 [facility] ACTIVATED PARTIAL THRMPLAS NAVDEEP 2020-02-14 Titi Hahn niversity of 20:45:00 [facility] EKG-12 LEAD 2020-02-14 Hahn, [facility] of 20:43:52 [facility] EKG-12 LEAD 2020-02-14 Hahn, [facility] of 20:13:40 [facility] CT ABDOMEN PELVIS W CONTRAST 2020-01-03 Sb Canela versity of 18:56:39 [facility] Branch LIPASE 2020-01-03 Sb Canela of 17:28:00 [facility] HEPATIC FUNCTION PANEL (31042) 2020-01-03 Sb Canela niversity of (ALB,T.PRO,BILI 17:28:00 [place] [facility] T,BU/BC,ALT,AST,ALK [facility] BASIC METABOLIC PANEL (NA, K, CL, 2020-01-03 Merritt Canela [facility] of CO2, GLUCOSE, BUN, CREATININE, CA) 17:28:00 [facility] CBC WITH DIFFERENTIAL 2020-01-03 Sb Canela [place] of 17:28:00 [facility] PROTHROMBIN TIME / INR 2020-01-03 Sb Canelait y of 17:28: [facility] ACTIVATED PARTIAL THRMPLAS NAVDEEP 2020-01-03 Sb Canela U niversity of 17:28 [facility] URINALYSIS 2020-01-03 Sb Canela [place] of 17:28: [facility] LACTIC ACID WHOLE BLOOD 2020-01-03 Sb Canelai ty of 17:: [facility] NOTICE OF PRIVACY PRACTICES 2020-01-03 [facility] ersity of 16:34:44 Unassigned, No [facility] CONSENT/REFUSAL FOR DIAGNOSIS AND 2020-01-03 [facility] TREATMENT 16:34:21 Unassigned, No [facility] BASIC METABOLIC PANEL (NA, K, CL, 2019-12-06 Navid De Los [facility] of CO2, GLUCOSE, BUN, CREATININE, CA) 07:28:00 [facility] CBC WITH DIFFERENTIAL 2019-12-06 Magali [facility] of 07:28:00 [facility] FL BARIUM SWALLOW ESOPHAGUS 2019-12-05 [facility] of 20:07:00 [facility] PHOSPHORUS 2019-12-05 Magali [facility] of 15:42:00 [facility] MAGNESIUM 2019-12-05 Magali [facility] of 15:42:00 [facility] BASIC METABOLIC PANEL (NA, K, CL, 2019-12-05 Navid [facility] of CO2, GLUCOSE, BUN, CREATININE, CA) 15:42:00 [facility] CBC WITH DIFFERENTIAL 2019-12-05 Magali [facility] of 15:42:00 [facility] LAPAROSCOPIC GLORY FUNDOPLICATION 2019-12-05 Jerald Sims [place] of 11:50:00 [facility] ESOPHAGOGASTRODUODENOSCOPY 2019-12-05 Bobby Sims Uni versity of 11:50:00 [facility] CONSENT/REFUSAL FOR DIAGNOSIS AND 2019-12-05 Doctor University of TREATMENT 10:43:31 Unassigned, No [facility] ASSIGNMENT OF BENEFITS 2019-12-05 Doctor Universit y of 10:42:54 Unassigned, No [facility] HOME HEALTH - OTHER 2019-09-01 [facility] o f 06:01:00 Unassigned, No [facility] HOME HEALTH - OTHER 2019-08-24 [facility] o f 06:01:00 Unassigned, No [facility] HOME HEALTH - OTHER 2019-08-11 [facility] o f 06:01:00 Unassigned, No [facility] HOME HEALTH - OTHER 2019-08-03 [facility] o f 06:01:00 Unassigned, No [facility] HOME HEALTH - OTHER 2019-07-18 [facility] o f 06:01:00 Unassigned, No [facility] HOME HEALTH 485 2019-07-12 Doctor [place] of 06:01:00 Unassigned, No [facility] HOME HEALTH - OTHER 2019-07-03 [facility] o f 06:01:00 Unassigned, No [facility] EXTERNAL PROVIDER RECORDS 2019-04-02 Doctor Marian sity of 05:01:00 Unassigned, No [facility] ASSIGNMENT OF BENEFITS 2019-03-16 Doctor Universit y of 20:47:08 Unassigned, No [facility] INSURANCE CORRESPONDENCE 2019-03-08 Doctor [facility] ity of 05:01:00 Unassigned, No [facility] Encounters Start End Encounter Admission Attending Care Care Encounter Source Date/Time Date/Time Type Type Clinicians Facility Department ID 2021-05-23 Emergency [facility] [id number] Univers 15:52:43 ity of [facility] 2021-05-23 Emergency [facility] [id number] Univers 09:29:50 ity of [facility] 2021-05-23 Emergency [facility] [id number] Univers 08:14:23 ity of [facility] 2021-05-22 Inpatient R BETHANY [facility] AYLIN [id number] Univers 13:04:05 BOBBY ity of [facility] 2022-06-09 2022-06-09 Outpatient R ADITYA [facility] [id number] Univers 15:00:00 15:00:00 CANDIDA ity of [facility] 2020-12-30 2020-12-30 Outpatient R ZULEYKA [facility] [id number] Univers 15:45:00 15:45:00 WONDIFUL ity o f [facility] 2020-12-05 2020-12-05 Orders Doctor PHI 1.2.840.114 [id number] Univers 00:00:00 00:00:00 Only Unassigned, EVELYNE [id number] ity of [place] [facility] 4.2.7.2.686 Varinder as [phone] [address] 2020-11-20 2020-11-20 [facility] 1.2.840.114 [id number] Univers 10:48:51 11:42:30 Visit Sharla Pena 350.1.13.10 it[place] of [place] [phone] Ma dical nal [address] [place] [address] 2020-11-20 2020-11-20 Outpatient [facility] [id number] Univers 10:30:00 10:30:00 SHARLA ity o f [facility] 2020-11-20 2020-11-20 Orders Doctor PHI 1.2.840.114 [id number] Univers 00:00:00 00:00:00 Only Unassigned, EVELYNE 350.1.13.10 ity of [place] [facility] 4.2.7.2.686 Varinder as [phone] [address] 2020-11-19 2020-11-19 [facility] 1.2.840.114 [id number] Univers 00:00:00 00:00:00 Wondiful A Health [id number] ity of [place] 4.2.7.2.686 Varinder as Professio [phone] Ma dical nal [address] 2020-05-30 2020-05-30 Outpatient Phillip GARDINER [facility] [id number] Univers 14:00:00 14:00:00 WONDIFUL ity o f [facility] 2020-04-26 2020-04-26 Outpatient Phillip GARDINER [facility] [id number] Univers 11:00:00 11:00:00 WONDIFUL ity o f [facility] 2020-03-28 2020-03-29 Emergency Enigma, [facility] [id number] 20:48:00 00:17:00 Maribell Pena 350.1.13.10 [place] 4.2.7.2.686 [place] [phone] 2020-03-28 2020-03-29 Emergency Enigma, [facility] [id number] Univers 20:48:00 00:17:00 Maribell Pena 350.1.13.10 i ty of [place] 4.2.7.2.686 [facility] [phone] [address] 2020-02-23 2020-02-23 Transition Abelino Conteh 1.2.840.114 [id number] 00:00:00 00:00:00 of Care Demetrio Galeas 350.1.13.10 [place] 4.2.7.2.686 [phone] [facility] 2020-02-23 2020-02-23 Transition Abelino Conteh 1.2.840.114 [id number] [facility] 00:00:00 00:00:00 of Care Demetrio Breen Adal 350.1.13.10 ity of [place] 4.2.7.2.686 [facility] [phone] [address] 2020-02-21 2020-02-22 Emergency Titi Hahn [facility] 1.2.840. 114 [id number] 09:30:54 20:01:00 Prashanth Vo 350.1.13.10 [place] 4.2.7.2.686 [place] [phone] [facility] 2020-02-21 2020-02-22 Emergency Titi Hahn [facility] 1.2.840. 114 [id number] [facility] 09:30:54 20:01:00 Prashanth Vo 350.1.13.10 ity of [place] 4.2.7.2.686 [facility] [phone] [address] 2020-02-21 2020-02-21 Telemedici Zuleyka [facility] 1.2.840.114 [id number] Univers 07:44:24 10:48:34 ne Visit Wonmalu Breen [place] 350.1.13.10 ity of [place] [phone] Ma diclaurel nal [address] [facility] 2020-02-21 2020-02-21 Telemedici Zuleyka [facility] 1.2.840.114 [id number] 07:44:24 10:48:34 ne Visit [place] A [place] 350.1.13.10 [place] 4.2.7.2.686 Professio [phone] [address] 2020-02-21 2020-02-21 Outpatient R ZULEYKA [facility] [id number] Univers 08:00:00 08:00:00 WONDIFUL ity o f [facility] 2020-02-14 2020-02-14 Emergency Richard, [facility] [id number] Univers 15:20:24 19:50:00 Rachelle Pena 350.1.13.10 i ty of [place]2.7.2.[place] [phone] [address] 2020-02-14 2020-02-14 Urgent Provider, [facility] Urgent Care [facility] 1.2.840.114 [id number] Univers 14:13:11 15:38:31 Care Cuba Gardiner [facility] 350.1.13.1 0 ity of [place] 4.2.7.2.686 Varinder as Professio [phone] Ma diclaurel [facility] [address] 2020-02-14 2020-02-14 Brand Coordinator 2, Adc Lab [facility] 1.2.840.114 [id number] Univers 13:39:57 13:54:57 Visit Cuba [place] 350.1.13. 10 ity of [place] 4.2.7.2.[place] [phone] Ma flor nal [address] [facility] 2020-02-14 2020-02-14 Outpatient R [facility] [id number] Univers 13:30:00 13:30:00 ity of [facility] 2020-02-14 2020-02-14 Case Zuleyka [facility] 1.2.840.114 [id number] Univers 00:00:00 00:00:00 Management Wondiful A [place] 350.1.13.10 ity of [place]2.7.2.[place] [phone] [address] 2020-02-08 2020-02-08 [facility]ici [facility] 1.2.840.114 [id number] Univers 08:02:08 10:54:58 ne Visit Wondiful A [place] 350.1.13.10 ity of [place] 4.2.7.2.[place] [phone] [address] 2020-02-08 2020-02-08 Outpatient [facility] [id number] Univers 10:15:00 10:15:00 WONDIFUL ity o f [facility] 2020-02-04 2020-02-04 Telephone Zo Easley 1..840.114 [id number] Univers 00:00:00 00:00:00 EVELYNE 350.1.13.10 it y of [facility] 4.2.7.2.686 Varinder as [phone] [address] 2020-01-30 2020-01-30 Outpatient [facility] [id number] Univers 16:15:00 16:15:00 WONDIFUL ity o f [facility] 2020-01-29 2020-01-29 Urgent Pob1, Acute Care Clinic [facility] 1. .840.114 [id number] Univers 11:01:47 11:21:47 [facility] 350.1.13.10 ity of [place] 4.2.7.2.686 Varinder as Professio [phone] [address] Office Building One 2020-01-29 2020-01-29 Outpatient R [facility] [id number] Univers 11:20:00 11:20:[address] [facility] 2020-01-03 2020-01-03 Emergency X HILTON [facility] ERT [id number] Univers 11:46:19 16:35:[address] [facility] 2020-01-03 2020-01-03 Emergency [facility] [id number] Univers 11:46:19 16:35:00 Sb Pena 350.1.13.10 i ty of [place] 4.2.7.2.[place] [phone] [facility] 084 Branch 2020-01-03 2020-01-03 Orders Doctor PHI 1.2.840.114 [id number] Univers 00:00:00 00:00:00 Only Unassigned, EVELYNE 350.1.13.10 ity of [place] [facility] 4.2.7.2.686 Varinder as [phone] [facility] 009 Branch 2019-12-25 2019-12-25 Outpatient [facility] [id number] Univers 13:00:00 13:00:00 WONDIFUL ity o f [facility] 2019-12-22 2019-12-22 Outpatient [facility] [id number] Univers 13:45:00 13:45:00 BOBBY ity of [facility] 2019-12-14 2019-12-14 Telephone [facility] 1.2.840.114 [id number] Univers 00:00:00 00:00:00 Wondiful A Health 350.1.13.10 ity of [place] 4.2.7.2.686 Varinder as Professio [phone] [address] Office Building One 2019-12-12 2019-12-12 Telephone [facility] 1.2.840.114 [id number] Univers 00:00:00 00:00:00 Wondiful A [place] 350.1.13.10 ity of [place]2.7.2.[place] [phone] Ma dictn nal [address] [place] [address] 2019-12-11 2019-12-11 Transition Abelino Conteh 1.2.840.114 [id number] Univers 00:00:00 00:00:00 of Care Demetrio A Galeas 350.1.13.10 ity of [place]2.7.2.[place] [phone] [facility] 403 [address] 2019-12-05 2019-12-08 Inpatient R BETHANY [facility] [id number] Univers 05:41:49 15:24:00 BOBBY ity of [facility] 2019-12-05 2019-12-08 Hospital Britta Sims [id number] Univers 05:41:49 15:24:00 Encounter Bobby Muse 350.1.13.10 ity of [facility] 4.2.7.2.686 Varinder as [phone] [facility] [address] 2019-12-04 2019-12-04 Laboratory Only, Adc Test [facility] 1.2.840. 114 [id number] Univers 13:54:20 14:00:22 Only Bobby Sims 350.1.13.10 ity of [place]2.7.2.[place] [phone] Ma dical nal [address] [facility] 2019-12-04 2019-12-04 Outpatient R BETHANY [facility] [id number] Univers 13:45:00 13:45:00 BOBBY ity of [facility] 2019-11-27 2019-11-27 Telephone [facility] 1.2.840.114 [id number] Univers 00:00:00 00:00:00 Wondiful A Health 350.1.13.10 ity of [place] 4.2.7.2.686 Varinder as Professio [phone] Ma dical nal [address] 2019-11-21 2019-11-21 Prep For Catrett, [facility] 1.2.840.114 [id number] Univers 00:00:00 00:00:00 Surgery Kalyn Y HEALTH 350.1.13.10 i ty of CL[place] 4[place]2.[place].2.[place] [phone] [facility] [address] 2019-11-21 2019-11-21 Case Catrett, [facility] 1.2.840.114 [id number] Univers 00:00:00 00:00:00 Management Kalyn Y HEALTH 350.1.13.10 ity of CLINICS [place]2.7.2.[place] [phone] [address] 2019-11-21 2019-11-21 Case Catrett, [facility] 1.2.840.114 [id number] Univers 00:00:00 00:00:00 Management Kalyn Y HEALTH 350.1.13.10 ity of CLIN[place]2.[place].2.[place] [phone] [address] 2019-11-13 2019-11-13 Telephone [facility] 1.2.840.114 [id number] Univers 00:00:00 00:00:00 Wondiful A Health 350.1.13.10 ity of [place] 4.2.7.2.686 Varinder as Professio [phone] [facility] [address] [facility] One 2019-10-05 2019-10-05 Telephone Hung [facility] 1.2.840.114 [id number] Univers 00:00:00 00:00:00 Kalyn Y HEALTH 350.1.13.10 i ty of CL[place]ICS 4[place]2.7.2.[place] [phone] [address] 2019-09-27 2019-09-27 Case Hung, [facility] 1.2.840.114 [id number] Univers 00:00:00 00:00:00 Management Kalyn Y HEALTH 350.1.13.10 ity of CLINICS [place]2.[place].2.[place] [phone] [address] 2019-09-22 2019-09-22 Prep For Hung, [facility] 1.2.840.114 [id number] Univers 00:00:00 00:00:00 Surgery Kalyn Y HEALTH 350.1.13.10 i ty of CL[place] 4[place]2.7.2.[place] [phone] [address] 2019-09-20 2019-09-20 Office [facility] 1.2.840.114 [id number] Univers 14:19:19 14:46:30 Visit Bobby Pena 350.1.13.10 ity of [place] 4.2.7.2.[place] [phone] Ma dical nal [address] [facility] 2019-09-20 2019-09-20 Outpatient R BETHANY [facility] [id number] Univers 14:15:00 14:15:00 BOBBY ity of [facility] 2019-09-01 2019-09-01 Orders Doctor PHI 1.2.840.114 [id number] Univers 00:00:00 00:00:00 Only Unassigned, EVELYNE 350.1.13.10 ity of [place] [facility] 4.2.7.2.686 Varinder as [phone] [address] 2019-08-31 2019-08-31 Office Zuleyka [facility] 1.2.840.114 [id number] Univers 15:53:30 16:20:15 Visit My Ad Box 350.1.13.10 ity of [place] 4.2.7.2.686 Varinder as Professio [phone] [address] [facility] One 2019-08-24 2019-08-24 Orders Doctor PHI 1.2.840.114 [id number] Univers 00:00:00 00:00:00 Only Unassigned, EVELYNE 350.1.13.10 ity of [place] [facility] 4.2.7.2.686 Varinder as [phone] [address] 2019-08-11 2019-08-11 Orders Doctor PHI 1.2.840.114 [id number] Univers 00:00:00 00:00:00 Only Unassigned, EVELYNE 350.1.13.10 ity of [place] [facility] 4.2.7.2.686 Varinder as [phone] [address] 2019-08-03 2019-08-03 Orders Doctor PHI 1.2.840.114 [id number] Univers 00:00:00 00:00:00 Only Unassigned, EVELYNE 350.1.13.10 ity of [place] [facility] 4.2.7.2.686 Varinder as [phone] [address] 2019-07-18 2019-07-18 Orders Doctor PHI 1.2.840.114 [id number] Univers 00:00:00 00:00:00 Only Unassigned, EVELYNE 350.1.13.10 ity of [place] [facility] 4.2.7.2.686 Varinder as [phone] [address] 2019-07-14 2019-07-14 Outpatient R ZULEYKA [facility] [id number] Univers 15:23:29 19:14:00 WONDIFUL ity o f [facility] 2019-07-12 2019-07-12 Orders Doctor PHI 1.2.840.114 [id number] Univers 00:00:00 00:00:00 Only Unassigned, EVELYNE 350.1.13.10 ity of [place] [facility] 4.2.7.2.686 Varinder as [phone] [address] 2019-07-03 2019-07-03 Orders Doctor PHI 1.2.840.114 [id number] Univers 00:00:00 00:00:00 Only Unassigned, EVELYNE 350.1.13.10 ity of [place] [facility] 4.2.7.2.686 Varinder as [phone] [address] 2019-04-03 2019-04-03 Telephone [facility] 1.2.840.114 [id number] [facility] 00:00:00 00:00:00 Wondiful A Health 350.1.13.10 ity of [place] 4.2.7.2.686 Varinder as Professio [phone] Ma dical [facility] [address] [facility] One 2019-04-02 2019-04-02 Orders Doctor PHI 1.2.840.114 [id number] Univers 00:00:00 00:00:00 Only Unassigned, EVELYNE 350.1.13.10 ity of [place] [facility] 4.2.7.2.686 Varinder as [phone] [address] 2019-03-29 2019-03-29 Office Bethany [facility] 1.2.840.114 [id number] [facility] 14:03:52 14:50:17 Visit Bobby Rodarte [place] 350.1.13.10 ity of [place] [phone] Ma dical nal [address] 2019-03-24 2019-03-24 Telephone [facility] 1.2.840.114 [id number] [facility] 00:00:00 00:00:00 [facility] [id number] ity of [place] [id number] [place] Professio [phone] [address] 2019-03-23 2019-03-23 Office Hunter [facility] [id number] [facility] 13:49:44 15:19:34 Visit Ping Jean [id number] i [id number] [phone] [facility] [address] [facility] [place] 2019-03-23 2019-03-23 Brand Coordinator Lab, Adc Fam Pob I [facility] 1.2. 840.114 [id number] [facility] 13:25:06 13:41:58 Visit [facility] 350.1.13.1 0 ity of [place] 4.2.7.2.686 Varinder as Professio [phone] [address] 2019-03-16 2019-03-16 Office Zuleyka [facility] 1.2.840.114 [id number] [facility] 15:47:43 16:37:58 Visit [facility] 350.1.13.10 ity of [place] 4.2.7.2.686 Varinder as Professio [phone] [address] 2019-03-16 2019-03-16 Orders Doctor PHI 1.2.840.114 [id number] [facility] 00:00:00 00:00:00 Only Unassigned, EVELYNE 350.1.13.10 ity of [place] [facility] 4.2.7.2.686 Varinder as [phone] [address] 2019-03-15 2019-03-15 Telephone Zuleyka [facility] 1.2.840.114 [id number] [facility] 00:00:00 00:00:00 [facility] 350.1.13.10 ity of [place] 4.2.7.2.686 Varinder as Professio [phone] [address] One 2019-03-08 2019-03-08 Orders Doctor PHI 1.2.840.114 [id number] [facility] 00:00:00 00:00:00 Only Unassigned, EVELYNE 350.1.13.10 ity of [place] [facility] 4.2.7.2.686 Varinder as [phone] [address] Results Test Description Test Time Test Comments Results Result Comments Source GLYCOSYLATED HEMOGLOBIN (A1C) 2020-03-29 04:32:00 Test Item Value Reference Range Interpretation Comme nts HGB A1C (test code = 4548-4) 5.4 % 4-6 KIM (test code = KIM) %A1C (NGSP) Interpretation (ADA)4.8-5.6 ? ? Normal or (Non-Diabetic Range)5.7-6.4 ? ? Increased Risk (Pre-Diabetic)>6.5 ?Diabetes Indicated Lab Interpretation (test code = Normal 58953-3) [facility] [id number] 04:04:00 Test Item Value Reference Range Interpretation Comments TSH (test code = See_Comment [Automated message] 1170408152) The system [employer] generated this result transmitted ref erence range: 0.45 - 4 .70 mIU/L. The refe rence range was not u sed to interpret this result as normal/abnor mal. Lab Interpretation (test Normal code = 31885-2) [facility]2020-[facility]04 03:38:00 Test Item Value Reference Range Interpretation Comments APPEARANCE (test code = Clear Clear 8999992324) COLOR (test code = Yellow Yellow 5512833099) PH (test code = 4.8-8.0 6569540453) SP GRAVITY (test code = 1.003-1.030 7101642953) GLU U QUAL (test code = 50 mg/dL Normal A 4300936212) BLOOD (test code = 1+ Negative A 7447793355) KETONES (test code = Negative Negative 0418685583) PROTEIN (test code = Negative Negative 2887-8) UROBILIN (test code = Normal Normal 2877089020) BILIRUBIN (test code = Negative Negative 5337910457) NITRITE (test code = Negative Negative 3720509427) LEUK NASRIN (test code = Negative Negative 8085567785) RBC/HPF (test code = See_Comment [Autom ated message] 9455555841) The system [employer] generated this result transmitted ref erence range: 0 - 3 HP F. The reference range was not used to int erpret this result as normal/abnormal . WBC/HPF (test code = See_Comment [Autom ated message] 1087172323) The system [employer] generated this result transmitted ref erence range: 0 - 5 HP F. The reference range was not used to int erpret this result as normal/abnormal . BACTERIA (test code = Few Negative A 3342109185) MUCOUS (test code = Slight Negative LPF A 1108409271) SQ EPITH (test code = HPF 1149685418) HYAL CAST (test code = See_Comment H [Aut omated message] 7889797483) The system [employer] generated this result transmitted ref erence range: <=2 LPF. The reference range was not used to int erpret this result as normal/abnormal . Lab Interpretation (test Abnormal code = 36030-4) [facility] METABOLIC PANEL (19196)2020-03-29 03:34:00 Test Item Value Reference Range Interpretation Comments NA (test code = 141 mmol/L 135-145 6308918446) K (test code = 3.9 mmol/L 3.5-5 8196816133) CL (test code = 111 mmol/L 98-108 H 7125323122) CO2 TOTAL (test code = 21 mmol/L 23-31 L 3592066379) AGAP (test code = 2-16 8517880389) BUN (test code = 18 mg/dL 7-23 2013926442) GLUCOSE (test code = 209 mg/dL 70-110 H 8263643483) CREATININE (test code = 1.03 mg/dL 0.5-1.04 3283156356) TOTAL BILI (test code = 0.7 mg/dL 0.1-1.8 1342333246) CALCIUM (test code = 9.1 mg/dL 8.6-10.6 6221724373) T PROTEIN (test code = 6.6 g/dL 6.3-8.2 1485523959) ALBUMIN (test code = 4.0 g/dL 3.5-5 2070508770) ALK PHOS (test code = 111 U/L 34-122 4956786029) ALTv (test code = 15 U/L 5-35 1742-6) AST(SGOT) (test code = 27 U/L 13-40 1359860942) eGFR Calculation mL/min/1.73m2 (Non-) (test code = 6664682137) eGFR Calculation mL/min/1.73m2 () (test code = 1575554768) KIM (test code = KIM) Association of [...] tests). Lab Interpretation Abnormal (test code = 79153-6) [facility] WITH [id number] 03:19:00 Test Item Value Reference Range Interpretation Comments WBC (test code = See_Comment H [Automated 7828-2) message] The sy stem which generated this result transmitted reference range : 4.30 - 11.10 10*3/?L. The reference range was not used to interpret this result as normal/abnormal . RBC (test code = See_Comment [Automated 419-8) message] The sy stem which generated this [...] RDW-SD (test code = 45.0 fL 39-49.9 36329-6) RDW-CV (test code = 13.1 % 12-15.5 788-0) PLT (test code = See_Comment [Automated 777-3) message] The sy stem which generated this result transmitted reference range : 166 - 358 10*3/ ?L. The reference r lucas was not used to interpret this result as normal/abnormal . MPV (test code = 10.0 fL 9.5-12.9 04972-8) NRBC/100 WBC (test See_Comment [Automat ed code = 4444802053) message] The system which generated this result transmitted reference range : 0.0 - 10.0 /100 WBCs. The refer ence range was not u sed to interpret th is result as normal/abnormal . NRBC x10^3 (test code <0.01 See_Comment [Auto mated = 3343809208) message] The s ystem which generated this result transmitted reference range : 10*3/?L. The reference range was not used to interpret this result as normal/abnormal . GRAN MAT (NEUT) % 80.1 % (test code = 770-8) IMM GRAN % (test code 0.40 % = 2794531184) LYMPH % (test code = 13.8 % 736-9) MONO % (test code = 5.2 % 5905-5) EOS % (test code = 0.2 % 713-8) BASO % (test code = 0.3 % 706-2) GRAN MAT x10^3(ANC) 9.51 10*3/uL 1.88-7.09 H (test code = 3305090619) IMM GRAN x10^3 (test 0.05 10*3/uL 0-0.06 code = 4848683337) LYMPH x10^3 (test code 1.64 10*3/uL 1.32-3.29 = 731-0) MONO x10^3 (test code 0.62 10*3/uL 0.33-0.92 = 742-7) EOS x10^3 (test code = <0.03 0.03-0.39 L 711-2) BASO x10^3 (test code 0.04 10*3/uL 0.01-0.07 = 704-7) Lab Interpretation Abnormal (test code = 98837-0) [facility] HospitalPNEUMOCOCCAL [id number] 18:02:00 Test Item Value Reference Range Interpretation Comments S. pneumoniae antigen (test code = Negative Negative 8917113953) Lab Interpretation (test code = Normal 42827-3) [facility] HospitalProcalcitonin2020-07-30 17:00:00 Test Item Value Reference Range Interpretation Comments Procalcitonin (test 0.04 ng/mL <0.07 code = 6592103456) KIM (test code = KIM) INTERPRETATION OF [...] lung abscess/empyema. For further information please refer to:[email or web address] Lab Interpretation Normal (test code = 53994-7) [facility] HospitalFECAL [id number] 16:39:00 Test Item Value Reference Range Interpretation Comments Fecal Leukocytes (test code = Negative Negative 1008352552) Lab Interpretation (test code = Normal 61113-3) [facility] HospitalVITAMIN B12, [id number] 16:37:00 Test Item Value Reference Range Interpretation Comments VIT B12 (test code = 247 pg/mL 240-930 8122353557) KIM (test code = KIM) Biotin has been reported to cause a positive bias, interpret results relative to patient's use of biotin. Lab Interpretation (test Normal code = 51546-4) [facility] D, [id number] 16:15:00 Test Item Value Reference Range Interpretation Comments VIT D 25OH (test code = <13 25-80 L 14957-2) KIM (test code = KIM) Deficiency: <20 ng/mLInsufficiency: 20-24 ng/mLOptimal: 25-80 ng/mL Lab Interpretation (test Abnormal code = 05768-0) [facility] HospitalLEGIONELLA URINARY ANTIGEN [id number] 15:57:00 Test Item Value Reference Range Interpretation Comments Legionella Urinary Negative Negative Antigen (test code = 7376703588) KIM (test code = KIM) Negative for [...] test. Lab Interpretation (test Normal code = 07277-9) [facility] HospitalTroponin [id number] 14:53:00 Test Item Value Reference Range Interpretation Comments TROPONIN I (test 0.029 ng/mL See_Comment [Automated code = 7084025200) message] The system which generated this result [...] ? Lab Interpretation Normal (test code = 06317-5) [facility]OMEN 2 [id number] 12:54:39HISTORY: Abdominal pain. FINDINGS: AP supine and upright views of the abdomen showed unremarkableintestinal gas pattern. Small amount of air and fecal material notedthroughout the large bowel. Cholecystectomy clips are seen in the rightupper abdomen. Upright view showed no free air.A short radiopaque catheter type device noted projected over the lateralleft mid abdomen. No organomegaly. No aggressivebone lesions. CONCLUSIONS: No acute findings.. [facility], Radiant Results Inft User - 02/22/2020 7:55 [...] organomegaly. No aggressive bone lesions.CONCLUSIONS: No acute findings..[facility] Glycosylated Hemoglobin (A1C)2020-02-22 07:44:00 Test Item Value Reference Range Interpretation Comments HGB A1C (test code = 5.4 % 4-6 4548-4) KIM (test code = KIM) %A1C (NGSP) Interpretation (ADA)4.8-5.6 ? ? Normal or (Non-Diabetic Range)5.7-6.4 ? ? Increased Risk (Pre-Diabetic)>6.5 ?Diabetes Indicated Lab Interpretation Normal (test code = 60186-9) [facility] HospitalLIPID PANEL (71241)(TOTAL CHOLESTEROL, TRIGLYCERIDES, HDL)2020-02-22 07:39:00 Test Item Value Reference Range Interpretation Comments CHOL (test code = 196 mg/dL 120-200 5586977584) HDL (test code = 49 mg/dL >50 L 7845913454) HDLC RATIO (test code = See_Comment [Au tomated message] 0428130653) The system [employer] generated this result transmit leann reference range : <=4.5. The refe rence range was not u sed to interpret th is result as normal/abnormal . TRIG (test code = 121 mg/dL 30-170 4099612391) LDL CHOL (test code = 123 mg/dL See_Comment [Auto mated message] 76161-2) The system [employer] generated this result transmit leann reference range : <=160. The refe rence range was not u sed to interpret th is result as normal/abnormal . VLDL (test code = 24 mg/dL 5-60 3838265422) Lab Interpretation (test Abnormal code = 18888-0) [facility] HospitalIRON [id number] 07:37:00 Test Item Value Reference Range Interpretation Comments IRON (test code = 6480942520) 50 ug/dL 50-160 TIBC (test code = 2345568170) 243 ug/dL 250-410 L % FE SAT (test code = 3004022847) 21 % 20-50 Lab Interpretation (test code = Abnormal 89980-1) [facility] HospitalCLOSTRIDIUM DIFFICILE [id number] 06:39:00 Test Item Value Reference Range Interpretation Comments Clostridioides (Clostridium) Negative Negative difficile (test code = 28681-6) Lab Interpretation (test code = Normal 86673-8) [facility] HospitalBasi Metabolic Panel (NA, K, CL, CO2, GLUCOSE, BUN, CREATININE, CA)2020-02-22 06:26:00 Test Item Value Reference Range Interpretation Comments NA (test code = 135 mmol/L 135-145 2437557677) K (test code = 4.4 mmol/L 3.5-5 1668261271) CL (test code = 106 mmol/L 98-108 8970240845) CO2 TOTAL (test code = 24 mmol/L 23-31 6085244965) AGAP (test code = 2-16 9223536186) BUN (test code = 23 mg/dL 7-23 4021262114) GLUCOSE (test code = 119 mg/dL 70-110 H 3476059019) CREATININE (test code = 0.90 mg/dL 0.5-1.04 8997067302) CALCIUM (test code = 8.7 mg/dL 8.6-10.6 5350205005) eGFR Calculation mL/min/1.73m2 (Non-) (test code = 7356586715) eGFR Calculation mL/min/1.73m2 () (test code = 5917035157) KIM (test code = KIM) Association of [...] tests). Lab Interpretation Abnormal (test code = 99014-6) [facility] HospitalTrchristopher [id number] 06:24:00 Test Item Value Reference Range Interpretation Comments TROPONIN I (test 0.033 ng/mL See_Comment [Automated code = 7863568419) message] The system which generated this result [...] ? Lab Interpretation Normal (test code = 30375-8) [facility] HospitalDoris [id number] 06:23:00 Test Item Value Reference Range Interpretation Comments TROPONIN I (test 0.032 ng/mL See_Comment [Automated code = 8861491746) message] The system which generated this result [...] ? Lab Interpretation Normal (test code = 98003-8) [facility]URINALYSIS2020-07-30 05:49:00 Test Item Value Reference Range Interpretation Comments APPEARANCE (test code = Clear Clear 0917162708) COLOR (test code = Straw Yellow A 9422431964) PH (test code = 4.8-8.0 3901513286) SP GRAVITY (test code = 1.003-1.030 0372967400) GLU U QUAL (test code = Normal Normal 0521173673) BLOOD (test code = 1+ Negative A 9091812658) KETONES (test code = Negative Negative 9498765886) PROTEIN (test code = Negative Negative 2887-8) UROBILIN (test code = Normal Normal 0918260482) BILIRUBIN (test code = Negative Negative 2224665571) NITRITE (test code = Negative Negative 0772994183) LEUK NASRIN (test code = Negative Negative 9609775723) RBC/HPF (test code = See_Comment [Autom ated message] 4928067558) The system [employer] generated this result transmitted ref erence range: 0 - 3 HP F. The reference range was not used to int erpret this result as normal/abnormal . WBC/HPF (test code = <1 See_Comment [Autom ated message] 4940409161) The system [employer] generated this result transmitted ref erence range: 0 - 5 HP F. The reference range was not used to int erpret this result as normal/abnormal . BACTERIA (test code = Negative Negative 4797546365) MUCOUS (test code = Slight Negative LPF A 3576625330) SQ EPITH (test code = <1 HPF 7700127411) Lab Interpretation (test Abnormal code = 63980-2) [facility] HospitalCBC with [id number] 05:33:00 Test Item Value Reference Range Interpretation Comments WBC (test code = See_Comment H [Automated 9690-2) message] The sy stem which generated this result transmitted reference range : 4.30 - 11.10 10*3/?L. The reference range was not used to interpret this result as normal/abnormal . RBC (test code = See_Comment [Automated 499-8) message] The sy stem which generated this [...] RDW-SD (test code = 48.6 fL 39-49.9 50237-5) RDW-CV (test code = 13.9 % 12-15.5 788-0) PLT (test code = See_Comment [Automated 777-3) message] The sy stem which generated this result transmitted reference range : 166 - 358 10*3/ ?L. The reference r lucas was not used to interpret this result as normal/abnormal . MPV (test code = 10.2 fL 9.5-12.9 63775-5) NRBC/100 WBC (test See_Comment [Automat ed code = 0552698886) message] The system which generated this result transmitted reference range : 0.0 - 10.0 /100 WBCs. The refer ence range was not u sed to interpret th is result as normal/abnormal . NRBC x10^3 (test code <0.01 See_Comment [Auto mated = 3831469936) message] The s ystem which generated this result transmitted reference range : 10*3/?L. The reference range was not used to interpret this result as normal/abnormal . GRAN MAT (NEUT) % 58.2 % (test code = 770-8) IMM GRAN % (test code 0.70 % = 4336024914) LYMPH % (test code = 32.2 % 736-9) MONO % (test code = 7.3 % 5905-5) EOS % (test code = 1.2 % 713-8) BASO % (test code = 0.4 % 706-2) GRAN MAT x10^3(ANC) 6.62 10*3/uL 1.88-7.09 (test code = 0725365110) IMM GRAN x10^3 (test 0.08 10*3/uL 0-0.06 H code = 3583958071) LYMPH x10^3 (test code 3.66 10*3/uL 1.32-3.29 H = 731-0) MONO x10^3 (test code 0.83 10*3/uL 0.33-0.92 = 742-7) EOS x10^3 (test code = 0.14 10*3/uL 0.03-0.39 711-2) BASO x10^3 (test code 0.04 10*3/uL 0.01-0.07 = 704-7) Lab Interpretation Abnormal (test code = 50649-9) [facility] HospitalMAGNESIUM2020-07-30 04:09:00 Test Item Value Reference Range Interpretation Comments MAGNESIUM (test code = 9096840894) 2.1 mg/dL 1.7-2.4 Lab Interpretation (test code = Normal 46106-7) [facility] HospitalPHOSPHORUS2020-07-30 04:08:00 Test Item Value Reference Range Interpretation Comments PHOSPHORUS (test code = 8712779093) 3.6 mg/dL 2.5-5 Lab Interpretation (test code = Normal 22137-1) [facility] HospitalFERRITIN [id number] 01:37:00 Test Item Value Reference Range Interpretation Comments FERRITIN (test code = 36.4 ng/mL 11-264 2016013511) KIM (test code = KIM) Biotin has been reported to cause a negative bias, interpret results relative to patient's use of biotin. Lab Interpretation (test Normal code = 90243-5) [facility] HospitalLipid Panel (Total Cholesterol, Triglycerides, HDL)2020-02-21 23:53:00 Test Item Value Reference Range Interpretation Comments CHOL (test code = 200 mg/dL 120-200 9656502891) HDL (test code = 48 mg/dL >50 L 0512591966) HDLC RATIO (test code = See_Comment [Au tomated message] 7148520587) The system [employer] generated this result transmit leann reference range : <=4.5. The refe rence range was not u sed to interpret th is result as normal/abnormal . TRIG (test code = 101 mg/dL 30-170 3880384719) LDL CHOL (test code = 132 mg/dL See_Comment [Auto mated message] 10356-1) The system [employer] generated this result transmit leann reference range : <=160. The refe rence range was not u sed to interpret th is result as normal/abnormal . VLDL (test code = 20 mg/dL 5-60 4207775761) Lab Interpretation (test Abnormal code = 66560-5) [facility] HospitalTROPONIN [id number] 17:31:00 Test Item Value Reference Range Interpretation Comments TROPONIN I (test 0.035 ng/mL See_Comment H [Automated code = 5872320943) message] The system which generated this result [...] ? Lab Interpretation Abnormal (test code = 78769-3) [facility] HospitalCOMP. METABOLIC PANEL (90077)2020-02-21 17:21:00 Test Item Value Reference Range Interpretation Comments NA (test code = 137 mmol/L 135-145 7995256197) K (test code = 4.6 mmol/L 3.5-5 6657929806) CL (test code = 111 mmol/L 98-108 H 9230582658) CO2 TOTAL (test code = 22 mmol/L 23-31 L 0679314916) AGAP (test code = 2-16 2842317544) BUN (test code = 25 mg/dL 7-23 H 4643481303) GLUCOSE (test code = 124 mg/dL 70-110 H 3772107963) CREATININE (test code = 0.86 mg/dL 0.5-1.04 7332440677) TOTAL BILI (test code = 0.6 mg/dL 0.1-1.9 7683175839) CALCIUM (test code = 8.1 mg/dL 8.6-10.6 L 1330474263) T PROTEIN (test code = 5.8 g/dL 6.3-8.2 L 3601669555) ALBUMIN (test code = 3.2 g/dL 3.5-5 L 2471689452) ALK PHOS (test code = 103 U/L 34-122 6002498558) ALTv (test code = 33 U/L 5-35 1742-6) AST(SGOT) (test code = 27 U/L 13-40 6276847580) eGFR Calculation mL/min/1.73m2 (Non-) (test code = 7288512405) eGFR Calculation mL/min/1.73m2 () (test code = 2463294269) KIM (test code = KIM) Association of [...] tests). Lab Interpretation Abnormal (test code = 00960-6) [facility] HospitalLIPASE2020-07-29 17:20:00 Test Item Value Reference Range Interpretation Comments LIPASE (test code = 2310447464) 190 U/L 0-220 Lab Interpretation (test code = Normal 11097-1) [facility] HospitalLactic Acid Whole [id number] 17:06:00 Test Item Value Reference Range Interpretation Comments LACTIC ACID (test code = 1.18 mmol/L 0.3-2.6 4889682898) Lab Interpretation (test code = Normal 69725-8) [facility] HospitalCOVID-19 (ID NOW RAPID TESTING)2020-02-21 16:01:00 Test Item Value Reference Range Interpretation Comments SARS-CoV-2 Rapid ID NOW Not Detected Not Detected (test code = 02460-4) KIM (test code = KIM) ID NOW COVID-19 Assay is an isothermal nucleic acid amplification test intended for the qualitative detection of nucleic acid from SARS-CoV-2 viral RNA in 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 It is used under Emergency Use [...] indicated. Lab Interpretation Normal (test code = 99394-0) [facility]XR CHEST 1 [id number] 15:51:41HISTORY: Shortness of breath. TECHNIQUE: Portable AP [...] upper abdomen.CONCLUSIONS: No signs of acute cardiopulmonary disease.[facility] HospitalCBC WITH [id number] 15:41:00 Test Item Value Reference Range Interpretation Comments WBC (test code = See_Comment H [Automated 5890-2) message] The sy stem which generated this result transmitted reference range : 4.30 - 11.10 10*3/?L. The reference range was not used to interpret this result as normal/abnormal . RBC (test code = See_Comment [Automated 279-8) message] The sy stem which generated this [...] RDW-SD (test code = 47.2 fL 39-49.9 51178-2) RDW-CV (test code = 14.1 % 12-15.5 788-0) PLT (test code = See_Comment [Automated 777-3) message] The sy stem which generated this result transmitted reference range : 166 - 358 10*3/ ?L. The reference r lucas was not used to interpret this result as normal/abnormal . MPV (test code = 10.7 fL 9.5-12.9 78391-4) NRBC/100 WBC (test See_Comment [Automat ed code = 4704938859) message] The system which generated this result transmitted reference range : 0.0 - 10.0 /100 WBCs. The refer ence range was not u sed to interpret th is result as normal/abnormal . NRBC x10^3 (test code <0.01 See_Comment [Auto mated = 9213113040) message] The s ystem which generated this result transmitted reference range : 10*3/?L. The reference range was not used to interpret this result as normal/abnormal . GRAN MAT (NEUT) % 65.3 % (test code = 770-8) IMM GRAN % (test code 1.20 % = 6841738704) LYMPH % (test code = 23.9 % 736-9) MONO % (test code = 7.3 % 5905-5) EOS % (test code = 1.8 % 713-8) BASO % (test code = 0.5 % 706-2) GRAN MAT x10^3(ANC) 7.63 10*3/uL 1.88-7.09 H (test code = 9770065301) IMM GRAN x10^3 (test 0.14 10*3/uL 0-0.06 H code = 8816871826) LYMPH x10^3 (test code 2.79 10*3/uL 1.32-3.29 = 731-0) MONO x10^3 (test code 0.85 10*3/uL 0.33-0.92 = 742-7) EOS x10^3 (test code = 0.21 10*3/uL 0.03-0.39 711-2) BASO x10^3 (test code 0.06 10*3/uL 0.01-0.07 = 704-7) Lab Interpretation Abnormal (test code = 10073-8) [facility] HospitalTHYROID STIMULATING [id number] 23:07:00 Test Item Value Reference Range Interpretation Comments TSH (test code = See_Comment [Automated message] 1299919631) The system [employer] generated this result transmitted ref erence range: 0.45 - 4 .70 mIU/L. The refe rence range was not u sed to interpret this result as normal/abnor mal. Lab Interpretation (test Normal code = 77375-1) [facility]ST 1 [id number] 22:32:37CHEST ONE VIEW HISTORY: ?Chest pain TECHNIQUE: [...] right. CONCLUSIONS: No acute c ardiopulmonary disease. [facility], Radiant Results Inft User - 02/14/2020 [...] convexity to the right.CONCLUSIONS: No acute cardiopulmonary disease.[facility] HospitalLactic Acid Whole [id number] 22:30:00 Test Item Value Reference Range Interpretation Comments LACTIC ACID (test code = 1.38 mmol/L 4809666484) [facility] HospitalURINALYSIS2020-07-22 22:04:00 Test Item Value Reference Range Interpretation Comments APPEARANCE (test code = Clear Clear 3211333946) COLOR (test code = Yellow Yellow 5685163361) PH (test code = 4.8-8.0 9414122596) SP GRAVITY (test code = 1.003-1.030 4532683625) GLU U QUAL (test code = Normal Normal 7987532173) BLOOD (test code = 1+ Negative A 3765823769) KETONES (test code = 5 mg/dL Negative A 1069240919) PROTEIN (test code = Negative Negative 2887-8) UROBILIN (test code = Normal Normal 7628234079) BILIRUBIN (test code = Negative Negative 5023302577) NITRITE (test code = Negative Negative 4615975062) LEUK NASRIN (test code = Negative Negative 7604736867) RBC/HPF (test code = See_Comment [Autom ated message] 0259372432) The system [employer] generated this result transmitted ref erence range: 0 - 3 HP F. The reference range was not used to int erpret this result as normal/abnormal . WBC/HPF (test code = <1 See_Comment [Autom ated message] 1983006631) The system [employer] generated this result transmitted ref erence range: 0 - 5 HP F. The reference range was not used to int erpret this result as normal/abnormal . BACTERIA (test code = Negative Negative 0129076520) MUCOUS (test code = Slight Negative LPF A 9676691960) SQ EPITH (test code = HPF 8927756610) HYAL CAST (test code = See_Comment H [Aut omated message] 5291367234) The system [employer] generated this result transmitted ref erence range: <=2 LPF. The reference range was not used to int erpret this result as normal/abnormal . Lab Interpretation (test Abnormal code = 24580-5) [facility]-28 21:43:00 Test Item Value Reference Interpretation Comments Range D-DIMER (test code = See_Comment H [Autom ated 7275425175) message] The system which generated this result [...] diagnosis. Lab Interpretation Abnormal (test code = 00577-0) [facility]TROP[facility] [id number] 21:31:00 Test Item Value Reference Range Interpretation Comments TROPONIN I (test 0.034 ng/mL See_Comment [Automated code = 0561147546) message] The system which generated this result [...] ? Lab Interpretation Normal (test code = 38448-6) [facility]COMP[facility]OL[facility] PANEL (23563)2020-02-14 21:19:00 Test Item Value Reference Range Interpretation Comments NA (test code = 138 mmol/L 135-145 6962911469) K (test code = 4.8 mmol/L 3.5-5 5650410410) CL (test code = 105 mmol/L 98-108 7326100448) CO2 TOTAL (test code = 22 mmol/L 23-31 L 4866591875) AGAP (test code = 2-16 6198594674) BUN (test code = 25 mg/dL 7-23 H 6435568643) GLUCOSE (test code = 125 mg/dL 70-110 H 4207438793) CREATININE (test code = 0.90 mg/dL 0.5-1.04 0836844878) TOTAL BILI (test code = 0.9 mg/dL 0.1-1.9 6733439770) CALCIUM (test code = 9.9 mg/dL 8.6-10.6 4749182540) T PROTEIN (test code = 8.0 g/dL 6.3-8.2 1168517383) ALBUMIN (test code = 4.5 g/dL 3.5-5 1215727814) ALK PHOS (test code = 109 U/L 34-122 7318930359) ALTv (test code = 37 U/L 5-35 H 1742-6) AST(SGOT) (test code = 40 U/L 13-40 5862265113) eGFR Calculation mL/min/1.73m2 (Non-) (test code = 7361230687) eGFR Calculation mL/min/1.73m2 () (test code = 6364200310) KIM (test code = KIM) Association of [...] tests). Lab Interpretation Abnormal (test code = 98276-0) [facility] HospitalLIPASE, [id number] 21:19:00 Test Item Value Reference Range Interpretation Comments LIPASE (test code = 8182537104) 269 U/L 0-220 H Lab Interpretation (test code = Abnormal 62247-7) [facility]aPTT2020-07-22 21:15:00 Test Item Value Reference Range Interpretation Comments APTT Patient (test See_Comment L [Automat ed code = 3173-2) message] The system which generated this result transmitted reference range : 23 - 38 Seconds . The reference range was not used to interpr et this result as normal/abnormal . KIM (test code = KIM) The [facility] patient population mean normal value for aPTT is 30 seconds. Lab Interpretation Abnormal (test code = 41373-7) [facility] HospitalPROTHROMBIN TIME / [id number] 21:13:00 Test Item Value Reference Range Interpretation [...] tions. Lab Interpretation (test Abnormal code = 76088-0) [facility] HospitalCBC WITH [id number] 21:11:00 Test Item Value Reference Range Interpretation [...] RDW-SD (test code = 45.9 fL 39-49.9 66171-1) RDW-CV (test code = 13.6 % 12-15.5 788-0) PLT (test code = See_Comment [Automated 777-3) message] The system which generated this result transmit leann reference range : 166 - 358 10*3/ ?L. The reference range was not u sed to interpret th is result as normal/abnormal . MPV (test code = 10.1 fL 9.5-12.9 87535-9) NRBC/100 WBC (test See_Comment [Automat ed code = 8162749227) message] The system which generated this result transmit leann reference range : 0.0 - 10.0 /100 WBCs. The reference range was not used to interpret this result as normal/abnormal . NRBC x10^3 (test code <0.01 See_Comment [Auto mated = 3484733544) message] The system which generated this result transmit leann reference range : 10*3/?L. The reference range was not used to interpret this result as normal/abnormal . GRAN MAT (NEUT) % 85.0 % (test code = 770-8) IMM GRAN % (test code 1.40 % = 1414408747) LYMPH % (test code = 10.1 % 736-9) MONO % (test code = 2.9 % 5905-5) EOS % (test code = 0.3 % 713-8) BASO % (test code = 0.3 % 706-2) GRAN MAT x10^3(ANC) 14.85 10*3/uL 1.88-7.09 H (test code = 4628976787) IMM GRAN x10^3 (test 0.24 10*3/uL 0-0.06 H code = 3128064337) LYMPH x10^3 (test code 1.77 10*3/uL 1.32-3.29 = 731-0) MONO x10^3 (test code 0.51 10*3/uL 0.33-0.92 = 742-7) EOS x10^3 (test code = 0.06 10*3/uL 0.03-0.39 711-2) BASO x10^3 (test code 0.06 10*3/uL 0.01-0.07 = 704-7) Lab Interpretation Abnormal (test code = 52732-5) [facility] HospitalCT ABDOMEN PELVIS W [id number] 20:16:21Impression: 1. ?Findings concerning for cystitis. 2. [...] surgery. Postsurgical changes are seen at the [facility] WujylsFjkdouayms5639-29-52 18:27:00 Test Item Value Reference Range Interpretation Comments APPEARANCE (test code = Clear Clear 3904413515) COLOR (test code = Belkis Yellow A 9836982849) PH (test code = 4.8-8.0 3740233548) SP GRAVITY (test code = 1.003-1.030 0915405058) GLU U QUAL (test code = Normal Normal 2483983183) BLOOD (test code = 1+ Negative A 6951622951) KETONES (test code = Negative Negative 8830376095) PROTEIN (test code = Negative Negative 2887-8) UROBILIN (test code = Normal Normal 6212512427) BILIRUBIN (test code = Negative Negative 3089353731) NITRITE (test code = Negative Negative 9860968869) LEUK NASRIN (test code = Negative Negative 9481743616) RBC/HPF (test code = See_Comment [Autom ated message] 0152104078) The system [employer] generated this result transmitted ref erence range: 0 - 3 HP F. The reference range was not used to int erpret this result as normal/abnormal . WBC/HPF (test code = <1 See_Comment [Autom ated message] 7689978796) The system [employer] generated this result transmitted ref erence range: 0 - 5 HP F. The reference range was not used to int erpret this result as normal/abnormal . BACTERIA (test code = Few Negative A 9795343512) MUCOUS (test code = Moderate Negative LPF A 6229283027) SQ EPITH (test code = HPF 1334199979) HYAL CAST (test code = See_Comment H [Aut omated message] 0613338284) The system [employer] generated this result transmitted ref erence range: <=2 LPF. The reference range was not used to int erpret this result as normal/abnormal . Lab Interpretation (test Abnormal code = 67893-6) [facility] HospitalProthrombin Time (PT) / [id number] 18:21:00 Test Item Value Reference Range Interpretation Comments PROTIME PATIENT (test See_Comment [Auto mated message] code = 5964-2) The system [employer] generated this result transmitted ref erence range: 12.0 - 1 4.7 Seconds. The re ference range was not u sed to interpret this result as normal/abnor mal. INR (test code = 6301-6) Nor mal INR <1.1; Warfarin Therap eutic range 2.0 to 3. 0 or 2.5 to 3.5, dep ending upon the indica tions. Lab Interpretation (test Normal code = 88515-1) [facility] HospitalaPTT2020-06-10 18:20:00 Test Item Value Reference Range Interpretation Comments APTT Patient (test See_Comment L [Automat ed code = 3173-2) message] The system which generated this result transmitted reference range : 23 - 38 Seconds . The reference range was not used to interpr et this result as normal/abnormal . KIM (test code = KIM) The [facility] patient population mean normal value for aPTT is 30 seconds. Lab Interpretation Abnormal (test code = 12679-6) [facility] HospitalBasi Metabolic Panel (NA, K, CL, CO2, GLUCOSE, BUN, CREATININE, CA)2020-01-03 18:17:00 Test Item Value Reference Range Interpretation Comments NA (test code = 138 mmol/L 135-145 8536500270) K (test code = 3.9 mmol/L 3.5-5 0438021916) CL (test code = 110 mmol/L 98-108 H 2602974954) CO2 TOTAL (test code = 24 mmol/L 23-31 0672511741) AGAP (test code = 2-16 4826349593) BUN (test code = 12 mg/dL 7-23 2094309114) GLUCOSE (test code = 111 mg/dL 70-110 H 4340144009) CREATININE (test code = 0.72 mg/dL 0.5-1.04 9049986566) CALCIUM (test code = 8.9 mg/dL 8.6-10.6 2654097500) eGFR Calculation mL/min/1.73m2 (Non-) (test code = 5946673884) eGFR Calculation mL/min/1.73m2 () (test code = 1716185482) KIM (test code = KIM) Association of [...] tests). Lab Interpretation Abnormal (test code = 35375-3) [facility] HospitalHepatic Function Panel (ALB, T.PRO, BILI T, BU/BC, ALT, AST, ALK PHOS)2020-01-03 18:17:00 Test Item Value Reference Range Interpretation Comments TOTAL BILI (test code = 4238242898) 1.1 mg/dL 0.1-1.1 BILI UNCON (test code = 8805673588) 1.2 mg/dL 0.1-1.1 H BILI CONJ (test code = 2972570502) 0.0 mg/dL 0-0.3 T PROTEIN (test code = 2964933268) 6.7 g/dL 6.3-8.2 ALBUMIN (test code = 4618798848) 3.9 g/dL 3.5-5 ALK PHOS (test code = 0774573104) 88 U/L 34-122 ALTv (test code = 1742-6) 26 U/L 5-35 AST(SGOT) (test code = 0518712834) 28 U/L 13-40 Lab Interpretation (test code = Abnormal 31918-5) [facility] HospitalLipase Arcno0510-02-75 18:17:00 Test Item Value Reference Range Interpretation Comments LIPASE (test code = 1440747245) 166 U/L 0-220 Lab Interpretation (test code = Normal 91312-4) [facility] WITH [id number] 18:07:00 Test Item Value Reference Range Interpretation Comments WBC (test code = See_Comment H [Automated 0090-2) message] The sy stem which generated this [...] RDW-SD (test code = 46.4 fL 39-49.9 45851-2) RDW-CV (test code = 13.7 % 12-15.5 788-0) PLT (test code = See_Comment [Automated 777-3) message] The sy stem which generated this result transmitted reference range : 166 - 358 10*3/ ?L. The reference r lucas was not used to interpret this result as normal/abnormal . MPV (test code = 9.9 fL 9.5-12.9 01615-9) NRBC/100 WBC (test See_Comment [Automat ed code = 2280644005) message] The system which generated this result transmitted reference range : 0.0 - 10.0 /100 WBCs. The refer ence range was not u sed to interpret th is result as normal/abnormal . NRBC x10^3 (test code <0.01 See_Comment [Auto mated = 6228138280) message] The s ystem which generated this result transmitted reference range : 10*3/?L. The reference range was not used to interpret this result as normal/abnormal . GRAN MAT (NEUT) % 83.1 % (test code = 770-8) IMM GRAN % (test code 0.70 % = 1627515459) LYMPH % (test code = 11.2 % 736-9) MONO % (test code = 3.6 % 5905-5) EOS % (test code = 1.1 % 713-8) BASO % (test code = 0.3 % 706-2) GRAN MAT x10^3(ANC) 9.43 10*3/uL 1.88-7.09 H (test code = 7150390389) IMM GRAN x10^3 (test 0.08 10*3/uL 0-0.06 H code = 1796427189) LYMPH x10^3 (test code 1.27 10*3/uL 1.32-3.29 L = 731-0) MONO x10^3 (test code 0.41 10*3/uL 0.33-0.92 = 742-7) EOS x10^3 (test code = 0.12 10*3/uL 0.03-0.39 711-2) BASO x10^3 (test code 0.03 10*3/uL 0.01-0.07 = 704-7) Lab Interpretation Abnormal (test code = 99352-1) [facility] HospitalLactic Acid Whole Nvdee7281-01-36 17:34:00 Test Item Value Reference Range Interpretation Comments LACTIC ACID (test code = 1.77 mmol/L 0.3-2.6 0399540385) Lab Interpretation (test code = Normal 55153-5) [facility] (NA, K, CL, CO2, GLUCOSE, BUN, CREATININE, CA)2019-12-06 08:20:00 Test Item Value Reference Range Interpretation Comments NA (test code = 132 mmol/L 135-145 L 5532700775) K (test code = 4.1 mmol/L 3.5-5 6698579296) CL (test code = 102 mmol/L 98-108 7957007516) CO2 TOTAL (test code = 25 mmol/L 23-31 3156819005) AGAP (test code = 2-16 3700305835) BUN (test code = 15 mg/dL 7-23 1854272573) GLUCOSE (test code = 85 mg/dL 70-110 2518822272) CREATININE (test code = 0.84 mg/dL 0.5-1.04 0501220765) CALCIUM (test code = 8.6 mg/dL 8.6-10.6 6208372524) eGFR Calculation mL/min/1.73m2 (Non-) (test code = 8840035287) eGFR Calculation mL/min/1.73m2 () (test code = 4506942107) KIM (test code = KIM) Association of [...] tests). Lab Interpretation Abnormal (test code = 19452-2) [facility] WITH ANKBVHVEDQBH7374-79-44 07:56:00 Test Item Value Reference Range Interpretation [...] RDW-SD (test code = 47.1 fL 39-49.9 93782-7) RDW-CV (test code = 13.5 % 12-15.5 788-0) PLT (test code = See_Comment [Automated 777-3) message] The system which generated this result transmit leann reference range : 166 - 358 10*3/ ?L. The reference range was not u sed to interpret th is result as normal/abnormal . MPV (test code = 9.8 fL 9.5-12.9 91755-1) NRBC/100 WBC (test See_Comment [Automat ed code = 9859649283) message] The system which generated this result transmit leann reference range : 0.0 - 10.0 /100 WBCs. The reference range was not used to interpret this result as normal/abnormal . NRBC x10^3 (test code <0.01 See_Comment [Auto mated = 9476804205) message] The system which generated this result transmit leann reference range : 10*3/?L. The reference range was not used to interpret this result as normal/abnormal . GRAN MAT (NEUT) % 77.4 % (test code = 770-8) IMM GRAN % (test code 0.60 % = 6819047366) LYMPH % (test code = 15.0 % 736-9) MONO % (test code = 6.7 % 5905-5) EOS % (test code = 0.2 % 713-8) BASO % (test code = 0.1 % 706-2) GRAN MAT x10^3(ANC) 12.65 10*3/uL 1.88-7.09 H (test code = 6328198697) IMM GRAN x10^3 (test 0.10 10*3/uL 0-0.06 H code = 3699047553) LYMPH x10^3 (test code 2.45 10*3/uL 1.32-3.29 = 731-0) MONO x10^3 (test code 1.10 10*3/uL 0.33-0.92 H = 742-7) EOS x10^3 (test code = 0.04 10*3/uL 0.03-0.39 711-2) BASO x10^3 (test code <0.03 0.01-0.07 = 704-7) Lab Interpretation Abnormal (test code = 11678-9) [facility] Barium Swallow Inxfqbzvd0208-30-11 23:38:49 Postsurgical changes status post hiatal hernia [...] evaluation because of patient's inability to stand. Carving Machine Operator images demonstrate surgical changes status post hiatal [...] Limited evaluation because of patient's inability to stand.Carving Machine Operator images demonstrate surgical changes status post hiatal [...] reviewed this study and agree with theabove report.[facility] WITH OHIBEXUOGCBZ5182-26-62 17:22:00 Test Item Value Reference Range Interpretation [...] RDW-SD (test code = 44.9 fL 39-49.9 41279-4) RDW-CV (test code = 13.2 % 12-15.5 788-0) PLT (test code = See_Comment [Automated 777-3) message] The system which generated this result transmit leann reference range : 166 - 358 10*3/ ?L. The reference range was not u sed to interpret th is result as normal/abnormal . MPV (test code = 9.7 fL 9.5-12.9 22284-3) NRBC/100 WBC (test See_Comment [Automat ed code = 7419978307) message] The system which generated this result transmit leann reference range : 0.0 - 10.0 /100 WBCs. The reference range was not used to interpret this result as normal/abnormal . NRBC x10^3 (test code <0.01 See_Comment [Auto mated = 6282278367) message] The system which generated this result transmit leann reference range : 10*3/?L. The reference range was not used to interpret this result as normal/abnormal . GRAN MAT (NEUT) % 93.0 % (test code = 770-8) IMM GRAN % (test code 1.30 % = 1525197919) LYMPH % (test code = 3.2 % 736-9) MONO % (test code = 2.4 % 5905-5) EOS % (test code = 0.0 % 713-8) BASO % (test code = 0.1 % 706-2) GRAN MAT x10^3(ANC) 19.11 10*3/uL 1.88-7.09 H (test code = 3938087940) IMM GRAN x10^3 (test 0.27 10*3/uL 0-0.06 H code = 8098975845) LYMPH x10^3 (test code 0.65 10*3/uL 1.32-3.29 L = 731-0) MONO x10^3 (test code 0.49 10*3/uL 0.33-0.92 = 742-7) EOS x10^3 (test code = <0.03 0.03-0.39 L 711-2) BASO x10^3 (test code 0.03 10*3/uL 0.01-0.07 = 704-7) Lab Interpretation Abnormal (test code = 51542-3) [facility] Metabolic Panel (NA, K, CL, CO2, GLUCOSE, BUN, CREATININE, CA)2019-12-05 16:11:00 Test Item Value Reference Range Interpretation Comments NA (test code = 135 mmol/L 135-145 7550292895) K (test code = 5.3 mmol/L 3.5-5 H 0706543335) CL (test code = 105 mmol/L 98-108 0782555725) CO2 TOTAL (test code = 24 mmol/L 23-31 0539792964) AGAP (test code = 2-16 2890691706) BUN (test code = 23 mg/dL 7-23 8730153362) GLUCOSE (test code = 204 mg/dL 70-110 H 6467998017) CREATININE (test code = 0.74 mg/dL 0.5-1.04 7293613698) CALCIUM (test code = 8.5 mg/dL 8.6-10.6 L 7060408954) eGFR Calculation mL/min/1.73m2 (Non-) (test code = 7743505457) eGFR Calculation mL/min/1.73m2 () (test code = 9523682486) KIM (test code = KIM) Association of [...] tests). Lab Interpretation Abnormal (test code = 92537-3) [facility] HospitalMagnesium2020-05-12 16:11:00 Test Item Value Reference Range Interpretation Comments MAGNESIUM (test code = 9917516885) 2.0 mg/dL 1.7-2.4 Lab Interpretation (test code = Normal 00556-7) [facility] HospitalPhosphorus2020-05-12 16:11:00 Test Item Value Reference Range Interpretation Comments PHOSPHORUS (test code = 3728838183) 3.2 mg/dL 2.5-5 Lab Interpretation (test code = Normal 66110-9) [facility] HospitalTISSUE [id number] 19:32:00Surgical Pathology Report Case: [id number] Authorizing Provider: Leanna Perez MD Collected: 03/06/2019 0850 Ordering Location: [address] Received: 03/06/2019 1421 Service Pathologist: Radha [...] MALIGNANCY NOTED Signing Pathologist Direct Phone Line: [phone] signed by Radha Fuentes MD on 03/07/2019 at 7:32 [id number] X 2; [id number] and postop diagnosis: anemia A. Duodenum random [...] evaluated Immunohistochemistry technical testing was performed at [facility], Pathology Laboratory where it was developed [...] perform high complexity clinical laboratory testing.COMPREHENSIVE METABOLIC [id number] 07:33:00 Test Item Value Reference Range Interpretation [...] NOT APPLICABLE FOR DIALYSIS PATIEN TS. PROTHROMBIN TIME/[id number] 07:23:00 Test Item Value Reference Range Interpretation [...] mechanical heart valves.CBC W/PLT COUNT & AUTO VPEHXFAZNVUK6654-70-28 07:16:00 Test Item Value Reference Range Interpretation [...] (BEAKER) (test code = 2801) HEMOGLOBIN AND [id number] 22:37:00 Test Item Value Reference Range Interpretation Comments HEMOGLOBIN (BEAKER) (test code = 7.5 GM/DL 11.2-15.7 L 410) HEMATOCRIT (BEAKER) (test code = 26.8 % 34.1-44.9 L 411) HEMOGLOBIN AND [id number] 10:01:00 Test Item Value Reference Range Interpretation Comments HEMOGLOBIN (BEAKER) (test code = 8.1 GM/DL 11.2-15.7 L 410) HEMATOCRIT (BEAKER) (test code = 28.9 % 34.1-44.9 L 411) VITAMIN D, 76-ZCJNDCG2993-88-11 09:22:00 Test Item Value Reference Range Interpretation Comments VITAMIN D 25-OH (BEAKER) (test code 5.7 ng/mL 6.6-49.9 L = 2764) Effective 05/05/2017: Reference Range ChangeNew: 6.6-49.9 ng/mL Previous: 13.0- 47.8 ng/mLRecommendedVitamin D Target Range: 30.0-40.0 ng/mLCOMPREHENSIVE METABOLIC [id number] 08:49:00 Test Item Value Reference Range Interpretation [...] (test code = 2590) TSH/FREE T4 IF [id number] 06:46:00 Test Item Value Reference Range Interpretation Comments THYROID STIMULATING HORMONE 0.90 uIU/mL 0.35-4.94 (BEAKER) (test code = 772) VITAMIN B12 AND [id number] 06:46:00 Test Item Value Reference Range Interpretation [...] (BEAKER) (test code = 413) HEMOGLOBIN AND [id number] 23:36:00 Test Item Value Reference Range Interpretation Comments HEMOGLOBIN (BEAKER) (test code = 6.0 GM/DL 11.2-15.7 LL 410) HEMATOCRIT (BEAKER) (test code = 22.6 % 34.1-44.9 L 411) TISSUE [id number] 15:28:00Surgical Pathology Report Case: [id number] Authorizing Provider: Criss Monroe MD Collected: 01/18/2019 0930 Ordering Location: [address] Received: 01/18/2019 1359 Service Pathologist: Sola Kingston MD Specimen: Polyp, Colon - Sigmoid COLON, SIGMOID POLYP, POLYPECTOMY- TUBULAR ADENOMA-HIGH GRADE DYSPLASIA NOT SEEN Signing Pathologist Direct Phone Line: [phone] signed by Sola Kingston MD on 01/19/2019 at 3:28 [id number] and postoperative diagnosis: Other iron deficiency anemiaReceived in one part. Polyp, colon-sigmoidReceived in formalin labeled with thepatient's name, accession number and "polyp, colon-sigmoid" is a 0.4-cm pino polyp which is submittedin toto in A1. CG/bc Performed.FL, UGI, WITHOUT [id number] 13:45:00Reason for exam:->Suggestion of large hiatal hernia [...] MDReport Verified Date/Time: 01/19/2019 13:45:41 Reading Location: [facility] B1 C013X OrthoConsult [facility] MET[facility]OLIC [id number] 08:32:00 Test Item Value Reference Range Interpretation [...] (test code = 413) VITAMIN B12 AND [id number] 05:50:00 Test Item Value Reference Range Interpretation Comments VITAMIN B12 (BEAKER) (test code = 323 pg/mL 213-816 774) FOLATE (BEAKER) (test code = 362) 11.0 ng/mL >=7.0 BASIC METABOLIC [id number] 05:46:00 Test Item Value Reference Range Interpretation [...] (BEAKER) (test code = 413) BASIC METABOLIC [id number] 06:19:00 Test Item Value Reference Range Interpretation [...] Specimen slightly ictericCBC W/PLT COUNT & AUTO [id number] 05:36:00 Test Item Value Reference Range Interpretation [...] = 2801) CBC W/PLT COUNT & AUTO [id number] 22:19:00 Test Item Value Reference Range Interpretation [...] = 2801) CBC W/PLT COUNT & AUTO [id number] 13:07:00 Test Item Value Reference Range Interpretation [...] PERCENT (BEAKER) (test code = 2801) PROTHROMBIN TIME/CPL6410-51-70 09:14:00 Test Item Value Reference Range Interpretation [...] PATIEN TS. CBC W/PLT COUNT & AUTO [id number] 07:07:00 Test Item Value Reference Range Interpretation [...] (BEAKER) (test code = 2801) BASIC METABOLIC [id number] 01:47:00 Test Item Value Reference Range Interpretation [...] PATIEN TS. CBC W/PLT COUNT & AUTO [id number] 01:42:00 Test Item Value Reference Range Interpretation [...] (BEAKER) (test code = 2801) Reference Lab [id number] 14:16:00 Test Item Value Reference Range Interpretation Comments Reference Lab Testing Negative Negative Perfor med at: BN - (test code = HELIAG) [facility] [address] [id number] Director: Dioni Jenkins MD, [facility] ne: [phone] [id number] SURGICAL PATHOLOGY, LEVEL YC8905-07-06 13:33:00 [place] [address] Laboratory Printed: 01/10/18 1333 MAHAD DAEMPathology Page: 1 Patient: CORNELIO RUFFIN Birthdate: 1955 Age/Sex: 62/F Spec#: [id number]: Tyrell Patino MD Specimen Date: 01/07/18 Received Date: 01/07/18 Specimen: POLYP, COLON CLINICAL DIAGNOSIS anemia PATHOLOGIC DIAGNOSIS Cecal polyp, polypectomy: - Tubular adenoma. Comment: There is no high grade dysplasia or malignancy present. Pathologist:Crystal Brumfield MD Entered by:01/10/18 - 7216 LAB.YGP PROCEDURES: 36675 GROSS DESCRIPTION A. POLYP, COLON CECUM The specimen is received in 10% formalin, and is labeled with the patient's name and "cecumcolon polyp." The specimen consists of two pink-pino soft tissue fragments measuring 1.2 x0.8 x 0.5 cm in aggregate. The largest fragment bisected. The specimen is entirelysubmitted in one cassette. Dictated by: Tina Kimball Entered by: 01/07/18 - 1318 LAB.YGP Patient: CORNELIO RUFFIN Re01/05/18Loc: T4-A MR#: [id number] CONTINUED ON NEXT PAGE Dis: 01/08/18ta: DIS IN [address] [address] Laboratory Printed: 01/10/18 [facility] DAEMPathology Page: 2 Patient: CORNELIO RUFFIN [id number] (Continued) GROSS DESCRIPTION (Continued) MICROSCOPIC DESCRIPTION A microscopic examination was performed to arrive at the diagnostic conclusion reported. Signed (Electronically Signed) Crystal Brumfield MD 01/10/18 Patient: CORNELIO RUFFIN Re01/05/18Loc: T4-A MR#: [id number] ENDOF REPORT Dis: 01/08/18ta: DIS JWSmnlfejyl5355-30-62 11:30:00 Test Item Value Reference Range Interpretation [...] 8.9 mg/dL 7.8-10.44 N code = CA) Mayvbshef1409-45-05 06:56:00 Test Item Value Reference Range Interpretation Comments Chemistry (test code = MG) 1.8 mg/dL 1.6-2.6 N Comment Add to AM labsComment Add to AM hbmeSwszrcqcs9647-86-52 06:56:00 Test Item Value Reference Range Interpretation [...] than 8. 3 High: 5.6 - 8.3 [place]: 3.7 - 5.[address] rage: 2.5 - 3.7 Prote ction probable: Less than 2.5 Comment Add to AM labsComment Add to AM [id number] 04:30:00 Test Item Value Reference Range Interpretation [...] code = BASO#) 0.1 thou/uL 0.0-0.2 N [id number] 04:24:00 Test Item Value Reference Range Interpretation [...] 8.9 mg/dL 7.8-10.44 N code = CA) [id number] 15:26:00 Test Item Value Reference Range Interpretation Comments Hematology (test code = HGBT) 8.8 g/dL 12.0-16.0 L Hematology (test code = HCTT) 29.5 % 36.0-47.0 L 07456 SURGICAL PATHOLOGY, LEVEL [id number] 14:22:00 [place] [address] Laboratory Printed: 01/07/18 1423 [facility] DAEMPathology Page: 1 Patient: CORNELIO RUFFIN Birthdate: 1955 Age/Sex: 62/F Spec#: [id number]: Tyrell Patino MD Specimen Date: [...] MD Entered by:01/07/18 - 1117 LAB.YGP PROCEDURES: 01770/2, 36833/2, 64649 Patient: CORNELIO RUFFIN Re01/05/18Loc: T4-A MR#: [id number] CONTINUED ON NEXT PAGE Dis: Sta: ADM IN [address] [address] Laboratory Printed: 01/07/[address] [place] [address] DAEMPathology Page: 2 Patient: CORNELIO RUFFIN [id number] (Continued) GROSS DESCRIPTION A.GASTRIC BIOPSY The specimen [...] by: Tina Kimball Entered by: 01/06/18 - 3066 [facility].Y MICROSCOPIC DESCRIPTION A microscopic examination was performed to arrive at the diagnostic conclusion reported. Signed (Electronically Signed) Mike Green MD 01/07/18 Patient: CORNELIO RUFFIN Re01/05/18Loc: T4-A MR#: [id number] END OF REPORT Dis: Sta: ADM INChemistry - Benji [id number] 13:00:00 Test Item Value Reference Range Interpretation [...] 10.0 IU/m L = = DSDNAINTERP) Negative 10. 0 - 15.0 IU/mL = Equivocal Great er [...] Phadia AB Benji Package Inserts - Directions [facility], September,November 12, [employer] ic. Chemistry - Benji [id number] 13:00:00 Test Item Value Reference Range Interpretation Comments Chemistry - Benji 0.6 U/mL <4 Negative Testing (test code = M2T) Chemistry - Benji Less th an 4.0 U/mL Testing (test code = Negativ e 4.0 - 6.0 = [id number]) U/mL = Equivoc al Greater than 6. [...] Phadia AB Benji Package Inserts - Directions wanda, September,November 12, [employer] ic. Chemistry - Benji 0.6 U/mL <4 Negative Testing (test code = M2T) Chemistry - Benji Less th an 4.0 U/mL Testing (test code = Negativ e 4.0 - 6.0 = [id number]) U/mL = Equivoc al Greater than 6. [...] Phadia AB Benji Package Inserts - [facility] [place] [employer] ic. Chemistry - Benji [id number] 13:00:00 Test Item Value Reference Range Interpretation Comments Chemistry - Benji CENP, Chela -1, RNP70, Testing (test code = Scl-70, Longo, ELIAANAINTERP) SSA/Ro, SSB/L a IgGAntibodies: Less than 7.0 Benji U /mL = Negative 7.0 - 10.0 Benji U/mL = Equivocal Great er than 10.0 Benji U/mL = [id number] IgG: Less than 5.0 Benji U/mL = Negative 5.0 - 10.0 Benji U/mL = Equivocal Great er than 10.0 Benji U/mL = POSITIVE Chemistry - Benji [id number] 12:38:00 Test Item Value Reference Range Interpretation Comments Chemistry - Benji Testing (test 0.4 EliAU/mL <7 Negative code = ROBB) Comment add onChemistry - Benji [id number] 12:38:00 Test Item Value Reference Range Interpretation Comments Chemistry - Benji Testing (test 0.6 EliAU/mL <7 Negative code = CELTTGIGG) Comment add onChemistry - Benji [id number] 12:38:00 Test Item Value Reference Range Interpretation Comments Chemistry - Benji Less th an 7.0 Benji Testing (test code = U/mL = Negative 7.0 [id number]) - 10.0 Benji U/m L = Equivocal Great er than 10.0 Benji U/mL = POSITIVE Comment add onChemistry - [id number] 12:33:00 Test Item Value Reference Range Interpretation Comments Chemistry - Specials Non-Reactive NonReactive The ames el screens (test code = HIVT) for HIV-1 p24 Antigen HIV-1/HIV-2Anti body. [id number] 10:27:00 Test Item Value Reference Range Interpretation Comments Immunology (test code = SYPHABT) Nonreactive Nonreactive [id number] 10:25:00 Test Item Value Reference Range Interpretation [...] Hematology (test code = MODERATE=15-30 cells 0-5/hpf WV) (100X) Hematology (test code = MODERATE=16-30 cells 0-5/hpf HYPO) (100X) Hematology (test code = SLIGHT = 2-3 cells 0-2/hpf POLY) (100X) Hematology (test code = MODERATE= 6-15 cells 0-1/hpf OV) (100X) Hematology (test code = Appears Adequate PCOMMENT) [id number] 10:07:00 Test Item Value Reference Range Interpretation [...] (3) (test N code = OCCSTS1) Comment [id number] 16:59:00 Test Item Value Reference Range Interpretation [...] MPV) 10.9 fL 7.4-10.4 H Chemistry - [id number] 13:59:00 Test Item Value Reference Range Interpretation [...] is considered immu ne to HBV infection. [id number] 12:26:00 Test Item Value Reference Range Interpretation [...] = MPV) 5.3 fL 7.4-10.4 L Type [id number] 11:29:00 Test Item Value Reference Range Interpretation Comments Blood Type Rh (test code = BT) O POSITIVE Antibody Screen (test code = ABSC) NEGATIVE Received Blood Or Been w/in Past 90 Days? UNKNOWNReceived Blood Or Been w/in Past 90 Days? NOScheduled Surgery Date: NO SURGERYIs Surgery Date Greater than 7 days from now? NOPacked Cells - [id number] 11:29:00 [id number] [facility] TFUSE 01/06/18 [id number] 05:27:00 Test Item Value Reference Range Interpretation [...] code 149 U/L 8-55 H = ALT) [id number] 05:18:00 Test Item Value Reference Range Interpretation [...] BASO#) 0.0 thou/uL 0.0-0.2 N Chemistry - [id number] 00:59:00 Test Item Value Reference Range Interpretation Comments Chemistry - Specials (test Non-Reactive NonReactive code = THEPAIGM) Chemistry - Specials (test Non-Reactive S/CO NonReactive code = THBSAG) Chemistry - Specials (test Non-Reactive NonReactive code = INTHBCM) Chemistry - Specials (test Non-Reactive NonReactive code = INTHEPC) Chemistry - BNP, HgbA1c, [id number] 19:45:00 Test Item Value Reference Range Interpretation Comments Chemistry - BNP, HgbA1c, PTHi 100.4 pg/mL 0-100 H (test code = BNP) Comment add [id number] 19:38:00 Test Item Value Reference Range Interpretation Comments Chemistry (test 1.5 ng/mL 0-6.6 N code = CKMBM-T) Chemistry (test Less than < 0.028 code = TROPI-T) 0.010 ng/mL Reference Ra nge 0.00 - 0.028 ng /mL Negative 0.029 - 0.29 ng/mL Indetermi willie Greater or Equa l to 0.3 ng/mL Stron gly suggests W[place] Comment add onChemistry - [id number] 18:21:00 Test Item Value Reference Range Interpretation Comments Chemistry - Specials (test code = 24.27 ng/mL 10-291 N LINDSAY) [id number] 18:14:00 Test Item Value Reference Range Interpretation [...] Hematology (test code = MODERATE=15-30 cells 0-5/hpf WV) (100X) Hematology (test code = SLIGHT = [...] Hematology (test code = Appears Adequate PCOMMENT) [id number] 17:59:00 Test Item Value Reference Range Interpretation [...] code 220 U/L 8-55 H = ALT) [id number] 17:59:00 Test Item Value Reference Range Interpretation Comments Chemistry (test code = IRON) 15 ug/dL 50-170 L [id number] 17:59:00 Test Item Value Reference Range Interpretation Comments Chemistry (test code = TIBC) 386 mcg/dL 265-497 N [id number] 17:50:00 Test Item Value Reference Range Interpretation Comments Coagulation (test 13.3 SEC 12.0-14.7 N code = PT-T) Coagulation (test 1.0 ATTE NTION: READ code = INR) CAREFULLY-- The recommended the rapeutic ranges for oral anticoagulanttr eatments are: ------ Low Inte nsity: 1.5 - 2.0 Moderate In tensity: 2.0 - 3.0 High Inten sity (1): 2.5 - 3.5 High Inte nsity (2): 3.0 - 4.0 CRITICAL: > 4.0 Anticoagulant? NONEMedical Necessity SUSPECT COAGULOPATHYAnticoagulant? NONEMedical Necessity: SUSP [id number] 17:50:00 Test Item Value Reference Range Interpretation Comments Coagulation (test code = PTT) 23.4 SEC 22.9-36.1 N Anticoagulant? NONEMedical Necessity SUSPECT COAGULOPATHYAnticoagulant? NONEMedical Necessity: SUSP COAG
[2022-09-10] MEDS ORDERED: ACETAMINOPHEN 325 MG TABLET ONE (20:32)
--- NOTE | 2022-09-10 21:01 | ER ---
Nurse's Notes [facility] Name: Irma Cain Age: 67 yrs Sex: Female : 1955 Arrival Date: 09/10/2022 Time: 19:05 Bed 17 Private MD: Diagnosis: Pain in right wrist-chronic;Pain in right arm Presentation: 09/10 19:15 Chief complaint: Patient states: "on July 21 I broke my right arm and the pain as6 has gotten worse." pt denies any new injury. Coronavirus screen: At this time, the client does not indicate any symptoms associated with coronavirus-19. Ebola Screen: No symptoms or risks identified at this time. Initial Sepsis Screen: Does the patient meet any 2 criteria? No. Patient's initial sepsis screen is negative. Does the patient have a suspected source of infection? No. Patient's initial sepsis screen is negative. Risk Assessment: Do you want to hurt yourself or someone else? Patient reports no desire to harm self or others. Onset of symptoms was July 21, 2022. 19:15 Method Of Arrival: Ambulatory as6 19:15 Acuity: FELA 3 as6 Historical: - Allergies: 19:19 Aspirin; as6 19:19 Talwin; as6 19:19 Neosporin (gxa-zva-zuovj); as6 - PMHx: 19:19 Asthma; Hypertensive disorder; UNMEDICATED; Pneumonia; as6 - PSHx: 19:19 Cholecystectomy; as6 - Immunization history:: Client reports receiving the 2nd dose of the Covid vaccine, moderna Flu vaccine status is unknown. - Social history:: Smoking status: Patient denies any tobacco usage or history of. Screenin:32 [facility] ED Fall Risk Assessment (Adult) History of falling in the last 3 months, pf1 including since admission No falls in past 3 months (0 pts) Confusion or Disorientation No (0 pts) Intoxicated or Sedated No (0 pts) Impaired Gait No (0 pts) Mobility Assist Device Used No (0 pt) Altered Elimination No (0 pt) Score/Fall Risk Level 0 - 2 = Low Risk Oriented to surroundings, Maintained a safe environment, Educated pt \\T\\ family on fall prevention, incl call for assistance when getting out of bed, Assessed \\T\\ reinforced patient's understanding of fall precautions, Provided non-skid footwear, Hourly rounding (assess needs \\T\\ fall precautionary measures) done, Used ambulatory aids as needed (educated on \\T\\ assisted with), Used gait belt as appropriate. Abuse screen: Denies threats or abuse. Nutritional screening: No deficits noted. Tuberculosis screening: No symptoms or risk factors identified. Assessment: 20:00 General: Appears uncomfortable, well groomed, well developed, Behavior is calm, pf1 cooperative, appropriate for age. 20:00 Pain: Complains of pain in right forearm and right wrist. Neuro: Level of Consciousness pf1 is awake, alert, obeys commands, Oriented to person, place, time, situation. Cardiovascular: No deficits noted. Capillary refill < 3 seconds Patient's skin is warm and dry. Respiratory: No deficits noted. Airway is patent Trachea midline Respiratory effort is even, unlabored, Respiratory pattern is regular, symmetrical. GI: No deficits noted. No signs and/or symptoms were reported involving the gastrointestinal system. : No deficits noted. No signs and/or symptoms were reported regarding the genitourinary system. EENT: No deficits noted. No signs and/or symptoms were reported regarding the EENT system. Derm: No deficits noted. No signs and/or symptoms reported regarding the dermatologic system. Musculoskeletal: Circulation, motion, and sensation intact. Capillary refill < 3 seconds, patient C/O pain to right wrist/forearm since June. Patient has a wrist brace on at this time. Patient stated has an appointment with ortho next week for a consult visit. 21:21 Reassessment: Patient appears in no apparent distress at this time. Patient is alert, pf1 oriented x 3, equal unlabored respirations, skin warm/dry/pink. Patient states feeling better. Patient states symptoms have improved. Vital Signs: 19:15 BP 166 / 59; Pulse 102; Resp 20 S; Temp 97.5(O); Pulse Ox 96% on R/A; Weight 50.35 kg as6 (R); Height 5 ft. 0 in. (152.40 cm) (R); Pain 10/10; 20:33 BP 137 / 56; Pulse 92; Resp 18; Pulse Ox 99% ; Pain 10/10; pf1 21:20 BP 97 / 73; Pulse 85; Resp 19; Temp 98; Pulse Ox 100% on R/A; Pain 2/10; pf1 19:15 Body Mass Index 21.68 (50.35 kg, 152.40 cm) as6 ED Course: 19:05 Patient arrived in ED. mr 19:19 Triage completed. as6 19:21 Arm band placed on. as6 19:33 Moi Rivera PA is PHCP. cp 19:33 Adelso Jay MD is Attending Physician. cp 20:00 Patient has correct armband on for positive identification. Bed in low position. Call pf1 light in reach. 20:23 Marlen perez, CANDACE is Primary Nurse. pf1 21:21 No provider procedures requiring assistance completed. Patient did not have IV access pf1 during this emergency room visit. Administered Medications: 20:32 Drug: Tylenol 650 mg Route: PO; pf1 20:41 Follow up: Response: No adverse reaction; Pain is unchanged, physician notified pf1 Medication: 20:00 VIS not applicable for this client. pf1 Outcome: 21:00 Discharge ordered by MD. cp 21:22 Discharged to home ambulatory. pf1 21:22 Condition: improved 21:22 Discharge instructions given to patient, Instructed on discharge instructions, follow up and referral plans. Demonstrated understanding of instructions, follow-up care, medications, Prescriptions given X 2. 21:23 Patient left the ED. pf1 Signatures: Harjit Amy mr Moi Rivera PA PA cp Carlos Olguin, CANDACE RN as6 Marlen perez, CANDACE RN pf1 Corrections: (The following items were deleted from the chart) 20:26 20:23 General: Appears pf1 pf1
--- NOTE | 2022-09-10 21:01 | EDPHYS ---
Physician Documentation [facility] Name: Irma Cain Age: 67 yrs Sex: Female : 1955 Arrival Date: 09/10/2022 Time: 19:05 Bed 17 Private MD: ED Physician Adelso Jay HPI: 09/10 20:15 This 67 yrs old Female presents to ER via Ambulatory with complaints of Arm Pain. cp 20:15 The patient or guardian complains of pain, that is chronic. The complaints affect the cp right wrist and right forearm. Onset: The symptoms/episode began/occurred 07-21-2022 after fall that caused fracture of right wrist. Treatment prior to arrival includes: no previous treatment. 20:15 Associated signs and symptoms: The patient has no apparent associated signs or cp symptoms, Pertinent negatives: reinjury. Historical: - Allergies: 19:19 Aspirin; as6 19:19 Talwin; as6 19:19 Neosporin (rrb-dcp-cjjjr); as6 - PMHx: 19:19 Asthma; Hypertensive disorder; UNMEDICATED; Pneumonia; as6 - PSHx: 19:19 Cholecystectomy; as6 - Immunization history:: Client reports receiving the 2nd dose of the Covid vaccine, moderna Flu vaccine status is unknown. - Social history:: Smoking status: Patient denies any tobacco usage or history of. ROS: 20:20 Constitutional: Negative for body aches, chills, fever, poor PO intake. cp 20:20 MS/extremity: Positive for pain, paresthesias, of the right hand and right wrist, cp radiating pain to proximal right arm and right shoulder. 20:20 Eyes: Negative for injury, pain, redness, and discharge. cp 20:20 Neck: Negative for pain with movement, pain at rest. 20:20 Cardiovascular: Negative for chest pain, palpitations. 20:20 Respiratory: Negative for cough, shortness of breath, wheezing. 20:20 Abdomen/GI: Negative for abdominal pain, nausea, vomiting, and diarrhea. 20:20 Back: Negative for pain at rest, pain with movement. 20:20 All other systems are negative. Exam: 20:20 Constitutional: The patient appears in no acute distress, alert, awake, non-toxic, well cp developed, well nourished, anxious. 20:20 Head/Face: Normocephalic, atraumatic. cp 20:20 Chest/axilla: Inspection: normal. 20:20 Cardiovascular: Rate: tachycardic, Rhythm: regular, Pulses: Pulses are 2+ in right radial artery. 20:20 Respiratory: the patient does not display signs of respiratory distress, Respirations: normal, no use of accessory muscles, no retractions, labored breathing, is not present, Breath sounds: are clear throughout, no decreased breath sounds, no stridor, no wheezing. 20:20 Abdomen/GI: Exam negative for discomfort, distension, guarding, Inspection: abdomen appears normal. 20:20 Back: pain, is absent, ROM is normal. 20:20 Musculoskeletal/extremity: Extremities: grossly normal except: noted in the right wrist: decreased ROM, deformity, pain, tenderness, ROM: limited active range of motion, in the right wrist, limited passive range of motion, in the right wrist, Perfusion: the extremity is normally perfused throughout, the right hand Sensation intact. 20:20 Neuro: Orientation: to person, place \T\ time. Mentation: is normal, Sensation: light touch is decreased in the right wrist and right hand. Vital Signs: 19:15 BP 166 / 59; Pulse 102; Resp 20 S; Temp 97.5(O); Pulse Ox 96% on R/A; Weight 50.35 kg as6 (R); Height 5 ft. 0 in. (152.40 cm) (R); Pain 10/10; 20:33 BP 137 / 56; Pulse 92; Resp 18; Pulse Ox 99% ; Pain 10/10; pf1 21:20 BP 97 / 73; Pulse 85; Resp 19; Temp 98; Pulse Ox 100% on R/A; Pain 2/10; pf1 19:15 Body Mass Index 21.68 (50.35 kg, 152.40 cm) as6 MDM: 19:51 Patient medically screened. cp 20:20 Differential diagnosis: chronic pain, neuropathy, non-healing fracture. cp 21:00 Data reviewed: vital signs, nurses notes. cp 21:00 I considered the following discharge prescriptions or medication management in the emergency department Medications were administered in the Emergency Department. See MAR. Test considered but Not performed: X-ray: right wrist. Counseling: I had a detailed discussion with the patient and/or guardian regarding: the historical points, exam findings, and any diagnostic results supporting the discharge/admit diagnosis, the need for outpatient follow up, for definitive care, a orthopedic surgeon, a buildings painter, to return to the emergency department if symptoms worsen or persist or if there are any questions or concerns that arise at home. Response to treatment: the patient's symptoms have mildly improved after treatment, and as a result, I will discharge patient. Administered Medications: 20:32 Drug: Tylenol 650 mg Route: PO; pf1 20:41 Follow up: Response: No adverse reaction; Pain is unchanged, physician notified pf1 Disposition: 21:33 Co-signature as Attending Physician, Adelso Jay MD I agree with the assessment and kdr plan of care. Disposition Summary: 09/10/22 21:00 Discharge Ordered Location: Home cp Problem: an ongoing problem cp Symptoms: have improved cp Condition: Stable cp Diagnosis - Pain in right wrist - chronic cp - Pain in right arm cp Followup: cp - With: Private Physician - When: 2 - 3 days - Reason: Recheck today's complaints Discharge Instructions: - Discharge Summary Sheet cp - Chronic Pain, Adult cp Forms: - Medication Reconciliation Form cp - Thank You Letter cp - Antibiotic Education cp - Prescription Opioid Use cp Prescriptions: - Neurontin 300 mg Oral Capsule - take 1 capsule by ORAL route At bedtime; 20 capsule; Refills: 0, Product cp Selection Permitted - Tramadol 50 mg Oral Tablet - take 1 tablet by ORAL route every 8 hours as needed; 12 tablet; Refills: 0, cp Product Selection Permitted Signatures: Adelso Jay MD MD [facility] Moi Rivera PA PA cp Carlos Olguin RN RN as6 Marlen perez RN RN pf1
[2022-09-10 22:01] VITALS: BP 97/73; TEMP 98; O2SAT 100
== END 2022-09-10 21:23 | disposition home or self-care (01) ==
LOC: ER 18:59
DX: M25.531 Pain in right wrist (principal); M79.631 Pain in right forearm
CPT/HCPCS: 99283

== ENCOUNTER 2022-09-17 11:37 | Observation (INO) | payer OTHER ==
--- OUTSIDE RECORDS SUMMARY | 2022-09-17 11:53 | XMS REPORT | Continuity of Care Document ---
:1955 Author Organization [facility] t Address [address] [place] [address] Care Team Providers Name Role Phone Cuba Gardiner MD Primary Care Physician Unavailable BOBBY SIMS Attending Clinician Unavailable MEERA RUTH Attending Clinician Unavailable Meera Huynh S Attending Clinician CANDIDA BURGESS Attending Clinician Unavailable CUBA GARDINER Attending Clinician Unavailable Doctor Unassigned, [place] Attending Clinician Unavailable Sharla Ashraf Attending Clinician SHARLA TYLER Attending Clinician Unavailable Cuba Gardiner MD Attending Clinician Maribell Bhatia Attending Clinician Demetrio Conteh RN Attending Clinician Unavailable Titi Hahn DO Attending Clinician Prashanth Vo MD Attending Clinician Rachelle Rodriguez Attending Clinician Provider, [facility] Attending Clinician Unavailable 2, [facility] Attending Clinician Unavailable Kaushal MARIA, Zo Attending Clinician Unavailable Pob[facility], Acute Care [facility] [...] Clinician Unavailable Lopez Nicole Attending Clinician Unavailable BOBYB SIMS Admitting Clinician Unavailable Prashanth Vo MD Admitting Clinician SB CANELA Admitting Clinician Unavailable Bobby Sims MD Admitting Clinician ROYCE RANGEL Admitting Clinician Unavailable ARISTEO DAVIDSON Admitting Clinician Unavailable Lopez Nicole Admitting Clinician Unavailable Payers Payer Name Policy Type Policy Number Effective Date Expiration Date S supa HUMANA CHOICE [id number] 2014 00:00:00 Problems Condition Condition Condition Status Onset Resolution Last Treating Co mments Source Name Details Category Date Date Treatment Clinician Date Troponin I Troponin I Disease Active 2020-0 U nivers above above 7-30 [place] range 00 [place] Fatigue Fatigue Disease Active 2020-0 Univers 7-30 ity of 00:00: [place] [facility] Diarrhea Diarrhea Disease Active 2020-0 Unive rs 7-30 ity of 00:00: [place] [facility] Near Near Disease Active 2020-0 Univers syncope syncope 7-29 ity of 00:00: [place] [facility] Elevated Elevated Disease Active 2020-0 Unive rs pancreatic pancreatic 7-22 it y of enzyme enzyme 00:00: [place] 00 Medical Branch Dehydratio Dehydratio Disease Active 2020-0 U nivers n n 5-14 ity of 00:00: [place] [facility] Hiatal Hiatal Disease Active 2020-0 Univers hernia hernia 5-12 ity of with GERD with GERD 00:00: [place] 00 Medical esophagiti esophagiti Br anch s s Gastroesop Gastroesop Disease Active 2020-0 Overview : Univers hageal hageal 4-28 Formattin ity of reflux reflux 00:00: g of this [place] disease, disease, 00 note Medica l esophagiti esophagiti might be Branch s presence s presence different not not from the specified specified original. Added automatic ally from request for surgery [id number] Hiatal Hiatal Disease Active Overview: Univer s hernia hernia 3-02 Formattin ity of 00:00: g of this 00 note Medical might be Branch different from the original. 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 0-04 it y of ccal ccal 00:00: [place] infection infection 00 [facility] RACHEL RACHEL Disease Active 2015-07 Univers (obstructi [...] Branch Osteoporos Osteoporos Disease Active 2015-07 U nivers is is 0-04 ity of 00:00: [place] [...] 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[place] 00 [facility] Iron Iron Disease Active 2015-07 Univers deficiency deficiency 0-04 it y of anemia anemia 00:00: [place] 00 Medical Branch Changing Changing Disease Active 2016-1 Unive rs skin skin 0-04 ity of lesion lesion 00:00: [place] 00 Medical Branch Ankle Ankle Disease Active 2016-0 Univers pain, left pain, left 4-06 it [...] Luke s rin nce 00:00: Medical 00 [place] Neomycin Propensi Active Other - See 2019-0 [...] Medical Branch Acetamin Propensi Active Unknown - Uni vers ophen ty to See comments 7-20 ity of adverse 00:00: [place] reaction 00 Medical s Branch ASPIRIN DRUG Active Anaphylaxis Univ ers INGREDI 4-06 ity of 00:00: [place] 00 Medical Branch BENZALKO DRUG Active Other-Cmnt Univ ers NIUM INGREDI 4-06 ity of CHLORIDE 00:00: [place] 00 Medical Branch TALWIN DRUG Active Dizziness Univers COMPOUND 4-06 ity of 00:00: [place] 00 Medical Branch Aspirin Propensi Active Anaphylaxis Un bogdan ty to -06 ity of adverse 00:00: [place] reaction 00 Medical s Branch Benzalko Propensi Active Other - See blisters Univers nium ty to comments - ity of Chloride adverse 00:00: [place] reaction 00 Medical s Branch Talwin Propensi Active Dizziness vomitting Un bogdan Compound ty to - ity of adverse 00:00: [place] reaction 00 Medical s Branch Social History Social Habit Start Date Stop Date Quantity Comments Source History SDOH [facility]d [facility] Drinks History SDOH [facility] Alcohol Binge Medical Radha ter History SDOH [facility] Alcohol Comment Medical C enter Exposure to 2022-09-06 2022-09-16 Not sure [facility]-CoV-2 00:00:00 18:36:00 [facility] (event) Branch Alcohol intake 2019-03-06 2019-03-[address] [facility] 00:[facility] 00:00:00 non-drinker of Medical Ce nter alcohol (finding) History SDOH 2019-01-18 2019-01-[address] [facility] Alcohol Frequency 00:00:00 00:00:00 [facility] Center Tobacco use and 2019-01-16 2019-01-[address] [facility] [address] [facility] exposure 00:00:00 00:00:00 [facility] Center Sex Assigned At [address] 00:00:00 00:00:00 [facility] Center Smoking Status Start Date Stop Date Source Never smoked tobacco [facility] Medications Ordered Filled Start Stop Current [...] nivers (VENTOLIN) 4-28 Puffs ity of 90 11:30: every 6 [place] mcg/actuati 55 (six) Medical on inhaler hours as Branc h needed for Wheezing or Shortness of Breath. losartan 50 2020-0 Yes [id number] 50mg Take 1 Univers mg tablet 4-28 tablet by ity o f 00:00: mouth [place] 00 daily. Medical Branch losartan 50 2020-0 Yes [id number] 50mg Take 1 Univers mg tablet 4-28 tablet by ity o f 00:00: mouth [place] 00 daily. Medical Branch losartan 50 2020-0 Yes [id number] 50mg Take 1 Univers mg tablet 4-28 tablet by ity o f 00:00: mouth [place] 00 daily. Medical Branch losartan 50 2020-0 Yes [id number] 50mg Take 1 Univers mg tablet 4-28 tablet by ity o f 00:00: mouth [place] 00 daily. [facility] Branch losartan 50 2020-0 Yes [id number] 50mg Take 1 Univers mg tablet 4-28 tablet by ity o f 00:00: mouth [place] 00 daily. [facility] Branch ALPRAZolam 2020- No Univer s 2 mg tablet 11-15 ity of 00:00: 00:00 [place] 00 :00 Medical Branch ALPRAZolam 2020-0 2020- No Univer s 2 mg tablet 11-15 ity of 00:00: 00:00 [place] 00 :00 Medical Branch venlafaxine 2020-0 Yes 75mg Take 75 mg Univers XR 75 mg 24 4-14 by mouth 2 it y of hr capsule 00:00: (two) [place] 00 times Medical daily. Branch venlafaxine 2020-0 Yes 75mg Take 75 mg Univers XR 75 mg 24 4-14 by mouth 2 it y of hr capsule 00:00: (two) [place] 00 times Medical daily. Branch venlafaxine 2020-0 Yes 75mg Take 75 mg Univers XR 75 mg 24 4-14 by mouth 2 it y of hr capsule 00:00: (two) [place] 00 times Medical daily. Branch venlafaxine 2020-0 Yes 75mg Take 75 mg Univers XR 75 mg 24 4-14 by mouth 2 it y of hr capsule 00:00: (two) [place] 00 times Medical daily. Branch venlafaxine 2020-0 Yes 75mg Take 75 mg Univers XR 75 mg 24 4-14 by mouth 2 it y of hr capsule 00:00: (two) [place] 00 times Medical daily. Branch zolpidem 10 Yes 10mg Take 10 mg Univers mg tablet 4-08 by mouth ity of 00:00: at [place] [address] bedtime. Medical Branch zolpidem 10 2020-0 Yes 10mg Take 10 mg Univers mg tablet 4-08 by mouth ity of 00:00: at [place] [address] bedtime. Medical Branch zolpidem 10 2020-0 Yes 10mg Take 10 mg Univers mg tablet 4-08 by mouth ity of 00:00: at [place] [address] bedtime. Medical Branch zolpidem 10 2020-0 Yes 10mg Take 10 mg Univers mg tablet 4-08 by mouth ity of 00:00: at [place] [address] bedtime. Medical Branch zolpidem 10 2020-0 Yes 10mg Take 10 mg Univers mg tablet 4-08 by mouth ity of 00:00: at [place] [address] bedtime. Medical Branch ALPRAZolam 2021-0 2021- No .5mg Take 0.5 Un bogdan 0.5 mg 4-08 04-28 mg by ity of tablet 00:00: 00:00 mouth 2 [place] 00 :00 (two) Medical times Branch daily. ALPRAZolam 1-0 2021- No .5mg Take 0.5 Un bogdan 0.5 mg 4-08 04-28 mg by ity of tablet 00:00: 00:00 mouth 2 [place] 00 :00 (two) Medical times Branch daily. atomoxetine 1-0 Yes 40mg Take 40 mg Univers 40 mg 3-25 by mouth 2 ity of capsule 00:00: (two) [place] times Medical daily. Branch temazepam 1-0 Yes 30mg Take 30 mg Un bogdan 30 mg 3-25 by mouth ity of capsule 00:00: at [place] bedtime. Medical Branch atomoxetine 1-0 Yes 40mg Take 40 mg Univers 40 mg 3-25 by mouth 2 ity of capsule 00:00: (two) [place] times Medical daily. Branch temazepam 1-0 Yes 30mg Take 30 mg Un bogdan 30 mg 3-25 by mouth ity of capsule 00:00: at [place] bedtime. Medical Branch atomoxetine 1-0 Yes 40mg Take 40 mg Univers 40 mg 3-25 by mouth 2 ity of capsule 00:00: (two) [place] times Medical daily. Branch temazepam 1-0 Yes 30mg Take 30 mg Un bogdan 30 mg 3-25 by mouth ity of capsule 00:00: at [place] bedtime. Medical Branch atomoxetine 1-0 Yes 40mg Take 40 mg Univers 40 mg 3-25 by mouth 2 ity of capsule 00:00: (two) [place] times Medical daily. Branch temazepam 1-0 Yes 30mg Take 30 mg Un bogdan 30 mg 3-25 by mouth ity of capsule 00:00: at [place] bedtime. Medical Branch atomoxetine 1-0 Yes 40mg Take 40 mg Univers 40 mg 3-25 by mouth 2 ity of capsule 00:00: (two) [place] times Medical daily. Branch temazepam 1-0 Yes 30mg Take 30 mg Un bogdan 30 mg 3-25 by mouth ity of capsule 00:00: at [place] bedtime. Medical Branch ARIPiprazol Yes TAKE 1 TO U nivers e 2 mg 3-11 2 TABLETS ity of tablet 00:00: BY MOUTH [place] [facility] 1 TO U nivers e 2 mg 3-11 2 TABLETS ity of tablet 00:00: BY MOUTH [place] EVERY Medical NIGHT AT [facility] ARIPiprazol Yes TAKE 1 TO U nivers e 2 mg 3-11 2 TABLETS ity of tablet 00:00: BY MOUTH [place] EVERY Medical NIGHT AT [facility] ARIPiprazol Yes TAKE 1 TO U nivers e 2 mg 3-11 2 TABLETS ity of tablet 00:00: BY MOUTH [place] EVERY Medical NIGHT AT [facility] ARIPiprazol Yes TAKE 1 TO U nivers e 2 mg 3-11 2 TABLETS ity of tablet 00:00: BY MOUTH [place] EVERY Medical NIGHT AT [facility] DALIRESP 2020- No 1{tbl} Take 1 Univ ers 250 mcg Tab 3-11 -28 tablet by it y of 00:00: 00:00 mouth [place] 00 :00 daily. Medical Branch DALIRESP 2020- No 1{tbl} Take 1 Univ ers 250 mcg Tab 3-11 04-28 tablet by it y of 00:00: 00:00 mouth [place] 00 :00 daily. Medical Branch SERTraline Yes 100mg Take 100 Un bogdan 100 mg 2-04 mg by ity of tablet 00:00: mouth at [place] [address] bedtime. Medical Branch SERTraline Yes 100mg Take 100 Un bogdan 100 mg 2-04 mg by ity of tablet 00:00: mouth at [place] [address] bedtime. Medical Branch SERTraline Yes 100mg Take 100 Un bogdan 100 mg 2-04 mg by ity of tablet 00:00: mouth at [place] [address] bedtime. Medical Branch SERTraline Yes 100mg Take 100 Un bogdan 100 mg 2-04 mg by ity of tablet 00:00: mouth at [place] [address] bedtime. Medical Branch SERTraline Yes 100mg Take 100 Un bogdan 100 mg 2-04 mg by ity of tablet 00:00: mouth at [place] 00 bedtime. Medical Branch ergocalcife 2020-0 2020- No [id number] Take Univers rol, 02-28 50,000 ity of vitamin d2, 00:00: 04:59 Units by [place] 2,500 unit 00 :00 mouth Medical Cap weekly for Branch 6 doses. ergocalcife 2020-0 2020- No [id number] Take Univers rol, 02-28 50,000 ity of vitamin d2, 00:00: 04:59 Units by [place] 2,500 unit 00 :00 mouth Medical Cap weekly for Branch 6 doses. ergocalcife 2020-0 2020- No [id number] Take Univers rol, 02-28 50,000 ity of vitamin d2, 00:00: 04:59 Units by [place] 2,500 unit 00 :00 mouth Medical Cap weekly for Branch 6 doses. albuterol 2020-0 Yes 2{puff} Inhale 2 U nivers (VENTOLIN) 7-31 Puffs ity of 90 01:02: every 6 [place] mcg/actuati 13 (six) Medical on inhaler hours as Branc h needed for Wheezing or Shortness of Breath. omeprazole 2020-0 Yes 40mg Take 40 mg U nivers 40 mg 7-31 by mouth ity of capsule 01:02: daily. [address] Branch fluticasone 2020-0 Yes Inhale. Uni vers /umeclidin/ 7-31 ity of vilanter 01:02: [place] ([facility] 13 Medical ELLIPTA Branch INHALE) albuterol 2020-0 Yes 2{puff} Inhale 2 U nivers (VENTOLIN) 7-31 Puffs ity of 90 01:02: every 6 [place] mcg/actuati 13 (six) Medical on inhaler hours as Branc h needed for Wheezing or Shortness of Breath. omeprazole 2020-0 Yes 40mg Take 40 mg U nivers 40 mg 7-31 by mouth ity of capsule 01:02: daily. [address] Branch fluticasone 2020-0 Yes Inhale. Uni vers /umeclidin/ 7-31 ity of vilanter 01:02: [place] ([facility] 13 Medical ELLIPTA Branch INHALE) albuterol 2020-0 Yes 2{puff} Inhale 2 U nivers (VENTOLIN) 7-31 Puffs ity of 90 01:02: every 6 [place] mcg/actuati 13 (six) Medical on inhaler hours as Branc h needed for Wheezing or Shortness of Breath. omeprazole 2020-0 Yes 40mg Take 40 mg U nivers 40 mg 7-31 by mouth ity of capsule 01:02: daily. [place] [address] Medical Branch fluticasone 2020-0 Yes Inhale. Uni vers /umeclidin/ 7-31 ity of vilanter 01:02: [place] ([place] [address] Medical ELLIPTA Branch INHALE) albuterol 2020-0 Yes 2{puff} Inhale 2 U nivers (VENTOLIN) 7-31 Puffs ity of 90 01:02: every 6 [place] mcg/actuati 13 (six) Medical on inhaler hours as Branc h needed for Wheezing or Shortness of Breath. omeprazole 2020-0 Yes 40mg Take 40 mg U nivers 40 mg 7-31 by mouth ity of capsule 01:02: daily. [place] [address] Medical Branch fluticasone 2020-0 Yes Inhale. Uni vers /umeclidin/ 7-31 ity of vilanter 01:02: [place] ([place] [address] Medical ELLIPTA Branch INHALE) omeprazole 2020-0 Yes 40mg Take 40 mg U nivers 40 mg 7-31 by mouth ity of capsule 01:02: daily. [address] Branch fluticasone 2020-0 Yes Inhale. Uni vers /umeclidin/ 7-31 ity of vilanter 01:02: [place] ([address] ELLIPTA Branch INHALE) omeprazole 2020-0 Yes 40mg Take 40 mg U nivers 40 mg 7-31 by mouth ity of capsule 01:02: daily. [place] [address] Medical Branch fluticasone 2020-0 Yes Inhale. Uni vers /umeclidin/ 7-31 ity of vilanter 01:02: [place] ([place] [address] Medical ELLIPTA Branch INHALE) omeprazole 2020-0 Yes 40mg Take 40 mg U nivers 40 mg 7-31 by mouth ity of capsule 01:02: daily. [address] Branch fluticasone 2020-0 Yes Inhale. Uni vers /umeclidin/ 7-31 ity of vilanter 01:02: [place] ([facility] 13 Medical ELLIPTA Branch INHALE) omeprazole 2020-0 Yes 40mg Take 40 mg U nivers 40 mg 7-31 by mouth ity of capsule 01:02: daily. [address] fluticasone 2020-0 Yes Inhale. Uni vers /umeclidin/ 02-22 ity of vilanter 01:02: [place] ([address] Branch [address]) carvediloL 2020-0 2020- No [id number] 12.5mg Take 1 Univers 12.5 mg 7-31 08-31 tablet by ity of tablet 00:00: 04:59 mouth 2 [place] 00 :00 (two) Medical times [place] daily with meals for 30 days. carvediloL 2020-0 2020- No [id number] 12.5mg Take 1 Univers 12.5 mg 7-31 08-31 tablet by ity of tablet 00:00: 04:59 mouth 2 [place] 00 :00 (two) Medical times [place] daily with meals for 30 days. predniSONE 2020-0 Yes 10mg 10 mg, Unive rs (DELTASONE) 730 Oral, ity of tablet 10 22:45: DAILY, [place] mg 00 First dose Medical on [facility] Branch 02/22/20 at 1745, Until Discontinu ed, Routine ipratropium 2020-0 Yes 3mL 3 mL, Unive rs -albuterol 02-21 Inhalation ity of (DUONEB) 21:00: , QID, [place] 0.5 mg-3 00 First dose Medic al mg(2.5 mg on [facility] base)/3 mL 02/22/20 at nebulizer 1600, solution 3 Until mL Discontinu ed, Routine omeprazole 2020-0 Yes 40mg Take 40 mg U nivers 40 mg 7-30 by mouth ity of capsule 20:02: daily. [address] fluticasone 2020-0 Yes Inhale. Uni vers /umeclidin/ 02-21 ity of vilanter 20:02: [place] ([address] INHALE) ergocalcife 2020-0 Yes [id number] 50,000 Un bogdan rol 7- Units, ity of (vitamin 19:30: Oral, [place] d2) 00 QWEEKLY, Medical (CALCIFEROL First dose Br anch ) capsule on [facility] 50,000 02/22/20 at Units 1430, Until Discontinu ed, Routine loperamide 2020-0 Yes 2mg 2 mg, Univer s (IMODIUM 7-30 Oral, ity of A-D) 19:04: Q4HPRN, [place] capsule 2 12 Starting Medica l mg [facility] 02/22/20 at 1404, Until Discontinu ed, Routine, [...] First dose Medic al NaCl 0.9% on [facility] (NS) 100 mL 02/22/20 at MINI-BAG 0800, Until Discontinu ed, 100 mL carvediloL 2020-0 Yes 12.5mg 12.5 mg, U nivers (COREG) 7 Oral, BID ity of tablet 12.5 04:15: MEALS, [place] mg 00 First dose Medical on [facility] Branch 02/21/20 at 2315, Until Discontinu ed, Routine fluticasone 2020-0 Yes 1{puff} 1 Puff, Univers propion-sean 02-21 Inhalation it y of meterol 04:15: , Q12H, [place] (ADVAIR) 00 First dose Medic al 250-50 on [facility] mcg/dose 02/21/20 at inhalation 2315, disk 1 Puff Until Discontinu ed, Routine
Use approved by (Faculty and pager): ADC PROVIDER ALPRAZolam 2020-0 Yes .5mg 0.5 mg, Univ ers (XANAX) 02-21 Oral, ity of tablet 0.5 04:00: BIDPRN, [place] mg 00 Starting Medical [facility] 02/21/20 at 2300, Until Discontinu ed, Routine, anxiety venlafaxine 2019-0 2020- No 75mg 75 mg, Uni vers XR (EFFEXOR 7-30 07-30 Oral, TID, i ty of XR) 24 hr 03:45: 03:54 First dose [place] capsule 75 00 :51 on Wed Medical mg 02/21/20 at Branch 2245, Until Discontinu ed, Routine ipratropium 2019- No 3mL 3 mL, Univ ers -albuterol 02-21 Inhalation it y of (DUONEB) 01:37: 20:38 [...] [place]IDPRN, [place] 33 :27 Starting Medical [facility] Branch 02/21/20 at 1938, Until Wed02/21/20 at 2254, Routine, anxiety loperamide 2019- 2020- No [id number] 2mg Take 1 Univers 2 mg 02-21 08-10 capsule by ity of capsule 00:00: 04:59 mouth [place] 00 :00 every 4 Medical (four) Branch hours as needed for Diarrhea for up to 10 days. loperamide 2019-0 2020- No [id number] 2mg Take 1 Univers 2 mg 02-21 08-10 capsule by ity of capsule 00:00: 04:59 mouth [place] 00 :00 every 4 Medical (four) Branch hours as needed for Diarrhea for up to 10 days. ALPRAZolam 2019-0 2020- No [id number] .5mg Take 1 Univers 0.5 mg 02-21 08-05 tablet by ity of tablet 00:00: 04:59 mouth 3 [place] 00 :00 (three) Medical times Branch daily as needed (anxiety) for up to 5 days. ALPRAZolam 2020-0 2020- No [id number] .5mg Take 1 Univers 0.5 mg 02-21 tablet by ity of tablet 00:00: 04:59 mouth 3 [place] 00 :00 (three) Medical times Branch daily as needed (anxiety) for up to 5 days. ondansetron 2019- Yes 4mg 4 mg, Slow Univers (ZOFRAN 02-20 IV Push, ity of (PF)) 23:23: Q6HPRN, [place] injection 4 08 Starting Medi feliciano mg [...] at 1822, Routine, Pain (scale 4-6) acetaminoph Yes 650mg 650 mg, Un bogdan en 02-20 Oral, ity of (TYLENOL) 23:22: Q6HPRN, [place] tablet 650 56 Starting Medic al mg Wed Branch 02/21/20 at 1822, Until Discontinu ed, Routine, Pain (scale 1-3) cefTRIAXone 2019- No 1000mg 1,000 mg, Univers (ROCEPHIN) 02-20 IV ity of 1,000 mg in 16:00: 03:51 [place], [place] NaCl 0.9% 00 :59 Q12H ABX, Medic al (NS) 50 mL First dose Bra [facility] MINI-BAG on Wed02/21/20 at 1100, Until Discontinu ed, 50 mL
R dee for Anti-Infec tive: Empiric Therapy for Suspected Infection< br>Empiric Therapy Site: Respirator y
Durat ion of therapy: 72 hours NaCl 0.9% 2019- No 1000mL at 999 Uni vers (NS) bolus 02-20 mL/hr, ity of infusion 16:00: 16:00 1,000 mL, [place] as 1,000 mL 00 :00 IV Medical Piggyback, [place] ONCE, 1 dose, 02/21/20 at 1100, STAT doxycycline 2019-0 2020- No 100mg 100 mg, U nivers hyclate 02-14 Oral, ity of (Vibramycin 01:45: 00:41 ONCE, 1 [place] capsule 00 :00 dose, Wed Medic al 100 mg 02/14/20 at [place] 2045, SHANE
Re ason for Anti-Infec tive: Documented Infection< br>Documen leann Infection Site: Respirator y
Durat ion of Therapy: 7 days ondansetron 2019- 2020- No 4mg 4 mg, Slow Univers (ZOFRAN 02-14 IV Push, ity of (PF)) 00:45: 23:43 ONCE, 1 [place] injection 4 00 :00 dose, Wed Med ical mg 02/14/20 at [place] 1945, SHANE acetaminoph 2019- 2020- No 650mg 650 mg, U nivers en 02-14 Oral, ity of (TYLENOL) 00:45: 23:43 ONCE, 1 [place] tablet 650 00 :00 dose, Wed Medi feliciano mg 02/14/20 at [place] 1945, SHANE contrast 2019-0 2020- No Intravenou Un bogdan previously 02-14 s, ONCE, 1 it y of administere 00:00: 23:30 dose, Wed [place] d 0 mL 00 :00 02/14/20 at [facility] 1900, [place] Routine iohexol 2019-0 2020- No 120mL 120 mL, Unive rs (OMNIPAQUE 02-13 Intravenou it y of 350 23:45: 23:30 s, ONCE, 1 [place] BULK-150 00 :00 dose, Wed Medica l mL) 02/14/20 at [place] injection 1845, 120 mL Routine NaCl 0.9% [...] by mouth ity of capsule 19:27: daily. [place] [address] Medical Branch fluticasone 2020-0 Yes Inhale. Uni vers /umeclidin/ 02-13 ity of vilanter 19:27: [place] ([place] [address] Medical ELLIPTA Branch INHALE) omeprazole 2020-0 Yes 40mg Take 40 mg U nivers 40 mg -22 by mouth ity of capsule 19:27: daily. [address] Branch fluticasone 2020-0 Yes Inhale. Uni vers /umeclidin/ 02-13 ity of vilanter 19:27: [place] ([place] [address] Medical ELLIPTA Branch INHALE) omeprazole 2020-0 Yes 40mg Take 40 mg U nivers 40 mg 7-22 by mouth ity of capsule 19:27: daily. [address] Branch fluticasone 2020-0 Yes Inhale. Uni vers /umeclidin/ 02-13 ity of vilanter 19:27: [place] ([place] [address] Medical ELLIPTA Branch INHALE) omeprazole 2020-0 Yes 40mg Take 40 mg U nivers 40 mg 7-22 by mouth ity of capsule 19:27: daily. [address] Branch fluticasone 2020-0 Yes Inhale. Uni vers /umeclidin/ 02-13 ity of vilanter 19:27: [place] ([address] ELLIPTA Branch INHALE) omeprazole 2020-0 Yes 40mg Take 40 mg U nivers 40 mg 7-22 by mouth ity of capsule 19:27: daily. [address] Branch fluticasone 2020-0 Yes Inhale. Uni vers /umeclidin/ 02-13 ity of vilanter 19:27: [place] ([place] [address] Medical ELLIPTA Branch INHALE) omeprazole 2020-0 Yes 40mg Take 40 mg U nivers 40 mg 7-22 by mouth ity of capsule 19:27: daily. [address] Branch fluticasone 2020-0 Yes Inhale. Uni vers /umeclidin/ 02-13 ity of vilanter 19:27: [place] ([address] Branch [address]) omeprazole 2020-0 Yes 40mg Take 40 mg U nivers 40 mg 02-13 by mouth ity of capsule 19:27: daily. [address] fluticasone 2020-0 Yes Inhale. Uni vers /umeclidin/ 02-13 ity of vilanter 19:27: [place] ([address] INHALE) doxycycline 2019-0 2020- No [id number] 100mg Take 1 Univers hyclate 100 02-13 07-30 capsule by i ty of mg capsule 00:00: 04:59 mouth 2 [place] 00 :00 (two) Medical times Branch daily for 7 days. doxycycline 2020-0 2020- No [id number] 100mg Take 1 Univers hyclate 100 02-13 07-30 capsule by i ty of mg capsule 00:00: 04:59 mouth 2 [place] 00 :00 (two) Medical times Branch daily for 7 days. doxycycline 2020-0 2020- No [id number] 100mg Take 1 Univers hyclate 100 02-13 07-30 capsule by i ty of mg capsule 00:00: 04:59 mouth 2 [place] 00 :00 (two) Medical times Branch daily for 7 days. doxycycline 2020-0 2020- No [id number] 100mg Take 1 Univers hyclate 100 02-13 07-30 capsule by i ty of mg capsule 00:00: 04:59 mouth 2 [place] 00 :00 (two) Medical times Branch daily for 7 days. doxycycline 2020-0 2020- No [id number] 100mg Take 1 Univers hyclate 100 02-13 [...] Medical 01/03/20 at Branch 1545, STAT ondansetron 2019-0 2020- No 4mg 4 mg, Slow Univers (ZOFRAN 6-04 30-10 IV Push, ity of (PF)) 20:45: 19:33 [...] 4 mg, Slow Un bogdan injection 4 01-0210 IV Push, ity of mg 18:15: 18:11 ONCE, 1 [place] 00 :00 dose, Wed Medical 01/03/20 at Branch 1315, STAT ondansetron 2020-0 2020- No 4mg 4 mg, Slow Univers (ZOFRAN 01-02 IV Push, ity of (PF)) 18:15: 18:06 ONCE, 1 [place] injection 4 00 :00 dose, Wed Med ical mg 01/03/20 at Branch 1315, SHANE ondansetron 2020-0 Yes [id number] 4mg Take 1 [facility] 4 mg 6-10 tablet by ity of disintegrat 00:00: mouth [place] ing tablet 00 every 4 Medica l (four) Branch hours as needed for Nausea and Vomiting (N/V). ondansetron 2020-0 Yes [id number] 4mg Take 1 [facility] 4 mg 6-10 tablet by ity of disintegrat 00:00: mouth [place] ing tablet 00 every 4 Medica l (four) Branch hours as needed for Nausea and Vomiting (N/V). ondansetron 2020-0 Yes [id number] 4mg Take 1 [facility] 4 mg 6-10 tablet by ity of disintegrat 00:00: mouth [place] ing tablet 00 every 4 Medica l (four) Branch hours as needed for Nausea and Vomiting (N/V). ondansetron 2020-0 Yes [id number] 4mg Take 1 [facility] 4 mg 6-10 tablet by ity of disintegrat 00:00: mouth [place] ing tablet 00 every 4 Medica l (four) Branch hours as needed for Nausea and Vomiting (N/V). ondansetron 2020-0 Yes [id number] 4mg Take 1 [facility] 4 mg 6-10 tablet by ity of disintegrat 00:00: mouth [place] ing tablet 00 every 4 Medica l (four) Branch hours as needed for Nausea and Vomiting (N/V). ondansetron 2020-0 Yes [id number] 4mg Take 1 [facility] 4 mg 6-10 tablet by ity of disintegrat 00:00: mouth [place] ing tablet 00 every 4 Medica l (four) Branch hours as needed for Nausea and Vomiting (N/V). ondansetron 2020-0 Yes [id number] 4mg Take 1 [facility] 4 mg 6-10 tablet by ity of disintegrat 00:00: mouth [place] ing tablet 00 every 4 Medica l (four) Branch hours as needed for Nausea and Vomiting (N/V). ondansetron 2020-0 Yes [id number] 4mg Take 1 [facility] 4 mg 6-10 tablet by ity of disintegrat 00:00: mouth [place] ing tablet 00 every 4 Medica l (four) Branch hours as needed for Nausea and Vomiting (N/V). ondansetron 2020-0 Yes [id number] 4mg Take 1 [facility] 4 mg 6-10 tablet by ity of disintegrat 00:00: mouth [place] ing tablet 00 every 4 Medica l (four) Branch hours as needed for Nausea and Vomiting (N/V). ondansetron 2020-0 Yes [id number] 4mg Take 1 [facility] 4 mg 6-10 tablet by ity of disintegrat 00:00: mouth [place] ing tablet 00 every 4 Medica l (four) Branch hours as needed for Nausea and Vomiting (N/V). ondansetron 2020-0 Yes [id number] 4mg Take 1 [facility] 4 mg 6-10 tablet by ity of disintegrat 00:00: mouth [place] ing tablet 00 every 4 Medica l (four) Branch hours as needed for Nausea and Vomiting (N/V). ondansetron 2020-0 Yes [id number] 4mg Take 1 [facility] 4 mg 6-10 tablet by ity of disintegrat 00:00: mouth [place] ing tablet 00 every 4 Medica l (four) Branch hours as needed for Nausea and Vomiting (N/V). ondansetron 2020-0 Yes [id number] 4mg Take 1 [facility] 4 mg 6-10 tablet by ity of disintegrat 00:00: mouth [place] ing tablet 00 every 4 Medica l (four) Branch hours as needed for Nausea and Vomiting (N/V). ondansetron 2020-0 Yes [id number] 4mg Take 1 [facility] 4 mg 6-10 tablet by ity of disintegrat 00:00: mouth [place] ing tablet 00 every 4 Medica l (four) Branch hours as needed for Nausea and Vomiting (N/V). ondansetron 2020-0 Yes [id number] 4mg Take 1 [facility] 4 mg 6-10 tablet by ity of disintegrat 00:00: mouth [place] ing tablet 00 every 4 Medica l (four) Branch hours as needed for Nausea and Vomiting (N/V). ondansetron 2020-0 Yes [id number] 4mg Take 1 [facility] 4 mg 6-10 tablet by ity of disintegrat 00:00: mouth [place] ing tablet 00 every 4 Medica l (four) Branch hours as needed for Nausea and Vomiting (N/V). ondansetron 2020-0 Yes [id number] 4mg Take 1 [facility] 4 mg 6-10 tablet by ity of disintegrat 00:00: mouth [place] ing tablet 00 every 4 Medica l (four) Branch hours as needed for Nausea and Vomiting (N/V). ondansetron 2020-0 Yes [id number] 4mg Take 1 [facility] 4 mg 6-10 tablet by ity of disintegrat 00:00: mouth [place] ing tablet 00 every 4 Medica l (four) Branch hours as needed for Nausea and Vomiting (N/V). ondansetron 2020-0 Yes [id number] 4mg Take 1 [facility] 4 mg 6-10 tablet by ity of disintegrat 00:00: mouth [place] ing tablet 00 every 4 Medica l (four) Branch hours as needed for Nausea and Vomiting (N/V). ondansetron 2020-0 Yes [id number] 4mg Take 1 [facility] 4 mg 6-10 [...] by mouth ity of capsule 20:24: daily. [place] [address] Medical Branch fluticasone 2020-0 Yes Inhale. Uni vers /umeclidin/ 5-15 ity of vilanter 20:24: [place] ([facility] 14 Medical ELLIPTA Branch INHALE) albuterol [...] by mouth ity of capsule 20:24: daily. [place] [address] Medical Branch fluticasone 2020-0 Yes Inhale. Uni vers /umeclidin/ 5-15 ity of vilanter 20:24: [place] [facility] Medical ELL[facility] Branch INHALE) albuterol 2020-0 [...] by mouth ity of capsule 20:24: daily. [address] fluticasone 2020-0 Yes Inhale. Uni vers /umeclidin/ 5-15 ity of vilanter 20:24: [place] ([address] ELLIPTA Branch INHALE) albuterol 2020-0 Yes [...] by mouth ity of capsule 20:24: daily. [address] fluticasone 2020-0 Yes Inhale. Uni vers /umeclidin/ 5-15 ity of vilanter 20:24: [place] ([facility] 14 Medical ELLIPTA Branch INHALE) albuterol [...] by mouth ity of capsule 20:24: daily. [address] fluticasone 2020-0 Yes Inhale. Uni vers /umeclidin/ 5-15 ity of vilanter 20:24: [place] ([place] [address] Medical ELLIPTA Branch INHALE) albuterol 2020-0 Yes [...] by mouth ity of capsule 20:24: daily. [address] fluticasone 2020-0 Yes Inhale. Uni vers /umeclidin/ 5-15 ity of vilanter 20:24: [place] ([address] ELLIPTA Branch INHALE) albuterol 2020-0 Yes [...] by mouth ity of capsule 20:24: daily. [address] Branch fluticasone 2020-0 Yes Inhale. Uni vers /umeclidin/ 5-15 ity of vilanter 20:24: [place] ([facility] 14 Medical ELLIPTA Branch INHALE) albuterol [...] by mouth ity of capsule 20:24: daily. [address] fluticasone 2020-0 Yes Inhale. Uni vers /umeclidin/ 5-15 ity of vilanter 20:24: [place] ([address] ELLIPTA Branch INHALE) albuterol 2020-0 Yes [...] by mouth ity of capsule 20:24: daily. [address] fluticasone 2020-0 Yes Inhale. Uni vers /umeclidin/ 5-15 ity of vilanter 20:24: [place] ([facility] 14 Medical ELLIPTA Branch INHALE) albuterol [...] by mouth ity of capsule 20:24: daily. [place] 14 Medical Branch fluticasone 2020-0 Yes Inhale. Uni vers /umeclidin/ 5-15 ity of vilanter 20:24: [place] ([facility] 14 Medical ELLIPTA Branch INHALE) albuterol [...] 0745, 50 piggyback mL HYDROcodone 2020-0 Yes [id number] 7.5mg Take 15 mL [facility] -acetaminop 5-15 by mouth ity of hen 7.5-325 00:00: every 4 [place] as mg/15 mL 00 (four) Medical solution hours as Branch needed for Pain (scale 4-6) or Pain (scale 7-10). proMETHazin 2020-0 Yes [id number] 12.5mg Take 1 [facility] e 12.5 mg 5-15 tablet by ity o f tablet 00:00: mouth [place] 00 every 6 Medical (six) Branch hours as needed for Nausea and Vomiting (N/V) or N/V alternatin g with Ondansetro n. simethicone 2020-0 Yes [id number] 80mg Take 1 [facility] 80 mg 5-15 tablet by ity of chewable 00:00: mouth [place] tablet 00 after Medical meals and Branch at bedtime. HYDROcodone 2020-0 Yes [id number] 7.5mg Take 15 mL [facility] -acetaminop 5-15 by mouth ity of hen 7.5-325 00:00: every 4 [place] mg/15 mL 00 (four) Medical solution hours as Branch needed for Pain (scale 4-6) or Pain (scale 7-10). proMETHazin 2020-0 Yes [id number] 12.5mg Take 1 [facility] e 12.5 mg 5-15 tablet by ity o f tablet 00:00: mouth [place] 00 every 6 Medical (six) Branch hours as needed for Nausea and Vomiting (N/V) or N/V alternatin g with Ondansetro n. simethicone 2020-0 Yes [id number] 80mg Take 1 [facility] 80 mg 5-15 tablet by ity of chewable 00:00: mouth [place] tablet 00 after Medical meals and Branch at bedtime. HYDROcodone 2020-0 Yes [id number] 7.5mg Take 15 mL [facility] -acetaminop 5-15 by mouth ity of hen 7.5-325 00:00: every 4 [place] as mg/15 mL 00 (four) Medical solution hours as Branch needed for Pain (scale 4-6) or Pain (scale 7-10). proMETHazin 2020-0 Yes [id number] 12.5mg Take 1 [facility] e 12.5 mg 5-15 tablet by ity o f tablet 00:00: mouth [place] 00 every 6 Medical (six) Branch hours as needed for Nausea and Vomiting (N/V) or N/V alternatin g with Ondansetro n. simethicone 2020-0 Yes [id number] 80mg Take 1 [facility] 80 mg 5-15 tablet by ity of chewable 00:00: mouth [place] tablet 00 after Medical meals and Branch at bedtime. HYDROcodone 2020-0 Yes [id number] 7.5mg Take 15 mL [facility] -acetaminop 5-15 by mouth ity of hen 7.5-325 00:00: every 4 [place] as mg/15 mL 00 (four) Medical solution hours as Branch needed for Pain (scale 4-6) or Pain (scale 7-10). proMETHazin 2020-0 Yes [id number] 12.5mg Take 1 [facility] e 12.5 mg 5-15 tablet by ity o f tablet 00:00: mouth [place] 00 every 6 Medical (six) Branch hours as needed for Nausea and Vomiting (N/V) or N/V alternatin g with Ondansetro n. simethicone 2020-0 Yes [id number] 80mg Take 1 [facility] 80 mg 5-15 tablet by ity of chewable 00:00: mouth [place] tablet 00 after Medical meals and Branch at bedtime. HYDROcodone 2020-0 Yes [id number] 7.5mg Take 15 mL [facility] -acetaminop 5-15 by mouth ity of hen 7.5-325 00:00: every 4 [place] mg/15 mL 00 (four) Medical solution hours as Branch needed for Pain (scale 4-6) or Pain (scale 7-10). proMETHazin 2020-0 Yes [id number] 12.5mg Take 1 [facility] e 12.5 mg 5-15 tablet by ity o f tablet 00:00: mouth [place] 00 every 6 Medical (six) Branch hours as needed for Nausea and Vomiting (N/V) or N/V alternatin g with Ondansetro n. simethicone 2020-0 Yes [id number] 80mg Take 1 [facility] 80 mg 5-15 tablet by ity of chewable 00:00: mouth [place] tablet 00 after Medical meals and Branch at bedtime. HYDROcodone 2020-0 Yes [id number] 7.5mg Take 15 mL [facility] -acetaminop 5-15 by mouth ity of hen 7.5-325 00:00: every 4 [place] mg/15 mL 00 (four) Medical solution hours as Branch needed for Pain (scale 4-6) or Pain (scale 7-10). proMETHazin 2020-0 Yes [id number] 12.5mg Take 1 [facility] e 12.5 mg 5-15 tablet by ity o f tablet 00:00: mouth [place] 00 every 6 Medical (six) Branch hours as needed for Nausea and Vomiting (N/V) or N/V alternatin g with Ondansetro n. simethicone 2020-0 Yes [id number] 80mg Take 1 [facility] 80 mg 5-15 tablet by ity of chewable 00:00: mouth [place] tablet 00 after Medical meals and Branch at bedtime. HYDROcodone 2020-0 Yes [id number] 7.5mg Take 15 mL [facility] -acetaminop 5-15 by mouth ity of hen 7.5-325 00:00: every 4 [place] mg/15 mL 00 (four) Medical solution hours as Branch needed for Pain (scale 4-6) or Pain (scale 7-10). proMETHazin 2020-0 Yes [id number] 12.5mg Take 1 [facility] e 12.5 mg 5-15 tablet by ity o f tablet 00:00: mouth [place] 00 every 6 Medical (six) Branch hours as needed for Nausea and Vomiting (N/V) or N/V alternatin g with Ondansetro n. simethicone 2020-0 Yes [id number] 80mg Take 1 [facility] 80 mg 5-15 tablet by ity of chewable 00:00: mouth [place] tablet 00 after Medical meals and Branch at bedtime. HYDROcodone 2020-0 Yes [id number] 7.5mg Take 15 mL [facility] -acetaminop 5-15 by mouth ity of hen 7.5-325 00:00: every 4 [place] mg/15 mL 00 (four) Medical solution hours as Branch needed for Pain (scale 4-6) or Pain (scale 7-10). proMETHazin 2020-0 Yes [id number] 12.5mg Take 1 [facility] e 12.5 mg 5-15 tablet by ity o f tablet 00:00: mouth [place] 00 every 6 Medical (six) Branch hours as needed for Nausea and Vomiting (N/V) or N/V alternatin g with Ondansetro n. simethicone 2020-0 Yes [id number] 80mg Take 1 [facility] 80 mg 5-15 tablet by ity of chewable 00:00: mouth [place] tablet 00 after Medical meals and Branch at bedtime. HYDROcodone 2020-0 Yes [id number] 7.5mg Take 15 mL [facility] -acetaminop 5-15 by mouth ity of hen 7.5-325 00:00: every 4 [place] mg/15 mL 00 (four) Medical solution hours as Branch needed for Pain (scale 4-6) or Pain (scale 7-10). proMETHazin 2020-0 Yes [id number] 12.5mg Take 1 [facility] e 12.5 mg 5-15 tablet by ity o f tablet 00:00: mouth [place] 00 every 6 Medical (six) Branch hours as needed for Nausea and Vomiting (N/V) or N/V alternatin g with Ondansetro n. simethicone 2020-0 Yes [id number] 80mg Take 1 [facility] 80 mg 5-15 tablet by ity of chewable 00:00: mouth [place] tablet 00 after Medical meals and Branch at bedtime. HYDROcodone 2020-0 Yes [id number] 7.5mg Take 15 mL [facility] -acetaminop 5-15 by mouth ity of hen 7.5-325 00:00: every 4 [place] mg/15 mL 00 (four) Medical solution hours as Branch needed for Pain (scale 4-6) or Pain (scale 7-10). proMETHazin 2020-0 Yes [id number] 12.5mg Take 1 [facility] e 12.5 mg 5-15 tablet by ity o f tablet 00:00: mouth [place] 00 every 6 Medical (six) Branch hours as needed for Nausea and Vomiting (N/V) or N/V alternatin g with Ondansetro n. simethicone 2020-0 Yes [id number] 80mg Take 1 [facility] 80 mg 5-15 tablet by ity of chewable 00:00: mouth [place] tablet 00 after Medical meals and Branch at bedtime. HYDROcodone 2020-0 Yes [id number] 7.5mg Take 15 mL [facility] -acetaminop 5-15 by mouth ity of hen 7.5-325 00:00: every 4 [place] mg/15 mL 00 (four) Medical solution hours as Branch needed for Pain (scale 4-6) or Pain (scale 7-10). proMETHazin 2020-0 Yes [id number] 12.5mg Take 1 [facility] e 12.5 mg 5-15 tablet by ity o f tablet 00:00: mouth [place] 00 every 6 Medical (six) Branch hours as needed for Nausea and Vomiting (N/V) or N/V alternatin g with Ondansetro n. simethicone 2020-0 Yes [id number] 80mg Take 1 [facility] 80 mg 5-15 tablet by ity of chewable 00:00: mouth [place] tablet 00 after Medical meals and Branch at bedtime. HYDROcodone 2020-0 Yes [id number] 7.5mg Take 15 mL [facility] -acetaminop 5-15 by mouth ity of hen 7.5-325 00:00: every 4 [place] mg/15 mL 00 (four) Medical solution hours as Branch needed for Pain (scale 4-6) or Pain (scale 7-10). proMETHazin 2020-0 Yes [id number] 12.5mg Take 1 [facility] e 12.5 mg 5-15 tablet by ity o f tablet 00:00: mouth [place] 00 every 6 Medical (six) Branch hours as needed for Nausea and Vomiting (N/V) or N/V alternatin g with Ondansetro n. simethicone 2020-0 Yes [id number] 80mg Take 1 [facility] 80 mg 5-15 tablet by ity of chewable 00:00: mouth [place] tablet 00 after Medical meals and Branch at bedtime. HYDROcodone 2020-0 Yes [id number] 7.5mg Take 15 mL [facility] -acetaminop 5-15 by mouth ity of hen 7.5-325 00:00: every 4 [place] mg/15 mL 00 (four) Medical solution hours as Branch needed for Pain (scale 4-6) or Pain (scale 7-10). proMETHazin 2020-0 Yes [id number] 12.5mg Take 1 [facility] e 12.5 mg 5-15 tablet by ity o f tablet 00:00: mouth [place] 00 every 6 Medical (six) Branch hours as needed for Nausea and Vomiting (N/V) or N/V alternatin g with Ondansetro n. simethicone 2020-0 Yes [id number] 80mg Take 1 [facility] 80 mg 5-15 tablet by ity of chewable 00:00: mouth [place] tablet 00 after Medical meals and Branch at bedtime. HYDROcodone 2020-0 Yes [id number] 7.5mg Take 15 mL [facility] -acetaminop 5-15 by mouth ity of hen 7.5-325 00:00: every 4 [place] mg/15 mL 00 (four) Medical solution hours as Branch needed for Pain (scale 4-6) or Pain (scale 7-10). proMETHazin 2020-0 Yes [id number] 12.5mg Take 1 [facility] e 12.5 mg 5-15 tablet by ity o f tablet 00:00: mouth [place] 00 every 6 Medical (six) Branch hours as needed for Nausea and Vomiting (N/V) or N/V alternatin g with Ondansetro n. simethicone 2020-0 Yes [id number] 80mg Take 1 [facility] 80 mg 5-15 tablet by ity of chewable 00:00: mouth [place] tablet 00 after Medical meals and Branch at bedtime. HYDROcodone 2020-0 Yes [id number] 7.5mg Take 15 mL [facility] -acetaminop 5-15 by mouth ity of hen 7.5-325 00:00: every 4 [place] mg/15 mL 00 (four) Medical solution hours as Branch needed for Pain (scale 4-6) or Pain (scale 7-10). proMETHazin 2020-0 Yes [id number] 12.5mg Take 1 [facility] e 12.5 mg 5-15 tablet by ity o f tablet 00:00: mouth [place] 00 every 6 Medical (six) Branch hours as needed for Nausea and Vomiting (N/V) or N/V alternatin g with Ondansetro n. simethicone 2020-0 Yes [id number] 80mg Take 1 [facility] 80 mg 5-15 tablet by ity of chewable 00:00: mouth [place] tablet 00 after Medical meals and Branch at bedtime. HYDROcodone 2020-0 Yes [id number] 7.5mg Take 15 mL [facility] -acetaminop 5-15 by mouth ity of hen 7.5-325 00:00: every 4 [place] mg/15 mL 00 (four) Medical solution hours as Branch needed for Pain (scale 4-6) or Pain (scale 7-10). proMETHazin 2020-0 Yes [id number] 12.5mg Take 1 [facility] e 12.5 mg 5-15 tablet by ity o f tablet 00:00: mouth [place] 00 every 6 Medical (six) Branch hours as needed for Nausea and Vomiting (N/V) or N/V alternatin g with Ondansetro n. simethicone 2020-0 Yes [id number] 80mg Take 1 [facility] 80 mg 5-15 tablet by ity of chewable 00:00: mouth [place] tablet 00 after Medical meals and Branch at bedtime. HYDROcodone 2020-0 Yes [id number] 7.5mg Take 15 mL [facility] -acetaminop 5-15 by mouth ity of hen 7.5-325 00:00: every 4 [place] mg/15 mL 00 (four) Medical solution hours as Branch needed for Pain (scale 4-6) or Pain (scale 7-10). proMETHazin 2020-0 Yes [id number] 12.5mg Take 1 [facility] e 12.5 mg 5-15 tablet by ity o f tablet 00:00: mouth [place] 00 every 6 Medical (six) Branch hours as needed for Nausea and Vomiting (N/V) or N/V alternatin g with Ondansetro n. simethicone 2020-0 Yes [id number] 80mg Take 1 [facility] 80 mg 5-15 tablet by ity of chewable 00:00: mouth [place] tablet 00 after Medical meals and Branch at bedtime. HYDROcodone 2020-0 Yes [id number] 7.5mg Take 15 mL [facility] -acetaminop 5-15 by mouth ity of hen 7.5-325 00:00: every 4 [place] mg/15 mL 00 (four) Medical solution hours as Branch needed for Pain (scale 4-6) or Pain (scale 7-10). proMETHazin 2020-0 Yes [id number] 12.5mg Take 1 [facility] e 12.5 mg 5-15 tablet by ity o f tablet 00:00: mouth [place] 00 every 6 Medical (six) Branch hours as needed for Nausea and Vomiting (N/V) or N/V alternatin g with Ondansetro n. simethicone 2020-0 Yes [id number] 80mg Take 1 [facility] 80 mg 5-15 tablet by ity of chewable 00:00: mouth [place] tablet 00 after Medical meals and Branch at bedtime. HYDROcodone 2020-0 Yes [id number] 7.5mg Take 15 mL [facility] -acetaminop 5-15 by mouth ity of hen 7.5-325 00:00: every 4 [place] mg/15 mL 00 (four) Medical solution hours as Branch needed for Pain (scale 4-6) or Pain (scale 7-10). proMETHazin 2020-0 Yes [id number] 12.5mg Take 1 [facility] e 12.5 mg 5-15 tablet by ity o f tablet 00:00: mouth [place] 00 every 6 Medical (six) Branch hours as needed for Nausea and Vomiting (N/V) or N/V alternatin g with Ondansetro n. simethicone 2020-0 Yes [id number] 80mg Take 1 [facility] 80 mg 5-15 tablet by ity of chewable 00:00: mouth [place] tablet 00 after Medical meals and Branch at bedtime. HYDROcodone 2020-0 Yes [id number] 7.5mg Take 15 mL [facility] -acetaminop 5-15 by mouth ity of hen 7.5-325 00:00: every 4 [place] mg/15 mL 00 (four) Medical solution hours as Branch needed for Pain (scale 4-6) or Pain (scale 7-10). proMETHazin 2020-0 Yes [id number] 12.5mg Take 1 [facility] e 12.5 mg 5-15 tablet by ity o f tablet 00:00: mouth [place] 00 every 6 Medical (six) Branch hours as needed for Nausea and Vomiting (N/V) or N/V alternatin g with Ondansetro n. simethicone 2020-0 Yes [id number] 80mg Take 1 [facility] 80 mg 5-15 tablet by ity of chewable 00:00: mouth [place] tablet 00 after Medical meals and Branch at bedtime. HYDROcodone 2020-0 Yes [id number] 7.5mg Take 15 mL [facility] -acetaminop 5-15 by mouth ity of hen 7.5-325 00:00: every 4 [place] mg/15 mL 00 (four) Medical solution hours as Branch needed for Pain (scale 4-6) or Pain (scale 7-10). proMETHazin 2020-0 Yes [id number] 12.5mg Take 1 [facility] e 12.5 mg 5-15 tablet by ity o f tablet 00:00: mouth [place] 00 every 6 Medical (six) Branch hours as needed for Nausea and Vomiting (N/V) or N/V alternatin g with Ondansetro n. simethicone 2020-0 Yes [id number] 80mg Take 1 [facility] 80 mg 5-15 tablet by ity of chewable 00:00: mouth [place] tablet 00 after Medical meals and Branch at bedtime. HYDROcodone 2020-0 Yes [id number] 7.5mg Take 15 mL [facility] -acetaminop 5-15 by mouth ity of hen 7.5-325 00:00: every 4 [place] mg/15 mL 00 (four) Medical solution hours as Branch needed for Pain (scale 4-6) or Pain (scale 7-10). proMETHazin 2020-0 Yes [id number] 12.5mg Take 1 [facility] e 12.5 mg 5-15 tablet by ity o f tablet 00:00: mouth [place] 00 every 6 Medical (six) Branch hours as needed for Nausea and Vomiting (N/V) or N/V alternatin g with Ondansetro n. simethicone 2020-0 Yes [id number] 80mg Take 1 [facility] 80 mg 5-15 tablet by ity of chewable 00:00: mouth [place] tablet 00 after Medical meals and Branch at bedtime. HYDROcodone 2020-0 Yes [id number] 7.5mg Take 15 mL [facility] -acetaminop 5-15 by mouth ity of hen 7.5-325 00:00: every 4 [place] mg/15 mL 00 (four) Medical solution hours as Branch needed for Pain (scale 4-6) or Pain (scale 7-10). proMETHazin 2020-0 Yes [id number] 12.5mg Take 1 [facility] e 12.5 mg 5-15 tablet by ity o f tablet 00:00: mouth [place] 00 every 6 Medical (six) Branch hours as needed for Nausea and Vomiting (N/V) or N/V alternatin g with Ondansetro n. simethicone 2020-0 Yes [id number] 80mg Take 1 [facility] 80 mg 5-15 tablet by ity of chewable 00:00: mouth [place] tablet 00 after Medical meals and Branch at bedtime. HYDROcodone 2020-0 Yes [id number] 7.5mg Take 15 mL [facility] -acetaminop 5-15 by mouth ity of hen 7.5-325 00:00: every 4 [place] mg/15 mL 00 (four) Medical solution hours as Branch needed for Pain (scale 4-6) or Pain (scale 7-10). proMETHazin 2020-0 Yes [id number] 12.5mg Take 1 [facility] e 12.5 mg 5-15 tablet by ity o f tablet 00:00: mouth [place] 00 every 6 Medical (six) Branch hours as needed for Nausea and Vomiting (N/V) or N/V alternatin g with Ondansetro n. simethicone 2020-0 Yes [id number] 80mg Take 1 [facility] 80 mg 5-15 tablet by ity of chewable 00:00: mouth [place] tablet 00 after Medical meals and Branch at bedtime. HYDROcodone 2020-0 Yes [id number] 7.5mg Take 15 mL [facility] -acetaminop 5-15 by mouth ity of hen 7.5-325 00:00: every 4 [place] mg/15 mL 00 (four) Medical solution hours as Branch needed for Pain (scale 4-6) or Pain (scale 7-10). proMETHazin 2020-0 Yes [id number] 12.5mg Take 1 [facility] e 12.5 mg 5-15 tablet by ity o f tablet 00:00: mouth [place] 00 every 6 Medical (six) Branch hours as needed for Nausea and Vomiting (N/V) or N/V alternatin g with Ondansetro n. simethicone 2020-0 Yes [id number] 80mg Take 1 [facility] 80 mg 5-15 tablet by ity of chewable 00:00: mouth [place] tablet 00 after Medical meals and Branch at bedtime. HYDROcodone 2020-0 Yes [id number] 7.5mg Take 15 mL [facility] -acetaminop 5-15 by mouth ity of hen 7.5-325 00:00: every 4 [place] mg/15 mL 00 (four) Medical solution hours as Branch needed for Pain (scale 4-6) or Pain (scale 7-10). proMETHazin 2020-0 Yes [id number] 12.5mg Take 1 [facility] e 12.5 mg 5-15 tablet by ity o f tablet 00:00: mouth [place] 00 every 6 Medical (six) Branch hours as needed for Nausea and Vomiting (N/V) or N/V alternatin g with Ondansetro n. simethicone 2020-0 Yes [id number] 80mg Take 1 [facility] 80 mg 5-15 tablet by ity of chewable 00:00: mouth [place] tablet 00 after Medical meals and Branch at bedtime. ipratropium 2020-0 Yes .5mg 0.5 mg, Uni vers (ATROVENT) 5-14 Inhalation ity of 0.02 % 15:10: , Q4HPRN, [place] nebulizer 00 Starting Medica l solution [facility] Branch 0.5 mg 12/07/19 at 1010, Until Discontinu ed, Routine, Wheezing, Shortness of Breath proMETHazin 2020-0 Yes 12.5mg 12.5 mg, Univers e 5-14 Oral, ity of (PHENERGAN) 12:44: Q4HPRN, [place] as tablet 12.5 01 Starting Medi fel[place] mg [facility] Branch 12/07/19 at 0744, Until Discontinu ed, Routine, Nausea and Vomiting (N/V), N/V alternatin g with Ondansetro n albuterol 2019-0 Yes 2.5mg 2.5 mg, Univ ers (PROVENTIL) 5- Inhalation it y of 2.5 mg /3 22:45: , Q4HPRN, [place] mL (0.083 00 Starting Medica l %) [facility] nebulizer 12/06/19 at solution 1745, 2.5 mg Until Discontinu ed, Routine, Shortness of Breath, Wheezing ALPRAZolam 2019-0 Yes .5mg 0.5 mg, Univ ers (XANAX) 5- Oral, ity of tablet 0.5 19:33: BIDPRN, [place] mg 05 Starting Medical [facility] Branch 12/06/19 at 1433, Until Discontinu ed, Routine, anxiety acetaminoph 2019-0 Yes 650mg 650 mg, Un bogdan en 12-05 Oral, ity of (TYLENOL) 19:25: Q4HPRN, [place] 160 mg/5 mL 38 Starting Medi feliciano liquid 650 Wed Branch mg 12/06/19 at 1425, Until Discontinu ed, Routine, Pain (scale 1-3) venlafaxine 2019-0 Yes 75mg 75 mg, [facility] ers (EFFEXOR) 12-05 Oral, TID, ity of tablet 75 01:00: First dose [place] mg 00 on Wed Medical 12/05/19 at Branch 1999, Until Discontinu ed famotidine 2020- No 20mg 20 mg, [facility] ers (PEPCID 12-05 Slow IV ity of (PF)) 01:00: 13:22 Push, [place] injection 00 :00 Q12H, 6 Medical 20 mg doses, Branch First dose on Wed12/05/19 at 1999, Last dose on Wed12/08/19 at 0800, Routine
Indicatio n for use: None of the above simethicone 2019-0 Yes 80mg 80 mg, [facility] ers (GAS RELIEF 12-04 Oral, ity of (SIMETHICON 23:00: [place]HS, [place] E[place] 00 First dose Medical chewable on Wed tablet 80 12/05/19 at mg 1800, Until Discontinu ed, Routine dexamethaso 0 2020- No 10mg 10 mg, IV Univers ne 12-04 Piggyback, ity of (DECADRON) 22:30: 08:10 ONCE, 1 [place] as 10 mg in 00 :00 dose, [facility] Medica l NaCl 0.9% 12/05/19 at Bran ch (NS) 1730, 50 piggyback mL albuterol 2019-0 2020- No 2.5mg 2.5 mg, Uni vers (PROVENTIL) 12-04 Inhalation i ty of 2.5 mg /3 21:46: 22:34 , Q6HPRN, [place] mL (0.083 30 :18 Starting Medica l %) Wed [place] nebulizer 12/05/19 at solution 1646, 2.5 mg Until Wed12/06/19 at 1734, Routine, Shortness of Breath, Wheezing morpHINE 2020-0 Yes 4mg 4 mg, Slow Uni vers injection 4 5-12 IV Push, ity of mg 21:29: Q4HPRN, [place] 52 Starting Medical Tue Branch 12/05/19 at [...] (scale 4-6) phenol 2020-0 Yes 1{spray 1 [place], Univ ers (SORE 5-12 } Oral, PRN, ity of THROAT 21:07: Starting [place] (PHENOL)) 21 Wed Medical 1.4 % spray 12/05/19 at Br anch bottle 1 1607, [place] Until Discontinu ed, Routine, Sore throat barium 2020-0 2020- No 700mg 700 mg, Univer s sulfate 12-04 05-12 Oral, ity of (E-Z DISK) 20:00: 19:17 ONCE, 1 [place] as tablet 700 00 :00 dose, Tue Medi feliciano mg 12/05/19 at Branch 1500, Routine iohexol 2020-0 2020- No 30mL 30 mL, Univers (OMNIPAQUE 5-12 05-12 Oral, ity of 300-50 mL)) 19:30: 19:20 ONCE, 1 [place] injection 00 :00 dose, Tue Medic al 30 mL 12/05/19 at Branch 1430, Routine heparin 2020-0 Yes 5000U 5,000 Univers (porcine) 5-12 Units, ity of injection 19:00: Subcutaneo [place] 5,000 Units 00 us, Q8H, Medi feliciano First dose Branch on Wed12/05/19 at 1400, Until Discontinu ed, Routine hydralAZINE 2019-0 Yes 10mg 10 mg, Univ ers (APRESOLINE 12 Intravenou it y of ) injection 17:06: s, Q4HPRN, [place] 10 mg 16 Starting Medical e Branch 12/05/19 at 1206, Until Discontinu ed, Routine, SBP >160 acetaminoph 2020- No 1000mg 1,000 mg, Univers en ADULT 12-04 IV ity of (OFIRMEV) 17:00: 16:59 Infusion, [place] injection 00 :00 Administer Medi feliciano 1,000 mg over 15 Branch Minutes, Q6H, 4 doses, First dose on Wed12/05/19 at 1200, Last dose on Wed12/06/19 at 0600, Routine
Indicatio n: Non-periop erative Patient
Approved by: Per Policy (NPO Status) hydralAZINE 2020- No 5mg 5 mg, [facility] ers (APRESOLINE 12-04 Intravenou i ty of ) injection 15:15: 16:25 s, PRN, [place] 5 mg 28 :41 Starting Medical [facility] Branch 12/05/19 at 1015, Until Wed12/05/19 at 1125, Routine, Hypertensi on, prn once for systolic bp >185, PACU D5W 0.45% 2019-0 Yes IV Univers NaCl 12 Infusion, ity of (1/2NS) 1 L 15:15: at 100 [place] + KCL 20 00 mL/hr, Medical mEq CONTINUOUS Branch , Starting Wed12/05/19 at 1015, Until Discontinu ed, Routine HYDROmorpho 2020- No .2mg 0.2 mg, Un bogdan ne 12-04 Slow IV ity of (DILAUDID) 15:10: 16:25 Push, [place] injection 21 :41 Q5MIN PRN, Medi feliciano 0.2 mg 10 doses, Branch Starting Wed12/05/19 at 1010, Until Wed12/05/19 at 1125, Routine, Pain (scale 7-10), PACU
Us e approved by (Faculty): PACU USE -ANESTHESI A SERVICE-HY DROMORPHON E INJECTIONS FENTanyl PF 2020-0 2020- No 25ug 25 mcg, Un bogdan (SUBLIMAZE 12-04 Slow IV ity o f (PF)) 15:10: 16:25 Push, [place] injection 21 :41 Q5MIN PRN, Medi feliciano 25 mcg 4 doses, Branch Starting e 12/05/19 at 1010, Until 12/05/19 at 1125, Routine, Pain (scale 4-6), PACU morpHINE 2019-0 2020- No 4mg 4 mg, Slow Un bogdan injection 4 12-0412 IV Push, ity of mg 14:59: 21:30 Q4HPRN, [place] 25 :16 Starting Medical [facility] Branch 12/05/19 at 0959, Until e 12/05/19 at 1630, Routine, Pain (scale 7-10) ondansetron 2020-0 Yes 4mg 4 mg, Slow Univers (ZOFRAN 12-04 IV Push, ity of (PF)) 14:55: Q6HPRN, [place] injection 4 50 Starting Medi feliciano mg e Branch 12/05/19 at 0955, Until Discontinu ed, [...] by mouth ity of capsule 20:55: daily. [address] omeprazole 2020-0 Yes 40mg Take 40 mg U nivers 40 mg 4-28 by mouth ity of capsule 20:55: daily. [address] omeprazole 2020-0 Yes 40mg Take 40 mg U nivers 40 mg 4-28 by mouth ity of capsule 20:55: daily. [address] omeprazole 2020-0 Yes 40mg Take 40 mg U nivers 40 mg 4-28 by mouth ity of capsule 20:55: daily. [address] cefdinir 2020-0 2020- No 300mg Take 300 Uni vers 300 mg 4-28 04-28 mg by ity of capsule 20:52: 00:00 mouth [place] 58 :00 every 24 Medical (twenty-fo Branch ur) hours. carvedilol 2020-0 Yes 3.125mg Take 3.125 Univers 3.125 mg 3-04 mg by ity of tablet 18:12: mouth [address] [place] [address] (two) Medical times Branch daily with meals. dextroamphe 2020-0 Yes 30mg Take 30 mg Univers tamine/amph 3-04 by mouth 2 it y of etamine 18:12: (two) [place] (ADDERALL 47 times Medical ORAL) daily. Branch Being prescribed by Psychiatry but the patient has been counseled not to take it due the cardiovasc ular risks cefdinir 2020-0 Yes 300mg Take 300 Univ ers 300 mg 3-04 mg by ity of capsule 18:12: mouth [place] [address] every 24 Medical (twenty-fo Branch ur) hours. carvedilol 2020-0 Yes 3.125mg Take 3.125 Univers 3.125 mg 3-04 mg by ity of tablet 18:12: mouth [address] [place] [address] (two) Medical times Branch daily with meals. dextroamphe 2020-0 Yes 30mg Take 30 mg Univers tamine/amph 3-04 by mouth 2 it y of etamine 18:12: (two) [place] (ADDERALL 47 times Medical ORAL) daily. Branch Being prescribed by Psychiatry but the patient has been counseled not to take it due the cardiovasc ular risks cefdinir 2020-0 Yes 300mg Take 300 Univ ers 300 mg 3-04 mg by ity of capsule 18:12: mouth [place] [address] every 24 Medical (twenty-fo Branch ur) hours. carvedilol 2020-0 Yes 3.125mg Take 3.125 Univers 3.125 mg 3-04 mg by ity of tablet 18:12: mouth [address] [place] [address] (two) Medical times [place] daily with meals. dextroamphe 2020-0 Yes 30mg [...] by ity of tablet 18:12: mouth 2 [place] 47 (two) Medical times Branch daily with [...] mg by ity of capsule 18:12: mouth [place] 47 every 24 Medical (twenty-fo Branch ur) [...] vers /umeclidin/ 2-26 ity of vilanter 20:33: [place] ([place] [address] Medical ELLIPTA Branch INHALE) cefdinir 2020-0 Yes 300mg Take 300 Univ ers 300 mg 2-26 mg by ity of capsule 20:33: mouth [place] 11 every 24 Medical (twenty- Branch ur) hours. albuterol 2020-0 Yes 2{puff} Inhale 2 U nivers (VENTOLIN) 2-26 Puffs ity of 90 20:33: every 6 [place] mcg/actuati 11 (six) Medical on inhaler hours as Branc h needed for Wheezing or Shortness of Breath. fluticasone 2020-0 Yes Inhale. Uni vers /umeclidin/ 2-26 ity of vilanter 20:33: [place] ([place] [address] Medical ELLIPTA Branch INHALE) cefdinir 2020-0 Yes 300mg Take 300 Univ ers 300 mg 2-26 mg by ity of capsule 20:33: mouth [place] 11 every 24 Medical ([facility] Branch ur) hours. albuterol 2020-0 Yes 2{puff} Inhale 2 U nivers (VENTOLIN) 2-26 Puffs ity of 90 20:33: every 6 [place] mcg/actuati 11 (six) Medical on inhaler hours as Branc h needed for Wheezing or Shortness of Breath. fluticasone 2020-0 Yes Inhale. Uni vers /umeclidin/ 2-26 ity of vilanter 20:33: [place] [facility] [address] [facility] cefdinir 2020-0 Yes 300mg Take 300 Univ ers 300 mg 2-26 mg by ity of capsule 20:33: mouth [place] 11 every 24 Medical ([facility] Branch ur) hours. albuterol 2020-0 Yes 2{puff} Inhale 2 U nivers (VENTOLIN) 2-26 Puffs ity of 90 20:33: every 6 [place] mcg/actuati 11 (six) Medical on inhaler hours as Branc h needed for Wheezing or Shortness of Breath. fluticasone 2020-0 Yes Inhale. Uni vers /umeclidin/ 2-26 ity of vilanter 20:33: [place] ([place] [address] Medical ELLIPTA Branch INHALE) albuterol 2020-0 Yes 2{puff} Inhale 2 U nivers (VENTOLIN) 2-26 Puffs ity of 90 20:33: every 6 [place] mcg/actuati 11 (six) Medical on inhaler hours as Branc h needed for Wheezing or Shortness of Breath. fluticasone 2020-0 Yes Inhale. Uni vers /umeclidin/ 2-26 ity of vilanter 20:33: [place] ([place] [address] Medical ELLIPTA Branch INHALE) albuterol 2020-0 Yes 2{puff} Inhale 2 U nivers (VENTOLIN) 2-26 Puffs ity of 90 20:33: every 6 [place] mcg/actuati 11 (six) Medical on inhaler hours as Branc h needed for Wheezing or Shortness of Breath. fluticasone 2020-0 Yes Inhale. Uni vers /umeclidin/ 2-26 ity of vilanter 20:33: [place] ([place] [address] Medical ELLIPTA Branch INHALE) albuterol 2020-0 Yes 2{puff} Inhale 2 U nivers (VENTOLIN) 2-26 Puffs ity of 90 20:33: every 6 [place] mcg/actuati 11 (six) Medical on inhaler hours as Branc h needed for Wheezing or Shortness of Breath. fluticasone 2020-0 Yes Inhale. Uni vers /umeclidin/ 2-26 ity of vilanter 20:33: [place] ([place] [address] Medical ELLIPTA Branch INHALE) albuterol 2020-0 Yes 2{puff} Inhale 2 U nivers (VENTOLIN) 2-26 Puffs ity of 90 20:33: every 6 [place] mcg/actuati 11 (six) Medical on inhaler hours as Branc h needed for Wheezing or Shortness of Breath. fluticasone 2020-0 Yes Inhale. Uni vers /umeclidin/ 2-26 ity of vilanter 20:33: [place] ([place] [address] Medical ELLIPTA Branch INHALE) albuterol 2020-0 Yes 2{puff} Inhale 2 U nivers (VENTOLIN) 2-26 Puffs ity of 90 20:33: every 6 [place] mcg/actuati 11 (six) Medical on inhaler hours as Branc h needed for Wheezing or Shortness of Breath. fluticasone 2020-0 Yes Inhale. Uni vers /umeclidin/ 2-26 ity of vilanter 20:33: [place] ([facility] 11 Medical ELLIPTA Branch INHALE) albuterol 2020-0 Yes 2{puff} Inhale 2 U nivers (VENTOLIN) 2-26 Puffs ity of 90 20:33: every 6 [place] mcg/actuati 11 (six) Medical on inhaler hours as Branc h needed for Wheezing or Shortness of Breath. fluticasone 2020-0 Yes Inhale. Uni vers /umeclidin/ 2-26 ity of vilanter 20:33: [place] [facility] Branch INHALE) albuterol 2020-0 Yes 2{puff} Inhale 2 U nivers (VENTOLIN) 2-26 Puffs ity of 90 20:33: every 6 [place] mcg/actuati 11 (six) Medical on inhaler hours as Branc h needed for Wheezing or Shortness of Breath. fluticasone 2020-0 Yes Inhale. Uni vers /umeclidin/ 2-26 ity of vilanter 20:33: [place] ([facility] 11 Medical ELLIPTA Branch INHALE) albuterol 2020-0 Yes 2{puff} Inhale 2 U nivers (VENTOLIN) 2-26 Puffs ity of 90 20:33: every 6 [place] mcg/actuati 11 (six) Medical on inhaler hours as Branc h needed for Wheezing or Shortness of Breath. fluticasone 2020-0 Yes Inhale. Uni vers /umeclidin/ 2-26 ity of vilanter 20:33: [place] ([facility] 11 Medical ELLIPTA Branch INHALE) fluticasone 2020-0 Yes Inhale. Uni vers /umeclidin/ 07-27 ity of vilanter 19:44: [place] [facility] Branch [facility] fluticasone 2020-0 Yes Inhale. Uni vers /umeclidin/ 07-27 ity of vilanter 19:44: [place] [facility] Branch INHALE) fluticasone 2020-0 Yes Inhale. Uni vers /umeclidin/ 07-27 ity of vilanter 19:44: [place] ([facility] 39 Medical ELLIPTA Branch INHALE) fluticasone 2020-0 Yes Inhale. Uni vers /umeclidin/ 07-27 ity of vilanter 19:44: [place] [facility] Branch INHALE) fluticasone 2020-0 Yes Inhale. Uni vers /umeclidin/ 07-27 ity of vilanter 19:44: [place] ([facility] 39 Medical ELLIPTA Branch INHALE) predniSONE 2019- Yes [id number] 10mg Take 1 Univers 10 mg 0-11 tablet by ity of tablet 00:00: mouth [place] 00 daily. Medical Take with Branch food. predniSONE 2018-07 Yes [id number] 10mg Take 1 Univers 10 mg 0-11 tablet by ity of tablet 00:00: mouth [place] 00 daily. Medical Take with Branch food. predniSONE 2018-07 Yes [id number] 10mg Take 1 Univers 10 mg 0-11 tablet by ity of tablet 00:00: mouth [place] 00 daily. Medical Take with Branch food. predniSONE 2018-07 Yes [id number] 10mg Take 1 Univers 10 mg 0-11 tablet by ity of tablet 00:00: mouth [place] 00 daily. Medical Take with Branch food. predniSONE 2018-07 Yes [id number] 10mg Take 1 Univers 10 mg 0-11 tablet by ity of tablet 00:00: mouth [place] 00 daily. Medical Take with Branch food. predniSONE 2018-07 Yes [id number] 10mg Take 1 Univers 10 mg 0-11 tablet by ity of tablet 00:00: mouth [place] 00 daily. Medical Take with Branch food. predniSONE 2018-07 Yes [id number] 10mg Take 1 Univers 10 mg 0-11 tablet by ity of tablet 00:00: mouth [place] 00 daily. Medical Take with Branch food. predniSONE 2018-07 Yes [id number] 10mg Take 1 Univers 10 mg 0-11 tablet by ity of tablet 00:00: mouth [place] 00 daily. Medical Take with Branch food. predniSONE 2018- Yes [id number] 10mg Take 1 Univers 10 mg 0-11 tablet by ity of tablet 00:00: mouth [place] 00 daily. Medical Take with Branch food. predniSONE 2018- Yes [id number] 10mg Take 1 Univers 10 mg 0-11 tablet by ity of tablet 00:00: mouth [place] 00 daily. Medical Take with Branch food. predniSONE 2018-07 Yes [id number] 10mg Take 1 Univers 10 mg 0-11 tablet by ity of tablet 00:00: mouth [place] 00 daily. Medical Take with Branch food. predniSONE 2018- Yes [id number] 10mg Take 1 Univers 10 mg 0-11 tablet by ity of tablet 00:00: mouth [place] 00 daily. Medical Take with Branch food. predniSONE 2019- Yes [id number] 10mg Take 1 Univers 10 mg 0-11 tablet by ity of tablet 00:00: mouth [place] 00 daily. Medical Take with Branch food. predniSONE 2019- Yes [id number] 10mg Take 1 Univers 10 mg 0-11 tablet by ity of tablet 00:00: mouth [place] 00 daily. Medical Take with Branch food. predniSONE 2018- Yes [id number] 10mg Take 1 Univers 10 mg 0-11 tablet by ity of tablet 00:00: mouth [place] 00 daily. Medical Take with Branch food. predniSONE 2018- Yes [id number] 10mg Take 1 Univers 10 mg 0-11 tablet by ity of tablet 00:00: mouth [place] 00 daily. Medical Take with Branch food. predniSONE 2018- Yes [id number] 10mg Take 1 Univers 10 mg 0-11 tablet by ity of tablet 00:00: mouth [place] 00 daily. Medical Take with Branch food. predniSONE 2018- Yes [id number] 10mg Take 1 Univers 10 mg 0-11 tablet by ity of tablet 00:00: mouth [place] 00 daily. Medical Take with Branch food. predniSONE 2019- Yes [id number] 10mg Take 1 Univers 10 mg 0-11 tablet by ity of tablet 00:00: mouth [place] 00 daily. Medical Take with Branch food. predniSONE 2018- Yes [id number] 10mg Take 1 Univers 10 mg 0-11 tablet by ity of tablet 00:00: mouth [place] 00 daily. Medical Take with Branch food. predniSONE 2018- Yes [id number] 10mg Take 1 Univers 10 mg 0-11 tablet by ity of tablet 00:00: mouth [place] 00 daily. Medical Take with Branch food. predniSONE 2019- Yes [id number] 10mg Take 1 Univers 10 mg 0-11 tablet by ity of tablet 00:00: mouth [place] 00 daily. Medical Take with Branch food. predniSONE 2019- Yes [id number] 10mg Take 1 Univers 10 mg 0-11 tablet by ity of tablet 00:00: mouth [place] 00 daily. Medical Take with Branch food. predniSONE 2019- Yes [id number] 10mg Take 1 Univers 10 mg 0-11 tablet by ity of tablet 00:00: mouth [place] 00 daily. Medical Take with Branch food. predniSONE 2018- Yes [id number] 10mg Take 1 Univers 10 mg 0-11 tablet by ity of tablet 00:00: mouth [place] 00 daily. Medical Take with Branch food. predniSONE 2018- Yes [id number] 10mg Take 1 Univers 10 mg 0-11 tablet by ity of tablet 00:00: mouth [place] 00 daily. Medical Take with Branch food. predniSONE 2018- Yes [id number] 10mg Take 1 Univers 10 mg 0-11 tablet by ity of tablet 00:00: mouth [place] 00 daily. Medical Take with Branch food. predniSONE 2018- Yes [id number] 10mg Take 1 Univers 10 mg 0-11 tablet by ity of tablet 00:00: mouth [place] 00 daily. Medical Take with Branch food. predniSONE 2018- Yes [id number] 10mg Take 1 Univers 10 mg 0-11 tablet by ity of tablet 00:00: mouth [place] 00 daily. Medical Take with Branch food. predniSONE 2018- Yes [id number] 10mg Take 1 Univers 10 mg 0-11 tablet by ity of tablet 00:00: mouth [place] 00 daily. Medical Take with Branch food. predniSONE 2018- Yes [id number] 10mg Take 1 Univers 10 mg 0-11 tablet by ity of tablet 00:00: mouth [place] 00 daily. Medical Take with Branch food. predniSONE 2018- Yes [id number] 10mg Take 1 Univers 10 mg 0-11 tablet by ity of tablet 00:00: mouth [place] 00 daily. Medical Take with Branch food. predniSONE 2018- Yes [id number] 10mg Take 1 Univers 10 mg 0-11 tablet by ity of tablet 00:00: mouth [place] 00 daily. Medical Take with Branch food. predniSONE 2018- Yes [id number] 10mg Take 1 Univers 10 mg 0-11 tablet by ity of tablet 00:00: mouth [place] 00 daily. Medical Take with Branch food. predniSONE 2018- Yes [id number] 10mg Take 1 Univers 10 mg 0-11 tablet by ity of tablet 00:00: mouth [place] 00 daily. Medical Take with Branch food. predniSONE 2018- Yes [id number] 10mg Take 1 Univers 10 mg 0-11 tablet by ity of tablet 00:00: mouth [place] 00 daily. Medical Take with Branch food. predniSONE 2018- Yes [id number] 10mg Take 1 Univers 10 mg 0-11 tablet by ity of tablet 00:00: mouth [place] 00 daily. Medical Take with Branch food. predniSONE 2018- Yes [id number] 10mg Take 1 Univers 10 mg 0-11 tablet by ity of tablet 00:00: mouth [place] 00 daily. Medical Take with Branch food. predniSONE 2018- Yes [id number] 10mg Take 1 Univers 10 mg 0-11 tablet by ity of tablet 00:00: mouth [place] 00 daily. Medical Take with Branch food. predniSONE 2018- Yes [id number] 10mg Take 1 Univers 10 mg 0-11 tablet by ity of tablet 00:00: mouth [place] 00 daily. Medical Take with Branch food. predniSONE 2018- Yes [id number] 10mg Take 1 Univers 10 mg 0-11 tablet by ity of tablet 00:00: mouth [place] 00 daily. Medical Take with Branch food. predniSONE 2018- Yes [id number] 10mg Take 1 Univers 10 mg 0-11 tablet by ity of tablet 00:00: mouth [place] 00 daily. Medical Take with Branch food. predniSONE 2018- Yes [id number] 10mg Take 1 Univers 10 mg 0-11 tablet by ity of tablet 00:00: mouth [place] 00 daily. Medical Take with Branch food. predniSONE 2018- Yes [id number] 10mg Take 1 Univers 10 mg 0-11 tablet by ity of tablet 00:00: mouth [place] 00 daily. Medical Take with Branch food. predniSONE 2018- Yes [id number] 10mg Take 1 Univers 10 mg 0-11 tablet by ity of tablet 00:00: mouth [place] 00 daily. Medical Take with Branch food. predniSONE 2018- Yes [id number] 10mg Take 1 Univers 10 mg 0-11 tablet by ity of tablet 00:00: mouth [place] 00 daily. Medical Take with Branch food. omeprazole 2019 Yes 40mg Take 40 mg U nivers 40 mg 8-22 by mouth ity of capsule 21:10: daily. [facility] omeprazole 2019-0 Yes 40mg Take 40 mg U nivers 40 mg 8-22 by mouth ity of capsule 21:10: daily. [facility] omeprazole 2019-0 Yes 40mg Take 40 mg U nivers 40 mg 8-22 by mouth ity of capsule 21:10: daily. [place] 00 Medical Branch omeprazole 2019-0 Yes 40mg Take 40 mg U nivers 40 mg 8-22 by mouth ity of capsule 21:10: daily. [place] [facility] omeprazole 2019-0 Yes 40mg Take 40 mg U nivers 40 mg 8-22 by mouth ity of capsule 21:10: daily. [place] [facility] omeprazole 2019-0 Yes 40mg Take 40 mg U nivers 40 mg 8-22 by mouth ity of capsule 21:10: daily. [place] [facility] omeprazole 2019-0 Yes 40mg Take 40 mg U nivers 40 mg 8-22 by mouth ity of capsule 21:10: daily. [address] omeprazole 2019-0 Yes 40mg Take 40 mg U nivers 40 mg 8-22 by mouth ity of capsule 21:10: daily. [address] omeprazole 2019-0 Yes 40mg Take 40 mg U nivers 40 mg 8-22 by mouth ity of capsule 21:10: daily. [address] omeprazole 2018-0 Yes 40mg Take 40 mg U nivers 40 mg 8-22 by mouth ity of capsule 21:10: daily. [address] omeprazole 2019-0 Yes 40mg Take 40 mg U nivers 40 mg 8-22 by mouth ity of capsule 21:10: daily. [address] omeprazole 2019-0 Yes 40mg Take 40 mg U nivers 40 mg 8-22 by mouth ity of capsule 21:10: daily. [address] omeprazole 2019-0 Yes 40mg Take 40 mg U nivers 40 mg 8-22 by mouth ity of capsule 21:10: daily. [address] omeprazole 2019-0 Yes 40mg Take 40 mg U nivers 40 mg 8-22 by mouth ity of capsule 21:10: daily. [address] omeprazole 2019-0 Yes 40mg Take 40 mg U nivers 40 mg 8-22 by mouth ity of capsule 21:10: daily. [address] omeprazole 2019-0 Yes 40mg Take 40 mg U nivers 40 mg 8-22 by mouth ity of capsule 21:10: daily. [address] omeprazole 2019-0 Yes 40mg Take 40 mg U nivers 40 mg 8-22 by mouth ity of capsule 21:10: daily. [address] omeprazole 2019-0 Yes 40mg Take 40 mg U nivers 40 mg 8-22 by mouth ity of capsule 21:10: daily. [address] omeprazole Yes 40mg Take 40 mg U nivers 40 mg 8-22 by mouth ity of capsule 21:10: daily. [address] omeprazole Yes 40mg Take 40 mg U nivers 40 mg 8-22 by mouth ity of capsule 21:10: daily. [address] omeprazole Yes 40mg Take 40 mg U nivers 40 mg 8-22 by mouth ity of capsule 21:10: daily. [address] omeprazole Yes 40mg Take 40 mg U nivers 40 mg 8-22 by mouth ity of capsule 21:10: daily. [address] omeprazole Yes 40mg Take 40 mg U nivers 40 mg 8-22 by mouth ity of capsule 21:10: daily. [address] omeprazole Yes 40mg Take 40 mg U nivers 40 mg 8-22 by mouth ity of capsule 21:10: daily. [address] omeprazole Yes 40mg Take 40 mg U nivers 40 mg 8-22 by mouth ity of capsule 21:10: daily. [address] omeprazole Yes 40mg Take 40 mg U nivers 40 mg 8-22 by mouth ity of capsule 21:10: daily. [address] omeprazole Yes 40mg Take 40 mg U nivers 40 mg 8-22 by mouth ity of capsule 21:10: daily. [address] omeprazole Yes 40mg Take 40 mg U nivers 40 mg 8-22 by mouth ity of capsule 21:10: daily. [address] venlafaxine Yes major 75mg Q.5D Take 75 [...] 14:49: daily. Medical tablet 19 Center roflumilast 20190 Yes 500ug QD Take 500 [...] Medical tablet 19 times Center daily. ALPRAZolam 0 Yes 1mg Take 1 mg [facility] I [...] Medical tablet 19 times Center daily. ALPRAZolam 2018-0 Yes 1mg Take 1 mg [facility] I [...] by mouth. ity of tablet 00:00: 04:59 [place] 00 :00 [facility] pantoprazol 2018- 2020- No 40mg Take 40 mg Univers e 40 mg EC 03-06 08-12 by mouth. ity of tablet 00:00: 04:59 [place] 00 :00 [facility] pantoprazol 2018- 2020- No 40mg Take 40 mg Univers e 40 mg EC 03-06 08-12 by mouth. ity of tablet 00:00: 04:59 [place] 00 :00 [facility] pantoprazol 2019- 2020- No 40mg Take 40 mg Univers e 40 mg EC 03-06 08-12 by mouth. ity of tablet 00:00: 04:59 [place] 00 :00 [facility] pantoprazol 2018- 2020- No 40mg Take 40 mg Univers e 40 mg EC 03-06 08-12 by mouth. ity of tablet 00:00: 04:59 [place] 00 :00 [facility] pantoprazol 2019- 2020- No 40mg Take 40 mg Univers e 40 mg EC 03-06 08-12 by mouth. ity of tablet 00:00: 04:59 [place] 00 :00 [facility] pantoprazol 2019- 2020- No 40mg Take 40 mg Univers e 40 mg EC 8-12 08-12 by mouth. ity of tablet 00:00: 04:59 [place] 00 :00 Medical Branch pantoprazol 2019-0 2020- No 40mg Take 40 mg Univers e 40 mg EC 03-0612 by mouth. ity of tablet 00:00: 04:59 [place] 00 :00 Medical Branch pantoprazol 2019-0 2020- No 40mg Take 40 mg Univers e 40 mg EC 03-06 0812 by mouth. ity of tablet 00:00: 04:59 [place] 00 :00 Medical Branch pantoprazol 2019-0 2020- No 40mg Take 40 mg Univers e 40 mg EC 03-0612 by mouth. ity of tablet 00:00: 04:59 [place] 00 :00 Medical Branch pantoprazol 2019-0 2020- No 40mg Take 40 mg Univers e 40 mg EC 03-06 by mouth. ity of tablet 00:00: 04:59 [place] 00 :00 Medical Branch pantoprazol 2019-0 2020- No 40mg Take 40 mg Univers e 40 mg EC 03-06 by mouth. ity of tablet 00:00: 04:59 [place] 00 :00 Medical Branch pantoprazol 2019-0 2020- No 40mg Take 40 mg Univers e 40 mg EC 03-0612 by mouth. ity of tablet 00:00: 04:59 [place] 00 :00 Medical Branch pantoprazol 2019-0 2020- No 40mg Take 40 mg Univers e 40 mg EC 03-06 0812 by mouth. ity of tablet 00:00: 04:59 [place] 00 :00 Medical Branch pantoprazol 2019-0 2020- No 40mg Take 40 mg Univers e 40 mg EC 03-06 by mouth. ity of tablet 00:00: 04:59 [place] 00 :00 Medical Branch pantoprazol 2019-0 2020- No 40mg Take 40 mg Univers e 40 mg EC 03-06 08-12 by mouth. ity of tablet 00:00: 04:59 [place] 00 :00 Medical Branch pantoprazol 2019-0 2020- No 40mg Take 40 mg Univers e 40 mg EC 03-06 08-12 by mouth. ity of tablet 00:00: 04:59 [place] 00 :00 Medical Branch pantoprazol 2019-0 2020- No 40mg Take 40 mg Univers e 40 mg EC 8-12 08-12 by mouth. ity of tablet 00:00: 04:59 [place] 00 :00 [facility] pantoprazol 2019-0 2020- No 40mg Take 40 mg [facility] e 40 mg EC 03-06 by mouth. ity of tablet 00:00: 04:59 [place] 00 :00 [facility] pantoprazol 2019-0 2020- No 40mg Take 40 mg [facility] e 40 mg EC 03-06 by mouth. ity of tablet 00:00: 04:59 [place] 00 :00 [facility] pantoprazol 2019-0 2020- No 40mg Take 40 mg [facility] e 40 mg EC 03-06 by mouth. ity of tablet 00:00: 04:59 [place] 00 :00 [facility] dextroamphe 2019-0 Yes Take by Uni vers tamine/amph 3-11 mouth. ity of etamine 00:05: Being [place] (ADDERALL 21 prescribed Medi feliciano ORAL) by [facility] but the patient has been counseled [...] (ADDERALL 21 prescribed Medi feliciano ORAL) by [facility] but the patient has been counseled not to take it due the cardiovasc ular risks dextroamphe 2019-0 Yes Take by Uni vers tamine/amph 3-11 mouth. ity of etamine 00:05: Being [place] (ADDERALL 21 prescribed Medi feliciano ORAL) by [facility] but the patient has been counseled [...] (ADDERALL 21 prescribed Medi feliciano ORAL) by [facility] but the patient has been counseled [...] (ADDERALL 21 prescribed Medi feliciano ORAL) by [facility] but the patient has been counseled [...] (ADDERALL 21 prescribed Medi feliciano ORAL) by [facility] but the patient has been counseled not to take it due the cardiovasc ular risks dextroamphe 2019-0 Yes Take by Uni vers tamine/amph 3-11 mouth. ity of etamine 00:05: Being [place] (ADDERALL 21 prescribed Medi feliciano ORAL) by [facility] but the patient has been counseled not to take it due the cardiovasc ular risks dextroamphe 2019-0 Yes Take by Uni vers tamine/amph 3-11 mouth. ity of etamine 00:05: Being [place] (ADDERALL 21 prescribed Medi feliciano ORAL) by [facility] but the patient has been counseled not to take it due the cardiovasc ular risks dextroamphe 2019-0 Yes Take by Uni vers tamine/amph 3-11 mouth. ity of etamine 00:05: Being [place] (ADDERALL 21 prescribed Medi feliciano ORAL) by [facility] but the patient has been counseled not to take it due the cardiovasc ular risks dextroamphe 2019-0 Yes Take by Uni vers tamine/amph 3-11 mouth. ity of etamine 00:05: Being [place] (ADDERALL 21 prescribed Medi feliciano ORAL) by [facility] but the patient has been counseled not to take it due the cardiovasc ular risks dextroamphe 2019-0 Yes Take by Uni vers tamine/amph 3-11 mouth. ity of etamine 00:05: Being [place] (ADDERALL 21 prescribed Medi feliciano ORAL) by [facility] but the patient has been counseled not to take it due the cardiovasc ular risks carvedilol 2019-0 Yes 3.125mg Take 3.125 [facility] 3.125 mg 3-07 mg by ity of tablet 20:27: mouth 2 [place] [address] (two) Medical times [place] daily with meals. carvedilol 2019-0 Yes 3.125mg Take 3.125 [facility] 3.125 mg 3-07 mg by ity of tablet 20:27: mouth 2 [place] [address] (two) Medical times [place] daily with meals. carvedilol 2019-0 Yes 3.125mg Take 3.125 [facility] 3.125 mg 3-07 mg by ity of tablet 20:27: mouth 2 [place] 22 (two) Medical times Branch daily with meals. carvedilol 2019-0 Yes 3.125mg Take 3.125 [facility] 3.125 mg 3-07 mg by ity of tablet 20:27: mouth 2 [place] 22 (two) Medical times Branch daily with meals. carvedilol 2019-0 Yes 3.125mg Take 3.125 [facility] 3.125 mg 3-07 mg by ity of tablet 20:27: mouth 2 [place] 22 (two) Medical times Branch daily with meals. carvedilol 2019-0 Yes 3.125mg Take 3.125 [facility] 3.125 mg 3-07 mg by ity of tablet 20:27: mouth 2 [place] 22 (two) Medical times Branch daily with meals. carvedilol 2019-0 Yes 3.125mg Take 3.125 [facility] 3.125 mg 3-07 mg by ity of tablet 20:27: mouth 2 [place] [address] (two) Medical times Branch daily with meals. carvedilol 2019-0 Yes 3.125mg Take 3.125 [facility] 3.125 mg 3-07 mg by ity of tablet 20:27: mouth 2 [place] [address] (two) Medical times Branch daily with meals. carvedilol 2019-0 Yes 3.125mg Take 3.125 [facility] 3.125 mg 3-07 mg by ity of tablet 20:27: mouth 2 [place] [address] (two) Medical times Branch daily with meals. carvedilol 2019-0 Yes 3.125mg Take 3.125 [facility] 3.125 mg 3-07 mg by ity of tablet 20:27: mouth 2 [place] 22 (two) Medical times Branch daily with meals. carvedilol 2019-0 Yes 3.125mg Take 3.125 [facility] 3.125 mg 3-07 mg by ity of tablet 20:27: mouth 2 [place] 22 (two) Medical times Branch daily with meals. carvedilol 2019-0 Yes 3.125mg Take 3.125 [facility] 3.125 mg 3-07 mg by ity of tablet 20:27: mouth 2 [place] 22 (two) Medical times Branch daily with meals. carvedilol 2019-0 Yes 3.125mg Take 3.125 [facility] 3.125 mg 3-07 mg by ity of tablet 20:27: mouth 2 [place] [address] (two) Medical times Branch daily with meals. carvedilol 2019-0 Yes 3.125mg Take 3.125 [facility] 3.125 mg 3-07 mg by ity of tablet 20:27: mouth 2 [place] 22 (two) Medical times Branch daily with meals. carvedilol 2019-0 Yes 3.125mg Take 3.125 [facility] 3.125 mg 3-07 mg by ity of tablet 20:27: mouth 2 [place] 22 (two) Medical times Branch daily with meals. carvedilol 2019-0 Yes 3.125mg Take 3.125 [facility] 3.125 mg 3-07 mg by ity of tablet 20:27: mouth 2 [place] 22 (two) Medical times Branch daily with meals. carvedilol 2019-0 Yes 3.125mg Take 3.125 [facility] 3.125 mg 3-07 mg by ity of tablet 20:27: mouth 2 [place] 22 (two) Medical times Branch daily with meals. carvedilol 2019-0 Yes 3.125mg Take 3.125 [facility] 3.125 mg 3-07 mg by ity of tablet 20:27: mouth 2 [place] [address] (two) Medical times Branch daily with meals. carvedilol 2018-0 Yes 3.125mg Take 3.125 [facility] 3.125 mg 3-07 mg by ity of tablet 20:27: mouth 2 [place] [address] (two) Medical times Branch daily with meals. carvedilol 2019-0 Yes 3.125mg Take 3.125 [facility] 3.125 mg 3-07 mg by ity of tablet 20:27: mouth 2 [place] [address] (two) Medical times Branch daily with meals. carvedilol 2019-0 Yes 3.125mg Take 3.125 [facility] 3.125 mg 3-07 mg by ity of tablet 20:27: mouth 2 [place] [address] (two) Medical times Branch daily with meals. carvedilol 2019-0 Yes 3.125mg Take 3.125 [facility] 3.125 mg 3-07 mg by ity of tablet 20:27: mouth 2 [place] 22 (two) Medical times Branch daily with meals. carvedilol 2019-0 Yes 3.125mg Take 3.125 [facility] 3.125 mg 3-07 mg by ity of tablet 20:27: mouth 2 [place] [address] (two) Medical times Branch daily with meals. carvedilol 2019-0 Yes 3.125mg Take 3.125 [facility] 3.125 mg 3-07 mg by ity of tablet 20:27: mouth 2 [place] (two) Medical times Branch daily with meals. carvedilol 2019-0 Yes 3.125mg Take 3.125 [facility] 3.125 mg 3-07 mg by ity of tablet 20:27: mouth 2 (two) Medical times Branch daily with meals. carvedilol 2019-0 Yes 3.125mg Take 3.125 [facility] 3.125 mg 3-07 mg by ity of tablet 20:27: mouth 2 [place] (two) Medical times Branch daily with meals. carvedilol 2019-0 Yes 3.125mg Take 3.125 [facility] 3.125 mg 3-07 mg by ity of tablet 20:27: mouth 2 [place] (two) Medical times Branch daily with meals. Venlafaxine 2019-0 Yes [id number] 75mg Take 1 [facility] 75 mg 3-07 tablet by ity of tablet 00:00: mouth [place] (two) Medical times Branch daily. Additional refills per psychiatry Venlafaxine 2019-0 Yes [id number] 75mg Take 1 [facility] 75 mg 3-07 tablet by ity of tablet 00:00: mouth [place] (two) Medical times Branch daily. Additional refills per psychiatry Venlafaxine 2019-0 Yes [id number] 75mg Take 1 [facility] 75 mg 3-07 tablet by ity of tablet 00:00: mouth [place] (two) Medical times Branch daily. Additional refills per psychiatry Venlafaxine 2019-0 Yes [id number] 75mg Take 1 [facility] 75 mg 3-07 tablet by ity of tablet 00:00: mouth [place] (two) Medical times Branch daily. Additional refills per psychiatry Venlafaxine 2019-0 Yes [id number] 75mg Take 1 [facility] 75 mg 3-07 tablet by ity of tablet 00:00: mouth [place] (two) Medical times Branch daily. Additional refills per psychiatry Venlafaxine 2019-0 Yes [id number] 75mg Take 1 [facility] 75 mg 3-07 tablet by ity of tablet 00:00: mouth 2 [place] (two) Medical times Branch daily. Additional refills per psychiatry Venlafaxine 2019-0 Yes [id number] 75mg Take 1 [facility] 75 mg 3-07 tablet by ity of tablet 00:00: mouth (two) Medical times Branch daily. Additional refills per psychiatry Venlafaxine 2019-0 Yes [id number] 75mg Take 1 [facility] 75 mg 3-07 tablet by ity of tablet 00:00: mouth (two) Medical times Branch daily. Additional refills per psychiatry Venlafaxine 2019-0 Yes [id number] 75mg Take 1 [facility] 75 mg 3-07 tablet by ity of tablet 00:00: mouth (two) Medical times Branch daily. Additional refills per psychiatry Venlafaxine 2019-0 Yes [id number] 75mg Take 1 [facility] 75 mg 3-07 tablet by ity of tablet 00:00: mouth (two) Medical times Branch daily. Additional refills per psychiatry Venlafaxine 2019-0 Yes [id number] 75mg Take 1 [facility] 75 mg 3-07 tablet by ity of tablet 00:00: mouth (two) Medical times Branch daily. Additional refills per psychiatry Venlafaxine 2018-0 Yes [id number] 75mg Take 1 [facility] 75 mg 3-07 tablet by ity of tablet 00:00: mouth (two) Medical times Branch daily. Additional refills per psychiatry Venlafaxine 2018-0 Yes [id number] 75mg Take 1 [facility] 75 mg 3-07 tablet by ity of tablet 00:00: mouth () Medical times Branch daily. Additional refills per psychiatry Venlafaxine 2019-0 Yes [id number] 75mg Take 1 [facility] 75 mg 3-07 tablet by ity of tablet 00:00: mouth (two) Medical times Branch daily. Additional refills per psychiatry Venlafaxine 2019-0 Yes [id number] 75mg Take 1 [facility] 75 mg 3-07 tablet by ity of tablet 00:00: mouth (two) Medical times Branch daily. Additional refills per psychiatry Venlafaxine 2019-0 Yes [id number] 75mg Take 1 [facility] 75 mg 3-07 tablet by ity of tablet 00:00: mouth (two) Medical times Branch daily. Additional refills per psychiatry Venlafaxine 2019-0 Yes [id number] 75mg Take 1 [facility] 75 mg 3-07 tablet by ity of tablet 00:00: mouth (two) Medical times Branch daily. Additional refills per psychiatry Venlafaxine 2019-0 Yes [id number] 75mg Take 1 [facility] 75 mg 3-07 tablet by ity of tablet 00:00: mouth 2 (two) Medical times Branch daily. Additional refills per psychiatry Venlafaxine 2018-0 Yes [id number] 75mg Take 1 [facility] 75 mg 3-07 tablet by ity of tablet 00:00: mouth 2 (two) Medical times Branch daily. Additional refills per psychiatry Venlafaxine 2018-0 Yes [id number] 75mg Take 1 [facility] 75 mg 3-07 tablet by ity of tablet 00:00: mouth 2 (two) Medical times Branch daily. Additional refills per psychiatry Venlafaxine 2018-0 Yes [id number] 75mg Take 1 [facility] 75 mg 3-07 tablet by ity of tablet 00:00: mouth (two) Medical times Branch daily. Additional refills per psychiatry Venlafaxine 2018-0 Yes [id number] 75mg Take 1 [facility] 75 mg 3-07 tablet by ity of tablet 00:00: mouth (two) Medical times Branch daily. Additional refills per psychiatry Venlafaxine 2018-0 Yes [id number] 75mg Take 1 [facility] 75 mg 3-07 tablet by ity of tablet 00:00: mouth (two) Medical times Branch daily. Additional refills per psychiatry Venlafaxine 2018-0 Yes [id number] 75mg Take 1 [facility] 75 mg 3-07 tablet by ity of tablet 00:00: mouth (two) Medical times Branch daily. Additional refills per psychiatry Venlafaxine 2018-0 Yes [id number] 75mg Take 1 [facility] 75 mg 3-07 tablet by ity of tablet 00:00: mouth (two) Medical times Branch daily. Additional refills per psychiatry Venlafaxine 2018-0 Yes [id number] 75mg Take 1 [facility] 75 mg 3-07 tablet by ity of tablet 00:00: mouth 2 (two) Medical times Branch daily. Additional refills per psychiatry Venlafaxine 2018-0 Yes [id number] 75mg Take 1 [facility] 75 mg 3-07 tablet by ity of tablet 00:00: mouth 2 (two) Medical times Branch daily. Additional refills per psychiatry Venlafaxine 2018-0 Yes [id number] 75mg Take 1 [facility] 75 mg 3-07 tablet by ity of tablet 00:00: mouth 2 00 (two) Medical times Branch daily. Additional refills per psychiatry Venlafaxine 2019-0 Yes [id number] 75mg Take 1 [facility] 75 mg 3-07 tablet by ity of tablet 00:00: mouth (two) Medical times Branch daily. Additional refills per psychiatry Venlafaxine 2019-0 Yes [id number] 75mg Take 1 [facility] 75 mg 3-07 tablet by ity of tablet 00:00: mouth (two) Medical times Branch daily. Additional refills per psychiatry Venlafaxine 2019-0 Yes [id number] 75mg Take 1 [facility] 75 mg 3-07 tablet by ity of tablet 00:00: mouth (two) Medical times Branch daily. Additional refills per psychiatry Venlafaxine 2019-0 Yes [id number] 75mg Take 1 [facility] 75 mg 3-07 tablet by ity of tablet 00:00: mouth (two) Medical times Branch daily. Additional refills per psychiatry Venlafaxine 2018-0 Yes [id number] 75mg Take 1 [facility] 75 mg 3-07 tablet by ity of tablet 00:00: mouth (two) Medical times Branch daily. Additional refills per psychiatry Venlafaxine 2019-0 Yes [id number] 75mg Take 1 [facility] 75 mg 3-07 tablet by ity of tablet 00:00: mouth () Medical times Branch daily. Additional refills per psychiatry Venlafaxine 2019-0 Yes [id number] 75mg Take 1 [facility] 75 mg 3-07 tablet by ity of tablet 00:00: mouth (two) Medical times Branch daily. Additional refills per psychiatry Venlafaxine 2019-0 Yes [id number] 75mg Take 1 [facility] 75 mg 3-07 tablet by ity of tablet 00:00: mouth (two) Medical times Branch daily. Additional refills per psychiatry Venlafaxine 2019-0 Yes [id number] 75mg Take 1 [facility] 75 mg 3-07 tablet by ity of tablet 00:00: mouth (two) Medical times Branch daily. Additional refills per psychiatry Venlafaxine 2019-0 Yes [id number] 75mg Take 1 [facility] 75 mg 3-07 tablet by ity of tablet 00:00: mouth (two) Medical times Branch daily. Additional refills per psychiatry Venlafaxine 2019-0 Yes [id number] 75mg Take 1 [facility] 75 mg 3-07 tablet by ity of tablet 00:00: mouth (two) Medical times Branch daily. Additional refills per psychiatry Venlafaxine 2018-0 Yes [id number] 75mg Take 1 [facility] 75 mg 3-07 tablet by ity of tablet 00:00: mouth 2 (two) Medical times Branch daily. Additional refills per psychiatry Venlafaxine 2019-0 Yes [id number] 75mg Take 1 [facility] 75 mg 3-07 tablet by ity of tablet 00:00: mouth 2 (two) Medical times Branch daily. Additional refills per psychiatry Venlafaxine 2018-0 Yes [id number] 75mg Take 1 [facility] 75 mg 3-07 tablet by ity of tablet 00:00: mouth (two) Medical times Branch daily. Additional refills per psychiatry Venlafaxine 2018-0 Yes [id number] 75mg Take 1 [facility] 75 mg 3-07 tablet by ity of tablet 00:00: mouth (two) Medical times Branch daily. Additional refills per psychiatry Venlafaxine 2018-0 Yes [id number] 75mg Take 1 [facility] 75 mg 3-07 tablet by ity of tablet 00:00: mouth (two) Medical times Branch daily. Additional refills per psychiatry Venlafaxine 2018-0 Yes [id number] 75mg Take 1 [facility] 75 mg 3-07 tablet by ity of tablet 00:00: mouth (two) Medical times Branch daily. Additional refills per psychiatry Venlafaxine 2018-0 Yes [id number] 75mg Take 1 [facility] 75 mg 3-07 tablet by ity of tablet 00:00: mouth (two) Medical times Branch daily. Additional refills per psychiatry Venlafaxine 2018-0 Yes [id number] 75mg Take 1 [facility] 75 mg 3-07 tablet by ity of tablet 00:00: mouth 2 (two) Medical times Branch daily. Additional refills per psychiatry Venlafaxine 2019-0 Yes [id number] 75mg Take 1 [facility] 75 mg 3-07 tablet by ity of tablet 00:00: mouth 2 (two) Medical times Branch daily. Additional refills per psychiatry Venlafaxine 2019-0 Yes [id number] 75mg Take 1 [facility] 75 mg 3-07 tablet by ity of tablet 00:00: mouth (two) Medical times Branch daily. Additional refills per psychiatry Venlafaxine 2019-0 Yes [id number] 75mg Take 1 [facility] 75 mg 3-07 tablet by ity of tablet 00:00: mouth (two) Medical times Branch daily. Additional refills per psychiatry Venlafaxine 2019-0 Yes [id number] 75mg Take 1 [facility] 75 mg 3-07 tablet by ity of tablet 00:00: mouth (two) Medical times Branch daily. Additional refills per psychiatry Venlafaxine 2019-0 Yes [id number] 75mg Take 1 [facility] 75 mg 3-07 tablet by ity of tablet 00:00: mouth (two) Medical times Branch daily. Additional refills per psychiatry Venlafaxine 2019-0 Yes [id number] 75mg Take 1 [facility] 75 mg 3-07 tablet by ity of tablet 00:00: mouth (two) Medical times Branch daily. Additional refills per psychiatry Venlafaxine 2018-0 Yes [id number] 75mg Take 1 [facility] 75 mg 3-07 tablet by ity of tablet 00:00: mouth (two) Medical times Branch daily. Additional refills per psychiatry Venlafaxine 2018-0 Yes [id number] 75mg Take 1 [facility] 75 mg 3-07 tablet by ity of tablet 00:00: mouth (two) Medical times Branch daily. Additional refills per psychiatry Venlafaxine 2019-0 Yes [id number] 75mg Take 1 [facility] 75 mg 3-07 tablet by ity of tablet 00:00: mouth (two) Medical times Branch daily. Additional refills per psychiatry Venlafaxine 2019-0 Yes [id number] 75mg Take 1 [facility] 75 mg 3-07 tablet by ity of tablet 00:00: mouth (two) Medical times Branch daily. Additional refills per psychiatry Venlafaxine 2019-0 Yes [id number] 75mg Take 1 [facility] 75 mg 3-07 tablet by ity of tablet 00:00: mouth (two) Medical times Branch daily. Additional refills per psychiatry Venlafaxine 2019-0 Yes [id number] 75mg Take 1 [facility] 75 mg 3-07 tablet by ity of tablet 00:00: mouth (two) Medical times Branch daily. Additional refills per psychiatry Venlafaxine 2018- Yes [id number] 75mg Take 1 [facility] 75 mg 3-07 tablet by ity of tablet 00:00: mouth 2 [place] 00 (two) Medical times Branch daily. Additional refills per psychiatry Venlafaxine 2018- Yes [id number] 75mg Take 1 [facility] 75 mg 3-07 tablet by ity of tablet 00:00: mouth 2 00 (two) Medical times Branch daily. Additional [...] for Wheezing or Shortness of Breath. ALPRAZolam 2015-0 Yes 1mg Take 1 mg [facility] (XANAX) 1 4-05 by mouth 3 ity of mg tablet 00:00: (three) [place] 00 times Medical daily. Branch ALPRAZolam 2015-0 Yes 1mg Take 1 mg [facility] (XANAX) 1 4-05 by mouth 4 ity of mg tablet 00:00: (four) [place] 00 times Medical daily. Branch ALPRAZolam 2016-0 Yes 1mg Take 1 mg [facility] (XANAX) 1 4-05 by mouth 4 ity of mg tablet 00:00: (four) [place] 00 times Medical daily. Branch ALPRAZolam 2016-0 Yes 1mg Take 1 mg [facility] (XANAX) 1 4-05 by mouth 4 ity of mg tablet 00:00: (four) [place] 00 times Medical daily. Branch ALPRAZolam 2016-0 Yes 1mg Take 1 mg [facility] (XANAX) 1 4-05 by mouth 4 ity of mg tablet 00:00: (four) [place] 00 times Medical daily. Branch ALPRAZolam 2015-0 Yes 1mg Take 1 mg [facility] (XANAX) 1 4-05 by mouth 4 ity of mg tablet 00:00: (four) [place] 00 times Medical daily. Branch ALPRAZolam 2016-0 Yes 1mg Take 1 mg [facility] (XANAX) 1 4-05 by mouth 4 ity of mg tablet 00:00: (four) [place] 00 times Medical daily. Branch ALPRAZolam 2016-0 Yes 1mg Take 1 mg [facility] (XANAX) 1 4-05 by mouth 4 ity of mg tablet 00:00: (four) [place] 00 times Medical daily. Branch ALPRAZolam 2016-0 Yes 1mg Take 1 mg [facility] (XANAX) 1 4-05 by mouth 4 ity of mg tablet 00:00: (four) [place] 00 times Medical daily. Branch ALPRAZolam 2016-0 [...] 2016-0 Yes 1mg Take 1 mg [facility] (XANAX) 1 4-05 by mouth 3 ity of mg tablet 00:00: (three) [place] 00 times Medical daily. Branch ALPRAZolam 2016-0 Yes 1mg Take 1 mg [facility] (XANAX) 1 4-05 by mouth 3 ity of mg tablet 00:00: (three) [place] 00 times Medical daily. Branch ALPRAZolam 2016-0 2020- No 1mg Take 1 mg U nivers (XANAX) 1 10-28 07-30 by mouth 3 ity of mg tablet 00:00: 00:00 (three[place] times Medical daily. Branch predniSONE 2016-0 Yes 10mg Take 10 mg U nivers (DELTASONE) 3-22 by mouth ity of 10 mg 00:00: daily. [place] tablet 00 [facility] predniSONE 2016-0 Yes 10mg Take 10 mg U nivers (DELTASONE) 3-22 by mouth ity of 10 mg 00:00: daily. [place] tablet 00 [facility] predniSONE 2016-0 Yes 10mg Take 10 mg U nivers (DELTASONE) 3-22 by mouth ity of 10 mg 00:00: daily. [place] tablet 00 [facility] predniSONE 2016-0 Yes 10mg Take 10 mg U nivers (DELTASONE) 3-22 by mouth ity of 10 mg 00:00: daily. [place] tablet 00 [facility] predniSONE 2016-0 Yes 10mg Take 10 mg U nivers (DELTASONE) 3-22 by mouth ity of 10 mg 00:00: daily. [place] tablet 00 [facility] predniSONE 2016-0 Yes 10mg Take 10 mg U nivers (DELTASONE) 3-22 by mouth ity of 10 mg 00:00: daily. [place] tablet 00 [facility] predniSONE 2016-0 Yes 10mg Take 10 mg U nivers (DELTASONE) 3-22 by mouth ity of 10 mg 00:00: daily. [place] tablet 00 [facility] predniSONE 2016-0 Yes 10mg Take 10 mg U nivers (DELTASONE) 3-22 by mouth ity of 10 mg 00:00: daily. [place] tablet 00 [facility] predniSONE 2016-0 Yes 10mg Take 10 mg U nivers (DELTASONE) 3-22 by mouth ity of 10 mg 00:00: daily. [place] tablet 00 [facility] predniSONE 2016-0 Yes 10mg Take 10 mg U nivers (DELTASONE) 3-22 by mouth ity of 10 mg 00:00: daily. [place] tablet 00 [facility] predniSONE 2016-0 Yes 10mg Take 10 mg U nivers (DELTASONE) 3-22 by mouth ity of 10 mg 00:00: daily. [place] tablet 00 [facility] predniSONE Yes 10mg Take 10 mg U nivers (DELTASONE) 3-22 by mouth ity of 10 mg 00:00: daily. [place] tablet 00 [facility] predniSONE Yes 10mg Take 10 mg U nivers (DELTASONE) 3-22 by mouth ity of 10 mg 00:00: daily. [place] tablet 00 [facility] predniSONE Yes 10mg Take 10 mg U nivers (DELTASONE) 3-22 by mouth ity of 10 mg 00:00: daily. [place] tablet 00 [facility] predniSONE Yes 10mg Take 10 mg U nivers (DELTASONE) 3-22 by mouth ity of 10 mg 00:00: daily. [place] tablet 00 [facility] omeprazole Yes 40mg Take 40 mg U nivers (PRILOSEC) 3-08 by mouth ity o f 40 mg 00:00: daily. [place] capsule 00 [facility] omeprazole 2019- No 40mg Take 40 mg [facility] (PRILOSEC) 3-22 by mouth ity of 40 mg 00:00: 00:00 daily. [place] capsule 00 :00 [facility] omeprazole 2019- No 40mg Take 40 mg [facility] (PRILOSEC) 3- 08-22 by mouth ity of 40 mg 00:00: 00:00 daily. [place] capsule 00 :00 [facility] Yes 250ug Take 250 Univ ers 500 mcg 3-07 mcg by ity of tablet 00:00: mouth daily. [facility] Yes 250ug Take 250 Univ ers 500 mcg 3-07 mcg by ity of tablet 00:00: mouth daily. [facility] Yes 1{tbl} Take 1 Unive rs 500 mcg 3-07 tablet by ity of tablet 00:00: mouth daily. [facility] Yes 250ug Take 250 Univ ers 500 mcg 3-07 mcg by ity of tablet 00:00: mouth 00 daily. [facility] Yes 250ug Take 250 Univ ers 500 mcg 3-07 mcg by ity of tablet 00:00: mouth daily. [facility] Yes 250ug Take 250 Univ ers 500 mcg 3-07 mcg by ity of tablet 00:00: mouth [place] 00 daily. [facility] 2015-0 Yes 1{tbl} Take 1 Unive rs 500 mcg 3-07 tablet by ity of tablet 00:00: mouth [place] 00 daily. [facility] 2015-0 Yes 250ug Take 250 Univ ers 500 mcg 3-07 mcg by ity of tablet 00:00: mouth [place] 00 daily. [facility] 2015-0 Yes 250ug Take 250 Univ ers 500 mcg 3-07 mcg by ity of tablet 00:00: mouth [place] 00 daily. [facility] 0 Yes 250ug Take 250 Univ ers 500 mcg 3-07 mcg by ity of tablet 00:00: mouth [place] 00 daily. [facility] 0 Yes 250ug Take 250 Univ ers 500 mcg 3-07 mcg by ity of tablet 00:00: mouth [place] 00 daily. [facility] 0 Yes 1{tbl} Take 1 Unive rs 500 mcg 3-07 tablet by ity of tablet 00:00: mouth [place] 00 daily. [facility] 0 Yes 250ug Take 250 Univ ers 500 mcg 3-07 mcg by ity of tablet 00:00: mouth [place] 00 daily. [facility] 0 Yes 1{tbl} Take 1 Unive rs 500 mcg 3-07 tablet by ity of tablet 00:00: mouth [place] 00 daily. [facility] 0 Yes 1{tbl} Take 1 Unive rs 500 mcg 3-07 tablet by ity of tablet 00:00: mouth [place] 00 daily. [facility] 0 Yes 1{tbl} Take 1 Unive rs 500 mcg 3-07 tablet by ity of tablet 00:00: mouth [place] 00 daily. [facility] 0 Yes 1{tbl} Take 1 Unive rs 500 mcg 3-07 tablet by ity of tablet 00:00: mouth [place] 00 daily. [facility] 0 Yes 1{tbl} Take 1 Unive rs 500 mcg 3-07 tablet by ity of tablet 00:00: mouth [place] 00 daily. [facility] 2015-0 Yes 1{tbl} Take 1 Unive rs 500 mcg 3-07 tablet by ity of tablet 00:00: mouth [place] 00 daily. [facility] Yes 1{tbl} Take 1 Unive rs 500 mcg 3-07 tablet by ity of tablet 00:00: mouth [place] 00 daily. [facility] 0 Yes 1{tbl} Take 1 Unive rs 500 mcg 3-07 tablet by ity of tablet 00:00: mouth [place] 00 daily. [facility] Yes 1{tbl} Take 1 Unive rs 500 mcg 3-07 tablet by ity of tablet 00:00: mouth [place] 00 daily. [facility] Yes 1{tbl} Take 1 Unive rs 500 mcg 3-07 tablet by ity of tablet 00:00: mouth [place] 00 daily. [facility] Yes 1{tbl} Take 1 Unive rs 500 mcg 3-07 tablet by ity of tablet 00:00: mouth [place] 00 daily. [facility] Yes 1{tbl} Take 1 Unive rs 500 mcg 3-07 tablet by ity of tablet 00:00: mouth [place] 00 daily. [facility] Yes 1{tbl} Take 1 Unive rs 500 mcg 3-07 tablet by ity of tablet 00:00: mouth [place] 00 daily. [facility] Yes 1{tbl} Take 1 Unive rs 500 mcg 3-07 tablet by ity of tablet 00:00: mouth [place] 00 daily. [facility] Yes 1{tbl} Take 1 Unive rs 500 mcg 3-07 tablet by ity of tablet 00:00: mouth [place] 00 daily. [facility] Yes 1{tbl} Take 1 Unive rs 500 mcg 3-07 tablet by ity of tablet 00:00: mouth [place] 00 daily. [facility] 0 Yes 1{tbl} Take 1 Unive rs 500 mcg 3-07 tablet by ity of tablet 00:00: mouth [place] 00 daily. [facility] 0 Yes 1{tbl} Take 1 Unive rs 500 mcg 3-07 tablet by ity of tablet 00:00: mouth [place] 00 daily. [facility] Yes 1{tbl} Take 1 Unive rs 500 mcg 3-07 tablet by ity of tablet 00:00: mouth [place] 00 daily. [facility] 2016-0 Yes 1{tbl} Take 1 Unive rs 500 mcg 3-07 tablet by ity of tablet 00:00: mouth [place] 00 daily. [facility] 2016-0 Yes 250ug Take 250 Univ ers 500 mcg 3-07 mcg by ity of tablet 00:00: mouth [place] 00 daily. [facility] 2015-0 Yes 250ug Take 250 Univ ers 500 mcg 3-07 mcg by ity of tablet 00:00: mouth [place] 00 daily. [facility] 2015-0 Yes 250ug Take 250 Univ ers 500 mcg 3-07 mcg by ity of tablet 00:00: mouth [place] 00 daily. [facility] 2015-0 Yes 250ug Take 250 Univ ers 500 mcg 3-07 mcg by ity of tablet 00:00: mouth [place] 00 daily. [facility] 2015-0 Yes 250ug Take 250 Univ ers 500 mcg 3-07 mcg by ity of tablet 00:00: mouth [place] 00 daily. [facility] 2015-0 Yes 250ug Take 250 Univ ers 500 mcg 3-07 mcg by ity of tablet 00:00: mouth [place] 00 daily. [facility] 2016-0 Yes 1{tbl} Take 1 Unive rs 500 mcg 3-07 tablet by ity of tablet 00:00: mouth [place] 00 daily. [facility] 2016-0 Yes 250ug Take 250 Univ ers 500 mcg 3-07 mcg by ity of tablet 00:00: mouth [place] 00 daily. [facility] 2015-0 Yes 250ug Take 250 Univ ers 500 mcg 3-07 mcg by ity of tablet 00:00: mouth [place] 00 daily. [facility] 2015-0 Yes 250ug Take 250 Univ ers 500 mcg 3-07 mcg by ity of tablet 00:00: mouth [place] 00 daily. [facility] 2015-0 Yes 250ug Take 250 Univ ers 500 mcg 3-07 mcg by ity of tablet 00:00: mouth [place] 00 daily. [facility] 2016-0 Yes 250ug Take 250 Univ ers 500 mcg 3-07 mcg by ity of tablet 00:00: mouth [place] 00 daily. [facility] 2015-0 Yes 250ug Take 250 Univ ers 500 mcg 3-07 mcg by ity of tablet 00:00: mouth [place] 00 daily. [facility] 2016-0 Yes 250ug Take 250 Univ ers 500 mcg 3-07 mcg by ity of tablet 00:00: mouth [place] 00 daily. [facility] 2016-0 Yes 250ug Take 250 Univ ers 500 mcg 3-07 mcg by ity of tablet 00:00: mouth [place] 00 daily. [facility] 2016-0 Yes 250ug Take 250 Univ ers 500 mcg 3-07 mcg by ity of tablet 00:00: mouth [place] 00 daily. [facility] 2016-0 Yes 1{tbl} Take 1 Unive rs 500 mcg 3-07 tablet by ity of tablet 00:00: mouth [place] 00 daily. [facility] 2015-0 Yes 250ug Take 250 Univ ers 500 mcg 3-07 mcg by ity of tablet 00:00: mouth [place] 00 daily. [facility] 2015-0 Yes 250ug Take 250 Univ ers 500 mcg 3-07 mcg by ity of tablet 00:00: mouth [place] 00 daily. [facility] 2015-0 Yes 250ug Take 250 Univ ers 500 mcg 3-07 mcg by ity of tablet 00:00: mouth [place] 00 daily. [facility] 2015-0 Yes 250ug Take 250 Univ ers 500 mcg 3-07 mcg by ity of tablet 00:00: mouth [place] 00 daily. [facility] 2016-0 Yes 1{tbl} Take 1 Unive rs 500 mcg 3-07 tablet by ity of tablet 00:00: mouth [place] 00 daily. [facility] 2015-0 Yes 250ug Take 250 Univ ers 500 mcg 3-07 mcg by ity of tablet 00:00: mouth [place] 00 daily. [facility] 2015-0 Yes 250ug Take 250 Univ ers 500 mcg 3-07 mcg by ity of tablet 00:00: mouth [place] 00 daily. [facility] 2015-0 Yes 250ug Take 250 Univ ers 500 mcg 3-07 mcg by ity of tablet 00:00: mouth [place] 00 daily. [facility] 2016-0 Yes 1{tbl} Take 1 Unive rs 500 mcg 3-07 tablet by ity of tablet 00:00: mouth [place] 00 daily. [facility] 2015-0 Yes 250ug Take 250 Univ ers 500 mcg 3-07 mcg by ity of tablet 00:00: mouth daily. [facility] DALIR[facility] 2016-0 Yes 250ug Take 250 Univ ers 500 mcg 3-07 mcg by ity of tablet 00:00: mouth daily. [facility] BREO 0 Yes 1{puff} Inhale 1 Univer s ELLIPTA 2-02 Puff ity of 100-25 00:00: daily. [place] mcg/dose 00 Medical [facility] Yes 1{puff} Inhale 1 Univer s ELLIPTA 2-02 Puff ity of 100-25 00:00: daily. [place] mcg/dose 00 Medical [facility] Yes 1{puff} Inhale 1 Univer s ELLIPTA 2-02 Puff ity of 100-25 00:00: daily. [place] mcg/dose 00 Medical [facility] Yes 1{puff} Inhale 1 Univer s ELLIPTA 2-02 Puff ity of 100-25 00:00: daily. [place] mcg/dose 00 Medical [facility] Yes 1{puff} Inhale 1 Univer s ELLIPTA 2-02 Puff ity of 100-25 00:00: daily. [place] mcg/dose 00 Medical [facility] Yes 1{puff} Inhale 1 Univer s ELLIPTA 2-02 Puff ity of 100-25 00:00: daily. [place] mcg/dose 00 Medical [facility] Yes 1{puff} Inhale 1 Univer s ELLIPTA 2-02 Puff ity of 100-25 00:00: daily. [place] mcg/dose 00 Medical [facility] Yes 1{puff} Inhale 1 Univer s ELLIPTA 2-02 Puff ity of 100-25 00:00: daily. [place] mcg/dose 00 Medical [facility] Yes 1{puff} Inhale 1 Univer s ELLIPTA 2-02 Puff ity of 100-25 00:00: daily. [place] mcg/dose 00 Medical [facility] Yes 1{puff} Inhale 1 Univer s ELLIPTA 2-02 Puff ity of 100-25 00:00: daily. [place] mcg/dose 00 Medical [facility] BREO Yes 1{puff} Inhale 1 Univer [...] Immunizations Ordered Filled Immunization Date Status Comments [facility] e Immunization Name Name Influenza Virus 2019-04-07 Completed Universit y of Vaccine 00:00:00 [facility] Influenza Virus 2019-04-07 Completed Universit y of Vaccine 00:00:00 [facility] Influenza Virus 2019-04-07 Completed Universit y of Vaccine 00:00:00 [facility] Influenza Virus 2019-04-07 Completed Universit y of Vaccine 00:00:00 [facility] Influenza Virus 2019-04-07 Completed Universit y of Vaccine 00:00:00 [facility] Influenza Virus 2019-04-07 Completed Universit y of Vaccine 00:00:00 [facility] Influenza Virus 2019-04-07 Completed Universit y of Vaccine 00:00:00 [facility] Influenza Virus 2019-04-07 Completed Universit y of Vaccine 00:00:00 [facility] Influenza Virus 2019-04-07 Completed Universit y of Vaccine 00:00:00 [facility] Influenza Virus 2019-04-07 Completed Universit y of Vaccine 00:00:00 [facility] Influenza Virus 2019-04-07 Completed Universit y of Vaccine 00:00:00 [facility] Influenza Virus 2019-04-07 Completed Universit y of Vaccine 00:00:00 [facility] Influenza Virus 2019-04-07 Completed Universit y of Vaccine 00:00:00 [facility] Influenza Virus 2019-04-07 Completed Universit y of Vaccine 00:00:00 [facility] Influenza Virus 2019-04-07 Completed Universit y of Vaccine 00:00:00 [facility] Influenza Virus 2019-04-07 Completed Universit y of Vaccine 00:00:00 [facility] Influenza Virus 2019-04-07 Completed Universit y of Vaccine 00:00:00 [facility] Influenza Virus 2019-04-07 Completed Universit y of Vaccine 00:00:00 [facility] Influenza Virus 2019-04-07 Completed Universit y of Vaccine 00:00:00 [facility] Influenza Virus 2019-04-07 Completed Universit y of Vaccine 00:00:00 [facility] Influenza Virus 2019-04-07 Completed Universit y of Vaccine 00:00:00 [facility] Influenza Virus 2019-04-07 Completed Universit y of Vaccine 00:00:00 [facility] Influenza Virus 2019-04-07 Completed Universit y of Vaccine 00:00:00 [facility] Influenza Virus 2019-04-07 Completed Universit y of Vaccine 00:00:00 [facility] Influenza Virus 2019-04-07 Completed Universit y of Vaccine 00:00:00 [facility] Influenza Virus 2019-04-07 Completed Universit y of Vaccine 00:00:00 [facility] Influenza Virus 2019-04-07 Completed Universit y of Vaccine 00:00:00 [facility] Influenza Virus 2019-04-07 Completed Universit y of Vaccine 00:00:00 [facility] Influenza Virus 2019-04-07 Completed Universit y of Vaccine 00:00:00 [facility] Influenza Virus 2019-04-07 Completed Universit y of Vaccine 00:00:00 [facility] Influenza Virus 2019-04-07 Completed Universit y of Vaccine 00:00:00 [facility] Influenza Virus 2019-04-07 Completed Universit y of Vaccine 00:00:00 [facility] Influenza Virus 2019-04-07 Completed Universit y of Vaccine 00:00:00 [facility] Influenza Virus 2019-04-07 Completed Universit y of Vaccine 00:00:00 [facility] Influenza Virus 2019-04-07 Completed Universit y of Vaccine 00:00:00 [facility] Influenza Virus 2019-04-07 Completed Universit y of Vaccine 00:00:00 [facility] Influenza Virus 2019-04-07 Completed Universit y of Vaccine 00:00:00 [facility] Influenza Virus 2019-04-07 Completed Universit y of Vaccine 00:00:00 [facility] Influenza Virus 2019-04-07 Completed Universit y of Vaccine 00:00:00 [facility] Influenza Virus 2019-04-07 Completed Universit y of Vaccine 00:00:00 [facility] Influenza Virus 2019-04-07 Completed Universit y of Vaccine 00:00:00 [facility] Influenza Virus 2019-04-07 Completed Universit y of Vaccine 00:00:00 [facility] Influenza Virus 2019-04-07 Completed Universit y of Vaccine 00:00:00 [facility] Influenza Virus 2019-04-07 Completed Universit y of Vaccine 00:00:00 [facility] Influenza Virus 2019-04-07 Completed Universit y of Vaccine 00:00:00 [facility] Influenza Virus 2019-04-07 Completed Universit y of Vaccine 00:00:00 [facility] Vital Signs Vital Name Observation Time Observation Value Comments Source Systolic blood 2022-09-17 00:35:00 128 mm[Hg] Univer sity of pressure [facility] Diastolic blood 2022-09-17 00:35:00 71 mm[Hg] Unive rsity of pressure [facility] Heart rate 2022-09-17 00:33:00 115 /min [facility] Body temperature 2022-09-17 00:33:00 36.89 [facility] 2022-09-17 00:33:00 20 [facility] Body height 2022-09-17 00:33:00 152.4 cm Universi ty of [facility] Body weight 2022-09-17 00:33:00 51.256 kg [facility] [place] [facility] BMI 2022-09-17 00:33:00 22.07 kg/m2 [facility] [place] [facility] Oxygen saturation in 2022-09-17 00:33:00 92 /min [facility] Arterial blood by [facility] Pulse oximetry Branch Systolic blood 2020-11-20 16:07:00 143 mm[Hg] Univer sity of pressure [place] [facility] Diastolic blood 2020-11-20 16:07:00 77 mm[Hg] Unive rsity of pressure [place] [facility] Heart rate 2020-11-20 16:07:00 114 /min [facility] [place] [facility] Body temperature 2020-11-20 16:07:00 36.39 Geovanna [facility] ers[facility] [place] [facility] Body height 2020-11-20 16:07:00 152.4 cm [facility] [place] [facility] Body weight 2020-11-20 16:07:00 52.844 kg [facility] [place] [facility] BMI 2020-11-20 16:07:00 22.75 kg/m2 [facility] [place] [facility] Oxygen saturation in 2020-11-20 16:07:00 96 /min [facility] Arterial blood by [facility] Pulse oximetry Branch Systolic blood 2020-03-29 05:00:00 165 mm[Hg] Univer sity of pressure [facility] Diastolic blood 2020-03-29 05:00:00 88 mm[Hg] Unive rsity of pressure [facility] Heart rate 2020-03-29 05:00:00 82 /min [facility] [place] [facility] Respiratory rate 2020-03-29 05:00:00 20 /min Univ ersity [facility] [place] [facility] Oxygen saturation in 2020-03-29 05:00:00 96 /min [facility] Arterial blood by [facility] Pulse oximetry Branch Body temperature 2020-03-29 01:46:00 37.56 Geovanna [facility] ersity [facility] [place] [facility] Body weight 2020-03-29 01:46:00 51.71 kg [facility] [place] [facility] BMI 2020-03-29 01:46:00 22.26 kg/m2 [facility] [place] [facility] Systolic blood 2020-03-29 05:00:00 165 mm[Hg] Univer sity of pressure [facility] Diastolic blood 2020-03-29 05:00:00 88 mm[Hg] Unive rsity of pressure [place] [facility] Heart rate 2020-03-29 05:00:00 82 /min [facility] [place] [facility] Respiratory rate 2020-03-29 05:00:00 20 /min Univ ersity of [place] [facility] Oxygen saturation in 2020-03-29 05:00:00 96 /min [facility] Arterial blood by [facility] Pulse oximetry Branch Body temperature 2020-03-29 01:46:00 37.56 Geovanna Univ ersity of [place] [facility] Body weight 2020-03-29 01:46:00 51.71 kg [facility] [place] [facility] BMI 2020-03-29 01:46:00 22.26 kg/m2 [facility] [place] [facility] Systolic blood 2020-02-23 00:25:00 99 mm[Hg] Univer sity of pressure [place] [facility] Diastolic blood 2020-02-23 00:25:00 50 mm[Hg] Unive rsity of pressure [place] [facility] Heart rate 2020-02-23 00:25:00 77 /min [facility] [place] [facility] Body temperature 2020-02-23 00:25:00 36.61 Geovanna Univ ersity [facility] [place] [facility] Respiratory rate 2020-02-23 00:25:00 18 /min Univ ersity [facility] [place] [facility] Oxygen saturation in 2020-02-23 00:25:00 96 /min [facility] Arterial blood by [facility] Pulse oximetry Branch Body weight 2020-02-22 08:18:00 53.479 kg [facility] [place] [facility] BMI 2020-02-22 08:18:00 23.03 kg/m2 [facility] [place] [facility] Systolic blood 2020-02-23 00:25:00 99 mm[Hg] Univer sity of pressure [place] [facility] Diastolic blood 2020-02-23 00:25:00 50 mm[Hg] Unive rsity of pressure [place] [facility] Heart rate 2020-02-23 00:25:00 77 /min [facility] [place] [facility] Body temperature 2020-02-23 00:25:00 36.61 Geovanna [facility] ers[facility] [place] [facility] Respiratory rate 2020-02-23 00:25:00 18 /min Univ ersity [facility] [place] [facility] Oxygen saturation in 2020-02-23 00:25:00 96 /min [facility] Arterial blood by [place] [employer] [facility] Pulse oximetry Branch Body weight 2020-02-22 08:18:00 53.479 kg [facility] [place] [facility] BMI 2020-02-22 08:18:00 23.03 kg/m2 [facility] [place] [facility] Systolic blood 2020-02-15 00:00:00 153 mm[Hg] Univer sity of pressure [place] [facility] Diastolic blood 2020-02-15 00:00:00 69 mm[Hg] Unive rsity of pressure [place] [facility] Heart rate 2020-02-15 00:00:00 96 /min [facility] [place] [facility] Respiratory rate 2020-02-15 00:00:00 14 /min Univ ers[facility] [place] [facility] Oxygen saturation in 2020-02-15 00:00:00 95 /min [facility] blood by [place] [employer] [facility] Pulse oximetry Branch Body temperature 2020-02-14 20:13:00 37.39 Geovanna [facility] ers[facility] [place] [facility] Body weight 2020-02-14 20:13:00 52.164 kg [facility] [place] [facility] BMI 2020-02-14 20:13:00 22.46 kg/m2 [facility] [place] [facility] Systolic blood 2020-02-14 19:24:00 153 mm[Hg] Univer sity of pressure [place] [facility] Diastolic blood 2020-02-14 19:24:00 90 mm[Hg] Unive rsity of pressure [place] [facility] Heart rate 2020-02-14 19:24:00 120 /min [facility] [place] [facility] Body temperature 2020-02-14 19:22:00 36.83 Geovanna Univ ers[facility] [place] [facility] Respiratory rate 2020-02-14 19:22:00 21 /min Univ ersity [facility] [place] [facility] Body height 2020-02-14 19:22:00 152.4 cm [facility] [place] [facility] Body weight 2020-02-14 19:22:00 52.164 kg [facility] [place] [facility] BMI 2020-02-14 19:22:00 22.46 kg/m2 [facility] [place] [facility] Oxygen saturation in 2020-02-14 19:22:00 95 /min [facility]ial blood by [place] [employer] Pulse oximetry Branch Systolic blood 2020-01-29 16:22:00 171 mm[Hg] Univer sity of pressure [place] [facility] Diastolic blood 2020-01-29 16:22:00 79 mm[Hg] Unive rsity of pressure [place] [facility] Heart rate 2020-01-29 16:21:00 100 /min [facility] [place] [facility] Body temperature 2020-01-29 16:21:00 36.5 Geovanna Univ ersity [facility] [place] [facility] Respiratory rate 2020-01-29 16:21:00 16 /min Univ ersity [facility] [place] [facility] Body height 2020-01-29 16:21:00 152.4 cm [facility] [place] [facility] Body weight 2020-01-29 16:21:00 53.071 kg [facility] [place] [facility] BMI 2020-01-29 16:21:00 22.85 kg/m2 [facility] [place] [facility] Oxygen saturation in 2020-01-29 16:21:00 100 /min [facility]ial blood by [facility] Pulse oximetry Branch Systolic blood 2020-01-03 21:00:00 166 mm[Hg] Univer sity of pressure [place] [facility] Diastolic blood 2020-01-03 21:00:00 76 mm[Hg] Unive rsity of pressure [facility] Heart rate 2020-01-03 21:00:00 100 /min [facility] [place] [facility] Respiratory rate 2020-01-03 21:00:00 17 /min Univ ers[facility] [place] [facility] Oxygen saturation in 2020-01-03 21:00:00 94 /min [facility]ial blood by [facility] Pulse oximetry Branch Body temperature 2020-01-03 16:45:00 36.72 Geovanna [facility] [place] [facility] Body weight 2020-01-03 16:45:00 53.071 kg [facility] [place] [facility] BMI 2020-01-03 16:45:00 22.11 kg/m2 [facility] [place] [facility] Heart rate 2019-12-08 13:35:00 111 /min [facility] [place] [facility] Respiratory rate 2019-12-08 13:35:00 20 /min Univ ers[facility] [place] [facility] Oxygen saturation in 2019-12-08 13:35:00 94 /min [facility]ial blood by [facility] Pulse oximetry Branch Systolic blood 2019-12-08 12:42:00 169 mm[Hg] Univer sity of pressure [place] [facility] Diastolic blood 2019-12-08 12:42:00 76 mm[Hg] Unive rsity of pressure [facility] Body temperature 2019-12-08 12:42:00 36.78 Geovanna Univ ersity of [facility] Body height 2019-12-05 16:38:00 154.9 cm [facility] [place] [facility] [place] Body weight 2019-12-05 16:38:00 54.885 kg [facility] [place] [facility] BMI 2019-12-05 16:38:00 22.86 kg/m2 Universi ty of [facility] Systolic blood 2019-09-20 20:34:00 164 mm[Hg] Univer sity of pressure [facility] Diastolic blood 2019-09-20 20:34:00 76 mm[Hg] Unive rsity of pressure [facility] Heart rate 2019-09-20 20:34:00 80 /min Universi ty of [facility] Body temperature 2019-09-20 20:29:00 36.67 Geovanna Univ ersity of [facility] Respiratory rate 2019-09-20 20:29:00 20 /min Univ ersity of [facility] Body height 2019-09-20 20:29:00 157.5 cm Universi ty of [facility] Body weight 2019-09-20 20:29:00 52.345 kg [facility] [place] [facility] BMI 2019-09-20 20:29:00 21.11 kg/m2 Universi ty of [facility] Oxygen saturation in 2019-09-20 20:29:00 98 /min [facility] Arterial blood by [facility] Pulse oximetry Branch Systolic blood 2019-08-31 22:02:00 159 mm[Hg] Univer sity of pressure [facility] Diastolic blood 2019-08-31 22:02:00 79 mm[Hg] Unive rsity of pressure [facility] Heart rate 2019-08-31 22:02:00 101 /min Universi ty of [facility] Body temperature 2019-08-31 22:02:00 36.56 Geovanna Univ ersity of [facility] Body height 2019-08-31 22:02:00 153.7 cm Universi ty of [facility] Body weight 2019-08-31 22:02:00 52.617 kg [facility] BMI 2019-08-31 22:02:00 22.28 kg/m2 Universi ty of [facility] Systolic blood 2019-03-29 19:16:00 157 mm[Hg] Univer sity of pressure [facility] Diastolic blood 2019-03-29 19:16:00 71 mm[Hg] Unive rsity of pressure [facility] Heart rate 2019-03-29 19:16:00 114 /min [facility] Body temperature 2019-03-29 19:16:00 36.17 Geovanna [facility] Respiratory rate 2019-03-29 19:16:00 22 /min [facility] Body weight 2019-03-29 19:16:00 52.98 kg [facility] BMI 2019-03-29 19:16:00 18.85 kg/m2 [facility] Systolic blood 2019-03-23 19:02:00 141 mm[Hg] Univer sity of pressure [facility] Diastolic blood 2019-03-23 19:02:00 69 mm[Hg] Unive rsity of pressure [facility] Heart rate 2019-03-23 19:02:00 80 /min [facility] Body temperature 2019-03-23 19:02:00 36.83 Geovanna [facility] Respiratory rate 2019-03-23 19:02:00 18 /min [facility] Body height 2019-03-23 19:02:00 167.6 cm [facility] Body weight 2019-03-23 19:02:00 52.527 kg [facility] BMI 2019-03-23 19:02:00 18.69 kg/m2 [facility] Systolic blood 2019-03-16 21:40:00 141 mm[Hg] Univer sity of pressure [facility] Diastolic blood 2019-03-16 21:40:00 70 mm[Hg] Unive rsity of pressure [facility] Heart rate 2019-03-16 21:40:00 110 /min [facility] Body temperature 2019-03-16 20:57:00 37.22 Geovanna [facility] Body height 2019-03-16 20:57:00 154.9 cm [facility] Body weight 2019-03-16 20:57:00 54.432 kg [facility] BMI 2019-03-16 20:57:00 22.67 kg/m2 [facility] Procedures Procedure Date / Time Performing Source Performed Clinician CONSENT/REFUSAL FOR DIAGNOSIS AND 2022-09-16 [place] [facility] [facility] 23:56:31 Unassigned, No [facility] EXTERNAL PROVIDER RECORDS 2020-12-05 [facility] sity of 05:01:00 Unassigned, No [facility] AUTHORIZATION TO RELEASE PHI TO 2020-11-20 [facility] 05:01:00 Unassigned, No [facility] URINALYSIS 2020-03-29 Maribell Foster [place] of 03:09:00 [facility] THYROID STIMULATING HORMONE 2020-03-29 Maribell Foster [facility] ersity of 03:04:00 [facility] COMP. METABOLIC PANEL (45740) 2020-03-29 Maribell Foster Un iversity of 03:04:00 [facility] CBC WITH DIFF 2020-03-29 Maribell Foster [place] of 03:04:00 [facility] GLYCOSYLATED HEMOGLOBIN (A1C) 2020-03-29 Maribell Foster Un iversity of 03:04:00 [facility] ECHO ROUTINE W/DOPPLER COLOR 2020-02-22 Meera Cantu Uni versity of 20:06:52 [facility] [place] TROPONIN I 2020-02-22 Pepe [facility] of 12:39:00 [facility] [place] TROPONIN I 2020-02-22 Pe[facility] of 05:09:00 [facility] [place] IRON PANEL 2020-02-22 Pepe [facility] of 05:09:00 [facility] [place] GLYCOSYLATED HEMOGLOBIN (A1C) 2020-02-22 Pepe Meera Un iversity of 05:09:00 [facility] [place] TROPONIN I 2020-02-22 Pepe [facility] of 05:08:00 [facility] [place] BASIC METABOLIC PANEL (NA, K, CL, 2020-02-22 [facility] of CO2, GLUCOSE, BUN, CREATININE, CA) 05:08:00 [facility] [place] LIPID PANEL (91186)(TOTAL 2020-02-22 Matilde Roman [facility] malou of CHOLESTEROL, TRIGLYCERIDES, HDL) 05:08:00 [facility] CBC WITH DIFF 2020-02-22 Pepe [facility] of 05:08:00 [facility] [place] VITAMIN B12, LEVEL 2020-02-22 Matilde Roman [place] of 05:05:00 [facility] VITAMIN D, 25-OH 2020-02-22 Jessie [facility] of 05:05:00 [facility] PROCALCITONIN 2020-02-22 Jessie [facility] of 05:05:00 [facility] FECAL LEUKOCYTES 2020-02-22 Jessie [facility] of 04:46:00 [facility] URINALYSIS 2020-02-22 Pepe [facility] of 04:34:00 [facility] [place] LEGIONELLA URINARY ANTIGEN TST 2020-02-22 Pe[facility] niversity of 04:34:00 [facility] [place] PNEUMOCOCCAL ANTIGEN 2020-02-22 Pepe [facility] of 04:33:00 [facility] [place] CLOSTRIDIUM DIFFICILE TOXIN 2020-02-22 Pe[facility] ersity of 03:15:00 [facility] [place] XR ABDOMEN 2 VW 2020-02-22 Pepe [facility] of 01:50:00 [facility] [place] EKG-12 LEAD 2020-02-21 [facility] of 18:10:08 Unassigned, No [facility] EKG-12 LEAD 2020-02-21 Titi Hahn [place] of 18:02:02 [facility] LACTIC ACID WHOLE BLOOD 2020-02-21 Titi Hahn [facility] ty of 17:01:00 [facility] PHOSPHORUS 2020-02-21 [facility] 17:00:00 [facility] LIPASE 2020-02-21 Titi Hahn [place] of 17:00:00 [facility] MAGNESIUM 2020-02-21 Jessie [facility] of 17:00:00 [facility] FERRITIN SERUM 2020-02-21 Pepe [facility] of 17:00:00 [facility] TROPONIN I 2020-02-21 Titi Hahn [place] of 17:00:00 [facility] COMP. METABOLIC PANEL (82265) 2020-02-21 Titi Hahn iversity of 17:00:00 [facility] LIPID PANEL (44379)(TOTAL 2020-02-21 Meera Cantu [facility] sity of CHOLESTEROL, TRIGLYCERIDES, HDL) 17:00:00 [facility] [place] XR CHEST 1 VW 2020-02-21 Titi Hahn of 15:31:44 [facility] COVID-19 (ID NOW RAPID TESTING) 2020-02-21 Hahn, [facility] of 15:23:00 [facility] CBC WITH DIFF 2020-02-21 [place] [facility] of 15:19:00 [facility] CONSENT/REFUSAL FOR DIAGNOSIS AND 2020-02-21 [facility] 14:24:00 Unassigned, No [facility] XR CHEST 1 VW 2020-02-14 [facility] of 22:30:31 [facility] LACTIC ACID WHOLE BLOOD 2020-02-14 [place] of 22:23:00 [facility] URINALYSIS 2020-02-14 [facility] of 21:49:00 [facility] UNILATERAL VENOUS DUPLEX LOWER 2020-02-14 [place] [facility] niversity of EXTREMITY BY VASCULAR LAB 21:23:18 [facility] LIPASE 2020-02-14 Hahn, [facility] of 20:45:00 [facility] TROPONIN I 2020-02-14 Hahn, [facility] of 20:45:00 [facility] THYROID STIMULATING HORMONE 2020-02-14 [facility] ersity of 20:45:00 [facility] COMP. METABOLIC PANEL (81455) 2020-02-14 Titi Hahn iversity of 20:45:00 [facility] CBC WITH DIFF 2020-02-14 Hahn, [facility] of 20:45:00 [facility] PROTHROMBIN TIME / INR 2020-02-14 [facility] 20:45[facility]00 [facility] D-DIMER 2020-02-14 [facility] of 20:45:00 [facility] ACTIVATED PARTIAL THRMPLAS NAVDEEP 2020-02-14 Titi Hahn niversity of 20:45:00 [facility] EKG-12 LEAD 2020-02-14 Hahn, [facility] of 20:43:52 [facility] EKG-12 LEAD 2020-02-14 [place] [facility] of 20:13:40 [facility] CT ABDOMEN PELVIS W CONTRAST 2020-01-03 Sb Canela Uni versity of 18:56:39 [facility] LIPASE 2020-01-03 Sb Canela of 17:28:00 [facility] HEPATIC FUNCTION PANEL (80445) 2020-01-03 Sb Canela niversity of (ALB,T.PRO,BILI 17:28:00 [facility] T,BU/BC,ALT,AST,ALK [facility] BASIC METABOLIC PANEL (NA, K, CL, 2020-01-03 Merritt Canela [facility] of CO2, GLUCOSE, BUN, CREATININE, CA) 17:28:00 [facility] CBC WITH DIFFERENTIAL 2020-01-03 Sb Canela [place] of 17:28:00 [facility] PROTHROMBIN TIME / INR 2020-01-03 Sb Canelait y of 17:28:00 [facility] ACTIVATED PARTIAL THRMPLAS NAVDEEP 2020-01-03 Sb Canela U niversity of 17:28:00 [facility] URINALYSIS 2020-01-03 Sb Canela [place] of 17:28: [facility] LACTIC ACID WHOLE BLOOD 2020-01-03 [facility] of 17:28: [facility] NOTICE OF PRIVACY PRACTICES 2020-01-03 [facility] ersity of 16:34:44 Unassigned, No [facility] CONSENT/REFUSAL FOR DIAGNOSIS AND 2020-01-03 [facility] TREATMENT 16:34:21 Unassigned, No [facility] BASIC METABOLIC PANEL (NA, K, CL, 2019-12-06 Navid De Los Santos [facility] of CO2, GLUCOSE, BUN, CREATININE, CA) 07:28:00 [facility] CBC WITH DIFFERENTIAL 2019-12-06 [facility] 07:28:00 [facility] FL BARIUM SWALLOW ESOPHAGUS 2019-12-05 Emily De Los Santos [facility] ersity of 20:07:00 [facility] PHOSPHORUS 2019-12-05 Magali [facility] of 15:42:00 [facility] MAGNESIUM 2019-12-05 Magali [facility] of 15:42:00 [facility] BASIC METABOLIC PANEL (NA, K, CL, 2019-12-05 Navid [facility] of CO2, GLUCOSE, BUN, CREATININE, CA) 15:42:00 [facility] CBC WITH DIFFERENTIAL 2019-12-05 Magali Emily [place] of 15:42:00 [facility] LAPAROSCOPIC GLORY FUNDOPLICATION 2019-12-05 Jerald Sims [facility] of 11:50:00 [facility] ESOPHAGOGASTRODUODENOSCOPY 2019-12-05 Bobby Sims Uni versity of 11:50:00 [facility] CONSENT/REFUSAL FOR DIAGNOSIS AND 2019-12-05 Doctor University of TREATMENT 10:43:31 Unassigned, No [facility] ASSIGNMENT OF BENEFITS 2019-12-05 Doctor Universit y of 10:42:54 Unassigned, No [facility] HOME HEALTH - OTHER 2019-09-01 [facility] o f 06:01:00 Unassigned, No [facility] HOME HEALTH - OTHER 2019-08-24 [facility] o f 06:01:00 Unassigned, No [facility] HOME HEALTH - OTHER 2019-08-11 [facility] o f 06:01:00 Unassigned, No [facility] HOME HEALTH - OTHER 2019-08-03 [facility] o f 06:01:00 Unassigned, No [facility] HOME HEALTH - OTHER 2019-07-18 [facility] o f 06:01:00 Unassigned, No [facility] HOME HEALTH [id number] 2019-07-12 Doctor [place] of 06:01:00 Unassigned, No [facility] HOME HEALTH - OTHER 2019-07-03 [facility] o f 06:01:00 Unassigned, No [facility] EXTERNAL PROVIDER RECORDS 2019-04-02 Doctor Marian sity of 05:01:00 Unassigned, No [facility] ASSIGNMENT OF BENEFITS 2019-03-16 Doctor Universit y of 20:47:08 Unassigned, No [facility] INSURANCE CORRESPONDENCE 2019-03-08 Doctor [facility] ity of 05:01:00 Unassigned, No [facility] Encounters Start End Encounter Admission Attending Care Care Encounter Source Date/Time Date/Time Type Type Clinicians Facility Department ID 2021-05-23 Emergency [facility] [id number] Univers 15:52:43 ity of [facility] 2021-05-23 Emergency [facility] [id number] Univers 09:29:50 ity of [facility] 2021-05-23 Emergency [facility] [id number] Univers 08:14:23 ity of [facility] 2021-05-22 Inpatient R BETHANY [facility] AYLIN [id number] Univers 13:04:05 BOBBY ity of [facility] 2022-09-16 2022-09-16 Emergency X FLORY [facility] ERT [id number] Univers 18:36:00 22:11:00 MEERA ity of [facility] 2022-09-16 2022-09-16 Nghia Ruth [facility] [id number] Univers 18:36:00 22:11:00 Meera Cotton KITTY 350.1.13.10 i [place] [phone] [facility] [address] 2022-06-09 2022-06-09 [facility] [id number] Univers 15:00:00 15:00:00 CANDIDA blank of [facility] 2020-12-30 2020-12-30 [facility] [id number] Univers 15:45:00 15:45:00 WONDIFUL ity o f [facility] 2020-12-05 2020-12-05 Orders Doctor PHI 1.2.840.114 [id number] Univers 00:00:00 00:00:00 Only Unassigned, EVELYNE 350.1.13.10 ity of [place] [facility] 4.2.7.2.686 Varinder as [phone] [address] 2020-11-20 2020-11-20 Office [facility] 1.2.840.114 [id number] Univers 10:48:51 11:42:30 Visit Sharla Pena 350.1.13.10 ity [facility] [place].2.[address] [place] [facility] [phone] Ar dic[address] 2020-11-20 2020-11-20 Outpatient [facility] [id number] Univers 10:30:00 10:30:00 SHARLA parson o f [facility] 2020-11-20 2020-11-20 Orders Doctor PHI 1.2.840.114 [id number] Univers 00:00:00 00:00:00 Only Unassigned, EVELYNE 350.1.13.10 ity of [place] [facility] 4.2.7.2.686 Varinder as [phone] [address] 2020-11-19 2020-11-19 Telephone [facility] 1.2.840.114 [id number] Univers 00:00:00 00:00:00 Wondiful A Health 350.1.13.10 ity of [place] 4.2.7.2.686 Varinder as Professio [phone] Ar dical [facility] [address] Office [facility] One 2020-05-30 2020-05-30 Outpatient Phillip GARDINER [facility] [id number] Univers 14:00:00 14:00:00 WONDIFUL ity o f [facility] 2020-04-26 2020-04-26 Outpatient Phillip [facility] [id number] Univers 11:00:00 11:00:00 WONDIFUL ity o f [facility] 2020-03-28 2020-03-29 Emergency [facility] [id number] 20:48:00 00:17:00 Maribell Pena 350.1.13.10 [place] 4.2.7.2.686 [place] [id number] [id number] 2020-03-28 2020-03-29 Emergency [facility] [id number] Univers 20:48:00 00:17:00 Maribell Pena 350.1.13.10 i ty of [place] [id number] [facility] [address] 2020-02-23 2020-02-23 Transition Abelino Conteh 1.2.840.114 [id number] 00:00:00 00:00:00 of Care Demetrio A Galeas 350.1.13.10 [place] 4.2.7.2.686 [id number] [id number] 2020-02-23 2020-02-23 Transition Abelino Conteh 1.2.840.114 [id number] Univers 00:00:00 00:00:00 of Care Demetrio A Galeas 350.1.13.10 ity of [place].7.2.[place] [phone] [facility] 403 [address] 2020-02-21 2020-02-22 Emergency Titi Hahn [facility] 1.2.840. 114 [id number] 09:30:54 20:01:00 Prashanth Vo 350.1.13.10 [place] 4.2.7.2.686 [place] [phone] [facility] 2020-02-21 2020-02-22 Emergency Titi Hahn [facility] 1.2.840. 114 [id number] Univers 09:30:54 20:01:00 Prashanth oV 350.1.13.10 ity of [place] 4.2.7.2.686 [facility] [phone] [address] 2020-02-21 2020-02-21 Telemedici [facility] 1.2.840.114 [id number] Univers 07:44:24 10:48:34 ne Visit Jeffrynoriprince Jamshid Pena 350.1.13.10 ity of [place] 4.2.7.2.686 [facility] Professio [phone] [address] 2020-02-21 2020-02-21 Telemedici [facility] 1.2.840.114 [id number] 07:44:24 10:48:34 ne Visit Jeffrymalu Jamshid Kitty 350.1.13.10 [place] 4.2.7.2.686 Professio [phone] [address] 2020-02-21 2020-02-21 Outpatient R ZULEYKA [facility] [id number] Univers 08:00:00 08:00:00 WONDIFUL ity o f [facility] 2020-02-14 2020-02-14 Emergency Richard, [facility] 1.2.723.010 [id number] Univers 15:20:24 19:50:00 Rachelle Pena 350.1.13.10 i ty of [place] 4.2.7.2.686 [facility] [phone] [address] 2020-02-14 2020-02-14 Urgent Provider, Ar Urgent Care [facility] 1.2.840.114 [id number] Univers 14:13:11 15:38:31 Care Cuba Gardiner 350.1.13.1 0 ity of [place] 4.2.7.2.686 Varinder as Professio [phone] [address] Office Building One 2020-02-14 2020-02-14 Deliverer Food 2, Adc Lab [facility] 1.2.840.114 [id number] Univers 13:39:57 13:54:57 Visit Cuba Gardiner [place] 350.1.13. 10 [place] of [place] Profess[place] [phone] Ar dical nal [address] [facility] 2020-02-14 2020-02-14 Outpatient R [facility] [id number] Univers 13:30:00 13:30:00 ity of [facility] 2020-02-14 2020-02-14 Case Zuleyka [facility] 1.2.840.114 [id number] Univers 00:00:00 00:00:00 Management Wondiful A [place] 350.1.13.10 it[place] of [place].2.[place] Professio [phone] Ar dical nal [address] [facility] 2020-02-08 2020-02-08 Telemedici Zuleyka [facility] 1.2.840.114 [id number] Univers 08:02:08 10:54:58 ne Visit Cuba A [place] 350.1.13.10 ity of [place]2.7.2.[place] Professio [phone] Ar dical nal [address] [facility] 2020-02-08 2020-02-08 Outpatient R ZULEYKA [facility] [id number] Univers 10:15:00 10:15:00 WONDIFUL ity o f [facility] 2020-02-04 2020-02-04 Telephone oZ Easley .2.840.114 [id number] Univers 00:00:00 00:00:00 EVELYNE 350.1.13.10 it y of HOSPITAL 4.2.7.2.686 Varinder as [phone] [address] 2020-01-30 2020-01-30 Outpatient R ZULEYKA [facility] [id number] Univers 16:15:00 16:15:00 WONDIFUL ity o f [facility] 2020-01-29 2020-01-29 Urgent Pob1, Acute Care Clinic [facility] 1. 2.840.114 [id number] Univers 11:01:47 11:21:47 Care [facility] 350.1.13.10 ity of [place] 4.2.7.2.686 Varinder as Professio [phone] Ar dicoh nal [address] Office [address] One 2020-01-29 2020-01-29 Outpatient R [facility] [id number] Univers 11:20:00 11:20:00 ity of [facility] 2020-01-03 2020-01-03 Emergency X [facility] ERT [id number] Univers 11:46:19 16:35:00 SB ity of [facility] 2020-01-03 2020-01-03 Emergency [facility] 1.2.984.273 [id number] Univers 11:46:19 16:35:00 Sb [place] 350.1.13.10 i ty of [place] 4.2.7.2.686 [facility] [phone] [facility] [address] 2020-01-03 2020-01-03 Orders Doctor PHI 1.2.840.114 [id number] Univers 00:00:00 00:00:00 Only Unassigned, EVELYNE 350.1.13.10 [facility] 4.2.7.2.686 Varinder as [phone] [facility] [address] 2019-12-25 2019-12-25 Outpatient [facility] [id number] Univers 13:00:00 13:00:00 WONDIFUL ity o f [facility] 2019-12-22 2019-12-22 Outpatient [facility] [id number] Univers 13:45:00 13:45:00 BOBBY ity of [facility] 2019-12-14 2019-12-14 Telephone [facility] 1.2.840.114 [id number] Univers 00:00:00 00:00:00 Wondiful A Health 350.1.13.10 ity of [place] 4.2.7.2.686 Varinder as Professio [phone] Ar dicoh nal [address] [place] [address] Office Building One 2019-12-12 2019-12-12 Telephone [facility] 1.2.840.114 [id number] Univers 00:00:00 00:00:00 Wondiful A [place] 350.1.13.10 ity of [place].7.2.[place] Profess[place] [phone] Ar dical nal [address] 2019-12-11 2019-12-11 Transition Abelino Conteh 1.2.840.114 [id number] Univers 00:00:00 00:00:00 of Care Demetrio Maiery 350.1.13.10 ity of [place] 4.2.7.2.686 [place] [phone] [facility] [address] 2019-12-05 2019-12-08 Inpatient R [facility] SCT [id number] Univers 05:41:49 15:24:00 BOBBY ity of [facility] 2019-12-05 2019-12-08 Hospital Britta Sims [id number] [id number] Univers 05:41:49 15:24:00 Encounter Bobby Rodarte [place] 350.1.13.10 ity of [facility] 4.2.7.2.686 Varinder as [phone] [facility] [address] 2019-12-04 2019-12-04 Laboratory Only, Adc Test [facility] 1.2.840. 114 [id number] Univers 13:54:20 14:00:22 Only Bobby Sims [place] 350.1.13.10 ity of [place].7.2.[place] Professio [phone] [facility] [address] [facility] 2019-12-04 2019-12-04 Outpatient R BETHANY [facility] [id number] Univers 13:45:00 13:45:00 BOBBY ity of [facility] 2019-11-27 2019-11-27 Telephone Zuleyka [facility] 1.2.840.114 [id number] Univers 00:00:00 00:00:00 Wondiful A Health 350.1.13.10 ity of [place] 4.2.7.2.686 Varinder as Professio [phone] Ar dical nal [address] Office [address] One 2019-11-21 2019-11-21 Prep For NIGHAT Persaud 1.2.840.114 [id number] Univers 00:00:00 00:00:00 Surgery Kalyn Y HEALTH 350.1.13.10 i ty of CL[place]2.7.2.[place] [phone] [address] 2019-11-21 2019-11-21 Case LUIS A PersaudIT 1.2.840.114 [id number] Univers 00:00:00 00:00:00 Management Kalyn Y HEALTH 350.1.13.10 ity of CL[place]ICS [place]2.7.2.[place] [phone] [address] 2019-11-21 2019-11-21 Case LUIS A PersaudIT 1.2.840.114 [id number] Univers 00:00:00 00:00:00 Management Kalyn Y HEALTH 350.1.13.10 ity of CLINICS 4[place]2.7.2.[place] [phone] [address] 2019-11-13 2019-11-13 Telephone Zuleyka [facility] 1.2.840.114 [id number] Univers 00:00:00 00:00:00 Wondiful A Health 350.1.13.10 ity of [place] 4.2.7.2.686 Varinder as Professio [phone] Ar dical [facility] [address] Office [address] One 2019-10-05 2019-10-05 Telephone LUIS A Persaud 1.2.840.114 [id number] Univers 00:00:00 00:00:00 Kalyn Y HEALTH 350.1.13.10 i ty of CLINICS 4[place]2.7.2.[place] [id number] [address] 2019-09-27 2019-09-27 Case LUIS A PersaudIT 1.2.840.114 [id number] Univers 00:00:00 00:00:00 Management Kalyn Y HEALTH 350.1.13.10 ity of CLINICS 4[place]2.[place].2.[place] [id number] [address] 2019-09-22 2019-09-22 Prep For LUIS A Persaud 1.2.840.114 [id number] Univers 00:00:00 00:00:00 Surgery Kalyn Y HEALTH 350.1.13.10 i ty of CLINICS 4[place]2.7.2.[place] [id number] [address] 2019-09-20 2019-09-20 Office Bethany [facility] 1.2.840.114 [id number] Univers 14:19:19 14:46:30 Visit Bobby Pena 350.1.13.10 [place]y of [place].7.2.[place] Professio [phone] [facility] [address] [facility] 2019-09-20 2019-09-20 Outpatient R BETHANY [facility] [id number] Univers 14:15:00 14:15:00 BOBBY ity of [facility] 2019-09-01 2019-09-01 Orders Doctor PHI 1.2.840.114 [id number] Univers 00:00:00 00:00:00 Only Unassigned, EVELYNE 350.1.13.10 ity of [place] [facility] 4.2.7.2.686 Varinder as [phone] [address] 2019-08-31 2019-08-31 Office [facility] 1.2.840.114 [id number] Univers 15:53:30 16:20:15 Visit Cuba Breen Skyera 350.1.13.10 ity of [place] 4.2.7.2.686 Varinder as Professio [phone] [facility] [address] Office [address] One 2019-08-24 2019-08-24 Orders Doctor YIP 1.2.840.114 [id number] Univers 00:00:00 00:00:00 Only Unassigned, EVELYNE 350.1.13.10 ity of [place] [facility] 4.2.7.2.686 Varinder as [phone] [address] 2019-08-11 2019-08-11 Orders Doctor YIP 1.2.840.114 [id number] Univers 00:00:00 00:00:00 Only Unassigned, EVELYNE 350.1.13.10 ity of [place] [facility] 4.2.7.2.686 Varinder as [phone] [address] 2019-08-03 2019-08-03 Orders Doctor PHI Deluna.2.840.114 [id number] Univers 00:00:00 00:00:00 Only Unassigned, EVELYNE 350.1.13.10 ity of [place] [facility] 4.2.7.2.686 Varinder as [phone] [address] 2019-07-18 2019-07-18 Orders Doctor PHI 1.2.840.114 [id number] Univers 00:00:00 00:00:00 Only Unassigned, EVELYNE 350.1.13.10 ity of [place] [facility] 4.2.7.2.686 Varinder as [phone] [address] 2019-07-14 2019-07-14 Out[facility] [id number] Univers 15:23:29 19:14:00 WONDIFUL ity o f [facility] 2019-07-12 2019-07-12 Orders Doctor PHI 1.2.840.114 [id number] Univers 00:00:00 00:00:00 Only Unassigned, EVELYNE 350.1.13.10 ity of [place] [facility] 4.2.7.2.686 Varinder as [phone] [address] 2019-07-03 2019-07-03 Orders Doctor PHI 1.2.840.114 [id number] Univers 00:00:00 00:00:00 Only Unassigned, EVELYNE 350.1.13.10 ity of [place] [facility] 4.2.7.2.686 Varinder as [phone] [address] 2019-04-03 2019-04-03 Telephone [facility] 1.2.840.114 [id number] [facility] 00:00:00 00:00:00 [facility] [id number] ity of [place] [id number] Varinder as Professio [phone] [facility] [address] [facility] 2019-04-02 2019-04-02 Orders Doctor PHI 1.2.840.114 [id number] [employer] 00:00:00 00:00:00 Only Unassigned, EVELYNE [id number] ity of [facility] [id number] Varinder as [phone] [address] 2019-03-29 2019-03-29 Office Bethany MESILLA [facility] 1.2.840.114 [id number] [facility] 14:03:52 14:50:17 Visit Bobby Pena 350.1.13.10 [place] [phone] Ar [place] er[place] [address] [facility] 2019-03-24 2019-03-24 Telephone Zuleyka WVMOSES 1.2.840.114 [id number] [facility] 00:00:00 00:00:00 [facility] 350.1.13.10 ity of [place] 4.2.7.2.686 Varinder as Professio [phone] [facility] [address] [facility] 2019-03-23 2019-03-23 Office Hunter [facility] 1.2.055.159 [id number] [facility] 13:49:44 15:19:34 Visit Ping Pena 350.1.13.10 i [place] [phone] [facility] [address] [facility] 2019-03-23 2019-03-23 [facility], Adc Fam Pob I [facility] 1.2. 840.114 [id number] [facility] 13:25:06 13:41:58 Visit [facility] [facility] 350.1.13.1 0 ity of [place] 4.2.7.2.686 Varinder as Professio [phone] [facility] [address] [facility] 2019-03-16 2019-03-16 Office MADAI Gardiner 1.2.840.114 [id number] [facility] 15:47:43 16:37:58 Visit [place] [facility] 350.1.13.10 ity of [place] 4.2.7.2.686 Varinder as Professio [phone] [address] Office [facility] 2019-03-16 2019-03-16 Orders Doctor PHI 1.2.840.114 [id number] [facility] 00:00:00 00:00:00 Only Unassigned, EVELYNE 350.1.13.10 ity of [place] [facility] 4.2.7.2.686 Varinder as [phone] [address] 2019-03-15 2019-03-15 Telephone Zuleyka WVMOSES 1.2.840.114 [id number] [facility] 00:00:00 00:00:00 [facility] 350.1.13.10 ity of [place] 4.2.7.2.686 Varinder as Jennifer [phone] Ar dical nal [address] One 2019-03-08 2019-03-08 Orders Doctor PHI 1.2.840.114 [id number] [facility] 00:00:00 00:00:00 Only Unassigned, EVELYNE 350.1.13.10 ity of [place] [facility] 4.2.7.2.686 Varinder as [phone] [address] Results Test Description Test Time Test Comments Results Result Comments Source GLYCOSYLATED HEMOGLOBIN (A1C) 2020-03-29 04:32:00 Test Item Value Reference Range Interpretation Comme nts HGB A1C (test code = 4548-4) 5.4 % 4-6 KIM (test code = KIM) %A1C (NGSP) Interpretation (ADA)4.8-5.6 ? ? Normal or (Non-Diabetic Range)5.7-6.4 ? ? Increased Risk (Pre-Diabetic)>6.5 ?Diabetes Indicated Lab Interpretation (test code = Normal 11242-7) [facility] [id number] 04:04:00 Test Item Value Reference Range Interpretation Comments TSH (test code = See_Comment [Automated message] 4370280724) The system legalPAD generated this result transmitted ref erence range: 0.45 - 4 .70 mIU/L. The refe rence range was not u sed to interpret this result as normal/abnor mal. Lab Interpretation (test Normal code = 05496-1) [facility]2020-[facility]-04 03:38:00 Test Item Value Reference Range Interpretation Comments APPEARANCE (test code = Clear Clear 6257568416) COLOR (test code = Yellow Yellow 5235993272) PH (test code = 4.8-8.0 2714799119) SP GRAVITY (test code = 1.003-1.030 1573268439) GLU U QUAL (test code = 50 mg/dL Normal A 9777492973) BLOOD (test code = 1+ Negative A 3335641782) KETONES (test code = Negative Negative 8528495833) PROTEIN (test code = Negative Negative 2887-8) UROBILIN (test code = Normal Normal 6418882023) BILIRUBIN (test code = Negative Negative 4678683077) NITRITE (test code = Negative Negative 3550896264) LEUK NASRIN (test code = Negative Negative 7919066510) RBC/HPF (test code = See_Comment [Autom ated message] 0761168589) The system legalPAD generated this result transmitted ref erence range: 0 - 3 HP F. The reference range was not used to int erpret this result as normal/abnormal . WBC/HPF (test code = See_Comment [Autom ated message] 1135918310) The system legalPAD generated this result transmitted ref erence range: 0 - 5 HP F. The reference range was not used to int erpret this result as normal/abnormal . BACTERIA (test code = Few Negative A 8218731768) MUCOUS (test code = Slight Negative LPF A 4669338621) SQ EPITH (test code = HPF 0552618081) HYAL CAST (test code = See_Comment H [Aut omated message] 5685460800) The system legalPAD generated this result transmitted ref erence range: <=2 LPF. The reference range was not used to int erpret this result as normal/abnormal . Lab Interpretation (test Abnormal code = 53411-7) [facility]. METABOLIC PANEL (83956)2020-03-29 03:34:00 Test Item Value Reference Range Interpretation Comments NA (test code = 141 mmol/L 135-145 2559681297) K (test code = 3.9 mmol/L 3.5-5 8105823374) CL (test code = 111 mmol/L 98-108 H 6939954315) CO2 TOTAL (test code = 21 mmol/L 23-31 L 3064367560) AGAP (test code = 2-16 3078595433) BUN (test code = 18 mg/dL 7-23 2797337836) GLUCOSE (test code = 209 mg/dL 70-110 H 3459149211) CREATININE (test code = 1.03 mg/dL 0.5-1.04 1189203222) TOTAL BILI (test code = 0.7 mg/dL 0.1-1.9 9469565946) CALCIUM (test code = 9.1 mg/dL 8.6-10.6 0902695487) T PROTEIN (test code = 6.6 g/dL 6.3-8.2 4076578133) ALBUMIN (test code = 4.0 g/dL 3.5-5 1566968444) ALK PHOS (test code = 111 U/L 34-122 1151847837) ALTv (test code = 15 U/L 5-35 1742-6) AST(SGOT) (test code = 27 U/L 13-40 6398999284) eGFR Calculation mL/min/1.73m2 (Non-) (test code = 3155126235) eGFR Calculation mL/min/1.73m2 () (test code = 8443639350) KIM (test code = KIM) Association of [...] tests). Lab Interpretation Abnormal (test code = 74708-9) [facility] WITH [id number] 03:19:00 Test Item Value Reference Range Interpretation [...] RDW-SD (test code = 45.0 fL 39-49.9 72801-8) RDW-CV (test code = 13.1 % 12-15.5 788-0) PLT (test code = See_Comment [Automated 777-3) message] The sy stem which generated this result transmitted reference range : 166 - 358 10*3/ ?L. The reference r lucas was not used to interpret this result as normal/abnormal . MPV (test code = 10.0 fL 9.5-12.9 71076-7) NRBC/100 WBC (test See_Comment [Automat ed code = 4835841496) message] The system which generated this result transmitted reference range : 0.0 - 10.0 /100 WBCs. The refer ence range was not u sed to interpret th is result as normal/abnormal . NRBC x10^3 (test code <0.01 See_Comment [Auto mated = 3618603162) message] The s ystem which generated this result transmitted reference range : 10*3/?L. The reference range was not used to interpret this result as normal/abnormal . GRAN MAT (NEUT) % 80.1 % (test code = 770-8) IMM GRAN % (test code 0.40 % = 7143670405) LYMPH % (test code = 13.8 % 736-9) MONO % (test code = 5.2 % 5905-5) EOS % (test code = 0.2 % 713-8) BASO % (test code = 0.3 % 706-2) GRAN MAT x10^3(ANC) 9.51 10*3/uL 1.88-7.09 H (test code = 5279068603) IMM GRAN x10^3 (test 0.05 10*3/uL 0-0.06 code = 8464263754) LYMPH x10^3 (test code 1.64 10*3/uL 1.32-3.29 = 731-0) MONO x10^3 (test code 0.62 10*3/uL 0.33-0.92 = 742-7) EOS x10^3 (test code = <0.03 0.03-0.39 L 711-2) BASO x10^3 (test code 0.04 10*3/uL 0.01-0.07 = 704-7) Lab Interpretation Abnormal (test code = 52787-0) [facility]PNEUMOCOCCAL [id number] 18:02:00 Test Item Value Reference Range Interpretation Comments S. pneumoniae antigen (test code = Negative Negative 7855555486) Lab Interpretation (test code = Normal 59749-4) [facility] CenterProcalcitonin2020-07-30 17:00:00 Test Item Value Reference Range Interpretation Comments Procalcitonin (test 0.04 ng/mL <0.07 code = 4286694020) KIM (test code = KIM) INTERPRETATION OF [...] lung abscess/empyema. For further information please refer to:[email or web address] Lab Interpretation Normal (test code = 87384-4) [facility] CenterFECAL [id number] 16:39:00 Test Item Value Reference Range Interpretation Comments Fecal Leukocytes (test code = Negative Negative 2015345423) Lab Interpretation (test code = Normal 67616-0) [facility] CenterVITAMIN B12, [id number] 16:37:00 Test Item Value Reference Range Interpretation Comments VIT B12 (test code = 247 pg/mL 240-930 4849981526) KIM (test code = KIM) Biotin has been reported to cause a positive bias, interpret results relative to patient's use of biotin. Lab Interpretation (test Normal code = 49908-8) [facility] CenterVITAMIN D, [id number] 16:15:00 Test Item Value Reference Range Interpretation Comments VIT D 25OH (test code = <13 25-80 L 43381-2) KIM (test code = KIM) Deficiency: <20 ng/mLInsufficiency: 20-24 ng/mLOptimal: 25-80 ng/mL Lab Interpretation (test Abnormal code = 47694-4) [facility] CenterLEGIONELLA URINARY ANTIGEN [id number] 15:57:00 Test Item Value Reference Range Interpretation Comments Legionella Urinary Negative Negative Antigen (test code = 2345437158) KIM (test code = KIM) Negative for [...] test. Lab Interpretation (test Normal code = 25267-2) [facility] CenterTroponin [id number] 14:53:00 Test Item Value Reference Range Interpretation Comments TROPONIN I (test 0.029 ng/mL See_Comment [Automated code = 6891734948) message] The system which generated this result [...] ? Lab Interpretation Normal (test code = 76148-3) [facility] CenterXR ABDOMEN 2 [id number] 12:54:39HISTORY: Abdominal pain. FINDINGS: AP supine and upright views of the abdomen showed unremarkableintestinal gas pattern. Small amount of air and fecal material notedthroughout the large bowel. Cholecystectomy clips are seen in the rightupper abdomen. Upright view showed no free air.A short radiopaque catheter type device noted projected over the lateralleft mid abdomen. No organomegaly. No aggressivebone lesions. CONCLUSIONS: No acute findings.. [facility], Radiant Results Inft User - 02/22/2020 7:55 [...] organomegaly. No aggressive bone lesions.CONCLUSIONS: No acute findings..[facility] Glycosylated Hemoglobin (A1C)2020-02-22 07:44:00 Test Item Value Reference Range Interpretation Comments HGB A1C (test code = 5.4 % 4-6 4548-4) KIM (test code = KIM) %A1C (NGSP) Interpretation (ADA)4.8-5.6 ? ? Normal or (Non-Diabetic Range)5.7-6.4 ? ? Increased Risk (Pre-Diabetic)>6.5 ?Diabetes Indicated Lab Interpretation Normal (test code = 69021-5) [facility] CenterLIPID PANEL (91790)(TOTAL CHOLESTEROL, TRIGLYCERIDES, HDL)2020-02-22 07:39:00 Test Item Value Reference Range Interpretation Comments CHOL (test code = 196 mg/dL 120-200 8055010334) HDL (test code = 49 mg/dL >50 L 9599566828) HDLC RATIO (test code = See_Comment [Au tomated message] 2954691774) The system legalPAD generated this result transmit leann reference range : <=4.5. The refe rence range was not u sed to interpret th is result as normal/abnormal . TRIG (test code = 121 mg/dL 30-170 3520456409) LDL CHOL (test code = 123 mg/dL See_Comment [Auto mated message] 42436-5) The system legalPAD generated this result transmit leann reference range : <=160. The refe rence range was not u sed to interpret th is result as normal/abnormal . VLDL (test code = 24 mg/dL 5-60 4724059902) Lab Interpretation (test Abnormal code = 92815-2) [facility] CenterIRON [id number] 07:37:00 Test Item Value Reference Range Interpretation Comments IRON (test code = 0932246412) 50 ug/dL 50-160 TIBC (test code = 3828051984) 243 ug/dL 250-410 L % FE SAT (test code = 1811813503) 21 % 20-50 Lab Interpretation (test code = Abnormal 17798-6) [facility] CenterCLOSTRIDIUM DIFFICILE [id number] 06:39:00 Test Item Value Reference Range Interpretation Comments Clostridioides (Clostridium) Negative Negative difficile (test code = 31929-7) Lab Interpretation (test code = Normal 20244-3) [facility] CenterBasi Metabolic Panel (NA, K, CL, CO2, GLUCOSE, BUN, CREATININE, CA)2020-02-22 06:26:00 Test Item Value Reference Range Interpretation Comments NA (test code = 135 mmol/L 135-145 9120130277) K (test code = 4.4 mmol/L 3.5-5 5331380815) CL (test code = 106 mmol/L 98-108 6274908658) CO2 TOTAL (test code = 24 mmol/L 23-31 2403312335) AGAP (test code = 2-16 3218432094) BUN (test code = 23 mg/dL 7-23 8917634973) GLUCOSE (test code = 119 mg/dL 70-110 H 5384161952) CREATININE (test code = 0.90 mg/dL 0.5-1.04 2835513487) CALCIUM (test code = 8.7 mg/dL 8.6-10.6 2202224623) eGFR Calculation mL/min/1.73m2 (Non-) (test code = 2920327971) eGFR Calculation mL/min/1.73m2 () (test code = 5774386651) KIM (test code = KIM) Association of [...] tests). Lab Interpretation Abnormal (test code = 29113-1) [facility] [id number] 06:24:00 Test Item Value Reference Range Interpretation Comments TROPONIN I (test 0.033 ng/mL See_Comment [Automated code = 4482766940) message] The system which generated this result [...] ? Lab Interpretation Normal (test code = 58298-2) [facility] [id number] 06:23:00 Test Item Value Reference Range Interpretation Comments TROPONIN I (test 0.032 ng/mL See_Comment [Automated code = 6673207518) message] The system which generated this result [...] ? Lab Interpretation Normal (test code = 85236-0) [facility] CenterURINALYSIS2020-07-30 05:49:00 Test Item Value Reference Range Interpretation Comments APPEARANCE (test code = Clear Clear 5195206642) COLOR (test code = Straw Yellow A 2982776054) PH (test code = 4.8-8.0 2134031690) SP GRAVITY (test code = 1.003-1.030 9116688866) GLU U QUAL (test code = Normal Normal 4508405972) BLOOD (test code = 1+ Negative A 8294820814) KETONES (test code = Negative Negative 7495531971) PROTEIN (test code = Negative Negative 2887-8) UROBILIN (test code = Normal Normal 8994247523) BILIRUBIN (test code = Negative Negative 5894285022) NITRITE (test code = Negative Negative 1561562276) LEUK NASRIN (test code = Negative Negative 7478434732) RBC/HPF (test code = See_Comment [Autom ated message] 3717361807) The system legalPAD generated this result transmitted ref erence range: 0 - 3 HP F. The reference range was not used to int erpret this result as normal/abnormal . WBC/HPF (test code = <1 See_Comment [Autom ated message] 2125342435) The system legalPAD generated this result transmitted ref erence range: 0 - 5 HP F. The reference range was not used to int erpret this result as normal/abnormal . BACTERIA (test code = Negative Negative 4023365231) MUCOUS (test code = Slight Negative LPF A 9793229906) SQ EPITH (test code = <1 HPF 5573659430) Lab Interpretation (test Abnormal code = 33226-6) [facility] with [id number] 05:33:00 Test Item Value Reference Range Interpretation Comments WBC (test code = See_Comment H [Automated 5590-2) message] The sy stem which generated this [...] RDW-SD (test code = 48.6 fL 39-49.9 11307-7) RDW-CV (test code = 13.9 % 12-15.5 788-0) PLT (test code = See_Comment [Automated 777-3) message] The sy stem which generated this result transmitted reference range : 166 - 358 10*3/ ?L. The reference r lucas was not used to interpret this result as normal/abnormal . MPV (test code = 10.2 fL 9.5-12.9 48222-5) NRBC/100 WBC (test See_Comment [Automat ed code = 5650547253) message] The system which generated this result transmitted reference range : 0.0 - 10.0 /100 WBCs. The refer ence range was not u sed to interpret th is result as normal/abnormal . NRBC x10^3 (test code <0.01 See_Comment [Auto mated = 2993339482) message] The s ystem which generated this result transmitted reference range : 10*3/?L. The reference range was not used to interpret this result as normal/abnormal . GRAN MAT (NEUT) % 58.2 % (test code = 770-8) IMM GRAN % (test code 0.70 % = 4084481322) LYMPH % (test code = 32.2 % 736-9) MONO % (test code = 7.3 % 5905-5) EOS % (test code = 1.2 % 713-8) BASO % (test code = 0.4 % 706-2) GRAN MAT x10^3(ANC) 6.62 10*3/uL 1.88-7.09 (test code = 7415721576) IMM GRAN x10^3 (test 0.08 10*3/uL 0-0.06 H code = 5605334681) LYMPH x10^3 (test code 3.66 10*3/uL 1.32-3.29 H = 731-0) MONO x10^3 (test code 0.83 10*3/uL 0.33-0.92 = 742-7) EOS x10^3 (test code = 0.14 10*3/uL 0.03-0.39 711-2) BASO x10^3 (test code 0.04 10*3/uL 0.01-0.07 = 704-7) Lab Interpretation Abnormal (test code = 78498-7) [facility] CenterMAGNESIUM2020-07-30 04:09:00 Test Item Value Reference Range Interpretation Comments MAGNESIUM (test code = 3996455377) 2.1 mg/dL 1.7-2.4 Lab Interpretation (test code = Normal 12182-1) [facility] CenterPHOSPHORUS2020-07-30 04:08:00 Test Item Value Reference Range Interpretation Comments PHOSPHORUS (test code = 0890328600) 3.6 mg/dL 2.5-5 Lab Interpretation (test code = Normal 00046-2) [facility] CenterFERRITIN [id number] 01:37:00 Test Item Value Reference Range Interpretation Comments FERRITIN (test code = 36.4 ng/mL 11-264 8232261480) KIM (test code = KIM) Biotin has been reported to cause a negative bias, interpret results relative to patient's use of biotin. Lab Interpretation (test Normal code = 12108-4) [facility] CenterLipid Panel (Total Cholesterol, Triglycerides, HDL)2020-02-21 23:53:00 Test Item Value Reference Range Interpretation Comments CHOL (test code = 200 mg/dL 120-200 4587973613) HDL (test code = 48 mg/dL >50 L 9500838201) HDLC RATIO (test code = See_Comment [Au tomated message] 9132022246) The system legalPAD generated this result transmit leann reference range : <=4.5. The refe rence range was not u sed to interpret th is result as normal/abnormal . TRIG (test code = 101 mg/dL 30-170 2878261319) LDL CHOL (test code = 132 mg/dL See_Comment [Auto mated message] 26488-9) The system legalPAD generated this result transmit leann reference range : <=160. The refe rence range was not u sed to interpret th is result as normal/abnormal . VLDL (test code = 20 mg/dL 5-60 2570090681) Lab Interpretation (test Abnormal code = 47689-2) [facility] CenterTROPONIN [id number] 17:31:00 Test Item Value Reference Range Interpretation Comments TROPONIN I (test 0.035 ng/mL See_Comment H [Automated code = 0432717416) message] The system which generated this result [...] ? Lab Interpretation Abnormal (test code = 34963-3) [facility] CenterCOMP. METABOLIC PANEL (39836)2020-02-21 17:21:00 Test Item Value Reference Range Interpretation Comments NA (test code = 137 mmol/L 135-145 9060573565) K (test code = 4.6 mmol/L 3.5-5 5487235100) CL (test code = 111 mmol/L 98-108 H 1009316393) CO2 TOTAL (test code = 22 mmol/L 23-31 L 3945945570) AGAP (test code = 2-16 4961094590) BUN (test code = 25 mg/dL 7-23 H 4884935110) GLUCOSE (test code = 124 mg/dL 70-110 H 2025011465) CREATININE (test code = 0.86 mg/dL 0.5-1.04 4845901678) TOTAL BILI (test code = 0.6 mg/dL 0.1-1.3 5444366763) CALCIUM (test code = 8.1 mg/dL 8.6-10.6 L 0591818760) T PROTEIN (test code = 5.8 g/dL 6.3-8.2 L 0923334513) ALBUMIN (test code = 3.2 g/dL 3.5-5 L 4148479412) ALK PHOS (test code = 103 U/L 34-122 9525571697) ALTv (test code = 33 U/L 5-35 1742-6) AST(SGOT) (test code = 27 U/L 13-40 6273053819) eGFR Calculation mL/min/1.73m2 (Non-) (test code = 2089328344) eGFR Calculation mL/min/1.73m2 () (test code = 6593655910) KIM (test code = KIM) Association of [...] tests). Lab Interpretation Abnormal (test code = 51681-9) [facility] CenterLIPASE2020-07-29 17:20:00 Test Item Value Reference Range Interpretation Comments LIPASE (test code = 8057815112) 190 U/L 0-220 Lab Interpretation (test code = Normal 34724-7) [facility] CenterLactic Acid Whole [id number] 17:06:00 Test Item Value Reference Range Interpretation Comments LACTIC ACID (test code = 1.18 mmol/L 0.3-2.6 4537752949) Lab Interpretation (test code = Normal 27032-5) [facility] CenterCOVID-19 (ID NOW RAPID TESTING)2020-02-21 16:01:00 Test Item Value Reference Range Interpretation Comments SARS-CoV-2 Rapid ID NOW Not Detected Not Detected (test code = 17409-5) KIM (test code = KIM) ID NOW COVID-19 Assay is an isothermal nucleic acid amplification test intended for the qualitative detection of nucleic acid from SARS-CoV-2 viral RNA in nasopharyngeal ([employer] LO[employer]IST) specimens. It is used under Emergency Use [...] indicated. Lab Interpretation Normal (test code = 86160-7) [facility] CenterXR CHEST 1 [id number] 15:51:41HISTORY: Shortness of breath. TECHNIQUE: Portable AP erect view of the chest is obtained. Comparisonmadewith 02/14/2020 study. FINDINGS: No acute pneumonia. No pneumothorax or pleural effusion orpulmonary congestion detected. Cardiac size is within normal limits. Mildthoracolumbar scoliosis is noted. Possible metallic titanium anchors in theleft upper abdomen and cholecystectomy clips in the right upper abdomen. CONCLUSIONS: No signs of acute cardiopulmonary disease.[facility], Radiant Results Inft User -02/21/2020 11:01 AM [...] upper abdomen.CONCLUSIONS: No signs of acute cardiopulmonary disease.[facility] CenterCBC WITH [id number] 15:41:00 Test Item Value Reference Range Interpretation Comments WBC (test code = See_Comment H [Automated 4341-2) message] The sy stem which generated this result transmitted reference range : 4.30 - 11.10 10*3/?L. The reference range was not used to interpret this result as normal/abnormal . RBC (test code = See_Comment [Automated 659-8) message] The sy stem which generated this [...] RDW-SD (test code = 47.2 fL 39-49.9 76064-9) RDW-CV (test code = 14.1 % 12-15.5 788-0) PLT (test code = See_Comment [Automated 777-3) message] The sy stem which generated this result transmitted reference range : 166 - 358 10*3/ ?L. The reference r lucas was not used to interpret this result as normal/abnormal . MPV (test code = 10.7 fL 9.5-12.9 99685-2) NRBC/100 WBC (test See_Comment [Automat ed code = 4239442559) message] The system which generated this result transmitted reference range : 0.0 - 10.0 /100 WBCs. The refer ence range was not u sed to interpret th is result as normal/abnormal . NRBC x10^3 (test code <0.01 See_Comment [Auto mated = 8006480392) message] The s ystem which generated this result transmitted reference range : 10*3/?L. The reference range was not used to interpret this result as normal/abnormal . GRAN MAT (NEUT) % 65.3 % (test code = 770-8) IMM GRAN % (test code 1.20 % = 4087212613) LYMPH % (test code = 23.9 % 736-9) MONO % (test code = 7.3 % 5905-5) EOS % (test code = 1.8 % 713-8) BASO % (test code = 0.5 % 706-2) GRAN MAT x10^3(ANC) 7.63 10*3/uL 1.88-7.09 H (test code = 9928317565) IMM GRAN x10^3 (test 0.14 10*3/uL 0-0.06 H code = 3103058947) LYMPH x10^3 (test code 2.79 10*3/uL 1.32-3.29 = 731-0) MONO x10^3 (test code 0.85 10*3/uL 0.33-0.92 = 742-7) EOS x10^3 (test code = 0.21 10*3/uL 0.03-0.39 711-2) BASO x10^3 (test code 0.06 10*3/uL 0.01-0.07 = 704-7) Lab Interpretation Abnormal (test code = 44102-7) [facility] CenterTHYROID STIMULATING [id number] 23:07:00 Test Item Value Reference Range Interpretation Comments TSH (test code = See_Comment [Automated message] 7175370685) The system legalPAD generated this result transmitted ref erence range: 0.45 - 4 .70 mIU/L. The refe rence range was not u sed to interpret this result as normal/abnor mal. Lab Interpretation (test Normal code = 34247-1) [facility]XR CHEST 1 [id number] 22:32:37CHEST ONE VIEW HISTORY: ?Chest pain TECHNIQUE: [...] convexity to the right.CONCLUSIONS: No acute cardiopulmonary disease.[facility] CenterLactic Acid Whole [id number] 22:30:00 Test Item Value Reference Range Interpretation Comments LACTIC ACID (test code = 1.38 mmol/L 9465221773) [facility] CenterURINALYSIS2020-07-22 22:04:00 Test Item Value Reference Range Interpretation Comments APPEARANCE (test code = Clear Clear 2178985681) COLOR (test code = Yellow Yellow 5345669855) PH (test code = 4.8-8.0 4851014057) SP GRAVITY (test code = 1.003-1.030 3011410187) GLU U QUAL (test code = Normal Normal 5427152058) BLOOD (test code = 1+ Negative A 2578251576) KETONES (test code = 5 mg/dL Negative A 5543115096) PROTEIN (test code = Negative Negative 2887-8) UROBILIN (test code = Normal Normal 6552049269) BILIRUBIN (test code = Negative Negative 8903933766) NITRITE (test code = Negative Negative 7906377389) LEUK NASRIN (test code = Negative Negative 5058521226) RBC/HPF (test code = See_Comment [Autom ated message] 9315853651) The system legalPAD generated this result transmitted ref erence range: 0 - 3 HP F. The reference range was not used to int erpret this result as normal/abnormal . WBC/HPF (test code = <1 See_Comment [Autom ated message] 4129949327) The system legalPAD generated this result transmitted ref erence range: 0 - 5 HP F. The reference range was not used to int erpret this result as normal/abnormal . BACTERIA (test code = Negative Negative 8526431171) MUCOUS (test code = Slight Negative LPF A 8185748354) SQ EPITH (test code = HPF 0634118137) HYAL CAST (test code = See_Comment H [Aut omated message] 0492483307) The system legalPAD generated this result transmitted ref erence range: <=2 LPF. The reference range was not used to int erpret this result as normal/abnormal . Lab Interpretation (test Abnormal code = 78790-0) [facility][id number] 21:43:00 Test Item Value Reference Interpretation Comments Range D-DIMER (test code = See_Comment H [Autom ated 5500959793) message] The system which generated this result [...] diagnosis. Lab Interpretation Abnormal (test code = 61056-4) [facility] CenterNESSALAN [id number] 21:31:00 Test Item Value Reference Range Interpretation Comments TROPONIN I (test 0.034 ng/mL See_Comment [Automated code = 0729203405) message] The system which generated this result [...] ? Lab Interpretation Normal (test code = 30307-5) [facility] CenterCOMP. METABOLIC PANEL (39701)2020-02-14 21:19:00 Test Item Value Reference Range Interpretation Comments NA (test code = 138 mmol/L 135-145 2719623327) K (test code = 4.8 mmol/L 3.5-5 7421553742) CL (test code = 105 mmol/L 98-108 2555681468) CO2 TOTAL (test code = 22 mmol/L 23-31 L 6254671333) AGAP (test code = 2-16 7090665638) BUN (test code = 25 mg/dL 7-23 H 9393046535) GLUCOSE (test code = 125 mg/dL 70-110 H 0309841413) CREATININE (test code = 0.90 mg/dL 0.5-1.04 5758191128) TOTAL BILI (test code = 0.9 mg/dL 0.1-1.0 0391236099) CALCIUM (test code = 9.9 mg/dL 8.6-10.6 9849064426) T PROTEIN (test code = 8.0 g/dL 6.3-8.2 5372786748) ALBUMIN (test code = 4.5 g/dL 3.5-5 8235760365) ALK PHOS (test code = 109 U/L 34-122 7672141394) ALTv (test code = 37 U/L 5-35 H 1742-6) AST(SGOT) (test code = 40 U/L 13-40 0877528385) eGFR Calculation mL/min/1.73m2 (Non-) (test code = 3721224508) eGFR Calculation mL/min/1.73m2 () (test code = 5738951174) KIM (test code = KIM) Association of [...] tests). Lab Interpretation Abnormal (test code = 89648-0) [facility] CenterLIPASE, [id number] 21:19:00 Test Item Value Reference Range Interpretation Comments LIPASE (test code = 7491249247) 269 U/L 0-220 H Lab Interpretation (test code = Abnormal 43700-5) [facility] CenteraPTT2020-07-22 21:15:00 Test Item Value Reference Range Interpretation Comments APTT Patient (test See_Comment L [Automat ed code = 3173-2) message] The system which generated this result transmitted reference range : 23 - 38 Seconds . The reference range was not used to interpr et this result as normal/abnormal . KIM (test code = KIM) The [facility] patient population mean normal value for aPTT is 30 seconds. Lab Interpretation Abnormal (test code = 78670-5) [facility] CenterPROTHROMBIN TIME / [id number] 21:13:00 Test Item Value Reference Range Interpretation [...] tions. Lab Interpretation (test Abnormal code = 59182-5) [facility] WITH [id number] 21:11:00 Test Item Value Reference Range Interpretation Comments WBC (test code = See_Comment H [Automated 4490-2) message] The system which generated this result [...] RDW-SD (test code = 45.9 fL 39-49.9 01530-0) RDW-CV (test code = 13.6 % 12-15.5 788-0) PLT (test code = See_Comment [Automated 777-3) message] The system which generated this result transmit leann reference range : 166 - 358 10*3/ ?L. The reference range was not u sed to interpret th is result as normal/abnormal . MPV (test code = 10.1 fL 9.5-12.9 06822-6) NRBC/100 WBC (test See_Comment [Automat ed code = 8644717251) message] The system which generated this result transmit leann reference range : 0.0 - 10.0 /100 WBCs. The reference range was not used to interpret this result as normal/abnormal . NRBC x10^3 (test code <0.01 See_Comment [Auto mated = 7051556893) message] The system which generated this result transmit leann reference range : 10*3/?L. The reference range was not used to interpret this result as normal/abnormal . GRAN MAT (NEUT) % 85.0 % (test code = 770-8) IMM GRAN % (test code 1.40 % = 5865684946) LYMPH % (test code = 10.1 % 736-9) MONO % (test code = 2.9 % 5905-5) EOS % (test code = 0.3 % 713-8) BASO % (test code = 0.3 % 706-2) GRAN MAT x10^3(ANC) 14.85 10*3/uL 1.88-7.09 H (test code = 6912507819) IMM GRAN x10^3 (test 0.24 10*3/uL 0-0.06 H code = 1131366378) LYMPH x10^3 (test code 1.77 10*3/uL 1.32-3.29 = 731-0) MONO x10^3 (test code 0.51 10*3/uL 0.33-0.92 = 742-7) EOS x10^3 (test code = 0.06 10*3/uL 0.03-0.39 711-2) BASO x10^3 (test code 0.06 10*3/uL 0.01-0.07 = 704-7) Lab Interpretation Abnormal (test code = 64393-6) [facility] CenterCT ABDOMEN PELVIS W [id number] 20:16:21Impression: 1. ?Findings concerning for cystitis. 2. [...] surgery. Postsurgical changes are seen at the GEjunction.[facility] CenterUrinalysis2020-06-10 18:27:00 Test Item Value Reference Range Interpretation Comments APPEARANCE (test code = Clear Clear 7022343151) COLOR (test code = Belkis Yellow A 6484138092) PH (test code = 4.8-8.0 0213178904) SP GRAVITY (test code = 1.003-1.030 1287802424) GLU U QUAL (test code = Normal Normal 3550213854) BLOOD (test code = 1+ Negative A 2830648290) KETONES (test code = Negative Negative 5527288345) PROTEIN (test code = Negative Negative 2887-8) UROBILIN (test code = Normal Normal 2130038799) BILIRUBIN (test code = Negative Negative 7333377918) NITRITE (test code = Negative Negative 6416311445) LEUK NASRIN (test code = Negative Negative 9887442002) RBC/HPF (test code = See_Comment [Autom ated message] 4415816874) The system legalPAD generated this result transmitted ref erence range: 0 - 3 HP F. The reference range was not used to int erpret this result as normal/abnormal . WBC/HPF (test code = <1 See_Comment [Autom ated message] 9727184023) The system legalPAD generated this result transmitted ref erence range: 0 - 5 HP F. The reference range was not used to int erpret this result as normal/abnormal . BACTERIA (test code = Few Negative A 4738849378) MUCOUS (test code = Moderate Negative LPF A 3159831248) SQ EPITH (test code = HPF 4466745106) HYAL CAST (test code = See_Comment H [Aut omated message] 2927890131) The system legalPAD generated this result transmitted ref erence range: <=2 LPF. The reference range was not used to int erpret this result as normal/abnormal . Lab Interpretation (test Abnormal code = 14498-1) [facility] CenterProthrombin Time (PT) / [id number] 18:21:00 Test Item Value Reference Range Interpretation [...] tions. Lab Interpretation (test Normal code = 39767-6) [facility] CenteraPTT2020-06-10 18:20:00 Test Item Value Reference Range Interpretation Comments APTT Patient (test See_Comment L [Automat ed code = 3173-2) message] The system which generated this result transmitted reference range : 23 - 38 Seconds . The reference range was not used to interpr et this result as normal/abnormal . KIM (test code = KIM) The [facility] patient population mean normal value for aPTT is 30 seconds. Lab Interpretation Abnormal (test code = 29175-4) [facility] CenterBasi Metabolic Panel (NA, K, CL, CO2, GLUCOSE, BUN, CREATININE, CA)2020-01-03 18:17:00 Test Item Value Reference Range Interpretation Comments NA (test code = 138 mmol/L 135-145 6731804152) K (test code = 3.9 mmol/L 3.5-5 6777245234) CL (test code = 110 mmol/L 98-108 H 5186162381) CO2 TOTAL (test code = 24 mmol/L 23-31 0582810721) AGAP (test code = 2-16 6281253688) BUN (test code = 12 mg/dL 7-23 8329834533) GLUCOSE (test code = 111 mg/dL 70-110 H 7508544625) CREATININE (test code = 0.72 mg/dL 0.5-1.04 6311716502) CALCIUM (test code = 8.9 mg/dL 8.6-10.6 4361272817) eGFR Calculation mL/min/1.73m2 (Non-) (test code = 6554947279) eGFR Calculation mL/min/1.73m2 () (test code = 0120624883) KIM (test code = KIM) Association of [...] tests). Lab Interpretation Abnormal (test code = 79750-6) [facility] CenterHepatic Function Panel (ALB, T.PRO, BILI T, BU/BC, ALT, AST, ALK PHOS)2020-01-03 18:17:00 Test Item Value Reference Range Interpretation Comments TOTAL BILI (test code = 0007862772) 1.1 mg/dL 0.1-1.1 BILI UNCON (test code = 1082876150) 1.2 mg/dL 0.1-1.1 H BILI CONJ (test code = 8264649718) 0.0 mg/dL 0-0.3 T PROTEIN (test code = 3324782706) 6.7 g/dL 6.3-8.2 ALBUMIN (test code = 6803428457) 3.9 g/dL 3.5-5 ALK PHOS (test code = 0429736487) 88 U/L 34-122 ALTv (test code = 1742-6) 26 U/L 5-35 AST(SGOT) (test code = 0352619865) 28 U/L 13-40 Lab Interpretation (test code = Abnormal 20323-5) [facility] CenterLipase [id number] 18:17:00 Test Item Value Reference Range Interpretation Comments LIPASE (test code = 6377028529) 166 U/L 0-220 Lab Interpretation (test code = Normal 51535-2) [facility] CenterCBC WITH [id number] 18:07:00 Test Item Value Reference Range Interpretation Comments WBC (test code = See_Comment H [Automated 4236-2) message] The sy stem which generated this result transmitted reference range : 4.30 - 11.10 10*3/?L. The reference range was not used to interpret this result as normal/abnormal . RBC (test code = See_Comment [Automated 966-8) message] The sy stem which generated this [...] RDW-SD (test code = 46.4 fL 39-49.9 98352-1) RDW-CV (test code = 13.7 % 12-15.5 788-0) PLT (test code = See_Comment [Automated 607-3) message] The sy stem which generated this result transmitted reference range : 166 - 358 10*3/ ?L. The reference r lucas was not used to interpret this result as normal/abnormal . MPV (test code = 9.9 fL 9.5-12.9 33845-7) NRBC/100 WBC (test See_Comment [Automat ed code = 1972198940) message] The system which generated this result transmitted reference range : 0.0 - 10.0 /100 WBCs. The refer ence range was not u sed to interpret th is result as normal/abnormal . NRBC x10^3 (test code <0.01 See_Comment [Auto mated = 1828934903) message] The s ystem which generated this result transmitted reference range : 10*3/?L. The reference range was not used to interpret this result as normal/abnormal . GRAN MAT (NEUT) % 83.1 % (test code = 770-8) IMM GRAN % (test code 0.70 % = 8998597150) LYMPH % (test code = 11.2 % 736-9) MONO % (test code = 3.6 % 5905-5) EOS % (test code = 1.1 % 713-8) BASO % (test code = 0.3 % 706-2) GRAN MAT x10^3(ANC) 9.43 10*3/uL 1.88-7.09 H (test code = 6424705001) IMM GRAN x10^3 (test 0.08 10*3/uL 0-0.06 H code = 3550085383) LYMPH x10^3 (test code 1.27 10*3/uL 1.32-3.29 L = 731-0) MONO x10^3 (test code 0.41 10*3/uL 0.33-0.92 = 742-7) EOS x10^3 (test code = 0.12 10*3/uL 0.03-0.39 711-2) BASO x10^3 (test code 0.03 10*3/uL 0.01-0.07 = 704-7) Lab Interpretation Abnormal (test code = 70431-2) [facility] CenterLactic Acid Whole [id number] 17:34:00 Test Item Value Reference Range Interpretation Comments LACTIC ACID (test code = 1.77 mmol/L 0.3-2.6 0173337686) Lab Interpretation (test code = Normal 37296-9) [facility] Metabolic Panel (NA, K, CL, CO2, GLUCOSE, BUN, CREATININE, CA)2019-12-06 08:20:00 Test Item Value Reference Range Interpretation Comments NA (test code = 132 mmol/L 135-145 L 9535794155) K (test code = 4.1 mmol/L 3.5-5 7309447427) CL (test code = 102 mmol/L 98-108 4485629688) CO2 TOTAL (test code = 25 mmol/L 23-31 3218212444) AGAP (test code = 2-16 5082146139) BUN (test code = 15 mg/dL 7-23 1678390051) GLUCOSE (test code = 85 mg/dL 70-110 2807972775) CREATININE (test code = 0.84 mg/dL 0.5-1.04 6854858662) CALCIUM (test code = 8.6 mg/dL 8.6-10.6 9340234397) eGFR Calculation mL/min/1.73m2 (Non-) (test code = 7758285583) eGFR Calculation mL/min/1.73m2 () (test code = 8471382666) KIM (test code = KIM) Association of [...] tests). Lab Interpretation Abnormal (test code = 09788-3) [facility] WITH [id number] 07:56:00 Test Item Value Reference Range Interpretation Comments WBC (test code = See_Comment H [Automated 0785-2) message] The system which generated this result [...] RDW-SD (test code = 47.1 fL 39-49.9 29825-6) RDW-CV (test code = 13.5 % 12-15.5 788-0) PLT (test code = See_Comment [Automated 777-3) message] The system which generated this result transmit leann reference range : 166 - 358 10*3/ ?L. The reference range was not u sed to interpret th is result as normal/abnormal . MPV (test code = 9.8 fL 9.5-12.9 50221-6) NRBC/100 WBC (test See_Comment [Automat ed code = 3501874483) message] The system which generated this result transmit leann reference range : 0.0 - 10.0 /100 WBCs. The reference range was not used to interpret this result as normal/abnormal . NRBC x10^3 (test code <0.01 See_Comment [Auto mated = 1102531616) message] The system which generated this result transmit leann reference range : 10*3/?L. The reference range was not used to interpret this result as normal/abnormal . GRAN MAT (NEUT) % 77.4 % (test code = 770-8) IMM GRAN % (test code 0.60 % = 1382329022) LYMPH % (test code = 15.0 % 736-9) MONO % (test code = 6.7 % 5905-5) EOS % (test code = 0.2 % 713-8) BASO % (test code = 0.1 % 706-2) GRAN MAT x10^3(ANC) 12.65 10*3/uL 1.88-7.09 H (test code = 9772619824) IMM GRAN x10^3 (test 0.10 10*3/uL 0-0.06 H code = 2822140066) LYMPH x10^3 (test code 2.45 10*3/uL 1.32-3.29 = 731-0) MONO x10^3 (test code 1.10 10*3/uL 0.33-0.92 H = 742-7) EOS x10^3 (test code = 0.04 10*3/uL 0.03-0.39 711-2) BASO x10^3 (test code <0.03 0.01-0.07 = 704-7) Lab Interpretation Abnormal (test code = 48517-9) [facility] CenterFL Barium Swallow Fltmaaekh2790-41-57 23:38:49 Postsurgical changes status post hiatal hernia [...] evaluation because of patient's inability to stand. [employer] images demonstrate surgical changes status post hiatal [...] ofwater. No evidence of contrast material extravasation. Dcmb, Radiant Results Inft User - 12/05/2019 6:39 PM CDTBARIUM SWALLOW HISTORY: 64-year-old female status post hiatal hernia repair for evaluationof epigastric stricture or contrast leakage TECHNIQUE AND FINDINGS: Limited evaluation because of patient's inability to stand.[employer] images demonstrate surgical changes status post hiatal [...] reviewed this study and agree with theabove report.[facility] WITH [id number] 17:22:00 Test Item Value Reference Range Interpretation [...] RDW-SD (test code = 44.9 fL 39-49.9 71606-8) RDW-CV (test code = 13.2 % 12-15.5 788-0) PLT (test code = See_Comment [Automated 777-3) message] The system which generated this result transmit leann reference range : 166 - 358 10*3/ ?L. The reference range was not u sed to interpret th is result as normal/abnormal . MPV (test code = 9.7 fL 9.5-12.9 32495-4) NRBC/100 WBC (test See_Comment [Automat ed code = 2467917396) message] The system which generated this result transmit leann reference range : 0.0 - 10.0 /100 WBCs. The reference range was not used to interpret this result as normal/abnormal . NRBC x10^3 (test code <0.01 See_Comment [Auto mated = 3297492164) message] The system which generated this result transmit leann reference range : 10*3/?L. The reference range was not used to interpret this result as normal/abnormal . GRAN MAT (NEUT) % 93.0 % (test code = 770-8) IMM GRAN % (test code 1.30 % = 3577790306) LYMPH % (test code = 3.2 % 736-9) MONO % (test code = 2.4 % 5905-5) EOS % (test code = 0.0 % 713-8) BASO % (test code = 0.1 % 706-2) GRAN MAT x10^3(ANC) 19.11 10*3/uL 1.88-7.09 H (test code = 1303527005) IMM GRAN x10^3 (test 0.27 10*3/uL 0-0.06 H code = 9315861064) LYMPH x10^3 (test code 0.65 10*3/uL 1.32-3.29 L = 731-0) MONO x10^3 (test code 0.49 10*3/uL 0.33-0.92 = 742-7) EOS x10^3 (test code = <0.03 0.03-0.39 L 711-2) BASO x10^3 (test code 0.03 10*3/uL 0.01-0.07 = 704-7) Lab Interpretation Abnormal (test code = 77337-5) [facility] Metabolic Panel (NA, K, CL, CO2, GLUCOSE, BUN, CREATININE, CA)2019-12-05 16:11:00 Test Item Value Reference Range Interpretation Comments NA (test code = 135 mmol/L 135-145 1949550450) K (test code = 5.3 mmol/L 3.5-5 H 4196301460) CL (test code = 105 mmol/L 98-108 3582035144) CO2 TOTAL (test code = 24 mmol/L 23-31 0346802567) AGAP (test code = 2-16 8444528788) BUN (test code = 23 mg/dL 7-23 0359414259) GLUCOSE (test code = 204 mg/dL 70-110 H 3563389536) CREATININE (test code = 0.74 mg/dL 0.5-1.04 3511485285) CALCIUM (test code = 8.5 mg/dL 8.6-10.6 L 2965941068) eGFR Calculation mL/min/1.73m2 (Non-) (test code = 1141739132) eGFR Calculation mL/min/1.73m2 () (test code = 2362199179) KIM (test code = KIM) Association of [...] tests). Lab Interpretation Abnormal (test code = 72865-2) [facility] CenterMagnesium2020-05-12 16:11:00 Test Item Value Reference Range Interpretation Comments MAGNESIUM (test code = 3802896800) 2.0 mg/dL 1.7-2.4 Lab Interpretation (test code = Normal 72138-6) [facility] CenterPhosphorus2020-05-12 16:11:00 Test Item Value Reference Range Interpretation Comments PHOSPHORUS (test code = 7260336166) 3.2 mg/dL 2.5-5 Lab Interpretation (test code = Normal 76839-0) [facility] [id number] 19:32:00Surgical Pathology Report Case: [id number] Authorizing Provider: Leanna Perez MD Collected: 03/06/2019 0850 Ordering Location: [address] Received: 03/06/2019 1421 Service Pathologist: Radha [...] MALIGNANCY NOTED Signing Pathologist Direct Phone Line: [phone] signed by Radha Fuentes MD on 03/07/2019 at 7:32 [id number] X 2; 89000Adc and postop diagnosis: anemia A. Duodenum random [...] technical testing was performed at [facility], Pathology Laboratory where it was developed [...] perform high complexity clinical laboratory testing.COMPREHENSIVE METABOLIC [id number] 07:33:00 Test Item Value Reference Range Interpretation [...] NOT APPLICABLE FOR DIALYSIS PATIEN TS. PROTHROMBIN TIME/[id number] 07:23:00 Test Item Value Reference Range Interpretation [...] mechanical heart valves.CBC W/PLT COUNT & AUTO [id number] 07:16:00 Test Item Value Reference Range Interpretation [...] (BEAKER) (test code = 2801) HEMOGLOBIN AND [id number] 22:37:00 Test Item Value Reference Range Interpretation Comments HEMOGLOBIN (BEAKER) (test code = 7.5 GM/DL 11.2-15.7 L 410) HEMATOCRIT (BEAKER) (test code = 26.8 % 34.1-44.9 L 411) HEMOGLOBIN AND [id number] 10:01:00 Test Item Value Reference Range Interpretation Comments HEMOGLOBIN (BEAKER) (test code = 8.1 GM/DL 11.2-15.7 L 410) HEMATOCRIT (BEAKER) (test code = 28.9 % 34.1-44.9 L 411) VITAMIN D, 49-[id number] 09:22:00 Test Item Value Reference Range Interpretation Comments VITAMIN D 25-OH (BEAKER) (test code 5.7 ng/mL 6.6-49.9 L = 2764) Effective 05/05/2017: Reference Range ChangeNew: 6.6-49.9 ng/mL Previous: 13.0- 47.8 ng/mLRecommendedVitamin D Target Range: 30.0-40.0 ng/mLCOMPREHENSIVE METABOLIC [id number] 08:49:00 Test Item Value Reference Range Interpretation [...] (test code = 2590) TSH/FREE T4 IF [id number] 06:46:00 Test Item Value Reference Range Interpretation Comments THYROID STIMULATING HORMONE 0.90 uIU/mL 0.35-4.94 (BEAKER) (test code = 772) VITAMIN B12 AND [id number] 06:46:00 Test Item Value Reference Range Interpretation [...] (BEAKER) (test code = 413) HEMOGLOBIN AND [id number] 23:36:00 Test Item Value Reference Range Interpretation Comments HEMOGLOBIN (BEAKER) (test code = 6.0 GM/DL 11.2-15.7 LL 410) HEMATOCRIT (BEAKER) (test code = 22.6 % 34.1-44.9 L 411) TISSUE [id number] 15:28:00Surgical Pathology Report Case: [id number] Authorizing Provider: Criss Monroe MD Collected: 01/18/2019 0930 Ordering Location: [address] Received: 01/18/2019 1359 Service Pathologist: Sola Kingston MD Specimen: Polyp, Colon - Sigmoid COLON, SIGMOID POLYP, POLYPECTOMY- TUBULAR ADENOMA- HIGH GRADE DYSPLASIA NOT SEEN Signing Pathologist Direct Phone Line: [phone] signed by Sola Kingston MD on 01/19/2019 at 3:28 [id number] and postoperative diagnosis: Otheriron deficiency anemiaReceived in one part. Polyp, colon-sigmoidReceived in formalin labeled with the patient's name, accession number and "polyp, colon-sigmoid" is a 0.4-cm pino polyp which is submitted in toto in A1. CG/bc Performed.FL, UGI, WITHOUT [id number] 13:45:00Reason for exam:->Suggestion of large hiatal hernia [...] Impression: Large sliding hiatal hernia. Signed: Gordon Orellanaeport Verified Date/Time: 01/19/2019 13:45:41 Reading Location: [address] OrthoConsult Reading [facility] METABOLIC [id number] 08:32:00 Test Item Value Reference Range Interpretation [...] (test code = 413) VITAMIN B12 AND [id number] 05:50:00 Test Item Value Reference Range Interpretation Comments VITAMIN B12 (BEAKER) (test code = 323 pg/mL 213-816 774) FOLATE (BEAKER) (test code = 362) 11.0 ng/mL >=7.0 BASIC METABOLIC [id number] 05:46:00 Test Item Value Reference Range Interpretation [...] (BEAKER) (test code = 413) BASIC METABOLIC [id number] 06:19:00 Test Item Value Reference Range Interpretation [...] Specimen slightly ictericCBC W/PLT COUNT & AUTO [id number] 05:36:00 Test Item Value Reference Range Interpretation [...] = 2801) CBC W/PLT COUNT & AUTO [id number] 22:19:00 Test Item Value Reference Range Interpretation [...] = 2801) CBC W/PLT COUNT & AUTO [id number] 13:07:00 Test Item Value Reference Range Interpretation [...] PERCENT (BEAKER) (test code = 2801) PROTHROMBIN TIME/[id number] 09:14:00 Test Item Value Reference Range Interpretation [...] PATIEN TS. CBC W/PLT COUNT & AUTO [id number] 07:07:00 Test Item Value Reference Range Interpretation [...] (BEAKER) (test code = 2801) BASIC METABOLIC [id number] 01:47:00 Test Item Value Reference Range Interpretation [...] PATIEN TS. CBC W/PLT COUNT & AUTO [id number] 01:42:00 Test Item Value Reference Range Interpretation [...] (BEAKER) (test code = 2801) Reference Lab [id number] 14:16:00 Test Item Value Reference Range Interpretation Comments Reference Lab Testing Negative Negative Perfor med at: BN - (test code = HELIAG) [facility] [id number] Director: Dioni Jenkins MD, [facility] ne: [phone] [id number] SURGICAL PATHOLOGY, LEVEL [id number] 13:33:[address] [address] Laboratory Printed: 01/10/18 1333 [facility] 1 Patient: CORNELIO RUFFIN Birthdate: 1955 Age/Sex: 62/F Spec#: [id number]: Tyrell Patino MD Specimen Date: 01/07/18 Received Date: 01/07/18 Specimen: POLYP, COLON CLINICAL DIAGNOSIS anemia PATHOLOGIC DIAGNOSIS Cecal polyp, polypectomy: - Tubular adenoma. Comment: There is no high grade dysplasia or malignancy present. Pathologist:Crystal Brumfield MD Entered by:01/10/18 - 1256 LAB.YGP PROCEDURES: 00615 GROSS DESCRIPTIONA. POLYP, COLON CECUM The specimen is received in 10% formalin, and is labeled with the patient's name and "cecumcolon polyp." The specimen consists of two pink-pino soft tissue fragments measuring 1.2x0.8 x 0.5 cm in aggregate. The largest fragment bisected. The specimen is entirelysubmitted in one cassette. Dictated by: Tina Kimball Entered by: 01/07/18 - 1311 LAB.YGP Patient: CORNELIO RUFFIN Re01/05/18Loc: T4-A MR#: [id number] CONTINUED ON NEXT PAGE Dis: 01/08/18ta: DIS IN [place] [id number] [facility] [place] [address] Laboratory Printed: 01/10/18 1330 [facility] DAEMPathology Page: 2 Patient: CORNELIO RUFFIN [id number] (Continued) GROSS DESCRIPTION (Continued) MICROSCOPIC DESCRIPTION A microscopic examination was performed to arrive at the diagnostic conclusion reported. Signed (Electronically Signed) Crystal Brumfield MD 01/10/18 Patient: CORNELIO RUFFIN Re01/05/18Loc: T4-A MR#: [id number] ENDOF REPORT Dis: 01/08/18ta: DIS [id number] 11:30:00 Test Item Value Reference Range Interpretation [...] 8.9 mg/dL 7.8-10.44 N code = CA) [id number] 06:56:00 Test Item Value Reference Range Interpretation Comments Chemistry (test code = MG) 1.8 mg/dL 1.6-2.6 N Comment Add to AM labsComment Add to AM [id number] 06:56:00 Test Item Value Reference Range Interpretation [...] than 8. 3 High: 5.6 - 8.3 Alligator ge: 3.7 - 5.6 Below av erage: 2.5 - 3.7 Prote ction probable: Less than 2.5 Comment Add to AM labsComment Add to AM [id number] 04:30:00 Test Item Value Reference Range Interpretation [...] code = BASO#) 0.1 thou/uL 0.0-0.2 N [id number] 04:24:00 Test Item Value Reference Range Interpretation [...] 8.9 mg/dL 7.8-10.44 N code = CA) [id number] 15:26:00 Test Item Value Reference Range Interpretation Comments Hematology (test code = HGBT) 8.8 g/dL 12.0-16.0 L Hematology (test code = HCTT) 29.5 % 36.0-47.0 L [address] SURGICAL PATHOLOGY, LEVEL [id number] 14:22:[address] [address] Laboratory Printed: 01/07/18 1423 [facility] Page: 1 Patient: CORNELIO RUFFIN Birthdate: 1955 Age/Sex: 62/F Spec#: [id number] [facility] Dr: Tyrell Patino MD Specimen Date: 01/06/18 [...] MD Entered by:01/07/18 - 1117 LAB.YGP PROCEDURES: 73646/2, 97063/2, 37066 Patient: CORNELIO RUFFIN Re01/05/18Loc: T4-A MR#: [id number] CONTINUED ON NEXT PAGE Dis: Sta: ADM IN [facility] [address] [place] [address] Laboratory Printed: 01/07/[address] [place] [address] [facility] 2 Patient: CORNELIO RUFFIN [id number] ([facility]) GROSS DESCRIPTION A. GASTRIC BIOPSY The specimen [...] by: Tina Kimball Entered by: 01/06/18 - 5049 [facility].YGP MICROSCOPIC DESCRIPTION A microscopic examination was performed to arrive at the diagnostic conclusion reported. Signed (Electronically Signed) Mike Green MD 01/07/18 Patient: CORNELIO RUFFIN Re01/05/18Loc: T4-A MR#: [id number] END OF REPORT Dis: Sta: ADM INChemistry - Benji [id number] 13:00:00 Test Item Value Reference Range Interpretation [...] Inserts - Directions forU se, September,November 12, [email or web address]. Chemistry - Benji [id number] 13:00:00 Test Item Value Reference Range Interpretation Comments Chemistry - Benji 0.6 U/mL <4 Negative Testing (test code = M2T) Chemistry - Benji Less th an 4.0 U/mL Testing (test code = Negativ e 4.0 - 6.0 = [id number]) U/mL = Equivoc al Greater than 6. [...] Benji Package Inserts - Directions september,November 12, [employer]. Chemistry - Benji 0.6 U/mL <4 Negative Testing (test code = M2T) Chemistry - Benji Less t denney 4.0 U/mL Testing (test code = Negativ e 4.0 - 6.0 = [id number]) U/mL = Equivoc al Greater than 6. [...] Benji Package Inserts - Directions september,November 12, [email or web address]. Chemistry - Benji [id number] 13:00:00 Test Item Value Reference Range Interpretation Comments Chemistry - Benji CENP, Chela -1, RNP70, Testing (test code = Scl-70, Longo, ELIAANAINTERP) SSA/Ro, SSB/L a IgGAntibodies: Less than 7.0 Benji U /mL = Negative 7.0 - 10.0 Benji U/mL = Equivocal Great er than 10.0 Benji U/mL = [id number] IgG: Less than 5.0 Benji U/mL = Negative 5.0 - 10.0 Benji U/mL = Equivocal Great er than 10.0 Benji U/mL = POSITIVE Chemistry - Benji [id number] 12:38:00 Test Item Value Reference Range Interpretation Comments Chemistry - Benji Testing (test 0.4 EliAU/mL <7 Negative code = CELTTGIGA) Comment add onChemistry - Benji [id number] 12:38:00 Test Item Value Reference Range Interpretation Comments Chemistry - Benji Testing (test 0.6 EliAU/mL <7 Negative code = CELTTGIGG) Comment add onChemistry - Benji [id number] 12:38:00 Test Item Value Reference Range Interpretation Comments Chemistry - Benji Less th an 7.0 Benji Testing (test code = U/mL = Negative 7.0 [id number]) - 10.0 Benji U/m L = Equivocal Great er than 10.0 Benji U/mL = POSITIVE Comment add onChemistry - [id number] 12:33:00 Test Item Value Reference Range Interpretation Comments Chemistry - Specials Non-Reactive NonReactive The ames el screens (test code = HIVT) for HIV-1 p24 Antigen HIV-1/HIV-2Anti body. [id number] 10:27:00 Test Item Value Reference Range Interpretation Comments Immunology (test code = SYPHABT) Nonreactive Nonreactive [id number] 10:25:00 Test Item Value Reference Range Interpretation [...] Hematology (test code = Appears Adequate PCOMMENT) [id number] 10:07:00 Test Item Value Reference Range Interpretation [...] (3) (test N code = OCCSTS1) Comment ujhgkEkuchqiyks6489-36-57 16:59:00 Test Item Value Reference Range Interpretation [...] MPV) 10.9 fL 7.4-10.4 H Chemistry - Hxflsupg3273-03-87 13:59:00 Test Item Value Reference Range Interpretation [...] is considered immu ne to HBV infection. Cxsicxioro4596-07-58 12:26:00 Test Item Value Reference Range Interpretation [...] = MPV) 5.3 fL 7.4-10.4 L Type [id number] 11:29:00 Test Item Value Reference Range Interpretation Comments Blood Type Rh (test code = BT) O POSITIVE Antibody Screen (test code = ABSC) NEGATIVE Received Blood Or Been w/in Past 90 Days? UNKNOWNReceived Blood Or Been w/in Past 90 Days? NOScheduled Surgery Date: NO SURGERYIs Surgery Date Greater than 7 days from now? NOPacked Cells - [id number] 11:29:00 [id number] [facility] TFUSE 01/06/18 [id number] 05:27:00 Test Item Value Reference Range Interpretation [...] code 149 U/L 8-55 H = ALT) [id number] 05:18:00 Test Item Value Reference Range Interpretation [...] BASO#) 0.0 thou/uL 0.0-0.2 N Chemistry - [id number] 00:59:00 Test Item Value Reference Range Interpretation Comments Chemistry - Specials (test Non-Reactive NonReactive code = THEPAIGM) Chemistry - Specials (test Non-Reactive S/CO NonReactive code = THBSAG) Chemistry - Specials (test Non-Reactive NonReactive code = INTHBCM) Chemistry - Specials (test Non-Reactive NonReactive code = INTHEPC) Chemistry - BNP, HgbA1c, [id number] 19:45:00 Test Item Value Reference Range Interpretation Comments Chemistry - BNP, HgbA1c, PTHi 100.4 pg/mL 0-100 H (test code = BNP) Comment add [id number] 19:38:00 Test Item Value Reference Range Interpretation Comments Chemistry (test 1.5 ng/mL 0-6.6 N code = CKMBM-T) Chemistry (test Less than < 0.028 code = TROPI-T) 0.010 ng/mL Reference Ra nge 0.00 - 0.028 ng /mL Negative 0.029 - 0.29 ng/mL Indetermi willie Greater or Equa l to 0.3 ng/mL Stron gly suggests AR Comment add onChemistry - [id number] 18:21:00 Test Item Value Reference Range Interpretation Comments Chemistry - Specials (test code = 24.27 ng/mL 10-291 N LINDSAY) [id number] 18:14:00 Test Item Value Reference Range Interpretation [...] Hematology (test code = Appears Adequate PCOMMENT) [id number] 17:59:00 Test Item Value Reference Range Interpretation [...] code 220 U/L 8-55 H = ALT) Eiugjczwg8767-07-15 17:59:00 Test Item Value Reference Range Interpretation Comments Chemistry (test code = IRON) 15 ug/dL 50-170 L [id number] 17:59:00 Test Item Value Reference Range Interpretation Comments Chemistry (test code = TIBC) 386 mcg/dL 265-497 N [id number] 17:50:00 Test Item Value Reference Range Interpretation [...] NONEMedical Necessity SUSPECT COAGULOPATHYAnticoagulant? NONEMedical Necessity: SUSP [id number] 17:50:00 Test Item Value Reference Range Interpretation Comments Coagulation (test code = PTT) 23.4 SEC 22.9-36.1 N Anticoagulant? NONEMedical Necessity SUSPECT COAGULOPATHYAnticoagulant? NONEMedical Necessity: SUSP COAG
[2022-09-17] MEDS ORDERED: LEVALBUTEROL 1.25 MG/3 ML NEB ONE (12:18)
[2022-09-17] MEDS ORDERED: ACETAMINOPHEN 325 MG TABLET ONE (12:24)
--- NOTE | 2022-09-17 12:37 | RAD REPORT ---
EXAM DESCRIPTION: Loc Single View09/17/2022 12:21 pm CLINICAL HISTORY: cough COMPARISON: none FINDINGS: Mild opacity medial right base. Left lung appears clear. Heart is borderline enlarged The heart is normal size IMPRESSION: Mild opacity medial right base may indicate a mild infiltrate.
[2022-09-17 13:00] LABS: SARS-COV-2 RT PCR NEGATIVE (NEGATIVE)
[2022-09-17 14:03] LABS: Absolute Lymphocytes (CBC) 1.8 K/uL (0.7-4.9); Hematocrit 35.7 % (36.0-45.0); Lymphocytes % 12.1 % (15.3-44.8); MCV 90.6 fL (80-100); RBC Red Blood Cell Count 3.93 M/uL (3.86-4.86)
[2022-09-17 14:04] LABS: Protime INR 1.17
[2022-09-17 14:16] LABS: Albumin 2.7 g/dL (3.4-5.0); Bilirubin Total 0.9 mg/dL (0.2-1.0); Potassium 3.3 mmol/L (3.5-5.1); Protein, Total 7.6 g/dL (6.4-8.2)
[2022-09-17] MEDS ORDERED: CEFTRIAXONE 1000 MG/VIAL ONE ×2 (15:51→20:00)
[2022-09-17] MEDS ORDERED: AZITHROMYCIN 250 MG TAB ONE (15:51)
--- NOTE | 2022-09-17 16:06 | EDPHYS ---
Physician Documentation [facility] Name: Irma Cain Age: 67 yrs Sex: Female : 1955 Arrival Date: 09/17/2022 Time: 11:38 Bed 26 Private MD: Quinten Li K ED Physician Michael Tracy HPI: 09/17 11:53 This 67 yrs old Female presents to ER via Ambulatory with complaints of Shortness Of jmm Breath, Weakness. 11:53 The patient has shortness of breath at rest. Onset: The symptoms/episode began/occurred jmm gradually, 3 day(s) ago. The patient's shortness of breath has no apparent modifying factors. Is a 67-year-old female with history of asthma, hypertension the presents emerged part with complaints of cough, shortness of breath, earache, sore throat. Denies vomiting or diarrhea. Denies chest pain.. Historical: - Allergies: 12:06 Aspirin; iw 12:06 Neosporin (qcx-iqz-fvtqo); iw 12:06 Talwin; iw 12:06 Benadryl; iw 12:07 Ibuprofen; iw - Home Meds: 13:18 Prednisone Oral [Active]; Adderall XR Oral [Active]; Xanax Oral [Active]; Ambien Oral kc6 [Active]; Albuterol Inhl [Active]; Effexor Oral [Active]; - PMHx: 12:06 Asthma; Hypertensive disorder; UNMEDICATED; Pneumonia; iw - PSHx: 12:06 Cholecystectomy; iw - Immunization history:: Client reports receiving the 2nd dose of the Covid vaccine. - Social history:: Smoking status: Patient denies any tobacco usage or history of. ROS: 11:53 Constitutional: Positive for body aches, fever. jmm 11:53 Respiratory: Positive for cough, shortness of breath, wheezing. 11:53 All other systems are negative. Exam: 11:53 Constitutional: This is a well developed, well nourished patient who is awake, alert, jmm and in no acute distress. Head/Face: atraumatic. Eyes: EOMI, no conjunctival erythema appreciated ENT: Moist Mucus Membranes Neck: Trachea midline, Supple Chest/axilla: Normal chest wall appearance and motion. 11:53 Abdomen/GI: Non distended Back: Normal ROM Skin: General appearance color normal MS/ Extremity: Moves all extremities, no obvious deformities appreciated, no edema noted to the lower extremities Neuro: Awake and alert Psych: Behavior is normal, Mood is normal, Patient is cooperative and pleasant 11:53 Cardiovascular: Rate: tachycardic, Pulses: no pulse deficits are appreciated. Vital Signs: 12:02 BP 141 / 65; Pulse 109; Resp 22; Temp 100.9; Pulse Ox 100% ; Weight 51.26 kg; Height 5 iw ft. 0 in. (152.40 cm); 13:04 BP 127 / 83; Pulse 112; Resp 23 S; Pulse Ox 96% on R/A; kc6 13:36 BP 129 / 53; Pulse 110; Resp 24 S; Temp 99.0(O); Pain 0/10; kc6 14:29 BP 124 / 57; Pulse 106; Resp 23 S; Pulse Ox 94% on R/A; Pain 0/10; kc6 15:38 BP 134 / 55; Pulse 106; Resp 23 S; Pulse Ox 93% on R/A; kc6 12:02 Body Mass Index 22.07 (51.26 kg, 152.40 cm) iw MDM: 11:53 Patient medically screened. [facility] 19:11 Differential diagnosis: pneumonia, Influenza, coronavirus. Data reviewed: vital signs, [facility] nurses notes. Consideration of Admission/Observation Patient was admitted/placed on observation. Management of patient was discussed with the following: Hospitalist: Kumar Campbell. I considered the following discharge prescriptions or medication management in the emergency department Medications were administered in the Emergency Department. See MAR. Independent interpretation of the following test(s) in the Emergency Department X-Ray: My interpretation is Infiltrate appreciated. Counseling: I had a detailed discussion with the patient and/or guardian regarding: the historical points, exam findings, and any diagnostic results supporting the discharge/admit diagnosis, lab results, radiology results, the need for further work-up and treatment in the hospital. 09/17 11:55 Order name: COVID-19/FLU A+B [facility] 09/17 12:28 Order name: CBC with Diff [facility] 09/17 12:28 Order name: CMP [facility] 09/17 12:28 Order name: PT-INR [facility] 09/17 12:28 Order name: Lactate w/ 2H reflex if indic. [facility] 09/17 12:28 Order name: Blood Culture Adult (2) [facility] 09/17 13:00 Order name: COVID-19/FLU A+B; Complete Time: 13:42 EDMD 09/17 14:04 Order name: Protime (+INR); Complete Time: 15:34 EDMD 09/17 14:05 Order name: CBC with Automated Diff; Complete Time: 15:34 EDMS 09/17 14:16 Order name: Comprehensive Metabolic Panel; Complete Time: 15:34 EDMD 09/17 14:17 Order name: Lactate w/ 2H reflex if indic.; Complete Time: 15:34 EDMS 09/17 21:23 Order name: Potassium [facility] 09/17 21:27 Order name: T4 Free [facility] 09/17 21:27 Order name: Thyroid Stimulating Hormone [facility] 09/17 11:55 Order name: Chest Single View XRAY [facility] 09/17 12:28 Order name: Saline Lock; Complete Time: 13:48 [facility] 09/17 12:37 Order name: RAD; Complete Time: 13:42 EDMD 09/18 03:20 Order name: CBC with Automated Diff EDMD 09/18 03:31 Order name: Basic Metabolic Panel EDMD 09/18 03:31 Order name: Phosphorus EDMD 09/18 03:31 Order name: Lipid Profile EDMD 09/18 03:31 Order name: Magnesium EDMD 09/18 09:47 Order name: Cortisol EDMD Administered Medications: 12:18 Drug: Xopenex (levalbuterol) (3) 1.25 mg Route: Inhalation; kc6 13:03 Follow up: Response: No adverse reaction kc6 12:24 Drug: Acetaminophen 650 mg Route: PO; kc6 13:57 Follow up: Response: No adverse reaction; Temperature is decreased; Pain is decreased kc6 15:53 Drug: Rocephin (cefTRIAXone) 1 grams Route: IV; Rate: calculated rate; Site: left kc6 antecubital; 16:33 Follow up: Response: No adverse reaction; IV Status: Completed infusion; IV Intake: 49svcj2 15:53 Drug: AZITHromycin 500 mg Route: PO; kc6 16:33 Follow up: Response: No adverse reaction kc6 Disposition Summary: 09/17/22 16:05 Hospitalization Ordered Hospitalization Status: Observation jmm Provider: Narinder Donato Condition: Stable jmm Problem: new jmm Symptoms: are unchanged jmm Bed/Room Type: Standard jmm Location: [facility] ER HOLD(09/18/22 12:49) ko1 Room Assignment: ERHOLD-(09/18/22 12:49) ko1 Diagnosis - Pneumonia jmm - Sepsis without septic shock without severe sepsis jmm Forms: - Medication Reconciliation Form jmm - SBAR form jmm Addendum: 09/21/2022 11:24 Co-signature as Attending Physician, Michael Tracy DO I was immediately available on-site m s3 in the Emergency Department for consultation in the care of the patient. Signatures: Dispatcher [employer] EDMS Ana Maria Pires, RN RN Mike Ring PA PA jmm Nellie Tanner, RN Cass Vinson RN RN Michael Pinto DO DO ms3 Joselyn Garza RN RN kc6 Sanjuanita Friedman RN RN ko1 Corrections: (The following items were deleted from the chart) 09/17 19:18 16:05 Telemetry/MedSurg (observation) jmm cg 19:18 16:05 jmm cg 09/18 12:16 09/17 19:18 [facility] ER HOLD cg dw 09/18 12:16 09/17 19:18 ERHOLD- cg dw 09/18 12:49 12:16 Telemetry/MedSurg (observation) ko1 12:49 12:16 231 dw ko1
--- NOTE | 2022-09-17 16:06 | ER ---
Nurse's Notes [facility] Name: Irma Cain Age: 67 yrs Sex: Female : 1955 Arrival Date: 09/17/2022 Time: 11:38 Bed 26 Private MD: Quinten Li K Diagnosis: Pneumonia;Sepsis without septic shock without severe sepsis Presentation: 09/17 12:02 Chief complaint: Patient states: fever, chills, ear aches, weakness , falling, iw diarrhea, symptoms started about 2-4 weeks ago , hx of copd and asthma. Coronavirus screen: Client presents with at least one sign or symptom that may indicate coronavirus-19. Ebola Screen: Patient negative for fever greater than or equal to 101.5 degrees Fahrenheit, and additional compatible Ebola Virus Disease symptoms Patient denies exposure to infectious person. Patient denies travel to an Ebola-affected area in the 21 days before illness onset. No symptoms or risks identified at this time. Initial Sepsis Screen: Does the patient meet any 2 criteria? RR > 20 per min. HR > 90 bpm. Does the patient have a suspected source of infection?. Risk Assessment: Do you want to hurt yourself or someone else? Patient reports no desire to harm self or others. Onset of symptoms was July 2022. 12:02 Method Of Arrival: Ambulatory iw 12:02 Acuity: FELA 3 iw Historical: - Allergies: 12:06 Aspirin; iw 12:06 Neosporin (elk-ykh-maovn); iw 12:06 Talwin; iw 12:06 Benadryl; iw 12:07 Ibuprofen; iw - Home Meds: 13:18 Prednisone Oral [Active]; Adderall XR Oral [Active]; Xanax Oral [Active]; Ambien Oral kc6 [Active]; Albuterol Inhl [Active]; Effexor Oral [Active]; - PMHx: 12:06 Asthma; Hypertensive disorder; UNMEDICATED; Pneumonia; iw - PSHx: 12:06 Cholecystectomy; iw - Immunization history:: Client reports receiving the 2nd dose of the Covid vaccine. - Social history:: Smoking status: Patient denies any tobacco usage or history of. Screenin:25 [facility] ED Fall Risk Assessment (Adult) History of falling in the last 3 months, kc6 including since admission No falls in past 3 months (0 pts) Confusion or Disorientation No (0 pts) Intoxicated or Sedated No (0 pts) Impaired Gait No (0 pts) Mobility Assist Device Used No (0 pt) Altered Elimination No (0 pt) Score/Fall Risk Level 0 - 2 = Low Risk Oriented to surroundings, Maintained a safe environment, Educated pt \\T\\ family on fall prevention, incl call for assistance when getting out of bed, Assessed \\T\\ reinforced patient's understanding of fall precautions, Hourly rounding (assess needs \\T\\ fall precautionary measures) done. Abuse screen: Denies threats or abuse. Denies injuries from another. Nutritional screening: No deficits noted. Tuberculosis screening: No symptoms or risk factors identified. Assessment: 12:25 General: Appears in no apparent distress. comfortable, Behavior is calm, cooperative, kc6 appropriate for age. Pain: Denies pain. Neuro: Kraus Agitation-Sedation Scale (RASS): 0 - Alert and Calm Level of Consciousness is awake, alert, obeys commands, Oriented to person, place, time, situation, Appropriate for age. Cardiovascular: Capillary refill < 3 seconds Rhythm is sinus tachycardia. Cardiovascular: Chest pain is denied. Respiratory: Reports shortness of breath Airway is patent Trachea midline Respiratory effort is even, labored, Respiratory pattern is symmetrical, tachypnea Breath sounds with wheezes bilaterally. GI: No signs and/or symptoms were reported involving the gastrointestinal system. : No signs and/or symptoms were reported regarding the genitourinary system. EENT: No signs and/or symptoms were reported regarding the EENT system. Derm: No signs and/or symptoms reported regarding the dermatologic system. Skin is intact, Skin is pink, warm \\T\\ dry. Musculoskeletal: No signs and/or symptoms reported regarding the musculoskeletal system. Circulation, motion, and sensation intact. Capillary refill < 3 seconds, Range of motion: intact in all extremities. 13:00 Reassessment: blood work delayed at this time, pending ultrasound. 2 RN attempts made kc6 to obtain access without success. CANDACE Frazier Charge aware at this time. aware as well. 13:07 Reassessment: spoke with daughter Ruthann Mccloud [phone], stated, "she tends to not kc6 take her medications properly, like she may be taking too many." MILLI Mcekon notified. 13:25 Reassessment: Patient appears in no apparent distress at this time. No changes from kc6 previously documented assessment. Patient and/or family updated on plan of care and expected duration. Pain level reassessed. Patient is alert, oriented x 3, equal unlabored respirations, skin warm/dry/pink. Patient denies pain at this time. 13:27 Reassessment: (family friend) Laverne Veras [phone]. kc6 13:54 Reassessment: spoke with Leonor from inside lab for assistance with second set of blood kc6 cultures. stated she will be here. 14:25 Reassessment: Patient appears in no apparent distress at this time. No changes from kc6 previously documented assessment. Patient and/or family updated on plan of care and expected duration. Pain level reassessed. Patient is alert, oriented x 3, equal unlabored respirations, skin warm/dry/pink. Patient denies pain at this time. 14:28 Reassessment: followed up with inside lab in regards to blood cultures. stated they [facility] will make it as soon as they can. 15:25 Reassessment: Patient appears in no apparent distress at this time. No changes from kc6 previously documented assessment. Patient and/or family updated on plan of care and expected duration. Pain level reassessed. Patient is alert, oriented x 3, equal unlabored respirations, skin warm/dry/pink. Patient denies pain at this time. 16:25 Reassessment: Patient appears in no apparent distress at this time. No changes from kc6 previously documented assessment. Patient and/or family updated on plan of care and expected duration. Pain level reassessed. Patient is alert, oriented x 3, equal unlabored respirations, skin warm/dry/pink. Patient denies pain at this time. 16:32 Reassessment: please see [facility] for further charting. kc6 Vital Signs: 12:02 BP 141 / 65; Pulse 109; Resp 22; Temp 100.9; Pulse Ox 100% ; Weight 51.26 kg; Height 5 iw ft. 0 in. (152.40 cm); 13:04 BP 127 / 83; Pulse 112; Resp 23 S; Pulse Ox 96% on R/A; kc6 13:36 BP 129 / 53; Pulse 110; Resp 24 S; Temp 99.0(O); Pain 0/10; kc6 14:29 BP 124 / 57; Pulse 106; Resp 23 S; Pulse Ox 94% on R/A; Pain 0/10; kc6 15:38 BP 134 / 55; Pulse 106; Resp 23 S; Pulse Ox 93% on R/A; kc6 12:02 Body Mass Index 22.07 (51.26 kg, 152.40 cm) ED Course: 11:38 Patient arrived in ED. as 11:38 Quinten Li MD is Private Physician. as 11:41 Mike Bautista PA is PHCP. m 11:41 Michael Tracy DO is Attending Physician. jmm 12:06 Triage completed. iw 12:06 Arm band placed on. iw 12:11 Joselyn Garza RN is Primary Nurse. kc6 12:27 Patient has correct armband on for positive identification. Placed in gown. Bed in low kc6 position. Call light in reach. Side rails up X2. Adult w/ patient. 13:49 Inserted saline lock: 20 gauge in left antecubital area, using aseptic technique. ss ,using aseptic technique. VIA US GUIDED. 2" 20 gauge Blood collected. 13:57 Lactate w/ 2H reflex if indic. Sent. kc6 13:57 PT-INR Sent. kc6 13:57 CMP Sent. kc6 13:57 CBC with Diff Sent. kc6 15:53 Blood Culture Adult (2) Sent. kc6 16:05 Narinder Donato is Hospitalizing Provider. [facility] 16:32 No provider procedures requiring assistance completed. Patient admitted, IV remains in kc6 place. 09/18 04:17 Primary Nurse role handed off by Joselyn Garza, CANDACE 11:03 IV discontinued, intact, bleeding controlled, No redness/swelling at site. Pressure rs5 dressing applied. 11:04 Missed attempt(s): 20 gauge in left forearm. rs5 13:20 Sanjuanita Friedman, CANDACE is Primary Nurse. ko1 Administered Medications: 09/17 12:18 Drug: Xopenex (levalbuterol) (3) 1.25 mg Route: Inhalation; kc6 13:03 Follow up: Response: No adverse reaction kc6 12:24 Drug: Acetaminophen 650 mg Route: PO; kc6 13:57 Follow up: Response: No adverse reaction; Temperature is decreased; Pain is decreased kc6 15:53 Drug: Rocephin (cefTRIAXone) 1 grams Route: IV; Rate: calculated rate; Site: left 6 antecubital; 16:33 Follow up: Response: No adverse reaction; IV Status: Completed infusion; IV Intake: [id number] 15:53 Drug: AZITHromycin 500 mg Route: PO; kc6 16:33 Follow up: Response: No adverse reaction kc6 Medication: 16:33 VIS not applicable for this client. kc6 Intake: 16:33 IV: 10ml; Total: 10ml. kc6 Outcome: 16:05 Decision to Hospitalize by Provider. [facility] 16:33 Admitted to ER Hold. Please see [facility] for further documentation. 6 16:33 Condition: stable 16:33 Instructed on the need for admit. 09/18 13:20 Patient left the ED. ko1 Signatures: Mike Bautista PA PA jmm Martinez, Amelia as Williams, Irene, RN RN Karin Harris RN RN Nisha Jean Kaitlyn, RN RN kc6 Sanjuanita Friedman RN RN ko1 Ziggy Marshall rs5 Corrections: (The following items were deleted from the chart) 09/17 13:08 13:07 Reassessment: Ruthann Mccloud [phone] kc6 kc6 13:23 13:07 Reassessment: (daughter) Ruthann Mccloud [phone] kc6 kc6
--- NOTE | 2022-09-17 16:30 | P.HP ---
Certification for Inpatient Patient admitted to: Observation With expected LOS: <2 Midnights Patient will require the following post-hospital care: Home Health Services Practitioner: I am a practitioner with admitting privileges, knowledge of patient current condition, hospital course, and medical plan of care. Services: Services provided to patient in accordance with Admission requirements found in Title 42 Section 412.3 of the Code of Federal Regulations Patient History Date of Service: 09/17/22 Primary Care Provider: Enma Reason for admission: PNA/Sepsis no end organ dysfunction History of Present Illness: 67-year-old female with PMH of asthma on chronic steroids, hypertension, multiple falls who presents to the emergency department with her friend for fatigue and malaise. Patient was evaluated in the ER, patient is alert and oriented but somewhat of a poor historian. Patient reports feeling tired, fatigued, weak for several weeks. She reports associated symptoms of shortness of breath, nonproductive cough, fevers, and diarrhea. Patient states she has been staying in bed sleeping most of the times. She reports being extremely weak and having multiple falls. Her last fall was in June, she had fractured her right wrist which is in a brace at the moment. Patient states she was supposed to have surgery on her right arm but was unable to go because of how weak she has been. Patient lives at home by herself. In the ER, her labs were significant for leukocytosis, potassium was 3.3, BUN 21 creatinine 1.28. Chest x-ray with mild opacity medial right base may indicate a mild infiltrate. Patient will be admitted under the care of Dr. Donato. Pulmonology will be consulted for further recommendations. Social work will be consulted for home health care services. Allergies aspirin Allergy (Intermediate, Verified 11/07/12 16:55) Anaphylaxis bacitracin [From Neosporin ([id number]-[id number])] Allergy (Intermediate, Verified 11/07/12 16:55) aquino skin bacitracin zinc [From Neosporin (izs-qku-hooch)] Allergy (Intermediate, Verified 11/07/12 16:55) aquino skin diphenhydramine HCl [From Benadryl] Allergy (Intermediate, Verified 06/03/18 18:20) Hives neomycin sulfate [From Neosporin ([id number]-[id number]-[id number])] Allergy (Intermediate, Verified 11/07/12 16:55) aquino skin pentazocine lactate [From Talwin] Allergy (Intermediate, Verified 06/03/18 18:19) Itching polymyxin B [From Neosporin (qqo-gkh-rqukn)] Allergy (Intermediate, Verified 11/07/12 16:55) aquino skin Neosporin ([id number]-qgi-[id number]) Allergy (Uncoded 06/03/18 18:20) Itching NSAIDS Allergy (Uncoded 02/11/18 06:38) Unknown Home Medications: Albuterol Inhaler [Ventolin Inhaler*] 2 puff IN Q4H PRN 09/03/18 Albuterol Sulfate [Ventolin Hfa] 2 puff IN Q4H PRN 09/03/18 Venlafaxine HCl [Effexor XR] 1 tab PO DAILY 09/03/18 Pantoprazole [Protonix Tab*] 40 mg PO ACB #30 tab 09/04/18 Alprazolam [Xanax] 2 mg PO DAILY 07/17/22 Dextroamphetamine/Amphetamine [Adderall 10 mg Tablet] 1 tab PO DAILY 07/17/22 Fluticasone/Umeclidin/Vilanter [Trelegy Ellipta 100-62.5-25] 1 puff PO BEDTIME 07/17/22 Lisinopril [Zestril] 20 mg PO DAILY 07/17/22 Venlafaxine HCl [Effexor XR] 1 tab PO DAILY 07/17/22 Benzonatate [Tessalon Perle*] 100 mg PO TID PRN 7 Days #20 cap 07/19/22 levoFLOXacin [Levaquin*] 750 mg PO DAILY 7 Days #7 tab 07/19/22 predniSONE [Deltasone*] 10 mg PO BIDWM 10 Days #20 tab 07/19/22 - Past Medical/Surgical History Diabetic: No -: Asthma -: Depression -: Osteoporosis -: GERD with hiatal hernia -: Obesity -: Hypertension -: ADHD -: -: Tubal ligation -: cholecystectomy -: cataract surgery -: rt shoulder sx x2 -: sx on left knee Psychosocial/ Personal History: Patient is . She has 1 child. She is retired. - Family History Mother -: Heart disease, Hypertension, Diabetes Father -: Heart disease, Hypertension, Lung disease, Cancer, Other (see notes) Notes: asbestosis - Social History Smoking Status: Never smoker Alcohol use: No CD- Drugs: No Caffeine use: Yes Place of Residence: Home Review of Systems 10-point ROS is otherwise unremarkable General: Fever, Weakness, Malaise Respiratory: Cough, Shortness of Breath, SOB with Excertion Gastrointestinal: Diarrhea Musculoskeletal: Hand Pain Neurological: Weakness Physical Examination - Vital Signs Temperature: 100.9 F Blood Pressure: 126/58 Pulse: 103 Respirations: 19 Pulse Ox (%): 96 - Physical Exam General: Alert, In no apparent distress, Oriented x3 HEENT: Atraumatic, Normocephalic, PERRLA Neck: Supple, 2+ carotid pulse no bruit Respiratory: Diminished Cardiovascular: No edema, Normal pulses, Regular rate/rhythm Capillary refill: <2 Seconds Gastrointestinal: Normal bowel sounds Musculoskeletal: No clubbing, No swelling, Tenderness, Other (right hand brace) Integumentary: Tenderness/swelling Neurological: Normal speech, Normal tone, Sensation intact Lymphatics: No axilla or inguinal lymphadenopathy - Studies Laboratory Data (last 24 hrs) 09/17/22 13:44: PT 12.9 H, INR 1.17 09/17/22 13:44: Sodium 134 L, Potassium 3.3 L, BUN 21 H, Creatinine 1.28 H, Glucose 131 H, Total Bilirubin 0.9, AST 20, ALT 22, Alkaline Phosphatase 122 H 09/17/22 13:44: WBC 15.20 H, Hgb 12.3, Hct 35.7 L, Plt Count 317 Assessment and Plan - Plan Assessment: Sepsis secondary to community-acquired pneumonia Asthma with exacerbationon on chronic steroids BEAU Depression/anxiety Hx of fall HTN Plan: Sepsis secondary to community-acquired pneumonia Continue antibiotics Rocephin/Zithromax Continue nebulizer treatment with oxygen support as needed Pulmonary toileting/incentive spirometry Pulmonology consulted, recommendations appreciated Blood cultures pending Lactic less than 2 in ER, no end-organ damage Asthma with exacerbation on chronic steroids Continue home steroids Pulmonology consult in place Oxygen support as needed BEAU Continue IV fluids Avoid nephrotoxic agents Depression/anxiety Continue home medications Hx of fall PT consulted, recommendations appreciated pharmaceutical worker consulted for home health services HTN-resume home medications when appropriate DVT PPX: Lovenox Full code Discharge Plan: Home Plan to discharge in: 48 Hours - Advance Directives Does patient have a Living Will: No Does patient have a Durable POA for Healthcare: No - Code Status/Comfort Care Code Status Assessed: Yes (Full code) Critical Care: No
[2022-09-17] MEDS ORDERED: ONDANSETRON 4 MG/2 ML VIAL IV PRN (16:36)
[2022-09-17] MEDS ORDERED: ACETAMINOPHEN 500 MG TAB PO PRN (16:36)
[2022-09-17] MEDS ORDERED: POTASSIUM 25 MEQ EFFERV TAB PO ONE (17:00)
[2022-09-17] MEDS: NA CHLORIDE 0.9% 1,000 ML IV SCH (17:00)
[2022-09-17] MEDS ORDERED: POTASSIUM 25 MEQ EFFERV TAB ONE (17:11)
[2022-09-17] MEDS ORDERED: NA CHLORIDE 0.9% 1,000 ML ONE (17:11)
[2022-09-17 17:15] VITALS: BMI 21.9
[2022-09-17 17:19] VITALS: O2SAT 100
[2022-09-17] MEDS ORDERED: predniSONE 10 MG TAB ONE (20:00)
[2022-09-17] MEDS ORDERED: ACETAMINOPHEN 500 MG TAB ONE (20:00)
[2022-09-17] MEDS: CEFTRIAXONE 1,000 MG in NA CHLORIDE 0.9% 50 ML IVPB SCH (20:04)
[2022-09-17] MEDS: predniSONE 10 MG TAB PO SCH (20:04)
[2022-09-17] MEDS: ALBUTEROL 2.5 MG/3 ML NEB SOL NEB SCH (20:05)
[2022-09-17] MEDS ORDERED: ALBUTEROL 2.5 MG/3 ML NEB SOL ONE (20:09)
[2022-09-17 21:27] LABS: Thyroid Stimulating Hormone 0.667 uIU/mL (0.358-3.740)
[2022-09-18] MEDS: ALBUTEROL 2.5 MG/3 ML NEB SOL NEB SCH ×2 (01:45→08:30)
[2022-09-18] MEDS ORDERED: ALBUTEROL 2.5 MG/3 ML NEB SOL ONE ×2 (01:51→08:58)
[2022-09-18] MEDS: NA CHLORIDE 0.9% 1,000 ML IV SCH (03:00)
[2022-09-18 03:15] LABS: Absolute Lymphocytes (CBC) 0.8 K/uL (0.7-4.9); Hematocrit 32.2 % (36.0-45.0); Lymphocytes % 6.6 % (15.3-44.8); MCV 91.1 fL (80-100); MPV 8.2 fL (7.6-11.3); RBC Red Blood Cell Count 3.53 M/uL (3.86-4.86)
[2022-09-18 03:30] LABS: Magnesium 2.5 mg/dL (1.6-2.4); Phosphorus 3.2 mg/dL (2.5-4.9); Potassium 5.1 mmol/L (3.5-5.1)
[2022-09-18] MEDS ORDERED: NA CHLORIDE 0.9% 1,000 ML ONE (04:08)
[2022-09-18] MEDS ORDERED: PANTOPRAZOLE 40MG TABLET PO SCH (06:30)
[2022-09-18] MEDS ORDERED: ENOXAPARIN 40 MG/0.4 ML SQ ONE (08:17)
[2022-09-18] MEDS ORDERED: predniSONE 10 MG TAB ONE (08:17)
[2022-09-18] MEDS ORDERED: PANTOPRAZOLE 40MG TABLET PO ONE (08:17)
[2022-09-18] MEDS ORDERED: CEFTRIAXONE 1000 MG/VIAL ONE (08:17)
[2022-09-18] MEDS: predniSONE 10 MG TAB PO SCH (08:29)
[2022-09-18] MEDS: CEFTRIAXONE 1,000 MG in NA CHLORIDE 0.9% 50 ML IVPB SCH (08:30)
[2022-09-18] MEDS ORDERED: ENOXAPARIN 40 MG/0.4 ML SQ SCH (09:00)
[2022-09-18] MEDS ORDERED: AZITHROMYCIN IV 250 MG in NA CHLORIDE 0.9% 250 ML IVPB SCH (09:00)
[2022-09-18] MEDS ORDERED: ALPRAZOLAM 1 MG TABLET PO SCH (10:44)
[2022-09-18] MEDS ORDERED: AMPHETAMINE PO SCH (10:44)
[2022-09-18] MEDS ORDERED: DEXTROAMPHETAMINE PO SCH (10:44)
[2022-09-18] MEDS ORDERED: VENLAFAXINE HCL XR 37.5MG CAP PO SCH (10:45)
[2022-09-18] MEDS ORDERED: HOME MED 1 EA UNK (Fluticasone/Umeclidin/Vilanter [Trelegy Ellipta 100-62.5-25] Blst.W.Dev PO SCH (10:45)
[2022-09-18] MEDS ORDERED: HOME MED 1 EA UNK (Venlafaxine Hcl [Effexor Xr] 150 MG Cap.Er.24h) PO SCH (10:46)
--- NOTE | 2022-09-18 12:03 | P.CNS ---
Date of Consult: 09/18/22 Primary Care Provider: Enma Chief Complaint: Asthma unresponsiveness History of Present Illness: Patient is 67 years of age well-known to me not recall the events that precipitated her admission currently she called the ambulance she felt very weak came here to the emergency room patient stopped taking her prednisone she has been on steroids for a long time she is very alert responsive asthma seems to be well controlled no new problems feeling better Allergies aspirin Allergy (Intermediate, Verified 11/07/12 16:55) Anaphylaxis bacitracin [From Neosporin ([id number]-[id number])] Allergy (Intermediate, Verified 11/07/12 16:55) aquino skin bacitracin zinc [From Neosporin (dgo-unp-[id number])] Allergy (Intermediate, Verified 11/07/12 16:55) aquino skin diphenhydramine HCl [From Benadryl] Allergy (Intermediate, Verified 06/03/18 18:20) Hives neomycin sulfate [From Neosporin (mmy-nfg-pzovh)] Allergy (Intermediate, Verified 11/07/12 16:55) aquino skin pentazocine lactate [From Talwin] Allergy (Intermediate, Verified 06/03/18 18:19) Itching polymyxin B [From Neosporin (nrg-tkk-xcbsm)] Allergy (Intermediate, Verified 11/07/12 16:55) aquino skin Neosporin ([id number]-rdk-fseyh) Allergy (Uncoded 06/03/18 18:20) Itching NSAIDS Allergy (Uncoded 02/11/18 06:38) Unknown Home Medications: Albuterol Inhaler [Ventolin Inhaler*] 2 puff IN Q4H PRN 09/03/18 Albuterol Sulfate [Ventolin Hfa] 2 puff IN Q4H PRN 09/03/18 Venlafaxine HCl [Effexor XR] 1 tab PO DAILY 09/03/18 Pantoprazole [Protonix Tab*] 40 mg PO ACB #30 tab 09/04/18 Alprazolam [Xanax] 2 mg PO DAILY 07/17/22 Dextroamphetamine/Amphetamine [Adderall 10 mg Tablet] 1 tab PO DAILY 07/17/22 Fluticasone/Umeclidin/Vilanter [Trelegy Ellipta 100-62.5-25] 1 puff PO BEDTIME 12/23/22 Lisinopril [Zestril] 20 mg PO DAILY 07/17/22 Venlafaxine HCl [Effexor XR] 1 tab PO DAILY 07/17/22 Benzonatate [Tessalon Perle*] 100 mg PO TID PRN 7 Days #20 cap 07/19/22 levoFLOXacin [Levaquin*] 750 mg PO DAILY 7 Days #7 tab 07/19/22 predniSONE [Deltasone*] 10 mg PO BIDWM 10 Days #20 tab 07/19/22 predniSONE [Deltasone*] 10 mg PO DAILY 90 Days #90 tab 09/18/22 - Past Medical/Surgical History Diabetic: No -: Asthma -: Depression -: Osteoporosis -: GERD with hiatal hernia -: Obesity -: Hypertension -: ADHD -: -: Tubal ligation -: cholecystectomy -: cataract surgery -: rt shoulder sx x2 -: sx on left knee Psychosocial/ Personal History: Patient is . She has 1 child. She is retired. - Family History Mother Medical History: Heart disease, Hypertension, Diabetes Father Medical History: Heart disease, Hypertension, Lung disease, Cancer, Other (see notes) Notes: asbestosis - Social History Smoking Status: Never smoker Alcohol use: No CD- Drugs: No Caffeine use: Yes Place of Residence: Home Review of Systems 10-point ROS is otherwise unremarkable Physical Examination Temp Pulse Resp BP Pulse Ox 97.4 F 94 H 16 141/79 H 98 09/18/22 08:00 09/18/22 08:00 09/18/22 08:00 09/18/22 08:00 09/18/22 08:00 General: Alert, In no apparent distress Neck: Supple Respiratory: Clear to auscultation bilaterally Cardiovascular: No edema, Regular rate/rhythm, Normal S1 S2 Laboratory Data (last 24 hrs) 09/17/22 13:44: PT 12.9 H, INR 1.17 09/17/22 13:44: Sodium 134 L, Potassium 3.3 L, BUN 21 H, Creatinine 1.28 H, Glucose 131 H, Total Bilirubin 0.9, AST 20, ALT 22, Alkaline Phosphatase 122 H 09/17/22 13:44: WBC 15.20 H, Hgb 12.3, Hct 35.7 L, Plt Count 317 - Problems (1) Adrenal insufficiency due to corticosteroid withdrawal Current Visit: Yes Status: Acute Plan: Patient is 67 years of age. With the weakness became unresponsive I suspect is due to adrenal insufficiency secondary to the abrupt discontinuation of corticosteroid asthma is well controlled and is compliant with her inhalers minimal changes on x-ray we will discharge patient on prednisone 10 mg once a day have sent in 90 tablets
[2022-09-18] MEDS ORDERED: ALPRAZOLAM 1 MG TABLET ONE (12:05)
[2022-09-18 12:14] VITALS: BP 134/88; TEMP 98.3
--- NOTE | 2022-09-18 12:45 | P.DS ---
Admission Date: 09/17/22 Discharge Date: 09/18/22 Primary Care Provider: Enma Disposition: ROUTINE DISCHARGE Discharge Condition: FAIR Reason for Admission: Asthma unresponsiveness - Problems (1) COPD (chronic obstructive pulmonary disease) Current Visit: Yes Status: Acute (2) Asthma Current Visit: Yes Status: Acute (3) Adrenal insufficiency due to corticosteroid withdrawal Current Visit: Yes Status: Acute (4) Depression with anxiety Onset Date: 06/06/18 Current Visit: No Status: Acute Brief History of Present Illness: 67-year-old female with PMH of asthma on chronic steroids, hypertension, multiple falls who presents to the emergency department with her friend for fatigue and malaise. Patient was evaluated in the ER, patient is alert and oriented but somewhat of a poor historian. Patient reports feeling tired, fatigued, weak for several weeks. She reports associated symptoms of shortness of breath, nonproductive cough, fevers, and diarrhea. Patient states she has been staying in bed sleeping most of the times. She reports being extremely weak and having multiple falls. Her last fall was in June, she had fractured her right wrist which is in a brace at the moment. Patient states she was supposed to have surgery on her right arm but was unable to go because of h ow weak she has been. Patient lives at home by herself. In the ER, her labs were significant for leukocytosis, potassium was 3.3, BUN 21 creatinine 1.28. Chest x-ray with mild opacity medial right base may indicate a mild infiltrate. Patient hospitalized for further management. Hospital Course: She was placed under observation on the medical floor and treated with sup portive measures including IV fluid. BMP suggested dehydration. Serum creatinine improved with IV fluid. Patient also treated empirically with antibiotics for possible pneumonia. Patient had mild leukocytosis. Patient's a.m. cortisol was low suggesting adrenal insufficiency contributing to patient's weakness and falls. Patient was seen in consultation by pulmonary Dr. Li. According to reports she stopped taking her prednisone which could have contributed to the cortisol insufficiency. Dr. Perez has prescribed her prednisone 10 mg daily persistent asthma. She was evaluated by physical therapy and patient was able to ambulate independently. She refused home health for physical therapy. Patient vitals are stable. She is deemed okay for discharge per pulmonary. Vital Signs/Physical Exam: Temp Pulse Resp BP Pulse Ox 98.3 F 92 H 18 134/88 98 02/24/23 12:00 09/18/22 12:00 09/18/22 12:00 09/18/22 12:00 09/18/22 12:00 General: Alert, In no apparent distress, Oriented x3 HEENT: Mucous membr. moist/pink Neck: Supple, JVD not distended Respiratory: Clear to auscultation bilaterally, Normal air movement Cardiovascular: No edema, Regular rate/rhythm Gastrointestinal: Normal bowel sounds, Soft and benign, Non-distended, No tenderness Musculoskeletal: No swelling Integumentary: No cyanosis Neurological: Normal strength at 5/5 x4 extr Laboratory Data at Discharge: WBC 12.30 K/uL (4.3-10.9) H 09/18/22 02:45 Hgb 10.7 g/dL (12.0-15.0) L D 09/18/22 02:45 Hct 32.2 % (36.0-45.0) L 09/18/22 02:45 Plt Count 290 K/uL (152-406) 09/18/22 02:45 PT 12.9 SECONDS (9.5-12.5) H 09/17/22 13:44 INR 1.17 09/17/22 13:44 Sodium 137 mmol/L (136-145) 09/18/22 02:45 Potassium 5.1 mmol/L (3.5-5.1) D 09/18/22 02:45 BUN 18 mg/dL (7-18) 09/18/22 02:45 Creatinine 1.06 mg/dL (0.55-1.02) H 09/18/22 02:45 Glucose 172 mg/dL (74-106) H 09/18/22 02:45 Phosphorus 3.2 mg/dL (2.5-4.9) 09/18/22 02:45 Magnesium 2.5 mg/dL (1.6-2.4) H 09/18/22 02:45 Total Bilirubin 0.9 mg/dL (0.2-1.0) 09/17/22 13:44 AST 20 U/L (15-37) 09/17/22 13:44 ALT 22 U/L (13-56) 09/17/22 13:44 Alkaline Phosphatase 122 U/L (45-117) H 09/17/22 13:44 Triglycerides 94 mg/dL (<150) 09/18/22 02:45 Cholesterol 128 mg/dL (<200) 09/18/22 02:45 HDL Cholesterol 34 mg/dL (40-60) L 09/18/22 02:45 Cholesterol/HDL Ratio 3.76 09/18/22 02:45 Home Medications: Albuterol Inhaler [Ventolin Inhaler*] 2 puff IN Q4H PRN 09/03/18 Venlafaxine HCl [Effexor XR] 1 tab PO DAILY 09/03/18 Pantoprazole [Protonix Tab*] 40 mg PO ACB #30 tab 09/04/18 Alprazolam [Xanax] 2 mg PO DAILY 07/17/22 Dextroamphetamine/Amphetamine [Adderall 10 mg Tablet] 1 tab PO DAILY 07/17/22 Fluticasone/Umeclidin/Vilanter [Trelegy Ellipta 100-62.5-25] 1 puff PO BEDTIME 07/17/22 Lisinopril [Zestril] 20 mg PO DAILY 07/17/22 Venlafaxine HCl [Effexor XR] 1 tab PO DAILY 07/17/22 Cefuroxime Axetil [Cefuroxime] 500 mg PO BID #14 tab 09/18/22 predniSONE [Deltasone*] 10 mg PO DAILY 90 Days #90 tab 09/18/22 New Medications: Cefuroxime Axetil [Cefuroxime] 500 mg PO BID #14 tab predniSONE [Deltasone*] 10 mg PO DAILY 90 Days #90 tab Physician Discharge Instructions: Please verify that the prescription has been faxed of prednisone the patient know to which pharmacy Diet: Regular Activity: Ad ashia Followup: DOMENIC SHETH [Primary Care Provider] -
[2022-09-19] MEDS ORDERED: PANTOPRAZOLE 40MG TABLET PO SCH (07:30)
== END 2022-09-18 13:19 | disposition home or self-care (01) ==
LOC: ER 11:37 → ERHOLD 16:34
PROVIDERS: ADMIT Internal Medicine; ATTEND Internal Medicine
DX: E27.3 Drug-induced adrenocortical insufficiency (principal); T38.0X6A Underdosing of glucocorticoids and synthetic analogues, initial encounter; Z91.138 Patient's unintentional underdosing of medication regimen for other reason; A41.9 Sepsis, unspecified organism; J45.909 Unspecified asthma, uncomplicated; J44.1 Chronic obstructive pulmonary disease with (acute) exacerbation; N17.9 Acute kidney failure, unspecified; F32.A Depression, unspecified; F41.9 Anxiety disorder, unspecified; Z91.81 History of falling; I10 Essential (primary) hypertension; Z20.822 Contact with and (suspected) exposure to COVID-19
CPT/HCPCS: 96365; 87040 ×2; 85025 ×2; 80048; 36415 ×2; 83735; 84100; 84132; 85610; 80061; 83605; 84443; 84439; 80053; 82533; 0240U; 71045; 97116; 97161; 94640; 99285; J7614; J7613 ×3; J7512 ×2; J0456; J1650; J7050; J7030 ×2; G0378

== ENCOUNTER → 2023-09-30 | Emergency (ER) | payer OTHER ==
[~2023-09-30] MED LIST: ALBUTEROL 2.5 MG/3 ML NEB SOL ONE; IPRATROPIUM BROM 0.5MG/2.5ML ONE; METHYLPREDNISOLONE 125 MG INJ ONE
[2023-09-30 10:31] LABS: Absolute Basophils 0.1 K/uL (0-0.5); Basophils % 0.5 % (0-1.3); Hematocrit 38.3 % (36.0-45.0); Lymphocytes % 27.1 % (15.3-44.8); MCV 91.6 fL (80-100); MPV 8.1 fL (7.6-11.3); Platelets 301 thou/uL (152-406); RBC Red Blood Cell Count 4.18 M/uL (3.86-4.86)
--- NOTE | 2023-09-30 10:54 | RAD REPORT ---
EXAM DESCRIPTION: Loc Single View09/30/2023 10:33 am CLINICAL HISTORY: sob COMPARISON: 2022 FINDINGS: A sub centimeter nodular opacity right upper lobe The remainder of the lungs appear clear of acute infiltrate. The heart is normal size IMPRESSION: Subcentimeter nodular opacity right upper lobe may represent artifact or a pulmonary gra nuloma. Neoplasm is doubtful. It is recommended that patient have a follow-up chest film in 6 months for re-evaluation
[2023-09-30 10:57] LABS: Anion Gap 9.6 mEq/L (5.0-15.0); Magnesium 2.5 mg/dL (1.6-2.4); Potassium 3.6 mEq/L (3.5-5.1); Troponin High Sensitivity 18.6 pg/mL (<58.9)
--- NOTE | 2023-09-30 12:35 | ER ---
Nurse's Notes [facility] Name: Irma Cain Age: 68 yrs Sex: Female : 1955 Arrival Date: 09/30/2023 Time: 09:33 Bed 5 Private MD: Diagnosis: Unspecified asthma with (acute) exacerbation Presentation: 09/29 09:52 Chief complaint: EMS states: pt has been sob x1 week and has been using her rescue kc6 inhalers more frequently. pt was found to be 87% in RA and was given 2 albuterol and 1 atrovent en route. Coronavirus screen: At this time, the client does not indicate any symptoms associated with coronavirus-19. Ebola Screen: No symptoms or risks identified at this time. Initial Sepsis Screen: Does the patient meet any 2 criteria? HR > 90 bpm. Does the patient have a suspected source of infection? No. Patient's initial sepsis screen is negative. Risk Assessment: Do you want to hurt yourself or someone else? Patient reports no desire to harm self or others. Onset of symptoms was September 30, 2023. 09:52 Method Of Arrival: EMS: [facility] kc6 09:52 Acuity: FELA 3 kc6 Triage Assessment: 09:54 General: Appears in no apparent distress. comfortable, well groomed, well developed, kc6 Behavior is calm, cooperative, appropriate for age. EENT: No signs and/or symptoms were reported regarding the EENT system. Neuro: Level of Consciousness is awake, alert, obeys commands, Oriented to person, place, time, situation, Appropriate for age. Cardiovascular: Capillary refill < 3 seconds. Respiratory: Reports shortness of breath Airway is patent Trachea midline Respiratory effort is even, unlabored, Respiratory pattern is regular, symmetrical, Breath sounds with wheezes bilaterally. Onset: The symptoms/episode began/occurred x1 week, the patient has mild shortness of breath. GI: No signs and/or symptoms were reported involving the gastrointestinal system. : No signs and/or symptoms were reported regarding the genitourinary system. Derm: No signs and/or symptoms reported regarding the dermatologic system. Skin is intact, is healthy with good turgor, Skin is pink, warm \T\ dry. Musculoskeletal: No signs and/or symptoms reported regarding the musculoskeletal system. Circulation, motion, and sensation intact. Capillary refill < 3 seconds, Range of motion: intact in all extremities. Historical: - Allergies: 09:54 Aspirin; kc6 09:54 Benadryl; kc6 09:54 Ibuprofen; kc6 09:54 Neosporin ([id number]); kc6 09:54 Talwin; kc6 - PMHx: 09:54 Asthma; Hypertensive disorder; UNMEDICATED; Pneumonia; kc6 - PSHx: 09:54 Cholecystectomy; kc6 - Immunization history:: Adult Immunizations up to date. - Social history:: Smoking status: Patient denies any tobacco usage or history of. Screenin:55 [facility] ED Fall Risk Assessment (Adult) History of falling in the last 3 months, kc6 including since admission No falls in past 3 months (0 pts) Confusion or Disorientation No (0 pts) Intoxicated or Sedated No (0 pts) Impaired Gait No (0 pts) Mobility Assist Device Used No (0 pt) Altered Elimination No (0 pt) Score/Fall Risk Level 0 - 2 = Low Risk. Abuse screen: Denies threats or abuse. Denies injuries from another. Nutritional screening: No deficits noted. Tuberculosis screening: No symptoms or risk factors identified. Assessment: 09:55 Reassessment: please see triage. kc6 10:10 General: Appears in no apparent distress. comfortable, Behavior is calm, cooperative, nj1 appropriate for age. 10:10 Pain: Denies pain. Neuro: No deficits noted. Level of Consciousness is awake, alert, nj1 obeys commands, Oriented to person, place, time, situation. Cardiovascular: Denies chest pain, Patient's skin is warm and dry. Respiratory: Reports shortness of breath at rest Airway is patent Respiratory effort is even, unlabored. 11:04 Reassessment: Patient appears in no apparent distress at this time. Patient and/or nj1 family updated on plan of care and expected duration. Pain level reassessed. Patient is alert, oriented x 3, equal unlabored respirations, skin warm/dry/pink. Patient denies pain at this time. Patient states feeling better. Respiratory: Breath sounds are clear in left upper lobe Breath sounds are diminished in right upper lobe, right middle lobe, left lower lobe and right lower lobe. 12:25 Reassessment: Patient appears in no apparent distress at this time. No changes from kc6 previously documented assessment. Patient and/or family updated on plan of care and expected duration. Pain level reassessed. Patient is alert, oriented x 3, equal unlabored respirations, skin warm/dry/pink. Vital Signs: 09:52 BP 168 / 92; Pulse 105; Resp 20 S; Pulse Ox 95% on R/A; Weight 53.98 kg (R); Height 5 kc6 ft. 1 in. (R); 10:58 BP 142 / 65; Pulse 100; Resp 22; Pulse Ox 94% on R/A; nj1 12:25 BP 135 / 75; Pulse 93; Resp 16 S; Pulse Ox 92% on R/A; kc6 09:52 Body Mass Index 22.48 (53.98 kg, 154.94 cm) kc6 ED Course: 09:44 Patient arrived in ED. ms3 09:44 Michael Tracy DO is Attending Physician. ms3 09:53 Petra Morales, RN is Primary Nurse. nj1 09:54 Triage completed. kc6 09:54 Arm band placed on. kc6 09:55 Patient has correct armband on for positive identification. Bed in low position. Call kc6 light in reach. Side rails up X 1. Client placed on continuous cardiac and pulse oximetry monitoring. NIBP monitoring applied. school lunch monitor on. 09:55 Patient maintains SpO2 saturation greater than 95% on room air. kc6 10:04 Inserted saline lock: 20 gauge in right antecubital area, using aseptic technique. ls5 10:28 Provided Education on: call light, fall precautions. nj1 10:35 XRAY Chest (1 view) In Process Unspecified. EDMS 12:34 James Tong DO is Referral Physician. ms3 12:51 No provider procedures requiring assistance completed. IV discontinued, intact, kc6 bleeding controlled, No redness/swelling at site. Pressure dressing applied. Administered Medications: 10:12 Drug: DuoNeb Nebulize (2.5 mg - 0.5 mg) 3 ml Nebulizer once Route: Nebulizer; nj1 10:17 Drug: MethylPrednisoLONE IVP 125 mg IVP once Route: IVP; Site: right antecubital; nj1 Medication: 12:52 VIS not applicable for this client. kc6 Outcome: 12:34 Discharge ordered by . ms3 12:52 Discharged to home ambulatory, kc6 12:52 Condition: improved 12:52 Discharge instructions given to patient, Instructed on discharge instructions, follow up and referral plans. medication usage, Demonstrated understanding of instructions, follow-up care, medications, Prescriptions given X 2, 12:52 Patient left the ED. kc6 Signatures: Dispatcher [employer] EDMS Michael Tracy DO DO ms3 Joselyn Garza RN RN kc6 Carlos Callahan ls5 Petra Morales RN RN nj1 Corrections: (The following items were deleted from the chart) 11:08 10:58 BP 142 / 65; Pulse 100bpm; Resp 22bpm; nj1 nj1
--- NOTE | 2023-09-30 12:35 | EDPHYS ---
Physician Documentation [facility] Name: Irma Cain Age: 68 yrs Sex: Female : 1955 Arrival Date: 09/30/2023 Time: 09:33 Bed 5 Private MD: ED Physician Michael Tracy HPI: 09/29 11:13 This 68 yrs old Female presents to ER via EMS with complaints of Shortness Of Breath. ms3 11:13 68-year-old female with past medical history of asthma, hypertension, pneumonia ms3 presents to the emergency department via [facility] for shortness of breath that is been ongoing for 1 week. Patient notes she has had chest pain for 1 month that has been constant. Patient denies pain currently. EMS notes on their arrival patient's room air oxygen saturation was 87% on room air with decreased air movement and inspiratory and expiratory wheezing. Patient was given 2 albuterol and 1 Atrovent with improvement of her symptoms. Historical: - Allergies: 09:54 Aspirin; kc6 09:54 Benadryl; kc6 09:54 Ibuprofen; kc6 09:54 Neosporin ([id number]); kc6 09:54 Talwin; kc6 - PMHx: 09:54 Asthma; Hypertensive disorder; UNMEDICATED; Pneumonia; kc6 - PSHx: 09:54 Cholecystectomy; kc6 - Immunization history:: Adult Immunizations up to date. - Social history:: Smoking status: Patient denies any tobacco usage or history of. ROS: 11:13 Constitutional: Negative for fever, and chills. Neck: Negative for injury, pain, and ms3 swelling, 11:13 Abdomen/GI: Negative for abdominal pain, nausea, vomiting, diarrhea, and constipation, MS/Extremity: Negative for injury and deformity, Skin: Negative for injury, rash, and discoloration, 11:13 Cardiovascular: Positive for chest pain, 11:13 Respiratory: Positive for shortness of breath, Exam: 11:13 Constitutional: This is a well developed, well nourished patient who is awake, alert, ms3 and in no acute distress. Head/Face: Normocephalic, atraumatic. Neck: Trachea midline, no cervical lymphadenopathy. Supple, full range of motion without nuchal rigidity, or vertebral point tenderness. No Meningismus. Chest/axilla: Normal chest wall appearance and motion. Nontender with no deformity. Cardiovascular: Regular rate and rhythm with a normal S1 and S2. No gallops, murmurs, or rubs. Normal PMI, no JVD. No pulse deficits. 11:13 Skin: Warm, dry with normal turgor. Normal color with no rashes, no lesions, and no evidence of cellulitis. MS/ Extremity: Pulses equal, no cyanosis. Neurovascular intact. Full, normal range of motion. 11:13 Respiratory: mild respiratory distress is noted, Breath sounds: wheezing: inspiratory expiratory is heard in the right lower lobe and left lower lobe and right middle lobe and right upper lobe and left upper lobe, 11:15 ECG was reviewed by the Attending Physician. ms3 Vital Signs: 09:52 BP 168 / 92; Pulse 105; Resp 20 S; Pulse Ox 95% on R/A; Weight 53.98 kg (R); Height 5 kc6 ft. 1 in. (R); 10:58 BP 142 / 65; Pulse 100; Resp 22; Pulse Ox 94% on R/A; nj1 12:25 BP 135 / 75; Pulse 93; Resp 16 S; Pulse Ox 92% on R/A; kc6 09:52 Body Mass Index 22.48 (53.98 kg, 154.94 cm) kc6 MDM: 09:44 Patient medically screened. ms3 11:13 Differential diagnosis: asthma, CHF exacerbation, Myocardial Infarction. ms3 12:34 Data reviewed: vital signs, nurses notes, lab test result(s), EKG, radiologic studies, ms3 and as a result, I will discharge patient. I considered the following discharge prescriptions or medication management in the emergency department Medications were administered in the Emergency Department. See MAR. Independent interpretation of the following test(s) in the Emergency Department EKG: See my EKG interpretation above. Care significantly affected by the following chronic conditions: Hypertension, Asthma. Counseling: I had a detailed discussion with the patient and/or guardian regarding the historical points, exam findings, and any diagnostic results supporting the discharge/admit diagnosis, lab results, radiology results, the need for outpatient follow up, to return to the emergency department if symptoms worsen or persist or if there are any questions or concerns that arise at home. Medication response: albuterol nebulizer treatment(s) relieved the patient's symptoms. The patient is no longer wheezing. Response to treatment: the patient's symptoms have markedly improved after treatment, and as a result, I will discharge patient. Special discussion: I discussed with the patient/guardian in detail that at this point there is no indication for admission to the hospital. It is understood, however, that if the symptoms persist or worsen the patient needs to return immediately for re-evaluation. ED course: On reevaluation patient symptoms have resolved, patient alert and oriented x 4, no apparent distress, nontoxic-appearing, ambulatory emergency primary, speaking full sentences. Patient follow-up with her primary care physician 2 to 3 days. Patient understands and agrees with plan. All questions were answered. Return precautions discussed include worsening symptoms, or any other concerns. 09/29 09:46 Order name: Basic Metabolic Panel; Complete Time: 11:00 ms3 09/29 09:46 Order name: CBC with Diff; Complete Time: 11:00 ms3 09/29 09:46 Order name: Magnesium; Complete Time: 11:00 ms3 09/29 09:46 Order name: NT PRO-BNP; Complete Time: 11:00 ms3 09/29 09:46 Order name: Troponin HS; Complete Time: 11:00 ms3 09/29 09:46 Order name: XRAY Chest (1 view); Complete Time: 11:00 ms3 09/29 09:46 Order name: EKG; Complete Time: 09:46 ms3 09/29 09:46 Order name: Cardiac monitoring; Complete Time: 10:13 ms3 09/29 09:46 Order name: EKG - Nurse/Tech; Complete Time: 10:13 ms3 09/29 09:46 Order name: IV Saline Lock; Complete Time: 10:27 ms3 09/29 09:46 Order name: Labs collected and sent; Complete Time: 10:27 ms3 09/29 09:46 Order name: O2 Per Protocol; Complete Time: 10:13 ms3 09/29 09:46 Order name: O2 Sat Monitoring; Complete Time: 10:13 ms3 EC:15 Rate is 102 beats/min. QRS [place] is Normal. MA interval is normal. QRS interval is ms3 normal. Clinical impression: NSR w/ Non-specific ST/T Changes and incomplete LBBB. Interpreted by me. Reviewed by me. Administered Medications: 10:12 Drug: DuoNeb Nebulize (2.5 mg - 0.5 mg) 3 ml Nebulizer once Route: Nebulizer; nj1 10:17 Drug: MethylPrednisoLONE IVP 125 mg IVP once Route: IVP; Site: right antecubital; nj1 Disposition Summary: 09/30/23 12:34 Discharge Ordered Notes: Location: Home ms3 Condition: Stable ms3 Diagnosis - Unspecified asthma with (acute) exacerbation ms3 Followup: ms3 - With: James Tong DO - When: 2 - 3 days - Reason: Recheck today's complaints Discharge Instructions: - Discharge Summary Sheet ms3 - Asthma, Adult ms3 Forms: - Medication Reconciliation Form ms3 - Thank You Letter ms3 - Antibiotic Education ms3 - Prescription Opioid Use ms3 - Patient Portal Instructions ms3 - Leadership Thank You Letter ms3 Prescriptions: - Ventolin HFA 90 mcg/actuation Inhalation HFA Aerosol Inhaler - inhale 2 inhalation INHALATION route every 4 hours as needed for bronchospasm; ms3 administer via ventilator; 1 unit; Refills: 0, Product Selection Permitted - Prednisone 20 mg Oral Tablet - take 3 tablets ORAL route once daily for 5 days; 15 tablet; Refills: 0, Product ms3 Selection Permitted Signatures: Dispatcher [employer] Michael Heredia DO DO ms3 Joselyn Garza RN RN kc6 Petra Morales RN RN nj1
[2023-09-30 13:24] VITALS: BP 135/75; O2SAT 92
== END ==
LOC: ER 09:33
DX: J45.901 Unspecified asthma with (acute) exacerbation (principal); I10 Essential (primary) hypertension; Z88.3 Allergy status to other anti-infective agents; Z88.6 Allergy status to analgesic agent; Z88.8 Allergy status to other drugs, medicaments and biological substances
CPT/HCPCS: 93005; 85025; 80048; 36415; 83735; 84484; 83880; 71045; 94640; 96374; 99285; J7613; J7644; J2930

== ENCOUNTER 2024-01-04 13:57 | Inpatient (IN) | payer OTHER ==
[2024-01-04] MEDS ORDERED: ACETAMINOPHEN 500 MG TAB ONE (14:05)
[2024-01-04] MEDS ORDERED: NA CHLORIDE 0.9% 500 ML ONE (14:06)
[2024-01-04] MEDS ORDERED: NA CHLORIDE 0.9% 1,000 ML ONE (14:06)
[2024-01-04 14:46] LABS: SARS-CoV-2 Antigen CONTROL BLUE LINE VIS/BG OK; SARS-CoV-2 Antigen Rapid Res Negative (Negative)
[2024-01-04 14:50] LABS: Specific Gravity 1.024 (1.005-1.030); Sqamous Epithelial <5 /HPF (None Seen); Urine Bacteria None Seen /HPF (<20); Urine Bilirubin NEGATIVE (Negative); Urine Blood 1+ (Negative); Urine Clarity Extremely Turbid (Clear); Urine Color Yellow (Yellow); Urine Crystals Unidentified Few /HPF (None Seen); Urine Culture Reflex Order NOT NEEDED; Urine Glucose NEGATIVE (Negative); Urine Ketones NEGATIVE (Negative); Urine Microscopic Reflex YN ORDER UMIC; Urine Mucus Slight /HPF (None Seen); Urine Nitrite NEGATIVE (Negative); Urine Protein 1+ (Negative); Urine RBC <5 /HPF (None Seen); Urine Urobilinogen 1+ (Normal); Urine pH 5.5 (5.0-7.0)
[2024-01-04 15:09] LABS: Absolute Eosinophils 0.2 K/uL (0-0.5); Absolute Lymphocytes (CBC) 1.7 K/uL (0.7-4.9); Absolute Neutrophil 10.9 K/uL (1.8-8.0); Basophils % 0.3 % (0-1.3); Eosinophils % 1.2 % (0-4.4); Hematocrit 40.1 % (36.0-45.0); Lymphocytes % 12.4 % (15.3-44.8); MCH 30.1 pg (27.0-35.0); MCHC 32.6 g/dL (32.0-36.0); MCV 92.6 fL (80-100); Monocytes % 7.4 % (3.3-12.3); Neutrophils % 78.7 % (41.7-73.7); Nucleated Red Blood Cells % 0.1 % (0-0); Platelets 243 thou/uL (152-406); RBC Red Blood Cell Count 4.33 M/uL (3.86-4.86)
[2024-01-04 15:21] LABS: PT Prothrombin Time 11.1 SECONDS (9.5-12.5); PTT, Activated Partial Thromb 24.9 SECONDS (24.3-36.9); Protime INR 1.01
[2024-01-04 15:33] LABS: Albumin 2.9 g/dL (3.4-5.0); Albumin/Globulin Ratio 0.8 (1.1-1.8); Anion Gap 5.7 mEq/L (5.0-15.0); Bilirubin Total 0.9 mg/dL (0.2-1.0); Globulin 3.7 g/dL (2.3-3.5); Potassium 3.7 mEq/L (3.5-5.1); Protein, Total 6.6 g/dL (6.4-8.2)
[2024-01-04] MEDS ORDERED: ONDANSETRON 4 MG/2 ML VIAL ONE (15:55)
[2024-01-04] MEDS ORDERED: CEFTRIAXONE 1000 MG/VIAL ONE (15:55)
[2024-01-04] MEDS ORDERED: MORPHINE 4 MG/ML SYR ONE (15:56)
[2024-01-04] MEDS ORDERED: NA CHLORIDE 0.9% 50 ML ONE (15:56)
--- NOTE | 2024-01-04 17:07 | RAD REPORT ---
EXAM DESCRIPTION: RADChest Single View01/04/2024 3:15 pm CLINICAL HISTORY: FEVER COMPARISON: Chest Single View dated 09/30/2023; Chest Single View dated 09/17/2022; Chest Single View d ated 07/21/2022; Chest Single View dated 06/30/2022; Stone Protocol dated 01/04/2024 TECHNIQUE: Portable AP view of the chest. FINDINGS: Patchy right basilar airspace opacity, progressive since the prior exam. No pneumothorax or effusion. The cardiomediastinal contours are unremarkable. IMPRESSION: Patchy right basilar airspace opacity, which may reflect atelectasis or pneumonia.
[2024-01-04] MEDS ORDERED: LORazepam 2 MG/ML VIAL ONE (17:37)
--- NOTE | 2024-01-04 17:37 | RAD REPORT ---
EXAM DESCRIPTION: CT - Stone Protocol - 01/04/2024 4:23 pm CLINICAL HISTORY: FLANK PAIN COMPARISON: CT ABD PELVIS W CONTRAST dated 08/29/2007; CT ABD PELVIS W CONTRAST dated 07/21/2007; CT A BD PELVIS W CONTRAST dated 07/14/2007; CT ABD PELVIS W CONTRAST dated 06/13/2007; Chest Abdomen Pelvi s W Cont dated 07/16/2022 TECHNIQUE: Thin cut axial CT imaging of the abdomen and pelvis was performed without IV contrast. Mu ltiplanar reformats were generated and reviewed. All CT scans are performed using dose optimization technique as appropriate and may include automated exposure control or mA/KV adjustment according to patient size. FINDINGS: Medial right basal lower lobe consolidative opacity. Patchy nodular opacities with tree-in -bud opacification in the lower aspect of the right lower lobe. The findings are new in comparison to the most recent radiographs, and lower lobe findings are new since the 07/16/2022 CT. Sequelae of diaphragmatic hernia repair, with mild residual sliding hiatal hernia present. The liver, spleen, adrenal glands, and pancreas show no suspicious findings. Gallbladder was surgical ly removed. Symmetric renal contour, without suspicious parenchymal findings within limits of noncontrast techniq ue. No evidence of radiopaque calculi or hydroureteronephrosis. Mildly distended central and lower abdominal bowel loops, with short-segment air-fluid levels. No foc al transition point. No bowel wall thickening. No free air, free fluid or inflammatory stranding. No hernia, mass or bulky lymphadenopathy. The urinary bladder is without significant finding. No suspicious bony findings. IMPRESSION: Mildly distended small bowel loops, with no discrete transition point. Findings may sugg est mild ileus. Right basal lower lobe and middle lobe airspace opacities, concerning for pneumonia. Other incidental findings as above.
[2024-01-04] MEDS ORDERED: NA CHLORIDE 0.9% 250 ML ONE (17:46)
[2024-01-04] MEDS ORDERED: AZITHROMYCIN 500 MG INJ IVPB ONE (17:46)
--- NOTE | 2024-01-04 17:47 | ER ---
Nurse's Notes [facility] Name: Irma Cain Age: 68 yrs Sex: Female : 1955 Arrival Date: 01/04/2024 Time: 13:57 Bed 7 Private MD: Diagnosis: Pneumonia due to other specified bacteria Presentation: 01/03 13:59 Chief complaint: Patient states: she hasn't been feeling well x2 days. reports nasal ll1 congestion, cough, fever, and has run out of her meds. Coronavirus screen: At this time, the client does not indicate any symptoms associated with coronavirus-19. Ebola Screen: No symptoms or risks identified at this time. Initial Sepsis Screen: Does the patient meet any 2 criteria? Temp <36.0*C (96.8*F)) or > 38.3*C (100.9*F). HR > 90 bpm. No. Patient's initial sepsis screen is negative. Does the patient have a suspected source of infection? No. Patient's initial sepsis screen is negative. Risk Assessment: Do you want to hurt yourself or someone else? Patient reports no desire to harm self or others. Onset of symptoms was January 04, 2024. 13:59 Method Of Arrival: EMS: [facility] ll1 13:59 Acuity: FELA 3 ll1 Triage Assessment: 14:01 General: Appears in no apparent distress. comfortable, well groomed, well developed, ll1 Behavior is cooperative, anxious, crying. EENT: Reports nasal discharge. Neuro: Level of Consciousness is awake, alert, obeys commands, Oriented to person, place, time, situation, Appropriate for age. Cardiovascular: Reports shortness of breath, Heart tones S1 S2 present Capillary refill < 3 seconds Rhythm is sinus tachycardia. Respiratory: Airway is patent Trachea midline Respiratory effort is even, unlabored, Respiratory pattern is regular, symmetrical. GI: No signs and/or symptoms were reported involving the gastrointestinal system. : No signs and/or symptoms were reported regarding the genitourinary system. Derm: No signs and/or symptoms reported regarding the dermatologic system. Skin is intact, is healthy with good turgor, Skin is pink, warm \T\ dry. Musculoskeletal: No signs and/or symptoms reported regarding the musculoskeletal system. Circulation, motion, and sensation intact. Capillary refill < 3 seconds, Range of motion: intact in all extremities. Historical: - Allergies: 14:01 Aspirin; ll1 14:01 Benadryl; ll1 14:01 Ibuprofen; ll1 14:01 Neosporin ([id number]); ll1 14:01 Talwin; ll1 - PMHx: 14:01 Asthma; Hypertensive disorder; UNMEDICATED; Pneumonia; Depressive disorder; Anxiety; ll1 add/adhd; - PSHx: 14:01 Cholecystectomy; ll1 - Immunization history:: Adult Immunizations up to date. - Infectious Disease History:: Denies. - Social history:: Smoking status: Patient denies any tobacco usage or history of. Screenin:03 [facility] ED Fall Risk Assessment (Adult) History of falling in the last 3 months, ll1 including since admission No falls in past 3 months (0 pts) Confusion or Disorientation No (0 pts) Intoxicated or Sedated No (0 pts) Impaired Gait No (0 pts) Mobility Assist Device Used No (0 pt) Altered Elimination No (0 pt) Score/Fall Risk Level 0 - 2 = Low Risk. Abuse screen: Denies threats or abuse. Denies injuries from another. Nutritional screening: No deficits noted. Tuberculosis screening: No symptoms or risk factors identified. Assessment: 14:03 Reassessment: please see triage. 1 14:53 Reassessment: Patient appears in no apparent distress at this time. No changes from [facility] previously documented assessment. Patient and/or family updated on plan of care and expected duration. Pain level reassessed. Patient is alert, oriented x 3, equal unlabored respirations, skin warm/dry/pink. 15:53 Reassessment: Patient appears in no apparent distress at this time. No changes from kc6 previously documented assessment. Patient and/or family updated on plan of care and expected duration. Pain level reassessed. Patient is alert, oriented x 3, equal unlabored respirations, skin warm/dry/pink. 16:53 Reassessment: Patient appears in no apparent distress at this time. No changes from kc6 previously documented assessment. Patient and/or family updated on plan of care and expected duration. Pain level reassessed. Patient is alert, oriented x 3, equal unlabored respirations, skin warm/dry/pink. 17:59 Reassessment: Patient appears in no apparent distress at this time. No changes from kc6 previously documented assessment. Patient and/or family updated on plan of care and expected duration. Pain level reassessed. Patient is alert, oriented x 3, equal unlabored respirations, skin warm/dry/pink. 18:30 Reassessment: Patient appears in no apparent distress at this time. Patient and/or db family updated on plan of care and expected duration. Pain level reassessed. Patient is alert, oriented x 3, equal unlabored respirations, skin warm/dry/pink. 19:35 Reassessment: Patient appears in no apparent distress at this time. Patient and/or bm8 family updated on plan of care and expected duration. Pain level reassessed. Patient is alert, oriented x 3, equal unlabored respirations, skin warm/dry/pink. General: Appears in no apparent distress. comfortable, Behavior is calm, cooperative, appropriate for age. Pain: Complains of pain in right flank/back Pain does not radiate. Pain currently is 4 out of 10 on a pain scale. level that patient reports is acceptable is 4 out of 10 on a pain scale. Quality of pain is described as aching, crampy, spasms. Neuro: No deficits noted. Level of Consciousness is awake, alert, obeys commands, Oriented to person, place, time, situation. Cardiovascular: Denies chest pain, shortness of breath, Heart tones S1 S2 present Capillary refill < 3 seconds Patient's skin is warm and dry. Respiratory: Airway is patent Trachea midline Respiratory effort is even, unlabored, Respiratory pattern is regular, symmetrical, Breath sounds with crackles in left lower lobe and right lower lobe. GI: No signs and/or symptoms were reported involving the gastrointestinal system. : No deficits noted. EENT: No deficits noted. No signs and/or symptoms were reported regarding the EENT system. Derm: No deficits noted. No signs and/or symptoms reported regarding the dermatologic system. Musculoskeletal: No deficits noted. No signs and/or symptoms reported regarding the musculoskeletal system. Vital Signs: 13:59 BP 177 / 79; Pulse 110; Resp 20 S; Temp 102.7(O); Pulse Ox 100% on R/A; Weight 49.9 kg ll1 (R); Height 5 ft. 5 in. (R); 14:54 BP 182 / 68; Pulse 98; Resp 20 S; Temp 99.8(O); Pulse Ox 96% on R/A; kc6 15:30 BP 145 / 52; Pulse 98; Resp 18; Pulse Ox 99% on R/A; db 17:04 BP 139 / 58; Pulse 103; Resp 18 S; Temp 99.3(O); Pulse Ox 91% on R/A; kc6 18:30 BP 106 / 49; Pulse 94; Resp 18; Pulse Ox 94% on R/A; db 19:18 BP 96 / 70; Pulse 95; Resp 15 S; Pulse Ox 95% on R/A; kc6 19:35 BP 141 / 62; Pulse 93; Resp 18; Temp 98.9; Pulse Ox 94% on R/A; Pain 4/10; bm8 13:59 Body Mass Index 18.30 (49.90 kg, 165.1 cm) ll1 19:35 Pain Scale: Adult bm8 [place] Coma Score: 19:35 Eye Response: spontaneous(4). Motor Response: obeys commands(6). Verbal Response: bm8 oriented(5). Total: 15. ED Course: 13:59 Patient arrived in ED. ll1 13:59 Enoc Tong MD is Attending Physician. sp3 14:01 Triage completed. ll1 14:01 Arm band placed on. ll1 14:03 Patient has correct armband on for positive identification. Placed in gown. Bed in low ll1 position. Call light in reach. Side rails up X2. cardiac monitor technician on. Pulse ox on. NIBP on. Pillow given. 14:04 Mckay Browne RN is Primary Nurse. ll1 14:23 Strep Sent. kc6 14:23 Flu Sent. kc6 14:23 SARS RAPID Sent. kc6 14:32 Missed attempt(s): 24 gauge in right antecubital area. bc6 15:17 Chest Single View XRAY In Process Unspecified. EDMS 16:24 CT Stone Protocol In Process Unspecified. EDMS 17:47 Yassine Carlin MD is Hospitalizing Provider. sp3 19:00 Report given to CANDACE Bray \T\ CANDACE Galicia. kc6 19:04 Provided Education on: ADMISSION. db 19:04 No provider procedures requiring assistance completed. Patient admitted, IV remains in db place. 19:35 Inserted saline lock: 20 gauge in right upper arm, using aseptic technique. ,using bm8 aseptic technique. inserted prior to this shift. Administered Medications: 14:23 Drug: Acetaminophen PO 1000 mg PO once Route: PO; kc6 14:54 Follow up: Response: No adverse reaction; Temperature is decreased kc6 15:03 Drug: NS 0.9% IV (30 ml/kg) 30 ml/kg IV at bolus once; Sepsis Protocol Route: IV; Rate: kc6 bolus; Site: right antecubital; 17:57 Follow up: Response: No adverse reaction; IV Status: Completed infusion; IV Intake: kc6 1500ml 15:50 Drug: Rocephin IV 1 grams IV at calculated rate once; Given slow IV push per pharmacy db instructions Route: IV; Rate: calculated rate; Site: right antecubital; 17:58 Follow up: Response: No adverse reaction; IV Status: Completed infusion; IV Intake: [id number] 15:50 Drug: morphine IVP or IV 4 mg IVP once over 4 mins Route: IVP; Infused Over: 4 mins; db Site: right antecubital; 17:58 Follow up: Response: No adverse reaction; Pain is decreased; RASS: Alert and Calm (0) kc6 15:50 Drug: Ondansetron IVP 4 mg IVP once; over 2 minutes Route: IVP; Site: right antecubital;db 17:58 Follow up: Response: No adverse reaction kc6 17:40 Drug: Ativan IVP 1 mg IVP once Route: IVP; Site: right antecubital; db 17:58 Follow up: Response: No adverse reaction; Anxiety decreased; RASS: Alert and Calm (0) kc6 17:57 Drug: Zithromax IVPB 500 mg IVPB once over 1 hrs; mix in 250 mL NS Route: IVPB; Infused kc6 Over: 1 hrs; Site: right antecubital; 19:00 Follow up: Response: No adverse reaction; IV Status: Completed infusion; IV Intake: kc6 250ml Medication: 19:04 VIS not applicable for this client. db Intake: 17:57 IV: 1500ml; Total: 1500ml. kc6 17:58 IV: 50ml; Total: 1550ml. kc6 19:00 IV: 250ml; Total: 1800ml. kc6 Outcome: 17:47 Decision to Hospitalize by Provider. sp3 19:04 Admitted to ER Hold. Please see [facility] for further documentation. db 19:04 Condition: stable 19:04 Instructed on the need for admit, 20:25 Patient left the ED. bm8 Signatures: Dispatcher [employer] EDMckay Chen, RN RN ll1 Enoc Tong MD MD sp3 Joselyn Garaz RN RN kc6 Shraddha Laureano RN RN db Gabriella Ramos 6 Asa Mancera RN RN bm8 Corrections: (The following items were deleted from the chart) 17:07 17:04 BP 139 / 58; Pulse 103bpm; Resp 18bpm; Spontaneous; Pulse Ox 91% RA; kc6 kc6
--- NOTE | 2024-01-04 17:47 | EDPHYS ---
Physician Documentation [facility] Name: Irma Cain Age: 68 yrs Sex: Female : 1955 Arrival Date: 01/04/2024 Time: 13:57 Bed 7 Private MD: ED Physician Enoc Tong HPI: 01/03 14:06 This 68 yrs old Female presents to ER via EMS with complaints of fever, generalized sp3 fatigue. 14:09 68-year-old female with a history of chronic asthma on prednisone, history of pneumonia sp3 with septic shock, depression, anxiety, ADD, hypertension presents to the ED with chief complaint fever, "not feeling right" and generalized anxiety. Patient has run out of her prednisone, Effexor, Xanax and several other medications. Patient sees Dr. Durbin for psychiatry and Dr. Li for pulmonology. Patient states that her fatigue, fever and generalized body aches been going on for the last 2 to 3 days. She denies any cough, headache, chest pain, shortness of breath, abdominal pain, vomiting, diarrhea, dysuria, urinary frequency, known sick contacts, travel history, or any other signs or symptoms on ROS at this time.. Historical: - Allergies: 14:01 Aspirin; ll1 14:01 Benadryl; ll1 14:01 Ibuprofen; ll1 14:01 Neosporin ([id number]); ll1 14:01 Talwin; ll1 - PMHx: 14:01 Asthma; Hypertensive disorder; UNMEDICATED; Pneumonia; Depressive disorder; Anxiety; ll1 add/adhd; - PSHx: 14:01 Cholecystectomy; ll1 - Immunization history:: Adult Immunizations up to date. - Infectious Disease History:: Denies. - Social history:: Smoking status: Patient denies any tobacco usage or history of. ROS: 14:11 Eyes: Negative for injury, pain, redness, and discharge, ENT: Negative for injury, sp3 pain, and discharge, Neck: Negative for injury, pain, and swelling, Cardiovascular: Negative for chest pain, palpitations, and edema, Abdomen/GI: Negative for abdominal pain, nausea, vomiting, diarrhea, and constipation, Back: Negative for injury and pain, MS/Extremity: Negative for injury and deformity, Skin: Negative for injury, rash, and discoloration, Neuro: Negative for headache, weakness, numbness, tingling, and seizure, Psych: Negative for depression, anxiety, suicide ideation, homicidal ideation, and hallucinations, Allergy/Immunology: Negative for hives, rash, and allergies, Endocrine: Negative for neck swelling, polydipsia, polyuria, polyphagia, and marked weight changes, 14:11 All other systems are negative, Exam: 14:11 Constitutional: This is a well developed, well nourished patient who is awake, alert, sp3 and in no acute distress. Head/Face: Normocephalic, atraumatic. Eyes: Pupils equal round and reactive to light, extra-ocular motions intact. Lids and lashes normal. Conjunctiva and sclera are non-icteric and not injected. Cornea within normal limits. Periorbital areas with no swelling, redness, or edema. Neck: Trachea midline, no thyromegaly or masses palpated, and no cervical lymphadenopathy. Supple, full range of motion without nuchal rigidity, or vertebral point tenderness. No Meningismus. Chest/axilla: Normal chest wall appearance and motion. Nontender with no deformity. No lesions are appreciated. Respiratory: Lungs have equal breath sounds bilaterally, clear to auscultation and percussion. No rales, rhonchi or wheezes noted. No increased work of breathing, no retractions or nasal flaring. Abdomen/GI: Soft, non-tender, with normal bowel sounds. No distension or tympany. No guarding or rebound. No evidence of tenderness throughout. Back: No spinal tenderness. No costovertebral tenderness. Full range of motion. Skin: Warm, dry with normal turgor. Normal color with no rashes, no lesions, and no evidence of cellulitis. MS/ Extremity: Pulses equal, no cyanosis. Neurovascular intact. Full, normal range of motion. Neuro: Awake and alert, GCS 15, oriented to person, place, time, and situation. Cranial nerves II-XII grossly intact. Motor strength 5/5 in all extremities. Sensory grossly intact. Cerebellar exam normal. Normal gait. Psych: Awake, alert, with orientation to person, place and time. Behavior, mood, and affect are within normal limits. 14:11 Constitutional: The patient appears Patient is febrile to 102.7 with fever induced tachycardia at 110 and normal blood pressure. Pulse oxygenation 100% on room air. 14:48 ECG was reviewed by the Attending Physician. EKG demonstrates sinus tachycardia 110 bpm sp3 with normal intervals, normal QRS, normal axis, possible T wave inversions and lateral ischemia T wave inversions laterally and nonspecific changes. Vital Signs: 13:59 BP 177 / 79; Pulse 110; Resp 20 S; Temp 102.7(O); Pulse Ox 100% on R/A; Weight 49.9 kg ll1 (R); Height 5 ft. 5 in. (R); 14:54 BP 182 / 68; Pulse 98; Resp 20 S; Temp 99.8(O); Pulse Ox 96% on R/A; kc6 15:30 BP 145 / 52; Pulse 98; Resp 18; Pulse Ox 99% on R/A; db 17:04 BP 139 / 58; Pulse 103; Resp 18 S; Temp 99.3(O); Pulse Ox 91% on R/A; kc6 18:30 BP 106 / 49; Pulse 94; Resp 18; Pulse Ox 94% on R/A; db 19:18 BP 96 / 70; Pulse 95; Resp 15 S; Pulse Ox 95% on R/A; kc6 19:35 BP 141 / 62; Pulse 93; Resp 18; Temp 98.9; Pulse Ox 94% on R/A; Pain 4/10; bm8 13:59 Body Mass Index 18.30 (49.90 kg, 165.1 cm) ll1 19:35 Pain Scale: Adult bm8 [place] Coma Score: 19:35 Eye Response: spontaneous(4). Motor Response: obeys commands(6). Verbal Response: bm8 oriented(5). Total: 15. MDM: 14:01 Patient medically screened. sp3 14:12 Data reviewed: vital signs, nurses notes, EMS record, lab test result(s), EKG, sp3 radiologic studies. ED course: 68-year-old female with PMH above with now fever, body aches and general fatigue patient also out of her medications. Differential diagnosis includes viral illness, pneumonia, COVID-19, influenza, bronchitis, sepsis, ACS, GI pathology, pathology, among others. Workup will be broad and include full sepsis workup including laboratory values, blood cultures, chest x-ray, urine analysis, swabs. Treatment will include 30 mL/kg of normal saline bolus and antibiotics layered and as indicated. Tylenol for fever control. Disposition pending workup and patient course with possible admission if indicated.. 17:42 ED course: X-ray and CT scan of the abdomen pelvis demonstrated pulmonary infiltrates sp3 consistent with fever, leukocytosis and patient symptoms. I have added Zithromax to the already given Rocephin to treat community-acquired pneumonia and patient will be admitted to the hospital due to SIRS criteria being positive.. 01/03 14:00 Order name: Blood Culture Adult (2) [facility] 01/03 14:00 Order name: CBC with Diff; Complete Time: 15:38 [facility] 01/03 14:00 Order name: CMP; Complete Time: 15:38 [facility] 01/03 14:00 Order name: Lactate w/ 2H reflex if indic.; Complete Time: 15:38 [facility] 01/03 14:00 Order name: Protime (+inr); Complete Time: 15:38 [facility] 01/03 14:00 Order name: Ptt, Activated; Complete Time: 15:38 [facility] 01/03 14:00 Order name: Urinalysis w/ reflexes; Complete Time: 15:38 [facility] 01/03 14:00 Order name: SARS RAPID; Complete Time: 15:38 [facility] 01/03 14:00 Order name: Flu; Complete Time: 15:38 [facility] 01/03 14:00 Order name: Strep [facility] 01/03 14:59 Order name: Throat Culture [facility] 01/03 18:32 Order name: Urinalysis w/ reflexes [facility] 01/03 18:32 Order name: CBC with Automated Diff [facility] 01/03 18:32 Order name: CBC with Automated Diff [facility] 01/03 18:32 Order name: Comprehensive Metabolic Panel [facility] 01/03 18:32 Order name: Comprehensive Metabolic Panel [facility] 01/03 14:00 Order name: Chest Single View XRAY; Complete Time: 17:38 [facility] 01/03 15:41 Order name: CT Stone Protocol; Complete Time: 17:38 [facility] 01/03 14:00 Order name: EKG; Complete Time: 14:01 [facility] 01/03 14:00 Order name: Accucheck; Complete Time: 14:54 [facility] 01/03 14:00 Order name: Cardiac monitoring; Complete Time: 14:04 [facility] 01/03 14:00 Order name: EKG - Nurse/Tech; Complete Time: 14:23 sp3 01/03 14:00 Order name: IV Saline Lock - Large Bore; Complete Time: 14:54 sp3 01/03 14:00 Order name: Labs collected and sent; Complete Time: 14:54 sp3 01/03 14:00 Order name: O2 Per Protocol; Complete Time: 14:04 sp3 01/03 14:00 Order name: O2 Sat Monitoring; Complete Time: 14:04 sp3 01/03 14:00 Order name: Vital Signs; Complete Time: 14:04 sp3 Administered Medications: 14:23 Drug: Acetaminophen PO 1000 mg PO once Route: PO; kc6 14:54 Follow up: Response: No adverse reaction; Temperature is decreased kc6 15:03 Drug: NS 0.9% IV (30 ml/kg) 30 ml/kg IV at bolus once; Sepsis Protocol Route: IV; Rate: kc6 bolus; Site: right antecubital; 17:57 Follow up: Response: No adverse reaction; IV Status: Completed infusion; IV Intake: kc6 1500ml 15:50 Drug: Rocephin IV 1 grams IV at calculated rate once; Given slow IV push per pharmacy db instructions Route: IV; Rate: calculated rate; Site: right antecubital; 17:58 Follow up: Response: No adverse reaction; IV Status: Completed infusion; IV Intake: [id number] 15:50 Drug: morphine IVP or IV 4 mg IVP once over 4 mins Route: IVP; Infused Over: 4 mins; db Site: right antecubital; 17:58 Follow up: Response: No adverse reaction; Pain is decreased; RASS: Alert and Calm (0) kc6 15:50 Drug: Ondansetron IVP 4 mg IVP once; over 2 minutes Route: IVP; Site: right antecubital;db 17:58 Follow up: Response: No adverse reaction kc6 17:40 Drug: Ativan IVP 1 mg IVP once Route: IVP; Site: right antecubital; db 17:58 Follow up: Response: No adverse reaction; Anxiety decreased; RASS: Alert and Calm (0) kc6 17:57 Drug: Zithromax IVPB 500 mg IVPB once over 1 hrs; mix in 250 mL NS Route: IVPB; Infused kc6 Over: 1 hrs; Site: right antecubital; 19:00 Follow up: Response: No adverse reaction; IV Status: Completed infusion; IV Intake: kc6 250ml Disposition Summary: 01/04/24 17:47 Hospitalization Ordered Notes: Hospitalization Status: Inpatient Admission sp3 Provider: Yassine Carlin sp3 Location: Telemetry/MedSurg (Inpatient) sp3 Condition: Stable sp3 Problem: new sp3 Symptoms: have worsened sp3 Bed/Room Type: Standard sp3 Room Assignment: 210(01/04/24 19:03) ll1 Diagnosis - Pneumonia due to other specified bacteria sp3 Forms: - Medication Reconciliation Form sp3 - SBAR form sp3 - Leadership Thank You Letter sp3 Signatures: Dispatcher [employer] EDMckay Chen RN RN ll1 Enoc Tong MD MD sp3 Joselyn Garza RN RN kc6 Shraddha Laureano RN RN db Corrections: (The following items were deleted from the chart) 14:01 14:01 BLOOD CULTURE*+BA.LAB.BRZ ordered. EDMS EDMS 14:01 14:01 CBC+H.LAB.BRZ ordered. EDMS EDMS 14:01 14:01 COMPREHENSIVE METABOLIC PANEL+C.LAB.BRZ ordered. EDMS EDMS 14:01 14:01 LACTATE+C.LAB.BRZ ordered. EDMS EDMS 14:01 14:01 PROTIME (+INR)+COAG.LAB.BRZ ordered. EDMS EDMS 14:01 14:01 PTT, ACTIVATED+COAG.LAB.BRZ ordered. EDMS EDMS 14:01 14:01 Urinalysis+U.LAB.BRZ ordered. EDMS EDMS 14:01 14:01 SARS-COV-2 Antigen Rapid+I.LAB.BRZ ordered. EDMS EDMS 14:01 14:01 Influenza Screen (A \\T\\ B)+BA.LAB.BRZ ordered. EDMS EDMS 14:01 14:01 Group A Streptococcus Rapid Sc+BA.LAB.BRZ ordered. EDMS EDMS 19:03 17:47 sp3 ll1
[2024-01-04] MEDS ORDERED: ONDANSETRON 4 MG/2 ML VIAL IV PRN (18:26)
--- NOTE | 2024-01-04 18:26 | P.HP ---
Certification for Inpatient Patient admitted to: Inpatient With expected LOS: >2 Midnights Practitioner: I am a practitioner with admitting privileges, knowledge of patient current condition, hospital course, and medical plan of care. Services: Services provided to patient in accordance with Admission requirements found in Title 42 Section 412.3 of the Code of Federal Regulations Patient History Date of Service: 01/04/24 Reason for admission: Fever, chills, shortness of breath, cough History of Present Illness: 68-year-old female with past medical history of chronic asthma on prednisone,, hypertension, anxiety, depression, history of pneumonia with septic shock, ADD, came in with fever and generalized weakness and anxiety. Patient has run out of her prednisone, Effexor, Xanax and other medications. Her fatigue, fever and generalized body aches been going on for the last 2 to 3 days. She denies any headache, chest pain, shortness of breath, abdominal pain, vomiting, diarrhea, dysuria, urinary frequency. No known sick contacts, travel history. Also complains of shortness of breath with occasional wheezing and cough. Cough is nonproductive with no hemoptysis. Denies any chest pain. No rhinorrhea. Patient was assessed in the ER and had a workup which was consistent with right lower lobe pneumonia and possible ileus and was admitted for further management . Allergies aspirin Allergy (Intermediate, Verified 11/07/12 16:55) Anaphylaxis bacitracin [From Neosporin ([id number])] Allergy (Intermediate, Verified 11/07/12 16:55) aquino skin bacitracin zinc [From Neosporin ([id number])] Allergy (Intermediate, Verified 11/07/12 16:55) aquino skin diphenhydramine HCl [From Benadryl] Allergy (Intermediate, Verified 06/03/18 18 :20) Hives neomycin sulfate [From Neosporin ([id number])] Allergy (Intermediate, Verified 11/07/12 16:55) aquino skin pentazocine lactate [From Talwin] Allergy (Intermediate, Verified 06/03/18 18: 19) Itching polymyxin B [From Neosporin ([id number])] Allergy (Intermediate, Verified 11/07/12 16:55) aquino skin Neosporin ([id number]) Allergy (Uncoded 06/03/18 18:20) Itching NSAIDS Allergy (Uncoded 02/11/18 06:38) Unknown Home medications list reviewed: Yes Home Medications: Albuterol Inhaler [Ventolin Inhaler*] 2 puff IN Q4H PRN 09/03/18 Venlafaxine HCl [Effexor XR] 1 tab PO DAILY 09/03/18 Pantoprazole [Protonix Tab*] 40 mg PO ACB #30 tab 09/04/18 Dextroamphetamine/Amphetamine [Adderall 10 mg Tablet] 1 tab PO DAILY 07/17/22 Fluticasone/Umeclidin/Vilanter [Trelegy Ellipta 100-62.5-25] 1 puff PO BEDTIME 07/17/22 predniSONE [Deltasone*] 10 mg PO DAILY 90 Days #90 tab 09/18/22 Buspirone HCl [Buspar*] 1 tab PO BID 01/04/24 diazePAM [Diazepam] 1 tab PO BEDTIME 01/04/24 - Past Medical/Surgical History Diabetic: No Past Medical History: Reviewed- Non-Contributory -: Asthma -: Depression -: Osteoporosis -: GERD with hiatal hernia -: Obesity -: Hypertension -: ADHD Past Surgical History: Reviewed- Non-Contributory -: -: Tubal ligation -: cholecystectomy -: cataract surgery -: rt shoulder sx x2 -: sx on left knee Psychosocial/ Personal History: Patient is . She has 1 child. She is retired. - Family History Mother -: Heart disease, Hypertension, Diabetes Father -: Heart disease, Hypertension, Lung disease, Cancer, Other (see notes) Notes: asbestosis - Social History Smoking Status: Former smoker Alcohol use: No CD- Drugs: No Caffeine use: Yes Review of Systems 10-point ROS is otherwise unremarkable Physical Examination - Vital Signs Temperature: 98.8 F Blood Pressure: 150/66 Pulse: 78 Respirations: 19 Pulse Ox (%): 94 - Physical Exam General: Alert, Oriented x3, Mild distress HEENT: Atraumatic, Normocephalic Neck: Supple, JVD not distended Respiratory: Diminished, Crackles/rales, Expiratory wheezes Cardiovascular: Regular rate/rhythm, Normal S1 S2 Capillary refill: <2 Seconds Gastrointestinal: Soft and benign, Non-distended, W/out hepatosplenomegaly Musculoskeletal: No clubbing, No swelling Integumentary: No rashes, No tenderness/swelling Neurological: Normal speech, Normal strength at 5/5 x4 extr Lymphatics: No axilla or inguinal lymphadenopathy - Studies Laboratory Data (last 24 hrs) 01/04/24 01/04/24 01/04/24 14:52 14:52 14:52 WBC 13.90 H Hgb 13.0 Hct 40.1 Plt Count 243 PT 11.1 INR 1.01 APTT 24.9 Sodium 140 Potassium 3.7 BUN 12 Creatinine 1.15 H Glucose 99 Total Bilirubin 0.9 AST 45 H ALT 64 H Alkaline Phosphatase 95 Microbiology Data (last 24 hrs): 01/04/24 14:19 Throat Group A Streptococcus Rapid Screen - Final 01/04/24 14:19 Nasopharnyx Influenza Type A Antigen Screen - Final 01/04/24 14:19 Nasopharnyx Influenza Type B Antigen Screen - Final Assessment and Plan - Problems (Diagnosis) (1) COPD (chronic obstructive pulmonary disease) Current Visit: No Status: Chronic (2) Pneumonia Current Visit: No Status: Acute Plan: Right lower lobe pneumonia Started on IV antibiotic with Rocephin and Zithromax Tylenol as needed X-ray findings noted CT abdomen findings noted as well Will obtain cultures Change antibiotic as per sensitivity COPD with mild exacerbation Bronchodilators Continue home medications Continue prednisone Monitor closely on telemetry Leukocytosis Monitor CBC in a.m. Acute renal insufficiency Monitor renal parameters Monitor electrolytes and replace accordingly Elevated LFTs Will monitor LFTs in a.m. Hypertension Antihypertensives titrated Continue home medications and titrate as needed Hyperlipidemia Continue statin Depression/anxiety Continue home medications GI/DVT prophylaxis Advanced directive full code Qualifiers: Pneumonia type: due to unspecified organism Laterality: bilateral Discharge Plan: Home Plan to discharge in: 48 Hours - Advance Directives Does patient have a Living Will: No Does patient have a Durable POA for Healthcare: No - Code Status/Comfort Care Code Status: Full Code Time Spent Managing Pts Care (In Minutes): 48
[2024-01-04] MEDS: NA CHLORIDE 0.9% 1,000 ML IV SCH (21:44)
[2024-01-04] MEDS: VENLAFAXINE HCL XR 75 MG CAP PO ONE (22:09)
[2024-01-04] MEDS: predniSONE 10 MG TAB ONE (22:09)
[2024-01-04] MEDS: DIAZEPAM 5 MG TABLET ONE (22:09)
[2024-01-04] MEDS: ALBUTEROL 2.5 MG/3 ML NEB SOL NEB SCH (23:00)
[2024-01-04 23:17] VITALS: BMI 18.3
[2024-01-05] MEDS: ALBUTEROL 2.5 MG/3 ML NEB SOL NEB PRN ×2 (01:06→15:40)
[2024-01-05] MEDS: IPRATROPIUM BROM 0.5MG/2.5ML NEB PRN (01:07)
[2024-01-05] MEDS: HYDRALAZINE HCL 20 MG/ML VIAL IV PRN (01:49)
[2024-01-05] MEDS: ACETAMINOPHEN 325 MG TABLET PO PRN (03:27)
[2024-01-05 06:57] LABS: Absolute Lymphocytes (CBC) 1.4 K/uL (0.7-4.9); Absolute Monocytes 0.7 K/uL (0.1-1.3); Absolute Neutrophil 12.7 K/uL (1.8-8.0); Basophils % 0.3 % (0-1.3); Hematocrit 34.8 % (36.0-45.0); Hemoglobin 11.5 g/dL (12.0-15.0); Lymphocytes % 9.3 % (15.3-44.8); MCH 30.8 pg (27.0-35.0); MCHC 33.1 g/dL (32.0-36.0); MCV 93.2 fL (80-100); MPV 8.3 fL (7.6-11.3); Monocytes % 4.6 % (3.3-12.3); Neutrophils % 85.8 % (41.7-73.7); Platelets 233 thou/uL (152-406); RBC Red Blood Cell Count 3.73 M/uL (3.86-4.86); Red Cell Distribution Width 14.8 % (12.1-15.2)
[2024-01-05 07:34] LABS: Albumin 2.4 g/dL (3.4-5.0); Albumin/Globulin Ratio 0.7 (1.1-1.8); Anion Gap 7.2 mEq/L (5.0-15.0); Bilirubin Total 1.3 mg/dL (0.2-1.0); Globulin 3.5 g/dL (2.3-3.5); Potassium 4.2 mEq/L (3.5-5.1); Protein, Total 5.9 g/dL (6.4-8.2)
[2024-01-05 07:37] LABS: Band Neutrophils 1 % (0-1); Blood Morphology Comment NOT SEEN (NOT SEEN); Differential Total Cells Count 100; Lymphocytes 11 % (15-42); Monocytes 4 % (0-10); Platelet Estimate ADEQ; Segmented Neutrophils 84 % (40-80); White Blood Cell Scan OK (OK)
--- NOTE | 2024-01-05 07:57 | P.PN ---
Subjective Date of Service: 01/05/24 Chief Complaint: Fever, chills, shortness of breath, cough 68-year-old female with past medical history of chronic asthma on prednisone,, hypertension, anxiety, depression, history of pneumonia with septic shock, ADD, came in with fever and generalized weakness and anxiety. Patient has run out of her prednisone, Effexor, Xanax and other medications. Her fatigue, fever and generalized body aches been going on for the last 2 to 3 days. Noted to shortness of breath, have right lower lobe pneumonia, COPD exacerbation started on IV antibiotic Febrile T99, O2 93%, 2 L - Physical Exam General: Alert, Oriented x3, HEENT: Atraumatic, Normocephalic Neck: Supple, JVD not distended Respiratory: Diminished, Crackles/rales, Expiratory wheezes Cardiovascular: Regular rate/rhythm, Normal S1 S2 Capillary refill: <2 Seconds Gastrointestinal: Soft and benign, Non-distended, W/out hepatosplenomegaly Musculoskeletal: No clubbing, No swelling Integumentary: No rashes, No tenderness/swelling Neurological: Normal speech, Normal strength at 5/5 x4 extr Lymphatics: No axilla or inguinal lymphadenopathy Review of Systems Per HPI Physical Examination - Vital Signs Temperature: 99.2 F Blood Pressure: 178/67 Pulse: 99 Respirations: 17 Pulse Ox (%): 93 - Studies Laboratory Data (last 24 hrs) 01/04/24 01/04/24 01/04/24 14:52 14:52 14:52 WBC 13.90 H Hgb 13.0 Hct 40.1 Plt Count 243 PT 11.1 INR 1.01 APTT 24.9 Sodium 140 Potassium 3.7 BUN 12 Creatinine 1.15 H Glucose 99 Total Bilirubin 0.9 AST 45 H ALT 64 H Alkaline Phosphatase 95 Microbiology Data (last 24 hrs): 01/04/24 14:19 Throat Group A Streptococcus Rapid Screen - Final 01/04/24 14:19 Nasopharnyx Influenza Type A Antigen Screen - Final 01/04/24 14:19 Nasopharnyx Influenza Type B Antigen Screen - Final Assessment And Plan - Plan Assessment plan Acute hypoxic respiratory failure secondary to pneumonia, COPD exacerbation Pneumonia bilateral lobe IV antibiotics, nebs, steroids, Leukocytosis likely secondary from pneumonia Monitor CBC in a.m. Acute renal insufficiency Monitor renal parameters Monitor electrolytes and replace accordingly Transaminitis Elevated LFTs Will monitor LFTs in a.m. Hypertension Antihypertensives titrated Continue home medications and titrate as needed Hyperlipidemia Continue statin Depression/anxiety Continue home medications GI/DVT prophylaxis Advanced directive full code Critical Care: No Time Spent Managing PTS Care (In Minutes): 35
[2024-01-05] MEDS: VENLAFAXINE HCL XR 75 MG CAP PO SCH (08:11)
[2024-01-05] MEDS: PANTOPRAZOLE 40MG TABLET PO SCH (08:12)
[2024-01-05] MEDS: AMPHETAMINE PO SCH (08:12)
[2024-01-05] MEDS: DEXTROAMPHETAMINE PO SCH (08:12)
[2024-01-05] MEDS: predniSONE 10 MG TAB PO SCH (08:12)
[2024-01-05] MEDS: BUSPIRONE HCL 5 MG TABLET PO SCH (08:12)
[2024-01-05] MEDS: CEFTRIAXONE 1,000 MG in NA CHLORIDE 0.9% 50 ML IVPB SCH (16:57)
[2024-01-05] MEDS: AZITHROMYCIN IV 500 MG in NA CHLORIDE 0.9% 250 ML IVPB SCH (16:58)
[2024-01-05] MEDS: guaiFENesin 100 MG/5 ML UCUP PO PRN (16:58)
[2024-01-05] MEDS: BENZONATATE 100 MG CAP PO PRN (16:59)
[2024-01-05] MEDS: FLUTICASONE PO SCH (21:00)
[2024-01-05] MEDS: VILANTER PO SCH (21:00)
[2024-01-05] MEDS: UMECLIDIN PO SCH (21:00)
[2024-01-05] MEDS: DIAZEPAM 5 MG TABLET PO SCH (21:26)
--- NOTE | 2024-01-06 07:52 | P.PN ---
Subjective Date of Service: 01/07/24 Chief Complaint: Fever, chills, shortness of breath, cough Past medical history of asthma, she reports patient has run out of her prednisone, Effexor, Xanax and other medications. She reports fatigue, fever, generalized body aches been going on for the last 2 to 3 days. Shortness of breath with exertion, noted to have have right lower lobe pneumonia, started on IV antibiotics, nebs pulmonary consult will eval room air sats Review of Systems per HPI Physical Examination - Vital Signs Temperature: 98.3 F Blood Pressure: 156/68 Pulse: 98 Respirations: 18 Pulse Ox (%): 97 - Physical Exam General: Alert, Oriented x3, Mild distress HEENT: Atraumatic Neck: Supple Respiratory: Normal air movement, Diminished, Expiratory wheezes, Other (Dyspneic on exertion) Cardiovascular: Normal pulses, Regular rate/rhythm Gastrointestinal: Normal bowel sounds, Soft and benign Integumentary: No breakdown Neurological: Normal speech, Other (Mild anxiety) - Studies Microbiology Data (last 24 hrs): 01/04/24 14:19 Throat Group A Streptococcus Rapid Screen - Final 01/04/24 14:19 Throat Culture & Sensitivity - Final NORMAL UPPER RESPIRATORY NIKITA GROWN. Assessment And Plan - Plan Acute hypoxic respiratory failure secondary to pneumonia, COPD exacerbation History of severe obstructive asthma Pneumonia bilateral lobe IV antibiotics, nebs, steroids, Pulmonology consult Reports being out of her home medication Leukocytosis likely secondary from pneumonia Monitor CBC in a.m. Acute renal insufficiency Monitor renal parameters Monitor electrolytes and replace accordingly Transaminitis Elevated LFTs Will monitor LFTs in a.m. Hypertension Antihypertensives titrated Continue home medications and titrate as needed Hyperlipidemia Continue statin Depression/anxiety Continue home medications GI/DVT prophylaxis Advanced directive full code Disposition, home independent prior patient is discussing long term facility for short-term pulmonary rehab Discharge Plan: Home Time Spent Managing PTS Care (In Minutes): 35
--- NOTE | 2024-01-06 08:40 | P.CNS ---
Date of Consult: 01/06/24 Reason for Consult: Asthma exacerbation Chief Complaint: Shortness of breath fever and chills History of Present Illness: Patient is a 68 years of age with a history of severe obstructive asthma recurrent exacerbation underlying severe anxiety and depression has been out of medications for about a week has not refilled her antidepressants not using her trilogy at home came in with worse for the past 1 week complaining of fever chills cough shortness of breath Allergies aspirin Allergy (Intermediate, Verified 11/07/12 16:55) Anaphylaxis bacitracin [From Neosporin ([id number])] Allergy (Intermediate, Verified 11/07/12 16:55) aquino skin bacitracin zinc [From Neosporin ([id number])] Allergy (Intermediate, Verified 11/07/12 16:55) aquino skin diphenhydramine HCl [From Benadryl] Allergy (Intermediate, Verified 06/03/18 18:20) Hives neomycin sulfate [From Neosporin ([id number])] Allergy (Intermediate, Verified 11/07/12 16:55) aquino skin pentazocine lactate [From Talwin] Allergy (Intermediate, Verified 06/03/18 1 8:19) Itching polymyxin B [From Neosporin ([id number])] Allergy (Intermediate, Verified 11/07/12 16:55) aquino skin Neosporin ([id number]-pus-[id number]) Allergy (Uncoded 06/03/18 18:20) Itching NSAIDS Allergy (Uncoded 02/11/18 06:38) Unknown Home Medications: Albuterol Inhaler [Ventolin Inhaler*] 2 puff IN Q4H PRN 09/03/18 Venlafaxine HCl [Effexor XR] 1 tab PO DAILY 09/03/18 Pantoprazole [Protonix Tab*] 40 mg PO ACB #30 tab 09/04/18 Dextroamphetamine/Amphetamine [Adderall 10 mg Tablet] 1 tab PO DAILY 07/17/22 Fluticasone/Umeclidin/Vilanter [Trelegy Ellipta 100-62.5-25] 1 puff PO BEDTIME 07/17/22 predniSONE [Deltasone*] 10 mg PO DAILY 90 Days #90 tab 09/18/22 Buspirone HCl [Buspar*] 1 tab PO BID 01/04/24 diazePAM [Diazepam] 1 tab PO BEDTIME 01/04/24 - Past Medical/Surgical History Diabetic: No -: Asthma -: Depression -: Osteoporosis -: GERD with hiatal hernia -: Obesity -: Hypertension -: ADHD -: -: Tubal ligation -: cholecystectomy -: cataract surgery -: rt shoulder sx x2 -: sx on left knee Psychosocial/ Personal History: Patient is . She has 1 child. She is retired. - Family History Mother Medical History: Heart disease, Hypertension, Diabetes Father Medical History: Heart disease, Hypertension, Lung disease, Cancer, Other (see notes) Notes: asbestosis - Social History Smoking Status: Never smoker Alcohol use: No CD- Drugs: No Caffeine use: Yes Place of Residence: Home Review of Systems 10-point ROS is otherwise unremarkable General: Weakness Respiratory: Cough, Shortness of Breath Physical Examination Temp Pulse Resp BP Pulse Ox 98.7 F 98 H 21 H 144/62 H 93 01/06/24 08:00 01/06/24 08:00 01/06/24 08:00 01/06/24 08:00 01/06/24 08:00 General: Alert, In no apparent distress, Oriented x3 Respiratory: Diminished, Expiratory wheezes Cardiovascular: No edema, Regular rate/rhythm, Normal S1 S2 Gastrointestinal: Normal bowel sounds, Soft and benign Musculoskeletal: No clubbing, No swelling - Problems (1) Asthma exacerbation Onset Date: 06/06/18 Current Visit: No Status: Acute Plan: Patient is 68 years of age admitted with asthma exacerbation noncompliant with her medications at home add Brovana and scheduled ipratropium noncompliant with trilogy at home possible right lower lobe infiltrate white count is mildly elevated changed to p.o. levofloxacin patient has an infiltrate in the right l ower lobe CT scan reviewed Qualifiers: Asthma severity: moderate (2) Depression Current Visit: Yes Status: Acute Plan: Patient has underlying major anxiety/depression has been out of her medications will resume Effexor patient does take Xanax at home has been on it for a long time Qualifiers: Depression Type: major depressive disorder
[2024-01-06] MEDS: ARFORMOTEROL TARTRATE 15 MCG/2 ML VIAL.NEB NEB SCH (09:00)
[2024-01-06] MEDS: IPRATROPIUM BROM 0.5MG/2.5ML NEB SCH (09:00)
[2024-01-06] MEDS: ALPRAZOLAM 1 MG TABLET PO SCH (09:29)
[2024-01-06] MEDS: predniSONE 20 MG TAB PO SCH (09:29)
[2024-01-06] MEDS: levoFLOXacin 750 MG TAB PO SCH (09:29)
[2024-01-06] MEDS: ENOXAPARIN 30 MG/0.3 ML SQ SCH (09:30)
--- NOTE | 2024-01-06 12:16 | EKG ---
Test Date: 2024-01-04 Test Time: 14:15:48 Hospice Aide: LILLIAN MEASUREMENT RESULTS: Intervals: Rate: 109 IA: 132 QRSD: 104 QT: 354 QTc: 476 [place]: P: 72 IA: 132 QRS: 79 T: -47 INTERPRETIVE STATEMENTS: Sinus tachycardia ST & T wave abnormality, consider inferior ischemia Abnormal ECG Compared to ECG 09/30/2023 09:54:51 ST (T wave) deviation now present Possible ischemia now present Atrial premature complex(es) no longer present Left bundle-branch block no longer present Left ventricular hypertrophy no longer present Early repolarization no longer present Electronically Signed On 01-06-24 12:14:05 CDT by Jesus Santana
[2024-01-06 15:18] LABS: Absolute Lymphocytes (CBC) 0.5 K/uL (0.7-4.9); Absolute Monocytes 0.3 K/uL (0.1-1.3); Absolute Neutrophil 11.7 K/uL (1.8-8.0); Basophils % 0.2 % (0-1.3); Eosinophils % 0.1 % (0-4.4); Hematocrit 33.6 % (36.0-45.0); Hemoglobin 10.9 g/dL (12.0-15.0); Lymphocytes % 4.1 % (15.3-44.8); MCH 30.3 pg (27.0-35.0); MCHC 32.4 g/dL (32.0-36.0); MCV 93.5 fL (80-100); MPV 8.5 fL (7.6-11.3); Monocytes % 2.2 % (3.3-12.3); Neutrophils % 93.4 % (41.7-73.7); Platelets 226 thou/uL (152-406); RBC Red Blood Cell Count 3.59 M/uL (3.86-4.86); Red Cell Distribution Width 14.7 % (12.1-15.2)
[2024-01-06] MEDS: ALPRAZOLAM 0.5 MG TABLET PO ONE (15:28)
[2024-01-06 15:37] LABS: Albumin 2.3 g/dL (3.4-5.0); Albumin/Globulin Ratio 0.6 (1.1-1.8); Anion Gap 8.5 mEq/L (5.0-15.0); Bilirubin Total 0.4 mg/dL (0.2-1.0); Globulin 3.7 g/dL (2.3-3.5); Magnesium 2.1 mg/dL (1.6-2.4); Potassium 4.5 mEq/L (3.5-5.1)
[2024-01-06 16:15] LABS: Blood Morphology Comment NOT SEEN (NOT SEEN); Platelet Estimate ADEQ; White Blood Cell Scan OK (OK)
[2024-01-06] MEDS ORDERED: ALPRAZOLAM 1 MG TABLET PO ONE (18:16)
[2024-01-06] MEDS: QUETIAPINE 25 MG TAB PO SCH (20:56)
[2024-01-06] MEDS: ALPRAZOLAM 1 MG TABLET PO PRN (20:59)
[2024-01-06] MEDS ORDERED: ALPRAZOLAM 1 MG TABLET PO SCH (21:00)
[2024-01-08 04:00] LABS: Absolute Lymphocytes (CBC) 0.8 K/uL (0.7-4.9); Absolute Monocytes 0.5 K/uL (0.1-1.3); Absolute Neutrophil 10.6 K/uL (1.8-8.0); Basophils % 0.2 % (0-1.3); Hematocrit 33.5 % (36.0-45.0); Hemoglobin 11.3 g/dL (12.0-15.0); Lymphocytes % 7.1 % (15.3-44.8); MCH 31.2 pg (27.0-35.0); MCHC 33.7 g/dL (32.0-36.0); MCV 92.6 fL (80-100); MPV 8.1 fL (7.6-11.3); Monocytes % 4.3 % (3.3-12.3); Nucleated Red Blood Cells % 0.2 % (0-0); Platelets 314 thou/uL (152-406); RBC Red Blood Cell Count 3.61 M/uL (3.86-4.86); Red Cell Distribution Width 14.9 % (12.1-15.2)
[2024-01-08 04:04] LABS: Neutrophils % 88.4 % (41.7-73.7)
[2024-01-08 04:17] LABS: Anion Gap 7.3 mEq/L (5.0-15.0); Magnesium 2.7 mg/dL (1.6-2.4); Potassium 4.3 mEq/L (3.5-5.1)
--- NOTE | 2024-01-08 07:42 | P.PN ---
Date of Service: 01/07/24 Subjective Breathing improved, weaned to room air, uncontrolled anxiety, anxious about going home - Physical Exam - Vital Signs Reviewed - Physical Exam General: Alert, Oriented x3, HEENT: Atraumatic, Normocephalic Neck: Supple, JVD not distended Respiratory: Diminished, mild dyspnea with exertion Cardiovascular: Regular rate/rhythm, Normal S1 S2 Capillary refill: <2 Seconds Musculoskeletal: No clubbing, No swelling Integumentary: No rashes, No tenderness/swelling Neurological: Normal speech, Lymphatics: No axilla or inguinal lymphadenopathy Assessment And Plan Assessment plan Acute hypoxic respiratory failure secondary to pneumonia, COPD exacerbation improved Pneumonia bilateral lobe IV antibiotics, nebs, steroids, Weaned to room air pulmonary following Leukocytosis likely secondary from pneumonia improved Monitor CBC in a.m. Acute renal insufficiency Monitor renal parameters Monitor electrolytes and replace accordingly Anxiety depression Insomnia Resume p.o. Effexor, as needed Seroquel for sleep Transaminitis Elevated LFTs Will monitor LFTs in a.m. Hypertension Antihypertensives titrated Continue home medications and titrate as needed Hyperlipidemia Continue statin Depression/anxiety Continue home medications GI/DVT prophylaxis Advanced directive full code Critical Care: No Time Spent Managing PTS Care (In Minutes): 35
--- NOTE | 2024-01-08 07:48 | P.DS ---
Admission Date: 01/04/24 Discharge Date: 01/08/24 Disposition: DC HOME/HOME HEALTH CARE Discharge Condition: GOOD Reason for Admission: Fever, chills, shortness of breath, cough Brief History of Present Illness: 68-year-old female with past medical history of chronic asthma on prednisone,, hypertension, anxiety, depression, history of pneumonia with septic shock, ADD, came in with fever and generalized weakness and anxiety. Patient has run out of her prednisone, Effexor, Xanax and other medications. Her fatigue, fever and generalized body aches been going on for the last 2 to 3 days. She denies any headache, chest pain, shortness of breath, abdominal pain, vomiting, diarrhea, dysuria, urinary frequency. No known sick contacts, travel history. Also complains of shortness of breath with occasional wheezing and cough. Cough is nonproductive with no hemoptysis. Denies any chest pain. No rhinorrhea. Patient was assessed in the ER and had a workup which was consistent with right lower lobe pneumonia and possible ileus and was admitted for further - Physical Exam General: Alert, Oriented x3, HEENT: Atraumatic, Normocephalic Neck: Supple, JVD not distended Respiratory: Diminished, Cardiovascular: Regular rate/rhythm, Normal S1 S2 Capillary refill: <2 Seconds Gastrointestinal: Soft and benign, Non-distended, Musculoskeletal: No clubbing, No swelling Integumentary: No rashes, No tenderness/swelling Neurological: Normal speech, Normal strength at 5/5 x4 extr Lymphatics: No axilla or inguinal lymphadenopathy Hospital Course: 68-year-old female with past medical history of chronic asthma on prednisone,, hypertension, anxiety, depression, history of pneumonia with septic shock, ADD, came in with fever and generalized weakness and anxiety. Patient has run out of her prednisone, Effexor, Xanax and other medications. Medications refilled prior to the discharge, she was noted to have right lower lobe pneumonia, treated with IV antibiotics, nebs, oxygen. O2 remains on room air, plan to discharge home with home health, follow-up with PCP, pulmonary in 1 to 2 weeks Assessment Pneumonia History of severe asthma was evaluated by pulmonary, weaned to room air prior to discharge Uncontrolled anxiety depression medication refill Insomnia Seroquel added for sleep Chest x-ray while inpatient MPRESSION: Patchy right basilar airspace opacity, which may reflect atelectasis or pneumonia. CT abdomen Right basal lower lobe and middle lobe airspace opacities, concerning for pneumonia Continue home medicines as previously prescribed GOAL: Clear understanding of disease process INSTRUCTIONS: Physician Discharge Instructions: -Follow-up with PCP in 1 to 2 weeks -Please call Dr. Cervantes at [phone] if any questions regarding hospital stay -Please call nursing station at [phone] if any nursing or medication questions -Return to the emergency room if symptoms worsen Diet: ADA, low sodium Activity: Fall precautions Vital Signs/Physical Exam: Temp Pulse Resp BP Pulse Ox 98 F 92 H 20 157/66 H 95 01/08/24 04:00 01/08/24 04:00 01/08/24 04:00 01/08/24 04:00 01/08/24 04:00 Laboratory Data at Discharge: WBC 12.00 thou/uL (4.3-10.9) H 01/08/24 02:52 Hgb 11.3 g/dL (12.0-15.0) L 01/08/24 02:52 Hct 33.5 % (36.0-45.0) L 01/08/24 02:52 Plt Count 314 thou/uL (152-406) 01/08/24 02:52 PT 11.1 SECONDS (9.5-12.5) 01/04/24 14:52 INR 1.01 01/04/24 14:52 APTT 24.9 SECONDS (24.3-36.9) 01/04/24 14:52 Sodium 139 mEq/L (136-145) 01/08/24 02:56 Potassium 4.3 mEq/L (3.5-5.1) 01/08/24 02:56 BUN 23 mg/dL (7-18) H 01/08/24 02:56 Creatinine 1.26 mg/dL (0.55-1.02) H 01/08/24 02:56 Glucose 128 mg/dL (74-106) H 01/08/24 02:56 Magnesium 2.7 mg/dL (1.6-2.4) H 01/08/24 02:56 Total Bilirubin 0.4 mg/dL (0.2-1.0) 01/06/24 14:54 AST 27 U/L (15-37) 01/06/24 14:54 ALT 91 U/L (13-56) H 01/06/24 14:54 Alkaline Phosphatase 103 U/L (45-117) 01/06/24 14:54 Home Medications: Albuterol Inhaler [Ventolin Inhaler*] 2 puff IN Q4H PRN 09/03/18 Venlafaxine HCl [Effexor XR] 1 tab PO DAILY 09/03/18 Pantoprazole [Protonix Tab*] 40 mg PO ACB #30 tab 09/04/18 Dextroamphetamine/Amphetamine [Adderall 10 mg Tablet] 1 tab PO DAILY 07/17/22 Fluticasone/Umeclidin/Vilanter [Trelegy Ellipta 100-62.5-25] 1 puff PO BEDTIME 07/17/22 predniSONE [Deltasone*] 10 mg PO DAILY 90 Days #90 tab 09/18/22 Buspirone HCl [Buspar*] 1 tab PO BID 01/04/24 diazePAM [Diazepam] 1 tab PO BEDTIME 01/04/24 Albuterol Neb [Proventil 0.083% Neb Soln] 2.5 mg NEB [id number] PRN #60 amp 01/07/24 Alprazolam [Xanax] 1 mg PO BID PRN #60 tab 01/07/24 Arformoterol Tartrate [Brovana] 15 mcg NEB BIDRESP #60 vial.neb 01/07/24 Benzonatate [Tessalon Perle*] 100 mg PO TID PRN #60 cap 01/07/24 Ipratropium Neb [Atrovent*] 0.5 mg NEB [id number] #60 amp 01/07/24 Nebulizer 1 each MC DAILY #1 ea 01/07/24 Nebulizer Accessories [Aeroneb Go] 1 each MC DAILY #1 ea 01/07/24 Quetiapine [Seroquel*] 25 mg PO BEDTIME #30 tab 01/07/24 levoFLOXacin [Levaquin*] 750 mg PO DAILY #5 tab 01/07/24 predniSONE [Prednisone*] 20 mg PO BID #30 tab 01/07/24 New Medications: Nebulizer Accessories [Aeroneb Go] 1 each MC DAILY #1 ea Ipratropium Neb [Atrovent*] 0.5 mg NEB [id number] #60 amp Arformoterol Tartrate [Brovana] 15 mcg NEB BIDRESP #60 vial.neb levoFLOXacin [Levaquin*] 750 mg PO DAILY #5 tab Nebulizer 1 each MC DAILY #1 ea predniSONE [Prednisone*] 20 mg PO BID #30 tab Albuterol Neb [Proventil 0.083% Neb Soln] 2.5 mg NEB [id number] PRN #60 amp PRN Reason: Shortness Of Breath Quetiapine [Seroquel*] 25 mg PO BEDTIME #30 tab Benzonatate [Tessalon Perle*] 100 mg PO TID PRN #60 cap PRN Reason: Cough Alprazolam [Xanax] 1 mg PO BID PRN #60 tab PRN Reason: Anxiety Physician Discharge Instructions: -DC IV and DC home -Follow-up with PCP in 1 to 2 weeks -Follow-up with pulmonary in 1 to 2 weeks -Please call Dr. Cervantes at [phone] if any questions regarding hospital stay -Please call nursing station at [phone] if any nursing or medication questions -Return to the emergency room if symptoms worsen Diet: AHA Activity: Fall precautions Followup: Shannan Norwood MD [Primary Care Provider] - Time spent managing pt's care (in minutes): 55
[2024-01-08 09:03] VITALS: BP 159/69; TEMP 97; O2SAT 93
--- NOTE | 2024-01-08 10:26 | P.PN ---
Subjective Date of Service: 01/08/24 Chief Complaint: Right lower lobe pneumonia asthma exacerbation Patient is doing much better no new complaints Review of Systems General: Weakness Respiratory: Shortness of Breath Physical Examination - Vital Signs Temperature: 97.0 F Blood Pressure: 159/69 Pulse: 106 Respirations: 20 Pulse Ox (%): 96 - Physical Exam General: Alert, In no apparent distress, Oriented x3 Respiratory: Expiratory wheezes Cardiovascular: No edema, Regular rate/rhythm, Normal S1 S2 Assessment And Plan - Current Problems (Diagnosis) (1) Asthma exacerbation Onset Date: 06/06/18 Current Visit: No Status: Acute Plan: Patient is 68 years of age admitted with asthma exacerbation doing well advised her to use a long-acting bronchodilator on a scheduled basis either Advair or Trelegy he uses prednisone and Trelegy on a as needed basis labs chemistries reviewed creatinine is mildly elevated stable for discharge to follow-up with me as an outpatient Qualifiers: Asthma severity: moderate (2) Depression Current Visit: Yes Status: Acute Plan: Patient has underlying major anxiety/depression has been out of her medications will resume Effexor patient does take Xanax at home has been on it for a long time Qualifiers: Depression Type: major depressive disorder
== END 2024-01-08 10:55 | disposition home health service (06) | DRG 193 ==
LOC: ER 13:57 → ERHOLD 18:26 → 2ND 19:03
PROVIDERS: ADMIT Family Medicine; ATTEND Hospitalist
DX: J18.9 Pneumonia, unspecified organism (principal); J96.01 Acute respiratory failure with hypoxia; J44.0 Chronic obstructive pulmonary disease with (acute) lower respiratory infection; Z68.1 Body mass index [BMI] 19.9 or less, adult; J44.1 Chronic obstructive pulmonary disease with (acute) exacerbation; J45.901 Unspecified asthma with (acute) exacerbation; E66.9 Obesity, unspecified; I10 Essential (primary) hypertension; F41.1 Generalized anxiety disorder; E78.5 Hyperlipidemia, unspecified; N28.9 Disorder of kidney and ureter, unspecified; F32.9 Major depressive disorder, single episode, unspecified; M81.0 Age-related osteoporosis without current pathological fracture; R79.89 Other specified abnormal findings of blood chemistry; R74.01 Elevation of levels of liver transaminase levels; Z88.6 Allergy status to analgesic agent; Z63.5 Disruption of family by separation and divorce; Z98.51 Tubal ligation status; Z79.52 Long term (current) use of systemic steroids; Z79.01 Long term (current) use of anticoagulants; Z79.82 Long term (current) use of aspirin; Z90.49 Acquired absence of other specified parts of digestive tract; Z11.52 Encounter for screening for COVID-19; Z79.899 Other long term (current) drug therapy; Z87.891 Personal history of nicotine dependence; Z91.148 Patient's other noncompliance with medication regimen for other reason
CPT/HCPCS: 36415; 71045; 74176; 76377; 80048; 80053; 81001; 83605; 83735; 83880; 85025; 85610; 85730; 87040; 87070; 87081; 87804; 87811; 93005; 94640; 96365; 96366; 96367; 96375; 97116; 97161; 99285; J0360; J0696; J1650; J2405; J7030; J7040; J7050; J7512; J7605; J7613; J7644

== ENCOUNTER 2024-01-20 13:06 | Emergency (ER) | payer OTHER ==
--- NOTE | 2024-01-20 15:02 | RAD REPORT ---
EXAM DESCRIPTION: RAD - Foot Left 3 View - 01/20/2024 2:27 pm CLINICAL HISTORY: Left Foot pain FINDINGS: Nondisplaced fracture base of the fifth metatarsal. No dislocation Osteoporosis. Hallux valgus deformity
--- NOTE | 2024-01-20 15:24 | ER ---
Nurse's Notes [facility] Name: Irma Cain Age: 68 yrs Sex: Female : 1955 Arrival Date: 01/20/2024 Time: 13:06 Bed DIS5 Private MD: Diagnosis: Nondisplaced fracture of fifth metatarsal bone, left foot Presentation: 01/19 13:31 Chief complaint: Patient states: L lateral foot pain for 5 days. States she might have ll1 hit it on something. Coronavirus screen: Client denies travel out of the [place] in the last 14 days. At this time, the client does not indicate any symptoms associated with coronavirus-19. Ebola Screen: Patient denies travel to an Ebola-affected area in the 21 days before illness onset. Initial Sepsis Screen: Does the patient meet any 2 criteria? No. Patient's initial sepsis screen is negative. Does the patient have a suspected source of infection? No. Patient's initial sepsis screen is negative. Risk Assessment: Do you want to hurt yourself or someone else? Patient reports no desire to harm self or others. Onset of symptoms was January 16, 2024. 13:31 Method Of Arrival: Ambulatory ll1 13:31 Acuity: FELA 4 ll1 Triage Assessment: 13:31 General: Appears uncomfortable, Behavior is calm, cooperative, appropriate for age. ll1 Pain: Complains of pain in left foot Quality of pain is described as aching, throbbing. Musculoskeletal: Reports pain in left foot. Injury Description: Bruise. Historical: - Allergies: 13:26 Aspirin; ll1 13:26 Benadryl; ll1 13:26 Ibuprofen; ll1 13:26 Neosporin ([id number]); ll1 13:26 Talwin; ll1 - PMHx: 13:26 ADD/ADHD; Anxiety; Asthma; depressive disorder; Hypertensive disorder; UNMEDICATED; ll1 Pneumonia; - PSHx: 13:26 Cholecystectomy; ll1 - Immunization history:: Adult Immunizations up to date. - Infectious Disease History:: Denies. - Social history:: Smoking status: Smoking status: unknown. Vital Signs: 13:31 BP 183 / 92; Pulse 98; Resp 16; Temp 97.4; Pulse Ox 96% ; Pain 9/10; ll1 13:31 Pain Scale: Adult ll1 ED Course: 13:12 Patient arrived in ED. mr 13:22 [facility]ress[facility] Champion [facility]C [facility] kb 13:22 Anna Lord MD is Attending Physician. kb 13:26 Arm band placed on. ll1 13:32 Triage completed. ll1 14:29 Foot Left 3 View XRAY In Process Unspecified. EDMS 15:52 Olegario Roque, RN is Primary Nurse. jl7 15:53 Patient has correct armband on for positive identification. jl7 15:53 Provided Education on: d/c. jl7 15:53 No provider procedures requiring assistance completed. Patient did not have IV access jl7 during this emergency room visit. Administered Medications: No medications were administered Outcome: 15:23 Discharge ordered by . kb 15:52 Patient left the ED. jl7 15:53 Discharged to home ambulatory, jl7 15:53 Condition: stable 15:53 Discharge instructions given to patient, Instructed on discharge instructions, follow up and referral plans. Demonstrated understanding of instructions, follow-up care, Signatures: Dispatcher [employer] EDNM Andressa Champion FNP-C COMPUTER EDUCATION TEACHER-Ckb Amy Lombardi, Reg Reg mr Olegario Roque, RN RN jl7 Mckay Browne, RN RN ll1
--- NOTE | 2024-01-20 15:24 | EDPHYS ---
Physician Documentation [facility] Name: Irma Cain Age: 68 yrs Sex: Female : 1955 Arrival Date: 01/20/2024 Time: 13:06 Bed DIS5 Private MD: ED Physician Anna Lord HPI: 01/19 14:16 This 68 yrs old Female presents to ER via Ambulatory with complaints of Foot Injury. kb 14:16 Patient is a 68-year-old female who presents for left foot pain that started 5 days kb ago. Denies any known injury or trauma. States she has had several stress fractures in her feet in the past due to osteoporosis. Reports pain is to lateral aspect of left foot with tenderness. Pain worse with walking. Historical: - Allergies: 13:26 Aspirin; ll1 13:26 Benadryl; ll1 13:26 Ibuprofen; ll1 13:26 Neosporin ([id number]); ll1 13:26 Talwin; ll1 - PMHx: 13:26 ADD/ADHD; Anxiety; Asthma; depressive disorder; Hypertensive disorder; UNMEDICATED; ll1 Pneumonia; - PSHx: 13:26 Cholecystectomy; ll1 - Immunization history:: Adult Immunizations up to date. - Infectious Disease History:: Denies. - Social history:: Smoking status: Smoking status: unknown. ROS: 14:16 Constitutional: As per HPI kb Exam: 14:16 Constitutional: This is a well developed, well nourished patient who is awake, alert, kb and in no acute distress. Head/Face: Normocephalic, atraumatic. ENT: Moist Mucous membranes Cardiovascular: Regular rate Respiratory: Respirations even and unlabored. No increased work of breathing. Talking in full sentences Skin: Warm, dry with normal turgor. Normal color. Neuro: Awake and alert, GCS 15, oriented to person, place, time, and situation. Moves all extremities. Normal gait. 14:16 Musculoskeletal/extremity: Extremities: grossly normal except: noted in the lateral side of left foot: pain, tenderness, ROM: intact in all extremities, Circulation is intact in all extremities. Sensation intact. Weight bearing: able to fully bear weight, Vital Signs: 13:31 BP 183 / 92; Pulse 98; Resp 16; Temp 97.4; Pulse Ox 96% ; Pain 9/10; ll1 13:31 Pain Scale: Adult ll1 MDM: 13:22 Patient medically screened. kb 14:17 Differential diagnosis: closed fracture, Sprain, strain. Data reviewed: vital signs, kb nurses notes. 15:21 Counseling: I had a detailed discussion with the patient and/or guardian regarding the kb historical points, exam findings, and any diagnostic results supporting the discharge/admit diagnosis, radiology results, the need for outpatient follow up, a orthopedic surgeon, to return to the emergency department if symptoms worsen or persist or if there are any questions or concerns that arise at home. 01/19 13:33 Order name: Foot Left 3 View XRAY; Complete Time: 15:03 kb 01/19 15:04 Order name: Ready for Discharge- Return to ED; Complete Time: 15:52 kb 01/19 15:21 Order name: Post-op Orthopedic Shoe; Complete Time: 15:52 kb Administered Medications: No medications were administered Disposition: 18:11 I agree with the assessment and plan of care. I reviewed the patient's care provided by [facility] the Advanced Practice Provider and agree with the diagnosis and treatment plan. Disposition Summary: 01/20/24 15:23 Discharge Ordered Notes: Location: Home kb Condition: Stable kb Diagnosis - Nondisplaced fracture of fifth metatarsal bone, left foot kb Followup: kb - With: Emergency Department - When: As needed - Reason: Worsening of condition Followup: kb - With: Private Physician - When: 2 - 3 days - Reason: Recheck today's complaints, Continuance of care, Re-evaluation by your physician Discharge Instructions: - Discharge Summary Sheet kb - Metatarsal Fracture kb Forms: - Medication Reconciliation Form kb - Antibiotic Education kb - Prescription Opioid Use kb - Patient Portal Instructions kb - Leadership Thank You Letter kb Signatures: Dispatcher [employer] Andressa Padilla FNP-C FNP-Mckay Talavera, RN RN ll1 Anna Lord MD MD gb1
[2024-01-20 16:20] VITALS: BP 183/92; TEMP 97.4; O2SAT 96
== END 2024-01-20 15:52 | disposition home or self-care (01) ==
LOC: ER 13:06
DX: S92.355A Nondisplaced fracture of fifth metatarsal bone, left foot, initial encounter for closed fracture (principal); I10 Essential (primary) hypertension; J45.909 Unspecified asthma, uncomplicated; Z88.8 Allergy status to other drugs, medicaments and biological substances
CPT/HCPCS: 99282

== ENCOUNTER 2024-03-28 17:51 | Inpatient (IN) | payer OTHER ==
[2024-03-28 20:44] LABS: Absolute Basophils 0.1 K/uL (0-0.5); Absolute Lymphocytes (CBC) 2.7 K/uL (0.7-4.9); Absolute Monocytes 1.1 K/uL (0.1-1.3); Absolute Neutrophil 17.2 K/uL (1.8-8.0); Basophils % 0.4 % (0-1.3); Hematocrit 44.3 % (36.0-45.0); Hemoglobin 14.1 g/dL (12.0-15.0); MCH 30.4 pg (27.0-35.0); MCHC 31.8 g/dL (32.0-36.0); MCV 95.6 fL (80-100); MPV 7.3 fL (7.6-11.3); Monocytes % 5.1 % (3.3-12.3); Neutrophils % 81.5 % (41.7-73.7); Nucleated Red Blood Cells % 0.1 % (0-0); Platelets 263 thou/uL (152-406); RBC Red Blood Cell Count 4.63 M/uL (3.86-4.86); Red Cell Distribution Width 15.5 % (12.1-15.2)
[2024-03-28] MEDS ORDERED: MORPHINE 2 MG/ML SYR ONE ×2 (20:44→22:30)
[2024-03-28 21:01] LABS: ALT/SGPT 21 U/L (13-56); AST/SGOT 17 U/L (15-37); Albumin 3.1 g/dL (3.4-5.0); Albumin/Globulin Ratio 0.9 (1.1-1.8); Alkaline Phosphatase 79 U/L (45-117); BUN Blood Urea Nitrogen 17 mg/dL (7-18); Bicarbonate 25 mEq/L (21-32); Bilirubin Direct < 0.2 mg/dL (0-0.2); Bilirubin Indirect, Calculated 0.2 mg/dL (0.2-0.8); Bilirubin Total 0.4 mg/dL (0.2-1.0); Globulin 3.6 g/dL (2.3-3.5); Glomerular Filtration Rate 74 ml/min (=/>90); Glucose Level 91 mg/dL (74-106); Magnesium 2.2 mg/dL (1.6-2.4); Protein, Total 6.7 g/dL (6.4-8.2); Sodium Level 139 mEq/L (136-145); Troponin High Sensitivity 9.3 pg/mL (<58.9)
[2024-03-28 21:31] LABS: PT Prothrombin Time 10.6 SECONDS (9.4-12.5); PTT, Activated Partial Thromb 24.7 SECONDS (24.3-36.9); Protime INR 0.94
--- NOTE | 2024-03-28 21:40 | RAD REPORT ---
EXAM DESCRIPTION: CT - Head Brain Wo Cont - 03/28/2024 9:32 pm CLINICAL HISTORY: Pain;Syncope;Trauma COMPARISON: <Comparisons> TECHNIQUE: All CT scans are performed using dose optimization technique as appropriate and may inclu de automated exposure control or mA/KV adjustment according to patient size. FINDINGS: No intracranial hemorrhage, hydrocephalus or extra-axial fluid collection.Mild generalized brain atrophy is present with mild periventricular and deep white matter chronic microvascular ische tali changes.No areas of brain edema or evidence of midline shift. Moderate polypoid mucosal thickening of several paranasal sinuses with bony thickening compatible wit h chronic sinusitis. The calvarium is intact. IMPRESSION: No acute intracranial abnormality.
--- NOTE | 2024-03-28 21:42 | RAD REPORT ---
EXAM DESCRIPTION: CT - C Spine Wo Con - 03/28/2024 9:32 pm CLINICAL HISTORY: NECK PAIN COMPARISON: <Comparisons> FINDINGS: The cervical vertebral body heights and disc spaces are maintained. Mild lower cervical sp ondylosis. No evidence of acute cervical spine fracture or subluxation. Prevertebral soft tissues are normal in thickness. Mild vertebral atherosclerosis. IMPRESSION: Negative for acute cervical spine abnormality. All CT scans are performed using dose optimization technique as appropriate and may include automated exposure control or mA/KV adjustment according to patient size.
--- NOTE | 2024-03-28 21:47 | RAD REPORT ---
EXAM DESCRIPTION: CT - Chest Abdomen Pelvis W Cont - 03/28/2024 9:32 pm CLINICAL HISTORY: Chest and abdomen pain. Pain;Trauma COMPARISON: Chest Abdomen Pelvis W Cont dated 07/16/2022 TECHNIQUE: Approximately 100 mL nonionic IV contrast was administered to the patient. All CT scans are performed using dose optimization technique as appropriate and may include automated exposure control or mA/KV adjustment according to patient size. FINDINGS: Small nodules are present in the posterior right upper lobe largest measuring 4 mm. 3.3 x 1.9 cm soft tissue mass is seen abutting the posterior mediastinum superior posterior to the left hil um.The lungs are otherwise clear.No pleural or pericardial effusion.No intrathoracic adenopathy.Small hiatal hernia. Cholecystectomy clips. The liver, spleen, pancreas, adrenal glands and kidneys are within normal limits. No bowel obstruction, free air, free fluid or abscess. Normal appendix. Sigmoid diverticulosis coli w ithout diverticulitis. No pathologic lymphadenopathy in the abdomen or pelvis. No worrisome osseous finding. IMPRESSION: Irregular mass lesion along the left posterior hilar region abutting the posterior media stinal pleura suspicious for neoplasia. Elsewhere, no acute findings seen.
[2024-03-28 22:06] LABS: Band Neutrophils 3 % (0-1); Differential Total Cells Count 100; Lymphocytes 17 % (15-42); Monocytes 5 % (0-10); Nucleated Red Blood Cells 1 /100WBC; Segmented Neutrophils 75 % (40-80)
[2024-03-28 22:07] LABS: Blood Morphology Comment NOT SEEN (NOT SEEN); Platelet Estimate ADEQ
--- NOTE | 2024-03-28 22:07 | RAD REPORT ---
EXAM DESCRIPTION: RAD - Elbow Left 3 View - 03/28/2024 10:01 pm CLINICAL HISTORY: PAIN COMPARISON: <Comparisons> FINDINGS: No evidence of fracture or dislocation.
[2024-03-28 22:39] LABS: Specific Gravity > 1.030 (1.005-1.030); Sqamous Epithelial <5 /HPF (None Seen); Urine Bacteria None Seen /HPF (<20); Urine Bilirubin NEGATIVE (Negative); Urine Blood Negative (Negative); Urine Clarity Clear (Clear); Urine Color Light-Yellow (Yellow); Urine Crystals Unidentified Few /HPF (None Seen); Urine Culture Reflex Order NOT NEEDED; Urine Glucose NEGATIVE (Negative); Urine Ketones NEGATIVE (Negative); Urine Microscopic Reflex YN ORDER UMIC; Urine Mucus Slight /HPF (None Seen); Urine Nitrite NEGATIVE (Negative); Urine Protein NEGATIVE (Negative); Urine Urobilinogen Normal (Normal); Urine WBC <5 /HPF (<5); Urine Yeast (Budding) Trace /HPF (None Seen); Urine pH 5.5 (5.0-7.0)
--- NOTE | 2024-03-28 22:51 | EDPHYS ---
Physician Documentation [facility] Name: Irma Cain Age: 69 yrs Sex: Female : 1955 Arrival Date: 03/28/2024 Time: 17:51 Bed 20 Private MD: ED Physician Patrice Vital HPI: 03/28 19:12 This 69 yrs old Female presents to ER via EMS with complaints of Fall Injury. 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 States she was standing in the kitchen and then woke up on the ground, possible syncope. Denies shortness of breath, chest pain. Reports long standing intermittent dizziness. . Historical: - Allergies: 18:44 Aspirin; tm6 18:44 Benadryl; tm6 18:44 Ibuprofen; tm6 18:44 Neosporin ([id number]); tm6 18:44 Talwin; tm6 - PMHx: 18:44 ADD/ADHD; Anxiety; Asthma; depressive disorder; Hypertensive disorder; UNMEDICATED; tm6 Pneumonia; - PSHx: 17:59 Cholecystectomy; tm6 - Immunization history:: Client reports receiving the 2nd dose of the Covid vaccine. - Infectious Disease History:: Denies. - Social history:: Smoking status: Patient denies any tobacco usage or history of. Patient/guardian denies using alcohol. ROS: 19:12 Constitutional: As per HPI kb Exam: 19:12 Constitutional: This is a well developed, well nourished patient who is awake, alert, kb and in no acute distress. Head/Face: Normocephalic, atraumatic. ENT: Moist Mucous membranes Cardiovascular: Regular rate Respiratory: Respirations even and unlabored. No increased work of breathing. Talking in full sentences Skin: Warm, dry with normal turgor. Normal color. MS/ Extremity: Pulses equal, no cyanosis. Neurovascular intact. Full, normal range of motion. Neuro: Awake and alert, GCS 15, oriented to person, place, time, and situation. Moves all extremities. Normal gait. 19:12 Abdomen/GI: Inspection: abdomen appears normal, Bowel sounds: normal, Palpation: soft, in all quadrants, moderate abdominal tenderness, in the right upper quadrant and right lower quadrant, 19:14 ECG was reviewed by the Attending Physician. kb Vital Signs: 18:41 BP 173 / 76; Pulse 100; Resp 19; Temp 98.1(O); Pulse Ox 95% on R/A; Weight 54.43 kg; tm6 Height 5 ft. 0 in. ; Pain 5/10; 19:08 BP 133 / 116; Pulse 89; Pulse Ox 92% on R/A; tm6 21:00 BP 165 / 76; Pulse 94; Resp 15; Pulse Ox 95% ; me1 22:00 BP 191 / 86; Pulse 99; Resp 17; Pulse Ox 93% on R/A; me1 23:00 BP 139 / 83; Pulse 98; Resp 16; Pulse Ox 93% on R/A; me1 23:45 BP 155 / 89; Pulse 102; Resp 14; Pulse Ox 92% on R/A; me1 03/29 01:00 BP 157 / 71; Pulse 99; Resp 16; Pulse Ox 91% on R/A; jb4 02:00 BP 149 / 83; Pulse 98; Resp 16; Pulse Ox 94% on R/A; jb4 03:00 BP 159 / 68; Pulse 99; Resp 16; Pulse Ox 92% on R/A; jb4 03/28 18:41 Body Mass Index 23.44 (54.43 kg, 152.4 cm) tm6 03/28 18:41 Pain Scale: Adult tm6 MDM: 03/28 17:59 Patient medically screened. kb 22:50 Differential diagnosis: closed head injury, contusion, fracture, syncope, seizure. Data kb reviewed: vital signs, nurses notes. Consideration of Admission/Observation Patient was admitted/placed on observation. Escalation of care including admission/observation considered. Management of patient was discussed with the following: Hospitalist: Dr Jara accepts pt for admission. 22:50 Historians other than the Patient: EMS: [facility]. Counseling: I had a detailed kb discussion with the patient and/or guardian regarding the historical points, exam findings, and any diagnostic results supporting the discharge/admit diagnosis, lab results, radiology results, the need for further work-up and treatment in the hospital. 03/28 18:05 Order name: Basic Metabolic Panel; Complete Time: 21:05 kb 03/28 18:05 Order name: CBC with Diff; Complete Time: 22:09 kb 03/28 18:05 Order name: Hepatic Function; Complete Time: 21:05 kb 03/28 18:05 Order name: Magnesium; Complete Time: 21:05 kb 03/28 18:05 Order name: Protime (+inr); Complete Time: 21:41 kb 03/28 18:05 Order name: Ptt, Activated; Complete Time: 21:41 kb 03/28 18:05 Order name: Troponin High Sensitivity; Complete Time: 21:05 kb 03/28 18:05 Order name: Urinalysis w/ reflexes; Complete Time: 22:39 kb 03/28 22:06 Order name: Manual Differential; Complete Time: 22:09 EDMS 03/29 02:04 Order name: Urinalysis w/ reflexes EDMS 03/29 02:04 Order name: CBC with Automated Diff EDMS 03/29 02:04 Order name: CBC with Automated Diff EDMS 03/29 02:04 Order name: Comprehensive Metabolic Panel EDMS 03/29 02:04 Order name: Comprehensive Metabolic Panel EDMS 03/29 02:44 Order name: CREATININE WHOLE BLOOD EDMS 03/28 18:05 Order name: CT Chest, Abdomen, Pelvis - W/Contrast; Complete Time: 21:51 kb 03/28 18:22 Order name: C Spine Wo Con; Complete Time: 21:44 EDMS 03/28 18:22 Order name: Head Brain Wo Cont; Complete Time: 21:41 EDMS 03/28 21:40 Order name: Elbow Left 3 View XRAY; Complete Time: 22:09 kb 03/29 02:04 Order name: Echo with Doppler EDMS 03/29 02:04 Order name: Carotid Artery Bilateral EDMS 03/28 18:05 Order name: EKG; Complete Time: 18:06 kb 03/29 02:04 Order name: EKG Electrocardiogram EDMS 03/29 02:04 Order name: EKG Electrocardiogram EDMS 03/28 18:05 Order name: Cardiac monitoring; Complete Time: 19:10 kb 03/28 18:05 Order name: EKG - Nurse/Tech; Complete Time: 19:10 kb 03/28 18:05 Order name: IV Saline Lock; Complete Time: 19:10 kb 03/28 18:05 Order name: Labs collected and sent; Complete Time: 19:10 kb 03/28 18:05 Order name: NPO; Complete Time: 18:55 kb 03/28 18:05 Order name: O2 Per Protocol; Complete Time: 18:48 kb 03/28 18:05 Order name: O2 Sat Monitoring; Complete Time: 18:48 kb 03/28 19:31 Order name: Misc. Order: RECOLLECT ALL LABS; Complete Time: 21:37 rv1 03/28 21:51 Order name: Misc. Order: obtain urine please; Complete Time: 22:26 kb 03/28 22:10 Order name: Vital Signs; Complete Time: 22:26 kb EC:14 Rate is 90 beats/min. Rhythm is regular. QRS Carrie is Normal. CT interval is normal at kb 138 msec. QRS interval is normal at 76 msec. QT interval is normal at 450 msec. Administered Medications: 22:35 Drug: morphine IVP or IV 2 mg IVP once over 4 mins Route: IVP; Infused Over: 4 mins; me1 Site: right wrist; 23:19 Follow up: Response: No adverse reaction; Pain is decreased me1 Disposition Summary: 03/28/24 22:51 Hospitalization Ordered Notes: Hospitalization Status: Observation kb Provider: Kassy Jara Location: Telemetry/MedSurg (observation) kb Condition: Stable kb Problem: new kb Symptoms: are unchanged kb Bed/Room Type: Standard Room Assignment: 232(03/29/24 02:15) rv1 Diagnosis - Syncope kb - Elevated white blood cell count kb Forms: - Medication Reconciliation Form kb - SBAR form kb - Leadership Thank You Letter kb Addendum: 04/02/2024 08:51 Co-signature as Attending Physician, Patrice Vital MD I reviewed the patient's care r t provided by the Advanced Practice Provider and agree with the diagnosis and treatment plan. Signatures: Dispatcher [employer] EDSC Andressa Champion, RESTORATION TECHNICIAN-C RESTORATION TECHNICIAN-Ckb Patrice Vital MD MD rt Lila Talley rv1 Eugenia Cloud, RN RN me1 Pretty Méndez RN RN tm6 Corrections: (The following items were deleted from the chart) 03/28 18:06 18:06 BASIC METABOLIC PANEL+C.LAB.BRZ ordered. EDMS EDMS 18:06 18:06 CBC+H.LAB.BRZ ordered. EDMS EDMS 18:06 18:06 HEPATIC FUNCTION+C.LAB.BRZ ordered. EDMS EDMS 18: 18:06 MAGNESIUM+C.LAB.BRZ ordered. EDMS EDMS 18: 18:06 PROTIME (+INR)+COAG.LAB.BRZ ordered. EDMS EDMS 18: 18:06 PTT, ACTIVATED+COAG.LAB.BRZ ordered. EDMS EDMS 18: 18:06 Troponin High Sensitivity+C.LAB.BRZ ordered. EDMS EDMS 18: 18:06 Urinalysis+U.LAB.BRZ ordered. EDMS EDMS 18: 18:06 Head C Spine MPR Wo Con+CT.RAD.BRZ ordered. EDMS EDMS 03/29 02:15 03/28 22:51 kb rv1
--- NOTE | 2024-03-28 22:51 | ER ---
Nurse's Notes [facility] Name: Irma Cain Age: 69 yrs Sex: Female : 1955 Arrival Date: 03/28/2024 Time: 17:51 Bed 20 Private MD: Diagnosis: Syncope;Elevated white blood cell count Presentation: 03/28 18:41 Chief complaint: EMS states: patient fell in kitchen, but doesn't remember falling. tm6 States she was standing up and just fell. Patient reports getting dizzy sometimes. Patient complaining of pain in L ribs, L arm. Has a small lump on left side of head and small skin tear on left elbow. Coronavirus screen: Vaccine status: Patient reports receiving the 2nd dose of the covid vaccine. Ebola Screen: Patient negative for fever greater than or equal to 101.5 degrees Fahrenheit, and additional compatible Ebola Virus Disease symptoms Patient denies exposure to infectious person. Patient denies travel to an Ebola-affected area in the 21 days before illness onset. No symptoms or risks identified at this time. Initial Sepsis Screen: Does the patient meet any 2 criteria? HR > 90 bpm. No. Patient's initial sepsis screen is negative. Does the patient have a suspected source of infection? No. Patient's initial sepsis screen is negative. Risk Assessment: Do you want to hurt yourself or someone else? Patient reports no desire to harm self or others. Onset of symptoms was March 28, 2024. 18:41 Method Of Arrival: EMS: [facility] 6 18:41 Acuity: FELA 3 tm6 Triage Assessment: 17:59 General: Appears in no apparent distress. Behavior is calm, cooperative. Pain: tm6 Complains of pain in face, anterior aspect of left lateral abdomen and left arm Pain currently is 5 out of 10 on a pain scale. Quality of pain is described as aching, Pain began 1 hour ago. EENT: No signs and/or symptoms were reported regarding the EENT system. Neuro: Level of Consciousness is awake, alert, obeys commands, Oriented to person, place, time, situation. Neuro: Reports dizziness, that comes and goes. Cardiovascular: Patient's skin is warm and dry. Respiratory: Airway is patent Respiratory effort is even, unlabored, Respiratory pattern is regular, symmetrical. GI: No signs and/or symptoms were reported involving the gastrointestinal system. Abdomen is flat, non-distended. : No signs and/or symptoms were reported regarding the genitourinary system. Derm: No signs and/or symptoms reported regarding the dermatologic system. Musculoskeletal: Reports pain in face, anterior aspect of left lateral abdomen and left arm since one hour ago. Historical: - Allergies: 18:44 Aspirin; tm6 18:44 Benadryl; tm6 18:44 Ibuprofen; tm6 18:44 Neosporin ([id number]); tm6 18:44 Talwin; tm6 - PMHx: 18:44 ADD/ADHD; Anxiety; Asthma; depressive disorder; Hypertensive disorder; UNMEDICATED; tm6 Pneumonia; - PSHx: 17:59 Cholecystectomy; tm6 - Immunization history:: Client reports receiving the 2nd dose of the Covid vaccine. - Infectious Disease History:: Denies. - Social history:: Smoking status: Patient denies any tobacco usage or history of. Patient/guardian denies using alcohol. Screenin:59 [facility] ED Fall Risk Assessment (Adult) History of falling in the last 3 months, tm6 including since admission Yes- fall prone (multiple falls) (3 pts) Confusion or Disorientation No (0 pts) Intoxicated or Sedated No (0 pts) Impaired Gait No (0 pts) Mobility Assist Device Used Altered Elimination No (0 pt) Score/Fall Risk Level 3 or more points = High Risk Oriented to surroundings, Maintained a safe environment, Educated pt \T\ family on fall prevention, incl call for assistance when getting out of bed. Abuse screen: Denies threats or abuse. Denies injuries from another. Nutritional screening: No deficits noted. Tuberculosis screening: No symptoms or risk factors identified. Assessment: 17:59 Reassessment: see triage assessment. tm6 /04 00:00 Reassessment: Pt is resting in bed with no s/s of pain or distress noted. respirations jb4 are even and unlabored. Report received from Eugenia MARIA. 01:00 Reassessment: Patient appears in no apparent distress at this time. No changes from jb4 previously documented assessment. Patient and/or family updated on plan of care and expected duration. Pain level reassessed. 02:00 Reassessment: Patient appears in no apparent distress at this time. No changes from jb4 previously documented assessment. Patient and/or family updated on plan of care and expected duration. Pain level reassessed. 03:00 Reassessment: Patient appears in no apparent distress at this time. No changes from jb4 previously documented assessment. Patient and/or family updated on plan of care and expected duration. Pain level reassessed. Vital Signs: 03/28 18:41 BP 173 / 76; Pulse 100; Resp 19; Temp 98.1(O); Pulse Ox 95% on R/A; Weight 54.43 kg; tm6 Height 5 ft. 0 in. ; Pain 5/10; 19:08 BP 133 / 116; Pulse 89; Pulse Ox 92% on R/A; tm6 21:00 BP 165 / 76; Pulse 94; Resp 15; Pulse Ox 95% ; me1 22:00 BP 191 / 86; Pulse 99; Resp 17; Pulse Ox 93% on R/A; me1 23:00 BP 139 / 83; Pulse 98; Resp 16; Pulse Ox 93% on R/A; me1 23:45 BP 155 / 89; Pulse 102; Resp 14; Pulse Ox 92% on R/A; wi1 03/29 01:00 BP 157 / 71; Pulse 99; Resp 16; Pulse Ox 91% on R/A; jb4 02:00 BP 149 / 83; Pulse 98; Resp 16; Pulse Ox 94% on R/A; jb4 03:00 BP 159 / 68; Pulse 99; Resp 16; Pulse Ox 92% on R/A; jb4 03/28 18:41 Body Mass Index 23.44 (54.43 kg, 152.4 cm) tm6 03/28 18:41 Pain Scale: Adult 6 ED Course: 03/28 17:59 Patient arrived in ED. kb 17:59 Andressa Champion FNP-C is [facility]. kb 17:59 Oswaldo Hansen MD is Attending Physician. kb 17:59 Patrice Vital MD is Attending Physician. kb 17:59 Arm band placed on right wrist. tm6 17:59 Patient has correct armband on for positive identification. Bed in low position. Call tm6 light in reach. Side rails up X2. Provided Education on: use of call goldsmith. Client placed on continuous cardiac and pulse oximetry monitoring. NIBP monitoring applied. Pulse ox on. NIBP on. Door closed. Noise minimized. Warm blanket given. Pillow given. 18:40 Pretty Méndez, RN is Primary Nurse. tm6 18:44 Triage completed. tm6 18:55 Missed attempt(s): 24 gauge in right forearm. bc6 19:01 Inserted saline lock: 24 gauge in right forearm, using aseptic technique. Flushed with bc6 10 mL NS. 19:08 EKG done, by ED staff, reviewed by Andressa ELMORE. tm6 20:36 Inserted saline lock: 24 gauge in right forearm, using aseptic technique. Blood oe collected. Flushed with 10 mL NS. 21:34 CT Chest, Abdomen, Pelvis - W/Contrast In Process Unspecified. EDMS 21:34 C Spine Wo Con In Process Unspecified. EDMS 21:34 Head Brain Wo Cont In Process Unspecified. EDMS 22:03 Elbow Left 3 View XRAY In Process Unspecified. EDMS 22:32 Urine collected: clean catch specimen, cloudy. me1 22:51 Kassy Jara MD is Hospitalizing Provider. kb Administered Medications: 22:35 Drug: morphine IVP or IV 2 mg IVP once over 4 mins Route: IVP; Infused Over: 4 mins; me1 Site: right wrist; 23:19 Follow up: Response: No adverse reaction; Pain is decreased me1 Medication: 17:59 VIS not applicable for this client. tm6 Outcome: 22:51 Decision to Hospitalize by Provider. kb 03/29 03:51 Patient left the ED. jb4 Signatures: Dispatcher [employer] Andressa Padilla FNP-C FNP-Nayan Garcia, RN RN jb4 Ramiro Grey Breana 6 Eugenia Cloud, RN RN me1 Pretty Méndez, RN RN tm6 Corrections: (The following items were deleted from the chart) 03/28 19:02 19:01 Inserted saline lock: 24 gauge in right forearm, using aseptic technique. bc6 bc6
--- NOTE | 2024-03-28 23:49 | P.HP ---
Certification for Inpatient Patient admitted to: Observation With expected LOS: <2 Midnights Practitioner: I am a practitioner with admitting privileges, knowledge of patient current condition, hospital course, and medical plan of care. Services: Services provided to patient in accordance with Admission requirements found in Title 42 Section 412.3 of the Code of Federal Regulations Patient History Date of Service: 03/29/24 Reason for admission: fall History of Present Illness: 69-year-old female presents with complaints of fall she has past medical history of asthma, depression, hypertension. She reports that earlier today she was working in her kitchen lost consciousness and reports that she was on the ground. She reports that she has had multiple falls and states she has had about 10 in the last month. She denies any head trauma. She denies any previous history of seizures. She denies any recent fevers, chills, diarrhea. She states her appetite has been okay. She does states she has had some indigestion. Imaging was done in the ER including CT of the cervical spine, chest abdomen pelvis, head CT, elbow x-ray her past medical history includes anxiety, asthma, depression, hypertension Allergies aspirin Allergy (Intermediate, Verified 11/07/12 16:55) Anaphylaxis bacitracin [From Neosporin ([id number]-[id number])] Allergy (Intermediate, Verified 11/07/12 16:55) aquino skin bacitracin zinc [From Neosporin (dgt-vvl-pdxyl)] Allergy (Intermediate, Verified 11/07/12 16:55) aquino skin diphenhydramine HCl [From Benadryl] Allergy (Intermediate, Verified 06/03/18 18:20) Hives neomycin sulfate [From Neosporin (tvz-yzv-oegrt)] Allergy (Intermediate, Verified 11/07/12 16:55) aquino skin pentazocine lactate [From Talwin] Allergy (Intermediate, Verified 06/03/18 18:19) Itching polymyxin B [From Neosporin (ggb-tet-vtgvl)] Allergy (Intermediate, Verified 11/07/12 16:55) aquino skin Neosporin (ovh-rja-ucuco) Allergy (Uncoded 06/03/18 18:20) Itching NSAIDS Allergy (Uncoded 02/11/18 06:38) Unknown Home Medications: Albuterol Inhaler [Ventolin Inhaler*] 2 puff IN Q4H PRN 09/03/18 Venlafaxine HCl [Effexor XR] 1 tab PO DAILY 09/03/18 Pantoprazole [Protonix Tab*] 40 mg PO ACB #30 tab 09/04/18 Dextroamphetamine/Amphetamine [Adderall 10 mg Tablet] 1 tab PO DAILY 07/17/22 Fluticasone/Umeclidin/Vilanter [Trelegy Ellipta 100-62.5-25] 1 puff PO BEDTIME 07/17/22 predniSONE [Deltasone*] 10 mg PO DAILY 90 Days #90 tab 09/18/22 Buspirone HCl [Buspar*] 1 tab PO BID 01/04/24 diazePAM [Diazepam] 1 tab PO BEDTIME 01/04/24 Albuterol Neb [Proventil 0.083% Neb Soln] 2.5 mg NEB [id number] PRN #60 amp 01/07/24 Alprazolam [Xanax] 1 mg PO BID PRN #60 tab 01/07/24 Arformoterol Tartrate [Brovana] 15 mcg NEB BIDRESP #60 vial.neb 01/07/24 Benzonatate [Tessalon Perle*] 100 mg PO TID PRN #60 cap 01/07/24 Ipratropium Neb [Atrovent*] 0.5 mg NEB [id number] #60 amp 01/07/24 Nebulizer 1 each MC DAILY #1 ea 01/07/24 Nebulizer Accessories [Aeroneb Go] 1 each MC DAILY #1 ea 01/07/24 Quetiapine [Seroquel*] 25 mg PO BEDTIME #30 tab 01/07/24 levoFLOXacin [Levaquin*] 750 mg PO DAILY #5 tab 01/07/24 predniSONE [Prednisone*] 20 mg PO BID #30 tab 01/07/24 Albuterol Inhaler [Ventolin Inhaler*] 2 puff IH Q6H PRN #1 inh 01/08/24 Venlafaxine HCl [Effexor XR] 150 mg PO DAILY #30 cap 01/08/24 Alprazolam [Xanax] 1 mg PO BID PRN #60 tab 03/15/24 - Past Medical/Surgical History Diabetic: No -: Asthma -: Depression -: Osteoporosis -: GERD with hiatal hernia -: Obesity -: Hypertension -: ADHD -: -: Tubal ligation -: cholecystectomy -: cataract surgery -: rt shoulder sx x2 -: sx on left knee Psychosocial/ Personal History: Patient is . She has 1 child. She is retired. - Family History Mother -: Heart disease, Hypertension, Diabetes Father -: Heart disease, Hypertension, Lung disease, Cancer, Other (see notes) Notes: asbestosis - Social History Alcohol use: No CD- Drugs: No Caffeine use: Yes Review of Systems 10-point ROS is otherwise unremarkable Eyes: Unremarkable ENT: Unremarkable Respiratory: Unremarkable Cardiovascular: Unremarkable Gastrointestinal: Unremarkable Physical Examination - Physical Exam General: Alert, Oriented x3 HEENT: Atraumatic, Normocephalic Neck: Supple Respiratory: Clear to auscultation bilaterally, Normal air movement Cardiovascular: Normal pulses, Regular rate/rhythm Gastrointestinal: Soft and benign Integumentary: Other Neurological: Normal speech Rectal: Other - Studies Laboratory Data (last 24 hrs) 03/28/24 03/28/24 03/28/24 21:03 20:28 20:28 WBC 21.10 H Hgb 14.1 Hct 44.3 Plt Count 263 PT 10.6 INR 0.94 APTT 24.7 Sodium 139 Potassium 4.0 BUN 17 Creatinine 0.86 Glucose 91 Magnesium 2.2 Total Bilirubin 0.4 AST 17 ALT 21 Alkaline Phosphatase 79 Assessment and Plan - Problems (Diagnosis) (1) Fall Current Visit: Yes Status: Acute - Plan 69-year-old female who presents with fall. She reports that she has had recurrent falls ongoing for the past greater month Etiology of her fall is unclear. Syncope, vasovagal, seizure, arrhythmia cannot be completely ruled out. Syncope Fall Abnormal CT chest Leukocytosis History of asthma History of hypertension History of depression Plan: Admit observation with telemetry Check echocardiogram Carotid ultrasound May benefit from neurology consultation, EEG Await home medication reconciliation Abnormal CT chest was briefly discussed. She will need follow-up SCDs Full code Plan to discharge in: 24 Hours - Advance Directives Does patient have a Living Will: No Does patient have a Durable POA for Healthcare: No
[2024-03-29 04:22] VITALS: BMI 23.4
[2024-03-29] MEDS: ACETAMINOPHEN 325 MG TABLET PO PRN (04:55)
--- NOTE | 2024-03-29 07:44 | RAD REPORT ---
EXAM DESCRIPTION: US - CP - 03/29/2024 5:39 am CLINICAL HISTORY: syncope Headache, drowsiness, syncope COMPARISON: C Spine Wo Con dated 03/28/2024 TECHNIQUE: Real-time sonographic evaluation of both carotid systems was performed. Doppler interroga tion was performed with waveform tracing bilaterally. FINDINGS: Normal high resistance waveforms are noted in both external carotid arteries. The common c arotid arteries and internal carotid arteries show normal low resistance waveforms. Mild soft plaque is suspected in the region of both carotid bulbs. Peak systolic and end diastolic ve locity values and the ICA/CCA ratios are in the non-hemodynamically significant range. Antegrade flow seen in both vertebral arteries. IMPRESSION: Mild soft plaque suspected in the region of both carotid bulbs. No evidence of a hemodynamically significant stenosis.
[2024-03-29] MEDS ORDERED: HOME MED (Fluticasone/Umeclidin/Vilanter [Trelegy Ellipta 100-62.5-25] Blst.W.Dev PO PRN (09:17)
[2024-03-29] MEDS: IPRATROPIUM BROM 0.5MG/2.5ML NEB PRN (10:20)
--- NOTE | 2024-03-29 12:08 | EKG ---
Test Date: 2024-03-28 Test Time: 19:05:11 Environmental Research Project Manager: ANATOLY MEASUREMENT RESULTS: Intervals: Rate: 90 OH: 138 QRSD: 76 QT: 368 QTc: 450 [place]: P: 71 OH: 138 QRS: 44 T: 63 INTERPRETIVE STATEMENTS: Normal sinus rhythm Nonspecific T wave abnormality Abnormal ECG Compared to ECG 01/04/2024 14:15:48 T-wave abnormality now present Sinus tachycardia no longer present ST (T wave) deviation no longer present Possible ischemia no longer present Electronically Signed On 03-29-24 12:06:23 CDT by Jesus Santana
--- NOTE | 2024-03-29 14:47 | ECHO ---
HEIGHT: 5 ft 0 in WEIGHT: 120 lb 0 oz DATE OF STUDY: 03/29/[address]: Kassy Jara MD 2-DIMENSIONAL: YES M.MODE: YES DOPPLER: YES COLOR FLOW: YES TDS: PORTABLE: YES DEFINITY: BUBBLE STUDY: DIAGNOSIS: SYNCOPE CARDIAC HISTORY: CATHERIZATION: SURGERY: PROSTHETIC VALVE: PACEMAKER: MEASUREMENTS (cm) DIASTOLIC (NORMALS) SYSTOLIC (NORMALS) IVSd 1.1 (0.6-1.2) LA Diam 3.4 (1.9-4.0) LVEF 60-65% LVIDd 4.1 (3.5-5.7) LVIDs 2.5 (2.0-3.5) %FS LVPWd 1.1 (0.6-1.2) Ao Diam 2.5 (2.0-3.7) 2 DIMENSIONAL ASSESSMENT: RIGHT ATRIUM: NORMAL LEFT ATRIUM: NORMAL RIGHT VENTRICLE: NORMAL LEFT VENTRICLE: MILD LEFT VENTRICULAR HYPERTROPHY TRICUSPID VALVE: NORMAL MITRAL VALVE: NORMAL PULMONIC VALVE: NORMAL AORTIC VALVE: NORMAL PERICARDIAL EFFUSION: NONE AORTIC ROOT: NORMAL LEFT VENTRICULAR WALL MOTION: NORMAL DOPPLER/COLOR FLOW: GRADE I DIASTOLIC DYSFUNCTION COMMENTS: 1. MILD LEFT VENTRICULAR HYPERTROPHY 2. NORMAL LEFT VENTRICULAR SYSTOLIC FUNCTION, EJECTION FRACTION 60-65%, NORMAL WALL MOTION 3. GRADE I DIASTOLIC DYSFUNCTION 4. NORMAL FILLING PRESSURE TECHNOLOGIST: MEDARDO AMBROSE
[2024-03-29] MEDS: ALPRAZOLAM 1 MG TABLET PO PRN (15:16)
[2024-03-29] MEDS: VENLAFAXINE HCL XR 75 MG CAP PO SCH (15:17)
[2024-03-29] MEDS: predniSONE 10 MG TAB PO SCH (15:17)
[2024-03-29 18:29] LABS: Absolute Basophils 0.1 K/uL (0-0.5); Absolute Eosinophils 0.1 K/uL (0-0.5); Absolute Lymphocytes (CBC) 1.3 K/uL (0.7-4.9); Absolute Monocytes 0.5 K/uL (0.1-1.3); Absolute Neutrophil 11.8 K/uL (1.8-8.0); Basophils % 0.8 % (0-1.3); Eosinophils % 0.8 % (0-4.4); Hematocrit 36.6 % (36.0-45.0); Hemoglobin 12.1 g/dL (12.0-15.0); Lymphocytes % 9.6 % (15.3-44.8); MCH 31.3 pg (27.0-35.0); MCV 94.8 fL (80-100); MPV 7.5 fL (7.6-11.3); Monocytes % 3.4 % (3.3-12.3); Neutrophils % 85.4 % (41.7-73.7); Nucleated Red Blood Cells % 0.3 % (0-0); Platelets 327 thou/uL (152-406); RBC Red Blood Cell Count 3.87 M/uL (3.86-4.86); Red Cell Distribution Width 15.4 % (12.1-15.2)
--- NOTE | 2024-03-29 18:43 | P.PN ---
Subjective Date of Service: 03/29/24 Chief Complaint: fall Patient denies any shortness of breath or chest pain. No recorded fever She reported anxiety. Patient reported that sometimes she sleeps close to 24 hours and she becomes disoriented with time when she wakes up. Physical Examination - Vital Signs Temperature: 97.1 F Blood Pressure: 133/55 Pulse: 96 Respirations: 16 Pulse Ox (%): 98 - Studies Laboratory Data (last 24 hrs) 03/28/24 03/28/24 03/28/24 21:03 20:28 20:28 WBC 21.10 H Hgb 14.1 Hct 44.3 Plt Count 263 PT 10.6 INR 0.94 APTT 24.7 Sodium 139 Potassium 4.0 BUN 17 Creatinine 0.86 Glucose 91 Magnesium 2.2 Total Bilirubin 0.4 AST 17 ALT 21 Alkaline Phosphatase 79 Assessment And Plan - Plan Physical examination General: Alert and oriented x3, NAD, HEENT: Conjunctiva not pale, anicteric sclera Neck: Supple, no elevated JVD Heart: Heart sounds 1 and 2 normal, regular rhythm, normal rate, no pedal edema Lungs: Clear to auscultation bilaterally, adequate breath sounds bilaterally, no rhonchi or crackles. Abdomen: Soft, nondistended, nontender, normal bowel sounds. Extremities: No tenderness, no deformity Skin: Normal skin turgor, no rash, no nodules or ulcers. Neuro: No focal motor deficit. Normal speech. Psychiatry: Anxious, no agitation. Diagnosis Multiple falls Patient described episodes where she passes out even when she is eating or walking and falls Case discussed with neurology Dr. Summers. Patient has a history of ADHD, anxiety and depression and states she cannot function without her Adderall or Xanax Differential diagnosis includes narcolepsy/cataplexy, seizures or syncopal episodes or polypharmacy. EEG done, result is pending. Echocardiogram is unremarkable, no arrhythmias noted on the teletypesetter monitor. Check orthostatic vitals. Outpatient evaluation with multi sleep latency study, event monitor, and continuous EEG monitor. Patient will follow-up with Dr. Summers as outpatient for the EEG monitoring. Cardiology Dr. Santana has agreed to follow-up with patient for arrangement for event monitor. Patient informed to follow-up with his PCP to arrange for multi sleep latency study. Patient resistant changes in her home psychotropic medications. Resume Xanax, Effexor and adderal Anxiety disorder Depression Resume home medications. History of asthma Bronchodilators as needed. DVT prophylaxis: Heparin SQ Advanced directive: Full code
[2024-03-30] MEDS: HEPARIN 5000 UNIT/ML 1 ML VIAL SQ SCH (00:30)
[2024-03-30 04:36] LABS: Absolute Basophils 0.1 K/uL (0-0.5); Absolute Eosinophils 0.2 K/uL (0-0.5); Absolute Lymphocytes (CBC) 2.3 K/uL (0.7-4.9); Absolute Monocytes 0.8 K/uL (0.1-1.3); Absolute Neutrophil 10.7 K/uL (1.8-8.0); Basophils % 0.6 % (0-1.3); Eosinophils % 1.1 % (0-4.4); Hemoglobin 13.1 g/dL (12.0-15.0); Lymphocytes % 16.2 % (15.3-44.8); MCH 30.5 pg (27.0-35.0); MCV 95.3 fL (80-100); MPV 7.5 fL (7.6-11.3); Monocytes % 5.6 % (3.3-12.3); Neutrophils % 76.5 % (41.7-73.7); Platelets 357 thou/uL (152-406); Red Cell Distribution Width 15.6 % (12.1-15.2)
[2024-03-30 05:08] LABS: Albumin 2.8 g/dL (3.4-5.0); Albumin/Globulin Ratio 0.7 (1.1-1.8); Anion Gap 8.7 mEq/L (5.0-15.0); Bilirubin Total 0.9 mg/dL (0.2-1.0); Globulin 3.8 g/dL (2.3-3.5); Potassium 4.7 mEq/L (3.5-5.1); Protein, Total 6.6 g/dL (6.4-8.2)
[2024-03-30] MEDS: ALBUTEROL INHALER 200 PUFF/6.7 GM IH PRN (08:14)
[2024-03-30] MEDS ORDERED: predniSONE 10 MG TAB PO SCH (09:00)
[2024-03-30] MEDS ORDERED: VENLAFAXINE HCL XR 75 MG CAP PO SCH (09:00)
[2024-03-30] MEDS: METHYLPREDNISOLONE 40 MG INJ IV SCH (09:09)
--- NOTE | 2024-03-30 14:38 | RAD REPORT ---
EXAM DESCRIPTION: US - Liver Only - 03/30/2024 12:24 pm CLINICAL HISTORY: Elevated liver function test enzymes COMPARISON: February 2024 FINDINGS: The liver has a coarsened echotexture. Hepatopetal flow. A discrete lesion is not seen. Hepatic contour mildly nodular. Spleen 9 centimeters IMPRESSION: Coarsened hepatic echotexture with a nodular contour probably indicating chronic disease
--- NOTE | 2024-03-30 14:41 | P.PN ---
Subjective Date of Service: 03/30/24 Chief Complaint: fall Patient patient reported shortness of breath this morning. She was in respiratory distress and wheezing. No recorded fever Respiratory status improved with bronchodilators and a dose of IV steroid. Physical Examination - Vital Signs Temperature: 96.8 F Blood Pressure: 139/67 Pulse: 87 Respirations: 16 Pulse Ox (%): 97 - Studies Laboratory Data (last 24 hrs) 03/29/24 18:21 WBC 13.90 H Hgb 12.1 D Hct 36.6 Plt Count 327 Assessment And Plan - Plan Physical examination General: Alert and oriented x3, moderate respiratory distress. Neck: Supple, no elevated JVD Heart: Heart sounds 1 and 2 normal, regular rhythm, normal rate, no pedal edema Lungs: Bilateral wheezes, diminished breath sounds bilaterally, no rhonchi or crackles. Abdomen: Soft, nondistended, nontender, normal bowel sounds. Extremities: No tenderness, no deformity Skin: Normal skin turgor, no rash, no nodules or ulcers. Neuro: No focal motor deficit. Normal speech. Psychiatry: Anxious, no agitation. Diagnosis Multiple falls Patient described episodes where she passes out even when she is eating or walking and falls Case discussed with neurology Dr. Summers. Patient has a history of ADHD, anxiety and depression and states she cannot function without her Adderall or Xanax Differential diagnosis includes narcolepsy/cataplexy, seizures or syncopal ep isodes or polypharmacy. EEG done, result is pending. Echocardiogram is unremarkable, no arrhythmias noted on the vehicle monitor technician. Outpatient evaluation with multi sleep latency study, event monitor, and continuous EEG monitor. Patient will follow-up with Dr. Summers as outpatient for the EEG monitoring. Cardiology Dr. Santana has agreed to follow-up with patient for arrangement for event monitor. Patient informed to follow-up with his PCP to arrange for multi sleep latency study. Patient resistant changes in her home psychotropic medications. Continue Xanax, Effexor and adderal Anxiety disorder Depression Continue home medications. Acute asthma exacerbation Patient given a dose of IV steroid. She is preferring oral prednisone for now. Bronchodilators as needed. Elevated LFT Unknown etiology. CT abdomen and pelvis done reported unremarkable liver. Liver ultrasound ordered to further evaluate. Lung Mass Patient may need bronchoscopy for tissue biopsy Pulmonary consult DVT prophylaxis: Heparin SQ Advanced directive: Full code
[2024-03-30] MEDS ORDERED: GLUCAGON 1 MG/VIAL IM PRN (16:19)
[2024-03-30] MEDS ORDERED: D10W 125 ML IV PRN (16:19)
[2024-03-30] MEDS: INSULIN REGULAR (HUMAN) 100 UNIT/ML SQ SCH (16:45)
[2024-03-30] MEDS: VENLAFAXINE HCL 75 MG TABLET PO ONE (16:45)
[2024-03-31 04:35] LABS: Absolute Basophils 0.1 K/uL (0-0.5); Absolute Eosinophils 0.2 K/uL (0-0.5); Absolute Lymphocytes (CBC) 2.3 K/uL (0.7-4.9); Absolute Monocytes 0.9 K/uL (0.1-1.3); Absolute Neutrophil 11.5 K/uL (1.8-8.0); Basophils % 0.4 % (0-1.3); Eosinophils % 1.2 % (0-4.4); Hematocrit 36.2 % (36.0-45.0); Hemoglobin 11.5 g/dL (12.0-15.0); Lymphocytes % 15.5 % (15.3-44.8); MCH 30.3 pg (27.0-35.0); MCHC 31.8 g/dL (32.0-36.0); MCV 95.2 fL (80-100); MPV 7.6 fL (7.6-11.3); Neutrophils % 76.9 % (41.7-73.7); Platelets 300 thou/uL (152-406)
[2024-03-31 04:56] LABS: Albumin 2.4 g/dL (3.4-5.0); Albumin/Globulin Ratio 0.7 (1.1-1.8); Anion Gap 9.1 mEq/L (5.0-15.0); Bilirubin Total 0.4 mg/dL (0.2-1.0); Globulin 3.6 g/dL (2.3-3.5); Potassium 4.1 mEq/L (3.5-5.1)
[2024-03-31] MEDS: VENLAFAXINE HCL XR 75 MG CAP PO SCH (08:27)
[2024-03-31] MEDS: predniSONE 20 MG TAB PO SCH (08:27)
[2024-03-31] MEDS: MAGNES/ALUMIN/SIMET 30ML UCUP PO PRN (10:26)
[2024-03-31] MEDS: ARFORMOTEROL TARTRATE 15 MCG/2 ML VIAL.NEB NEB SCH (11:31)
--- NOTE | 2024-03-31 12:13 | P.CNS ---
Date of Consult: 03/31/24 Reason for Consult: Falls and abnormal CT scan Chief Complaint: fall History of Present Illness: Is 69 years of age with a history of significant depression has been having recurrent falls and weakness associated with dizziness going on for several years gotten worse for the past few weeks his asthma is concerned that appears to be stable complaining of problem with her left leg left knee has any pulmonary complaints no cough congestion fever chills or chest pain patient is compliant with her medication Allergies aspirin Allergy (Intermediate, Verified 11/07/12 16:55) Anaphylaxis bacitracin [From Neosporin ([id number])] Allergy (Intermediate, Verified 11/07/12 16:55) aquino skin bacitracin zinc [From Neosporin ([id number])] Allergy (Intermediate, Verified 11/07/12 16:55) aquino skin neomycin sulfate [From Neosporin ([id number])] Allergy (Intermediate, Verified 11/07/12 16:55) aquino skin polymyxin B [From Neosporin ([id number])] Allergy (Intermediate, Verified 11/07/12 16:55) aquino skin NSAIDS Allergy (Severe, Uncoded 03/29/24 04:24) Anaphylaxis Neosporin ([id number]) Allergy (Uncoded 06/03/18 18:20) Itching Home Medications: Fluticasone/Umeclidin/Vilanter [Trelegy Ellipta 100-62.5-25] 1 puff PO BEDTIME PRN 07/17/22 predniSONE [Deltasone*] 10 mg PO DAILY 90 Days #90 tab 09/18/22 Benzonatate [Tessalon Perle*] 100 mg PO TID PRN #60 cap 01/07/24 Albuterol Inhaler [Ventolin Inhaler*] 2 puff IH Q6H PRN #1 inh 01/08/24 Venlafaxine HCl [Effexor XR] 150 mg PO DAILY #30 cap 01/08/24 Alprazolam [Xanax] 1 mg PO BID PRN #60 tab 03/15/24 Ipratropium Neb [Atrovent*] 0.5 mg NEB [id number] PRN 03/29/24 Venlafaxine HCl *Xr* [Effexor XR] 75 mg PO DAILY 03/29/24 - Past Medical/Surgical History Diabetic: No -: Asthma -: Depression -: Osteoporosis -: GERD with hiatal hernia -: Obesity -: Hypertension -: ADHD -: -: Tubal ligation -: cholecystectomy -: cataract surgery -: rt shoulder sx x2 -: sx on left knee Psychosocial/ Personal History: Patient is . She has 1 child. She is retired. - Family History Mother Medical History: Heart disease, Hypertension, Diabetes Father Medical History: Heart disease, Hypertension, Lung disease, Cancer, Other (see notes) Notes: asbestosis - Social History Smoking Status: Unknown if ever smoked Alcohol use: No CD- Drugs: No Caffeine use: Yes Place of Residence: Home Review of Systems 10-point ROS is otherwise unremarkable General: Weakness Respiratory: Shortness of Breath Neurological: Weakness, As per HPI Physical Examination Temp Pulse Resp BP Pulse Ox 97.7 F 85 16 153/70 H 95 03/31/24 08:00 03/31/24 08:00 03/31/24 08:00 03/31/24 08:00 03/31/24 08:00 General: In no apparent distress, Oriented x3 Neck: Supple Respiratory: Clear to auscultation bilaterally Cardiovascular: No edema, Regular rate/rhythm, Normal S1 S2 Gastrointestinal: Normal bowel sounds, Soft and benign Musculoskeletal: No clubbing, No swelling Integumentary: No rashes, No breakdown Neurological: Normal speech, Normal strength at 5/5 x4 extr - Problems (1) Falls Current Visit: Yes Status: Acute Plan: Patient is 69 years of age with a significant history of asthma steroid- dependent patient underlying depression and anxiety maria patient has been doing well her asthma seems to be controlled however she has been complaining of w eakness recurrent falls feeling persistently dizzy labs pertinent abnormalities include abnormal liver function test ALT and AST elevated so is alkaline phosphatase have underlying cirrhosis patient's white count is elevated start patient on Zosyn sickle therapy evaluation is vital signs oxygenation all stable she does have a left hilar mass evaluate for alcohol abuse started patient on thiamine (2) Abnormal CT scan of lung Current Visit: Yes Status: Acute Plan: Patient has a left hilar mass with some cystic areas most likely is an infection origin patient does not smoke will start patient on Zosyn his white count is also elevated
--- NOTE | 2024-03-31 12:25 | EEG ---
CHART: [id number] TEST ID#: [id number] DATE OF STUDY: 03-29-2024 THE EEG WAS RECORDED PORTABLE IN THE PATIENT'S ROOM ON A 17 CHANNEL MACHINE. ELECTRODES WERE APPLIED IN THE USUAL MANNER USING THE INTERNATIONAL 10-20 SYSTEM. THE WAKING BACKGROUND RHYTHM IN THIS RECORD CONSISTS OF WELL DEVELOPED AND WELL ORGANIZED WAVES OF 8.5 HZ., MAXIMAL IN THE POSTERIOR HEAD REGIONS WHICH ATTENUATE NORMALLY WITH EYE OPENING. LOW-VOLTAGE 18-22 HZ ACTIVITY IS EXPRESSED IN THE FRONTAL REGIONS. THERE ARE NO FOCAL OR LATERALIZING FEATURES. NO EPILEPTIFORM ACTIVITY APPEARS. SLEEP DID NOT OCCUR. HYPERVENTILATION WAS NOT PERFORMED. PHOTIC STIMULATION PRODUCED POOR DRIVING BILATERALLY. IMPRESSION: NORMAL EEG FOR THE AGE OF THE PATIENT IN [place].
[2024-03-31] MEDS: THIAMINE HCL 100 MG TABLET PO SCH (12:55)
--- NOTE | 2024-03-31 14:02 | P.PN ---
Subjective Date of Service: 03/31/24 Chief Complaint: fall Patient reports improvement in her shortness of breath, no wheezing. She reports significant anxiety. She also complained of chest pain. Physical Examination - Vital Signs Temperature: 97.2 F Blood Pressure: 154/66 Pulse: 87 Respirations: 12 Pulse Ox (%): 93 Assessment And Plan - Plan Physical examination General: Alert and oriented x3, moderate respiratory distress. Neck: Supple, no elevated JVD Heart: Heart sounds 1 and 2 normal, regular rhythm, normal rate, no pedal edema Lungs: Clear to auscultation, improved breath sounds bilaterally, no crackles. Abdomen: Soft, nondistended, nontender, normal bowel sounds. Extremities: No tenderness, no deformity Skin: Normal skin turgor, no rash, no nodules or ulcers. Neuro: No focal motor deficit. Normal speech. Psychiatry: Anxious, no agitation. Diagnosis Multiple falls Patient described episodes where she passes out even when she is eating or walking and falls Case discussed with neurology Dr. Summers. Patient has a history of ADHD, anxiety and depression and states she cannot function without her Adderall or Xanax Differential diagnosis includes narcolepsy/cataplexy, seizures or syncopal episodes or polypharmacy. EEG done, result is pending. 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 Outpatient evaluation with multi sleep latency study, event monitor, and continuous EEG monitor. Patient will follow-up with Dr. Summers as outpatient for the EEG monitoring. Cardiology Dr. Santana has agreed to follow-up with patient for arrangement for event monitor. Patient informed to follow-up with his PCP to arrange for multi sleep latency study. Patient resistant changes in her home psychotropic medications. Continue Xanax, Effexor and adderal Anxiety disorder Depression Patient with significant anxiety. Continue home medications. Acute asthma exacerbation Patient given a dose of IV steroid. She is preferring oral prednisone for now. Skilled on prednisone to [address] Perez input appreciated. Bronchodilators as needed. Elevated LFT Chronic liver disease CT abdomen and pelvis done reported unremarkable liver. Liver ultrasound shows coarse liver echotexture indicating chronic liver disease. LFTs are trending down. Continue to monitor. Lung Mass Patient seen and evaluated by pulmonary Dr. Li. Lung lesion suspected to be of infectious origin by pulmonary. Patient started on IV antibiotics. Serial imaging Monitor CBC to follow leukocytosis. Pulmonary to follow DVT prophylaxis: Heparin SQ Advanced directive: Full code
[2024-03-31] MEDS: PIPER TAZO 3.375 GM in NA CHLORIDE 0.9% 100 ML IV SCH (14:15)
--- NOTE | 2024-03-31 17:47 | RAD REPORT ---
EXAM DESCRIPTION: CT - Head Brain W/Wo Con - 03/31/2024 3:01 pm CLINICAL HISTORY: Current dizziness and falls COMPARISON: Facial Bones W/ Mpr dated 07/16/2022 TECHNIQUE: Axial head CT images were obtained before and after IV administration of iodinated contra st. Multiplanar reformats were generated and reviewed. All CT scans are performed using dose optimization technique as appropriate and may include automated exposure control or mA/KV adjustment according to patient size. FINDINGS: No intracranial hemorrhage, mass, or edema. Midline structures are unremarkable. Normal ventricular caliber for age. Valderrama-white matter differentiation is preserved, without evidence of acute infarct. No abnormal extra- axial fluid collections. Stable pattern of subcortical and deep white matter hypodensities most pronounced in the right pariet al lobe. No suspicious masses or abnormal enhancement. Major arterial structures and dural venous sinuses are unremarkable. Patchy left mastoid air cell opacification. Scattered advanced mucosal thickening in the paranasal si nuses with near complete opacification of the right maxillary, bilateral frontal, and left ethmoidal sinuses. No acute bony findings. IMPRESSION: No evidence of an acute intracranial process. No abnormal enhancement or mass effect.
[2024-03-31] MEDS: DIPHENHYDRAMINE 25 MG TAB/CAP PO ONE (20:36)
[2024-04-01] MEDS: PIPER TAZO 3.375 GM in NA CHLORIDE 0.9% 100 ML IV SCH (00:26)
[2024-04-01] MEDS: predniSONE 10 MG TAB PO SCH (09:00)
[2024-04-01] MEDS: ENOXAPARIN 40 MG/0.4 ML SQ SCH (09:07)
[2024-04-01] MEDS: BENZONATATE 100 MG CAP PO PRN (13:56)
--- NOTE | 2024-04-01 15:55 | P.PN ---
Subjective Date of Service: 04/01/24 Chief Complaint: fall Patient states overall she feels better today. She reports she is less anxious today She denies any chest pain or shortness of breath at rest. Physical Examination - Vital Signs Temperature: 98.3 F Blood Pressure: 143/59 Pulse: 76 Respirations: 12 Pulse Ox (%): 100 Assessment And Plan - Plan Physical examination General: Alert and oriented x3, moderate respiratory distress. Neck: Supple, no elevated JVD Heart: Heart sounds 1 and 2 normal, regular rhythm, normal rate, no pedal edema Lungs: Clear to auscultation, improved breath sounds bilaterally, no crackles. Abdomen: Soft, nondistended, nontender, normal bowel sounds. Extremities: No tenderness, no deformity Skin: Normal skin turgor, no rash, no nodules or ulcers. Neuro: No focal motor deficit. Normal speech. Psychiatry: Anxious, no agitation. Diagnosis Multiple falls Patient described episodes where she passes out even when she is eating or walking and falls Case discussed with neurology Dr. Summers. Patient has a history of ADHD, anxiety and depression and states she cannot function without her Adderall or Xanax Differential diagnosis includes narcolepsy/cataplexy, seizures or syncopal episodes or polypharmacy. EEG done, result is pending. Echocardiogram is unremarkable, no arrhythmias noted on the cardiac surgeon. Outpatient evaluation with multi sleep latency study, event monitor, and continuous EEG monitor. Patient will follow-up with Dr. Summers as outpatient for the EEG monitoring. Cardiology Dr. Santana has agreed to follow-up with patient for arrangement for event monitor. Patient informed to follow-up with his PCP to arrange for multi sleep latency study. Patient resistant changes in her home psychotropic medications. Continue Xanax, Effexor and adderal Anxiety disorder Depression Patient with significant anxiety. Continue home medications. Acute asthma exacerbation Patient given a dose of IV steroid. Clinically stable now. Continue home dose oral prednisone Pulmonary Dr. Perez input appreciated. Bronchodilators as needed. Elevated LFT Chronic liver disease CT abdomen and pelvis done reported unremarkable liver. Liver ultrasound shows coarse liver echotexture indicating chronic liver disease. LFTs are trending down. Continue to monitor. Lung Mass Patient seen and evaluated by pulmonary Dr. Li. Lung lesion suspected to be of infectious origin by pulmonary. Continue IV Zosyn Serial imaging. May need repeat CT within 1 month of outpatient. Monitor CBC to follow leukocytosis. Pulmonary to follow DVT prophylaxis: Heparin SQ Advanced directive: Full code
[2024-04-02] MEDS: IPRATROPIUM BROM 0.5MG/2.5ML NEB ONE (00:24)
[2024-04-02 06:38] LABS: Absolute Basophils 0.1 K/uL (0-0.5); Absolute Eosinophils 0.2 K/uL (0-0.5); Absolute Lymphocytes (CBC) 2.7 K/uL (0.7-4.9); Absolute Monocytes 0.8 K/uL (0.1-1.3); Absolute Neutrophil 6.9 K/uL (1.8-8.0); Basophils % 0.7 % (0-1.3); Eosinophils % 1.6 % (0-4.4); Hematocrit 34.7 % (36.0-45.0); Hemoglobin 11.3 g/dL (12.0-15.0); Lymphocytes % 25.6 % (15.3-44.8); MCH 31.1 pg (27.0-35.0); MCHC 32.6 g/dL (32.0-36.0); MCV 95.6 fL (80-100); MPV 7.8 fL (7.6-11.3); Monocytes % 7.2 % (3.3-12.3); Neutrophils % 64.9 % (41.7-73.7); Platelets 275 thou/uL (152-406); RBC Red Blood Cell Count 3.63 M/uL (3.86-4.86); Red Cell Distribution Width 15.4 % (12.1-15.2)
[2024-04-02 06:52] LABS: Albumin 2.4 g/dL (3.4-5.0); Albumin/Globulin Ratio 0.7 (1.1-1.8); Anion Gap 6.8 mEq/L (5.0-15.0); Bilirubin Total 0.4 mg/dL (0.2-1.0); Globulin 3.3 g/dL (2.3-3.5); Potassium 4.8 mEq/L (3.5-5.1); Protein, Total 5.7 g/dL (6.4-8.2)
--- NOTE | 2024-04-02 09:51 | P.PN ---
Subjective Date of Service: 04/02/24 Chief Complaint: Dizziness No significant change patient complains of intermittent dizziness vertigo or tinnitus will to ambulate happening rather frequently shortness of breath is better Review of Systems General: Weakness Respiratory: Shortness of Breath Neurological: Other (Dizziness) Physical Examination - Vital Signs Temperature: 97.8 F Blood Pressure: 153/65 Pulse: 71 Respirations: 16 Pulse Ox (%): 95 - Physical Exam General: Alert, Oriented x3 Respiratory: Diminished, Expiratory wheezes Cardiovascular: No edema, Regular rate/rhythm, Normal S1 S2 Assessment And Plan - Current Problems (Diagnosis) (1) Falls Current Visit: Yes Status: Acute Plan: Has been complaining of recurrent falls and dizziness signs are all stable no evidence of significant carotid artery disease or any intracranial pathology on CT scan pressure is stable his prednisone to 10 mg twice a day consult neurology (2) Abnormal CT scan of lung Current Visit: Yes Status: Acute Plan: Likely is infectious in origin patient is does not smoke or drink count is now down to normal may have an underlying infection pneumonia with Zosyn changed over to Augmentin and doxycycline
--- NOTE | 2024-04-02 14:43 | P.PN ---
Subjective Date of Service: 04/02/24 Chief Complaint: Dizziness Patient has no new complain. No major changes from yesterday. Physical Examination - Vital Signs Temperature: 98.0 F Blood Pressure: 145/63 Pulse: 78 Respirations: 16 Pulse Ox (%): 96 Assessment And Plan - Plan Physical examination General: Alert and oriented x3, moderate respiratory distress. Neck: Supple, no elevated JVD Heart: Heart sounds 1 and 2 normal, regular rhythm, normal rate, no pedal edema Lungs: Clear to auscultation, improved breath sounds bilaterally, no crackles. Abdomen: Soft, nondistended, nontender, normal bowel sounds. Extremities: No tenderness, no deformity Skin: Normal skin turgor, no rash, no nodules or ulcers. Neuro: No focal motor deficit. Normal speech. Psychiatry: Anxious, no agitation. Diagnosis Multiple falls Patient described episodes where she passes out even when she is eating or walking and falls Case discussed with neurology Dr. Summers. Patient has a history of ADHD, anxiety and depression and states she cannot function without her Adderall or Xanax Differential diagnosis includes narcolepsy/cataplexy, seizures or syncopal episodes or polypharmacy. EEG done, result is pending. Echocardiogram is unremarkable, no arrhythmias noted on the shelter monitor. Outpatient evaluation with multi sleep latency study, event monitor, and continuous EEG monitor. Patient will follow-up with Dr. Summers as outpatient for the EEG monitoring. Cardiology Dr. Santana has agreed to follow-up with patient for arrangement for event monitor. Patient informed to follow-up with his PCP to arrange for multi sleep latency study. Continue Xanax, Effexor and adderal Anxiety disorder Depression Patient with significant anxiety. Continue home medications. Acute asthma exacerbation Patient given a dose of IV steroid. Clinically stable now. Exacerbation resolved. Continue home dose oral prednisone Pulmonary Dr. Perez is following. Bronchodilators as needed. Elevated LFT Chronic liver disease CT abdomen and pelvis done reported unremarkable liver. Liver ultrasound shows coarse liver echotexture indicating chronic liver disease. LFTs are trending down. Continue to monitor. Lung Mass Patient seen and evaluated by pulmonary Dr. Li. Lung lesion suspected to be of infectious origin by Dr. Li. Continue IV Zosyn Serial imaging. May need repeat CT within 1 month of outpatient. Leukocytosis resolved. Pulmonary to follow. Generalized weakness Decreased mobility Continue PT. Patient will benefit from skilled rehab. Patient is considering SNF option. DVT prophylaxis: Heparin SQ Advanced directive: Full code
[2024-04-02] MEDS: predniSONE 10 MG TAB PO SCH (20:59)
[2024-04-03 05:35] LABS: Absolute Lymphocytes (CBC) 1.5 K/uL (0.7-4.9); Absolute Monocytes 0.5 K/uL (0.1-1.3); Absolute Neutrophil 10.6 K/uL (1.8-8.0); Basophils % 0.3 % (0-1.3); Eosinophils % 0.1 % (0-4.4); Hematocrit 35.9 % (36.0-45.0); Hemoglobin 11.8 g/dL (12.0-15.0); Lymphocytes % 11.9 % (15.3-44.8); MCH 31.2 pg (27.0-35.0); MCHC 32.8 g/dL (32.0-36.0); MCV 95.1 fL (80-100); MPV 7.8 fL (7.6-11.3); Neutrophils % 83.7 % (41.7-73.7); Nucleated Red Blood Cells % 0.1 % (0-0); Platelets 296 thou/uL (152-406); RBC Red Blood Cell Count 3.77 M/uL (3.86-4.86); Red Cell Distribution Width 15.5 % (12.1-15.2)
[2024-04-03 06:01] LABS: Albumin 2.6 g/dL (3.4-5.0); Albumin/Globulin Ratio 0.7 (1.1-1.8); Anion Gap 9.3 mEq/L (5.0-15.0); Bilirubin Total 0.5 mg/dL (0.2-1.0); Globulin 3.7 g/dL (2.3-3.5); Potassium 5.3 mEq/L (3.5-5.1); Protein, Total 6.3 g/dL (6.4-8.2)
[2024-04-03] MEDS: AMOX/K CLAV 875 MG TAB PO SCH (09:40)
[2024-04-03] MEDS: predniSONE 20 MG TAB PO SCH (09:41)
--- NOTE | 2024-04-03 09:48 | RAD REPORT ---
EXAM DESCRIPTION: RAD - Chest Pa And Lat (2 Views) - 04/03/2024 9:32 am CLINICAL HISTORY: Pneumonia? Chest pain. COMPARISON: Chest Single View dated 01/04/2024; Chest Single View dated 09/30/2023; Chest Single View d ated 09/17/2022; Chest Single View dated 07/21/2022 TECHNIQUE: PA and lateral views of the chest were obtained. FINDINGS: The lungs are hyperexpanded compatible with COPD. The heart is upper limit of normal in si ze. No fracture or aggressive bony process. IMPRESSION: COPD without acute process identified. The USPSTF recommends annual screening for lung cancer with low-dose CT (LDCT) in adults aged 50 to 80 years who have a 20 pack-year smoking history and currently smoke or have quit within the past 15 years.
[2024-04-03 10:05] LABS: Differential Total Cells Count 100; Segmented Neutrophils 79 % (40-80)
[2024-04-03 10:06] LABS: Band Neutrophils 2 % (0-1); Blood Morphology Comment NOT SEEN (NOT SEEN); Lymphocytes 11 % (15-42); Monocytes 5 % (0-10); Myelocytes 3 % (0-0); Platelet Estimate ADEQ
--- NOTE | 2024-04-03 13:43 | P.PN ---
Subjective Date of Service: 04/03/24 Chief Complaint: Dizziness Patient report some episodes of wheezing this morning Patient was seen sitting in a chair this morning. Patient denies any chest pain Physical Examination - Vital Signs Temperature: 98.5 F Blood Pressure: 151/73 Pulse: 85 Respirations: 16 Pulse Ox (%): 100 Assessment And Plan - Plan Physical examination General: Alert and oriented x3, moderate respiratory distress. Neck: Supple, no elevated JVD Heart: Heart sounds 1 and 2 normal, regular rhythm, normal rate, no pedal edema Lungs: Clear to auscultation, improved breath sounds bilaterally, no crackles. Abdomen: Soft, nondistended, nontender, normal bowel sounds. Extremities: No tenderness, no deformity Skin: Normal skin turgor, no rash, no nodules or ulcers. Neuro: No focal motor deficit. Normal speech. Psychiatry: Anxious, no agitation. Diagnosis Multiple falls Patient described episodes where she passes out even when she is eating or walking and falls Case discussed with neurology Dr. Summers. Patient has a history of ADHD, anxiety and depression and states she cannot function without her Adderall or Xanax Differential diagnosis includes narcolepsy/cataplexy, seizures or syncopal episodes or polypharmacy. EEG done, result is pending. 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 Outpatient evaluation with multi sleep latency study, event monitor, and continuous EEG monitor. Patient will follow-up with Dr. Summers as outpatient for the EEG monitoring. Cardiology Dr. Santana has agreed to follow-up with patient for arrangement for event monitor. Patient informed to follow-up with his PCP to arrange for multi sleep latency study. Continue Xanax, Effexor and adderal Anxiety disorder Depression Patient with significant anxiety. Continue home medications. Acute asthma exacerbation Patient given a dose of IV steroid. Clinically stable now. Continue home dose oral prednisone Pulmonary Dr. Perez is following. Bronchodilators as needed. Elevated LFT Chronic liver disease CT abdomen and pelvis done reported unremarkable liver. Liver ultrasound shows coarse liver echotexture indicating chronic liver disease. LFTs levels fluctuating. Elevated LFT secondary to chronic liver disease Continue to monitor. Lung Mass Patient seen and evaluated by pulmonary Dr. Li. Lung lesion suspected to be of infectious origin by Dr. Li. Continue IV Zosyn Serial imaging. May need repeat CT within 1 month of outpatient. Leukocytosis resolved. Pulmonary to follow. Generalized weakness Decreased mobility Continue PT. Patient will benefit from skilled rehab. Patient is being evaluated for placement in [place]. DVT prophylaxis: Heparin SQ Advanced directive: Full code
[2024-04-03] MEDS: IPRATROPIUM BROM 0.5MG/2.5ML NEB SCH (14:38)
[2024-04-03] MEDS: SODIUM ZIRCONIUM CYCLOSILICATE 10 GM/PKT PO ONE (14:45)
--- NOTE | 2024-04-03 16:29 | P.PN ---
Subjective Date of Service: 04/03/24 Chief Complaint: Dizziness States that she is better as far as dizziness concern patient developed more shortness of breath while going to the bathroom Review of Systems General: Weakness Respiratory: Shortness of Breath Physical Examination - Vital Signs Temperature: 98.5 F Blood Pressure: 151/73 Pulse: 85 Respirations: 16 Pulse Ox (%): 100 - Physical Exam General: Alert, Oriented x3, Mild distress Respiratory: Expiratory wheezes Cardiovascular: No edema, Regular rate/rhythm Assessment And Plan - Current Problems (Diagnosis) (1) Falls Current Visit: Yes Status: Acute Plan: Patient complains of feeling dizzy obvious etiology cataplexy doubt seizures I have increased the dose of prednisone (2) Abnormal CT scan of lung Current Visit: Yes Status: Acute Plan: Continue continue with amoxicillin and doxycycline x-ray no obvious pathology repeat CT scan in a month (3) Abnormal liver function test Current Visit: Yes Status: Acute Plan: Possibility of underlying cirrhosis patient denies alcohol abuse will send off a hepatitis profile
[2024-04-03 19:39] LABS: Hepatitis B Core IgM Nonreactive (Nonreactive); Hepatitis B surface AG Interp. Nonreactive (Nonreactive); Hepatitis C Virus Ab Nonreactive (Nonreactive)
[2024-04-03 19:40] LABS: HBsAG Nonreactive Report Report
[2024-04-04 06:24] LABS: Absolute Basophils 0.1 K/uL (0-0.5); Absolute Lymphocytes (CBC) 1.7 K/uL (0.7-4.9); Absolute Monocytes 0.5 K/uL (0.1-1.3); Absolute Neutrophil 10.8 K/uL (1.8-8.0); Basophils % 0.7 % (0-1.3); Eosinophils % 0.1 % (0-4.4); Hematocrit 34.6 % (36.0-45.0); Hemoglobin 11.5 g/dL (12.0-15.0); MCH 31.5 pg (27.0-35.0); MCHC 33.2 g/dL (32.0-36.0); MCV 94.8 fL (80-100); MPV 7.9 fL (7.6-11.3); Monocytes % 3.5 % (3.3-12.3); Neutrophils % 82.7 % (41.7-73.7); Nucleated Red Blood Cells % 0.1 % (0-0); Platelets 264 thou/uL (152-406); RBC Red Blood Cell Count 3.66 M/uL (3.86-4.86); Red Cell Distribution Width 15.2 % (12.1-15.2)
[2024-04-04 06:55] LABS: Albumin 2.6 g/dL (3.4-5.0); Albumin/Globulin Ratio 0.7 (1.1-1.8); Anion Gap 7.8 mEq/L (5.0-15.0); Bilirubin Total 0.4 mg/dL (0.2-1.0); Globulin 3.6 g/dL (2.3-3.5); Potassium 4.8 mEq/L (3.5-5.1); Protein, Total 6.2 g/dL (6.4-8.2)
[2024-04-04 11:12] LABS: Thyroid Stimulating Hormone 0.336 uIU/mL (0.358-3.740)
--- NOTE | 2024-04-04 11:44 | P.PN ---
Subjective Date of Service: 04/04/24 Chief Complaint: Dizziness/asthma exacerbation States that she is feeling better still a little dizzy and weak Review of Systems General: Weakness Respiratory: Shortness of Breath Neurological: Other, As per HPI Physical Examination - Vital Signs Temperature: 97.0 F Blood Pressure: 136/60 Pulse: 102 Respirations: 16 Pulse Ox (%): 97 - Physical Exam General: Alert, Oriented x3 Respiratory: Clear to auscultation bilaterally, Expiratory wheezes Cardiovascular: No edema, Regular rate/rhythm, Normal S1 S2 Assessment And Plan - Current Problems (Diagnosis) (1) Falls Current Visit: Yes Status: Acute Plan: Patient admitted with recurrent falls states that she feels dizzy which has improved consider SNF (2) Abnormal CT scan of lung Current Visit: Yes Status: Acute Plan: Continue continue with amoxicillin and doxycycline x-ray no obvious pathology repeat CT scan in a month (3) Abnormal liver function test Current Visit: Yes Status: Acute Plan: Hepatitis profile is negative for function tests are improving
--- NOTE | 2024-04-04 12:43 | P.PN ---
Date of Service: 04/04/24 Subjective: felt dizzy this morning, lasting slightly longer than prior episodes denies any other new/worsening symptoms ROS: 10 point ROS as noted above, otherwise negative Physical Exam: GEN: Alert, oriented, NAD HEENT: Normal conjunctiva, sclera anicteric CV: Regular rate and rhythm, no edema Pulm: Nonlabored respirations on room air, clear bilaterally Neuro: Normal speech, normal affect vitals reviewed Problem List: Multiple falls, unknown etiology Acute asthma exacerbation; improved Elevated LFTs likely secondary to chronic liver disease Lung Mass, presumed infectious origin Anxiety/Depression Generalized weakness/Decreased mobility Multiple falls, unknown etiology Patient described episodes where she passes out even when she is eating or walking and falls Case discussed with neurology Dr. Summers. Patient has a history of ADHD, anxiety and depression and states she cannot function without her Adderall or Xanax Differential diagnosis includes narcolepsy/cataplexy, seizures or syncopal episodes or polypharmacy. EEG done, WNL Outpatient evaluation with multi sleep latency study, event monitor, and continuous EEG monitor. Echocardiogram is unremarkable, no arrhythmias noted on the manufacturers service representative. Patient will follow-up with Dr. Summers as outpatient for the EEG monitoring. Cardiology Dr. Santana has agreed to follow-up with patient for arrangement for event monitor. Patient informed to follow-up with PCP to arrange for multi sleep latency study. Continue Xanax, Effexor check iron studies, thyroid studies prior h/o iron deficiency Acute asthma exacerbation; improved s/p IV steroids x1. Continue prednisone Pulmonary Dr. Perez is following. PRN Bronchodilators Elevated LFTs likely secondary to chronic liver disease Liver ultrasound (03/30): coarse liver echotexture indicating chronic liver disease. LFTs levels fluctuating throughout hospitalization Suspect elevated LFTs secondary to chronic liver disease. Improving/stable Lung Mass Dr. Li, pulm consulted CT chest on admission noted an irregular mass lesion along left posterior hilar region abutting posterior mediastinal pleura concerning for neoplasia. Presumed infectious origin per pulmonology Previously on IV Zosyn (03/31-04/03) can deescalate to PO amoxicillin / doxy per pulm - needs 2 weeks Serial imaging. repeat CT in 1 month to ensure improvement/resolution of lung mass. Leukocytosis fluctuating - on steroids Anxiety/Depression Patient with significant anxiety. Continue home medications. Hx iron deficiency anemia has hx of iron deficiency anemia requiring IV iron in past. check iron studies. could potentially cause/contribute to her symptoms Generalized weakness/Decreased mobility Continue PT. Patient will benefit from skilled rehab. Approved for SNF at [facility]. VTE: [place] Code: Full Dispo: [facility], ~1 day anticipate dc tomorrow pending iron studies, thyroid studies Time Spent Managing Pts Care (In Minutes): 41
[2024-04-05 05:39] LABS: Albumin 2.7 g/dL (3.4-5.0); Albumin/Globulin Ratio 0.8 (1.1-1.8); Anion Gap 9.1 mEq/L (5.0-15.0); Bilirubin Total 0.3 mg/dL (0.2-1.0); Globulin 3.6 g/dL (2.3-3.5); Magnesium 2.7 mg/dL (1.6-2.4); Potassium 5.1 mEq/L (3.5-5.1); Protein, Total 6.3 g/dL (6.4-8.2)
--- NOTE | 2024-04-05 08:52 | P.DS ---
Admission Date: 03/29/24 Discharge Date: 04/05/24 Reason for Admission: Dizziness/asthma exacerbation Consultations: Neurology - Dr. Summers Pulmonology - Dr. Li Brief History of Present Illness: 69yo F, PMH: asthma, depression, hypertension Patient presents with knee pain, swelling, erythema after sustaining a fall. She reports that earlier today she was working in her kitchen lost consciousness and reports that she was on the ground. She reports that she has had multiple falls and states she has had about 10 in the last month. She denies any head trauma. She denies any previous history of seizures. She denies any recent fevers, chills, diarrhea. She states her appetite has been okay. She does states she has had some indigestion. Imaging was done in the ER including CT of the cervical spine, chest abdomen pelvis, head CT, elbow x-ray her past medical history includes anxiety, asthma, depression, hypertension Hospital Course: Problem List: Multiple falls, unknown etiology Acute asthma exacerbation; improved Elevated LFTs likely secondary to chronic liver disease; improving Lung Mass, presumed infectious origin Anxiety/Depression Generalized weakness/Decreased mobility Physician discharge instructions: Patient presented to ED after a syncopal episode at home. She reports shes been feeling more fatigued and weak lately and states shes had multiple falls recently (~10 in the last month). Episodes of feeling short of breath and dizzy worse recently, but have been ongoing to a lesser degree intermittently for ~[address] head was negative for any acute findings. Carotid ultrasound noted mild bilateral carotid stenosis otherwise negative. Echocardiogram noted 60-65% EF, grade 1 diastolic dysfunction, otherwise unremar kable. No arrhythmias noted on the cardiac monitoring during hosptialization. EEG was normal. Cardiology and neurology were consulted. Case was discussed with Dr. Summers (Neuro) who recommended to consider further testing including multi-sleep latency study, continuous EEG monitoring to further evaluate for possible narcolepsy/cataplexy - to be done on an outpatient basis. Dr. Santana, statistics professor, had recommended follow up with Cardiology in near future to arrange for outpatient event monitor. The exact etiology of her dizziness / fall episodes remains unclear. Discussed following up outpatient to further investigate/rule-out narcolepsy/cataplexy, vestibular issues, anxiety, and arrhythmia. CT chest/abdomen on admission noted an irregular mass lesion along the left posterior hilar region abutting the posterior mediastinal pleura suspicious for neoplasia vs infection. Dr. Li, bottom presser, was consulted who felt lung lesion to be of infectious origin, less likely cancer. She was started on empiric zosyn to cover suspected infective process. This was de-escalated to augmentin and doxycycline per Pulmonology recommendations - to complete a total of 2 weeks. Blood cultures have been without growth since 03/31. Follow up with Pulmonology in 1 month for further discussion and to consider repeat CT in ~1 month to ensure continued improvement/resolution of lung mass. LFT levels have been fluctuating throughout hospitalization. Liver ultrasound with findings compatible with chronic liver disease. Suspect elevated LFTs secondary to chronic liver disease. LFTs on admission -> peak -> discharge: AST 17 -> 238 -> 64 ALT 21 -> 536 -> 194 ALP 79 -> 217 -> 127 Medications: Augmentin and Doxy for 12 more days (2 weeks total) continue home meds as previously prescribed Follow up: PCP 3-5 days Neuro 2-4 weeks Please call to schedule / confirm appointments Physical Exam: GEN: Alert, oriented, NAD HEENT: Normal conjunctiva, sclera anicteric CV: Regular rate and rhythm, no edema Pulm: Nonlabored respirations on room air, clear bilaterally Neuro: Normal speech, normal affect Vital Signs/Physical Exam: Temp Pulse Resp BP Pulse Ox 97.0 F 80 14 189/79 H 96 04/05/24 04:00 04/05/24 04:00 04/05/24 04:00 04/05/24 04:00 04/05/24 04:00 Laboratory Data at Discharge: WBC 13.10 thou/uL (4.3-10.9) H 04/04/24 06:11 Hgb 11.5 g/dL (12.0-15.0) L 04/04/24 06:11 Hct 34.6 % (36.0-45.0) L 04/04/24 06:11 Plt Count 264 thou/uL (152-406) 04/04/24 06:11 PT 10.6 SECONDS (9.4-12.5) 03/28/24 21:03 INR 0.94 03/28/24 21:03 APTT 24.7 SECONDS (24.3-36.9) 03/28/24 21:03 Sodium 139 mEq/L (136-145) 04/05/24 04:22 Potassium 5.1 mEq/L (3.5-5.1) 04/05/24 04:22 BUN 36 mg/dL (7-18) H 04/05/24 04:22 Creatinine 1.03 mg/dL (0.55-1.02) H 04/05/24 04:22 Glucose 150 mg/dL (74-106) H 04/05/24 04:22 Magnesium 2.7 mg/dL (1.6-2.4) H 04/05/24 04:22 Total Bilirubin 0.3 mg/dL (0.2-1.0) 04/05/24 04:22 AST 61 U/L (15-37) H 04/05/24 04:22 ALT 188 U/L (13-56) H 04/05/24 04:22 Alkaline Phosphatase 140 U/L (45-117) H 04/05/24 04:22 Home Medications: Fluticasone/Umeclidin/Vilanter [Trelegy Ellipta 100-62.5-25] 1 puff PO BEDTIME PRN 07/17/22 predniSONE [Deltasone*] 10 mg PO DAILY 90 Days #90 tab 09/18/22 Benzonatate [Tessalon Perle*] 100 mg PO TID PRN #60 cap 01/07/24 Albuterol Inhaler [Ventolin Inhaler*] 2 puff IH Q6H PRN #1 inh 01/08/24 Venlafaxine HCl [Effexor XR] 150 mg PO DAILY #30 cap 01/08/24 Alprazolam [Xanax] 1 mg PO BID PRN #60 tab 03/15/24 Ipratropium Neb [Atrovent*] 0.5 mg NEB [id number] PRN 03/29/24 Venlafaxine HCl *Xr* [Effexor XR] 75 mg PO DAILY 03/29/24 Amox/Clavulanate [Augmentin 875-125 Tab*] 875 mg PO BID 12 Days #24 tab 04/05/24 Doxycycline Hyclate 100 mg PO BID 12 Days #24 tab 04/05/24 New Medications: Amox/Clavulanate [Augmentin 875-125 Tab*] 875 mg PO BID 12 Days #24 tab Doxycycline Hyclate 100 mg PO BID 12 Days #24 tab Physician Discharge Instructions: Physician discharge instructions: Patient presented to ED after a syncopal episode at home. She reports shes been feeling more fatigued and weak lately and states shes had multiple falls recently (~10 in the last month). Episodes of feeling short of breath and dizzy worse recently, but have been ongoing to a lesser degree intermittently for ~[address] head was negative for any acute findings. Carotid ultrasound noted mild bilateral carotid stenosis otherwise negative. Echocardiogram noted 60-65% EF, grade 1 diastolic dysfunction, otherwise unremarkable. No arrhythmias noted on the cardiac monitoring during hosptialization. EEG was normal. Cardiology and neurology were consulted. Case was discussed with Dr. Summers (Neuro) who recommended to consider further testing including multi-sleep latency study, continuous EEG monitoring to further evaluate for possible narcolepsy/cataplexy - to be done on an outpatient basis. Dr. Santana, statistics professor, had recommended follow up with Cardiology in near future to arrange for outpatient event monitor. The exact etiology of her dizziness / fall episodes remains unclear. Discussed following up outpatient to further investigate/rule-out narcolepsy/cataplexy, vestibular issues, anxiety, and arrhythmia. CT chest/abdomen on admission noted an irregular mass lesion along the left posterior hilar region abutting the posterior mediastinal pleura suspicious for neoplasia vs infection. Dr. Li, bottom presser, was consulted who felt lung lesion to be of infectious origin, less likely cancer. She was started on empiric zosyn to cover suspected infective process. This was de-escalated to augmentin and doxycycline per Pulmonology recommendations - to complete a total of 2 weeks. Blood cultures have been without growth since 03/31. Follow up with Pulmonology in 1 month for further discussion and to consider repeat CT in ~1 month to ensure continued improvement/resolution of lung mass. LFT levels have been fluctuating throughout hospitalization. Liver ultrasound with findings compatible with chronic liver disease. Suspect elevated LFTs secondary to chronic liver disease. LFTs on admission -> peak -> discharge: AST 17 -> 238 -> 64 ALT 21 -> 536 -> 194 ALP 79 -> 217 -> 127 Medications: Augmentin and Doxy for 12 more days (2 weeks total) continue home meds as previously prescribed Follow up: PCP 3-5 days Neuro 2-4 weeks Please call to schedule / confirm appointments Followup: Shannan Norwood MD [Primary Care Provider] - Time spent managing pt's care (in minutes): 45
[2024-04-05 12:39] VITALS: BP 159/75; TEMP 97.3; O2SAT 98
--- NOTE | 2024-04-10 13:09 | EKG ---
Test Date: 2024-03-31 Test Time: 10:50:53 Director Of Operations Home [facility]: [facility] MEASUREMENT RESULTS: Intervals: Rate: 93 AL: 136 QRSD: 68 QT: 344 QTc: 427 [place]: P: 80 AL: 136 QRS: 75 T: 58 INTERPRETIVE STATEMENTS: Normal sinus rhythm Nonspecific T wave abnormality Abnormal ECG Compared to ECG 03/28/2024 19:05:11 No significant changes Electronically Signed On 04-10-24 12:53:23 CDT by Khang Caldwell
--- NOTE | 2024-04-10 13:09 | EKG ---
Test Date: 2024-03-31 Test Time: 10:51:36 Flour Blender Helper: [facility] MEASUREMENT RESULTS: Intervals: Rate: 91 [place]: 136 QRSD: 68 QT: 336 QTc: 413 [place]: P: 78 [place]: 136 QRS: 75 T: 41 INTERPRETIVE STATEMENTS: Normal sinus rhythm T wave abnormality, consider lateral ischemia Abnormal ECG Compared to ECG 03/28/2024 19:05:11 Possible ischemia now present T-wave abnormality still present Electronically Signed On 04-10-24 12:53:22 CDT by Khang Caldwell
== END 2024-04-05 12:20 | DRG 312 ==
LOC: ER 17:51 → 2ND 03-29 03:30 → OBSVTOIN 03-29 18:27
PROVIDERS: ADMIT Internal Medicine; ATTEND Hospitalist
DX: R55 Syncope and collapse (principal); J45.901 Unspecified asthma with (acute) exacerbation; G47.411 Narcolepsy with cataplexy; I10 Essential (primary) hypertension; F32.A Depression, unspecified; F41.9 Anxiety disorder, unspecified; F90.9 Attention-deficit hyperactivity disorder, unspecified type; D72.829 Elevated white blood cell count, unspecified; M81.0 Age-related osteoporosis without current pathological fracture; I65.23 Occlusion and stenosis of bilateral carotid arteries; K21.9 Gastro-esophageal reflux disease without esophagitis; R29.6 Repeated falls; R91.8 Other nonspecific abnormal finding of lung field; R79.89 Other specified abnormal findings of blood chemistry; Z88.6 Allergy status to analgesic agent; Z63.5 Disruption of family by separation and divorce; Z88.8 Allergy status to other drugs, medicaments and biological substances; Z91.81 History of falling; Z98.51 Tubal ligation status; Z79.82 Long term (current) use of aspirin; Z79.01 Long term (current) use of anticoagulants; Z79.52 Long term (current) use of systemic steroids; Z90.49 Acquired absence of other specified parts of digestive tract; Z79.899 Other long term (current) drug therapy; W18.30XA Fall on same level, unspecified, initial encounter; Y93.89 Activity, other specified; Y92.000 Kitchen of unspecified non-institutional (private) residence as the place of occurrence of the external cause; Y99.9 Unspecified external cause status
CPT/HCPCS: 36415; 70450; 70460; 70470; 71046; 71260; 72125; 74177; 76705; 80048; 80053; 80074; 80076; 81001; 82565; 82947; 83540; 83735; 84439; 84443; 84466; 84484; 85025; 85610; 85730; 87040; 93005; 93306; 93880; 94640; 95819; 96374; 97112; 97116; 97161; 97530; 99284; G0378; J1644; J1650; J2270; J2543; J2919; J7512; J7605; J7644; Q9967

== ENCOUNTER 2024-04-27 14:10 | Inpatient (IN) | payer OTHER ==
[2024-04-27 14:56] LABS: Absolute Basophils 0.1 K/uL (0-0.5); Absolute Monocytes 0.5 K/uL (0.1-1.3); Absolute Neutrophil 12.5 K/uL (1.8-8.0); Basophils % 0.5 % (0-1.3); Hematocrit 41.7 % (36.0-45.0); Hemoglobin 14.1 g/dL (12.0-15.0); Lymphocytes % 6.9 % (15.3-44.8); MCH 31.7 pg (27.0-35.0); MCHC 33.8 g/dL (32.0-36.0); MCV 93.9 fL (80-100); MPV 7.3 fL (7.6-11.3); Monocytes % 3.3 % (3.3-12.3); Neutrophils % 89.3 % (41.7-73.7); Nucleated Red Blood Cells % 0.1 % (0-0); Platelets 306 thou/uL (152-406); RBC Red Blood Cell Count 4.45 M/uL (3.86-4.86); Red Cell Distribution Width 15.1 % (12.1-15.2)
[2024-04-27 15:14] LABS: Anion Gap 9.9 mEq/L (5.0-15.0); Magnesium 2.3 mg/dL (1.6-2.4); Potassium 3.9 mEq/L (3.5-5.1); Troponin High Sensitivity 25.9 pg/mL (<58.9)
--- NOTE | 2024-04-27 15:36 | RAD REPORT ---
EXAMINATION: ONE VIEW CHEST XR CLINICAL INDICATION: generalized weaknes TECHNIQUE: Frontal chest projection is submitted. Examination is limited by patient positioning and t echnique. COMPARISON: 04/03/2024, 01/04/2024 FINDINGS: The lungs are diffusely emphysematous but grossly clear. The heart is upper limit of normal in size. No displaced fractures identified. IMPRESSION: COPD without an acute process suspected. The USPSTF recommends annual screening for lung cancer with low-dose computed tomography (LDCT) in ad ults aged 50 to 80 years who have a 20 pack-year smoking history and currently smoke or have quit within the past 15 years. Screening should be discontinued once a person has not smoked for 15 years or develops a health problem that substantially limits life expectancy or the ability or willingness to have curative lung surgery.
[2024-04-27 16:46] LABS: Blood Morphology Comment NOT SEEN (NOT SEEN); Platelet Estimate ADEQ; White Blood Cell Scan OK (OK)
[2024-04-27 17:14] LABS: Specific Gravity > 1.030 (1.005-1.030); Sqamous Epithelial <5 /HPF (None Seen); Urine Bacteria <20 /HPF (<20); Urine Bilirubin NEGATIVE (Negative); Urine Blood 1+ (Negative); Urine Clarity Extremely Turbid (Clear); Urine Color Yellow (Yellow); Urine Culture Reflex Order NOT NEEDED; Urine Glucose TRACE (Negative); Urine Ketones 2+ (Negative); Urine Microscopic Reflex YN ORDER UMIC; Urine Mucus 2+ /HPF (None Seen); Urine Nitrite NEGATIVE (Negative); Urine Protein 1+ (Negative); Urine Urobilinogen 1+ (Normal); Urine WBC <5 /HPF (<5); Urine WBC Clump Rare /HPF (None Seen); Urine Yeast (Budding) Trace /HPF (None Seen)
--- NOTE | 2024-04-27 17:58 | EDPHYS ---
Physician Documentation [facility] Name: Irma Cain Age: 69 yrs Sex: Female : 1955 Arrival Date: 04/27/2024 Time: 14:10 Bed 20 Private MD: ED Physician Michael Tracy HPI: 04/27 16:30 This 69 yrs old Female presents to ER via EMS with complaints of Nausea, Dizziness. ms3 16:30 69-year-old female past medical history of ADD/ADHD, anxiety, asthma, depression, ms3 hypertension presents to the emergency department for generalized weakness. Patient states she only goes between her bed and her couch for the last month. Patient denies pain at this time. She denies any alleviating or inciting factors. Historical: - Allergies: 14:15 Talwin; kc6 14:15 Ibuprofen; kc6 14:15 Benadryl; kc6 14:15 Aspirin; kc6 14:15 Neosporin (ikf-[id number]); kc6 14:15 NSAIDS; kc6 - PMHx: 14:15 ADD/ADHD; Anxiety; Asthma; depressive disorder; Hypertensive disorder; UNMEDICATED; kc6 Pneumonia; - PSHx: 14:15 Cholecystectomy; kc6 - Immunization history:: Adult Immunizations up to date. - Infectious Disease History:: Denies. - Social history:: Smoking status: Patient denies any tobacco usage or history of. ROS: 16:30 Cardiovascular: Negative for chest pain, and palpitations. Respiratory: Negative for ms3 shortness of breath, cough, wheezing, and pleuritic chest pain, Abdomen/GI: Negative for abdominal pain, nausea, vomiting, diarrhea, and constipation, MS/Extremity: Negative for injury and deformity, 16:30 Constitutional: Positive for malaise, Generalized weakness, Exam: 16:30 Constitutional: This is a well developed, well nourished patient who is awake, alert, ms3 and in no acute distress. Head/Face: Normocephalic, atraumatic. Chest/axilla: Normal chest wall appearance and motion. Nontender with no deformity. Cardiovascular: Regular rate and rhythm with a normal S1 and S2. No gallops, murmurs, or rubs. Normal PMI, no JVD. No pulse deficits. Respiratory: Lungs have equal breath sounds bilaterally, clear to auscultation and percussion. No rales, rhonchi or wheezes noted. No increased work of breathing, no retractions or nasal flaring. Abdomen/GI: Soft, non-tender, with normal bowel sounds. No distension or tympany. No guarding or rebound. No evidence of tenderness throughout. Skin: Warm, dry with normal turgor. Normal color with no rashes, no lesions, and no evidence of cellulitis. 16:32 ECG was reviewed by the Attending Physician. ms3 Vital Signs: 14:12 BP 179 / 84; Pulse 99; Resp 19 S; Temp 98.2(O); Pulse Ox 95% on R/A; Weight 57.15 kg kc6 (R); Height 5 ft. 0 in. (R); Pain 0/10; 16:23 BP 182 / 91; Pulse 101; Resp 18 S; Pulse Ox 95% on R/A; kc6 17:16 BP 159 / 96; Pulse 90; Resp 16 S; Pulse Ox 100% on R/A; kc6 19:04 BP 187 / 89; Pulse 102; Resp 19 S; Pulse Ox 93% on R/A; kc6 14:12 Body Mass Index 24.61 (57.15 kg, 152.4 cm) kc6 14:12 Pain Scale: Adult kc6 MDM: 14:40 Patient medically screened. ms3 16:30 Differential diagnosis: AK versus electrolyte abnormality versus dehydration versus ms3 deconditioning versus UTI. Data reviewed: vital signs, nurses notes, lab test result(s), EKG, radiologic studies, and as a result, I will admit patient. Consideration of Admission/Observation Patient was admitted/placed on observation. 16:32 Management of patient was discussed with the following: Geologic Technician: Discussed case with ms3 Dr Caldwell. Would like to trend troponins. Recommends ASA. No heparin at this time.. 16:35 ED course: Cannot give ASA due to patient being allergic to medication. ms3 04/27 14:29 Order name: Basic Metabolic Panel; Complete Time: 15:37 ms3 04/27 14:29 Order name: CBC with Diff; Complete Time: 17:27 ms3 04/27 14:29 Order name: Magnesium; Complete Time: 15:37 ms3 04/27 14:29 Order name: Troponin HS; Complete Time: 15:37 ms3 04/27 15:10 Order name: Urinalysis w/ reflexes; Complete Time: 17:27 ms3 04/27 16:46 Order name: CBC Smear Scan; Complete Time: 17:27 EDMS 04/27 18:30 Order name: Urinalysis w/ reflexes EDMS 04/27 18:30 Order name: CBC with Automated Diff EDMS 04/27 18:30 Order name: CBC with Automated Diff EDMS 04/27 18:30 Order name: Comprehensive Metabolic Panel EDMS 04/27 18:30 Order name: Comprehensive Metabolic Panel EDMS 04/27 18:30 Order name: Troponin High Sensitivity EDMS 04/27 18:30 Order name: Troponin High Sensitivity EDMS 04/27 18:30 Order name: Troponin High Sensitivity EDMS 04/27 18:30 Order name: Troponin High Sensitivity EDMS 04/28 07:04 Order name: Troponin High Sensitivity EDMS 04/27 14:29 Order name: XRAY Chest (1 view); Complete Time: 15:37 ms3 04/27 18:30 Order name: Echo with Doppler EDMS 04/27 14:29 Order name: EKG; Complete Time: 14:30 ms3 04/27 18:30 Order name: CONS Physician Consult EDMS 04/27 14:29 Order name: Cardiac monitoring; Complete Time: 14:57 ms3 04/27 14:29 Order name: EKG - Nurse/Tech; Complete Time: 14:57 ms3 04/27 14:29 Order name: IV Saline Lock; Complete Time: 14:50 ms3 04/27 14:29 Order name: Labs collected and sent; Complete Time: 14:50 ms3 04/27 14:29 Order name: O2 Per Protocol; Complete Time: 14:33 ms3 04/27 14:29 Order name: O2 Sat Monitoring; Complete Time: 14:33 ms3 EC:32 Rate is 97 beats/min. Rhythm is regular. QRS Kerrick is Normal. MN interval is normal. QRS ms3 interval is normal. ST Segment is depressed in leads II, III, aVF, V5, V6. Clinical impression: NSR w/ Non-specific ST/T Changes. Interpreted by me. Reviewed by me. Administered Medications: No medications were administered Disposition Summary: 04/27/24 17:57 Hospitalization Ordered Notes: Hospitalization Status: Observation ms3 Provider: Yassine Carlin ms3 Condition: Stable ms3 Problem: new ms3 Symptoms: are unchanged ms3 Bed/Room Type: Standard ms3 Location: Telemetry/MedSurg (observation)(04/28/24 10:44) 4 Room Assignment: 414(04/28/24 10:45) [facility] Diagnosis - Muscle weakness (generalized) ms3 - Abnormal electrocardiogram [ECG] [EKG] ms3 - Essential (primary) hypertension ms3 Forms: - Medication Reconciliation Form ms3 - SBAR form ms3 - Leadership Thank You Letter ms3 Signatures: Dispatcher [employer] EDMS Ghada Dyer 4 Michael Tracy, DO ms3 Charu Cornejo, RN RN vc1 Joselyn Garza RN RN kc6 Bev Carlos [facility] Corrections: (The following items were deleted from the chart) 14:30 14:30 BASIC METABOLIC PANEL+C.LAB.BRZ ordered. EDMS EDMS 14:30 14:30 CBC+H.LAB.BRZ ordered. EDMS EDMS 14:30 14:30 MAGNESIUM+C.LAB.BRZ ordered. EDMS EDMS 14:30 14:30 Troponin High Sensitivity+C.LAB.BRZ ordered. EDMS EDMS 21:23 17:57 Telemetry/MedSurg (observation) ms3 kmf 21:23 17:57 ms3 [facility] 04/28 06:12 10 21:23 HLD1 f vc1 04/28 10:44 10 21:23 [facility] ER HOLD kmf mb4 04/28 10:44 06:12 ERHOLD- vc1 mb4 10:45 10:44 mb4 mb4
--- NOTE | 2024-04-27 17:58 | ER ---
Nurse's Notes [facility] Name: Irma Cain Age: 69 yrs Sex: Female : 1955 Arrival Date: 04/27/2024 Time: 14:10 Bed 20 Private MD: Diagnosis: Muscle weakness (generalized);Abnormal electrocardiogram [ECG] [EKG];Essential (primary) hypertension Presentation: 04/27 14:12 Chief complaint: EMS states: they were toned out for nausea and dizziness that's been kc6 ongoing for "months". pt states she had an appt. with her PCP today but couldn't;t get herself dressed this AM. Coronavirus screen: At this time, the client does not indicate any symptoms associated with coronavirus-19. Ebola Screen: No symptoms or risks identified at this time. Initial Sepsis Screen: Does the patient meet any 2 criteria? HR > 90 bpm. Does the patient have a suspected source of infection? No. Patient's initial sepsis screen is negative. Risk Assessment: Do you want to hurt yourself or someone else? Patient reports no desire to harm self or others. Onset of symptoms was April 27, 2024. 14:12 Method Of Arrival: EMS: [facility] kc6 14:12 Acuity: FELA 3 kc6 14:15 Care prior to arrival: Medication(s) given: zofran 4 mg. kc6 Triage Assessment: 14:15 General: Appears in no apparent distress. comfortable, well groomed, well developed, kc6 Behavior is calm, cooperative, appropriate for age. Pain: Denies pain. EENT: No signs and/or symptoms were reported regarding the EENT system. Neuro: Level of Consciousness is awake, alert, obeys commands, Oriented to person, place, time, situation, Appropriate for age Reports dizziness. Cardiovascular: Capillary refill < 3 seconds. Respiratory: Airway is patent Trachea midline Respiratory effort is even, unlabored, Respiratory pattern is regular, symmetrical. GI: Abdomen is flat, non-distended, Reports nausea, Patient currently denies abdominal pain, diarrhea, vomiting. : No signs and/or symptoms were reported regarding the genitourinary system. Derm: No signs and/or symptoms reported regarding the dermatologic system. Skin is intact, is healthy with good turgor, Skin is pink, warm \\T\\ dry. Musculoskeletal: No signs and/or symptoms reported regarding the musculoskeletal system. Circulation, motion, and sensation intact. Capillary refill < 3 seconds, Range of motion: intact in all extremities. Historical: - Allergies: 14:15 Talwin; kc6 14:15 Ibuprofen; kc6 14:15 Benadryl; kc6 14:15 Aspirin; kc6 14:15 Neosporin ([id number]); kc6 14:15 NSAIDS; kc6 - PMHx: 14:15 ADD/ADHD; Anxiety; Asthma; depressive disorder; Hypertensive disorder; UNMEDICATED; kc6 Pneumonia; - PSHx: 14:15 Cholecystectomy; kc6 - Immunization history:: Adult Immunizations up to date. - Infectious Disease History:: Denies. - Social history:: Smoking status: Patient denies any tobacco usage or history of. Screenin:17 [facility] ED Fall Risk Assessment (Adult) History of falling in the last 3 months, kc6 including since admission No falls in past 3 months (0 pts) Confusion or Disorientation No (0 pts) Intoxicated or Sedated No (0 pts) Impaired Gait No (0 pts) Mobility Assist Device Used No (0 pt) Altered Elimination No (0 pt) Score/Fall Risk Level 0 - 2 = Low Risk Oriented to surroundings. Abuse screen: Denies threats or abuse. Denies injuries from another. Nutritional screening: No deficits noted. Tuberculosis screening: No symptoms or risk factors identified. Assessment: 14:16 Reassessment: please see triage. [facility] 16:23 Reassessment: Patient appears in no apparent distress at this time. No changes from [facility] previously documented assessment. Patient and/or family updated on plan of care and expected duration. Pain level reassessed. Patient is alert, oriented x 3, equal unlabored respirations, skin warm/dry/pink. 17:16 Reassessment: Patient appears in no apparent distress at this time. No changes from [facility] previously documented assessment. Patient and/or family updated on plan of care and expected duration. Pain level reassessed. Patient is alert, oriented x 3, equal unlabored respirations, skin warm/dry/pink. 19:04 Reassessment: Patient appears in no apparent distress at this time. No changes from [facility] previously documented assessment. Patient and/or family updated on plan of care and expected duration. Pain level reassessed. Patient is alert, oriented x 3, equal unlabored respirations, skin warm/dry/pink. Vital Signs: 14:12 BP 179 / 84; Pulse 99; Resp 19 S; Temp 98.2(O); Pulse Ox 95% on R/A; Weight 57.15 kg kc6 (R); Height 5 ft. 0 in. (R); Pain 0/10; 16:23 BP 182 / 91; Pulse 101; Resp 18 S; Pulse Ox 95% on R/A; kc6 17:16 BP 159 / 96; Pulse 90; Resp 16 S; Pulse Ox 100% on R/A; kc6 19:04 BP 187 / 89; Pulse 102; Resp 19 S; Pulse Ox 93% on R/A; kc6 14:12 Body Mass Index 24.61 (57.15 kg, 152.4 cm) kc6 14:12 Pain Scale: Adult [facility] ED Course: 14:12 Patient arrived in ED. kc6 14:15 Triage completed. kc6 14:15 Arm band placed on. kc6 14:17 Patient has correct armband on for positive identification. Bed in low position. Call kc light in reach. Side rails up X2. Pulse ox on. NIBP on. Door closed. Noise minimized. Lights dimmed. Warm blanket given. Pillow given. 14:17 Patient maintains SpO2 saturation greater than 95% on room air. kc6 14:19 Michael Tracy DO is Attending Physician. ms3 14:33 Joselyn Garza RN is Primary Nurse. kc6 14:50 Missed attempt(s): 24 gauge in right antecubital area. Inserted saline lock: 22 gauge [facility] in left antecubital area, using aseptic technique. Blood collected. Flushed with 10 mL NS. 15:26 XRAY Chest (1 view) In Process Unspecified. EDMS 17:56 Yassine Carlin MD is Hospitalizing Provider. ms3 19:04 Report given to Ana Maria Rodriguez RN. kc6 04/28 11:36 1110 CM attempted initial assessment, patient lying in bed with eyes closed, ane respirations even and unlabored. 1136 CM met with Ms. Cain at the bedside in the ED exam room. Patient identified name and . Demographic sheet confirmed. Patient states she lives alone in a ground floor apartment. She reports that prior to admission, she ambulates well without assistive devices. DME in the home includes a shower chair. Patient states she has HH through [facility] where a nurse visits once a week. She states she does not have an MPOA in place at this time and is changing PCPs from Shannan Norwood MD, out of [place], [place], and is attempting to get established with in [place], [place]. Ms. Cain does not have home oxygen or other medical services at this time. Patient's preferred plan is to return home, continue HH with [facility] and states she can transport herself home upon discharge. CM team will continue to follow and coordinate care during this hospital stay. Administered Medications: No medications were administered Outcome: 04/27 17:57 Decision to Hospitalize by Provider. ms3 04/28 12:00 Patient left the ED. ph Signatures: Dispatcher [employer] EDMS Elda King RN RN ph Sims, Marcus, DO DO ms3 Joselyn Garza RN RN kc6 Alyce Vaughn RN RN ane Corrections: (The following items were deleted from the chart) 04/27 17:16 17:16 BP 159 / 96; simba cottrell
--- NOTE | 2024-04-27 18:23 | P.HP ---
Certification for Inpatient Patient admitted to: Observation With expected LOS: <2 Midnights Practitioner: I am a practitioner with admitting privileges, knowledge of patient current condition, hospital course, and medical plan of care. Services: Services provided to patient in accordance with Admission requirements found in Title 42 Section 412.3 of the Code of Federal Regulations Patient History Date of Service: 04/27/24 Reason for admission: Generlized weakness History of Present Illness: 69 yrs old Female with past medical history of ADD, asthma, anxiety, depression, hypertension who was brought to ER with complaints of Nausea, Dizziness. And generalized weakness. Patient denies any fever or chills. No nausea vomiting or diarrhea. Denies any chest pain or shortness of breath. No sick contacts. Patient states that she has been having weakness of the legs so she was not ambulating too well. Patient was assessed in the ER and had a workup with EKG showing ST depressions inferolateral leads and was admitted for further management. Cardiology was consulted and admitted for trending cardiac enzymes Allergies aspirin Allergy (Intermediate, Verified 11/07/12 16:55) Anaphylaxis bacitracin [From Neosporin ([id number])] Allergy (Intermediate, Verified 11/07/12 16:55) aquino skin bacitracin zinc [From Neosporin (hrz-mdy-rabll)] Allergy (Intermediate, Verified 11/07/12 16:55) aquino skin neomycin sulfate [From Neosporin (lnj-qlc-tymlm)] Allergy (Intermediate, Verified 11/07/12 16:55) aquino skin polymyxin B [From Neosporin (npj-syz-[id number])] Allergy (Intermediate, Verified 11/07/12 16:55) aquino skin NSAIDS Allergy (Severe, Uncoded 03/29/24 04:24) Anaphylaxis Neosporin ([id number]-ita-nvpkp) Allergy (Uncoded 06/03/18 18:20) Itching Home medications list reviewed: Yes Home Medications: Fluticasone/Umeclidin/Vilanter [Trelegy Ellipta 100-62.5-25] 1 puff PO BEDTIME PRN 07/17/22 predniSONE [Deltasone*] 10 mg PO DAILY 90 Days #90 tab 09/18/22 Benzonatate [Tessalon Perle*] 100 mg PO TID PRN #60 cap 01/07/24 Albuterol Inhaler [Ventolin Inhaler*] 2 puff IH Q6H PRN #1 inh 01/08/24 Venlafaxine HCl [Effexor XR] 150 mg PO DAILY #30 cap 01/08/24 Alprazolam [Xanax] 1 mg PO BID PRN #60 tab 03/15/24 Ipratropium Neb [Atrovent*] 0.5 mg NEB [id number] PRN 03/29/24 Venlafaxine HCl *Xr* [Effexor XR] 75 mg PO DAILY 03/29/24 Amox/Clavulanate [Augmentin 875-125 Tab*] 875 mg PO BID 12 Days #24 tab 04/05/24 Doxycycline Hyclate 100 mg PO BID 12 Days #24 tab 04/05/24 - Past Medical/Surgical History Diabetic: No Past Medical History: Reviewed- Non-Contributory -: Asthma -: Depression -: Osteoporosis -: GERD with hiatal hernia -: Obesity -: Hypertension -: ADHD Past Surgical History: Reviewed- Non-Contributory -: -: Tubal ligation -: cholecystectomy -: cataract surgery -: rt shoulder sx x2 -: sx on left knee Psychosocial/ Personal History: Patient is . She has 1 child. She is retired. - Family History Family History: Reviewed- Non-Contributory - Family History Mother -: Heart disease, Hypertension, Diabetes Father -: Heart disease, Hypertension, Lung disease, Cancer, Other (see notes) Notes: asbestosis - Social History Smoking Status: Never smoker Alcohol use: No CD- Drugs: No Caffeine use: Yes Review of Systems 10-point ROS is otherwise unremarkable Physical Examination - Vital Signs Temperature: 97.2 F Blood Pressure: 128/72 Pulse: 78 Respirations: 18 Pulse Ox (%): 94 - Physical Exam General: Alert, In no apparent distress HEENT: Atraumatic, Normocephalic Neck: Supple Respiratory: Clear to auscultation bilaterally, Normal air movement Cardiovascular: Regular rate/rhythm, Normal S1 S2 Capillary refill: <2 Seconds Gastrointestinal: Soft and benign, W/out hepatosplenomegaly Musculoskeletal: No clubbing, No swelling Integumentary: No rashes, No tenderness/swelling Neurological: Normal speech, Normal strength at 5/5 x4 extr Lymphatics: No axilla or inguinal lymphadenopathy - Studies Laboratory Data (last 24 hrs) 04/27/24 04/27/24 14:48 14:48 WBC 14.00 H Hgb 14.1 Hct 41.7 Plt Count 306 Sodium 138 Potassium 3.9 BUN 32 H Creatinine 1.31 H Glucose 111 H Magnesium 2.3 Assessment and Plan - Plan Unstable angina Will trend cardiac enzymes Will monitor telemetry Started on aspirin and statin EKG changes monitored Patient denies any chest pain Will get an echocardiogram Cardiology consult Hypertension Antihypertensives titrated Continue home medications and titrate as needed Acute kidney injury on CKD stage II Monitor renal parameters Electrolytes monitor and replace accordingly Anxiety COPD ADD Depression Continue home medications and titrate as needed GI/DVT prophylaxis Advanced directive full code Discharge Plan: Home Plan to discharge in: 48 Hours - Advance Directives Does patient have a Living Will: No Does patient have a Durable POA for Healthcare: No - Code Status/Comfort Care Code Status: Full Code Time Spent Managing Pts Care (In Minutes): 48
[2024-04-27] MEDS ORDERED: Fluticasone/Umeclidin/Vilanter [Trelegy Ellipta 100-62.5-25] Blst.W.Dev *PT OWN MED PO PRN (21:45)
[2024-04-28 06:40] LABS: Absolute Basophils 0.1 K/uL (0-0.5); Absolute Eosinophils 0.1 K/uL (0-0.5); Absolute Lymphocytes (CBC) 3.3 K/uL (0.7-4.9); Absolute Monocytes 1.4 K/uL (0.1-1.3); Absolute Neutrophil 8.9 K/uL (1.8-8.0); Basophils % 0.5 % (0-1.3); Eosinophils % 0.9 % (0-4.4); Hematocrit 40.2 % (36.0-45.0); Hemoglobin 13.4 g/dL (12.0-15.0); Lymphocytes % 23.9 % (15.3-44.8); MCH 31.3 pg (27.0-35.0); MCHC 33.3 g/dL (32.0-36.0); MPV 7.3 fL (7.6-11.3); Monocytes % 10.1 % (3.3-12.3); Neutrophils % 64.6 % (41.7-73.7); Nucleated Red Blood Cells % 0.1 % (0-0); Platelets 349 thou/uL (152-406); RBC Red Blood Cell Count 4.28 M/uL (3.86-4.86); Red Cell Distribution Width 15.2 % (12.1-15.2)
[2024-04-28 07:03] LABS: Albumin 3.3 g/dL (3.4-5.0); Albumin/Globulin Ratio 0.9 (1.1-1.8); Anion Gap 7.7 mEq/L (5.0-15.0); Bilirubin Total 0.8 mg/dL (0.2-1.0); Globulin 3.5 g/dL (2.3-3.5); Potassium 3.7 mEq/L (3.5-5.1); Protein, Total 6.8 g/dL (6.4-8.2); Troponin High Sensitivity 36.8 pg/mL (<58.9)
[2024-04-28] MEDS ORDERED: HOME MED 1 EA UNK (Venlafaxine Hcl [Effexor Xr] 150 MG Cap.Er.24h) PO SCH (09:00)
[2024-04-28] MEDS: ENOXAPARIN 30 MG/0.3 ML SQ SCH (09:00)
[2024-04-28] MEDS ORDERED: ENOXAPARIN 30 MG/0.3 ML SQ ONE (09:14)
[2024-04-28] MEDS ORDERED: ACETAMINOPHEN 325 MG TABLET ONE (10:02)
[2024-04-28] MEDS ORDERED: ALPRAZOLAM 1 MG TABLET ONE (10:03)
[2024-04-28] MEDS: ACETAMINOPHEN 325 MG TABLET PO PRN (10:09)
[2024-04-28] MEDS: ALPRAZOLAM 1 MG TABLET PO PRN (10:10)
[2024-04-28] MEDS: VENLAFAXINE HCL XR 75 MG CAP PO SCH (12:10)
--- NOTE | 2024-04-28 16:35 | EKG ---
Test Date: 2024-04-27 Test Time: 14:55:05 [place]: LILLIAN MEASUREMENT RESULTS: Intervals: Rate: 97 OH: 150 QRSD: 104 QT: 384 QTc: 487 [place]: P: 72 OH: 150 QRS: 77 T: -62 INTERPRETIVE STATEMENTS: Normal sinus rhythm ST & T wave abnormality, consider inferolateral ischemia Prolonged QT Abnormal ECG Compared to ECG 03/31/2024 10:51:36 ST (T wave) deviation now present Prolonged QT interval now present T-wave abnormality no longer present Possible ischemia still present Electronically Signed On 04-28-24 16:32:16 CDT by Khang Caldwell
[2024-04-28] MEDS: METHYLPREDNISOLONE 40 MG INJ IV ONE (19:50)
[2024-04-28 23:19] VITALS: BMI 24.6
[2024-04-29] MEDS: METHYLPREDNISOLONE 40 MG INJ IV SCH
[2024-04-29] MEDS: HYDRALAZINE HCL 20 MG/ML VIAL IV PRN (04:34)
[2024-04-29] MEDS: predniSONE 10 MG TAB PO SCH (12:06)
--- NOTE | 2024-04-29 12:40 | RAD REPORT ---
EXAMINATION: CT CHEST WITHOUT CONTRAST CLINICAL INDICATION: Female, 69 years old. FOLLOW UP TECHNIQUE: Routine CT scan of the chest without intravenous contrast. One or more of the following do se reduction techniques were used: Automated exposure control, adjustment of the mA and/or kV according to patient size, and/or iterative reconstruction. Unless otherwise specified, incidental fi ndings do not require dedicated imaging follow-up. [id number]. COMPARISON: 03/28/2024, 07/31/2017 FINDINGS: LOWER NECK: Visualized thyroid gland and soft tissues are normal. LUNGS AND AIRWAYS: A few small areas of "tree-in-bud" micronodularity scattered throughout the right and left lung. Some mild chronic appearing scarring is present in the right middle lobe. The masslike area in the medial left lower lobe identified on the prior CT has nearly completely resolved consistent with the sequela of infectious or inflammatory process. PLEURA: No pleural effusion. No pneumothorax. Hemidiaphragms are normally positioned. MEDIASTINUM AND LYMPH NODES: No mediastinal mass or fluid collection. Normal size mediastinal, hilar, and axillary lymph nodes. THORACIC AORTA: Normal caliber and configuration. PULMONARY ARTERIES: Normal caliber. HEART: Normal heart size. No coronary calcifications.No pericardial effusion. Aortic valve calcificat ions. OSSEOUS STRUCTURES AND CHEST WALL: Subacute appearing compression fracture with less than 20% loss of height at T3. Mild T2 compression deformity. No acute fractures. UPPER ABDOMEN: Surgical changes at the gastroesophageal junction. Circumferential thickening distal e sophagus may reflect mild esophagitis. Endoscopy could better evaluate. Cholecystectomy. 7 mm low-density lesion in the spleen is unchanged and almost certainly benign. IMPRESSION: The previously noted suspicious mass in the superior segment of the left lower lobe identified on the CT from 03/28/2024 has nearly completely resolved consistent with sequela of infection or inflammation. Scattered areas of mild micronodularity which are grossly similar to 03/28/2024. The micr onodularity is almost certainly benign and could reflect various infectious or inflammatory etiologies including atypical sources (viral) as well as chronic/indolent infectious causes.
[2024-04-29] MEDS: ALBUTEROL INHALER 200 PUFF/6.7 GM IH PRN (13:51)
[2024-04-30 06:53] LABS: Specific Gravity 1.015 (1.005-1.030); Urine Bilirubin NEGATIVE (Negative); Urine Blood Negative (Negative); Urine Clarity Clear (Clear); Urine Color Colorless (Yellow); Urine Glucose NEGATIVE (Negative); Urine Ketones NEGATIVE (Negative); Urine Microscopic Reflex YN NO UMIC; Urine Nitrite NEGATIVE (Negative); Urine Protein NEGATIVE (Negative); Urine Urobilinogen Normal (Normal)
[2024-04-30] MEDS: IPRATROPIUM BROM 0.5MG/2.5ML NEB PRN (09:57)
[2024-04-30] MEDS: ALBUTEROL 2.5 MG/3 ML NEB SOL NEB PRN (09:57)
[2024-04-30] MEDS ORDERED: predniSONE 10 MG TAB PO SCH (11:00)
[2024-04-30] MEDS: BENZONATATE 100 MG CAP PO PRN (13:42)
[2024-04-30] MEDS ORDERED: ALBUTEROL INHALER 200 PUFF/6.7 GM IH PRN (17:11)
--- NOTE | 2024-04-30 18:13 | P.PN ---
Date of Service: 04/28/24 Subjective Patient respiratory status is stable. Patient clinically doing much better. Echocardiogram to evaluate syncope. CT scan shows improvement of pneumonia Physical Examination - Vital Signs Reviewed - Physical Exam General: Alert, In no apparent distress Respiratory: Clear to auscultation bilaterally, Normal air movement Cardiovascular: Regular rate/rhythm, Normal S1 S2 Gastrointestinal: Soft and benign, W/out hepatosplenomegaly Musculoskeletal: No clubbing, No swelling Integumentary: No rashes, No tenderness/swelling Neurological: No focal deficits Assessment and Plan -Assessment/Plan 1. Unstable angina; unstable. Cardiology consulted. Monitor on telemetry. 2. Syncope; echocardiogram and carotid Doppler pending 3. Hypertension; continue with antihypertensive 4. BEAU; renal function better 5. Anxiety disorder; continue with anxiolytics 6. Depression; continue with antidepressant 7. COPD with pneumonia; CT scan with resolution of pneumonia. Continue with neb treatments as needed GI/DVT prophylaxis Advanced directive full code Discharge Plan: Home Plan to discharge in: 48 Hours - Advance Directives Does patient have a Living Will: No Does patient have a Durable POA for Healthcare: No
--- NOTE | 2024-04-30 18:19 | P.PN ---
Date of Service: 04/30/24 Subjective Patient denies any new complaints. Clinical symptoms are improving. Inpatient rehab or [facility] facility placement. Physical Examination - Vital Signs Reviewed - Physical Exam General: Alert, In no apparent distress Respiratory: end expiratory wheezing Cardiovascular: Regular rate/rhythm, Normal S1 S2 Gastrointestinal: Soft and benign, W/out hepatosplenomegaly Musculoskeletal: No clubbing, No swelling Integumentary: No rashes, No tenderness/swelling Neurological: No focal deficits Assessment and Plan -Assessment/Plan 1. CAD,; stable 2. Syncope; echocardiogram and carotid Doppler pending; continue monitoring on telemetry.; 3. Hypertension; continue with antihypertensive 4. BEAU; renal function better 5. Anxiety disorder; continue with anxiolytics 6. Depression; continue with antidepressant 7. COPD with pneumonia; CT scan with resolution of pneumonia. Continue with neb treatments as needed GI/DVT prophylaxis Advanced directive full code Discharge Plan: Home Plan to discharge in: 48 Hours - Advance Directives Does patient have a Living Will: No Does patient have a Durable POA for Healthcare: No
--- NOTE | 2024-04-30 18:19 | P.PN ---
Date of Service: 04/29/24 Subjective This patient continues to do well. However, she still is very weak and she keeps having episodes where her legs are giving out on her. She says she had syncope and collapse. Cardiology consulted and will get their recommendation. Echocardiogram and carotid Doppler to be reviewed as well. Monitor on telemetry. Patient may need placement as she lives at home alone Physical Examination - Vital Signs Reviewed - Physical Exam General: Alert, In no apparent distress Respiratory: end expiratory wheezing Cardiovascular: Regular rate/rhythm, Normal S1 S2 Gastrointestinal: Soft and benign, W/out hepatosplenomegaly Musculoskeletal: No clubbing, No swelling Integumentary: No rashes, No tenderness/swelling Neurological: No focal deficits Assessment and Plan -Assessment/Plan 1. Unstable angina; unstable. Cardiology consulted. Monitor on telemetry. Troponins negative. Most likely thing acute at this time with outpatient follow-up. 2. Syncope; echocardiogram and carotid Doppler pending; continue monitoring on telemetry.; 3. Hypertension; continue with antihypertensive 4. BEAU; renal function better 5. Anxiety disorder; continue with anxiolytics 6. Depression; continue with antidepressant 7. COPD with pneumonia; CT scan with resolution of pneumonia. Continue with neb treatments as needed GI/DVT prophylaxis Advanced directive full code Discharge Plan: Home Plan to discharge in: 48 Hours - Advance Directives Does patient have a Living Will: No Does patient have a Durable POA for Healthcare: No
[2024-05-01 07:43] LABS: Absolute Basophils 0.1 K/uL (0-0.5); Absolute Eosinophils 0.1 K/uL (0-0.5); Absolute Lymphocytes (CBC) 3.2 K/uL (0.7-4.9); Absolute Monocytes 0.7 K/uL (0.1-1.3); Absolute Neutrophil 6.1 K/uL (1.8-8.0); Basophils % 0.6 % (0-1.3); Eosinophils % 1.4 % (0-4.4); Hematocrit 38.7 % (36.0-45.0); Hemoglobin 12.5 g/dL (12.0-15.0); MCH 30.9 pg (27.0-35.0); MCHC 32.2 g/dL (32.0-36.0); MCV 95.9 fL (80-100); MPV 7.9 fL (7.6-11.3); Monocytes % 7.3 % (3.3-12.3); Neutrophils % 59.7 % (41.7-73.7); Platelets 301 thou/uL (152-406); RBC Red Blood Cell Count 4.04 M/uL (3.86-4.86); Red Cell Distribution Width 15.7 % (12.1-15.2)
[2024-05-01 08:25] LABS: ALT/SGPT 17 U/L (13-56); Albumin 2.9 g/dL (3.4-5.0); Albumin/Globulin Ratio 0.9 (1.1-1.8); Alkaline Phosphatase 122 U/L (45-117); Anion Gap 7.1 mEq/L (5.0-15.0); BUN Blood Urea Nitrogen 44 mg/dL (7-18); Bicarbonate 28 mEq/L (21-32); Bilirubin Total 0.4 mg/dL (0.2-1.0); Globulin 3.2 g/dL (2.3-3.5); Glomerular Filtration Rate 50 ml/min (=/>90); Glucose Level 96 mg/dL (74-106); Magnesium 2.4 mg/dL (1.6-2.4); NT PRO-BNP 866 pg/mL (<125); Potassium 4.1 mEq/L (3.5-5.1); Protein, Total 6.1 g/dL (6.4-8.2); Sodium Level 143 mEq/L (136-145)
[2024-05-01 08:27] LABS: AST/SGOT < 10 U/L (15-37)
--- NOTE | 2024-05-01 10:35 | P.CNS ---
Date of Consult: 05/01/24 Chief Complaint: Generlized weakness History of Present Illness: Patient with no significant cardaic PMH presented with generalized weakness, she mention that she has been getting chest pain on exertion, she has not been active due to that pain, also she mention she will feel palpitations, chest pain is across the chest, no radiation, also report NUGENT. Allergies aspirin Allergy (Intermediate, Verified 11/07/12 16:55) Anaphylaxis bacitracin [From Neosporin ([id number]-vco-[id number])] Allergy (Intermediate, Verified 11/07/12 16:55) aquino skin bacitracin zinc [From Neosporin (ihy-jog-[id number])] Allergy (Intermediate, Verified 11/07/12 16:55) aquino skin neomycin sulfate [From Neosporin ([id number]-zoa-[id number])] Allergy (Intermediate, Verified 11/07/12 16:55) aquino skin polymyxin B [From Neosporin ([id number]-hfs-xvxyq)] Allergy (Intermediate, Verified 11/07/12 16:55) aquino skin NSAIDS Allergy (Severe, Uncoded 03/29/24 04:24) Anaphylaxis Neosporin (rqb-kfs-ehixi) Allergy (Uncoded 06/03/18 18:20) Itching Home medications list reviewed: Yes Home Medications: Fluticasone/Umeclidin/Vilanter [Trelegy Ellipta 100-62.5-25] 1 puff PO BEDTIME PRN 07/17/22 predniSONE [Deltasone*] 10 mg PO DAILY 90 Days #90 tab 09/18/22 Benzonatate [Tessalon Perle*] 100 mg PO TID PRN #60 cap 01/07/24 Albuterol Inhaler [Ventolin Inhaler*] 2 puff IH Q6H PRN #1 inh 01/08/24 Venlafaxine HCl [Effexor XR] 150 mg PO DAILY #30 cap 01/08/24 Alprazolam [Xanax] 1 mg PO BID PRN #60 tab 03/15/24 Ipratropium Neb [Atrovent*] 0.5 mg NEB [id number] PRN 03/29/24 Venlafaxine HCl *Xr* [Effexor XR] 75 mg PO DAILY 03/29/24 Amox/Clavulanate [Augmentin 875-125 Tab*] 875 mg PO BID 12 Days #24 tab 04/05/24 Doxycycline Hyclate 100 mg PO BID 12 Days #24 tab 04/05/24 - Past Medical/Surgical History Diabetic: No -: Asthma -: Depression -: Osteoporosis -: GERD with hiatal hernia -: Obesity -: Hypertension -: ADHD -: -: Tubal ligation -: cholecystectomy -: cataract surgery -: rt shoulder sx x2 -: sx on left knee Psychosocial/ Personal History: Patient is . She has 1 child. She is retired. - Family History Mother Medical History: Heart disease, Hypertension, Diabetes Father Medical History: Heart disease, Hypertension, Lung disease, Cancer, Other (see notes) Notes: asbestosis - Social History Smoking Status: Unknown if ever smoked Alcohol use: No CD- Drugs: No Caffeine use: Yes Review of Systems 10-point ROS is otherwise unremarkable Physical Examination Temp Pulse Resp BP Pulse Ox 97.8 F 93 H 20 160/69 H 97 05/01/24 07:54 05/01/24 07:54 05/01/24 07:54 05/01/24 07:54 05/01/24 07:54 General: Alert, In no apparent distress HEENT: Atraumatic, PERRLA, Mucous membr. moist/pink, EOMI, Sclerae nonicteric Neck: Supple, 2+ carotid pulse no bruit, No LAD, Without JVD or thyroid abnormality Respiratory: Clear to auscultation bilaterally, Normal air movement Cardiovascular: Regular rate/rhythm, Normal S1 S2 Gastrointestinal: Normal bowel sounds, No tenderness Musculoskeletal: No tenderness Integumentary: No rashes Neurological: Normal gait, Normal speech, Normal tone, Normal affect Lymphatics: No axilla or inguinal lymphadenopathy - Problems (1) Chest pain Current Visit: Yes Status: Acute Plan: concern for angina, NPO after midnight for nuclear stress test in am (Lexiscan) ASA 81 mg daily Lipitor 40 mg daily (2) Tachycardia Current Visit: Yes Status: Acute Plan: start patient on Lopressor 25 mg po BID
--- NOTE | 2024-05-01 17:15 | P.PN ---
Subjective Date of Service: 05/01/24 Chief Complaint: Generlized weakness Subjective: No new changes (understands plan of care, really hoping to go to [facility] or SNF. Pt states she is really nervous about going home in her current condition) <Stella Matadoug Blackwell - Last Filed: 05/01/24 17:16> Date of Service: 05/01/24 <Vale Cervantes - Last Filed: 05/03/24 04:20> Review of Systems 10-point ROS is otherwise unremarkable General: Weakness, Malaise, Other (insomnia) Eyes: Unremarkable ENT: Unremarkable Respiratory: Unremarkable Cardiovascular: Paroxysmal Noc. Dyspnea, Light Headedness Gastrointestinal: Unremarkable Genitourinary: Unremarkable Musculoskeletal: Unremarkable Integumentary: Unremarkable Neurological: Weakness Lymphatics: Unremarkable <EsperanzaLaura Blackwell - Last Filed: 05/01/24 17:16> Physical Examination - Vital Signs Temperature: 98.3 F Blood Pressure: 132/60 Pulse: 108 Respirations: 20 Pulse Ox (%): 96 - Physical Exam General: Alert, In no apparent distress, Oriented x3 HEENT: Atraumatic, Normocephalic Neck: Supple Respiratory: Normal air movement Cardiovascular: Regular rate/rhythm, Normal S1 S2 Capillary refill: <2 Seconds Gastrointestinal: Normal bowel sounds Musculoskeletal: No swelling Integumentary: No rashes Neurological: Normal speech, Normal tone, Normal affect Lymphatics: No axilla or inguinal lymphadenopathy External genitalia: Deferred Rectal: Deferred <Stella Matay Rishi - Last Filed: 05/01/24 17:16> Assessment And Plan - Plan Assessment and Plan -Assessment/Plan 1. CAD,; stable 2. Syncope; echocardiogram and carotid Doppler pending; continue monitoring on telemetry.; ordered 05/01/24 3. Hypertension; continue with antihypertensive 4. BEAU; renal function better 5. Anxiety disorder; continue with anxiolytics 6. Depression; continue with antidepressant 7. COPD with pneumonia; CT scan with resolution of pneumonia. Continue with neb treatments as needed 8. angina, Dr. Santana following, allergic to ASA, begin lopressor 25mg po BID, Lipitor 40mg po q hs, NPO post MN for stress test in am GI/DVT prophylaxis Advanced directive full code Discharge Plan: Home Plan to discharge in: 48 Hours - Advance Directives Does patient have a Living Will: No Does patient have a Durable POA for Healthcare: No - Code Status/Comfort Care Code Status Assessed: Yes (Full ) Time Spent Managing PTS Care (In Minutes): 27 <Laura Mata - Last Filed: 05/01/24 17:16> Date of Service: 05/01/24 Chart has been reviewed. Events of the last 24 hours have been noted. Case discussed with BRENNAN. I performed a substantial part of the MDM during this patient's care today. I personally made or approved the documented management plan and acknowledge its risk of complications. I agree with the findings and documentation provided in the BRENNAN's notes <Vale Cervantes - Last Filed: 05/03/24 04:20>
[2024-05-01] MEDS: METOPROLOL TAR 25 MG TAB PO SCH (17:52)
[2024-05-01] MEDS: ATORVASTATIN 40 MG TAB PO SCH (20:53)
[2024-05-02 06:34] LABS: Anion Gap 7.2 mEq/L (5.0-15.0); Phosphorus 3.5 mg/dL (2.5-4.9); Potassium 4.2 mEq/L (3.5-5.1)
--- NOTE | 2024-05-02 07:28 | RAD REPORT ---
EXAMINATION: US CAROTID DUPLEX CLINICAL INDICATION: Syncope TECHNIQUE: Real-time grayscale, color flow and spectral Doppler sonographic images were obtained of t extracranial carotid system using a linear transducer. COMPARISON: March 2024. FINDINGS: The velocity of the right internal carotid artery 110 cm/s The right ICA/CCA ratio normal The velocity left internal carotid artery 98 cm/s The left ICA/CCA ratio normal Mild plaque is present within the carotid arteries Vertebral arteries demonstrate anterograde flow. No significant abnormality external carotid arteries Methods for NASCET criteria: mild stenosis, 0% to 49%; moderate, 50% to 69%; severe stenosis, 70% to 99% IMPRESSION: No significant vascular abnormality displayed
--- NOTE | 2024-05-02 08:30 | P.PN ---
Date of Service: 05/02/24 Subjective Stress test is negative. Waiting for placement at [facility]. Continue with physical therapy at the [facility] Physical Examination - Vital Signs Reviewed - Physical Exam General: Alert, In no apparent distress Respiratory: end expiratory wheezing Cardiovascular: Regular rate/rhythm, Normal S1 S2 Gastrointestinal: Soft and benign, W/out hepatosplenomegaly Musculoskeletal: No clubbing, No swelling Integumentary: No rashes, No tenderness/swelling Neurological: No focal deficits Assessment and Plan -Assessment/Plan 1. CAD,; stable; Echocardiogram reviewed 2. Syncope; echocardiogram and carotid Doppler reviewed; continue monitoring on telemetry; reviewed 3. Hypertension; continue with antihypertensive 4. BEAU; renal function better 5. Anxiety disorder; continue with anxiolytics 6. Depression; continue with antidepressant 7. COPD with pneumonia; CT scan with resolution of pneumonia. Continue with neb treatments as needed GI/DVT prophylaxis Advanced directive full code Discharge Plan: Home Plan to discharge in: 48 Hours - Advance Directives Does patient have a Living Will: No Does patient have a Durable POA for Healthcare: No
[2024-05-02] MEDS ORDERED: ASPIRIN EC 81 MG TAB PO SCH (09:00)
[2024-05-02] MEDS ORDERED: REGADENOSON 0.4 MG/5 ML SYR IV ONE (10:02)
[2024-05-02] MEDS ORDERED: ONDANSETRON 4 MG/2 ML VIAL ONE (10:25)
[2024-05-02] MEDS: ONDANSETRON 4 MG/2 ML VIAL IV PRN (10:26)
--- NOTE | 2024-05-02 10:56 | RAD REPORT ---
EXAM: Nuclear medicine cardiac perfusion examination with ejection fraction HISTORY: Chest pain TECHNIQUE: Rest images: 10.2 mCi technetium 99m sestamibi Stress images: 28.9 mCi of technetium 99m sestamibi; SPECT cardiac images obtained COMPARISON: None FINDINGS: There is uniformity of radiotracer activity involving the entire left ventricular myocardium on rest and stress sequences. The left ventricular ejection fraction equals 64% IMPRESSION: No evidence of stress-induced ischemia
--- NOTE | 2024-05-02 11:53 | P.PN ---
Subjective Date of Service: 05/02/24 Chief Complaint: Generlized weakness Subjective: No new changes, No C/O voiced, Tolerating diet, Ambulating, Improving Review of Systems 10-point ROS is otherwise unremarkable Physical Examination - Vital Signs Temperature: 97.9 F Blood Pressure: 136/62 Pulse: 77 Respirations: 16 Pulse Ox (%): 97 - Physical Exam General: Alert, In no apparent distress HEENT: Atraumatic, PERRLA, EOMI Neck: Supple, JVD not distended Respiratory: Clear to auscultation bilaterally, Normal air movement Cardiovascular: Regular rate/rhythm, Normal S1 S2 Gastrointestinal: Normal bowel sounds, No tenderness Musculoskeletal: No tenderness Integumentary: No rashes Neurological: Normal speech, Normal tone, Normal affect Lymphatics: No axilla or inguinal lymphadenopathy - Studies Medications List Reviewed: Yes Assessment And Plan - Current Problems (Diagnosis) (1) Chest pain Current Visit: Yes Status: Acute Plan: Patient had a nuclear stress test that is negative, echo is normal, no further cardiac work up needed ASA 81 mg daily Lipitor 40 mg daily (2) Tachycardia Current Visit: Yes Status: Acute Plan: continue Lopressor 25 mg po BID outpatient follow up for event monitor
--- NOTE | 2024-05-02 12:39 | TREADPHA ---
DX: CHEST PAIN Date of Study: 05/02/2024 Ht: 5' 0 " Wt: 126 lb 0 oz Consulting Physician: LINO MEDICATIONS: TYLENOL, PROVENTIL, XANAX, LIPITOR, LOVENOX, APRESOLINE, ATROVENT, LOPRESSOR, ZOFRAN, DELTASONE, EFFEXOR XR HISTORY: 69 YEAR OLD FEMALE WITH COMPLIANT OF CHEST PAIN. HISTORY OF ASTHMA, CHRONIC OBSTRUCTIVE PULMONARY DISEASE, HYPERTENSION. PATIENT STATES ALLERGY TO ASPIRIN, NEOSPORIN PHYSICIAL EXAMINATION: RESTING B.P.: 160/79 RESTING H.R.: 77 RESTING EKG: SINUS RHYTHM WITH FREQUENT PREMATURE VENTRICULAR COMPLEXES PROTOCOL: PHARMACOLOGIC EXERCISE TIME: 3:30 B.P. AT PEAK STRESS: 140/64 IMPRESSION: LEXISCAN INJECTED. CARDIOLITE INJECTED - SEE NUCLEAR MEDICINE REPORT. NO SUPRAVENTRICULAR, VENTRICULAR TACHYCARDIA, PREMATURE ATRIAL COMPLEXES NOTED. SINUS RHYTHM WITH FREQUENT PREMATURE VENTRICULAR COMPLEXES NOTED THROUGHOUT PROCEDURE. PATIENT DENIES CHEST PAIN. PATIENT STATES NAUSEA AND HEADACHE IN RECOVERY.
--- NOTE | 2024-05-03 16:13 | P.PN ---
Subjective Date of Service: 05/03/24 Chief Complaint: Generlized weakness Patient has no new complaint. Patient denies any chest pain or dizziness. Physical Examination - Vital Signs Temperature: 98.6 F Blood Pressure: 140/65 Pulse: 71 Respirations: 18 Pulse Ox (%): 93 - Studies Medications List Reviewed: Yes Assessment And Plan - Plan Physical examination General: Alert and oriented x3, NAD, HEENT: Anicteric sclera Neck: Supple, no elevated JVD Heart: Heart sounds 1 and 2 normal, regular rhythm, normal rate, no pedal edema Lungs: Clear to auscultation bilaterally, adequate breath sounds bilaterally, no rhonchi or crackles. Abdomen: Soft, nondistended, nontender, normal bowel sounds. Extremities: No tenderness, no deformity Skin: Normal skin turgor, no rash, no nodules or ulcers. Neuro: No focal motor deficit. Normal speech. Psychiatry: Normal mood, no agitation. Assessment and plan Syncope CAD Echocardiogram and carotid Doppler reviewed and unremarkable. No arrhythmia on telemetry. Nuclear stress test showed no evidence of stress-induced ischemia. Hypertension continue home antihypertensives BEAU Renal function improved. Oral rehydration. Anxiety disorder Depression continue home medications. COPD Recent pneumonia CT scan with resolution of pneumonia. Continue neb treatments as needed DVT prophylaxis: Lovenox Advanced directive: full code
--- NOTE | 2024-05-04 08:39 | P.PN ---
Subjective Date of Service: 05/04/24 Chief Complaint: Generlized weakness Subjective: Improving (walked down the hallway with PT yesterday) Review of Systems 10-point ROS is otherwise unremarkable Neurological: Weakness Physical Examination - Vital Signs Temperature: 97.1 F Blood Pressure: 138/56 Pulse: 70 Respirations: 18 Pulse Ox (%): 93 - Physical Exam General: Alert, In no apparent distress, Oriented x3 HEENT: Atraumatic, Other (Flushed face) Neck: Supple Respiratory: Clear to auscultation bilaterally Cardiovascular: Regular rate/rhythm, Normal S1 S2 Capillary refill: <2 Seconds Gastrointestinal: Normal bowel sounds Musculoskeletal: No clubbing Integumentary: No rashes Neurological: Normal speech, Normal affect, Abnormal strength Lymphatics: No axilla or inguinal lymphadenopathy External genitalia: Deferred Rectal: Deferred - Studies Medications List Reviewed: Yes Assessment And Plan - Plan Assessment and Plan -Assessment/Plan 1. CAD,; stable 2. Syncope; echocardiogram and carotid Doppler pending; continue monitoring on telemetry.; ordered 05/01/24 3. Hypertension; continue with antihypertensive 4. BEAU; renal function better 5. Anxiety disorder; continue with anxiolytics 6. Depression; continue with antidepressant 7. COPD with pneumonia; CT scan with resolution of pneumonia. Continue with neb treatments as needed 8. angina, Dr. Santana following, allergic to ASA, begin lopressor 25mg po BID, Lipitor 40mg po q hs, NPO post MN for stress test in am 10/10 pt sleeping better with start of lopressor walked with PT yesterday awaiting [facility] GI/DVT prophylaxis Advanced directive full code Discharge Plan: Home Plan to discharge in: 48 Hours - Advance Directives Does patient have a Living Will: No Does patient have a Durable POA for Healthcare: No
[2024-05-04] MEDS ORDERED: IPRATROPIUM BROM 0.5MG/2.5ML NEB PRN (09:05)
[2024-05-04] MEDS ORDERED: ALBUTEROL 2.5 MG/3 ML NEB SOL NEB PRN (09:05)
[2024-05-04] MEDS: ALPRAZOLAM 1 MG TABLET PO SCH (09:26)
[2024-05-05] MEDS: predniSONE 20 MG TAB PO SCH ×2 (09:15→19:46)
[2024-05-05] MEDS: predniSONE 10 MG TAB PO SCH (09:48)
[2024-05-05] MEDS: IPRATROPIUM BROM 0.5MG/2.5ML NEB SCH (13:00)
[2024-05-05] MEDS: LEVALBUTEROL 1.25 MG/3 ML NEB NEB SCH (13:00)
--- NOTE | 2024-05-05 15:57 | P.PN ---
Date of Service: 05/05/24 Subjective Date of Service: 05/05/24 Chief Complaint: Generlized weakness Patient has no new complaint. Patient denies any chest pain or dizziness. Physical Examination - Vital Signs reviewed - Studies Medications List Reviewed: Yes Assessment And Plan - Plan Physical examination General: Alert and oriented x3, NAD, HEENT: Anicteric sclera Neck: Supple, no elevated JVD Heart: Heart sounds 1 and 2 normal, regular rhythm, normal rate, no pedal edema Lungs: Clear to auscultation bilaterally, adequate breath sounds bilaterally, no rhonchi or crackles, some exp wheezing Abdomen: Soft, nondistended, nontender, normal bowel sounds. Extremities: No tenderness, no deformity Skin: Normal skin turgor, no rash, no nodules or ulcers. Neuro: No focal motor deficit. Normal speech. Psychiatry: Normal mood, no agitation. Assessment and plan Syncope CAD Echocardiogram and carotid Doppler reviewed and unremarkable. No arrhythmia on telemetry. Nuclear stress test showed no evidence of stress-induced ischemia. Pt working with PT but states they don't push her hard enough for syncopal event Hypertension continue home antihypertensives BEAU Renal function improved. Oral rehydration. Anxiety disorder Depression continue home medications. COPD Recent pneumonia CT scan with resolution of pneumonia. Continue neb treatments as needed awaiting [place] [facility] auth DVT prophylaxis: Lovenox Advanced directive: full code
[2024-05-06] MEDS: predniSONE 10 MG TAB PO SCH (08:54)
--- NOTE | 2024-05-06 15:59 | P.PN ---
Date of Service: 05/06/24 Subjective Date of Service: 05/06/24 Chief Complaint: Generlized weakness Patient has no new complaint. Patient denies any chest pain or dizziness. Physical Examination - Vital Signs reviewed - Studies Medications List Reviewed: Yes Assessment And Plan - Plan Physical examination General: Alert and oriented x3, NAD, HEENT: Anicteric sclera Neck: Supple, no elevated JVD Heart: Heart sounds 1 and 2 normal, regular rhythm, normal rate, no pedal edema Lungs: Clear to auscultation bilaterally, adequate breath sounds bilaterally, no rhonchi or crackles, some exp wheezing Abdomen: Soft, nondistended, nontender, normal bowel sounds. Extremities: No tenderness, no deformity Skin: Normal skin turgor, no rash, no nodules or ulcers. Neuro: No focal motor deficit. Normal speech. Psychiatry: Normal mood, no agitation. Assessment and plan Syncope CAD Echocardiogram and carotid Doppler reviewed and unremarkable. No arrhythmia on telemetry. Nuclear stress test showed no evidence of stress-induced ischemia. Pt working with PT but states they don't push her hard enough for syncopal event Hypertension continue home antihypertensives BEAU Renal function improved. Oral rehydration. Anxiety disorder Depression continue home medications. COPD Recent pneumonia CT scan with resolution of pneumonia. Continue neb treatments as needed continue awaiting [place] [facility] auth DVT prophylaxis: Lovenox Advanced directive: full code
[2024-05-06] MEDS: MELATONIN 3 MG TABLET PO ONE (21:03)
--- NOTE | 2024-05-07 08:27 | P.PN ---
Date of Service: 05/07/24 Subjective Date of Service: 05/07/24 Chief Complaint: Generlized weakness Patient has no new complaint. Patient denies any chest pain or dizziness. Physical Examination - Vital Signs reviewed - Studies Medications List Reviewed: Yes Assessment And Plan - Plan Physical examination General: Alert and oriented x3, NAD, HEENT: Anicteric sclera Neck: Supple, no elevated JVD Heart: Heart sounds 1 and 2 normal, regular rhythm, normal rate, no pedal edema Lungs: Clear to auscultation bilaterally, no rhonchi or crackles, some exp wheezing on exertion Abdomen: Soft, nondistended, nontender, normal bowel sounds. Extremities: No tenderness, no deformity Skin: Normal skin turgor, no rash, no nodules or ulcers. Neuro: No focal motor deficit. Normal speech. Psychiatry: Normal mood, no agitation. Assessment and plan Syncope CAD Echocardiogram and carotid Doppler reviewed and unremarkable. No arrhythmia on telemetry. Started on Lopressor 25mg po BID Nuclear stress test showed no evidence of stress-induced ischemia. Pt working with PT but states they don't push her hard enough for syncopal event Hypertension continue home antihypertensives continues on ASA, Lipitor, and Metoprolol BEAU Renal function improved. Oral rehydration. 05/07/24 creatinine 1.16, GFR 51 Anxiety disorder Depression continue home medications. COPD Recent pneumonia CT scan with resolution of pneumonia. Continue neb treatments as needed Insomnia 05/07/24 Pt is sleeping better with initiation of Metoprolol 05/07/24 continue awaiting [place] [facility] auth DVT prophylaxis: Lovenox Advanced directive: full code
[2024-05-07] MEDS: ENOXAPARIN 40 MG/0.4 ML SQ SCH (08:31)
[2024-05-08 05:51] LABS: Absolute Lymphocytes (CBC) 1.7 K/uL (0.7-4.9); Absolute Monocytes 0.7 K/uL (0.1-1.3); Absolute Neutrophil 11.7 K/uL (1.8-8.0); Basophils % 0.3 % (0-1.3); Eosinophils % 0.1 % (0-4.4); Hemoglobin 11.7 g/dL (12.0-15.0); Lymphocytes % 12.2 % (15.3-44.8); MCHC 32.5 g/dL (32.0-36.0); MCV 95.2 fL (80-100); MPV 8.5 fL (7.6-11.3); Monocytes % 4.8 % (3.3-12.3); Neutrophils % 82.6 % (41.7-73.7); Platelets 264 thou/uL (152-406); RBC Red Blood Cell Count 3.79 M/uL (3.86-4.86); Red Cell Distribution Width 15.1 % (12.1-15.2)
[2024-05-08 06:10] LABS: Anion Gap 6.3 mEq/L (5.0-15.0); Potassium 4.3 mEq/L (3.5-5.1)
[2024-05-08 10:18] VITALS: O2SAT 93
[2024-05-08 10:44] VITALS: BP 140/68; TEMP 97.9
== END 2024-05-08 11:29 | DRG 302 ==
LOC: ER 14:10 → ERHOLD 18:23 → 4TH 04-28 11:10 → OBSVTOIN 04-29 17:11
PROVIDERS: ADMIT Family Medicine; ATTEND Hospitalist
DX: I25.110 Atherosclerotic heart disease of native coronary artery with unstable angina pectoris (principal); J18.9 Pneumonia, unspecified organism; N17.9 Acute kidney failure, unspecified; J44.0 Chronic obstructive pulmonary disease with (acute) lower respiratory infection; R55 Syncope and collapse; K21.9 Gastro-esophageal reflux disease without esophagitis; M81.0 Age-related osteoporosis without current pathological fracture; I12.9 Hypertensive chronic kidney disease with stage 1 through stage 4 chronic kidney disease, or unspecified chronic kidney disease; N18.2 Chronic kidney disease, stage 2 (mild); F41.9 Anxiety disorder, unspecified; E66.9 Obesity, unspecified; G47.00 Insomnia, unspecified; F32.A Depression, unspecified; F90.9 Attention-deficit hyperactivity disorder, unspecified type; R00.0 Tachycardia, unspecified; Z88.6 Allergy status to analgesic agent; Z88.8 Allergy status to other drugs, medicaments and biological substances; Z98.51 Tubal ligation status; Z68.24 Body mass index [BMI] 24.0-24.9, adult; Z79.52 Long term (current) use of systemic steroids; Z90.49 Acquired absence of other specified parts of digestive tract; Z79.899 Other long term (current) drug therapy
CPT/HCPCS: 36415; 71045; 71250; 78452; 80048; 80053; 81001; 81003; 82533; 82607; 83540; 83735; 83880; 84100; 84439; 84443; 84484; 85025; 93005; 93017; 93880; 94640; 94760; 94762; 97110; 97116; 97161; 99284; A9500; G0378; J0360; J1650; J2405; J2785; J2919; J3535; J7512; J7613; J7614; J7644

== ENCOUNTER 2024-06-25 13:06 | Inpatient (IN) | payer OTHER ==
[2024-06-25] MEDS ORDERED: NA CHLORIDE 0.9% 500 ML ONE (13:30)
[2024-06-25] MEDS ORDERED: ACETAMINOPHEN 325 MG TABLET ONE (13:30)
[2024-06-25] MEDS ORDERED: NA CHLORIDE 0.9% 1,000 ML ONE (13:30)
[2024-06-25] MEDS ORDERED: IPRATROPIUM BROM 0.5MG/2.5ML ONE (14:06)
[2024-06-25] MEDS ORDERED: METHYLPREDNISOLONE 125 MG INJ ONE (14:06)
[2024-06-25] MEDS ORDERED: LEVALBUTEROL 1.25 MG/3 ML NEB ONE (14:07)
[2024-06-25] MEDS ORDERED: FAMOTIDINE 20 MG/2 ML VIAL IV ONE (14:07)
[2024-06-25] MEDS ORDERED: LORazepam 2 MG/ML VIAL ONE (14:07)
[2024-06-25 14:12] LABS: Absolute Basophils 0.1 K/uL (0-0.5); Absolute Eosinophils 0.4 K/uL (0-0.5); Absolute Lymphocytes (CBC) 3.6 K/uL (0.7-4.9); Absolute Monocytes 0.7 K/uL (0.1-1.3); Absolute Neutrophil 6.8 K/uL (1.8-8.0); Basophils % 0.5 % (0-1.3); Eosinophils % 3.4 % (0-4.4); Hematocrit 40.9 % (36.0-45.0); Hemoglobin 13.2 g/dL (12.0-15.0); Lymphocytes % 31.2 % (15.3-44.8); MCH 29.7 pg (27.0-35.0); MCHC 32.4 g/dL (32.0-36.0); MCV 91.9 fL (80-100); Monocytes % 5.9 % (3.3-12.3); Nucleated Red Blood Cells % 0.1 % (0-0); Platelets 408 thou/uL (152-406); RBC Red Blood Cell Count 4.46 M/uL (3.86-4.86); Red Cell Distribution Width 15.3 % (12.1-15.2)
[2024-06-25 14:20] LABS: PT Prothrombin Time 11.8 SECONDS (9.4-12.5); Protime INR 1.06
[2024-06-25 14:35] LABS: ALT/SGPT 20 U/L (13-56); Albumin 2.9 g/dL (3.4-5.0); Albumin/Globulin Ratio 0.7 (1.1-1.8); Alkaline Phosphatase 108 U/L (45-117); Anion Gap 10.6 mEq/L (5.0-15.0); BUN Blood Urea Nitrogen 10 mg/dL (7-18); Bicarbonate 24 mEq/L (21-32); Bilirubin Total 0.5 mg/dL (0.2-1.0); Globulin 4.4 g/dL (2.3-3.5); Glomerular Filtration Rate 61 ml/min (=/>90); Glucose Level 113 mg/dL (74-106); Lipase 37 U/L (13-75); NT PRO-BNP 2441 pg/mL (<125); Protein, Total 7.3 g/dL (6.4-8.2); Sodium Level 141 mEq/L (136-145); Troponin High Sensitivity 33.3 pg/mL (<58.9)
[2024-06-25 14:45] LABS: AST/SGOT 27 U/L (15-37); Bilirubin Direct < 0.2 mg/dL (0-0.2); Bilirubin Indirect, Calculated 0.3 mg/dL (0.2-0.8); Potassium 3.6 mEq/L (3.5-5.1)
[2024-06-25] MEDS: VENLAFAXINE HCL XR 75 MG CAP PO ONE (15:00)
--- NOTE | 2024-06-25 15:17 | EDPHYS ---
Physician Documentation [facility] Name: Irma Cain Age: 69 yrs Sex: Female : 1955 Arrival Date: 06/25/2024 Time: 13:06 Bed 17 Private MD: ED Physician Moi Berrios HPI: 06/25 14:03 This 69 yrs old Female presents to ER via EMS with complaints of Shortness Of stefanie Breath. 14:03 The patient has shortness of breath at rest, with light activity. Onset: The stefanie symptoms/episode began/occurred 3 day(s) ago. Duration: The symptoms are continuous, and are steadily getting worse. The patient's shortness of breath has no apparent modifying factors. Associated signs and symptoms: The patient has no apparent associated signs or symptoms. Severity of symptoms: At their worst the symptoms were moderate in the emergency department the symptoms are unchanged. The patient has experienced similar episodes in the past, multiple times. Historical: - Allergies: 13:23 Aspirin; db 13:23 Benadryl; db 13:23 Ibuprofen; db 13:23 Neosporin ([id number]); db 13:23 NSAIDS; db 13:23 Talwin; db - PMHx: 13:23 ADD/ADHD; Anxiety; Asthma; depressive disorder; Hypertensive disorder; UNMEDICATED; db Pneumonia; - PSHx: 13:23 Cholecystectomy; db - Immunization history:: Adult Immunizations unknown. - Infectious Disease History:: Denies. - Social history:: Smoking status: Patient denies any tobacco usage or history of. - Family history:: not pertinent. ROS: 14:03 Constitutional: Negative for fever, chills, and weight loss, Eyes: Negative for injury, stefanie pain, redness, and discharge, ENT: Negative for injury, pain, and discharge, Neck: Negative for injury, pain, and swelling, Cardiovascular: Negative for chest pain, palpitations, and edema, Abdomen/GI: Negative for abdominal pain, nausea, vomiting, diarrhea, and constipation, Back: Negative for injury and pain, : Negative for injury, bleeding, discharge, and swelling, MS/Extremity: Negative for injury and deformity, Skin: Negative for injury, rash, and discoloration, Neuro: Negative for headache, weakness, numbness, tingling, and seizure, Psych: Negative for depression, anxiety, suicide ideation, homicidal ideation, and hallucinations, Allergy/Immunology: Negative for hives, rash, and allergies, Endocrine: Negative for neck swelling, polydipsia, polyuria, polyphagia, and marked weight changes, Hematologic/Lymphatic: Negative for swollen nodes, abnormal bleeding, and unusual bruising, 14:03 Respiratory: Positive for cough, shortness of breath, at rest. Exam: 14:03 Constitutional: This is a well developed, well nourished patient who is awake, alert, stefanie and in no acute distress. Head/Face: Normocephalic, atraumatic. Eyes: Pupils equal round and reactive to light, extra-ocular motions intact. Lids and lashes normal. Conjunctiva and sclera are non-icteric and not injected. Cornea within normal limits. Periorbital areas with no swelling, redness, or edema. ENT: Nares patent. No nasal discharge, no septal abnormalities noted. Tympanic membranes are normal and external auditory canals are clear. Oropharynx with no redness, swelling, or masses, exudates, or evidence of obstruction, uvula midline. Mucous membranes moist. Neck: Trachea midline, no thyromegaly or masses palpated, and no cervical lymphadenopathy. Supple, full range of motion without nuchal rigidity, or vertebral point tenderness. No Meningismus. Chest/axilla: Normal chest wall appearance and motion. Nontender with no deformity. No lesions are appreciated. Abdomen/GI: Soft, non-tender, with normal bowel sounds. No distension or tympany. No guarding or rebound. No evidence of tenderness throughout. Back: No spinal tenderness. No costovertebral tenderness. Full range of motion. Female : Normal external genitalia. Skin: Warm, dry with normal turgor. Normal color with no rashes, no lesions, and no evidence of cellulitis. MS/ Extremity: Pulses equal, no cyanosis. Neurovascular intact. Full, normal range of motion., bilateral aka Neuro: Awake and alert, GCS 15, oriented to person, place, time, and situation. Cranial nerves II-XII grossly intact. Motor strength 5/5 in all extremities. Sensory grossly intact. Cerebellar exam normal. Normal gait. Psych: Awake, alert, with orientation to person, place and time. Behavior, mood, and affect are within normal limits. 14:03 Cardiovascular: Rate: tachycardic, actual rate is 110 bpm, Rhythm: regular, Pulses: Pulses are 4+ in bilateral radial, brachial, femoral, popliteal, posterior tibial and and dorsalis pedis arteries.. Heart sounds: normal, Edema: is not appreciated, JVD: is not appreciated, 14:03 ECG was reviewed by the Attending Physician. Vital Signs: 13:21 BP 168 / 88; Pulse 110; Resp 16; Temp 98.9; Pulse Ox 99% ; db 13:50 BP 111 / 56; Pulse 122; Resp 27; Pulse Ox 90% on R/A; db 14:00 BP 156 / 81; Pulse 116; Resp 30; Pulse Ox 95% on R/A; db 15:30 BP 132 / 81; Pulse 104; Resp 16; Pulse Ox 98% on R/A; db 16:00 BP 159 / 65; Pulse 103; Resp 18; Pulse Ox 97% 2 lpm ; db 17:00 BP 189 / 73; Pulse 116; Resp 16; Pulse Ox 96% on 2 lpm NC; db 17:30 BP 155 / 70; Pulse 109; Resp 16; Pulse Ox 95% on 2 lpm NC; db MDM: 13:15 Medical Screening Exam initiated stefanie 14:06 Differential diagnosis: Anemia Bronchitis CHF exacerbation, Chronic Obstructive stefanie Pulmonary Disease Myocardial Infarction pneumonia, pulmonary edema, reactive airway disease, Sepsis Unstable Angina. Antibiotic administration: Levaquin given. Immunization status: Pneumococcal vaccine: within last 5 years. Influenza vaccine: within last 5 years. Data reviewed: vital signs, nurses notes, lab test result(s), EKG, radiologic studies, plain films. Consideration of Admission/Observation Patient was admitted/placed on observation. Escalation of care including admission/observation considered. I considered the following discharge prescriptions or medication management in the emergency department Medications were administered in the Emergency Department. See MAR. Independent interpretation of the following test(s) in the Emergency Department EKG: See my EKG interpretation above. Test considered but Not performed: Ultrasound no 2 d echo. Historians other than the Patient: pt well informed. Care significantly affected by the following chronic conditions: Hypertension, Chronic Obstructive Pulmonary Disease, Obesity, anxiety, add/adhd. Counseling: I had a detailed discussion with the patient and/or guardian regarding the historical points, exam findings, and any diagnostic results supporting the discharge/admit diagnosis, lab results, radiology results, the need for further work-up and treatment in the hospital. 06/25 13:16 Order name: Basic Metabolic Panel; Complete Time: 15:12 [facility] 06/25 13:16 Order name: CBC with Diff; Complete Time: 15:12 [facility] 06/25 13:16 Order name: LFT's; Complete Time: 15:12 [facility] 06/25 13:16 Order name: Magnesium; Complete Time: 15:12 [facility] 06/25 13:16 Order name: NT PRO-BNP; Complete Time: 15:12 [facility] 06/25 13:16 Order name: PT-INR; Complete Time: 15:12 [facility] 06/25 13:16 Order name: Troponin HS; Complete Time: 15:12 [facility] 06/25 13:16 Order name: Lipase; Complete Time: 15:12 [facility] 06/25 13:16 Order name: Flu; Complete Time: 15:12 [facility] 06/25 13:16 Order name: SARS RAPID [facility] 06/25 13:16 Order name: Urinalysis w/ reflexes [facility] 06/25 13:16 Order name: Blood Culture Adult (2) [facility] 06/25 16:18 Order name: Urinalysis w/ reflexes EDMT 06/25 16:18 Order name: Basic Metabolic Panel EDMT 06/25 16:18 Order name: Basic Metabolic Panel EDMS 06/25 16:18 Order name: Basic Metabolic Panel EDMS 06/25 16:18 Order name: Basic Metabolic Panel EDMS 06/25 16:18 Order name: CBC with Automated Diff EDMS 06/25 16:18 Order name: CBC with Automated Diff EDMS 06/25 16:18 Order name: CBC with Automated Diff EDMS 06/25 16:18 Order name: CBC with Automated Diff EDMS 06/25 16:18 Order name: Magnesium EDMS 06/25 16:18 Order name: Magnesium EDMS 06/25 16:18 Order name: Magnesium EDMS 06/25 16:18 Order name: Magnesium EDMS 06/25 16:18 Order name: NT PRO-BNP EDMS 06/25 16:18 Order name: NT PRO-BNP EDMS 06/25 16:18 Order name: NT PRO-BNP EDMS 06/25 16:19 Order name: NT PRO-BNP EDMS 06/25 13:16 Order name: XRAY Chest (1 view) [facility] 06/25 16:18 Order name: CONS Physician Consult EDMT 06/25 13:16 Order name: Cardiac monitoring; Complete Time: 14:23 [facility] 06/25 13:16 Order name: EKG - Nurse/Tech; Complete Time: 14:23 [facility] 06/25 13:16 Order name: IV Saline Lock; Complete Time: 14:23 [facility] 06/25 13:16 Order name: Labs collected and sent; Complete Time: 14:23 [facility] 06/25 13:16 Order name: O2 Per Protocol; Complete Time: 14: [facility] 06/25 13:16 Order name: O2 Sat Monitoring; Complete Time: 14:23 [facility] EC:03 Rate is 117 beats/min. Rhythm is regular. QRS [place] is Normal. LA interval is normal. [facility] QRS interval is normal. QT interval is normal. No Q waves. T waves are Normal. No ST changes noted. Clinical impression: Sinus tachycardia and No evidence of ischemia. Interpreted by me. Reviewed by me. Administered Medications: 13:34 Drug: Acetaminophen PO 650 mg PO once Route: PO; db 17:00 Follow up: Response: No adverse reaction db 14:19 Drug: Effexor XR PO 75 mg PO once Route: PO; db 17:00 Follow up: Response: No adverse reaction db 14:19 Drug: Levalbuterol Inhalation 3.75 mg Inhalation once Route: Inhalation; db 14:19 Drug: Ipratropium Inhalation Aerosol 0.5 mg Inhalation once Route: Inhalation; db 14:50 Drug: NS 0.9% IV 500 ml 500 ml IV at 1 bolus once; to be given as a bolus over 30 db minutes Volume: 500 ml; Route: IV; Rate: 1 bolus; Site: right forearm; 16:00 Follow up: Response: No adverse reaction; IV Status: Completed infusion; IV Intake: db 500ml 14:50 Drug: MethylPrednisoLONE IVP 125 mg IVP once Route: IVP; Site: right forearm; db 19:00 Follow up: Response: No adverse reaction db 15:00 Drug: Ativan IVP 0.5 mg IVP once Route: IVP; Site: right forearm; db 19:00 Follow up: Response: No adverse reaction db 15:00 Drug: Famotidine IVP 20 mg IVP once; dilute with 10 mL 0.9% NaCl; give over 2 minutes db Route: IVP; Site: right forearm; 18:34 Follow up: Response: No adverse reaction db 15:10 Drug: NS 0.9% IV 1000 ml IV at 125 ml/hr continuous Route: IV; Rate: 125 ml/hr; Site: db right forearm; 19:03 Follow up: IV Status: Infusion continued upon admission db Disposition Summary: 06/25/24 15:17 Hospitalization Ordered Notes: Hospitalization Status: Observation stefanie Provider: Vale Cervantes cha Location: Telemetry/MedSurg (observation) stefanie Condition: Stable stefanie Problem: new stefanie Symptoms: have improved stefanie Bed/Room Type: Standard stefanie Room Assignment: 202(06/25/24 17:42) sp Diagnosis - COPD/ Chronic obstructive pulmonary disease with (acute) exacerbation stefanie - Anxiety disorder, unspecified stefanie - Hypoxemia stefanie Forms: - Medication Reconciliation Form stefanie - SBAR form stefanie - Leadership Thank You Letter stefanie Signatures: Dispatcher [employer] EDMoi Boggs MD MD cha Pinkerton, Shawna sp Benton, Danielle, RN RN db Corrections: (The following items were deleted from the chart) 13:17 13:17 BASIC METABOLIC PANEL+C.LAB.BRZ ordered. EDMS EDMS 13:17 13:17 CBC+H.LAB.BRZ ordered. EDMS EDMS 13:17 13:17 HEPATIC FUNCTION+C.LAB.BRZ ordered. EDMS EDMS 13:17 13:17 MAGNESIUM+C.LAB.BRZ ordered. EDMS EDMS 13:17 13:17 PROBNP+C.LAB.BRZ ordered. EDMS EDMS 13:17 13:17 PROTIME (+INR)+COAG.LAB.BRZ ordered. EDMS EDMS 13:17 13:17 Troponin High Sensitivity+C.LAB.BRZ ordered. EDMS EDMS 13:17 13:17 LIPASE+C.LAB.BRZ ordered. EDMS EDMS 13:17 13:17 Influenza Screen (A \T\ B)+BA.LAB.BRZ ordered. EDMS EDMS 13:17 13:17 SARS-COV-2 Antigen Rapid+I.LAB.BRZ ordered. EDMS EDMS 13:17 13:17 Urinalysis+U.LAB.BRZ ordered. EDMS EDMS 13:17 13:17 BLOOD CULTURE*+BA.LAB.BRZ ordered. EDMS EDMS 13:17 13:17 Chest Single View+RAD.RAD.BRZ ordered. EDMS EDMS 17:42 15:17 stefanie sp
--- NOTE | 2024-06-25 15:17 | ER ---
Nurse's Notes [facility] Name: Irma Cain Age: 69 yrs Sex: Female : 1955 Arrival Date: 06/25/2024 Time: 13:06 Bed 17 Private MD: Diagnosis: COPD/ Chronic obstructive pulmonary disease with (acute) exacerbation;Anxiety disorder, unspecified;Hypoxemia Presentation: 06/25 13:21 Chief complaint: EMS states: OUT OF PREDNISONE 4 TO 7 DAYS. SOB. Coronavirus screen: db Client denies travel out of the [place] in the last 14 days. At this time, the client does not indicate any symptoms associated with coronavirus-19. Ebola Screen: Patient negative for fever greater than or equal to 101.5 degrees Fahrenheit, and additional compatible Ebola Virus Disease symptoms Patient denies exposure to infectious person. Patient denies travel to an Ebola-affected area in the 21 days before illness onset. No symptoms or risks identified at this time. Initial Sepsis Screen: Does the patient meet any 2 criteria? HR > 90 bpm. No. Patient's initial sepsis screen is negative. Does the patient have a suspected source of infection? No. Patient's initial sepsis screen is negative. Risk Assessment: Do you want to hurt yourself or someone else? Patient reports no desire to harm self or others. Onset of symptoms was June 25, 2024. Care prior to arrival: Medication(s) given: Albuterol Neb Atrovent Neb. 13:21 Method Of Arrival: EMS: [facility] db 13:21 Acuity: FELA 2 db Triage Assessment: 13:23 General: Appears in no apparent distress. comfortable, Behavior is calm, cooperative. db Pain: Denies pain. Neuro: Level of Consciousness is awake, alert, obeys commands, Oriented to person, place, time, situation. Respiratory: Reports shortness of breath Airway is patent Respiratory effort is even, unlabored, Respiratory pattern is regular, symmetrical, BREATHING TREATMENT GOING Onset: The symptoms/episode began/occurred gradually, the patient has mild shortness of breath. Historical: - Allergies: 13:23 Aspirin; db 13:23 Benadryl; db 13:23 Ibuprofen; db 13:23 Neosporin ([id number]); db 13:23 NSAIDS; db 13:23 Talwin; db - PMHx: 13:23 ADD/ADHD; Anxiety; Asthma; depressive disorder; Hypertensive disorder; UNMEDICATED; db Pneumonia; - PSHx: 13:23 Cholecystectomy; db - Immunization history:: Adult Immunizations unknown. - Infectious Disease History:: Denies. - Social history:: Smoking status: Patient denies any tobacco usage or history of. - Family history:: not pertinent. Screenin:54 [facility] ED Fall Risk Assessment (Adult) History of falling in the last 3 months, db including since admission No falls in past 3 months (0 pts) Confusion or Disorientation No (0 pts) Intoxicated or Sedated No (0 pts) Impaired Gait No (0 pts) Mobility Assist Device Used No (0 pt) Altered Elimination No (0 pt) Score/Fall Risk Level 0 - 2 = Low Risk Oriented to surroundings, Maintained a safe environment. 17:50 Abuse screen: Denies threats or abuse. Denies injuries from another. Nutritional db screening: No deficits noted. Tuberculosis screening: No symptoms or risk factors identified. Assessment: 13:25 Reassessment: SEE TRIAGE FOR INITIAL ASSESSMENT. db 14:00 Reassessment: Patient appears in no apparent distress at this time. Patient and/or db family updated on plan of care and expected duration. Pain level reassessed. Patient is alert, oriented x 3, equal unlabored respirations, skin warm/dry/pink. 15:00 Reassessment: Patient appears in no apparent distress at this time. Patient and/or db family updated on plan of care and expected duration. Pain level reassessed. Patient is alert, oriented x 3, equal unlabored respirations, skin warm/dry/pink. General: Appears in no apparent distress. comfortable, Behavior is calm, cooperative. Pain: Complains of pain in head. Neuro: Level of Consciousness is awake, alert, obeys commands, Oriented to person, place, time, situation. Cardiovascular: Rhythm is sinus tachycardia. Respiratory: Airway is patent Respiratory effort is even, unlabored, Respiratory pattern is regular, symmetrical, Breath sounds are clear. 15:15 Reassessment: PT AMBULATORY TO RESTROOM. UPON RETURNING TO ROOM PATIENT SHORT OF db BREATH, TACHYPNIC 30 RESPIRATIONS AND TACHYCARDIC 120'S O2 SAT 07% ON ROOM AIR. PT PLACED ON 2L O2 NC FOR COMFORT. 16:00 Reassessment: Patient appears in no apparent distress at this time. Patient and/or db family updated on plan of care and expected duration. Pain level reassessed. Patient is alert, oriented x 3, equal unlabored respirations, skin warm/dry/pink. 17:00 Reassessment: Patient appears in no apparent distress at this time. Patient and/or db family updated on plan of care and expected duration. Pain level reassessed. Patient is alert, oriented x 3, equal unlabored respirations, skin warm/dry/pink. PATIENT SITTING UP EATING. 17:50 Reassessment: Patient appears in no apparent distress at this time. Patient and/or db family updated on plan of care and expected duration. Pain level reassessed. Patient is alert, oriented x 3, equal unlabored respirations, skin warm/dry/pink. Vital Signs: 13:21 BP 168 / 88; Pulse 110; Resp 16; Temp 98.9; Pulse Ox 99% ; db 13:50 BP 111 / 56; Pulse 122; Resp 27; Pulse Ox 90% on R/A; db 14:00 BP 156 / 81; Pulse 116; Resp 30; Pulse Ox 95% on R/A; db 15:30 BP 132 / 81; Pulse 104; Resp 16; Pulse Ox 98% on R/A; db 16:00 BP 159 / 65; Pulse 103; Resp 18; Pulse Ox 97% 2 lpm ; db 17:00 BP 189 / 73; Pulse 116; Resp 16; Pulse Ox 96% on 2 lpm NC; db 17:30 BP 155 / 70; Pulse 109; Resp 16; Pulse Ox 95% on 2 lpm NC; db Vitals: 13:50 Cardiac Rhythm Assessment Sinus tach. db ED Course: 13:09 Patient arrived in ED. ko1 13:15 Moi Berrios MD is Attending Physician. [email or web address] 13:21 Shraddha Laureano, CANDACE is Primary Nurse. db 13:23 Triage completed. db 13:23 Arm band placed on Patient placed in an exam room. db 13:44 Missed attempt(s): 22 gauge in right antecubital area. Bleeding controlled, band aid db applied, catheter tip intact. 13:44 First set of blood cultures drawn by me. db 13:50 Pillow given. db 13:58 Initial lab(s) drawn, by me, sent to lab. Second set of blood cultures drawn by me. db Missed attempt(s): 22 gauge in left antecubital area. Bleeding controlled, band aid applied, catheter tip intact. 14:10 Missed attempt(s): 22 gauge in left forearm. Bleeding controlled, band aid applied, db catheter tip intact. 14:23 SARS RAPID Sent. db 14:23 Flu Sent. db 14:23 Blood Culture Adult (2) Sent. db 14:25 Patient has correct armband on for positive identification. Bed in low position. Call db light in reach. Side rails up X 1. Client placed on continuous cardiac and pulse oximetry monitoring. NIBP monitoring applied. air sampling and monitoring on. Pulse ox on. NIBP on. 14:32 Inserted saline lock: 22 gauge in right forearm, using aseptic technique. Flushed with em1 10 mL NS. 15:11 XRAY Chest (1 view) In Process Unspecified. EDMS 15:16 Vale Cervantes MD is Hospitalizing Provider. [facility] 17:50 Provided Education on: ADMISSION. 17:50 No provider procedures requiring assistance completed. Patient admitted, IV remains in db place. Administered Medications: 13:34 Drug: Acetaminophen PO 650 mg PO once Route: PO; db 17:00 Follow up: Response: No adverse reaction db 14:19 Drug: Effexor XR PO 75 mg PO once Route: PO; db 17:00 Follow up: Response: No adverse reaction db 14:19 Drug: Levalbuterol Inhalation 3.75 mg Inhalation once Route: Inhalation; db 14:19 Drug: Ipratropium Inhalation Aerosol 0.5 mg Inhalation once Route: Inhalation; db 14:50 Drug: NS 0.9% IV 500 ml 500 ml IV at 1 bolus once; to be given as a bolus over 30 db minutes Volume: 500 ml; Route: IV; Rate: 1 bolus; Site: right forearm; 16:00 Follow up: Response: No adverse reaction; IV Status: Completed infusion; IV Intake: db 500ml 14:50 Drug: MethylPrednisoLONE IVP 125 mg IVP once Route: IVP; Site: right forearm; db 19:00 Follow up: Response: No adverse reaction db 15:00 Drug: Ativan IVP 0.5 mg IVP once Route: IVP; Site: right forearm; db 19:00 Follow up: Response: No adverse reaction db 15:00 Drug: Famotidine IVP 20 mg IVP once; dilute with 10 mL 0.9% NaCl; give over 2 minutes db Route: IVP; Site: right forearm; 18:34 Follow up: Response: No adverse reaction db 15:10 Drug: NS 0.9% IV 1000 ml IV at 125 ml/hr continuous Route: IV; Rate: 125 ml/hr; Site: db right forearm; 19:03 Follow up: IV Status: Infusion continued upon admission db Medication: 13:25 VIS not applicable for this client. db Intake: 16:00 IV: 500ml; Total: 500ml. db Outcome: 15:17 Decision to Hospitalize by Provider. stefanie 17:50 Admitted to Med/surg room 202, Report called to FAXED TO UNIT db 17:50 Condition: stable db 17:50 Instructed on the need for admit, 18:33 Patient left the ED. db Signatures: Dispatcher [employer] Moi Parker MD MD cha Martinez, Eric em1 Sanjuanita Friedman, CANDACE RN ko1 Shraddha Laureano RN RN db Corrections: (The following items were deleted from the chart) 14:25 13:44 Missed attempt(s): 22 gauge in right antecubital area. Bleeding controlled, band db aid applied, catheter tip intact. db
--- NOTE | 2024-06-25 15:26 | RAD REPORT ---
EXAMINATION: ONE VIEW CHEST XR CLINICAL INDICATION: DYSPNEA TECHNIQUE: Frontal chest projection is submitted. Examination is limited by patient positioning and t echnique. COMPARISON: 04/27/2024 FINDINGS: The lungs are emphysematous but clear. The heart is mildly prominent in size. Degenerative changes r ight shoulder. IMPRESSION: No acute intrathoracic abnormalities. COPD.
[2024-06-25 15:38] LABS: Specific Gravity 1.025 (1.005-1.030); Sqamous Epithelial <5 /HPF (None Seen); Urine Bacteria <20 /HPF (<20); Urine Bilirubin NEGATIVE (Negative); Urine Blood 1+ (Negative); Urine Clarity Extremely Turbid (Clear); Urine Color Yellow (Yellow); Urine Culture Reflex Order NOT NEEDED; Urine Glucose NEGATIVE (Negative); Urine Ketones TRACE (Negative); Urine Microscopic Reflex YN ORDER UMIC; Urine Mucus Slight /HPF (None Seen); Urine Nitrite NEGATIVE (Negative); Urine Protein 1+ (Negative); Urine RBC <5 /HPF (None Seen); Urine Urobilinogen Normal (Normal); Urine WBC <5 /HPF (<5); Urine pH 5.5 (5.0-7.0)
[2024-06-25] MEDS: CEFTRIAXONE 1,000 MG in NA CHLORIDE 0.9% 50 ML IVPB SCH (17:00)
[2024-06-25] MEDS ORDERED: IPRATROPIUM BROM 0.5MG/2.5ML NEB SCH (17:00)
[2024-06-25] MEDS ORDERED: CEFTRIAXONE 1000 MG/VIAL ONE (17:54)
[2024-06-25] MEDS ORDERED: NA CHLORIDE 0.9% 50 ML ONE (17:54)
[2024-06-25] MEDS: METHYLPREDNISOLONE 40 MG INJ IV SCH (18:00)
[2024-06-25] MEDS ORDERED: ALBUTEROL 2.5 MG/3 ML NEB SOL NEB SCH (19:00)
[2024-06-25 19:04] LABS: SARS-CoV-2 Antigen CONTROL BLUE LINE VIS/BG OK; SARS-CoV-2 Antigen Rapid Res Negative (Negative)
[2024-06-25] MEDS: ALPRAZOLAM 0.5 MG TABLET PO SCH (21:23)
[2024-06-25] MEDS ORDERED: BENZONATATE 100 MG CAP PO PRN (21:34)
[2024-06-25 22:09] VITALS: BMI 24.5
[2024-06-26] MEDS: BENZONATATE 100 MG CAP PO PRN (00:17)
--- NOTE | 2024-06-26 02:40 | P.HP ---
Certification for Inpatient Patient admitted to: Inpatient With expected LOS: >2 Midnights Patient will require the following post-hospital care: None Practitioner: I am a practitioner with admitting privileges, knowledge of patient current condition, hospital course, and medical plan of care. Services: Services provided to patient in accordance with Admission requirements found in Title 42 Section 412.3 of the Code of Federal Regulations Patient History Date of Service: 06/25/24 Reason for admission: Shortness of breath with fever History of Present Illness: Patient is a 69-year-old female with past medical history of chronic asthma on prednisone,, hypertension, anxiety, depression, history of pneumonia with septic shock, ADD, came in with fever and shortness of breath. Patient has once again run out of her prednisone, Effexor, Xanax and other medications. She states she has been running fevers and she was hoping to get prednisone called in but she was unsuccessful. She does not have her inhaler nor her anxiolytics. Whenever she gets short of breath like this she tends to use her inhalers as well as her prednisone with some anxiolytics which help alleviate her symptoms. She has been out of them for the last week. She decided to come back into the ER for further evaluation. In the ER, she was given nebs, steroids, and antibiotics. Patient clinical symptoms have improved and she feels much better. However, she remains hypoxic and tachypneic. She will be admitted to the hospital for inpatient hospitalization. Allergies aspirin Allergy (Intermediate, Verified 11/07/12 16:55) Anaphylaxis bacitracin [From Neosporin ([id number])] Allergy (Intermediate, Verified 11/07/12 16:55) aquino skin bacitracin zinc [From Neosporin ([id number]-hgl-khery)] Allergy (Intermediate, Verified 11/07/12 16:55) aquino skin neomycin sulfate [From Neosporin ([id number]-[id number])] Allergy (Intermediate, Verified 11/07/12 16:55) aquino skin polymyxin B [From Neosporin ([id number])] Allergy (Intermediate, Verified 11/07/12 16:55) aquino skin NSAIDS Allergy (Severe, Uncoded 03/29/24 04:24) Anaphylaxis Neosporin ([id number]-bmh-skeva) Allergy (Uncoded 06/03/18 18:20) Itching Home Medications: Fluticasone/Umeclidin/Vilanter [Trelegy Ellipta 100-62.5-25] 1 puff PO BEDTIME PRN 07/17/22 Benzonatate [Tessalon Perle*] 100 mg PO TID PRN #60 cap 01/07/24 Albuterol Inhaler [Ventolin Inhaler*] 2 puff IH Q6H PRN #1 inh 01/08/24 Venlafaxine HCl [Effexor XR] 150 mg PO DAILY #30 cap 01/08/24 Alprazolam [Xanax] 1 mg PO BID PRN #60 tab 03/15/24 Ipratropium Neb [Atrovent*] 0.5 mg NEB [id number] PRN 03/29/24 Venlafaxine HCl *Xr* [Effexor XR] 75 mg PO DAILY 03/29/24 Atorvastatin Calcium [Lipitor] 40 mg PO BEDTIME #30 tab 05/08/24 Metoprolol Tartrate [Lopressor*] 25 mg PO BID 6AM 6PM #60 tab 05/08/24 predniSONE [Deltasone*] 10 mg PO DAILY 06/25/24 - Past Medical/Surgical History Diabetic: No -: Asthma -: Depression -: Osteoporosis -: GERD with hiatal hernia -: Obesity -: Hypertension -: ADHD -: -: Tubal ligation -: cholecystectomy -: cataract surgery -: rt shoulder sx x2 -: sx on left knee Psychosocial/ Personal History: Patient is . She has 1 child. She is retired. - Family History Mother Medical History: Heart disease, Hypertension, Diabetes Father Medical History: Heart disease, Hypertension, Lung disease, Cancer, Other (see notes) Notes: asbestosis - Social History Smoking Status: Unknown if ever smoked Alcohol use: No CD- Drugs: No Caffeine use: Yes Place of Residence: Home Review of Systems 10-point ROS is otherwise unremarkable Physical Examination - Vital Signs Temperature: 97.4 F Blood Pressure: 159/64 Pulse: 95 Respirations: 17 Pulse Ox (%): 95 - Physical Exam General: Alert, In no apparent distress, Oriented x3 HEENT: Atraumatic, PERRLA, Mucous membr. moist/pink, EOMI, Sclerae nonicteric Neck: Supple, 2+ carotid pulse no bruit, No LAD, Without JVD or thyroid abnormality Respiratory: Diminished, Expiratory wheezes Cardiovascular: Regular rate/rhythm, Normal S1 S2, No murmurs Gastrointestinal: Normal bowel sounds, Soft and benign, Non-distended, No tenderness, No rebound, No guarding Musculoskeletal: No clubbing, No swelling, No tenderness Integumentary: No rashes Neurological: Normal tone, Sensation intact, Cranial nerves 3-12 intact, Abnormal gait, Abnormal strength Lymphatics: No axilla or inguinal lymphadenopathy - Studies Laboratory Data (last 24 hrs) 06/25/24 06/25/24 06/25/24 13:58 13:58 13:58 WBC 11.60 H Hgb 13.2 Hct 40.9 Plt Count 408 H PT 11.8 INR 1.06 Sodium 141 Potassium 3.6 BUN 10 Creatinine 1.00 Glucose 113 H Magnesium 2.0 Total Bilirubin 0.5 AST 27 ALT 20 Alkaline Phosphatase 108 Lipase 37 Microbiology Data (last 24 hrs): 06/25/24 13:58 Nasopharnyx Influenza Type A Antigen Screen - Final 06/25/24 13:58 Nasopharnyx Influenza Type B Antigen Screen - Final Assessment & Plan - Problems (Diagnosis) (1) Asthma exacerbation Onset Date: 06/06/18 Current Visit: No Status: Acute (2) Depression with anxiety Onset Date: 06/06/18 Current Visit: No Status: Acute (3) SOB (shortness of breath) Onset Date: 06/06/18 Current Visit: No Status: Acute (4) Tachycardia Current Visit: No Status: Acute (5) Heart failure with preserved ejection fraction Current Visit: Yes Status: Acute - Plan Plan: 1. Continue with albuterol and Atrovent nebs 2. Continue with IV steroids 3. Outpatient pulmonary follow-up if symptoms do not improve 5. Room air O2 sats 6. Repeat chest x-ray in the morning 7. Gentle diuresing; medication for diastolic dysfunction 8. GI and DVT prophylaxis Discharge Plan: Home Plan to discharge in: Greater than 2 days - Advance Directives Does patient have a Living Will: No Does patient have a Durable POA for Healthcare: No - Code Status/Comfort Care Code Status Assessed: Yes Code Status: Full Code Critical Care: No Time Spent Managing PTS Care (In Minutes): 45
[2024-06-26] MEDS: HYDRALAZINE HCL 20 MG/ML VIAL IV PRN (05:16)
[2024-06-26 06:03] LABS: Absolute Lymphocytes (CBC) 1.1 K/uL (0.7-4.9); Absolute Monocytes 0.1 K/uL (0.1-1.3); Absolute Neutrophil 6.1 K/uL (1.8-8.0); Basophils % 0.1 % (0-1.3); Hematocrit 32.2 % (36.0-45.0); Hemoglobin 10.7 g/dL (12.0-15.0); Lymphocytes % 14.9 % (15.3-44.8); MCH 30.2 pg (27.0-35.0); MCHC 33.3 g/dL (32.0-36.0); MCV 90.6 fL (80-100); MPV 7.9 fL (7.6-11.3); Monocytes % 1.2 % (3.3-12.3); Neutrophils % 83.8 % (41.7-73.7); Platelets 346 thou/uL (152-406); RBC Red Blood Cell Count 3.56 M/uL (3.86-4.86); Red Cell Distribution Width 14.8 % (12.1-15.2)
[2024-06-26 06:29] LABS: Anion Gap 8.6 mEq/L (5.0-15.0); Potassium 3.6 mEq/L (3.5-5.1)
[2024-06-26] MEDS: ENSURE MAX PROTEIN 330 ML LIQUID PO SCH (07:30)
[2024-06-26] MEDS: IPRATROPIUM BROM 0.5MG/2.5ML ONE (08:28)
[2024-06-26] MEDS: ACETAMINOPHEN 500 MG TAB PO PRN (08:40)
[2024-06-26] MEDS: predniSONE 20 MG TAB PO SCH (08:41)
[2024-06-26] MEDS: SPIRONOLACTONE 25 MG TABLET PO SCH (08:41)
[2024-06-26] MEDS: AZITHROMYCIN 250 MG TAB PO SCH (08:41)
[2024-06-26] MEDS: POTASSIUM CL SA 10 MEQ TAB PO ONE (08:42)
[2024-06-26] MEDS: DULERA 200/5 (MOMETASONE/FORMOTEROL) INHALER IH SCH (08:42)
[2024-06-26] MEDS: ROFLUMILAST 500 MCG TABLET PO SCH (08:42)
[2024-06-26] MEDS ORDERED: FUROSEMIDE 20 MG/ 2ML VIAL IV SCH (09:00)
--- NOTE | 2024-06-26 10:18 | EKG ---
Test Date: 2024-06-25 Test Time: 13:40:47 [place]: EKATERINA MEASUREMENT RESULTS: Intervals: Rate: 117 FL: 150 QRSD: 106 QT: 340 QTc: 474 [place]: P: 84 FL: 150 QRS: 72 T: -46 INTERPRETIVE STATEMENTS: Sinus tachycardia Minimal voltage criteria for LVH, may be normal variant ST & T wave abnormality, consider inferolateral ischemia Abnormal ECG Compared to ECG 04/27/2024 14:55:05 Left ventricular hypertrophy now present Sinus rhythm no longer present Prolonged QT interval no longer present ST (T wave) deviation still present Possible ischemia still present Electronically Signed On 06-26-24 10:17:34 FOUNDRY ENGINEER by Jesus Santana
[2024-06-26] MEDS: ALPRAZOLAM 1 MG TABLET PO SCH ×2 (10:38→14:59)
[2024-06-26] MEDS: IPRATROPIUM BROM 0.5MG/2.5ML NEB PRN (10:46)
--- NOTE | 2024-06-26 12:03 | P.CNS ---
Date of Consult: 06/26/24 Reason for Consult: COPD exacerbation Chief Complaint: Shortness of breath with fever History of Present Illness: Patient is 69 years of age very weak debilitated has very severe obstructive airways disease recurrent exacerbations and admissions to the hospital she became sick over the past week developed progressive dyspnea cough shortness of breath on mild exertion apparently she ran out of her steroids does not have a nebulizer at home was compliant with trilogy no fever chills or productive cough Allergies aspirin Allergy (Intermediate, Verified 11/07/12 16:55) Anaphylaxis bacitracin [From Neosporin ([id number])] Allergy (Intermediate, Verified 11/07/12 16:55) aquino skin bacitracin zinc [From Neosporin (nju-lis-cjitv)] Allergy (Intermediate, Verified 11/07/12 16:55) aquino skin neomycin sulfate [From Neosporin ([id number]-ftb-[id number])] Allergy (Intermediate, Verified 11/07/12 16:55) aquino skin polymyxin B [From Neosporin (zpa-uug-iacez)] Allergy (Intermediate, Verified 11/07/12 16:55) aquino skin NSAIDS Allergy (Severe, Uncoded 03/29/24 04:24) Anaphylaxis Neosporin ([id number]-kzu-[id number]) Allergy (Uncoded 06/03/18 18:20) Itching Home Medications: Fluticasone/Umeclidin/Vilanter [Trelegy Ellipta 100-62.5-25] 1 puff PO BEDTIME PRN 07/17/22 Benzonatate [Tessalon Perle*] 100 mg PO TID PRN #60 cap 01/07/24 Albuterol Inhaler [Ventolin Inhaler*] 2 puff IH Q6H PRN #1 inh 01/08/24 Venlafaxine HCl [Effexor XR] 150 mg PO DAILY #30 cap 01/08/24 Alprazolam [Xanax] 1 mg PO BID PRN #60 tab 03/15/24 Ipratropium Neb [Atrovent*] 0.5 mg NEB [id number] PRN 03/29/24 Venlafaxine HCl *Xr* [Effexor XR] 75 mg PO DAILY 03/29/24 Atorvastatin Calcium [Lipitor] 40 mg PO BEDTIME #30 tab 05/08/24 Metoprolol Tartrate [Lopressor*] 25 mg PO BID 6AM 6PM #60 tab 05/08/24 predniSONE [Deltasone*] 10 mg PO DAILY 06/25/24 - Past Medical/Surgical History Diabetic: No -: Asthma -: Depression -: Osteoporosis -: GERD with hiatal hernia -: Obesity -: Hypertension -: ADHD -: -: Tubal ligation -: cholecystectomy -: cataract surgery -: rt shoulder sx x2 -: sx on left knee Psychosocial/ Personal History: Patient is . She has 1 child. She is retired. - Family History Mother Medical History: Heart disease, Hypertension, Diabetes Father Medical History: Heart disease, Hypertension, Lung disease, Cancer, Other (see notes) Notes: asbestosis - Social History Smoking Status: Unknown if ever smoked Alcohol use: No CD- Drugs: No Caffeine use: Yes Place of Residence: Home Review of Systems 10-point ROS is otherwise unremarkable General: Weakness Respiratory: Cough, Shortness of Breath Physical Examination Temp Pulse Resp BP Pulse Ox 98.0 F 96 H 22 H 178/79 H 95 06/26/24 08:00 06/26/24 08:41 06/26/24 08:00 06/26/24 08:41 06/26/24 08:00 General: Alert, Oriented x3 Respiratory: Diminished, Expiratory wheezes Cardiovascular: No edema, Regular rate/rhythm, Normal S1 S2 Gastrointestinal: Normal bowel sounds, Soft and benign Laboratory Data (last 24 hrs) 06/25/24 06/25/24 06/25/24 13:58 13:58 13:58 WBC 11.60 H Hgb 13.2 Hct 40.9 Plt Count 408 H PT 11.8 INR 1.06 Sodium 141 Potassium 3.6 BUN 10 Creatinine 1.00 Glucose 113 H Magnesium 2.0 Total Bilirubin 0.5 AST 27 ALT 20 Alkaline Phosphatase 108 Lipase 37 - Problems (1) COPD exacerbation Current Visit: Yes Status: Acute Plan: Patient is 69 years of age with underlying chronic obstructive pulmonary disease she has become progressively worse very weak debilitated history of significant depression and anxiety compliant with Treelgy at home ran out of her prednisone nebulizer medication chest x-ray is clear labs reviewed BNP is elevated previous echocardiograms have been normal she was recently admitted with blackout changed to p.o. prednisone add spironolactone DC Lasix patient's blood pressure is elevated uses nebulizers add Zithromax and Daliresp oxygenation satisfactory
[2024-06-26] MEDS: LEVALBUTEROL 1.25 MG/3 ML NEB NEB SCH (13:19)
[2024-06-26] MEDS: IPRATROPIUM BROM 0.5MG/2.5ML NEB SCH (13:19)
--- NOTE | 2024-06-26 17:31 | P.PN ---
Date of Service: 06/26/24 subjective moderate anxiety Review of Systems 10-point ROS is otherwise unremarkable Physical Examination - Vital Signs reviewed - Physical Exam General: Alert, In no apparent distress, Oriented x3, moderate anxiety HEENT: Atraumatic, PERRLA, Mucous membr. moist/pink, Neck: Supple, 2+ carotid pulse no bruit, No LAD, Respiratory: Diminished, Expiratory wheezes Cardiovascular: Regular rate/rhythm, Normal S1 S2, No murmurs Gastrointestinal: Normal bowel sounds, nontender Musculoskeletal: No clubbing, No swelling, No tenderness Neurological: Normal tone, Sensation intact, Cranial nerves 3-12 intact, Assessment & Plan - Problems (Diagnosis) (1) Asthma exacerbation Onset Date: 06/06/18 Current Visit: No Status: Acute (2) Depression with anxiety Onset Date: 06/06/18 Current Visit: No Status: Acute (3) SOB (shortness of breath) Onset Date: 06/06/18 Current Visit: No Status: Acute (4) Tachycardia Current Visit: No Status: Acute (5) Heart failure with preserved ejection fraction Current Visit: Yes Status: Acute - Plan Plan: 1. Continue with albuterol and Atrovent nebs 2. Continue with IV steroids 3. Outpatient pulmonary follow-up if symptoms do not improve 5. Room air O2 sats 6. Repeat chest x-ray in the morning 7. Gentle diuresing; medication for diastolic dysfunction 8. GI and DVT prophylaxis Discharge Plan: Home Plan to discharge in: Greater than 2 days - Advance Directives Does patient have a Living Will: No Does patient have a Durable POA for Healthcare: No - Code Status/Comfort Care Code Status Assessed: Yes Code Status: Full Code Critical Care: No Time Spent Managing PTS Care (In Minutes): 35
[2024-06-26] MEDS: ZOLPIDEM TARTRATE 5 MG TABLET PO SCH (20:03)
[2024-06-27 04:59] LABS: Hemoglobin 10.6 g/dL (12.0-15.0); MCH 30.3 pg (27.0-35.0)
[2024-06-27 05:11] LABS: Anion Gap 7.7 mEq/L (5.0-15.0); Magnesium 2.2 mg/dL (1.6-2.4); Potassium 3.7 mEq/L (3.5-5.1)
[2024-06-27 05:15] LABS: Absolute Lymphocytes (CBC) 1.2 K/uL (0.7-4.9); Absolute Monocytes 0.6 K/uL (0.1-1.3); Absolute Neutrophil 15.1 K/uL (1.8-8.0); Basophils % 0.1 % (0-1.3); Hematocrit 31.9 % (36.0-45.0); MCHC 33.3 g/dL (32.0-36.0); MCV 91.1 fL (80-100); Monocytes % 3.3 % (3.3-12.3); Neutrophils % 89.6 % (41.7-73.7); Platelets 396 thou/uL (152-406); Red Cell Distribution Width 15.2 % (12.1-15.2)
[2024-06-27 07:55] LABS: Blood Morphology Comment NOT SEEN (NOT SEEN); Platelet Estimate ADEQ; White Blood Cell Scan OK (OK)
[2024-06-27] MEDS: POTASSIUM 25 MEQ EFFERV TAB PO ONE (09:47)
[2024-06-27] MEDS: VENLAFAXINE HCL 75 MG TABLET PO SCH (10:35)
--- NOTE | 2024-06-27 11:45 | P.PN ---
Subjective Date of Service: 06/27/24 Chief Complaint: COPD exacerbation Subjective: Improving Patient is doing better shortness of breath is improved cough is also improved patient is ambulating Review of Systems General: Weakness Respiratory: Cough, Shortness of Breath Physical Examination - Vital Signs Temperature: 97.1 F Blood Pressure: 179/77 Pulse: 106 Respirations: 24 Pulse Ox (%): 96 - Physical Exam General: Alert, Oriented x3 Respiratory: Clear to auscultation bilaterally, Diminished Cardiovascular: No edema, Regular rate/rhythm, Normal S1 S2 Assessment And Plan - Current Problems (Diagnosis) (1) COPD exacerbation Current Visit: Yes Status: Acute Plan: Patient admitted with COPD exacerbation is currently doing better patient was out of her steroids at home also needs a new nebulizer labs chemistries all reviewed chest x-ray is clear no evidence of infection white count elevated I suspect is from the steroids start patient on prednisone 10 mg twice a day so add Augmentin and Zithromax for now pressure is elevated Discharge Plan: Home Plan to discharge in: 24 Hours
--- NOTE | 2024-06-27 14:02 | P.PN ---
Date of Service: 06/27/24 Date of Service: 06/26/24 subjective moderate anxiety, tearful, respiratory status improved to baseline. Patient is fearful of discharge Review of Systems 10-point ROS is otherwise unremarkable Physical Examination - Vital Signs reviewed - Physical Exam General: Alert, In no apparent distress, Oriented x3, moderate anxiety HEENT: Atraumatic, PERRLA, Mucous membr. moist/pink, Neck: Supple, 2+ carotid pulse no bruit, No LAD, Respiratory: Diminished, Expiratory wheezes Cardiovascular: Regular rate/rhythm, Normal S1 S2, No murmurs Gastrointestinal: Normal bowel sounds, nontender Musculoskeletal: No clubbing, No swelling, No tenderness Neurological: Normal tone, Sensation intact, Cranial nerves 3-12 intact, Assessment & Plan - Problems (Diagnosis) (1) Asthma exacerbation Onset Date: 06/06/18 Current Visit: No Status: Acute (2) Depression with anxiety Onset Date: 06/06/18 Current Visit: No Status: Acute (3) SOB (shortness of breath) Onset Date: 06/06/18 Current Visit: No Status: Acute (4) Tachycardia Current Visit: No Status: Acute (5) Heart failure with preserved ejection fraction Current Visit: Yes Status: Acute - Plan Plan: 1. Continue with albuterol and Atrovent nebs 2. Continue with IV steroids 3. Outpatient pulmonary follow-up if symptoms do not improve 5. Room air O2 sats 6. Repeat chest x-ray in the morning 7. Gentle diuresing; medication for diastolic dysfunction 8. GI and DVT prophylaxis 06/27/24 pt remains tachycardic and hypertensive pt may benefit emotionally and physically from BB even though it can exacerbate asthma s/s consulted technical services assistant to try for assisted living vs SNF custodial placement Discharge Plan: Home Plan to discharge in: tomorrow - Advance Directives Does patient have a Living Will: No Does patient have a Durable POA for Healthcare: No - Code Status/Comfort Care Code Status Assessed: Yes Code Status: Full Code Critical Care: No Time Spent Managing PTS Care (In Minutes): 35
[2024-06-27] MEDS: METOPROLOL XL 50 MG TAB PO ONE (16:16)
[2024-06-27] MEDS: AMOX/K CLAV 500 MG TAB PO SCH (19:59)
[2024-06-27] MEDS: ONDANSETRON 4 MG/2 ML VIAL IV PRN (21:13)
[2024-06-28 05:13] LABS: Absolute Lymphocytes (CBC) 1.1 K/uL (0.7-4.9); Absolute Monocytes 0.4 K/uL (0.1-1.3); Absolute Neutrophil 10.8 K/uL (1.8-8.0); Basophils % 0.1 % (0-1.3); Hematocrit 31.2 % (36.0-45.0); Hemoglobin 10.2 g/dL (12.0-15.0); Lymphocytes % 8.8 % (15.3-44.8); MCH 30.2 pg (27.0-35.0); MCHC 32.7 g/dL (32.0-36.0); MCV 92.2 fL (80-100); Monocytes % 3.5 % (3.3-12.3); Nucleated Red Blood Cells % 0.1 % (0-0); Platelets 370 thou/uL (152-406); RBC Red Blood Cell Count 3.39 M/uL (3.86-4.86); Red Cell Distribution Width 15.2 % (12.1-15.2)
[2024-06-28 05:19] LABS: Neutrophils % 87.6 % (41.7-73.7)
[2024-06-28] MEDS: METOPROLOL XL 50 MG TAB PO SCH (05:25)
[2024-06-28 05:26] LABS: Anion Gap 6.2 mEq/L (5.0-15.0); Magnesium 2.4 mg/dL (1.6-2.4); Potassium 4.2 mEq/L (3.5-5.1)
--- NOTE | 2024-06-28 08:32 | RAD REPORT ---
EXAMINATION: ONE VIEW CHEST XR CLINICAL INDICATION: Female, 69 years old., Dyspnea re-eval TECHNIQUE: Frontal chest projection is submitted. Examination is limited by patient positioning and t echnique. COMPARISON: 06/25/2024 FINDINGS: The lungs are well inflated and clear. No pneumothorax or sizable effusion. The heart is normal in s ize. Mediastinal contours are unremarkable. IMPRESSION: No acute intrathoracic abnormalities.
[2024-06-28] MEDS ORDERED: VENLAFAXINE HCL 75 MG TABLET PO SCH (10:17)
--- NOTE | 2024-06-28 12:09 | P.PN ---
Subjective Date of Service: 06/28/24 Chief Complaint: COPD exacerbation Patient is improving still complaining of dyspnea on exertion and an asthma attack yesterday just feels weak able to ambulate to the bathroom Review of Systems General: Weakness Respiratory: Shortness of Breath Physical Examination - Vital Signs Temperature: 97.7 F Blood Pressure: 125/58 Pulse: 76 Respirations: 16 Pulse Ox (%): 94 - Physical Exam General: Alert, Oriented x3 Respiratory: Diminished Cardiovascular: No edema, Regular rate/rhythm, Normal S1 S2 Assessment And Plan - Current Problems (Diagnosis) (1) COPD exacerbation Current Visit: Yes Status: Acute Plan: Patient admitted with COPD exacerbation feeling weak recent blackouts pressure is much better controlled reduce the dose of metoprolol to 25 mg daily continue with spironolactone blood pressure was elevated has no change in medication discharged home on Zithromax to 50 mg daily for 10 days low-dose prednisone 10 mg twice a day and Augmentin sickle therapy oxygenation satisfactory patient looks better today no audible wheezing
[2024-06-28] MEDS ORDERED: ROCURONIUM 50 MG/5 ML VIAL IV ONE (14:59)
[2024-06-28] MEDS ORDERED: ETOMIDATE 20 MG/10 ML VIAL IV ONE (14:59)
--- NOTE | 2024-06-28 18:04 | P.PN ---
Date of Service: 06/28/24 Date of Service: 06/26/24 subjective Moderate anxiety, tearful, respiratory status improved to baseline. Patient is fearful of discharge. This morning pt was sleeping soundly, no audible wheezing. Offered to try to place in SNF or assisted living as Patient is fearful of going home Review of Systems 10-point ROS is otherwise unremarkable Physical Examination - Vital Signs reviewed - Physical Exam General: Alert, In no apparent distress, Oriented x3, moderate anxiety HEENT: Atraumatic, PERRLA, Mucous membr. moist/pink, Neck: Supple, 2+ carotid pulse no bruit, No LAD, Respiratory: Diminished, Expiratory wheezes - mild Cardiovascular: Regular rate/rhythm, Normal S1 S2, No murmurs Gastrointestinal: Normal bowel sounds, nontender Musculoskeletal: No clubbing, No swelling, No tenderness Neurological: Normal tone, Sensation intact, Cranial nerves 3-12 intact, Assessment & Plan - Problems (Diagnosis) (1) Asthma exacerbation Onset Date: 06/06/18 Current Visit: No Status: Acute (2) Depression with anxiety Onset Date: 06/06/18 Current Visit: No Status: Acute (3) SOB (shortness of breath) Onset Date: 06/06/18 Current Visit: No Status: Acute (4) Tachycardia Current Visit: No Status: Acute (5) Heart failure with preserved ejection fraction Current Visit: Yes Status: Acute - Plan Plan: 1. Continue with albuterol and Atrovent nebs 2. Continue with IV steroids - switch to po for discharge 3. Outpatient pulmonary follow-up if symptoms do not improve (Dr. Li following) 5. Room air O2 sats 6. Repeat chest x-ray in the morning 7. Gentle diuresing; medication for diastolic dysfunction 8. GI and DVT prophylaxis 06/27/24 pt remains tachycardic and hypertensive pt may benefit emotionally and physically from BB even though it can exacerbate asthma s/s consulted marketing services rep to try for assisted living vs SNF [facility] placement 06/28/24 blood pressure and HR significantly better with Spironolactone and Metoprolol. Sleeping well. Will discharge home or to SNF likely in am Discharge Plan: Home Plan to discharge in: tomorrow - Advance Directives Does patient have a Living Will: No Does patient have a Durable POA for Healthcare: No - Code Status/Comfort Care Code Status Assessed: Yes Code Status: Full Code Critical Care: No Time Spent Managing PTS Care (In Minutes): 35 <Laura Mata - Last Filed: 06/28/24 17:59> Patient pulmonary symptoms improved, she states that that she has a multifocal syncopal at home, reviewed old chart extensive workup for syncope done including transthoracic echocardiogram, no cause of syncope was identified, patient did not experience a syncopal attack during this admission and may need an event monitor. <RACHEL Humphries - Last Filed: 06/29/24 06:29>
[2024-06-29] MEDS: DOPAMINE/D5W 400 MG/250 ML BAG IV SCH (04:22)
[2024-06-29] MEDS: propofoL 1,000 MG/100 ML VIAL IV ONE (04:38)
--- NOTE | 2024-06-29 04:38 | P.PN ---
Date of Service: 06/29/24 CODE BLUE activated after patient lost pulse. CPR was initiated. She was defibrillated twice with 200 J for ventricular tachycardia. Patient was eventually given amiodarone 300 mg followed by infusion. ER team intubated the patient and placed a central line. Patient will be transferred to ICU for higher level of care.
[2024-06-29] MEDS ORDERED: AMIODARONE HCL 450 MG in D5W 241 ML IV SCH (05:00)
[2024-06-29] MEDS: propofoL 1,000 MG/100 ML VIAL IV SCH (05:18)
[2024-06-29] MEDS ORDERED: DOPAMINE/D5W 400 MG/250 ML BAG IV SCH (05:25)
[2024-06-29] MEDS: METOPROLOL XL 25 MG TAB PO SCH (06:00)
[2024-06-29 06:12] LABS: Absolute Lymphocytes (CBC) 2.4 K/uL (0.7-4.9); Absolute Monocytes 0.6 K/uL (0.1-1.3); Absolute Neutrophil 19.2 K/uL (1.8-8.0); Hemoglobin 11.9 g/dL (12.0-15.0); Lymphocytes % 10.7 % (15.3-44.8); MCH 29.7 pg (27.0-35.0); MCHC 32.2 g/dL (32.0-36.0); MCV 92.4 fL (80-100); MPV 8.3 fL (7.6-11.3); Monocytes % 2.8 % (3.3-12.3); Neutrophils % 86.5 % (41.7-73.7); Nucleated Red Blood Cells % 0.1 % (0-0); Platelets 508 thou/uL (152-406); Red Cell Distribution Width 15.2 % (12.1-15.2)
[2024-06-29 06:14] LABS: Albumin 2.9 g/dL (3.4-5.0); Albumin/Globulin Ratio 0.8 (1.1-1.8); Anion Gap 12.6 mEq/L (5.0-15.0); Bilirubin Total 0.7 mg/dL (0.2-1.0); Globulin 3.6 g/dL (2.3-3.5); Magnesium 2.7 mg/dL (1.6-2.4); Potassium 4.6 mEq/L (3.5-5.1); Protein, Total 6.5 g/dL (6.4-8.2)
--- NOTE | 2024-06-29 06:23 | RAD REPORT ---
CLINICAL HISTORY: POST INTUBATION /CRP COMPARISON: None. TECHNIQUE: XR CHEST 1 VIEW 06/29/2024 12:00 AM PARADI TENDER FINDINGS: Cardiac silhouette is normal in size. Lungs are clear without consolidation, atelectasis, mass or nelia ma. There is no pleural effusion. There is no pneumothorax. There are no acute osseous findings. Endotracheal tube tip is in the lower trachea. Left-sided defibrillator paddles are present. IMPRESSION: Clear lungs. Electronically signed by: Telly Escobar MD 06/29/2024 06:08 AM PARADI TENDER RP Due to temporary technical issues with the PACS/Archetypes reporting system, reports are being dasia d by the in-house radiologist without review as a courtesy to ensure prompt reporting the interpreting radiologist is fully responsible for the content of the report. Transcribed Date/Time: 06/29/2024 6:22 AM
[2024-06-29] MEDS ORDERED: HEPARIN/D5W 25,000 UNIT/500 ML BAG IV SCH (07:00)
[2024-06-29] MEDS ORDERED: NA CHLORIDE 0.9% 250 ML IV PRN (07:54)
[2024-06-29] MEDS: IPRATROPIUM BROM 0.5MG/2.5ML NEB SCH (08:00)
[2024-06-29] MEDS: DEXMEDETOMIDINE HCL 1,000 MCG in NA CHLORIDE 0.9% 490 ML IV SCH (08:39)
[2024-06-29 08:40] LABS: Anisocytosis 1+; Band Neutrophils 5 % (0-1); Blood Morphology Comment NOTED (NOT SEEN); Differential Total Cells Count 100; Lymphocytes 18 % (15-42); Metamyelocytes 2 % (0-0); Monocytes 3 % (0-10); Platelet Estimate INCR; Segmented Neutrophils 72 % (40-80)
[2024-06-29] MEDS: FAMOTIDINE 20 MG/2 ML VIAL IV SCH (08:58)
[2024-06-29] MEDS: FENTANYL CITR 100 MCG/2 ML IV PRN (08:59)
[2024-06-29] MEDS: NA CHLORIDE 0.9% 1,000 ML IV SCH (08:59)
[2024-06-29] MEDS: LORazepam 2 MG/ML VIAL IV PRN (08:59)
[2024-06-29] MEDS: METHYLPREDNISOLONE 40 MG INJ IV SCH (08:59)
[2024-06-29] MEDS: ENOXAPARIN 40 MG/0.4 ML SQ SCH (09:00)
[2024-06-29] MEDS ORDERED: METHYLPREDNISOLONE 40 MG INJ IV SCH ×2 (09:00)
[2024-06-29] MEDS: WATER IV SCH (09:23)
[2024-06-29] MEDS: DEXTROSE 5% IV SCH (09:23)
[2024-06-29] MEDS: AMIODARONE HCL IV SCH (09:23)
--- NOTE | 2024-06-29 09:31 | P.PN ---
Subjective Date of Service: 06/29/24 Chief Complaint: COPD exacerbation Subjective: Other (Pt had pulseless VT overnight. She was apparently sitting in chair and slumped over. She was placed on her bed, defibrillated x 2, amiodarone was given and drip hung. She developed some hypotension and a central line was placed and dopamine initiated. She was transferred to ICU and placed on propofo) Review of Systems is unable to be obtained (pt is intubated/sedated) Physical Examination - Vital Signs Temperature: 96.9 F Blood Pressure: 138/67 Pulse: 87 Respirations: 21 Pulse Ox (%): 100 - Physical Exam General: Other (sedated) HEENT: Atraumatic, Normocephalic Neck: Supple, 2+ carotid pulse no bruit Respiratory: Clear to auscultation bilaterally, Other (intubated) Cardiovascular: No edema, No gallops, No rubs, No murmurs, Irregular heart rate/rhythm Capillary refill: <2 Seconds Gastrointestinal: Hypoactive Musculoskeletal: No clubbing, No swelling Integumentary: Other (chronic steroid use, thin, hyperemic) Neurological: Other (intubated but jerks like she is having spasms of pain, pain meds ordered. Tele in room does not show VT or other dangerous arrhythmia with spasms) Lymphatics: No axilla or inguinal lymphadenopathy External genitalia: Deferred Rectal: Deferred Assessment And Plan - Plan Assessment & Plan - Problems (Diagnosis) (1) Asthma exacerbation Onset Date: 06/06/18 Current Visit: No Status: Acute (2) Depression with anxiety Onset Date: 06/06/18 Current Visit: No Status: Acute (3) SOB (shortness of breath) Onset Date: 06/06/18 Current Visit: No Status: Acute (4) Tachycardia Current Visit: No Status: Acute (5) Heart failure with preserved ejection fraction Current Visit: Yes Status: Acute - Plan Plan: 1. Continue with albuterol and Atrovent nebs 2. Continue with IV steroids - switch to po for discharge 3. Outpatient pulmonary follow-up if symptoms do not improve (Dr. Li following) 5. Room air O2 sats 6. Repeat chest x-ray in the morning 7. Gentle diuresing; medication for diastolic dysfunction 8. GI and DVT prophylaxis 06/27/24 pt remains tachycardic and hypertensive pt may benefit emotionally and physically from BB even though it can exacerbate asthma s/s consulted environmental services technician to try for assisted living vs SNF care home placement 06/28/24 blood pressure and HR significantly better with Spironolactone and Metoprolol. Sleeping well. Patient pulmonary symptoms improved, she states that that she has a multifocal syncopal at home, reviewed old chart extensive workup for syncope done including transthoracic echocardiogram, no cause of syncope was identified, patient did not experience a syncopal attack during this admission and may need an event monitor. 06/29/24 A papa herrmann was called early this am for pulseless VT. The ED MD stated that when he entered the room, the patient was cyanotic, 2 defibrillations administered and she had ROSC. She was given IV push amiodarone and started on a drip. She was also given Calcium 2amps and NaHCO3 2amps. Her blood pressure became soft so central line placed and dopamine initiated. She was given propofol and moved to ICU #1. The dopamine has been weaned this am, the propofol was switched to precedex. Mr. Cain has spasms of apparent pain so fentanyl has been ordered. I consulted Dr. Santana this am and he agreed to evaluate the patient. Heparin drip initiated. Obviously po medications are held, prednisone dependent so initiated solu-medrol 40mg IV q 8h Discharge Plan: Home Plan to discharge in: tomorrow - Advance Directives Does patient have a Living Will: No Does patient have a Durable POA for Healthcare: No - Code Status/Comfort Care Code Status Assessed: Yes Code Status: Full Code Critical Care: No Time Spent Managing PTS Care (In Minutes): 35
--- NOTE | 2024-06-29 10:39 | P.CNS ---
Date of Consult: 06/29/24 Chief Complaint: COPD exacerbation History of Present Illness: Patient with PMH of advanced COPD, poor general condition, was admitted to the hospital for COPD exacerbation, and has been getting treatment for last few days, overnight patient was found unconscious on chair, cyanotic, code blue activated and patient was found to be in VT, s/p CPR, shock x2, and started on amiodarone drip. Allergies aspirin Allergy (Intermediate, Verified 11/07/12 16:55) Anaphylaxis bacitracin [From Neosporin ([id number]-[id number])] Allergy (Intermediate, Verified 11/07/12 16:55) aquino skin bacitracin zinc [From Neosporin ([id number])] Allergy (Intermediate, Verified 11/07/12 16:55) aquino skin neomycin sulfate [From Neosporin ([id number]-[id number]-[id number])] Allergy (Intermediate, Verified 11/07/12 16:55) auqino skin polymyxin B [From Neosporin (tni-ekq-askam)] Allergy (Intermediate, Verified 11/07/12 16:55) aquino skin NSAIDS Allergy (Severe, Uncoded 03/29/24 04:24) Anaphylaxis Neosporin ([id number]) Allergy (Uncoded 06/03/18 18:20) Itching Home medications list reviewed: Yes Home Medications: Fluticasone/Umeclidin/Vilanter [Trelegy Ellipta 100-62.5-25] 1 puff PO BEDTIME PRN 07/17/22 Benzonatate [Tessalon Perle*] 100 mg PO TID PRN #60 cap 01/07/24 Albuterol Inhaler [Ventolin Inhaler*] 2 puff IH Q6H PRN #1 inh 01/08/24 Venlafaxine HCl [Effexor XR] 150 mg PO DAILY #30 cap 01/08/24 Alprazolam [Xanax] 1 mg PO BID PRN #60 tab 03/15/24 Ipratropium Neb [Atrovent*] 0.5 mg NEB [id number] PRN 03/29/24 Venlafaxine HCl *Xr* [Effexor XR] 75 mg PO DAILY 03/29/24 Atorvastatin Calcium [Lipitor] 40 mg PO BEDTIME #30 tab 05/08/24 Metoprolol Tartrate [Lopressor*] 25 mg PO BID 6AM 6PM #60 tab 05/08/24 predniSONE [Deltasone*] 10 mg PO DAILY 06/25/24 - Past Medical/Surgical History Diabetic: No -: Asthma -: Depression -: Osteoporosis -: GERD with hiatal hernia -: Obesity -: Hypertension -: ADHD -: -: Tubal ligation -: cholecystectomy -: cataract surgery -: rt shoulder sx x2 -: sx on left knee Psychosocial/ Personal History: Patient is . She has 1 child. She is retired. - Family History Mother Medical History: Heart disease, Hypertension, Diabetes Father Medical History: Heart disease, Hypertension, Lung disease, Cancer, Other (see notes) Notes: asbestosis - Social History Smoking Status: Unknown if ever smoked Alcohol use: No CD- Drugs: No Caffeine use: Yes Place of Residence: Home Review of Systems is unable to be obtained (Patient is intuabted.) Physical Examination Temp Pulse Resp BP Pulse Ox 96.9 F 87 21 H 138/67 100 06/29/24 09:40 06/29/24 09:40 06/29/24 09:40 06/29/24 09:40 06/29/24 09:40 General: Other (patient is intubated and sedated.) HEENT: Atraumatic Neck: Supple Respiratory: Diminished, Crackles/rales Cardiovascular: No edema, Normal S1 S2 Gastrointestinal: Normal bowel sounds Musculoskeletal: No clubbing, No swelling - Problems (1) Cardiac arrest Current Visit: Yes Status: Acute Plan: Not sure for how long patient was out, as she was not placed on tele, s/p VT arrest with shock x2 and Amiodarone bolus and drip, event can be cardiac vs pulmonary. recommend getting an echo to compare to recent one that we have get troponin continue Amiodarone drip and Heparin drip would need to wait on patient neurological status before further cardiac intervention is decided, if patient neurological status is intact then patient will benefit from coronary angiogram once she is extubated. would start ASA 81 mg daily too. (2) Shock Current Visit: Yes Status: Acute Plan: with elevated white counts, can be secondary to aspiration vs underlying infection, recommend coverage with broad spectrum abx if BP is low and support vasopresssor support is needed then would recommend Levophed and vasopressin.
--- NOTE | 2024-06-29 11:56 | RAD REPORT ---
Exam:Abdomen 1 View (KUB) Clinical history: Nasogastric tube placement FINDINGS: Nasogastric tube lies 7 cm into the stomach.
--- NOTE | 2024-06-29 12:02 | P.PN ---
Subjective Date of Service: 06/29/24 Chief Complaint: Respiratory failure patient is on a ventilator Patient was found unresponsive apparently was in V. tach cardioverted intubated transferred to the ICU currently stable on a propofol drip on a ventilator very anxious agitated Review of Systems is unable to be obtained Physical Examination - Vital Signs Temperature: 96.9 F Blood Pressure: 138/67 Pulse: 87 Respirations: 21 Pulse Ox (%): 100 - Physical Exam General: Unresponsive Respiratory: Clear to auscultation bilaterally, Diminished Cardiovascular: No edema, Regular rate/rhythm, Normal S1 S2 Assessment And Plan - Current Problems (Diagnosis) (1) COPD exacerbation Current Visit: Yes Status: Acute Plan: Patient was admitted with COPD exacerbation and was stable currently on ventilator developed V. tach seen by cardiology on amiodarone has underlying severe anxiety and depression Lovenox for DVT prophylaxis renal insufficiency start on IV fluids start on IV Solu-Medrol rule out thromboembolism CT angio has been ordered for patient however has underlying renal insufficiency CT pulmonary angiogram has been ordered for tomorrow continue with heparin will avoid any macrolide ventilator settings reviewed patient is currently on assist-control nation satisfactory FiO2 of 30%
[2024-06-29] MEDS: HEPARIN/D5W 25,000 UNIT/500 ML BAG IV SCH (13:04)
--- NOTE | 2024-06-29 13:19 | ECHO ---
HEIGHT: 5 ft 1 in WEIGHT: 130 lb 0 oz DATE OF STUDY: 06/29/[address]: Jesus Santana MD 2-DIMENSIONAL: YES M.MODE: YES DOPPLER: YES COLOR FLOW: YES TDS: NO PORTABLE: YES DEFINITY: NO BUBBLE STUDY: NO DIAGNOSIS: VENTRICULAR TACHYCARDIA, STATUS POST CODE CARDIAC HISTORY: CATHERIZATION: SURGERY: PROSTHETIC VALVE: PACEMAKER: MEASUREMENTS (cm) DIASTOLIC (NORMALS) SYSTOLIC (NORMALS) IVSd 1.0 (0.6-1.2) LA Diam 3.4 (1.9-4.0) LVEF 55-60% LVIDd 4.3 (3.5-5.7) LVIDs 3.1 (2.0-3.5) %FS 27% LVPWd 1.2 (0.6-1.2) Ao Diam 2.4 (2.0-3.7) 2 DIMENSIONAL ASSESSMENT: RIGHT ATRIUM: NORMAL LEFT ATRIUM: NORMAL RIGHT VENTRICLE: NORMAL LEFT VENTRICLE: NORMAL TRICUSPID VALVE: MILD TRICUSPID REGURGITATION MITRAL VALVE: TRACE MITRAL REGURGITATION PULMONIC VALVE: NORMAL AORTIC VALVE: NORMAL PERICARDIAL EFFUSION: NONE AORTIC ROOT: NORMAL LEFT VENTRICULAR WALL MOTION: NORMAL. DOPPLER/COLOR FLOW: GRADE I DIASTOLIC DYSFUNCTION. COMMENTS: 1. NORMAL LEFT VENTRICULAR SYSTOLIC FUNCTION. LEFT VENTRICULAR EJECTION FRACTION 55-60%. NORMAL WALL MOTION. 2. GRADE I DIASTOLIC DYSFUNCTION. 3. NORMAL FILLING PRESSURE. RIGHT ATRIAL PRESSURE 0-5 mmHg. 4. MILD PULMONARY HYPERTENSION. RIGHT VENTRICULAR SYSTOLIC PRESSURE 30-35 mmHg. TECHNOLOGIST: CAMERON MAI
--- NOTE | 2024-06-29 20:58 | RAD REPORT ---
EXAMINATION: US Extrem Venous W Compress Joaquin CLINICAL INDICATION: [facility] MA[facility] RO DVT N TECHNIQUE: Complete bilateral duplex sonography of the BILATERAL lower extremity veins was performed. The examination included compression for vein patency, color Doppler imaging and flow augmentation in response to distal compression of the distal external iliac, common femoral, femoral, popliteal, t ibial, and great and small saphenous veins. COMPARISON: No prior exam. FINDINGS: Duplex sonography testing of the veins of the BILATERAL lower extremity was performed. Color flow kush ging shows all veins to be compressible with [id number] color filling. Pulsatile and phasic flow is present within all lower extremity deep and superficial veins examined. IMPRESSION: There is no deep vein or superficial vein thrombosis.
[2024-06-29] MEDS: MIDAZOLAM HCL 2 MG/2 ML INJ IV PRN (21:38)
[2024-06-29] MEDS ORDERED: NOREPINEPHRINE 4 MG in D5W 250 ML IV SCH (23:00)
[2024-06-30 05:20] LABS: Absolute Lymphocytes (CBC) 0.6 K/uL (0.7-4.9); Absolute Monocytes 0.6 K/uL (0.1-1.3); Absolute Neutrophil 11.8 K/uL (1.8-8.0); Hematocrit 27.6 % (36.0-45.0); Hemoglobin 8.7 g/dL (12.0-15.0); Lymphocytes % 4.4 % (15.3-44.8); MCH 29.2 pg (27.0-35.0); MCHC 31.5 g/dL (32.0-36.0); MCV 92.9 fL (80-100); MPV 8.5 fL (7.6-11.3); Monocytes % 4.7 % (3.3-12.3); Platelets 237 thou/uL (152-406); RBC Red Blood Cell Count 2.96 M/uL (3.86-4.86); Red Cell Distribution Width 15.7 % (12.1-15.2)
[2024-06-30 05:24] LABS: Neutrophils % 90.9 % (41.7-73.7)
[2024-06-30 05:42] LABS: Albumin 2.3 g/dL (3.4-5.0); Albumin/Globulin Ratio 0.9 (1.1-1.8); Bilirubin Total 0.4 mg/dL (0.2-1.0); Globulin 2.7 g/dL (2.3-3.5); Magnesium 2.3 mg/dL (1.6-2.4); Phosphorus 3.4 mg/dL (2.5-4.9)
--- NOTE | 2024-06-30 08:15 | RAD REPORT ---
EXAMINATION: ONE VIEW CHEST XR CLINICAL INDICATION: Female, 69 years old.,resp failure TECHNIQUE: Frontal chest projection is submitted. Examination is limited by patient positioning and t echnique. COMPARISON: 06/29/2024 FINDINGS: Endotracheal tube and enteric tube appear stable in position. Mild hyperlucency suggesting COPD. No n ew focal airspace opacities. No pneumothorax or sizable effusion. The heart is normal in size. Mediastinal contours are unremarkable. IMPRESSION: No acute intrathoracic abnormalities. Stable positioning of support tubes.
[2024-06-30] MEDS: NA CHLORIDE 0.9% 1,000 ML IV SCH (09:00)
[2024-06-30] MEDS: AMIODARONE HCL 900 MG in Dextrose 5%-Water 482 ML IV SCH (09:25)
--- NOTE | 2024-06-30 09:34 | P.PN ---
Date of Service: 06/30/24 Date of Service: 06/26/24 subjective Pt is s/p pulseless VT x 24h. No further arrhythmia. will attempt extubation today Review of Systems 10-point ROS is otherwise unremarkable Physical Examination - Vital Signs reviewed - Physical Exam General: sedated, moderate anxiety at intervals HEENT: Atraumatic, PERRLA, Mucous membr. moist/pink, cushingoid face Neck: Supple, 2+ carotid pulse no bruit, No LAD, Respiratory: clear, on AC Vent s/p pulseless VT yesterday. Repeat CXR clear Cardiovascular: Regular rate/rhythm, Normal S1 S2, No murmurs, rate in 58-60 range, ECHO yesterday with normal EF, mild pulmonary htn Gastrointestinal: Normal bowel sounds, nontender Musculoskeletal: No clubbing, No swelling, No tenderness Neurological: Normal tone, Sensation intact, intubated, sedated but easily arousable Assessment & Plan - Problems (Diagnosis) (1) Asthma exacerbation Onset Date: 06/06/18 Current Visit: No Status: Acute (2) Depression with anxiety Onset Date: 06/06/18 Current Visit: No Status: Acute (3) SOB (shortness of breath) Onset Date: 06/06/18 Current Visit: No Status: Acute (4) Tachycardia Current Visit: No Status: Acute (5) Heart failure with preserved ejection fraction Current Visit: Yes Status: Acute (6) VT arrest with ROSC Plan: 1. Continue with albuterol and Atrovent nebs 2. Continue with IV steroids - switch to po for discharge 3. Outpatient pulmonary follow-up if symptoms do not improve (Dr. Li following) 5. Room air O2 sats 6. Repeat chest x-ray in the morning 7. Gentle diuresing; medication for diastolic dysfunction 8. GI and DVT prophylaxis 06/27/24 pt remains tachycardic and hypertensive pt may benefit emotionally and physically from BB even though it can exacerbate asthma s/s consulted support services coordinator to try for assisted living vs SNF senior living placement 06/28/24 blood pressure and HR significantly better with Spironolactone and Metoprolol. Sleeping well. Will discharge home or to SNF likely in am 06/29/24 Other (Pt had pulseless VT overnight. She was apparently sitting in chair and slumped over. She was placed on her bed, defibrillated x 2, amiodarone was given and drip hung. She developed some hypotension and a central line was placed and dopamine initiated. She was transferred to ICU and placed on propof. weaned off dopamine in mid morning 06/30/24 Will attempt extubation today. IVF off. Repeat CXR clear. Pt's hemoglobin dropped 2 pts overnight. Renal insufficiency mild BEAU noted. Only 200ml output overnight. Echo showed normal EF with mild pulmonary htn. Pulmonary/cardio to assess for lasix need. Continues on heparin and amiodarone drips. no noted ectopy overnight. Will try extubation today and see about LHC per cardio who are following Discharge Plan: Home Plan to discharge in: tomorrow - Advance Directives Does patient have a Living Will: No Does patient have a Durable POA for Healthcare: No - Code Status/Comfort Care Code Status Assessed: Yes Code Status: Full Code Critical Care: No Time Spent Managing PTS Care (In Minutes): 35
--- NOTE | 2024-06-30 10:07 | P.PN ---
Subjective Date of Service: 06/30/24 Chief Complaint: Respiratory failure patient is on a ventilator Patient's condition is stable she is tolerating Precedex hemodynamically stable no further any arrhythmias Review of Systems is unable to be obtained Physical Examination - Vital Signs Temperature: 96.5 F Blood Pressure: 104/54 Pulse: 62 Respirations: 17 Pulse Ox (%): 100 - Physical Exam General: Unresponsive Respiratory: Clear to auscultation bilaterally, Diminished Cardiovascular: No edema, Regular rate/rhythm, Normal S1 S2 Assessment And Plan - Current Problems (Diagnosis) (1) COPD exacerbation Current Visit: Yes Status: Acute Plan: Patient's condition is stable no further arrhythmias on amiodarone continue with IV fluids renal function is worse continue with heparin for now troponins elevated may need cardiac cath count is decreased avoid macrolide patient has severe anxiety and depression resume all home medications once extubated patient is currently being weaned off the ventilator only on FiO2 30% chest x-ray clear
[2024-06-30] MEDS: HYDROMORPHONE HCL 1 MG/ML INJ IV ONE (12:30)
[2024-06-30] MEDS: ALBUTEROL 2.5 MG/3 ML NEB SOL ONE (12:36)
[2024-06-30] MEDS: FUROSEMIDE 40 MG/4 ML VIAL ONE (12:39)
[2024-06-30] MEDS: ALBUTEROL 2.5 MG/3 ML NEB SOL NEB ONE (12:42)
[2024-06-30] MEDS: FUROSEMIDE 40 MG/4 ML VIAL IV ONE (12:48)
[2024-06-30] MEDS ORDERED: SODIUM CHLORIDE 0.9% 10ML INJ IV PRN (13:39)
[2024-06-30] MEDS: Oxycodone HCl/Acetaminophen 5/325 MG TAB PO PRN (14:44)
--- NOTE | 2024-06-30 17:41 | P.PN ---
Date of Service: 06/30/24 called to ICU for patient in respiratory distress. Pt with tachypnea, increased work of breathing, audible wheezing, anxious and flushed. RN at bedside with pt sitting up with her oxygen in place. Urine output in holley still at 200. Albuterol neb x 1, dilaudid 1mg, and Lasix 20mg IV x 1 given and respiratory paged for BiPap placement. Pt calmed quite significantly. Work of breathing decreased and vitals remained stable. Will continue to monitor.
[2024-06-30] MEDS: METOPROLOL TAR 25 MG TAB PO SCH (18:00)
[2024-06-30] MEDS: ALPRAZOLAM 1 MG TABLET PO PRN (18:05)
[2024-06-30] MEDS: PANTOPRAZOLE 40 MG INJ IVP SCH (20:12)
--- NOTE | 2024-06-30 22:42 | PN ---
Date of Progress Note: 06/30/2024 Subjective: Seen by bedside. She is extubated, but she is requiring BiPAP. No further arrhythmia s [place] the amiodarone was started. The patient's ejection fraction on echo is normal. Cardiac enzymes are still negative. Unable to interview her because she was on BiPAP and unable to talk. Review of Systems: Positive for shortness of breath. She is lethargic. No nausea, vomiting, diarrhea, or fever. All o ther systems reviewed and they are negative. Physical Examination: Vital Signs: Reviewed. Head and Neck: Pupils are equal, reactive to light. Intact eye movements. No JVD. No cervical lym phadenopathy. Neck supple. Thyroid is not enlarged. Lungs: Decreased breathing sounds with wheezing bilaterally. No accessory muscle use or muscle retr action. Heart: Regular rate and rhythm. No extra sounds. Abdomen: Soft, nontender. Bowel sounds positive. No organomegaly. No masses or hernia. No rigidi ty or rebound. Extremities: No edema, clubbing, or cyanosis. Intact pulses. Skin: No rash. No nodules. Neuro: She is alert, but lethargic and no focal deficits. Lymph Nodes: No cervical or axillary lymphadenopathy. Investigation: Labs reviewed. Assessment And Recommendation: 1.Cardiac arrest due to ventricular tachycardia, status post 2 shocks. Continue amiodarone drip and once she is able to take medication by mouth, to switch to 200 mg by mouth twice a day. The patient needs ischemia evaluation once she is more stable. She will need coronary angiogram. Continue hepa rin and amiodarone drip for now. 2.Ventricular tachycardia, resultant in cardiac arrest. Plan as above. Coronary angiogram once she is medically stable. Continue IV heparin, baby aspirin, and amiodarone. 3.Elevated troponin, mildly ejection fraction is normal. She will need coronary angiogram when she is stable. 4.Shock, possible septic shock, and workup is in progress. At the present time, her blood pressure is much better. 5.Acute renal failure. Recommend gentle hydration and monitor kidney function. SR/MODL Voice ID: [id number] Report ID: [id number]
[2024-07-01 06:16] LABS: Absolute Lymphocytes (CBC) 0.5 K/uL (0.7-4.9); Absolute Monocytes 0.6 K/uL (0.1-1.3); Absolute Neutrophil 17.1 K/uL (1.8-8.0); Hematocrit 28.4 % (36.0-45.0); Hemoglobin 9.3 g/dL (12.0-15.0); Lymphocytes % 2.8 % (15.3-44.8); MCH 30.2 pg (27.0-35.0); MCHC 32.7 g/dL (32.0-36.0); MCV 92.1 fL (80-100); MPV 8.5 fL (7.6-11.3); Monocytes % 3.2 % (3.3-12.3); Platelets 253 thou/uL (152-406); RBC Red Blood Cell Count 3.09 M/uL (3.86-4.86); Red Cell Distribution Width 15.4 % (12.1-15.2)
[2024-07-01 06:35] LABS: Albumin 2.4 g/dL (3.4-5.0); Albumin/Globulin Ratio 0.7 (1.1-1.8); Bilirubin Total 0.7 mg/dL (0.2-1.0); Globulin 3.5 g/dL (2.3-3.5); Magnesium 2.5 mg/dL (1.6-2.4); Protein, Total 5.9 g/dL (6.4-8.2)
--- NOTE | 2024-07-01 06:49 | RAD REPORT ---
EXAM: Chest Single View HISTORY: resp failure COMPARISON: 06/30/2024 FINDINGS: LUNGS/PLEURA: Small cluster nodules in the right upper lobe are unchanged and chronic. No pleural eff usions or pneumothorax. No pulmonary edema. MEDIASTINUM: The mediastinal silhouette is within normal limits. CARDIAC: Cardiac. UPPER ABDOMEN: No significant abnormality. BONES: No acute fracture. LINES/TUBES/OTHER: Endotracheal tube and NG tube removed. IMPRESSION: No evidence of acute cardiopulmonary disease. Interval extubation and removal of the NG tube.
[2024-07-01] MEDS: VENLAFAXINE HCL XR 75 MG CAP PO SCH (07:15)
[2024-07-01 07:21] LABS: Phosphorus 4.1 mg/dL (2.5-4.9)
[2024-07-01] MEDS: AMIODARONE HCL 200 MG TAB PO SCH (07:58)
[2024-07-01 08:04] LABS: Blood Morphology Comment NOT SEEN (NOT SEEN); Platelet Estimate ADEQ; White Blood Cell Scan OK (OK)
[2024-07-01] MEDS ORDERED: VENLAFAXINE HCL XR 75 MG CAP PO SCH (09:00)
[2024-07-01] MEDS: FENTANYL CITR 100 MCG/2 ML IV PRN (10:43)
--- NOTE | 2024-07-01 13:04 | P.CNS ---
Date of Consult: 07/01/24 Reason for Consult: BEAU, oliguria Requesting Physician: RACHEL Humphries Chief Complaint: Respiratory failure patient is on a ventilator History of Present Illness: Patient is a 69-year-old female whose medical history is obtained mostly through chart review and info from nursing staff as pt is still currently lethargic in the setting of events over the past 48h. She has a reported past medical history of chronic asthma on prednisone, hypertension, anxiety, depression, history of pneumonia who apparently came in with fever and shortness of breath. In the ER, she was given nebs, steroids, and antibiotics. Patient was improving clinically per reports but on the was found with LOC, cyanotic, code blue initiated with CPR/shocks for V tach with ROSC and admitted to the ICU where she has since been extubated but remains on low dose precedex drip and heparin gtt for NSTEMI. She has developed BEAU and oliguria in this setting Allergies aspirin Allergy (Intermediate, Verified 11/07/12 16:55) Anaphylaxis bacitracin [From Neosporin (prm-vtb-[id number])] Allergy (Intermediate, Verified 11/07/12 16:55) aquino skin bacitracin zinc [From Neosporin (dxg-qth-yookn)] Allergy (Intermediate, Verified 11/07/12 16:55) aquino skin neomycin sulfate [From Neosporin (xrh-osb-[id number])] Allergy (Intermediate, Verified 11/07/12 16:55) aquino skin polymyxin B [From Neosporin (izq-llo-dxcts)] Allergy (Intermediate, Verified 11/07/12 16:55) aquino skin NSAIDS Allergy (Severe, Uncoded 03/29/24 04:24) Anaphylaxis Neosporin ([id number]-[id number]-dhlww) Allergy (Uncoded 06/03/18 18:20) Itching Home Medications: Fluticasone/Umeclidin/Vilanter [Trelegy Ellipta 100-62.5-25] 1 puff PO BEDTIME PRN 07/17/22 Benzonatate [Tessalon Perle*] 100 mg PO TID PRN #60 cap 01/07/24 Albuterol Inhaler [Ventolin Inhaler*] 2 puff IH Q6H PRN #1 inh 01/08/24 Venlafaxine HCl [Effexor XR] 150 mg PO DAILY #30 cap 01/08/24 Alprazolam [Xanax] 1 mg PO BID PRN #60 tab 03/15/24 Ipratropium Neb [Atrovent*] 0.5 mg NEB [id number] PRN 03/29/24 Venlafaxine HCl *Xr* [Effexor XR] 75 mg PO DAILY 03/29/24 Atorvastatin Calcium [Lipitor] 40 mg PO BEDTIME #30 tab 05/08/24 Metoprolol Tartrate [Lopressor*] 25 mg PO BID 6AM 6PM #60 tab 05/08/24 predniSONE [Deltasone*] 10 mg PO DAILY 06/25/24 - Past Medical/Surgical History Diabetic: No -: Asthma -: Depression -: Osteoporosis -: GERD with hiatal hernia -: Obesity -: Hypertension -: ADHD -: -: Tubal ligation -: cholecystectomy -: cataract surgery -: rt shoulder sx x2 -: sx on left knee Psychosocial/ Personal History: Patient is . She has 1 child. She is retired. - Family History Mother Medical History: Heart disease, Hypertension, Diabetes Father Medical History: Heart disease, Hypertension, Lung disease, Cancer, Other (see notes) Notes: asbestosis - Social History Smoking Status: Unknown if ever smoked Alcohol use: No CD- Drugs: No Caffeine use: Yes Place of Residence: Home Review of Systems is unable to be obtained Physical Examination Temp Pulse Resp BP Pulse Ox 98.0 F 59 11 L 103/66 100 07/01/24 12:00 07/01/24 12:00 07/01/24 12:22 07/01/24 12:00 07/01/24 12:22 General: Other (Appears chronically ill, lethargic) HEENT: Atraumatic, Normocephalic, Other (LFNC) Neck: Supple Respiratory: Normal air movement, Other (reduced BS at bases) Cardiovascular: Other (Distant heart sounds, non tachy) Gastrointestinal: Soft and benign, Non-distended, No tenderness Musculoskeletal: No swelling, No tenderness Integumentary: No rashes Neurological: Other (Lethargic, eyes closed, responds briefly, no tremors or myoclonus noted) Conclusions/Impression: A/P) 1. Stage II BEAU in the setting of hemodynamic factors with hypotension, V-tach, resp failure, other. Currently oliguric but non anuric, will have to cont to monitor renal function closely with evolving BEAU. Per Cardiology pt will also require C eval when stable and currently pt would be a higher risk for HECTOR so will need to coordinate plan closely 2. Monitor UOP via holley closely 3. CXR imaging does not show overt pulm edema despite elevated BNP possible diastolic dysfunction/mild pulm HTN on TTE so will cont gentle IVF 4. V-tach unspecified. Hypotension, other. Monitor closely on the low dose Precedex and pt on multiple other agents, would streamline med list. 5. Leukocytosis, unspecified -management per IM 6. Chronic resp insufficiency with asthma/other -management per IM/pulm
[2024-07-01] MEDS: NA CHLORIDE 0.9% 500 ML IV ONE (13:10)
--- NOTE | 2024-07-01 18:20 | P.PN ---
Date of Service: 07/01/24 subjective Patient seen in ICU on BiPAP, on Precedex, Review of Systems 10-point ROS unable to be obtained Physical Examination - Vital Signs reviewed - Physical Exam General: Lethargic, eyes open to verbal, on BiPAP HEENT: Atraumatic, dry mucous membr. Neck: Supple, 2+ carotid pulse no bruit, No LAD, Respiratory: Diminished, Expiratory wheezes, on BiPAP Cardiovascular: Regular rate/rhythm, Normal S1 S2, No murmurs Gastrointestinal: Normal bowel sounds, nontender Musculoskeletal: No clubbing, No swelling, No tenderness Neurological: Lethargic, awake and alert, responds to verbal Assessment & Plan - Problems (Diagnosis) septic shock likely secondary to cardiac arrest cardiac arrest secondary to ventricular tachycardia V. tach unspecified with hypotension Elevated BNP Acute kidney injury acute hypoxic respiratory failure asthma exacerbation Heart failure with preserved ejection fraction Depression with anxiety - Plan Plan: Transferred to ICU, was intubated postcode, extubated, currently on BiPAP, Precedex, Speech eval prior to s starting p.o. Telemetry, monitor monitor vital signs, blood pressure, will wean pressors Cardiology consulted for V. tach on telemetry On amiodarone drip, transition to p.o. amiodarone Plan for coronary angiogram once stable, on heparin, baby aspirin, amiodarone entle diuresing; medication for diastolic dysfunction Nephrology consulted for BEAU, hypotension Trend kidney function Monitor urinary output Pulmonary consult Continue with albuterol and Atrovent nebs Continue with IV steroids-wean Outpatient pulmonary follow-up if symptoms do not improve GI and DVT prophylaxis Discharge Plan: Pending hospital course - Advance Directives Does patient have a Living Will: No Does patient have a Durable POA for Healthcare: No - Code Status/Comfort Care Code Status Assessed: Yes Code Status: Full Code Critical Care: Yes Time Spent Managing PTS Care (In Minutes):45
[2024-07-02 05:38] LABS: Absolute Lymphocytes (CBC) 0.5 K/uL (0.7-4.9); Absolute Monocytes 0.5 K/uL (0.1-1.3); Absolute Neutrophil 17.1 K/uL (1.8-8.0); Basophils % 0.2 % (0-1.3); Eosinophils % 0.1 % (0-4.4); Hematocrit 28.6 % (36.0-45.0); Hemoglobin 9.4 g/dL (12.0-15.0); Lymphocytes % 2.9 % (15.3-44.8); MCH 30.2 pg (27.0-35.0); MCHC 32.7 g/dL (32.0-36.0); MCV 92.2 fL (80-100); MPV 8.6 fL (7.6-11.3); Monocytes % 2.6 % (3.3-12.3); Neutrophils % 94.2 % (41.7-73.7); Platelets 233 thou/uL (152-406); Red Cell Distribution Width 15.3 % (12.1-15.2)
[2024-07-02 06:09] LABS: Albumin 2.3 g/dL (3.4-5.0); Albumin/Globulin Ratio 0.7 (1.1-1.8); Anion Gap 10.8 mEq/L (5.0-15.0); Bilirubin Total 0.6 mg/dL (0.2-1.0); Globulin 3.5 g/dL (2.3-3.5); Protein, Total 5.8 g/dL (6.4-8.2)
[2024-07-02 06:11] LABS: Magnesium 2.8 mg/dL (1.6-2.4); Potassium 4.8 mEq/L (3.5-5.1)
[2024-07-02] MEDS: ENOXAPARIN 30 MG/0.3 ML SQ SCH (07:58)
--- NOTE | 2024-07-02 09:57 | RAD REPORT ---
EXAMINATION: US LOWER EXTREMITIES ARTERIAL DOPPLER BILATERAL CLINICAL INDICATION: Female, 69 years old. r/o arterial occlusion TECHNIQUE: Arterial duplex ultrasound was performed of the legs bilaterally with real-time and Dopple r evaluation. [id number]. COMPARISON: No prior exam. FINDINGS: Right leg Doppler: Grayscale: Mild plaque. Common femoral: Waveform: Triphasic Peak systolic velocity (cm/sec): 72 Superficial femoral: Waveform: Biphasic Peak systolic velocity (cm/sec): 58 Popliteal Waveform: Biphasic Peak systolic velocity (cm/sec): 54 Posterior Tibial: Waveform: Biphasic Peak systolic velocity (cm/sec): 49 Dorsalis pedis: Waveform: Biphasic Peak systolic velocity (cm/sec): 18 Left leg Doppler: Grayscale: Mild plaque. Common femoral: Waveform: Biphasic Peak systolic velocity (cm/sec): 62 Superficial femoral: Waveform: Biphasic Peak systolic velocity (cm/sec): 62 Popliteal Waveform: Biphasic Peak systolic velocity (cm/sec): 47 Posterior Tibial: Occluded Dorsalis pedis: Waveform: Biphasic Peak systolic velocity (cm/sec): 34 IMPRESSION: Left lower extremity: Occluded posterior tibial artery. The remaining vessels are patent with multiph asic waveforms. Right lower extremity: Multiphasic waveforms throughout. No flow-limiting stenoses.
--- NOTE | 2024-07-02 10:42 | P.PN ---
Subjective Date of Service: 07/02/24 Chief Complaint: Respiratory failure patient on BiPAP Patient is delirious on BiPAP complaining of chest discomfort Review of Systems is unable to be obtained Physical Examination - Vital Signs Temperature: 97.0 F Blood Pressure: 141/63 Pulse: 78 Respirations: 14 Pulse Ox (%): 100 - Physical Exam General: Delirious, Unresponsive Respiratory: Clear to auscultation bilaterally, Diminished Cardiovascular: No edema, Regular rate/rhythm, Other (Patient has cold extremities) Gastrointestinal: Normal bowel sounds, Soft and benign Assessment And Plan - Current Problems (Diagnosis) (1) COPD exacerbation Current Visit: Yes Status: Acute Plan: Patient admitted with COPD exacerbation developed cardiac arrest is currently requiring BiPAP very anxious well up worsening renal function I suspect is from the hypotension chest pain from CPR count is elevated add Rocephin chest x-ray is clear occasion list reviewed patient is on amiodarone and has declined refusing to eat meals is able to take her medications patient has peripheral vascular disease has occluded left leg tibial artery patient will probably require antiplatelet therapy
[2024-07-02] MEDS: CEFTRIAXONE 1,000 MG in NA CHLORIDE 0.9% 50 ML IVPB SCH (11:11)
[2024-07-02] MEDS: HYDROMORPHONE HCL 1 MG/ML INJ IV PRN (11:11)
--- NOTE | 2024-07-02 11:31 | P.PN ---
Date of Service: 07/02/24 subjective Pt continues on BiPap, continued anxiety, declines po except medications. C/o CP s/p compressions and defibrillation Review of Systems 10-point ROS is otherwise unremarkable Physical Examination - Vital Signs reviewed - Physical Exam General: sedated, moderate anxiety at intervals HEENT: Atraumatic, PERRLA, Mucous membr. moist/pink, cushingoid face Neck: Supple, 2+ carotid pulse no bruit, No LAD, Respiratory: clear, on Bipap. Repeat CXR without significant change Cardiovascular: Regular rate/rhythm, Normal S1 S2, No murmurs, rate in 58-60 range, ECHO - normal EF, mild pulmonary htn Gastrointestinal: Normal bowel sounds, nontender Musculoskeletal: No clubbing, No swelling, No tenderness - today (07/02/24 pt's lower extremities cold, mottled. Arterial studies bilat ordered. Neurological: Normal tone, Sensation intact, intubated, sedated but easily arousable Assessment & Plan - Problems (Diagnosis) (1) Asthma exacerbation Onset Date: 06/06/18 Current Visit: No Status: Acute (2) Depression with anxiety Onset Date: 06/06/18 Current Visit: No Status: Acute (3) SOB (shortness of breath) Onset Date: 06/06/18 Current Visit: No Status: Acute (4) Tachycardia Current Visit: No Status: Acute (5) Heart failure with preserved ejection fraction Current Visit: Yes Status: Acute (6) VT arrest with ROSC Plan: 1. Continue with albuterol and Atrovent nebs 2. Continue with IV steroids - switch to po for discharge 3. Outpatient pulmonary follow-up if symptoms do not improve (Dr. Li following) 5. Room air O2 sats - pt moved to ICU post intubation and now is on biPap 6. Repeat chest x-ray in the morning 7. Gentle diuresing; medication for diastolic dysfunction 8. GI and DVT prophylaxis 06/27/24 pt remains tachycardic and hypertensive pt may benefit emotionally and physically from BB even though it can exacerbate asthma s/s consulted media services specialist to try for assisted living vs SNF terminal operator placement 06/28/24 blood pressure and HR significantly better with Spironolactone and Metoprolol. Sleeping well. Will discharge home or to SNF likely in am 06/29/24 Other (Pt had pulseless VT overnight. She was apparently sitting in chair and slumped over. She was placed on her bed, defibrillated x 2, amiodarone was given and drip hung.) She developed some hypotension and a central line was placed and dopamine initiated. She was transferred to ICU and placed on propof. weaned off dopamine in mid morning 06/30/24 Will attempt extubation today. IVF off. Repeat CXR clear. Pt's hemoglobin dropped 2 pts overnight. Renal insufficiency mild BEAU noted. Only 200ml output overnight. Echo showed normal EF with mild pulmonary htn. Pulmonary/cardio to assess for lasix need. Continues on heparin and amiodarone drips. no noted ectopy overnight. Will try extubation today and see about LHC per cardio who are following 06/30/24 later in shift INTERNAL GRINDING MACHINE OPERATOR called with worsening of pt condition. Lasix 20mg IV x 1 given, albuterol neb given, we remained at bedside and attempted to soothe pt anxiety. Called RT to restart BiPap. Pt calmed and oxygenation stayed neutral. 07/02/24 pt has refused po sustenance. On eval this am, both lower ext cold, mottled, arterial studies performed. + occlusion of left posterial tibial artery. Pt allergic to aspirin. will start plavix 75mg po daily. Nephrology following for worsening BEAU probably from hypotension during arrest. Pt remains oliguric but is not anuric, will continue holley and strict I&O Discharge Plan: Home Plan to discharge in: greater than 3 days - Advance Directives Does patient have a Living Will: No Does patient have a Durable POA for Healthcare: No - Code Status/Comfort Care Code Status Assessed: Yes Code Status: Full Code Critical Care: No
[2024-07-02] MEDS: CLOPIDOGREL 75 MG TABLET ONE (12:21)
[2024-07-02] MEDS: CLOPIDOGREL 75 MG TABLET PO SCH (12:28)
--- NOTE | 2024-07-02 14:13 | P.PN ---
(S) Pt remains in the ICU, on BIPAP but no resp distress noted, BP holding, remains on low dose Precedex, remains oliguric, renal function tests worse (O) vitals reviewed in the EMR General: Other (Appears chronically ill, lethargic) HEENT: Atraumatic, Normocephalic, Other (BIPAP mask) Neck: Supple Respiratory: Normal air movement, non tahypnec, Other (reduced BS at bases) Cardiovascular: Other (Distant heart sounds, non tachy) Gastrointestinal: Soft and benign, Non-distended, No tenderness Musculoskeletal: No swelling, No tenderness Integumentary: Extremities/feet cold, discoloration of Rt distal foot Neurological: Other (Lethargic, but awake, eyes open, briefly tracks movement, does not converse, no tremors or myoclonus noted) Conclusions/Impression: A/P) 1. Stage II BEAU evolving in the setting of hemodynamic factors with hypotension, V-tach, resp failure, other likely with ischemic ATN developed. Remains oliguric but non anuric, will give a 0.5-1 mg/kg Lasix challenge to see if it augments UOP, if she has a poor response it will support likely development of a more severe Stage III ARF and possible need for CESSATION SYSTEMS OUTREACH SPECIALIST in the following days. Per Cardiology pt will also require angiogram eval (to eval for CAD/PAD) when stable and currently pt would be quite high risk for HECTOR perpetuating renal failure state so will need to coordinate closely 2. Monitor UOP via holley closely 3. CXR imaging did not show overt pulm edema despite elevated BNP possible diastolic dysfunction/mild pulm HTN on TTE but with positive fluid balance, oliguria and other, only briefly gave gentle IVF yesterday 4. V-tach unspecified. Hypotension, other, resolved. Monitor closely on the low dose Precedex and pt on multiple other agents, would streamline med list. 5. Leukocytosis, unspecified -management per IM 6. Chronic resp insufficiency with asthma/other -management per IM/pulm, thus far stable
[2024-07-02] MEDS: FUROSEMIDE 40 MG/4 ML VIAL IV ONE (14:51)
[2024-07-02 15:12] LABS: Arterial Blood Carboxyhemoglob 1.1 % (0-1.5); Blood Gas Oxyhemoglobin 96.1 % (94-97); Blood O2 Saturation 98.1 % (92-98.5)
[2024-07-02 15:13] LABS: Blood Gas THB 10.4 g/dl (12-18)
[2024-07-02] MEDS: guaiFENesin 100 MG/5 ML UCUP PO PRN (20:42)
[2024-07-03] MEDS: ACETAMINOPHEN 325 MG TABLET PO PRN (03:39)
[2024-07-03 06:10] LABS: Albumin 2.3 g/dL (3.4-5.0); Albumin/Globulin Ratio 0.7 (1.1-1.8); Anion Gap 11.1 mEq/L (5.0-15.0); Bilirubin Total 0.5 mg/dL (0.2-1.0); Globulin 3.2 g/dL (2.3-3.5); Potassium 4.1 mEq/L (3.5-5.1); Protein, Total 5.5 g/dL (6.4-8.2)
[2024-07-03 06:28] LABS: Absolute Lymphocytes (CBC) 0.2 K/uL (0.7-4.9); Absolute Monocytes 0.5 K/uL (0.1-1.3); Absolute Neutrophil 9.8 K/uL (1.8-8.0); Basophils % 0.1 % (0-1.3); Hematocrit 26.2 % (36.0-45.0); Hemoglobin 8.7 g/dL (12.0-15.0); Lymphocytes % 1.9 % (15.3-44.8); MCH 30.2 pg (27.0-35.0); MCHC 33.1 g/dL (32.0-36.0); MCV 91.2 fL (80-100); MPV 8.4 fL (7.6-11.3); Monocytes % 4.5 % (3.3-12.3); Neutrophils % 93.5 % (41.7-73.7); Nucleated Red Blood Cells % 0.1 % (0-0); Platelets 232 thou/uL (152-406); RBC Red Blood Cell Count 2.87 M/uL (3.86-4.86); Red Cell Distribution Width 15.7 % (12.1-15.2)
--- NOTE | 2024-07-03 08:14 | P.PN ---
Date of Service: 07/03/24 subjective continued anxiety, C/o CP s/p compressions and defibrillation with movement/palpation, on 3L via N/C this am Review of Systems 10-point ROS is otherwise unremarkable Physical Examination - Vital Signs reviewed - Physical Exam General: sedated, moderate anxiety at intervals HEENT: Atraumatic, PERRLA, Mucous membr. dry, cushingoid face Neck: Supple, 2+ carotid pulse no bruit, No LAD Respiratory: clear. O2 down to 3L via N/C Cardiovascular: Regular rate/rhythm, Normal S1 S2, No murmurs, rate 76, ECHO - normal EF, mild pulmonary htn Gastrointestinal: Normal bowel sounds, nontender Musculoskeletal: No clubbing, No swelling, No tenderness - 07/02/24 pt's lower extremities cold, mottled. Arterial studies bilat ordered. +posterior tibial artery occ on left, this am 07/03/24 bilateral lower extremities warm, normal coloration, peripheral pulses 2+ bilat pedally Neurological: Normal tone, Sensation intact, sedated but easily arousable Assessment & Plan - Problems (Diagnosis) (1) Asthma exacerbation Onset Date: 06/06/18 Current Visit: No Status: Acute (2) Depression with anxiety Onset Date: 06/06/18 Current Visit: No Status: Acute (3) SOB (shortness of breath) Onset Date: 06/06/18 Current Visit: No Status: Acute (4) Tachycardia Current Visit: No Status: Acute (5) Heart failure with preserved ejection fraction Current Visit: Yes Status: Acute (6) VT arrest with ROSC Plan: 1. Continue with albuterol and Atrovent nebs 2. Continue with IV steroids - switch to po for discharge 3. Outpatient pulmonary follow-up if symptoms do not improve (Dr. Li following) 5. Room air O2 sats - pt moved to ICU post intubation and now is on biPap 6. Repeat chest x-ray in the morning 7. Gentle diuresing; medication for diastolic dysfunction 8. GI and DVT prophylaxis 06/27/24 pt remains tachycardic and hypertensive pt may benefit emotionally and physically from BB even though it can exacerbate asthma s/s consulted financial services specialist to try for assisted living vs SNF intermediate placement 06/28/24 blood pressure and HR significantly better with Spironolactone and Metoprolol. Sleeping well. Will discharge home or to SNF likely in am 06/29/24 Other (Pt had pulseless VT overnight. She was apparently sitting in chair and slumped over. She was placed on her bed, defibrillated x 2, amiodarone was given and drip hung.) She developed some hypotension and a central line was placed and dopamine initiated. She was transferred to ICU and placed on propof. weaned off dopamine in mid morning 06/30/24 Will attempt extubation today. IVF off. Repeat CXR clear. Pt's hemoglobin dropped 2 pts overnight. Renal insufficiency mild BEAU noted. Only 200ml output overnight. Echo showed normal EF with mild pulmonary htn. Pulmonary/cardio to assess for lasix need. Continues on heparin and amiodarone drips. no noted ectopy overnight. Will try extubation today and see about LHC per cardio who are following 06/30/24 later in shift ANAESTHESIOLOGIST called with worsening of pt condition. Lasix 20mg IV x 1 given, albuterol neb given, we remained at bedside and attempted to soothe pt anxiety. Called RT to restart BiPap. Pt calmed and oxygenation stayed neutral. 07/02/24 pt has refused po sustenance. On eval this am, both lower ext cold, mottled, arterial studies performed. + occlusion of left posterial tibial artery. Pt allergic to aspirin. will start plavix 75mg po daily. Nephrology following for worsening BEAU probably from hypotension during arrest. Pt remains oliguric but is not anuric, will continue holley and strict I&O 07/03/24 more alert today, off biPap, on 3L via NC, extremities warm x 4, remains oliguric, creatinine to 3.14 this am, Mag 3.0, added phos, continue strict I&O, appreciate Nephro input. Will place lidoderm to anterior chest wall. Pt is off narcotic pain medications. continued anemia 8.7. Continue plavix and monitoring in ICU Discharge Plan: Home Plan to discharge in: greater than 3 days - Advance Directives Does patient have a Living Will: No Does patient have a Durable POA for Healthcare: No - Code Status/Comfort Care Code Status Assessed: Yes Code Status: Full Code Critical Care: No <Laura Mata - Last Filed: 07/03/24 08:06> Patient was seen and examined. Events of the last 24 hours have been noted. Spoke with with BRENNAN regarding patient's clinical picture after evaluating and examining the patient independently. I performed a substantial part of the MDM during this patient's care today. I personally made or approved the documented management plan and acknowledge its risk of complications. I agree with the findings and documentation provided in the BRENNAN's notes. Will also recommend weaning off of Precedex. Patient needs long-acting anxiolyt ics. She will need placement and will get physical therapy evaluation once patient is feeling up getting out of bed. <Vale Cervantes - Last Filed: 07/06/24 15:50>
[2024-07-03 08:19] LABS: Blood Morphology Comment NOT SEEN (NOT SEEN); Platelet Estimate ADEQ; White Blood Cell Scan OK (OK)
[2024-07-03] MEDS: VENLAFAXINE HCL XR 75 MG CAP PO SCH (08:44)
[2024-07-03] MEDS: LIDOCAINE 4% PATCH TOP SCH (08:44)
[2024-07-03] MEDS: predniSONE 20 MG TAB PO SCH (08:44)
--- NOTE | 2024-07-03 12:06 | P.PN ---
Subjective Date of Service: 07/03/24 Chief Complaint: COPD exacerbation Patient is doing much better today she is more alert responsive cooperative still has some chest congestion Review of Systems General: Weakness Respiratory: Cough, Shortness of Breath Physical Examination - Vital Signs Temperature: 98.6 F Blood Pressure: 120/59 Pulse: 82 Respirations: 18 Pulse Ox (%): 100 - Physical Exam General: Alert, Oriented x3 Respiratory: Expiratory wheezes Cardiovascular: No edema, Regular rate/rhythm, Normal S1 S2 Musculoskeletal: Other (Patient's feet has got very faint pulses under cold) Assessment And Plan - Current Problems (Diagnosis) (1) COPD exacerbation Current Visit: Yes Status: Acute Plan: Patient admitted with COPD exacerbation is doing much better today is not delirious is on present Precedex drip resume Effexor white count is declining start back on Tessalon Perles changed to p.o. prednisone oxygenation satisfactory to be transferred to the floor
[2024-07-03] MEDS: BENZONATATE 100 MG CAP PO PRN (15:15)
--- NOTE | 2024-07-03 16:29 | P.PN ---
Subjective Date of Service: 07/03/24 Chief Complaint: COPD exacerbation Subjective: No new changes, No C/O voiced, Tolerating diet, Ambulating, Improving Review of Systems 10-point ROS is otherwise unremarkable Physical Examination - Vital Signs Temperature: 97.2 F Blood Pressure: 131/77 Pulse: 88 Respirations: 18 Pulse Ox (%): 100 - Physical Exam General: Alert, In no apparent distress HEENT: Atraumatic, PERRLA, EOMI Neck: Supple, JVD not distended Respiratory: Clear to auscultation bilaterally, Normal air movement Cardiovascular: Regular rate/rhythm, Normal S1 S2 Gastrointestinal: Normal bowel sounds, No tenderness Musculoskeletal: No tenderness Integumentary: No rashes Neurological: Normal speech, Normal tone, Normal affect Lymphatics: No axilla or inguinal lymphadenopathy - Studies Medications List Reviewed: Yes Assessment And Plan - Current Problems (Diagnosis) (1) Cardiac arrest Current Visit: Yes Status: Acute Plan: Patient is extubated and feel better, cardiac enzymes were not that elevated, repeated echo after arrest was normal typically patient will need coronary angiogram but she is having worsening of her kidney function discussed in details with patient and family and agree to wait until more clarification of her kidney function condition continue amiodarone 200 mg po BID (2) Shock Current Visit: Yes Status: Acute Plan: with elevated white counts, can be secondary to aspiration vs underlying infection, recommend coverage with broad spectrum abx if BP is low and support vasopresssor support is needed then would recommend Levophed and vasopressin.
[2024-07-03] MEDS: ENSURE ENLIVE 237 ML CAN PO SCH (20:41)
[2024-07-03] MEDS: ATORVASTATIN 40 MG TAB PO SCH (20:41)
--- NOTE | 2024-07-03 21:38 | P.PN ---
Date of Service: 07/03/24 Vital Signs Temp Pulse Resp BP Pulse Ox 97.2 F 73 13 151/66 H 100 07/03/24 16:29 07/03/24 21:00 07/03/24 21:00 07/03/24 21:00 07/03/24 21:00 Medications Acetaminophen (Acetaminophen 500 Mg Tab) 500 mg PO Q4HP PRN PRN Reason: SHORTNESS OF BREATH Last Admin: 07/03/24 20:48 Dose: 500 mg Acetaminophen (Acetaminophen 325 Mg Tablet) 650 mg PO Q4H PRN PRN Reason: Pain scale 2-4 (Mild) Last Admin: 07/03/24 03:39 Dose: 650 mg Hydrocodone Bitart/Acetaminophen (Hydrocodone/Apap 5/325 Mg Tab) 1 tab PO Q4H PRN PRN Reason: Pain scale 5-7 (Moderate) Alprazolam (Alprazolam 1 Mg Tablet) 1 mg PO BID [facility] Last Admin: 07/03/24 20:41 Dose: 1 mg Alprazolam (Alprazolam 1 Mg Tablet) 1 mg PO BID PRN PRN Reason: ANXIETY Last Admin: 07/03/24 15:15 Dose: 1 mg Amiodarone HCl (Amiodarone Hcl 200 Mg Tab) 200 mg PO BID [facility] Last Admin: 07/03/24 20:41 Dose: 200 mg Atorvastatin Calcium (Atorvastatin 40 Mg Tab) 40 mg PO BEDTIME [facility] Last Admin: 07/03/24 20:41 Dose: 40 mg Benzonatate (Benzonatate 100 Mg Cap) 200 mg PO TID PRN PRN Reason: COUGH Last Admin: 07/03/24 15:15 Dose: 200 mg Clopidogrel Bisulfate (Clopidogrel 75 Mg Tablet) 75 mg PO DAILY [facility] Last Admin: 07/03/24 08:45 Dose: 75 mg Enoxaparin Sodium (Enoxaparin 30 Mg/0.3 Ml) 30 mg SQ DAILY [facility] Last Admin: 07/03/24 08:45 Dose: 30 mg Guaifenesin (Guaifenesin 100 Mg/5 Ml Ucup) 100 mg PO QID PRN PRN Reason: COUGH Last Admin: 07/03/24 15:15 Dose: 100 mg Hydralazine HCl (Hydralazine Hcl 20 Mg/Ml Vial) 10 mg IV Q6HP PRN PRN Reason: Goal to achieve SBP in comment Last Admin: 06/28/24 20:12 Dose: 10 mg Sodium Chloride (Sodium Chloride) 250 mls @ 999 mls/hr IV Q15M PRN PRN Reason: HYPOTENSION Dexmedetomidine HCl 1,000 mcg/ (Sodium Chloride) 500 mls @ 5.897 mls/hr IV TITR [facility]; Protocol Last Titration: 07/03/24 12:00 Dose: 0 mcg/kg/hr, 0 mls/hr Ceftriaxone Sodium 1,000 mg/ (Sodium Chloride) 50 mls @ 100 mls/hr IVPB DAILY [facility]; Protocol Last Admin: 07/03/24 08:45 Dose: 50 mls Ipratropium [place] (Ipratropium Brom 0.5mg/2.5ml) 0.5 mg NEB [id number] PRN PRN Reason: SHORTNESS OF BREATH Last Admin: 07/03/24 16:50 Dose: 0.5 mg Ipratropium [place] (Ipratropium Brom 0.5mg/2.5ml) 0.5 mg NEB [id number] [facility] Last Admin: 07/03/24 20:25 Dose: 0.5 mg Levalbuterol HCl (Levalbuterol 1.25 Mg/3 Ml Neb) 1.25 mg NEB [id number] [facility] Last Admin: 07/03/24 20:26 Dose: 1.25 mg Lidocaine (Lidocaine 4% Patch) 1 patch TOP DAILY [facility] Last Admin: 07/03/24 08:44 Dose: 1 patch Metoprolol Tartrate (Metoprolol Tar 25 Mg Tab) 25 mg PO BID 6AM 6PM [facility] Last Admin: 07/03/24 16:48 Dose: 25 mg Morphine Sulfate (Morphine 2 Mg/Ml Syr) 2 mg IV Q4H PRN PRN Reason: Pain scale 8-10 (Severe) Nutritional Formula (Ensure Enlive 237 Ml Can) 237 ml PO BID [facility] Last Admin: 07/03/24 20:41 Dose: Not Given Ondansetron HCl (Ondansetron 4 Mg/2 Ml Vial) 4 mg IV Q4H PRN PRN Reason: NAUSEA / VOMITING Last Admin: 06/27/24 21:13 Dose: 4 mg Prednisone (Prednisone 20 Mg Tab) 20 mg PO BID [facility] Last Admin: 07/03/24 20:41 Dose: 20 mg Sodium Chloride (Sodium Chloride 0.9% 10ml Inj) 10 ml IV UD PRN PRN Reason: Diluant Venlafaxine HCl (Venlafaxine Hcl Xr 75 Mg Cap) 75 mg PO DAILY [facility] Last Admin: 07/03/24 08:44 Dose: 75 mg Microbiology Results 06/25/24 13:58 Blood - Blood Aerobic Blood Culture - Final No growth in 5 days. 06/25/24 13:58 Blood - Blood Anaerobic Blood Culture - Final No growth in 5 days. 06/25/24 13:58 Blood - Blood Aerobic Blood Culture - Final No growth in 5 days. 06/25/24 13:58 Blood - Blood Anaerobic Blood Culture - Final No growth in 5 days. 06/25/24 13:58 Nasopharnyx Influenza Type A Antigen Screen - Final 06/25/24 13:58 Nasopharnyx Influenza Type B Antigen Screen - Final Assessment/ Plan: Nephrology No dyspnea No chest pain Back pain with muscle spasm Intermittent chest pain No acute events overnight Vitals, medications, blood work and imaging reviewed in the chart General: NAD HEENT: Atraumatic, Normocephalic Neck: Supple Respiratory: Normal air movement, non tahypnec, Other (reduced BS at bases) Cardiovascular: Other (Distant heart sounds) Gastrointestinal: Soft and benign, Non-distended, No tenderness Musculoskeletal: No swelling, No tenderness Integumentary: Extremities/feet cold Neurological: Awake and Alert Ny light LEFT VENTRICULAR WALL MOTION: NORMAL. DOPPLER/COLOR FLOW: GRADE I DIASTOLIC DYSFUNCTION. COMMENTS: 1. NORMAL LEFT VENTRICULAR SYSTOLIC FUNCTION. LEFT VENTRICULAR EJECTION FRACTION 55-60%. NORMAL WALL MOTION. 2. GRADE I DIASTOLIC DYSFUNCTION. 3. NORMAL FILLING PRESSURE. RIGHT ATRIAL PRESSURE 0-5 mmHg. 4. MILD PULMONARY HYPERTENSION. RIGHT VENTRICULAR SYSTOLIC PRESSURE 30-35 mmHg. EXAMINATION: US LOWER EXTREMITIES ARTERIAL DOPPLER BILATERAL CLINICAL INDICATION: Female, 69 years old. r/o arterial occlusion TECHNIQUE: Arterial duplex ultrasound was performed of the legs bilaterally with real-time and Doppler evaluation. [id number]. COMPARISON: No prior exam. FINDINGS: Right leg Doppler: Grayscale: Mild plaque. Common femoral: Waveform: Triphasic Peak systolic velocity (cm/sec): 72 Superficial femoral: Waveform: Biphasic Peak systolic velocity (cm/sec): 58 Popliteal Waveform: Biphasic Peak systolic velocity (cm/sec): 54 Posterior Tibial: Waveform: Biphasic Peak systolic velocity (cm/sec): 49 Dorsalis pedis: Waveform: Biphasic Peak systolic velocity (cm/sec): 18 Left leg Doppler: Grayscale: Mild plaque. Common femoral: Waveform: Biphasic Peak systolic velocity (cm/sec): 62 Superficial femoral: Waveform: Biphasic Peak systolic velocity (cm/sec): 62 Popliteal Waveform: Biphasic Peak systolic velocity (cm/sec): 47 Posterior Tibial: Occluded Dorsalis pedis: Waveform: Biphasic Peak systolic velocity (cm/sec): 34 IMPRESSION: Left lower extremity: Occluded posterior tibial artery. The remaining vessels are patent with multiphasic waveforms. EXAM: Chest Single View HISTORY: resp failure COMPARISON: 06/30/2024 FINDINGS: LUNGS/PLEURA: Small cluster nodules in the right upper lobe are unchanged and chronic. No pleural effusions or pneumothorax. No pulmonary edema. MEDIASTINUM: The mediastinal silhouette is within normal limits. CARDIAC: Cardiac. UPPER ABDOMEN: No significant abnormality. BONES: No acute fracture. LINES/TUBES/OTHER: Endotracheal tube and NG tube removed. IMPRESSION: No evidence of acute cardiopulmonary disease. Interval extubation and removal of the NG tube. Conclusions/Impression: Stage III BEAU likely due to ischemic ATN Non-oliguric CKD II with Proteinuria -No NSAIDs HTN with CKD/ CHF -Continue Metoprolol Acute respiratory failure sp extubation 24 Cardiac Arrest/ Shock -Bipap prn -Follow up with cardiology -Continue Amiodarone Diastolic CHF, chronic Mild Pulmonary HTN -Lasix prn Hypoalbuminenia -Continue Ensure Anemia in chronic illness -Monitor H&H Hospitalist and cardiology notes reviewed Patient care 40min
[2024-07-04 06:09] LABS: Absolute Lymphocytes (CBC) 0.5 K/uL (0.7-4.9); Absolute Monocytes 0.9 K/uL (0.1-1.3); Absolute Neutrophil 11.8 K/uL (1.8-8.0); Basophils % 0.2 % (0-1.3); Hematocrit 28.8 % (36.0-45.0); Hemoglobin 9.4 g/dL (12.0-15.0); Lymphocytes % 3.8 % (15.3-44.8); MCH 29.9 pg (27.0-35.0); MCHC 32.7 g/dL (32.0-36.0); MCV 91.3 fL (80-100); MPV 8.5 fL (7.6-11.3); Monocytes % 6.5 % (3.3-12.3); Neutrophils % 89.5 % (41.7-73.7); Nucleated Red Blood Cells % 0.1 % (0-0); Platelets 246 thou/uL (152-406); RBC Red Blood Cell Count 3.15 M/uL (3.86-4.86); Red Cell Distribution Width 15.7 % (12.1-15.2)
[2024-07-04 06:16] LABS: Albumin 2.2 g/dL (3.4-5.0); Albumin/Globulin Ratio 0.7 (1.1-1.8); Anion Gap 8.4 mEq/L (5.0-15.0); Bilirubin Total 0.6 mg/dL (0.2-1.0); Globulin 3.1 g/dL (2.3-3.5); Magnesium 3.2 mg/dL (1.6-2.4); Phosphorus 3.3 mg/dL (2.5-4.9); Potassium 4.4 mEq/L (3.5-5.1); Protein, Total 5.3 g/dL (6.4-8.2)
--- NOTE | 2024-07-04 09:45 | P.PN ---
Subjective Date of Service: 07/04/24 Chief Complaint: COPD exacerbation Subjective: No new changes, No C/O voiced, Tolerating diet, Ambulating, Improving Review of Systems 10-point ROS is otherwise unremarkable Physical Examination - Vital Signs Temperature: 96.8 F Blood Pressure: 116/77 Pulse: 66 Respirations: 16 Pulse Ox (%): 100 - Physical Exam General: Alert, In no apparent distress HEENT: Atraumatic, PERRLA, EOMI Neck: Supple, JVD not distended Respiratory: Clear to auscultation bilaterally, Normal air movement Cardiovascular: Regular rate/rhythm, Normal S1 S2 Gastrointestinal: Normal bowel sounds, No tenderness Musculoskeletal: No tenderness Integumentary: No rashes Neurological: Normal speech, Normal tone, Normal affect Lymphatics: No axilla or inguinal lymphadenopathy - Studies Medications List Reviewed: Yes Assessment And Plan - Current Problems (Diagnosis) (1) Cardiac arrest Current Visit: Yes Status: Acute Plan: Patient is extubated and feel better, cardiac enzymes were not that elevated, repeated echo after arrest was normal typically patient will need coronary angiogram but she is having worsening of her kidney function discussed in details with patient and family and agree to wait until more clarification of her kidney function condition continue amiodarone 200 mg po BID (2) Shock Current Visit: Yes Status: Acute Plan: with elevated white counts, can be secondary to aspiration vs underlying infection, recommend coverage with broad spectrum abx if BP is low and support vasopresssor support is needed then would recommend Levophed and vasopressin.
--- NOTE | 2024-07-04 12:06 | P.PN ---
Subjective Date of Service: 07/04/24 Chief Complaint: COPD exacerbation Patient's condition is stable currently she had some delirium last night is more alert responsive cooperative complaining of cough congestion and chest pain Review of Systems General: Weakness Respiratory: Shortness of Breath Physical Examination - Vital Signs Temperature: 96.8 F Blood Pressure: 160/62 Pulse: 71 Respirations: 17 Pulse Ox (%): 95 - Physical Exam General: Alert, Oriented x3, Mild distress Respiratory: Clear to auscultation bilaterally, Diminished Cardiovascular: No edema, Regular rate/rhythm - Studies Medications List Reviewed: Yes Assessment And Plan - Current Problems (Diagnosis) (1) COPD exacerbation Current Visit: Yes Status: Acute Plan: Patient's condition is stable no further arrhythmias meaning of chest pain cough congestion from the CPR will add some baseline Percocet continue with present treatment steroids bronchodilators function is improving labs reviewed mild anemia
[2024-07-04] MEDS: BUSPIRONE HCL 5 MG TABLET PO SCH (19:52)
--- NOTE | 2024-07-04 20:37 | P.PN ---
Date of Service: 07/04/24 Vital Signs Temp Pulse Resp BP Pulse Ox 97.1 F 71 14 144/98 H 100 07/04/24 19:00 07/04/24 19:00 07/04/24 19:00 07/04/24 19:00 07/04/24 19:00 Medications Acetaminophen (Acetaminophen 500 Mg Tab) 500 mg PO Q4HP PRN PRN Reason: SHORTNESS OF BREATH Last Admin: 07/03/24 20:48 Dose: 500 mg Acetaminophen (Acetaminophen 325 Mg Tablet) 650 mg PO Q4H PRN PRN Reason: Pain scale 2-4 (Mild) Last Admin: 07/03/24 03:39 Dose: 650 mg Hydrocodone Bitart/Acetaminophen (Hydrocodone/Apap 5/325 Mg Tab) 1 tab PO Q4H PRN PRN Reason: Pain scale 5-7 (Moderate) Alprazolam (Alprazolam 1 Mg Tablet) 1 mg PO BID [facility] Last Admin: 07/04/24 19:53 Dose: Not Given Alprazolam (Alprazolam 1 Mg Tablet) 1 mg PO BID PRN PRN Reason: ANXIETY Last Admin: 07/03/24 15:15 Dose: 1 mg Amiodarone HCl (Amiodarone Hcl 200 Mg Tab) 200 mg PO BID [facility] Last Admin: 07/04/24 19:52 Dose: 200 mg Atorvastatin Calcium (Atorvastatin 40 Mg Tab) 40 mg PO BEDTIME [facility] Last Admin: 07/04/24 19:52 Dose: 40 mg Benzonatate (Benzonatate 100 Mg Cap) 200 mg PO TID PRN PRN Reason: COUGH Last Admin: 07/03/24 15:15 Dose: 200 mg Buspirone HCl (Buspirone Hcl 5 Mg Tablet) 5 mg PO BEDTIME [facility] Last Admin: 07/04/24 19:52 Dose: 5 mg Clopidogrel Bisulfate (Clopidogrel 75 Mg Tablet) 75 mg PO DAILY [facility] Last Admin: 07/04/24 07:42 Dose: 75 mg Enoxaparin Sodium (Enoxaparin 30 Mg/0.3 Ml) 30 mg SQ DAILY [facility] Last Admin: 07/04/24 07:41 Dose: 30 mg Guaifenesin (Guaifenesin 100 Mg/5 Ml Ucup) 100 mg PO QID PRN PRN Reason: COUGH Last Admin: 07/03/24 15:15 Dose: 100 mg Hydralazine HCl (Hydralazine Hcl 20 Mg/Ml Vial) 10 mg IV Q6HP PRN PRN Reason: Goal to achieve SBP in comment Last Admin: 06/28/24 20:12 Dose: 10 mg Sodium Chloride (Sodium Chloride) 250 mls @ 999 mls/hr IV Q15M PRN PRN Reason: HYPOTENSION Dexmedetomidine HCl 1,000 mcg/ (Sodium Chloride) 500 mls @ 5.897 mls/hr IV TITR [facility]; Protocol Last Titration: 07/04/24 16:25 Dose: 0.1 mcg/kg/hr, 2.9 mls/hr Ceftriaxone Sodium 1,000 mg/ (Sodium Chloride) 50 mls @ 100 mls/hr IVPB DAILY [facility]; Protocol Last Admin: 07/04/24 07:41 Dose: 50 mls Ipratropium [place] (Ipratropium Brom 0.5mg/2.5ml) 0.5 mg NEB [id number] PRN PRN Reason: SHORTNESS OF BREATH Last Admin: 07/03/24 16:50 Dose: 0.5 mg Ipratropium [place] (Ipratropium Brom 0.5mg/2.5ml) 0.5 mg NEB [id number] [facility] Last Admin: 07/04/24 13:40 Dose: 0.5 mg Levalbuterol HCl (Levalbuterol 1.25 Mg/3 Ml Neb) 1.25 mg NEB [id number] [facility] Last Admin: 07/04/24 13:40 Dose: 1.25 mg Lidocaine (Lidocaine 4% Patch) 1 patch TOP DAILY [facility] Last Admin: 07/04/24 07:41 Dose: 1 patch Metoprolol Tartrate (Metoprolol Tar 25 Mg Tab) 25 mg PO BID 6AM 6PM [facility] Last Admin: 07/04/24 17:58 Dose: 25 mg Morphine Sulfate (Morphine 2 Mg/Ml Syr) 2 mg IV Q4H PRN PRN Reason: BREAKTHROUGH PAIN Nutritional Formula (Ensure Enlive 237 Ml Can) 237 ml PO BID [facility] Last Admin: 07/04/24 19:52 Dose: 237 ml Ondansetron HCl (Ondansetron 4 Mg/2 Ml Vial) 4 mg IV Q4H PRN PRN Reason: NAUSEA / VOMITING Last Admin: 06/27/24 21:13 Dose: 4 mg Oxycodone/Acetaminophen (Oxycodone Hcl/Acetaminophen 5/325 Mg Tab) 1 tab PO Q4H PRN PRN Reason: Pain scale 8-10 (Severe) Prednisone (Prednisone 20 Mg Tab) 20 mg PO BID [facility] Last Admin: 07/04/24 19:52 Dose: 20 mg Sodium Chloride (Sodium Chloride 0.9% 10ml Inj) 10 ml IV UD PRN PRN Reason: Diluant Venlafaxine HCl (Venlafaxine Hcl Xr 75 Mg Cap) 75 mg PO DAILY [facility] Last Admin: 07/04/24 07:42 Dose: 75 mg Microbiology Results 06/25/24 13:58 Blood - Blood Aerobic Blood Culture - Final No growth in 5 days. 06/25/24 13:58 Blood - Blood Anaerobic Blood Culture - Final No growth in 5 days. 06/25/24 13:58 Blood - Blood Aerobic Blood Culture - Final No growth in 5 days. 06/25/24 13:58 Blood - Blood Anaerobic Blood Culture - Final No growth in 5 days. 06/25/24 13:58 Nasopharnyx Influenza Type A Antigen Screen - Final 06/25/24 13:58 Nasopharnyx Influenza Type B Antigen Screen - Final Assessment/ Plan: Nephrology No dyspnea No chest pain Persistent Back Pain Intermittent chest pain improved No acute events overnight Vitals, medications, blood work and imaging reviewed in the chart General: NAD HEENT: Atraumatic, Normocephalic Neck: Supple Respiratory: Normal air movement, non tahypnec, Other (reduced BS at bases) Cardiovascular: Other (Distant heart sounds) Gastrointestinal: Soft and benign, Non-distended, No tenderness Musculoskeletal: No swelling, No tenderness Integumentary: Extremities/feet cold Neurological: Awake and Alert [place] light LEFT VENTRICULAR WALL MOTION: NORMAL. DOPPLER/COLOR FLOW: GRADE I DIASTOLIC DYSFUNCTION. 1. NORMAL LEFT VENTRICULAR SYSTOLIC FUNCTION. LEFT VENTRICULAR EJECTION FRACTION 55-60%. NORMAL WALL MOTION. 2. GRADE I DIASTOLIC DYSFUNCTION. 3. NORMAL FILLING PRESSURE. RIGHT ATRIAL PRESSURE 0-5 mmHg. 4. MILD PULMONARY HYPERTENSION. RIGHT VENTRICULAR SYSTOLIC PRESSURE 30-35 mmHg. EXAMINATION: US LOWER EXTREMITIES ARTERIAL DOPPLER BILATERAL CLINICAL INDICATION: Female, 69 years old. r/o arterial occlusion TECHNIQUE: Arterial duplex ultrasound was performed of the legs bilaterally with real-time and Doppler evaluation. [id number]. COMPARISON: No prior exam. FINDINGS: Right leg Doppler: Grayscale: Mild plaque. Common femoral: Waveform: Triphasic Peak systolic velocity (cm/sec): 72 Superficial femoral: Waveform: Biphasic Peak systolic velocity (cm/sec): 58 Popliteal Waveform: Biphasic Peak systolic velocity (cm/sec): 54 Posterior Tibial: Waveform: Biphasic Peak systolic velocity (cm/sec): 49 Dorsalis pedis: Waveform: Biphasic Peak systolic velocity (cm/sec): 18 Left leg Doppler: Grayscale: Mild plaque. Common femoral: Waveform: Biphasic Peak systolic velocity (cm/sec): 62 Superficial femoral: Waveform: Biphasic Peak systolic velocity (cm/sec): 62 Popliteal Waveform: Biphasic Peak systolic velocity (cm/sec): 47 Posterior Tibial: Occluded Dorsalis pedis: Waveform: Biphasic Peak systolic velocity (cm/sec): 34 IMPRESSION: Left lower extremity: Occluded posterior tibial artery. The remaining vessels are patent with multiphasic waveforms. EXAM: Chest Single View HISTORY: resp failure COMPARISON: 06/30/2024 FINDINGS: LUNGS/PLEURA: Small cluster nodules in the right upper lobe are unchanged and chronic. No pleural effusions or pneumothorax. No pulmonary edema. MEDIASTINUM: The mediastinal silhouette is within normal limits. CARDIAC: Cardiac. UPPER ABDOMEN: No significant abnormality. BONES: No acute fracture. LINES/TUBES/OTHER: Endotracheal tube and NG tube removed. IMPRESSION: No evidence of acute cardiopulmonary disease. Interval extubation and removal of the NG tube. Conclusions/Impression: Stage III BEAU likely due to ischemic ATN Non-oliguric CKD II with Proteinuria -No NSAIDs HTN with CKD/ CHF -Continue Metoprolol Acute respiratory failure sp extubation 07-01-24 Cardiac Arrest/ Shock -Bipap prn -Follow up with cardiology -Continue Amiodarone Diastolic CHF, chronic Mild Pulmonary HTN -Lasix prn Hypoalbuminenia -Continue Ensure Anemia in chronic illness -Monitor H&H Hospitalist and cardiology notes reviewed
[2024-07-05 06:17] LABS: Absolute Lymphocytes (CBC) 0.7 K/uL (0.7-4.9); Absolute Monocytes 0.9 K/uL (0.1-1.3); Absolute Neutrophil 14.1 K/uL (1.8-8.0); Hematocrit 30.2 % (36.0-45.0); Hemoglobin 9.9 g/dL (12.0-15.0); Lymphocytes % 4.7 % (15.3-44.8); MCH 29.8 pg (27.0-35.0); MCHC 32.9 g/dL (32.0-36.0); MCV 90.7 fL (80-100); MPV 8.8 fL (7.6-11.3); Neutrophils % 89.3 % (41.7-73.7); Platelets 249 thou/uL (152-406); RBC Red Blood Cell Count 3.33 M/uL (3.86-4.86); Red Cell Distribution Width 15.4 % (12.1-15.2)
[2024-07-05 06:27] LABS: Anion Gap 6.2 mEq/L (5.0-15.0); Phosphorus 2.2 mg/dL (2.5-4.9); Potassium 4.2 mEq/L (3.5-5.1)
[2024-07-05 08:44] LABS: Differential Total Cells Count 100; Segmented Neutrophils 89 % (40-80)
[2024-07-05 08:45] LABS: Atypical Lymphocytes 3 %; Band Neutrophils 1 % (0-1); Blood Morphology Comment NOT SEEN (NOT SEEN); Lymphocytes 3 % (15-42); Monocytes 4 % (0-10); Platelet Estimate ADEQ
[2024-07-05] MEDS: Oxycodone HCl/Acetaminophen 5/325 MG TAB PO PRN (10:29)
--- NOTE | 2024-07-05 16:35 | P.PN ---
Subjective Date of Service: 07/05/24 Chief Complaint: COPD exacerbation Delirious . c/o chest apin weak Review of Systems General: Weakness Respiratory: Shortness of Breath Cardiovascular: Chest Pain Physical Examination - Vital Signs Temperature: 98.0 F Blood Pressure: 155/57 Pulse: 66 Respirations: 15 Pulse Ox (%): 78 - Physical Exam General: Alert, Oriented x2 Neck: Supple Respiratory: Clear to auscultation bilaterally, Diminished - Studies Medications List Reviewed: Yes Assessment And Plan - Current Problems (Diagnosis) (1) COPD exacerbation Current Visit: Yes Status: Acute Plan: Stable no arrythmias. Renal function improvingReduce pred add thiamine WBC elevated .
--- NOTE | 2024-07-05 17:29 | P.PN ---
Subjective Date of Service: 07/05/24 Chief Complaint: COPD exacerbation Subjective: No new changes Review of Systems 10-point ROS is otherwise unremarkable Physical Examination - Vital Signs Temperature: 98.0 F Blood Pressure: 159/71 Pulse: 79 Respirations: 17 Pulse Ox (%): 80 - Physical Exam General: Alert, In no apparent distress HEENT: Atraumatic, PERRLA, EOMI Neck: Supple, JVD not distended Respiratory: Clear to auscultation bilaterally, Normal air movement Cardiovascular: Regular rate/rhythm, Normal S1 S2 Gastrointestinal: Normal bowel sounds, No tenderness Musculoskeletal: No tenderness Integumentary: No rashes Neurological: Normal speech, Normal tone, Normal affect Lymphatics: No axilla or inguinal lymphadenopathy - Studies Medications List Reviewed: Yes Assessment And Plan - Current Problems (Diagnosis) (1) Cardiac arrest Current Visit: Yes Status: Acute Plan: Patient is extubated and feel better, cardiac enzymes were not that elevated, repeated echo after arrest was normal typically patient will need coronary angiogram but patient functional status is very weak and she is mostly bed ridden, recommend medical treatment. continue amiodarone 200 mg po BID (2) Shock Current Visit: Yes Status: Acute Plan: with elevated white counts, can be secondary to aspiration vs underlying infection, recommend coverage with broad spectrum abx if BP is low and support vasopresssor support is needed then would recommend Levophed and vasopressin.
[2024-07-05] MEDS: HYDROCODONE/APAP 5/325 MG TAB PO PRN (19:05)
[2024-07-05] MEDS: BUSPIRONE HCL 5 MG TABLET PO SCH (20:13)
[2024-07-05] MEDS: THIAMINE HCL 100 MG TABLET PO SCH (20:13)
[2024-07-05] MEDS: predniSONE 10 MG TAB PO SCH (20:13)
--- NOTE | 2024-07-05 20:31 | P.PN ---
Date of Service: 07/05/24 Vital Signs Temp Pulse Resp BP Pulse Ox 98.0 F 72 15 171/74 H 95 07/05/24 17:29 07/05/24 19:00 07/05/24 19:05 07/05/24 19:00 07/05/24 19:05 Medications Acetaminophen (Acetaminophen 500 Mg Tab) 500 mg PO Q4HP PRN PRN Reason: SHORTNESS OF BREATH Last Admin: 07/03/24 20:48 Dose: 500 mg Acetaminophen (Acetaminophen 325 Mg Tablet) 650 mg PO Q4H PRN PRN Reason: Pain scale 2-4 (Mild) Last Admin: 07/03/24 03:39 Dose: 650 mg Hydrocodone Bitart/Acetaminophen (Hydrocodone/Apap 5/325 Mg Tab) 1 tab PO Q4H PRN PRN Reason: Pain scale 5-7 (Moderate) Last Admin: 07/05/24 19:05 Dose: 1 tab Alprazolam (Alprazolam 1 Mg Tablet) 1 mg PO BID [facility] Last Admin: 07/05/24 20:14 Dose: Not Given Alprazolam (Alprazolam 1 Mg Tablet) 1 mg PO BID PRN PRN Reason: ANXIETY Last Admin: 07/05/24 10:30 Dose: 1 mg Amiodarone HCl (Amiodarone Hcl 200 Mg Tab) 200 mg PO BID [facility] Last Admin: 07/05/24 20:13 Dose: 200 mg Atorvastatin Calcium (Atorvastatin 40 Mg Tab) 40 mg PO BEDTIME [facility] Last Admin: 07/05/24 20:13 Dose: 40 mg Benzonatate (Benzonatate 100 Mg Cap) 200 mg PO TID PRN PRN Reason: COUGH Last Admin: 07/04/24 23:29 Dose: 200 mg Buspirone HCl (Buspirone Hcl 5 Mg Tablet) 5 mg PO BID [facility] Last Admin: 07/05/24 20:13 Dose: 5 mg Clopidogrel Bisulfate (Clopidogrel 75 Mg Tablet) 75 mg PO DAILY [facility] Last Admin: 07/04/24 07:42 Dose: 75 mg Enoxaparin Sodium (Enoxaparin 30 Mg/0.3 Ml) 30 mg SQ DAILY [facility] Last Admin: 07/05/24 08:53 Dose: 30 mg Guaifenesin (Guaifenesin 100 Mg/5 Ml Ucup) 100 mg PO QID PRN PRN Reason: COUGH Last Admin: 07/03/24 15:15 Dose: 100 mg Hydralazine HCl (Hydralazine Hcl 20 Mg/Ml Vial) 10 mg IV Q6HP PRN PRN Reason: FOR SBP>160 OR DBP>100 [facility] Last Admin: 07/05/24 00:51 Dose: 10 mg Sodium Chloride (Sodium Chloride) 250 mls @ 999 mls/hr IV Q15M PRN PRN Reason: HYPOTENSION Ipratropium Pinson (Ipratropium Brom 0.5mg/2.5ml) 0.5 mg NEB [id number] [facility] Last Admin: 07/05/24 19:29 Dose: 0.5 mg Levalbuterol HCl (Levalbuterol 1.25 Mg/3 Ml Neb) 1.25 mg NEB [id number] [facility] Last Admin: 07/05/24 19:30 Dose: 1.25 mg Lidocaine (Lidocaine 4% Patch) 1 patch TOP DAILY [facility] Last Admin: 07/05/24 08:46 Dose: 1 patch Metoprolol Tartrate (Metoprolol Tar 25 Mg Tab) 25 mg PO BID 6AM 6PM [facility] Last Admin: 07/05/24 17:51 Dose: 25 mg Morphine Sulfate (Morphine 2 Mg/Ml Syr) 2 mg IV Q4H PRN PRN Reason: BREAKTHROUGH PAIN Nutritional Formula (Ensure Enlive 237 Ml Can) 237 ml PO BID [facility] Last Admin: 07/05/24 20:14 Dose: 237 ml Ondansetron HCl (Ondansetron 4 Mg/2 Ml Vial) 4 mg IV Q4H PRN PRN Reason: NAUSEA / VOMITING Last Admin: 06/27/24 21:13 Dose: 4 mg Oxycodone/Acetaminophen (Oxycodone Hcl/Acetaminophen 5/325 Mg Tab) 1 tab PO Q4H PRN PRN Reason: Pain scale 8-10 (Severe) Last Admin: 07/05/24 17:51 Dose: 1 tab Prednisone (Prednisone 10 Mg Tab) 10 mg PO BID [facility] Last Admin: 07/05/24 20:13 Dose: 10 mg Sodium Chloride (Sodium Chloride 0.9% 10ml Inj) 10 ml IV UD PRN PRN Reason: Diluant Thiamine HCl (Thiamine Hcl 100 Mg Tablet) 200 mg PO BID [facility] Last Admin: 07/05/24 20:13 Dose: 200 mg Venlafaxine HCl (Venlafaxine Hcl Xr 75 Mg Cap) 75 mg PO DAILY [facility] Last Admin: 07/05/24 08:42 Dose: 75 mg Microbiology Results 06/25/24 13:58 Blood - Blood Aerobic Blood Culture - Final No growth in 5 days. 06/25/24 13:58 Blood - Blood Anaerobic Blood Culture - Final No growth in 5 days. 06/25/24 13:58 Blood - Blood Aerobic Blood Culture - Final No growth in 5 days. 06/25/24 13:58 Blood - Blood Anaerobic Blood Culture - Final No growth in 5 days. 06/25/24 13:58 Nasopharnyx Influenza Type A Antigen Screen - Final 06/25/24 13:58 Nasopharnyx Influenza Type B Antigen Screen - Final Assessment/ Plan: Nephrology No dyspnea No chest pain Persistent Back Pain Limited IH/ ROS due to AMS Vitals, medications, blood work and imaging reviewed in the chart General: NAD HEENT: Atraumatic, Normocephalic Neck: Supple Respiratory: Normal air movement, non tahypnec, Other (reduced BS at bases) Cardiovascular: Other (Distant heart sounds) Gastrointestinal: Soft and benign, Non-distended, No tenderness Musculoskeletal: No swelling, No tenderness Integumentary: Extremities/feet cold Neurological: Awake and Alert Ny light LEFT VENTRICULAR WALL MOTION: NORMAL. DOPPLER/COLOR FLOW: GRADE I DIASTOLIC DYSFUNCTION. 1. NORMAL LEFT VENTRICULAR SYSTOLIC FUNCTION. LEFT VENTRICULAR EJECTION FRACTION 55-60%. NORMAL WALL MOTION. 2. GRADE I DIASTOLIC DYSFUNCTION. 3. NORMAL FILLING PRESSURE. RIGHT ATRIAL PRESSURE 0-5 mmHg. 4. MILD PULMONARY HYPERTENSION. RIGHT VENTRICULAR SYSTOLIC PRESSURE 30-35 mmHg. EXAMINATION: US LOWER EXTREMITIES ARTERIAL DOPPLER BILATERAL CLINICAL INDICATION: Female, 69 years old. r/o arterial occlusion TECHNIQUE: Arterial duplex ultrasound was performed of the legs bilaterally with real-time and Doppler evaluation. [id number]. COMPARISON: No prior exam. FINDINGS: Right leg Doppler: Grayscale: Mild plaque. Common femoral: Waveform: Triphasic Peak systolic velocity (cm/sec): 72 Superficial femoral: Waveform: Biphasic Peak systolic velocity (cm/sec): 58 Popliteal Waveform: Biphasic Peak systolic velocity (cm/sec): 54 Posterior Tibial: Waveform: Biphasic Peak systolic velocity (cm/sec): 49 Dorsalis pedis: Waveform: Biphasic Peak systolic velocity (cm/sec): 18 Left leg Doppler: Grayscale: Mild plaque. Common femoral: Waveform: Biphasic Peak systolic velocity (cm/sec): 62 Superficial femoral: Waveform: Biphasic Peak systolic velocity (cm/sec): 62 Popliteal Waveform: Biphasic Peak systolic velocity (cm/sec): 47 Posterior Tibial: Occluded Dorsalis pedis: Waveform: Biphasic Peak systolic velocity (cm/sec): 34 IMPRESSION: Left lower extremity: Occluded posterior tibial artery. The remaining vessels are patent with multiphasic waveforms. EXAM: Chest Single View HISTORY: resp failure COMPARISON: 06/30/2024 FINDINGS: LUNGS/PLEURA: Small cluster nodules in the right upper lobe are unchanged and chronic. No pleural effusions or pneumothorax. No pulmonary edema. MEDIASTINUM: The mediastinal silhouette is within normal limits. CARDIAC: Cardiac. UPPER ABDOMEN: No significant abnormality. BONES: No acute fracture. LINES/TUBES/OTHER: Endotracheal tube and NG tube removed. IMPRESSION: No evidence of acute cardiopulmonary disease. Interval extubation and removal of the NG tube. Conclusions/Impression: Stage III BEAU likely due to ischemic ATN Non-oliguric CKD II with Proteinuria -No NSAIDs -D5W X1L Hypophosphatemia -Replete prn HTN with CKD/ CHF -Continue Metoprolol Acute respiratory failure sp extubation 07-01-24 Cardiac Arrest/ Shock -Bipap prn -Follow up with cardiology -Continue Amiodarone Diastolic CHF, chronic Mild Pulmonary HTN -Lasix prn Hypoalbuminenia -Continue Ensure Anemia in chronic illness -Monitor H&H Hospitalist and cardiology notes reviewed Case reviewed with Dr. Cervantes
[2024-07-05] MEDS: D5W 1,000 ML IV SCH (22:06)
[2024-07-06 05:56] LABS: Absolute Lymphocytes (CBC) 1.3 K/uL (0.7-4.9); Absolute Neutrophil 14.3 K/uL (1.8-8.0); Basophils % 0.1 % (0-1.3); Eosinophils % 0.1 % (0-4.4); Hematocrit 29.6 % (36.0-45.0); Hemoglobin 9.3 g/dL (12.0-15.0); Lymphocytes % 7.6 % (15.3-44.8); MCH 29.4 pg (27.0-35.0); MCHC 31.5 g/dL (32.0-36.0); MCV 93.4 fL (80-100); MPV 8.9 fL (7.6-11.3); Monocytes % 5.8 % (3.3-12.3); Neutrophils % 86.4 % (41.7-73.7); Platelets 199 thou/uL (152-406); RBC Red Blood Cell Count 3.17 M/uL (3.86-4.86); Red Cell Distribution Width 15.7 % (12.1-15.2)
[2024-07-06 06:12] LABS: Anion Gap 4.5 mEq/L (5.0-15.0); Magnesium 2.7 mg/dL (1.6-2.4); Phosphorus 2.4 mg/dL (2.5-4.9); Potassium 4.5 mEq/L (3.5-5.1)
--- NOTE | 2024-07-06 10:44 | P.PN ---
Date of Service: 07/04/24 Subjective Patient still anxious and on Precedex. Need to get this Precedex weaned off. Will start BuSpar tonight and discontinue Precedex at this time. Continue with neb treatments for her asthma. Cardiac status has been stable. Monitor medications closely. Physical Examination - Vital Signs reviewed - Physical Exam General: Awakens to voice. Sedated Respiratory: End expiratory wheezing Cardiovascular: Regular rate and rhythm with no murmurs Gastrointestinal: Normal bowel sounds, nontender Musculoskeletal: No clubbing, No swelling, No tenderness Neurological: No focal deficits; lethargic Assessment & Plan - Problems (Diagnosis) (1) Asthma exacerbation Onset Date: 06/06/18 Current Visit: No Status: Acute (2) Depression with anxiety Onset Date: 06/06/18 Current Visit: No Status: Acute (3) SOB (shortness of breath) Onset Date: 06/06/18 Current Visit: No Status: Acute (4) Sinus tachycardia Current Visit: No Status: Acute (5) Heart failure with preserved ejection fraction Current Visit: Yes Status: Acute (6) VT arrest with ROSC Current Visit: Yes Status: Resolved Plan: 1. Continue with albuterol and Atrovent nebs 2. Continue with IV steroids; taper to oral steroids 3. Patient will need prison facility placement at this time 4. Continue monitoring cardiac status closely. 5. Repeat chest x-ray in the morning 6. Gentle diuresing; medication for diastolic dysfunction 7. Wean off Precedex at this time and start BuSpar 8. GI and DVT prophylaxis Discharge Plan: Home Plan to discharge in: greater than 3 days - Advance Directives Does patient have a Living Will: No Does patient have a Durable POA for Healthcare: No - Code Status/Comfort Care Code Status Assessed: Yes Code Status: Full Code Critical Care: No
--- NOTE | 2024-07-06 10:45 | P.PN ---
Date of Service: 07/05/24 Subjective Patient doing much better. Patient clinical symptoms are stable. Blood pressure elevated today. Will go ahead and increase antihypertensives. BuSpar controlling anxiety. She was a little upset because her daughter has not checked on her. Will update her daughter and see if she can come by and check on her. Will downgrade to medical surgical unit. Physical Examination - Vital Signs reviewed - Physical Exam General: Following commands; awakens and no complaints-seems anxious and upset condition Respiratory: Clear bilaterally except for some mild end expiratory wheezing Cardiovascular: Regular rate and rhythm with no murmurs Gastrointestinal: Normal bowel sounds, nontender Musculoskeletal: No clubbing, No swelling, No tenderness Neurological: No focal deficits; lethargic; generalized weakness. Assessment & Plan - Problems (Diagnosis) (1) Asthma exacerbation Onset Date: 06/06/18 Current Visit: No Status: Acute (2) Depression with anxiety Onset Date: 06/06/18 Current Visit: No Status: Acute (3) SOB (shortness of breath) Onset Date: 06/06/18 Current Visit: No Status: Acute (4) Sinus tachycardia Current Visit: No Status: Acute (5) Heart failure with preserved ejection fraction Current Visit: Yes Status: Acute (6) VT arrest with ROSC Current Visit: Yes Status: Resolved Plan: 1. Continue with albuterol and Atrovent nebs 2. Continue with IV steroids; taper to oral steroids 3. Patient will need [facility] facility placement at this time 4. Continue monitoring cardiac status closely. 5. Repeat chest x-ray in the morning 6. Gentle diuresing; medication for diastolic dysfunction 7. GI and DVT prophylaxis Discharge Plan: Home Plan to discharge in: greater than 3 days - Advance Directives Does patient have a Living Will: No Does patient have a Durable POA for Healthcare: No - Code Status/Comfort Care Code Status Assessed: Yes Code Status: Full Code Critical Care: No
[2024-07-06] MEDS: METOPROLOL TAR 25 MG TAB PO ONE (12:33)
[2024-07-06] MEDS: METOPROLOL TAR 25 MG TAB PO SCH (13:02)
--- NOTE | 2024-07-06 15:35 | P.PN ---
Date of Service: 07/06/24 Subjective Patient clinically doing much better. However, emotionally she still gets upset and does not really want to do any therapy today. I have encouraged her that she needs to continue working with physical therapy. Patient will restart physical therapy continue nebs at this time. She needs start moving out of bed. Her long-term prognosis remains poor she is very unmotivated to do what she needs to do to improve her clinical condition.. Physical Examination - Vital Signs reviewed - Physical Exam General: Awakens to voice. Respiratory: Clear bilaterally Cardiovascular: Regular rate and rhythm with no murmurs Gastrointestinal: Normal bowel sounds, nontender Musculoskeletal: No clubbing, No swelling, No tenderness Neurological: No focal deficits; lethargic; generalized weakness. Assessment & Plan - Problems (Diagnosis) (1) Asthma exacerbation Onset Date: 06/06/18 Current Visit: No Status: Acute (2) Depression with anxiety Onset Date: 06/06/18 Current Visit: No Status: Acute (3) SOB (shortness of breath) Onset Date: 06/06/18 Current Visit: No Status: Acute (4) Sinus tachycardia Current Visit: No Status: Acute (5) Heart failure with preserved ejection fraction Current Visit: Yes Status: Acute (6) VT arrest with ROSC Current Visit: Yes Status: Resolved Plan: 1. Continue with albuterol and Atrovent nebs 2. Continue with IV steroids; taper to oral steroids 3. Patient will need [facility] facility placement at this time 4. Continue monitoring cardiac status closely. 5. Repeat chest x-ray in the morning 6. Gentle diuresing; medication for diastolic dysfunction 7. GI and DVT prophylaxis Discharge Plan: Home Plan to discharge in: greater than 3 days - Advance Directives Does patient have a Living Will: No Does patient have a Durable POA for Healthcare: No - Code Status/Comfort Care Code Status Assessed: Yes Code Status: Full Code Critical Care: No
[2024-07-06 20:18] LABS: Anti-Cardiolipin IgG Antibody <2.0 GPL-U/mL (<20.0); Anti-Cardiolipin IgM Antibody <2.0 MPL-U/mL (<20.0); Beta-2-Glycoprotein I IgA <2.0 U/mL (<20.0); Beta-2-Glycoprotein I IgG <2.0 U/mL (<20.0); Beta-2-Glycoprotein I IgM <2.0 U/mL (<20.0); Phosphatidylser & Prothrom IgG <9 U (<=30); Phosphatidylser & Prothrom IgM <9 U (<=30)
[2024-07-06] MEDS: MORPHINE 2 MG/ML SYR IV PRN (21:00)
[2024-07-06] MEDS: LOSARTAN POTASSIUM 50 MG TABLET PO SCH (21:05)
[2024-07-06] MEDS: IPRATROPIUM BROM 0.5MG/2.5ML NEB ONE (21:29)
[2024-07-06] MEDS: LEVALBUTEROL 1.25 MG/3 ML NEB NEB ONE (21:29)
--- NOTE | 2024-07-06 22:05 | P.PN ---
Date of Service: 07/06/24 Vital Signs Temp Pulse Resp BP Pulse Ox 98.4 F 79 20 149/53 H 95 07/06/24 20:57 07/06/24 21:05 07/06/24 21:30 07/06/24 21:05 07/06/24 21:30 Medications Acetaminophen (Acetaminophen 500 Mg Tab) 500 mg PO Q4HP PRN PRN Reason: SHORTNESS OF BREATH Last Admin: 07/03/24 20:48 Dose: 500 mg Acetaminophen (Acetaminophen 325 Mg Tablet) 650 mg PO Q4H PRN PRN Reason: Pain scale 2-4 (Mild) Last Admin: 07/06/24 07:41 Dose: 650 mg Hydrocodone Bitart/Acetaminophen (Hydrocodone/Apap 5/325 Mg Tab) 1 tab PO Q4H PRN PRN Reason: Pain scale 5-7 (Moderate) Last Admin: 07/06/24 18:46 Dose: 1 tab Amiodarone HCl (Amiodarone Hcl 200 Mg Tab) 200 mg PO BID [facility] Last Admin: 07/06/24 21:05 Dose: 200 mg Atorvastatin Calcium (Atorvastatin 40 Mg Tab) 40 mg PO BEDTIME [facility] Last Admin: 07/06/24 21:04 Dose: 40 mg Benzonatate (Benzonatate 100 Mg Cap) 200 mg PO TID PRN PRN Reason: COUGH Last Admin: 07/06/24 21:04 Dose: 200 mg Buspirone HCl (Buspirone Hcl 5 Mg Tablet) 5 mg PO BID [facility] Last Admin: 07/06/24 21:05 Dose: 5 mg Clopidogrel Bisulfate (Clopidogrel 75 Mg Tablet) 75 mg PO DAILY [facility] Last Admin: 07/06/24 07:40 Dose: 75 mg Enoxaparin Sodium (Enoxaparin 30 Mg/0.3 Ml) 30 mg SQ DAILY [facility] Last Admin: 07/06/24 07:41 Dose: 30 mg Guaifenesin (Guaifenesin 100 Mg/5 Ml Ucup) 100 mg PO QID PRN PRN Reason: COUGH Last Admin: 07/06/24 18:49 Dose: 100 mg Sodium Chloride (Sodium Chloride) 250 mls @ 999 mls/hr IV Q15M PRN PRN Reason: HYPOTENSION Dextrose/Water (Dextrose In Water (1-Liter)) 1,000 mls @ 100 mls/hr IV .Q10H [facility] Stop: 07/07/24 08:09 Ipratropium Search[place] (Ipratropium Brom 0.5mg/2.5ml) 0.5 mg NEB [id number] [facility] Last Admin: 07/06/24 20:09 Dose: 0.5 mg Levalbuterol HCl (Levalbuterol 1.25 Mg/3 Ml Neb) 1.25 mg NEB [id number] [facility] Last Admin: 07/06/24 20:09 Dose: 1.25 mg Lidocaine (Lidocaine 4% Patch) 1 patch TOP DAILY [facility] Last Admin: 07/06/24 07:41 Dose: 1 patch Losartan Potassium (Losartan Potassium 50 Mg Tablet) 50 mg PO ONCE ONE Stop: 07/07/24 10:48 Losartan Potassium (Losartan Potassium 50 Mg Tablet) 50 mg PO BID [facility] Last Admin: 07/06/24 21:05 Dose: 50 mg Metoprolol Tartrate (Metoprolol Tar 25 Mg Tab) 25 mg PO TID [facility] Last Admin: 07/06/24 21:05 Dose: 25 mg Morphine Sulfate (Morphine 2 Mg/Ml Syr) 2 mg IV Q4H PRN PRN Reason: BREAKTHROUGH PAIN Last Admin: 07/06/24 21:00 Dose: 2 mg Nutritional Formula (Ensure Enlive 237 Ml Can) 237 ml PO BID [facility] Last Admin: 07/06/24 21:00 Dose: 237 ml Ondansetron HCl (Ondansetron 4 Mg/2 Ml Vial) 4 mg IV Q4H PRN PRN Reason: NAUSEA / VOMITING Last Admin: 06/27/24 21:13 Dose: 4 mg Prednisone (Prednisone 10 Mg Tab) 10 mg PO BID [facility] Last Admin: 07/06/24 21:04 Dose: 10 mg Sodium Chloride (Sodium Chloride 0.9% 10ml Inj) 10 ml IV UD PRN PRN Reason: Diluant Thiamine HCl (Thiamine Hcl 100 Mg Tablet) 200 mg PO BID [facility] Last Admin: 07/06/24 21:05 Dose: 200 mg Venlafaxine HCl (Venlafaxine Hcl Xr 75 Mg Cap) 75 mg PO DAILY [facility] Last Admin: 07/06/24 07:41 Dose: 75 mg Microbiology Results 06/25/24 13:58 Blood - Blood Aerobic Blood Culture - Final No growth in 5 days. 06/25/24 13:58 Blood - Blood Anaerobic Blood Culture - Final No growth in 5 days. 06/25/24 13:58 Blood - Blood Aerobic Blood Culture - Final No growth in 5 days. 06/25/24 13:58 Blood - Blood Anaerobic Blood Culture - Final No growth in 5 days. 06/25/24 13:58 Nasopharnyx Influenza Type A Antigen Screen - Final 06/25/24 13:58 Nasopharnyx Influenza Type B Antigen Screen - Final Assessment/ Plan: Nephrology No dyspnea No chest pain Persistent Back Pain Limited IH/ ROS due to somnolence Vitals, medications, blood work and imaging reviewed in the chart General: NAD HEENT: Atraumatic, Normocephalic Neck: Supple Respiratory: Normal air movement, non tahypnec, Other (reduced BS at bases) Cardiovascular: Other (Distant heart sounds) Gastrointestinal: Soft and benign, Non-distended, No tenderness Musculoskeletal: No swelling, No tenderness Integumentary: Extremities/feet cold Neurological: Somnolent Ny light LEFT VENTRICULAR WALL MOTION: NORMAL. DOPPLER/COLOR FLOW: GRADE I DIASTOLIC DYSFUNCTION. 1. NORMAL LEFT VENTRICULAR SYSTOLIC FUNCTION. LEFT VENTRICULAR EJECTION FRACTION 55-60%. NORMAL WALL MOTION. 2. GRADE I DIASTOLIC DYSFUNCTION. 3. NORMAL FILLING PRESSURE. RIGHT ATRIAL PRESSURE 0-5 mmHg. 4. MILD PULMONARY HYPERTENSION. RIGHT VENTRICULAR SYSTOLIC PRESSURE 30-35 mmHg. EXAMINATION: US LOWER EXTREMITIES ARTERIAL DOPPLER BILATERAL CLINICAL INDICATION: Female, 69 years old. r/o arterial occlusion TECHNIQUE: Arterial duplex ultrasound was performed of the legs bilaterally with real-time and Doppler evaluation. [id number]. COMPARISON: No prior exam. FINDINGS: Right leg Doppler: Grayscale: Mild plaque. Common femoral: Waveform: Triphasic Peak systolic velocity (cm/sec): 72 Superficial femoral: Waveform: Biphasic Peak systolic velocity (cm/sec): 58 Popliteal Waveform: Biphasic Peak systolic velocity (cm/sec): 54 Posterior Tibial: Waveform: Biphasic Peak systolic velocity (cm/sec): 49 Dorsalis pedis: Waveform: Biphasic Peak systolic velocity (cm/sec): 18 Left leg Doppler: Grayscale: Mild plaque. Common femoral: Waveform: Biphasic Peak systolic velocity (cm/sec): 62 Superficial femoral: Waveform: Biphasic Peak systolic velocity (cm/sec): 62 Popliteal Waveform: Biphasic Peak systolic velocity (cm/sec): 47 Posterior Tibial: Occluded Dorsalis pedis: Waveform: Biphasic Peak systolic velocity (cm/sec): 34 IMPRESSION: Left lower extremity: Occluded posterior tibial artery. The remaining vessels are patent with multiphasic waveforms. EXAM: Chest Single View HISTORY: resp failure COMPARISON: 06/30/2024 FINDINGS: LUNGS/PLEURA: Small cluster nodules in the right upper lobe are unchanged and chronic. No pleural effusions or pneumothorax. No pulmonary edema. MEDIASTINUM: The mediastinal silhouette is within normal limits. CARDIAC: Cardiac. UPPER ABDOMEN: No significant abnormality. BONES: No acute fracture. LINES/TUBES/OTHER: Endotracheal tube and NG tube removed. IMPRESSION: No evidence of acute cardiopulmonary disease. Interval extubation and removal of the NG tube. Conclusions/Impression: Stage III BEAU likely due to ischemic ATN Non-oliguric CKD II with Proteinuria -No NSAIDs -D5W X1L Hypophosphatemia -Replete prn HTN with CKD/ CHF -Continue Metoprolol Acute respiratory failure sp extubation 07-01-24 Cardiac Arrest/ Shock -Bipap prn -Follow up with cardiology -Continue Amiodarone Diastolic CHF, chronic Mild Pulmonary HTN -Lasix prn Hypoalbuminenia -Continue Ensure Anemia in chronic illness -Monitor H&H Hospitalist and cardiology notes reviewed Case reviewed with Dr. Cervantes
--- NOTE | 2024-07-06 22:07 | RAD REPORT ---
EXAMINATION: ONE VIEW CHEST XR CLINICAL INDICATION: copd TECHNIQUE: Frontal chest projection is submitted. Examination is limited by patient positioning and t echnique. COMPARISON: 07/01/2024 FINDINGS: Mild bibasilar lung opacities are present, more prominent than on prior study. This may represent bib asilar atelectasis or infiltrate/aspiration. Small bilateral pleural effusions suspected, greater on the left. The heart is upper limit of normal in size. No displaced fractures identified. IMPRESSION: Development of mild/moderate bibasilar lung opacities since prior chest radiograph. This may represen t atelectasis or infiltrate/pneumonia. Small pleural effusions likely present.
[2024-07-07] MEDS: D5W 1,000 ML IV SCH (00:27)
[2024-07-07] MEDS: ALBUTEROL 2.5 MG/3 ML NEB SOL NEB ONE (03:21)
[2024-07-07] MEDS: LEVALBUTEROL 1.25 MG/3 ML NEB ONE (03:32)
[2024-07-07] MEDS: IPRATROPIUM BROM 0.5MG/2.5ML ONE (03:33)
[2024-07-07] MEDS: IPRATROPIUM BROM 0.5MG/2.5ML NEB ONE ×2 (03:38→06:30)
[2024-07-07] MEDS: LEVALBUTEROL 1.25 MG/3 ML NEB NEB ONE (06:30)
[2024-07-07 06:54] LABS: Absolute Basophils 0.1 K/uL (0-0.5); Absolute Lymphocytes (CBC) 1.1 K/uL (0.7-4.9); Absolute Monocytes 1.1 K/uL (0.1-1.3); Absolute Neutrophil 24.5 K/uL (1.8-8.0); Basophils % 0.4 % (0-1.3); Hematocrit 32.9 % (36.0-45.0); Hemoglobin 10.8 g/dL (12.0-15.0); Lymphocytes % 4.1 % (15.3-44.8); MCH 30.3 pg (27.0-35.0); MCHC 32.9 g/dL (32.0-36.0); MPV 8.7 fL (7.6-11.3); Monocytes % 4.1 % (3.3-12.3); Neutrophils % 91.4 % (41.7-73.7); Platelets 282 thou/uL (152-406); RBC Red Blood Cell Count 3.58 M/uL (3.86-4.86); Red Cell Distribution Width 15.8 % (12.1-15.2)
[2024-07-07 07:01] LABS: Anion Gap 7.6 mEq/L (5.0-15.0); Magnesium 2.3 mg/dL (1.6-2.4); Phosphorus 2.7 mg/dL (2.5-4.9); Potassium 4.6 mEq/L (3.5-5.1)
[2024-07-07 07:15] LABS: Blood O2 Saturation 94.6 % (92-98.5)
[2024-07-07 07:16] LABS: Arterial Blood Carboxyhemoglob 1.4 % (0-1.5); Blood Gas Oxyhemoglobin 92.4 % (94-97); Blood Gas THB 0.9 g/dl (12-18)
[2024-07-07 08:08] LABS: Anisocytosis SLIGHT; Band Neutrophils 4 % (0-1); Blood Morphology Comment NOTED (NOT SEEN); Differential Total Cells Count 100; Lymphocytes 8 % (15-42); Monocytes 6 % (0-10); Platelet Estimate ADEQ; Polychromasia SLIGHT; Segmented Neutrophils 82 % (40-80)
--- NOTE | 2024-07-07 10:42 | P.PN ---
Subjective Date of Service: 07/07/24 Chief Complaint: COPD exacerbation Worsend last night more dyspneic Review of Systems General: Weakness Respiratory: Shortness of Breath Cardiovascular: Chest Pain Physical Examination - Vital Signs Temperature: 97.9 F Blood Pressure: 142/65 Pulse: 91 Respirations: 16 Pulse Ox (%): 97 - Physical Exam General: Alert, Oriented x3, Mild distress Respiratory: Clear to auscultation bilaterally, Diminished Cardiovascular: No edema, Regular rate/rhythm, Normal S1 S2 - Studies Medications List Reviewed: Yes Assessment And Plan - Current Problems (Diagnosis) (1) COPD exacerbation Current Visit: Yes Status: Acute Plan: worse. WBC increased. Add Cefepime/ ABG hypoxemia/ D Dimer. high risk for DVT and PE start on Eliquis for now Add Daliresp BIPAP prn
[2024-07-07] MEDS ORDERED: LOSARTAN POTASSIUM 50 MG TABLET PO ONE (10:47)
[2024-07-07] MEDS: ALPRAZOLAM 0.25 MG TABLET PO ONE ×2 (11:16→20:54)
[2024-07-07] MEDS: APIXABAN 5 MG TABLET PO SCH (11:17)
[2024-07-07] MEDS: CEFEPIME 1 GM in NA CHLORIDE 0.9% 100 ML IV SCH (11:17)
[2024-07-07] MEDS: ROFLUMILAST 500 MCG TABLET PO SCH (11:17)
--- NOTE | 2024-07-07 11:28 | P.PN ---
(S) Pt out of the ICU and with some renal recovery since last seen Sun but still with resp insufficiency, on venturi mask, reports rough night, anxious (O) vitals reviewed in the EMR General: Other (Appears chronically ill, but not as lethargic) HEENT: Atraumatic, Normocephalic, Other (venturi mask) Neck: Supple Respiratory: Scattered exp wheezes, reduced BS at bases Cardiovascular: Other (mild tachy, regular) Gastrointestinal: Soft and benign, Non-distended, No tenderness Musculoskeletal: No swelling, No tenderness, muscle mass loss Integumentary: Extremities/feet cold, discoloration of Rt foot Neurological: Other (awake, conversive, no tremors or myoclonus noted, generalized weakness) Conclusions/Impression: A/P) 1. Stage II BEAU last week in the setting of hemodynamic factors with hypotension, V-tach, resp failure, other likely with ischemic ATN developed but fortunately has partially recovered since, cont to monitor closely 2. Acute on chronic resp failure, unspecified -latest CXR with persistent basilar infiltrates/small effusions, management per pulm/IM, will add back lower dose scheduled diuretics 3. Elevated BNP. Chronic diastolic dysfunction/mild pulm HTN on TTE 4. V-tach unspecified. Hypotension, other, resolved. Trend BP closely, it appears max dose ARB was resumed which we will need to be cautious with
[2024-07-07] MEDS: FUROSEMIDE 20 MG/ 2ML VIAL IV SCH (13:04)
[2024-07-08] MEDS: ALPRAZOLAM 0.25 MG TABLET PO PRN (05:19)
--- NOTE | 2024-07-08 09:46 | P.PN ---
Subjective Date of Service: 07/08/24 Chief Complaint: COPD exacerbation Patient states that she is not doing any better complaining of chest pain of breath no change Review of Systems General: Weakness Respiratory: Shortness of Breath Cardiovascular: Chest Pain Physical Examination - Vital Signs Temperature: 97.9 F Blood Pressure: 170/70 Pulse: 74 Respirations: 20 Pulse Ox (%): 95 - Physical Exam General: Alert, Oriented x1, Delirious Respiratory: Clear to auscultation bilaterally, Diminished Cardiovascular: No edema, Regular rate/rhythm - Studies Medications List Reviewed: Yes Assessment And Plan - Current Problems (Diagnosis) (1) COPD exacerbation Current Visit: Yes Status: Acute Plan: Patient admitted with COPD exacerbation chest pain from CPR of IV Solu-Medrol labs are pending patient's blood pressure is elevated Octavio labs pending urination satisfactory
[2024-07-08 09:55] LABS: Absolute Basophils 0.1 K/uL (0-0.5); Absolute Lymphocytes (CBC) 1.7 K/uL (0.7-4.9); Absolute Monocytes 0.8 K/uL (0.1-1.3); Absolute Neutrophil 19.6 K/uL (1.8-8.0); Basophils % 0.3 % (0-1.3); Eosinophils % 0.1 % (0-4.4); Hematocrit 31.3 % (36.0-45.0); Hemoglobin 9.8 g/dL (12.0-15.0); Lymphocytes % 7.9 % (15.3-44.8); MCH 29.2 pg (27.0-35.0); MCHC 31.3 g/dL (32.0-36.0); MCV 93.3 fL (80-100); MPV 9.2 fL (7.6-11.3); Monocytes % 3.4 % (3.3-12.3); Neutrophils % 88.3 % (41.7-73.7); Nucleated Red Blood Cells % 0.1 % (0-0); Platelets 203 thou/uL (152-406); RBC Red Blood Cell Count 3.35 M/uL (3.86-4.86); Red Cell Distribution Width 15.8 % (12.1-15.2)
[2024-07-08 10:06] LABS: Anion Gap 8.2 mEq/L (5.0-15.0); Potassium 4.2 mEq/L (3.5-5.1)
[2024-07-08] MEDS: METHYLPREDNISOLONE 40 MG INJ IV SCH (10:23)
--- NOTE | 2024-07-09 11:49 | RAD REPORT ---
EXAMINATION: CTA CHEST PE CLINICAL INDICATION: sob TECHNIQUE: 100 cc 370 Isovue administered intravenously. This examination was performed according to an angiographic protocol with 3D post-processing. This involves 3D reconstructions, MIPs, volume rendered images and/or shaded surface rendering. One or more of the following dose reduction techniqu es were used: Automated exposure control, adjustment of the mA and/or kV according to patient size, and/or iterative reconstruction. Unless otherwise specified, incidental findings do not require dedic ated imaging follow-up. [id number]. COMPARISON: April 2024. FINDINGS: A pulmonary embolus is not seen. An aortic aneurysm not noted. Small bilateral pleural effusions with bilateral basilar atelectasis. No pericardial effusion.. Cardiomegaly Mild tree-in-bud opacities within the lungs without change. Mild groundglass opacity left upper lobe. Mild right middle lobe atelectasis. Small splenic lesion unchanged likely benign. Most inferior slice demonstrates a well-defined 1 cm low-density area evaluated on this exam. IMPRESSION: No evidence of a pulmonary embolism Mild bilateral pulmonary opacities may indicate an atypical infection or pneumonitis.
--- NOTE | 2024-07-09 14:23 | P.PN ---
Date of Service: 07/08/24 Vital Signs Temp Pulse Resp BP Pulse Ox 97.5 F 66 20 144/65 H 97 07/09/24 12:00 07/09/24 12:48 07/09/24 12:00 07/09/24 12:48 07/09/24 12:00 Medications Acetaminophen (Acetaminophen 500 Mg Tab) 500 mg PO Q4HP PRN PRN Reason: SHORTNESS OF BREATH Last Admin: 07/03/24 20:48 Dose: 500 mg Acetaminophen (Acetaminophen 325 Mg Tablet) 650 mg PO Q4H PRN PRN Reason: Pain scale 2-4 (Mild) Last Admin: 07/07/24 11:16 Dose: 650 mg Hydrocodone Bitart/Acetaminophen (Hydrocodone/Apap 5/325 Mg Tab) 1 tab PO Q4H PRN PRN Reason: Pain scale 5-7 (Moderate) Last Admin: 07/09/24 01:58 Dose: 1 tab Alprazolam (Alprazolam 0.25 Mg Tablet) 0.125 mg PO TID PRN PRN Reason: ANXIETY Last Admin: 07/09/24 09:19 Dose: 0.125 mg Amiodarone HCl (Amiodarone Hcl 200 Mg Tab) 200 mg PO BID [facility] Last Admin: 07/09/24 08:59 Dose: 200 mg Apixaban (Apixaban 5 Mg Tablet) 5 mg PO BID [facility] Last Admin: 07/09/24 08:59 Dose: 5 mg Atorvastatin Calcium (Atorvastatin 40 Mg Tab) 40 mg PO BEDTIME [facility] Last Admin: 07/08/24 20:40 Dose: 40 mg Benzonatate (Benzonatate 100 Mg Cap) 200 mg PO TID PRN PRN Reason: COUGH Last Admin: 07/09/24 08:59 Dose: 200 mg Buspirone HCl (Buspirone Hcl 5 Mg Tablet) 5 mg PO BID [facility] Last Admin: 07/09/24 08:59 Dose: 5 mg Clopidogrel Bisulfate (Clopidogrel 75 Mg Tablet) 75 mg PO DAILY [facility] Last Admin: 07/09/24 08:59 Dose: 75 mg Furosemide (Furosemide 20 Mg/ 2ml Vial) 20 mg IV DAILY [facility] Stop: 07/10/24 12:01 Last Admin: 07/09/24 08:58 Dose: 20 mg Guaifenesin (Guaifenesin 100 Mg/5 Ml Ucup) 100 mg PO QID PRN PRN Reason: COUGH Last Admin: 07/09/24 12:48 Dose: 100 mg Sodium Chloride (Sodium Chloride) 250 mls @ 999 mls/hr IV Q15M PRN PRN Reason: HYPOTENSION Cefepime HCl 1 gm/ Sodium (Chloride) 100 mls @ 200 mls/hr IV Q12HR [facility]; Protocol Last Admin: 07/09/24 08:58 Dose: 100 mls Ipratropium Mead (Ipratropium Brom 0.5mg/2.5ml) 0.5 mg NEB [id number] [facility] Last Admin: 07/09/24 08:30 Dose: 0.5 mg Levalbuterol HCl (Levalbuterol 1.25 Mg/3 Ml Neb) 1.25 mg NEB [id number] [facility] Last Admin: 07/09/24 08:30 Dose: 1.25 mg Lidocaine (Lidocaine 4% Patch) 1 patch TOP DAILY [facility] Last Admin: 07/09/24 08:58 Dose: 1 patch Losartan Potassium (Losartan Potassium 50 Mg Tablet) 50 mg PO BID [facility] Last Admin: 07/09/24 08:59 Dose: 50 mg Methylprednisolone Sodium Succinate (Methylprednisolone 40 Mg Inj) 40 mg IV Q8HR [facility] Last Admin: 07/09/24 08:58 Dose: 40 mg Metoprolol Tartrate (Metoprolol Tar 25 Mg Tab) 25 mg PO TID [facility] Last Admin: 07/09/24 12:48 Dose: 25 mg Morphine Sulfate (Morphine 2 Mg/Ml Syr) 2 mg IV Q4H PRN PRN Reason: BREAKTHROUGH PAIN Last Admin: 07/08/24 09:27 Dose: 2 mg Nutritional Formula (Ensure Enlive 237 Ml Can) 237 ml PO BID [facility] Last Admin: 07/09/24 09:03 Dose: 237 ml Ondansetron HCl (Ondansetron 4 Mg/2 Ml Vial) 4 mg IV Q4H PRN PRN Reason: NAUSEA / VOMITING Last Admin: 06/27/24 21:13 Dose: 4 mg Roflumilast (Roflumilast 500 Mcg Tablet) 500 mcg PO DAILY [facility] Last Admin: 07/09/24 08:59 Dose: 500 mcg Sodium Chloride (Sodium Chloride 0.9% 10ml Inj) 10 ml IV UD PRN PRN Reason: Diluant Thiamine HCl (Thiamine Hcl 100 Mg Tablet) 200 mg PO BID [facility] Last Admin: 07/09/24 08:59 Dose: 200 mg Venlafaxine HCl (Venlafaxine Hcl Xr 75 Mg Cap) 75 mg PO DAILY [facility] Last Admin: 07/09/24 08:59 Dose: 75 mg Microbiology Results 06/25/24 13:58 Blood - Blood Aerobic Blood Culture - Final No growth in 5 days. 06/25/24 13:58 Blood - Blood Anaerobic Blood Culture - Final No growth in 5 days. 06/25/24 13:58 Blood - Blood Aerobic Blood Culture - Final No growth in 5 days. 06/25/24 13:58 Blood - Blood Anaerobic Blood Culture - Final No growth in 5 days. 06/25/24 13:58 Nasopharnyx Influenza Type A Antigen Screen - Final 06/25/24 13:58 Nasopharnyx Influenza Type B Antigen Screen - Final Assessment/ Plan: Nephrology No dyspnea No chest pain Limited IH/ ROS due to somnolence Vitals, medications, blood work and imaging reviewed in the chart General: NAD HEENT: Atraumatic, Normocephalic Neck: Supple Respiratory: Normal air movement, non tahypnec, Other (reduced BS at bases) Cardiovascular: Other (Distant heart sounds) Gastrointestinal: Soft and benign, Non-distended, No tenderness Musculoskeletal: No swelling, No tenderness Integumentary: Extremities/feet cold Neurological: Somnolent Ny light LEFT VENTRICULAR WALL MOTION: NORMAL. DOPPLER/COLOR FLOW: GRADE I DIASTOLIC DYSFUNCTION. 1. NORMAL LEFT VENTRICULAR SYSTOLIC FUNCTION. LEFT VENTRICULAR EJECTION FRACTION 55-60%. NORMAL WALL MOTION. 2. GRADE I DIASTOLIC DYSFUNCTION. 3. NORMAL FILLING PRESSURE. RIGHT ATRIAL PRESSURE 0-5 mmHg. 4. MILD PULMONARY HYPERTENSION. RIGHT VENTRICULAR SYSTOLIC PRESSURE 30-35 mmHg. EXAMINATION: US LOWER EXTREMITIES ARTERIAL DOPPLER BILATERAL CLINICAL INDICATION: Female, 69 years old. r/o arterial occlusion TECHNIQUE: Arterial duplex ultrasound was performed of the legs bilaterally with real-time and Doppler evaluation. [id number]. COMPARISON: No prior exam. FINDINGS: Right leg Doppler: Grayscale: Mild plaque. Common femoral: Waveform: Triphasic Peak systolic velocity (cm/sec): 72 Superficial femoral: Waveform: Biphasic Peak systolic velocity (cm/sec): 58 Popliteal Waveform: Biphasic Peak systolic velocity (cm/sec): 54 Posterior Tibial: Waveform: Biphasic Peak systolic velocity (cm/sec): 49 Dorsalis pedis: Waveform: Biphasic Peak systolic velocity (cm/sec): 18 Left leg Doppler: Grayscale: Mild plaque. Common femoral: Waveform: Biphasic Peak systolic velocity (cm/sec): 62 Superficial femoral: Waveform: Biphasic Peak systolic velocity (cm/sec): 62 Popliteal Waveform: Biphasic Peak systolic velocity (cm/sec): 47 Posterior Tibial: Occluded Dorsalis pedis: Waveform: Biphasic Peak systolic velocity (cm/sec): 34 IMPRESSION: Left lower extremity: Occluded posterior tibial artery. The remaining vessels are patent with multiphasic waveforms. EXAM: Chest Single View HISTORY: resp failure COMPARISON: 06/30/2024 FINDINGS: LUNGS/PLEURA: Small cluster nodules in the right upper lobe are unchanged and chronic. No pleural effusions or pneumothorax. No pulmonary edema. MEDIASTINUM: The mediastinal silhouette is within normal limits. CARDIAC: Cardiac. UPPER ABDOMEN: No significant abnormality. BONES: No acute fracture. LINES/TUBES/OTHER: Endotracheal tube and NG tube removed. IMPRESSION: No evidence of acute cardiopulmonary disease. Interval extubation and removal of the NG tube. Conclusions/Impression: Stage III BEAU likely due to ischemic ATN Non-oliguric CKD II with Proteinuria -No NSAIDs Hypophosphatemia -Replete prn HTN with CKD/ CHF -Continue Metoprolol Acute respiratory failure sp extubation 07-01-24 Cardiac Arrest/ Shock -Bipap prn -Follow up with cardiology -Continue Amiodarone Diastolic CHF, chronic Mild Pulmonary HTN -Lasix prn Hypoalbuminenia -Continue Ensure Anemia in chronic illness -Monitor H&H Hospitalist and cardiology notes reviewed Case reviewed with Dr. Cervantes
--- NOTE | 2024-07-09 20:20 | P.PN ---
Date of Service: 07/07/24 Subjective Patient was weaned off of Precedex. Clinically doing much better. Patient symptoms are much improved. Patient denies any new complaints. Continue with Klonopin as scheduled and patient requesting Xanax as needed. Continue with BiPAP at night. Working on halfway facility placement at this time. Trying to get patient to do physical therapy. Recommend patient out of bed into a chair for meals. Physical Examination - Vital Signs reviewed - Physical Exam General: Awakens to voice. Respiratory: Clear bilaterally Cardiovascular: Regular rate and rhythm with no murmurs Gastrointestinal: Normal bowel sounds, nontender Musculoskeletal: No clubbing, No swelling, No tenderness Neurological: No focal deficits; lethargic; generalized weakness. Assessment & Plan - Problems (Diagnosis) (1) Asthma exacerbation Onset Date: 06/06/18 Current Visit: No Status: Acute (2) Depression with anxiety Onset Date: 06/06/18 Current Visit: No Status: Acute (3) SOB (shortness of breath) Onset Date: 06/06/18 Current Visit: No Status: Acute (4) Sinus tachycardia Current Visit: No Status: Acute (5) Heart failure with preserved ejection fraction Current Visit: Yes Status: Acute (6) VT arrest with ROSC Current Visit: Yes Status: Resolved Plan: 1. Continue with albuterol and Atrovent nebs 2. Change to oral steroids 3. Patient will need halfway facility placement at this time 4. Continue monitoring cardiac status closely. 5. Repeat chest x-ray in the morning 6. Gentle diuresing; medication for diastolic dysfunction 7. BiPAP at night 8. Anxiolytics 9. GI and DVT prophylaxis Discharge Plan: custodial facility placement Plan to discharge in: greater than 3 days - Advance Directives Does patient have a Living Will: No Does patient have a Durable POA for Healthcare: No - Code Status/Comfort Care Code Status Assessed: Yes Code Status: Full Code Critical Care: No
--- NOTE | 2024-07-09 20:28 | P.PN ---
Date of Service: 07/08/24 Subjective Patient slept last night and patient feels much better. Patient denies any new complaints. Patient clinical symptoms are improved. Continue with BiPAP at night. Clinical symptoms continue to improve and working on discharge planning at this time. Awaiting for nursing home facility placement. Physical Examination - Vital Signs reviewed - Physical Exam General: Awakens to voice. Respiratory: Clear bilaterally except for some end expiratory wheezing Cardiovascular: Regular rate and rhythm with no murmurs Gastrointestinal: Normal bowel sounds, nontender Musculoskeletal: No clubbing, No swelling, No tenderness Neurological: No focal deficits; lethargic; generalized weakness. Assessment & Plan - Problems (Diagnosis) (1) Asthma exacerbation Onset Date: 06/06/18 Current Visit: No Status: Acute (2) Depression with anxiety Onset Date: 06/06/18 Current Visit: No Status: Acute (3) SOB (shortness of breath) Onset Date: 06/06/18 Current Visit: No Status: Acute (4) Sinus tachycardia Current Visit: No Status: Acute (5) Heart failure with preserved ejection fraction Current Visit: Yes Status: Acute (6) VT arrest with ROSC Current Visit: Yes Status: Resolved Plan: Continue plan of care as mentioned below: 1. Continue with albuterol and Atrovent nebs 2. Resume IV steroids and IV antibiotics 3. Patient will need nursing home facility placement at this time 4. Continue monitoring cardiac status closely. 5. Repeat chest x-ray showed questionable infiltrate; will continue to monitor. 6. Gentle diuresing; medication for diastolic dysfunction 7. BiPAP at night 8. Anxiolytics 9. GI and DVT prophylaxis Discharge Plan: [facility] Plan to discharge in: greater than 3 days - Advance Directives Does patient have a Living Will: No Does patient have a Durable POA for Healthcare: No - Code Status/Comfort Care Code Status Assessed: Yes Code Status: Full Code Critical Care: No
--- NOTE | 2024-07-09 20:29 | P.PN ---
Date of Service: 07/09/24 Subjective Patient clinically feeling much better. Her anxiety is much better controlled. She appears to be in better spirits and her anxiety is better controlled. She is looking forward to working with physical therapy tomorrow and try to get herself a little better. Otherwise, patient denies any new complaints. Anxiety is better controlled which directly impacts her respiratory status. Physical Examination - Vital Signs reviewed - Physical Exam General: Awakens to voice. Respiratory: Clear bilaterally except for some end expiratory wheezing Cardiovascular: Regular rate and rhythm with no murmurs Gastrointestinal: Normal bowel sounds, nontender Musculoskeletal: No clubbing, No swelling, No tenderness Neurological: No focal deficits; lethargic; generalized weakness. Assessment & Plan - Problems (Diagnosis) (1) Asthma exacerbation Onset Date: 06/06/18 Current Visit: No Status: Acute (2) Depression with severe anxiety Onset Date: 06/06/18 Current Visit: No Status: Acute (3) Leukocytosis Onset Date: 06/06/18 Current Visit: No Status: Acute (4) Sinus tachycardia Current Visit: No Status: Acute (5) Heart failure with preserved ejection fraction Current Visit: Yes Status: Acute (6) VT arrest with ROSC Current Visit: Yes Status: Resolved Plan: Continue plan of care as mentioned below: 1. Continue with albuterol and Atrovent nebs 2. Resume po steroids and IV antibiotics 3. Patient will need [facility] facility placement at this time 4. Continue monitoring cardiac status closely. 5. Repeat chest x-ray and labs in a.m. and check procalcitonin level. 6. Gentle diuresing; medication for diastolic dysfunction 7. BiPAP at night 8. Anxiolytics 9. GI and DVT prophylaxis Discharge Plan: residential facility placement Plan to discharge in: greater than 3 days - Advance Directives Does patient have a Living Will: No Does patient have a Durable POA for Healthcare: No - Code Status/Comfort Care Code Status Assessed: Yes Code Status: Full Code Critical Care: No
[2024-07-10 04:53] LABS: Absolute Lymphocytes (CBC) 0.9 K/uL (0.7-4.9); Absolute Neutrophil 21.1 K/uL (1.8-8.0); Basophils % 0.1 % (0-1.3); Hematocrit 28.1 % (36.0-45.0); Hemoglobin 9.2 g/dL (12.0-15.0); MCH 30.1 pg (27.0-35.0); MCHC 32.9 g/dL (32.0-36.0); MCV 91.5 fL (80-100); MPV 8.9 fL (7.6-11.3); Monocytes % 4.3 % (3.3-12.3); Neutrophils % 91.6 % (41.7-73.7); Nucleated Red Blood Cells % 0.1 % (0-0); Platelets 227 thou/uL (152-406); RBC Red Blood Cell Count 3.07 M/uL (3.86-4.86); Red Cell Distribution Width 15.7 % (12.1-15.2)
[2024-07-10 05:01] LABS: Albumin 2.1 g/dL (3.4-5.0); Albumin/Globulin Ratio 0.7 (1.1-1.8); Anion Gap 6.2 mEq/L (5.0-15.0); Bilirubin Total 0.7 mg/dL (0.2-1.0); Magnesium 2.4 mg/dL (1.6-2.4); Potassium 4.2 mEq/L (3.5-5.1); Protein, Total 5.1 g/dL (6.4-8.2)
[2024-07-10] MEDS: HYDRALAZINE HCL 20 MG/ML VIAL IV ONE (06:02)
--- NOTE | 2024-07-10 07:08 | RAD REPORT ---
EXAM: Chest Single View HISTORY: pneumonia COMPARISON: 07/09/[address], chest radiograph 07/06/2024 FINDINGS: LUNGS/PLEURA: Blunting of the costophrenic angles bilaterally. Mild basilar airspace disease, left gr eater than right. MEDIASTINUM: The mediastinal silhouette is within normal limits. CARDIAC: The cardiac silhouette is within normal limits. UPPER ABDOMEN: No significant abnormality. BONES: No acute fracture. LINES/TUBES/OTHER: N/A IMPRESSION: Unchanged small bilateral pleural effusions and underlying atelectasis and/or pneumonia.
[2024-07-10] MEDS: RIVAROXABAN 10 MG TABLET PO SCH (10:35)
[2024-07-10] MEDS: METHYLPREDNISOLONE 40 MG INJ IV SCH (10:37)
--- NOTE | 2024-07-10 13:42 | P.PN ---
Subjective Date of Service: 07/10/24 Chief Complaint: COPD exacerbation Subjective: No new changes She is complaining of short of breath and pain all over as a soreness, per nurse at bedside she desaturated down to 86 on BiPAP however I am not sure if pulse oximetry was a correct reading, denied any productive cough or fever. Review of Systems Other: Consitutional; fever(-), chills (-), rigor(-), night sweat(-), unintentional weight loss(-) HEENT; diplopia (-), rhinorrhea (-), epistaxis (-), otorrhea (-), otalgia (-) Respiratory; shortness of breath (+), wheezing (+), cough (-), sputum (-), pleuritic chest pain (-) Cardiovascular; chest pain (+), peripheral edema (-), paroxysmal nocturnal dyspnea (-), orthopnea (-) Gastrointestinal; nausea (-), vomiting (-), abdominal pain (-), diarrhea (-), constipation (-), melena (-), hematochezia (-) Urinary; urinary frequency (-), dysuria (-), urgency (-), flank pain (-), gross hematuria (-), incontinence (-) Skin; rash (-), pruritus (-) [employer]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 General: Fragile, anxious, in no apparent distress,. HEENT: Normocephalic, atraumatic, nonicteric sclera, nonanemic conjunctive. Neck: Supple, without JVD or goiter or thyroid mass. Respiratory: Normal breathing effort, clear to auscultation bilaterally with mild end expiratory wheezing bilaterally,. Cardiovascular: Regular rate and rhythm, S1, S2 normal, no murmur no gallop. Gastrointestinal: Normal bowel sounds, nondistended, nontender, No ascites, , No masses, no hepatosplenomegaly. Extremities l: No clubbing, No peripheral edema, full range of motion, no deformity, no muscle atrophy. Integumentary: No rashes, petechia, suspected lesions. Lymphatics: No axilla or cervical lymphadenopathy. Neurology; alert awake oriented x3, no focal neurologic deficit, normal affection . mood and behavior. Left lower extremity, nonpalpable dorsalis pedis, nonpalpable posterior tibial artery, good perfusion with warm and pink color, full range of motion , motor and sensory grossly normal - Studies Medications List Reviewed: Yes Assessment And Plan - Plan This is 69 years old female patient with past medical history notable for advanced COPD on home oxygen, nonsteroid dependent, generalized anxiety disorder, history of frequent syncopes with no etiology after extensive workup who presented to emergency room for evaluation of shortness of breath, she was found to have pulseless V. tach during hospitalization, successfully resuscitated by CPR without no neurologic deficit #1 acute exacerbation of COPD, resolving #2 acute decompensated heart failure with mild bilateral pleural effusion #3 cardiac arrest due to V. tach #4 severe generalized anxiety disorder #5 peripheral artery disease of the right lower extremity of right tibial artery occlusion by duplex ultrasound #6 BEAU #7 anemia of chronic disease CTA of the chest personally reviewed, no PE, bilateral pleural effusion with compression atelectasis, or leukocytosis contributed to steroid, procalcitonin level less than 0.05, case discussed with Dr. Perez, her motor checker, we will discontinue cefepime, continue methylprednisolone 40 mg IV twice daily, nonbreathing mask during the day and BiPAP at night, continue amiodarone, crayon sawyer, 10 mg rivaroxaban, BEAU improving, Disposition; plan to discharge to SNF
--- NOTE | 2024-07-10 16:04 | P.PN ---
Subjective Date of Service: 07/10/24 Chief Complaint: COPD exacerbation PAtient not doign well very dyspneic Review of Systems General: Weakness Respiratory: Shortness of Breath Physical Examination - Vital Signs Temperature: 98.6 F Blood Pressure: 115/56 Pulse: 69 Respirations: 16 Pulse Ox (%): 91 - Physical Exam General: Alert, Oriented x3 Respiratory: Clear to auscultation bilaterally, Diminished Cardiovascular: No edema, Regular rate/rhythm, Normal S1 S2 Other Physical/Emotional Findings: - Physical Exam. General: Fragile, anxious, in no apparent distress,. HEENT: Normocephalic, atraumatic, nonicteric sclera, nonanemic conjunctive. Neck: Supple, without JVD or goiter or thyroid mass. Respiratory: Normal breathing effort, clear to auscultation bilaterally with mild end expiratory wheezing bilaterally,. Cardiovascular: Regular rate and rhythm, S1, S2 normal, no murmur no gallop. Gastrointestinal: Normal bowel sounds, nondistended, nontender, No ascites, , No masses, no hepatosplenomegaly. Extremities l: No clubbing, No peripheral edema, full range of motion, no deformity, no muscle atrophy. Integumentary: No rashes, petechia, suspected lesions. Lymphatics: No axilla or cervical lymphadenopathy. Neurology; alert awake oriented x3, no focal neurologic deficit, normal affection . mood and behavior. Left lower extremity, nonpalpable dorsalis pedis, nonpalpable posterior tibial artery, good perfusion with warm and pink color, full range of motion , motor and sensory grossly normal - Studies Medications List Reviewed: Yes Assessment And Plan - Current Problems (Diagnosis) (1) COPD exacerbation Current Visit: Yes Status: Acute Plan: Very hypoxic. NE of PE bialteral effusions. Diastolic dysfucntion? Add Sprionolactone. DC Antbiotics, PCT neg/ change ot PO pred. DC Antibioitcs. LAbs rev.
--- NOTE | 2024-07-10 19:55 | P.PN ---
Date of Service: 07/10/24 Vital Signs Temp Pulse Resp BP Pulse Ox 98.6 F 69 16 115/56 L 93 07/10/24 16:04 07/10/24 16:04 07/10/24 18:24 07/10/24 16:04 07/10/24 18:24 Medications Acetaminophen (Acetaminophen 500 Mg Tab) 500 mg PO Q4HP PRN PRN Reason: SHORTNESS OF BREATH Last Admin: 07/03/24 20:48 Dose: 500 mg Acetaminophen (Acetaminophen 325 Mg Tablet) 650 mg PO Q4H PRN PRN Reason: Pain scale 2-4 (Mild) Last Admin: 07/07/24 11:16 Dose: 650 mg Hydrocodone Bitart/Acetaminophen (Hydrocodone/Apap 5/325 Mg Tab) 1 tab PO Q4H PRN PRN Reason: Pain scale 5-7 (Moderate) Last Admin: 07/10/24 18:24 Dose: 1 tab Alprazolam (Alprazolam 0.25 Mg Tablet) 0.125 mg PO TID PRN PRN Reason: ANXIETY Last Admin: 07/10/24 17:48 Dose: 0.125 mg Amiodarone HCl (Amiodarone Hcl 200 Mg Tab) 200 mg PO BID [facility] Last Admin: 07/10/24 10:37 Dose: 200 mg Atorvastatin Calcium (Atorvastatin 40 Mg Tab) 40 mg PO BEDTIME [facility] Last Admin: 07/09/24 23:18 Dose: 40 mg Benzonatate (Benzonatate 100 Mg Cap) 200 mg PO TID PRN PRN Reason: COUGH Last Admin: 07/10/24 18:24 Dose: 200 mg Buspirone HCl (Buspirone Hcl 5 Mg Tablet) 5 mg PO BID [facility] Last Admin: 07/10/24 10:37 Dose: 5 mg Clopidogrel Bisulfate (Clopidogrel 75 Mg Tablet) 75 mg PO DAILY [facility] Last Admin: 07/10/24 10:36 Dose: 75 mg Guaifenesin (Guaifenesin 100 Mg/5 Ml Ucup) 100 mg PO QID PRN PRN Reason: COUGH Last Admin: 07/09/24 12:48 Dose: 100 mg Sodium Chloride (Sodium Chloride) 250 mls @ 999 mls/hr IV Q15M PRN PRN Reason: HYPOTENSION Ipratropium [place] (Ipratropium Brom 0.5mg/2.5ml) 0.5 mg NEB [id number] [facility] Last Admin: 07/10/24 18:40 Dose: 0.5 mg Levalbuterol HCl (Levalbuterol 1.25 Mg/3 Ml Neb) 1.25 mg NEB [id number] [facility] Last Admin: 07/10/24 18:40 Dose: 1.25 mg Lidocaine (Lidocaine 4% Patch) 1 patch TOP DAILY [facility] Last Admin: 07/10/24 10:37 Dose: 1 patch Losartan Potassium (Losartan Potassium 50 Mg Tablet) 50 mg PO BID [facility] Last Admin: 07/10/24 10:37 Dose: 50 mg Metoprolol Tartrate (Metoprolol Tar 25 Mg Tab) 25 mg PO TID [facility] Last Admin: 07/10/24 13:36 Dose: 25 mg Morphine Sulfate (Morphine 2 Mg/Ml Syr) 2 mg IV Q4H PRN PRN Reason: BREAKTHROUGH PAIN Last Admin: 07/08/24 09:27 Dose: 2 mg Nutritional Formula (Ensure Enlive 237 Ml Can) 237 ml PO BID [facility] Last Admin: 07/10/24 09:00 Dose: Not Given Ondansetron HCl (Ondansetron 4 Mg/2 Ml Vial) 4 mg IV Q4H PRN PRN Reason: NAUSEA / VOMITING Last Admin: 06/27/24 21:13 Dose: 4 mg Prednisone (Prednisone 20 Mg Tab) 20 mg PO BID [facility] Rivaroxaban (Rivaroxaban 10 Mg Tablet) 10 mg PO DAILY [facility] Last Admin: 07/10/24 10:35 Dose: 10 mg Roflumilast (Roflumilast 500 Mcg Tablet) 500 mcg PO DAILY [facility] Last Admin: 07/10/24 10:37 Dose: 500 mcg Sodium Chloride (Sodium Chloride 0.9% 10ml Inj) 10 ml IV UD PRN PRN Reason: Diluant Spironolactone (Spironolactone 25 Mg Tablet) 25 mg PO BID [facility] Thiamine HCl (Thiamine Hcl 100 Mg Tablet) 200 mg PO BID [facility] Last Admin: 07/10/24 10:36 Dose: 200 mg Venlafaxine HCl (Venlafaxine Hcl Xr 75 Mg Cap) 75 mg PO DAILY [facility] Last Admin: 07/10/24 10:37 Dose: 75 mg Microbiology Results 06/25/24 13:58 Blood - Blood Aerobic Blood Culture - Final No growth in 5 days. 06/25/24 13:58 Blood - Blood Anaerobic Blood Culture - Final No growth in 5 days. 06/25/24 13:58 Blood - Blood Aerobic Blood Culture - Final No growth in 5 days. 06/25/24 13:58 Blood - Blood Anaerobic Blood Culture - Final No growth in 5 days. 06/25/24 13:58 Nasopharnyx Influenza Type A Antigen Screen - Final 06/25/24 13:58 Nasopharnyx Influenza Type B Antigen Screen - Final Assessment/ Plan: Nephrology Dyspnea with hypoxia No chest pain Persistent pain No acute events overnight Vitals, medications, blood work and imaging reviewed in the chart NAD. MMM. NCAT. Normal Respiratory Effort. S1S2. ND Abd. No C/C/E. No rash. AAO. Normal speech. Ny dark LEFT VENTRICULAR WALL MOTION: NORMAL. DOPPLER/COLOR FLOW: GRADE I DIASTOLIC DYSFUNCTION. 1. NORMAL LEFT VENTRICULAR SYSTOLIC FUNCTION. LEFT VENTRICULAR EJECTION FRACTION 55-60%. NORMAL WALL MOTION. 2. GRADE I DIASTOLIC DYSFUNCTION. 3. NORMAL FILLING PRESSURE. RIGHT ATRIAL PRESSURE 0-5 mmHg. 4. MILD PULMONARY HYPERTENSION. RIGHT VENTRICULAR SYSTOLIC PRESSURE 30-35 mmHg. EXAMINATION: US LOWER EXTREMITIES ARTERIAL DOPPLER BILATERAL CLINICAL INDICATION: Female, 69 years old. r/o arterial occlusion TECHNIQUE: Arterial duplex ultrasound was performed of the legs bilaterally with real-time and Doppler evaluation. [id number]. COMPARISON: No prior exam. FINDINGS: Right leg Doppler: Grayscale: Mild plaque. Common femoral: Waveform: Triphasic Peak systolic velocity (cm/sec): 72 Superficial femoral: Waveform: Biphasic Peak systolic velocity (cm/sec): 58 Popliteal Waveform: Biphasic Peak systolic velocity (cm/sec): 54 Posterior Tibial: Waveform: Biphasic Peak systolic velocity (cm/sec): 49 Dorsalis pedis: Waveform: Biphasic Peak systolic velocity (cm/sec): 18 Left leg Doppler: Grayscale: Mild plaque. Common femoral: Waveform: Biphasic Peak systolic velocity (cm/sec): 62 Superficial femoral: Waveform: Biphasic Peak systolic velocity (cm/sec): 62 Popliteal Waveform: Biphasic Peak systolic velocity (cm/sec): 47 Posterior Tibial: Occluded Dorsalis pedis: Waveform: Biphasic Peak systolic velocity (cm/sec): 34 IMPRESSION: Left lower extremity: Occluded posterior tibial artery. The remaining vessels are patent with multiphasic waveforms. EXAM: Chest Single View HISTORY: resp failure COMPARISON: 06/30/2024 FINDINGS: LUNGS/PLEURA: Small cluster nodules in the right upper lobe are unchanged and chronic. No pleural effusions or pneumothorax. No pulmonary edema. MEDIASTINUM: The mediastinal silhouette is within normal limits. CARDIAC: Cardiac. UPPER ABDOMEN: No significant abnormality. BONES: No acute fracture. LINES/TUBES/OTHER: Endotracheal tube and NG tube removed. IMPRESSION: No evidence of acute cardiopulmonary disease. Interval extubation and removal of the NG tube. Conclusions/Impression: Stage III BEAU likely due to ischemic ATN Non-oliguric CKD II with Proteinuria -No NSAIDs Hypophosphatemia -Replete prn HTN with CKD/ CHF -Continue Metoprolol Acute respiratory failure sp extubation 07-01-24 Cardiac Arrest/ Shock -Bipap prn -Follow up with cardiology -Continue Amiodarone Diastolic CHF, chronic Mild Pulmonary HTN -Lasix prn Hypoalbuminenia -Continue Ensure Anemia in chronic illness -Monitor H&H Hospitalist and Pulmonary notes reviewed
[2024-07-10] MEDS: predniSONE 20 MG TAB PO SCH (20:45)
[2024-07-10] MEDS: SPIRONOLACTONE 25 MG TABLET PO SCH (20:45)
[2024-07-11] MEDS ORDERED: HYDRALAZINE HCL 20 MG/ML VIAL IV PRN (03:31)
--- NOTE | 2024-07-11 12:17 | P.PN ---
Subjective Date of Service: 07/11/24 Chief Complaint: COPD exacerbation No change in patient's condition she still continues to complain of cough congestion weakness and able to ambulate short of breath discomfort is has improved Review of Systems General: Weakness Respiratory: Cough, Shortness of Breath Physical Examination - Vital Signs Temperature: 97.1 F Blood Pressure: 179/75 Pulse: 65 Respirations: 18 Pulse Ox (%): 94 - Physical Exam General: Alert, Oriented x3 Respiratory: Clear to auscultation bilaterally, Diminished Cardiovascular: Regular rate/rhythm, Other (Patient is right foot is cold) Other Physical/Emotional Findings: - Physical Exam. General: Fragile, anxious, in no apparent distress,. HEENT: Normocephalic, atraumatic, nonicteric sclera, nonanemic conjunctive. Neck: Supple, without JVD or goiter or thyroid mass. Respiratory: Normal breathing effort, clear to auscultation bilaterally with mild end expiratory wheezing bilaterally,. Cardiovascular: Regular rate and rhythm, S1, S2 normal, no murmur no gallop. Gastrointestinal: Normal bowel sounds, nondistended, nontender, No ascites, , No masses, no hepatosplenomegaly. Extremities l: No clubbing, No peripheral edema, full range of motion, no deformity, no muscle atrophy. Integumentary: No rashes, petechia, suspected lesions. Lymphatics: No axilla or cervical lymphadenopathy. Neurology; alert awake oriented x3, no focal neurologic deficit, normal affection . mood and behavior. Left lower extremity, nonpalpable dorsalis pedis, nonpalpable posterior tibial artery, good perfusion with warm and pink color, full range of motion , motor and sensory grossly normal - Studies Medications List Reviewed: Yes Assessment And Plan - Current Problems (Diagnosis) (1) COPD exacerbation Current Visit: Yes Status: Acute Plan: Patient admitted with COPD exacerbation oxygenation satisfactory she is only requiring about 2 L of nasal cannula oxygen sections 91% on room air she states feeling very weak congested underlying diastolic heart failure continue with spironolactone and Lasix repeat labs add p.o. Lasix patient has underlying significant anxiety depression pressure elevated labs ordered
[2024-07-11] MEDS: FUROSEMIDE 40 MG TABLET PO SCH (12:57)
--- NOTE | 2024-07-11 13:48 | P.PN ---
Subjective Date of Service: 07/11/24 Chief Complaint: COPD exacerbation Subjective: Improving Patient said that she is feeling better, less short of breath, able to sleep well, minimal cough and phlegm, continuous complaining of pain all over including chest wall. She is concerned about a family history of heart disease Review of Systems Other: Consitutional; fever(-), chills (-), rigor(-), night sweat(-), unintentional weight loss(-) HEENT; diplopia (-), rhinorrhea (-), epistaxis (-), otorrhea (-), otalgia (-) Respiratory; shortness of breath (+), wheezing (+), cough (+), sputum (+), pleuritic chest pain (-) Cardiovascular; chest pain (+), peripheral edema (-), paroxysmal nocturnal dyspnea (-), orthopnea (-) Gastrointestinal; nausea (-), vomiting (-), abdominal pain (-), diarrhea (-), constipation (-), melena (-), hematochezia (-) Urinary; urinary frequency (-), dysuria (-), urgency (-), flank pain (-), gross hematuria (-), incontinence (-) Skin; rash (-), pruritus (-) J[employer]IOR [employer]CH[employer]; headache (-), paresthesia (-), numbness (-), paralysis (-) Physical Examination - Vital Signs Temperature: 97.1 F Blood Pressure: 179/75 Pulse: 65 Respirations: 18 Pulse Ox (%): 94 - Physical Exam Other Physical/Emotional Findings: - Physical Exam. General: Fragile, anxious, in no apparent distress,. HEENT: Normocephalic, atraumatic, nonicteric sclera, nonanemic conjunctive. Neck: Supple, without JVD or goiter or thyroid mass. Respiratory: Normal breathing effort, clear to auscultation bilaterally with mild end expiratory wheezing bilaterally,. Cardiovascular: Regular rate and rhythm, S1, S2 normal, no murmur no gallop. Gastrointestinal: Normal bowel sounds, nondistended, nontender, No ascites, , No masses, no hepatosplenomegaly. Extremities l: No clubbing, No peripheral edema, full range of motion, no deformity, no muscle atrophy. Integumentary: No rashes, petechia, suspected lesions. Lymphatics: No axilla or cervical lymphadenopathy. Neurology; alert awake oriented x3, no focal neurologic deficit, normal affection . mood and behavior. Left lower extremity, nonpalpable dorsalis pedis, nonpalpable posterior tibial artery, good perfusion with warm and pink color, full range of motion , motor and sensory grossly normal - Studies Medications List Reviewed: Yes Assessment And Plan - Plan This is 69 years old female patient with past medical history notable for advanced COPD on home oxygen, nonsteroid dependent, generalized anxiety disorder, history of frequent syncopes with no etiology after extensive workup who presented to emergency room for evaluation of shortness of breath, she was found to have pulseless V. tach during hospitalization, successfully resuscitated by CPR without no neurologic deficit #1 acute exacerbation of COPD, resolving #2 acute decompensated heart failure with mild bilateral pleural effusion #3 cardiac arrest due to V. tach #4 severe generalized anxiety disorder #5 peripheral artery disease of the right lower extremity of right tibial artery occlusion by duplex ultrasound #6 BEAU related to #3 #7 anemia of chronic disease CTA of the chest, no PE, bilateral pleural effusion with compression atelectasis, or leukocytosis contributed to steroid, procalcitonin level less than 0.05, cefepime discontinued, continue methylprednisolone 40 mg IV twice daily, nonbreathing mask during the day and BiPAP at night, continue amiodarone, night monitor, Plavix, 10 mg rivaroxaban, BEAU improving, Disposition; plan to discharge to SNF
--- NOTE | 2024-07-11 16:24 | P.PN ---
Date of Service: 07/11/24 Patient does not want to be resuscitated. She made a request to be on DNR with a nurse in her room as a witness.. In my medical opinion she has a capacity to make her own medical decision. I will change patient's CODE STATUS to DNR
--- NOTE | 2024-07-11 20:31 | P.PN ---
Date of Service: 07/11/24 Vital Signs Temp Pulse Resp BP Pulse Ox 97.1 F 62 17 158/59 H 95 07/11/24 19:55 07/11/24 19:55 07/11/24 19:55 07/11/24 19:55 07/11/24 19:55 Medications Acetaminophen (Acetaminophen 500 Mg Tab) 500 mg PO Q4HP PRN PRN Reason: SHORTNESS OF BREATH Last Admin: 07/03/24 20:48 Dose: 500 mg Acetaminophen (Acetaminophen 325 Mg Tablet) 650 mg PO Q4H PRN PRN Reason: Pain scale 2-4 (Mild) Last Admin: 07/07/24 11:16 Dose: 650 mg Hydrocodone Bitart/Acetaminophen (Hydrocodone/Apap 5/325 Mg Tab) 1 tab PO Q4H PRN PRN Reason: Pain scale 5-7 (Moderate) Last Admin: 07/11/24 06:07 Dose: 1 tab Alprazolam (Alprazolam 0.25 Mg Tablet) 0.125 mg PO TID PRN PRN Reason: ANXIETY Last Admin: 07/11/24 20:12 Dose: 0.125 mg Amiodarone HCl (Amiodarone Hcl 200 Mg Tab) 200 mg PO BID [facility] Last Admin: 07/11/24 20:13 Dose: 200 mg Arformoterol Tartrate (Arformoterol Tartrate 15 Mcg/2 Ml Vial.Neb) 15 mcg NEB BIDRESP [facility] Atorvastatin Calcium (Atorvastatin 40 Mg Tab) 40 mg PO BEDTIME [facility] Last Admin: 07/11/24 20:13 Dose: 40 mg Benzonatate (Benzonatate 100 Mg Cap) 200 mg PO TID PRN PRN Reason: COUGH Last Admin: 07/11/24 14:33 Dose: 200 mg Buspirone HCl (Buspirone Hcl 5 Mg Tablet) 5 mg PO BID [facility] Last Admin: 07/11/24 20:13 Dose: 5 mg Clopidogrel Bisulfate (Clopidogrel 75 Mg Tablet) 75 mg PO DAILY [facility] Last Admin: 07/11/24 10:49 Dose: 75 mg Furosemide (Furosemide 40 Mg Tablet) 40 mg PO DAILY [facility] Last Admin: 07/11/24 12:57 Dose: 40 mg Guaifenesin (Guaifenesin 100 Mg/5 Ml Ucup) 100 mg PO QID PRN PRN Reason: COUGH Last Admin: 07/09/24 12:48 Dose: 100 mg Hydralazine HCl (Hydralazine Hcl 20 Mg/Ml Vial) 10 mg IV Q6HP PRN PRN Reason: Goal to achieve SBP in comment Sodium Chloride (Sodium Chloride) 250 mls @ 999 mls/hr IV Q15M PRN PRN Reason: HYPOTENSION Ipratropium [place] (Ipratropium Brom 0.5mg/2.5ml) 0.5 mg NEB [id number] [facility] Last Admin: 07/11/24 13:02 Dose: 0.5 mg Levalbuterol HCl (Levalbuterol 1.25 Mg/3 Ml Neb) 1.25 mg NEB [id number] [facility] Last Admin: 07/11/24 13:02 Dose: 1.25 mg Lidocaine (Lidocaine 4% Patch) 1 patch TOP DAILY [facility] Last Admin: 07/11/24 10:54 Dose: 1 patch Losartan Potassium (Losartan Potassium 50 Mg Tablet) 50 mg PO BID [facility] Last Admin: 07/11/24 20:12 Dose: 50 mg Metoprolol Tartrate (Metoprolol Tar 25 Mg Tab) 25 mg PO TID [facility] Last Admin: 07/11/24 20:13 Dose: 25 mg Morphine Sulfate (Morphine 2 Mg/Ml Syr) 2 mg IV Q4H PRN PRN Reason: BREAKTHROUGH PAIN Last Admin: 07/11/24 19:25 Dose: 2 mg Nutritional Formula (Ensure Enlive 237 Ml Can) 237 ml PO BID [facility] Last Admin: 07/11/24 20:13 Dose: Not Given Ondansetron HCl (Ondansetron 4 Mg/2 Ml Vial) 4 mg IV Q4H PRN PRN Reason: NAUSEA / VOMITING Last Admin: 06/27/24 21:13 Dose: 4 mg Prednisone (Prednisone 20 Mg Tab) 20 mg PO BID [facility] Last Admin: 07/11/24 20:13 Dose: 20 mg Rivaroxaban (Rivaroxaban 10 Mg Tablet) 10 mg PO DAILY [facility] Last Admin: 07/11/24 10:48 Dose: 10 mg Roflumilast (Roflumilast 500 Mcg Tablet) 500 mcg PO DAILY [facility] Last Admin: 07/11/24 10:49 Dose: 500 mcg Sodium Chloride (Sodium Chloride 0.9% 10ml Inj) 10 ml IV UD PRN PRN Reason: Diluant Spironolactone (Spironolactone 25 Mg Tablet) 25 mg PO BID [facility] Last Admin: 07/11/24 20:13 Dose: 25 mg Thiamine HCl (Thiamine Hcl 100 Mg Tablet) 200 mg PO BID [facility] Last Admin: 07/11/24 20:13 Dose: 200 mg Venlafaxine HCl (Venlafaxine Hcl Xr 75 Mg Cap) 75 mg PO DAILY [facility] Last Admin: 07/11/24 10:48 Dose: 75 mg Microbiology Results 06/25/24 13:58 Blood - Blood Aerobic Blood Culture - Final No growth in 5 days. 06/25/24 13:58 Blood - Blood Anaerobic Blood Culture - Final No growth in 5 days. 06/25/24 13:58 Blood - Blood Aerobic Blood Culture - Final No growth in 5 days. 06/25/24 13:58 Blood - Blood Anaerobic Blood Culture - Final No growth in 5 days. 06/25/24 13:58 Nasopharnyx Influenza Type A Antigen Screen - Final 06/25/24 13:58 Nasopharnyx Influenza Type B Antigen Screen - Final Assessment/ Plan: Nephrology Dyspnea with exertion No chest pain Feeling better today No acute events overnight Vitals, medications, blood work and imaging reviewed in the chart NAD. MMM. NCAT. Normal Respiratory Effort. S1S2. ND Abd. No C/C/E. No rash. AAO. Normal speech. PW medium LEFT VENTRICULAR WALL MOTION: NORMAL. DOPPLER/COLOR FLOW: GRADE I DIASTOLIC DYSFUNCTION. 1. NORMAL LEFT VENTRICULAR SYSTOLIC FUNCTION. LEFT VENTRICULAR EJECTION FRACTION 55-60%. NORMAL WALL MOTION. 2. GRADE I DIASTOLIC DYSFUNCTION. 3. NORMAL FILLING PRESSURE. RIGHT ATRIAL PRESSURE 0-5 mmHg. 4. MILD PULMONARY HYPERTENSION. RIGHT VENTRICULAR SYSTOLIC PRESSURE 30-35 mmHg. EXAMINATION: US LOWER EXTREMITIES ARTERIAL DOPPLER BILATERAL CLINICAL INDICATION: Female, 69 years old. r/o arterial occlusion TECHNIQUE: Arterial duplex ultrasound was performed of the legs bilaterally with real-time and Doppler evaluation. [id number]. COMPARISON: No prior exam. FINDINGS: Right leg Doppler: Grayscale: Mild plaque. Common femoral: Waveform: Triphasic Peak systolic velocity (cm/sec): 72 Superficial femoral: Waveform: Biphasic Peak systolic velocity (cm/sec): 58 Popliteal Waveform: Biphasic Peak systolic velocity (cm/sec): 54 Posterior Tibial: Waveform: Biphasic Peak systolic velocity (cm/sec): 49 Dorsalis pedis: Waveform: Biphasic Peak systolic velocity (cm/sec): 18 Left leg Doppler: Grayscale: Mild plaque. Common femoral: Waveform: Biphasic Peak systolic velocity (cm/sec): 62 Superficial femoral: Waveform: Biphasic Peak systolic velocity (cm/sec): 62 Popliteal Waveform: Biphasic Peak systolic velocity (cm/sec): 47 Posterior Tibial: Occluded Dorsalis pedis: Waveform: Biphasic Peak systolic velocity (cm/sec): 34 IMPRESSION: Left lower extremity: Occluded posterior tibial artery. The remaining vessels are patent with multiphasic waveforms. EXAM: Chest Single View HISTORY: resp failure COMPARISON: 06/30/2024 FINDINGS: LUNGS/PLEURA: Small cluster nodules in the right upper lobe are unchanged and chronic. No pleural effusions or pneumothorax. No pulmonary edema. MEDIASTINUM: The mediastinal silhouette is within normal limits. CARDIAC: Cardiac. UPPER ABDOMEN: No significant abnormality. BONES: No acute fracture. LINES/TUBES/OTHER: Endotracheal tube and NG tube removed. IMPRESSION: No evidence of acute cardiopulmonary disease. Interval extubation and removal of the NG tube. Conclusions/Impression: Stage III BEAU likely due to ischemic ATN Non-oliguric CKD II with Proteinuria -No NSAIDs Hypophosphatemia -Replete prn HTN with CKD/ CHF -Continue Metoprolol -Continue Losartan Acute respiratory failure sp extubation 07-01-24 Cardiac Arrest/ Shock -Bipap prn -Follow up with cardiology -Continue Amiodarone Diastolic CHF, chronic Mild Pulmonary HTN -Lasix prn Hypoalbuminenia -Continue Ensure Anemia in chronic illness -Monitor H&H Hospitalist and Pulmonary notes reviewed
[2024-07-11] MEDS: ARFORMOTEROL TARTRATE 15 MCG/2 ML VIAL.NEB NEB SCH (21:46)
[2024-07-12 05:42] LABS: UR PROTEIN 43.4 mg/dL (<11.9); Urine Protein/Creatinine Ratio 1.01 ratio (<0.15)
[2024-07-12 05:50] LABS: Specific Gravity 1.016 (1.005-1.030); Sqamous Epithelial <5 /HPF (None Seen); Urine Bacteria None Seen /HPF (<20); Urine Bilirubin NEGATIVE (Negative); Urine Blood 3+ (Negative); Urine Clarity Turbid (Clear); Urine Color Light-Yellow (Yellow); Urine Culture Reflex Order NOT NEEDED; Urine Glucose NEGATIVE (Negative); Urine Ketones NEGATIVE (Negative); Urine Micro Reflex YN NO BILL MICROSCOPIC; Urine Nitrite NEGATIVE (Negative); Urine Protein TRACE (Negative); Urine RBC <5 /HPF (None Seen); Urine Urobilinogen Normal (Normal); Urine WBC <5 /HPF (<5); Urine pH 5.5 (5.0-7.0)
[2024-07-12 06:11] LABS: MA/CREAT RATIO 68.2 (< 30.0)
[2024-07-12 06:40] LABS: Absolute Lymphocytes (CBC) 0.6 K/uL (0.7-4.9); Absolute Monocytes 0.6 K/uL (0.1-1.3); Absolute Neutrophil 13.8 K/uL (1.8-8.0); Hematocrit 26.7 % (36.0-45.0); Hemoglobin 8.6 g/dL (12.0-15.0); MCH 29.7 pg (27.0-35.0); MCHC 32.3 g/dL (32.0-36.0); MCV 92.1 fL (80-100); MPV 8.4 fL (7.6-11.3); Monocytes % 4.2 % (3.3-12.3); Neutrophils % 91.8 % (41.7-73.7); Nucleated Red Blood Cells % 0.1 % (0-0); Platelets 197 thou/uL (152-406); Red Cell Distribution Width 15.7 % (12.1-15.2)
[2024-07-12 06:45] LABS: Albumin 2.1 g/dL (3.4-5.0); Anion Gap 5.2 mEq/L (5.0-15.0); Phosphorus 3.7 mg/dL (2.5-4.9); Potassium 4.2 mEq/L (3.5-5.1); Uric Acid 4.4 mg/dL (2.6-6.0)
[2024-07-12] MEDS: predniSONE 10 MG TAB PO SCH (09:16)
[2024-07-12 09:23] LABS: Anisocytosis SLIGHT; Blood Morphology Comment NOTED (NOT SEEN); Platelet Estimate ADEQ; White Blood Cell Scan OK (OK)
--- NOTE | 2024-07-12 21:33 | P.PN ---
Date of Service: 07/12/24 Vital Signs Temp Pulse Resp BP Pulse Ox 97.7 F 65 20 119/51 L 98 07/12/24 16:00 07/12/24 16:00 07/12/24 20:54 07/12/24 16:00 07/12/24 20:54 Medications Acetaminophen (Acetaminophen 500 Mg Tab) 500 mg PO Q4HP PRN PRN Reason: SHORTNESS OF BREATH Last Admin: 07/03/24 20:48 Dose: 500 mg Acetaminophen (Acetaminophen 325 Mg Tablet) 650 mg PO Q4H PRN PRN Reason: Pain scale 2-4 (Mild) Last Admin: 07/07/24 11:16 Dose: 650 mg Hydrocodone Bitart/Acetaminophen (Hydrocodone/Apap 5/325 Mg Tab) 1 tab PO Q4H PRN PRN Reason: Pain scale 5-7 (Moderate) Last Admin: 07/12/24 20:54 Dose: 1 tab Alprazolam (Alprazolam 0.25 Mg Tablet) 0.125 mg PO TID PRN PRN Reason: ANXIETY Last Admin: 07/12/24 17:47 Dose: 0.125 mg Amiodarone HCl (Amiodarone Hcl 200 Mg Tab) 200 mg PO BID [facility] Last Admin: 07/12/24 20:54 Dose: 200 mg Arformoterol Tartrate (Arformoterol Tartrate 15 Mcg/2 Ml Vial.Neb) 15 mcg NEB BIDRESP [facility] Last Admin: 07/12/24 21:15 Dose: 15 mcg Atorvastatin Calcium (Atorvastatin 40 Mg Tab) 40 mg PO BEDTIME [facility] Last Admin: 07/12/24 20:54 Dose: 40 mg Benzonatate (Benzonatate 100 Mg Cap) 200 mg PO TID PRN PRN Reason: COUGH Last Admin: 07/12/24 17:47 Dose: 200 mg Buspirone HCl (Buspirone Hcl 5 Mg Tablet) 5 mg PO BID [facility] Last Admin: 07/12/24 20:54 Dose: 5 mg Clopidogrel Bisulfate (Clopidogrel 75 Mg Tablet) 75 mg PO DAILY [facility] Last Admin: 07/12/24 09:17 Dose: 75 mg Furosemide (Furosemide 40 Mg Tablet) 40 mg PO DAILY [facility] Last Admin: 07/12/24 09:17 Dose: 40 mg Guaifenesin (Guaifenesin 100 Mg/5 Ml Ucup) 100 mg PO QID PRN PRN Reason: COUGH Last Admin: 07/09/24 12:48 Dose: 100 mg Hydralazine HCl (Hydralazine Hcl 20 Mg/Ml Vial) 10 mg IV Q6HP PRN PRN Reason: Goal to achieve SBP in comment Sodium Chloride (Sodium Chloride) 250 mls @ 999 mls/hr IV Q15M PRN PRN Reason: HYPOTENSION Ipratropium [place] (Ipratropium Brom 0.5mg/2.5ml) 0.5 mg NEB [id number] [facility] Last Admin: 07/12/24 21:15 Dose: 0.5 mg Levalbuterol HCl (Levalbuterol 1.25 Mg/3 Ml Neb) 1.25 mg NEB [id number] [facility] Last Admin: 07/12/24 21:15 Dose: 1.25 mg Lidocaine (Lidocaine 4% Patch) 1 patch TOP DAILY [facility] Last Admin: 07/12/24 09:15 Dose: 1 patch Losartan Potassium (Losartan Potassium 50 Mg Tablet) 50 mg PO BID [facility] Last Admin: 07/12/24 20:54 Dose: 50 mg Metoprolol Tartrate (Metoprolol Tar 25 Mg Tab) 25 mg PO TID [facility] Last Admin: 07/12/24 20:54 Dose: 25 mg Morphine Sulfate (Morphine 2 Mg/Ml Syr) 2 mg IV Q4H PRN PRN Reason: BREAKTHROUGH PAIN Last Admin: 07/12/24 17:46 Dose: 2 mg Nutritional Formula (Ensure Enlive 237 Ml Can) 237 ml PO BID [facility] Last Admin: 07/12/24 21:00 Dose: Not Given Ondansetron HCl (Ondansetron 4 Mg/2 Ml Vial) 4 mg IV Q4H PRN PRN Reason: NAUSEA / VOMITING Last Admin: 06/27/24 21:13 Dose: 4 mg Prednisone (Prednisone 10 Mg Tab) 10 mg PO BID [facility] Last Admin: 07/12/24 20:54 Dose: 10 mg Rivaroxaban (Rivaroxaban 10 Mg Tablet) 10 mg PO DAILY [facility] Last Admin: 07/12/24 09:16 Dose: 10 mg Roflumilast (Roflumilast 500 Mcg Tablet) 500 mcg PO DAILY [facility] Last Admin: 07/12/24 09:18 Dose: 500 mcg Sodium Chloride (Sodium Chloride 0.9% 10ml Inj) 10 ml IV UD PRN PRN Reason: Diluant Spironolactone (Spironolactone 25 Mg Tablet) 25 mg PO BID [facility] Last Admin: 07/12/24 21:00 Dose: 25 mg Venlafaxine HCl (Venlafaxine Hcl Xr 75 Mg Cap) 75 mg PO DAILY [facility] Last Admin: 07/12/24 09:17 Dose: 75 mg Microbiology Results 06/25/24 13:58 Blood - Blood Aerobic Blood Culture - Final No growth in 5 days. 06/25/24 13:58 Blood - Blood Anaerobic Blood Culture - Final No growth in 5 days. 06/25/24 13:58 Blood - Blood Aerobic Blood Culture - Final No growth in 5 days. 06/25/24 13:58 Blood - Blood Anaerobic Blood Culture - Final No growth in 5 days. 06/25/24 13:58 Nasopharnyx Influenza Type A Antigen Screen - Final 06/25/24 13:58 Nasopharnyx Influenza Type B Antigen Screen - Final Assessment/ Plan: Nephrology Dyspnea with exertion Cough No chest pain Feeling better today No acute events overnight Vitals, medications, blood work and imaging reviewed in the chart NAD. MMM. NCAT. Normal Respiratory Effort. S1S2. ND Abd. No C/C/E. No rash. AAO. Normal speech. PW medium LEFT VENTRICULAR WALL MOTION: NORMAL. DOPPLER/COLOR FLOW: GRADE I DIASTOLIC DYSFUNCTION. 1. NORMAL LEFT VENTRICULAR SYSTOLIC FUNCTION. LEFT VENTRICULAR EJECTION FRACTION 55-60%. NORMAL WALL MOTION. 2. GRADE I DIASTOLIC DYSFUNCTION. 3. NORMAL FILLING PRESSURE. RIGHT ATRIAL PRESSURE 0-5 mmHg. 4. MILD PULMONARY HYPERTENSION. RIGHT VENTRICULAR SYSTOLIC PRESSURE 30-35 mmHg. EXAMINATION: US LOWER EXTREMITIES ARTERIAL DOPPLER BILATERAL CLINICAL INDICATION: Female, 69 years old. r/o arterial occlusion TECHNIQUE: Arterial duplex ultrasound was performed of the legs bilaterally with real-time and Doppler evaluation. [id number]. COMPARISON: No prior exam. FINDINGS: Right leg Doppler: Grayscale: Mild plaque. Common femoral: Waveform: Triphasic Peak systolic velocity (cm/sec): 72 Superficial femoral: Waveform: Biphasic Peak systolic velocity (cm/sec): 58 Popliteal Waveform: Biphasic Peak systolic velocity (cm/sec): 54 Posterior Tibial: Waveform: Biphasic Peak systolic velocity (cm/sec): 49 Dorsalis pedis: Waveform: Biphasic Peak systolic velocity (cm/sec): 18 Left leg Doppler: Grayscale: Mild plaque. Common femoral: Waveform: Biphasic Peak systolic velocity (cm/sec): 62 Superficial femoral: Waveform: Biphasic Peak systolic velocity (cm/sec): 62 Popliteal Waveform: Biphasic Peak systolic velocity (cm/sec): 47 Posterior Tibial: Occluded Dorsalis pedis: Waveform: Biphasic Peak systolic velocity (cm/sec): 34 IMPRESSION: Left lower extremity: Occluded posterior tibial artery. The remaining vessels are patent with multiphasic waveforms. EXAM: Chest Single View HISTORY: resp failure COMPARISON: 06/30/2024 FINDINGS: LUNGS/PLEURA: Small cluster nodules in the right upper lobe are unchanged and chronic. No pleural effusions or pneumothorax. No pulmonary edema. MEDIASTINUM: The mediastinal silhouette is within normal limits. CARDIAC: Cardiac. UPPER ABDOMEN: No significant abnormality. BONES: No acute fracture. LINES/TUBES/OTHER: Endotracheal tube and NG tube removed. IMPRESSION: No evidence of acute cardiopulmonary disease. Interval extubation and removal of the NG tube. Conclusions/Impression: Stage III BEAU likely due to ischemic ATN Non-oliguric CKD II with Proteinuria -No NSAIDs Hypophosphatemia -Replete prn HTN with CKD/ CHF -Continue Metoprolol -Continue Losartan Acute respiratory failure sp extubation 24 Cardiac Arrest/ Shock -Bipap prn -Follow up with cardiology -Continue Amiodarone Diastolic CHF, chronic Mild Pulmonary HTN -Lasix prn Hypoalbuminenia -Continue Ensure Anemia in chronic illness -Monitor H&H Hospitalist and Pulmonary notes reviewed
[2024-07-13 06:29] LABS: Anion Gap 5.3 mEq/L (5.0-15.0); Potassium 4.3 mEq/L (3.5-5.1)
[2024-07-13 08:44] VITALS: BP 132/58; TEMP 97.7
[2024-07-13 09:41] VITALS: O2SAT 96
--- NOTE | 2024-07-13 12:27 | P.PN ---
Subjective Date of Service: 07/13/24 Chief Complaint: COPD exacerbation Patient is coming complaining of cough congestion chest discomfort weak unable to stand Review of Systems General: Weakness Respiratory: Cough, Shortness of Breath Cardiovascular: Chest Pain Physical Examination - Vital Signs Temperature: 97.7 F Blood Pressure: 132/58 Pulse: 62 Respirations: 16 Pulse Ox (%): 98 - Physical Exam General: Alert, In no apparent distress, Oriented x3 Respiratory: Clear to auscultation bilaterally, Diminished Cardiovascular: No edema, Regular rate/rhythm, Normal S1 S2 (Right foot is still cold) Other Physical/Emotional Findings: - Physical Exam. General: Fragile, anxious, in no apparent distress,. HEENT: Normocephalic, atraumatic, nonicteric sclera, nonanemic conjunctive. Neck: Supple, without JVD or goiter or thyroid mass. Respiratory: Normal breathing effort, clear to auscultation bilaterally with mild end expiratory wheezing bilaterally,. Cardiovascular: Regular rate and rhythm, S1, S2 normal, no murmur no gallop. Gastrointestinal: Normal bowel sounds, nondistended, nontender, No ascites, , No masses, no hepatosplenomegaly. Extremities l: No clubbing, No peripheral edema, full range of motion, no deformity, no muscle atrophy. Integumentary: No rashes, petechia, suspected lesions. Lymphatics: No axilla or cervical lymphadenopathy. Neurology; alert awake oriented x3, no focal neurologic deficit, normal affection . mood and behavior. Left lower extremity, nonpalpable dorsalis pedis, nonpalpable posterior tibial artery, good perfusion with warm and pink color, full range of motion , motor and sensory grossly normal - Studies Medications List Reviewed: Yes Assessment And Plan - Current Problems (Diagnosis) (1) COPD exacerbation Current Visit: Yes Status: Acute Plan: Patient has COPD exacerbation improving still complaining of chest discomfort from a prior intubation he is on maximum bronchodilator therapy had a PEP valve BiPAP as needed also may have underlying diastolic heart failure continue with Lasix
--- NOTE | 2024-07-13 13:26 | P.DS ---
Admission Date: 06/25/24 Discharge Date: 07/13/24 Disposition: TRANSFER TO RESIDENTIAL Discharge Condition: GOOD Reason for Admission: COPD exacerbation Consultations: Dr. Jen Collins Brief History of Present Illness: Patient is a 69-year-old female with past medical history of chronic asthma on prednisone, hypertension, anxiety, depression, history of pneumonia with septic shock, ADD, came in with fever and shortness of breath. Patient has once again run out of her prednisone, Effexor, Xanax and other medications. She states she has been running fevers and she was hoping to get prednisone called in but she was unsuccessful. She does not have her inhaler nor her anxiolytics. Whenever she gets short of breath like this she tends to use her inhalers as well as her prednisone with some anxiolytics which help alleviate her symptoms. She has been out of them for the last week. She decided to come back into the ER for further evaluation. In the ER, she was given nebs, steroids, and antibiotics. Patient clinical symptoms have improved and she feels much better. However, she remains hypoxic and tachypneic. She will be admitted to the hospital for inpatient hospitalization. Hospital Course: This is 69 years old female patient with past medical history notable for advanced COPD on home oxygen, steroid dependent, generalized anxiety disorder, history of frequent syncopes with no etiology after extensive workup who presented to emergency room for evaluation of shortness of breath, she was found to have pulseless V. tach during hospitalization, successfully resuscitated by CPR without no neurologic deficit #1 acute exacerbation of COPD, resolving #2 acute decompensated heart failure with mild bilateral pleural effusion #3 cardiac arrest due to V. tach #4 severe generalized anxiety disorder #5 peripheral artery disease of the right lower extremity of right tibial artery occlusion by duplex ultrasound #6 BEAU related to #3 #7 anemia of chronic disease CTA of the chest, no PE, bilateral pleural effusion with compression atelectasis, or leukocytosis contributed to steroid, procalcitonin level less than 0.05, cefepime discontinued, continue methylprednisolone 40 mg IV twice daily, nonbreathing mask during the day and BiPAP at night, continue amiodarone, monitoring engineer, Plavix, 10 mg rivaroxaban, BEAU improving, Disposition; plan to discharge to SNF Vital Signs/Physical Exam: Temp Pulse Resp BP Pulse Ox 97.7 F 62 16 132/58 L 98 07/13/24 12:28 07/13/24 12:28 07/13/24 12:28 07/13/24 12:28 07/13/24 12:28 General: Alert, In no apparent distress, Oriented x3, Cooperative HEENT: Atraumatic, Normocephalic Neck: Supple Respiratory: Normal air movement Cardiovascular: Regular rate/rhythm, Normal S1 S2 Capillary refill: Other Gastrointestinal: Normal bowel sounds, Soft and benign Musculoskeletal: No clubbing Integumentary: No rashes, Other (Mild lower extremity distal cyanosis, PAD) Neurological: Normal speech, Normal tone, Normal affect, Abnormal strength Lymphatics: No axilla or inguinal lymphadenopathy External genitalia: Deferred Rectal: Deferred Laboratory Data at Discharge: WBC 15.10 thou/uL (4.3-10.9) H 07/12/24 06:22 Hgb 8.6 g/dL (12.0-15.0) L 07/12/24 06:22 Hct 26.7 % (36.0-45.0) L 07/12/24 06:22 Plt Count 197 thou/uL (152-406) 07/12/24 06:22 PT 11.8 SECONDS (9.4-12.5) 06/25/24 13:58 INR 1.06 06/25/24 13:58 APTT 77.6 SECONDS (24.3-36.9) H 07/01/24 05:00 Sodium 142 mEq/L (136-145) 07/13/24 06:00 Potassium 4.3 mEq/L (3.5-5.1) 07/13/24 06:00 BUN 39 mg/dL (7-18) H 07/13/24 06:00 Creatinine 1.36 mg/dL (0.55-1.02) H 07/13/24 06:00 Glucose 148 mg/dL (74-106) H 07/13/24 06:00 Uric Acid 4.4 mg/dL (2.6-6.0) 07/12/24 06:22 Phosphorus 3.7 mg/dL (2.5-4.9) 07/12/24 06:22 Magnesium 2.4 mg/dL (1.6-2.4) 07/10/24 04:35 Total Bilirubin 0.7 mg/dL (0.2-1.0) 07/10/24 04:35 AST 28 U/L (15-37) 07/10/24 04:35 ALT 23 U/L (13-56) 07/10/24 04:35 Alkaline Phosphatase 124 U/L (45-117) H 07/10/24 04:35 Lipase 37 U/L (13-75) 06/25/24 13:58 Home Medications: Fluticasone/Umeclidin/Vilanter [Trelegy Ellipta 100-62.5-25] 1 puff PO BEDTIME PRN 07/17/22 Benzonatate [Tessalon Perle*] 100 mg PO TID PRN #60 cap 01/07/24 Albuterol Inhaler [Ventolin Inhaler*] 2 puff IH Q6H PRN #1 inh 01/08/24 Alprazolam [Xanax] 1 mg PO BID PRN #60 tab 03/15/24 Ipratropium Neb [Atrovent*] 0.5 mg NEB [id number] PRN 03/29/24 Venlafaxine HCl *Xr* [Effexor XR] 75 mg PO DAILY 03/29/24 Amiodarone HCl [Cordarone*] 200 mg PO BID #180 tab 07/13/24 Atorvastatin Calcium [Lipitor] 40 mg PO BEDTIME #90 tab 07/13/24 Clopidogrel Bisulfate [Plavix*] 75 mg PO DAILY #90 tab 07/13/24 Ensure Enlive 237 ml PO BID #60 can 07/13/24 Furosemide [Lasix*] 40 mg PO DAILY #90 tab 07/13/24 Lidocaine 4% Patch [Lidoderm 5% Patch*] 1 patch TOP DAILY #10 pat 07/13/24 Losartan Potassium [Cozaar*] 50 mg PO BID #180 tab 07/13/24 Metoprolol Tartrate [Lopressor*] 25 mg PO TID #270 tab 07/13/24 Mometasone/Formoterol [Dulera 200 Mcg/5 Mcg Inhaler] 2 puff IH BID #1 inhaler 07/13/24 Rivaroxaban [Xarelto*] 10 mg PO DAILY #90 tab 07/13/24 Roflumilast [Daliresp*] 500 mcg PO DAILY #90 tab 07/13/24 Spironolactone [Aldactone*] 25 mg PO BID #180 tab 07/13/24 predniSONE [Deltasone*] 10 mg PO BID #60 tab 07/13/24 New Medications: Spironolactone [Aldactone*] 25 mg PO BID #180 tab Amiodarone HCl [Cordarone*] 200 mg PO BID #180 tab Losartan Potassium [Cozaar*] 50 mg PO BID #180 tab Roflumilast [Daliresp*] 500 mcg PO DAILY #90 tab predniSONE [Deltasone*] 10 mg PO BID #60 tab Mometasone/Formoterol [Dulera 200 Mcg/5 Mcg Inhaler] 2 puff IH BID #1 inhaler Ensure Enlive 237 ml PO BID #60 can Furosemide [Lasix*] 40 mg PO DAILY #90 tab Lidocaine 4% Patch [Lidoderm 5% Patch*] 1 patch TOP DAILY #10 pat Atorvastatin Calcium [Lipitor] 40 mg PO BEDTIME #90 tab Metoprolol Tartrate [Lopressor*] 25 mg PO TID #270 tab Clopidogrel Bisulfate [Plavix*] 75 mg PO DAILY #90 tab Rivaroxaban [Xarelto*] 10 mg PO DAILY #90 tab Diet: AHA Activity: Fall precautions Followup: NONE,NONE [Primary Care Provider] -
--- NOTE | 2024-07-13 20:51 | P.PN ---
Date of Service: 07/13/24 Vital Signs Temp Pulse Resp BP Pulse Ox 97.7 F 62 16 132/58 L 98 07/13/24 12:28 07/13/24 12:28 07/13/24 12:28 07/13/24 12:28 07/13/24 12:28 Microbiology Results 06/25/24 13:58 Blood - Blood Aerobic Blood Culture - Final No growth in 5 days. 06/25/24 13:58 Blood - Blood Anaerobic Blood Culture - Final No growth in 5 days. 06/25/24 13:58 Blood - Blood Aerobic Blood Culture - Final No growth in 5 days. 06/25/24 13:58 Blood - Blood Anaerobic Blood Culture - Final No growth in 5 days. 06/25/24 13:58 Nasopharnyx Influenza Type A Antigen Screen - Final 06/25/24 13:58 Nasopharnyx Influenza Type B Antigen Screen - Final Assessment/ Plan: Nephrology Dyspnea with exertion Cough No chest pain Feeling better today No acute events overnight Vitals, medications, blood work and imaging reviewed in the chart NAD. MMM. NCAT. Normal Respiratory Effort. S1S2. ND Abd. No C/C/E. No rash. AAO. Normal speech. PW medium LEFT VENTRICULAR WALL MOTION: NORMAL. DOPPLER/COLOR FLOW: GRADE I DIASTOLIC DYSFUNCTION. 1. NORMAL LEFT VENTRICULAR SYSTOLIC FUNCTION. LEFT VENTRICULAR EJECTION FRACTION 55-60%. NORMAL WALL MOTION. 2. GRADE I DIASTOLIC DYSFUNCTION. 3. NORMAL FILLING PRESSURE. RIGHT ATRIAL PRESSURE 0-5 mmHg. 4. MILD PULMONARY HYPERTENSION. RIGHT VENTRICULAR SYSTOLIC PRESSURE 30-35 mmHg. EXAMINATION: US LOWER EXTREMITIES ARTERIAL DOPPLER BILATERAL CLINICAL INDICATION: Female, 69 years old. r/o arterial occlusion TECHNIQUE: Arterial duplex ultrasound was performed of the legs bilaterally with real-time and Doppler evaluation. [id number]. COMPARISON: No prior exam. FINDINGS: Right leg Doppler: Grayscale: Mild plaque. Common femoral: Waveform: Triphasic Peak systolic velocity (cm/sec): 72 Superficial femoral: Waveform: Biphasic Peak systolic velocity (cm/sec): 58 Popliteal Waveform: Biphasic Peak systolic velocity (cm/sec): 54 Posterior Tibial: Waveform: Biphasic Peak systolic velocity (cm/sec): 49 Dorsalis pedis: Waveform: Biphasic Peak systolic velocity (cm/sec): 18 Left leg Doppler: Grayscale: Mild plaque. Common femoral: Waveform: Biphasic Peak systolic velocity (cm/sec): 62 Superficial femoral: Waveform: Biphasic Peak systolic velocity (cm/sec): 62 Popliteal Waveform: Biphasic Peak systolic velocity (cm/sec): 47 Posterior Tibial: Occluded Dorsalis pedis: Waveform: Biphasic Peak systolic velocity (cm/sec): 34 IMPRESSION: Left lower extremity: Occluded posterior tibial artery. The remaining vessels are patent with multiphasic waveforms. EXAM: Chest Single View HISTORY: resp failure COMPARISON: 06/30/2024 FINDINGS: LUNGS/PLEURA: Small cluster nodules in the right upper lobe are unchanged and chronic. No pleural effusions or pneumothorax. No pulmonary edema. MEDIASTINUM: The mediastinal silhouette is within normal limits. CARDIAC: Cardiac. UPPER ABDOMEN: No significant abnormality. BONES: No acute fracture. LINES/TUBES/OTHER: Endotracheal tube and NG tube removed. IMPRESSION: No evidence of acute cardiopulmonary disease. Interval extubation and removal of the NG tube. Conclusions/Impression: Stage III BEAU likely due to ischemic ATN Non-oliguric CKD II with Proteinuria -No NSAIDs Hypophosphatemia -Replete prn HTN with CKD/ CHF -Continue Metoprolol -Continue Losartan Acute respiratory failure sp extubation 07-01-24 Cardiac Arrest/ Shock -Bipap prn -Follow up with cardiology -Continue Amiodarone Diastolic CHF, chronic Mild Pulmonary HTN -Lasix prn Hypoalbuminenia -Continue Ensure Anemia in chronic illness -Monitor H&H Hospitalist and Pulmonary notes reviewed
== END 2024-07-13 15:45 | DRG 208 ==
LOC: ER 13:06 → ERHOLD 16:13 → 2ND 18:14 → 3RD-ICU 06-29 04:56 → 4TH 07-06 14:50
PROVIDERS: ADMIT Hospitalist; ATTEND Internal Medicine
PROC: 5A1945Z Respiratory Ventilation, 24-96 Consecutive Hours (ICD-10-PCS; principal; 2024-06-29)
PROC: 5A12012 Performance of Cardiac Output, Single, Manual (ICD-10-PCS; 2024-06-29)
PROC: 0BH17EZ Insertion of Endotracheal Airway into Trachea, Via Natural or Artificial Opening (ICD-10-PCS; 2024-06-29)
PROC: 0T9B70Z Drainage of Bladder with Drainage Device, Via Natural or Artificial Opening (ICD-10-PCS; 2024-06-29)
PROC: 02HV33Z Insertion of Infusion Device into Superior Vena Cava, Percutaneous Approach (ICD-10-PCS; 2024-06-29)
PROC: 0DH67UZ Insertion of Feeding Device into Stomach, Via Natural or Artificial Opening (ICD-10-PCS; 2024-06-29)
PROC: 4A033R1 Measurement of Arterial Saturation, Peripheral, Percutaneous Approach (ICD-10-PCS; 2024-06-30)
PROC: 5A09557 Assistance with Respiratory Ventilation, Greater than 96 Consecutive Hours, Continuous Positive Airway Pressure (ICD-10-PCS; 2024-06-30)
PROC: 3E043XZ Introduction of Vasopressor into Central Vein, Percutaneous Approach (ICD-10-PCS; 2024-07-04)
DX: J44.1 Chronic obstructive pulmonary disease with (acute) exacerbation (principal); I46.9 Cardiac arrest, cause unspecified; I21.4 Non-ST elevation (NSTEMI) myocardial infarction; J96.01 Acute respiratory failure with hypoxia; N17.0 Acute kidney failure with tubular necrosis; R57.8 Other shock; I50.33 Acute on chronic diastolic (congestive) heart failure; J45.901 Unspecified asthma with (acute) exacerbation; I47.20 Ventricular tachycardia, unspecified; I13.0 Hypertensive heart and chronic kidney disease with heart failure and stage 1 through stage 4 chronic kidney disease, or unspecified chronic kidney disease; I50.32 Chronic diastolic (congestive) heart failure; F05 Delirium due to known physiological condition; N18.2 Chronic kidney disease, stage 2 (mild); D63.1 Anemia in chronic kidney disease; E88.09 Other disorders of plasma-protein metabolism, not elsewhere classified; F41.9 Anxiety disorder, unspecified; E66.9 Obesity, unspecified; I73.9 Peripheral vascular disease, unspecified; E83.39 Other disorders of phosphorus metabolism; F41.8 Other specified anxiety disorders; K21.9 Gastro-esophageal reflux disease without esophagitis; M19.90 Unspecified osteoarthritis, unspecified site; I27.20 Pulmonary hypertension, unspecified; F90.9 Attention-deficit hyperactivity disorder, unspecified type; Z66 Do not resuscitate; Z78.1 Physical restraint status; Z63.5 Disruption of family by separation and divorce; Z79.82 Long term (current) use of aspirin; Z68.24 Body mass index [BMI] 24.0-24.9, adult; Z79.52 Long term (current) use of systemic steroids; Z90.49 Acquired absence of other specified parts of digestive tract; Z79.899 Other long term (current) drug therapy; Z95.810 Presence of automatic (implantable) cardiac defibrillator
CPT/HCPCS: 36415; 36569; 36600; 71045; 71275; 74018; 80048; 80053; 80069; 80076; 81001; 82043; 82570; 82805; 82947; 83605; 83690; 83735; 83880; 84100; 84145; 84156; 84484; 84550; 85018; 85025; 85379; 85610; 85730; 86022; 87040; 87804; 87811; 92610; 92950; 93005; 93306; 93925; 93970; 94002; 94003; 94660; 94760; 96361; 96374; 96375; 97110; 97116; 97161; 97530; 99285; J0282; J0360; J0692; J0696; J1171; J1265; J1650; J1940; J2003; J2250; J2270; J2405; J2470; J2704; J2919; J3010; J3535; J7030; J7040; J7060; J7512; J7605; J7613; J7614; J7644; Q9967

== ENCOUNTER 2024-09-06 01:30 | Inpatient (IN) | payer OTHER ==
[2024-09-06 03:01] LABS: Absolute Monocytes 0.1 K/uL (0.1-1.3); Absolute Neutrophil 8.9 K/uL (1.8-8.0); Basophils % 0.4 % (0-1.3); Eosinophils % 0.2 % (0-4.4); Hematocrit 23.5 % (36.0-45.0); Hemoglobin 7.4 g/dL (12.0-15.0); Lymphocytes % 9.5 % (15.3-44.8); MCH 28.9 pg (27.0-35.0); MCHC 31.6 g/dL (32.0-36.0); MCV 91.7 fL (80-100); MPV 8.9 fL (7.6-11.3); Monocytes % 1.4 % (3.3-12.3); Neutrophils % 88.5 % (41.7-73.7); Nucleated RBC Absolute Count 0.1 (0-0); Platelets 205 thou/uL (152-406); RBC Red Blood Cell Count 2.57 M/uL (3.86-4.86); Red Cell Distribution Width 20.6 % (12.1-15.2)
[2024-09-06 03:52] LABS: Albumin 1.3 g/dL (3.4-5.0); Albumin/Globulin Ratio 0.3 (1.1-1.8); Bilirubin Direct 0.6 mg/dL (0-0.2); Bilirubin Indirect, Calculated 0.4 mg/dL (0.2-0.8); Protein, Total 5.3 g/dL (6.4-8.2); Troponin High Sensitivity 402.4 pg/mL (<58.9)
[2024-09-06] MEDS ORDERED: NA CHLORIDE 0.9% 1,000 ML ONE ×2 (04:29→06:22)
[2024-09-06 04:34] LABS: Band Neutrophils 25 % (0-1); Differential Total Cells Count 100; Eosinophils 1 % (0-3); Lymphocytes 10 % (15-42); Monocytes 0 % (0-10); Segmented Neutrophils 64 % (40-80)
[2024-09-06 04:35] LABS: Anisocytosis 1+; Blood Morphology Comment NOTED (NOT SEEN); Platelet Estimate ADEQ; Polychromasia 2+
[2024-09-06] MEDS ORDERED: CEFTRIAXONE 1000 MG/VIAL ONE (05:00)
--- NOTE | 2024-09-06 06:01 | RAD REPORT ---
CLINICAL HISTORY: Altered mental status. COMPARISON: CT Head 03/31/2024. TECHNIQUE: CT HEAD WITHOUT IV CONTRAST on 09/06/2024 1:49 AM SPECIAL DELIVERY CARRIER This exam was performed according to our departmental dose-optimization program, which includes autom ated exposure control, adjustment of the mA and/or kV according to patient size and/or use of iterative reconstruction technique. FINDINGS: There is no acute hemorrhage, mass effect or midline shift. Valderrama-white differentiation is preserved. There is no hydrocephalus. There is no significant volume loss for age. The calvarium is intact. Orbits and globes are unremarkable. There is mild thickening of the right ma xillary sinus as well as of the left sphenoid sinus. Right sphenoid sinus and many of the right ethmoid air cells are opacified. There is fluid throughout both sets of mastoid air cells. IMPRESSION: No acute intracranial findings. Electronically signed by: Telly Escobar MD 09/06/2024 05:49 AM SPECIAL DELIVERY CARRIER RP Due to temporary technical issues with the PACS/Yatra reporting system, reports are being dasia d by the in-house radiologist without review as a courtesy to ensure prompt reporting the interpreting radiologist is fully responsible for the content of the report. Transcribed Date/Time: 09/06/2024 6:01 AM
--- NOTE | 2024-09-06 06:05 | RAD REPORT ---
EXAM DESCRIPTION: Chest Single View CLINICAL HISTORY: COUGH COMPARISON: None TECHNIQUE: Single AP view of the chest. FINDINGS: Lung volumes adequate. Cardiac silhouette is normal in size. No pneumothorax. No large pleural effusion. Diffuse bilateral patchy airspace disease. No acute bony finding. IMPRESSION: Diffuse bilateral patchy airspace disease, concerning for atypical/viral pneumonia. Electronically signed by: Treasure Danielson MD 09/06/2024 05:33 AM [facility] [id number] Due to temporary technical issues with the PACS/Rayn reporting system, reports are being dasia d by the in-house radiologist without review as a courtesy to ensure prompt reporting the interpreting radiologist is fully responsible for the content of the report. Transcribed Date/Time: 09/06/2024 6:05 AM
--- NOTE | 2024-09-06 06:05 | RAD REPORT ---
CLINICAL HISTORY: Abdominal pain. COMPARISON: XR Chest 09/06/2024, CT Chest 08/27/[address] Abdomen Pelvis 05/11/2024. TECHNIQUE: CT CHEST ABDOMEN PELVIS WITHOUT IV CONTRAST on 09/06/2024 3:46 AM ALUMINUM MOLDER This exam was performed according to our departmental dose-optimization program, which includes autom ated exposure control, adjustment of the mA and/or kV according to patient size and/or use of iterative reconstruction technique. FINDINGS: Chest: The heart is normal in size. There is no pericardial effusion. Intrathoracic lymph nodes are n ot enlarged. There is no pleural effusion, pleural thickening or pneumothorax. Central airways are patent. There a re extensive areas of airspace disease throughout the upper lobes as well as to a lesser degree the lower lobes. There are postoperative changes at the GE junction. Abdomen: Liver is slightly hyperdense and nodular. There is no biliary dilatation. The pancreas and s pleen are normal in appearance. The adrenal glands and kidneys are unremarkable. Abdominal aorta is densely calcified without aneurysm. There is no free air. There is no retroperiton eal adenopathy. Pelvis: There is mild diverticulosis of the distal colon. Urinary bladder is unremarkable. There is n o free fluid. Uterus is normal in size. Appendix is not clearly seen. Skeleton: There is an old fracture of the lower sternum. There are multiple healing bilateral rib fra ctures. IMPRESSION: Extensive bilateral pneumonia. No definite acute inflammatory process in the abdomen or pelvis. Electronically signed by: Telly Escobar MD 09/06/2024 06:00 AM ALUMINUM MOLDER Due to temporary technical issues with the PACS/F2G reporting system, reports are being dasia d by the in-house radiologist without review as a courtesy to ensure prompt reporting the interpreting radiologist is fully responsible for the content of the report. Transcribed Date/Time: 09/06/2024 6:04 AM
--- NOTE | 2024-09-06 06:13 | EDPHYS ---
Physician Documentation [facility] Name: Irma Cain Age: 69 yrs Sex: Female : 1955 Arrival Date: 09/06/2024 Time: 01:30 Bed 19 Private MD: ED Physician Rey Sams HPI: 09/06 01:49 This 69 yrs old Female presents to ER via Unassigned with complaints of ec2 Altered Mental Status. 01:49 Patient arrives today due to concern for altered mental status. Patient with cardiac ec2 arrest several months ago, unclear baseline mental status however reported from EMS and [facility] was that she is deteriorated. No reported falls or injuries or trauma. Unclear what patient's baseline is.. Historical: - Allergies: 03:06 Aspirin; aa10 03:06 Ibuprofen; aa10 03:06 Benadryl; aa10 03:06 Neosporin ([id number]); aa10 03:06 Talwin; aa10 03:06 NSAIDS; aa10 - Home Meds: 03:06 Adderall XR Oral [Active]; Albuterol Inhl [Active]; Ambien Oral [Active]; Effexor Oral aa10 [Active]; Prednisone Oral [Active]; Xanax Oral [Active]; - PMHx: 03:06 ADD/ADHD; Anxiety; Asthma; depressive disorder; Hypertensive disorder; UNMEDICATED; aa10 Pneumonia; - PSHx: 03:06 Cholecystectomy; aa10 - Immunization history:: Adult Immunizations unknown. - Infectious Disease History:: Denies. - Social history:: Smoking status: unknown. ROS: 01:50 Constitutional: as per hpi ec2 Exam: 01:50 Constitutional: GEN: NAD Head: atraumatic Eyes: EOMI Ears: External ears are ec2 normal. CV: regular rate LUNGS: no respiratory distress ABD: non-distended, soft, nontender guarding. : Performed under nursing supervision, melena on rectal exam MSK: no evidence of trauma Vital Signs: 02:14 BP 114 / 49; Pulse 81; Resp 10 S; Temp 99; Pulse Ox 97% on 2 lpm NC; aa10 03:03 BP 114 / 56; Pulse 80; Resp 20; Temp 99; Pulse Ox 99% on 2 lpm NC; aa10 04:22 BP 121 / 38; Pulse 81; Resp 15; Pulse Ox 91% on 2 lpm NC; aa10 05:36 BP 113 / 44; Pulse 80; Resp 16 S; Temp 98(O); Pulse Ox 90% on 2 lpm NC; aa10 06:09 BP 131 / 46; Pulse 73; Resp 12; Temp 98; Pulse Ox 95% on 2 lpm NC; MAP 70 mmHg; aa10 07:21 BP 92 / 66; Pulse 73; Resp 14 S; Pulse Ox 91% on 4 lpm NC; kc6 Procedures: 04:47 Central Line: the site was prepped with Betadine, in sterile fashion, a triple lumen ec2 catheter was inserted, in the left femoral vein, in 1 attempts. placement was verified, by blood return, the site was dressed with Tegaderm, the patient tolerated the procedure, well. MDM: 01:37 Medical Screening Exam initiated ec2 01:50 Data reviewed: vital signs, nurses notes. ED course: Patient arrives today for ec2 evaluation of altered mental status. Will obtain lab work, EKG, chest x-ray as well as CT scan of the head. Differential include processes such as UTI, electrolyte disturbances, acute kidney injury. 03:37 ED course: EKG independently reviewed and interpreted by me, shows normal sinus rhythm, ec2 rate of 83, no acute ST segment elevations, intervals are brought in for QTc prolongation at 533.. 04:45 ED course: Patient with difficult IV placement. I attempted EJ however quickly ec2 collapsed. Subsequently placed a central line in the left groin without issue. Lab work is remarkable for anemia with hemoglobin of 7.4. When compared to external labs, patient is anemic. Metabolic profile shows renal dysfunction with a creatinine of 3.1. GFR of 16. Troponin is elevated at 402. LFTs are elevated as well. Will transfuse a unit of blood given the anemia. Patient does have melena on examination.. 04:48 ED course: Patient is nonverbal, no surrogate here to consent, given emergent nature, ec2 anemia, troponin elevation, patient requires IV access. I proceeded with emergent central line placement.. 06:11 ED course: CT imaging pertinent for pneumonia, otherwise no acute intra-abdominal ec2 pathology. Given anemia and melena, will give the patient Protonix push and drip. Consulted gastroenterology who will evaluate the patient for upper GI bleed. Will admit the patient for continued management for pneumonia, GI bleed, anemia.. 09/06 01:38 Order name: Basic Metabolic Panel; Complete Time: 03:53 ec2 09/06 01:38 Order name: CBC with Diff; Complete Time: 04:44 ec2 09/06 01:38 Order name: Troponin HS; Complete Time: 03:53 ec2 09/06 01:38 Order name: UAM ec2 09/06 01:51 Order name: LFT's; Complete Time: 03:53 ec2 09/06 03:06 Order name: Manual Differential; Complete Time: 04:44 EDMS 09/06 03:33 Order name: Glucose, Ancillary Testing; Complete Time: 03:45 EDMS 09/06 04:44 Order name: Blood Culture Adult (2) ec2 09/06 04:44 Order name: Lactate w/ 2H reflex if indic.; Complete Time: 05:44 ec2 09/06 04:44 Order name: Type And Screen ec2 09/06 05:29 Order name: Packed RBC Leukored EDMS 09/06 06:05 Order name: PT-INR ec2 09/06 06:05 Order name: Ptt, Activated ec2 09/06 06:33 Order name: Basic Metabolic Panel EDMS 09/06 06:33 Order name: CBC with Automated Diff EDMS 09/06 06:33 Order name: Protime (+INR) EDMS 09/06 06:33 Order name: PTT, Activated Partial Thromb EDMS 09/06 06:33 Order name: Troponin High Sensitivity EDMS 09/06 06:33 Order name: Troponin High Sensitivity EDMS 09/06 06:33 Order name: Troponin High Sensitivity EDMS 09/06 06:33 Order name: Troponin High Sensitivity EDMS 09/06 01:38 Order name: XRAY Chest (1 view) ec2 09/06 01:49 Order name: CT Head Brain wo Cont ec2 09/06 05:24 Order name: Chest Abd Pelvis Wo Con EDMS 09/06 06:33 Order name: CONS Physician Consult EDMS 09/06 06:33 Order name: EKG Electrocardiogram EDMS 09/06 06:33 Order name: EKG Electrocardiogram EDMS 09/06 06:33 Order name: EKG Electrocardiogram EDMS 09/06 06:33 Order name: EKG Electrocardiogram EDMS 09/06 06:33 Order name: EKG Electrocardiogram EDMS 09/06 06:33 Order name: EKG Electrocardiogram EDMS 09/06 06:33 Order name: EKG Electrocardiogram EDMS 09/06 06:33 Order name: EKG Electrocardiogram EDMS 09/06 06:33 Order name: EKG Electrocardiogram EDMS 09/06 06:33 Order name: EKG Electrocardiogram EDMS 09/06 06:33 Order name: EKG Electrocardiogram EDMS 09/06 01:38 Order name: Cardiac monitoring; Complete Time: 01:41 ec2 09/06 01:38 Order name: EKG - Nurse/Tech; Complete Time: 04:18 ec2 09/06 01:38 Order name: IV Saline Lock; Complete Time: 04:46 ec2 09/06 01:38 Order name: Labs collected and sent; Complete Time: 02:32 ec2 09/06 01:38 Order name: O2 Per Protocol; Complete Time: 01:41 ec2 09/06 01:38 Order name: O2 Sat Monitoring; Complete Time: 01:41 ec2 09/06 04:44 Order name: Consent for Blood Transfusion; Complete Time: 04:59 ec2 09/06 05:07 Order name: Central Line Dressing Kit; Complete Time: 05:07 lg3 09/06 05:07 Order name: Central Line Kit; Complete Time: 05:07 lg3 09/06 05:07 Order name: Consent for central line completed; Complete Time: 05:07 lg3 09/06 05:07 Order name: Line Caps x3; Complete Time: 05:07 lg3 09/06 05:07 Order name: NS Flushes x3; Complete Time: 05:07 lg3 09/06 05:07 Order name: Sterile Gloves; Complete Time: 05:07 lg3 Administered Medications: 04:45 Drug: NS 0.9% IV 1000 ml IV at 1000 ml once; to be given as a bolus over 60 minutes aa10 Route: IV; Rate: 1000 ml; Site: right femoral; 06:11 Follow up: Response: No adverse reaction; Marked relief of symptoms aa10 06:11 Follow up: IV Status: Completed infusion; IV Intake: 1000ml aa10 05:07 Drug: Mupirocin Topical Ointment 2 % 1 application Topical in both nares Per protocol; lg3 Pea sized amount to both nares Route: Topical; Site: affected area; 05:48 Follow up: Response: No adverse reaction; Marked relief of symptoms aa10 05:18 Drug: Rocephin IV 1 grams IV at bolus once; Given slow IV push per pharmacy lg3 instructions Route: IV; Rate: bolus; Site: left femoral; 06:12 Follow up: Response: No adverse reaction; Marked relief of symptoms aa10 06:53 Drug: NS 0.9% IV 1000 ml IV at 1000 ml once; to be given as a bolus over 60 minutes aa10 Route: IV; Rate: 1000 ml; Site: left femoral; 07:04 Follow up: IV Status: Infusion continued upon admission aa10 06:54 Drug: Pantoprazole IV 8 mg/hr IV at 25 ml/hr continuous; (Standard dilution is 80 mg in aa10 250 mL NS) Route: IV; Rate: 25 ml/hr; Site: left femoral; 07:04 Follow up: IV Status: Infusion continued upon admission aa10 06:54 Drug: Pantoprazole IVP 80 mg IVP once Route: IVP; Site: left femoral; aa10 07:05 Follow up: Response: No adverse reaction; Marked relief of symptoms aa10 06:54 Drug: Octreotide IV 50 mcg IV at bolus once Route: IV; Rate: bolus; Site: left femoral; aa10 07:05 Follow up: Response: No adverse reaction; Marked relief of symptoms aa10 06:57 Drug: AZITHromycin IVPB 500 mg IVPB once over 1 hrs; (mix in 250 mL NS) Route: IVPB; aa10 Infused Over: 1 hrs; Site: left femoral; 07:06 Follow up: IV Status: Infusion continued upon admission aa10 Disposition: 04:48 Critical Care:. ec2 Disposition Summary: 09/06/24 06:12 Hospitalization Ordered Notes: Hospitalization Status: Inpatient Admission ec2 Condition: Fair ec2 Problem: new ec2 Symptoms: have improved ec2 Bed/Room Type: Standard ec2 Provider: Maurice Neri(09/06/24 06:24) ec2 Location: Intensive Care Unit(09/06/24 07:05) Room Assignment: 2-(09/06/24 07:05) ss Diagnosis - Unspecified bacterial pneumonia ec2 - Anemia, unspecified ec2 - GI Bleed/ Gastrointestinal hemorrhage, unspecified ec2 - Acute kidney failure, unspecified ec2 - Troponin Elevation ec2 Discharge Instructions: - Discharge Summary Sheet aa10 Forms: - Medication Reconciliation Form ec2 - SBAR form ec2 - Leadership Thank You Letter ec2 Critical care time excluding procedures: 04:48 Critical care time: Bedside Care: 30 minutes. Total time: 30 minutes ec2 Signatures: Dispatcher [employer] Karin Cardona RN RN ss Akua Tan RN RN 3 Rey Sams MD MD ec2 Disha Queen RN RN aa10 Corrections: (The following items were deleted from the chart) 01:39 01:39 Chest Single View+RAD.RAD.BRZ ordered. EDMS EDMS 03:38 03:37 ED course: EKG independently reviewed and interpreted by me, shows normal sinus ec2 rhythm, rate of 83, no acute ST segment elevations, intervals are brought in for QTc following patient at 533.. ec2 04:44 04:44 BLOOD CULTURE*+BA.LAB.BRZ ordered. EDMS EDMS 04:44 04:44 LACTATE+C.LAB.BRZ ordered. EDMS EDMS 04:44 04:44 TYPE AND SCREEN+BB.LAB.BRZ ordered. EDMS EDMS 05:18 01:49 Ny ordered. ec2 lg3 05:23 03:47 Abdomen Pelvis Wo Con+CT.RAD.BRZ ordered. EDMS EDMS 05:30 04:44 PACKED RBC LEUKORED+BB.LAB.BRZ ordered. EDMS EDMS 05:30 04:48 ABO/RH typing ordered. EDMS EDMS 05:30 04:48 Antibody Screen ordered. EDMS EDMS 06:20 01:50 Constitutional: GEN: NAD Head: atraumatic Eyes: EOMI Ears: External ears are ec2 normal. CV: regular rate LUNGS: no respiratory distress ABD: non-distended, soft, nontender guarding MSK: no evidence of trauma ec2 06:24 06:12 Lukas Hansen ec2 ec2 06:45 06:12 Intensive Care Unit ec2 lg3 06:45 06:12 ec2 lg3 07:05 06:45 [facility] ER HOLD lg3 ss 07:05 06:45 ERHOLD- lg3 ss 07:05 07:05 ss ss
--- NOTE | 2024-09-06 06:13 | ER ---
Nurse's Notes [facility] Name: Irma Cain Age: 69 yrs Sex: Female : 1955 Arrival Date: 09/06/2024 Time: 01:30 Bed 19 Private MD: Diagnosis: Unspecified bacterial pneumonia;Anemia, unspecified;GI Bleed/ Gastrointestinal hemorrhage, unspecified;Acute kidney failure, unspecified;Troponin Elevation Presentation: 09/06 03:03 Chief complaint: EMS states: EMS called at the group home, because patient is not at aa10 baseline per group home RN, on assessment patient is not oriented, responds to touch, and was desaturating at room air to 88% of oxygen, patient was placed on nasal prong at 4l/m, and saturation went to 98%. Coronavirus screen: Client denies travel out of the [place] in the last 14 days. At this time, the client does not indicate any symptoms associated with coronavirus-19. Ebola Screen: Patient negative for fever greater than or equal to 101.5 degrees Fahrenheit, and additional compatible Ebola Virus Disease symptoms Patient denies exposure to infectious person. Patient denies travel to an Ebola-affected area in the 21 days before illness onset. No symptoms or risks identified at this time. Initial Sepsis Screen: Does the patient meet any 2 criteria? Altered Mental Status. Does the patient have a suspected source of infection? No. Patient's initial sepsis screen is negative. Risk Assessment: Do you want to hurt yourself or someone else? Unable to obtain. Onset of symptoms was September 06, 2024. 03:03 Method Of Arrival: EMS: [facility] aa10 03:03 Acuity: FELA 2 aa10 Triage Assessment: 03:08 General: Appears in no apparent distress. uncomfortable, emaciated, Behavior is drowsy, aa10 listless, Smells of Reports Denies. Pain: Unable to use pain scale. Patient is disoriented. Patient appears to be grimacing, FLACC scale score is 4 out of 10. EENT: No deficits noted. Tympanic membrane. Neuro: No deficits noted. Level of Consciousness is lethargic, Oriented to none Table Games Dual Rate Supervisor are Gait is Speech with expressive aphasia noted, Reaction to noxious stimuli is withdrawal. Historical: - Allergies: 03:06 Aspirin; aa10 03:06 Ibuprofen; aa10 03:06 Benadryl; aa10 03:06 Neosporin ([id number]); aa10 03:06 Talwin; aa10 03:06 NSAIDS; aa10 - Home Meds: 03:06 Adderall XR Oral [Active]; Albuterol Inhl [Active]; Ambien Oral [Active]; Effexor Oral aa10 [Active]; Prednisone Oral [Active]; Xanax Oral [Active]; - PMHx: 03:06 ADD/ADHD; Anxiety; Asthma; depressive disorder; Hypertensive disorder; UNMEDICATED; aa10 Pneumonia; - PSHx: 03:06 Cholecystectomy; aa10 - Immunization history:: Adult Immunizations unknown. - Infectious Disease History:: Denies. - Social history:: Smoking status: unknown. Screenin:12 [facility] ED Fall Risk Assessment (Adult) History of falling in the last 3 months, aa10 including since admission No falls in past 3 months (0 pts) Confusion or Disorientation Yes (5 pts) Intoxicated or Sedated No (0 pts) Impaired Gait Yes (1 pt) Mobility Assist Device Used Yes (1 pt) Altered Elimination Yes (1 pt) Score/Fall Risk Level 3 or more points = High Risk Oriented to surroundings, Maintained a safe environment, Educated pt \T\ family on fall prevention, incl call for assistance when getting out of bed, Assessed \T\ reinforced patient's understanding of fall precautions, Provided non-skid footwear, Hourly rounding (assess needs \T\ fall precautionary measures) done, Used ambulatory aids as needed (educated on \T\ assisted with), Implemented a Fall Risk Plan of Care. Abuse screen: Denies threats or abuse. Denies injuries from another. Nutritional screening: No deficits noted. Tuberculosis screening: No symptoms or risk factors identified. Assessment: 03:10 General: Appears distressed, Behavior is drowsy, unresponsive. Neuro: No deficits aa10 noted. Level of Consciousness is. Cardiovascular: Capillary refill < 3 seconds. Respiratory: Airway is patent. 03:28 Reassessment: neck vein line being attempted at bedside following multiple failed aa10 attempts with ultrasound IV. 04:18 Reassessment: Neck line attempted and failed by DR sams, RN attempted to pass urinary aa10 catheter anatomy of patient was not normal, urinary catheter attempt failed, same was escalated to discharge planner who attempted, without success, this was escalated to the MD , patient was seen passing urine during clean up, urine was noted to be coming from around the vagina as no opening was seen in between the vagina and the clitoris, he was cleaned up and placed in a comfortable position, patient noted to have dark stool on diapers.MD at bedside to attempt central line for patient. 04:25 Reassessment: BP: 120/37MMHG, WITH MAP OF 61,MD Latrell siegel MD at bedside aa10 performing procedure. 07:05 General: Appears in no apparent distress. comfortable, well groomed, well developed, kc6 Behavior is drowsy. Pain: Unable to use pain scale. Patient is disoriented. Neuro: Level of Consciousness is confused, lethargic, Oriented to none. Cardiovascular: Heart tones S1 S2 present Capillary refill < 3 seconds Rhythm is regular. Respiratory: Airway is patent Trachea midline Respiratory effort is even, unlabored, Respiratory pattern is regular, symmetrical. GI: Abdomen is flat, non-distended, Bowel sounds present X 4 quads. Abd is soft and non tender X 4 quads. previous RN reports black, tarry stool when cleaning the pt of incontinence. : No signs and/or symptoms were reported regarding the genitourinary system. EENT: No signs and/or symptoms were reported regarding the EENT system. Derm: No signs and/or symptoms reported regarding the dermatologic system. Skin is fragile, is thin, with poor turgor Skin is dry, Skin is pale, Skin temperature is warm. Musculoskeletal: Circulation, motion, and sensation intact. Range of motion: intact in all extremities, Swelling present in right eye, left eye, right arm, left arm, right leg and left leg. 07:17 Reassessment: spoke with pts daughter via telephone regarding pts condition and need kc6 for admission. daughter verbalizes understanding and gives verbal consent for blood transfusion. CANDACE Nino called report to CANDACE Mckoy in the ICU at this time. Vital Signs: 02:14 BP 114 / 49; Pulse 81; Resp 10 S; Temp 99; Pulse Ox 97% on 2 lpm NC; aa10 03:03 BP 114 / 56; Pulse 80; Resp 20; Temp 99; Pulse Ox 99% on 2 lpm NC; aa10 04:22 BP 121 / 38; Pulse 81; Resp 15; Pulse Ox 91% on 2 lpm NC; aa10 05:36 BP 113 / 44; Pulse 80; Resp 16 S; Temp 98(O); Pulse Ox 90% on 2 lpm NC; aa10 06:09 BP 131 / 46; Pulse 73; Resp 12; Temp 98; Pulse Ox 95% on 2 lpm NC; MAP 70 mmHg; aa10 07:21 BP 92 / 66; Pulse 73; Resp 14 S; Pulse Ox 91% on 4 lpm NC; kc6 ED Course: 01:32 Patient arrived in ED. jj6 01:37 Rey Sams MD is Attending Physician. ec2 02:31 Inserted saline lock: 20 gauge in right upper arm, using aseptic technique. Blood lg3 collected. 02:31 IV discontinued, intact, bleeding controlled, No redness/swelling at site. Pressure lg3 dressing applied. 02:32 Initial lab(s) drawn, by me, sent to lab. lg3 02:32 LFT's Sent. lg3 02:32 Basic Metabolic Panel Sent. lg3 02:32 CBC with Diff Sent. lg3 02:32 Troponin HS Sent. lg3 02:40 Missed attempt(s): 20 gauge in left antecubital area. Bleeding controlled, band aid lg3 applied, catheter tip intact. 02:45 Missed attempt(s): 22 gauge in left antecubital area. Bleeding controlled, band aid lg3 applied, catheter tip intact. 03:00 Missed attempt(s): 22 gauge in right upper arm. Bleeding controlled, band aid applied, vc1 catheter tip intact. 03:05 Missed attempt(s): 22 gauge in right antecubital area. Bleeding controlled, band aid vc1 applied, catheter tip intact. 03:06 Triage completed. aa10 03:10 Arm band placed on right wrist. EKG completed in triage. Results shown to MD. aa10 03:13 Patient has correct armband on for positive identification. Allergy band placed. Fall aa10 risk band placed. Placed in gown. Bed in low position. Call light in reach. Side rails up X2. Provided Education on: plan of care. 03:15 Missed attempt(s): 22 gauge in left upper arm. Bleeding controlled, band aid applied, vc1 catheter tip intact. 03:22 Oxygen administration via nasal cannula \T\ 2L/min. aa10 03:52 Notified ED physician of a critical lab result(s). Troponin 402.4. vc1 04:18 Manual Differential Sent. aa10 04:46 Consent for blood and/or blood product transfusion Procedure consent patient unable to lg3 give verbal consent. Emergent need at this time per provider. 04:59 Type And Screen Sent. lg3 04:59 Lactate w/ 2H reflex if indic. Sent. lg3 04:59 Blood Culture Adult (2) Sent. lg3 05:04 Assisted provider with central line placement. Set up central line tray. Triple lumen lg3 line placed in left femoral. Line placed by Rey Sams MD Placement verified by CXR, blood return, Blood was collected. Patient tolerated well. Before procedure, did Practitioner(s) obtain informed consent? Yes. Patient \T\ family education about procedure, CLABSI prevention and S/S of infection? Yes. Time-out/Briefing performed prior to start of procedure? Yes. Was handwashing/sanitizing done immediately prior to procedure? Yes. Was patient positioned to in a way to prevent air embolism? Yes. Was procedure site sterilized? Yes, with chlorhexidine. Was the site allowed to dry? Yes. Was local anesthetic and/or sedation utilized? Yes. During the procedure, did the Practitioner(s) maintain a sterile field? Yes. Were unused ports clamped during insertion? Yes. Was a 2nd qualified MD obtained after 3 unsuccessful insertion attempts? No. Was blood aspirated from each lumen? Yes. After the procedure, did the Practitioner(s) clean the site and apply a sterile dressing? Yes. 05:16 CT Head Brain wo Cont In Process Unspecified. EDMS 05:18 One-on-one care X 60 minutes. lg3 05:23 XRAY Chest (1 view) In Process Unspecified. EDMS 05:35 Chest Abd Pelvis Wo Con In Process Unspecified. EDMS 05:54 purewick connected. oe 06:12 Lukas Hansen MD is Hospitalizing Provider. ec2 06:24 Maurice Neri MD is Hospitalizing Provider. ec2 07:00 Report received from CANDACE Nino. kc6 07:00 vocational counselor on. Pulse ox on. NIBP on. Door closed. Noise minimized. Lights dimmed. kc6 Warm blanket given. Pillow given. Administered Medications: 04:45 Drug: NS 0.9% IV 1000 ml IV at 1000 ml once; to be given as a bolus over 60 minutes aa10 Route: IV; Rate: 1000 ml; Site: right femoral; 06:11 Follow up: Response: No adverse reaction; Marked relief of symptoms aa10 06:11 Follow up: IV Status: Completed infusion; IV Intake: 1000ml aa10 05:07 Drug: Mupirocin Topical Ointment 2 % 1 application Topical in both nares Per protocol; lg3 Pea sized amount to both nares Route: Topical; Site: affected area; 05:48 Follow up: Response: No adverse reaction; Marked relief of symptoms aa10 05:18 Drug: Rocephin IV 1 grams IV at bolus once; Given slow IV push per pharmacy lg3 instructions Route: IV; Rate: bolus; Site: left femoral; 06:12 Follow up: Response: No adverse reaction; Marked relief of symptoms aa10 06:53 Drug: NS 0.9% IV 1000 ml IV at 1000 ml once; to be given as a bolus over 60 minutes aa10 Route: IV; Rate: 1000 ml; Site: left femoral; 07:04 Follow up: IV Status: Infusion continued upon admission aa10 06:54 Drug: Pantoprazole IV 8 mg/hr IV at 25 ml/hr continuous; (Standard dilution is 80 mg in aa10 250 mL NS) Route: IV; Rate: 25 ml/hr; Site: left femoral; 07:04 Follow up: IV Status: Infusion continued upon admission aa10 06:54 Drug: Pantoprazole IVP 80 mg IVP once Route: IVP; Site: left femoral; aa10 07:05 Follow up: Response: No adverse reaction; Marked relief of symptoms aa10 06:54 Drug: Octreotide IV 50 mcg IV at bolus once Route: IV; Rate: bolus; Site: left femoral; aa10 07:05 Follow up: Response: No adverse reaction; Marked relief of symptoms aa10 06:57 Drug: AZITHromycin IVPB 500 mg IVPB once over 1 hrs; (mix in 250 mL NS) Route: IVPB; aa10 Infused Over: 1 hrs; Site: left femoral; 07:06 Follow up: IV Status: Infusion continued upon admission aa10 Medication: 03:13 VIS not applicable for this client. aa10 Intake: 06:11 IV: 1000ml; Total: 1000ml. aa10 Outcome: 06:12 Decision to Hospitalize by Provider. ec2 07:03 Admitted to ER Hold. Please see [facility] for further documentation. aa10 07:03 Condition: stable 07:03 Instructed on the need for admit, 07:45 Patient left the ED. jl7 Signatures: Dispatcher [employer] EDMS Ramiro Grey Jahala RN RN jl7 Akua Tan RN RN lg3 Anyi Santamaria jj6 Charu Cornejo RN RN vc1 Joselyn Garza RN RN kc6 Rey Sams MD MD ec2 Disha Queen RN RN aa10 Corrections: (The following items were deleted from the chart) 05:23 05:16 In radiology for Abdomen Pelvis Wo Con+CT.RAD.BRZ. [facility] EDMS 05:30 04:59 ABO/RH typing drawn and sent. 3 EDMS 05:30 04:59 Antibody Screen drawn and sent. [facility] EDMS 05:30 04:59 PACKED RBC LEUKORED+BB.LAB.BRZ drawn and sent. [facility] EDMS 06:11 06:11 IV Status: Completed infusion aa10 aa10
[2024-09-06 06:21] LABS: PT Prothrombin Time 15.5 SECONDS (9.4-12.5); Protime INR 1.48
[2024-09-06] MEDS ORDERED: AZITHROMYCIN 500 MG INJ IVPB ONE (06:21)
[2024-09-06] MEDS ORDERED: PANTOPRAZOLE 40 MG INJ ONE ×2 (06:21→06:23)
[2024-09-06] MEDS ORDERED: OCTREOTIDE ACETATE 100 MCG/ML ONE (06:21)
[2024-09-06] MEDS ORDERED: NA CHLORIDE 0.9% 250 ML ONE (06:22)
[2024-09-06] MEDS ORDERED: ONDANSETRON 4 MG/2 ML VIAL IV PRN (06:26)
[2024-09-06] MEDS ORDERED: NA CHLORIDE 0.9% 250 ML IV SCH (07:00)
[2024-09-06] MEDS: PANTOPRAZOLE INJ 80 MG in NA CHLORIDE 0.9% 250 ML IV SCH ×2 (07:00→16:49)
[2024-09-06 08:20] LABS: Absolute Lymphocytes (CBC) 0.8 K/uL (0.7-4.9); Absolute Monocytes 0.1 K/uL (0.1-1.3); Absolute Neutrophil 8.4 K/uL (1.8-8.0); Basophils % 0.4 % (0-1.3); Eosinophils % 0.2 % (0-4.4); Hemoglobin 6.4 g/dL (12.0-15.0); Lymphocytes % 8.7 % (15.3-44.8); MCH 28.8 pg (27.0-35.0); MCHC 30.4 g/dL (32.0-36.0); MCV 94.7 fL (80-100); MPV 8.8 fL (7.6-11.3); Monocytes % 1.4 % (3.3-12.3); Neutrophils % 89.3 % (41.7-73.7); Nucleated RBC Absolute Count 0.1 (0-0); Nucleated Red Blood Cells % 0.7 % (0-0); Platelets 174 thou/uL (152-406); RBC Red Blood Cell Count 2.22 M/uL (3.86-4.86); Red Cell Distribution Width 21.2 % (12.1-15.2)
[2024-09-06 08:30] LABS: PT Prothrombin Time 15.8 SECONDS (9.4-12.5); PTT, Activated Partial Thromb 28.1 SECONDS (24.3-36.9); Protime INR 1.51
[2024-09-06] MEDS: NA CHLORIDE 0.9% 250 ML ONE (08:54)
--- NOTE | 2024-09-06 09:20 | P.HP ---
Certification for Inpatient Patient admitted to: Inpatient With expected LOS: >2 Midnights Patient will require the following post-hospital care: Prison Practitioner: I am a practitioner with admitting privileges, knowledge of patient current condition, hospital course, and medical plan of care. Services: Services provided to patient in accordance with Admission requirements found in Title 42 Section 412.3 of the Code of Federal Regulations Patient History Date of Service: 09/06/24 Primary Care Provider: Daron History of Present Illness: Patient of mine in [facility]. Has a history of copd, chf, depression, depression and detention benzodiazepam use disorder. She was non responsive and was sent to the ER. Was found to have a hb of 6.4. Was admitted to the ICU and consult to Dr. Ga. She was given 2lts of N saline in the ER. The ICU nurse is just about to start blood bp was 96/36 approx. she is minimally responsive. Allergies aspirin Allergy (Intermediate, Verified 11/07/12 16:55) Anaphylaxis bacitracin [From Neosporin ([id number]-[id number])] Allergy (Intermediate, Verified 11/07/12 16:55) aquino skin bacitracin zinc [From Neosporin (ldg-iyk-pooze)] Allergy (Intermediate, Verified 11/07/12 16:55) aquino skin neomycin sulfate [From Neosporin (osn-pqp-[id number])] Allergy (Intermediate, Verified 11/07/12 16:55) aquino skin polymyxin B [From Neosporin (uno-ori-[id number])] Allergy (Intermediate, Verified 11/07/12 16:55) aquino skin NSAIDS Allergy (Severe, Uncoded 03/29/24 04:24) Anaphylaxis Neosporin (cbs-pgd-[id number]) Allergy (Uncoded 06/03/18 18:20) Itching Home medications list reviewed: Yes Home Medications: Fluticasone/Umeclidin/Vilanter [Trelegy Ellipta 100-62.5-25] 1 puff PO BEDTIME PRN 07/17/22 Benzonatate [Tessalon Perle*] 100 mg PO TID PRN #60 cap 01/07/24 Albuterol Inhaler [Ventolin Inhaler*] 2 puff IH Q6H PRN #1 inh 01/08/24 Alprazolam [Xanax] 1 mg PO BID PRN #60 tab 03/15/24 Ipratropium Neb [Atrovent*] 0.5 mg NEB [id number] PRN 03/29/24 Venlafaxine HCl *Xr* [Effexor XR] 75 mg PO DAILY 03/29/24 Amiodarone HCl [Cordarone*] 200 mg PO BID #180 tab 07/13/24 Atorvastatin Calcium [Lipitor] 40 mg PO BEDTIME #90 tab 07/13/24 Clopidogrel Bisulfate [Plavix*] 75 mg PO DAILY #90 tab 07/13/24 Ensure Enlive 237 ml PO BID #60 can 07/13/24 Furosemide [Lasix*] 40 mg PO DAILY #90 tab 07/13/24 Lidocaine 4% Patch [Lidoderm 5% Patch*] 1 patch TOP DAILY #10 pat 07/13/24 Losartan Potassium [Cozaar*] 50 mg PO BID #180 tab 07/13/24 Metoprolol Tartrate [Lopressor*] 25 mg PO TID #270 tab 07/13/24 Mometasone/Formoterol [Dulera 200 Mcg/5 Mcg Inhaler] 2 puff IH BID #1 inhaler 07/13/24 Rivaroxaban [Xarelto] 2.5 mg PO BID #60 tab 07/13/24 Roflumilast [Daliresp*] 500 mcg PO DAILY #90 tab 07/13/24 Spironolactone [Aldactone*] 25 mg PO BID #180 tab 07/13/24 predniSONE [Deltasone*] 10 mg PO DAILY #90 tab 07/13/24 - Past Medical/Surgical History Diabetic: No -: Asthma -: Depression -: Osteoporosis -: GERD with hiatal hernia -: Obesity -: Hypertension -: ADHD -: -: Tubal ligation -: cholecystectomy -: cataract surgery -: rt shoulder sx x2 -: sx on left knee Psychosocial/ Personal History: Patient is . She has 1 child. She is retired. - Family History Mother -: Heart disease, Hypertension, Diabetes Father -: Heart disease, Hypertension, Lung disease, Cancer, Other (see notes) Notes: asbestosis - Social History Alcohol use: No CD- Drugs: No Caffeine use: Yes Review of Systems is unable to be obtained Physical Examination - Physical Exam General: Unresponsive HEENT: Atraumatic, PERRLA, Mucous membr. moist/pink, EOMI, Sclerae nonicteric Neck: Supple, 2+ carotid pulse no bruit, No LAD, Without JVD or thyroid abnormality Respiratory: Clear to auscultation bilaterally, Normal air movement Cardiovascular: Regular rate/rhythm, Normal S1 S2 Gastrointestinal: Normal bowel sounds, No tenderness Musculoskeletal: No tenderness Integumentary: No rashes Neurological: Normal gait, Normal speech, Normal strength at 5/5 x4 extr, Normal tone, Normal affect Lymphatics: No axilla or inguinal lymphadenopathy - Studies Laboratory Data (last 24 hrs) 09/06/24 09/06/24 09/06/24 02:42 02:42 02:42 WBC 10.10 Hgb 7.4 L Hct 23.5 L Plt Count 205 PT 15.5 H INR 1.48 APTT 26.0 Sodium Potassium BUN Creatinine Glucose Total Bilirubin 1.0 AST 427 H ALT 957 H Alkaline Phosphatase 181 H 09/06/24 02:42 WBC Hgb Hct Plt Count PT INR APTT Sodium 140 Potassium 4.0 BUN 93 H Creatinine 3.10 H Glucose 105 Total Bilirubin AST ALT Alkaline Phosphatase Assessment and Plan - Problems (Diagnosis) (1) GI bleed Current Visit: Yes Status: Acute Plan: will transfuse 2 units PRBC. Will await Dr. Ga. evaluation Qualifiers: GI bleed type/associated pathology: unspecified gastrointestinal hemorrhage type Qualified Code(s): K92.2 - Gastrointestinal hemorrhage, unspecified (2) Diastolic CHF Current Visit: Yes Status: Acute Plan: she has a troponin leak. Normal EKG. We can have cardiology look at her Qualifiers: Heart failure chronicity: chronic Qualified Code(s): I50.32 - Chronic d iastolic (congestive) heart failure (3) Hypovolemic shock Current Visit: Yes Status: Acute Plan: start the patient on levophed. Hopefully we can wean her off with the prbc transfusion Discharge Plan: Assisted Plan to discharge in: Greater than 2 days - Advance Directives Does patient have a Living Will: No Does patient have a Durable POA for Healthcare: No - Code Status/Comfort Care Code Status Assessed: No Physician Review: Patient Assessed, Agree with Above Assessment and Plan Critical Care: Yes Time Spent Managing Pts Care (In Minutes): 30
[2024-09-06 09:49] LABS: Anion Gap 10.1 mEq/L (5.0-15.0); Potassium 4.1 mEq/L (3.5-5.1)
[2024-09-06] MEDS ORDERED: NOREPINEPHRINE 4 MG in D5W 250 ML IV SCH (10:00)
[2024-09-06] MEDS: NA CHLORIDE 0.9% 1,000 ML IV SCH (10:02)
[2024-09-06] MEDS: PIPER TAZO 3.375 GM in NA CHLORIDE 0.9% 100 ML IV SCH (10:02)
[2024-09-06] MEDS: METHYLPREDNISOLONE 40 MG INJ IV SCH (10:02)
[2024-09-06] MEDS: NOREPINEPHRINE BITARTRATE/D5W 4 MG/250 ML BAG IV SCH (10:04)
[2024-09-06 12:13] LABS: Arterial Blood Carboxyhemoglob 1.7 % (0-1.5); Blood Gas Oxyhemoglobin 87.4 % (94-97); Blood Gas THB 10.1 g/dl (12-18); Blood O2 Saturation 90.1 % (92-98.5)
--- NOTE | 2024-09-06 12:33 | P.CNS ---
Date of Consult: 09/06/24 Primary Care Provider: Daron Chief Complaint: Respiratory failure pneumonia GI bleed History of Present Illness: Patient is 69 years of age has been declining recently (depression controlled asthma she is adenomatous of the problems apparently was found unresponsive in a prison admitted with GI bleeding bilateral pneumonia altered mental status Allergies aspirin Allergy (Intermediate, Verified 11/07/12 16:55) Anaphylaxis bacitracin [From Neosporin (eli-lbt-[id number])] Allergy (Intermediate, Verified 11/07/12 16:55) aquino skin bacitracin zinc [From Neosporin (hpl-wso-phpzx)] Allergy (Intermediate, Verified 11/07/12 16:55) aquino skin neomycin sulfate [From Neosporin (dwd-tql-apsvu)] Allergy (Intermediate, Verified 11/07/12 16:55) aquino skin polymyxin B [From Neosporin (yix-ifm-vosxa)] Allergy (Intermediate, Verified 0 11/07/12 16:55) aquino skin NSAIDS Allergy (Severe, Uncoded 03/29/24 04:24) Anaphylaxis Neosporin (fjo-iyn-hpbvr) Allergy (Uncoded 06/03/18 18:20) Itching Home Medications: Fluticasone/Umeclidin/Vilanter [Trelegy Ellipta 100-62.5-25] 1 puff PO BEDTIME PRN 07/17/22 Venlafaxine HCl *Xr* [Effexor XR] 150 mg PO DAILY 03/29/24 Amiodarone HCl [Cordarone*] 200 mg PO BID #180 tab 07/13/24 Clopidogrel Bisulfate [Plavix*] 75 mg PO DAILY #90 tab 07/13/24 Acetaminophen 325 mg PO Q6H PRN 09/06/24 Albuterol Sulfate [Proair Respiclick] 2 puff IH Q6H PRN 09/06/24 Apixaban [Eliquis] 2.5 mg PO BID 09/06/24 Atorvastatin Calcium [Lipitor] 20 mg PO BEDTIME 09/06/24 Benzonatate [Tessalon Perle*] 200 mg PO Q8H PRN 09/06/24 Buprenorphine HCl/Naloxone HCl [Buprenorphin-Naloxon 8-2 mg Sl] 1 each SL DAILY 09/06/24 Dapagliflozin Propanediol [Farxiga] 5 mg PO DAILY 09/06/24 Ferrous Sulfate 325 mg PO DAILY 09/06/24 Insulin Glargine,Hum.rec.anlog [Lantus Solostar] 8 unit SQ DAILY 09/06/24 Insulin Regular, Human [Novolin R] See Protocol 09/06/24 Levalbuterol [Xopenex*] 1 dose IH QID 09/06/24 Metoprolol Tartrate [Lopressor*] 25 mg PO BID 09/06/24 Pantoprazole Sodium [Protonix] 40 mg PO DAILY 09/06/24 Sennosides [Senokot] 8.6 mg PO BID 09/06/24 Sertraline [Zoloft] 100 mg PO BEDTIME 09/06/24 - Past Medical/Surgical History Diabetic: No -: Asthma -: Depression -: Osteoporosis -: GERD with hiatal hernia -: Obesity -: Hypertension -: ADHD -: -: Tubal ligation -: cholecystectomy -: cataract surgery -: rt shoulder sx x2 -: sx on left knee Psychosocial/ Personal History: Patient is . She has 1 child. She is retired. - Family History Mother Medical History: Heart disease, Hypertension, Diabetes Father Medical History: Heart disease, Hypertension, Lung disease, Cancer, Other (see notes) Notes: asbestosis - Social History Smoking Status: Unknown if ever smoked Alcohol use: No CD- Drugs: No Caffeine use: Yes Review of Systems is unable to be obtained Physical Examination Temp Pulse Resp BP Pulse Ox 98 F 73 14 92/66 09/06/24 06:09 09/06/24 07:21 09/06/24 07:21 09/06/24 07:21 General: Unresponsive Respiratory: Clear to auscultation bilaterally Cardiovascular: No edema, Normal S1 S2 Gastrointestinal: Normal bowel sounds, Soft and benign, Non-distended Laboratory Data (last 24 hrs) 09/06/24 09/06/24 09/06/24 02:42 02:42 02:42 WBC 10.10 Hgb 7.4 L Hct 23.5 L Plt Count 205 PT 15.5 H INR 1.48 APTT 26.0 Sodium Potassium BUN Creatinine Glucose Total Bilirubin 1.0 AST 427 H ALT 957 H Alkaline Phosphatase 181 H 09/06/24 02:42 WBC Hgb Hct Plt Count PT INR APTT Sodium 140 Potassium 4.0 BUN 93 H Creatinine 3.10 H Glucose 105 Total Bilirubin AST ALT Alkaline Phosphatase - Problems (1) Pneumonia Current Visit: Yes Status: Acute Plan: Patient is 69 years of age admitted with bilateral pneumonia altered mental status GI bleeding renal failure ricky failure hypoxic hypercarbic liver function test is abnormal elevated INR of underlying severe sepsis blood cultures have been ordered agree with Zosyn steroids fluids due to GI bleeding May need endoscopy severely anemic agree with blood transfusion so added thiamine Qualifiers: Laterality: unspecified laterality
--- NOTE | 2024-09-06 12:35 | P.CNS ---
Date of Consult: 09/06/24 Primary Care Provider: Daron Chief Complaint: altered mental status History of Present Illness: Patient with PMH of HTN, VT on prior hospital admission, diastolic heart failure, senior care resident with poor health condition, schizophrenia, COPD presented with altered mental status, found to have PNA, Low HgB and she is in shock requiring pressors support, patient only respond to painful stimuli. Allergies aspirin Allergy (Intermediate, Verified 11/07/12 16:55) Anaphylaxis bacitracin [From Neosporin (rhf-guc-vfguk)] Allergy (Intermediate, Verified 11/07/12 16:55) aquino skin bacitracin zinc [From Neosporin (rzu-hcp-lhwan)] Allergy (Intermediate, Verified 11/07/12 16:55) aquino skin neomycin sulfate [From Neosporin (tct-dxl-kmmyg)] Allergy (Intermediate, Verified 11/07/12 16:55) aquino skin polymyxin B [From Neosporin (tlp-yoo-ywnim)] Allergy (Intermediate, Verified 11/07/12 16:55) aquino skin NSAIDS Allergy (Severe, Uncoded 03/29/24 04:24) Anaphylaxis Neosporin (bkt-xdy-slwgm) Allergy (Uncoded 06/03/18 18:20) Itching Home medications list reviewed: Yes Home Medications: Fluticasone/Umeclidin/Vilanter [Trelegy Ellipta 100-62.5-25] 1 puff PO BEDTIME PRN 07/17/22 Venlafaxine HCl *Xr* [Effexor XR] 150 mg PO DAILY 03/29/24 Amiodarone HCl [Cordarone*] 200 mg PO BID #180 tab 07/13/24 Clopidogrel Bisulfate [Plavix*] 75 mg PO DAILY #90 tab 07/13/24 Acetaminophen 325 mg PO Q6H PRN 09/06/24 Albuterol Sulfate [Proair Respiclick] 2 puff IH Q6H PRN 09/06/24 Apixaban [Eliquis] 2.5 mg PO BID 09/06/24 Atorvastatin Calcium [Lipitor] 20 mg PO BEDTIME 09/06/24 Benzonatate [Tessalon Perle*] 200 mg PO Q8H PRN 09/06/24 Buprenorphine HCl/Naloxone HCl [Buprenorphin-Naloxon 8-2 mg Sl] 1 each SL DAILY 09/06/24 Dapagliflozin Propanediol [Farxiga] 5 mg PO DAILY 09/06/24 Ferrous Sulfate 325 mg PO DAILY 09/06/24 Insulin Glargine,Hum.rec.anlog [Lantus Solostar] 8 unit SQ DAILY 09/06/24 Insulin Regular, Human [Novolin R] See Protocol SQ ACHS 09/06/24 Levalbuterol [Xopenex*] 1 dose IH QID 09/06/24 Metoprolol Tartrate [Lopressor*] 25 mg PO BID 09/06/24 Pantoprazole Sodium [Protonix] 40 mg PO DAILY 09/06/24 Sennosides [Senokot] 8.6 mg PO BID 09/06/24 Sertraline [Zoloft] 100 mg PO BEDTIME 09/06/24 - Past Medical/Surgical History Diabetic: No -: Asthma -: Depression -: Osteoporosis -: GERD with hiatal hernia -: Obesity -: Hypertension -: ADHD -: -: Tubal ligation -: cholecystectomy -: cataract surgery -: rt shoulder sx x2 -: sx on left knee Psychosocial/ Personal History: Patient is . She has 1 child. She is retired. - Family History Mother Medical History: Heart disease, Hypertension, Diabetes Father Medical History: Heart disease, Hypertension, Lung disease, Cancer, Other (see notes) Notes: asbestosis - Social History Smoking Status: Unknown if ever smoked Alcohol use: No CD- Drugs: No Caffeine use: Yes Review of Systems is unable to be obtained (only respond to painful stimuli) Physical Examination Temp Pulse Resp BP Pulse Ox 98 F 73 14 92/66 09/06/24 06:09 09/06/24 07:21 09/06/24 07:21 09/06/24 07:21 General: Moderate distress, Other (will not open eyes and repond to painful stimuli only) HEENT: Atraumatic, Normocephalic Neck: Supple Respiratory: Diminished, Crackles/rales Cardiovascular: Normal S1 S2, Edema Gastrointestinal: Normal bowel sounds Laboratory Data (last 24 hrs) 09/06/24 09/06/24 09/06/24 02:42 02:42 02:42 WBC 10.10 Hgb 7.4 L Hct 23.5 L Plt Count 205 PT 15.5 H INR 1.48 APTT 26.0 Sodium Potassium BUN Creatinine Glucose Total Bilirubin 1.0 AST 427 H ALT 957 H Alkaline Phosphatase 181 H 09/06/24 02:42 WBC Hgb Hct Plt Count PT INR APTT Sodium 140 Potassium 4.0 BUN 93 H Creatinine 3.10 H Glucose 105 Total Bilirubin AST ALT Alkaline Phosphatase - Problems (1) NSTEMI (non-ST elevated myocardial infarction) Current Visit: Yes Status: Acute Plan: Type 2 [place] from recent GI bleed, also patient had a stress test and echo recently that were normal would recommend to continue ASA 81 mg daily if possible. No further cardiac work up needed.
[2024-09-06] MEDS: CALCIUM GLUCONATE 1 GM IVPB 1 GM/50 ML BAG IV ONE (12:58)
[2024-09-06] MEDS: VANCOMYCIN 1.25 GM in NA CHLORIDE 0.9% 250 ML IVPB ONE (13:07)
[2024-09-06] MEDS: VITAMIN K (ADULT) 10 MG/ML IVP ONE (13:07)
[2024-09-06] MEDS: THIAMINE 200 MG/2 ML INJ IVP SCH (13:07)
[2024-09-06] MEDS: IPRATROPIUM BROM 0.5MG/2.5ML NEB SCH (13:38)
[2024-09-06] MEDS: ALBUTEROL 2.5 MG/3 ML NEB SOL IH SCH (13:38)
[2024-09-06 13:41] LABS: Specific Gravity 1.014 (1.005-1.030); Sqamous Epithelial <5 /HPF (None Seen); Urine Bacteria <20 /HPF (<20); Urine Bilirubin NEGATIVE (Negative); Urine Blood 1+ (Negative); Urine Clarity Extremely Turbid (Clear); Urine Color Yellow (Yellow); Urine Culture Reflex Order NOT NEEDED; Urine Glucose NEGATIVE (Negative); Urine Ketones NEGATIVE (Negative); Urine Micro Reflex YN NO BILL MICROSCOPIC; Urine Mucus Slight /HPF (None Seen); Urine Nitrite NEGATIVE (Negative); Urine Protein TRACE (Negative); Urine Urobilinogen Normal (Normal); Urine WBC <5 /HPF (<5)
[2024-09-06 19:43] LABS: Hematocrit 34.9 % (36.0-45.0); Hemoglobin 11.1 g/dL (12.0-15.0)
[2024-09-07 06:00] LABS: Hematocrit 34.4 % (36.0-45.0); Hemoglobin 10.9 g/dL (12.0-15.0); MCH 28.2 pg (27.0-35.0); MCHC 31.6 g/dL (32.0-36.0); MCV 89.3 fL (80-100); MPV 8.7 fL (7.6-11.3); Platelets 152 thou/uL (152-406); RBC Red Blood Cell Count 3.85 M/uL (3.86-4.86); Red Cell Distribution Width 21.8 % (12.1-15.2)
[2024-09-07 06:50] LABS: Albumin 1.3 g/dL (3.4-5.0); Albumin/Globulin Ratio 0.4 (1.1-1.8); Anion Gap 12.3 mEq/L (5.0-15.0); Bilirubin Total 1.2 mg/dL (0.2-1.0); Globulin 3.7 g/dL (2.3-3.5); Potassium 4.3 mEq/L (3.5-5.1)
--- NOTE | 2024-09-07 09:16 | RAD REPORT ---
EXAMINATION: ONE VIEW CHEST XR CLINICAL INDICATION: pneumonia TECHNIQUE: Frontal chest projection is submitted. Examination is limited by patient positioning and t echnique. COMPARISON: 09/06/2024 FINDINGS: There has been significant worsening in lung aeration particularly in the right lung which is nearly completely opacified. The heart is mildly enlarged. No displaced fractures identified. IMPRESSION: Significant worsening in lung aeration since comparative study.
--- NOTE | 2024-09-07 10:33 | P.PN ---
Subjective Date of Service: 09/07/24 Primary Care Provider: Daron Chief Complaint: Respiratory failure pneumonia GI bleed Subjective: Improving (hb, creatine and oxygenation improved. Patient off levophed) Review of Systems is unable to be obtained Physical Examination - Vital Signs Temperature: 97.3 F Blood Pressure: 120/45 Pulse: 72 Respirations: 10 Pulse Ox (%): 94 - Physical Exam General: Unresponsive HEENT: Atraumatic, PERRLA, EOMI Neck: Supple, JVD not distended Respiratory: Clear to auscultation bilaterally, Normal air movement Cardiovascular: Regular rate/rhythm, Normal S1 S2 Gastrointestinal: Normal bowel sounds, No tenderness Musculoskeletal: No tenderness Integumentary: No rashes Neurological: Normal speech, Normal tone, Normal affect Lymphatics: No axilla or inguinal lymphadenopathy Assessment And Plan - Current Problems (Diagnosis) (1) Pneumonia Current Visit: No Status: Acute Plan: continue zosyn. Continue bipap No growth on blood cultures at this time Qualifiers: Pneumonia type: due to unspecified organism Laterality: bilateral Lung location: lower lobe of lung Qualified Code(s): J18.9 - Pneumonia, unspecified organism (2) GI bleed Current Visit: Yes Status: Acute Plan: will transfuse 2 units PRBC. Will await Dr. Ga. evaluation Qualifiers: GI bleed type/associated pathology: unspecified gastrointestinal hemorrhage type Qualified Code(s): K92.2 - Gastrointestinal hemorrhage, unspecified (3) Diastolic CHF Current Visit: Yes Status: Acute Plan: she has a troponin leak. Normal EKG. We can have cardiology look at her Qualifiers: Heart failure chronicity: chronic Qualified Code(s): I50.32 - Chronic diastolic (congestive) heart failure (4) Hypovolemic shock Current Visit: Yes Status: Acute Plan: start the patient on levophed. Hopefully we can wean her off with the prbc transfusion (5) Acute on chronic renal failure Current Visit: Yes Status: Acute Plan: creatine is improving with fluids and improved blood pressure. Will continue to monitor Qualifiers: Acute renal failure type: unspecified Chronic kidney disease stage: stage 4 (GFR 15-29) Qualified Code(s): N17.9 - Acute kidney failure, unspecified; N18.4 - Chronic kidney disease, stage 4 (severe) Discharge Plan: Skilled Nursing Plan to discharge in: Greater than 2 days - Code Status/Comfort Care Code Status Assessed: No Physician Review: Patient Assessed, Agree with Above Assessment and Plan Critical Care: Yes Time Spent Managing PTS Care (In Minutes): 20
--- NOTE | 2024-09-07 16:20 | CON ---
Reason For Consultation: GI bleed. History Of Presenting Illness: The patient is a 69-year-old woman, who has had multiple admissions t o [facility]. She is a resident of [facility] with a medical history of COPD, CHF, dep ression, was found unresponsive, brought to the ER. At that time, found to have a hemoglobin of 6.4 and there was questionable history of dark stools. She was admitted to the ICU. Also found to have pneumonia and to be in septic shock. Due to that, started on pressors, antibiotics, given 2 units o f blood. Since then, hemoglobin actually improved to 11, which would indicate the initial hemoglobin may have been an underestimation. Since presentation, she has been minimally responsive. Even when I examined her, she is only responding to pain. Has a BiPAP for breathing. No history had been abl e to be obtained directly from the patient. Allergies: TO MULTIPLE ALLERGIES MENTIONED IN THE CHART. ASPIRIN, BACITRACIN, NEOMYCIN, POLYMYXI N, NSAIDS, AND NEOSPORIN. Current Medications: As in the chart. Family History: Unable to obtain. Review of Systems: Unable to obtain. Past Medical History: As above. Past Surgical History: . Tubal ligation. Cholecystectomy. Cataract surgery. Right shou lder and left knee surgery. Physical Examination: Vital Signs: On presentation, vitals, blood pressure was 96/36, oxygen saturation 100% on BiPAP. Sh e is afebrile at this time. Respiration rate is set per the BiPAP. Laboratory Data: Reviewed, as mentioned above. Hemoglobin now 10.9. Impression: 69-year-old woman with multiple medical problems, in septic shock due to pneumonia who m ay have had an episode of GI bleed, could be related to stress gastropathy versus other causes. [place] rita, the patient is septic, only responding to pain stimuli, not a candidate for any endoscopic inter vention especially because there does not seem to be any active bleeding and has not have occurred in the last 24 hours. H and H is stable. Plan: Continue current management. Continue treatment for sepsis. Discussed with family regarding resuscitative measures. IV PPI to be continued. I will sign off the case at this time. Please reca ll if there is any need. US/MODL Voice ID: [id number] Report ID: [id number]
[2024-09-08 05:44] LABS: Hematocrit 35.4 % (36.0-45.0); Hemoglobin 11.2 g/dL (12.0-15.0); MCH 28.4 pg (27.0-35.0); MCHC 31.6 g/dL (32.0-36.0); MCV 89.7 fL (80-100); MPV 8.7 fL (7.6-11.3); Platelets 142 thou/uL (152-406); RBC Red Blood Cell Count 3.94 M/uL (3.86-4.86)
[2024-09-08 06:55] LABS: Albumin 1.4 g/dL (3.4-5.0); Albumin/Globulin Ratio 0.4 (1.1-1.8); Anion Gap 13.1 mEq/L (5.0-15.0); Bilirubin Total 0.9 mg/dL (0.2-1.0); Potassium 4.1 mEq/L (3.5-5.1); Protein, Total 5.4 g/dL (6.4-8.2)
[2024-09-08] MEDS: D5 0.2 NS 1,000 ML IV SCH (08:31)
--- NOTE | 2024-09-08 08:41 | RAD REPORT ---
EXAMINATION: ONE VIEW CHEST XR CLINICAL INDICATION: Female, 69 years old.,pneumonia TECHNIQUE: Frontal chest projection is submitted. Examination is limited by patient positioning and t echnique. COMPARISON: 09/07/2024 FINDINGS: Partial improvement of patchy airspace opacification throughout the right lung. Near-complete improve ment of left mid to basal airspace opacification. No pneumothorax or sizable effusion. The heart is normal in size. Mediastinal contours are unremarkable. IMPRESSION: Partial improvement of aeration as above.
[2024-09-08] MEDS ORDERED: VITAL AF 1,000 ML BOT RTH SCH (13:00)
--- NOTE | 2024-09-08 14:17 | P.PN ---
Subjective Date of Service: 09/08/24 Primary Care Provider: Daron Chief Complaint: altered mental status Subjective: No new changes Review of Systems is unable to be obtained (patient is on bipap and hard to response) Physical Examination - Vital Signs Temperature: 97.2 F Blood Pressure: 132/48 Pulse: 78 Respirations: 13 Pulse Ox (%): 95 - Physical Exam General: Moderate distress HEENT: Atraumatic, PERRLA, EOMI Neck: Supple, JVD not distended Respiratory: Clear to auscultation bilaterally, Normal air movement Cardiovascular: Regular rate/rhythm, Normal S1 S2 Gastrointestinal: Normal bowel sounds, No tenderness Musculoskeletal: No tenderness Integumentary: No rashes Neurological: Normal speech, Normal tone, Normal affect Lymphatics: No axilla or inguinal lymphadenopathy - Studies Medications List Reviewed: Yes Assessment And Plan - Current Problems (Diagnosis) (1) NSTEMI (non-ST elevated myocardial infarction) Current Visit: Yes Status: Acute Plan: Type 2 [place] from recent GI bleed, also patient had a stress test and echo recently that were normal would recommend to continue ASA 81 mg daily if possible. No further cardiac work up needed. Physician Review: Patient Assessed, Agree with Above Assessment and Plan
--- NOTE | 2024-09-08 14:31 | P.PN ---
Subjective Date of Service: 09/08/24 Primary Care Provider: Daron Chief Complaint: altered mental status Subjective: No new changes Review of Systems is unable to be obtained Physical Examination - Vital Signs Temperature: 97.2 F Blood Pressure: 132/48 Pulse: 78 Respirations: 13 Pulse Ox (%): 95 - Physical Exam General: Unresponsive HEENT: Atraumatic, PERRLA, EOMI Neck: Supple, JVD not distended Respiratory: Clear to auscultation bilaterally, Normal air movement Cardiovascular: Regular rate/rhythm, Normal S1 S2 Gastrointestinal: Normal bowel sounds, No tenderness Musculoskeletal: No tenderness Integumentary: No rashes Neurological: Normal speech, Normal tone, Normal affect Lymphatics: No axilla or inguinal lymphadenopathy - Studies Medications List Reviewed: Yes Assessment And Plan - Current Problems (Diagnosis) (1) Pneumonia Current Visit: No Status: Acute Plan: continue zosyn. Continue bipap No growth on blood cultures at this time Qualifiers: Pneumonia type: due to unspecified organism Laterality: bilateral Lung location: lower lobe of lung Qualified Code(s): J18.9 - Pneumonia, unspecified organism (2) GI bleed Current Visit: Yes Status: Acute Plan: will transfuse 2 units PRBC. Will await Dr. Ga. evaluation Qualifiers: GI bleed type/associated pathology: unspecified gastrointestinal hemorrhage type Qualified Code(s): K92.2 - Gastrointestinal hemorrhage, unspecified (3) Diastolic CHF Current Visit: Yes Status: Acute Plan: she has a troponin leak. Normal EKG. We can have cardiology look at her Qualifiers: Heart failure chronicity: chronic Qualified Code(s): I50.32 - Chronic diastolic (congestive) heart failure (4) Hypovolemic shock Current Visit: Yes Status: Acute Plan: start the patient on levophed. Hopefully we can wean her off with the prbc transfusion (5) Acute on chronic renal failure Current Visit: Yes Status: Acute Plan: creatine is improving with fluids and improved blood pressure. Will continue to monitor Qualifiers: Acute renal failure type: unspecified Chronic kidney disease stage: stage 4 (GFR 15-29) Qualified Code(s): N17.9 - Acute kidney failure, unspecified; N18.4 - Chronic kidney disease, stage 4 (severe) Discharge Plan: Alf Plan to discharge in: Greater than 2 days - Code Status/Comfort Care Code Status Assessed: No Physician Review: Patient Assessed, Agree with Above Assessment and Plan Critical Care: Yes Time Spent Managing PTS Care (In Minutes): 20
[2024-09-08] MEDS: METOPROLOL TARTRATE 5 MG/5 ML INJ IV SCH (17:40)
--- NOTE | 2024-09-08 18:28 | P.PN ---
Subjective Date of Service: 09/08/24 Primary Care Provider: Daron Chief Complaint: Respiratory failure pneumonia No change in patient's condition she is continues to remain BiPAP and unresponsive with bilateral changes right worse than the left Review of Systems is unable to be obtained Physical Examination - Vital Signs Temperature: 97.2 F Blood Pressure: 145/68 Pulse: 74 Respirations: 14 Pulse Ox (%): 93 - Physical Exam General: Unresponsive Respiratory: Crackles/rales (Worse on the right side) Cardiovascular: No edema, Regular rate/rhythm, Normal S1 S2 Gastrointestinal: Normal bowel sounds, Soft and benign - Studies Medications List Reviewed: Yes Assessment And Plan - Current Problems (Diagnosis) (1) Pneumonia Current Visit: Yes Status: Acute Plan: Patient is 69 years of age with severe depression end-stage COPD frequent exacerbations significant debility admitted with pneumonia bilateral changes right greater than the left her sodium is increased started on D5 water white count is still mildly elevated may be from steroids renal function is improving troponin is declining contraindication to anticoagulation due to bleeding add thiamine patient is currently on BiPAP is on 55% FiO2 increase PEEP prognosis poor significant prolonged debilitation patient's hemoglobin has stabilized sitter tube feeds Qualifiers: Laterality: unspecified laterality Physician Review: Patient Assessed, Agree with Above Assessment and Plan
[2024-09-08] MEDS: Levofloxacin500mg IV 500 MG/100 ML BAG IV SCH (20:18)
[2024-09-08] MEDS ORDERED: THIAMINE 200 MG/2 ML INJ IVP SCH (21:00)
[2024-09-08] MEDS: HYDRALAZINE HCL 20 MG/ML VIAL IV PRN (22:07)
[2024-09-09 06:04] LABS: Hematocrit 34.6 % (36.0-45.0); MCH 28.5 pg (27.0-35.0); MCHC 31.9 g/dL (32.0-36.0); MCV 89.2 fL (80-100); MPV 8.5 fL (7.6-11.3); Platelets 108 thou/uL (152-406); RBC Red Blood Cell Count 3.88 M/uL (3.86-4.86); Red Cell Distribution Width 20.6 % (12.1-15.2)
[2024-09-09 06:53] LABS: Albumin 1.4 g/dL (3.4-5.0); Albumin/Globulin Ratio 0.4 (1.1-1.8); Anion Gap 10.6 mEq/L (5.0-15.0); Globulin 3.8 g/dL (2.3-3.5); Potassium 3.6 mEq/L (3.5-5.1); Protein, Total 5.2 g/dL (6.4-8.2)
[2024-09-09 06:57] LABS: Troponin High Sensitivity 67.1 pg/mL (<58.9)
--- NOTE | 2024-09-09 07:24 | RAD REPORT ---
EXAMINATION: ONE VIEW CHEST XR CLINICAL INDICATION: pneumonia TECHNIQUE: Frontal chest projection is submitted. Examination is limited by patient positioning and t echnique. COMPARISON: 09/08/2024 FINDINGS: Extensive bilateral pulmonary opacities are noted which are mildly worsened since the comparative elise dy. The heart is upper limit of normal in size. No displaced fractures identified. Right shoulder arthritic changes. IMPRESSION: There has been mild to moderate worsening in bilateral pulmonary opacities since comparative study.
[2024-09-09] MEDS: KCL 20 MEQ/100 mL IVPB 20 MEQ/100 ML BAG IV SCH (10:54)
--- NOTE | 2024-09-09 11:27 | P.PN ---
Subjective Date of Service: 09/09/24 Primary Care Provider: Daron Chief Complaint: Respiratory failure pneumonia Subjective: No new changes Review of Systems is unable to be obtained Physical Examination - Vital Signs Temperature: 97.3 F Blood Pressure: 156/68 Pulse: 92 Respirations: 22 Pulse Ox (%): 96 - Physical Exam General: Unresponsive Respiratory: Rhonchi/gurgles Cardiovascular: Edema (of the upper extremities ) Musculoskeletal: Swelling (of the upper extremities) - Studies Medications List Reviewed: Yes Assessment And Plan - Current Problems (Diagnosis) (1) Pneumonia Current Visit: No Status: Acute Plan: continue zosyn. Continue bipap No growth on blood cultures at this time Qualifiers: Pneumonia type: due to unspecified organism Laterality: bilateral Lung location: lower lobe of lung Qualified Code(s): J18.9 - Pneumonia, unspecified organism (2) Diastolic CHF Current Visit: Yes Status: Acute Plan: she has a troponin leak. Normal EKG. We can have cardiology look at her 09/09 will start some lasix to decrease her swelling. Will start a catapress patch to improve the htn. She is currently not able to take her oral medications. Qualifiers: Heart failure chronicity: chronic Qualified Code(s): I50.32 - Chronic diastolic (congestive) heart failure (3) Hypovolemic shock Current Visit: Yes Status: Acute Plan: start the patient on levophed. Hopefully we can wean her off with the prbc transfusion (4) Acute on chronic renal failure Current Visit: Yes Status: Acute Plan: creatine is improving with fluids and improved blood pressure. Will continue to monitor Qualifiers: Acute renal failure type: unspecified Chronic kidney disease stage: stage 4 (GFR 15-29) Qualified Code(s): N17.9 - Acute kidney failure, unspecified; N18.4 - Chronic kidney disease, stage 4 (severe) (5) GI bleed Current Visit: Yes Status: Acute Plan: will transfuse 2 units PRBC. Will await Dr. Ga. evaluation 09/09 hb stable Qualifiers: GI bleed type/associated pathology: unspecified gastrointestinal hemorrhage type Qualified Code(s): K92.2 - Gastrointestinal hemorrhage, unspecified Discharge Plan: [facility] Plan to discharge in: Greater than 2 days - Code Status/Comfort Care Code Status Assessed: No Physician Review: Patient Assessed, Agree with Above Assessment and Plan Critical Care: Yes Time Spent Managing PTS Care (In Minutes): 20
[2024-09-09] MEDS: CLONIDINE 0.1 MG/PATCH TD SCH (13:48)
[2024-09-09] MEDS: VANCOMYCIN 1 GM in NA CHLORIDE 0.9% 250 ML IVPB SCH (13:49)
[2024-09-09] MEDS: FUROSEMIDE 40 MG/4 ML VIAL IV SCH (16:12)
[2024-09-10 06:26] LABS: Albumin 1.3 g/dL (3.4-5.0); Albumin/Globulin Ratio 0.4 (1.1-1.8); Anion Gap 12.1 mEq/L (5.0-15.0); Bilirubin Total 1.5 mg/dL (0.2-1.0); Globulin 3.6 g/dL (2.3-3.5); Potassium 3.1 mEq/L (3.5-5.1); Protein, Total 4.9 g/dL (6.4-8.2)
[2024-09-10 06:34] LABS: Absolute Basophils 0.1 K/uL (0-0.5); Absolute Lymphocytes (CBC) 0.2 K/uL (0.7-4.9); Absolute Monocytes 0.1 K/uL (0.1-1.3); Absolute Neutrophil 10.1 K/uL (1.8-8.0); Basophils % 0.6 % (0-1.3); Hemoglobin 11.1 g/dL (12.0-15.0); Lymphocytes % 1.4 % (15.3-44.8); MCH 28.6 pg (27.0-35.0); MCHC 32.7 g/dL (32.0-36.0); MCV 87.7 fL (80-100); MPV 8.5 fL (7.6-11.3); Monocytes % 1.3 % (3.3-12.3); Neutrophils % 96.7 % (41.7-73.7); Nucleated Red Blood Cells % 0.3 % (0-0); Platelets 62 thou/uL (152-406); RBC Red Blood Cell Count 3.88 M/uL (3.86-4.86)
[2024-09-10] MEDS: KCL 20 MEQ/100 mL IVPB 20 MEQ/100 ML BAG IV SCH ×2 (06:44→22:00)
[2024-09-10 08:52] LABS: Blood Morphology Comment NOT SEEN (NOT SEEN); Platelet Estimate DECR; Platelets, Giant FEW; White Blood Cell Scan OK (OK)
[2024-09-10] MEDS ORDERED: SODIUM CHLORIDE 0.9% 10ML INJ IV PRN (10:51)
--- NOTE | 2024-09-10 10:58 | P.PN ---
Subjective Date of Service: 09/10/24 Primary Care Provider: Daron Chief Complaint: Respiratory failure pneumonia Patient is intermittently responsive still has some edema of her extremities unable to insert a Dobbhoff tube in Review of Systems is unable to be obtained Physical Examination - Vital Signs Temperature: 97.4 F Blood Pressure: 153/64 Pulse: 88 Respirations: 15 Pulse Ox (%): 99 - Physical Exam General: Delirious, Unresponsive Respiratory: Clear to auscultation bilaterally Cardiovascular: Regular rate/rhythm, Edema - Studies Medications List Reviewed: Yes Assessment And Plan - Current Problems (Diagnosis) (1) Pneumonia Current Visit: Yes Status: Acute Plan: Patient admitted with acute lung injury/ARDS quiring BiPAP intermittently responsive delirious will to insert a Dobbhoff tube cussed with daughter sinew with present therapy no hospice care decision yetWBC has declined . CW levaquin and TPN. Reduce lasix . PPI once a daily Qualifiers: Laterality: unspecified laterality Physician Review: Patient Assessed, Agree with Above Assessment and Plan
--- NOTE | 2024-09-10 11:30 | P.PN ---
Subjective Date of Service: 09/10/24 Primary Care Provider: Daron Chief Complaint: Respiratory failure pneumonia Subjective: No new changes Review of Systems is unable to be obtained Physical Examination - Vital Signs Temperature: 97.4 F Blood Pressure: 153/64 Pulse: 88 Respirations: 15 Pulse Ox (%): 99 - Physical Exam General: Alert, In no apparent distress HEENT: Atraumatic, PERRLA, EOMI Neck: Supple, JVD not distended Respiratory: Clear to auscultation bilaterally, Normal air movement Cardiovascular: Regular rate/rhythm, Normal S1 S2 Gastrointestinal: Normal bowel sounds, No tenderness Musculoskeletal: No tenderness Integumentary: No rashes Neurological: Normal speech, Normal tone, Normal affect Lymphatics: No axilla or inguinal lymphadenopathy - Studies Medications List Reviewed: Yes Assessment And Plan - Current Problems (Diagnosis) (1) Pneumonia Current Visit: No Status: Acute Plan: continue zosyn. Continue bipap No growth on blood cultures at this time Qualifiers: Pneumonia type: due to unspecified organism Laterality: bilateral Lung location: lower lobe of lung Qualified Code(s): J18.9 - Pneumonia, unspecified organism (2) Diastolic CHF Current Visit: Yes Status: Acute Plan: she has a troponin leak. Normal EKG. We can have cardiology look at her 09/09 will start some lasix to decrease her swelling. Will start a catapress patch to improve the htn. She is currently not able to take her oral medications. Qualifiers: Heart failure chronicity: chronic Qualified Code(s): I50.32 - Chronic diastolic (congestive) heart failure (3) Hypovolemic shock Current Visit: Yes Status: Acute Plan: start the patient on levophed. Hopefully we can wean her off with the prbc transfusion (4) Acute on chronic renal failure Current Visit: Yes Status: Acute Plan: creatine is improving with fluids and improved blood pressure. Will continue to monitor Qualifiers: Acute renal failure type: unspecified Chronic kidney disease stage: stage 4 (GFR 15-29) Qualified Code(s): N17.9 - Acute kidney failure, unspecified; N18.4 - Chronic kidney disease, stage 4 (severe) (5) GI bleed Current Visit: Yes Status: Acute Plan: will transfuse 2 units PRBC. Will await Dr. Ga. evaluation 09/09 hb stable Qualifiers: GI bleed type/associated pathology: unspecified gastrointestinal hemorrhage type Qualified Code(s): K92.2 - Gastrointestinal hemorrhage, unspecified Discharge Plan: Half-Way Plan to discharge in: Greater than 2 days - Code Status/Comfort Care Code Status Assessed: No Physician Review: Patient Assessed, Agree with Above Assessment and Plan Critical Care: Yes Time Spent Managing PTS Care (In Minutes): 20
[2024-09-10] MEDS: AMINO ACIDS 5 %/DEXTROSE 20 % 2,000 ML, Lipids 20% 250 ML with MULTIVITAMINS INJ 10 ML IV SCH (17:22)
[2024-09-10] MEDS: PANTOPRAZOLE 40 MG INJ IVP SCH (19:15)
[2024-09-10] MEDS: METHYLPREDNISOLONE 40 MG INJ IV SCH (19:45)
[2024-09-10 20:27] LABS: Anion Gap 10.4 mEq/L (5.0-15.0); Potassium 3.4 mEq/L (3.5-5.1)
[2024-09-10] MEDS: DEXMEDETOMIDINE HCL 200 MCG in NA CHLORIDE 0.9% 98 ML IV SCH (23:31)
[2024-09-11 05:51] LABS: Absolute Lymphocytes (CBC) 0.1 K/uL (0.7-4.9); Absolute Monocytes 0.1 K/uL (0.1-1.3); Absolute Neutrophil 9.1 K/uL (1.8-8.0); Basophils % 0.1 % (0-1.3); Hematocrit 32.4 % (36.0-45.0); Hemoglobin 10.5 g/dL (12.0-15.0); Lymphocytes % 1.4 % (15.3-44.8); MCH 28.7 pg (27.0-35.0); MCHC 32.3 g/dL (32.0-36.0); MCV 88.9 fL (80-100); MPV 9.2 fL (7.6-11.3); Monocytes % 1.6 % (3.3-12.3); Neutrophils % 96.9 % (41.7-73.7); Nucleated Red Blood Cells % 0.5 % (0-0); Platelets 55 thou/uL (152-406); RBC Red Blood Cell Count 3.64 M/uL (3.86-4.86); Red Cell Distribution Width 20.3 % (12.1-15.2)
[2024-09-11 06:18] LABS: Albumin 1.2 g/dL (3.4-5.0); Albumin/Globulin Ratio 0.4 (1.1-1.8); Anion Gap 9.7 mEq/L (5.0-15.0); Bilirubin Total 1.2 mg/dL (0.2-1.0); Globulin 3.2 g/dL (2.3-3.5); Magnesium 1.4 mg/dL (1.6-2.4); Phosphorus 2.1 mg/dL (2.5-4.9); Potassium 3.7 mEq/L (3.5-5.1); Prealbumin 7.5 mg/dL (20-40); Protein, Total 4.4 g/dL (6.4-8.2)
[2024-09-11] MEDS: POTASSIUM PHOS IN 0.9 % NACL 15 MMOL/250 ML BAG IV ONE (06:35)
[2024-09-11] MEDS: FUROSEMIDE 40 MG/4 ML VIAL IV SCH (08:48)
[2024-09-11] MEDS: Magnesium Sulfate 2gm IVPB 2 G/50 ML BAG IV ONE (08:48)
[2024-09-11] MEDS: PANTOPRAZOLE 40 MG INJ IVP SCH (08:48)
--- NOTE | 2024-09-11 09:08 | P.PN ---
Subjective Date of Service: 09/11/24 Primary Care Provider: Daron Chief Complaint: Respiratory failure pneumonia Subjective: No new changes patient agitated Placed on presidex drip Review of Systems is unable to be obtained Physical Examination - Vital Signs Temperature: 97.8 F Blood Pressure: 159/62 Pulse: 77 Respirations: 16 Pulse Ox (%): 100 - Physical Exam General: Unresponsive HEENT: Atraumatic, PERRLA, EOMI Neck: Supple, JVD not distended Respiratory: Clear to auscultation bilaterally, Normal air movement Cardiovascular: Regular rate/rhythm, Normal S1 S2 Gastrointestinal: Normal bowel sounds, No tenderness Musculoskeletal: No tenderness Integumentary: No rashes Neurological: Normal speech, Normal tone, Normal affect Lymphatics: No axilla or inguinal lymphadenopathy - Studies Microbiology Data (last 24 hrs): 09/06/24 05:15 Blood - Blood Aerobic Blood Culture - Final No growth in 5 days. 09/06/24 05:15 Blood - Blood Anaerobic Blood Culture - Final No growth in 5 days. 09/06/24 05:00 Blood - Blood Aerobic Blood Culture - Final No growth in 5 days. 09/06/24 05:00 Blood - Blood Anaerobic Blood Culture - Final No growth in 5 days. Medications List Reviewed: Yes Assessment And Plan - Current Problems (Diagnosis) (1) Pneumonia Current Visit: No Status: Acute Plan: continue levaquin. Continue bipap. Did not tolerate NC No growth on blood cultures at this time Patient is worsening. Will continue supportive care. daughter agreed to no code this Qualifiers: Pneumonia type: due to unspecified organism Laterality: bilateral Lung location: lower lobe of lung Qualified Code(s): J18.9 - Pneumonia, unspecified organism (2) Diastolic CHF Current Visit: Yes Status: Acute Plan: she has a troponin leak. Normal EKG. We can have cardiology look at her 09/09 will start some lasix to decrease her swelling. Will start a catapress patch to improve the htn. She is currently not able to take her oral medications. Qualifiers: Heart failure chronicity: chronic Qualified Code(s): I50.32 - Chronic diastolic (congestive) heart failure (3) Hypovolemic shock Current Visit: Yes Status: Resolved Plan: start the patient on levophed. Hopefully we can wean her off with the prbc transfusion (4) Acute on chronic renal failure Current Visit: Yes Status: Acute Plan: creatine is improving with fluids and improved blood pressure. Will continue to monitor Qualifiers: Acute renal failure type: unspecified Chronic kidney disease stage: stage 4 (GFR 15-29) Qualified Code(s): N17.9 - Acute kidney failure, unspecified; N18.4 - Chronic kidney disease, stage 4 (severe) (5) GI bleed Current Visit: Yes Status: Acute Plan: will transfuse 2 units PRBC. Will await Dr. Ga. evaluation 09/09 hb stable Qualifiers: GI bleed type/associated pathology: unspecified gastrointestinal hemorrhage type Qualified Code(s): K92.2 - Gastrointestinal hemorrhage, unspecified - Code Status/Comfort Care Code Status Assessed: No Physician Review: Patient Assessed, Agree with Above Assessment and Plan Critical Care: No Time Spent Managing PTS Care (In Minutes): 20
--- NOTE | 2024-09-11 11:43 | P.PN ---
Subjective Date of Service: 09/11/24 Primary Care Provider: Daron Chief Complaint: Respiratory failure pneumonia Patient is on BiPAP continues to remain delirious hypoxic on TPN started on Precedex last night due to severe agitation Review of Systems is unable to be obtained Physical Examination - Vital Signs Temperature: 97.8 F Blood Pressure: 159/62 Pulse: 77 Respirations: 16 Pulse Ox (%): 100 - Physical Exam General: Delirious, Unresponsive Respiratory: Clear to auscultation bilaterally Cardiovascular: Regular rate/rhythm, Normal S1 S2, Edema - Studies Microbiology Data (last 24 hrs): 09/06/24 05:15 Blood - Blood Aerobic Blood Culture - Final No growth in 5 days. 09/06/24 05:15 Blood - Blood Anaerobic Blood Culture - Final No growth in 5 days. 09/06/24 05:00 Blood - Blood Aerobic Blood Culture - Final No growth in 5 days. 09/06/24 05:00 Blood - Blood Anaerobic Blood Culture - Final No growth in 5 days. Medications List Reviewed: Yes Assessment And Plan - Current Problems (Diagnosis) (1) Pneumonia Current Visit: Yes Status: Acute Plan: Patient is s/p ARDS various Precedex white count is now normal renal function stabilized LFTs are improving no signs stable plan to try flow oxygen cultures are negative chest x-ray ordered Qualifiers: Laterality: unspecified laterality Physician Review: Patient Assessed, Agree with Above Assessment and Plan
--- NOTE | 2024-09-11 12:59 | RAD REPORT ---
Procedure: Chest Single View HISTORY: Cough COMPARISON: September 09, 2024 FINDINGS: Mild improvement in extensive bilateral pulmonary opacities No significant pleural effusion noted. The heart is normal size. IMPRESSION: Mild improvement in the extensive bilateral pulmonary opacities probably pneumonia
[2024-09-11] MEDS: DEXMEDETOMIDINE HCL 1,000 MCG in NA CHLORIDE 0.9% 490 ML IV SCH (14:06)
[2024-09-11] MEDS: INSULIN REGULAR (HUMAN) 100 UNIT/ML SQ SCH (14:51)
[2024-09-11] MEDS: AMINO ACIDS 5 %/DEXTROSE 20 % 2,000 ML, Lipids 20% 250 ML with MULTIVITAMINS INJ 10 ML IV SCH (16:56)
[2024-09-12 06:06] LABS: Absolute Lymphocytes (CBC) 0.1 K/uL (0.7-4.9); Absolute Monocytes 0.1 K/uL (0.1-1.3); Absolute Neutrophil 8.2 K/uL (1.8-8.0); Hematocrit 28.6 % (36.0-45.0); Hemoglobin 9.4 g/dL (12.0-15.0); Lymphocytes % 1.3 % (15.3-44.8); MCH 28.8 pg (27.0-35.0); MCHC 32.8 g/dL (32.0-36.0); MCV 87.5 fL (80-100); MPV 10.1 fL (7.6-11.3); Monocytes % 1.2 % (3.3-12.3); Neutrophils % 97.5 % (41.7-73.7); Nucleated Red Blood Cells % 0.2 % (0-0); Platelets 49 thou/uL (152-406); RBC Red Blood Cell Count 3.27 M/uL (3.86-4.86); Red Cell Distribution Width 19.4 % (12.1-15.2)
[2024-09-12 06:16] LABS: Albumin 1.1 g/dL (3.4-5.0); Albumin/Globulin Ratio 0.4 (1.1-1.8); Anion Gap 8.6 mEq/L (5.0-15.0); Bilirubin Total 0.7 mg/dL (0.2-1.0); Globulin 2.9 g/dL (2.3-3.5); Magnesium 1.7 mg/dL (1.6-2.4); Phosphorus 1.6 mg/dL (2.5-4.9)
[2024-09-12 06:18] LABS: Potassium 2.6 mEq/L (3.5-5.1)
[2024-09-12] MEDS: KCL 20 MEQ/100 mL IVPB 20 MEQ/100 ML BAG IV SCH (06:28)
[2024-09-12] MEDS: POTASSIUM PHOS IN 0.9 % NACL 15 MMOL/250 ML BAG IV ONE (06:28)
--- NOTE | 2024-09-12 07:09 | RAD REPORT ---
Procedure: Chest Single View HISTORY: Cough COMPARISON: September 11, 2024 FINDINGS: Mild improvement in the diffuse bilateral pulmonary opacities which are moderate. No significant pleural effusion noted. The heart is mildly enlarged IMPRESSION: Mild improvement in the diffuse bilateral pulmonary opacities probably pneumonia
--- NOTE | 2024-09-12 08:34 | P.PN ---
Subjective Date of Service: 09/12/24 Primary Care Provider: Daron Chief Complaint: Respiratory failure pneumonia Subjective: No new changes patient agitated Placed on presidex drip Review of Systems is unable to be obtained Physical Examination - Vital Signs Temperature: 97.3 F Blood Pressure: 135/42 Pulse: 59 Respirations: 13 Pulse Ox (%): 95 - Physical Exam General: Alert, In no apparent distress HEENT: Atraumatic, PERRLA, EOMI Neck: Supple, JVD not distended Respiratory: Clear to auscultation bilaterally, Normal air movement Cardiovascular: Regular rate/rhythm, Normal S1 S2 Gastrointestinal: Normal bowel sounds, No tenderness Musculoskeletal: No tenderness Integumentary: No rashes Neurological: Normal speech, Normal tone, Normal affect Lymphatics: No axilla or inguinal lymphadenopathy - Studies Microbiology Data (last 24 hrs): 09/06/24 05:15 Blood - Blood Aerobic Blood Culture - Final No growth in 5 days. 09/06/24 05:15 Blood - Blood Anaerobic Blood Culture - Final No growth in 5 days. 09/06/24 05:00 Blood - Blood Aerobic Blood Culture - Final No growth in 5 days. 09/06/24 05:00 Blood - Blood Anaerobic Blood Culture - Final No growth in 5 days. Medications List Reviewed: Yes Assessment And Plan - Current Problems (Diagnosis) (1) Pneumonia Current Visit: No Status: Acute Plan: continue levaquin. Continue bipap. Did not tolerate NC No growth on blood cultures at this time Patient is worsening. Will continue supportive care. daughter agreed to no code this 09.12 Patient is not improving. Possible hospice patient. will discuss with Dr. Coley Qualifiers: Pneumonia type: due to unspecified organism Laterality: bilateral Lung location: lower lobe of lung Qualified Code(s): J18.9 - Pneumonia, unspecified organism (2) Diastolic CHF Current Visit: Yes Status: Acute Plan: she has a troponin leak. Normal EKG. We can have cardiology look at her 09/09 will start some lasix to decrease her swelling. Will start a catapress patch to improve the htn. She is currently not able to take her oral medications. Qualifiers: Heart failure chronicity: chronic Qualified Code(s): I50.32 - Chronic diastolic (congestive) heart failure (3) Hypovolemic shock Current Visit: Yes Status: Resolved Plan: start the patient on levophed. Hopefully we can wean her off with the prbc tra nsfusion (4) Acute on chronic renal failure Current Visit: Yes Status: Acute Plan: creatine is improving with fluids and improved blood pressure. Will continue to monitor Qualifiers: Acute renal failure type: unspecified Chronic kidney disease stage: stage 4 (GFR 15-29) Qualified Code(s): N17.9 - Acute kidney failure, unspecified; N18.4 - Chronic kidney disease, stage 4 (severe) (5) GI bleed Current Visit: Yes Status: Acute Plan: will transfuse 2 units PRBC. Will await Dr. Ga. evaluation 09/09 hb stable Qualifiers: GI bleed type/associated pathology: unspecified gastrointestinal hemorrhage type Qualified Code(s): K92.2 - Gastrointestinal hemorrhage, unspecified Discharge Plan: Home Plan to discharge in: Greater than 2 days - Code Status/Comfort Care Code Status Assessed: No Physician Review: Patient Assessed, Agree with Above Assessment and Plan Critical Care: Yes Time Spent Managing PTS Care (In Minutes): 20
[2024-09-12] MEDS: MAGNESIUM SULFATE 1 gm IVPB 1 GM/100 ML BAG IV ONE (09:10)
--- NOTE | 2024-09-12 12:36 | P.PN ---
Subjective Date of Service: 09/12/24 Primary Care Provider: Daron Chief Complaint: Respiratory failure pneumonia No change in patient's condition she continues to remain delirious tachypneic unable to tolerate being off the BiPAP Review of Systems is unable to be obtained Physical Examination - Vital Signs Temperature: 97.3 F Blood Pressure: 135/42 Pulse: 59 Respirations: 13 Pulse Ox (%): 95 - Physical Exam General: Delirious, Unresponsive Respiratory: Clear to auscultation bilaterally Cardiovascular: No edema, Regular rate/rhythm, Normal S1 S2 - Studies Medications List Reviewed: Yes Assessment And Plan - Current Problems (Diagnosis) (1) Respiratory failure Current Visit: Yes Status: Acute Plan: Patient is 69 years of age with respiratory failure pneumonia continues to remain delirious baseline condition is very poor she suffers from severe depression and anxiety severe asthma exacerbations recently has been declining mildly anemic his blood sugars are very high will DC steroids changed to nebulized be done as patient refused a nasogastric tube is on TPN patient is on low doses of Solu-Medrol. An LTAC count is normal Qualifiers: Chronicity: acute Physician Review: Patient Assessed, Agree with Above Assessment and Plan
[2024-09-12] MEDS: Magnesium Sulfate 2gm IVPB 2 G/50 ML BAG IV ONE (16:13)
[2024-09-12] MEDS: KCL 20 MEQ/100 mL IVPB 100 ML IV ONE (16:14)
[2024-09-12] MEDS: AMINO ACIDS 5 %/DEXTROSE 20 % 2,000 ML IV SCH (19:17)
[2024-09-12] MEDS: BUDESONIDE 0.5 MG/2 ML NEB NEB SCH (19:49)
[2024-09-12] MEDS: IPRATROPIUM BROM 0.5MG/2.5ML ONE (20:50)
[2024-09-12] MEDS: ALBUTEROL 2.5 MG/3 ML NEB SOL ONE (20:50)
[2024-09-12 22:22] LABS: Anion Gap 12.6 mEq/L (5.0-15.0); Potassium 3.6 mEq/L (3.5-5.1)
[2024-09-13] MEDS: KCL 20 MEQ/100 mL IVPB 20 MEQ/100 ML BAG IV SCH
[2024-09-13 05:41] LABS: Absolute Lymphocytes (CBC) 0.2 K/uL (0.7-4.9); Absolute Monocytes 0.2 K/uL (0.1-1.3); Absolute Neutrophil 12.6 K/uL (1.8-8.0); Hematocrit 30.5 % (36.0-45.0); Hemoglobin 9.8 g/dL (12.0-15.0); Lymphocytes % 1.3 % (15.3-44.8); MCH 28.1 pg (27.0-35.0); MCV 87.9 fL (80-100); MPV 11.1 fL (7.6-11.3); Monocytes % 1.5 % (3.3-12.3); Neutrophils % 97.2 % (41.7-73.7); Nucleated Red Blood Cells % 0.2 % (0-0); Platelets 60 thou/uL (152-406); RBC Red Blood Cell Count 3.47 M/uL (3.86-4.86); Red Cell Distribution Width 19.4 % (12.1-15.2)
[2024-09-13 05:56] LABS: Anion Gap 8.9 mEq/L (5.0-15.0); Magnesium 1.7 mg/dL (1.6-2.4); Potassium 3.9 mEq/L (3.5-5.1)
[2024-09-13 06:00] LABS: Phosphorus 1.2 mg/dL (2.5-4.9)
[2024-09-13] MEDS: POTASSIUM PHOS IN 0.9 % NACL 15 MMOL/250 ML BAG IV ONE (06:23)
--- NOTE | 2024-09-13 06:57 | RAD REPORT ---
EXAM: Chest Single View HISTORY: pneumonia COMPARISON: 09/12/2024 FINDINGS: LUNGS/PLEURA: Widespread interstitial and airspace disease similar to 09/12/2024. MEDIASTINUM: The mediastinal silhouette is within normal limits. CARDIAC: Stable size and configuration. UPPER ABDOMEN: No significant abnormality. BONES: No acute abnormality. LINES/TUBES/OTHER: N/A IMPRESSION: Similar aeration compared with 09/12/2024 with widespread interstitial and airspace disease that may r eflect edema and/or multifocal pneumonia.
[2024-09-13] MEDS: MAGNESIUM SULFATE 1 gm IVPB 1 GM/100 ML BAG IV ONE (08:17)
--- NOTE | 2024-09-13 08:42 | P.PN ---
Subjective Date of Service: 09/13/24 Primary Care Provider: Daron Chief Complaint: Respiratory failure pneumonia patient agitated Placed on presidex drip Review of Systems is unable to be obtained Physical Examination - Vital Signs Temperature: 97.2 F Blood Pressure: 112/47 Pulse: 87 Respirations: 16 Pulse Ox (%): 98 - Physical Exam General: Alert, In no apparent distress HEENT: Atraumatic, PERRLA, EOMI Neck: Supple, JVD not distended Respiratory: Clear to auscultation bilaterally, Normal air movement Cardiovascular: Regular rate/rhythm, Normal S1 S2 Gastrointestinal: Normal bowel sounds, No tenderness Musculoskeletal: No tenderness Integumentary: No rashes Neurological: Normal speech, Normal tone, Normal affect Lymphatics: No axilla or inguinal lymphadenopathy - Studies Medications List Reviewed: Yes Assessment And Plan - Current Problems (Diagnosis) (1) Pneumonia Current Visit: No Status: Acute Plan: continue levaquin. Continue bipap. Did not tolerate NC No growth on blood cultures at this time Patient is worsening. Will continue supportive care. daughter agreed to no code this weekend 09.12 Patient is not improving. Possible hospice patient. will discuss with Dr. Coley Qualifiers: Pneumonia type: due to unspecified organism Laterality: bilateral Lung location: lower lobe of lung Qualified Code(s): J18.9 - Pneumonia, unspecified organism (2) Diastolic CHF Current Visit: Yes Status: Acute Plan: she has a troponin leak. Normal EKG. We can have cardiology look at her 09/09 will start some lasix to decrease her swelling. Will start a catapress patch to improve the htn. She is currently not able to take her oral medications. Qualifiers: Heart failure chronicity: chronic Qualified Code(s): I50.32 - Chronic diastolic (congestive) heart failure (3) Hypovolemic shock Current Visit: Yes Status: Resolved Plan: start the patient on levophed. Hopefully we can wean her off with the prbc transfusion (4) Acute on chronic renal failure Current Visit: Yes Status: Acute Plan: creatine is improving with fluids and improved blood pressure. Will continue to monitor Qualifiers: Acute renal failure type: unspecified Chronic kidney disease stage: stage 4 (GFR 15-29) Qualified Code(s): N17.9 - Acute kidney failure, unspecified; N18.4 - Chronic kidney disease, stage 4 (severe) (5) GI bleed Current Visit: Yes Status: Acute Plan: will transfuse 2 units PRBC. Will await Dr. Ga. evaluation 09/09 hb stable Qualifiers: GI bleed type/associated pathology: unspecified gastrointestinal hemorrhage type Qualified Code(s): K92.2 - Gastrointestinal hemorrhage, unspecified Discharge Plan: [facility] Plan to discharge in: Greater than 2 days - Code Status/Comfort Care Code Status Assessed: No Physician Review: Patient Assessed, Agree with Above Assessment and Plan Critical Care: Yes Time Spent Managing PTS Care (In Minutes): 20
[2024-09-13] MEDS: INSULIN GLARGINE 100 UNIT/ML SQ SCH ×2 (09:31→12:45)
[2024-09-13] MEDS: CALCIUM GLUCONATE 1 GM IVPB 1 GM/50 ML BAG IV ONE (09:31)
[2024-09-13] MEDS: INSULIN REGULAR (HUMAN) 100 UNIT/ML SQ SCH (09:31)
[2024-09-13 10:18] LABS: Anisocytosis 1+; Blood Morphology Comment NOTED (NOT SEEN); Platelet Estimate DECR; Toxic Granulation 1+; White Blood Cell Scan OK (OK)
[2024-09-13 10:19] LABS: Teardrop Cell FEW
--- NOTE | 2024-09-13 11:25 | P.PN ---
Subjective Date of Service: 09/13/24 Primary Care Provider: Daron Chief Complaint: Respiratory failure pneumonia More alert responsive cooperative today sugars are very high Review of Systems is unable to be obtained Physical Examination - Vital Signs Temperature: 97.2 F Blood Pressure: 134/42 Pulse: 89 Respirations: 17 Pulse Ox (%): 100 - Physical Exam General: Alert, Cooperative Respiratory: Clear to auscultation bilaterally Cardiovascular: No edema, Regular rate/rhythm, Normal S1 S2 - Studies Medications List Reviewed: Yes Assessment And Plan - Current Problems (Diagnosis) (1) Respiratory failure Current Visit: Yes Status: Acute Plan: Patient admitted with respiratory failure and acute lung injury responsive today plan to decrease the dose of Solu-Medrol increase insulin sugars are very high oxygenation satisfactory trial of BiPAP advance diet as tolerated labs reviewed white count is mildly elevated creatinine is improving Qualifiers: Chronicity: acute Physician Review: Patient Assessed, Agree with Above Assessment and Plan
[2024-09-13] MEDS: FLUCONAZOLE 200mg IVPB 200 MG/100 ML BAG IV SCH (15:53)
[2024-09-13 22:57] LABS: Anion Gap 8.9 mEq/L (5.0-15.0); Potassium 3.9 mEq/L (3.5-5.1)
[2024-09-14 05:59] LABS: Absolute Lymphocytes (CBC) 0.3 K/uL (0.7-4.9); Absolute Monocytes 0.3 K/uL (0.1-1.3); Absolute Neutrophil 12.7 K/uL (1.8-8.0); Basophils % 0.2 % (0-1.3); Hematocrit 28.4 % (36.0-45.0); Hemoglobin 9.3 g/dL (12.0-15.0); Lymphocytes % 2.2 % (15.3-44.8); MCH 28.8 pg (27.0-35.0); MCHC 32.7 g/dL (32.0-36.0); MPV 10.1 fL (7.6-11.3); Monocytes % 2.2 % (3.3-12.3); Neutrophils % 95.4 % (41.7-73.7); Nucleated Red Blood Cells % 0.1 % (0-0); Platelets 78 thou/uL (152-406); RBC Red Blood Cell Count 3.23 M/uL (3.86-4.86); Red Cell Distribution Width 19.4 % (12.1-15.2)
[2024-09-14 06:08] LABS: Magnesium 1.7 mg/dL (1.6-2.4)
[2024-09-14 06:13] LABS: Phosphorus 1.5 mg/dL (2.5-4.9)
[2024-09-14] MEDS ORDERED: MAGNESIUM SULFATE 1 gm IVPB 1 GM/100 ML BAG IV ONE (07:00)
[2024-09-14 08:04] VITALS: BMI 24.3
[2024-09-14] MEDS: SODIUM PHOSPHATE 30 MM in NA CHLORIDE 0.9% 500 ML IV ONE (08:14)
[2024-09-14] MEDS: MAGNESIUM SULFATE 1 gm IVPB 1 GM/100 ML BAG IV ONE (08:14)
[2024-09-14] MEDS: METHYLPREDNISOLONE 40 MG INJ IV SCH (08:15)
--- NOTE | 2024-09-14 12:52 | P.PN ---
Subjective Date of Service: 09/14/24 Primary Care Provider: Daron Chief Complaint: Respiratory failure pneumonia No change in patient's condition she continues to deteriorate intermittently responsive requiring constant BiPAP Review of Systems is unable to be obtained Physical Examination - Vital Signs Temperature: 96.3 F Blood Pressure: 154/47 Pulse: 85 Respirations: 16 Pulse Ox (%): 98 - Physical Exam General: Unresponsive Respiratory: Clear to auscultation bilaterally, Diminished Cardiovascular: No edema, Regular rate/rhythm, Normal S1 S2 - Studies Medications List Reviewed: Yes Assessment And Plan - Current Problems (Diagnosis) (1) Respiratory failure Current Visit: Yes Status: Acute Plan: Patient has ARDS respiratory failure requiring constant BiPAP prognosis poor due to progressive decline is currently on TPN labs reviewed chest x-ray no change diffuse bilateral changes blood sugars have been controlled need to discuss with daughter regarding hospice care and comfort measures Qualifiers: Chronicity: acute Physician Review: Patient Assessed, Agree with Above Assessment and Plan
[2024-09-14 21:05] VITALS: TEMP 97.2; O2SAT 93
[2024-09-14 22:22] VITALS: BP 132/43
[2024-09-15] MEDS ORDERED: INSULIN GLARGINE 100 UNIT/ML SQ SCH (09:00)
[2024-09-16] MEDS ORDERED: CLONIDINE 0.1 MG/PATCH TD SCH (09:00)
--- NOTE | 2024-09-18 12:48 | EKG ---
Test Date: 2024-09-08 Test Time: 08:41:45 Vacuum Metalizer Operator: CATHLEEN MEASUREMENT RESULTS: Intervals: Rate: 100 FL: 178 QRSD: 126 QT: 382 QTc: 492 [place]: P: 58 FL: 178 QRS: 28 T: 224 INTERPRETIVE STATEMENTS: Normal sinus rhythm Nonspecific intraventricular block Cannot rule out Anterior infarct, age undetermined T wave abnormality, consider inferolateral ischemia Abnormal ECG Compared to ECG 09/06/2024 03:15:36 Myocardial infarct finding now present T-wave abnormality now present Left bundle-branch block no longer present ST (T wave) deviation no longer present Prolonged QT interval no longer present Possible ischemia still present Electronically Signed On 09-18-24 12:23:58 SPOOL TENDER by Jesus Santana
--- NOTE | 2024-09-18 12:59 | EKG ---
Test Date: 2024-09-06 Test Time: 03:15:36 Colorer: HIRAM MEASUREMENT RESULTS: Intervals: Rate: 83 LA: 174 QRSD: 118 QT: 454 QTc: 533 [place]: P: 56 LA: 174 QRS: 15 T: 139 INTERPRETIVE STATEMENTS: Normal sinus rhythm Incomplete left bundle branch block ST & T wave abnormality, consider lateral ischemia Prolonged QT Abnormal ECG Compared to ECG 06/25/2024 13:40:47 Left bundle-branch block now present Prolonged QT interval now present Sinus tachycardia no longer present Left ventricular hypertrophy no longer present ST (T wave) deviation still present Possible ischemia still present Electronically Signed On 09-18-24 12:28:50 CORRUGATED BOX MACHINE OPERATOR by Jesus Santana
== END 2024-09-14 22:00 | disposition hospice, inpatient (51) | DRG 871 ==
LOC: ER 01:30 → ERHOLD 06:26 → 3RD-ICU 07:31
PROVIDERS: ADMIT Internal Medicine; ATTEND Hospitalist
PROC: 4A033R1 Measurement of Arterial Saturation, Peripheral, Percutaneous Approach (ICD-10-PCS; principal; 2024-09-06)
PROC: 30233N1 Transfusion of Nonautologous Red Blood Cells into Peripheral Vein, Percutaneous Approach (ICD-10-PCS; 2024-09-06)
PROC: 0T9B70Z Drainage of Bladder with Drainage Device, Via Natural or Artificial Opening (ICD-10-PCS; 2024-09-06)
PROC: 3E033XZ Introduction of Vasopressor into Peripheral Vein, Percutaneous Approach (ICD-10-PCS; 2024-09-06)
PROC: 3E0336Z Introduction of Nutritional Substance into Peripheral Vein, Percutaneous Approach (ICD-10-PCS; 2024-09-06)
PROC: 02HV33Z Insertion of Infusion Device into Superior Vena Cava, Percutaneous Approach (ICD-10-PCS; 2024-09-06)
PROC: 5A09557 Assistance with Respiratory Ventilation, Greater than 96 Consecutive Hours, Continuous Positive Airway Pressure (ICD-10-PCS; 2024-09-07)
DX: A41.9 Sepsis, unspecified organism (principal); I21.A1 Myocardial infarction type 2; J15.9 Unspecified bacterial pneumonia; R57.1 Hypovolemic shock; R65.21 Severe sepsis with septic shock; J80 Acute respiratory distress syndrome; E44.0 Moderate protein-calorie malnutrition; N17.9 Acute kidney failure, unspecified; K92.1 Melena; J44.0 Chronic obstructive pulmonary disease with (acute) lower respiratory infection; I50.32 Chronic diastolic (congestive) heart failure; I13.0 Hypertensive heart and chronic kidney disease with heart failure and stage 1 through stage 4 chronic kidney disease, or unspecified chronic kidney disease; N18.4 Chronic kidney disease, stage 4 (severe); D63.1 Anemia in chronic kidney disease; L89.322 Pressure ulcer of left buttock, stage 2; K21.9 Gastro-esophageal reflux disease without esophagitis; M81.0 Age-related osteoporosis without current pathological fracture; Z66 Do not resuscitate; Z68.21 Body mass index [BMI] 21.0-21.9, adult; Z88.6 Allergy status to analgesic agent; Z88.8 Allergy status to other drugs, medicaments and biological substances; Z79.52 Long term (current) use of systemic steroids; Z79.899 Other long term (current) drug therapy; Z90.49 Acquired absence of other specified parts of digestive tract; Z79.02 Long term (current) use of antithrombotics/antiplatelets
CPT/HCPCS: 36415; 36556; 36600; 70450; 71045; 71250; 74176; 80048; 80053; 80076; 80202; 81001; 82805; 82947; 83605; 83735; 84100; 84134; 84443; 84478; 84484; 85014; 85018; 85025; 85027; 85610; 85730; 86850; 86900; 86901; 86920; 87040; 93005; 94640; 94660; 96361; 96374; 96375; 99291; J0360; J0612; J0696; J1450; J1940; J2354; J2470; J2543; J2919; J3411; J3430; J3475; J3480; J7030; J7040; J7050; J7613; J7626; J7644; P9016

== ENCOUNTER 2024-09-15 00:15 | Inpatient (IN) | payer OTHER ==
[2024-09-15] MEDS ORDERED: ONDANSETRON 4 MG (ODT) TAB PO PRN (00:39)
[2024-09-15] MEDS ORDERED: ACETAMINOPHEN 650MG/RECT SUPP PR PRN (00:39)
[2024-09-15] MEDS ORDERED: BISACODYL 10 MG RECTAL SUPP PR PRN (00:39)
[2024-09-15] MEDS: HYDROMORPHONE HCL 2 MG/ML inj IV PRN (01:20)
[2024-09-15] MEDS: LORazepam 2 MG/ML VIAL IV PRN (01:49)
[2024-09-15] MEDS: SCOPOLAMINE HYDROBROMIDE PATCH TD SCH (08:46)
[2024-09-15 09:13] VITALS: BP 106/47; TEMP 98.3
--- NOTE | 2024-09-18 17:33 | P.SSS ---
Patient History Date of Service: 09/18/24 Reason for admission: HOSPICE FOR REPIRATORY FAILURE History of Present Illness: CORNELIO HAS SEVERE COPD AND ARDS. FAMILY ASKED FOR HOSPICE PATIENT FAILED TO RECOVER. SHE IS [facility] BOUND PATIENT. Allergies aspirin Allergy (Intermediate, Verified 11/07/12 16:55) Anaphylaxis bacitracin [From Neosporin ([id number])] Allergy (Intermediate, Verified 11/07/12 16:55) aquino skin bacitracin zinc [From Neosporin ([id number])] Allergy (Intermediate, Verified 11/07/12 16:55) aquino skin neomycin sulfate [From Neosporin ([id number])] Allergy (Intermediate, Verified 11/07/12 16:55) aquino skin polymyxin B [From Neosporin ([id number])] Allergy (Intermediate, Verified 11/07/12 16:55) aquino skin NSAIDS Allergy (Severe, Uncoded 03/29/24 04:24) Anaphylaxis Neosporin ([id number]) Allergy (Uncoded 06/03/18 18:20) Itching Home Medications: Fluticasone/Umeclidin/Vilanter [Trelegy Ellipta 100-62.5-25] 1 puff PO BEDTIME PRN 07/17/22 Venlafaxine HCl *Xr* [Effexor XR] 150 mg PO DAILY 03/29/24 Amiodarone HCl [Cordarone*] 200 mg PO BID #180 tab 07/13/24 Clopidogrel Bisulfate [Plavix*] 75 mg PO DAILY #90 tab 07/13/24 Acetaminophen 325 mg PO Q6H PRN 09/06/24 Albuterol Sulfate [Proair Respiclick] 2 puff IH Q6H PRN 09/06/24 Apixaban [Eliquis] 2.5 mg PO BID 09/06/24 Atorvastatin Calcium [Lipitor] 20 mg PO BEDTIME 09/06/24 Benzonatate [Tessalon Perle*] 200 mg PO Q8H PRN 09/06/24 Buprenorphine HCl/Naloxone HCl [Buprenorphin-Naloxon 8-2 mg Sl] 1 each SL DAILY 09/06/24 Dapagliflozin Propanediol [Farxiga] 5 mg PO DAILY 09/06/24 Ferrous Sulfate 325 mg PO DAILY 09/06/24 Insulin Glargine,Hum.rec.anlog [Lantus Solostar] 8 unit SQ DAILY 09/06/24 Insulin Regular, Human [Novolin R] See Protocol SQ ACHS 09/06/24 Levalbuterol [Xopenex*] 1 dose IH QID 09/06/24 Metoprolol Tartrate [Lopressor*] 25 mg PO BID 09/06/24 Pantoprazole Sodium [Protonix] 40 mg PO DAILY 09/06/24 Sennosides [Senokot] 8.6 mg PO BID 09/06/24 Sertraline [Zoloft] 100 mg PO BEDTIME 09/06/24 - Past Medical/Surgical History Diabetic: No -: Asthma -: Depression -: Osteoporosis -: GERD with hiatal hernia -: Obesity -: Hypertension -: ADHD -: Cardiac arrest 2023 -: -: Tubal ligation -: cholecystectomy -: cataract surgery -: rt shoulder sx x2 -: sx on left knee Psychosocial/ Personal History: Patient is . She has 1 child. She is retired. - Family History Mother -: Heart disease, Hypertension, Diabetes Father -: Heart disease, Hypertension, Lung disease, Cancer, Other (see notes) Notes: asbestosis - Social History Alcohol use: No CD- Drugs: No Caffeine use: Yes Review of Systems is unable to be obtained Physical Examination - Vital Signs Temperature: 98.3 F Blood Pressure: 106/47 Pulse: 96 Respirations: 27 Pulse Ox (%): 92 - Physical Exam General: Comatose, Other HEENT: Atraumatic, PERRLA, Mucous membr. moist/pink, EOMI, Sclerae nonicteric Neck: Supple, 2+ carotid pulse no bruit, No LAD, Without JVD or thyroid abnormality Respiratory: Diminished (RAPID BREATHING.) Cardiovascular: Regular rate/rhythm, Normal S1 S2 Gastrointestinal: Normal bowel sounds, No tenderness Musculoskeletal: No tenderness Integumentary: No rashes Neurological: Normal gait, Normal speech, Normal strength at 5/5 x4 extr, Normal tone, Normal affect Lymphatics: No axilla or inguinal lymphadenopathy - Diagnosis (Problem(s)) (1) ARDS (adult respiratory distress syndrome) Status: Acute Plan: PATIENT IS TERMNIAL WITH ARDS SHE IS COMATOSE I SAW HER IN ICU SHE ON THE SAME DAY EXPECTED. - Disposition Disposition: Condition:
== END 2024-09-15 14:50 | disposition expired | DRG 951 ==
LOC: 3RD-ICU 00:15
PROVIDERS: ADMIT Internal Medicine; ATTEND Internal Medicine
DX: Z51.5 Encounter for palliative care (principal)
CPT/HCPCS: J1171